=== PATIENT | female | born 1955 | race Caucasian/White ===

== ENCOUNTER → 2016-09-28 | Outpatient (REF) | payer OTHER ==
[~2016-09-28] MED LIST: /ADVA50050 INH; /METO25TA PO; /ONDA4TA OR; /PANT40TA PO; /VERA12TA PO; ABIL15TA OR; ABIL15TA PO; ABIL15TA2 PO; ABIL5TAB PO; ABIL5TAB5 PO; ACET-654 PO; ACET65TA OR; ALAV10TA PO; ALAV10TA10 PO; ALBU17IN INH; ALBU17IN2 INH; ALBU83IN IN; ALBU83IN INH; ALBUTEROL INH; ALDA25TA2 OR; ALDA25TA2 PO; ALDA50TA2 PO; ALPR0.5T3 OR; AMAR1TAB PO; AMBI10TA PO; AMBI5TAB OR; APRESOLINE PO; ASMA1AER3 INH; ASPI81CH32 PO; ASPI81TA45 OR; ASPI81TA7 PO; ATROVENT0.02% INH; BACIDCA PO; BACITAB PO; BACITAB3 PO; BACT2CRE EX; CALA120T2 OR; CALA120T2 PO; CALA180T PO; CALCCHW12 OR; CALCD50TA PO; CEPHULAC PO; CIPR500T4 OR; CLAR10CA3 PO; CLAR5CHW OR; CLON0.5T PO; CLOTR1CR TOP; COLA100C2 OR; COMBIN INH; COMBVENT INH; DOCU10CA PO; DOXY100C PO; DULC10SU2 PR; EUCECRE3 TOP; FERR325T OR; FERR325T3 PO; FLEEENE4 PR; FLEX10TA2 PO; FLEXERIL PO; FLON0.05; FLUO10CA8 PO; FLUO20CA8 PO; FLUO40CA57 PO; FLUT22IN INH; GABA-279 PO; GABA-283 PO; GABA300C3 PO; GLIM2TA PO; GLUC1INJ11 SC; GLUC4CHW PO; INSUDET SC; JANU100T PO; JANUVIA PO; K-TA10TA2 PO; KEFL500C OR; KEFL500C7 PO; KLON0.5T PO; KLOR1TAB69 PO; LACT10SO29 PO; LACT20EL PO; LASI20TA PO; LASI40TA OR; LASI40TA PO; LASI80TA PO; LEVA500T PO; LEVO25TA5 PO; LEVO50TA45 PO; LEVO750T33 PO; LIDO1DIS2 TD; LIPI20TA PO; LISI20TA5 OR; LORT1TAB2 PO; LOVE1INJ SC; MAGN400C PO; MAGN400C2 PO; MAGN64TASA PO; MENEST OR; MENEST PO; MICR10CA PO; MILKSUS OR; MILKSUS PO; MIRA33504 PO; MIRALEX PO; MORP10SO OR; MS C15TA5 OR; NEUR600T OR; NYAM10003 EXT; NYST10006 TOP; NYSTATIN POWDER TOP; NYSTATIN TOP; OMEP20TA7 OR; OXYC10TA12 OR; PERC5TAB6 PO; POTA20TA PO; PRIL20CA OR; PRIL20CA PO; PROA1AER INH; PROAAER INH; PROT1TAB2 PO; PROZ10CA PO; PROZ20CA OR; PROZ40CA PO; RANI300T PO; ROZEREM PO; SENO8.6T10 PO; SPIR50TA2 PO; STRI1AER2 INH; SYNT25TA PO; TIOT18INH INH; TIZA2CAP3 PO; TOUJ1.2I SC; TRAM50TA2 PO; TYLE325T5 PO; TYLE325T5 PR; TYLE500T78 PO; TYLE650T30 PO; ULTR50TA PO; VERA120C PO; VERA120T OR; VERA1TAB10 PO; VICODINES TAB OR; VITA100066 PO; VITA100T OR; VITA20008 PO; VITAMIN D50000 UNT OR; XANA0.5T OR; XIFA550T PO; XOPEAER INH; Xifaxan PO; ZANA2CAP PO; ZANA4CAP OR; ZANAFLEX PO; ZANT300T PO; ZOFR20TA PO; [UNRECOGNIZED DRUG - CODE] PO; [UNRECOGNIZED DRUG - CODE] TOP; [UNRECOGNIZED DRUG - CODE] TOP; [UNRECOGNIZED DRUG - OTHER] IV; [UNRECOGNIZED DRUG - OTHER] PO; [UNRECOGNIZED DRUG - OTHER] PO; [UNRECOGNIZED DRUG - SUPPLY]; cephulac PO; mycostatin TOP
[2016-09-28 15:54] LABS: ALBUMIN 2.8 GM/DL (3.2-5.2); ALBUMIN/GLOBULIN RATIO 0.56 (1.00-1.93); BILIRUBIN,TOTAL 0.9 MG/DL (0.2-1.0); CALCIUM LEVEL 8.8 MG/DL (8.8-10.2); CREATININE FOR GFR 1.07 MG/DL (0.55-1.02); FREE T4 1.24 NG/DL (0.76-1.46); GLOMERULAR FILTRATION RATE 55.5 (>45); MAGNESIUM LEVEL 1.6 MG/DL (1.8-2.4); PERCENT SATURATION 37.7 % (13.2-37.4); POTASSIUM SERUM 3.6 MEQ/L (3.5-5.1); TOTAL PROTEIN 7.8 GM/DL (6.4-8.2)
== END ==
LOC: M SFHCPLAZ 12:56
PROVIDERS: ATTEND Family Medicine
DX: I50.30 Unspecified diastolic (congestive) heart failure (principal); D50.8 Other iron deficiency anemias; E03.9 Hypothyroidism, unspecified

== ENCOUNTER 2016-10-11 22:31 | Emergency (ER) | payer OTHER ==
[~2016-10-11 22:31] MED LIST changes: +FLUO40CA PO; -FLUO40CA57 PO; +PRIL20CA9 PO
[2016-10-11] MEDS ORDERED: NORCO, ANEXSIA 5/325MG TABLET (HYDROcodone/ACETAMINOPHEN) As Ordered ONE (23:58)
[2016-10-12 00:41] LABS: BASO % 0.8 % (0.0-1.0); EOS # 0.2 K/mm3 (0.0-0.50); EOS % 2.9 % (0.0-3.0); LARGE UNSTAINED CELL # 0.2 K/mm3 (0.0-0.4); LARGE UNSTAINED CELL % 4.1 % (0.0-4.0); LYMPH # 1.5 K/mm3 (1.5-4.5); LYMPH % 25.3 % (24.0-44.0); MEAN CORPUSCULAR HEMOGLOBIN 27.7 pg (27.0-33.0); MEAN CORPUSCULAR HGB CONC 31.9 g/dl (32.0-36.5); MEAN CORPUSCULAR VOLUME 86.9 fl (80.0-96.0); MONO # 0.3 K/mm3 (0.0-0.8); MONO % 5.6 % (0.0-5.0); NEUTROPHILS # 3.6 K/mm3 (1.8-7.7); NEUTROPHILS % 61.3 % (36.0-66.0); PLATELET COUNT, AUTOMATED 182 k/mm3 (150-450); RED CELL DISTRIBUTION WIDTH 15.1 % (11.5-14.5); WHITE BLOOD COUNT 5.8 K/mm3 (4.0-10.0)
[2016-10-12 01:07] LABS: CALCIUM LEVEL 8.7 MG/DL (8.8-10.2); CREATININE FOR GFR 1.31 MG/DL (0.55-1.02); GLOMERULAR FILTRATION RATE 43.8 (>45); POTASSIUM SERUM 4.3 MEQ/L (3.5-5.1)
[2016-10-12] MEDS ORDERED: NITROFURANTOIN (MACROBID) 100 MG CAP As Ordered ONE (01:22)
--- NOTE | 2016-10-12 01:31 | EDDOCDS ---
Physician Documentation [facility] Name: Pat Klein Age: 61 yrs Sex: Female : 1955 Arrival Date: 10/11/2016 Time: 22:31 Bed I3 / M3 Private MD: Paul Torres Disposition: 10/12/16 01:20 Discharged to Home/Self Care. Impression: Contusion of left front wall of thorax - Rib Contusion, Urinary tract infection, site not specified. - Condition is Stable. - Discharge Instructions: Rib Contusion, Urinary Tract Infection, Prax-ug-Vomr. - Prescriptions for Macrobid 100 mg Oral Capsule - take 100 milligram by ORAL route every 12 hours for 10 days; 20 capsule. - Medication Reconciliation, Local Pharmacy Hours form. - Follow up: Paul Torres; When: 1 - 2 days; Reason: Recheck today's complaints, Continuance of care. Follow up: Emergency Department; Reason: Worsening of conditions. - Problem is new. - Symptoms have improved. Historical: - Allergies: Ciprofloxacin HCl; Ibuprofen; QUINOLONES; - Home Meds: 1. Aldactone 50 mg Oral tab 1 tab once daily 2. lactulose 10 gram/15 mL (15 mL) Oral soln 30 mL twice a day 3. Lasix 40 mg Oral tab 1 tab once daily 4. levothyroxine 50 mcg Oral tab 1 tab once daily 5. metoprolol succinate 50 mg Tb24 1 tab once daily 6. oxycodone-acetaminophen 7.5-325 mg Oral tab 1 tab for Pain 7. pantoprazole 40 mg oral TbEC 1 tab once daily 8. potassium chloride 10 mEq Oral cpER 2 caps four times a day 9. Prozac 20 mg Oral cap 3 caps once daily 10. Toujeo SoloStar 300 unit/mL (1.5 mL) subcutaneous inpn 17 unit daily 11. magnesium oxide 400 mg Oral cap twice a day - PMHx: Anemia; Anxiety; Chronic Back pain; chronic hip pain-right; COPD; Diabetes - IDDM: controlled; GERD; hepatic encephalopathy; Hypertension; Hypothyroidism; Venous Inssufficiency; - PSHx: Hysterectomy; - Social history: Smoking status: Patient states was never smoker of tobacco. No barriers to communication noted, The patient speaks fluent Lithuanian. - Family history: Not pertinent. - : The pt / caregiver states he / she is not on anticoagulants. Home medication list is obtained from the patient. - Exposure Risk Screening:: None identified. Vital Signs: 10/11 22:34 BP 111 / 56; Pulse 53; Resp 18 S; Temp 97.9(O); Pulse Ox 100% on R/A; Weight 115.21 kg gr2 / 253.99 lbs (R); Height 5 ft. 3 in. (160.02 cm) (R); Pain 9/10; 10/12 01:18 BP 118 / 57; Pulse 50; Resp 18; Temp 97.9; Pulse Ox 99% ; Pain 6/10; jlm 01:29 Pain 3/10; slm 10/11 22:34 Body Mass Index 44.99 (115.21 kg, 160.02 cm) gr2 MDM: 10/11 23:55 HYDROcodone-acetaminophen 5 mg-325 mg 2 tabs PO once ordered. mo1 23:56 CBC with Diff Ordered. EDMS 23:56 BMP Ordered. EDMS 23:56 UA Ordered. EDMS 23:57 Rib Unilat W/PA Chest Only Ordered. EDMS 10/12 00:31 Financial registration complete. [facility] 00:42 [facility] Payment Agreement was scanned into [employer] and attached to record. [facility] 00:44 CBC with Diff Reviewed. mo1 01:14 BMP Reviewed. ef1 01:14 UA Reviewed. ef1 01:20 Nitrofurantoin 100 mg PO once ordered. ef1 Administered Medications: 00:15 Drug: HYDROcodone-acetaminophen 2 tabs [hydrocodone 5 mg-acetaminophen 325 mg tablet (2 slm tabs)] Route: PO; 01:29 Follow up: Pain 3/10 Adult slm 01:29 Drug: Nitrofurantoin 100 mg Route: PO; slm Signatures: Dispatcher [employer] EDMS Genoveva Crystal PA-C PAKimberly ef1 Harpreet Lozano PA PA mo1 Tali Freeman LPN LPN slm [place], Sandra [facility] Glenny CrowderRN RN tm5 The chart was reviewed and I authenticate all verbal orders and agree with the evaluation and treatment provided.Attachments: 00:42 [facility] Payment Agreement [facility] MTDD
--- NOTE | 2016-10-12 01:31 | EDDOCDS ---
Nurse's Notes [facility] Name: Pat Klein Age: 61 yrs Sex: Female : 1955 Arrival Date: 10/11/2016 Time: 22:31 Bed I3 / M3 Private MD: Paul Torres Diagnosis: Contusion of left front wall of thorax-Rib Contusion;Urinary tract infection, site not specified Presentation: 10/11 22:41 Presenting complaint: Patient states: per pt she tripped & fell on 10/05/16, states pain tm5 to her neck, left shoulder & left ribs isn't getting any better, called her PCP today & she was told to come to ER for X-rays, denies LOC with fall. Adult Sepsis Screening: The patient does not have new or worsening altered mentation. Patient's respiratory rate is less than 22. Systolic blood pressure is greater than 100. Patient has a qSOFA score of 0- Negative Sepsis Screen. Suicide/Homicide risk assessment- the patient denies having any suicidal and/or homicidal ideations and does not present with any other emotional, behavioral or mental health complaints. Status: Patient is not a public health service officer or dependent. Transition of care: patient was not received from another setting of care. 22:41 Acuity: ANAND Level 4 tm5 22:41 Method Of Arrival: Wheelchair tm5 Triage Assessment: 22:45 General: Appears in no apparent distress, Behavior is appropriate for age, cooperative. tm5 Pain: Location: left shoulder, left ribs & neck Pain currently is 8 out of 10 on a pain scale. Quality of pain is described as aching. Pt Declines HIV testing. Neurological: Level of Consciousness is awake, alert, Oriented to person, place, time. Respiratory: Airway is patent Respiratory effort is even, unlabored, Respiratory pattern is regular, symmetrical. Derm: Skin is pink, warm & dry. normal. Musculoskeletal: Reports pain in posterior aspect of left shoulder. Injury Description: pt fell from standing. Historical: - Allergies: Ciprofloxacin HCl; Ibuprofen; QUINOLONES; - Home Meds: 1. Aldactone 50 mg Oral tab 1 tab once daily 2. lactulose 10 gram/15 mL (15 mL) Oral soln 30 mL twice a day 3. Lasix 40 mg Oral tab 1 tab once daily 4. levothyroxine 50 mcg Oral tab 1 tab once daily 5. metoprolol succinate 50 mg Tb24 1 tab once daily 6. oxycodone-acetaminophen 7.5-325 mg Oral tab 1 tab for Pain 7. pantoprazole 40 mg oral TbEC 1 tab once daily 8. potassium chloride 10 mEq Oral cpER 2 caps four times a day 9. Prozac 20 mg Oral cap 3 caps once daily 10. Toujeo SoloStar 300 unit/mL (1.5 mL) subcutaneous inpn 17 unit daily 11. magnesium oxide 400 mg Oral cap twice a day - PMHx: Anemia; Anxiety; Chronic Back pain; chronic hip pain-right; COPD; Diabetes - IDDM: controlled; GERD; hepatic encephalopathy; Hypertension; Hypothyroidism; Venous Inssufficiency; - PSHx: Hysterectomy; - Social history: Smoking status: Patient states was never smoker of tobacco. No barriers to communication noted, The patient speaks fluent Filipino. - Family history: Not pertinent. - : The pt / caregiver states he / she is not on anticoagulants. Home medication list is obtained from the patient. - Exposure Risk Screening:: None identified. Screenin:34 Infection Control. gr2 22:46 Screening information is obtained from the patient. Fall risk: At risk due to prior tm5 history of falls. Assistance ADL's: requires no assistance with activities of daily living. Abuse/DV Screen: The patient / caregiver reports he/she is: not in a situation that causes fear, pain or injury. Nutritional screening: No deficits noted. Advance Directives: Currently, there is a health care proxy, Anahi Ng. home support is adequate. Assessment: 10/12 00:35 General: Appears in no apparent distress, comfortable, Behavior is appropriate for age. af2 Neurological: Level of Consciousness is awake, alert. Respiratory: Airway is patent Respiratory effort is even, unlabored. Derm: Skin is pink, warm & dry. Musculoskeletal: Reports pain in left arm and posterior aspect of left shoulder. 01:29 Reassessment: Patient appears in no apparent distress at this time. Patient states slm symptoms have improved. Vital Signs: 10/11 22:34 BP 111 / 56; Pulse 53; Resp 18 S; Temp 97.9(O); Pulse Ox 100% on R/A; Weight 115.21 kg gr2 (R); Height 5 ft. 3 in. (160.02 cm) (R); Pain 9/10; 10/12 01:18 BP 118 / 57; Pulse 50; Resp 18; Temp 97.9; Pulse Ox 99% ; Pain 6/10; jlm 01:29 Pain 3/10; slm 10/11 22:34 Body Mass Index 44.99 (115.21 kg, 160.02 cm) gr2 Vitals: 10/11 22:34 Log In Time: October 11, 2016 at 22:34. gr2 ED Course: 22:33 Patient visited by Kayla Rivero. gr2 22:33 Paul Torres MD is Private Physician. gr2 22:33 Patient moved to Waiting gr2 22:37 Patient visited by Kayla Rivero. gr2 22:37 Patient moved to Pre RCE gr2 22:43 Triage Initiated tm5 22:45 Family accompanied patient. tm5 23:43 Patient moved to I3 / M3 nn1 23:44 Harpreet Lozano PA is PHCP. mo1 23:44 Chaim Hawk DO is Attending Physician. mo1 23:56 Patient visited by Harpreet Lozano PA. mo1 10/12 00:36 Patient visited by Stormy Viveros RN. af2 00:36 No IV's were initiated during this patient's visit. No procedures done that require af2 assistance. 00:36 UA Sent. af2 00:36 BMP Sent. af2 00:36 CBC with Diff Sent. af2 00:38 Tali Freeman LPN is Primary Nurse. slm 00:38 Patient visited by Tali Freeman LPN. slm 00:38 Labs drawn. (by ED staff). Sent per order to lab. Urine collected. Urine specimen sent slm to lab. 00:42 [facility] Payment Agreement was scanned into [employer] and attached to record. sl 00:44 PHCP role handed off by Harpreet Lozano PA ef1 00:44 Genoveva Crystal PA-C is PHCP. ef1 01:00 Patient visited by Genoveva Crystal PA-C. ef1 01:19 Patient visited by Diamond Lundberg, Seed Cleaner. jlm 01:20 Paul Torres MD is Referral Physician. ef1 01:30 Patient visited by Tali Freeman LPN. slm 01:30 The patient / caregiver is instructed regarding the plan of care and ED course. Patient slm has correct armband on for positive identification. Bed in low position. Call light in reach. Side rails up X 1. Administered Medications: 00:15 Drug: HYDROcodone-acetaminophen 2 tabs [hydrocodone 5 mg-acetaminophen 325 mg tablet (2 slm tabs)] Route: PO; :29 Follow up: Pain 11/30 Adult [facility] 01:29 Drug: Nitrofurantoin 100 mg Route: PO; [facility] Order Results: Lab Order: CBC with Diff; SPEC'M 10/12/16 00:23 Test: WHITE BLOOD COUNT; Value: 5.8; Range: 4.0-10.0; Units: K/mm3; Status: F Test: RED BLOOD COUNT; Value: 4.74; Range: 4.00-5.40; Units: M/mm3; Status: F Test: HEMOGLOBIN; Value: 13.2; Range: 12.0-16.0; Units: g/dl; Status: F Test: HEMATOCRIT; Value: 41.2; Range: 36.0-47.0; Units: %; Status: F Test: MEAN CORPUSCULAR VOLUME; Value: 86.9; Range: 80.0-96.0; Units: fl; Status: F Test: MEAN CORPUSCULAR HEMOGLOBIN; Value: 27.7; Range: 27.0-33.0; Units: pg; Status: F Test: MEAN CORPUSCULAR HGB CONC; Value: 31.9; Range: 32.0-36.5; Abnormal: Below low normal; Units: g/dl; Status: F Test: RED CELL DISTRIBUTION WIDTH; Value: 15.1; Range: 11.5-14.5; Abnormal: Above high normal; Units: %; Status: F Test: PLATELET COUNT, AUTOMATED; Value: 182; Range: 150-450; Units: k/mm3; Status: F Test: NEUTROPHILS %; Value: 61.3; Range: 36.0-66.0; Units: %; Status: F Test: LYMPH %; Value: 25.3; Range: 24.0-44.0; Units: %; Status: F Test: MONO %; Value: 5.6; Range: 0.0-5.0; Abnormal: Above high normal; Units: %; Status: F Test: EOS %; Value: 2.9; Range: 0.0-3.0; Units: %; Status: F Test: BASO %; Value: 0.8; Range: 0.0-1.0; Units: %; Status: F Test: LARGE UNSTAINED CELL %; Value: 4.1; Range: 0.0-4.0; Abnormal: Above high normal; Units: %; Status: F Test: NEUTROPHILS #; Value: 3.6; Range: 1.8-7.7; Units: K/mm3; Status: F Test: LYMPH #; Value: 1.5; Range: 1.5-4.5; Units: K/mm3; Status: F Test: MONO #; Value: 0.3; Range: 0.0-0.8; Units: K/mm3; Status: F Test: EOS #; Value: 0.2; Range: 0.0-0.50; Units: K/mm3; Status: F Test: BASO #; Value: 0.0; Range: 0.0-0.2; Units: K/mm3; Status: F Test: LARGE UNSTAINED CELL #; Value: 0.2; Range: 0.0-0.4; Units: K/mm3; Status: F Lab Order: [facility]; SPEC'M 10/12/16 00:23 Test: GLUCOSE, FASTING; Value: 103; Range: 80-110; Units: MG/DL; Status: F Test: BLOOD UREA NITROGEN; Value: 16; Range: 7-18; Units: MG/DL; Status: F Test: CREATININE FOR GFR; Value: 1.31; Range: 0.55-1.02; Abnormal: Above high normal; Units: MG/DL; Status: F Test: GLOMERULAR FILTRATION RATE; Value: 43.8; Range: >45; Abnormal: Below low normal; Status: F Test: SODIUM LEVEL; Value: 136; Range: 136-145; Units: MEQ/L; Status: F Test: POTASSIUM SERUM; Value: 4.3; Range: 3.5-5.1; Units: MEQ/L; Status: F Test: CHLORIDE LEVEL; Value: 99; Range: 98-107; Units: MEQ/L; Status: F Test: CARBON DIOXIDE LEVEL; Value: 29; Range: 21-32; Units: MEQ/L; Status: F Test: ANION GAP; Value: 8; Range: 8-16; Units: MEQ/L; Status: F Test: CALCIUM LEVEL; Value: 8.7; Range: 8.8-10.2; Abnormal: Below low normal; Units: MG/DL; Status: F Test Note: ; Units are mL/min/1.73 m2 Chronic Kidney Disease Staging per NKF: Stage I & II GFR >=60 Normal to Mildly Decreased Stage III GFR 30-59 Moderately Decreased Stage IV GFR 15-29 Severely Decreased Stage V GFR <15 Very Little GFR Left ESRD GFR <15 on MILLING MACHINE OPERATOR GEAR Lab Order: UA; SPEC'M 10/12/16 00:15 Test: APPEARANCE, URINE; Value: CLEAR; Range: CLEAR; Status: F Test: COLOR, URINE; Value: YELLOW; Range: YELLOW; Status: F Test: PH,URINE; Value: 6.0; Range: 5.0-9.0; Units: UNITS; Status: F Test: SPECIFIC GRAVITY URINE AUTO; Value: 1.010; Range: 1.002-1.035; Status: F Test: PROTEIN, URINE AUTO; Value: NEGATIVE; Range: NEGATIVE; Units: mg/dL; Status: F Test: GLUCOSE, URINE (UA) AUTO; Value: NEGATIVE; Range: NEGATIVE; Units: mg/dL; Status: F Test: KETONE, URINE AUTO; Value: NEGATIVE; Range: NEGATIVE; Units: mg/dL; Status: F Test: UROBILINOGEN, URINE AUTO; Value: 0.2; Range: 0.0-2.0; Units: mg/dL; Status: F Test: BILIRUBIN, URINE AUTO; Value: NEGATIVE; Range: NEGATIVE; Status: F Test: NITRITE, URINE AUTO; Value: NEGATIVE; Range: NEGATIVE; Status: F Test: LEUKOCYTE ESTERASE, URINE AUTO; Value: TRACE; Range: NEGATIVE; Abnormal: Above high normal; Status: F Test: BLOOD, URINE BLOOD; Value: NEGATIVE; Range: NEGATIVE; Status: F Test: WBC, URINE AUTO; Value: 4; Range: 0-3; Abnormal: Above high normal; Units: /HPF; Status: F Test: RBC, URINE AUTO; Value: 0; Range: 0-3; Units: /HPF; Status: F Test: BACTERIA, URINE AUTO; Value: 2+; Range: NEGATIVE; Abnormal: Above high normal; Status: F Test: SQUAMOUS EPITHELIAL CELL UR AU; Value: 2; Range: 0-6; Units: /HPF; Status: F Test: HYALINE CAST, URINE AUTO; Value: 0; Range: 0-1; Units: /LPF; Status: F Outcome: 01:20 Discharge ordered by Provider. ef1 01:29 Discharge Assessment: Patient awake, alert and oriented x 3. No cognitive and/or slm functional deficits noted. Patient verbalized understanding of disposition instructions. Patient awake and alert. patient administered narcotics - yes. Pt provided with safe discharge. Discharge Assessment:. The following High Risk Discharge criteria are identified: None. Condition: good. Discharge instructions given to patient, Instructed on discharge instructions, follow up and referral plans. medication usage, Demonstrated understanding of instructions, medications, Pt was receptive of discharge instructions/ teaching. Prescriptions given X 1. No special radiology studies were completed. Property :Personal belongings accompany Pt. 01:30 Patient left the ED. slm Signatures: Genoveva Crystal PA-C PAKimberly ef1 Kayla Rivero gr2 Harpreet Lozano PA PA mo1 Tali Freeman,JOHAN WEB UI DEVELOPER Diamond Hinkle, Seed Cleaner Unit Melissa Hough Stormy PelayoRN RN af2 Emma RudolphRN RN nn1 Glenny Crowedr,RN RN tm5 MTDD
--- NOTE | 2016-10-12 01:54 | REP ---
Clinical: Trauma. Technique: Frontal view of the chest with multiple views of the left hemithorax. Findings: Frontal view of the chest demonstrates no acute cardiopulmonary process. Multiple views of the left hemithorax demonstrates no obvious acute rib fracture or pathology. Impression: Normal left rib series Signed by Juan Duckworth MD 10/12/2016 01:45 A
--- NOTE | 2016-10-14 02:31 | EDDOCDS ---
Nurse's Notes [facility] Name: Pat Klein Age: 61 yrs Sex: Female : 1955 Arrival Date: 10/11/2016 Time: 22:31 Bed I3 / M3 Private MD: Paul Torres Diagnosis: Contusion of left front wall of thorax-Rib Contusion;Urinary tract infection, site not specified Presentation: 10/11 22:41 Presenting complaint: Patient states: per pt she tripped & fell on 10/05/16, states pain tm5 to her neck, left shoulder & left ribs isn't getting any better, called her PCP today & she was told to come to ER for X-rays, denies LOC with fall. Adult Sepsis Screening: The patient does not have new or worsening altered mentation. Patient's respiratory rate is less than 22. Systolic blood pressure is greater than 100. Patient has a qSOFA score of 0- Negative Sepsis Screen. Suicide/Homicide risk assessment- the patient denies having any suicidal and/or homicidal ideations and does not present with any other emotional, behavioral or mental health complaints. Status: Patient is not a social services analyst or dependent. Transition of care: patient was not received from another setting of care. 22:41 Acuity: ANAND Level 4 tm5 22:41 Method Of Arrival: Wheelchair tm5 Triage Assessment: 22:45 General: Appears in no apparent distress, Behavior is appropriate for age, cooperative. tm5 Pain: Location: left shoulder, left ribs & neck Pain currently is 8 out of 10 on a pain scale. Quality of pain is described as aching. Pt Declines HIV testing. Neurological: Level of Consciousness is awake, alert, Oriented to person, place, time. Respiratory: Airway is patent Respiratory effort is even, unlabored, Respiratory pattern is regular, symmetrical. Derm: Skin is pink, warm & dry. normal. Musculoskeletal: Reports pain in posterior aspect of left shoulder. Injury Description: pt fell from standing. Historical: - Allergies: Ciprofloxacin HCl; Ibuprofen; QUINOLONES; - Home Meds: 1. Aldactone 50 mg Oral tab 1 tab once daily 2. lactulose 10 gram/15 mL (15 mL) Oral soln 30 mL twice a day 3. Lasix 40 mg Oral tab 1 tab once daily 4. levothyroxine 50 mcg Oral tab 1 tab once daily 5. metoprolol succinate 50 mg Tb24 1 tab once daily 6. oxycodone-acetaminophen 7.5-325 mg Oral tab 1 tab for Pain 7. pantoprazole 40 mg oral TbEC 1 tab once daily 8. potassium chloride 10 mEq Oral cpER 2 caps four times a day 9. Prozac 20 mg Oral cap 3 caps once daily 10. Toujeo SoloStar 300 unit/mL (1.5 mL) subcutaneous inpn 17 unit daily 11. magnesium oxide 400 mg Oral cap twice a day - PMHx: Anemia; Anxiety; Chronic Back pain; chronic hip pain-right; COPD; Diabetes - IDDM: controlled; GERD; hepatic encephalopathy; Hypertension; Hypothyroidism; Venous Inssufficiency; - PSHx: Hysterectomy; - Social history: Smoking status: Patient states was never smoker of tobacco. No barriers to communication noted, The patient speaks fluent Albanian. - Family history: Not pertinent. - : The pt / caregiver states he / she is not on anticoagulants. Home medication list is obtained from the patient. - Exposure Risk Screening:: None identified. Screenin:34 Infection Control. gr2 22:46 Screening information is obtained from the patient. Fall risk: At risk due to prior tm5 history of falls. Assistance ADL's: requires no assistance with activities of daily living. Abuse/DV Screen: The patient / caregiver reports he/she is: not in a situation that causes fear, pain or injury. Nutritional screening: No deficits noted. Advance Directives: Currently, there is a health care proxy, Anahi Ng. home support is adequate. Assessment: 10/12 00:35 General: Appears in no apparent distress, comfortable, Behavior is appropriate for age. af2 Neurological: Level of Consciousness is awake, alert. Respiratory: Airway is patent Respiratory effort is even, unlabored. Derm: Skin is pink, warm & dry. Musculoskeletal: Reports pain in left arm and posterior aspect of left shoulder. 01:29 Reassessment: Patient appears in no apparent distress at this time. Patient states slm symptoms have improved. Vital Signs: 10/11 22:34 BP 111 / 56; Pulse 53; Resp 18 S; Temp 97.9(O); Pulse Ox 100% on R/A; Weight 115.21 kg gr2 (R); Height 5 ft. 3 in. (160.02 cm) (R); Pain 9/10; 10/12 01:18 BP 118 / 57; Pulse 50; Resp 18; Temp 97.9; Pulse Ox 99% ; Pain 6/10; jlm 01:29 Pain 3/10; slm 10/11 22:34 Body Mass Index 44.99 (115.21 kg, 160.02 cm) gr2 Vitals: 10/11 22:34 Log In Time: October 11, 2016 at 22:34. gr2 ED Course: 22:33 Patient visited by Kayla Rivero. gr2 22:33 Paul Torres MD is Private Physician. gr2 22:33 Patient moved to Waiting gr2 22:37 Patient visited by Kayla Rivero. gr2 22:37 Patient moved to Pre RCE gr2 22:43 Triage Initiated tm5 22:45 Family accompanied patient. tm5 23:43 Patient moved to I3 / M3 nn1 23:44 Harpreet Lozano PA is PHCP. mo1 23:44 Chaim Hawk DO is Attending Physician. mo1 23:56 Patient visited by Harpreet Lozano PA. mo1 10/12 00:36 Patient visited by Stormy Viveros RN. af2 00:36 No IV's were initiated during this patient's visit. No procedures done that require af2 assistance. 00:36 UA Sent. af2 00:36 BMP Sent. af2 00:36 CBC with Diff Sent. af2 00:38 Tali Freeman LPN is Primary Nurse. slm 00:38 Patient visited by Tali Freeman LPN. slm 00:38 Labs drawn. (by ED staff). Sent per order to lab. Urine collected. Urine specimen sent slm to lab. 00:42 [facility] [place] was [place] into [employer] and attached to record. sl 00:44 PHCP role handed off by Harpreet Lozano PA ef1 00:44 Genoveva Crystal PA-C is PHCP. ef1 01:00 Patient visited by Genoveva Crystal PA-C. ef1 01:19 Patient visited by Diamond Lundberg, Ophthalmic Lens Inspector. jlm 01:20 Paul Torres MD is Referral Physician. ef1 01:30 Patient visited by Tali Freeman LPN. slm 01:30 The patient / caregiver is instructed regarding the plan of care and ED course. Patient slm has correct armband on for positive identification. Bed in low position. Call light in reach. Side rails up X 1. 01:57 Rib Unilat W/PA Chest Only Returned. EDMS 09:57 T-Sheet-- Draft Copy was scanned into [employer] and attached to record. gb Administered Medications: 00:15 Drug: HYDROcodone-acetaminophen 2 tabs [hydrocodone 5 mg-acetaminophen 325 mg tablet (2 slm tabs)] Route: PO; 01:29 Follow up: Pain 11/30 Adult slm 01:29 Drug: Nitrofurantoin 100 mg Route: PO; slm Order Results: Lab Order: CBC with Diff; SPEC'M 10/12/16 00:23 Test: WHITE BLOOD COUNT; Value: 5.8; Range: 4.0-10.0; Units: K/mm3; Status: F Test: RED BLOOD COUNT; Value: 4.74; Range: 4.00-5.40; Units: M/mm3; Status: F Test: HEMOGLOBIN; Value: 13.2; Range: 12.0-16.0; Units: g/dl; Status: F Test: HEMATOCRIT; Value: 41.2; Range: 36.0-47.0; Units: %; Status: F Test: MEAN CORPUSCULAR VOLUME; Value: 86.9; Range: 80.0-96.0; Units: fl; Status: F Test: MEAN CORPUSCULAR HEMOGLOBIN; Value: 27.7; Range: 27.0-33.0; Units: pg; Status: F Test: MEAN CORPUSCULAR HGB CONC; Value: 31.9; Range: 32.0-36.5; Abnormal: Below low normal; Units: g/dl; Status: F Test: RED CELL DISTRIBUTION WIDTH; Value: 15.1; Range: 11.5-14.5; Abnormal: Above high normal; Units: %; Status: F Test: PLATELET COUNT, AUTOMATED; Value: 182; Range: 150-450; Units: k/mm3; Status: F Test: NEUTROPHILS %; Value: 61.3; Range: 36.0-66.0; Units: %; Status: F Test: LYMPH %; Value: 25.3; Range: 24.0-44.0; Units: %; Status: F Test: MONO %; Value: 5.6; Range: 0.0-5.0; Abnormal: Above high normal; Units: %; Status: F Test: EOS %; Value: 2.9; Range: 0.0-3.0; Units: %; Status: F Test: BASO %; Value: 0.8; Range: 0.0-1.0; Units: %; Status: F Test: LARGE UNSTAINED CELL %; Value: 4.1; Range: 0.0-4.0; Abnormal: Above high normal; Units: %; Status: F Test: NEUTROPHILS #; Value: 3.6; Range: 1.8-7.7; Units: K/mm3; Status: F Test: LYMPH #; Value: 1.5; Range: 1.5-4.5; Units: K/mm3; Status: F Test: MONO #; Value: 0.3; Range: 0.0-0.8; Units: K/mm3; Status: F Test: EOS #; Value: 0.2; Range: 0.0-0.50; Units: K/mm3; Status: F Test: BASO #; Value: 0.0; Range: 0.0-0.2; Units: K/mm3; Status: F Test: LARGE UNSTAINED CELL #; Value: 0.2; Range: 0.0-0.4; Units: K/mm3; Status: F Lab Order: [facility]; SPEC'M 10/12/16 00:23 Test: GLUCOSE, FASTING; Value: 103; Range: 80-110; Units: MG/DL; Status: F Test: BLOOD UREA NITROGEN; Value: 16; Range: 7-18; Units: MG/DL; Status: F Test: CREATININE FOR GFR; Value: 1.31; Range: 0.55-1.02; Abnormal: Above high normal; Units: MG/DL; Status: F Test: GLOMERULAR FILTRATION RATE; Value: 43.8; Range: >45; Abnormal: Below low normal; Status: F Test: SODIUM LEVEL; Value: 136; Range: 136-145; Units: MEQ/L; Status: F Test: POTASSIUM SERUM; Value: 4.3; Range: 3.5-5.1; Units: MEQ/L; Status: F Test: CHLORIDE LEVEL; Value: 99; Range: 98-107; Units: MEQ/L; Status: F Test: CARBON DIOXIDE LEVEL; Value: 29; Range: 21-32; Units: MEQ/L; Status: F Test: ANION GAP; Value: 8; Range: 8-16; Units: MEQ/L; Status: F Test: CALCIUM LEVEL; Value: 8.7; Range: 8.8-10.2; Abnormal: Below low normal; Units: MG/DL; Status: F Test Note: ; Units are mL/min/1.73 m2 Chronic Kidney Disease Staging per NKF: Stage I & II GFR >=60 Normal to Mildly Decreased Stage III GFR 30-59 Moderately Decreased Stage IV GFR 15-29 Severely Decreased Stage V GFR <15 Very Little GFR Left ESRD GFR <15 on [facility] TECHNICIAN Lab Order: UA; SPEC'M 10/12/16 00:15 Test: APPEARANCE, URINE; Value: CLEAR; Range: CLEAR; Status: F Test: COLOR, URINE; Value: YELLOW; Range: YELLOW; Status: F Test: PH,URINE; Value: 6.0; Range: 5.0-9.0; Units: UNITS; Status: F Test: SPECIFIC GRAVITY URINE AUTO; Value: 1.010; Range: 1.002-1.035; Status: F Test: PROTEIN, URINE AUTO; Value: NEGATIVE; Range: NEGATIVE; Units: mg/dL; Status: F Test: GLUCOSE, URINE (UA) AUTO; Value: NEGATIVE; Range: NEGATIVE; Units: mg/dL; Status: F Test: KETONE, URINE AUTO; Value: NEGATIVE; Range: NEGATIVE; Units: mg/dL; Status: F Test: UROBILINOGEN, URINE AUTO; Value: 0.2; Range: 0.0-2.0; Units: mg/dL; Status: F Test: BILIRUBIN, URINE AUTO; Value: NEGATIVE; Range: NEGATIVE; Status: F Test: NITRITE, URINE AUTO; Value: NEGATIVE; Range: NEGATIVE; Status: F Test: LEUKOCYTE ESTERASE, URINE AUTO; Value: TRACE; Range: NEGATIVE; Abnormal: Above high normal; Status: F Test: BLOOD, URINE BLOOD; Value: NEGATIVE; Range: NEGATIVE; Status: F Test: WBC, URINE AUTO; Value: 4; Range: 0-3; Abnormal: Above high normal; Units: /HPF; Status: F Test: RBC, URINE AUTO; Value: 0; Range: 0-3; Units: /HPF; Status: F Test: BACTERIA, URINE AUTO; Value: 2+; Range: NEGATIVE; Abnormal: Above high normal; Status: F Test: SQUAMOUS EPITHELIAL CELL UR AU; Value: 2; Range: 0-6; Units: /HPF; Status: F Test: HYALINE CAST, URINE AUTO; Value: 0; Range: 0-1; Units: /LPF; Status: F Radiology Order: Rib Unilat W/PA Chest Only Test: Rib Unilat W/PA Chest Only REASON FOR EXAMINATION: Trauma; Clinical: Trauma.; ; Technique: Frontal view of the chest with multiple views of the left; hemithorax.; ; Findings:; Frontal view of the chest demonstrates no acute cardiopulmonary process.; Multiple views of the left hemithorax demonstrates no obvious acute rib fracture; or pathology.; ; Impression:; Normal left rib series; ; ; Signed by; Juan Duckworth MD 10/12/2016 01:45 A; Outcome: 01:20 Discharge ordered by Provider. ef1 01:29 Discharge Assessment: Patient awake, alert and oriented x 3. No cognitive and/or slm functional deficits noted. Patient verbalized understanding of disposition instructions. Patient awake and alert. patient administered narcotics - yes. Pt provided with safe discharge. Discharge Assessment:. The following High Risk Discharge criteria are identified: None. Condition: good. Discharge instructions given to patient, Instructed on discharge instructions, follow up and referral plans. medication usage, Demonstrated understanding of instructions, medications, Pt was receptive of discharge instructions/ teaching. Prescriptions given X 1. No special radiology studies were completed. Property :Personal belongings accompany Pt. 01:30 Patient left the ED. slm Signatures: Dispatcher [employer] EDMS Deya Sahu, Tam Reg Genoveva Schaeffer PAMaheshC PAMaheshC ef1 Kayla Rivero gr2 Harpreet Lozano PA PA mo1 Tali Freeman,APARTMENT LEASING MANAGER APARTMENT LEASING MANAGER slDiamond Hinkle, Ophthalmic Lens Inspector Unit Melissa Hough Amber, RN RN af2 Emma Rudolph,RN RN nn1 Vel,Glenny,RN RN tm5 Chart Complete MTDD
--- NOTE | 2016-10-14 02:31 | EDDOCDS ---
Physician Documentation [facility] Name: Pat Klein Age: 61 yrs Sex: Female : 1955 Arrival Date: 10/11/2016 Time: 22:31 Bed I3 / M3 Private MD: Paul Torres Disposition: 10/12/16 01:20 Discharged to Home/Self Care. Impression: Contusion of left front wall of thorax - Rib Contusion, Urinary tract infection, site not specified. - Condition is Stable. - Discharge Instructions: Rib Contusion, Urinary Tract Infection, [id number]. - Prescriptions for Macrobid 100 mg Oral Capsule - take 100 milligram by ORAL route every 12 hours for 10 days; 20 capsule. - Medication Reconciliation, Local Pharmacy Hours form. - Follow up: Paul Torres; When: 1 - 2 days; Reason: Recheck today's complaints, Continuance of care. Follow up: Emergency Department; Reason: Worsening of conditions. - Problem is new. - Symptoms have improved. Historical: - Allergies: Ciprofloxacin HCl; Ibuprofen; QUINOLONES; - Home Meds: 1. Aldactone 50 mg Oral tab 1 tab once daily 2. lactulose 10 gram/15 mL (15 mL) Oral soln 30 mL twice a day 3. Lasix 40 mg Oral tab 1 tab once daily 4. levothyroxine 50 mcg Oral tab 1 tab once daily 5. metoprolol succinate 50 mg Tb24 1 tab once daily 6. oxycodone-acetaminophen 7.5-325 mg Oral tab 1 tab for Pain 7. pantoprazole 40 mg oral TbEC 1 tab once daily 8. potassium chloride 10 mEq Oral cpER 2 caps four times a day 9. Prozac 20 mg Oral cap 3 caps once daily 10. Toujeo SoloStar 300 unit/mL (1.5 mL) subcutaneous inpn 17 unit daily 11. magnesium oxide 400 mg Oral cap twice a day - PMHx: Anemia; Anxiety; Chronic Back pain; chronic hip pain-right; COPD; Diabetes - IDDM: controlled; GERD; hepatic encephalopathy; Hypertension; Hypothyroidism; Venous Inssufficiency; - PSHx: Hysterectomy; - Social history: Smoking status: Patient states was never smoker of tobacco. No barriers to communication noted, The patient speaks fluent Yoruba. - Family history: Not pertinent. - : The pt / caregiver states he / she is not on anticoagulants. Home medication list is obtained from the patient. - Exposure Risk Screening:: None identified. Vital Signs: 10/11 22:34 BP 111 / 56; Pulse 53; Resp 18 S; Temp 97.9(O); Pulse Ox 100% on R/A; Weight 115.21 kg gr2 / 253.99 lbs (R); Height 5 ft. 3 in. (160.02 cm) (R); Pain 9/10; 10/12 01:18 BP 118 / 57; Pulse 50; Resp 18; Temp 97.9; Pulse Ox 99% ; Pain 6/10; jlm 01:29 Pain 3/10; slm 10/11 22:34 Body Mass Index 44.99 (115.21 kg, 160.02 cm) gr2 MDM: 10/11 23:55 HYDROcodone-acetaminophen 5 mg-325 mg 2 tabs PO once ordered. mo1 23:56 CBC with Diff Ordered. EDMS 23:56 BMP Ordered. EDMS 23:56 UA Ordered. EDMS 23:57 Rib Unilat W/PA Chest Only Ordered. EDMS 10/12 00:31 Financial registration complete. slh 00:42 [place] [place] was [place] into [employer] and attached to record. slh 00:44 CBC with Diff Reviewed. mo1 01:14 BMP Reviewed. ef1 01:14 UA Reviewed. ef1 01:20 Nitrofurantoin 100 mg PO once ordered. ef1 09:57 T-Sheet-- Draft Copy was scanned into [employer] and attached to record. gb Administered Medications: 00:15 Drug: HYDROcodone-acetaminophen 2 tabs [hydrocodone 5 mg-acetaminophen 325 mg tablet (2 slm tabs)] Route: PO; 01:29 Follow up: Pain 3/10 Adult slm 01:29 Drug: Nitrofurantoin 100 mg Route: PO; slm Signatures: Dispatcher [employer] EDMS Deya Sahu, Genoveva Solares PA-C PA-C ef1 Harpreet Lozano PA PA mo1 Tali Freeman LPN LPN sl Melissa Blood [facility] Glenny Crowder,RN RN tm5 The chart was reviewed and I authenticate all verbal orders and agree with the evaluation and treatment provided.Attachments: 00:42 [facility] Payment Agreement [facility] 09:57 T-Sheet-- Draft Copy gb Chart Complete MTDD
--- NOTE | 2016-10-14 02:31 | EDDOCDS ---
Physician Documentation [facility] Name: Pat Klein Age: 61 yrs Sex: Female : 1955 Arrival Date: 10/11/2016 Time: 22:31 Bed I3 / M3 Private MD: Paul Torres Disposition: 10/12/16 01:20 Discharged to Home/Self Care. Impression: Contusion of left front wall of thorax - Rib Contusion, Urinary tract infection, site not specified. - Condition is Stable. - Discharge Instructions: Rib Contusion, Urinary Tract Infection, [id number]. - Prescriptions for Macrobid 100 mg Oral Capsule - take 100 milligram by ORAL route every 12 hours for 10 days; 20 capsule. - Medication Reconciliation, Local Pharmacy Hours form. - Follow up: Paul Torres; When: 1 - 2 days; Reason: Recheck today's complaints, Continuance of care. Follow up: Emergency Department; Reason: Worsening of conditions. - Problem is new. - Symptoms have improved. Historical: - Allergies: Ciprofloxacin HCl; Ibuprofen; QUINOLONES; - Home Meds: 1. Aldactone 50 mg Oral tab 1 tab once daily 2. lactulose 10 gram/15 mL (15 mL) Oral soln 30 mL twice a day 3. Lasix 40 mg Oral tab 1 tab once daily 4. levothyroxine 50 mcg Oral tab 1 tab once daily 5. metoprolol succinate 50 mg Tb24 1 tab once daily 6. oxycodone-acetaminophen 7.5-325 mg Oral tab 1 tab for Pain 7. pantoprazole 40 mg oral TbEC 1 tab once daily 8. potassium chloride 10 mEq Oral cpER 2 caps four times a day 9. Prozac 20 mg Oral cap 3 caps once daily 10. Toujeo SoloStar 300 unit/mL (1.5 mL) subcutaneous inpn 17 unit daily 11. magnesium oxide 400 mg Oral cap twice a day - PMHx: Anemia; Anxiety; Chronic Back pain; chronic hip pain-right; COPD; Diabetes - IDDM: controlled; GERD; hepatic encephalopathy; Hypertension; Hypothyroidism; Venous Inssufficiency; - PSHx: Hysterectomy; - Social history: Smoking status: Patient states was never smoker of tobacco. No barriers to communication noted, The patient speaks fluent Albanian. - Family history: Not pertinent. - : The pt / caregiver states he / she is not on anticoagulants. Home medication list is obtained from the patient. - Exposure Risk Screening:: None identified. Vital Signs: 10/11 22:34 BP 111 / 56; Pulse 53; Resp 18 S; Temp 97.9(O); Pulse Ox 100% on R/A; Weight 115.21 kg gr2 / 253.99 lbs (R); Height 5 ft. 3 in. (160.02 cm) (R); Pain 9/10; 10/12 01:18 BP 118 / 57; Pulse 50; Resp 18; Temp 97.9; Pulse Ox 99% ; Pain 6/10; jlm 01:29 Pain 3/10; slm 10/11 22:34 Body Mass Index 44.99 (115.21 kg, 160.02 cm) gr2 MDM: 10/11 23:55 HYDROcodone-acetaminophen 5 mg-325 mg 2 tabs PO once ordered. mo1 23:56 CBC with Diff Ordered. EDMS 23:56 BMP Ordered. EDMS 23:56 UA Ordered. EDMS 23:57 Rib Unilat W/PA Chest Only Ordered. EDMS 10/12 00:31 Financial registration complete. slh 00:42 [facility] [place] Payment Agreement was scanned into [employer] and attached to record. slh 00:44 CBC with Diff Reviewed. mo1 01:14 BMP Reviewed. ef1 01:14 UA Reviewed. ef1 01:20 Nitrofurantoin 100 mg PO once ordered. ef1 09:57 T-Sheet-- Draft Copy was scanned into [employer] and attached to record. gb Administered Medications: 00:15 Drug: HYDROcodone-acetaminophen 2 tabs [hydrocodone 5 mg-acetaminophen 325 mg tablet (2 slm tabs)] Route: PO; 01:29 Follow up: Pain 3/10 Adult slm 01:29 Drug: Nitrofurantoin 100 mg Route: PO; slm Signatures: Dispatcher [employer] EDMS Deya Sahu, Genoveva Solares PA-C PA-C ef1 Harpreet Lozano PA PA mo1 Tali Freeman LPN LPN sl Melissa Blood [facility] Glenny Crowder,RN RN tm5 The chart was reviewed and I authenticate all verbal orders and agree with the evaluation and treatment provided.Attachments: 00:42 [facility] Payment Agreement [facility] 09:57 T-Sheet-- Draft Copy gb Chart Complete MTDD
== END 2016-10-12 01:30 | disposition home or self-care (01) ==
LOC: M ED 22:31
DX: S20.219A Contusion of unspecified front wall of thorax, initial encounter (principal); W19.XXXA Unspecified fall, initial encounter; Y92.019 Unspecified place in single-family (private) house as the place of occurrence of the external cause; Y93.89 Activity, other specified; Y99.8 Other external cause status; N39.0 Urinary tract infection, site not specified; D64.9 Anemia, unspecified; F41.9 Anxiety disorder, unspecified; M54.9 Dorsalgia, unspecified; M25.551 Pain in right hip; J44.9 Chronic obstructive pulmonary disease, unspecified; E11.9 Type 2 diabetes mellitus without complications; K21.9 Gastro-esophageal reflux disease without esophagitis; I10 Essential (primary) hypertension; E03.9 Hypothyroidism, unspecified; I87.2 Venous insufficiency (chronic) (peripheral); Z79.899 Other long term (current) drug therapy; Z79.4 Long term (current) use of insulin; Z88.1 Allergy status to other antibiotic agents; Z88.6 Allergy status to analgesic agent

== ENCOUNTER 2016-10-15 02:18 | Inpatient (IN) | payer OTHER ==
[~2016-10-15] VITALS: Ht 160 cm; Wt 113.6 kg
[2016-10-15] MEDS ORDERED: MORPHINE 4 MG/ML 1ML SYRINGE As Ordered ONE (03:11)
[2016-10-15] MEDS ORDERED: TOPR50TA PO (05:58)
[2016-10-15] MEDS ORDERED: MAGN400T5 PO (05:58)
[2016-10-15] MEDS ORDERED: PROZ20CA11 PO (05:58)
[2016-10-15] MEDS ORDERED: K-TA10TA2 PO (05:58)
[2016-10-15] MEDS ORDERED: LEVO50TA5 PO (05:58)
[2016-10-15] MEDS ORDERED: LASI40TA PO (05:58)
[2016-10-15] MEDS ORDERED: TIZA4CAP3 PO (05:58)
[2016-10-15] MEDS ORDERED: TOUJ1.2I SC (05:58)
[2016-10-15] MEDS ORDERED: ALDA50TA2 PO (05:58)
[2016-10-15] MEDS ORDERED: GLUCOSE 4 GM CHEW TABLET PO PRN (06:15)
[2016-10-15] MEDS ORDERED: DEXTROSE 50% 50 ML SYRINGE IV PRN (06:15)
[2016-10-15] MEDS ORDERED: GLUCAGON FOR INJ 1 MG VIAL (J1610) SC PRN (06:15)
[2016-10-15] MEDS ORDERED: ONDANSETRON 4MG/2ML VIAL (J2405) IV PRN (06:15)
--- NOTE | 2016-10-15 06:48 | HPE ---
DATE OF ADMISSION: 10/15/2016 This is a patient of Dr. Paul Torres's as well as Dr. Worrell's. Chief complaint is "I fell." HISTORY OF PRESENT ILLNESS: This is a 61-year-old who has been feeling recently who was getting up off the toilet and her walker got stuck and she fell onto her right arm, which was fractured. She was brought to the hospital for evaluation. She had her arm splinted due to humeral fracture and was thought not to be able to use a walker safely at home where she lives alone and I was called for admission. 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 Past surgical history is notable for a total abdominal hysterectomy, bilateral salpingo-oophorectomy. Medications at home include: - Prozac 60 mg daily - Lasix 40 mg daily - lactulose 30 mg by mouth twice a day - Synthroid 50 mcg daily - magnesium oxide twice daily - metoprolol succinate 50 mg by mouth daily - Percocet 5/325 as needed for pain - Protonix 40 mg by mouth daily - potassium chloride 10 mEq by mouth twice a day - spironolactone 50 mg by mouth daily - tizanidine 4 mg by mouth three times a day - Toujeo SoloStar 17 units subcutaneous nightly She has ALLERGIES listed to IBUPROFEN and QUINOLONES. Socially, the patient lives independently. She is from [place]. She walks with a walker. Review of systems is notable for no headache, no visual changes, no runny nose, no sore throat. No neck pain. No chest pain. No shortness of breath. No orthopnea. No paroxysmal nocturnal dyspnea. No abdominal pain. She has alternating constipation and diarrhea. No focal weakness. She did have one seizure in 2011 of unknown etiology, although is unremarkable. On physical exam, blood pressure 140/74, pulse 46, respiratory rate 20, temperature 97.8, pulse oximetry 95% on room air. She is awake, appropriately interactive. Head is normocephalic. Pupils equal, round and react to light, anicteric, noninjected. Nasal septum is midline. Mucous membranes are tacky. Neck supple, thick. Breathing is symmetrical and rested. She is speaking in complete sentences. No accessory muscle use. No wheezes, rales or rhonchi. Heart is recovery room, is bradycardic with a rate of around 50 on my exam. Distal pulses 2+. Capillary refill is less than 2 seconds. Right arm is slinged. Abdomen is soft, doughy, nontender. There is no fluid wave. There is no significant lower extremity edema. She is moving lower extremities symmetrically. Facies are symmetrical. She has normal mood and affect. There are labs available for me to review, which include the following: White cell count 5.8, sodium 136, BUN 16, creatinine 1.31. Most recent hemoglobin A1c was 6.3. Though, these are labs from the . We will get new labs for today as it looks like she was in with a previous fall on the . There is no EKG for me to review. My assessment is as follows: This is a 61-year-old with right humeral fracture and will require a two midnight hospital stay. Plan will be as follows: 1. Ortho: Pain treatment will be Percocet for now. She has received some morphine in the emergency department. She may require more pain control but in the setting of cirrhosis we will be cautious. Ortho consult is deemed clinically indicated by the primary team. 2. Patient has history of congestive heart failure and hypertension. She is bradycardic. We will get an EKG, which will need to be reviewed this morning. We will put a hold parameters on her medications, including her metoprolol. Bradycardia could be a reason for fall, although this fall seems to be purely mechanical. 3. Patient has diabetes. Will be on sliding scale insulin. 4. Patient has cirrhosis with end-stage liver disease. 5. Patient has morbid obesity, which complicates care. 6. Deep venous thrombosis (DVT) prophylaxis will be heparin.
[2016-10-15 07:07] LABS: BASO % 0.3 % (0.0-1.0); EOS # 0.1 K/mm3 (0.0-0.50); LARGE UNSTAINED CELL # 0.2 K/mm3 (0.0-0.4); LARGE UNSTAINED CELL % 2.6 % (0.0-4.0); LYMPH # 0.8 K/mm3 (1.5-4.5); LYMPH % 10.7 % (24.0-44.0); MEAN CORPUSCULAR HEMOGLOBIN 28.3 pg (27.0-33.0); MEAN CORPUSCULAR HGB CONC 32.1 g/dl (32.0-36.5); MEAN CORPUSCULAR VOLUME 88.2 fl (80.0-96.0); MONO # 0.4 K/mm3 (0.0-0.8); MONO % 5.3 % (0.0-5.0); NEUTROPHILS # 6.3 K/mm3 (1.8-7.7); NEUTROPHILS % 80.1 % (36.0-66.0); PLATELET COUNT, AUTOMATED 163 k/mm3 (150-450); RED CELL DISTRIBUTION WIDTH 15.2 % (11.5-14.5); WHITE BLOOD COUNT 7.8 K/mm3 (4.0-10.0)
--- NOTE | 2016-10-15 07:25 | REP ---
Clinical: Trauma. Technique: AP, Y-view and lateral views of the right humerus. Findings: There is a transverse displaced fracture of the proximal humeral diaphysis. Degenerative changes at the acromioclavicular joint and elbow noted. Impression: Acute transverse displaced fracture at the proximal humeral diaphysis. Signed by Juan Duckworth MD 10/15/2016 07:16 A
[2016-10-15 07:33] LABS: ALBUMIN/GLOBULIN RATIO 0.54 (1.00-1.93); BILIRUBIN,TOTAL 0.7 MG/DL (0.2-1.0); CALCIUM LEVEL 9.1 MG/DL (8.8-10.2); CREATININE FOR GFR 1.27 MG/DL (0.55-1.02); GLOMERULAR FILTRATION RATE 45.4 (>45); POTASSIUM SERUM 4.2 MEQ/L (3.5-5.1); TOTAL PROTEIN 8.6 GM/DL (6.4-8.2)
[2016-10-15] MEDS ORDERED: PERCOCET 5MG/325MG TAB As Ordered ONE (07:44)
[2016-10-15 07:48] LABS: INR 1.14
--- NOTE | 2016-10-15 07:52 | EDDOCDS ---
Physician Documentation [facility] Name: Pat Klein Age: 61 yrs Sex: Female : 1955 Arrival Date: 10/15/2016 Time: 02:18 Bed 11 Private MD: Paul Torres Disposition: 10/15/16 05:29 Hospitalization ordered by Salvador Callejas for Inpatient Admission. Preliminary diagnosis are Limitation of activities due to disability, 2-part nondisplaced fracture of surgical neck of right humerus. - Bed requested for 4 [place]. - Status is Inpatient Admission. jmk - Condition is Stable. - Problem is new. - Symptoms are unchanged. Historical: - Allergies: Ciprofloxacin HCl; Ibuprofen; QUINOLONES; - Home Meds: 1. potassium chloride 15 mEq oral TbTQ 1 tab 4 times per day 2. Lasix 40 mg Oral tab 1 tab once daily 3. levothyroxine 50 mcg Oral tab 1 tab once daily 4. Aldactone 50 mg Oral tab 1 tab once daily 5. metoprolol succinate 50 mg Tb24 1 tab once daily 6. pantoprazole 40 mg oral TbEC 1 tab once daily 7. Prozac 20 mg Oral cap 3 caps once daily 8. lactulose 10 gram/15 mL (15 mL) Oral soln 30 mL twice a day 9. Toujeo SoloStar 300 unit/mL (1.5 mL) subcutaneous inpn 17 unit daily 10. oxycodone-acetaminophen 7.5-325 mg Oral tab 1 tab ran out today for Pain 11. magnesium oxide 400 mg Oral cap twice a day - PMHx: Anemia; Anxiety; Chronic Back pain; chronic hip pain-right; COPD; Diabetes - IDDM: controlled; GERD; hepatic encephalopathy; Hypertension; Hypothyroidism; Venous Inssufficiency; - PSHx: Hysterectomy; Cholecystectomy; - Social history: Smoking status: Patient states former smoker of tobacco. No barriers to communication noted, The patient speaks fluent [employer]. - Family history: Not pertinent. - : The pt / caregiver states he / she is not on anticoagulants. Home medication list is obtained from the patient, [employer] import data. - Exposure Risk Screening:: None identified. Vital Signs: 10/15 02:31 BP 129 / 65; Pulse 55; Resp 20; Temp 97.2(TE); Pulse Ox 99% on R/A; Weight 115.21 kg / thad 253.99 lbs (R); Height 5 ft. 3 in. (160.02 cm) (R); Pain 07/02; 03:17 Pulse 46 MON; Pulse Ox 98% ; mlc 03:44 Pulse 48 MON; Pulse Ox 95% ; mlc 03:44 BP 186 / 83 (auto/); mlc 03:45 Pulse 48 MON; Pulse Ox 98% ; mlc 03:49 BP 186 / 83; Pulse 49; Resp 20; Temp 97.8(TE); Pulse Ox 98% on R/A; Pain 06/02; thad 03:59 BP 132 / 73 (auto/); mlc 04:04 BP 104 / 52 (auto/); mlc 04:05 Pulse 50 MON; Pulse Ox 82% ; mlc 04:14 BP 98 / 54 (auto/); mlc 04:28 BP 90 / 51 (auto/); mlc 04:29 BP 90 / 52 (auto/); mlc 04:32 BP 92 / 51 (auto/); mlc 04:37 BP 89 / 50 (auto/); mlc 04:46 BP 143 / 60 (auto/); mlc 04:48 Pulse 46 MON; Pulse Ox 97% ; mlc 05:02 Pulse 48 MON; Pulse Ox 94% ; mlc 05:02 BP 120 / 57 (auto/); mlc 05:17 BP 140 / 74 (auto/); mlc 05:17 Pulse 46 MON; Pulse Ox 95% ; mlc 05:32 Pulse 46 MON; Pulse Ox 95% ; mlc 05:32 BP 148 / 72 (auto/); mlc 05:47 Pulse 48 MON; Pulse Ox 97% ; mlc 05:47 BP 146 / 70 (auto/); mlc 06:02 Pulse 48 MON; Pulse Ox 94% ; mlc 06:02 BP 157 / 74 (auto/); mlc 06:17 Pulse 48 MON; Pulse Ox 94% ; mlc 06:17 BP 165 / 74 (auto/); mlc 06:32 Pulse 48 MON; Pulse Ox 94% ; mlc 06:32 BP 144 / 65 (auto/); mlc 06:47 BP 111 / 55 (auto/); jmk 06:47 Pulse 50 MON; Pulse Ox 95% ; jmk 07:17 BP 188 / 84 (auto/); jmk 07:17 Pulse 48 MON; Pulse Ox 98% ; jmk 07:49 BP 154 / 69; Pulse 52; Resp 16; Temp 98.5; jmk 02:31 Body Mass Index 44.99 (115.21 kg, 160.02 cm) thad MDM: 02:45 morphine 4 mg IM once ordered. cs11 02:46 Humerus Ordered. EDMS 03:45 Shoulder Immobilizer ordered. cs11 04:38 Financial registration complete. [facility] 04:40 [facility] Payment Agreement was scanned into Numerous and attached to record. [facility] 05:30 CBC with Diff Ordered. EDMS 05:31 BED REQUEST+ADM ordered. EDMS 05:52 Admission / Observation Status ordered. EDMS 06:12 PHYSICAL THERAPY EVAL & TREAT ordered. EDMS 06:13 ELECTROCARDIOGRAM ADULT ordered. EDMS 06:13 CONSISTENT CARBOHYDRATES ordered. EDMS 06:13 COMPLETE COMPHRENSIVE METABOLI Ordered. EDMS 06:13 PROTHROMBIN TIME PROFILE\E\INR Ordered. EDMS 07:47 oxyCODONE-acetaminophen 5 mg-325 mg 1 tabs PO once ordered. tracey Administered Medications: 03:17 Drug: morphine 4 mg [morphine 4 mg/mL intravenous cartridge (1 mL)] Route: IM; Site: [facility] [place] left vastus lateralis; 07:48 Drug: oxyCODONE-acetaminophen 1 tabs [oxycodone-acetaminophen 5 mg-325 mg tablet (1 jmk tabs)] Route: PO; Signatures: Dispatcher [employer] EDMT Guido Pfeiffer,RN Valentín Melgar, DO DO cs11 Emily Mancera RN RN [facility] [place] [facility] J Luis Randhawa RN RN [facility] The chart was reviewed and I authenticate all verbal orders and agree with the evaluation and treatment provided.Corrections: (The following items were deleted from the chart) 06:55 05:30 BASIC METABOLIC PROFILE+LAB ordered. EDMS EDMS 06:55 06:13 COMPLETE BLOOD COUNT ordered. EDMS EDMS Attachments: 04:40 [facility] Payment Agreement [facility]
--- NOTE | 2016-10-15 07:52 | EDDOCDS ---
Nurse's Notes [facility] Name: Pat Klein Age: 61 yrs Sex: Female : 1955 Arrival Date: 10/15/2016 Time: 02:18 Bed 11 Private MD: Paul Torres Diagnosis: Limitation of activities due to disability;2-part nondisplaced fracture of surgical neck of right humerus Presentation: 10/15 02:26 Presenting complaint: EMS states: pt fell trying to get up from the toilet. hands mlc slipped from walker. right arm was trapped between door and walker. Adult Sepsis Screening: The patient does not have new or worsening altered mentation. Patient's respiratory rate is less than 22. Systolic blood pressure is greater than 100. Patient has a qSOFA score of 0- Negative Sepsis Screen. Suicide/Homicide risk assessment- the patient denies having any suicidal and/or homicidal ideations and does not present with any other emotional, behavioral or mental health complaints. Status: Patient is not a food service associate or dependent. Transition of care: patient was not received from another setting of care. 02:26 Acuity: ANAND Level 3 mlc 02:26 Method Of Arrival: Ambulance mlc Triage Assessment: 02:35 General: Appears uncomfortable, Behavior is cooperative. Pain: Location: anterior mlc aspect of right shoulder and right bicep Pain currently is 10 out of 10 on a pain scale. HIV screening NA for this visit Offered previously. The patient is triaged at the bedside. See Assessment in Nurses Notes section of ED record. Neurological: Level of Consciousness is awake, alert, obeys commands, Oriented to person, place, time. Respiratory: Airway is patent Respiratory effort is even, unlabored, Respiratory pattern is regular. Derm: Skin is normal. Musculoskeletal: Circulation, motion, and sensation intact Range of motion limited in right shoulder. Historical: - Allergies: Ciprofloxacin HCl; Ibuprofen; QUINOLONES; - Home Meds: 1. potassium chloride 15 mEq oral TbTQ 1 tab 4 times per day 2. Lasix 40 mg Oral tab 1 tab once daily 3. levothyroxine 50 mcg Oral tab 1 tab once daily 4. Aldactone 50 mg Oral tab 1 tab once daily 5. metoprolol succinate 50 mg Tb24 1 tab once daily 6. pantoprazole 40 mg oral TbEC 1 tab once daily 7. Prozac 20 mg Oral cap 3 caps once daily 8. lactulose 10 gram/15 mL (15 mL) Oral soln 30 mL twice a day 9. Toujeo SoloStar 300 unit/mL (1.5 mL) subcutaneous inpn 17 unit daily 10. oxycodone-acetaminophen 7.5-325 mg Oral tab 1 tab ran out today for Pain 11. magnesium oxide 400 mg Oral cap twice a day - PMHx: Anemia; Anxiety; Chronic Back pain; chronic hip pain-right; COPD; Diabetes - IDDM: controlled; GERD; hepatic encephalopathy; Hypertension; Hypothyroidism; Venous Inssufficiency; - PSHx: Hysterectomy; Cholecystectomy; - Social history: Smoking status: Patient states former smoker of tobacco. No barriers to communication noted, The patient speaks fluent Samoan. - Family history: Not pertinent. - : The pt / caregiver states he / she is not on anticoagulants. Home medication list is obtained from the patient, [employer] import data. - Exposure Risk Screening:: None identified. Screenin:24 Infection Control. ml3 02:37 Screening information is obtained from the patient. Fall risk: At risk due to prior mlc history of falls. Assistance ADL's: Requires assistance with meal preparation, this assistance is provided by family members, bathing, assistance is provided by family members, Home Health Aides, housework, assistance is provided by family members. Assistance ADL's: Requires assistance with medication administration, assistance is provided by family members. Abuse/DV Screen: The patient / caregiver reports he/she is: not in a situation that causes fear, pain or injury. Nutritional screening: No deficits noted. Advance Directives: Currently, there is a health care proxy, Anahi Ng, daughter. There is an active DNR order but there is no copy available at this time. home support is adequate. Assessment: 02:40 Reassessment: see triage assessment. mlc 03:18 General: Appears in no apparent distress, Behavior is cooperative, pt medicated per mlc order. resp easy/unlabored. . Derm: Bruising that is brown, green, on left knee. 04:07 General: Appears in no apparent distress, comfortable, Behavior is cooperative, pt able mlc to stand and sit in chair with staff assistance. . 04:52 General: pt resting back in bed, resp easy/unlabored. pt unsteady on feet while mlc pivoting back into bed. . 07:27 General: Appears Report has been recvd. Pt alert and oriented x 3. quietly resting in [facility] bed. Sling in place to right upper extremety. Pulse is intact STONE BANKER less than 2 sec. reports overall body aches. . awaiting admission/ bed avail.. 07:48 General: Appears medicated for 7-8/10 pain to right upper arm. Otherwise unchanged from [facility] prior note. Admitted. Vital Signs: 02:31 BP 129 / 65; Pulse 55; Resp 20; Temp 97.2(TE); Pulse Ox 99% on R/A; Weight 115.21 kg thad (R); Height 5 ft. 3 in. (160.02 cm) (R); Pain 10/10; 03:17 Pulse 46 MON; Pulse Ox 98% ; mlc 03:44 Pulse 48 MON; Pulse Ox 95% ; mlc 03:44 BP 186 / 83 (auto/); mlc 03:45 Pulse 48 MON; Pulse Ox 98% ; mlc 03:49 BP 186 / 83; Pulse 49; Resp 20; Temp 97.8(TE); Pulse Ox 98% on R/A; Pain 9/10; thad 03:59 BP 132 / 73 (auto/); mlc 04:04 BP 104 / 52 (auto/); mlc 04:05 Pulse 50 MON; Pulse Ox 82% ; mlc 04:14 BP 98 / 54 (auto/); mlc 04:28 BP 90 / 51 (auto/); mlc 04:29 BP 90 / 52 (auto/); mlc 04:32 BP 92 / 51 (auto/); mlc 04:37 BP 89 / 50 (auto/); mlc 04:46 BP 143 / 60 (auto/); mlc 04:48 Pulse 46 MON; Pulse Ox 97% ; mlc 05:02 Pulse 48 MON; Pulse Ox 94% ; mlc 05:02 BP 120 / 57 (auto/); mlc 05:17 BP 140 / 74 (auto/); mlc 05:17 Pulse 46 MON; Pulse Ox 95% ; mlc 05:32 Pulse 46 MON; Pulse Ox 95% ; mlc 05:32 BP 148 / 72 (auto/); mlc 05:47 Pulse 48 MON; Pulse Ox 97% ; mlc 05:47 BP 146 / 70 (auto/); mlc 06:02 Pulse 48 MON; Pulse Ox 94% ; mlc 06:02 BP 157 / 74 (auto/); mlc 06:17 Pulse 48 MON; Pulse Ox 94% ; mlc 06:17 BP 165 / 74 (auto/); mlc 06:32 Pulse 48 MON; Pulse Ox 94% ; mlc 06:32 BP 144 / 65 (auto/); mlc 06:47 BP 111 / 55 (auto/); jmk 06:47 Pulse 50 MON; Pulse Ox 95% ; jmk 07:17 BP 188 / 84 (auto/); jmk 07:17 Pulse 48 MON; Pulse Ox 98% ; jmk 07:49 BP 154 / 69; Pulse 52; Resp 16; Temp 98.5; jmk 02:31 Body Mass Index 44.99 (115.21 kg, 160.02 cm) thad Vitals: 02:35 Log In Time N/A - ambulance arrival. [facility] [place] Course: 02:19 Patient visited by Katie Joe, Tour Agent. ml3 02:19 Paul Torres MD is Private Physician. ml3 02:19 Patient moved to Waiting ml3 02:21 Emily Mancera RN is Primary Nurse. ml3 02:21 Patient moved to 11 ml3 02:31 Triage Initiated mlc 02:32 Patient visited by Clair Flores PCA. thad 02:32 Pt greeted and oriented to ED. Patient advised of names of staff involved in care, thad location of call bowser, wait times and NPO status. Patient has correct armband on for positive identification. Bed in low position. Call light in reach. Side rails up X2. Pulse ox on. NIBP on. 02:39 Patient visited by Emily Mancera RN. mlc 02:41 Valentín Mcdermott DO is Attending Physician. cs11 02:41 Patient visited by Valentín Mcdermott DO. cs11 02:47 Patient moved to Radiology maritza 03:17 The patient / caregiver is instructed regarding the plan of care and ED course. mlc 03:19 Patient visited by Emily Mancera RN. mlc 03:19 Patient moved to 11 mlc 03:46 Aron Berger is Referral Physician. cs11 03:49 Patient visited by Clair Flores PCA. thad 04:40 [facility] Payment Agreement was scanned into [email or web address] and attached to record. [facility] 04:51 Patient visited by Toño Van PCA. mdr 04:51 Diet: Patient given water. mdr 04:53 Patient visited by Emily Mancera RN. [facility] 05:27 Salvador Callejas MD is Hospitalizing Provider. cs11 07:07 Primary Nurse role handed off by Emily Mancera RN deg 07:29 Humerus Returned. EDMS 07:30 Patient visited by Guido Pfeiffer RN. jmk Administered Medications: 03:17 Drug: morphine 4 mg [morphine 4 mg/mL intravenous cartridge (1 mL)] Route: IM; [place] [facility] left vastus lateralis; 07:48 Drug: oxyCODONE-acetaminophen 1 tabs [oxycodone-acetaminophen 5 mg-325 mg tablet (1 jmk tabs)] Route: PO; Order Results: Lab Order: CBC with Diff; SPEC'M 10/15/16 06:48 Test: WHITE BLOOD COUNT; Value: 7.8; Range: 4.0-10.0; Units: K/mm3; Status: F Test: RED BLOOD COUNT; Value: 4.65; Range: 4.00-5.40; Units: M/mm3; Status: F Test: HEMOGLOBIN; Value: 13.2; Range: 12.0-16.0; Units: g/dl; Status: F Test: HEMATOCRIT; Value: 41.0; Range: 36.0-47.0; Units: %; Status: F Test: MEAN CORPUSCULAR VOLUME; Value: 88.2; Range: 80.0-96.0; Units: fl; Status: F Test: MEAN CORPUSCULAR HEMOGLOBIN; Value: 28.3; Range: 27.0-33.0; Units: pg; Status: F Test: MEAN CORPUSCULAR HGB CONC; Value: 32.1; Range: 32.0-36.5; Units: g/dl; Status: F Test: RED CELL DISTRIBUTION WIDTH; Value: 15.2; Range: 11.5-14.5; Abnormal: Above high normal; Units: %; Status: F Test: PLATELET COUNT, AUTOMATED; Value: 163; Range: 150-450; Units: k/mm3; Status: F Test: NEUTROPHILS %; Value: 80.1; Range: 36.0-66.0; Abnormal: Above high normal; Units: %; Status: F Test: LYMPH %; Value: 10.7; Range: 24.0-44.0; Abnormal: Below low normal; Units: %; Status: F Test: MONO %; Value: 5.3; Range: 0.0-5.0; Abnormal: Above high normal; Units: %; Status: F Test: EOS %; Value: 1.0; Range: 0.0-3.0; Units: %; Status: F Test: BASO %; Value: 0.3; Range: 0.0-1.0; Units: %; Status: F Test: LARGE UNSTAINED CELL %; Value: 2.6; Range: 0.0-4.0; Units: %; Status: F Test: NEUTROPHILS #; Value: 6.3; Range: 1.8-7.7; Units: K/mm3; Status: F Test: LYMPH #; Value: 0.8; Range: 1.5-4.5; Abnormal: Below low normal; Units: K/mm3; Status: F Test: MONO #; Value: 0.4; Range: 0.0-0.8; Units: K/mm3; Status: F Test: EOS #; Value: 0.1; Range: 0.0-0.50; Units: K/mm3; Status: F Test: BASO #; Value: 0.0; Range: 0.0-0.2; Units: K/mm3; Status: F Test: LARGE UNSTAINED CELL #; Value: 0.2; Range: 0.0-0.4; Units: K/mm3; Status: F Lab Order: COMPLETE COMPHRENSIVE METABOLI; SPEC'M 10/15/16 06:48 Test: GLUCOSE, FASTING; Value: 130; Range: 80-110; Abnormal: Above high normal; Units: MG/DL; Status: F Test: BLOOD UREA NITROGEN; Value: 18; Range: 7-18; Units: MG/DL; Status: F Test: CREATININE FOR GFR; Value: 1.27; Range: 0.55-1.02; Abnormal: Above high normal; Units: MG/DL; Status: F Test: GLOMERULAR FILTRATION RATE; Value: 45.4; Range: >45; Status: F Test: SODIUM LEVEL; Value: 138; Range: 136-145; Units: MEQ/L; Status: F Test: POTASSIUM SERUM; Value: 4.2; Range: 3.5-5.1; Units: MEQ/L; Status: F Test: CHLORIDE LEVEL; Value: 102; Range: 98-107; Units: MEQ/L; Status: F Test: CARBON DIOXIDE LEVEL; Value: 27; Range: 21-32; Units: MEQ/L; Status: F Test: ANION GAP; Value: 9; Range: 8-16; Units: MEQ/L; Status: F Test: CALCIUM LEVEL; Value: 9.1; Range: 8.8-10.2; Units: MG/DL; Status: F Test: AST/SGOT; Value: 36; Range: 15-37; Units: U/L; Status: F Test: ALT/SGPT; Value: 25; Range: 12-78; Units: U/L; Status: F Test: ALKALINE PHOSPHATASE; Value: 107; Range: 45-117; Units: U/L; Status: F Test: BILIRUBIN,TOTAL; Value: 0.7; Range: 0.2-1.0; Units: MG/DL; Status: F Test: TOTAL PROTEIN; Value: 8.6; Range: 6.4-8.2; Abnormal: Above high normal; Units: GM/DL; Status: F Test: ALBUMIN; Value: 3.0; Range: 3.2-5.2; Abnormal: Below low normal; Units: GM/DL; Status: F Test: ALBUMIN/GLOBULIN RATIO; Value: 0.54; Range: 1.00-1.93; Abnormal: Below low normal; Status: F Test Note: ; Units are mL/min/1.73 m2 Chronic Kidney Disease Staging per NKF: Stage I & II GFR >=60 Normal to Mildly Decreased Stage III GFR 30-59 Moderately Decreased Stage IV GFR 15-29 Severely Decreased Stage V GFR <15 Very Little GFR Left ESRD GFR <15 on DEPARTMENT MGR Lab Order: PROTHROMBIN TIME PROFILE\E\INR; SPEC'M 10/15/16 07:07 Test: PROTHROMBIN TIME; Value: 14.7; Range: 12.3-14.5; Abnormal: Above high normal; Units: SECONDS; Status: F Test: INR; Value: 1.14; Status: F Test Note: ; THERAPUTIC HUMAN INR VALUES INDICATIONS NORMAL RANGES PROPHYLAXIS/TREATMENT OF: VENOUS THROMBOSIS 2.0-3.0 PULMONARY EMBOLISM 2.0-3.0 PREVENTION OF SYSTEMIC EMBOLISM FROM: TISSUE HEART VALVES 2.0-3.0 ACUTE MYOCARDIAL INFARCTION 2.0-3.0 VALVULAR HEART DISEASE 2.0-3.0 ATRIAL FIBRILLATION 2.0-3.0 MECHANICAL VALVES(HIGH RISK) 2.5-3.5 RECURRENT MYOCARDIAL INFARCTION 2.5-3.5 Radiology Order: Humerus Test: Humerus REASON FOR EXAMINATION: Trauma; Clinical: Trauma.; ; Technique: AP, Y-view and lateral views of the right humerus.; ; Findings:; There is a transverse displaced fracture of the proximal humeral diaphysis.; Degenerative changes at the acromioclavicular joint and elbow noted.; ; Impression:; Acute transverse displaced fracture at the proximal humeral diaphysis.; ; ; Signed by; Juan Duckworth MD 10/15/2016 07:16 A; Outcome: 03:46 Discharge ordered by Provider. 11 05:29 Decision to Hospitalize by Provider. 11 07:49 Discharge Assessment: Patient awake, alert and oriented x 3. No cognitive and/or jmk functional deficits noted. Patient verbalized understanding of disposition instructions. patient administered narcotics - yes. Patient was admitted to the hospital or transferred to another facility. Admitted to Med/Surg accompanied by tech, via stretcher, with chart. The following High Risk Discharge criteria are identified: None. Condition: unchanged. No special radiology studies were completed. Admission hand-off: Report Faxed Fax receipt verified by laury PEARSON. Property :Personal belongings accompany Pt. 07:52 Patient left the ED. tracey Signatures: Dispatcher [employer] EDMS Nadia Orourke, Tour Agent Unit deg Guido Pfeiffer RN RN jmk Bartlett, Floyd fab Lopresti, Mary-Elizabeth, Tour Agent Unit ml3 Clair Flores, WEAVING PROFESSOR WEAVING PROFESSOR Valentín Garza, DO cs11 Emily Mancera RN RN mlc Hook, Sandra slh Rick, Mitchell, WEAVING PROFESSOR WEAVING PROFESSOR amy Corrections: (The following items were deleted from the chart) 07:49 07:27 General: Appears Report has been recvd. Pt alert and oriented x 3. quietly jmk resting in bed. Sling in place to right upper extremety. Pulse is intact STONE BANKER less than 2 sec. reports overall body aches. monitor is sr without ectopy. awaiting admission/ bed avail.. tracey MTDD
[2016-10-15 08:10] VITALS: BP 184/98
[2016-10-15] MEDS: METOPROLOL SUCC (TopROL XL) 50MG **XL** TAB PO SCH (08:25)
[2016-10-15] MEDS: FLUoxetine 20 MG CAP PO SCH (10:36)
[2016-10-15] MEDS: LACTULOSE 20 GM/30 ML SYRUP UD PO SCH ×2 (10:36→20:37)
[2016-10-15] MEDS: HEPARIN SOD (PORCINE) 5000 UNITS/ML VIAL SC SCH ×2 (10:37→20:38)
[2016-10-15] MEDS: HumaLOG INSULIN (NovoLOG) PER UNIT SC SCH ×4 (10:37→21:00)
[2016-10-15] MEDS: POTASSIUM CHLORIDE 10 MEQ SR TABLET PO SCH ×2 (10:38→20:38)
[2016-10-15] MEDS: FUROSEMIDE 40 MG TAB PO SCH (10:38)
[2016-10-15] MEDS: SPIRONOLACTONE 50 MG TAB PO SCH (10:38)
[2016-10-15] MEDS: MAGNESIUM OXIDE 400 MG TAB (MAG-OX) PO SCH ×2 (10:38→20:37)
[2016-10-15] MEDS: LEVOTHYROXINE 0.05 MG TAB (50 MCG) PO SCH (10:38)
[2016-10-15] MEDS: PANTOPRAZOLE 40MG TAB (PROTONIX) PO SCH (10:39)
[2016-10-15] MEDS: tiZANidine 4 MG TAB PO SCH ×3 (10:39→20:38)
--- NOTE | 2016-10-15 11:51 | IPNPDOC ---
Assessment/Plan Date Seen The patient was seen on 10/15/16. Family Medicine Attending Note: Patient seen and examined. I d/w LUIS Keith and I agree with her note below. Ortho consult pending and patient will likely need PT consult to evaluate whether she will be able to be discharged home. Problems Problems: (1) Right humeral fracture Status: Acute Response to Treatment: Stable Problem Specific Plan: Consult Specialist, Monitor Clinically Problem Text: I have placed a call to Dr Larson, orthopedist patient relations representative. Await a return call. Admitted d/t inability to ambulate with a walker with her R humerus fracture (2) Morbid obesity with BMI of 50.0-59.9, adult Status: Chronic Response to Treatment: Stable Problem Specific Plan: Monitor Clinically (3) End stage liver disease Status: Chronic Response to Treatment: Improving Problem Specific Plan: Monitor Clinically Problem Text: Cont home meds. (4) T2DM (type 2 diabetes mellitus) Status: Chronic Response to Treatment: Improving Problem Specific Plan: Monitor Clinically Problem Text: Cont home meds, also on SSI. (5) Accident due to mechanical fall without injury Status: Acute Problem Specific Plan: Monitor Clinically Problem Text: Fell while in [place]. Plan / VTE VTE Prophylaxis Ordered?: Yes Subjective Review of Systems CC/HPI Pt c/o R arm pain, she is discouraged this morning about her current situation. General: Denies: Fatigue Constitutional: Denies: Chills, Fever ENT: Denies: Head Aches Pulmonary: Denies: Cough, Dyspnea Cardiovascular: Denies: Chest Pain, Palpitations Gastrointestinal: Denies: Diarrhea, Nausea, Vomiting Neurological: Denies: Weakness Psych: Reports: Mood Normal Objective Physical Examination General Exam: Positive: Alert, No Acute Distress ENT Exam: Positive: Mucous membr. moist/pink Chest Exam: Positive: Clear to auscultation, Normal air movement Heart Exam: Positive: Normal S1, Normal S2, Rate Normal Abdomen Exam: Positive: Normal bowel sounds, Soft, Negative: Tenderness Extremity Exam: Positive: Other (R arm in sling), Negative: Edema (chronic venous insuff changes) Vital Signs/I&O Vital Signs Date Time Temp Pulse Resp B/P Pulse Ox O2 Delivery O2 Flow Rate FiO2 10/15/16 08:25 50 Laboratory Data Labs 24H Laboratory Tests 2 10/15/16 06:48: Blood Urea Nitrogen 18, Creatinine 1.27H, Sodium Level 138, Potassium Level 4.2 , Chloride Level 102, Carbon Dioxide Level 27, Calcium Level 9.1, Aspartate Amino Transf (AST/SGOT) 36, Alanine Aminotransferase (ALT/SGPT) 25, Alkaline Phosphatase 107, Total Bilirubin 0.7, Total Protein 8.6H, Albumin 3.0L, Albumin/ Globulin Ratio 0.54L, Anion Gap 9, White Blood Count 7.8, Red Blood Count 4.65, Hemoglobin 13.2, Hematocrit 41.0, Mean Corpuscular Volume 88.2, Mean Corpuscular Hemoglobin 28.3, Mean Corpuscular Hemoglobin Concent 32.1, Red Cell Distribution Width 15.2H, Platelet Count 163, Neutrophils (%) (Auto) 80.1H, Lymphocytes (%) (Auto) 10.7L, Monocytes (%) (Auto) 5.3H, Eosinophils (%) (Auto) 1.0, Basophils (%) (Auto) 0.3, Neutrophils # (Auto) 6.3, Lymphocytes # (Auto) 0.8L, Monocytes # (Auto) 0.4, Eosinophils # (Auto) 0.1, Basophils # (Auto) 0.0, Glomerular Filtration Rate 45.4, Large Unclassified Cells # 0.2, Large Unclassified Cells % 2.6 10/15/16 07:07: Prothromb Time International Ratio 1.14, Prothrombin Time 14.7H CBC/BMP Laboratory Tests 10/15/16 06:48 Calcium Level 9.1, Aspartate Amino Transf (AST/SGOT) 36, Alanine Aminotransferase (ALT/SGPT) 25, Alkaline Phosphatase 107, Total Bilirubin 0.7, Total Protein 8.6 H, Albumin 3.0 L, Red Blood Count 4.65, Mean Corpuscular Volume 88.2, Mean Corpuscular Hemoglobin 28.3, Mean Corpuscular Hemoglobin Concent 32.1, Red Cell Distribution Width 15.2 H, Neutrophils (%) (Auto) 80.1 H , Lymphocytes (%) (Auto) 10.7 L, Monocytes (%) (Auto) 5.3 H, Eosinophils (%) ( Auto) 1.0, Basophils (%) (Auto) 0.3, Neutrophils # (Auto) 6.3, Lymphocytes # ( Auto) 0.8 L, Monocytes # (Auto) 0.4, Eosinophils # (Auto) 0.1, Basophils # (Auto ) 0.0 TUNG MONTAÑO PA-C Oct 15, 2016 11:51 FRANCINE LUCAS MD Oct 15, 2016 19:18
[2016-10-15 14:00] VITALS: BP 101/59
[2016-10-15] MEDS: PERCOCET 5MG/325MG TAB PO PRN (17:13)
[2016-10-15 22:00] VITALS: BP 118/56
[2016-10-16] MEDS: LEVOTHYROXINE 0.05 MG TAB (50 MCG) PO SCH (05:47)
[2016-10-16] MEDS: PERCOCET 5MG/325MG TAB PO PRN ×4 (05:47→21:03)
[2016-10-16 06:00] VITALS: BP 136/63
[2016-10-16] MEDS: HumaLOG INSULIN (NovoLOG) PER UNIT SC SCH ×4 (07:30→20:57)
[2016-10-16] MEDS: METOPROLOL SUCC (TopROL XL) 50MG **XL** TAB PO SCH (09:31)
[2016-10-16] MEDS: tiZANidine 4 MG TAB PO SCH ×3 (09:31→21:03)
[2016-10-16] MEDS: PANTOPRAZOLE 40MG TAB (PROTONIX) PO SCH (09:32)
[2016-10-16] MEDS: HEPARIN SOD (PORCINE) 5000 UNITS/ML VIAL SC SCH ×2 (09:32→21:04)
[2016-10-16] MEDS: SPIRONOLACTONE 50 MG TAB PO SCH (09:32)
[2016-10-16] MEDS: FLUoxetine 20 MG CAP PO SCH (09:32)
[2016-10-16] MEDS: POTASSIUM CHLORIDE 10 MEQ SR TABLET PO SCH ×2 (09:32→21:03)
[2016-10-16] MEDS: LACTULOSE 20 GM/30 ML SYRUP UD PO SCH ×2 (09:32→21:02)
[2016-10-16] MEDS: MAGNESIUM OXIDE 400 MG TAB (MAG-OX) PO SCH ×2 (09:32→21:02)
[2016-10-16] MEDS: FUROSEMIDE 40 MG TAB PO SCH (09:33)
--- NOTE | 2016-10-16 10:29 | IPNPDOC ---
Assessment/Plan Date Seen The patient was seen on 10/16/16. Problems Problems: (1) Right humeral fracture Status: Acute Response to Treatment: Stable Problem Specific Plan: Consult Specialist, Monitor Clinically Problem Text: 10/15 I have placed a call to Dr Larson, orthopedist electronic induction hardener. Await a return call. Admitted d/t inability to ambulate with a walker with her R humerus fracture 10/16- ortho recommends sling, with NWB of RUE, can use HemiCane. F/u with Ortho in 7 -10 days (2) Morbid obesity with BMI of 50.0-59.9, adult Status: Chronic Response to Treatment: Stable Problem Specific Plan: Monitor Clinically (3) End stage liver disease Status: Chronic Response to Treatment: Improving Problem Specific Plan: Monitor Clinically Problem Text: Cont home meds. (4) T2DM (type 2 diabetes mellitus) Status: Chronic Response to Treatment: Improving Problem Specific Plan: Monitor Clinically Problem Text: Cont home meds, also on SSI. (5) Accident due to mechanical fall without injury Status: Acute Problem Specific Plan: Monitor Clinically Problem Text: Fell while [place]. Plan / VTE VTE Prophylaxis Ordered?: Yes Subjective Review of Systems CC/HPI Pt without new concerns. Pain is reasonable controlled. she is otherwise doing well. Ortho has seen her recommended sling and f/u in 7-10 days in the office. General: Denies: Fatigue Constitutional: Denies: Chills, Fever Pulmonary: Denies: Cough, Dyspnea Cardiovascular: Denies: Chest Pain, Palpitations Gastrointestinal: Denies: Diarrhea, Nausea, Vomiting Musculoskeletal: Denies: Neck Pain Neurological: Denies: Weakness Psych: Reports: Mood Normal Objective Physical Examination General Exam: Positive: Alert, No Acute Distress ENT Exam: Positive: Mucous membr. moist/pink Chest Exam: Positive: Clear to auscultation, Normal air movement Heart Exam: Positive: Normal S1, Normal S2, Rate Normal Abdomen Exam: Positive: Normal bowel sounds, Soft, Negative: Tenderness Extremity Exam: Positive: Other (R arm in sling), Negative: Edema (chronic venous insuff changes) Vital Signs/I&O Vital Signs Date Time Temp Pulse Resp B/P Pulse Ox O2 Delivery O2 Flow Rate FiO2 10/16/16 10:24 20 10/16/16 09:31 55 104/62 10/16/16 06:00 98.0 95 Room Air I&O- Last 24 Hours up to 6 AM 10/16/16 06:00 Intake Total 1680 ml Output Total 1600 ml Balance 80 ml Laboratory Data Labs 24H Laboratory Tests 2 10/15/16 12:12: Bedside Glucose (Misc Panel) 122H 10/15/16 16:35: Bedside Glucose (Misc Panel) 138H 10/15/16 20:51: Bedside Glucose (Misc Panel) 140H 10/16/16 06:37: Bedside Glucose (Misc Panel) 108 FSBS Laboratory Tests Test 10/15/16 12:12 10/15/16 16:35 10/15/16 20:51 10/16/16 06:37 Range/Units Bedside Glucose (Misc Panel) 122 138 140 108 80-115 MG/DL TUNG MONTAÑO PA-C Oct 16, 2016 10:29 Paul Torres M.D. Oct 16, 2016 17:53
[2016-10-16 14:00] VITALS: BP 105/53
[2016-10-16 22:00] VITALS: BP 118/57
[2016-10-17] MEDS: PERCOCET 5MG/325MG TAB PO PRN ×4 (03:10→18:53)
[2016-10-17] MEDS: LEVOTHYROXINE 0.05 MG TAB (50 MCG) PO SCH (05:36)
[2016-10-17 06:00] VITALS: BP 124/80
--- NOTE | 2016-10-17 08:52 | EDDOCDS ---
Physician Documentation [facility] Name: Pat Klein Age: 61 yrs Sex: Female : 1955 Arrival Date: 10/15/2016 Time: 02:18 Bed 11 Private MD: Paul Torres Disposition: 10/15/16 05:29 Hospitalization ordered by Salvador Callejas for Inpatient Admission. Preliminary diagnosis are Limitation of activities due to disability, 2-part nondisplaced fracture of surgical neck of right humerus. - Bed requested for 4 [place]. - Status is Inpatient Admission. jmk - Condition is Stable. - Problem is new. - Symptoms are unchanged. Historical: - Allergies: Ciprofloxacin HCl; Ibuprofen; QUINOLONES; - Home Meds: 1. potassium chloride 15 mEq oral TbTQ 1 tab 4 times per day 2. Lasix 40 mg Oral tab 1 tab once daily 3. levothyroxine 50 mcg Oral tab 1 tab once daily 4. Aldactone 50 mg Oral tab 1 tab once daily 5. metoprolol succinate 50 mg Tb24 1 tab once daily 6. pantoprazole 40 mg oral TbEC 1 tab once daily 7. Prozac 20 mg Oral cap 3 caps once daily 8. lactulose 10 gram/15 mL (15 mL) Oral soln 30 mL twice a day 9. Toujeo SoloStar 300 unit/mL (1.5 mL) subcutaneous inpn 17 unit daily 10. oxycodone-acetaminophen 7.5-325 mg Oral tab 1 tab ran out today for Pain 11. magnesium oxide 400 mg Oral cap twice a day - PMHx: Anemia; Anxiety; Chronic Back pain; chronic hip pain-right; COPD; Diabetes - IDDM: controlled; GERD; hepatic encephalopathy; Hypertension; Hypothyroidism; Venous Inssufficiency; - PSHx: Hysterectomy; Cholecystectomy; - Social history: Smoking status: Patient states former smoker of tobacco. No barriers to communication noted, The patient speaks fluent Irish. - Family history: Not pertinent. - : The pt / caregiver states he / she is not on anticoagulants. Home medication list is obtained from the patient, [employer] import data. - Exposure Risk Screening:: None identified. Vital Signs: 10/15 02:31 BP 129 / 65; Pulse 55; Resp 20; Temp 97.2(TE); Pulse Ox 99% on R/A; Weight 115.21 kg / thad 253.99 lbs (R); Height 5 ft. 3 in. (160.02 cm) (R); Pain 07/02; 03:17 Pulse 46 MON; Pulse Ox 98% ; mlc 03:44 Pulse 48 MON; Pulse Ox 95% ; mlc 03:44 BP 186 / 83 (auto/); mlc 03:45 Pulse 48 MON; Pulse Ox 98% ; mlc 03:49 BP 186 / 83; Pulse 49; Resp 20; Temp 97.8(TE); Pulse Ox 98% on R/A; Pain 06/02; thad 03:59 BP 132 / 73 (auto/); mlc 04:04 BP 104 / 52 (auto/); mlc 04:05 Pulse 50 MON; Pulse Ox 82% ; mlc 04:14 BP 98 / 54 (auto/); mlc 04:28 BP 90 / 51 (auto/); mlc 04:29 BP 90 / 52 (auto/); mlc 04:32 BP 92 / 51 (auto/); mlc 04:37 BP 89 / 50 (auto/); mlc 04:46 BP 143 / 60 (auto/); mlc 04:48 Pulse 46 MON; Pulse Ox 97% ; mlc 05:02 Pulse 48 MON; Pulse Ox 94% ; mlc 05:02 BP 120 / 57 (auto/); mlc 05:17 BP 140 / 74 (auto/); mlc 05:17 Pulse 46 MON; Pulse Ox 95% ; mlc 05:32 Pulse 46 MON; Pulse Ox 95% ; mlc 05:32 BP 148 / 72 (auto/); mlc 05:47 Pulse 48 MON; Pulse Ox 97% ; mlc 05:47 BP 146 / 70 (auto/); mlc 06:02 Pulse 48 MON; Pulse Ox 94% ; mlc 06:02 BP 157 / 74 (auto/); mlc 06:17 Pulse 48 MON; Pulse Ox 94% ; mlc 06:17 BP 165 / 74 (auto/); mlc 06:32 Pulse 48 MON; Pulse Ox 94% ; mlc 06:32 BP 144 / 65 (auto/); mlc 06:47 BP 111 / 55 (auto/); jmk 06:47 Pulse 50 MON; Pulse Ox 95% ; jmk 07:17 BP 188 / 84 (auto/); jmk 07:17 Pulse 48 MON; Pulse Ox 98% ; jmk 07:49 BP 154 / 69; Pulse 52; Resp 16; Temp 98.5; jmk 02:31 Body Mass Index 44.99 (115.21 kg, 160.02 cm) thad MDM: 02:45 morphine 4 mg IM once ordered. cs11 02:46 Humerus Ordered. EDMS 03:45 Shoulder Immobilizer ordered. cs11 04:38 Financial registration complete. [facility] 04:40 [facility] Payment Agreement was scanned into [employer] and attached to record. [facility] 05:30 CBC with Diff Ordered. EDMS 05:31 BED REQUEST+ADM ordered. EDMS 05:52 Admission / Observation Status ordered. EDMS 06:12 PHYSICAL THERAPY EVAL & TREAT ordered. EDMS 06:13 ELECTROCARDIOGRAM ADULT ordered. EDMS 06:13 CONSISTENT CARBOHYDRATES ordered. EDMS 06:13 COMPLETE COMPHRENSIVE METABOLI Ordered. EDMS 06:13 PROTHROMBIN TIME PROFILE\E\INR Ordered. EDMS 07:47 oxyCODONE-acetaminophen 5 mg-325 mg 1 tabs PO once ordered. [facility] 14:14 T-Sheet-- Draft Copy was scanned into [employer] and attached to record. gb Administered Medications: 03:17 Drug: morphine 4 mg [morphine 4 mg/mL intravenous cartridge (1 mL)] Route: IM; [place] [facility] [place]; 07:48 Drug: oxyCODONE-acetaminophen 1 tabs [oxycodone-acetaminophen 5 mg-325 mg tablet (1 jmk tabs)] Route: PO; Signatures: Dispatcher [employer] EDMS Guido Pfeiffer RN RN Deya Herrera, Reg Reg gb Valentín Mcdermott, DO DO cs11 Emily Mancera RN RN [facility] Melissa Blood [facility] J Luis Randhawa RN RN [facility] The chart was reviewed and I authenticate all verbal orders and agree with the evaluation and treatment provided.Corrections: (The following items were deleted from the chart) 06:55 05:30 BASIC METABOLIC PROFILE+LAB ordered. EDMS EDMS 06:55 06:13 COMPLETE BLOOD COUNT ordered. EDMS EDMS Attachments: 04:40 [facility] Payment Agreement [facility] 14:14 T-Sheet-- Draft Copy gb Chart Complete MTDD
--- NOTE | 2016-10-17 08:52 | EDDOCDS ---
Physician Documentation [facility] Name: Pat Klein Age: 61 yrs Sex: Female : 1955 Arrival Date: 10/15/2016 Time: 02:18 Bed 11 Private MD: Paul Torres Disposition: 10/15/16 05:29 Hospitalization ordered by Salvador Callejas for Inpatient Admission. Preliminary diagnosis are Limitation of activities due to disability, 2-part nondisplaced fracture of surgical neck of right humerus. - Bed requested for 4 [place]. - Status is Inpatient Admission. jmk - Condition is Stable. - Problem is new. - Symptoms are unchanged. Historical: - Allergies: Ciprofloxacin HCl; Ibuprofen; QUINOLONES; - Home Meds: 1. potassium chloride 15 mEq oral TbTQ 1 tab 4 times per day 2. Lasix 40 mg Oral tab 1 tab once daily 3. levothyroxine 50 mcg Oral tab 1 tab once daily 4. Aldactone 50 mg Oral tab 1 tab once daily 5. metoprolol succinate 50 mg Tb24 1 tab once daily 6. pantoprazole 40 mg oral TbEC 1 tab once daily 7. Prozac 20 mg Oral cap 3 caps once daily 8. lactulose 10 gram/15 mL (15 mL) Oral soln 30 mL twice a day 9. Toujeo SoloStar 300 unit/mL (1.5 mL) subcutaneous inpn 17 unit daily 10. oxycodone-acetaminophen 7.5-325 mg Oral tab 1 tab ran out today for Pain 11. magnesium oxide 400 mg Oral cap twice a day - PMHx: Anemia; Anxiety; Chronic Back pain; chronic hip pain-right; COPD; Diabetes - IDDM: controlled; GERD; hepatic encephalopathy; Hypertension; Hypothyroidism; Venous Inssufficiency; - PSHx: Hysterectomy; Cholecystectomy; - Social history: Smoking status: Patient states former smoker of tobacco. No barriers to communication noted, The patient speaks fluent Trinidadian. - Family history: Not pertinent. - : The pt / caregiver states he / she is not on anticoagulants. Home medication list is obtained from the patient, [email or web address] import data. - Exposure Risk Screening:: None identified. Vital Signs: 10/15 02:31 BP 129 / 65; Pulse 55; Resp 20; Temp 97.2(TE); Pulse Ox 99% on R/A; Weight 115.21 kg / thad 253.99 lbs (R); Height 5 ft. 3 in. (160.02 cm) (R); Pain 07/02; 03:17 Pulse 46 MON; Pulse Ox 98% ; mlc 03:44 Pulse 48 MON; Pulse Ox 95% ; mlc 03:44 BP 186 / 83 (auto/); mlc 03:45 Pulse 48 MON; Pulse Ox 98% ; mlc 03:49 BP 186 / 83; Pulse 49; Resp 20; Temp 97.8(TE); Pulse Ox 98% on R/A; Pain 06/02; thad 03:59 BP 132 / 73 (auto/); mlc 04:04 BP 104 / 52 (auto/); mlc 04:05 Pulse 50 MON; Pulse Ox 82% ; mlc 04:14 BP 98 / 54 (auto/); mlc 04:28 BP 90 / 51 (auto/); mlc 04:29 BP 90 / 52 (auto/); mlc 04:32 BP 92 / 51 (auto/); mlc 04:37 BP 89 / 50 (auto/); mlc 04:46 BP 143 / 60 (auto/); mlc 04:48 Pulse 46 MON; Pulse Ox 97% ; mlc 05:02 Pulse 48 MON; Pulse Ox 94% ; mlc 05:02 BP 120 / 57 (auto/); mlc 05:17 BP 140 / 74 (auto/); mlc 05:17 Pulse 46 MON; Pulse Ox 95% ; mlc 05:32 Pulse 46 MON; Pulse Ox 95% ; mlc 05:32 BP 148 / 72 (auto/); mlc 05:47 Pulse 48 MON; Pulse Ox 97% ; mlc 05:47 BP 146 / 70 (auto/); mlc 06:02 Pulse 48 MON; Pulse Ox 94% ; mlc 06:02 BP 157 / 74 (auto/); mlc 06:17 Pulse 48 MON; Pulse Ox 94% ; mlc 06:17 BP 165 / 74 (auto/); mlc 06:32 Pulse 48 MON; Pulse Ox 94% ; mlc 06:32 BP 144 / 65 (auto/); mlc 06:47 BP 111 / 55 (auto/); jmk 06:47 Pulse 50 MON; Pulse Ox 95% ; jmk 07:17 BP 188 / 84 (auto/); jmk 07:17 Pulse 48 MON; Pulse Ox 98% ; jmk 07:49 BP 154 / 69; Pulse 52; Resp 16; Temp 98.5; jmk 02:31 Body Mass Index 44.99 (115.21 kg, 160.02 cm) thad MDM: 02:45 morphine 4 mg IM once ordered. cs11 02:46 Humerus Ordered. EDMS 03:45 Shoulder Immobilizer ordered. cs11 04:38 Financial registration complete. [facility] 04:40 [facility] Payment Agreement was scanned into [employer] and attached to record. [facility] 05:30 CBC with Diff Ordered. EDMS 05:31 BED REQUEST+ADM ordered. EDMS 05:52 Admission / Observation Status ordered. EDMS 06:12 PHYSICAL THERAPY EVAL & TREAT ordered. EDMS 06:13 ELECTROCARDIOGRAM ADULT ordered. EDMS 06:13 CONSISTENT CARBOHYDRATES ordered. EDMS 06:13 COMPLETE COMPHRENSIVE METABOLI Ordered. EDMS 06:13 PROTHROMBIN TIME PROFILE\E\INR Ordered. EDMS 07:47 oxyCODONE-acetaminophen 5 mg-325 mg 1 tabs PO once ordered. [facility] 14:14 T-Sheet-- Draft Copy was scanned into [employer] and attached to record. gb Administered Medications: 03:17 Drug: morphine 4 mg [morphine 4 mg/mL intravenous cartridge (1 mL)] Route: IM; [place] [facility] [place]; 07:48 Drug: oxyCODONE-acetaminophen 1 tabs [oxycodone-acetaminophen 5 mg-325 mg tablet (1 jmk tabs)] Route: PO; Signatures: Dispatcher [employer] EDMS Guido Pfeiffer RN RN Deya Herrera, Reg Reg gb Valentín Mcdermott, DO DO cs11 Emily Mancera RN RN [facility] Melissa Blood [facility] J Luis Randhawa RN RN [facility] The chart was reviewed and I authenticate all verbal orders and agree with the evaluation and treatment provided.Corrections: (The following items were deleted from the chart) 06:55 05:30 BASIC METABOLIC PROFILE+LAB ordered. EDMS EDMS 06:55 06:13 COMPLETE BLOOD COUNT ordered. EDMS EDMS Attachments: 04:40 [facility] Payment Agreement [facility] 14:14 T-Sheet-- Draft Copy gb Chart Complete MTDD
--- NOTE | 2016-10-17 08:52 | EDDOCDS ---
Nurse's Notes [facility] Name: Pat Klein Age: 61 yrs Sex: Female : 1955 Arrival Date: 10/15/2016 Time: 02:18 Bed 11 Private MD: Paul Torres Diagnosis: Limitation of activities due to disability;2-part nondisplaced fracture of surgical neck of right humerus Presentation: 10/15 02:26 Presenting complaint: EMS states: pt fell trying to get up from the toilet. hands mlc slipped from walker. right arm was trapped between door and walker. Adult Sepsis Screening: The patient does not have new or worsening altered mentation. Patient's respiratory rate is less than 22. Systolic blood pressure is greater than 100. Patient has a qSOFA score of 0- Negative Sepsis Screen. Suicide/Homicide risk assessment- the patient denies having any suicidal and/or homicidal ideations and does not present with any other emotional, behavioral or mental health complaints. Status: Patient is not a supervisor home restoration service or dependent. Transition of care: patient was not received from another setting of care. 02:26 Acuity: ANAND Level 3 mlc 02:26 Method Of Arrival: Ambulance mlc Triage Assessment: 02:35 General: Appears uncomfortable, Behavior is cooperative. Pain: Location: anterior mlc aspect of right shoulder and right bicep Pain currently is 10 out of 10 on a pain scale. HIV screening NA for this visit Offered previously. The patient is triaged at the bedside. See Assessment in Nurses Notes section of ED record. Neurological: Level of Consciousness is awake, alert, obeys commands, Oriented to person, place, time. Respiratory: Airway is patent Respiratory effort is even, unlabored, Respiratory pattern is regular. Derm: Skin is normal. Musculoskeletal: Circulation, motion, and sensation intact Range of motion limited in right shoulder. Historical: - Allergies: Ciprofloxacin HCl; Ibuprofen; QUINOLONES; - Home Meds: 1. potassium chloride 15 mEq oral TbTQ 1 tab 4 times per day 2. Lasix 40 mg Oral tab 1 tab once daily 3. levothyroxine 50 mcg Oral tab 1 tab once daily 4. Aldactone 50 mg Oral tab 1 tab once daily 5. metoprolol succinate 50 mg Tb24 1 tab once daily 6. pantoprazole 40 mg oral TbEC 1 tab once daily 7. Prozac 20 mg Oral cap 3 caps once daily 8. lactulose 10 gram/15 mL (15 mL) Oral soln 30 mL twice a day 9. Toujeo SoloStar 300 unit/mL (1.5 mL) subcutaneous inpn 17 unit daily 10. oxycodone-acetaminophen 7.5-325 mg Oral tab 1 tab ran out today for Pain 11. magnesium oxide 400 mg Oral cap twice a day - PMHx: Anemia; Anxiety; Chronic Back pain; chronic hip pain-right; COPD; Diabetes - IDDM: controlled; GERD; hepatic encephalopathy; Hypertension; Hypothyroidism; Venous Inssufficiency; - PSHx: Hysterectomy; Cholecystectomy; - Social history: Smoking status: Patient states former smoker of tobacco. No barriers to communication noted, The patient speaks fluent French. - Family history: Not pertinent. - : The pt / caregiver states he / she is not on anticoagulants. Home medication list is obtained from the patient, Stupeflix import data. - Exposure Risk Screening:: None identified. Screenin:24 Infection Control. ml3 02:37 Screening information is obtained from the patient. Fall risk: At risk due to prior mlc history of falls. Assistance ADL's: Requires assistance with meal preparation, this assistance is provided by family members, bathing, assistance is provided by family members, Home Health Aides, housework, assistance is provided by family members. Assistance ADL's: Requires assistance with medication administration, assistance is provided by family members. Abuse/DV Screen: The patient / caregiver reports he/she is: not in a situation that causes fear, pain or injury. Nutritional screening: No deficits noted. Advance Directives: Currently, there is a health care proxy, Anahi Ng, daughter. There is an active DNR order but there is no copy available at this time. home support is adequate. Assessment: 02:40 Reassessment: see triage assessment. mlc 03:18 General: Appears in no apparent distress, Behavior is cooperative, pt medicated per mlc order. resp easy/unlabored. . Derm: Bruising that is brown, green, on left knee. 04:07 General: Appears in no apparent distress, comfortable, Behavior is cooperative, pt able mlc to stand and sit in chair with staff assistance. . 04:52 General: pt resting back in bed, resp easy/unlabored. pt unsteady on feet while mlc pivoting back into bed. . 07:27 General: Appears Report has been recvd. Pt alert and oriented x 3. quietly resting in [facility] bed. Sling in place to right upper extremety. Pulse is intact COAL LOADER less than 2 sec. reports overall body aches. . awaiting admission/ bed avail.. 07:48 General: Appears medicated for 7-8/10 pain to right upper arm. Otherwise unchanged from [facility] prior note. Admitted. Vital Signs: 02:31 BP 129 / 65; Pulse 55; Resp 20; Temp 97.2(TE); Pulse Ox 99% on R/A; Weight 115.21 kg thad (R); Height 5 ft. 3 in. (160.02 cm) (R); Pain 10/10; 03:17 Pulse 46 MON; Pulse Ox 98% ; mlc 03:44 Pulse 48 MON; Pulse Ox 95% ; mlc 03:44 BP 186 / 83 (auto/); mlc 03:45 Pulse 48 MON; Pulse Ox 98% ; mlc 03:49 BP 186 / 83; Pulse 49; Resp 20; Temp 97.8(TE); Pulse Ox 98% on R/A; Pain 9/10; thad 03:59 BP 132 / 73 (auto/); mlc 04:04 BP 104 / 52 (auto/); mlc 04:05 Pulse 50 MON; Pulse Ox 82% ; mlc 04:14 BP 98 / 54 (auto/); mlc 04:28 BP 90 / 51 (auto/); mlc 04:29 BP 90 / 52 (auto/); mlc 04:32 BP 92 / 51 (auto/); mlc 04:37 BP 89 / 50 (auto/); mlc 04:46 BP 143 / 60 (auto/); mlc 04:48 Pulse 46 MON; Pulse Ox 97% ; mlc 05:02 Pulse 48 MON; Pulse Ox 94% ; mlc 05:02 BP 120 / 57 (auto/); mlc 05:17 BP 140 / 74 (auto/); mlc 05:17 Pulse 46 MON; Pulse Ox 95% ; mlc 05:32 Pulse 46 MON; Pulse Ox 95% ; mlc 05:32 BP 148 / 72 (auto/); mlc 05:47 Pulse 48 MON; Pulse Ox 97% ; mlc 05:47 BP 146 / 70 (auto/); mlc 06:02 Pulse 48 MON; Pulse Ox 94% ; mlc 06:02 BP 157 / 74 (auto/); mlc 06:17 Pulse 48 MON; Pulse Ox 94% ; mlc 06:17 BP 165 / 74 (auto/); mlc 06:32 Pulse 48 MON; Pulse Ox 94% ; mlc 06:32 BP 144 / 65 (auto/); mlc 06:47 BP 111 / 55 (auto/); jmk 06:47 Pulse 50 MON; Pulse Ox 95% ; jmk 07:17 BP 188 / 84 (auto/); jmk 07:17 Pulse 48 MON; Pulse Ox 98% ; jmk 07:49 BP 154 / 69; Pulse 52; Resp 16; Temp 98.5; jmk 02:31 Body Mass Index 44.99 (115.21 kg, 160.02 cm) thad Vitals: 02:35 Log In Time N/A - ambulance [place] [facility] [place]: 02:19 Patient visited by Katie Joe, Landscape Foreman. ml3 02:19 Paul Torres MD is Private Physician. ml3 02:19 Patient moved to Waiting ml3 02:21 Emily Mancera RN is Primary Nurse. ml3 02:21 Patient moved to 11 ml3 02:31 Triage Initiated mlc 02:32 Patient visited by Clair Flores PCA. thad 02:32 Pt greeted and oriented to ED. Patient advised of names of staff involved in care, thad location of call bowser, wait times and NPO status. Patient has correct armband on for positive identification. Bed in low position. Call light in reach. Side rails up X2. Pulse ox on. NIBP on. 02:39 Patient visited by Emily Mancera RN. mlc 02:41 Valentín Mcdermott DO is Attending Physician. cs11 02:41 Patient visited by Valentín Mcdermott DO. cs11 02:47 Patient moved to Radiology maritza 03:17 The patient / caregiver is instructed regarding the plan of care and ED course. mlc 03:19 Patient visited by Emily Mancera RN. mlc 03:19 Patient moved to 11 mlc 03:46 Aron Berger is Referral Physician. cs11 03:49 Patient visited by Clair Flores PCA. thad 04:40 [place] Agreement was scanned into EveryScape and attached to record. [facility] 04:51 Patient visited by Toño Van PCA. mdr 04:51 Diet: Patient given water. mdr 04:53 Patient visited by Emily Mancera RN. [facility] 05:27 Salvador Callejas MD is Hospitalizing Provider. cs11 07:07 Primary Nurse role handed off by Emily Mancera RN deg 07:29 Humerus Returned. EDMS 07:30 Patient visited by Guido Pfeiffer RN. jmk 14:14 T-Sheet-- Draft Copy was scanned into EveryScape and attached to record. gb Administered Medications: 03:17 Drug: morphine 4 mg [morphine 4 mg/mL intravenous cartridge (1 mL)] Route: IM; [place] [facility] vastus lateralis; 07:48 Drug: oxyCODONE-acetaminophen 1 tabs [oxycodone-acetaminophen 5 mg-325 mg tablet (1 jmk tabs)] Route: PO; Order Results: Lab Order: CBC with Diff; SPEC'M 10/15/16 06:48 Test: WHITE BLOOD COUNT; Value: 7.8; Range: 4.0-10.0; Units: K/mm3; Status: F Test: RED BLOOD COUNT; Value: 4.65; Range: 4.00-5.40; Units: M/mm3; Status: F Test: HEMOGLOBIN; Value: 13.2; Range: 12.0-16.0; Units: g/dl; Status: F Test: HEMATOCRIT; Value: 41.0; Range: 36.0-47.0; Units: %; Status: F Test: MEAN CORPUSCULAR VOLUME; Value: 88.2; Range: 80.0-96.0; Units: fl; Status: F Test: MEAN CORPUSCULAR HEMOGLOBIN; Value: 28.3; Range: 27.0-33.0; Units: pg; Status: F Test: MEAN CORPUSCULAR HGB CONC; Value: 32.1; Range: 32.0-36.5; Units: g/dl; Status: F Test: RED CELL DISTRIBUTION WIDTH; Value: 15.2; Range: 11.5-14.5; Abnormal: Above high normal; Units: %; Status: F Test: PLATELET COUNT, AUTOMATED; Value: 163; Range: 150-450; Units: k/mm3; Status: F Test: NEUTROPHILS %; Value: 80.1; Range: 36.0-66.0; Abnormal: Above high normal; Units: %; Status: F Test: LYMPH %; Value: 10.7; Range: 24.0-44.0; Abnormal: Below low normal; Units: %; Status: F Test: MONO %; Value: 5.3; Range: 0.0-5.0; Abnormal: Above high normal; Units: %; Status: F Test: EOS %; Value: 1.0; Range: 0.0-3.0; Units: %; Status: F Test: BASO %; Value: 0.3; Range: 0.0-1.0; Units: %; Status: F Test: LARGE UNSTAINED CELL %; Value: 2.6; Range: 0.0-4.0; Units: %; Status: F Test: NEUTROPHILS #; Value: 6.3; Range: 1.8-7.7; Units: K/mm3; Status: F Test: LYMPH #; Value: 0.8; Range: 1.5-4.5; Abnormal: Below low normal; Units: K/mm3; Status: F Test: MONO #; Value: 0.4; Range: 0.0-0.8; Units: K/mm3; Status: F Test: EOS #; Value: 0.1; Range: 0.0-0.50; Units: K/mm3; Status: F Test: BASO #; Value: 0.0; Range: 0.0-0.2; Units: K/mm3; Status: F Test: LARGE UNSTAINED CELL #; Value: 0.2; Range: 0.0-0.4; Units: K/mm3; Status: F Lab Order: COMPLETE COMPHRENSIVE METABOLI; SPEC'M 10/15/16 06:48 Test: GLUCOSE, FASTING; Value: 130; Range: 80-110; Abnormal: Above high normal; Units: MG/DL; Status: F Test: BLOOD UREA NITROGEN; Value: 18; Range: 7-18; Units: MG/DL; Status: F Test: CREATININE FOR GFR; Value: 1.27; Range: 0.55-1.02; Abnormal: Above high normal; Units: MG/DL; Status: F Test: GLOMERULAR FILTRATION RATE; Value: 45.4; Range: >45; Status: F Test: SODIUM LEVEL; Value: 138; Range: 136-145; Units: MEQ/L; Status: F Test: POTASSIUM SERUM; Value: 4.2; Range: 3.5-5.1; Units: MEQ/L; Status: F Test: CHLORIDE LEVEL; Value: 102; Range: 98-107; Units: MEQ/L; Status: F Test: CARBON DIOXIDE LEVEL; Value: 27; Range: 21-32; Units: MEQ/L; Status: F Test: ANION GAP; Value: 9; Range: 8-16; Units: MEQ/L; Status: F Test: CALCIUM LEVEL; Value: 9.1; Range: 8.8-10.2; Units: MG/DL; Status: F Test: AST/SGOT; Value: 36; Range: 15-37; Units: U/L; Status: F Test: ALT/SGPT; Value: 25; Range: 12-78; Units: U/L; Status: F Test: ALKALINE PHOSPHATASE; Value: 107; Range: 45-117; Units: U/L; Status: F Test: BILIRUBIN,TOTAL; Value: 0.7; Range: 0.2-1.0; Units: MG/DL; Status: F Test: TOTAL PROTEIN; Value: 8.6; Range: 6.4-8.2; Abnormal: Above high normal; Units: GM/DL; Status: F Test: ALBUMIN; Value: 3.0; Range: 3.2-5.2; Abnormal: Below low normal; Units: GM/DL; Status: F Test: ALBUMIN/GLOBULIN RATIO; Value: 0.54; Range: 1.00-1.93; Abnormal: Below low normal; Status: F Test Note: ; Units are mL/min/1.73 m2 Chronic Kidney Disease Staging per NKF: Stage I & II GFR >=60 Normal to Mildly Decreased Stage III GFR 30-59 Moderately Decreased Stage IV GFR 15-29 Severely Decreased Stage V GFR <15 Very Little GFR Left ESRD GFR <15 on BRAND MGR Lab Order: PROTHROMBIN TIME PROFILE\E\INR; SPEC'M 10/15/16 07:07 Test: PROTHROMBIN TIME; Value: 14.7; Range: 12.3-14.5; Abnormal: Above high normal; Units: SECONDS; Status: F Test: INR; Value: 1.14; Status: F Test Note: ; THERAPUTIC HUMAN INR VALUES INDICATIONS NORMAL RANGES PROPHYLAXIS/TREATMENT OF: VENOUS THROMBOSIS 2.0-3.0 PULMONARY EMBOLISM 2.0-3.0 PREVENTION OF SYSTEMIC EMBOLISM FROM: TISSUE HEART VALVES 2.0-3.0 ACUTE MYOCARDIAL INFARCTION 2.0-3.0 VALVULAR HEART DISEASE 2.0-3.0 ATRIAL FIBRILLATION 2.0-3.0 MECHANICAL VALVES(HIGH RISK) 2.5-3.5 RECURRENT MYOCARDIAL INFARCTION 2.5-3.5 Radiology Order: Humerus Test: Humerus REASON FOR EXAMINATION: Trauma; Clinical: Trauma.; ; Technique: AP, Y-view and lateral views of the right humerus.; ; Findings:; There is a transverse displaced fracture of the proximal humeral diaphysis.; Degenerative changes at the acromioclavicular joint and elbow noted.; ; Impression:; Acute transverse displaced fracture at the proximal humeral diaphysis.; ; ; Signed by; Juan Duckworth MD 10/15/2016 07:16 A; Outcome: 03:46 Discharge ordered by Provider. cs11 05:29 Decision to Hospitalize by Provider. cs11 07:49 Discharge Assessment: Patient awake, alert and oriented x 3. No cognitive and/or jmk functional deficits noted. Patient verbalized understanding of disposition instructions. patient administered narcotics - yes. Patient was admitted to the hospital or transferred to another facility. Admitted to Med/Surg accompanied by tech, via stretcher, with chart. The following High Risk Discharge criteria are identified: None. Condition: unchanged. No special radiology studies were completed. Admission hand-off: Report Faxed Fax receipt verified by laury PEARSON. Property :Personal belongings accompany Pt. 07:52 Patient left the ED. tracey Signatures: Dispatcher [employer] EDMS Nadia Orourke, Landscape Foreman Unit deg Guido Pfeiffer RN RN Ronal Moseley Gloria, Tam Reg Katie Jason, Landscape Foreman Unit ml3 Clair Flores, MECHANICAL OXIDIZER MECHANICAL OXIDIZER Valentín Garza DO DO cs11 Emily Mancera RN RN mlc Hook, Sandra Toño Arzate, MECHANICAL OXIDIZER MECHANICAL OXIDIZER mdr Corrections: (The following items were deleted from the chart) 07:49 07:27 General: Appears Report has been recvd. Pt alert and oriented x 3. quietly jmk resting in bed. Sling in place to right upper extremety. Pulse is intact COAL LOADER less than 2 sec. reports overall body aches. monitor is sr without ectopy. awaiting admission/ bed avail.. tigrek Chart Complete MTDD
[2016-10-17] MEDS: METOPROLOL SUCC (TopROL XL) 50MG **XL** TAB PO SCH (09:00)
[2016-10-17] MEDS: LACTULOSE 20 GM/30 ML SYRUP UD PO SCH ×2 (09:10→20:56)
[2016-10-17] MEDS: HumaLOG INSULIN (NovoLOG) PER UNIT SC SCH ×4 (09:10→20:58)
[2016-10-17] MEDS: MAGNESIUM OXIDE 400 MG TAB (MAG-OX) PO SCH ×2 (09:11→20:56)
[2016-10-17] MEDS: HEPARIN SOD (PORCINE) 5000 UNITS/ML VIAL SC SCH ×2 (09:12→20:57)
[2016-10-17] MEDS: FUROSEMIDE 40 MG TAB PO SCH (09:12)
[2016-10-17] MEDS: FLUoxetine 20 MG CAP PO SCH (09:12)
[2016-10-17] MEDS: tiZANidine 4 MG TAB PO SCH ×3 (09:12→20:56)
[2016-10-17] MEDS: PANTOPRAZOLE 40MG TAB (PROTONIX) PO SCH (09:12)
[2016-10-17] MEDS: POTASSIUM CHLORIDE 10 MEQ SR TABLET PO SCH ×2 (09:12→20:56)
[2016-10-17] MEDS: SPIRONOLACTONE 50 MG TAB PO SCH (09:13)
--- NOTE | 2016-10-17 12:59 | DSES ---
DATE OF ADMISSION: 10/15/2016 DATE OF TRANSFER/DISCHARGE TO ALC STATUS: 10/17/2016 PRIMARY CARE PHYSICIAN: Dr. Paul Torres ATTENDING PHYSICIAN: Caryn Zeng DO HISTORY OF PRESENT ILLNESS: Pat Klein is a 61-year-old female patient of Dr. Torres who fell and injured her right arm. She was brought to the emergency department and an x-ray of the humerus showed acute transverse displaced fracture of the proximal humeral diaphysis. The patient was admitted. Orthopedics was consulted and the patient was seen by Dr. Larson who recommended a sling with non-weightbearing of right upper extremity. Orthopedics feels she can use a dorina cane. Plan is to followup with orthopedics in 7-10 days per their instruction. The patient is having difficulty caring for self with this acute injury and pain is not yet medically adequately controlled. Therefore, she will be placed in ALC status. She is getting pain control with Percocet. She is working with physical therapy. This will be continued while she is an ALC patient. The patient was also followed for end-stage liver disease, type 2 diabetes mellitus, congestive heart failure, sleep apnea, gastroesophageal reflux disease, chronic kidney disease. She was maintained on her outpatient medications. No other acute issues were noted. PHYSICAL EXAMINATION: VITALS: Temperature 98.7, pulse 51, respiratory rate 18, blood pressure 107/55, pulse oximetry 95%. GENERAL: The patient is alert, no acute distress. CHEST: Clear to auscultation bilaterally. HEART: Regular rate and rhythm. ABDOMEN: Obese. Positive bowel sounds. Soft, nontender. EXTREMITIES: Right upper extremity in a sling. No significant lower . Medications and discharge diagnoses to be included on final discharge summary.
--- NOTE | 2016-10-17 23:29 | CR ---
DATE OF CONSULTATION: 10/16/2016 Asked to see this patient to evaluate right humerus fracture. HISTORY: 61-year-old female who was at home with her daughter. She fell in the bathroom and injured the right shoulder. She complains of right shoulder pain. She denies numbness and tingling. She has been with sling since admission through the emergency room (ER). She was admitted to the hospitalist service. She has other medical issues. Her medical record was reviewed. Imaging studies reveal a right proximal humerus fracture with some apex anterior angulation but otherwise reasonable alignment. probably in some combination. CLINICAL EXAMINATION: She is alert and oriented. Mood and affect are slightly flat. Appears to be her stated age of 61. lower extremities. The extremities are warm. She has a palpable pulse in the right upper extremity above the wrist. There is tenderness at the shoulder. There is no tenderness at the elbow. The fingers are sensate. Appears to be an isolated injury one side appears to be uninvolved. IMPRESSION: Right proximal humerus fracture. RECOMMENDATIONS: I recommend treatment for the time being in the sling . I am optimistic with respect to management of this injury for this patient. I would recommend followup in our office in the next 5-10 days. Next, I talked with the patient about healing, and therapy. She may be doing pendulum exercises and elbow range of motion exercises. We talked about recovery. I spent approximately 25 minutes together with this patient, more than 50% of which was [id number] time. In addition, the patient's medical records and admission history and physical (H and P) were also reviewed by myself. For further details, please refer to the medical record. ALTAGRACIA
[2016-10-18] MEDS: PERCOCET 5MG/325MG TAB PO PRN ×5 (02:29→22:04)
[2016-10-18 06:00] VITALS: BP 139/62
[2016-10-18] MEDS: LEVOTHYROXINE 0.05 MG TAB (50 MCG) PO SCH (06:03)
[2016-10-18] MEDS: LACTULOSE 20 GM/30 ML SYRUP UD PO SCH ×2 (08:30→21:02)
[2016-10-18] MEDS: SPIRONOLACTONE 50 MG TAB PO SCH (08:30)
[2016-10-18] MEDS: FUROSEMIDE 40 MG TAB PO SCH (08:30)
[2016-10-18] MEDS: HumaLOG INSULIN (NovoLOG) PER UNIT SC SCH ×4 (08:30→20:57)
[2016-10-18] MEDS: tiZANidine 4 MG TAB PO SCH ×3 (08:31→21:02)
[2016-10-18] MEDS: POTASSIUM CHLORIDE 10 MEQ SR TABLET PO SCH ×2 (08:31→21:02)
[2016-10-18] MEDS: FLUoxetine 20 MG CAP PO SCH (08:31)
[2016-10-18] MEDS: PANTOPRAZOLE 40MG TAB (PROTONIX) PO SCH (08:31)
[2016-10-18] MEDS: HEPARIN SOD (PORCINE) 5000 UNITS/ML VIAL SC SCH ×2 (08:32→21:02)
[2016-10-18] MEDS: MAGNESIUM OXIDE 400 MG TAB (MAG-OX) PO SCH ×2 (08:32→21:02)
[2016-10-18] MEDS: METOPROLOL SUCC (TopROL XL) 50MG **XL** TAB PO SCH (08:32)
[2016-10-19] MEDS: PERCOCET 5MG/325MG TAB PO PRN ×5 (02:17→19:46)
[2016-10-19 06:10] VITALS: BP 140/67
[2016-10-19] MEDS: LEVOTHYROXINE 0.05 MG TAB (50 MCG) PO SCH (06:20)
[2016-10-19] MEDS: HumaLOG INSULIN (NovoLOG) PER UNIT SC SCH ×4 (09:00→20:33)
[2016-10-19] MEDS: LACTULOSE 20 GM/30 ML SYRUP UD PO SCH ×2 (09:00→20:38)
[2016-10-19] MEDS: FUROSEMIDE 40 MG TAB PO SCH (09:00)
[2016-10-19] MEDS: SPIRONOLACTONE 50 MG TAB PO SCH (09:00)
[2016-10-19] MEDS: METOPROLOL SUCC (TopROL XL) 50MG **XL** TAB PO SCH (09:00)
[2016-10-19] MEDS: HEPARIN SOD (PORCINE) 5000 UNITS/ML VIAL SC SCH ×2 (09:01→20:38)
[2016-10-19] MEDS: FLUoxetine 20 MG CAP PO SCH (09:01)
[2016-10-19] MEDS: MAGNESIUM OXIDE 400 MG TAB (MAG-OX) PO SCH ×2 (09:02→20:38)
[2016-10-19] MEDS: tiZANidine 4 MG TAB PO SCH ×3 (09:02→20:38)
[2016-10-19] MEDS: POTASSIUM CHLORIDE 10 MEQ SR TABLET PO SCH ×2 (09:02→20:38)
[2016-10-19] MEDS: PANTOPRAZOLE 40MG TAB (PROTONIX) PO SCH (09:02)
[2016-10-20] MEDS: PERCOCET 5MG/325MG TAB PO PRN ×6 (02:45→23:58)
[2016-10-20] MEDS: LEVOTHYROXINE 0.05 MG TAB (50 MCG) PO SCH (05:34)
[2016-10-20 06:05] VITALS: BP 122/86
[2016-10-20] MEDS: SPIRONOLACTONE 50 MG TAB PO SCH (08:44)
[2016-10-20] MEDS: FLUoxetine 20 MG CAP PO SCH (08:44)
[2016-10-20] MEDS: FUROSEMIDE 40 MG TAB PO SCH (08:44)
[2016-10-20] MEDS: HumaLOG INSULIN (NovoLOG) PER UNIT SC SCH ×4 (08:44→20:21)
[2016-10-20] MEDS: METOPROLOL SUCC (TopROL XL) 50MG **XL** TAB PO SCH (08:44)
[2016-10-20] MEDS: LACTULOSE 20 GM/30 ML SYRUP UD PO SCH ×2 (08:45→20:20)
[2016-10-20] MEDS: POTASSIUM CHLORIDE 10 MEQ SR TABLET PO SCH ×2 (08:45→20:20)
[2016-10-20] MEDS: tiZANidine 4 MG TAB PO SCH ×3 (08:45→20:20)
[2016-10-20] MEDS: PANTOPRAZOLE 40MG TAB (PROTONIX) PO SCH (08:45)
[2016-10-20] MEDS: MAGNESIUM OXIDE 400 MG TAB (MAG-OX) PO SCH ×2 (08:45→20:20)
[2016-10-20 09:45] VITALS: BP 141/52
[2016-10-20] MEDS: HEPARIN SOD (PORCINE) 5000 UNITS/ML VIAL SC SCH ×2 (10:36→20:20)
[2016-10-20 11:50] VITALS: BP_SYST 158; BP_SYST 194; BP_DIAS 64; BP_DIAS 83
[2016-10-21] MEDS: PERCOCET 5MG/325MG TAB PO PRN ×4 (04:22→17:36)
[2016-10-21] MEDS: LEVOTHYROXINE 0.05 MG TAB (50 MCG) PO SCH (05:58)
[2016-10-21 06:00] VITALS: BP 134/65
[2016-10-21] MEDS: LACTULOSE 20 GM/30 ML SYRUP UD PO SCH ×2 (08:30→19:56)
[2016-10-21] MEDS: HumaLOG INSULIN (NovoLOG) PER UNIT SC SCH ×4 (08:30→19:56)
[2016-10-21] MEDS: HEPARIN SOD (PORCINE) 5000 UNITS/ML VIAL SC SCH ×2 (08:30→19:56)
[2016-10-21] MEDS: tiZANidine 4 MG TAB PO SCH ×3 (08:31→19:56)
[2016-10-21] MEDS: FLUoxetine 20 MG CAP PO SCH (08:31)
[2016-10-21] MEDS: PANTOPRAZOLE 40MG TAB (PROTONIX) PO SCH (08:31)
[2016-10-21] MEDS: FUROSEMIDE 40 MG TAB PO SCH (08:31)
[2016-10-21] MEDS: SPIRONOLACTONE 50 MG TAB PO SCH (08:31)
[2016-10-21] MEDS: POTASSIUM CHLORIDE 10 MEQ SR TABLET PO SCH ×2 (08:31→19:56)
[2016-10-21] MEDS: METOPROLOL SUCC (TopROL XL) 50MG **XL** TAB PO SCH (08:32)
[2016-10-21] MEDS: MAGNESIUM OXIDE 400 MG TAB (MAG-OX) PO SCH ×2 (08:32→19:56)
[2016-10-21] MEDS: oxyCODONE 10 MG CR TAB PO SCH ×2 (10:26→19:55)
[2016-10-22] MEDS: PERCOCET 5MG/325MG TAB PO PRN ×5 (00:06→21:44)
[2016-10-22] MEDS: LEVOTHYROXINE 0.05 MG TAB (50 MCG) PO SCH (05:34)
[2016-10-22 06:00] VITALS: BP 121/60
[2016-10-22] MEDS: HumaLOG INSULIN (NovoLOG) PER UNIT SC SCH ×4 (08:10→21:00)
[2016-10-22] MEDS: LACTULOSE 20 GM/30 ML SYRUP UD PO SCH ×2 (08:10→20:06)
[2016-10-22] MEDS: oxyCODONE 10 MG CR TAB PO SCH ×2 (08:10→20:08)
[2016-10-22] MEDS: FLUoxetine 20 MG CAP PO SCH (08:11)
[2016-10-22] MEDS: SPIRONOLACTONE 50 MG TAB PO SCH (08:12)
[2016-10-22] MEDS: POTASSIUM CHLORIDE 10 MEQ SR TABLET PO SCH ×2 (08:12→20:07)
[2016-10-22] MEDS: FUROSEMIDE 40 MG TAB PO SCH (08:12)
[2016-10-22] MEDS: tiZANidine 4 MG TAB PO SCH ×3 (08:12→20:07)
[2016-10-22] MEDS: MAGNESIUM OXIDE 400 MG TAB (MAG-OX) PO SCH ×2 (08:12→20:07)
[2016-10-22] MEDS: PANTOPRAZOLE 40MG TAB (PROTONIX) PO SCH (08:12)
[2016-10-22] MEDS: HEPARIN SOD (PORCINE) 5000 UNITS/ML VIAL SC SCH ×2 (08:13→20:07)
[2016-10-22] MEDS: METOPROLOL SUCC (TopROL XL) 50MG **XL** TAB PO SCH (08:15)
[2016-10-22] MEDS ORDERED: D5W MINI IV SCH (14:00)
[2016-10-22] MEDS ORDERED: NAFCILLIN SOD IV SCH (14:00)
--- NOTE | 2016-10-22 14:00 | IPNPDOC ---
Assessment/Plan Date Seen The patient was seen on 10/22/16. Problems Problems: (1) Parotitis, acute Status: Acute Problem Text: Acute parotitis - per patient, symptoms started to develop 4 days ago but swelling and pain became much worse today. I transferred patient back to inpatient status on 10/22/16. Start Nafcillin 2 g Q6H and clindamycin 600 mg Q6H. Will check CBC and BMP stat with repeat labs in the morning. (2) Right humeral fracture Status: Acute Response to Treatment: Stable Problem Specific Plan: Consult Specialist, Monitor Clinically Problem Text: 10/15 I have placed a call to Dr Larson, orthopedist warehouse person. Await a return call. Admitted d/t inability to ambulate with a walker with her R humerus fracture 10/16- ortho recommends sling, with NWB of RUYue, can use HemiCane. F/u with Ortho in 7 -10 days 10/22: Ortho had recommended f/u within 7/10 days - as patient is still here, Kennel Worker will ask Ortho if they want to re-eval as an inpatient. (3) Morbid obesity with BMI of 50.0-59.9, adult Status: Chronic Response to Treatment: Stable Problem Specific Plan: Monitor Clinically (4) End stage liver disease Status: Chronic Response to Treatment: Improving Problem Specific Plan: Monitor Clinically Problem Text: Cont home meds. (5) T2DM (type 2 diabetes mellitus) Status: Chronic Response to Treatment: Improving Problem Specific Plan: Monitor Clinically Problem Text: Cont home meds, also on SSI. (6) Accident due to mechanical fall without injury Status: Acute Problem Specific Plan: Monitor Clinically Problem Text: Fell while in [place]. Plan / VTE VTE Prophylaxis Ordered?: Yes Subjective Review of Systems CC/HPI The patient is a 61-year-old female admitted with a reason for visit of Right Humeral Fracture. Events since last encounter I was called by nurse this afternoon because patient is c/o four days of worsening pain and swelling on the left side of her face. She states pain started over her left cheek and has spread down her neck and behind her left ear. She states she has pain in her ear canal and pain with chewing. She denies any discharge or foul taste in her mouth. General: Reports: Fatigue, Denies: Chills Constitutional: Denies: Chills, Fever ENT: Reports: Ear Pain (left ear pain) Skin: Reports: Rash (erythema over left cheek and neck) Pulmonary: Denies: Dyspnea Cardiovascular: Denies: Chest Pain, Palpitations Gastrointestinal: Denies: Abdominal Pain, Nausea, Vomiting Musculoskeletal: Reports: Neck Pain (pain in area of redness and swelling), Denies: Back Pain Neurological: Denies: Change in speech, Numbness, Weakness Psych: Reports: Mood Normal Objective Physical Examination General Exam: Positive: Alert, No Acute Distress ENT Exam: Positive: Mucous membr. moist/pink, Other ENT (Erythema, induration, tenderness, and swelling over left parotid gland with erythema spreading down left cheek and neck and under left ear; no drainage or swelling inside patient' s mouth), Pharynx Normal, Tongue Midline, Negative: Ext Auditory Canal Nml (left EAC is erythematous, swollen, and tender; TM cannot be visualized due to cerumen and swelling), Pharyngeal Edema Chest Exam: Positive: Clear to auscultation, Normal air movement Heart Exam: Positive: Normal S1, Normal S2, Rate Normal Abdomen Exam: Positive: Normal bowel sounds, Soft, Negative: Tenderness Extremity Exam: Positive: Other (R arm in sling), Negative: Edema (chronic venous insuff changes) Skin Exam: Positive: Rash (erythema over left parotid gland spreading down cheek, neck and behind left ear) Lymph Nodes: Enlarged: Left Neck Vital Signs/I&O Vital Signs Date Time Temp Pulse Resp B/P Pulse Ox O2 Delivery O2 Flow Rate FiO2 10/22/16 12:07 20 10/22/16 08:15 63 138/65 10/22/16 08:10 Room Air 10/22/16 06:00 98.8 93 I&O- Last 24 Hours up to 6 AM 10/22/16 06:00 Intake Total 1560 ml Output Total 1425 ml Balance 135 ml Laboratory Data Labs 24H Laboratory Tests 2 10/21/16 16:23: Bedside Glucose (Misc Panel) 117H 10/21/16 19:56: Bedside Glucose (Misc Panel) 131H 10/22/16 05:55: Bedside Glucose (Misc Panel) 138H 10/22/16 12:05: Bedside Glucose (Misc Panel) 151H FSBS Laboratory Tests Test 10/21/16 16:23 1/29/17 19:56 10/22/16 05:55 10/22/16 12:05 Range/Units Bedside Glucose (Misc Panel) 117 131 138 151 80-115 MG/DL FRANCINE LUCAS MD Oct 22, 2016 14:00
[2016-10-22 14:22] LABS: MEAN CORPUSCULAR HEMOGLOBIN 28.2 pg (27.0-33.0); MEAN CORPUSCULAR HGB CONC 32.1 g/dl (32.0-36.5); PLATELET COUNT, AUTOMATED 155 k/mm3 (150-450); RED CELL DISTRIBUTION WIDTH 16.7 % (11.5-14.5)
[2016-10-22 14:37] LABS: CREATININE FOR GFR 1.17 MG/DL (0.55-1.02); GLOMERULAR FILTRATION RATE 49.9 (>45); POTASSIUM SERUM 4.1 MEQ/L (3.5-5.1)
[2016-10-22] MEDS: CLINDAMYCIN 600 MG in APPROPRIATE DILUENT 1 EA IV SCH ×2 (14:38→20:07)
[2016-10-22 15:22] LABS: EOSINOPHILS 2 % (0-5)
[2016-10-22 15:23] LABS: ANISOCYTOSIS 1+
[2016-10-22] MEDS: NAFCILLIN SOD 2 GM in D5W MINI-BAG PLUS 100 ML IV SCH ×2 (15:53→21:43)
[2016-10-22 22:00] VITALS: BP 148/67
[2016-10-22] MEDS ORDERED: HYALURONIDASE 200 UNITS/ML VIAL (J3470) SC ONE (23:45)
[2016-10-23] MEDS: CLINDAMYCIN 600 MG in APPROPRIATE DILUENT 1 EA IV SCH ×4 (01:58→20:07)
[2016-10-23] MEDS: PERCOCET 5MG/325MG TAB PO PRN ×6 (01:59→23:04)
[2016-10-23] MEDS: NAFCILLIN SOD 2 GM in D5W MINI-BAG PLUS 100 ML IV SCH ×4 (03:04→22:38)
[2016-10-23] MEDS: LEVOTHYROXINE 0.05 MG TAB (50 MCG) PO SCH (06:00)
[2016-10-23 06:10] LABS: MEAN CORPUSCULAR HEMOGLOBIN 28.1 pg (27.0-33.0); MEAN CORPUSCULAR HGB CONC 32.1 g/dl (32.0-36.5); MEAN CORPUSCULAR VOLUME 87.7 fl (80.0-96.0); RED CELL DISTRIBUTION WIDTH 16.8 % (11.5-14.5); WHITE BLOOD COUNT 5.6 K/mm3 (4.0-10.0)
[2016-10-23 06:26] VITALS: BP 108/58
[2016-10-23 06:26] LABS: CALCIUM LEVEL 8.3 MG/DL (8.8-10.2); CREATININE FOR GFR 1.12 MG/DL (0.55-1.02); GLOMERULAR FILTRATION RATE 52.5 (>45); POTASSIUM SERUM 3.7 MEQ/L (3.5-5.1)
[2016-10-23] MEDS: oxyCODONE 10 MG CR TAB PO SCH ×2 (08:26→20:08)
[2016-10-23] MEDS: LACTULOSE 20 GM/30 ML SYRUP UD PO SCH ×2 (08:26→20:07)
[2016-10-23] MEDS: HEPARIN SOD (PORCINE) 5000 UNITS/ML VIAL SC SCH ×2 (08:27→20:07)
[2016-10-23] MEDS: PANTOPRAZOLE 40MG TAB (PROTONIX) PO SCH (08:27)
[2016-10-23] MEDS: FUROSEMIDE 40 MG TAB PO SCH (08:27)
[2016-10-23] MEDS: FLUoxetine 20 MG CAP PO SCH (08:27)
[2016-10-23] MEDS: POTASSIUM CHLORIDE 10 MEQ SR TABLET PO SCH ×2 (08:27→20:07)
[2016-10-23] MEDS: MAGNESIUM OXIDE 400 MG TAB (MAG-OX) PO SCH ×2 (08:28→20:07)
[2016-10-23] MEDS: tiZANidine 4 MG TAB PO SCH ×3 (08:28→20:07)
[2016-10-23] MEDS: HumaLOG INSULIN (NovoLOG) PER UNIT SC SCH ×4 (08:28→20:11)
[2016-10-23] MEDS: METOPROLOL SUCC (TopROL XL) 50MG **XL** TAB PO SCH (08:28)
[2016-10-23] MEDS: SPIRONOLACTONE 50 MG TAB PO SCH (08:28)
[2016-10-23 14:00] VITALS: BP 125/61
--- NOTE | 2016-10-23 15:41 | IPNPDOC ---
Assessment/Plan Date Seen The patient was seen on 10/23/16. Problems Problems: (1) Parotitis, acute Status: Acute Problem Text: Improved on abx. Did not see yesterday, but compared to prev note , seems to be receding. Could be due to obstructing stone. Will get u/s to eval for stone, as infection will not clear readily if bacteria are trapped. No purulent drainage in the mouth. - cont hot compresses - cont abx day 2 - sour lemon to help contract gland (2) Right humeral fracture Status: Acute Response to Treatment: Stable Problem Specific Plan: Consult Specialist, Monitor Clinically Problem Text: Admitted d/t inability to ambulate with a walker with her R humerus fracture. Ortho recommends sling, with NWB of RUYue, can use HemiCane. Will need followup the week of Oct 29. Pt not reporting pain today. Will plan on outpatient followup. (3) Morbid obesity with BMI of 50.0-59.9, adult Status: Chronic Response to Treatment: Stable Problem Specific Plan: Monitor Clinically (4) End stage liver disease Status: Chronic Response to Treatment: Improving Problem Specific Plan: Monitor Clinically Problem Text: Cont home meds. (5) T2DM (type 2 diabetes mellitus) Status: Chronic Response to Treatment: Improving Problem Specific Plan: Monitor Clinically Problem Text: Cont home meds, also on SSI. (6) Accident due to mechanical fall without injury Status: Acute Problem Specific Plan: Monitor Clinically Problem Text: Fell [place] Plan / VTE VTE Prophylaxis Ordered?: Yes Disposition PO abx 10/24 Subjective Review of Systems CC/HPI The patient is a 61-year-old female admitted with a reason for visit of Right Humeral Fracture. Events since last encounter Pt states she is better, but still having pain in her cheek. Denies fevers, chills, or sweats. Objective Physical Examination General Exam: Positive: Alert, No Acute Distress ENT Exam: Positive: Mucous membr. moist/pink, Other ENT (redness, hard induration, and pain of the L cheek, midly tender submandibular salivary gland on R), Pharynx Normal Chest Exam: Positive: Clear to auscultation, Normal air movement Heart Exam: Positive: Normal S1, Normal S2, Rate Normal Abdomen Exam: Positive: Normal bowel sounds, Soft, Negative: Tenderness Extremity Exam: Positive: Other (R arm in sling), Negative: Edema (chronic venous insuff changes) Skin Exam: Positive: Rash (erythema over left parotid gland spreading down cheek, neck and behind left ear) Lymph Nodes: Enlarged: Left Neck Vital Signs/I&O Vital Signs Date Time Temp Pulse Resp B/P Pulse Ox O2 Delivery O2 Flow Rate FiO2 10/23/16 14:55 18 Room Air 10/23/16 14:23 98.5 108 108/58 96 I&O- Last 24 Hours up to 6 AM 10/23/16 06:00 Intake Total 830 ml Output Total 200 ml Balance 630 ml Laboratory Data Labs 24H Laboratory Tests 2 10/22/16 16:47: Bedside Glucose (Misc Panel) 187H 10/22/16 20:27: Bedside Glucose (Misc Panel) 210H 10/23/16 05:40: Anion Gap 9, Blood Urea Nitrogen 17, Creatinine 1.12H, Sodium Level 137, Potassium Level 3.7, Chloride Level 102, Carbon Dioxide Level 26, Calcium Level 8.3L, Glomerular Filtration Rate 52.5 10/23/16 11:39: Bedside Glucose (Misc Panel) 245H CBC/BMP Laboratory Tests 10/23/16 05:40 Calcium Level 8.3 L, Red Blood Count 3.93 L, Mean Corpuscular Volume 87.7, Mean Corpuscular Hemoglobin 28.1, Mean Corpuscular Hemoglobin Concent 32.1, Red Cell Distribution Width 16.8 H FSBS Laboratory Tests Test 10/22/16 16:47 10/22/16 20:27 10/23/16 11:39 Range/Units Bedside Glucose (Misc Panel) 187 210 245 80-115 MG/DL GEOFF JONES MD Oct 23, 2016 15:41
--- NOTE | 2016-10-23 16:42 | REP ---
RIGHT HUMERUS: 10/23/2016: Comparison: 10/15/2016. Clinical history: Follow-up right humeral fracture. Two views are provided. There is a fracture of the proximal shaft of the right humerus with some angulation medially of the fracture apex. No gross dislocation of the humeral head. Alignment of the fracture fragments is fairly similar with some medial displacement and angulation of the fracture towards the midline. I do not see other fractures or interval change. Signed by Miek Richter MD 10/23/2016 06:02 P
--- NOTE | 2016-10-23 17:29 | REP ---
Left carotid ultrasound: Note from the supervisor microbiology technologists states that the left parotid appears larger than right. Ultrasonography of the left parotid identifies no calculus. However, there is a 2.1 x 1.3 x 1.8 cm sharply circumscribed hypoechoic mass. This could represent a cyst or a soft tissue mass. MRI follow-up might be considered. Impression: 2.1 cm hypoechoic mass versus cyst in the left carotid. No calculus is identified. Consider follow-up MRI. Signed by Jim Del Toro MD 10/23/2016 05:20 P
[2016-10-23 22:00] VITALS: BP 141/66
[2016-10-24] MEDS: CLINDAMYCIN 600 MG in APPROPRIATE DILUENT 1 EA IV SCH ×4 (02:15→20:08)
[2016-10-24] MEDS: PERCOCET 5MG/325MG TAB PO PRN ×4 (03:08→16:34)
[2016-10-24] MEDS: NAFCILLIN SOD 2 GM in D5W MINI-BAG PLUS 100 ML IV SCH ×4 (03:08→21:03)
[2016-10-24] MEDS: LEVOTHYROXINE 0.05 MG TAB (50 MCG) PO SCH (05:35)
[2016-10-24 06:00] VITALS: BP 142/78
[2016-10-24] MEDS: FLUoxetine 20 MG CAP PO SCH (08:27)
[2016-10-24] MEDS: LACTULOSE 20 GM/30 ML SYRUP UD PO SCH ×2 (08:28→20:08)
[2016-10-24] MEDS: HEPARIN SOD (PORCINE) 5000 UNITS/ML VIAL SC SCH ×2 (08:28→20:08)
[2016-10-24] MEDS: HumaLOG INSULIN (NovoLOG) PER UNIT SC SCH ×4 (08:28→20:41)
[2016-10-24] MEDS: MAGNESIUM OXIDE 400 MG TAB (MAG-OX) PO SCH ×2 (08:29→20:08)
[2016-10-24] MEDS: oxyCODONE 10 MG CR TAB PO SCH (08:29)
[2016-10-24] MEDS: tiZANidine 4 MG TAB PO SCH ×3 (08:29→20:09)
[2016-10-24] MEDS: POTASSIUM CHLORIDE 10 MEQ SR TABLET PO SCH ×2 (08:31→20:08)
[2016-10-24] MEDS: PANTOPRAZOLE 40MG TAB (PROTONIX) PO SCH (08:31)
[2016-10-24] MEDS: SPIRONOLACTONE 50 MG TAB PO SCH (08:32)
[2016-10-24] MEDS: METOPROLOL SUCC (TopROL XL) 50MG **XL** TAB PO SCH (08:32)
[2016-10-24] MEDS: FUROSEMIDE 40 MG TAB PO SCH (08:32)
--- NOTE | 2016-10-24 11:31 | IPNPDOC ---
Assessment/Plan Date Seen The patient was seen on 10/24/16. Attending Note: I saw and examined Ms. Klein today, and I discussed her care with Shelley CASTANON - I agree with her note below. Her neck appears improved today as compared to when I saw her on 10/22/16 with less erythema and tenderness. MRI showed A 19 x 17 x 14 mm oval well-defined encapsulated lesion in the left neck that is consistent with a small neck cyst and was seen on prior ultrasounds, though it has grown in size; per MRI read, it has nonaggressive features. Continue antibiotics for presumed parotiditis. The patient is c/o increased arm pain; her oxycontin was increased today starting with this evening's dose - will re-evaluate pain tomorrow. (KES) Problems Problems: (1) Parotitis, acute Status: Acute Problem Text: Improved on abx. Did not see yesterday, but compared to prev note , seems to be receding. Could be due to obstructing stone. Will get u/s to eval for stone, as infection will not clear readily if bacteria are trapped. No purulent drainage in the mouth. - cont hot compresses - cont abx day 2 - sour lemon to help contract gland 10/24 - still swollen and tneder. US reviewed - Get MRI to further evaluate ? carotid mass (2) Right humeral fracture Status: Acute Response to Treatment: Stable Problem Specific Plan: Consult Specialist, Monitor Clinically Problem Text: Admitted d/t inability to ambulate with a walker with her R humerus fracture. Ortho recommends sling, with NWB of RUE, can use HemiCane. Will need followup the week of Oct 29. Pt not reporting pain today. Will plan on outpatient followup. 10/24 - Pain not well controlled I will increase oxycontin to 20 BID. Continue Percocet prn (Patient has untreated RENEE so need to be careful with escalating doses of narcotics causing sedation/apnea) Ortho [id number] f/u x-ray of humerus yesterday and they will come back today to review this and see patient. (3) Morbid obesity with BMI of 50.0-59.9, adult Status: Chronic Response to Treatment: Stable Problem Specific Plan: Monitor Clinically (4) End stage liver disease Status: Chronic Response to Treatment: Stable, Improving Problem Specific Plan: Monitor Clinically Problem Text: Cont home meds. Continue to monitor labs (5) T2DM (type 2 diabetes mellitus) Status: Chronic Response to Treatment: Improving Problem Specific Plan: Monitor Clinically Problem Text: Cont home meds, also on SSI. (6) Accident due to mechanical fall without injury Status: Acute Problem Specific Plan: Monitor Clinically Problem Text: Fell while [place]. Plan / VTE VTE Prophylaxis Ordered?: Yes (SQ heparin) Disposition SNF once stable Subjective Review of Systems CC/HPI The patient is a 61-year-old female admitted with a reason for visit of Right Humeral Fracture. Events since last encounter C/O severe pain in her right arm and left face/neck. Percocet only controls her pain for an hour or so. Constitutional: Denies: Chills, Fever Pulmonary: Denies: Cough, Dyspnea Cardiovascular: Denies: Chest Pain, Orthopnea, Palpitations Gastrointestinal: Denies: Abdominal Pain, Constipation, Diarrhea, Nausea, Vomiting Objective Physical Examination General Exam: Positive: Alert, Mild Distress (reports pain) ENT Exam: Positive: Mucous membr. moist/pink, Other ENT (redness, hard induration, and pain of the L cheek, midly tender submandibular salivary gland on R), Pharynx Normal Chest Exam: Positive: Clear to auscultation, Normal air movement Heart Exam: Positive: Normal S1, Normal S2, Rate Normal Abdomen Exam: Positive: Normal bowel sounds, Soft, Negative: Tenderness Extremity Exam: Positive: Other (R arm in sling), Negative: Edema (chronic venous insuff changes) Skin Exam: Positive: Rash (erythema over left parotid gland spreading down cheek, neck and behind left ear) Lymph Nodes: Enlarged: Left Neck Vital Signs/I&O Vital Signs Date Time Temp Pulse Resp B/P Pulse Ox O2 Delivery O2 Flow Rate FiO2 10/24/16 09:20 20 10/24/16 08:32 55 104/53 10/24/16 08:30 Room Air 10/24/16 06:00 98.1 97 I&O- Last 24 Hours up to 6 AM 10/24/16 06:00 Intake Total 1470 ml Output Total 0 ml Balance 1470 ml Laboratory Data Labs 24H Laboratory Tests 2 10/23/16 11:39: Bedside Glucose (Misc Panel) 245H 10/23/16 16:44: Bedside Glucose (Misc Panel) 115 10/23/16 20:11: Bedside Glucose (Misc Panel) 201H 10/24/16 07:04: Bedside Glucose (Misc Panel) 138H FSBS Laboratory Tests Test 10/23/16 11:39 10/23/16 16:44 10/23/16 20:11 10/24/16 07:04 Range/Units Bedside Glucose (Misc Panel) 245 115 201 138 80-115 MG/DL SHELLEY JOSEPH PA-C Oct 24, 2016 11:31 FRANCINE LUCAS MD Oct 24, 2016 17:08
[2016-10-24 14:00] VITALS: BP 148/67
--- NOTE | 2016-10-24 16:06 | REP ---
MRI ORBIT/FACE/NECK WITHOUT AND WITH CONTRAST: 10/24/2016: Clinical history: Cystic mass adjacent to the left parotid gland on ultrasound. Comparison: MRI brain 05/25/2008, 09/19/2007, soft-tissue neck US 10/23/2016. Technique: Axial T1 and fat suppressed T2 with a coronal T1 sequences followed by infusion of 11.5 mL as of ProHance (half-dose for GFR less than 60) and a fat suppressed T1 sequence provided. The parotid glands are generally symmetric in size and with a few small nodes but no masses within. Submandibular glands symmetric and normal. Adjacent to the lateral pterygoid muscle and mandibular ramus, deep to the parotid and separate from the is an oval mass 17 x 14 x 19 mm. It is slightly hypointense to fat and hyperintense to muscle on T1, serially hyperintense to muscle on T2. On the fat suppressed T1 images, there was no evidence for enhancement. Review of previous studies and 2008 there is a 7 mm hyperintense focus in the same location most consistent with a small cyst. This has increased in size over the past decade. As a capsular margin does not invade the parotid or lateral pterygoid muscle. Impression: 1. A 19 x 17 x 14 mm oval well-defined encapsulated lesion in the left neck between the lateral pterygoid and parotid gland and adjacent to the ramus of the mandible. This is most consistent with a small neck cyst which has increased gradually in size since 2007 and was in fact also visible at 6.5 mm in 2006, so slowly progressive over a decade. This has non-aggressive features. I do not see other associated findings but it could be a branchial cleft cyst or other similar nonaggressive process. No other findings. Signed by Mike Richter MD 10/24/2016 04:50 P
[2016-10-24] MEDS: oxyCODONE 20 MG CR TAB PO SCH (20:10)
[2016-10-24 22:00] VITALS: BP 126/66
[2016-10-25] MEDS: CLINDAMYCIN 600 MG in APPROPRIATE DILUENT 1 EA IV SCH ×3 (02:19→15:21)
[2016-10-25] MEDS: NAFCILLIN SOD 2 GM in D5W MINI-BAG PLUS 100 ML IV SCH ×2 (03:04→11:13)
[2016-10-25] MEDS: PERCOCET 5MG/325MG TAB PO PRN ×3 (03:07→16:50)
[2016-10-25] MEDS: LEVOTHYROXINE 0.05 MG TAB (50 MCG) PO SCH (05:40)
[2016-10-25 06:00] VITALS: BP 134/63
[2016-10-25 06:31] LABS: MEAN CORPUSCULAR HEMOGLOBIN 28.3 pg (27.0-33.0); MEAN CORPUSCULAR HGB CONC 32.1 g/dl (32.0-36.5); MEAN CORPUSCULAR VOLUME 88.1 fl (80.0-96.0); RED CELL DISTRIBUTION WIDTH 15.9 % (11.5-14.5); WHITE BLOOD COUNT 4.4 K/mm3 (4.0-10.0)
[2016-10-25 06:48] LABS: ALBUMIN 2.3 GM/DL (3.2-5.2); ALBUMIN/GLOBULIN RATIO 0.45 (1.00-1.93); BILIRUBIN,TOTAL 1.1 MG/DL (0.2-1.0); CALCIUM LEVEL 8.3 MG/DL (8.8-10.2); CREATININE FOR GFR 1.18 MG/DL (0.55-1.02); GLOMERULAR FILTRATION RATE 49.4 (>45); POTASSIUM SERUM 3.6 MEQ/L (3.5-5.1); TOTAL PROTEIN 7.4 GM/DL (6.4-8.2)
[2016-10-25] MEDS: HumaLOG INSULIN (NovoLOG) PER UNIT SC SCH ×4 (08:10→20:57)
[2016-10-25 08:20] VITALS: BP 112/56
[2016-10-25] MEDS: METOPROLOL SUCC (TopROL XL) 50MG **XL** TAB PO SCH (09:00)
--- NOTE | 2016-10-25 09:47 | IPNPDOC ---
Assessment/Plan Date Seen The patient was seen on 10/25/16. Attending Note: I saw and examined Ms. Klein today; I d/w KINA Simpson and I agree with her note below. Patient's parotitis is much improved today - she has less erythema and less swelling over her left parotid gland and neck. Will stop IV antibiotics, start PO clindamycin for 6 additional days, and make ALC status. (KES) Problems Problems: (1) Parotitis, acute Status: Acute Problem Text: Improved on abx. Did not see yesterday, but compared to prev note , seems to be receding. Could be due to obstructing stone. Will get u/s to eval for stone, as infection will not clear readily if bacteria are trapped. No purulent drainage in the mouth. - cont hot compresses - cont abx day 2 - sour lemon to help contract gland 10/24 - still swollen and tneder. US reviewed - Get MRI to further evaluate ? carotid mass 10/25 - Improving - switch to oral CLinadamycin MRI neck reviewed - chronic cyst - very slowly progressively enlarged c/w 2006 (2) Right humeral fracture Status: Acute Response to Treatment: Stable Problem Specific Plan: Consult Specialist, Monitor Clinically Problem Text: Admitted d/t inability to ambulate with a walker with her R humerus fracture. Ortho recommends sling, with NWB of RUYue, can use HemiCane. Will need followup the week of Oct 29. Pt not reporting pain today. Will plan on outpatient followup. 10/24 - Pain not well controlled I will increase oxycontin to 20 BID. Continue Percocet prn (Patient has untreated RENEE so need to be careful with escalating doses of narcotics causing sedation/apnea) Ortho [id number] f/u x-ray of humerus yesterday and they will come back today to review this and see patient. (3) Morbid obesity with BMI of 50.0-59.9, adult Status: Chronic Response to Treatment: Stable Problem Specific Plan: Monitor Clinically (4) End stage liver disease Status: Chronic Response to Treatment: Stable, Improving Problem Specific Plan: Monitor Clinically Problem Text: Cont home meds. Continue to monitor labs (5) T2DM (type 2 diabetes mellitus) Status: Chronic Response to Treatment: Improving Problem Specific Plan: Monitor Clinically Problem Text: Cont home meds, also on SSI. (6) Accident due to mechanical fall without injury Status: Acute Problem Specific Plan: Monitor Clinically Problem Text: Fell [place] Plan / VTE VTE Prophylaxis Ordered?: Yes (SQ heparin) Disposition SNF today 10/25 Subjective Review of Systems CC/HPI The patient is a 61-year-old female admitted with a reason for visit of Right Humeral Fracture. Events since last encounter Less pain over left parotid and in neck today. Constitutional: Denies: Chills, Fever Pulmonary: Denies: Cough, Dyspnea Cardiovascular: Denies: Chest Pain, Orthopnea, Palpitations Gastrointestinal: Denies: Abdominal Pain, Constipation, Diarrhea, Nausea, Vomiting Objective Physical Examination General Exam: Positive: Alert (sitting up in chair today - looks much more comfortable), No Acute Distress ENT Exam: Positive: Mucous membr. moist/pink, Other ENT (redness, hard induration, and pain of the L cheek, midly tender submandibular salivary gland on R - less erytnma and swelling and tenderness today 10/25), Pharynx Normal Chest Exam: Positive: Clear to auscultation, Normal air movement Heart Exam: Positive: Normal S1, Normal S2, Rate Normal Abdomen Exam: Positive: Normal bowel sounds, Soft, Negative: Tenderness Extremity Exam: Positive: Edema (chronic venous insuff changes), Other (R arm in sling) Skin Exam: Positive: Rash (erythema over left parotid gland spreading down cheek, neck and behind left ear) Lymph Nodes: Enlarged: Left Neck Vital Signs/I&O Vital Signs Date Time Temp Pulse Resp B/P Pulse Ox O2 Delivery O2 Flow Rate FiO2 10/25/16 08:20 96.6 56 18 112/56 97 Room Air I&O- Last 24 Hours up to 6 AM 10/25/16 06:00 Intake Total 1410 ml Output Total 0 ml Balance 1410 ml Laboratory Data Labs 24H Laboratory Tests 2 10/24/16 11:21: Bedside Glucose (Misc Panel) 188H 10/24/16 17:06: Bedside Glucose (Misc Panel) 139H 10/24/16 20:33: Bedside Glucose (Misc Panel) 233H 10/25/16 06:06: Blood Urea Nitrogen 14, Creatinine 1.18H, Sodium Level 138, Potassium Level 3.6 , Chloride Level 104, Carbon Dioxide Level 24, Calcium Level 8.3L, Aspartate Amino Transf (AST/SGOT) 23, Alanine Aminotransferase (ALT/SGPT) 14, Alkaline Phosphatase 101, Total Bilirubin 1.1H, Total Protein 7.4, Albumin 2.3L, Albumin/ Globulin Ratio 0.45L, Anion Gap 10, Glomerular Filtration Rate 49.4 CBC/BMP Laboratory Tests 10/25/16 06:06 Calcium Level 8.3 L, Aspartate Amino Transf (AST/SGOT) 23, Alanine Aminotransferase (ALT/SGPT) 14, Alkaline Phosphatase 101, Total Bilirubin 1.1 H , Total Protein 7.4, Albumin 2.3 L, Red Blood Count 3.99 L, Mean Corpuscular Volume 88.1, Mean Corpuscular Hemoglobin 28.3, Mean Corpuscular Hemoglobin Concent 32.1, Red Cell Distribution Width 15.9 H FSBS Laboratory Tests Test 10/24/16 11:21 10/24/16 17:06 10/24/16 20:33 Range/Units Bedside Glucose (Misc Panel) 188 139 233 80-115 MG/DL ETHEL JOSEPH PA-C Oct 25, 2016 09:47 FRANCINE LUCAS MD Oct 25, 2016 15:55
--- NOTE | 2016-10-25 09:58 | IPNPDOC ---
Assessment/Plan Date Seen The patient was seen on 10/25/16. Attending Note: I saw and examined patient - will switch to PO clindamycin. Please see my note on previous note from today. (KES) Problems Problems: (1) Parotitis, acute Status: Acute Problem Text: Improved on abx. Did not see yesterday, but compared to prev note , seems to be receding. Could be due to obstructing stone. Will get u/s to eval for stone, as infection will not clear readily if bacteria are trapped. No purulent drainage in the mouth. - cont hot compresses - cont abx day 2 - sour lemon to help contract gland 10/24 - still swollen and tneder. US reviewed - Get MRI to further evaluate ? carotid mass 10/25 - Improving - PAtient allergic to Quinolones which makes switch to oral abx a challenge - Normally would switch to CLinda and CIpro (for Pseudomonas coverage) - I'm not sure if oral Flagyl would be an appropriate substitute. Could switch to Augmentin and Zyvox if not concerned about pseudomonas. D/W attending MRI neck reviewed - chronic cyst - very slowly progressively enlarged c/w 2006 (2) Right humeral fracture Status: Acute Response to Treatment: Stable Problem Specific Plan: Consult Specialist, Monitor Clinically Problem Text: Admitted d/t inability to ambulate with a walker with her R humerus fracture. Ortho recommends sling, with NWB of JORDAN, can use HemiCane. Will need followup the week of Oct 29. Pt not reporting pain today. Will plan on outpatient followup. 10/24 - Pain not well controlled I will increase oxycontin to 20 BID. Continue Percocet prn (Patient has untreated RENEE so need to be careful with escalating doses of narcotics causing sedation/apnea) Ortho [id number] f/u x-ray of humerus yesterday and they will come back today to review this and see patient. (3) Morbid obesity with BMI of 50.0-59.9, adult Status: Chronic Response to Treatment: Stable Problem Specific Plan: Monitor Clinically (4) End stage liver disease Status: Chronic Response to Treatment: Stable, Improving Problem Specific Plan: Monitor Clinically Problem Text: Cont home meds. Continue to monitor labs (5) T2DM (type 2 diabetes mellitus) Status: Chronic Response to Treatment: Improving Problem Specific Plan: Monitor Clinically Problem Text: Cont home meds, also on SSI. (6) Accident due to mechanical fall without injury Status: Acute Problem Specific Plan: Monitor Clinically Problem Text: Fell [place] Plan / VTE VTE Prophylaxis Ordered?: Yes (SQ heparin) Subjective Review of Systems CC/HPI The patient is a 61-year-old female admitted with a reason for visit of Right Humeral Fracture. Objective Physical Examination General Exam: Positive: Alert (sitting up in chair today - looks much more comfortable), No Acute Distress ENT Exam: Positive: Mucous membr. moist/pink, Other ENT (redness, hard induration, and pain of the L cheek, midly tender submandibular salivary gland on R - less erytnma and swelling and tenderness today /), Pharynx Normal Chest Exam: Positive: Clear to auscultation, Normal air movement Heart Exam: Positive: Normal S1, Normal S2, Rate Normal Abdomen Exam: Positive: Normal bowel sounds, Soft, Negative: Tenderness Extremity Exam: Positive: Edema (chronic venous insuff changes), Other (R arm in sling) Skin Exam: Positive: Rash (erythema over left parotid gland spreading down cheek, neck and behind left ear) Lymph Nodes: Enlarged: Left Neck Vital Signs/I&O Vital Signs Date Time Temp Pulse Resp B/P Pulse Ox O2 Delivery O2 Flow Rate FiO2 10/25/16 08:20 96.6 56 18 112/56 97 Room Air I&O- Last 24 Hours up to 6 AM 10/25/16 06:00 Intake Total 1410 ml Output Total 0 ml Balance 1410 ml Laboratory Data Labs 24H Laboratory Tests 2 10/24/16 11:21: Bedside Glucose (Misc Panel) 188H 10/24/16 17:06: Bedside Glucose (Misc Panel) 139H 10/24/16 20:33: Bedside Glucose (Misc Panel) 233H 10/25/16 06:06: Blood Urea Nitrogen 14, Creatinine 1.18H, Sodium Level 138, Potassium Level 3.6 , Chloride Level 104, Carbon Dioxide Level 24, Calcium Level 8.3L, Aspartate Amino Transf (AST/SGOT) 23, Alanine Aminotransferase (ALT/SGPT) 14, Alkaline Phosphatase 101, Total Bilirubin 1.1H, Total Protein 7.4, Albumin 2.3L, Albumin/ Globulin Ratio 0.45L, Anion Gap 10, Glomerular Filtration Rate 49.4 CBC/BMP Laboratory Tests 10/25/16 06:06 Calcium Level 8.3 L, Aspartate Amino Transf (AST/SGOT) 23, Alanine Aminotransferase (ALT/SGPT) 14, Alkaline Phosphatase 101, Total Bilirubin 1.1 H , Total Protein 7.4, Albumin 2.3 L, Red Blood Count 3.99 L, Mean Corpuscular Volume 88.1, Mean Corpuscular Hemoglobin 28.3, Mean Corpuscular Hemoglobin Concent 32.1, Red Cell Distribution Width 15.9 H FSBS Laboratory Tests Test 10/24/16 11:21 10/24/16 17:06 10/24/16 20:33 Range/Units Bedside Glucose (Misc Panel) 188 139 233 80-115 MG/DL ETHEL JOSEPH PA-C Oct 25, 2016 09:58 FRANCINE LUCAS MD Oct 25, 2016 15:57
[2016-10-25] MEDS: SPIRONOLACTONE 50 MG TAB PO SCH (10:59)
[2016-10-25] MEDS: tiZANidine 4 MG TAB PO SCH ×3 (10:59→21:48)
[2016-10-25] MEDS: POTASSIUM CHLORIDE 10 MEQ SR TABLET PO SCH ×2 (10:59→21:49)
[2016-10-25] MEDS: FLUoxetine 20 MG CAP PO SCH (10:59)
[2016-10-25] MEDS: MAGNESIUM OXIDE 400 MG TAB (MAG-OX) PO SCH ×2 (11:00→21:48)
[2016-10-25] MEDS: FUROSEMIDE 40 MG TAB PO SCH (11:00)
[2016-10-25] MEDS: PANTOPRAZOLE 40MG TAB (PROTONIX) PO SCH (11:00)
[2016-10-25] MEDS: HEPARIN SOD (PORCINE) 5000 UNITS/ML VIAL SC SCH ×2 (11:01→21:49)
[2016-10-25] MEDS: oxyCODONE 20 MG CR TAB PO SCH ×2 (11:04→21:49)
[2016-10-25] MEDS: LACTULOSE 20 GM/30 ML SYRUP UD PO SCH ×2 (11:05→21:00)
[2016-10-25 20:15] VITALS: BP 117/58
[2016-10-25] MEDS: CLINDAMYCIN 150 MG CAP PO SCH (21:48)
[2016-10-26] MEDS: PERCOCET 5MG/325MG TAB PO PRN ×4 (01:21→22:37)
[2016-10-26] MEDS: LEVOTHYROXINE 0.05 MG TAB (50 MCG) PO SCH (05:23)
[2016-10-26] MEDS: CLINDAMYCIN 150 MG CAP PO SCH ×3 (05:23→22:37)
[2016-10-26] MEDS: HEPARIN SOD (PORCINE) 5000 UNITS/ML VIAL SC SCH ×2 (08:25→20:30)
[2016-10-26] MEDS: LACTULOSE 20 GM/30 ML SYRUP UD PO SCH ×3 (08:25→20:34)
[2016-10-26] MEDS: HumaLOG INSULIN (NovoLOG) PER UNIT SC SCH ×4 (08:25→20:32)
[2016-10-26] MEDS: oxyCODONE 20 MG CR TAB PO SCH ×2 (08:25→20:30)
[2016-10-26] MEDS: FUROSEMIDE 40 MG TAB PO SCH (08:26)
[2016-10-26] MEDS: FLUoxetine 20 MG CAP PO SCH (08:26)
[2016-10-26] MEDS: MAGNESIUM OXIDE 400 MG TAB (MAG-OX) PO SCH ×2 (08:26→20:31)
[2016-10-26] MEDS: tiZANidine 4 MG TAB PO SCH ×3 (08:26→20:31)
[2016-10-26] MEDS: SPIRONOLACTONE 50 MG TAB PO SCH (08:26)
[2016-10-26] MEDS: METOPROLOL SUCC (TopROL XL) 50MG **XL** TAB PO SCH (08:29)
[2016-10-26] MEDS: POTASSIUM CHLORIDE 10 MEQ SR TABLET PO SCH ×2 (08:29→20:31)
[2016-10-26] MEDS: PANTOPRAZOLE 40MG TAB (PROTONIX) PO SCH (08:29)
[2016-10-26] MEDS: LIDOCAINE 5% (LIDODERM) PATCH TD SCH (23:21)
[2016-10-27] MEDS: PERCOCET 5MG/325MG TAB PO PRN ×5 (04:25→21:04)
[2016-10-27] MEDS: CLINDAMYCIN 150 MG CAP PO SCH ×3 (05:36→21:03)
[2016-10-27] MEDS: LEVOTHYROXINE 0.05 MG TAB (50 MCG) PO SCH (05:36)
[2016-10-27 06:00] VITALS: BP 113/54
[2016-10-27] MEDS: LACTULOSE 20 GM/30 ML SYRUP UD PO SCH ×2 (08:33→20:32)
[2016-10-27] MEDS: HumaLOG INSULIN (NovoLOG) PER UNIT SC SCH ×4 (08:33→20:35)
[2016-10-27] MEDS: oxyCODONE 20 MG CR TAB PO SCH ×2 (08:34→20:33)
[2016-10-27] MEDS: FLUoxetine 20 MG CAP PO SCH (08:34)
[2016-10-27] MEDS: MAGNESIUM OXIDE 400 MG TAB (MAG-OX) PO SCH ×2 (08:34→20:32)
[2016-10-27] MEDS: FUROSEMIDE 40 MG TAB PO SCH (08:34)
[2016-10-27] MEDS: SPIRONOLACTONE 50 MG TAB PO SCH (08:35)
[2016-10-27] MEDS: POTASSIUM CHLORIDE 10 MEQ SR TABLET PO SCH ×2 (08:35→20:32)
[2016-10-27] MEDS: tiZANidine 4 MG TAB PO SCH ×3 (08:35→20:32)
[2016-10-27] MEDS: PANTOPRAZOLE 40MG TAB (PROTONIX) PO SCH (08:36)
[2016-10-27] MEDS: **NOTE PATIENT COMMENT** MISC XX SCH (08:38)
[2016-10-27] MEDS: HEPARIN SOD (PORCINE) 5000 UNITS/ML VIAL SC SCH ×2 (08:38→20:32)
[2016-10-27] MEDS: METOPROLOL SUCC (TopROL XL) 50MG **XL** TAB PO SCH (08:38)
[2016-10-27] MEDS: LIDOCAINE 5% (LIDODERM) PATCH TD SCH (20:33)
[2016-10-28] MEDS: PERCOCET 5MG/325MG TAB PO PRN ×3 (01:07→13:00)
[2016-10-28] MEDS: CLINDAMYCIN 150 MG CAP PO SCH ×3 (05:10→21:47)
[2016-10-28] MEDS: LEVOTHYROXINE 0.05 MG TAB (50 MCG) PO SCH (05:56)
[2016-10-28] MEDS: HumaLOG INSULIN (NovoLOG) PER UNIT SC SCH ×2 (07:30→12:00)
[2016-10-28] MEDS: **NOTE PATIENT COMMENT** MISC XX SCH (09:00)
[2016-10-28] MEDS ORDERED: ONDANSETRON 4 MG ORAL DISINTEGRATING TAB (S0181) SL SCH (11:00)
[2016-10-28] MEDS ORDERED: ONDANSETRON 4 MG ORAL DISINTEGRATING TAB (S0181) SL PRN (11:15)
[2016-10-28 11:20] VITALS: BP 134/65
[2016-10-28] MEDS: FLUoxetine 20 MG CAP PO SCH (11:42)
[2016-10-28] MEDS: LACTULOSE 20 GM/30 ML SYRUP UD PO SCH ×2 (11:42→20:21)
[2016-10-28] MEDS: MAGNESIUM OXIDE 400 MG TAB (MAG-OX) PO SCH ×2 (11:43→20:19)
[2016-10-28] MEDS: HEPARIN SOD (PORCINE) 5000 UNITS/ML VIAL SC SCH ×2 (11:43→20:20)
[2016-10-28] MEDS: FUROSEMIDE 40 MG TAB PO SCH (11:43)
[2016-10-28] MEDS: oxyCODONE 20 MG CR TAB PO SCH (11:44)
[2016-10-28] MEDS: tiZANidine 4 MG TAB PO SCH ×3 (11:45→20:19)
[2016-10-28] MEDS: POTASSIUM CHLORIDE 10 MEQ SR TABLET PO SCH ×2 (11:45→20:19)
[2016-10-28] MEDS: PANTOPRAZOLE 40MG TAB (PROTONIX) PO SCH (11:45)
[2016-10-28] MEDS: SPIRONOLACTONE 50 MG TAB PO SCH (11:45)
[2016-10-28] MEDS: METOPROLOL SUCC (TopROL XL) 50MG **XL** TAB PO SCH (11:46)
[2016-10-28 12:12] LABS: MEAN CORPUSCULAR HEMOGLOBIN 28.6 pg (27.0-33.0); MEAN CORPUSCULAR HGB CONC 32.1 g/dl (32.0-36.5); RED CELL DISTRIBUTION WIDTH 16.7 % (11.5-14.5); WHITE BLOOD COUNT 3.3 K/mm3 (4.0-10.0)
[2016-10-28 12:29] LABS: ALBUMIN 2.6 GM/DL (3.2-5.2); ALBUMIN/GLOBULIN RATIO 0.49 (1.00-1.93); BILIRUBIN,TOTAL 0.8 MG/DL (0.2-1.0); CALCIUM LEVEL 8.7 MG/DL (8.8-10.2); CREATININE FOR GFR 1.05 MG/DL (0.55-1.02); GLOMERULAR FILTRATION RATE 56.5 (>45); TOTAL PROTEIN 7.9 GM/DL (6.4-8.2)
[2016-10-28] MEDS: ANALGESIC BALM CRM 120 GM TOP PRN ×2 (13:01→20:21)
--- NOTE | 2016-10-28 13:34 | IPNPDOC ---
Assessment/Plan Date Seen The patient was seen on 10/28/16. Problems Problems: (1) Nausea & vomiting Status: Acute Problem Text: No abd pain or tenderness, labs normal suspect this was from getting Clinda on empty stomach which nurses will avoid from now on continue Zofran prn (2) Parotitis, acute Status: Acute Problem Text: Improved on abx. Did not see yesterday, but compared to prev note , seems to be receding. Could be due to obstructing stone. Will get u/s to eval for stone, as infection will not clear readily if bacteria are trapped. No purulent drainage in the mouth. - cont hot compresses - cont abx day 2 - sour lemon to help contract gland 10/24 - still swollen and tneder. US reviewed - Get MRI to further evaluate ? carotid mass 10/25 - Improving - PAtient allergic to Quinolones which makes switch to oral abx a challenge - Normally would switch to CLinda and CIpro (for Pseudomonas coverage) - I'm not sure if oral Flagyl would be an appropriate substitute. Could switch to Augmentin and Zyvox if not concerned about pseudomonas. D/W attending MRI neck reviewed - chronic cyst - very slowly progressively enlarged c/w 10/28 - clinically resolving on oral clindamycin - Abx D#7/ (Nurse informed to give Clinda with food to avoid n/v) (3) Right humeral fracture Status: Acute Response to Treatment: Stable Problem Specific Plan: Consult Specialist, Monitor Clinically Problem Text: Admitted d/t inability to ambulate with a walker with her R humerus fracture. Ortho recommends sling, with NWB of JORDAN, can use HemiCane. Will need followup the week of Oct 29. Pt not reporting pain today. Will plan on outpatient followup. 10/24 - Pain not well controlled I will increase oxycontin to 20 BID. Continue Percocet prn (Patient has untreated RENEE so need to be careful with escalating doses of narcotics causing sedation/apnea) Ortho [id number] f/u x-ray of humerus yesterday and they will come back today to review this and see patient. 10/28 - patient continues to c/o pain in her right shoulder, but also left shoulder and neck Review of her chronic pain regimen at home shows that she was getting Oxycodone 5 mg 1 1/2 tab TID prn I will switch her regimen to this. I am hesitant to increase her pain meds d/t her h/o RENEE - untreated (noncompliant with CPAP) (4) T2DM (type 2 diabetes mellitus) Status: Chronic Response to Treatment: Improving Problem Specific Plan: Monitor Clinically Problem Text: Normally on Toujeo 17 units at home, but here she is only on SSI coverage and barely requiring any of that. Most days getting only 6 - 8 units of coverage I will start Lantus 5 units daily d/C SSI Monitor FSBS (5) Morbid obesity with BMI of 50.0-59.9, adult Status: Chronic Response to Treatment: Stable Problem Specific Plan: Monitor Clinically (6) End stage liver disease Status: Chronic Response to Treatment: Stable, Improving Problem Specific Plan: Monitor Clinically Problem Text: Cont home meds. Continue to monitor labs (7) Accident due to mechanical fall without injury Status: Acute Problem Specific Plan: Monitor Clinically Problem Text: Fell while in [place]. Plan / VTE VTE Prophylaxis Ordered?: Yes (SQ heparin) Subjective Review of Systems CC/HPI The patient is a 61-year-old female admitted with a reason for visit of Right Humeral Fracture. Events since last encounter Patient had vomiting x 2 this am - she thinks it was from taking the Clindamycin on an empty stomach this am. No abd pain. Normal BMs - loose d/t Lactulose Constitutional: Denies: Chills, Fever Pulmonary: Denies: Cough, Dyspnea Cardiovascular: Denies: Chest Pain, Orthopnea, Palpitations Gastrointestinal: Reports: Diarrhea (chronic - at baseline on lactulose), Nausea, Vomiting, Denies: Abdominal Pain Musculoskeletal: Reports: Neck Pain, Shoulder Pain (BL shoulder pain) Objective Physical Examination General Exam: Positive: Alert (sitting up in chair today - looks much more comfortable), No Acute Distress ENT Exam: Positive: Mucous membr. moist/pink, Other ENT (left parotid area without erythema warmth or swelling or tenderness - much improved), Pharynx Normal Chest Exam: Positive: Clear to auscultation, Normal air movement Heart Exam: Positive: Normal S1, Normal S2, Rate Normal Abdomen Exam: Positive: Normal bowel sounds, Soft, Negative: Tenderness Extremity Exam: Positive: Other (right arm in sling), Negative: Edema Lymph Nodes: Enlarged: Left Neck Vital Signs/I&O Vital Signs Date Time Temp Pulse Resp B/P Pulse Ox O2 Delivery O2 Flow Rate FiO2 10/28/16 13:00 16 Room Air 10/28/16 11:46 63 134/65 10/27/16 06:00 96.7 97 I&O- Last 24 Hours up to 6 AM 10/28/16 06:00 Intake Total 1020 ml Output Total 0 ml Balance 1020 ml Laboratory Data Labs 24H Laboratory Tests 2 10/27/16 16:48: Bedside Glucose (Misc Panel) 123H 10/27/16 20:35: Bedside Glucose (Misc Panel) 206H 10/28/16 06:12: Bedside Glucose (Misc Panel) 113 10/28/16 11:56: Bedside Glucose (Misc Panel) 96 10/28/16 11:58: Blood Urea Nitrogen 13, Creatinine 1.05H, Sodium Level 138, Potassium Level 4.0 , Chloride Level 104, Carbon Dioxide Level 25, Calcium Level 8.7L, Aspartate Amino Transf (AST/SGOT) 46H, Alanine Aminotransferase (ALT/SGPT) 23, Alkaline Phosphatase 122H, Total Bilirubin 0.8, Total Protein 7.9, Albumin 2.6L, Albumin/ Globulin Ratio 0.49L, Anion Gap 9, Glomerular Filtration Rate 56.5 CBC/BMP Laboratory Tests 10/28/16 11:58 Calcium Level 8.7 L, Aspartate Amino Transf (AST/SGOT) 46 H, Alanine Aminotransferase (ALT/SGPT) 23, Alkaline Phosphatase 122 H, Total Bilirubin 0.8 , Total Protein 7.9, Albumin 2.6 L, Red Blood Count 3.78 L, Mean Corpuscular Volume 89.0, Mean Corpuscular Hemoglobin 28.6, Mean Corpuscular Hemoglobin Concent 32.1, Red Cell Distribution Width 16.7 H FSBS Laboratory Tests Test 10/27/16 16:48 10/27/16 20:35 10/28/16 06:12 10/28/16 11:56 Range/Units Bedside Glucose (Misc Panel) 123 206 113 96 80-115 MG/DL ETHEL JOSEPH PA-C Oct 28, 2016 13:34
--- NOTE | 2016-10-28 14:53 | REP ---
CERVICAL SPINE SERIES: Three views. HISTORY: Neck pain after fall. FINDINGS: Lateral and swimmers lateral views show preserved vertebral body heights and normal alignment. There is some reversal and straightening of the normal cervical lordosis. No fracture or collapse is seen. AP view is unremarkable. There is some facet hypertrophy bilaterally. Degenerative disc changes are seen at C5-6. IMPRESSION: Mild degenerative spondylosis. Straightening. No traumatic abnormality seen. CT scanning is more sensitive than plain radiography for fracture. Signed by Roney Dorsey MD 10/28/2016 03:09 P
--- NOTE | 2016-10-28 14:54 | REP ---
LEFT SHOULDER: Four views. HISTORY: Left shoulder pain. FINDINGS: There is acromioclavicular joint osteoarthritic spurring. There is narrowing of the subacromial space indicating degeneration of the rotator cuff. Mild glenohumeral spurring is seen. No acute bony abnormality is seen. IMPRESSION: Degenerative tear rotator cuff. AC joint and glenohumeral joint osteoarthritis. No acute bony abnormality. Signed by Roney Dorsey MD 10/28/2016 03:09 P
[2016-10-28] MEDS: oxyCODONE 5MG TAB PO PRN (17:51)
[2016-10-28] MEDS: LEVEMIR (INSULIN DETEMIR) 1 UNITS/0.01ML SC SCH (20:20)
[2016-10-28] MEDS: LIDOCAINE 5% (LIDODERM) PATCH TD SCH (20:20)
[2016-10-28] MEDS ORDERED: oxyCODONE 5MG TAB PO ONE (22:45)
[2016-10-29] MEDS: ANALGESIC BALM CRM 120 GM TOP PRN ×3 (02:02→21:20)
[2016-10-29] MEDS: ACETAMINOPHEN TAB 650MG DOSE (2X325MG) PO PRN ×3 (02:02→21:19)
[2016-10-29] MEDS: LEVOTHYROXINE 0.05 MG TAB (50 MCG) PO SCH (05:39)
[2016-10-29] MEDS: CLINDAMYCIN 150 MG CAP PO SCH ×3 (05:40→21:17)
[2016-10-29 06:00] VITALS: BP 107/54
[2016-10-29] MEDS: oxyCODONE 5MG TAB PO PRN ×2 (07:18→16:25)
[2016-10-29] MEDS: METOPROLOL SUCC (TopROL XL) 50MG **XL** TAB PO SCH (09:00)
[2016-10-29] MEDS: **NOTE PATIENT COMMENT** MISC XX SCH (09:00)
[2016-10-29] MEDS: FLUoxetine 20 MG CAP PO SCH (09:35)
[2016-10-29] MEDS: LACTULOSE 20 GM/30 ML SYRUP UD PO SCH ×2 (09:36→21:16)
[2016-10-29] MEDS: MAGNESIUM OXIDE 400 MG TAB (MAG-OX) PO SCH ×2 (09:36→21:17)
[2016-10-29] MEDS: HEPARIN SOD (PORCINE) 5000 UNITS/ML VIAL SC SCH ×2 (09:36→21:17)
[2016-10-29] MEDS: POTASSIUM CHLORIDE 10 MEQ SR TABLET PO SCH ×2 (09:36→21:17)
[2016-10-29] MEDS: tiZANidine 4 MG TAB PO SCH ×3 (09:36→21:17)
[2016-10-29] MEDS: PANTOPRAZOLE 40MG TAB (PROTONIX) PO SCH (09:36)
[2016-10-29] MEDS: SPIRONOLACTONE 50 MG TAB PO SCH (09:37)
[2016-10-29] MEDS: FUROSEMIDE 40 MG TAB PO SCH (09:37)
[2016-10-29] MEDS: LIDOCAINE 5% (LIDODERM) PATCH TD SCH (21:16)
[2016-10-29] MEDS: LEVEMIR (INSULIN DETEMIR) 1 UNITS/0.01ML SC SCH (21:18)
[2016-10-29 22:00] VITALS: BP 101/51
[2016-10-30] MEDS: oxyCODONE 5MG TAB PO PRN ×2 (04:41→13:02)
[2016-10-30] MEDS: LEVOTHYROXINE 0.05 MG TAB (50 MCG) PO SCH (05:36)
[2016-10-30] MEDS: CLINDAMYCIN 150 MG CAP PO SCH (05:36)
[2016-10-30 06:00] VITALS: BP 131/63
[2016-10-30] MEDS: LACTULOSE 20 GM/30 ML SYRUP UD PO SCH (08:27)
[2016-10-30] MEDS: MAGNESIUM OXIDE 400 MG TAB (MAG-OX) PO SCH (08:27)
[2016-10-30 08:28] VITALS: BP 131/63
[2016-10-30] MEDS: FUROSEMIDE 40 MG TAB PO SCH (08:28)
[2016-10-30] MEDS: FLUoxetine 20 MG CAP PO SCH (08:28)
[2016-10-30] MEDS: POTASSIUM CHLORIDE 10 MEQ SR TABLET PO SCH (08:28)
[2016-10-30] MEDS: METOPROLOL SUCC (TopROL XL) 50MG **XL** TAB PO SCH (08:28)
[2016-10-30] MEDS: HEPARIN SOD (PORCINE) 5000 UNITS/ML VIAL SC SCH (08:29)
[2016-10-30] MEDS: SPIRONOLACTONE 50 MG TAB PO SCH (08:29)
[2016-10-30] MEDS: tiZANidine 4 MG TAB PO SCH (08:29)
[2016-10-30] MEDS: PANTOPRAZOLE 40MG TAB (PROTONIX) PO SCH (08:29)
[2016-10-30] MEDS: **NOTE PATIENT COMMENT** MISC XX SCH (08:29)
[2016-10-30] MEDS ORDERED: CLEO150C PO (09:59)
[2016-10-30] MEDS: ACETAMINOPHEN TAB 650MG DOSE (2X325MG) PO PRN (10:39)
[2016-10-30] MEDS ORDERED: LIDO4CRE4 EXT (12:44)
[2016-10-30] MEDS ORDERED: LIDO4CRE2 TOP (13:34)
== END 2016-10-30 13:03 | disposition home health service (06) | DRG 342 ==
LOC: M ED 02:18 → M ED INP 05:51 → M MSPAV 08:10
PROVIDERS: ADMIT Internal Medicine; ATTEND Family Medicine
DX: S42.321A Displaced transverse fracture of shaft of humerus, right arm, initial encounter for closed fracture (principal); D61.818 Other pancytopenia; K76.6 Portal hypertension; I13.0 Hypertensive heart and chronic kidney disease with heart failure and stage 1 through stage 4 chronic kidney disease, or unspecified chronic kidney disease; K74.60 Unspecified cirrhosis of liver; Z68.43 Body mass index [BMI] 50.0-59.9, adult; I50.32 Chronic diastolic (congestive) heart failure; N18.3 Chronic kidney disease, stage 3 (moderate); E66.01 Morbid (severe) obesity due to excess calories; E55.9 Vitamin D deficiency, unspecified; K72.90 Hepatic failure, unspecified without coma; W18.09XA Striking against other object with subsequent fall, initial encounter; Y93.E8 Activity, other personal hygiene; Y92.012 Bathroom of single-family (private) house as the place of occurrence of the external cause; I89.0 Lymphedema, not elsewhere classified; G47.33 Obstructive sleep apnea (adult) (pediatric); K11.21 Acute sialoadenitis; E78.5 Hyperlipidemia, unspecified; J44.9 Chronic obstructive pulmonary disease, unspecified; E11.9 Type 2 diabetes mellitus without complications; K21.9 Gastro-esophageal reflux disease without esophagitis; K44.9 Diaphragmatic hernia without obstruction or gangrene; M85.80 Other specified disorders of bone density and structure, unspecified site; J30.9 Allergic rhinitis, unspecified; Z90.710 Acquired absence of both cervix and uterus; Z79.891 Long term (current) use of opiate analgesic; Z79.899 Other long term (current) drug therapy

== ENCOUNTER 2016-12-28 11:06 | Observation (INO) | payer OTHER ==
[~2016-12-28] VITALS: Ht 167.6 cm; Wt 114.6 kg
[~2016-12-28 11:06] MED LIST changes: +CLEO150C PO; +GABA-282 PO; -GABA300C3 PO; +LEVO50TA5 PO; +LIDO4CRE2 TOP; +LIDO4CRE4 EXT; +MAGN400T5 PO; +PROZ20CA11 PO; +TIZA4CAP3 PO; +TOPR50TA PO
--- NOTE | 2016-12-28 12:24 | REP ---
Portable chest, single AP view, patient sitting: Comparison to 10/12/2016 and for 2015. The lung calderón are clear. The cardiac size is normal. The dudley, mediastinum, and bony thorax are unremarkable. Impression: Negative portable chest. No interval change Signed by Jim Del Toro MD 12/28/2016 12:16 P
[2016-12-28 12:47] LABS: BASO % 0.2 % (0.0-1.0); EOS # 0.1 K/mm3 (0.0-0.50); EOS % 1.3 % (0.0-3.0); LARGE UNSTAINED CELL # 0.1 K/mm3 (0.0-0.4); LARGE UNSTAINED CELL % 1.6 % (0.0-4.0); LYMPH % 16.5 % (24.0-44.0); MEAN CORPUSCULAR HEMOGLOBIN 29.3 pg (27.0-33.0); MEAN CORPUSCULAR HGB CONC 31.8 g/dl (32.0-36.5); MONO # 0.3 K/mm3 (0.0-0.8); MONO % 5.5 % (0.0-5.0); NEUTROPHILS # 4.2 K/mm3 (1.8-7.7); NEUTROPHILS % 74.8 % (36.0-66.0); PLATELET COUNT, AUTOMATED 152 k/mm3 (150-450); RED CELL DISTRIBUTION WIDTH 13.5 % (11.5-14.5); WHITE BLOOD COUNT 5.7 K/mm3 (4.0-10.0)
[2016-12-28 13:07] LABS: ALBUMIN 2.9 GM/DL (3.2-5.2); ALBUMIN/GLOBULIN RATIO 0.46 (1.00-1.93); ALKALINE PHOSPHATASE 129 U/L (45-117); ALT/SGPT 22 U/L (12-78); ANION GAP 7 MEQ/L (8-16); AST/SGOT 23 U/L (15-37); BILIRUBIN,DIRECT 0.3 MG/DL (0.0-0.2); BLOOD UREA NITROGEN 15 MG/DL (7-18); CALCIUM LEVEL 8.3 MG/DL (8.8-10.2); CARBON DIOXIDE LEVEL 25 MEQ/L (21-32); CHLORIDE LEVEL 103 MEQ/L (98-107); CREATININE FOR GFR 1.27 MG/DL (0.55-1.02); GLOMERULAR FILTRATION RATE 45.4 (>45); GLUCOSE, FASTING 215 MG/DL (80-110); POTASSIUM SERUM 3.8 MEQ/L (3.5-5.1); SODIUM LEVEL 135 MEQ/L (136-145); TOTAL PROTEIN 9.2 GM/DL (6.4-8.2)
[2016-12-28 13:16] LABS: BILIRUBIN,TOTAL 0.8 MG/DL (0.2-1.0)
[2016-12-28 14:11] LABS: ABG BASE EXCESS -0.1 (-2.0-2.0); ABG PARTIAL PRESSURE CO2 37.1 mmHg (35.0-45.0); ABG PARTIAL PRESSURE O2 85.6 mmHg (75.0-100.0); ABG STANDARD HCO3 24.4 MEQ/L (22.0-26.0); ABG TOTAL CO2 25.1 MEQ/L (23.0-31.0); ABG pH (ARTERIAL) 7.428 UNITS (7.350-7.450)
--- NOTE | 2016-12-28 14:13 | REP ---
THORACIC SPINE: AP and lateral view of the thoracic spine performed. There is no compression fracture. There is no malalignment with normal thoracic kyphosis. There is mild diffuse spurring. There is mild disc space narrowing and subchondral sclerosis at virtually all levels. The posterior elements are intact. IMPRESSION: Mild diffuse degenerative changes. No fracture or dislocation. Signed by Jim Calderon MD 12/28/2016 05:40 P
--- NOTE | 2016-12-28 14:15 | REP ---
LUMBOSACRAL SPINE: Five views of the lumbosacral spine performed. There is no compression fracture. There is normal lumbar lordosis with no spondylolysis or spondylolisthesis. There is mild diffuse spurring. There is mild disc space narrowing and subchondral sclerosis at all levels. The posterior elements are intact. IMPRESSION: Mild diffuse degenerative changes. No fracture or dislocation. Signed by Jim Calderon MD 12/28/2016 05:40 P
[2016-12-28] MEDS ORDERED: ONDANSETRON 4MG/2ML VIAL (J2405) IV PRN (15:45)
[2016-12-28] MEDS ORDERED: OXYC1TAB16 PO (15:54)
[2016-12-28] MEDS ORDERED: POTA20TA PO (15:54)
[2016-12-28] MEDS ORDERED: HYDR25T PO (15:54)
[2016-12-28 17:00] VITALS: BP 137/80
[2016-12-28] MEDS ORDERED: hydrOXYzine 25 MG TAB PO PRN (18:00)
[2016-12-28] MEDS ORDERED: LACTULOSE 20 GM/30 ML SYRUP UD PO ONE (18:15)
[2016-12-28] MEDS: LACTULOSE 20 GM/30 ML SYRUP UD PO SCH ×2 (18:43→21:32)
[2016-12-28] MEDS ORDERED: GLUCOSE 4 GM CHEW TABLET PO PRN (18:45)
[2016-12-28] MEDS ORDERED: GLUCAGON FOR INJ 1 MG VIAL (J1610) SC PRN (18:45)
[2016-12-28] MEDS ORDERED: DEXTROSE 50% 50 ML SYRINGE IV PRN (18:45)
[2016-12-28 19:18] LABS: CALCIUM LEVEL 7.8 MG/DL (8.8-10.2); CREATININE FOR GFR 1.24 MG/DL (0.55-1.02); GLOMERULAR FILTRATION RATE 46.7 (>45); MAGNESIUM LEVEL 2.1 MG/DL (1.8-2.4); POTASSIUM SERUM 4.2 MEQ/L (3.5-5.1)
--- NOTE | 2016-12-28 19:59 | HPE ---
DATE OF ADMISSION: 12/28/2016 PRIMARY CARE PHYSICIAN: Dr. Paul Torres. CHIEF COMPLAINT: Confusion and pain on the side. 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 with hepatic encephalopathy on chronic lactulose, pancytopenia secondary to end-stage liver disease, chronic lower extremity lymphedema, congestive heart failure (CHF), diastolic dysfunction, bilateral shoulder impingement, hypertension, obstructive sleep apnea (RENEE) on continuous positive airway pressure (CPAP), hyperlipidemia, chronic obstructive pulmonary disease (COPD), type 2 diabetes on insulin, reflux, hiatal hernia, schizoaffective disorder, vitamin D deficiency, osteopenia, allergic rhinitis, portal hypertension, chronic kidney disease stage III, baseline creatinine of 1.2 to 1.3, chronic narcotic use, presents to the emergency room brought in by family with 3-4 day history of ongoing confusion. According to the daughter, patient had initially complained of right-sided pain below the axilla, thought to be secondary to muscle pain from working with physical therapy. One of the aids had helped her and they held her right arm too harshly. She had been taking her prescribed pain medications for some time and has not had any new changes in her medications. According to the daughter, she has been increasingly confused and sleepy. She has been behaving strangely and saying things that were inappropriate. For example, the daughter said she had to go to the bathroom and the patient went to go put her shoes on. She would also ask the family why they were there and how they got there. Patient admits to having been confused and not remembering, not having a good recent memory. Her ammonia level was found to be elevated in the emergency room (ER) at 60. She is at baseline creatinine level. Blood gas appears to be normal, with CO2 level of 37, pH of 7.4. There are no focal deficits. Evaluation of the right axillary pain showed negative portable x-ray. There were no falls at home. No fracture or dislocation from thoracic and spinal x-rays, with multiple degenerative disc changes. Hospitalist service was called for admission for acute hepatic encephalopathy secondary to end-stage liver disease with elevated ammonia level. She otherwise denies any fever or chills, changes in appetite, changes in vision, vomiting, nausea, chest pain. She has chronic shortness of breath, has chronic obstructive pulmonary disease (COPD). Walks with a walker usually. She has been increasingly confused and disoriented. No constipation, dysuria, urgency, frequency, fever, chills, complaints of right-sided axillary pain improved with her home dose of medications. PAST MEDICAL HISTORY: 1. Morbid obesity. 2. End-stage liver disease from idiopathic cause with hepatic encephalopathy. 3. Pancytopenia secondary to end-stage liver disease. 4. Chronic lower extremity lymphedema. 5. Congestive heart failure (CHF). 6. Diastolic dysfunction. 7. Bilateral shoulder impingement. 8. Hypertension. 9. Obstructive sleep apnea (RENEE) on continuous positive airway pressure (CPAP) . 10. Hyperlipidemia. 11. Chronic obstructive pulmonary disease (COPD). 12. Type 2 diabetes on insulin. 13. Reflux. 14. Hiatal hernia. 15. Schizoaffective disorder. 16. Vitamin D deficiency. 17. Osteopenia. 18. Allergic rhinitis. 19. Portal hypertension. 20. Chronic kidney disease stage III. 21. Chronic narcotic use. 22. Hypothyroidism. PAST SURGICAL HISTORY: Total abdominal hysterectomy, bilateral salpingo-oophorectomy. HOME MEDICATIONS: - Prozac 60 mg daily - Lasix 40 mg daily - lactulose 30 mg twice a day - Synthroid 50 mcg daily - MagOx twice a day - metoprolol 50 mg daily - Percocet 5/325 mg as needed - Protonix 40 mg daily - potassium chloride 10 mEq twice a day - spironolactone 50 daily - tizanidine 4 mg three times a day - Toujeo 17 units subcutaneous twice a day ALLERGIES: IBUPROFEN, PENICILLIN, QUINOLONES. SOCIAL HISTORY: Lives independently in [place]. Walks with a walker. REVIEW OF SYSTEMS: A 12-point system negative aside from positive findings on history of presenting illness (HPI). PHYSICAL EXAMINATION: Blood pressure 137/80, temperature 98.1, pulse 53 sinus, respiratory 20, 97% on room air. GENERAL: She is oriented to person. Able to state her name, Pat Klein, date of 1955. She is disoriented to time and states that it is 11/1996. States that she is in [place]. Pupils are equally round and reactive. Extraocular muscles intact. Following commands. Normocephalic, atraumatic. Nasal septum is midline. Dry mucous membranes. Thick neck. Unable to assess jugular venous distention. No thyromegaly. LUNGS: Clear to auscultation. No wheezing, rales or rhonchi. HEART: S1, S2. Sinus rhythm. ABDOMEN: Soft, doughy, nontender. No fluid wave. EXTREMITIES: Thick and dusky on the right leg and 1+ pitting edema. Electrocardiogram (EKG): Sinus bradycardia, ventricular rate 52. Prolonged QT, 524, 505. LABORATORY DATA: White count 5.7, hemoglobin 12, hematocrit 38, platelet count 152. Sodium 135, potassium 3.8, chloride 103, bicarbonate 25, BUN 15, creatinine 1.27, glucose 215, calcium 8.3. Total bilirubin 0.8, direct bilirubin 0.3, AST 23, ALT 22, alkaline phosphatase 129, ammonia 60. Total CK 62, MB fraction 1. Troponin less than 0.02. Brain natriuretic peptide (BNP) 528. Total protein 9.2, albumin 2.9, lipase 99. IMAGING STUDIES: Lumbar/thoracic spine x-ray: No acute fracture or dislocation. Chest x-ray: Shows negative portable chest. No interval change. ASSESSMENT AND PLAN: This is a 61-year-old female with history of morbid obesity, end-stage liver disease, type 2 diabetes, pancytopenia, chronic lower extremity lymphedema, congestive heart failure (CHF), diastolic dysfunction, hypertension, sleep apnea on continuous positive airway pressure (CPAP), hyperlipidemia, chronic obstructive pulmonary disease (COPD), reflux, hiatal hernia, schizoaffective disorder, vitamin D deficiency, portal hypertension, chronic kidney disease stage III, and chronic narcotic use, presents with 3-4 day history of worsening confusion, as well as complaints of right flank and axillary pain. Evaluation included chest x-ray, which showed no acute findings, thoracic/lumbar spine x-ray, which was negative for acute fracture or dislocation. Patient had elevated ammonia level of 60, normal arterial blood gas, and glucose level of 215. Patient is admitted for acute hepatic encephalopathy for observation under Dr. Paul Torres/Dr. Neumann's service, [facility]. Patient will be treated for the following issues: 1. Acute hepatic encephalopathy secondary to end-stage liver disease from idiopathic cause. Patient will be given lactulose serially with repeat ammonia levels an neurologic checks, 2-3 bowel movements daily. 2. Abnormal EKG with prolonged QT. Will discontinue patient's Prozac for now. Avoid Zofran. Recheck 12-lead EKG. Monitor for electrolyte abnormalities. Keep potassium above 4, magnesium above 2, if possible. 3. History of congestive heart failure (CHF). Appears to be compensated. Continue spironolactone. Due to multiple doses of lactulose and possible dehydration with this, we will hold off on today's dose of Lasix. 4. End-stage liver disease with chronic pancytopenia. 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 Currently stable with normal platelets, white count and hemoglobin. 5. Chronic kidney disease, stage III. Avoid nephrotoxins. Check with all medications. Currently at baseline. Monitor input and output (I O) and daily weights. 6. Right-sided flank pain. Most likely musculoskeletal in nature. Cardiac markers, topical lidocaine. Avoid sedatives, opioids, narcotics, in light of patient's confusion. 7. Type2 diabetes. Resume consistent carbohydrate diet, sliding scale with coverage. If tolerating diet well, will continue with long-acting insulin. 8. Obstructive sleep apnea. Resume home continuous positive airway pressure (CPAP) . 9. Hyperlipidemia. Chronic. 10. Chronic obstructive pulmonary disease (COPD). Normal arterial blood gas. Nebulizer treatments as needed. 11. Reflux disease and hiatal hernia. Continue on proton pump inhibitor (PPI).
[2016-12-28] MEDS: HumaLOG INSULIN (NovoLOG) PER UNIT SC SCH (21:00)
[2016-12-28] MEDS ORDERED: tiZANidine 4 MG TAB PO SCH (21:00)
[2016-12-28] MEDS: LEVEMIR (INSULIN DETEMIR) 1 UNITS/0.01ML SC SCH (21:32)
[2016-12-28] MEDS: POTASSIUM CHLORIDE 10 MEQ SR TABLET PO SCH (21:33)
[2016-12-28] MEDS: LIDOCAINE 5% OINT 30 GM TOP SCH (21:33)
[2016-12-28] MEDS: MAGNESIUM OXIDE 400 MG TAB (MAG-OX) PO SCH (21:33)
[2016-12-28 22:00] VITALS: BP 164/77
[2016-12-29] MEDS: LACTULOSE 20 GM/30 ML SYRUP UD PO SCH ×2 (00:58→03:05)
[2016-12-29 05:17] LABS: BASO % 0.3 % (0.0-1.0); EOS % 0.8 % (0.0-3.0); LARGE UNSTAINED CELL # 0.1 K/mm3 (0.0-0.4); LYMPH # 1.2 K/mm3 (1.5-4.5); LYMPH % 18.4 % (24.0-44.0); MEAN CORPUSCULAR HEMOGLOBIN 29.5 pg (27.0-33.0); MEAN CORPUSCULAR HGB CONC 32.1 g/dl (32.0-36.5); MONO # 0.3 K/mm3 (0.0-0.8); NEUTROPHILS # 4.8 K/mm3 (1.8-7.7); NEUTROPHILS % 74.6 % (36.0-66.0); PLATELET COUNT, AUTOMATED 200 k/mm3 (150-450); RED CELL DISTRIBUTION WIDTH 13.6 % (11.5-14.5); WHITE BLOOD COUNT 6.4 K/mm3 (4.0-10.0)
[2016-12-29 05:37] LABS: ALBUMIN 2.6 GM/DL (3.2-5.2); ALBUMIN/GLOBULIN RATIO 0.48 (1.00-1.93); BILIRUBIN,TOTAL 0.8 MG/DL (0.2-1.0); CALCIUM LEVEL 8.1 MG/DL (8.8-10.2); CREATININE FOR GFR 1.25 MG/DL (0.55-1.02); GLOMERULAR FILTRATION RATE 46.2 (>45)
[2016-12-29] MEDS: LEVOTHYROXINE 0.05 MG TAB (50 MCG) PO SCH (05:57)
[2016-12-29 06:00] VITALS: BP 141/66
[2016-12-29] MEDS: HumaLOG INSULIN (NovoLOG) PER UNIT SC SCH ×4 (08:05→20:50)
[2016-12-29] MEDS: MAGNESIUM OXIDE 400 MG TAB (MAG-OX) PO SCH ×2 (08:05→20:48)
[2016-12-29] MEDS: SPIRONOLACTONE 50 MG TAB PO SCH (08:06)
[2016-12-29] MEDS: POTASSIUM CHLORIDE 10 MEQ SR TABLET PO SCH ×2 (08:06→20:48)
[2016-12-29] MEDS: PANTOPRAZOLE 40MG TAB (PROTONIX) PO SCH (08:06)
[2016-12-29] MEDS: METOPROLOL SUCC (TopROL XL) 50MG **XL** TAB PO SCH (08:06)
[2016-12-29] MEDS: LIDOCAINE 5% OINT 30 GM TOP SCH ×2 (08:07→20:50)
--- NOTE | 2016-12-29 08:28 | ECGEPIP ---
Stationary ECG Study [facility] - ED Test Date: 2016-12-28 Pat Name: HODAN FARFAN Department: Room: [place] [address] Gender: F [employer] Secretary: jeff : 1955 Requested By: Emerald Hernandez Order Number: [id number] Reading MD: Emerald Hernandez Measurements Intervals [place] Rate: 52 P: 51 MT: 151 QRS: 12 QRSD: 92 T: 37 QT: 524 QTc: 491 Interpretive Statements SINUS BRADYCARDIA PROLONGED QT INTERVAL CLINICAL CORRELATION SLOWER RATE/INCREASED QTC COMPARED 01/03/16 Electronically Signed On 12-29-2016 8:28:21 EDT by Emerald Hernandez
[2016-12-29] MEDS ORDERED: FUROSEMIDE 40 MG TAB PO SCH (09:00)
[2016-12-29] MEDS ORDERED: FLUoxetine 20 MG CAP PO SCH (09:00)
[2016-12-29 14:00] VITALS: BP 130/62
[2016-12-29] MEDS: PERCOCET 5MG/325MG TAB PO PRN ×2 (15:30→20:49)
--- NOTE | 2016-12-29 15:45 | IPNPDOC ---
Subjective Date Seen The patient was seen on 12/29/16. Subjective Chief Complaint/HPI The patient is a 61-year-old female admitted with a reason for visit of Acute Hepatic Encephalopathy. Events since last encounter Patient was admitted for 2016 for acute hepatic encephalopathy. Her ammonia remains elevated. Her mental status has improved. Patient states that she is having a lot of pain" my back in my joints." When asked to point where she's having the pain, she points to her right flank. On palpation of her right lower quadrant, right upper quadrant, and right flank, she moans in pain. She denies any urinary frequency, or burning with urination. She has no other complaints or concerns Constitutional: Reports: Other (+ pain), Denies: Chills, Fever, Malaise ENT: Denies: Head Aches Skin: Denies: Rash Pulmonary: Denies: Dyspnea Cardiovascular: Denies: Chest Pain, Palpitations Gastrointestinal: Reports: Abdominal Pain, Denies: Nausea, Vomiting Genitourinary: Reports: Other Symptoms (flank pain), Denies: Dysuria, Frequency Other systems 10 point review systems otherwise negative Objective Physical Examination General Exam: Positive: Alert, Cooperative, Other (moaning in bed) Eye Exam: Positive: Conjunctiva & lids normal, PERRLA, Negative: Sclera icteric ENT Exam: Positive: Atraumatic, Mucous membr. moist/pink Neck Exam: Positive: Supple, Negative: JVD, thyromegaly Chest Exam: Positive: Clear to auscultation, Diminished, Negative: Rales, Wheezing Heart Exam: Positive: Normal S1, Normal S2, Rate Normal, Regular Rhythm, Negative: Murmurs, Rubs Abdomen Exam: Positive: Normal bowel sounds, Soft, Tenderness (tenderness of right upper and lower quadrant), Negative: Hepatospenomegaly Extremity Exam: Positive: Normal pulses, Negative: Clubbing, Cyanosis, Edema Skin Exam: Positive: Nl turgor and temperature, Negative: Breakdown, Rash Neuro Exam: Positive: Normal Speech Psych Exam: Positive: Mental status NL, Oriented x 3 Assessment /Plan Assessment Patient is 61-year-old woman admitted for acute hepatic encephalopathy. Problems (1) Acute hepatic encephalopathy Status: Acute Response to Treatment: Improving Problem Text: Patient was admitted 12/28/2016 for acute hepatic encephalopathy. Ammonia on admission was 60, and his rising. Today ammonia levels are 65. Patient was initially started on lactulose. We'll add rifaximin, and continue to titrate lactulose to 4 loose stools daily. Mental status has cleared today. -Rifaximin 550 mg twice a day -Titrate lactulose to 4 loose stools daily -Recheck ammonia (2) Right flank pain Status: Acute Problem Text: Flank pain admission was attributed to musculoskeletal pains. However, patient continues to have significant left-sided flank pain. Will rule out stone. Pyelonephritis less likely as patient's white count is normal and she has no fever. -UA -Renal ultrasound (3) Prolonged Q-T interval on ECG Status: Acute Problem Text: Patient is found to have a prolonged QT interval on admission. Her SSRI was held. No concern for arrhythmia today. Recommend avoiding QT prolonging agents, such as Zofran, SSRIs, or macrolides. (4) Stage III chronic kidney disease Status: Chronic Response to Treatment: Stable Problem Text: Avoid nephrotoxic agents. Creatinine stable. (5) Insulin dependent diabetes mellitus Status: Chronic Response to Treatment: Stable Problem Text: Fasting glucose near target levels. -Continue Toujeo 17 units at bedtime -sliding scale insulin (6) RENEE on CPAP Status: Chronic Problem Text: Continue on CPAP (7) HLD (hyperlipidemia) Status: Acute Problem Text: Continue home statin (8) COPD (chronic obstructive pulmonary disease) Status: Chronic Problem Text: Not currently on controlling agents. No reported shortness of breath (9) Hiatal hernia with GERD Status: Acute Problem Text: Currently on PPI. No epigastric pain. (10) Mild diastolic dysfunction Status: Acute Problem Text: History of very mild grade 1 diastolic dysfunction. -Continue home spironolactone (11) End stage liver disease Status: Chronic Problem Text: Chronic, idiopathic end-stage liver disease. Patient follows with GI outpatient. Currently admitted for acute metabolic encephalopathy. No current concerns for SBP, as white count is normal, patient is afebrile. Plan/VTE VTE Prophylaxis Ordered?: Yes Disposition Pending resolution of elevated ammonia, workup of right flank pain VS, I&O, 24H, Fishbone Vital Signs/I&O Vital Signs Date Time Temp Pulse Resp B/P Pulse Ox O2 Delivery O2 Flow Rate FiO2 12/29/16 14:00 99.1 77 20 130/62 97 Room Air I&O- Last 24 Hours up to 6 AM 12/29/16 05:59 Intake Total 480 ml Output Total 0 ml Balance 480 ml Laboratory Data 24H LABS Laboratory Tests 2 12/28/16 18:51: Ammonia 60H, Anion Gap 8, Blood Urea Nitrogen 16, Creatinine 1.24H, Sodium Level 139, Potassium Level 4.2, Chloride Level 105, Carbon Dioxide Level 26, Calcium Level 7.8L, Glomerular Filtration Rate 46.7, Magnesium Level 2.1 12/28/16 20:53: Bedside Glucose (Misc Panel) 139H 12/28/16 23:39: Ammonia 65H 12/29/16 04:48: Anion Gap 7L, Blood Urea Nitrogen 12, Creatinine 1.25H, Sodium Level 140, Potassium Level 4.0, Chloride Level 107, Carbon Dioxide Level 26, Calcium Level 8.1L, Glomerular Filtration Rate 46.2, Aspartate Amino Transf (AST/SGOT) 27, Alanine Aminotransferase (ALT/SGPT) 21, Alkaline Phosphatase 114, Total Bilirubin 0.8, Total Protein 8.0, Albumin 2.6L, Albumin/Globulin Ratio 0.48L, White Blood Count 6.4, Red Blood Count 3.98L, Hemoglobin 11.7L, Hematocrit 36.6 , Mean Corpuscular Volume 92.0, Mean Corpuscular Hemoglobin 29.5, Mean Corpuscular Hemoglobin Concent 32.1, Red Cell Distribution Width 13.6, Platelet Count 200, Neutrophils (%) (Auto) 74.6H, Lymphocytes (%) (Auto) 18.4L, Monocytes (%) (Auto) 4.0, Eosinophils (%) (Auto) 0.8, Basophils (%) (Auto) 0.3, Neutrophils # (Auto) 4.8, Lymphocytes # (Auto) 1.2L, Monocytes # (Auto) 0.3, Eosinophils # (Auto) 0.0, Basophils # (Auto) 0.0, Large Unclassified Cells # 0.1 , Large Unclassified Cells % 2.0 12/29/16 11:35: Bedside Glucose (Misc Panel) 154H CBC/BMP Laboratory Tests 12/28/16 18:51 Calcium Level 7.8 L 12/29/16 04:48 Calcium Level 8.1 L, Aspartate Amino Transf (AST/SGOT) 27, Alanine Aminotransferase (ALT/SGPT) 21, Alkaline Phosphatase 114, Total Bilirubin 0.8, Total Protein 8.0, Albumin 2.6 L, Red Blood Count 3.98 L, Mean Corpuscular Volume 92.0, Mean Corpuscular Hemoglobin 29.5, Mean Corpuscular Hemoglobin Concent 32.1, Red Cell Distribution Width 13.6, Neutrophils (%) (Auto) 74.6 H, Lymphocytes (%) (Auto) 18.4 L, Monocytes (%) (Auto) 4.0, Eosinophils (%) (Auto) 0.8, Basophils (%) (Auto) 0.3, Neutrophils # (Auto) 4.8, Lymphocytes # (Auto) 1.2 L, Monocytes # (Auto) 0.3, Eosinophils # (Auto) 0.0, Basophils # (Auto) 0.0 GEOFF JONES MD Dec 29, 2016 15:45
[2016-12-29] MEDS ORDERED: NITROGLYCERIN 0.4 MG SUBL TABLET SL STA (19:50)
[2016-12-29] MEDS ORDERED: GI COCKTAIL 50ML BTL(HYOSCYAMINE/MAALOX/LIDOCAINE VISCOUS)(1:3:1) PO ONE (20:30)
[2016-12-29] MEDS ORDERED: LORazepam 0.5 MG TAB PO PRN (20:30)
[2016-12-29] MEDS: LEVEMIR (INSULIN DETEMIR) 1 UNITS/0.01ML SC SCH (20:49)
[2016-12-29] MEDS: rifAXIMin 550 MG TAB (XIFAXAN) PO SCH (20:49)
[2016-12-29] MEDS: HEPARIN SOD (PORCINE) 5000 UNITS/ML VIAL SQ SCH (21:00)
[2016-12-29] MEDS: BACTRIM 160MG/800MG DS TAB PO SCH (21:26)
[2016-12-29 22:00] VITALS: BP 166/72
[2016-12-30] MEDS: PERCOCET 5MG/325MG TAB PO PRN ×5 (01:15→21:42)
[2016-12-30] MEDS: LEVOTHYROXINE 0.05 MG TAB (50 MCG) PO SCH (05:31)
[2016-12-30] MEDS: HEPARIN SOD (PORCINE) 5000 UNITS/ML VIAL SQ SCH ×3 (05:31→21:41)
[2016-12-30 06:00] VITALS: BP 142/67
[2016-12-30 06:54] LABS: BASO % 0.4 % (0.0-1.0); EOS # 0.1 K/mm3 (0.0-0.50); EOS % 1.6 % (0.0-3.0); LARGE UNSTAINED CELL # 0.2 K/mm3 (0.0-0.4); LARGE UNSTAINED CELL % 3.7 % (0.0-4.0); LYMPH # 1.8 K/mm3 (1.5-4.5); LYMPH % 33.5 % (24.0-44.0); MEAN CORPUSCULAR HEMOGLOBIN 29.4 pg (27.0-33.0); MEAN CORPUSCULAR HGB CONC 31.6 g/dl (32.0-36.5); MEAN CORPUSCULAR VOLUME 92.9 fl (80.0-96.0); MONO # 0.3 K/mm3 (0.0-0.8); MONO % 6.4 % (0.0-5.0); NEUTROPHILS # 2.6 K/mm3 (1.8-7.7); NEUTROPHILS % 54.4 % (36.0-66.0); PLATELET COUNT, AUTOMATED 192 k/mm3 (150-450); RED CELL DISTRIBUTION WIDTH 13.8 % (11.5-14.5); WHITE BLOOD COUNT 4.8 K/mm3 (4.0-10.0)
[2016-12-30 07:08] LABS: CALCIUM LEVEL 7.6 MG/DL (8.8-10.2); CREATININE FOR GFR 1.19 MG/DL (0.55-1.02); GLOMERULAR FILTRATION RATE 48.9 (>45); POTASSIUM SERUM 4.1 MEQ/L (3.5-5.1)
[2016-12-30] MEDS: HumaLOG INSULIN (NovoLOG) PER UNIT SC SCH ×4 (07:30→20:14)
--- NOTE | 2016-12-30 07:45 | REP ---
RENAL ULTRASOUND COMPLETE: 12/29/2016. Clinical history: Increasing right flank pain. Rule out renal stone. Findings: Sonographic evaluation of the kidneys shows the right kidney to be 11.7 x 5.5 x 4.9 cm. It has cortical thickness and echogenicity which are normal. There is no hydronephrosis or stone visible. No cyst or solid mass. Left kidney is more challenging due to body habitus, some interposed bowel and poor patient tolerance. It appears to measure about 10.5 x 4.7 x 4.1 cm with questionable increased echogenicity in some areas, likely an artifact with the thickness of the cortex adequate and some sinus lipomatosis noted. No hydronephrosis or hydroureter evident. There does appear to be a duplicated collecting system. No definite stone or shadowing. Only the proximal course of the ureter on each side is visible at the renal pelvis and unremarkable. The bladder was not filled when the patient arrived and therefore, was seen in only a limited fashion, noncontributory. Impression: 1. No hydronephrosis, hydroureter or definite stone. Renal size adequate. No mass, cyst or other acute finding. Bladder not filled and could not be evaluated. Signed by Mike Richter MD 12/30/2016 08:34 A
[2016-12-30] MEDS: BACTRIM 160MG/800MG DS TAB PO SCH ×2 (09:35→20:13)
[2016-12-30] MEDS: POTASSIUM CHLORIDE 10 MEQ SR TABLET PO SCH ×2 (09:35→20:14)
[2016-12-30] MEDS: MAGNESIUM OXIDE 400 MG TAB (MAG-OX) PO SCH ×2 (09:35→20:13)
[2016-12-30] MEDS: PANTOPRAZOLE 40MG TAB (PROTONIX) PO SCH (09:35)
[2016-12-30] MEDS: rifAXIMin 550 MG TAB (XIFAXAN) PO SCH ×2 (09:35→20:13)
[2016-12-30] MEDS: METOPROLOL SUCC (TopROL XL) 50MG **XL** TAB PO SCH (09:36)
[2016-12-30] MEDS: SPIRONOLACTONE 50 MG TAB PO SCH (09:36)
[2016-12-30] MEDS: LIDOCAINE 5% OINT 30 GM TOP SCH ×2 (09:37→20:15)
--- NOTE | 2016-12-30 12:40 | IPNPDOC ---
Subjective Date Seen The patient was seen on 12/30/16. Subjective Chief Complaint/HPI The patient is a 61-year-old female admitted with a reason for visit of Acute Hepatic Encephalopathy. Events since last encounter Pt cont to c/o pain in her feet, leg, hip, and side. Still very anxious. Prosac was stopped on admission due concern with prolonged QT. Pt attributes much of her anxiety to the pain. Overnight, pt was c/o chest pain, but EKG was negative for any acute changes and troponin was negative x 3. Pt denies chest pain or difficulty breathing this AM. She wants to know when she will be ready to go home. Constitutional: Denies: Chills, Fever, Malaise Pulmonary: Denies: Cough, Dyspnea Cardiovascular: Reports: Chest Pain (overnight reported CP, but none today), Denies: Orthopnea, Palpitations Gastrointestinal: Reports: Nausea, Denies: Abdominal Pain, Constipation, Diarrhea, Vomiting Genitourinary: Reports: Other Symptoms (R flank pain), Denies: Dysuria, Frequency Other systems 10 pt ROS otherwise negative Objective Physical Examination General Exam: Positive: Alert, Cooperative, Other (moaning in bed) Eye Exam: Positive: Conjunctiva & lids normal, PERRLA, Negative: Sclera icteric ENT Exam: Positive: Atraumatic, Mucous membr. moist/pink Neck Exam: Positive: Supple, Negative: JVD, thyromegaly Chest Exam: Positive: Clear to auscultation, Diminished, Negative: Rales, Wheezing Heart Exam: Positive: Normal S1, Normal S2, Rate Normal, Regular Rhythm, Negative: Murmurs, Rubs Abdomen Exam: Positive: Normal bowel sounds, Soft, Tenderness (tenderness of right upper and lower quadrant), Negative: Hepatospenomegaly Extremity Exam: Positive: Normal pulses, Other (no redness or swelling of the feet; pain to manipulation of the tops of the feet), Negative: Clubbing, Cyanosis, Edema Skin Exam: Positive: Nl turgor and temperature, Negative: Breakdown, Rash Neuro Exam: Positive: Normal Speech Psych Exam: Positive: Mental status NL, Oriented x 3 Assessment /Plan Problems (1) Acute hepatic encephalopathy Status: Resolved Response to Treatment: Improving Problem Text: Patient was admitted 12/28/2016 for acute hepatic encephalopathy. Ammonia on admission was 60, and his rising. Today ammonia levels are 53. Patient was initially started on lactulose, and rifaximin was added due to continued high ammonia levels. Continue to titrate lactulose to 4 loose stools daily. Mental status cont to be clear. -Rifaximin 550 mg twice a day -Titrate lactulose to 4 loose stools daily -Recheck ammonia daily (2) Right flank pain Status: Acute Problem Text: Flank pain admission was attributed to musculoskeletal pains. However, patient continues to have significant left-sided flank pain. Will rule out stone. Pyelonephritis less likely as patient's white count is normal and she has no fever. UA was positive for WBCs, nitrites, and bacteria. U/S negative for stones or acute findings. Bactrim was started empirically. - cont bactrim - followup urine culture (3) Prolonged Q-T interval on ECG Status: Acute Problem Text: Patient is found to have a prolonged QT interval on admission. Her SSRI was held. No concern for arrhythmia today. Recommend avoiding QT prolonging agents, such as Zofran, SSRIs, or macrolides. - pt changed to effexor to avoid QT prolongation; alternatively can be changed to cymbalta if not tolerating effexor (4) Stage III chronic kidney disease Status: Chronic Response to Treatment: Stable Problem Text: Avoid nephrotoxic agents. Creatinine stable. (5) Insulin dependent diabetes mellitus Status: Chronic Response to Treatment: Stable Problem Text: Fasting glucose near target levels. -Continue Toujeo 17 units at bedtime -sliding scale insulin (6) RENEE on CPAP Status: Chronic Problem Text: Continue on CPAP (7) HLD (hyperlipidemia) Status: Acute Problem Text: Continue home statin (8) COPD (chronic obstructive pulmonary disease) Status: Chronic Problem Text: Not currently on controlling agents. No reported shortness of breath (9) Hiatal hernia with GERD Status: Acute Problem Text: Currently on PPI. No epigastric pain. (10) Mild diastolic dysfunction Status: Acute Problem Text: History of very mild grade 1 diastolic dysfunction. -Continue home spironolactone (11) End stage liver disease Status: Chronic Problem Text: Chronic, idiopathic end-stage liver disease. Patient follows with GI outpatient. Currently admitted for acute metabolic encephalopathy. No current concerns for SBP, as white count is normal, patient is afebrile. (12) Neuropathy Status: Acute Problem Text: May be related to diabetes. Pt has no hx of this. No swelling or redness on exam to suggest DVT. Skin is warm making vasc occlusion unlikely. - start gabapentin 200 mg TID Plan/VTE VTE Prophylaxis Ordered?: Yes Disposition Initiated discharge planning; may be ready for discharge 12/31/16 VS, I&O, 24H, Fishbone Vital Signs/I&O Vital Signs Date Time Temp Pulse Resp B/P Pulse Ox O2 Delivery O2 Flow Rate FiO2 12/30/16 10:30 18 12/30/16 09:36 75 164/74 12/30/16 09:35 Room Air 12/30/16 06:00 98.7 95 12/29/16 22:00 2.0 I&O- Last 24 Hours up to 6 AM 12/30/16 06:00 Intake Total 480 ml Output Total 0 ml Balance 480 ml Laboratory Data 24H LABS Laboratory Tests 2 12/29/16 16:40: Bedside Glucose (Misc Panel) 129H 12/29/16 17:03: Urine Amorphous Sediment , Urine Appearance CLOUDYH, Urine Color YELLOW, Urine pH 6.0, Urine Specific [place] 1.014, Urine Protein NEGATIVE, Urine Glucose (UA ) NEGATIVE, Urine Ketones NEGATIVE, Urine Urobilinogen 0.2, Urine Bilirubin NEGATIVE, Urine Leukocyte Esterase 3+H, Urine Bacteria (Auto) 3+H, Urine Blood 2 +H, Urine Calcium Carbonate Cryst(Auto) , Urine Calcium Oxalate Cryst (Auto) , Urine Calcium Phosphate Tari (Auto) , Urine Cellular Casts , Urine Cystine Crystals , Urine Granular Casts (Auto) , Urine Hyaline Casts (Auto) 0, Urine Leucine Crystals , Urine Mucus (Auto) SMALL, Urine Nitrite POSITIVE, Urine Oval Fat Bodies (Auto) , Urine RBC (Auto) 4H, Urine Renal Epithelial Cells , Urine Sperm (Auto) , Urine Squamous Epithelial Cells 2, Urine Transitional Epithelial Cells , Urine Trichomonas (Auto) , Urine Triple Phosphate Cryst (Auto) , Urine Tyrosine Crystals , Urine Uric Acid Crystals (Auto) , Urine WBC (Auto) 119H, Urine Waxy Casts (Auto) , Urine Yeast-Like Cells (Auto) 12/29/16 20:06: Bedside Glucose (Misc Panel) 121H 12/29/16 20:53: Troponin I < 0.02 12/30/16 00:24: Troponin I < 0.02 12/30/16 04:03: Troponin I < 0.02 12/30/16 06:33: Ammonia 53H, Anion Gap 8, White Blood Count 4.8, Red Blood Count 3.68L, Hemoglobin 10.8L, Hematocrit 34.2L, Mean Corpuscular Volume 92.9, Mean Corpuscular Hemoglobin 29.4, Mean Corpuscular Hemoglobin Concent 31.6L, Red Cell Distribution Width 13.8, Platelet Count 192, Neutrophils (%) (Auto) 54.4, Lymphocytes (%) (Auto) 33.5, Monocytes (%) (Auto) 6.4H, Eosinophils (%) (Auto) 1.6, Basophils (%) (Auto) 0.4, Neutrophils # (Auto) 2.6, Lymphocytes # (Auto) 1.8, Monocytes # (Auto) 0.3, Eosinophils # (Auto) 0.1, Basophils # (Auto) 0.0, Blood Urea Nitrogen 13, Creatinine 1.19H, Sodium Level 143, Potassium Level 4.1 , Chloride Level 112H, Carbon Dioxide Level 23, Calcium Level 7.6L, Glomerular Filtration Rate 48.9, Large Unclassified Cells # 0.2, Large Unclassified Cells % 3.7 CBC/BMP Laboratory Tests 12/30/16 06:33 Calcium Level 7.6 L, Red Blood Count 3.68 L, Mean Corpuscular Volume 92.9, Mean Corpuscular Hemoglobin 29.4, Mean Corpuscular Hemoglobin Concent 31.6 L, Red Cell Distribution Width 13.8, Neutrophils (%) (Auto) 54.4, Lymphocytes (%) (Auto ) 33.5, Monocytes (%) (Auto) 6.4 H, Eosinophils (%) (Auto) 1.6, Basophils (%) ( Auto) 0.4, Neutrophils # (Auto) 2.6, Lymphocytes # (Auto) 1.8, Monocytes # (Auto ) 0.3, Eosinophils # (Auto) 0.1, Basophils # (Auto) 0.0 Microbiology Microbiology 12/29/16 Urine Culture, Received Pending GEOFF JONES MD Dec 30, 2016 12:40
[2016-12-30 14:00] VITALS: BP 140/78
[2016-12-30] MEDS: VENLAFAXINE **XR** 37.5 MG CAPSULE PO SCH (14:06)
[2016-12-30] MEDS: GABAPENTIN 100 MG CAP PO SCH ×2 (17:01→20:13)
[2016-12-30] MEDS: LEVEMIR (INSULIN DETEMIR) 1 UNITS/0.01ML SC SCH (20:14)
--- NOTE | 2016-12-30 20:18 | ECGEPIP ---
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
--- NOTE | 2016-12-30 20:32 | ECGEPIP ---
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
--- NOTE | 2016-12-30 20:32 | ECGEPIP ---
Stationary ECG Study [facility] Test Date: 2016-12-30 Pat Name: HODAN FARFAN Department: Room: [place] [address] Gender: F Certified Nutritionist: [place] : 1955 Requested By: GEOFF Jaramillo Order Number: [id number] Reading MD: Kristie Pedraza Measurements Intervals [place] Rate: 74 P: 44 [place]: 131 QRS: 16 QRSD: 84 T: 29 QT: 422 QTc: 470 Interpretive Statements SINUS RHYTHM NO CHANGE 12/29/16 Electronically Signed On 12-30-2016 20:31:53 EDT by Kristie Pedraza
[2016-12-30 22:00] VITALS: BP 158/76
[2016-12-31] MEDS: PERCOCET 5MG/325MG TAB PO PRN ×2 (02:16→08:42)
[2016-12-31] MEDS: LEVOTHYROXINE 0.05 MG TAB (50 MCG) PO SCH (05:36)
[2016-12-31] MEDS: HEPARIN SOD (PORCINE) 5000 UNITS/ML VIAL SQ SCH (05:37)
[2016-12-31 06:00] VITALS: BP 158/75
[2016-12-31] MEDS: HumaLOG INSULIN (NovoLOG) PER UNIT SC SCH (07:30)
--- NOTE | 2016-12-31 07:35 | REP ---
AP PELVIS AND BILATERAL HIPS: 12/30/2016 COMPARISON: 01/01/2016 FINDINGS: AP PELVIS: Pelvic ring shows the SI joints symmetric and preserved. Symphysis pubis intact. Pelvic ring intact. Iliac wings without fracture or focal lesion. There is some minor acetabular roof spurring, left greater than right. Hip joint space preserved without significant narrowing pubic rami and symphysis pubis unremarkable. The left hip without fracture or focal lesion. The right hip has a blade paddle ORIF with intramedullary chandra fixation in the femoral shaft to its midportion with a single screw transfixing it. Essentially anatomic alignment with healing of the fracture site. RIGHT HIP: AP and frog-leg views show hardware without evidence of loosening or infection. The blade paddle device does not extend beyond the articular surface of the femoral head. There are no other findings. LEFT HIP: Minor degenerative changes of the hip without fracture, subluxation or focal bone lesion. IMPRESSION: Status post ORIF of the right hip with essentially anatomic alignment. Minor degenerative changes of both hips. No acute fracture. Signed by Mike Richter MD 12/31/2016 07:46 A
[2016-12-31] MEDS: SPIRONOLACTONE 50 MG TAB PO SCH (08:38)
[2016-12-31] MEDS: GABAPENTIN 100 MG CAP PO SCH (08:40)
[2016-12-31] MEDS: POTASSIUM CHLORIDE 10 MEQ SR TABLET PO SCH (08:40)
[2016-12-31 08:41] VITALS: BP 158/75
[2016-12-31] MEDS: rifAXIMin 550 MG TAB (XIFAXAN) PO SCH (08:41)
[2016-12-31] MEDS: METOPROLOL SUCC (TopROL XL) 50MG **XL** TAB PO SCH (08:41)
[2016-12-31 08:42] VITALS: BP 158/75
[2016-12-31] MEDS: MAGNESIUM OXIDE 400 MG TAB (MAG-OX) PO SCH (08:42)
[2016-12-31] MEDS: BACTRIM 160MG/800MG DS TAB PO SCH (08:42)
[2016-12-31] MEDS: PANTOPRAZOLE 40MG TAB (PROTONIX) PO SCH (08:42)
[2016-12-31] MEDS: LIDOCAINE 5% OINT 30 GM TOP SCH (08:43)
[2016-12-31] MEDS ORDERED: GABA-279 PO (10:11)
[2016-12-31] MEDS ORDERED: SMZ-800T PO (10:11)
[2016-12-31] MEDS ORDERED: VENL37CA PO (10:11)
[2016-12-31 10:15] LABS: BASO % 0.4 % (0.0-1.0); EOS # 0.1 K/mm3 (0.0-0.50); EOS % 2.4 % (0.0-3.0); LARGE UNSTAINED CELL # 0.1 K/mm3 (0.0-0.4); LARGE UNSTAINED CELL % 3.1 % (0.0-4.0); LYMPH # 1.5 K/mm3 (1.5-4.5); LYMPH % 31.5 % (24.0-44.0); MEAN CORPUSCULAR HEMOGLOBIN 29.4 pg (27.0-33.0); MEAN CORPUSCULAR HGB CONC 31.6 g/dl (32.0-36.5); MEAN CORPUSCULAR VOLUME 93.1 fl (80.0-96.0); MONO # 0.2 K/mm3 (0.0-0.8); MONO % 5.4 % (0.0-5.0); NEUTROPHILS # 2.5 K/mm3 (1.8-7.7); NEUTROPHILS % 57.2 % (36.0-66.0); PLATELET COUNT, AUTOMATED 165 k/mm3 (150-450); RED CELL DISTRIBUTION WIDTH 13.5 % (11.5-14.5); WHITE BLOOD COUNT 4.4 K/mm3 (4.0-10.0)
[2016-12-31] MEDS: VENLAFAXINE **XR** 37.5 MG CAPSULE PO SCH (10:34)
[2016-12-31 10:45] LABS: ALBUMIN 2.4 GM/DL (3.2-5.2); ALBUMIN/GLOBULIN RATIO 0.46 (1.00-1.93); BILIRUBIN,TOTAL 0.4 MG/DL (0.2-1.0); CALCIUM LEVEL 7.9 MG/DL (8.8-10.2); CREATININE FOR GFR 1.2 MG/DL (0.55-1.02); GLOMERULAR FILTRATION RATE 48.5 (>45); POTASSIUM SERUM 4.2 MEQ/L (3.5-5.1); TOTAL PROTEIN 7.6 GM/DL (6.4-8.2)
--- NOTE | 2016-12-31 15:12 | DSES ---
DATE OF ADMISSION: 12/28/2016 DATE OF DISCHARGE: 12/31/2016 PRIMARY CARE PROVIDER: Paul Torres MD HISTORY OF PRESENT ILLNESS: 61-year-old female who presented to [facility] emergency room for mental status changes and lethargy. Ammonia level was noted to be 60 in the emergency room and the patient was also noted to have an abnormal UA. HOSPITAL COURSE: The patient's urine culture returned positive for Klebsiella pneumoniae. The patient was placed on trimethoprim sulfamethizole and has been tolerating that well. Continues to complain of right flank pain, has passed physical therapy. As far as her physical function, ammonia levels have come down, labs have remained stable throughout hospitalization. The patient did have prolonged QT intervals on admission. Her Prozac was stopped. She was placed on Effexor 37.5 mg by mouth daily. The patient was also placed on gabapentin 200 mg by mouth three times a day secondary to her pain. The patient states her pain is worse with movement, including rolling over on her side as well as sitting up. It appears to be musculoskeletal in nature. Imaging completed includes a chest x-ray, thoracic spine, lumbar spine, renal ultrasound and hip/pelvis x-ray, all of which were negative. Intake and output have remained stable. Vital signs have remained stable. Blood pressures have been in the 150's over 70's. Apical heart rate 60-75 max. On physical exam today, the patient is in no acute distress, is resting comfortably. She is alert and oriented times three. Again, continues to complain of right lumbar/flank pain. Denies chest pain, headache, blurred vision, dizziness, or shortness of breath. On physical exam, vital signs are stable. She is afebrile. GENERAL: Patient is sitting, resting comfortably. She is alert and oriented times three. HEENT: Neck is supple without lymphadenopathy or jugular venous distention (JVD). CARDIOVASCULAR: Heart rate and rhythm are regular. PULMONARY: Lungs clear to auscultation bilaterally. ABDOMEN: Soft, nontender. MUSCULOSKELETAL: Patient does have a palpable knotted tender muscle to the midlumbar spine and is significantly tender, pinpoint to that area on palpation. Bilateral lower extremities +2 edema. NEURO: She is alert and oriented times three. No resting tremor is appreciated. ASSESSMENT: 1. Mental status changes with hyperammonemia which has resolved. 2. Urinary tract infection. 3. Right flank pain. 4. Lumbar spine strain. SECONDARY DIAGNOSES: Include: 1. Morbid obesity. 2. End stage liver disease. 3. Pancytopenia secondary to end stage liver disease. 4. Chronic lower extremity lymphedema. 5. Congestive heart failure (CHF). 6. Diastolic dysfunction. 7. Hypertension. 8. Obstructive sleep apnea (RENEE). 9. Hyperlipidemia. 10. Chronic obstructive pulmonary disease (COPD). 11. Type 2 diabetes. 12. Gastroesophageal reflux disease (GERD). 13. Schizoaffective disorder. 14. Vitamin D deficiency. 15. Osteopenia. 16. Allergic rhinitis. 17. Portal hypertension. 18. Chronic kidney disease stage III. 19. Hypothyroidism. PLAN: The patient will be discharged home. She will go home with home health services. She has physical therapy and nursing already established in the home through [facility]. She does live with her daughter who assists in her care. DIET: Carbohydrate consistent. ACTIVITY: As tolerated. She will followup with her primary care physician Dr. Paul Torres, or his PA Rosario Andrews within the next 5-7 days. MEDICATIONS: - furosemide 40 mg by mouth daily - gabapentin 100 mg two tablets three times a day - hydroxyzine 25 mg by mouth three times a day as needed - lactulose 10 gm/15 mL 30 mL by mouth twice a day - levothyroxine 15 mcg by mouth daily - MagOx 400 mg by mouth twice a day - metoprolol succinate 50 mg by mouth twice a day - oxycodone 10/325 one tablet by mouth every 4 hours as needed for pain - pantoprazole 40 mg by mouth daily - potassium chloride 20 mEq by mouth twice a day - spironolactone 50 mg by mouth daily - trimethoprim sulfamethizole one tablet by mouth twice a day. She was sent home with 7 more days to equal a 10 day course. - tizanidine 4 mg by mouth three times a day as needed for pain. This will help with her muscle tightness and strain in the lumbar and flank area - Toujeo SoloStar 30 units per mL, 17 units subcu at bedtime - venlafaxine 37.5 mg by mouth daily, 14 capsules were given and further dosing adjustment and titration can be determined by her primary care physician at followup. The patient is discharged in stable and satisfactory condition. No further questions at the time of discharge. Attending note: I saw and evaluated the patient on the day of discharge, and I agree with the discharge plan of care as discussed and documented above by Luisa Hopkins. Ben Candelario MD [facility] HOSPITALSofya
== END 2016-12-31 12:30 | disposition home or self-care (01) ==
LOC: M ED 13:19 → M ED INP 15:33 → M MSPAV 16:44
PROVIDERS: ADMIT General Practice; ATTEND Family Medicine
DX: R41.82 Altered mental status, unspecified (principal); E72.20 Disorder of urea cycle metabolism, unspecified; N39.0 Urinary tract infection, site not specified; B96.1 Klebsiella pneumoniae [K. pneumoniae] as the cause of diseases classified elsewhere; R10.9 Unspecified abdominal pain; S39.012A Strain of muscle, fascia and tendon of lower back, initial encounter; X58.XXXA Exposure to other specified factors, initial encounter; Y92.89 Other specified places as the place of occurrence of the external cause; Y93.89 Activity, other specified; Y99.8 Other external cause status; E66.01 Morbid (severe) obesity due to excess calories; K72.90 Hepatic failure, unspecified without coma; D61.818 Other pancytopenia; I89.0 Lymphedema, not elsewhere classified; I50.30 Unspecified diastolic (congestive) heart failure; I12.9 Hypertensive chronic kidney disease with stage 1 through stage 4 chronic kidney disease, or unspecified chronic kidney disease; G47.33 Obstructive sleep apnea (adult) (pediatric); E78.5 Hyperlipidemia, unspecified; J44.9 Chronic obstructive pulmonary disease, unspecified; E11.22 Type 2 diabetes mellitus with diabetic chronic kidney disease; K21.9 Gastro-esophageal reflux disease without esophagitis; F25.9 Schizoaffective disorder, unspecified; E55.9 Vitamin D deficiency, unspecified; M85.88 Other specified disorders of bone density and structure, other site; K76.6 Portal hypertension; N18.3 Chronic kidney disease, stage 3 (moderate); E03.9 Hypothyroidism, unspecified; R94.31 Abnormal electrocardiogram [ECG] [EKG]; K44.9 Diaphragmatic hernia without obstruction or gangrene; G62.9 Polyneuropathy, unspecified; M75.41 Impingement syndrome of right shoulder; M75.42 Impingement syndrome of left shoulder; Z79.899 Other long term (current) drug therapy; Z79.4 Long term (current) use of insulin; Z88.0 Allergy status to penicillin; Z88.8 Allergy status to other drugs, medicaments and biological substances

== ENCOUNTER 2017-01-02 17:16 | Emergency (ER) | payer OTHER ==
[~2017-01-02] VITALS: Ht 160 cm; Wt 112.5 kg
[~2017-01-02 17:16] MED LIST changes: +HYDR25T PO; +OXYC1TAB16 PO; +SMZ-800T PO; +VENL37CA PO
[2017-01-02 19:08] LABS: BASO % 0.5 % (0.0-1.0); EOS # 0.1 K/mm3 (0.0-0.50); EOS % 2.5 % (0.0-3.0); LARGE UNSTAINED CELL # 0.1 K/mm3 (0.0-0.4); LARGE UNSTAINED CELL % 2.6 % (0.0-4.0); LYMPH # 1.3 K/mm3 (1.5-4.5); LYMPH % 24.9 % (24.0-44.0); MEAN CORPUSCULAR HEMOGLOBIN 28.7 pg (27.0-33.0); MEAN CORPUSCULAR HGB CONC 30.8 g/dl (32.0-36.5); MEAN CORPUSCULAR VOLUME 93.3 fl (80.0-96.0); MONO # 0.3 K/mm3 (0.0-0.8); MONO % 5.6 % (0.0-5.0); NEUTROPHILS # 3.5 K/mm3 (1.8-7.7); NEUTROPHILS % 63.9 % (36.0-66.0); PLATELET COUNT, AUTOMATED 157 k/mm3 (150-450); RED CELL DISTRIBUTION WIDTH 13.7 % (11.5-14.5); WHITE BLOOD COUNT 5.4 K/mm3 (4.0-10.0)
[2017-01-02 19:13] LABS: INR 1.11
[2017-01-02 19:37] LABS: ALBUMIN 2.9 GM/DL (3.2-5.2); ALBUMIN/GLOBULIN RATIO 0.58 (1.00-1.93); BILIRUBIN,DIRECT 0.2 MG/DL (0.0-0.2); BILIRUBIN,TOTAL 0.3 MG/DL (0.2-1.0); CALCIUM LEVEL 8.4 MG/DL (8.8-10.2); CREATININE FOR GFR 1.69 MG/DL (0.55-1.02); GLOMERULAR FILTRATION RATE 32.6 (>45); POTASSIUM SERUM 5.1 MEQ/L (3.5-5.1); TOTAL PROTEIN 7.9 GM/DL (6.4-8.2)
[2017-01-02 20:18] VITALS: BP 145/63
== END 2017-01-02 20:19 | disposition home or self-care (01) ==
LOC: M ED 18:25
DX: K72.10 Chronic hepatic failure without coma (principal); E11.22 Type 2 diabetes mellitus with diabetic chronic kidney disease; J44.9 Chronic obstructive pulmonary disease, unspecified; N18.9 Chronic kidney disease, unspecified; G47.33 Obstructive sleep apnea (adult) (pediatric); F11.20 Opioid dependence, uncomplicated; Z87.891 Personal history of nicotine dependence; Z79.899 Other long term (current) drug therapy; Z79.2 Long term (current) use of antibiotics; Z79.4 Long term (current) use of insulin

== ENCOUNTER → 2017-01-07 | Outpatient (REF) | payer OTHER ==
[2017-01-07 15:45] LABS: VITAMIN B12 LEVEL 694 PG/ML (247-911)
[2017-01-07 15:48] LABS: ANION GAP 7 MEQ/L (8-16); BLOOD UREA NITROGEN 17 MG/DL (7-18); CALCIUM LEVEL 8.4 MG/DL (8.8-10.2); CARBON DIOXIDE LEVEL 25 MEQ/L (21-32); CHLORIDE LEVEL 105 MEQ/L (98-107); CREATININE FOR GFR 1.55 MG/DL (0.55-1.02); FREE T4 1.02 NG/DL (0.76-1.46); GLOMERULAR FILTRATION RATE 36.1 (>45); GLUCOSE, FASTING 138 MG/DL (80-110); SODIUM LEVEL 137 MEQ/L (136-145)
== END ==
LOC: M SFHCPLAZ 11:09
PROVIDERS: ATTEND Physician Assistant Medical
DX: R41.0 Disorientation, unspecified (principal); E03.9 Hypothyroidism, unspecified

== ENCOUNTER → 2017-01-16 | Outpatient (REF) | payer OTHER ==
[2017-01-16 11:18] LABS: BASO % 0.8 % (0.0-1.0); EOS # 0.1 K/mm3 (0.0-0.50); LARGE UNSTAINED CELL # 0.1 K/mm3 (0.0-0.4); LARGE UNSTAINED CELL % 3.4 % (0.0-4.0); LYMPH # 1.6 K/mm3 (1.5-4.5); LYMPH % 33.6 % (24.0-44.0); MEAN CORPUSCULAR HEMOGLOBIN 29.5 pg (27.0-33.0); MEAN CORPUSCULAR HGB CONC 31.8 g/dl (32.0-36.5); MEAN CORPUSCULAR VOLUME 92.5 fl (80.0-96.0); MONO # 0.2 K/mm3 (0.0-0.8); MONO % 5.2 % (0.0-5.0); NEUTROPHILS # 2.3 K/mm3 (1.8-7.7); NEUTROPHILS % 54.1 % (36.0-66.0); PLATELET COUNT, AUTOMATED 208 k/mm3 (150-450); RED CELL DISTRIBUTION WIDTH 13.3 % (11.5-14.5); WHITE BLOOD COUNT 4.3 K/mm3 (4.0-10.0)
[2017-01-16 11:46] LABS: ALBUMIN 2.7 GM/DL (3.2-5.2); ALBUMIN/GLOBULIN RATIO 0.54 (1.00-1.93); BILIRUBIN,TOTAL 0.3 MG/DL (0.2-1.0); CALCIUM LEVEL 8.6 MG/DL (8.8-10.2); CREATININE FOR GFR 1.37 MG/DL (0.55-1.02); GLOMERULAR FILTRATION RATE 41.6 (>45); POTASSIUM SERUM 4.7 MEQ/L (3.5-5.1); TOTAL PROTEIN 7.7 GM/DL (6.4-8.2)
== END ==
LOC: M SFHCPLAZ 09:32
PROVIDERS: ATTEND Family Medicine
DX: D50.8 Other iron deficiency anemias (principal); N18.3 Chronic kidney disease, stage 3 (moderate)

== ENCOUNTER 2017-01-26 21:09 | Inpatient (IN) | payer OTHER ==
[~2017-01-26] VITALS: Ht 165.1 cm; Wt 117.0 kg
[2017-01-26] MEDS ORDERED: ONDANSETRON 4MG/2ML VIAL (J2405) As Ordered ONE (21:21)
[2017-01-26] MEDS ORDERED: ONDANSETRON 4MG/2ML VIAL (J2405) IV ONE (21:30)
[2017-01-26] MEDS ORDERED: ACETAMINOPHEN 650 MG SUPP PR ONE (22:15)
[2017-01-26] MEDS ORDERED: CEFEPIME HCL 2 GM in D5W MINI-BAG PLUS 50 ML IV ONE (22:15)
[2017-01-26 22:20] LABS: BASO % 0.3 % (0.0-1.0); EOS # 0.1 K/mm3 (0.0-0.50); EOS % 0.7 % (0.0-3.0); LARGE UNSTAINED CELL # 0.2 K/mm3 (0.0-0.4); LARGE UNSTAINED CELL % 1.5 % (0.0-4.0); LYMPH # 1.3 K/mm3 (1.5-4.5); LYMPH % 8.7 % (24.0-44.0); MEAN CORPUSCULAR HEMOGLOBIN 29.2 pg (27.0-33.0); MEAN CORPUSCULAR HGB CONC 31.6 g/dl (32.0-36.5); MEAN CORPUSCULAR VOLUME 92.6 fl (80.0-96.0); MONO # 0.6 K/mm3 (0.0-0.8); MONO % 4.4 % (0.0-5.0); NEUTROPHILS # 10.7 K/mm3 (1.8-7.7); NEUTROPHILS % 84.4 % (36.0-66.0); PLATELET COUNT, AUTOMATED 148 k/mm3 (150-450); RED CELL DISTRIBUTION WIDTH 13.6 % (11.5-14.5); WHITE BLOOD COUNT 12.6 K/mm3 (4.0-10.0)
[2017-01-26 22:30] LABS: ALBUMIN 3.2 GM/DL (3.2-5.2); ALBUMIN/GLOBULIN RATIO 0.55 (1.00-1.93); BILIRUBIN,DIRECT 0.3 MG/DL (0.0-0.2); BILIRUBIN,TOTAL 0.7 MG/DL (0.2-1.0); CALCIUM LEVEL 8.7 MG/DL (8.8-10.2); CREATININE FOR GFR 1.56 MG/DL (0.55-1.02); GLOMERULAR FILTRATION RATE 35.8 (>45); POTASSIUM SERUM 3.8 MEQ/L (3.5-5.1)
[2017-01-26] MEDS ORDERED: NS 1,000 ML IV ONE (23:00)
--- NOTE | 2017-01-27 00:40 | REPUSA ---
CT of the chest without contrast Clinical statement: Shortness of breath. Technique: Multiple axial CT images were obtained with 5 mm cuts through the chest without administra tion of contrast. Coronal and sagittal reconstructions were also obtained. No comparison is available. Findings: There is no thoracic lymphadenopathy. The visualized portions of the thyroid gland is unrem arkable. There are no pericardial or pleural effusions. The lungs are clear. Limited imaging of the u pper abdomen does not demonstrate any acute abnormalities. There are no suspicious osseous lesions. Impression: Unremarkable CT examination of the chest.
[2017-01-27] MEDS ORDERED: GABA-282 PO (00:51)
[2017-01-27] MEDS ORDERED: SERT50TA PO (00:54)
[2017-01-27] MEDS ORDERED: DEXTROSE 50% 50 ML SYRINGE IV PRN (01:00)
[2017-01-27] MEDS ORDERED: hydrOXYzine 25 MG TAB PO PRN (01:00)
[2017-01-27] MEDS ORDERED: GLUCOSE 4 GM CHEW TABLET PO PRN (01:00)
[2017-01-27] MEDS ORDERED: GLUCAGON FOR INJ 1 MG VIAL (J1610) SC PRN (01:00)
[2017-01-27] MEDS: PERCOCET 5MG/325MG TAB PO PRN ×3 (01:40→12:38)
[2017-01-27 01:50] VITALS: BP 123/58
[2017-01-27 02:22] LABS: ABG BASE EXCESS 0.2 (-2.0-2.0); ABG PARTIAL PRESSURE CO2 35.8 mmHg (35.0-45.0); ABG PARTIAL PRESSURE O2 146.9 mmHg (75.0-100.0); ABG STANDARD HCO3 24.7 MEQ/L (22.0-26.0); ABG TOTAL CO2 25.1 MEQ/L (23.0-31.0); ABG pH (ARTERIAL) 7.444 UNITS (7.350-7.450)
[2017-01-27] MEDS ORDERED: NS 1,000 ML IV ONE (03:00)
[2017-01-27] MEDS: LEVOTHYROXINE 0.05 MG TAB (50 MCG) PO SCH (05:46)
[2017-01-27 06:00] VITALS: BP 130/61
[2017-01-27] MEDS: IPRATROPIUM 0.5MG/ALBUTEROL 2.5MG INH SOL UD 3ML (DUONEB)(J7620) NEB SCH ×3 (07:09→23:45)
[2017-01-27] MEDS: GABAPENTIN 300 MG CAP PO SCH ×2 (09:13→20:05)
[2017-01-27] MEDS: CEFTAROLINE FOSAMIL 600 MG in D5W MINI-BAG PLUS 50 ML IV SCH ×2 (09:13→20:06)
[2017-01-27] MEDS: ENOXAPARIN 30 MG/0.3 ML SYR (J1650) SC SCH (09:14)
[2017-01-27] MEDS: SERTRALINE HCL 50 MG TAB PO SCH (09:14)
[2017-01-27] MEDS: METOPROLOL SUCC (TopROL XL) 50MG **XL** TAB PO SCH (09:14)
[2017-01-27] MEDS: PANTOPRAZOLE 40MG TAB (PROTONIX) PO SCH (09:14)
[2017-01-27] MEDS: MAGNESIUM OXIDE 400 MG TAB (MAG-OX) PO SCH ×2 (09:14→20:06)
[2017-01-27] MEDS: HumaLOG INSULIN (NovoLOG) PER UNIT SC SCH ×3 (09:15→17:14)
[2017-01-27] MEDS: NS 1,000 ML IV SCH ×2 (10:00→20:10)
--- NOTE | 2017-01-27 10:38 | IPNPDOC ---
Subjective Date Seen The patient was seen on 01/27/17. Subjective Chief Complaint/HPI The patient is a 61-year-old female admitted with a reason for visit of Fever And Chills. General: Reports: Normal Appetite, Denies: Night Sweats Constitutional: Denies: Chills Eyes: Denies: Vision change ENT: Denies: Head Aches, Dysphagia Skin: Denies: Rash Pulmonary: Denies: Cough, Pleuritic Chest Pain Cardiovascular: Reports: Orthopnea, Paroxysmal Noc. Dyspnea, Edema, Other Symptoms, Denies: Chest Pain, Palpitations Objective Physical Examination General Exam: Positive: Alert, Cooperative, No Acute Distress, Mild Distress, Moderate Distress, Severe Distress, Other Eye Exam: Positive: PERRLA Neck Exam: Positive: Supple, Negative: thyromegaly Chest Exam: Positive: Clear to auscultation, Diminished, Negative: Rhonchi, Wheezing Heart Exam: Positive: Rate Normal, Negative: Murmurs Abdomen Exam: Positive: Normal bowel sounds, Soft, Negative: Tenderness Extremity Exam: Positive: Swelling Skin Exam: Positive: Other skin issue (hyperpigmentation likely from stasis dermatitis.) Neuro Exam: Positive: Other (left upper extremity shows a tremor; some cogwheel rigidity. no weakness. asterixis not observed.) Assessment /Plan Problems (1) Hepatic encephalopathy Status: Chronic Problem Specific Plan: Monitor Clinically, Repeat Labs, Repeat Tests Problem Text: on lactulose and xifaxan for control at home. contributor to recent admissions elevated lactic acid, not associated with evidence of shock, suspect secondary to chronic hepatic dysfunction (2) Fever and chills Onset Date: 09/03/2014 Status: Acute Response to Treatment: Improving Problem Specific Plan: Monitor Clinically, Repeat Labs Problem Text: Says she feels better. Temp is improved. No definite source. Possible spontaneous peritonitis. now on antibiotics. no paracentesis. lactic acid remains abnormal but chronic liver disease likely contributes. pressure and urine production normal. continue antibiotics. Plan/VTE VTE Prophylaxis Ordered?: Yes Plan IVF: Initiate Diagnostics: Check Labs, MRI (MRI of brain ordered due to new neuro finding) Anticipated Discharge: Home With Services VS, I&O, 24H, Fishbone Vital Signs/I&O Vital Signs Date Time Temp Pulse Resp B/P (MAP) Pulse Ox O2 Delivery O2 Flow Rate FiO2 01/27/17 09:14 85 142/73 5/7/17 06:45 16 01/27/17 06:00 100.1 94 01/27/17 02:30 Nasal Cannula 3.0 I&O- Last 24 Hours up to 6 AM 01/27/17 06:00 Intake Total 360 ml Output Total 250 ml Balance 110 ml Laboratory Data 24H LABS Laboratory Tests 2 01/26/17 21:44: White Blood Count 12.6H, Red Blood Count 4.02, Hemoglobin 11.7L, Hematocrit 37.2 , Mean Corpuscular Volume 92.6, Mean Corpuscular Hemoglobin 29.2, Mean Corpuscular Hemoglobin Concent 31.6L, Red Cell Distribution Width 13.6, Platelet Count 148L, Neutrophils (%) (Auto) 84.4H, Lymphocytes (%) (Auto) 8.7L, Monocytes (%) (Auto) 4.4, Eosinophils (%) (Auto) 0.7, Basophils (%) (Auto) 0.3, Neutrophils # (Auto) 10.7H, Lymphocytes # (Auto) 1.3L, Monocytes # (Auto) 0.6, Eosinophils # (Auto) 0.1, Basophils # (Auto) 0.0, Large Unclassified Cells % 1.5 , Large Unclassified Cells # 0.2, Urine Appearance HAZY, Urine Color YELLOW, Urine pH 5.0, Urine Specific [place] 1.011, Urine Protein 1+H, Urine Glucose (UA ) NEGATIVE, Urine Ketones NEGATIVE, Urine Urobilinogen 0.2, Urine Bilirubin NEGATIVE, Urine Leukocyte Esterase NEGATIVE, Urine Blood 2+H, Urine Nitrite NEGATIVE, Urine WBC (Auto) 2, Urine RBC (Auto) 11H, Urine Hyaline Casts (Auto) 1 , Urine Bacteria (Auto) 1+H, Urine Squamous Epithelial Cells 1, Urine Mucus ( Auto) SMALL, Urine Sperm (Auto) , Anion Gap 9, Glomerular Filtration Rate 35.8L , Lactic Acid Level 3.9*H, Calcium Level 8.7L, Aspartate Amino Transf (AST/SGOT ) 51H, Alanine Aminotransferase (ALT/SGPT) 27, Alkaline Phosphatase 115, Total Bilirubin 0.7, Direct Bilirubin 0.3H, Total Protein 9.0H, Albumin 3.2, Albumin/ Globulin Ratio 0.55L 01/26/17 21:45: Ammonia 58H 01/27/17 02:08: Blood Gas Bicarbonate Standard 24.7, Arterial Blood pH 7.444, Arterial Blood Partial Pressure CO2 35.8, Arterial Blood Partial Pressure O2 146.9H, Arterial Blood Total CO2 25.1, Arterial Blood HCO3 24.0, Arterial Blood Base Excess 0.2, Arterial Blood Oxygen Saturation 99.3H 01/27/17 04:05: Lactic Acid Level 2.1*H 01/27/17 07:26: Bedside Glucose (Misc Panel) 186H 01/27/17 08:35: Lactic Acid Followup at 4 Hours 3.1*H CBC/BMP Laboratory Tests 01/26/17 21:44 Red Blood Count 4.02, Mean Corpuscular Volume 92.6, Mean Corpuscular Hemoglobin 29.2, Mean Corpuscular Hemoglobin Concent 31.6 L, Red Cell Distribution Width 13.6, Neutrophils (%) (Auto) 84.4 H, Lymphocytes (%) (Auto) 8.7 L, Monocytes (% ) (Auto) 4.4, Eosinophils (%) (Auto) 0.7, Basophils (%) (Auto) 0.3, Neutrophils # (Auto) 10.7 H, Lymphocytes # (Auto) 1.3 L, Monocytes # (Auto) 0.6, Eosinophils # (Auto) 0.1, Basophils # (Auto) 0.0 Microbiology Microbiology 01/26/17 Blood Culture, Received Pending 01/26/17 Blood Culture, Received Pending 01/27/17 Influenza Virus Type A Antigen - Final, Complete 01/27/17 Influenza Virus Type B Antigen - Final, Complete 01/27/17 Respiratory Virus Panel (PCR) (PB) - Final, Complete 01/26/17 Urine Culture, Received Pending Rory Porter MD January 27, 2017 10:38
--- NOTE | 2017-01-27 11:20 | REP ---
PORTABLE CHEST: HISTORY: SIRS The interstitial markings are diffusely increased. The technique utilized in obtaining the radiograph has magnified the cardiac silhouette and accentuated the interstitial markings. The cardiomediastinal silhouette is unchanged. There is mild cardiomegaly suspected, however, technique as described above. There is no change in the osseous structures. IMPRESSION: Mild diffuse interstitial edema suspected on this portable exam. Signed by Nathaniel Iraheta DO 01/27/2017 01:32 P
[2017-01-27] MEDS: NYSTATIN 100,000 UNITS/GM TOPICAL PWD 15 GM TOP SCH ×2 (12:38→20:06)
[2017-01-27 14:00] VITALS: BP 144/75
--- NOTE | 2017-01-27 17:08 | HPE ---
DATE OF ADMISSION: 01/27/2017 PRIMARY CARE PROVIDER: Paul Torres MD CHIEF COMPLAINT: Chills and rigors at home, started around 4 p.m. on 01/26/2017. PAST MEDICAL HISTORY: 1. Cirrhosis of liver due to nonalcoholic steatohepatitis (MANZO). 2. Morbid obesity. 3. Obstructive sleep apnea (RENEE), not using any continuous positive airway pressure (CPAP). 4. Diabetes. 5. Hypertension. 6. Diastolic congestive heart failure (CHF). 7. History of hepatic encephalopathy and portal hypertension. 8. Chronic kidney disease (CKD) stage III. 9. Schizoaffective disorder. 10. Hypothyroidism. 11. Gastroesophageal reflux disease (GERD). 12. Hiatal hernia. 13. History of prolonged QTc. 14. Chronic obstructive pulmonary disease (COPD). 15. Chronic bilateral lower extremity venous stasis and chronic stasis ulcer. 16. Bilateral lower extremity lymphedema. 17. Bilateral shoulder impingement syndrome and chronic pain. 18. Hyperlipidemia. 19. Vitamin D deficiency. 20. Osteopenia. 21. Allergic rhinitis. 22. Portal hypertension. 23. Chronic narcotic use. 24. Pancytopenia due to end-stage liver disease. HISTORY OF PRESENT ILLNESS: This is a 61-year-old female with multiple medical comorbidities as mentioned above, was in her usual state of health yesterday when she suddenly developed an episode of rigors and chills at home at around 4 p.m. to 5 p.m. which was not improving, her lips became bluish, her fingertips became bluish, so was brought to the emergency room. She was brought into the emergency room by ambulance for fever and chills. She was vomiting copious amounts of undigested food and medications. In the emergency department (ED) she was noted to be febrile with a temperature of 102.3. She denied any cough or phlegm. Denied any sick contacts. Denied any abdominal pain, diarrhea. Denied any sore throat. As per patient's daughter, patient does have a chronic venous stasis ulcer, very superficial, on the right lower leg which has been draining persistently for the past few days. However, she feels that the drainage has improved now and there is no bad odor and the fluid is clear and serosanguineous. Denied any dysuria, any hematuria. Laboratory data in the ED was significant for a WBC of 12.6, a lactate of 3.9, so the patient was admitted to the hospital for fever and lactic acidosis and possible infection source, yet undetermined. PAST SURGICAL HISTORY: Total abdominal hysterectomy, bilateral salpingo-oophorectomy. ALLERGIES: IBUPROFEN, PENICILLIN, QUINOLONES. HOME MEDICATIONS: - Toujeo insulin 17 units at bedtime - tizanidine 4 mg by mouth three times a day - spironolactone 50 mg by mouth daily - Lasix 40 mg by mouth daily - potassium chloride 20 mEq by mouth twice a day - sertraline 50 mg by mouth daily - pantoprazole 40 mg by mouth daily - oxycodone/acetaminophen 10/325 one tablet by mouth every 6 hours as needed for pain - metoprolol succinate 50 mg by mouth daily - magnesium oxide 400 mg by mouth twice a day - Synthroid 50 mcg by mouth daily - hydroxyzine 25 mg by mouth three times a day as needed for itching - gabapentin 300 mg by mouth twice a day SOCIAL HISTORY: Patient lives with daughter. Walks with a walker. Eats normal food. Denies any alcohol or drug abuse. Denies any smoking. REVIEW OF SYSTEMS: All ten point review of systems negative except for those mentioned in history of present illness (HPI). PHYSICAL EXAMINATION: VITAL SIGNS: Temperature 102.3, pulse 104, respiratory rate 22, blood pressure 141/98, pulse oximetry 86% in room air which improved with 3 liters nasal cannula. GENERAL: Patient awake, but lethargic, but does answer questions, oriented to place and person. HEENT: Normocephalic, atraumatic. Moist mucous membranes. Anicteric eyes. CHEST: Clear to auscultation. CARDIOVASCULAR: S1, S2, regular, tachycardic. No rub, murmur, or gallop. ABDOMEN: Obese, soft, nontender. Bowel sounds present. EXTREMITIES: Trace edema. There is chronic venous stasis changes. There is a 1 x 1 cm superficial ulcer on the right leg which is draining serosanguineous fluid. LABORATORY DATA: WBC 12.6, hemoglobin 11.7, platelets 148, sodium 140, potassium 3.8, chloride 102, bicarbonate 29, BUN 22, creatinine 1.56, glucose 180, lactate 3.9, calcium 8.7. Liver function tests: AST 51, ALT 27, ammonia 58, total protein 9, albumin 3.2. Blood cultures have been drawn. Respiratory panel has been drawn. ASSESSMENT: This is a 61-year-old female admitted for fever. PLAN: 1. For fever we have not determined any source of infection yet, could be a viral syndrome. However, in view of the superficial ulcer and chronic venous stasis, we would cover for possible cellulitis with ceftaroline. Blood cultures have been ordered. Respiratory panel has been ordered. If anything comes back positive, will tailor antibiotics according to it. 2. Cirrhosis of liver due to nonalcoholic steatohepatitis (MANZO). Seems to be at baseline. Will hold Lasix and Aldactone at this point as patient is febrile and may be a little behind on the fluids. Ammonia level is at baseline. 3. Morbid obesity and obstructive sleep apnea (RENEE). Patient has not been using the continuous positive airway pressure (CPAP) for the past 1 year. Will check arterial blood gas (ABG). 4. Metabolic encephalopathy. Patient slightly lethargic on admission, possibly due to fever. Will rule out for infection. 5. Lactic acidosis. We do not have any source of infection yet and the lactic acidosis could be from increased rate of breathing. Patient also does have liver disease so she may also have a higher lactic acid at baseline. 6. Chronic kidney disease (CKD) stage III. Creatinine baseline is around 1.4 Creatinine is close to baseline. 7. Diastolic congestive heart failure. Patient appears to be euvolemic, not in any fluid overload at this point. Will continue to monitor. 8. Diabetes. Will place the patient on sliding scale insulin, Lispro. Will hold Lantus at present as patient is not eating anything by mouth. Once patient starts taking by mouth will restart Lantus. 9. Hypertension. Will continue with home medication. 10. Schizoaffective disorder. Will continue with home medication. 11. Chronic pain in the shoulders and back from degenerative disc disease and impingement. Will continue with Percocet one tablet as needed. Will hold tizanidine at present. 12. Gastroesophageal reflux disease (GERD). Will continue with pantoprazole. 13. Hypothyroidism. Will continue with Synthroid. 14. Chronic obstructive pulmonary disease (COPD). Will continue with nebulizers. 15. Deep venous thrombosis (DVT) prophylaxis has been ordered. 16. Gastrointestinal (GI) prophylaxis has been ordered.
[2017-01-27] MEDS: METOCLOPRAMIDE INJ 10MG/2ML VIAL (J2765) IV PRN (21:12)
[2017-01-27 22:00] VITALS: BP 170/69
[2017-01-28] MEDS: PERCOCET 5MG/325MG TAB PO PRN ×2 (02:39→08:30)
[2017-01-28 06:00] VITALS: BP 130/60
[2017-01-28] MEDS: LEVOTHYROXINE 0.05 MG TAB (50 MCG) PO SCH (06:14)
[2017-01-28 06:28] LABS: BASO % 0.2 % (0.0-1.0); EOS % 0.3 % (0.0-3.0); LARGE UNSTAINED CELL # 0.2 K/mm3 (0.0-0.4); LARGE UNSTAINED CELL % 1.5 % (0.0-4.0); LYMPH # 0.6 K/mm3 (1.5-4.5); LYMPH % 5.8 % (24.0-44.0); MEAN CORPUSCULAR HEMOGLOBIN 29.6 pg (27.0-33.0); MEAN CORPUSCULAR HGB CONC 31.9 g/dl (32.0-36.5); MEAN CORPUSCULAR VOLUME 92.7 fl (80.0-96.0); MONO # 0.4 K/mm3 (0.0-0.8); MONO % 3.4 % (0.0-5.0); NEUTROPHILS # 9.3 K/mm3 (1.8-7.7); NEUTROPHILS % 88.9 % (36.0-66.0); PLATELET COUNT, AUTOMATED 114 k/mm3 (150-450); RED CELL DISTRIBUTION WIDTH 13.8 % (11.5-14.5); WHITE BLOOD COUNT 10.5 K/mm3 (4.0-10.0)
[2017-01-28 06:47] LABS: CREATININE FOR GFR 1.31 MG/DL (0.55-1.02); GLOMERULAR FILTRATION RATE 43.8 (>45); POTASSIUM SERUM 3.9 MEQ/L (3.5-5.1)
[2017-01-28 06:57] LABS: CALCIUM LEVEL 7.1 MG/DL (8.8-10.2)
[2017-01-28 07:04] LABS: ERYTHROCYTE SEDIMENTATION RATE 52 mm/hr (0-30)
[2017-01-28] MEDS: IPRATROPIUM 0.5MG/ALBUTEROL 2.5MG INH SOL UD 3ML (DUONEB)(J7620) NEB SCH ×3 (08:08→23:09)
[2017-01-28] MEDS: CEFTAROLINE FOSAMIL 600 MG in D5W MINI-BAG PLUS 50 ML IV SCH (08:15)
[2017-01-28] MEDS: GABAPENTIN 300 MG CAP PO SCH ×2 (08:16→20:15)
[2017-01-28] MEDS: HumaLOG INSULIN (NovoLOG) PER UNIT SC SCH ×3 (08:16→17:46)
[2017-01-28] MEDS: MAGNESIUM OXIDE 400 MG TAB (MAG-OX) PO SCH ×2 (08:16→20:15)
[2017-01-28] MEDS: METOPROLOL SUCC (TopROL XL) 50MG **XL** TAB PO SCH (08:17)
[2017-01-28] MEDS: SERTRALINE HCL 50 MG TAB PO SCH (08:17)
[2017-01-28] MEDS: PANTOPRAZOLE 40MG TAB (PROTONIX) PO SCH (08:17)
[2017-01-28] MEDS: NYSTATIN 100,000 UNITS/GM TOPICAL PWD 15 GM TOP SCH ×2 (08:30→20:16)
--- NOTE | 2017-01-28 09:18 | IPNPDOC ---
Subjective Date Seen The patient was seen on 01/28/17. Subjective Chief Complaint/HPI The patient is a 61-year-old female admitted with a reason for visit of Fever And Chills. Events since last encounter Pt states she is about the same. Denies any new issues. Denies CP, SOB, Abd pain. Constitutional: Denies: Chills, Fever Pulmonary: Denies: Dyspnea Cardiovascular: Denies: Chest Pain Gastrointestinal: Denies: Abdominal Pain Objective Physical Examination General Exam: Positive: Alert, Cooperative, No Acute Distress, Mild Distress, Moderate Distress, Severe Distress, Other Eye Exam: Positive: PERRLA Neck Exam: Positive: Supple, Negative: thyromegaly Chest Exam: Positive: Clear to auscultation, Diminished, Negative: Rhonchi, Wheezing Heart Exam: Positive: Rate Normal, Negative: Murmurs Abdomen Exam: Positive: Normal bowel sounds, Soft, Negative: Tenderness Extremity Exam: Positive: Swelling Skin Exam: Positive: Other skin issue (hyperpigmentation likely from stasis dermatitis.) Neuro Exam: Positive: Other (left upper extremity shows a tremor; some cogwheel rigidity. no weakness. asterixis not observed.) Assessment /Plan Problems (1) Sepsis due to Streptococcus pyogenes Status: Acute Response to Treatment: Improving Problem Text: D2 ceftaroline 01/28 improved Tm 100.3 (102.3), WBC 10.5 (10.6) 01/29 check BCX for clearance 01/28 changed to cetriaxone (PCN-hives) and clinda, check TTE 01/26 BCX 09/24 S. pyogenes-favor 2 pharyngitis (patient has had sore throat ~3D) vs erysipelas (although no obvious sources on legs) (2) Hepatic encephalopathy Status: Chronic Problem Specific Plan: Monitor Clinically, Repeat Labs, Repeat Tests Problem Text: on lactulose and xifaxan for control at home. contributor to recent admissions elevated lactic acid, not associated with evidence of shock, suspect secondary to chronic hepatic dysfunction (3) CKD (chronic kidney disease) Status: Chronic Response to Treatment: Stable Problem Text: 01/28 at baseline 21/1.3, 3.9 (4) Diastolic CHF Status: Chronic Response to Treatment: Stable Problem Text: Stable off HD diuretic regimen Plan/VTE VTE Prophylaxis Ordered?: Yes Plan IVF: Initiate Diagnostics: Check Labs, MRI (MRI of brain ordered due to new neuro finding) Anticipated Discharge: Home With Services VS, I&O, 24H, Daryl Vital Signs/I&O Vital Signs Date Time Temp Pulse Resp B/P (MAP) Pulse Ox O2 Delivery O2 Flow Rate FiO2 01/28/17 08:30 20 Nasal Cannula 1.0 01/28/17 08:17 72 191/86 01/28/17 06:00 99.7 94 I&O- Last 24 Hours up to 6 AM 01/28/17 06:00 Intake Total 2960 ml Output Total 700 ml Balance 2260 ml Laboratory Data 24H LABS Laboratory Tests 2 01/27/17 20:36: Bedside Glucose (Misc Panel) 170H 01/28/17 06:08: White Blood Count 10.5H, Red Blood Count 3.48L, Hemoglobin 10.3L, Hematocrit 32.3L, Mean Corpuscular Volume 92.7, Mean Corpuscular Hemoglobin 29.6, Mean Corpuscular Hemoglobin Concent 31.9L, Red Cell Distribution Width 13.8, Platelet Count 114L, Neutrophils (%) (Auto) 88.9H, Lymphocytes (%) (Auto) 5.8L, Monocytes (%) (Auto) 3.4, Eosinophils (%) (Auto) 0.3, Basophils (%) (Auto) 0.2, Neutrophils # (Auto) 9.3H, Lymphocytes # (Auto) 0.6L, Monocytes # (Auto) 0.4, Eosinophils # (Auto) 0.0, Basophils # (Auto) 0.0, Large Unclassified Cells % 1.5 , Large Unclassified Cells # 0.2, Erythrocyte Sedimentation Rate 52H, Anion Gap 8, Glomerular Filtration Rate 43.8L, Blood Urea Nitrogen 21H, Creatinine 1.31H, Sodium Level 140, Potassium Level 3.9, Chloride Level 107, Carbon Dioxide Level 25, Calcium Level 7.1#L, C-Reactive Protein, Quantitative 15.20H 01/28/17 06:58: CBC/BMP Laboratory Tests 01/28/17 06:08 Red Blood Count 3.48 L, Mean Corpuscular Volume 92.7, Mean Corpuscular Hemoglobin 29.6, Mean Corpuscular Hemoglobin Concent 31.9 L, Red Cell Distribution Width 13.8, Neutrophils (%) (Auto) 88.9 H, Lymphocytes (%) (Auto) 5.8 L, Monocytes (%) (Auto) 3.4, Eosinophils (%) (Auto) 0.3, Basophils (%) (Auto ) 0.2, Neutrophils # (Auto) 9.3 H, Lymphocytes # (Auto) 0.6 L, Monocytes # (Auto ) 0.4, Eosinophils # (Auto) 0.0, Basophils # (Auto) 0.0, Calcium Level 7.1 #L Microbiology Microbiology 01/26/17 Blood Culture - Preliminary, Resulted No growth after 24 hours . All specim... 01/26/17 Blood Culture - Preliminary, Resulted Streptococcus Pyogenes Grp A 01/27/17 Influenza Virus Type A Antigen - Final, Complete 01/27/17 Influenza Virus Type B Antigen - Final, Complete 01/27/17 Respiratory Virus Panel (PCR) (PB) - Final, Complete 01/26/17 Urine Culture, Received Pending Elmer Pfeiffer January 28, 2017 09:18 Paul Torres M.D. January 28, 2017 16:05
[2017-01-28] MEDS: ENOXAPARIN 30 MG/0.3 ML SYR (J1650) SC SCH (10:58)
[2017-01-28] MEDS: NS 1,000 ML IV SCH ×2 (11:01→20:15)
--- NOTE | 2017-01-28 13:31 | REP ---
MRI study of the brain without IV contrast: History: New left upper extremity tremor. Comparison brain MRI study is from May 25, 2008. The history for the prior study was demyelinating disease. Technique: Axial and sagittal imaging planes are utilized for T1 and T2-weighted scans. Sequences include spin-echo, fast spin echo, FLAIR, and diffusion weighted sequences. MRI findings: No bony calvarial lesion is appreciated. Craniocervical junction and upper cervical cord are normal in appearance. There is no MR evidence of significant paranasal sinus disease. No intraorbital abnormality is appreciated. The bottom most slice on T2-weighted scans shows the top of the left neck cyst described in October 24, 2016 MRI study. The cystic component has increased in size since the 2007 prior exam from 7 mm to 18 mm. There is minimal diffuse cerebral atrophy. There are multiple foci of subcortical and periventricular T2 hyperintensity in the supratentorial brain bilaterally. These are nonspecific and essentially unchanged from the comparison study 2007. There is no evidence of intracranial hemorrhage. Diffusion weighted scan show no restricted diffusion to suggest acute ischemia or active MS plaquing. No T1 hypointensity is seen. No extra-axial fluid collection, mass, or midline shift is seen. Impression: No acute intracranial lesion. Numerous T2 hyperintense foci in the supratentorial brain again noted essentially stable from the 2007 prior exam. Signed by Roney Dorsey MD 01/28/2017 03:43 P
[2017-01-28 14:00] VITALS: BP 137/72
[2017-01-28] MEDS: CLINDAMYCIN 600 MG in APPROPRIATE DILUENT 1 EA IV SCH (16:25)
[2017-01-28] MEDS: ACETAMINOPHEN TAB 650MG DOSE (2X325MG) PO PRN (16:42)
[2017-01-28] MEDS: cefTRIAXone SOD 2 GM in D5W MINI-BAG PLUS 50 ML IV SCH (17:46)
[2017-01-28 22:00] VITALS: BP 163/73
[2017-01-29] VITALS (22 sets, daily range): BP systolic 110–194; BP diastolic 57–100; O2SAT 83–95
[2017-01-29] MEDS: CLINDAMYCIN 600 MG in APPROPRIATE DILUENT 1 EA IV SCH ×3 (00:10→16:23)
[2017-01-29] MEDS ORDERED: FUROSEMIDE 20 MG/2 ML VIAL (J1940) IV ONE (00:30)
[2017-01-29] MEDS: METOCLOPRAMIDE INJ 10MG/2ML VIAL (J2765) IV PRN ×2 (00:31→16:21)
[2017-01-29] MEDS: PERCOCET 5MG/325MG TAB PO PRN ×2 (00:49→17:47)
[2017-01-29] MEDS: ALBUTEROL SULFATE 2.5 MG/0.5 ML INH NEB SOLN NEB PRN ×3 (01:25→11:55)
[2017-01-29 03:17] LABS: ABG BASE EXCESS -0.9 (-2.0-2.0); ABG DEVICE NONREBREATH; ABG HCO3 24.3 MEQ/L (22.0-26.0); ABG PARTIAL PRESSURE CO2 42.1 mmHg (35.0-45.0); ABG PARTIAL PRESSURE O2 123.4 mmHg (75.0-100.0); ABG STANDARD HCO3 23.8 MEQ/L (22.0-26.0); ABG TOTAL CO2 25.6 MEQ/L (23.0-31.0); ABG pH (ARTERIAL) 7.379 UNITS (7.350-7.450)
[2017-01-29] MEDS ORDERED: ALPRAZolam 0.5 MG TAB PO ONE (03:30)
[2017-01-29] MEDS: LEVOTHYROXINE 0.05 MG TAB (50 MCG) PO SCH (05:07)
[2017-01-29] MEDS ORDERED: FUROSEMIDE 40 MG TAB PO ONE (05:45)
[2017-01-29 05:52] LABS: ABG BASE EXCESS -2.4 (-2.0-2.0); ABG DEVICE NONREBREATH; ABG HCO3 23.8 MEQ/L (22.0-26.0); ABG PARTIAL PRESSURE CO2 46.3 mmHg (35.0-45.0); ABG PARTIAL PRESSURE O2 52.8 mmHg (75.0-100.0); ABG STANDARD HCO3 22.2 MEQ/L (22.0-26.0); ABG TOTAL CO2 25.2 MEQ/L (23.0-31.0); ABG pH (ARTERIAL) 7.328 UNITS (7.350-7.450)
[2017-01-29 06:24] LABS: CALCIUM LEVEL 7.2 MG/DL (8.8-10.2); CREATININE FOR GFR 1.19 MG/DL (0.55-1.02); GLOMERULAR FILTRATION RATE 48.9 (>45); POTASSIUM SERUM 3.9 MEQ/L (3.5-5.1)
[2017-01-29] MEDS ORDERED: FUROSEMIDE 40 MG/4 ML VIAL (J1940) IV STA (06:24)
[2017-01-29 06:25] LABS: BASO % 0.2 % (0.0-1.0); EOS # 0.1 K/mm3 (0.0-0.50); EOS % 0.5 % (0.0-3.0); LARGE UNSTAINED CELL # 0.1 K/mm3 (0.0-0.4); LARGE UNSTAINED CELL % 1.1 % (0.0-4.0); LYMPH # 0.7 K/mm3 (1.5-4.5); LYMPH % 4.7 % (24.0-44.0); MEAN CORPUSCULAR HEMOGLOBIN 29.5 pg (27.0-33.0); MEAN CORPUSCULAR VOLUME 92.1 fl (80.0-96.0); MONO # 0.4 K/mm3 (0.0-0.8); MONO % 2.9 % (0.0-5.0); NEUTROPHILS % 90.7 % (36.0-66.0); PLATELET COUNT, AUTOMATED 109 k/mm3 (150-450); WHITE BLOOD COUNT 12.1 K/mm3 (4.0-10.0)
--- NOTE | 2017-01-29 06:30 | REPUSA ---
CLINICAL HISTORY: Shortness of breath. COMMENTS: Comparison to the prior exam on 01/27/2017. Significant increase in bilateral pulmonary infiltrates. The cardiac silhouette is enlarged. There is evidence for pulmonary venous congestion compatible with CHF. There is no definite radiographic evidence for a lung mass. Subacute healing fracture of the right humeral surgical neck. IMPRESSION: 1. Enlarged cardiac silhouette. 2. Significant increase in bilateral pulmonary infiltrates. Thank you for your kind referral of this patient.
[2017-01-29 07:17] LABS: ABG BASE EXCESS -0.4 (-2.0-2.0); ABG PARTIAL PRESSURE CO2 43.8 mmHg (35.0-45.0); ABG PARTIAL PRESSURE O2 67.5 mmHg (75.0-100.0); ABG STANDARD HCO3 24.1 MEQ/L (22.0-26.0); ABG TOTAL CO2 26.3 MEQ/L (23.0-31.0); ABG pH (ARTERIAL) 7.374 UNITS (7.350-7.450)
[2017-01-29] MEDS: HumaLOG INSULIN (NovoLOG) PER UNIT SC SCH ×3 (07:30→17:43)
--- NOTE | 2017-01-29 07:39 | IPNPDOC ---
Text Note Date of Service The patient was seen on 01/29/17. NOTE Family Medicine On-call/Interim management note: I was called throughout the night on Ms. Klein. Somewhere around midnight nursing reported that she was about 3400cc positive on her I/O and that she was having some increased difficulty breathing. I stopped the IV fluids that were still on and ordered 20mg if IV Lasix (which is a home medication that had thus far been held). I resumed her home dose scheduled for 9:00am the next morning. I requested a Zazueta catheter be placed for accurate I/O; this should be discontinued in no more than 2 days. I was called with continued dyspnea and increased work of breathing. She had put out about 400cc of urine from the Lasix that was given a little while earlier. I ordered an ABG. This returned 7.38/42/123 on 15L via non-rebreather mask. Nursing reported that there was increased anxiety so I ordered 0.5mg of alprazolam to see if this would help break the anxiety cycle. At roughly 5:00am I was called to let me know that the above interventions did not seem to work well. She continued to be more anxious, tachypenic and her oxygen saturations were in the high 80s despite 15L non-rebreather + 6L bleed in from a nasal canula. Total output was 1050cc at that point in time. A repeat ABG and portable CXR were ordered. Her Am Lasix was ordered to be given early. The repeat ABG showed 7.33/46/53 on the 15L via non-rebreather + 6L NC. The most concerning thing to me was the precipitous drop in oxygenation. I made the decision to transfer her to the ICU around 5:30am. I examined her around 6:00. She was tachypnic in the high 40s and had an air of fear/anxiety, moving restlessly in the bed. She had course crackles throughout the anterior and lateral lung calderón. The portable chest x-ray revealed extensive pulmonary infiltrates bilaterally. I spoke with the patient who affirmed she is Full Code and wants everything done to sustain her life including mechanical ventilation if needed. She requested that her daughter be notified that she was in the ICU; this had already been done by nursing. I ordered an additional 40mg IV Lasix to be given; this was roughly 5 hours after the previous dose of IV Lasix. I consulted Pulmonary/Critical Care and requested assistance in the unit as I feared she was in pending respiratory failure. Dr. Espinosa recommended she be changed to a high-flow face mask and agreed to see the patient right away. I saw the patient with him when he arrived. He has documented the remaining acute management. VS,Fishbone, I+O VS, Fishbone, I+O Laboratory Tests 01/29/17 05:47 Red Blood Count 3.86 L, Mean Corpuscular Volume 92.1, Mean Corpuscular Hemoglobin 29.5, Mean Corpuscular Hemoglobin Concent 32.0, Red Cell Distribution Width 14.0, Neutrophils (%) (Auto) 90.7 H, Lymphocytes (%) (Auto) 4.7 L, Monocytes (%) (Auto) 2.9, Eosinophils (%) (Auto) 0.5, Basophils (%) (Auto ) 0.2, Neutrophils # (Auto) 11.0 H, Lymphocytes # (Auto) 0.7 L, Monocytes # ( Auto) 0.4, Eosinophils # (Auto) 0.1, Basophils # (Auto) 0.0, Calcium Level 7.2 L Vital Signs Date Time Temp Pulse Resp B/P (MAP) Pulse Ox O2 Delivery O2 Flow Rate FiO2 01/29/17 05:44 106 44 01/29/17 05:39 80 01/29/17 05:17 99.0 154/98 (116) Non-Rebreather 15.0 01/29/17 01:56 100 I&O- Last 24 Hours up to 6 AM 01/29/17 05:59 Intake Total 3540 ml Output Total 1500 ml Balance 2040 ml Basilio Heard MD January 29, 2017 07:39
[2017-01-29] MEDS: IPRATROPIUM 0.5MG/ALBUTEROL 2.5MG INH SOL UD 3ML (DUONEB)(J7620) NEB SCH ×2 (07:44→15:22)
--- NOTE | 2017-01-29 08:37 | IPNPDOC ---
Subjective Date Seen The patient was seen on 01/29/17. Subjective Chief Complaint/HPI The patient is a 61-year-old female admitted with a reason for visit of Fever And Chills. Events since last encounter Pt feels a little better now. Still SOB but states breathing is a little better. Denies Pain. Constitutional: Denies: Chills, Fever Pulmonary: Reports: Dyspnea Cardiovascular: Denies: Chest Pain Gastrointestinal: Denies: Nausea, Vomiting, Abdominal Pain Objective Physical Examination General Exam: Positive: Alert, Cooperative, No Acute Distress, Mild Distress, Moderate Distress, Severe Distress, Other Eye Exam: Positive: PERRLA Neck Exam: Positive: Supple, Negative: thyromegaly Chest Exam: Positive: Diminished, Other (slight coarse crackles), Negative: Rhonchi, Wheezing Heart Exam: Positive: Rate Normal, Negative: Murmurs Abdomen Exam: Positive: Normal bowel sounds, Soft, Negative: Tenderness Extremity Exam: Positive: Swelling Skin Exam: Positive: Other skin issue (hyperpigmentation likely from stasis dermatitis.) Neuro Exam: Positive: Other (left upper extremity shows a tremor; some cogwheel rigidity. no weakness. asterixis not observed.) Assessment /Plan Problems (1) Dyspnea Status: Acute Problem Specific Plan: Consult Specialist, Monitor Clinically, Repeat Labs Problem Text: 01/29 - Pt was transferred to ICU early 01/[address] Heard. Pt was 3400cc positive on her I/O and increased difficulty breathing. IV fluids were stopped and IV Lasix 20 mg was given. Zazueta catheter was placed for accurate I/O and should be discontinued in no more than 2 days. ABG initially 7.38/42/123 on 15L via non-rebreather mask. Repeat ABG showed 7.33/46/53 on the 15L via non-rebreather + 6L NC. Portable chest x-ray revealed extensive pulmonary infiltrates bilaterally. Patient who affirmed she is Full Code. IV Lasix 40 mg given at 05:38 and 06:24. Pulmonary/Critical Care consulted and Dr. Espinosa recommended she be changed to a high-flow face mask. Repeat ABG 7.374/43.8/67.5 Echo ordered. Pt had positive blood cx for strep pyogenes x 1 and was negative x 1 CXR: Enlarged cardiac silhouette, Significant increase in bilateral pulmonary infiltrates. (2) Diastolic CHF Status: Chronic Problem Text: Getting Lasix for volume overload. (IVF was d/c'ed). Echo ordered. (3) Sepsis due to Streptococcus pyogenes Status: Acute Response to Treatment: Improving Problem Text: 01/29 - currently afebrile. Tmax was 100.9 at 01:41. Ceftriaxone and clinda started yesterday. Ceftaroline was d/c'ed yesterday. Echo ordered. Pt had positive blood cx for strep pyogenes x 1 and was negative x 1 01/28 improved Tm 100.3 (102.3), WBC 10.5 (10.6). D2 ceftaroline changed to cetriaxone (PCN-hives) and clinda, check TTE 01/26 BCX 1 S. pyogenes-favor 2 pharyngitis (patient has had sore throat ~3D) vs erysipelas (although no obvious sources on legs) (4) Hepatic encephalopathy Status: Chronic Problem Specific Plan: Monitor Clinically, Repeat Labs, Repeat Tests Problem Text: on lactulose and xifaxan for control at home. contributor to recent admissions elevated lactic acid, not associated with evidence of shock, suspect secondary to chronic hepatic dysfunction (5) CKD (chronic kidney disease) Status: Chronic Response to Treatment: Stable Problem Text: 01/29 - BUN 19/ Creat 1.19. Monitor closely as pt has been getting Lasix 01/28 at baseline 21/1.3, 3.9 Plan/VTE VTE Prophylaxis Ordered?: Yes Plan/Urinary Catheter Reason for insertion/continuin: Other-document below Plan IVF: Initiate Diagnostics: Check Labs, MRI (MRI of brain ordered due to new neuro finding) Anticipated Discharge: Home With Services VS, I&O, 24H, [facility] Vital Signs/I&O Vital Signs Date Time Temp Pulse Resp B/P (MAP) Pulse Ox O2 Delivery O2 Flow Rate FiO2 01/29/17 07:46 93 Aerosol Mask 80 01/29/17 07:43 40 01/29/17 07:18 105 144/75 (98) 01/29/17 06:20 99.6 01/29/17 05:17 15.0 I&O- Last 24 Hours up to 6 AM 01/29/17 06:00 Intake Total 2170 ml Output Total 1500 ml Balance 670 ml Laboratory Data 24H LABS Laboratory Tests 2 01/28/17 11:40: Bedside Glucose (Misc Panel) 213H 01/28/17 16:50: Bedside Glucose (Misc Panel) 222H 01/28/17 20:12: Bedside Glucose (Misc Panel) 254H 01/28/17 21:44: 01/29/17 02:14: Bedside Glucose (Misc Panel) 192H 01/29/17 03:00: Blood Gas Bicarbonate Standard 23.8, Arterial Blood pH 7.379, Arterial Blood Partial Pressure CO2 42.1, Arterial Blood Partial Pressure O2 123.4H, Arterial Blood Total CO2 25.6, Arterial Blood HCO3 24.3, Arterial Blood Base Excess -0.9 , Arterial Blood Oxygen Saturation 98.5, Arterial Blood Gas Respiration Rate 28 , Arterial Blood Gas Oximetry 96, Arterial Blood Gas Puncture Site LT RADIAL, Oxygen Delivery Device NONREBREATH 01/29/17 05:45: Blood Gas Bicarbonate Standard 22.2, Arterial Blood pH 7.328L, Arterial Blood Partial Pressure CO2 46.3H, Arterial Blood Partial Pressure O2 52.8L, Arterial Blood Total CO2 25.2, Arterial Blood HCO3 23.8, Arterial Blood Base Excess -2.4L , Arterial Blood Oxygen Saturation 84.6L, Arterial Blood Gas Respiration Rate 32 , Arterial Blood Gas Oximetry 90, Arterial Blood Gas Puncture Site LT RADIAL, Oxygen Delivery Device NONREBREATH 01/29/17 05:47: White Blood Count 12.1H, Red Blood Count 3.86L, Hemoglobin 11.4L, Hematocrit 35.5L, Mean Corpuscular Volume 92.1, Mean Corpuscular Hemoglobin 29.5, Mean Corpuscular Hemoglobin Concent 32.0, Red Cell Distribution Width 14.0, Platelet Count 109L, Neutrophils (%) (Auto) 90.7H, Lymphocytes (%) (Auto) 4.7L, Monocytes (%) (Auto) 2.9, Eosinophils (%) (Auto) 0.5, Basophils (%) (Auto) 0.2, Neutrophils # (Auto) 11.0H, Lymphocytes # (Auto) 0.7L, Monocytes # (Auto) 0.4, Eosinophils # (Auto) 0.1, Basophils # (Auto) 0.0, Large Unclassified Cells % 1.1 , Large Unclassified Cells # 0.1, Anion Gap 7L, Glomerular Filtration Rate 48.9 , Lactic Acid Level 1.7, Blood Urea Nitrogen 19H, Creatinine 1.19H, Sodium Level 137, Potassium Level 3.9, Chloride Level 104, Carbon Dioxide Level 26, Calcium Level 7.2L 01/29/17 07:15: Blood Gas Bicarbonate Standard 24.1, Arterial Blood pH 7.374, Arterial Blood Partial Pressure CO2 43.8, Arterial Blood Partial Pressure O2 67.5L, Arterial Blood Total CO2 26.3, Arterial Blood HCO3 25.0, Arterial Blood Base Excess -0.4 , Arterial Blood Oxygen Saturation 93.6L, Arterial Blood Gas Puncture Site RT RADIAL 01/29/17 07:59: CBC/BMP Laboratory Tests 01/29/17 05:47 Red Blood Count 3.86 L, Mean Corpuscular Volume 92.1, Mean Corpuscular Hemoglobin 29.5, Mean Corpuscular Hemoglobin Concent 32.0, Red Cell Distribution Width 14.0, Neutrophils (%) (Auto) 90.7 H, Lymphocytes (%) (Auto) 4.7 L, Monocytes (%) (Auto) 2.9, Eosinophils (%) (Auto) 0.5, Basophils (%) (Auto ) 0.2, Neutrophils # (Auto) 11.0 H, Lymphocytes # (Auto) 0.7 L, Monocytes # ( Auto) 0.4, Eosinophils # (Auto) 0.1, Basophils # (Auto) 0.0, Calcium Level 7.2 L Microbiology Microbiology 01/29/17 Blood Culture, Received Pending 01/29/17 Blood Culture, Received Pending 01/26/17 Blood Culture - Preliminary, Resulted No Growth after 48 hours. All Specime... 01/26/17 Blood Culture - Preliminary, Resulted Streptococcus Pyogenes Grp A 01/28/17 Group A Streptococcus Screen (PB) - Final, Resulted 01/28/17 Eye/Ear/Nose/Throat Culture, Resulted Pending 01/27/17 Influenza Virus Type A Antigen - Final, Complete 01/27/17 Influenza Virus Type B Antigen - Final, Complete 01/27/17 Respiratory Virus Panel (PCR) (PB) - Final, Complete 01/26/17 Urine Culture - Final, Complete Elmer Pfeiffer RPA-C January 29, 2017 08:36
[2017-01-29] MEDS: PANTOPRAZOLE 40MG TAB (PROTONIX) PO SCH (08:53)
[2017-01-29] MEDS: MAGNESIUM OXIDE 400 MG TAB (MAG-OX) PO SCH ×2 (08:53→20:44)
[2017-01-29] MEDS: ENOXAPARIN 30 MG/0.3 ML SYR (J1650) SC SCH (08:53)
[2017-01-29] MEDS: SERTRALINE HCL 50 MG TAB PO SCH (08:53)
[2017-01-29] MEDS: NYSTATIN 100,000 UNITS/GM TOPICAL PWD 15 GM TOP SCH ×2 (08:54→20:44)
[2017-01-29] MEDS: METOPROLOL SUCC (TopROL XL) 50MG **XL** TAB PO SCH (08:54)
[2017-01-29] MEDS: GABAPENTIN 300 MG CAP PO SCH ×2 (08:54→20:44)
[2017-01-29] MEDS ORDERED: FUROSEMIDE 40 MG TAB PO SCH (09:00)
--- NOTE | 2017-01-29 10:10 | CCN ---
DATE OF SERVICE: 01/29/2017 I was called to see this 61-year-old female for hypoxic respiratory failure admitted on 01/27/2017 with chills and rigors. She has had an extensive past medical history (hypertension, diabetes, congestive heart failure, chronic kidney disease, psychiatric disease, hypothyroidism, chronic obstructive pulmonary disease (COPD), hiatal hernia with reflux disease, narcotic abuse, and obstructive sleep apnea syndrome). Following admission to the hospital, her blood culture shows Streptococcus pyogenes, one of two, and she has been receiving appropriate antibiotics. She received fluids hydration and early this morning developed increasing tachypnea and oxygen need. Her oxygen therapy was increased, and she is now transferred to the intensive care unit in respiratory distress. Temperature is 99, pulse rate 106, respirations 44, blood pressure 154/48. HEENT: Her oral and nasal mucosa are pink. There is no stridor over the trachea. No adenopathy in her neck. Jugular veins are distended. Carotid upstroke sluggish. Heart sounds are regular without appreciable murmur quite distant. Difficult to appreciate over lung sounds. Breath sounds are bilateral rales. She is using accessory muscles to breathe. Abdomen is soft with intact bowel sounds. Extremities: Show edema, chronic skin changes. DIAGNOSTIC STUDIES: White cell count is 12.1, hemoglobin 11.4, hematocrit 35.5, platelet count 109,000 down from 114. Differential white cell count shows 90% neutrophils. Her sodium is 137, potassium 3.9, chloride 104, CO2 26, BUN 19, creatinine 1.1, glucose 182. Serum lactate is down to 1.7 from 3.1. Calcium is 7.2. Arterial blood gases show pH 7.32, pCO2 46, pO2 52, this on non-rebreather mask. Chest x-ray shows diffuse bilateral interstitial edema. The primary problem requiring critical attention is acute hypoxic respiratory failure. Suspect cardiogenic pulmonary edema, possible noncardiogenic pulmonary edema. Lasix has been administered. Will change to a high-flow oxygen system and check arterial blood gases and repeat a chest x-ray later this morning. If the A-a gradient is not improving, the patient will require intubation and central line placement for assessment of intravascular volume. If the chest x-ray fails to clear, will obtain an echocardiogram to evaluate her valves. Streptococcus pyogenes bacteremia. The patient has been on appropriate antibiotics with intravenous (IV) Rocephin based on the sensitivities. Obstructive sleep apnea syndrome. I will arrange for the patient to use continuous positive airway pressure (CPAP) at bedtime. The case was discussed with the attending physician at bedside. The patient's condition is critical. Intensive care unit (ICU) care is appropriate. Prognosis is guarded at this point. 82 minutes spent in the provision of bedside critical care and coordination.
--- NOTE | 2017-01-29 10:17 | REP ---
PORTABLE CHEST: AP portable view of the chest is performed and compared to prior study of the same day. Diffuse bilateral infiltrates appear slightly improved. Cardiomediastinal silhouette is largely obscured by the adjacent infiltrates. IMPRESSION: There appears to be mild improvement of diffuse dense bilateral infiltrates. Signed by Jim Calderon MD 01/29/2017 04:07 P
[2017-01-29] MEDS: ACETAMINOPHEN TAB 650MG DOSE (2X325MG) PO PRN (10:28)
[2017-01-29] MEDS: FUROSEMIDE 40 MG/4 ML VIAL (J1940) IV SCH ×2 (12:41→20:44)
[2017-01-29 12:59] LABS: ABG BASE EXCESS 1.4 (-2.0-2.0); ABG HCO3 26.8 MEQ/L (22.0-26.0); ABG PARTIAL PRESSURE CO2 45.4 mmHg (35.0-45.0); ABG PARTIAL PRESSURE O2 52.8 mmHg (75.0-100.0); ABG STANDARD HCO3 25.5 MEQ/L (22.0-26.0); ABG TOTAL CO2 28.2 MEQ/L (23.0-31.0); ABG pH (ARTERIAL) 7.389 UNITS (7.350-7.450)
[2017-01-29 15:32] LABS: ABG BASE EXCESS 1.6 (-2.0-2.0); ABG HCO3 26.4 MEQ/L (22.0-26.0); ABG PARTIAL PRESSURE CO2 42.1 mmHg (35.0-45.0); ABG PARTIAL PRESSURE O2 64.3 mmHg (75.0-100.0); ABG STANDARD HCO3 25.8 MEQ/L (22.0-26.0); ABG TOTAL CO2 27.7 MEQ/L (23.0-31.0); ABG pH (ARTERIAL) 7.415 UNITS (7.350-7.450)
[2017-01-29 17:42] LABS: ALBUMIN 2.2 GM/DL (3.2-5.2); CALCIUM LEVEL 6.9 MG/DL (8.8-10.2); CREATININE FOR GFR 1.23 MG/DL (0.55-1.02); GLOMERULAR FILTRATION RATE 47.1 (>45); PHOSPHORUS LEVEL 2.1 MG/DL (2.5-4.9); POTASSIUM SERUM 3.5 MEQ/L (3.5-5.1)
[2017-01-29] MEDS: cefTRIAXone SOD 2 GM in D5W MINI-BAG PLUS 50 ML IV SCH (17:43)
--- NOTE | 2017-01-29 19:03 | ECGEPIP ---
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
[2017-01-30] VITALS (27 sets, daily range): BP systolic 113–146; BP diastolic 56–78; O2SAT 90–95
[2017-01-30] MEDS: ACETAMINOPHEN 650 MG SUPP PR PRN ×2 (00:14→04:11)
[2017-01-30] MEDS: CLINDAMYCIN 600 MG in APPROPRIATE DILUENT 1 EA IV SCH ×2 (00:14→09:09)
[2017-01-30 01:30] LABS: ABG BASE EXCESS 4.1 (-2.0-2.0); ABG HCO3 28.4 MEQ/L (22.0-26.0); ABG PARTIAL PRESSURE CO2 41.5 mmHg (35.0-45.0); ABG PARTIAL PRESSURE O2 60.3 mmHg (75.0-100.0); ABG TOTAL CO2 29.7 MEQ/L (23.0-31.0); ABG pH (ARTERIAL) 7.453 UNITS (7.350-7.450)
[2017-01-30 05:04] LABS: BASO % 0.2 % (0.0-1.0); EOS # 0.1 K/mm3 (0.0-0.50); EOS % 0.9 % (0.0-3.0); LARGE UNSTAINED CELL # 0.1 K/mm3 (0.0-0.4); LARGE UNSTAINED CELL % 1.2 % (0.0-4.0); LYMPH # 0.6 K/mm3 (1.5-4.5); LYMPH % 4.8 % (24.0-44.0); MEAN CORPUSCULAR HEMOGLOBIN 29.5 pg (27.0-33.0); MEAN CORPUSCULAR HGB CONC 32.6 g/dl (32.0-36.5); MEAN CORPUSCULAR VOLUME 90.5 fl (80.0-96.0); MONO # 0.3 K/mm3 (0.0-0.8); MONO % 3.1 % (0.0-5.0); NEUTROPHILS % 89.9 % (36.0-66.0); PLATELET COUNT, AUTOMATED 116 k/mm3 (150-450); RED CELL DISTRIBUTION WIDTH 14.1 % (11.5-14.5); WHITE BLOOD COUNT 10.1 K/mm3 (4.0-10.0)
[2017-01-30 05:26] LABS: CALCIUM LEVEL 7.3 MG/DL (8.8-10.2); CREATININE FOR GFR 1.24 MG/DL (0.55-1.02); GLOMERULAR FILTRATION RATE 46.7 (>45); POTASSIUM SERUM 3.5 MEQ/L (3.5-5.1)
[2017-01-30] MEDS: LEVOTHYROXINE 0.05 MG TAB (50 MCG) PO SCH (06:00)
[2017-01-30 06:01] LABS: ABG BASE EXCESS 5.2 (-2.0-2.0); ABG HCO3 29.8 MEQ/L (22.0-26.0); ABG PARTIAL PRESSURE CO2 43.5 mmHg (35.0-45.0); ABG PARTIAL PRESSURE O2 76.4 mmHg (75.0-100.0); ABG STANDARD HCO3 29.1 MEQ/L (22.0-26.0); ABG TOTAL CO2 31.1 MEQ/L (23.0-31.0); ABG pH (ARTERIAL) 7.453 UNITS (7.350-7.450)
[2017-01-30] MEDS: METOCLOPRAMIDE INJ 10MG/2ML VIAL (J2765) IV PRN (06:15)
[2017-01-30] MEDS: HumaLOG INSULIN (NovoLOG) PER UNIT SC SCH ×4 (06:16→17:36)
[2017-01-30] MEDS: IPRATROPIUM 0.5MG/ALBUTEROL 2.5MG INH SOL UD 3ML (DUONEB)(J7620) NEB SCH ×4 (07:23→22:49)
--- NOTE | 2017-01-30 08:02 | IPNPDOC ---
Subjective Date Seen The patient was seen on 01/30/17. Subjective Chief Complaint/HPI The patient is a 61-year-old female admitted with a reason for visit of Fever And Chills. Events since last encounter Pt states she feels a little better today. Still SOB. Denies CP, Abd pain. Constitutional: Reports: Fever, Denies: Chills Pulmonary: Denies: Dyspnea Cardiovascular: Denies: Chest Pain Gastrointestinal: Denies: Nausea, Vomiting, Abdominal Pain Objective Physical Examination General Exam: Positive: Alert, Cooperative, No Acute Distress, Mild Distress, Moderate Distress, Severe Distress, Other Eye Exam: Positive: PERRLA Neck Exam: Positive: Supple, Negative: thyromegaly Chest Exam: Positive: Wheezing, Diminished, Negative: Rhonchi Heart Exam: Positive: Rate Normal, Negative: Murmurs Abdomen Exam: Positive: Normal bowel sounds, Soft, Negative: Tenderness Extremity Exam: Positive: Swelling Skin Exam: Positive: Other skin issue (hyperpigmentation likely from stasis dermatitis.) Neuro Exam: Positive: Other (left upper extremity shows a tremor; some cogwheel rigidity. no weakness. asterixis not observed.) Assessment /Plan Problems (1) Dyspnea Status: Acute Problem Specific Plan: Consult Specialist, Monitor Clinically, Repeat Labs Problem Text: 01/30 - Pt getting BiPap. Pulmonary following. Had been receiving Lasix. ECHO shows normal diastolic and systolic function with only mild valve degenerative changes, making Dx of CHF less likely, favor ARDS 01/29 - Pt was transferred to ICU early 01/[address] Heard. Pt was 3400cc positive on her I/O and increased difficulty breathing. IV fluids were stopped and IV Lasix 20 mg was given. Zazueta catheter was placed for accurate I/O and should be discontinued in no more than 2 days. ABG initially 7.38/42/123 on 15L via non-rebreather mask. Repeat ABG showed 7.33/46/53 on the 15L via non-rebreather + 6L NC. Portable chest x-ray revealed extensive pulmonary infiltrates bilaterally. Patient who affirmed she is Full Code. PO Lasix 40 mg given at 05:38 andIV Lasix 40 mg given at 06:24. Pulmonary/Critical Care consulted and Dr. Espinosa recommended she be changed to a high-flow face mask. Repeat ABG 7.374/43.8/67.5 Echo ordered. Pt had positive blood cx for strep pyogenes x 1 and was negative x 1 CXR: Enlarged cardiac silhouette, Significant increase in bilateral pulmonary infiltrates. (2) Diastolic CHF Status: Chronic Problem Text: 01/30 - Has been receiving IV Lasix. 01/29 - Getting Lasix for volume overload. (IVF was d/c'ed). Echo ordered. 01/30: ECHO shows normal EF and normal diastolic function with minimal degenerative valvular disease. Her pulmonary edema is more likely ARDS (3) Sepsis due to Streptococcus pyogenes Status: Acute Response to Treatment: Improving Problem Text: 01/30 - Current Temp is 100.0. Tmax 101.7. On IV Ceftriaxone and IV Clinda Day 3. Echo ordered and apparently done but report not yet available. Pt had positive blood cx for strep pyogenes x 1 and was negative x 1 01/29 - currently afebrile. Tmax was 100.9 at 01:41. Ceftriaxone and clinda started yesterday. Ceftaroline was d/c'ed yesterday. Echo ordered. Pt had positive blood cx for strep pyogenes x 1 and was negative x 1 01/28 improved Tm 100.3 (102.3), WBC 10.5 (10.6). D2 ceftaroline changed to cetriaxone (PCN-hives) and clinda, check TTE 01/26 BCX 1/2 S. pyogenes-favor 2 pharyngitis (patient has had sore throat ~3D) vs erysipelas (although no obvious sources on legs) (4) Hepatic encephalopathy Status: Chronic Problem Specific Plan: Monitor Clinically, Repeat Labs, Repeat Tests Problem Text: on lactulose and xifaxan for control at home. contributor to recent admissions elevated lactic acid, not associated with evidence of shock, suspect secondary to chronic hepatic dysfunction (5) CKD (chronic kidney disease) Status: Chronic Response to Treatment: Stable Problem Text: 01/30 - BUN 22/ Creat 1.24. Monitor closely as pt had been getting Lasix 01/29 - BUN 19/ Creat 1.19. Monitor closely as pt has been getting Lasix /8 at baseline 21/1.3, 3.9 Plan/VTE VTE Prophylaxis Ordered?: Yes Plan/Urinary Catheter Reason for insertion/continuin: Other-document below Plan IVF: Initiate Diagnostics: Check Labs, MRI (MRI of brain ordered due to new neuro finding) Anticipated Discharge: Home With Services VS, I&O, 24H, [facility] Vital Signs/I&O Vital Signs Date Time Temp Pulse Resp B/P (MAP) Pulse Ox O2 Delivery O2 Flow Rate FiO2 01/30/17 07:23 60 01/30/17 07:11 83 48 123/66 (85) 93 NIPPV (BIPAP/CPAP) 01/30/17 05:11 100.0 01/29/17 05:17 15.0 I&O- Last 24 Hours up to 6 AM 01/30/17 06:00 Intake Total 240 ml Output Total 5890 ml Balance -5650 ml Laboratory Data 24H LABS Laboratory Tests 2 01/29/17 07:59: B-Type Natriuretic Peptide 598H 01/29/17 11:20: Bedside Glucose (Misc Panel) 185H 01/29/17 12:13: Total Creatine Kinase 47, Creatine Kinase MB 1.0, Creatine Kinase MB Relative Index 2.12, Troponin I < 0.02 01/29/17 12:56: Blood Gas Bicarbonate Standard 25.5, Arterial Blood pH 7.389, Arterial Blood Partial Pressure CO2 45.4H, Arterial Blood Partial Pressure O2 52.8L, Arterial Blood Total CO2 28.2, Arterial Blood HCO3 26.8H, Arterial Blood Base Excess 1.4 , Arterial Blood Oxygen Saturation 87.5L, Arterial Blood Gas Puncture Site LT RADIAL 01/29/17 15:28: Blood Gas Bicarbonate Standard 25.8, Arterial Blood pH 7.415, Arterial Blood Partial Pressure CO2 42.1, Arterial Blood Partial Pressure O2 64.3L, Arterial Blood Total CO2 27.7, Arterial Blood HCO3 26.4H, Arterial Blood Base Excess 1.6 , Arterial Blood Oxygen Saturation 93.4L, Arterial Blood Gas Puncture Site RT RADIAL 01/29/17 17:14: Blood Urea Nitrogen 19H, Creatinine 1.23H, Sodium Level 140, Potassium Level 3.5 , Chloride Level 103, Carbon Dioxide Level 28, Anion Gap 9, Glomerular Filtration Rate 47.1, Calcium Level 6.9L, Phosphorus Level 2.1L, Total Creatine Kinase 46, Creatine Kinase MB 1.0, Creatine Kinase MB Relative Index 2.17, Troponin I < 0.02, Albumin 2.2#L 01/29/17 17:39: Bedside Glucose (Misc Panel) 133H 01/30/17 00:13: Bedside Glucose (Misc Panel) 144H 01/30/17 01:00: Blood Gas Bicarbonate Standard 28.0H, Arterial Blood pH 7.453H, Arterial Blood Partial Pressure CO2 41.5, Arterial Blood Partial Pressure O2 60.3L, Arterial Blood Total CO2 29.7, Arterial Blood HCO3 28.4H, Arterial Blood Base Excess 4.1H , Arterial Blood Oxygen Saturation 92.1L, Arterial Blood Gas Puncture Site LT RADIAL 01/30/17 04:53: White Blood Count 10.1H, Red Blood Count 3.85L, Hemoglobin 11.4L, Hematocrit 34.9L, Mean Corpuscular Volume 90.5, Mean Corpuscular Hemoglobin 29.5, Mean Corpuscular Hemoglobin Concent 32.6, Red Cell Distribution Width 14.1, Platelet Count 116L, Neutrophils (%) (Auto) 89.9H, Lymphocytes (%) (Auto) 4.8L, Monocytes (%) (Auto) 3.1, Eosinophils (%) (Auto) 0.9, Basophils (%) (Auto) 0.2, Neutrophils # (Auto) 9.0H, Lymphocytes # (Auto) 0.6L, Monocytes # (Auto) 0.3, Eosinophils # (Auto) 0.1, Basophils # (Auto) 0.0, Large Unclassified Cells % 1.2 , Large Unclassified Cells # 0.1, Anion Gap 7L, Glomerular Filtration Rate 46.7 , Blood Urea Nitrogen 22H, Creatinine 1.24H, Sodium Level 139, Potassium Level 3.5, Chloride Level 103, Carbon Dioxide Level 29, Calcium Level 7.3L 01/30/17 05:53: Blood Gas Bicarbonate Standard 29.1H, Arterial Blood pH 7.453H, Arterial Blood Partial Pressure CO2 43.5, Arterial Blood Partial Pressure O2 76.4, Arterial Blood Total CO2 31.1H, Arterial Blood HCO3 29.8H, Arterial Blood Base Excess 5.2H, Arterial Blood Oxygen Saturation 95.5 CBC/BMP Laboratory Tests 01/29/17 17:14 Anion Gap 9 01/30/17 04:53 Red Blood Count 3.85 L, Mean Corpuscular Volume 90.5, Mean Corpuscular Hemoglobin 29.5, Mean Corpuscular Hemoglobin Concent 32.6, Red Cell Distribution Width 14.1, Neutrophils (%) (Auto) 89.9 H, Lymphocytes (%) (Auto) 4.8 L, Monocytes (%) (Auto) 3.1, Eosinophils (%) (Auto) 0.9, Basophils (%) (Auto ) 0.2, Neutrophils # (Auto) 9.0 H, Lymphocytes # (Auto) 0.6 L, Monocytes # (Auto ) 0.3, Eosinophils # (Auto) 0.1, Basophils # (Auto) 0.0, Calcium Level 7.3 L Microbiology Microbiology 01/29/17 Blood Culture, Received Pending 01/29/17 Blood Culture - Preliminary, Resulted No growth after 24 hours . All specim... 01/26/17 Blood Culture - Preliminary, Resulted No Growth after 72 hours. All specime... 01/26/17 Blood Culture - Final, Complete Streptococcus Pyogenes Grp A 01/28/17 Group A Streptococcus Screen (PB) - Final, Complete 01/28/17 Eye/Ear/Nose/Throat Culture - Final, Complete 01/27/17 Influenza Virus Type A Antigen - Final, Complete 01/27/17 Influenza Virus Type B Antigen - Final, Complete 01/27/17 Respiratory Virus Panel (PCR) (PB) - Final, Complete 01/26/17 Urine Culture - Final, Complete Elmer Pfeiffer January 30, 2017 08:02 Rory Porter MD January 30, 2017 15:26
[2017-01-30] MEDS: ENOXAPARIN 30 MG/0.3 ML SYR (J1650) SC SCH (09:09)
[2017-01-30] MEDS: NYSTATIN 100,000 UNITS/GM TOPICAL PWD 15 GM TOP SCH ×2 (09:09→21:12)
[2017-01-30] MEDS: PANTOPRAZOLE 40MG TAB (PROTONIX) PO SCH (09:10)
[2017-01-30] MEDS: MAGNESIUM OXIDE 400 MG TAB (MAG-OX) PO SCH ×2 (09:10→21:12)
[2017-01-30] MEDS: GABAPENTIN 300 MG CAP PO SCH ×2 (09:10→21:12)
[2017-01-30] MEDS: SERTRALINE HCL 50 MG TAB PO SCH (09:10)
[2017-01-30] MEDS: METOPROLOL SUCC (TopROL XL) 50MG **XL** TAB PO SCH (09:11)
--- NOTE | 2017-01-30 11:08 | ECHO ---
DATE OF PROCEDURE: 01/29/2017 AGE: 61 GENDER: Female REFERRING PHYSICIAN: Dr. Paul Torres HEIGHT: 65 inches. WEIGHT: 264 pounds. BODY SURFACE AREA: 2.23 sq m. INPATIENT: Intensive care unit (ICU) Room 3209 INDICATION: Sepsis (streptococcus). MEASUREMENTS: 2D MEASUREMENTS: RV - 3.8 cm LV- 5.0 cm Septum - 1.1 cm Posterior wall - 1.0 cm Aortic root - 2.8 cm LA - 3.6 cm LVEF - 65% DOPPLER MEASUREMENTS: AV - 1.5 m/s LVOT - 0.9 m/s LVOT diameter - 1.8 cm MV-E: 110 A: 89 EA ratio 1.3 Early mitral deacceleration time 162 ms E-prime - 8 A-prime - 11 E/E prime ratio 14 PV - 0.9 m/s Pulmonary artery acceleration time 130 ms RVSP - 36 mmHg IVC - 1.5 cm COMMENTS: Normal sinus rhythm without intraventricular conduction disturbance. Technically challenging study in light of the patient's body habitus but diagnostically useful information was still obtained. Normal cardiac chamber sizes and wall thickness. On real-time imaging from the parasternal and apical projections, wall motion was symmetrical and normal to hyperkinetic. Slightly thickened mitral annulus but normal leaflet thickness and excursion with no posterior systolic buckling. Three equal size aortic cusps with marginal cusp edge thickening but adequate cusp separation. Normal aortic root size. No apparent intracardiac mass or pericardial effusion. Color flow Doppler study taken from the parasternal and apical projection showed very mild mitral and tricuspid but no aortic insufficiency. Guided continuous wave Doppler of her aortic valve showed a normal peak systolic velocity against LV outflow tract obstruction. Pulsed and continuous wave Doppler of her LV inflow tract taken from the apical four-chamber projection showed normal diastolic filling velocities and pattern against mitral stenosis or LV diastolic dysfunction. Pulsed and continuous wave Doppler of her pulmonary trunk showed a normal peak systolic velocity against RV outflow tract obstruction. Her pulmonary artery acceleration time was also normal against an elevated pulmonary vascular resistance. Guided continuous wave Doppler of her tricuspid valve allowed our estimation of her right ventricular systolic pressure (upper limits of normal to mildly increased). Normal IVC size and collapse against an elevated central venous pressure. CONCLUSIONS: Some mild degenerative changes of her mitral and aortic valvular apparatus without functional valvular abnormality. No clear sign of endocarditis. If this diagnosis is seriously suspect, a transesophageal echocardiogram would be advised. Otherwise essentially normal echocardiographic study.
[2017-01-30] MEDS ORDERED: SODIUM CHLORIDE 0.9% INJ 10 ML SYR IV PRN (11:45)
--- NOTE | 2017-01-30 11:49 | REP ---
Portable chest x-ray: Single view. History: Pulmonary edema. Comparison study January 29, 2017. Findings: EKG monitoring electrodes and oxygen delivery tubing are again seen. Heart is not felt to be enlarged. There is a diffuse alveolar opacification pattern present bilaterally and extensively. This is a little more prominent in the upper lobes than in the lower lobes. No significant change from yesterday's radiographs. Impression: Severe diffuse alveolar pulmonary edema pattern more prominent than on January 27, 2017 but unchanged from January 29, 2017. Signed by Roney Dorsey MD 01/30/2017 04:33 P
[2017-01-30] MEDS: ALBUTEROL SULFATE 2.5 MG/0.5 ML INH NEB SOLN NEB PRN (12:05)
[2017-01-30] MEDS: PERCOCET 5MG/325MG TAB PO PRN ×2 (12:17→18:24)
[2017-01-30] MEDS: cefTRIAXone SOD 2 GM in D5W MINI-BAG PLUS 50 ML IV SCH (17:34)
[2017-01-30] MEDS: SODIUM CHLORIDE 0.9% INJ 10 ML SYR IV SCH (17:36)
[2017-01-31] VITALS (38 sets, daily range): BP systolic 65–131; BP diastolic 35–84; O2SAT 85–95
[2017-01-31] MEDS: PERCOCET 5MG/325MG TAB PO PRN (01:55)
[2017-01-31] MEDS ORDERED: MIDAZOLAM INJ 5 MG/ML VIAL (J2250) As Ordered ONE ×2 (02:38→02:48)
[2017-01-31] MEDS ORDERED: PROPOFOL 1,000 MG/100 ML VIAL As Ordered ONE (02:52)
[2017-01-31] MEDS ORDERED: MORPHINE 2 MG/ML 1ML SYRINGE As Ordered ONE (03:02)
[2017-01-31] MEDS ORDERED: PROPOFOL 1,000 MG in APPROPRIATE DILUENT 1 EA IV SCH (03:07)
--- NOTE | 2017-01-31 03:24 | REP ---
Clinical: Endotracheal tube placement. Comparison: 01/30/2017. Findings: Endotracheal tube is approximately 2 cm above the raphael. Left PICC line identified with tip in the SVC. Visualized portions of the cardiac silhouette are grossly normal. Diffuse bilateral multifocal infiltrates are noted throughout the lung calderón. Layering effusions cannot be excluded. No pneumothorax. Skeletal structures intact. Impression: 1. Endotracheal tube approximately 2 cm above the raphael. 2. Diffuse bilateral multifocal infiltrates unchanged from prior examination. Signed by Juan Duckworth MD 01/31/2017 03:16 A
--- NOTE | 2017-01-31 03:26 | REP ---
Clinical: Hypoxemia. Comparison: 01/30/2017. Findings: Severe diffuse bilateral infiltrates/opacities are noted. Findings likely represent multifocal pneumonia and/or pulmonary edema. Effusions cannot be excluded. No obvious pneumothorax. The mediastinum and cardiac silhouette are incompletely evaluated due to overlying opacities. A left PICC line is identified with tip in the SVC. Fracture involving the proximal right humerus noted. Impression: Severe bilateral multifocal infiltrates/opacities. Signed by Juan Duckworth MD 01/31/2017 03:17 A
[2017-01-31] MEDS ORDERED: REFRIGERATOR IV KEYS XX PRN (03:30)
[2017-01-31] MEDS: MORPHINE 2 MG/ML 1ML SYRINGE IV PRN (03:40)
[2017-01-31] MEDS: MIDAZOLAM INJ 2 MG/2 ML VIAL (J2250) IV PRN ×2 (03:45→04:33)
[2017-01-31] MEDS: IPRATROPIUM 0.5MG/ALBUTEROL 2.5MG INH SOL UD 3ML (DUONEB)(J7620) NEB SCH ×6 (04:00→23:28)
[2017-01-31] MEDS: MORPHINE SULF IN 0.9% NACL 100 MG in APPROPRIATE DILUENT 1 EA IV SCH ×2 (04:01)
[2017-01-31] MEDS: MIDAZOLAM HCL 100 MG in D5W 80 ML IV SCH ×2 (04:03→13:36)
[2017-01-31 04:28] LABS: ABG BASE EXCESS 4.1 (-2.0-2.0); ABG HCO3 29.3 MEQ/L (22.0-26.0); ABG PARTIAL PRESSURE CO2 46.7 mmHg (35.0-45.0); ABG TOTAL CO2 30.7 MEQ/L (23.0-31.0); ABG pH (ARTERIAL) 7.415 UNITS (7.350-7.450)
[2017-01-31] MEDS ORDERED: MIDAZOLAM INJ 2 MG/2 ML VIAL (J2250) IV ONE (04:30)
[2017-01-31 05:27] LABS: BASO % 0.1 % (0.0-1.0); EOS # 0.1 K/mm3 (0.0-0.50); LARGE UNSTAINED CELL # 0.1 K/mm3 (0.0-0.4); LARGE UNSTAINED CELL % 0.6 % (0.0-4.0); LYMPH # 0.7 K/mm3 (1.5-4.5); MEAN CORPUSCULAR HEMOGLOBIN 29.6 pg (27.0-33.0); MEAN CORPUSCULAR HGB CONC 31.8 g/dl (32.0-36.5); MEAN CORPUSCULAR VOLUME 93.2 fl (80.0-96.0); MONO # 0.5 K/mm3 (0.0-0.8); MONO % 3.4 % (0.0-5.0); NEUTROPHILS # 12.5 K/mm3 (1.8-7.7); NEUTROPHILS % 89.9 % (36.0-66.0); PLATELET COUNT, AUTOMATED 151 k/mm3 (150-450); RED CELL DISTRIBUTION WIDTH 14.4 % (11.5-14.5); WHITE BLOOD COUNT 13.9 K/mm3 (4.0-10.0)
[2017-01-31 05:36] LABS: CALCIUM LEVEL 6.7 MG/DL (8.8-10.2); CREATININE FOR GFR 1.49 MG/DL (0.55-1.02); GLOMERULAR FILTRATION RATE 37.7 (>45); POTASSIUM SERUM 3.3 MEQ/L (3.5-5.1)
[2017-01-31] MEDS: VECURONIUM BROMIDE 50 MG in D5W 50 ML IV SCH ×2 (06:33→11:10)
[2017-01-31] MEDS: NOREPINEPHRINE BITARTRATE 8 MG in D5W 500 ML IV SCH ×2 (06:41→20:56)
[2017-01-31] MEDS: LEVOTHYROXINE 0.05 MG TAB (50 MCG) PO SCH (06:41)
[2017-01-31] MEDS: HumaLOG INSULIN (NovoLOG) PER UNIT SC SCH ×4 (06:41→17:41)
[2017-01-31] MEDS: SODIUM CHLORIDE 0.9% INJ 10 ML SYR IV SCH ×2 (06:42→17:41)
--- NOTE | 2017-01-31 07:32 | IPNPDOC ---
Subjective Date Seen The patient was seen on 01/31/17. Subjective Chief Complaint/HPI The patient is a 61-year-old female admitted with a reason for visit of Fever And Chills. Events since last encounter Pt is sleeping/sedated. General: Reports: ROS Unobtainable Objective Physical Examination General Exam: Positive: No Acute Distress, Negative: Alert Eye Exam: Positive: PERRLA Neck Exam: Positive: Supple, Negative: thyromegaly Chest Exam: Positive: Diminished Heart Exam: Positive: Rate Normal, Negative: Murmurs Abdomen Exam: Positive: Normal bowel sounds, Soft, Negative: Tenderness Extremity Exam: Positive: Swelling Skin Exam: Positive: Other skin issue (hyperpigmentation likely from stasis dermatitis.) Assessment /Plan Problems (1) Dyspnea Status: Acute Problem Specific Plan: Consult Specialist, Monitor Clinically, Repeat Labs Problem Text: 01/31 - Pt was placed on ventilator early this morning for worsening respiratory function. Dr Espinosa following. Likely ARDs from Strep. Getting IV Ceftriaxone. WBC up some to 13.9 but likely due to stress. Currently afebrile with Tmax 100.5 at 00:00. 01/30 - Pt getting BiPap. Pulmonary following. Had been receiving Lasix. ECHO shows normal diastolic and systolic function with only mild valve degenerative changes, making Dx of CHF less likely, favor ARDS 01/29 - Pt was transferred to ICU early 01/[address] Heard. Pt was 3400cc positive on her I/O and increased difficulty breathing. IV fluids were stopped and IV Lasix 20 mg was given. Zazueta catheter was placed for accurate I/O and should be discontinued in no more than 2 days. ABG initially 7.38/42/123 on 15L via non-rebreather mask. Repeat ABG showed 7.33/46/53 on the 15L via non-rebreather + 6L NC. Portable chest x-ray revealed extensive pulmonary infiltrates bilaterally. Patient who affirmed she is Full Code. PO Lasix 40 mg given at 05:38 andIV Lasix 40 mg given at 06:24. Pulmonary/Critical Care consulted and Dr. Espinosa recommended she be changed to a high-flow face mask. Repeat ABG 7.374/43.8/67.5 Echo ordered. Pt had positive blood cx for strep pyogenes x 1 and was negative x 1 CXR: Enlarged cardiac silhouette, Significant increase in bilateral pulmonary infiltrates. (2) Diastolic CHF Status: Chronic Problem Text: 01/31 - Off of Lasix. Creat up. Monitor. Worsening renal function not a good prognostic indicator 01/30 - Has been receiving IV Lasix.01/30: ECHO shows normal EF and normal diastolic function with minimal degenerative valvular disease. Her pulmonary edema is more likely ARDS 01/29 - Getting Lasix for volume overload. (IVF was d/c'ed). Echo ordered. (3) Sepsis due to Streptococcus pyogenes Status: Acute Response to Treatment: Improving Problem Text: 01/31 - Pt was placed on ventilator early this morning for worsening respiratory function. Dr Espinosa following. Likely ARDs from Strep. Getting IV Ceftriaxone. WBC up some to 13.9 but likely due to stress. Currently afebrile with Tmax 100.5 at 00:00. 01/30 - Current Temp is 100.0. Tmax 101.7. On IV Ceftriaxone and IV Clinda Day 3. Echo ordered and apparently done but report not yet available. Pt had positive blood cx for strep pyogenes x 1 and was negative x 1 01/29 - currently afebrile. Tmax was 100.9 at 01:41. Ceftriaxone and clinda started yesterday. Ceftaroline was d/c'ed yesterday. Echo ordered. Pt had positive blood cx for strep pyogenes x 1 and was negative x 1 01/28 improved Tm 100.3 (102.3), WBC 10.5 (10.6). D2 ceftaroline changed to cetriaxone (PCN-hives) and clinda, check TTE 01/26 BCX 1/2 S. pyogenes-favor 2 pharyngitis (patient has had sore throat ~3D) vs erysipelas (although no obvious sources on legs) (4) Hepatic encephalopathy Status: Chronic Problem Specific Plan: Monitor Clinically, Repeat Labs, Repeat Tests Problem Text: on lactulose and xifaxan for control at home. contributor to recent admissions elevated lactic acid, not associated with evidence of shock, suspect secondary to chronic hepatic dysfunction (5) CKD (chronic kidney disease) Status: Chronic Response to Treatment: Stable Problem Text: 01/31 - BUN 29/ Creat 1.49. 01/30 - BUN 22/ Creat 1.24. Monitor closely as pt had been getting Lasix 01/29 - BUN 19/ Creat 1.19. Monitor closely as pt has been getting Lasix 01/28 at baseline 21/1.3, 3.9 (6) Hypokalemia Status: Acute Problem Specific Plan: Monitor Clinically, Repeat Labs Problem Text: 01/31 - K 3.3. Give K run. Plan/VTE VTE Prophylaxis Ordered?: Yes Plan/Urinary Catheter Reason for insertion/continuin: Critical Pt monitoring Plan IVF: Initiate Respiratory: Other Respiratory (Intubated) Diagnostics: Check Labs, MRI (MRI of brain ordered due to new neuro finding) Anticipated Discharge: Home With Services VS, I&O, 24H, [facility] Vital Signs/I&O Vital Signs Date Time Temp Pulse Resp B/P (MAP) Pulse Ox O2 Delivery O2 Flow Rate FiO2 01/31/17 05:38 92 32 91 90 01/31/17 05:38 Ventilator 01/31/17 02:00 131/78 (95) 01/31/17 01:00 98.7 01/29/17 05:17 15.0 I&O- Last 24 Hours up to 6 AM 01/31/17 06:00 Intake Total 190 ml Output Total 965 ml Balance -775 ml Laboratory Data 24H LABS Laboratory Tests 2 01/30/17 11:10: Bedside Glucose (Misc Panel) 130H 01/30/17 17:29: Bedside Glucose (Misc Panel) 112 01/31/17 00:04: Bedside Glucose (Misc Panel) 98 01/31/17 04:26: Blood Gas Bicarbonate Standard 28.0H, Arterial Blood pH 7.415, Arterial Blood Partial Pressure CO2 46.7H, Arterial Blood Partial Pressure O2 67.0L, Arterial Blood Total CO2 30.7, Arterial Blood HCO3 29.3H, Arterial Blood Base Excess 4.1H , Arterial Blood Oxygen Saturation 92.8L, Arterial Blood Gas Puncture Site ART LINE 01/31/17 05:02: White Blood Count 13.9H, Red Blood Count 3.52L, Hemoglobin 10.4L, Hematocrit 32.8L, Mean Corpuscular Volume 93.2, Mean Corpuscular Hemoglobin 29.6, Mean Corpuscular Hemoglobin Concent 31.8L, Red Cell Distribution Width 14.4, Platelet Count 151, Neutrophils (%) (Auto) 89.9H, Lymphocytes (%) (Auto) 5.0L, Monocytes (%) (Auto) 3.4, Eosinophils (%) (Auto) 1.0, Basophils (%) (Auto) 0.1, Neutrophils # (Auto) 12.5H, Lymphocytes # (Auto) 0.7L, Monocytes # (Auto) 0.5, Eosinophils # (Auto) 0.1, Basophils # (Auto) 0.0, Large Unclassified Cells % 0.6 , Large Unclassified Cells # 0.1, Anion Gap 9, Glomerular Filtration Rate 37.7L , Blood Urea Nitrogen 29H, Creatinine 1.49H, Sodium Level 142, Potassium Level 3.3L, Chloride Level 104, Carbon Dioxide Level 29, Calcium Level 6.7L CBC/BMP Laboratory Tests 01/31/17 05:02 Red Blood Count 3.52 L, Mean Corpuscular Volume 93.2, Mean Corpuscular Hemoglobin 29.6, Mean Corpuscular Hemoglobin Concent 31.8 L, Red Cell Distribution Width 14.4, Neutrophils (%) (Auto) 89.9 H, Lymphocytes (%) (Auto) 5.0 L, Monocytes (%) (Auto) 3.4, Eosinophils (%) (Auto) 1.0, Basophils (%) (Auto ) 0.1, Neutrophils # (Auto) 12.5 H, Lymphocytes # (Auto) 0.7 L, Monocytes # ( Auto) 0.5, Eosinophils # (Auto) 0.1, Basophils # (Auto) 0.0, Calcium Level 6.7 L Microbiology Microbiology 01/29/17 Blood Culture - Preliminary, Resulted No growth after 24 hours . All specim... 01/29/17 Blood Culture - Preliminary, Resulted No Growth after 48 hours. All Specime... 01/26/17 Blood Culture - Preliminary, Resulted No Growth after 72 hours. All specime... 01/26/17 Blood Culture - Final, Complete Streptococcus Pyogenes Grp A 01/28/17 Group A Streptococcus Screen (PB) - Final, Complete 01/28/17 Eye/Ear/Nose/Throat Culture - Final, Complete 01/27/17 Influenza Virus Type A Antigen - Final, Complete 01/27/17 Influenza Virus Type B Antigen - Final, Complete 01/27/17 Respiratory Virus Panel (PCR) (PB) - Final, Complete 01/26/17 Urine Culture - Final, Complete Elmer Pfeiffer RPA-Joao January 31, 2017 07:32 Rory Porter MD January 31, 2017 14:52
[2017-01-31] MEDS ORDERED: KCL 10MEQ IN 100ML SWI (KRUN) 10 MEQ in APPROPRIATE DILUENT 1 EA IV ONE ×2 (08:00)
[2017-01-31 09:08] LABS: ABG PARTIAL PRESSURE CO2 50.9 mmHg (35.0-45.0); ABG PARTIAL PRESSURE O2 89.1 mmHg (75.0-100.0); ABG STANDARD HCO3 21.1 MEQ/L (22.0-26.0); ABG TOTAL CO2 24.5 MEQ/L (23.0-31.0); ABG pH (ARTERIAL) 7.272 UNITS (7.350-7.450)
[2017-01-31] MEDS: PANTOPRAZOLE 40MG INJ (PROTONIX) (C9113) IV SCH (09:08)
[2017-01-31] MEDS: ENOXAPARIN 30 MG/0.3 ML SYR (J1650) SC SCH (09:08)
[2017-01-31] MEDS: CHLORHEXIDINE GLUCONATE 0.12 % 15ML UDC (PERIDEX ORAL RINSE) MT SCH ×2 (09:08→20:29)
[2017-01-31] MEDS: NYSTATIN 100,000 UNITS/GM TOPICAL PWD 15 GM TOP SCH ×2 (09:09→20:30)
--- NOTE | 2017-01-31 10:30 | CCN ---
DATE: 01/30/2017 The patient is seen in the intensive care unit on noninvasive positive pressure ventilation. She is oxygenating better than she had been and her oxygenation status is improving slowly. She remains tachypneic, but admits to significant anxiety. Apparently, she suffered a similar episode in another hospital 1 year ago, had an aspiration event, required intubation and mechanical ventilatory support and is anxious about going the same route. She is sleeping at intervals and is much more comfortable with her breathing and tolerating the noninvasive positive pressure ventilation well. Her vital signs are temperature 98, pulse rate 83, respirations 40, blood pressure 116/65. Ins and outs for the past 24 hours 850 in and 6260 out. Since midnight, 100 in and 755 out. At bedside, she is ill-appearing and tachypneic, but able to respond to simple questions. Admits to being anxious. HEENT: Oral mucosa are pink. She is wearing a facial mask to deliver noninvasive positive pressure ventilation and there is minimal air leak. Neck is supple without meningismus. Jugular veins are not distended today. Heart sounds are regular. Somewhat distant breath sounds, coarse, diminished, but no focal sounds. Intermittent rales were appreciated. The chest is symmetric. Abdomen is soft. There are bowel sounds in the right lower quadrant. Extremities are cool. Pulses diminished, but palpable. DIAGNOSTIC STUDIES: Sodium is 139, potassium 3.5, chloride 103, CO2 29, BUN 22, creatinine 1.24, glucose 150. White cell count is 10.1, hemoglobin 11.4, hematocrit 34.9 and platelet count 116,000. Arterial blood gas shows pH 7.45, pCO2 43, pO2 is up to 76, and saturation 93%. Chest x-ray continues to show five lobed infiltrates, slow steady improvement is noted on comparing the images. Formal report is pending. Blood cultures have shown one of two positive for Strep pyogens. The primary problem requiring critical attention is acute hypoxic respiratory failure. Initial cardiogenic edema was addressed with diuretics. X-ray remains abnormal and her pO2 FIO2 ratio is still elevated. I am beginning to suspect a component of noncardiogenic pulmonary edema. As she is responding to noninvasive positive pressure ventilation, we will continue close monitoring of gas exchange and I will increase the PEEP slightly. Bacteremia with Strep pyogens on one out of two blood cultures. White cell count is down. She is still having some fevers. Her blood pressure has been good. I have reviewed this with the primary care service and will discontinue the clindamycin and continue with ceftriaxone that is more than sufficient coverage. An echocardiogram has been ordered, report is not present on the chart at this time. Chronic obstructive pulmonary disease. The patient is on beta agonist therapy. Deep vein thrombosis (DVT) prophylaxis is being addressed with sequential hose and subcutaneous heparin. Ulcer prophylaxis being addressed Protonix. The patient's condition is critical. Prognosis is guarded. I have updated the patient and her daughter at bedside. They are aware of her status at this point and the potential for deterioration requiring intubation and mechanical ventilatory support, but wish to avoid this if at all possible. We will continue maximal supportive care. 58 minutes was spent in the provision of bedside critical care and coordination.
[2017-01-31 10:58] LABS: ALBUMIN 1.8 GM/DL (3.2-5.2); ALBUMIN/GLOBULIN RATIO 0.42 (1.00-1.93); BILIRUBIN,TOTAL 0.8 MG/DL (0.2-1.0); CALCIUM LEVEL 6.6 MG/DL (8.8-10.2); CREATININE FOR GFR 1.84 MG/DL (0.55-1.02); GLOMERULAR FILTRATION RATE 29.6 (>45); PHOSPHORUS LEVEL 2.5 MG/DL (2.5-4.9); POTASSIUM SERUM 3.6 MEQ/L (3.5-5.1); TOTAL PROTEIN 6.1 GM/DL (6.4-8.2)
[2017-01-31] MEDS ORDERED: NS 500 ML IV ONE ×2 (11:45→20:45)
[2017-01-31 12:25] LABS: ABG BASE EXCESS -0.5 (-2.0-2.0); ABG HCO3 27.1 MEQ/L (22.0-26.0); ABG PARTIAL PRESSURE CO2 59.9 mmHg (35.0-45.0); ABG PARTIAL PRESSURE O2 102.3 mmHg (75.0-100.0); ABG TOTAL CO2 28.9 MEQ/L (23.0-31.0); ABG pH (ARTERIAL) 7.273 UNITS (7.350-7.450)
--- NOTE | 2017-01-31 16:35 | CCN ---
DATE: 01/31/2017 CRITICAL CARE NOTE: I was called to reevaluate this patient in the intensive care unit for falling oxygen saturations. She had been making slow and steady progress with regards to her oxygen needs but respiratory rate remained high. Nursing called to indicate a low saturation and oxygen was increased, a chest x-ray was ordered. On my arrival the patient was very tachypneic, confused, oxygen was up to 70% and saturations were just 90. At bedside her temperature is 98.7, maximum temperature (T-max) for the past 24 hours 100.5, pulse rate 99, respirations 58, blood pressure 131/75. Intake and output for the past 24 hours 240 in, 1505 out, since midnight zero in, 100 out. HEENT: There was no stridor. No adenopathy. Mucosa was moist. Neck was supple. Heart sounds regular without appreciable murmur. Breath sounds markedly diminished bilaterally with tight expiratory wheeze. Abdomen soft with bowel sounds in the right lower quadrant. Extremities show no edema. Pulses are palpable times four. Skin is warm and dry. We obtained a stat portable chest x-ray which now shows progressive progression of interstitial infiltrates from the prior film. The primary problem requiring critical attention is noncardiogenic pulmonary edema secondary to Streptococcus pyogens bacteremia. As the patient's lung function has deteriorated despite addressing fluid access earlier and her pO2 FIO2 ratio which had been responding to noninvasive positive pressure ventilation has now begun to reverse. Formal endotracheal tube intubation and mechanical ventilation will be necessary. We will plan to sedate her, begin initial mechanical ventilation with lung protective settings, and also initiate paralysis as current evidence suggests improved outcomes. Close followup of arterial blood gases will be necessary. I have updated the patient's daughters by phone who are aware of the decline in their mother's condition and critical nature of her illness. The patient's blood pressure fell with initiation of propofol. We will change her sedation to Versed in an effort to gain control of respiratory rate. The patient's condition is critical. Prognosis is poor. 2 hours and 8 minutes was spent in the provision of bedside critical care and coordination.
[2017-01-31] MEDS: cefTRIAXone SOD 2 GM in D5W MINI-BAG PLUS 50 ML IV SCH (17:41)
[2017-01-31 18:08] LABS: ABG BASE EXCESS 0.2 (-2.0-2.0); ABG PARTIAL PRESSURE O2 79.8 mmHg (75.0-100.0); ABG STANDARD HCO3 24.7 MEQ/L (22.0-26.0); ABG TOTAL CO2 28.7 MEQ/L (23.0-31.0); ABG pH (ARTERIAL) 7.317 UNITS (7.350-7.450)
--- NOTE | 2017-01-31 18:09 | REP ---
PICC LINE INSERTION WITH SITE-RITE: The procedure was performed under the direct supervision of Dr. Calderon. The risks and benefits of the procedure were explained to the patient and informed consent was obtained. The procedure was performed in the ICU at the bedside. The left basilic vein was localized using ultrasound guidance. The skin was prepped and draped in a sterile fashion. 2% Lidocaine was used as a local anesthetic. Using ultrasound guidance the basilic vein was cannulated and a 0.018 guidewire was inserted. The needle was removed and a 5.5-Peruvian dilator and peel-away sheath was inserted over the guidewire. A 5.5-Peruvian dual lumen catheter was cut to a length of 45 cm. The dilator was removed and the catheter was inserted over the guidewire. A portable chest x-ray was performed and the image demonstrates the tip of the catheter to be in the SVC. The peel-away sheath was removed and the catheter with flushed with heparinized saline as per hospital protocol. The catheter was affixed to the skin and a sterile dressing was applied. The patient tolerated the procedure well and there were no immediate complications. Reviewed by CHERI Melo 02/01/2017 05:00 PEdited and Signed by Jim Calderon MD 02/01/2017 07:54 P
[2017-01-31 19:08] LABS: ALBUMIN 1.7 GM/DL (3.2-5.2); CALCIUM LEVEL 6.4 MG/DL (8.8-10.2); CREATININE FOR GFR 2.01 MG/DL (0.55-1.02); GLOMERULAR FILTRATION RATE 26.7 (>45); PHOSPHORUS LEVEL 2.5 MG/DL (2.5-4.9); POTASSIUM SERUM 3.4 MEQ/L (3.5-5.1)
[2017-02-01] VITALS (29 sets, daily range): BP systolic 98–164; BP diastolic 43–72; O2SAT 91–97
[2017-02-01] MEDS: MIDAZOLAM HCL 100 MG in D5W 80 ML IV SCH (03:30)
[2017-02-01] MEDS: IPRATROPIUM 0.5MG/ALBUTEROL 2.5MG INH SOL UD 3ML (DUONEB)(J7620) NEB SCH ×6 (03:40→23:01)
[2017-02-01] MEDS: SODIUM CHLORIDE 0.9% INJ 10 ML SYR IV SCH ×2 (06:00→18:00)
[2017-02-01] MEDS: LEVOTHYROXINE 0.05 MG TAB (50 MCG) PO SCH (06:05)
[2017-02-01] MEDS: HumaLOG INSULIN (NovoLOG) PER UNIT SC SCH ×4 (06:06→18:00)
[2017-02-01] MEDS: MIDAZOLAM INJ 2 MG/2 ML VIAL (J2250) IV PRN ×5 (06:24→23:11)
[2017-02-01 06:43] LABS: ABG BASE EXCESS -0.4 (-2.0-2.0); ABG HCO3 25.9 MEQ/L (22.0-26.0); ABG PARTIAL PRESSURE O2 86.7 mmHg (75.0-100.0); ABG STANDARD HCO3 24.1 MEQ/L (22.0-26.0); ABG TOTAL CO2 27.4 MEQ/L (23.0-31.0); ABG pH (ARTERIAL) 7.332 UNITS (7.350-7.450)
[2017-02-01 06:50] LABS: BASO # 0.1 K/mm3 (0.0-0.2); BASO % 0.7 % (0.0-1.0); EOS # 0.4 K/mm3 (0.0-0.50); EOS % 4.6 % (0.0-3.0); LARGE UNSTAINED CELL # 0.2 K/mm3 (0.0-0.4); LARGE UNSTAINED CELL % 1.8 % (0.0-4.0); LYMPH # 1.7 K/mm3 (1.5-4.5); LYMPH % 15.8 % (24.0-44.0); MEAN CORPUSCULAR HEMOGLOBIN 29.5 pg (27.0-33.0); MEAN CORPUSCULAR VOLUME 92.3 fl (80.0-96.0); MONO # 0.3 K/mm3 (0.0-0.8); MONO % 3.1 % (0.0-5.0); NEUTROPHILS # 7.3 K/mm3 (1.8-7.7); PLATELET COUNT, AUTOMATED 200 k/mm3 (150-450); RED CELL DISTRIBUTION WIDTH 14.6 % (11.5-14.5); WHITE BLOOD COUNT 9.8 K/mm3 (4.0-10.0)
[2017-02-01 07:15] LABS: ALBUMIN 1.6 GM/DL (3.2-5.2); ALBUMIN/GLOBULIN RATIO 0.37 (1.00-1.93); BILIRUBIN,TOTAL 0.5 MG/DL (0.2-1.0); CALCIUM LEVEL 6.2 MG/DL (8.8-10.2); CREATININE FOR GFR 1.6 MG/DL (0.55-1.02); GLOMERULAR FILTRATION RATE 34.8 (>45); TOTAL PROTEIN 5.9 GM/DL (6.4-8.2)
[2017-02-01 07:50] LABS: PHOSPHORUS LEVEL 1.4 MG/DL (2.5-4.9); POTASSIUM SERUM 2.9 MEQ/L (3.5-5.1)
[2017-02-01] MEDS: MORPHINE SULF IN 0.9% NACL 100 MG in APPROPRIATE DILUENT 1 EA IV SCH ×2 (08:09)
[2017-02-01] MEDS: FLUTICASONE HFA 220 MCG 12 GM INHALER (FLOVENT) INH SCH ×2 (09:00→19:43)
[2017-02-01] MEDS: CHLORHEXIDINE GLUCONATE 0.12 % 15ML UDC (PERIDEX ORAL RINSE) MT SCH ×2 (09:56→21:38)
[2017-02-01] MEDS: PANTOPRAZOLE 40MG INJ (PROTONIX) (C9113) IV SCH (09:56)
[2017-02-01] MEDS: NYSTATIN 100,000 UNITS/GM TOPICAL PWD 15 GM TOP SCH ×2 (09:56→21:12)
[2017-02-01] MEDS: KCL 20MEQ IN 100ML SWI (KRUN) 20 MEQ in APPROPRIATE DILUENT 1 EA IV SCH ×6 (09:57→12:02)
--- NOTE | 2017-02-01 09:59 | REP ---
PORTABLE CHEST: AP portable view of the chest is performed and compared to a prior study of 01/31/2017. There appears to be mild improvement of diffuse bilateral infiltrates. Endotracheal tube has not definitely changed in position. There is now nasogastric tube present with the sideport in the stomach. Left arm PICC line is unchanged in position. IMPRESSION: There appears to be some improvement of diffuse bilateral infiltrates. Placement of nasogastric tube with sideport in the stomach. Endotracheal tube unchanged. Signed by Jim Calderon MD 02/01/2017 07:57 P
--- NOTE | 2017-02-01 10:02 | RO ---
DATE OF PROCEDURE: 01/31/2017 PREPROCEDURE DIAGNOSIS: Hypoxemia. POSTPROCEDURE DIAGNOSIS: Hypoxemia. PROCEDURE: Direct laryngoscopy with endotracheal tube intubation. DESCRIPTION OF PROCEDURE: The patient was seen in the intensive care unit hypoxemic in respiratory distress. Versed was given for sedation and a GlideScope was used to visualize the glottic structures. A #8 endotracheal tube was paired and placed through the vocal cords to a distance of 23 cm. The balloon was inflated. Good bilateral breath sounds were appreciated. CO2 was noted on the monitor and a postprocedure chest x-ray confirmed good placement. There were no complications. PREPROCEDURE DIAGNOSIS: Hypotension. POSTPROCEDURE DIAGNOSIS: Hypotension. PROCEDURE PERFORMED: Left radial arterial line placement. The patient was seen in the intensive care unit (ICU), critically ill. The skin overlying the left radial artery was prepped with ChloraPrep and draped in a sterile fashion. A #25 gauge needle as used to raise a skin wheal of 1% lidocaine. A #20 gauge needle was then placed in through the skin and in the left radial artery. Free return of arterial blood was obtained. A basket tipped guidewire was advanced and an anterior cath placed over the guidewire. The anterior cath was placed in place and connected to a pressure monitoring symptoms. Good waveform was appreciated on the monitor. The catheter was secured in position with a sterile dressing. No complications.
[2017-02-01] MEDS ORDERED: POTASSIUM PHOSPHATE INJ 18 MMOL in D5W 250 ML IV ONE (14:00)
[2017-02-01 14:44] LABS: ABG BASE EXCESS 0.4 (-2.0-2.0); ABG PARTIAL PRESSURE CO2 53.2 mmHg (35.0-45.0); ABG PARTIAL PRESSURE O2 58.5 mmHg (75.0-100.0); ABG STANDARD HCO3 24.7 MEQ/L (22.0-26.0); ABG TOTAL CO2 28.7 MEQ/L (23.0-31.0); ABG pH (ARTERIAL) 7.324 UNITS (7.350-7.450)
[2017-02-01] MEDS: NOREPINEPHRINE BITARTRATE 8 MG in D5W 500 ML IV SCH (15:03)
[2017-02-01] MEDS: NS 500 ML IV SCH ×2 (15:25→15:46)
[2017-02-01] MEDS: ENOXAPARIN 30 MG/0.3 ML SYR (J1650) SC SCH (15:44)
[2017-02-01] MEDS: cefTRIAXone SOD 2 GM in D5W MINI-BAG PLUS 50 ML IV SCH (18:00)
[2017-02-01] MEDS: MORPHINE 2 MG/ML 1ML SYRINGE IV PRN (21:11)
[2017-02-01] MEDS ORDERED: NS 500 ML IV ONE (21:30)
--- NOTE | 2017-02-01 22:07 | CCN ---
DATE: 02/01/2017 NOTE: Ms. Klein remains critically ill with acute respiratory distress syndrome (ARDS). 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 She had been paralyzed for the first 24 hours, which ended around 2 a.m. today. She is still heavily sedated. She will desaturate with movement and suctioning and slowly recovers. Overall, her oxygenation appears to be improved. She remains hypotensive and is requiring low dose of Levophed. Her urine output has been marginal overnight, and she did appear to respond to small fluid boluses. OBJECTIVE: PHYSICAL EXAMINATION: Ms. Klein is intubated and synchronous with the ventilator. VITAL SIGNS: Temperature 98.8 with a maximal temperature of 99.8, respiratory rate was initially 20 (set rate and now 20, new set rate), blood pressure was 111/48 with a mean arterial pressure (MAP) of 69, SpO2 95% on an FiO2 of 0.5. HEENT: Anicteric, pupils 2-3 mm and responsive. Nares: Moist mucosa. Oropharynx: Endotracheal (ET) tube and orogastric (OG) tube in place. Moist mucosa surrounding it. NECK: Supple without apparent jugular venous distention (JVD), thyromegaly, or masses. Trachea is midline. LYMPH NODE: Without cervical or supraclavicular lymphadenopathy. LUNGS: Symmetric excursion, mildly diminished air entry, expiratory wheeze heard on the left side anteriorly and posteriorly. No significant crackles or rhonchi. Prolonged expiratory phase and retractions. CARDIOVASCULAR: Regular rate and rhythm with a normal S1, S2. No murmur, rub, or gallop appreciated. ABDOMEN: Diminished but present bowel sounds, soft, nondistended. No hepatosplenomegaly or masses appreciated. EXTREMITIES: Warm and well perfused, without clubbing, cyanosis, or edema. Palpable pedal pulses bilaterally. SKIN: Notable for venous stasis changes of the lower extremities bilaterally. LABORATORY DATA: Chemistries this morning show sodium 143, potassium 2.9, chloride 105, bicarbonate 29, anion gap 9, BUN 37, creatinine 1.6 (decreased from 2.0), glucose 106, calcium 6.2, phosphorus 1.4. Total bilirubin 0.5, AST 33, ALT 12, alkaline phosphatase 82, LDH 498, CK 98, total protein 5.9, and albumin 1.6. CBC shows a hemoglobin of 10, hematocrit of 31.2, platelet count 200,000, white blood cell count 9800 with a differential 74% neutrophils, 15% lymphocytes, 3% monocytes. Yesterdays intake and output were 1095 in and 696 out, making a +399. Thus far today she has had 467 in and 587 out, making her -120. Weight 116.9 kg. I reviewed her chest x-ray as well as the report from earlier today. The chest x-ray shows the endotracheal tube in good position. Normal-appearing cardiac silhouette. There remain bilateral diffuse infiltrates with perhaps slight improvement. Arterial blood gas on pressure control of 18/12, a rate of 28, with an FiO2 of 0.5 was 7.33/50/87 with a measured saturation of 96%. IMPRESSION: 1. Acute respiratory distress syndrome, felt secondary to Streptococcus pyogenes sepsis. 2. Streptococcus pyogenes sepsis / SIRS. 3. Acute and chronic kidney failure. 4. Hypotension, felt in large part secondary to sedation and analgesics. There may also be a contribution from sepsis. 5. Chronic obstructive pulmonary disease, on bronchodilators. 6. Diabetes mellitus, on sliding-scale insulin. 7. Infectious disease, on ceftriaxone, day 5. 8. Deep vein thrombosis and stress ulcer prophylaxis in place. 9. Nutrition, currently nothing by mouth. RECOMMENDATIONS: 1. Will continue mechanical ventilator support. I will change her to a volume control method per the lung protective strategy. Her 6 mL/kg predicted tidal volume is 342 mL with her 8 mL/kg predicted body weight tidal volume in 456 mL. 2. Continue current antibiotic. 3. Will start tube feeds. 4. Will intermittently follow central venous pressure (CVP) to help guide fluid status. 5. We will replace electrolytes. PROGNOSIS: Guarded. CRITICAL CARE TIME: 50 minutes, not including procedure time. [facility]
[2017-02-01] MEDS: NS 1,000 ML IV SCH (22:11)
[2017-02-02] VITALS (30 sets, daily range): BP systolic 90–134; BP diastolic 39–63; O2SAT 89–94
[2017-02-02] MEDS: MIDAZOLAM INJ 2 MG/2 ML VIAL (J2250) IV PRN ×13 (00:10→23:40)
[2017-02-02] MEDS: HumaLOG INSULIN (NovoLOG) PER UNIT SC SCH ×5 (00:10→23:45)
[2017-02-02] MEDS: IPRATROPIUM 0.5MG/ALBUTEROL 2.5MG INH SOL UD 3ML (DUONEB)(J7620) NEB SCH ×6 (03:44→23:25)
[2017-02-02] MEDS: MORPHINE 2 MG/ML 1ML SYRINGE IV PRN (04:12)
[2017-02-02 05:52] LABS: ABG BASE EXCESS -1.3 (-2.0-2.0); ABG PARTIAL PRESSURE O2 66.7 mmHg (75.0-100.0); ABG STANDARD HCO3 23.3 MEQ/L (22.0-26.0); ABG TOTAL CO2 26.5 MEQ/L (23.0-31.0); ABG pH (ARTERIAL) 7.325 UNITS (7.350-7.450)
[2017-02-02] MEDS: SODIUM CHLORIDE 0.9% INJ 10 ML SYR IV SCH ×2 (06:00→18:00)
[2017-02-02 06:03] LABS: BASO # 0.1 K/mm3 (0.0-0.2); BASO % 0.5 % (0.0-1.0); EOS # 0.3 K/mm3 (0.0-0.50); EOS % 2.3 % (0.0-3.0); LARGE UNSTAINED CELL # 0.2 K/mm3 (0.0-0.4); LARGE UNSTAINED CELL % 1.7 % (0.0-4.0); LYMPH # 1.2 K/mm3 (1.5-4.5); LYMPH % 9.7 % (24.0-44.0); MEAN CORPUSCULAR HEMOGLOBIN 29.3 pg (27.0-33.0); MEAN CORPUSCULAR VOLUME 94.5 fl (80.0-96.0); MONO # 0.3 K/mm3 (0.0-0.8); MONO % 2.8 % (0.0-5.0); NEUTROPHILS # 9.8 K/mm3 (1.8-7.7); NEUTROPHILS % 82.9 % (36.0-66.0); PLATELET COUNT, AUTOMATED 220 k/mm3 (150-450); RED CELL DISTRIBUTION WIDTH 14.8 % (11.5-14.5); WHITE BLOOD COUNT 11.8 K/mm3 (4.0-10.0)
[2017-02-02 06:24] LABS: ALBUMIN 1.6 GM/DL (3.2-5.2); ALBUMIN/GLOBULIN RATIO 0.35 (1.00-1.93); BILIRUBIN,TOTAL 0.4 MG/DL (0.2-1.0); CALCIUM LEVEL 6.1 MG/DL (8.8-10.2); CREATININE FOR GFR 1.37 MG/DL (0.55-1.02); GLOMERULAR FILTRATION RATE 41.6 (>45); PHOSPHORUS LEVEL 2.2 MG/DL (2.5-4.9); POTASSIUM SERUM 3.9 MEQ/L (3.5-5.1); TOTAL PROTEIN 6.2 GM/DL (6.4-8.2)
[2017-02-02] MEDS: LEVOTHYROXINE 0.05 MG TAB (50 MCG) PO SCH (06:46)
[2017-02-02] MEDS ORDERED: PROPOFOL 1,000 MG/100 ML VIAL As Ordered ONE (06:57)
[2017-02-02] MEDS: PROPOFOL 1,000 MG in APPROPRIATE DILUENT 1 EA IV SCH ×5 (07:00→23:22)
[2017-02-02] MEDS: FLUTICASONE HFA 220 MCG 12 GM INHALER (FLOVENT) INH SCH ×2 (08:39→19:23)
[2017-02-02] MEDS: CHLORHEXIDINE GLUCONATE 0.12 % 15ML UDC (PERIDEX ORAL RINSE) MT SCH ×2 (08:58→21:06)
[2017-02-02] MEDS: ENOXAPARIN 30 MG/0.3 ML SYR (J1650) SC SCH (08:58)
[2017-02-02] MEDS: PANTOPRAZOLE 40MG INJ (PROTONIX) (C9113) IV SCH (08:58)
[2017-02-02] MEDS: NYSTATIN 100,000 UNITS/GM TOPICAL PWD 15 GM TOP SCH ×2 (08:59→21:06)
--- NOTE | 2017-02-02 10:13 | REP ---
PORTABLE CHEST: AP portable view of the chest is performed. Comparison 02/01/2017 as well as other prior exams. Diffuse bilateral infiltrates have not definitely changed. Endotracheal tube is seen with the tip approximately 3.3 cm above the raphael. Nasogastric tube is seen in the chest but distal aspect is not well visualized and I cannot determine if the distal end is in the stomach. Left arm PICC line is again noted. Signed by Jim Calderon MD 02/02/2017 07:45 P
[2017-02-02] MEDS: NS 1,000 ML IV SCH ×2 (10:27→16:45)
--- NOTE | 2017-02-02 12:14 | REP ---
PORTABLE CHEST: AP portable view of the chest was performed. Comparison same day at 4:40 a.m. There has been placement of a left central venous catheter and the tip is in the superior vena cava. Left arm PICC line remains in place as does an endotracheal tube and nasogastric tube. Diffuse bilateral infiltrates are unchanged. IMPRESSION: Placement of left central venous catheter with tip in the superior vena cava. No pneumothorax. Signed by iJm Calderon MD 02/02/2017 07:47 P
[2017-02-02] MEDS: ACETAMINOPHEN 650 MG SUPP PR PRN (12:19)
[2017-02-02] MEDS: methylPREDNISolone INJ 125 MG/2 ML VIAL (J2930) IV SCH ×2 (12:19→21:06)
[2017-02-02] MEDS ORDERED: NS 500 ML IV ONE (13:30)
[2017-02-02] MEDS: NS 500 ML IV SCH ×2 (16:43→16:45)
[2017-02-02] MEDS: cefTRIAXone SOD 2 GM in D5W MINI-BAG PLUS 50 ML IV SCH (18:36)
[2017-02-03] VITALS (31 sets, daily range): BP systolic 90–118; BP diastolic 42–56; O2SAT 91–96
[2017-02-03] MEDS: MIDAZOLAM INJ 2 MG/2 ML VIAL (J2250) IV PRN ×4 (02:24→06:38)
[2017-02-03] MEDS: PROPOFOL 1,000 MG in APPROPRIATE DILUENT 1 EA IV SCH ×7 (02:24→23:30)
[2017-02-03] MEDS: IPRATROPIUM 0.5MG/ALBUTEROL 2.5MG INH SOL UD 3ML (DUONEB)(J7620) NEB SCH ×6 (03:46→23:51)
[2017-02-03] MEDS: methylPREDNISolone INJ 125 MG/2 ML VIAL (J2930) IV SCH ×3 (04:30→20:05)
[2017-02-03] MEDS: SODIUM CHLORIDE 0.9% INJ 10 ML SYR IV SCH ×2 (05:22→17:53)
[2017-02-03] MEDS: LEVOTHYROXINE 0.05 MG TAB (50 MCG) PO SCH (05:25)
[2017-02-03 05:29] LABS: BASO # 0.1 K/mm3 (0.0-0.2); BASO % 0.4 % (0.0-1.0); EOS % 0.1 % (0.0-3.0); LARGE UNSTAINED CELL # 0.2 K/mm3 (0.0-0.4); LARGE UNSTAINED CELL % 0.9 % (0.0-4.0); LYMPH # 1.1 K/mm3 (1.5-4.5); LYMPH % 6.1 % (24.0-44.0); MEAN CORPUSCULAR HEMOGLOBIN 29.3 pg (27.0-33.0); MEAN CORPUSCULAR VOLUME 94.5 fl (80.0-96.0); MONO # 0.4 K/mm3 (0.0-0.8); MONO % 2.4 % (0.0-5.0); NEUTROPHILS # 14.1 K/mm3 (1.8-7.7); NEUTROPHILS % 90.1 % (36.0-66.0); PLATELET COUNT, AUTOMATED 222 k/mm3 (150-450); RED CELL DISTRIBUTION WIDTH 14.6 % (11.5-14.5); WHITE BLOOD COUNT 15.6 K/mm3 (4.0-10.0)
[2017-02-03] MEDS: MORPHINE 2 MG/ML 1ML SYRINGE IV PRN (05:47)
[2017-02-03 05:57] LABS: CALCIUM LEVEL 6.3 MG/DL (8.8-10.2); CREATININE FOR GFR 1.49 MG/DL (0.55-1.02); GLOMERULAR FILTRATION RATE 37.7 (>45); PHOSPHORUS LEVEL 3.2 MG/DL (2.5-4.9)
[2017-02-03 05:58] LABS: ALBUMIN 1.7 GM/DL (3.2-5.2); ALBUMIN/GLOBULIN RATIO 0.33 (1.00-1.93); BILIRUBIN,TOTAL 0.3 MG/DL (0.2-1.0); TOTAL PROTEIN 6.9 GM/DL (6.4-8.2)
[2017-02-03 06:09] LABS: POTASSIUM SERUM 5.1 MEQ/L (3.5-5.1)
[2017-02-03 06:14] LABS: ABG BASE EXCESS -2.6 (-2.0-2.0); ABG HCO3 25.3 MEQ/L (22.0-26.0); ABG PARTIAL PRESSURE CO2 59.9 mmHg (35.0-45.0); ABG PARTIAL PRESSURE O2 91.3 mmHg (75.0-100.0); ABG STANDARD HCO3 22.3 MEQ/L (22.0-26.0); ABG TOTAL CO2 27.1 MEQ/L (23.0-31.0)
[2017-02-03 06:15] LABS: ABG pH (ARTERIAL) 7.243 UNITS (7.350-7.450)
[2017-02-03] MEDS: HumaLOG INSULIN (NovoLOG) PER UNIT SC SCH ×2 (06:26→12:00)
[2017-02-03] MEDS: FLUTICASONE HFA 220 MCG 12 GM INHALER (FLOVENT) INH SCH ×2 (07:46→19:27)
[2017-02-03] MEDS: NS 1,000 ML IV SCH ×2 (08:59→22:20)
[2017-02-03] MEDS: NYSTATIN 100,000 UNITS/GM TOPICAL PWD 15 GM TOP SCH ×2 (09:05→20:07)
[2017-02-03] MEDS: CHLORHEXIDINE GLUCONATE 0.12 % 15ML UDC (PERIDEX ORAL RINSE) MT SCH ×2 (09:05→20:07)
[2017-02-03] MEDS: ENOXAPARIN 30 MG/0.3 ML SYR (J1650) SC SCH (09:05)
[2017-02-03] MEDS: PANTOPRAZOLE 40MG INJ (PROTONIX) (C9113) IV SCH (09:05)
--- NOTE | 2017-02-03 10:26 | REP ---
PORTABLE CHEST: AP portable view of the chest is performed and compared to prior study of 02/02/2017. Endotracheal tube appears unchanged in position. Nasogastric tube is seen traversing into the stomach. Left arm PICC line and central venous catheter are again noted. Diffuse bilateral infiltrates appear essentially unchanged. IMPRESSION: Stable exam. Signed by Jim Calderon MD 02/03/2017 07:53 P
--- NOTE | 2017-02-03 10:36 | CCN ---
DATE: 02/02/2017 NOTE: Ms. Klein remains critically ill with acute respiratory distress syndrome (ARDS). Over the course of last evening, she had some difficulty with synchronicity with the ventilator. She required repeated dosages of Versed. It was thought at one point that she might do better on pressure control, although when I changed over to that modality this morning her tidal volumes were 450-475, which is outside of the acceptable range for the lung protective low tidal strategy for ARDS. She had been able to be weaned off Levophed by 4:00 a.m. and had a reasonably good blood pressure so propofol was started, which she is tolerating well. After sedation, multiple mechanical ventilation manipulations were made at bedside and, as of this time, she appears to do best on PRVC. She had low urine output for a period of time last evening which responded to a fluid bolus and the starting of IV maintenance fluid. She was not tolerating tube feeds of any significance. Today, she has developed a temperature of 100.7. She has minimal secretions. OBJECTIVE/PHYSICAL EXAMINATION: GENERAL: Ms. Klein is intubated and relatively synchronous with the ventilator. She is using abdominal accessory muscles on exhalation and has suprasternal retractions on inhalation. She is diaphoretic. VITAL SIGNS: Temperature when I initially saw her was 98.9 and is now 100.7. Pulse has typically been in the 110s to 120s. Her current blood pressure is 102/55 with a mean arterial pressure (MAP) of 71. SpO2 has ranged from 88% to 90% on an FiO2 of 0.6. HEENT: Anicteric. Pupils 3 mm and reactive. Nares: Patent bilaterally, moist mucosa. Oropharynx: Endotracheal (ET) tube and orogastric (OG) tube in place with mildly dry mucosa. NECK: Supple. Without appreciable jugular venous distention (JVD) on a very difficult exam because of body habitus. Trachea is midline. No stridor. LYMPHS: Without cervical or supraclavicular lymphadenopathy. LUNGS: Symmetric excursion, fair to mildly diminished air entry. Again, there is predominantly left sided wheezing. There is scattered rhonchi. No significant crackles. Prolonged expiratory phase with abdominal muscle usage on exhalation. CARDIOVASCULAR: Tachycardia, regular rhythm, normal S1, S2. No murmur, rub, or gallop appreciated. ABDOMEN: Positive bowel sounds, soft, nondistended. No hepatosplenomegaly appreciated and difficult to examine. EXTREMITIES: Warm and well perfused, without clubbing, cyanosis, or significant edema. Palpable pedal pulses bilaterally. LABORATORY DATA: CBC from this morning showed a hemoglobin of 9.6, hematocrit 30.8, platelet count 220,000, white blood cell count 11,800, with a differential of 83% neutrophils, 10% lymphocytes and 3% monocytes. Chemistries showed sodium of 143, potassium 3.9, chloride 107, bicarbonate 25, anion gap 11, BUN 37, creatinine 1.4, glucose 150, calcium 6.1, phosphorus 2.2, total bilirubin 0.4, AST 38, ALT 12, alkaline phosphatase 85, LDH 519, CK 221, total protein 6.2, albumin 1.6. Repeat CK at noon was 298 with a CK-MB of 2.6 and a troponin I less than 0.2. Arterial blood gas this morning on PRVC with a rate of 20 and a PEEP of 12 with an FiO2 of 0.6 was 7.33/49/67 with a measured saturation of 92% and a base excess of -1.3. Yesterdays ins and outs were 2338 in and 1278 making her positive 1311. Thus far today, 1058 in and 400 out making her positive 658. Weight 117.6. I reviewed her chest x-ray as well as the report from earlier today. That x-ray showed normal appearing cardiac silhouette and normal mediastinal shadows. There remained diffuse alveolar and interstitial infiltrates that are not significantly changed compared to examination from yesterday. Endotracheal tube is in good position. IMPRESSION: 1. Acute respiratory distress syndrome felt secondary to Streptococcus pyogenes sepsis. 2. Streptococcus pyogenes sepsis / SIRS. 3. Acute and chronic renal failure, improving. 4. Chronic obstructive pulmonary disease, on bronchodilators and inhaled corticosteroids. I was able to clarify with one of her daughters that she can only walk 20-30 feet before having to stop because of dyspnea. While there may be multiple reasons for her dyspnea, I suspect that she has pretty significant lung disease and this is also consistent with what is being seen with mechanical ventilation. 5. Diabetes mellitus, on sliding-scale insulin. 6. Infectious disease, on ceftriaxone, day 6. 7. Deep vein thrombosis and stress ulcer prophylaxis in place. 8. Nutrition, only tolerating tube feeds at 25 mL an hour at the present time. RECOMMENDATIONS: 1. Will continue to use propofol for sedation. I am very reticent to use the Versed drip unless absolutely necessary as I suspect that she will require a significant amount of benzodiazepine and then, if she survives this illness, she will have increased risk for difficulties because of the time that will be needed for this drug to be metabolized. I would rather try her on propofol and temper it with Levophed if necessary. At the present time, she is tolerating propofol without any vasopressors. 2. At the present time, will continue on PRVC. Will need to continue to reassess her throughout the day as the best mode for her may change. However, I feel the most important factor is lung protective strategy with low tidal volumes. For her, her tidal volume should be less than 400 and closer to 350. 3. Given the severity of her COPD and has a prolonged expiratory phase, wheezing, significant accessory muscle usage and diaphoresis, will start corticosteroids as she appears to have a COPD exacerbation in addition to other difficulties. I recognize the risk in using systemic corticosteroids, but I feel the benefits outweigh the risks. 4. Will continue tube feeds at the present rate of 25 mL/hr as I feel that she should at least have "dribble feeds". Hopefully in the near future, we will be able to increase the amount that she tolerates. If not, we will need to consider TPN. 5. Continue with ceftriaxone. 6. Will discontinue the morphine drip and decreased the versed drip to a maximum of 2ml/hour. Prns will be used if that is not sufficient sedation. 7. Her daughter who is present was updated on the above. PROGNOSIS: Guarded. CRITICAL CARE TIME: 90 minutes, not including procedure time. MTDD
[2017-02-03 12:24] LABS: ABG BASE EXCESS -3.1 (-2.0-2.0); ABG HCO3 23.9 MEQ/L (22.0-26.0); ABG PARTIAL PRESSURE CO2 52.4 mmHg (35.0-45.0); ABG PARTIAL PRESSURE O2 71.6 mmHg (75.0-100.0); ABG STANDARD HCO3 21.8 MEQ/L (22.0-26.0); ABG TOTAL CO2 25.5 MEQ/L (23.0-31.0); ABG pH (ARTERIAL) 7.277 UNITS (7.350-7.450)
[2017-02-03] MEDS ORDERED: INSULIN IV RATE CHANGE DOCUMENTATION ML/HR XX SCH (12:45)
[2017-02-03] MEDS ORDERED: INSULIN HUMAN REGULAR 100 UNITS in NS 99 ML IV SCH (14:00)
[2017-02-03] MEDS: INSULIN HUMAN REGULAR 100 UNITS in NS 99 ML IV SCH (15:00)
[2017-02-03] MEDS: cefTRIAXone SOD 2 GM in D5W MINI-BAG PLUS 50 ML IV SCH (17:53)
[2017-02-03 18:08] LABS: CALCIUM LEVEL 6.3 MG/DL (8.8-10.2); CREATININE FOR GFR 1.56 MG/DL (0.55-1.02); GLOMERULAR FILTRATION RATE 35.8 (>45); MAGNESIUM LEVEL 2.6 MG/DL (1.8-2.4); POTASSIUM SERUM 4.8 MEQ/L (3.5-5.1)
[2017-02-03] MEDS: INSULIN IV RATE CHANGE DOCUMENTATION ML/HR XX SCH ×3 (18:14→22:26)
[2017-02-03] MEDS: NS 500 ML IV SCH ×2 (18:16)
--- NOTE | 2017-02-03 23:31 | CCN ---
DATE: 02/03/2017 NOTE: Ms. Klein remains critically ill with acute respiratory distress syndrome (ARDS) requiring mechanical ventilation. Her oxygenation needs have remained essentially unchanged. However, she has had worsened ventilation. She is not tolerating tube feeds. She has remained off vasopressors. She no longer has abdominal accessory muscle usage, suprasternal retractions,diaphoresis nor wheezes on examination after being started on Solu-Medrol. OBJECTIVE: PHYSICAL EXAMINATION: GENERAL: Ms. Klein is lying in bed, relatively synchronous with the ventilator (after being changed to pressure trigger). VITAL SIGNS: Temperature 99.8 with a maximum temperature (Tmax) of 100.8, heart rate 107, respiratory rate 32, blood pressure 100/51 with a mean arterial pressure (MAP) of 67, SpO2 96% on FiO2 of 0.6. HEENT: Anicteric, pupils 2-3 mm and reactive. Nares: Patent bilaterally with moist mucosa. Oropharynx: Endotracheal (ET) tube and orogastric (OG) tube in place. NECK: Supple, without thyromegaly or masses. Trachea is midline. LYMPHATICS: Without cervical or supraclavicular lymphadenopathy. LUNGS: Symmetric excursion. Mildly diminished but improved air entry. No wheeze, rhonchi, or significant crackle. Prolonged expiratory phase. CARDIOVASCULAR: Tachycardiac, regular rhythm. Normal S1, S2. No murmur, rub, or gallop appreciated. ABDOMEN: Positive bowel sounds. Soft, nondistended. No hepatosplenomegaly on difficult examination based on her body habitus. EXTREMITIES: Palpable pedal pulses bilaterally without clubbing or cyanosis. Increased edema particularly in her hands. LABORATORY DATA: CBC from this morning showed a hemoglobin of 9.0, hematocrit 28.9, platelet count 222,000, white blood cell count 15,600 with a differential of 90% neutrophils, 6% lymphocytes, 2% monocytes. Chemistries showed sodium 142, potassium 5.1, chloride 109, bicarbonate 26, anion gap 7, BUN 44, creatinine 1.49, glucose 235, calcium 6.3, phosphorus 3.2, total bilirubin 0.3, AST 49, ALT 11, alkaline phosphatase 84, LDH 582, CK 525, total protein 6.9, albumin 1.7. Yesterday's intake and output (I and O) showed 3976 in and 795 out, making her positive 3181. Thus far today, she has had 962 in and 445 out, making her positive 517. Weight 120.9 kg. Arterial blood gas on pressure-regulated volume control (PRVC) with a tidal volume of 350, rate of 28, PEEP of 12, and FiO2 of 0.6 was 7.24/60/91 with a measured saturation of 97% with a base excess of -2.6. I reviewed her chest x-ray as well as the report from earlier today. That x-ray showed the endotracheal tube to be in good position. There remain bilateral infiltrates that are essentially unchanged. The diaphragms remain sharp bilaterally. IMPRESSION: 1. Acute respiratory distress syndrome, felt secondary to Streptococcus pyogenes sepsis. 2. Acidemia, mixed. 3. Streptococcus pyogenes sepsis / SIRS, resolving. 4. Acute on chronic renal failure. 5. Chronic obstructive pulmonary disease (COPD) with probable exacerbation. On bronchodilators, inhaled corticosteroids, and systemic corticosteroids. 6. Diabetes mellitus. On sliding scale insulin. 7. Infectious disease. On ceftriaxone, day #7. 8. Deep venous thrombosis (DVT) and stress ulcer prophylaxis in place. 9. Nutrition. Tolerated up to 50 mL/hour but then had to be put on hold. RECOMMENDATIONS: 1. While permissive hypercapnia is acceptable, I would like to see her pH closer to at least 7.26 and, therefore, will adjust her ventilator. She will increase her tidal volume to 380, which is between 6 and 7 mL/kg of predicted body weight. Will also decrease her PEEP by 2, as her oxygenation has improved. 2. Will start on insulin drip. 3. We will recheck potassium later today. Suspect the increase is secondary to the acidemia. 4. Will slowly reintroduce tube feeds. If she does not start tolerating them in the next 24-48 hours, will need to consider total parenteral nutrition (TPN). 5. We will continue to wean oxygen. I prefer not to further decrease the PEEP until we are on an FiO2 of 0.4. ADDENDUM: With the above ventilator changes, her repeat arterial blood gas was 7.28/52/72 with a measured saturation of 93% and a base excess of -3.1. Her plateau pressures on these settings range from 24 to 27. PROGNOSIS: Guarded. CRITICAL CARE TIME: 50 minutes, not including procedure time. Edited: vikki 02/03/2017 1979 [email or web address]
[2017-02-04] VITALS (28 sets, daily range): BP systolic 108–156; BP diastolic 46–70; O2SAT 91–93
[2017-02-04] MEDS: PROPOFOL 1,000 MG in APPROPRIATE DILUENT 1 EA IV SCH ×2 (03:13→07:02)
[2017-02-04] MEDS: methylPREDNISolone INJ 125 MG/2 ML VIAL (J2930) IV SCH ×3 (03:13→19:52)
[2017-02-04] MEDS: IPRATROPIUM 0.5MG/ALBUTEROL 2.5MG INH SOL UD 3ML (DUONEB)(J7620) NEB SCH ×6 (03:53→23:05)
--- NOTE | 2017-02-04 05:19 | RO ---
DATE OF PROCEDURE: 02/02/2017 PREPROCEDURE DIAGNOSIS: Need for antibiotics and need for vascular access. POSTPROCEDURE DIAGNOSIS: Need for antibiotics and need for vascular access. PROCEDURE: Insertion of left subclavian central line. SURGEON: Jose M Shrestha MD [facility] SUPERVISOR: ANESTHESIA: DESCRIPTION OF PROCEDURE: Patient was prepped and draped in the usual sterile fashion and the left interventricular fossa was infiltrated with 1% xylocaine. The subclavian vein was found on the second pass. The vein was entered without difficulty. The tract was dilated and a triple lumen catheter was placed by Seldinger technique. The ports were aspirated and flushed without difficulty. The catheter was secured to the chest wall with two #3-0 silk sutures. The patient tolerated the procedure well and a chest x-ray is pending. [facility]
[2017-02-04] MEDS: LEVOTHYROXINE 0.05 MG TAB (50 MCG) PO SCH (05:21)
[2017-02-04] MEDS: SODIUM CHLORIDE 0.9% INJ 10 ML SYR IV SCH ×2 (05:22→18:00)
[2017-02-04 05:57] LABS: MEAN CORPUSCULAR HEMOGLOBIN 29.4 pg (27.0-33.0); RED CELL DISTRIBUTION WIDTH 14.8 % (11.5-14.5); WHITE BLOOD COUNT 18.3 K/mm3 (4.0-10.0)
[2017-02-04 05:59] LABS: ABG pH (ARTERIAL) 7.368 UNITS (7.350-7.450)
[2017-02-04 06:02] LABS: ABG BASE EXCESS -0.6 (-2.0-2.0); ABG HCO3 24.8 MEQ/L (22.0-26.0); ABG PARTIAL PRESSURE CO2 44.1 mmHg (35.0-45.0); ABG PARTIAL PRESSURE O2 79.2 mmHg (75.0-100.0); ABG TOTAL CO2 26.2 MEQ/L (23.0-31.0)
[2017-02-04] MEDS: INSULIN HUMAN REGULAR 100 UNITS in NS 99 ML IV SCH ×2 (06:02→17:53)
[2017-02-04 06:37] LABS: ALBUMIN 1.8 GM/DL (3.2-5.2); ALBUMIN/GLOBULIN RATIO 0.31 (1.00-1.93); BILIRUBIN,TOTAL 0.2 MG/DL (0.2-1.0); CALCIUM LEVEL 6.7 MG/DL (8.8-10.2); CREATININE FOR GFR 1.39 MG/DL (0.55-1.02); GLOMERULAR FILTRATION RATE 40.9 (>45); MAGNESIUM LEVEL 2.7 MG/DL (1.8-2.4); PHOSPHORUS LEVEL 2.3 MG/DL (2.5-4.9); POTASSIUM SERUM 4.4 MEQ/L (3.5-5.1); TOTAL PROTEIN 7.6 GM/DL (6.4-8.2)
[2017-02-04] MEDS: FLUTICASONE HFA 220 MCG 12 GM INHALER (FLOVENT) INH SCH ×2 (07:59→19:42)
[2017-02-04] MEDS: CHLORHEXIDINE GLUCONATE 0.12 % 15ML UDC (PERIDEX ORAL RINSE) MT SCH ×2 (08:56→19:52)
[2017-02-04] MEDS: ENOXAPARIN 30 MG/0.3 ML SYR (J1650) SC SCH (08:57)
[2017-02-04] MEDS: PANTOPRAZOLE 40MG INJ (PROTONIX) (C9113) IV SCH (08:57)
[2017-02-04] MEDS: NYSTATIN 100,000 UNITS/GM TOPICAL PWD 15 GM TOP SCH ×2 (08:57→19:52)
--- NOTE | 2017-02-04 09:33 | REP ---
PORTABLE CHEST: Single view. HISTORY: ARDS COMPARISON STUDY: February 03, 2017 at 04:45 a.m. FINDINGS: Endotracheal tube is in good position at the level of the proximal clavicles. An NG tube enters left upper quadrant of the abdomen. EKG electrodes and oxygen delivery tubing are seen. There is a diffuse mixed alveolar and interstitial pulmonary edema pattern in the lung calderón, which is essentially unchanged from the previous day's radiograph. No pleural effusion is seen. No new infiltrate is noted. Cardiomediastinal silhouette is unchanged. IMPRESSION: Diffuse advanced alveolar/interstitial edema pattern. No change from the previous day. Signed by Roney Dorsey MD 02/04/2017 12:17 P
[2017-02-04] MEDS ORDERED: FUROSEMIDE 40 MG/4 ML VIAL (J1940) IV ONE (13:00)
--- NOTE | 2017-02-04 13:11 | CCN ---
DATE: 02/04/2017 NOTE: Ms. Klein remains critically ill with acute hypoxemic respiratory failure secondary to acute respiratory distress syndrome (ARDS) which has led to mechanical ventilation. She is on the lung protective strategy with a tidal volume between 6 and 7 mL/kg of predicted body weight. Her etiology of her ARDS is thought to be Streptococcus pyogenes sepsis / SIRS. She also appears to have chronic obstructive pulmonary disease (COPD) exacerbation. Clinically, she appears to be doing better on systemic corticosteroid with less accessory muscle usage. Minimal secretions. She has remained off vasopressors. No new events overnight. She is now tolerating tube feeds at the goal of 75 mL/hr. She has been on a sedation holiday now for over 2 hours and appears comfortable, though she is not following any commands. OBJECTIVE/PHYSICAL EXAMINATION: GENERAL: Ms. Klein is intubated and relatively synchronous with the ventilator. VITAL SIGNS: Temperature 100.8 with a maximum temperature maximum temperature (Tmax) of 101.3. Respiratory rate 31, blood pressure 124/60 with a mean arterial pressure (MAP) of 81 with NIBP and 132/50 with a MAP of 70 on the arterial line. SpO2 91% on a FiO2 of 0.4. HEENT: Anicteric, pupils 4-5 mm and reactive. Nares: Patent bilaterally with moist mucosa. Oropharynx: Endotracheal (ET) tube and orogastric (OG) tube in place. Moist mucosa. NECK: Supple, without apparent jugular venous distention (JVD) and a difficult exam. Without thyromegaly or masses. Trachea is midline. LYMPHATICS: Without cervical or supraclavicular lymphadenopathy. LUNGS: Symmetric excursion, fair air entry, bibasilar fine crackles heard posteriorly. No wheeze or significant crackle. Prolonged expiratory phase. No significant accessory muscle usage. She occasionally uses supraclavicular sternal muscles on inspiration. CARDIOVASCULAR: Tachycardic, regular rhythm with a normal S1, S2. No murmur, rub or gallop appreciated. ABDOMEN: Normoactive bowel sounds. Soft, nondistended. No hepatosplenomegaly or masses appreciated. EXTREMITIES: Without clubbing or cyanosis. No significant edema in the lower extremities. She remains with edematous hands. Palpable pedal pulses bilaterally. LABORATORY DATA: CBC from this morning showed a hemoglobin 9.2, hematocrit 29.6 , platelet count 270,000, white blood cell count 18,300. Chemistry showed sodium 143, potassium 4.4, chloride 111, bicarbonate 24, anion gap 8, BUN 59, creatinine 1.4, glucose 128, calcium 6.7, phosphorus 2.3, magnesium 2.7, total bilirubin 0.2, AST 34, ALT 13, alkaline phosphatase 80, LDH 518, CK 242, total protein 7.8, albumin 1.8. Arterial blood gas this morning on pressure regulated volume control (PRVC) with a tidal volume of 380, rate of 28, PEEP of 10 and FiO2 of 0.45 was 7.37/44/79, measured saturation 97% an d a base excess of -0.6. Her plateau pressors are typically around 24. Yesterday's intake and output were 3122.4 in, 860 out, making her positive 2262.4. Thus far today, 139 in and 700 out, making her positive 691. Weight 122.7 kg. I reviewed her chest x-ray as well as the report from earlier today. That x-ray shows the endotracheal tube in good position. The diaphragms are still visible bilaterally. There remain diffuse alveolar/interstitial infiltrates. No significant change compared to the chest x-ray from yesterday. IMPRESSION: 1. Acute hypoxemic respiratory failure secondary to acute respiratory distress syndrome leading to mechanical ventilation. 2. Acute respiratory distress syndrome felt secondary to Streptococcus pyogenes sepsis / SIRS. 3. Streptococcus pyogenes sepsis. 4. Acute on chronic renal failure, improving. 5. Chronic obstructive pulmonary disease with presumed exacerbation, on bronchodilators, inhaled corticosteroids and systemic corticosteroids. 6. Diabetes mellitus, on insulin drip. 7. Infectious disease, on ceftriaxone day #8. 8. Deep venous thrombosis (DVT) and stress ulcer prophylaxis in place. 9. Nutrition, on full tube feeds. COMMENTS: 1. We will continue with the sedation holiday until she shows us that she requires sedation. When she does, I would prefer propofol but at a lower rate. I suspect some of her the difficulties coming out of the sedation holiday today are because of buildup of Versed from her previous drip. 2. We will continue with current antibiotic. 3. We will try to gently start diuresing. 4. We will replace electrolytes as necessary. PROGNOSIS: Guarded. CRITICAL CARE TIME: 40 minutes, not including procedure time. [facility]
[2017-02-04] MEDS ORDERED: POTASSIUM PHOSPHATE INJ 18 MMOL in D5W 250 ML IV ONE (14:00)
[2017-02-04] MEDS: NS 500 ML IV SCH ×2 (15:45→15:46)
[2017-02-04] MEDS: cefTRIAXone SOD 2 GM in D5W MINI-BAG PLUS 50 ML IV SCH (17:51)
[2017-02-04] MEDS: INSULIN IV RATE CHANGE DOCUMENTATION ML/HR XX SCH ×2 (17:59→18:59)
[2017-02-05] VITALS (31 sets, daily range): BP systolic 128–191; BP diastolic 58–84; O2SAT 92
[2017-02-05] MEDS: INSULIN IV RATE CHANGE DOCUMENTATION ML/HR XX SCH ×7 (02:12→23:03)
[2017-02-05] MEDS: INSULIN HUMAN REGULAR 100 UNITS in NS 99 ML IV SCH ×2 (03:11→22:13)
[2017-02-05] MEDS: IPRATROPIUM 0.5MG/ALBUTEROL 2.5MG INH SOL UD 3ML (DUONEB)(J7620) NEB SCH ×6 (03:40→23:22)
[2017-02-05] MEDS: methylPREDNISolone INJ 125 MG/2 ML VIAL (J2930) IV SCH ×3 (04:35→20:50)
[2017-02-05 05:30] LABS: MEAN CORPUSCULAR HEMOGLOBIN 29.8 pg (27.0-33.0); MEAN CORPUSCULAR HGB CONC 32.3 g/dl (32.0-36.5); MEAN CORPUSCULAR VOLUME 92.3 fl (80.0-96.0); RED CELL DISTRIBUTION WIDTH 15.2 % (11.5-14.5); WHITE BLOOD COUNT 15.6 K/mm3 (4.0-10.0)
[2017-02-05 05:37] LABS: ABG HCO3 23.8 MEQ/L (22.0-26.0); ABG PARTIAL PRESSURE CO2 35.2 mmHg (35.0-45.0); ABG PARTIAL PRESSURE O2 68.4 mmHg (75.0-100.0); ABG STANDARD HCO3 24.4 MEQ/L (22.0-26.0); ABG TOTAL CO2 24.8 MEQ/L (23.0-31.0); ABG pH (ARTERIAL) 7.447 UNITS (7.350-7.450)
[2017-02-05 05:50] LABS: ALBUMIN 1.9 GM/DL (3.2-5.2); ALBUMIN/GLOBULIN RATIO 0.33 (1.00-1.93); BILIRUBIN,TOTAL 0.4 MG/DL (0.2-1.0); CALCIUM LEVEL 7.3 MG/DL (8.8-10.2); CREATININE FOR GFR 1.25 MG/DL (0.55-1.02); GLOMERULAR FILTRATION RATE 46.2 (>45); MAGNESIUM LEVEL 2.7 MG/DL (1.8-2.4); PHOSPHORUS LEVEL 3.1 MG/DL (2.5-4.9); POTASSIUM SERUM 4.4 MEQ/L (3.5-5.1); TOTAL PROTEIN 7.7 GM/DL (6.4-8.2)
[2017-02-05] MEDS: SODIUM CHLORIDE 0.9% INJ 10 ML SYR IV SCH ×2 (05:53→17:01)
[2017-02-05] MEDS: LEVOTHYROXINE 0.05 MG TAB (50 MCG) PO SCH (05:53)
[2017-02-05] MEDS: FLUTICASONE HFA 220 MCG 12 GM INHALER (FLOVENT) INH SCH ×2 (07:39→20:23)
--- NOTE | 2017-02-05 08:30 | REP ---
PORTABLE CHEST X-RAY: CLINICAL: ARDS.. COMPARISON: 02/04/2017 FINDINGS: Endotracheal tube approximately 2.5 cm above the raphael. Nasogastric tube courses below the left hemidiaphragm. Left subclavian catheter with tip in the right atrium. Mediastinum and cardiac silhouette are relatively stable. Lung calderón demonstrate significant diffuse bilateral alveolar and interstitial infiltrates, unchanged from prior examination. No pneumothorax. Layering effusions cannot be excluded. Skeletal structures stable. IMPRESSION: Diffuse bilateral infiltrates consistent with ARDS. Signed by Juan Duckworth MD 02/05/2017 09:01 A
[2017-02-05] MEDS: CHLORHEXIDINE GLUCONATE 0.12 % 15ML UDC (PERIDEX ORAL RINSE) MT SCH ×2 (09:42→20:50)
[2017-02-05] MEDS: NYSTATIN 100,000 UNITS/GM TOPICAL PWD 15 GM TOP SCH ×2 (09:42→20:50)
[2017-02-05] MEDS: ENOXAPARIN 30 MG/0.3 ML SYR (J1650) SC SCH (09:42)
[2017-02-05] MEDS: PANTOPRAZOLE 40MG INJ (PROTONIX) (C9113) IV SCH (09:42)
[2017-02-05] MEDS ORDERED: FUROSEMIDE 40 MG/4 ML VIAL (J1940) IV ONE (10:00)
--- NOTE | 2017-02-05 11:00 | CCN ---
DATE OF VISIT: 02/05/2017 Ms. Klein remains critically ill with acute hypoxemic respiratory failure secondary to acute respiratory distress syndrome (ARDS), leading to mechanical ventilation. She remains off sedation (off sedation since 10 a.m. yesterday) with no need for as an needed sedation medication. She is opening her eyes to command this morning but not following any other commands. She remains with minimal secretions although they are starting to increase likely secondary to improved cough and change in ventilator pressures. She is tolerating tube feeds and remains off vasopressors. OBJECTIVE: GENERAL: Ms. Klein is intubated and synchronous with the ventilator. VITAL SIGNS: Temperature 99.2, temperature maximum (T-max) 100.5, blood pressure 150/69 arterial line), heart rate 122, respiratory rate 29, SpO2 91-93% on FiO2 of 0.4. HEENT: Anicteric, pupils 3 mm and reactive. Nares: Patent bilaterally, moist mucosa. Oropharynx: Endotracheal (ET) tube and orogastric (OG) tube in place. NECK: Supple, unable to appreciated jugular venous distention (JVD), without thyromegaly or masses. Trachea is midline. LYMPHATICS: Without cervical or supraclavicular lymphadenopathy. CHEST: Symmetric excursion, good air entry, diffuse rhonchi heard posteriorly. No significant crackles. NormaI inspiration to expiration (I:E). No accessory muscle use or retractions. CARDIOVASCULAR: Tachycardic, regular rhythm, normal S1, S2, no murmur, rub, or gallop appreciated. ABDOMEN: Positive bowel sounds, soft, nondistended, no hepatosplenomegaly or masses appreciated. Difficult examination secondary to body habitus. EXTREMITIES: Warm and well perfused, edema of the upper extremities without clubbing or cyanosis. Palpable pedal pulses bilaterally. LABORATORY DATA: CBC shows a hemoglobin 9.3, hematocrit 28.9, platelet count 280,000, white blood count 15,600. Electrolytes show sodium 147, potassium 4.4, chloride 112, bicarbonate 28, anion gap 6, BUN 69, creatinine 1.25, glucose 126, calcium 7.3, phosphorous 3.1, magnesium 2.7, total bilirubin 0.4, AST 50, ALT 19 , alkaline phosphatase 80, LDH 498, CK 239, albumin 1.9, total protein 7.7. Yesterdays intake and output (I and O) were 2901 in and 2900 making her positive Thus far today, she has 750 in and 910 out making her minus 160. [facility] with a tidal volume of 380, rate 20, and PEEP of 10, was 7.45/35/68 with a measured saturation 93%. Weight 122.9 kg. IMAGING: I reviewed her chest x-ray, as well as her report. X-ray showed normal appearing cardiac silhouette, pulmonary vascular shadows. ET tube in good position, unchanged bilateral alveolar/interstitial infiltrates. She remains with sharp hemidiaphragms. IMPRESSION: 1. Acute respiratory failure secondary to acute respiratory distress syndrome leading to mechanical ventilation. 2. Acute respiratory distress syndrome felt secondary to Staphylococcus pyogenes sepsis / SIRS. 3. Pyogenes sepsis, essentially resolving. 4. Acute on chronic renal insufficiency, improving. 5. Chronic pulmonary obstructive disease with presumed exacerbation and bronchodilators, inhaled corticosteroids and systemic corticosteroids. 6. Diabetes mellitus on insulin drip. 7. Infectious disease, on ceftriaxone day number 9. 8. Deep venous thrombosis (DVT) and stress ulcer prophylaxis placed. 9. Nutrition, on full tube feeds. RECOMMENDATIONS: 1. Will continue to maintain her off sedation until she clinically has an indication for this medication. I would prefer that if that is necessary, that we restart Propofol. 2. Will increase the free water in her tube feeds. 3. Will gently diurese. 4. Will decrease the PEEP and see if she tolerates this change in mean airway pressure. 5. Continue antibiotics. 6. We will continue to replace electrolytes as necessary. PROGNOSIS: Guarded. CRITICAL CARE TIME: 35 minutes on including procedure time. edited: 02/05/2017 1121 eugene FRIAS
[2017-02-05] MEDS: METOCLOPRAMIDE INJ 10MG/2ML VIAL (J2765) IV PRN (12:35)
[2017-02-05] MEDS: PROPOFOL 1,000 MG in APPROPRIATE DILUENT 1 EA IV SCH ×2 (12:52→21:19)
--- NOTE | 2017-02-05 13:47 | REP ---
Clinical: OGT placement. Comparison: 02/05/2017. Findings: Endotracheal tube is approximately 2 cm above the raphael. Orogastric tube courses below the diaphragm. Left PICC line with tip in the SVC. Left subclavian catheter terminates in the brachiocephalic vein. Lung calderón demonstrate diffuse bilateral alveolar and interstitial infiltrates unchanged from prior examination. Impression: Lines and tubes as described above. Diffuse bilateral infiltrates unchanged from prior examination. Signed by Juan Duckworth MD 02/05/2017 01:38 P
[2017-02-05] MEDS: NS 500 ML IV SCH ×2 (15:25)
[2017-02-05] MEDS: cefTRIAXone SOD 2 GM in D5W MINI-BAG PLUS 50 ML IV SCH (17:36)
[2017-02-05] MEDS: METOPROLOL TART 25 MG TABLET PO SCH (19:16)
[2017-02-06] VITALS (22 sets, daily range): BP systolic 124–181; BP diastolic 59–78; O2SAT 93–95
[2017-02-06] MEDS: INSULIN IV RATE CHANGE DOCUMENTATION ML/HR XX SCH ×7 (00:48→22:10)
[2017-02-06] MEDS: methylPREDNISolone INJ 125 MG/2 ML VIAL (J2930) IV SCH ×2 (03:45→20:27)
[2017-02-06] MEDS: PROPOFOL 1,000 MG in APPROPRIATE DILUENT 1 EA IV SCH (03:46)
[2017-02-06] MEDS: IPRATROPIUM 0.5MG/ALBUTEROL 2.5MG INH SOL UD 3ML (DUONEB)(J7620) NEB SCH ×5 (04:00→21:16)
[2017-02-06] MEDS: SODIUM CHLORIDE 0.9% INJ 10 ML SYR IV SCH ×2 (05:08→17:56)
[2017-02-06] MEDS: METOPROLOL TART 25 MG TABLET PO SCH ×5 (05:08→23:45)
[2017-02-06] MEDS: LEVOTHYROXINE 0.05 MG TAB (50 MCG) PO SCH (05:08)
[2017-02-06 05:36] LABS: MEAN CORPUSCULAR HEMOGLOBIN 29.4 pg (27.0-33.0); MEAN CORPUSCULAR HGB CONC 31.3 g/dl (32.0-36.5); MEAN CORPUSCULAR VOLUME 93.7 fl (80.0-96.0); RED CELL DISTRIBUTION WIDTH 15.2 % (11.5-14.5); WHITE BLOOD COUNT 17.5 K/mm3 (4.0-10.0)
[2017-02-06 05:52] LABS: ABG BASE EXCESS 1.1 (-2.0-2.0); ABG HCO3 25.4 MEQ/L (22.0-26.0); ABG PARTIAL PRESSURE O2 81.3 mmHg (75.0-100.0); ABG STANDARD HCO3 25.4 MEQ/L (22.0-26.0); ABG TOTAL CO2 26.6 MEQ/L (23.0-31.0); ABG pH (ARTERIAL) 7.431 UNITS (7.350-7.450)
[2017-02-06 05:57] LABS: ALBUMIN 2.1 GM/DL (3.2-5.2); ALBUMIN/GLOBULIN RATIO 0.39 (1.00-1.93); BILIRUBIN,TOTAL 0.4 MG/DL (0.2-1.0); CALCIUM LEVEL 7.4 MG/DL (8.8-10.2); CREATININE FOR GFR 1.01 MG/DL (0.55-1.02); GLOMERULAR FILTRATION RATE 59.1 (>45); MAGNESIUM LEVEL 2.7 MG/DL (1.8-2.4); PHOSPHORUS LEVEL 3.3 MG/DL (2.5-4.9); POTASSIUM SERUM 4.9 MEQ/L (3.5-5.1); TOTAL PROTEIN 7.5 GM/DL (6.4-8.2)
--- NOTE | 2017-02-06 07:42 | REP ---
Clinical: ARDS. Comparison: 02/05/2017. Findings: Endotracheal tube approximately 2.8 cm above the raphael. Nasogastric tube courses below left hemidiaphragm. Left-sided PICC line with tip in the SVC. Left subclavian catheter with tip in the SVC. Diffuse bilateral infiltrates unchanged from prior examination. Cannot exclude small layering effusions. No obvious pneumothorax. Skeletal structures stable. Impression: No change from prior examination. Diffuse infiltrates again noted. Signed by Juan Duckworth MD 02/06/2017 07:34 A
[2017-02-06] MEDS: FLUTICASONE HFA 220 MCG 12 GM INHALER (FLOVENT) INH SCH ×2 (07:57→21:16)
[2017-02-06] MEDS: CHLORHEXIDINE GLUCONATE 0.12 % 15ML UDC (PERIDEX ORAL RINSE) MT SCH ×2 (08:08→20:27)
[2017-02-06] MEDS: PANTOPRAZOLE 40MG INJ (PROTONIX) (C9113) IV SCH (08:08)
[2017-02-06] MEDS: NYSTATIN 100,000 UNITS/GM TOPICAL PWD 15 GM TOP SCH ×2 (08:08→20:27)
[2017-02-06] MEDS ORDERED: FUROSEMIDE 40 MG/4 ML VIAL (J1940) IV SCH (09:00)
[2017-02-06] MEDS: ENOXAPARIN 30 MG/0.3 ML SYR (J1650) SC SCH (10:06)
[2017-02-06] MEDS: INSULIN HUMAN REGULAR 100 UNITS in NS 99 ML IV SCH (10:40)
[2017-02-06 12:16] LABS: ABG BASE EXCESS 1.9 (-2.0-2.0); ABG HCO3 24.7 MEQ/L (22.0-26.0); ABG PARTIAL PRESSURE CO2 32.6 mmHg (35.0-45.0); ABG PARTIAL PRESSURE O2 68.5 mmHg (75.0-100.0); ABG STANDARD HCO3 26.1 MEQ/L (22.0-26.0); ABG TOTAL CO2 25.7 MEQ/L (23.0-31.0); ABG pH (ARTERIAL) 7.498 UNITS (7.350-7.450)
--- NOTE | 2017-02-06 12:21 | CCN ---
DATE: 02/06/2017 Ms. Klein remains critically ill with acute respiratory failure leading to mechanical ventilation. The failure was secondary to acute respiratory distress syndrome secondary to Staphylococcus pyogenes / SIRS. Yesterday, after she had been off sedation for probably close to 30 hours, she did have one episode of emesis after they turned her. She did not have any significant residual from her tube feeding; however, she was coughing and perhaps biting on the tube a little so sedation was restarted. Chest x-ray confirmed appropriate placement of the orogastric tube. She continues to tolerate full tube feeds. She remains off vasopressors. She has a good cough. Minimal thin secretions. OBJECTIVE: PHYSICAL EXAMINATION: VITAL SIGNS: Temperature 98.5 with a maximum temperature (t-max) of 99.3, blood pressure 169/72 with a mean arterial pressure of 104. Respiratory rate 28, pulse 97, SpO2 96% on FiO2 of 0.4. GENERAL: Anicteric. Pupils are reactive. Nares patent bilaterally with moist mucosa. Oropharynx: ET tube and OG tube in place with moist mucosa. NECK: Supple. Trachea is midline. LUNGS: Symmetric excursion. Good air entry. No significant rhonchi or wheezes. A few bibasilar crackles. Normal I:E. No accessory muscle usage or retractions. CARDIOVASCULAR: Regular rate and rhythm with a normal S1, S2. No murmur, rub or gallop appreciated. ABDOMEN: Positive bowel sounds. Soft, nondistended. No hepatosplenomegaly. Examination limited by body habitus. EXTREMITIES: Decreased peripheral edema, particularly in the upper extremities. Without clubbing or cyanosis. Palpable pedal pulses bilaterally. LABORATORY DATA: CBC shows a hemoglobin of 10.3, hematocrit 32.9, platelet count 302,000, white blood cell count 17,500. Chemistries show a sodium of 147, potassium 4.9, chloride 112, bicarbonate 28, anion gap 7, BUN 65, creatinine 1.01, glucose 112, calcium 7.4, phosphorous 3.3, magnesium 2.7, total bilirubin 0.4, AST 69, ALT 35, alkaline phosphatase 89, LDH 516, total CK 320, total protein 7.5, albumin 2.1. Yesterday input and output was 2519 in and 3885 out, making her negative 1366. Thus far today, she is 1118 in and 1190 out, making her negative 72. Since admission, [place] [address] [place] [address], making her positive 2419. Her weight is 120.3 kg. I reviewed her chest x-ray, as well as the report from earlier today. The x-ray showed normal appearing cardiac silhouette, pulmonary vascular shadows. Both hemidiaphragms remain visible. There are diffuse mixed alveolar interstitial infiltrates that are essentially unchanged. The endotracheal tube is in good position. IMPRESSION: 1. Acute respiratory failure on acute hypoxemic respiratory failure leading to mechanical ventilation secondary to ARDS. 2. ARDS felt secondary to Staphylococcus pyogenes sepsis / SIRS. 3. Staphylococcus pyogenes sepsis / SIRS, essentially resolved. 4. Chronic obstructive pulmonary disease (COPD) with presumed exacerbation, on bronchodilators, inhaled corticosteroids and systemic corticosteroids. 5. Diabetes mellitus, on insulin drip. 6. Infectious disease, on ceftriaxone, day #10. 7. Deep vein thrombosis (DVT) and stress ulcer prophylaxis have been placed. 8. Nutrition. On full tube feeds. RECOMMENDATIONS: 1. We put her propofol on hold to see how she clinically responds and to see if we can go further in terms of assessing her for extubation. 2. We will again gently diurese. 3. We will further increase her free water in her tube feeds. 4. At bedside, I decreased her PEEP to 5 and she did well with that change with no significant change in oxygenation. 5. She is now on a pressure support of 5/5, and we will reassess her later this morning when she is more awake to see if we could proceed with extubation. 6. Continue antibiotics. 7. We will decrease the Solu-Medrol dosage. 8. We will discontinue the arterial line at this time. PROGNOSIS: Guarded. Critical care time was 40 minutes, not including procedure time. MTDD
[2017-02-06] MEDS: NS 500 ML IV SCH ×2 (15:25)
[2017-02-06] MEDS: cefTRIAXone SOD 2 GM in D5W MINI-BAG PLUS 50 ML IV SCH (17:55)
[2017-02-07] VITALS (18 sets, daily range): BP systolic 161–184; BP diastolic 70–81; O2SAT 94–96
[2017-02-07] MEDS: INSULIN IV RATE CHANGE DOCUMENTATION ML/HR XX SCH ×5 (00:21→07:59)
[2017-02-07] MEDS: IPRATROPIUM 0.5MG/ALBUTEROL 2.5MG INH SOL UD 3ML (DUONEB)(J7620) NEB SCH ×6 (00:32→20:00)
[2017-02-07] MEDS: METOPROLOL TART 25 MG TABLET PO SCH ×4 (00:41→17:50)
[2017-02-07] MEDS: INSULIN HUMAN REGULAR 100 UNITS in NS 99 ML IV SCH (05:37)
[2017-02-07] MEDS: SODIUM CHLORIDE 0.9% INJ 10 ML SYR IV SCH ×2 (05:37→17:52)
[2017-02-07] MEDS: LEVOTHYROXINE 0.05 MG TAB (50 MCG) PO SCH (05:38)
[2017-02-07 05:59] LABS: MEAN CORPUSCULAR HEMOGLOBIN 29.5 pg (27.0-33.0); MEAN CORPUSCULAR VOLUME 92.2 fl (80.0-96.0); RED CELL DISTRIBUTION WIDTH 15.2 % (11.5-14.5); WHITE BLOOD COUNT 12.5 K/mm3 (4.0-10.0)
[2017-02-07 06:14] LABS: ABG PARTIAL PRESSURE O2 93.4 mmHg (75.0-100.0)
[2017-02-07 06:15] LABS: ABG BASE EXCESS 4.8 (-2.0-2.0); ABG HCO3 28.8 MEQ/L (22.0-26.0); ABG PARTIAL PRESSURE CO2 40.7 mmHg (35.0-45.0); ABG STANDARD HCO3 28.7 MEQ/L (22.0-26.0); ABG TOTAL CO2 30.1 MEQ/L (23.0-31.0); ABG pH (ARTERIAL) 7.468 UNITS (7.350-7.450)
[2017-02-07 06:18] LABS: ALBUMIN 1.9 GM/DL (3.2-5.2); ALBUMIN/GLOBULIN RATIO 0.34 (1.00-1.93); BILIRUBIN,TOTAL 0.4 MG/DL (0.2-1.0); CALCIUM LEVEL 8.2 MG/DL (8.8-10.2); CREATININE FOR GFR 1.01 MG/DL (0.55-1.02); GLOMERULAR FILTRATION RATE 59.1 (>45); PHOSPHORUS LEVEL 3.7 MG/DL (2.5-4.9); POTASSIUM SERUM 4.8 MEQ/L (3.5-5.1); TOTAL PROTEIN 7.5 GM/DL (6.4-8.2)
[2017-02-07] MEDS: methylPREDNISolone INJ 125 MG/2 ML VIAL (J2930) IV SCH (07:30)
[2017-02-07] MEDS: PANTOPRAZOLE 40MG INJ (PROTONIX) (C9113) IV SCH (08:00)
[2017-02-07] MEDS: CHLORHEXIDINE GLUCONATE 0.12 % 15ML UDC (PERIDEX ORAL RINSE) MT SCH (08:00)
[2017-02-07] MEDS: NYSTATIN 100,000 UNITS/GM TOPICAL PWD 15 GM TOP SCH ×2 (08:00→20:25)
[2017-02-07] MEDS: ENOXAPARIN 30 MG/0.3 ML SYR (J1650) SC SCH (08:00)
--- NOTE | 2017-02-07 08:48 | REP ---
Portable chest, 02/07/2017, 06:46 a.m., single frontal view: Comparison is 02/06/2017. Diffuse bilateral anterior stitch line of infiltrates are again identified, unchanged, compatible with the clinical history of ARDS. The endotracheal tube, left subclavian central venous catheter and left upper extremity PICC line remain in satisfactory locations, unchanged. The nasogastric tube tip is obscured in the upper abdomen by under penetrated radiographic technique. Signed by Jim Del Toro MD 02/07/2017 08:40 A
[2017-02-07] MEDS: FLUTICASONE HFA 220 MCG 12 GM INHALER (FLOVENT) INH SCH (09:26)
[2017-02-07] MEDS: MORPHINE 2 MG/ML 1ML SYRINGE IV PRN ×3 (10:58→21:07)
[2017-02-07] MEDS: HumaLOG INSULIN (NovoLOG) PER UNIT SC SCH ×3 (12:31→23:42)
--- NOTE | 2017-02-07 13:55 | CCN ---
DATE: 02/07/2017 Ms. Klein remains critically ill with acute hypoxemic respiratory failure leading to mechanical ventilation secondary to acute respiratory distress syndrome (ARDS). Overnight, she was kept off of sedation. In fact, she has been off sedation for over 24 hours. She was on pressure support with a PS of 5 and PEEP of 5 overnight and did well. She has a good cough. Minimal secretions. She is following commands, though she is very weak. She can squeeze our hands but cannot lift her arms off of the bed. She can wiggle her feet but not her toes and slightly lift her lower extremities up. She indicates that she is getting enough air and she indicates she feels she can breath without the tube. Tube feeds have been held since 6-o'clock this morning. She has remained off vasopressors. OBJECTIVE: Physical Examination: General: Ms. Klein initially was intubated and synchronous with the ventilator. Later she had a full face mask on and appeared comfortable with the device. Vital Signs: Temperature 99.1 with a T-max of 100.7, blood pressure 168/71 with a MAP of 103, pulse 90, respiratory rate 20, SpO2 94% and FiO2 of 0.4. HEENT: Anicteric. Pupils equal, round, and reactive to light and accommodation. Nares: Patent bilaterally. Moist mucosa. Oropharynx: ET tube and OG tube in place. Neck: Supple . Without thyromegaly or masses. Trachea is midline. Lymph: Without cervical or supraclavicular lymph adenopathy. Lungs: Symmetric excursion. Fair air entry. No wheeze, rhonchi or significant crackle in tidal excursion. Normal I/E. No accessory muscle use or retractions. Cardiovascular: Regular rate and rhythm with a normal S1, S2, no murmur, rub or gallop appreciated. Abdomen: Positive bowel sounds, soft, nondistended. She does not indicate any tenderness. Extremities: Continued edema but decreased in the upper extremities and her hands. No lower extremity edema. Palpable pedal pulses without cyanosis or clubbing. Venostasis changes in the lower extremities bilaterally. Laboratory Data: CBC from earlier today showed a hemoglobin of 10, hematocrit 31.2, platelet count 246,000, white blood cell count 12,500. Chemistries showed a sodium 149, potassium 4.8, chloride 113, bicarbonate 30, anion gap 6, BUN 64, creatinine 1.0, glucose 151, calcium 8.2, phosphorus 3.7, total bilirubin 0.4, AST 105, ALT 64, alkaline phosphatase 91, LDH 49, CK 39, total protein 7.5, albumin 1.9. Arterial blood gas this morning on a pressure support of 5, PEEP of 5, an FiO2 of 0.4 was 7.47,/41/93 with a measured saturation of 97.4 and a base excess of 4.8. I reviewed her chest x-ray as well as her report. That x-ray showed normal appearing cardiac silhouette and pulmonary vascular shadow. Normal appearing mediastinal region. Endotracheal tube is in good position. There remain diffuse mixed interstitial alveolar infiltrates that are unchanged. Yesterdays Input and output was 2307 in and 4235 out making her negative 1929. Thus far this admission, she is positive 496 mL. IMPRESSION: 1. Hypoxemia: Appropriately corrected on the ventilator. 2. Acute respiratory failure secondary to acute respiratory distress syndrome. 3. Acute respiratory distress syndrome felt secondary to Streptococcus pyogenes sepsis /SIRS. 4. Critical care myopathy. I suspect that this is critical care myopathy as her weakness tends to be more proximal. She also had an elevated CK, which the maximum value appears to be around 4 days after starting cortical steroids as expected. The CK has been elevated since then and would be expected to remain around the same level or slightly lower for up to two weeks. 5. COPD with presumed exacerbation: She has been on bronchodilators and inhaled cortical steroids and systemic cortical steroids. 6. Diabetes mellitus: On insulin drip. 7. Infectious disease: On ceftriaxone day 11 out of a planned 14. 8. Deep venous thrombosis and stress ulcer prophylaxis in place. 9. Nutrition: Previously on full tube feeds. RECOMMENDATION: 1. Ms. Klein has been on pressure support of 5/5 and has an acceptable arterial blood gas on these settings. Her rapid shallow breathing index is 26, which predicts success and we went ahead and extubated her today. Thus far, she is tolerating extubation. 2. Will plan to transition her from noninvasive mechanical ventilation to an aerosol mask. Also will plan on using bilevel with naps and nocturnally as I have a high suspicion for obstructive sleep apnea. 3. However, will place an NG tube today to low intermittent suction as I am very concerned with her ability to remove the mask should she experience emesis or have other difficulties given her critical care myopathy. 4. Eventually, will likely have to replace the NG tube with a more long-lasting kangaroo tube as I suspect that she will require prolonged tube feeds given her weakness. 5. As noted above, I suspect that she has critical care myopathy. Critical care neuropathy as well as a mixed disorder is in the differential. However, as the treatment is the same, I do not see a reason to more formerly categorize the deficit. 6. Physical therapy and occupational therapy have been consulted. 7. Will move her to a stretcher chair today. 8. Will stop the systemic corticosteroids as her exacerbation appears to have resolved. 9. Will discontinue her insulin drip and place her on sliding scale insulin. 10. Would recommend continuation of antibiotics to complete a course of 14 days. 11. Her daughter was updated on her condition and also the expectation that because of her weakness it may take weeks to months for her to recover. Apparently, she went through a similar process when she was last critically ill. PROGNOSIS: Guarded. Critical Care Time: 55 minutes not including procedure care. ALTAGRACIA
[2017-02-07] MEDS ORDERED: MORPHINE 2 MG/ML 1ML SYRINGE As Ordered ONE (17:40)
[2017-02-07] MEDS: cefTRIAXone SOD 2 GM in D5W MINI-BAG PLUS 50 ML IV SCH (17:52)
[2017-02-07] MEDS: BUDESONIDE 0.5 MG/2 ML INHALATION SUSPENSION INH SCH (20:06)
[2017-02-07] MEDS: FORMOTEROL FUMARATE 20 MCG/2 ML INHALATION SOLUTION (PERFOROMIST) INH SCH (20:06)
[2017-02-07] MEDS ORDERED: FLUTICASONE HFA 220 MCG 12 GM INHALER (FLOVENT) INH SCH (21:00)
[2017-02-08] VITALS (13 sets, daily range): BP systolic 128–179; BP diastolic 58–77
[2017-02-08] MEDS: MORPHINE 2 MG/ML 1ML SYRINGE IV PRN ×3 (00:44→05:30)
[2017-02-08] MEDS: IPRATROPIUM 0.5MG/ALBUTEROL 2.5MG INH SOL UD 3ML (DUONEB)(J7620) NEB SCH ×7 (00:58→23:20)
[2017-02-08 05:09] LABS: MEAN CORPUSCULAR HEMOGLOBIN 28.9 pg (27.0-33.0); MEAN CORPUSCULAR HGB CONC 30.2 g/dl (32.0-36.5); MEAN CORPUSCULAR VOLUME 95.8 fl (80.0-96.0); RED CELL DISTRIBUTION WIDTH 15.1 % (11.5-14.5); WHITE BLOOD COUNT 15.4 K/mm3 (4.0-10.0)
[2017-02-08] MEDS: LEVOTHYROXINE 0.05 MG TAB (50 MCG) PO SCH (05:41)
[2017-02-08] MEDS: METOPROLOL TART 25 MG TABLET PO SCH ×3 (05:42→17:37)
[2017-02-08 05:50] LABS: ALBUMIN 2.1 GM/DL (3.2-5.2); ALBUMIN/GLOBULIN RATIO 0.42 (1.00-1.93); ALKALINE PHOSPHATASE 81 U/L (45-117); ALT/SGPT 79 U/L (12-78); ANION GAP 6 MEQ/L (8-16); AST/SGOT 113 U/L (15-37); BILIRUBIN,TOTAL 0.7 MG/DL (0.2-1.0); BLOOD UREA NITROGEN 58 MG/DL (7-18); CALCIUM LEVEL 7.5 MG/DL (8.8-10.2); CARBON DIOXIDE LEVEL 31 MEQ/L (21-32); CHLORIDE LEVEL 116 MEQ/L (98-107); CHOLESTEROL LEVEL 149 MG/DL (< 200); GLOMERULAR FILTRATION RATE > 60.0 (>45); GLUCOSE, FASTING 175 MG/DL (80-110); MAGNESIUM LEVEL 2.6 MG/DL (1.8-2.4); PHOSPHORUS LEVEL 3.8 MG/DL (2.5-4.9); SODIUM LEVEL 153 MEQ/L (136-145); TOTAL PROTEIN 7.1 GM/DL (6.4-8.2); TRIGLYCERIDES LEVEL 141 MG/DL (<150)
[2017-02-08] MEDS: HumaLOG INSULIN (NovoLOG) PER UNIT SC SCH ×3 (05:59→17:37)
[2017-02-08] MEDS: SODIUM CHLORIDE 0.9% INJ 10 ML SYR IV SCH ×2 (06:00→17:36)
[2017-02-08] MEDS: BUDESONIDE 0.5 MG/2 ML INHALATION SUSPENSION INH SCH ×2 (08:00→20:54)
[2017-02-08] MEDS: FORMOTEROL FUMARATE 20 MCG/2 ML INHALATION SOLUTION (PERFOROMIST) INH SCH ×2 (08:00→20:54)
--- NOTE | 2017-02-08 08:09 | REP ---
Clinical: Follow up ARDS. Comparison: 02/07/2017. Findings: Endotracheal tube has been removed. Left PICC line in stable position extends to the SVC. The mediastinum and cardiac silhouette are normal. The lung calderón demonstrate improved aeration. Bilateral alveolar and interstitial infiltrates are again identified but improved from prior examination. No obvious effusion. No pneumothorax. Skeletal structures intact. Impression: Overall improved aeration with mildly decreased infiltrates. Signed by Juan Duckworth MD 02/08/2017 08:01 A
[2017-02-08] MEDS: PANTOPRAZOLE 40MG INJ (PROTONIX) (C9113) IV SCH (09:11)
[2017-02-08] MEDS: ENOXAPARIN 30 MG/0.3 ML SYR (J1650) SC SCH (09:12)
[2017-02-08] MEDS: NYSTATIN 100,000 UNITS/GM TOPICAL PWD 15 GM TOP SCH ×2 (09:12→21:56)
[2017-02-08] MEDS ORDERED: MORPHINE 2 MG/ML 1ML SYRINGE IV PRN (10:45)
--- NOTE | 2017-02-08 11:32 | IPNPDOC ---
Subjective Date Seen The patient was seen on 02/08/17. Subjective Chief Complaint/HPI The patient is a 61-year-old female admitted with a reason for visit of Fever And Chills. Events since last encounter Patient has been weaned off of ventilator and bipap. Is now stable on oxygen. has limited mobility due to presumed critical care myopathy. She is unable to answer questions. General: Reports: ROS Unobtainable Objective Physical Examination General Exam: Positive: No Acute Distress, Negative: Alert, Cooperative (does not follow commands) Eye Exam: Positive: PERRLA ENT Exam: Positive: Mucous membr. moist/pink Neck Exam: Positive: Supple, Negative: thyromegaly Chest Exam: Positive: Clear to auscultation, Diminished, Negative: Rales, Rhonchi, Wheezing Heart Exam: Positive: Rate Normal, Negative: Murmurs Abdomen Exam: Positive: Normal bowel sounds, Soft, Negative: Tenderness Extremity Exam: Positive: Other (skin darkening of the lower extremities bilaterally), Negative: Clubbing, Cyanosis, Edema Skin Exam: Positive: Other skin issue (hyperpigmentation likely from stasis dermatitis.) Neuro Exam: Positive: Other (awake, however does not answer questions appropriately; occasionally gives one word answers, will not track finger) Assessment /Plan Problems (1) Dyspnea Status: Acute Problem Specific Plan: Consult Specialist, Monitor Clinically, Repeat Labs Problem Text: 02/08/2017: resuming care from comfort advisor team. Oxygen needs well maintained via NC. 01/31 - Pt was placed on ventilator early this morning for worsening respiratory function. Dr Espinosa following. Likely ARDs from Strep. Getting IV Ceftriaxone. WBC up some to 13.9 but likely due to stress. Currently afebrile with Tmax 100.5 at 00:00. 01/30 - Pt getting BiPap. Pulmonary following. Had been receiving Lasix. ECHO shows normal diastolic and systolic function with only mild valve degenerative changes, making Dx of CHF less likely, favor ARDS 01/29 - Pt was transferred to ICU early 01/[address] Heard. Pt was 3400cc positive on her I/O and increased difficulty breathing. IV fluids were stopped and IV Lasix 20 mg was given. Zazueta catheter was placed for accurate I/O and should be discontinued in no more than 2 days. ABG initially 7.38/42/123 on 15L via non-rebreather mask. Repeat ABG showed 7.33/46/53 on the 15L via non-rebreather + 6L NC. Portable chest x-ray revealed extensive pulmonary infiltrates bilaterally. Patient who affirmed she is Full Code. PO Lasix 40 mg given at 05:38 andIV Lasix 40 mg given at 06:24. Pulmonary/Critical Care consulted and Dr. Espinosa recommended she be changed to a high-flow face mask. Repeat ABG 7.374/43.8/67.5 Echo ordered. Pt had positive blood cx for strep pyogenes x 1 and was negative x 1 CXR: Enlarged cardiac silhouette, Significant increase in bilateral pulmonary infiltrates. (2) Diastolic CHF Status: Chronic Problem Text: 02/08/2017: appears well compensated. 01/31 - Off of Lasix. Creat up. Monitor. Worsening renal function not a good prognostic indicator 01/30 - Has been receiving IV Lasix.01/30: ECHO shows normal EF and normal diastolic function with minimal degenerative valvular disease. Her pulmonary edema is more likely ARDS 01/29 - Getting Lasix for volume overload. (IVF was d/c'ed). Echo ordered. (3) Hepatic encephalopathy Status: Chronic Problem Specific Plan: Monitor Clinically, Repeat Labs, Repeat Tests Problem Text: 02/08/2017: REsumed Lactulose. Started at 15 ml po bid. Should maintain 2-3 BMs per day. on lactulose and xifaxan for control at home. contributor to recent admissions elevated lactic acid, not associated with evidence of shock, suspect secondary to chronic hepatic dysfunction (4) CKD (chronic kidney disease) Status: Chronic Response to Treatment: Stable Problem Text: 02/08/2017: Cr. 1.09. stable and at baseline. 01/31 - BUN 29/ Creat 1.49. 01/30 - BUN 22/ Creat 1.24. Monitor closely as pt had been getting Lasix 01/29 - BUN 19/ Creat 1.19. Monitor closely as pt has been getting Lasix / at baseline 21/1.3, 3.9 (5) Hypokalemia Status: Resolved Problem Specific Plan: Monitor Clinically, Repeat Labs Problem Text: 01/31 - K 3.3. Give K run. (6) Sepsis due to Streptococcus pyogenes Status: Resolved Response to Treatment: Improving Problem Text: 01/31 - Pt was placed on ventilator early this morning for worsening respiratory function. Dr Espinosa following. Likely ARDs from Strep. Getting IV Ceftriaxone. WBC up some to 13.9 but likely due to stress. Currently afebrile with Tmax 100.5 at 00:00. 01/30 - Current Temp is 100.0. Tmax 101.7. On IV Ceftriaxone and IV Clinda Day 3. Echo ordered and apparently done but report not yet available. Pt had positive blood cx for strep pyogenes x 1 and was negative x 1 01/29 - currently afebrile. Tmax was 100.9 at 01:41. Ceftriaxone and clinda started yesterday. Ceftaroline was d/c'ed yesterday. Echo ordered. Pt had positive blood cx for strep pyogenes x 1 and was negative x 1 01/28 improved Tm 100.3 (102.3), WBC 10.5 (10.6). D2 ceftaroline changed to cetriaxone (PCN-hives) and clinda, check TTE 01/26 BCX 1/2 S. pyogenes-favor 2 pharyngitis (patient has had sore throat ~3D) vs erysipelas (although no obvious sources on legs) Plan/VTE VTE Prophylaxis Ordered?: Yes Plan/Urinary Catheter Reason for insertion/continuin: Critical Pt monitoring Plan IVF: Initiate Respiratory: Other Respiratory (Intubated) Diagnostics: Check Labs, MRI (MRI of brain ordered due to new neuro finding) Anticipated Discharge: Home With Services Attending note: I saw and evaluated the patient, and agree with the plan of care as discussed and documented by Luisa Hopkins. Discussed the patient with Dr. Espinosa. Although the patient's symptoms are not entirely consistent with critical care polyneuropathy, he does not feel that she needs a head CT at this time. However , patient continues to be somewhat altered, and is not moving her extremities. Patellar and biceps reflexes are not enhanced. Ben Candelario MD VS, I&O, 24H, Fishbone Vital Signs/I&O Vital Signs Date Time Temp Pulse Resp B/P (MAP) Pulse Ox O2 Delivery O2 Flow Rate FiO2 02/08/17 08:00 35 02/08/17 05:42 80 143/61 02/08/17 05:40 14 02/08/17 04:00 98.9 96 02/08/17 00:00 NIPPV (BIPAP/CPAP) 02/07/17 16:00 10.0 I&O- Last 24 Hours up to 6 AM 02/08/17 06:00 Intake Total 20 ml Output Total 5850 ml Balance -5830 ml Laboratory Data 24H LABS Laboratory Tests 2 02/07/17 12:11: Bedside Glucose (Misc Panel) 185H 02/07/17 17:36: Bedside Glucose (Misc Panel) 177H 02/07/17 23:37: Bedside Glucose (Misc Panel) 167H 02/08/17 04:47: Anion Gap 6L, Glomerular Filtration Rate > 60.0, Blood Urea Nitrogen 58H, Creatinine 0.90, Sodium Level 153H, Potassium Level 5.0, Chloride Level 116H, Carbon Dioxide Level 31, Calcium Level 7.5L, Phosphorus Level 3.8, Aspartate Amino Transf (AST/SGOT) 113H, Alanine Aminotransferase (ALT/SGPT) 79H, Lactate Dehydrogenase 575H, Total Creatine Kinase 534H, Alkaline Phosphatase 81, Total Bilirubin 0.7#, Triglycerides Level 141, Cholesterol Level 149, Total Protein 7.1, Albumin 2.1L, Magnesium Level 2.6H, Albumin/Globulin Ratio 0.42L 02/08/17 09:11: Urine Random Osmolality 652, Osmolality 339H 02/08/17 10:43: Bedside Glucose (Misc Panel) 121H CBC/BMP Laboratory Tests 02/08/17 04:47 Red Blood Count 3.79 L, Mean Corpuscular Volume 95.8, Mean Corpuscular Hemoglobin 28.9, Mean Corpuscular Hemoglobin Concent 30.2 L, Red Cell Distribution Width 15.1 H, Calcium Level 7.5 L, Phosphorus Level 3.8, Aspartate Amino Transf (AST/SGOT) 113 H, Alanine Aminotransferase (ALT/SGPT) 79 H, Lactate Dehydrogenase 575 H, Total Creatine Kinase 534 H, Alkaline Phosphatase 81, Total Bilirubin 0.7 #, Triglycerides Level 141, Cholesterol Level 149, Total Protein 7.1, Albumin 2.1 L Microbiology Microbiology 01/29/17 Blood Culture - Final, Complete NO GROWTH AFTER 5 DAYS 01/29/17 Blood Culture - Final, Complete NO GROWTH AFTER 5 DAYS Argentina Hopkins February 08, 2017 11:32 BEN CANDELARIO MD February 08, 2017 13:25
[2017-02-08] MEDS: LACTULOSE 20 GM/30 ML SYRUP UD GT SCH ×2 (12:33→21:56)
--- NOTE | 2017-02-08 13:38 | REP ---
Clinical: Feeding tube placement. Comparison: 02/08/2017 at 06:48 a.m. Findings: A gastric tube is identified extending through the esophagus into the left upper abdomen. The bilateral lung calderón demonstrate diffuse infiltrates consistent with known ARDS. Left PICC line with tip in the SVC. Impression: Gastric tube in the left upper abdomen. Continued evidence for ARDS. Signed by Juan Duckworth MD 02/08/2017 01:29 P
[2017-02-08] MEDS: PERCOCET 5MG/325MG TAB PO PRN (21:57)
[2017-02-09] VITALS (23 sets, daily range): BP systolic 141–177; BP diastolic 65–77; O2SAT 94–99
[2017-02-09] MEDS: HumaLOG INSULIN (NovoLOG) PER UNIT SC SCH ×4 (00:20→18:20)
[2017-02-09] MEDS: PERCOCET 5MG/325MG TAB PO PRN ×2 (04:03→09:26)
[2017-02-09] MEDS: IPRATROPIUM 0.5MG/ALBUTEROL 2.5MG INH SOL UD 3ML (DUONEB)(J7620) NEB SCH ×6 (04:28→23:05)
[2017-02-09] MEDS: LEVOTHYROXINE 0.05 MG TAB (50 MCG) PO SCH (05:36)
[2017-02-09] MEDS: METOPROLOL TART 25 MG TABLET PO SCH ×4 (05:36→18:00)
[2017-02-09] MEDS: SODIUM CHLORIDE 0.9% INJ 10 ML SYR IV SCH ×2 (05:37→17:39)
[2017-02-09 05:41] LABS: MEAN CORPUSCULAR HEMOGLOBIN 29.4 pg (27.0-33.0); MEAN CORPUSCULAR HGB CONC 30.4 g/dl (32.0-36.5); MEAN CORPUSCULAR VOLUME 96.7 fl (80.0-96.0); RED CELL DISTRIBUTION WIDTH 15.1 % (11.5-14.5); WHITE BLOOD COUNT 11.1 K/mm3 (4.0-10.0)
[2017-02-09 05:55] LABS: ALBUMIN 2.1 GM/DL (3.2-5.2); ALBUMIN/GLOBULIN RATIO 0.45 (1.00-1.93); ALKALINE PHOSPHATASE 87 U/L (45-117); ALT/SGPT 87 U/L (12-78); ANION GAP 6 MEQ/L (8-16); AST/SGOT 98 U/L (15-37); BILIRUBIN,TOTAL 0.6 MG/DL (0.2-1.0); BLOOD UREA NITROGEN 48 MG/DL (7-18); CALCIUM LEVEL 8.1 MG/DL (8.8-10.2); CARBON DIOXIDE LEVEL 30 MEQ/L (21-32); CHLORIDE LEVEL 121 MEQ/L (98-107); CHOLESTEROL LEVEL 136 MG/DL (< 200); CREATININE FOR GFR 0.85 MG/DL (0.55-1.02); GLOMERULAR FILTRATION RATE > 60.0 (>45); GLUCOSE, FASTING 184 MG/DL (80-110); MAGNESIUM LEVEL 2.7 MG/DL (1.8-2.4); PHOSPHORUS LEVEL 3.5 MG/DL (2.5-4.9); POTASSIUM SERUM 4.3 MEQ/L (3.5-5.1); SODIUM LEVEL 157 MEQ/L (136-145); TOTAL PROTEIN 6.8 GM/DL (6.4-8.2); TRIGLYCERIDES LEVEL 152 MG/DL (<150)
--- NOTE | 2017-02-09 07:24 | REP ---
Clinical: Hypoxemia. Comparison: 02/08/2017. Findings: Nasogastric tube courses below left hemidiaphragm. Left PICC line in SVC. Diffuse bilateral infiltrates are similar to prior examination. No new acute process identified. Mediastinum and cardiac silhouette stable. No obvious effusion. No pneumothorax. Impression: No significant change from prior examination. Continued diffuse bilateral infiltrates noted. Signed by Juan Duckworth MD 02/09/2017 07:15 A
[2017-02-09] MEDS: LACTULOSE 20 GM/30 ML SYRUP UD GT SCH ×2 (08:16→20:59)
[2017-02-09] MEDS: NYSTATIN 100,000 UNITS/GM TOPICAL PWD 15 GM TOP SCH ×2 (08:17→21:34)
[2017-02-09] MEDS: BUDESONIDE 0.5 MG/2 ML INHALATION SUSPENSION INH SCH ×2 (08:32→20:14)
[2017-02-09] MEDS: FORMOTEROL FUMARATE 20 MCG/2 ML INHALATION SOLUTION (PERFOROMIST) INH SCH ×2 (08:32→20:14)
[2017-02-09] MEDS: D5W 1,000 ML IV SCH ×2 (09:27→17:39)
--- NOTE | 2017-02-09 10:39 | IPNPDOC ---
Subjective Date Seen The patient was seen on 02/09/17. Subjective Chief Complaint/HPI The patient is a 61-year-old female admitted with a reason for visit of Fever And Chills. Objective Physical Examination General Exam: Positive: No Acute Distress, Negative: Alert, Cooperative (does not follow commands) Eye Exam: Positive: PERRLA ENT Exam: Positive: Mucous membr. moist/pink Neck Exam: Positive: Supple, Negative: thyromegaly Chest Exam: Positive: Clear to auscultation, Diminished, Negative: Rales, Rhonchi, Wheezing Heart Exam: Positive: Rate Normal, Negative: Murmurs Abdomen Exam: Positive: Normal bowel sounds, Soft, Negative: Tenderness Extremity Exam: Positive: Other (skin darkening of the lower extremities bilaterally), Negative: Clubbing, Cyanosis, Edema Skin Exam: Positive: Other skin issue (hyperpigmentation likely from stasis dermatitis.) Neuro Exam: Positive: Other (awake, however does not answer questions appropriately; occasionally gives one word answers, will not track finger) Assessment /Plan Problems (1) Elevated CPK Problem Text: c generalized weakness and elevated AST>ALT, LDH 02/09 651-02/09 TSH 3.2, no obvious medication (x LD BB, Lovenox)/no seizure/ trauma, ? inflammatory-check w/u 02/08 534 02/01/17 98 (2) ARDS (adult respiratory distress syndrome) Problem Text: 2 S. pyogenes sepsis slowly improving (3) Diastolic CHF Status: Chronic Problem Text: Euvolemic off furosemide/maura 01/30 - Has been receiving IV Lasix.01/30: ECHO shows normal EF and normal diastolic function with minimal degenerative valvular disease. Her pulmonary edema is more likely ARDS (4) Hepatic encephalopathy Status: Chronic Problem Specific Plan: Monitor Clinically, Repeat Labs, Repeat Tests Problem Text: 02/09/17 + Xifaxan 02/08/2017: resumed Lactulose. Started at 15 ml po bid. Should maintain 2-3 BMs per day. on lactulose and xifaxan for control at home. contributor to recent admissions elevated lactic acid, not associated with evidence of shock, suspect secondary to chronic hepatic dysfunction (5) CKD (chronic kidney disease) Status: Chronic Response to Treatment: Stable Problem Text: at baseline cr 1.2-1.3, stable lytes (6) Sepsis due to Streptococcus pyogenes Status: Resolved Response to Treatment: Improving Problem Text: No recurrent sx 01/29/17 BCX -x2 s/p ceftrixone 11D-last dose 02/07/17 TTE s vegetation 01/26 BCX 1/2 S. pyogenes-favor 2 pharyngitis (patient has had sore throat ~3D) vs erysipelas (although no obvious sources on legs) (7) Hypernatremia Status: Acute Problem Text: favor 2 dehydration 02/09 157, + [id number] to TF 02/08 152 Plan/VTE VTE Prophylaxis Ordered?: Yes Plan/Urinary Catheter Reason for insertion/continuin: Critical Pt monitoring Plan IVF: Initiate Respiratory: Other Respiratory (Intubated) Diagnostics: Check Labs, MRI (MRI of brain ordered due to new neuro finding) Anticipated Discharge: Home With Services VS, I&O, 24H, [facility] Vital Signs/I&O Vital Signs Date Time Temp Pulse Resp B/P (MAP) Pulse Ox O2 Delivery O2 Flow Rate FiO2 02/09/17 09:26 22 96 Nasal Cannula 4.0 02/09/17 08:13 98.6 72 169/77 (107) 02/09/17 05:00 30 I&O- Last 24 Hours up to 6 AM 02/09/17 06:00 Intake Total 880 ml Output Total 1620 ml Balance -740 ml Laboratory Data 24H LABS Laboratory Tests 2 02/08/17 10:43: Bedside Glucose (Misc Panel) 121H 02/08/17 17:08: Bedside Glucose (Misc Panel) 144H 02/09/17 00:01: Bedside Glucose (Misc Panel) 214H 02/09/17 05:18: Anion Gap 6L, Glomerular Filtration Rate > 60.0, Blood Urea Nitrogen 48H, Creatinine 0.85, Sodium Level 157H, Potassium Level 4.3, Chloride Level 121H, Carbon Dioxide Level 30, Calcium Level 8.1L, Phosphorus Level 3.5, Aspartate Amino Transf (AST/SGOT) 98H, Alanine Aminotransferase (ALT/SGPT) 87H, Lactate Dehydrogenase 487H, Total Creatine Kinase 651H, Alkaline Phosphatase 87, Total Bilirubin 0.6, Triglycerides Level 152H, Cholesterol Level 136, Total Protein 6.8, Albumin 2.1L, Magnesium Level 2.7H, Albumin/Globulin Ratio 0.45L, Thyroid Stimulating Hormone (TSH) 3.190 02/09/17 05:20: Bedside Glucose (Misc Panel) 163H CBC/BMP Laboratory Tests 02/09/17 05:18 Red Blood Count 3.70 L, Mean Corpuscular Volume 96.7 H, Mean Corpuscular Hemoglobin 29.4, Mean Corpuscular Hemoglobin Concent 30.4 L, Red Cell Distribution Width 15.1 H, Calcium Level 8.1 L, Phosphorus Level 3.5, Aspartate Amino Transf (AST/SGOT) 98 H, Alanine Aminotransferase (ALT/SGPT) 87 H, Lactate Dehydrogenase 487 H, Total Creatine Kinase 651 H, Alkaline Phosphatase 87, Total Bilirubin 0.6, Triglycerides Level 152 H, Cholesterol Level 136, Total Protein 6.8, Albumin 2.1 L Paul Torres M.D. February 09, 2017 10:39
[2017-02-09] MEDS: ENOXAPARIN 30 MG/0.3 ML SYR (J1650) SC SCH (11:57)
[2017-02-09] MEDS: rifAXIMin 550 MG TAB (XIFAXAN) PO SCH ×2 (11:57→21:34)
[2017-02-09] MEDS: LIDOCAINE 5% (LIDODERM) PATCH TD SCH (17:38)
[2017-02-09 18:48] LABS: ALBUMIN 1.9 GM/DL (3.2-5.2); ANION GAP 6 MEQ/L (8-16); BLOOD UREA NITROGEN 39 MG/DL (7-18); CALCIUM LEVEL 7.6 MG/DL (8.8-10.2); CARBON DIOXIDE LEVEL 30 MEQ/L (21-32); CHLORIDE LEVEL 115 MEQ/L (98-107); CREATININE FOR GFR 0.75 MG/DL (0.55-1.02); GLOMERULAR FILTRATION RATE > 60.0 (>45); GLUCOSE, FASTING 189 MG/DL (80-110); PHOSPHORUS LEVEL 3.2 MG/DL (2.5-4.9); POTASSIUM SERUM 4.6 MEQ/L (3.5-5.1); SODIUM LEVEL 151 MEQ/L (136-145)
[2017-02-09] MEDS: **NOTE PATIENT COMMENT** MISC XX SCH (21:00)
[2017-02-10] VITALS (9 sets, daily range): BP systolic 128–160; BP diastolic 59–70; O2SAT 95
[2017-02-10] MEDS: METOPROLOL TART 25 MG TABLET PO SCH ×4 (00:25→18:00)
[2017-02-10] MEDS: HumaLOG INSULIN (NovoLOG) PER UNIT SC SCH ×4 (00:26→19:08)
[2017-02-10] MEDS: D5W 1,000 ML IV SCH ×2 (03:39→20:54)
[2017-02-10] MEDS: oxyCODONE 5MG TAB PO PRN ×2 (03:52→17:33)
[2017-02-10] MEDS: IPRATROPIUM 0.5MG/ALBUTEROL 2.5MG INH SOL UD 3ML (DUONEB)(J7620) NEB SCH ×5 (04:00→20:00)
[2017-02-10] MEDS: LEVOTHYROXINE 0.05 MG TAB (50 MCG) PO SCH (05:36)
[2017-02-10] MEDS: SODIUM CHLORIDE 0.9% INJ 10 ML SYR IV SCH ×2 (05:37→18:00)
[2017-02-10 05:57] LABS: MEAN CORPUSCULAR HEMOGLOBIN 29.6 pg (27.0-33.0); MEAN CORPUSCULAR HGB CONC 31.4 g/dl (32.0-36.5); MEAN CORPUSCULAR VOLUME 94.1 fl (80.0-96.0); RED CELL DISTRIBUTION WIDTH 14.9 % (11.5-14.5); WHITE BLOOD COUNT 9.9 K/mm3 (4.0-10.0)
[2017-02-10 06:05] LABS: ALBUMIN 1.9 GM/DL (3.2-5.2); ALBUMIN/GLOBULIN RATIO 0.46 (1.00-1.93); ALKALINE PHOSPHATASE 74 U/L (45-117); ALT/SGPT 79 U/L (12-78); ANION GAP 5 MEQ/L (8-16); AST/SGOT 98 U/L (15-37); BILIRUBIN,TOTAL 0.5 MG/DL (0.2-1.0); BLOOD UREA NITROGEN 32 MG/DL (7-18); CALCIUM LEVEL 7.4 MG/DL (8.8-10.2); CARBON DIOXIDE LEVEL 30 MEQ/L (21-32); CHLORIDE LEVEL 110 MEQ/L (98-107); CHOLESTEROL LEVEL 113 MG/DL (< 200); CREATININE FOR GFR 0.72 MG/DL (0.55-1.02); GLOMERULAR FILTRATION RATE > 60.0 (>45); GLUCOSE, FASTING 194 MG/DL (80-110); MAGNESIUM LEVEL 2.1 MG/DL (1.8-2.4); PHOSPHORUS LEVEL 2.8 MG/DL (2.5-4.9); POTASSIUM SERUM 4.7 MEQ/L (3.5-5.1); SODIUM LEVEL 145 MEQ/L (136-145); TRIGLYCERIDES LEVEL 141 MG/DL (<150)
--- NOTE | 2017-02-10 07:56 | REP ---
Clinical: Hypoxia. Comparison: 02/09/2017. Findings: Mediastinum and cardiac silhouette are stable and without cardiomegaly. Orogastric tube courses below left hemidiaphragm in satisfactory stable position. The lung calderón demonstrate diffuse bilateral alveolar and interstitial infiltrates unchanged from prior examination. No definite effusion. No pneumothorax. Skeletal structures stable. Impression: No change from prior examination. Continued diffuse infiltrates. Signed by Juan Duckworth MD 02/10/2017 07:47 A
[2017-02-10] MEDS: rifAXIMin 550 MG TAB (XIFAXAN) PO SCH ×2 (08:06→20:55)
[2017-02-10] MEDS: LACTULOSE 20 GM/30 ML SYRUP UD GT SCH ×2 (08:06→20:57)
[2017-02-10] MEDS: LIDOCAINE 5% (LIDODERM) PATCH TD SCH (08:06)
[2017-02-10] MEDS: NYSTATIN 100,000 UNITS/GM TOPICAL PWD 15 GM TOP SCH (08:07)
[2017-02-10] MEDS: ENOXAPARIN 30 MG/0.3 ML SYR (J1650) SC SCH (08:07)
[2017-02-10] MEDS: FORMOTEROL FUMARATE 20 MCG/2 ML INHALATION SOLUTION (PERFOROMIST) INH SCH ×2 (08:20→20:00)
[2017-02-10] MEDS: BUDESONIDE 0.5 MG/2 ML INHALATION SUSPENSION INH SCH ×2 (08:20→20:00)
[2017-02-10] MEDS: AQUAPHOR **100GM** OINT TOP SCH ×2 (09:00→21:01)
--- NOTE | 2017-02-10 11:17 | IPNPDOC ---
Subjective Date Seen The patient was seen on 02/10/17. Subjective Chief Complaint/HPI The patient is a 61-year-old female admitted with a reason for visit of Fever And Chills. Constitutional: Denies: Fever Eyes: Denies: Pain Pulmonary: Denies: Dyspnea Cardiovascular: Denies: Chest Pain Gastrointestinal: Denies: Nausea, Vomiting Neurological: Reports: Weakness (generalized) Objective Physical Examination General Exam: Positive: No Acute Distress, Negative: Alert, Cooperative (does not follow commands) Eye Exam: Positive: PERRLA ENT Exam: Positive: Mucous membr. moist/pink Neck Exam: Positive: Supple, Negative: thyromegaly Chest Exam: Positive: Clear to auscultation, Diminished, Negative: Rales, Rhonchi, Wheezing Heart Exam: Positive: Rate Normal, Negative: Murmurs Abdomen Exam: Positive: Normal bowel sounds, Soft, Negative: Tenderness Extremity Exam: Positive: Other (skin darkening of the lower extremities bilaterally), Negative: Clubbing, Cyanosis, Edema Skin Exam: Positive: Other skin issue (hyperpigmentation likely from stasis dermatitis.) Neuro Exam: Positive: Other (awake, however does not answer questions appropriately; occasionally gives one word answers, will not track finger), Negative: Strength at / X4 ext (/ BUE/LE strength) Assessment /Plan Problems (1) Elevated CPK Problem Text: c generalized weakness and elevated AST>ALT, LDH continue PT/OT, will need subacute rehab favor CIM/CIP 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 increased 2 increased mobility c PT 02/09 651-02/09 TSH 3.2, no obvious medication (x LD BB, Lovenox)/no seizure/ trauma 02/08 534 02/01/17 98 01/27/17 MRI brain NAD (2) ARDS (adult respiratory distress syndrome) Problem Text: 2 S. pyogenes sepsis-improving (3) Diastolic CHF Status: Chronic Problem Text: Euvolemic off furosemide/maura 01/30 - Has been receiving IV Lasix.01/30: ECHO shows normal EF and normal diastolic function with minimal degenerative valvular disease. Her pulmonary edema is more likely ARDS (4) Hepatic encephalopathy Status: Chronic Problem Specific Plan: Monitor Clinically, Repeat Labs, Repeat Tests Problem Text: 02/09/17 NH3 23, + Xifaxan 02/08/2017 + lactulose 15 ml po bid prn 2-3 BMs per day. (5) CKD (chronic kidney disease) Status: Chronic Response to Treatment: Stable Problem Text: at baseline cr 1.2-1.3, stable lytes (6) Sepsis due to Streptococcus pyogenes Status: Resolved Response to Treatment: Improving Problem Text: No recurrent sx-continue aggressive BLE wound care 01/29/17 BCX -x2 s/p ceftrixone 11D-last dose 02/07/17 TTE s vegetation 01/26 BCX 09/24 S. pyogenes-favor 2 pharyngitis (patient has had sore throat ~3D) vs erysipelas (although no obvious sources on legs) (7) Hypernatremia Status: Acute Problem Text: favor 2 dehydration 02/10 145-decreased to 40/H 02/09 157, + [id number] to TF 02/08 152 (8) Dysphagia Status: Acute Response to Treatment: Improving Problem Text: continue complete TF c free water for now favor 2 CIM/CIP 02/11 plan swallow eval Plan/VTE VTE Prophylaxis Ordered?: Yes Plan/Urinary Catheter Reason for insertion/continuin: Critical Pt monitoring Plan IVF: Initiate Respiratory: Other Respiratory (Intubated) Diagnostics: Check Labs, MRI (MRI of brain ordered due to new neuro finding) Anticipated Discharge: Home With Services Disposition SNF when stable VS, I&O, 24H, [facility] Vital Signs/I&O Vital Signs Date Time Temp Pulse Resp B/P (MAP) Pulse Ox O2 Delivery O2 Flow Rate FiO2 02/10/17 09:58 73 20 132/61 (84) 93 Nasal Cannula 4.0 02/10/17 07:58 98.0 02/10/17 03:52 93 I&O- Last 24 Hours up to 6 AM 02/10/17 05:59 Intake Total 5100 ml Output Total 1645 ml Balance 3455 ml Laboratory Data 24H LABS Laboratory Tests 2 02/09/17 11:33: Erythrocyte Sedimentation Rate 70H, Ammonia 23, Total Creatine Kinase 683H, Creatine Kinase MB 9.4H, Creatine Kinase MB Relative Index 1.37, Troponin I 0.04 , C-Reactive Protein, Quantitative 0.87H 02/09/17 11:42: Bedside Glucose (Misc Panel) 178H 02/09/17 17:36: Blood Urea Nitrogen 39H, Creatinine 0.75, Sodium Level 151H, Potassium Level 4.6 , Chloride Level 115H, Carbon Dioxide Level 30, Anion Gap 6L, Glomerular Filtration Rate > 60.0, Calcium Level 7.6L, Phosphorus Level 3.2, Albumin 1.9L 02/09/17 17:46: Bedside Glucose (Misc Panel) 169H 02/10/17 00:03: Bedside Glucose (Misc Panel) 180H 02/10/17 05:20: Bedside Glucose (Misc Panel) 180H 02/10/17 05:28: Anion Gap 5L, Glomerular Filtration Rate > 60.0, Blood Urea Nitrogen 32H, Creatinine 0.72, Sodium Level 145, Potassium Level 4.7, Chloride Level 110H, Carbon Dioxide Level 30, Calcium Level 7.4L, Phosphorus Level 2.8, Aspartate Amino Transf (AST/SGOT) 98H, Alanine Aminotransferase (ALT/SGPT) 79H, Lactate Dehydrogenase 446H, Total Creatine Kinase 980H, Alkaline Phosphatase 74, Total Bilirubin 0.5, Triglycerides Level 141, Cholesterol Level 113, Total Protein 6.0L, Albumin 1.9L, Magnesium Level 2.1, Albumin/Globulin Ratio 0.46L CBC/BMP Laboratory Tests 02/09/17 17:36 Anion Gap 6 L 02/10/17 05:28 Red Blood Count 3.41 L, Mean Corpuscular Volume 94.1, Mean Corpuscular Hemoglobin 29.6, Mean Corpuscular Hemoglobin Concent 31.4 L, Red Cell Distribution Width 14.9 H, Calcium Level 7.4 L, Phosphorus Level 2.8, Aspartate Amino Transf (AST/SGOT) 98 H, Alanine Aminotransferase (ALT/SGPT) 79 H, Lactate Dehydrogenase 446 H, Total Creatine Kinase 980 H, Alkaline Phosphatase 74, Total Bilirubin 0.5, Triglycerides Level 141, Cholesterol Level 113, Total Protein 6.0 L, Albumin 1.9 L Paul Torres M.D. February 10, 2017 11:17
[2017-02-10] MEDS: **NOTE PATIENT COMMENT** MISC XX SCH (21:00)
[2017-02-11] MEDS: NYSTATIN 100,000 UNITS/GM TOPICAL PWD 15 GM TOP SCH ×3 (00:53→21:39)
[2017-02-11] MEDS: oxyCODONE 5MG TAB PO PRN ×3 (00:55→18:30)
[2017-02-11] MEDS: HumaLOG INSULIN (NovoLOG) PER UNIT SC SCH ×5 (00:57→21:00)
[2017-02-11] MEDS: IPRATROPIUM 0.5MG/ALBUTEROL 2.5MG INH SOL UD 3ML (DUONEB)(J7620) NEB SCH ×6 (03:30→20:00)
[2017-02-11] MEDS: METOPROLOL TART 25 MG TABLET PO SCH ×4 (06:00→17:37)
[2017-02-11] MEDS: SODIUM CHLORIDE 0.9% INJ 10 ML SYR IV SCH ×2 (06:15→17:38)
[2017-02-11] MEDS: LEVOTHYROXINE 0.05 MG TAB (50 MCG) PO SCH (06:15)
[2017-02-11 06:28] LABS: MEAN CORPUSCULAR HEMOGLOBIN 29.3 pg (27.0-33.0); MEAN CORPUSCULAR HGB CONC 31.1 g/dl (32.0-36.5); MEAN CORPUSCULAR VOLUME 94.3 fl (80.0-96.0); RED CELL DISTRIBUTION WIDTH 14.9 % (11.5-14.5); WHITE BLOOD COUNT 8.1 K/mm3 (4.0-10.0)
[2017-02-11 06:55] LABS: ALBUMIN 1.8 GM/DL (3.2-5.2); ALBUMIN/GLOBULIN RATIO 0.44 (1.00-1.93); ALKALINE PHOSPHATASE 76 U/L (45-117); ALT/SGPT 84 U/L (12-78); ANION GAP 6 MEQ/L (8-16); AST/SGOT 124 U/L (15-37); BILIRUBIN,TOTAL 0.6 MG/DL (0.2-1.0); BLOOD UREA NITROGEN 26 MG/DL (7-18); CALCIUM LEVEL 7.8 MG/DL (8.8-10.2); CARBON DIOXIDE LEVEL 29 MEQ/L (21-32); CHLORIDE LEVEL 106 MEQ/L (98-107); CHOLESTEROL LEVEL 100 MG/DL (< 200); CREATININE FOR GFR 0.65 MG/DL (0.55-1.02); GLOMERULAR FILTRATION RATE > 60.0 (>45); GLUCOSE, FASTING 165 MG/DL (80-110); MAGNESIUM LEVEL 1.9 MG/DL (1.8-2.4); PHOSPHORUS LEVEL 3.6 MG/DL (2.5-4.9); POTASSIUM SERUM 4.8 MEQ/L (3.5-5.1); SODIUM LEVEL 141 MEQ/L (136-145); TOTAL PROTEIN 5.9 GM/DL (6.4-8.2); TRIGLYCERIDES LEVEL 139 MG/DL (<150)
[2017-02-11] MEDS: FORMOTEROL FUMARATE 20 MCG/2 ML INHALATION SOLUTION (PERFOROMIST) INH SCH ×2 (07:22→20:25)
[2017-02-11] MEDS: BUDESONIDE 0.5 MG/2 ML INHALATION SUSPENSION INH SCH ×2 (07:23→20:26)
[2017-02-11] MEDS: LACTULOSE 20 GM/30 ML SYRUP UD GT SCH ×2 (09:00→20:23)
--- NOTE | 2017-02-11 09:06 | REP ---
Clinical: Hypoxemia. Comparison: 02/10/2017. Findings: Mediastinum and cardiac silhouette are stable. Left PICC line with tip in the SVC. Orogastric tube courses below left hemidiaphragm. Diffuse bilateral infiltrates unchanged from prior examination. Impression: No change from prior examination. Diffuse infiltrates again noted. Signed by Juan Duckworth MD 02/11/2017 08:57 A
--- NOTE | 2017-02-11 09:58 | IPNPDOC ---
Subjective Date Seen The patient was seen on 02/11/17. Subjective Chief Complaint/HPI The patient is a 61-year-old female admitted with a reason for visit of Fever And Chills. Events since last encounter Pat this morning doesn't have any questions. Nursing reports that she has LUE swelling and edema that has worsened overnight. Question whether she also has increased weakness in the LUE. Reports that the pt also had difficulty turning her head to the L. General: Reports: Fatigue Constitutional: Denies: Chills, Fever Pulmonary: Denies: Dyspnea, Cough Cardiovascular: Denies: Chest Pain, Palpitations Gastrointestinal: Denies: Nausea, Vomiting, Diarrhea Neurological: Reports: Weakness Psych: Reports: Mood Normal Objective Physical Examination General Exam: Positive: No Acute Distress, Negative: Alert, Cooperative (does not follow commands) Eye Exam: Positive: PERRLA ENT Exam: Positive: Mucous membr. moist/pink Neck Exam: Positive: Supple, Negative: thyromegaly Chest Exam: Positive: Clear to auscultation, Diminished, Negative: Rales, Rhonchi, Wheezing Heart Exam: Positive: Rate Normal, Negative: Murmurs Abdomen Exam: Positive: Normal bowel sounds, Soft, Negative: Tenderness Extremity Exam: Positive: Edema (LLU 2-3 mm pitting edema), Other (skin darkening of the lower extremities bilaterally), Negative: Clubbing, Cyanosis Skin Exam: Positive: Other skin issue (hyperpigmentation likely from stasis dermatitis.) Neuro Exam: Positive: Other (awake, however does not answer questions appropriately; occasionally gives one word answers, will not track finger), Negative: Strength at 5/ X4 ext (3/5 BUE/LE strength) Assessment /Plan Problems (1) Elevated CPK Problem Text: c generalized weakness and elevated AST>ALT, LDH continue PT/OT, will need subacute rehab favor CIM/CIP 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 increased 2 increased mobility c PT 02/09 651-02/09 TSH 3.2, no obvious medication (x LD BB, Lovenox)/no seizure/ trauma 02/08 534 02/01/17 98 01/27/17 MRI brain NAD (2) Dysphagia Status: Acute Response to Treatment: Improving Problem Text: 02/11- Swallow eval this morning suggests pureed/honey thickened liquids 02/10 continue complete TF c free water for now favor 2 CIM/CIP (3) ARDS (adult respiratory distress syndrome) Problem Text: 2 S. pyogenes sepsis-improving (4) Diastolic CHF Status: Chronic Problem Text: 02/11- -remains Euvolemic off furosemide/maura - cont to monitor 01/30 - Has been receiving IV Lasix.01/30: ECHO shows normal EF and normal diastolic function with minimal degenerative valvular disease. Her pulmonary edema is more likely ARDS (5) Hepatic encephalopathy Status: Chronic Problem Specific Plan: Monitor Clinically, Repeat Labs, Repeat Tests Problem Text: 02/09/17 NH3 23, + Xifaxan 02/08/2017 + lactulose 15 ml po bid prn 2-3 BMs per day. (6) CKD (chronic kidney disease) Status: Chronic Response to Treatment: Stable Problem Text: at baseline cr 1.2-1.3, stable lytes (7) Sepsis due to Streptococcus pyogenes Status: Resolved Response to Treatment: Improving Problem Text: No recurrent sx-continue aggressive BLE wound care 01/29/17 BCX -x2 s/p ceftrixone 11D-last dose 02/07/17 TTE s vegetation 01/26 BCX 1/2 S. pyogenes-favor 2 pharyngitis (patient has had sore throat ~3D) vs erysipelas (although no obvious sources on legs) (8) Hypernatremia Status: Resolved Problem Text: favor 2 dehydration 02/10 145-decreased to 40/H 02/09 157, + [id number]/H to TF 02/08 152 Plan/VTE VTE Prophylaxis Ordered?: Yes Plan/Urinary Catheter Reason for insertion/continuin: Critical Pt monitoring Plan IVF: Initiate Respiratory: Other Respiratory (Intubated) Diagnostics: Check Labs, MRI (MRI of brain ordered due to new neuro finding) Anticipated Discharge: Home With Services Attending note: I saw and evaluated the patient, and agree with the plan of care as discussed and documented by Tung Montaño, with the following exceptions: Patient has elevated lactose dehydrogenase, elevated liver enzymes, elevated CPK, and muscle weakness. As she is currently on a medication which can induce myopathy, I have stopped her rifaximin. Additionally, patient is up greater than 3 L since admission, which may explain additional edema and hypoxia. Ordered Lasix IV to increase urinary output for elevated CPK and reduce body volume. Geoff Candelario MD VS, I&O, 24H, [facility] Vital Signs/I&O Vital Signs Date Time Temp Pulse Resp B/P (MAP) Pulse Ox O2 Delivery O2 Flow Rate FiO2 02/11/17 06:00 80 151/70 02/11/17 03:20 97 Nasal Cannula 4.0 02/11/17 01:25 18 02/10/17 14:00 97.6 02/10/17 03:52 93 I&O- Last 24 Hours up to 6 AM 02/11/17 05:59 Intake Total 2780 ml Output Total 995 ml Balance 1785 ml Laboratory Data 24H LABS Laboratory Tests 2 02/10/17 13:04: Bedside Glucose (Misc Panel) 141H 02/10/17 16:33: Bedside Glucose (Misc Panel) 156H 02/10/17 23:32: Bedside Glucose (Misc Panel) 185H 02/11/17 06:10: Anion Gap 6L, Glomerular Filtration Rate > 60.0, Blood Urea Nitrogen 26H, Creatinine 0.65, Sodium Level 141, Potassium Level 4.8, Chloride Level 106, Carbon Dioxide Level 29, Calcium Level 7.8L, Phosphorus Level 3.6#, Aspartate Amino Transf (AST/SGOT) 124H, Alanine Aminotransferase (ALT/SGPT) 84H, Lactate Dehydrogenase 402H, Total Creatine Kinase 1054H, Alkaline Phosphatase 76, Total Bilirubin 0.6, Triglycerides Level 139, Cholesterol Level 100, Total Protein 5.9L, Albumin 1.8L, Magnesium Level 1.9, Albumin/Globulin Ratio 0.44L 02/11/17 06:21: Bedside Glucose (Misc Panel) 152H CBC/BMP Laboratory Tests 02/11/17 06:10 Red Blood Count 3.25 L, Mean Corpuscular Volume 94.3, Mean Corpuscular Hemoglobin 29.3, Mean Corpuscular Hemoglobin Concent 31.1 L, Red Cell Distribution Width 14.9 H, Calcium Level 7.8 L, Phosphorus Level 3.6 #, Aspartate Amino Transf (AST/SGOT) 124 H, Alanine Aminotransferase (ALT/SGPT) 84 H, Lactate Dehydrogenase 402 H, Total Creatine Kinase 1054 H, Alkaline Phosphatase 76, Total Bilirubin 0.6, Triglycerides Level 139, Cholesterol Level 100, Total Protein 5.9 L, Albumin 1.8 L TUNG MONTAÑO PA-C February 11, 2017 09:58 GEOFF CANDELARIO MD February 11, 2017 16:58
[2017-02-11] MEDS: ENOXAPARIN 30 MG/0.3 ML SYR (J1650) SC SCH (10:32)
[2017-02-11] MEDS: rifAXIMin 550 MG TAB (XIFAXAN) PO SCH (10:33)
[2017-02-11] MEDS: AQUAPHOR **100GM** OINT TOP SCH ×2 (10:34→21:39)
[2017-02-11] MEDS: LIDOCAINE 5% (LIDODERM) PATCH TD SCH (10:35)
[2017-02-11 10:36] LABS: MEAN CORPUSCULAR HEMOGLOBIN 29.7 pg (27.0-33.0); MEAN CORPUSCULAR HGB CONC 32.2 g/dl (32.0-36.5); MEAN CORPUSCULAR VOLUME 92.3 fl (80.0-96.0); WHITE BLOOD COUNT 8.2 K/mm3 (4.0-10.0)
[2017-02-11 10:56] LABS: ALBUMIN 1.9 GM/DL (3.2-5.2); ALBUMIN/GLOBULIN RATIO 0.46 (1.00-1.93); ALKALINE PHOSPHATASE 81 U/L (45-117); ALT/SGPT 91 U/L (12-78); ANION GAP 8 MEQ/L (8-16); AST/SGOT 128 U/L (15-37); BILIRUBIN,TOTAL 0.5 MG/DL (0.2-1.0); BLOOD UREA NITROGEN 27 MG/DL (7-18); CALCIUM LEVEL 7.9 MG/DL (8.8-10.2); CARBON DIOXIDE LEVEL 28 MEQ/L (21-32); CHLORIDE LEVEL 105 MEQ/L (98-107); CREATININE FOR GFR 0.69 MG/DL (0.55-1.02); GLOMERULAR FILTRATION RATE > 60.0 (>45); GLUCOSE, FASTING 209 MG/DL (80-110); POTASSIUM SERUM 4.7 MEQ/L (3.5-5.1); SODIUM LEVEL 141 MEQ/L (136-145)
--- NOTE | 2017-02-11 12:01 | REP ---
CT HEAD WITHOUT CONTRAST: HISTORY: Weakness. COMPARISON: 06/26/2012. Areas of decreased attentuation are present in the periventricular white matter. This represents small vessel ischemic disease. There is no intraparenchymal hemorrhage, mass, or midline shift. The ventricular system and cortical sulci are dilated consistent with mild volume loss. There is no extracerebral collection. The visualized sinuses are clear. IMPRESSION: 1. Small vessel ischemic disease. 2. Mild volume loss. Signed by Robert Roach MD 02/11/2017 12:22 P
--- NOTE | 2017-02-11 12:53 | REP ---
Clinical: Left upper extremity swelling . Technique: Calderon scale and color Doppler evaluation using linear high frequency transducer. Findings: Ultrasound examination of the left lower extremity deep venous structures from the jugular, subclavian, axillary, brachial, and cephalic veins all demonstrate normal compressibility flow and wave patterns in response to respiration and augmentation. A small amount of nonocclusive thrombus in the mid basilic vein cannot be excluded. Impression: A very small amount of nonocclusive thrombus in the mid basilic vein cannot be excluded. The remainder of the examination is normal. I Signed by Juan Duckworth MD 02/11/2017 12:44 P
[2017-02-11 14:00] VITALS: BP 144/65
[2017-02-11] MEDS ORDERED: FUROSEMIDE 40 MG/4 ML VIAL (J1940) IV ONE (17:00)
[2017-02-11] MEDS ORDERED: DEXTROSE 50% 50 ML SYRINGE IV PRN (20:45)
[2017-02-11] MEDS ORDERED: GLUCAGON FOR INJ 1 MG VIAL (J1610) SC PRN (20:45)
[2017-02-11] MEDS ORDERED: GLUCOSE 4 GM CHEW TABLET PO PRN (20:45)
[2017-02-11] MEDS ORDERED: HumaLOG INSULIN (NovoLOG) PER UNIT SC SCH (21:00)
[2017-02-11] MEDS: **NOTE PATIENT COMMENT** MISC XX SCH (21:00)
[2017-02-11 22:00] VITALS: BP 135/64
[2017-02-12] MEDS: IPRATROPIUM 0.5MG/ALBUTEROL 2.5MG INH SOL UD 3ML (DUONEB)(J7620) NEB SCH ×6 (00:08→19:08)
[2017-02-12 06:00] VITALS: BP 138/65
[2017-02-12] MEDS: SODIUM CHLORIDE 0.9% INJ 10 ML SYR IV SCH (06:00)
[2017-02-12 06:51] LABS: ALBUMIN 1.9 GM/DL (3.2-5.2); ALBUMIN/GLOBULIN RATIO 0.39 (1.00-1.93); ALKALINE PHOSPHATASE 79 U/L (45-117); ALT/SGPT 96 U/L (12-78); ANION GAP 9 MEQ/L (8-16); AST/SGOT 123 U/L (15-37); BILIRUBIN,TOTAL 0.6 MG/DL (0.2-1.0); BLOOD UREA NITROGEN 21 MG/DL (7-18); CALCIUM LEVEL 8.4 MG/DL (8.8-10.2); CARBON DIOXIDE LEVEL 29 MEQ/L (21-32); CHLORIDE LEVEL 104 MEQ/L (98-107); CHOLESTEROL LEVEL 104 MG/DL (< 200); CREATININE FOR GFR 0.65 MG/DL (0.55-1.02); GLOMERULAR FILTRATION RATE > 60.0 (>45); GLUCOSE, FASTING 157 MG/DL (80-110); PHOSPHORUS LEVEL 3.6 MG/DL (2.5-4.9); SODIUM LEVEL 142 MEQ/L (136-145); TOTAL PROTEIN 6.8 GM/DL (6.4-8.2); TRIGLYCERIDES LEVEL 119 MG/DL (<150)
[2017-02-12 06:55] LABS: POTASSIUM SERUM 3.7 MEQ/L (3.5-5.1)
[2017-02-12] MEDS: LEVOTHYROXINE 0.05 MG TAB (50 MCG) PO SCH (07:11)
[2017-02-12] MEDS: METOPROLOL TART 25 MG TABLET PO SCH ×4 (07:37→17:46)
[2017-02-12] MEDS: FORMOTEROL FUMARATE 20 MCG/2 ML INHALATION SOLUTION (PERFOROMIST) INH SCH ×2 (07:40→20:11)
[2017-02-12] MEDS: BUDESONIDE 0.5 MG/2 ML INHALATION SUSPENSION INH SCH ×2 (07:40→20:11)
[2017-02-12 08:00] VITALS: BP 130/59
[2017-02-12] MEDS ORDERED: MAALOX 30 ML SUSP *UDC PO ONE (08:00)
[2017-02-12] MEDS: ENOXAPARIN 30 MG/0.3 ML SYR (J1650) SC SCH (08:08)
[2017-02-12] MEDS: HumaLOG INSULIN (NovoLOG) PER UNIT SC SCH ×4 (08:08→21:00)
[2017-02-12] MEDS: LACTULOSE 20 GM/30 ML SYRUP UD GT SCH ×2 (08:09→21:00)
[2017-02-12] MEDS: LIDOCAINE 5% (LIDODERM) PATCH TD SCH (08:10)
[2017-02-12] MEDS: NYSTATIN 100,000 UNITS/GM TOPICAL PWD 15 GM TOP SCH ×2 (08:12→21:00)
[2017-02-12] MEDS: oxyCODONE 5MG TAB PO PRN ×3 (08:22→23:01)
[2017-02-12] MEDS: PANTOPRAZOLE 40MG TAB (PROTONIX) PO SCH (08:22)
[2017-02-12] MEDS: AQUAPHOR **100GM** OINT TOP SCH ×2 (08:23→21:00)
[2017-02-12 08:24] LABS: AMYLASE 270 U/L (25-115)
--- NOTE | 2017-02-12 08:32 | IPNPDOC ---
Subjective Date Seen The patient was seen on 02/12/17. Subjective Chief Complaint/HPI The patient is a 61-year-old female admitted with a reason for visit of Fever And Chills. Events since last encounter Patient c/o epigastric pain this morning that came on after eating breakfast. No n/v, but reports heartburn and feeling theneed to belch. Denies CP or SOB. Had a large loose BM this am. JFW 1:30 PM: pt has no abd pain, n/v. Per dtr, "speech is not normal" for her Constitutional: Denies: Chills, Fever Pulmonary: Denies: Dyspnea, Cough Cardiovascular: Denies: Chest Pain, Palpitations Gastrointestinal: Reports: Abdominal Pain, Diarrhea, Denies: Nausea, Vomiting, Constipation Objective Physical Examination General Exam: Positive: Alert, Cooperative (alert, answers questions and follow commands), Mild Distress (appears mildly dyspneic) Chest Exam: Positive: Clear to auscultation, Diminished, Negative: Rales, Rhonchi, Wheezing Heart Exam: Positive: Rate Normal, Negative: Murmurs Abdomen Exam: Positive: Normal bowel sounds, Soft, Tenderness (Tender in epigastrum - reproduces patients pain. No guard or rebound) Extremity Exam: Positive: Edema (LLU 2-3 mm pitting edema), Negative: Clubbing, Cyanosis Skin Exam: Positive: Other skin issue (hyperpigmentation likely from stasis dermatitis.) Neuro Exam: Negative: Strength at 5/5 X4 ext (3/5 BUE/LE strength) Assessment /Plan Problems (1) Epigastric abdominal pain Status: Acute Problem Text: 02/12 - symptoms occurred after eating breakfast and seem consistent with dyspepsia. Start PPI. give Maalox. Check amylase and lipase and monitor symptoms for improvement JFW: amlyase high, check CT abd/pelvis, put on clears (2) Basilic vein thrombosis Status: Acute Problem Text: Had left arm swelling yesterday so Left UE Us done. Showed POSSIBLE very small non-occlusive thrombus mid basilic vein. She is already on Lovenox 30 daily for DVT prophylaxis. Will increase top 40 daily since no longer has TED and renal function is normal, but will need to D/W attending need to augment treatment further. 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 Swallow eval 02/11 suggested pureed/honey thickened liquids Was on tube feeds from 02/01 - 02/10 JFW: get MRI brain, speech abnl per dtr (5) ARDS (adult respiratory distress syndrome) Problem Text: 02/12 - Treated for 2 S. pyogenes sepsis-improving - No longer on antibiotics. Patient was intubated for several days during hospitalization. Now maintaining saturations with Oxygen via nasal cannula (6) Diastolic CHF Status: Chronic Problem Text: 02/12 - Lasix and Spironolactone remain on hold. Her CXR 02/11 - showed diffuse infiltreated unchanged, She has LE edema related to hypoalbuminemia from protein calorie malnutrition and cirrhosis and chronic venous insufficiency She will likely need her diuretics restarted I will restart Lasix 40 mg daily as per her usual HD. Continue to hold Spironolactone for now. (ECHO shows normal EF and normal diastolic function with minimal degenerative valvular disease) (7) Hepatic encephalopathy Status: Chronic Problem Specific Plan: Monitor Clinically, Repeat Labs, Repeat Tests Problem Text: 02/12 - last ammonia level checked 02/09 was normal. On Lactulose 15ml BID prn - has not gotten this since 02/10. Monitor ammonia level. Rifaximin was hled, but could restart if needed (8) CKD (chronic kidney disease) Status: Chronic Response to Treatment: Stable Problem Text: 02/12 at baseline cr 1.2-1.3, (9) Sepsis due to Streptococcus pyogenes Status: Resolved Response to Treatment: Improving Problem Text: No recurrent sx-continue aggressive BLE wound care 01/29/17 BCX -x2 s/p ceftrixone 11D-last dose 02/07/17 TTE s vegetation 01/26 BCX 1/2 S. pyogenes-favor 2 pharyngitis (patient has had sore throat ~3D) vs erysipelas (although no obvious sources on legs) Plan/VTE VTE Prophylaxis Ordered?: Yes (Lovenox) Plan/Urinary Catheter Reason for insertion/continuin: Critical Pt monitoring Plan IVF: Initiate Respiratory: Other Respiratory (Intubated) Diagnostics: Check Labs, MRI (MRI of brain ordered due to new neuro finding) Anticipated Discharge: Home With Services VS[facility] Vital Signs/I&O Vital Signs Date Time Temp Pulse Resp B/P (MAP) Pulse Ox O2 Delivery O2 Flow Rate FiO2 02/12/17 07:37 88 138/65 02/12/17 06:00 99.9 16 96 Nasal Cannula 2.0 02/10/17 03:52 93 I&O- Last 24 Hours up to 6 AM 02/12/17 06:00 Intake Total 830 ml Output Total 2725 ml Balance -1895 ml Laboratory Data 24H LABS Laboratory Tests 2 02/11/17 10:14: Anion Gap 8, Glomerular Filtration Rate > 60.0, Blood Urea Nitrogen 27H, Creatinine 0.69, Sodium Level 141, Potassium Level 4.7, Chloride Level 105, Carbon Dioxide Level 28, Calcium Level 7.9L, Aspartate Amino Transf (AST/SGOT) 128H, Alanine Aminotransferase (ALT/SGPT) 91H, Alkaline Phosphatase 81, Total Bilirubin 0.5, Total Protein 6.0L, Albumin 1.9L, Albumin/Globulin Ratio 0.46L 02/11/17 13:02: Bedside Glucose (Misc Panel) 167H 02/11/17 21:24: Bedside Glucose (Misc Panel) 191H 02/12/17 05:17: Bedside Glucose (Misc Panel) 147H 02/12/17 06:18: Anion Gap 9, Glomerular Filtration Rate > 60.0, Blood Urea Nitrogen 21H, Creatinine 0.65, Sodium Level 142, Potassium Level 3.7#, Chloride Level 104, Carbon Dioxide Level 29, Calcium Level 8.4L, Phosphorus Level 3.6, Aspartate Amino Transf (AST/SGOT) 123H, Alanine Aminotransferase (ALT/SGPT) 96H, Lactate Dehydrogenase 428H, Total Creatine Kinase 593H, Alkaline Phosphatase 79, Total Bilirubin 0.6, Triglycerides Level 119, Cholesterol Level 104, Total Protein 6.8 , Albumin 1.9L, Albumin/Globulin Ratio 0.39L CBC/BMP Laboratory Tests 02/11/17 10:14 Red Blood Count 3.33 L, Mean Corpuscular Volume 92.3, Mean Corpuscular Hemoglobin 29.7, Mean Corpuscular Hemoglobin Concent 32.2, Red Cell Distribution Width 15.0 H, Calcium Level 7.9 L, Aspartate Amino Transf (AST/SGOT ) 128 H, Alanine Aminotransferase (ALT/SGPT) 91 H, Alkaline Phosphatase 81, Total Bilirubin 0.5, Total Protein 6.0 L, Albumin 1.9 L 02/12/17 06:18 Calcium Level 8.4 L, Aspartate Amino Transf (AST/SGOT) 123 H, Alanine Aminotransferase (ALT/SGPT) 96 H, Alkaline Phosphatase 79, Total Bilirubin 0.6, Total Protein 6.8, Albumin 1.9 L, Phosphorus Level 3.6, Lactate Dehydrogenase 428 H, Total Creatine Kinase 593 H, Triglycerides Level 119, Cholesterol Level 104 ETHEL NEUMANN PA-C February 12, 2017 08:32 Alfred Neumann MD February 12, 2017 13:35
[2017-02-12] MEDS ORDERED: FUROSEMIDE 40 MG TAB PO SCH (09:00)
[2017-02-12 14:00] VITALS: BP 127/59
--- NOTE | 2017-02-12 16:49 | REP ---
Clinical: Pancreatitis. Technique: Axial noncontrast images from the lung bases to the pubic symphysis with coronal and sagittal re-formations. Comparison: 04/05/2011. Findings: Lung bases demonstrate diffuse bilateral alveolar and interstitial infiltrates (right greater than left). No pleural effusion. Mild hepatosplenomegaly cannot be excluded. The patient is status post cholecystectomy. The pancreas is normal and there is no evidence for peripancreatic inflammatory changes to suggest acute pancreatitis by CT dated bilateral adrenal glands and kidneys are normal. The enteric system is without obstruction or acute inflammatory process normal terminal ileum and appendix identified in the right lower quadrant. Few scattered colonic diverticula noted without acute diverticulitis. Pelvis demonstrates a Zazueta catheter in normal bladder. Evidence of prior hysterectomy. No ascites. No significant adenopathy. No obvious mass lesion. Abdominal aorta demonstrates very minimal atherosclerotic changes without aneurysm. Surrounding musculoskeletal structures demonstrate age-related changes. Impression: 1. Extensive bilateral pulmonary infiltrates without effusion. 2. Mild hepatosplenomegaly cannot be excluded. 3. Normal appearance of the pancreas and peripancreatic soft tissues without CT evidence for acute pancreatitis. 4. Few scattered colonic diverticula without acute diverticulitis. 5. No ascites, adenopathy, or obvious mass lesion. Signed by Juan Duckworth MD 02/12/2017 04:40 P
[2017-02-12 20:08] VITALS: O2SAT 98
[2017-02-12] MEDS: **NOTE PATIENT COMMENT** MISC XX SCH (21:00)
[2017-02-12 22:00] VITALS: BP 144/71
[2017-02-13 00:16] VITALS: O2SAT 94
[2017-02-13] MEDS: IPRATROPIUM 0.5MG/ALBUTEROL 2.5MG INH SOL UD 3ML (DUONEB)(J7620) NEB SCH ×7 (00:16→23:53)
[2017-02-13] MEDS: oxyCODONE 5MG TAB PO PRN ×3 (03:22→18:26)
[2017-02-13 03:31] VITALS: O2SAT 96
[2017-02-13] MEDS: METOPROLOL TART 25 MG TABLET PO SCH ×4 (05:58→18:24)
[2017-02-13] MEDS: LEVOTHYROXINE 0.05 MG TAB (50 MCG) PO SCH (05:58)
[2017-02-13 06:00] VITALS: BP 141/65
[2017-02-13 07:09] LABS: MEAN CORPUSCULAR HEMOGLOBIN 29.2 pg (27.0-33.0); MEAN CORPUSCULAR HGB CONC 31.7 g/dl (32.0-36.5); RED CELL DISTRIBUTION WIDTH 15.2 % (11.5-14.5); WHITE BLOOD COUNT 5.7 K/mm3 (4.0-10.0)
[2017-02-13] MEDS: BUDESONIDE 0.5 MG/2 ML INHALATION SUSPENSION INH SCH ×2 (07:18→19:56)
[2017-02-13] MEDS: FORMOTEROL FUMARATE 20 MCG/2 ML INHALATION SOLUTION (PERFOROMIST) INH SCH ×2 (07:18→19:56)
[2017-02-13 07:40] LABS: ALBUMIN 1.9 GM/DL (3.2-5.2); ALBUMIN/GLOBULIN RATIO 0.41 (1.00-1.93); ALKALINE PHOSPHATASE 71 U/L (45-117); ALT/SGPT 96 U/L (12-78); AMYLASE 160 U/L (25-115); ANION GAP 6 MEQ/L (8-16); AST/SGOT 95 U/L (15-37); BILIRUBIN,TOTAL 0.5 MG/DL (0.2-1.0); BLOOD UREA NITROGEN 15 MG/DL (7-18); CALCIUM LEVEL 8.3 MG/DL (8.8-10.2); CARBON DIOXIDE LEVEL 32 MEQ/L (21-32); CHLORIDE LEVEL 105 MEQ/L (98-107); CHOLESTEROL LEVEL 111 MG/DL (< 200); CREATININE FOR GFR 0.63 MG/DL (0.55-1.02); GLOMERULAR FILTRATION RATE > 60.0 (>45); GLUCOSE, FASTING 142 MG/DL (80-110); PHOSPHORUS LEVEL 3.1 MG/DL (2.5-4.9); POTASSIUM SERUM 3.8 MEQ/L (3.5-5.1); SODIUM LEVEL 143 MEQ/L (136-145); TOTAL PROTEIN 6.5 GM/DL (6.4-8.2); TRIGLYCERIDES LEVEL 147 MG/DL (<150)
--- NOTE | 2017-02-13 08:11 | IPNPDOC ---
Subjective Date Seen The patient was seen on 02/13/17. Subjective Chief Complaint/HPI The patient is a 61-year-old female admitted with a reason for visit of Fever And Chills. Events since last encounter NO further epigastric pain. tolerating clear liquids. No new complaints Constitutional: Denies: Chills, Fever Pulmonary: Denies: Dyspnea, Cough Cardiovascular: Denies: Chest Pain, Palpitations Gastrointestinal: Denies: Nausea, Vomiting, Abdominal Pain, Diarrhea, Constipation Objective Physical Examination General Exam: Positive: Alert (bright, alert and answers questions appropriately), Negative: No Acute Distress Chest Exam: Positive: Clear to auscultation, Diminished, Negative: Rales, Rhonchi, Wheezing Heart Exam: Positive: Rate Normal, Negative: Murmurs Abdomen Exam: Positive: Normal bowel sounds, Soft, Negative: Tenderness Extremity Exam: Positive: Edema (1 mm edema BL with venous stasis changes), Negative: Clubbing, Cyanosis Skin Exam: Positive: Other skin issue (hyperpigmentation likely from stasis dermatitis.) Neuro Exam: Negative: Strength at 5/ X4 ext (3/ BUE/LE strength) Assessment /Plan Problems (1) Epigastric abdominal pain Status: Acute Problem Text: 02/13 - Epigastric pain resolved with Maalox and initiation of PPI daily Although Amylase and Lipase were high, Ct abd/pelvis showed normal pancreas. 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 Swallow eval 02/11 suggested pureed/honey thickened liquids Was on tube feeds from 02/01 - 02/10 JFW: get MRI brain, speech abnl per dtr (5) ARDS (adult respiratory distress syndrome) Problem Text: 02/12 - Treated for 2 S. pyogenes sepsis-improving - No longer on antibiotics. Patient was intubated for several days during hospitalization. Now maintaining saturations with Oxygen via nasal cannula (6) Diastolic CHF Status: Chronic Problem Text: 02/13 - Restart Lasix 40 mg daily. Continue to hold Spironolactone for now. Her CXR 02/11 - showed diffuse infiltrates unchanged, She has LE edema related to hypoalbuminemia from protein calorie malnutrition and cirrhosis and chronic venous insufficiency (ECHO shows normal EF and normal diastolic function with minimal degenerative valvular disease) (7) Hepatic encephalopathy Status: Chronic Problem Specific Plan: Monitor Clinically, Repeat Labs, Repeat Tests Problem Text: 02/13 - last ammonia level checked 02/09 was normal. On Lactulose 15ml BID prn - has not gotten this since 02/10. check Ammonia level today. Rifaximin was held, but could restart if needed (8) CKD (chronic kidney disease) Status: Chronic Response to Treatment: Stable Problem Text: 02/12 at baseline cr 1.2-1.3, (9) Sepsis due to Streptococcus pyogenes Status: Resolved Response to Treatment: Improving Problem Text: No recurrent sx-continue aggressive BLE wound care 01/29/17 BCX -x2 s/p ceftrixone 11D-last dose 02/07/17 TTE s vegetation 01/26 BCX 1/2 S. pyogenes-favor 2 pharyngitis (patient has had sore throat ~3D) vs erysipelas (although no obvious sources on legs) (10) Diabetes type 2, controlled Status: Chronic Response to Treatment: Stable Problem Text: 02/13 - Normally on Toujeo 17 units daily at home Only getting about 12 units coverage here and hs coverage was held. Monitor BS trend and restart long acting insulin once eating better. Plan/VTE VTE Prophylaxis Ordered?: Yes (Lovenox) Plan/Urinary Catheter Reason for insertion/continuin: Critical Pt monitoring Plan IVF: Initiate Respiratory: Other Respiratory (Intubated) Diagnostics: Check Labs, MRI (MRI of brain ordered due to new neuro finding) Anticipated Discharge: Home With Services Disposition D/C fisher today. SNF tomorrow if eating well and remains stable VS, I&O, 24H, [facility] Vital Signs/I&O Vital Signs Date Time Temp Pulse Resp B/P (MAP) Pulse Ox O2 Delivery O2 Flow Rate FiO2 02/13/17 06:00 99.3 81 16 141/65 (90) 96 Nasal Cannula 2.0 02/10/17 03:52 93 I&O- Last 24 Hours up to 6 AM 02/13/17 06:00 Intake Total 1460 ml Output Total 1850 ml Balance -390 ml Laboratory Data 24H LABS Laboratory Tests 2 02/12/17 12:05: Bedside Glucose (Misc Panel) 185H 02/12/17 16:37: Bedside Glucose (Misc Panel) 165H 02/12/17 19:54: Bedside Glucose (Misc Panel) 175H 02/13/17 05:07: Bedside Glucose (Misc Panel) 149H 02/13/17 06:28: Anion Gap 6L, Glomerular Filtration Rate > 60.0, Blood Urea Nitrogen 15, Creatinine 0.63, Sodium Level 143, Potassium Level 3.8, Chloride Level 105, Carbon Dioxide Level 32, Calcium Level 8.3L, Phosphorus Level 3.1, Aspartate Amino Transf (AST/SGOT) 95H, Alanine Aminotransferase (ALT/SGPT) 96H, Lactate Dehydrogenase 370H, Total Creatine Kinase 369H, Alkaline Phosphatase 71, Total Bilirubin 0.5, Triglycerides Level 147, Cholesterol Level 111, Total Protein 6.5 , Albumin 1.9L, Albumin/Globulin Ratio 0.41L, Amylase Level 160H, Lipase 1951H CBC/BMP Laboratory Tests 02/13/17 06:28 Red Blood Count 3.28 L, Mean Corpuscular Volume 92.0, Mean Corpuscular Hemoglobin 29.2, Mean Corpuscular Hemoglobin Concent 31.7 L, Red Cell Distribution Width 15.2 H, Calcium Level 8.3 L, Phosphorus Level 3.1, Aspartate Amino Transf (AST/SGOT) 95 H, Alanine Aminotransferase (ALT/SGPT) 96 H, Lactate Dehydrogenase 370 H, Total Creatine Kinase 369 H, Alkaline Phosphatase 71, Total Bilirubin 0.5, Triglycerides Level 147, Cholesterol Level 111, Total Protein 6.5, Albumin 1.9 L ETHEL JOSEPH PA-C February 13, 2017 08:11
[2017-02-13] MEDS: ENOXAPARIN 30 MG/0.3 ML SYR (J1650) SC SCH (08:28)
[2017-02-13] MEDS: PANTOPRAZOLE 40MG TAB (PROTONIX) PO SCH (08:28)
[2017-02-13] MEDS: LIDOCAINE 5% (LIDODERM) PATCH TD SCH (08:29)
[2017-02-13] MEDS: LACTULOSE 20 GM/30 ML SYRUP UD GT SCH ×2 (08:29→20:46)
[2017-02-13] MEDS: AQUAPHOR **100GM** OINT TOP SCH ×2 (08:30→20:46)
[2017-02-13] MEDS: HumaLOG INSULIN (NovoLOG) PER UNIT SC SCH ×4 (08:30→20:40)
[2017-02-13] MEDS: NYSTATIN 100,000 UNITS/GM TOPICAL PWD 15 GM TOP SCH ×2 (08:30→20:46)
--- NOTE | 2017-02-13 10:01 | REP ---
MR BRAIN WITHOUT CONTRAST: HISTORY: Infarction. COMPARISON: MR 01/28/[address] 02/11/2017. The examination is available for review at 08:45 a.m. this date. Areas of increased signal intensity on T2-weighted images are present in the periventricular and subcortical white matter and genesis. This represents small vessel ischemic disease. There is no intraparenchymal hemorrhage, infarct mass or midline shift. The ventricular system and cortical sulci as well as subarachnoid space in the posterior fossa are dilated consistent with mild volume loss. There is no extracerebral collection. Mucosal thickening is present in the mastoid air cells. A cyst is present in the subcutaneous tissue anterior to the left temporomandibular joint and lateral to the left lateral pterygoid muscle. This measures 1.8 cm in width and is unchanged in size compared to the previous study. IMPRESSION: 1. Small vessel ischemic disease. 2. Mild volume loss. Signed by Robert Roach MD 02/13/2017 10:19 A
[2017-02-13] MEDS: **NOTE PATIENT COMMENT** MISC XX SCH (20:46)
[2017-02-13 22:00] VITALS: BP 141/65
[2017-02-13 23:53] VITALS: O2SAT 99
[2017-02-14] MEDS: METOPROLOL TART 25 MG TABLET PO SCH ×2 (01:04→06:00)
[2017-02-14] MEDS: oxyCODONE 5MG TAB PO PRN (01:04)
[2017-02-14] MEDS: IPRATROPIUM 0.5MG/ALBUTEROL 2.5MG INH SOL UD 3ML (DUONEB)(J7620) NEB SCH ×3 (02:59→11:24)
[2017-02-14 06:00] VITALS: BP 138/63
[2017-02-14] MEDS: LEVOTHYROXINE 0.05 MG TAB (50 MCG) PO SCH (06:43)
[2017-02-14] MEDS: FORMOTEROL FUMARATE 20 MCG/2 ML INHALATION SOLUTION (PERFOROMIST) INH SCH (07:24)
[2017-02-14] MEDS: BUDESONIDE 0.5 MG/2 ML INHALATION SUSPENSION INH SCH (07:24)
[2017-02-14 07:49] LABS: ALBUMIN 1.9 GM/DL (3.2-5.2); ALBUMIN/GLOBULIN RATIO 0.46 (1.00-1.93); ALKALINE PHOSPHATASE 77 U/L (45-117); ALT/SGPT 93 U/L (12-78); ANION GAP 6 MEQ/L (8-16); AST/SGOT 79 U/L (15-37); BILIRUBIN,TOTAL 0.4 MG/DL (0.2-1.0); BLOOD UREA NITROGEN 13 MG/DL (7-18); CALCIUM LEVEL 7.8 MG/DL (8.8-10.2); CARBON DIOXIDE LEVEL 30 MEQ/L (21-32); CHLORIDE LEVEL 108 MEQ/L (98-107); CREATININE FOR GFR 0.61 MG/DL (0.55-1.02); GLOMERULAR FILTRATION RATE > 60.0 (>45); GLUCOSE, FASTING 136 MG/DL (80-110); POTASSIUM SERUM 4.1 MEQ/L (3.5-5.1); SODIUM LEVEL 144 MEQ/L (136-145)
[2017-02-14] MEDS: PANTOPRAZOLE 40MG TAB (PROTONIX) PO SCH (08:28)
[2017-02-14] MEDS: ENOXAPARIN 30 MG/0.3 ML SYR (J1650) SC SCH (08:28)
[2017-02-14] MEDS: LACTULOSE 20 GM/30 ML SYRUP UD GT SCH (08:28)
[2017-02-14] MEDS: HumaLOG INSULIN (NovoLOG) PER UNIT SC SCH (08:28)
[2017-02-14] MEDS: LIDOCAINE 5% (LIDODERM) PATCH TD SCH (08:29)
[2017-02-14] MEDS: NYSTATIN 100,000 UNITS/GM TOPICAL PWD 15 GM TOP SCH (08:29)
[2017-02-14] MEDS: AQUAPHOR **100GM** OINT TOP SCH (08:29)
--- NOTE | 2017-02-14 08:29 | IPNPDOC ---
Subjective Date Seen The patient was seen on 02/14/17. Subjective Chief Complaint/HPI The patient is a 61-year-old female admitted with a reason for visit of Fever And Chills. Events since last encounter Feels well. Eating well. No abd pain. fisher d/c'd yesterday. Urinating without dysuria or difficulty Constitutional: Denies: Chills, Fever Pulmonary: Denies: Dyspnea, Cough Cardiovascular: Denies: Chest Pain Gastrointestinal: Denies: Nausea, Vomiting, Abdominal Pain, Diarrhea, Constipation Genitourinary: Denies: Dysuria Objective Physical Examination General Exam: Positive: Alert (bright, alert and answers questions appropriately), Negative: No Acute Distress Chest Exam: Positive: Clear to auscultation, Diminished, Negative: Rales, Rhonchi, Wheezing Heart Exam: Positive: Rate Normal, Negative: Murmurs Abdomen Exam: Positive: Normal bowel sounds, Soft, Negative: Tenderness Extremity Exam: Positive: Edema (1 mm edema BL with venous stasis changes), Negative: Clubbing, Cyanosis Skin Exam: Positive: Other skin issue (hyperpigmentation likely from stasis dermatitis.) Neuro Exam: Negative: Strength at 5/ X4 ext (3/5 BUE/LE strength) Assessment /Plan Problems (1) Diabetes type 2, controlled Status: Chronic Response to Treatment: Stable Problem Text: 02/14 - Normally on Toujeo 17 units daily at home Blood sugars are starting to come up now that eating more. Restart low dose Toujeo. (2) Diastolic CHF Status: Chronic Problem Text: 02/14 - Restart Lasix 40 mg daily. Continue to hold Spironolactone for now. Her CXR 02/11 - showed diffuse infiltrates unchanged, She has trace LE edema related to hypoalbuminemia from protein calorie malnutrition and cirrhosis and chronic venous insufficiency (ECHO shows normal EF and normal diastolic function with minimal degenerative valvular disease) (3) Hepatic encephalopathy Status: Chronic Problem Specific Plan: Monitor Clinically, Repeat Labs, Repeat Tests Problem Text: 02/14- ammonia level = 35. Up slightly but good mentation. On Lactulose 15ml BID prn - Has gotten this x 3 doses last 2 days, byjhon adams had not gotten it for 2 days. Monitor Ammonia trend (4) Epigastric abdominal pain Status: Resolved Problem Text: 02/13 - Epigastric pain resolved with Maalox and initiation of PPI daily Although Amylase and Lipase were high, Ct abd/pelvis showed normal pancreas. 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 Swallow eval 02/11 suggested pureed/honey thickened liquids Was on tube feeds from 02/01 - 02/10 JFW: get MRI brain, speech abnl per dtr (8) ARDS (adult respiratory distress syndrome) Problem Text: 02/12 - Treated for 2 S. pyogenes sepsis-improving - No longer on antibiotics. Patient was intubated for several days during hospitalization. Now maintaining saturations with Oxygen via nasal cannula (9) CKD (chronic kidney disease) Status: Chronic Response to Treatment: Stable Problem Text: 02/12 at baseline cr 1.2-1.3, (10) Sepsis due to Streptococcus pyogenes Status: Resolved Response to Treatment: Improving Problem Text: No recurrent sx-continue aggressive BLE wound care 01/29/17 BCX -x2 s/p ceftrixone 11D-last dose 02/07/17 TTE s vegetation 01/26 BCX 1/2 S. pyogenes-favor 2 pharyngitis (patient has had sore throat ~3D) vs erysipelas (although no obvious sources on legs) Plan/VTE VTE Prophylaxis Ordered?: Yes (Lovenox) Plan/Urinary Catheter Reason for insertion/continuin: Critical Pt monitoring Plan IVF: Initiate Respiratory: Other Respiratory (Intubated) Diagnostics: Check Labs, MRI (MRI of brain ordered due to new neuro finding) Anticipated Discharge: Home With Services Disposition Per Case management, [facility]. I will d/c tomorrow VS, I&O, 24H, [facility] Vital Signs/I&O Vital Signs Date Time Temp Pulse Resp B/P (MAP) Pulse Ox O2 Delivery O2 Flow Rate FiO2 02/14/17 06:00 98.1 82 16 138/63 (88) 97 Nasal Cannula 2.0 02/10/17 03:52 93 I&O- Last 24 Hours up to 6 AM 02/14/17 06:00 Intake Total 480 ml Output Total 225 ml Balance 255 ml Laboratory Data 24H LABS Laboratory Tests 2 02/13/17 08:30: Ammonia 35H 02/13/17 11:40: Bedside Glucose (Misc Panel) 208H 02/13/17 16:38: Bedside Glucose (Misc Panel) 141H 02/13/17 20:32: Bedside Glucose (Misc Panel) 219H 02/14/17 06:36: Anion Gap 6L, Glomerular Filtration Rate > 60.0, Blood Urea Nitrogen 13, Creatinine 0.61, Sodium Level 144, Potassium Level 4.1, Chloride Level 108H, Carbon Dioxide Level 30, Calcium Level 7.8L, Aspartate Amino Transf (AST/SGOT) 79H, Alanine Aminotransferase (ALT/SGPT) 93H, Alkaline Phosphatase 77, Total Bilirubin 0.4, Total Protein 6.0L, Albumin 1.9L, Albumin/Globulin Ratio 0.46L CBC/BMP Laboratory Tests 02/14/17 06:36 Calcium Level 7.8 L, Aspartate Amino Transf (AST/SGOT) 79 H, Alanine Aminotransferase (ALT/SGPT) 93 H, Alkaline Phosphatase 77, Total Bilirubin 0.4, Total Protein 6.0 L, Albumin 1.9 L ETHEL JOSEPH PA-C February 14, 2017 08:29
[2017-02-14] MEDS ORDERED: LIDO5TD TD (10:54)
[2017-02-14] MEDS ORDERED: INSUHUMDS SC ×2 (10:54)
[2017-02-14] MEDS ORDERED: AQUA100OI TOP (10:54)
[2017-02-14] MEDS ORDERED: LACT20EL GT (10:54)
[2017-02-14] MEDS ORDERED: METO25TAB PO (10:54)
[2017-02-14] MEDS ORDERED: OXYCO5TA PO (10:54)
[2017-02-14] MEDS ORDERED: IPRASOL4 NEB (10:54)
[2017-02-14] MEDS ORDERED: BUDE0.5S6 INH (10:54)
[2017-02-14] MEDS ORDERED: **Note Patient Comment XX (10:54)
[2017-02-14] MEDS ORDERED: PERF20NE2 INH (10:54)
[2017-02-14] MEDS ORDERED: NYST10PW TOP (10:54)
[2017-02-14] MEDS ORDERED: ALB2.5NEB NEB (10:54)
[2017-02-14] MEDS ORDERED: LOVE1INJ2 SC (10:54)
--- NOTE | 2017-02-14 11:54 | DSES ---
DATE OF ADMISSION: 01/27/2017 DATE OF DISCHARGE: BRIEF HISTORY AND PHYSICAL: Patient is a 61-year-old patient who presented with chills and rigors the day before admission. She had a fever of 102 in the emergency room. Denied shortness of breath, cough or abdominal pain. Past medical history is significant for cirrhosis due to nonalcoholic steatohepatitis, morbid obesity, obstructive sleep apnea not using C-PAP, diabetes, hypertension, diastolic congestive heart failure, history of hepatic encephalopathy and portal hypertension, chronic kidney disease stage 3, schizoaffective disorder, hypothyroidism, gastroesophageal reflux disease, hiatal hernia, history of prolonged QT, chronic obstructive pulmonary disease (COPD), chronic bilateral extremity venous stasis and chronic stasis ulcers, bilateral extremity lymphedema, bilateral shoulder impingement syndrome with chronic pain, hyperlipidemia, vitamin D deficiency, osteopenia, allergic rhinitis, portal hypertension, chronic narcotic use and pancytopenia due to end-stage liver disease. PERTINENT LABS ON ADMISSION: White count 12.6, hemoglobin 11.7, platelets 148,000, sodium 140, potassium 3.8, BUN 22, creatinine 1.56, glucose 180, AST 51, ALT 27, ammonia 58, albumin 3.2, lactic acid 3.9. HOSPITAL COURSE: 1. Patient was admitted for fever. Initially the source was unknown, though to be possibly viral versus related to superficial ulcer and venous stasis with possibly cellulitis. She was put on ceftaroline to cover for this. Blood culture grew Streptococcus Pyogenes. On 01/29/2017, she developed hypoxic respiratory failure felt to be related to cardiogenic pulmonary edema or possibly noncardiogenic pulmonary edema. Lasix was administered and ultimately she was placed on noninvasive positive pressure ventilation; however, she ultimately did require intubation on 01/31/2017 and it was felt that her respiratory failure was secondary to acute respiratory distress syndrome (ARDS). Tube feeds were initiated and she remained intubated for several days. She has since been extubated and is maintaining her oxygen saturations on 2 liters nasal cannula with a variety of nebulized bronchodilators and inhaled steroids, and her respiratory status has remained stable throughout the rest of her hospitalization. 2. Dysphagia. She was getting tube feeds while intubated. A swallowing eval was performed on 02/11 suggesting she would benefit from pureed and honey thickened liquids which she has been tolerating well. She did have an MRI of the brain that was performed on 02/11, did not show any acute disease. 3. Diabetes mellitus type 2. She is normally on Toujeo 17 units at home. Now that she is eating her sugars are starting to come up and we may want to restart a low dose of Toujeo eventually. At this point, she is on sliding scale coverage. 4. Diastolic congestive heart failure. She was diuresed early on and then her diuretics were held due to a decline in her renal function. Her renal function has normalized and it is likely that she will require restart of the Lasix, which I have ordered for her to initiate today upon her transfer. She will need monitoring of her renal function with the restart of her usual home dose Lasix. 5. Hepatic encephalopathy. Lactulose was started due to an elevated ammonia level and altered mental status. She is getting this on a as needed basis. Her ammonia level was normal, but it has trended back up slightly to 35 on the date of discharge, but her mental status she is alert and answering questions appropriately. She will continue the lactulose as written with a p.r.n. order and follow her mental status and ammonia level as needed. 6. Epigastric abdominal pain. She developed some epigastric pain on 02/13 with an elevation in her amylase and lipase; however, CT of the abdomen and pelvis showed a normal pancreas. Her diet was switched to clear liquids for a day. Amylase and lipase trended down. She was placed on a proton pump inhibitor (PPI) and given Maalox as needed. Her epigastric pain has completely resolved. 7. Basilic vein superficial thrombosis. She had swelling of the left arm despite being on Lovenox for DVT prophylaxis. Ultrasound showed superficial vein thrombosis in the basilic vein. Her dose of Lovenox was increased to 40 mg a day now that her renal function is normal. 8. Elevated CPK. Likely related to post ventilatory critical care myopathy with worsening after corticosteroids in a patient was cachectic myopathy. CPK was normalizing after she was out of the ICU. 9. Chronic kidney disease, renal function is stable. DISPOSITION: Patient is stable for transfer to [facility]. MEDICATIONS: - albuterol nebulizer every 2 hours as needed for shortness of breath - budesonide 0.5 mg twice a day - Aquaphor topically to her face wound twice a day - Lovenox 40 mg subcu daily - formoterol 20 mcg inhaled twice a day - sliding-scale insulin before meals and at bedtime per protocol - lactulose 15 mL twice a day - lidocaine patches daily - metoprolol 25 mg every 6 hours - nystatin powder topically twice a day - oxycodone 5 mg every 6 hours as needed for pain - Lasix 40 mg daily - levothyroxine 50 mcg daily - pantoprazole 40 mg daily DISCHARGE DIAGNOSES: 1. Sepsis secondary to Streptococcus Pyogenes. 2. Acute respiratory failure requiring intubation. 3. Acute respiratory distress syndrome. 4. Dysphagia. 5. Elevated CPK secondary to critical care myopathy. 6. Basilic vein superficial thrombus. 7. Hepatic encephalopathy. 8. Diastolic congestive heart failure. 9. Diabetes mellitus type 2. PROCEDURES PERFORMED: Include: 1. Direct laryngoscopy and endotracheal tube intubation on 01/31/2017. 2. Insertion of left subclavian central line on 02/02/2017.
== END 2017-02-14 12:00 | DRG 710 ==
LOC: EDBD 21:09 → M ED 22:02 → EEVIPCON 01-27 00:04 → M ED INP 01-27 00:04 → M MSPAV 01-27 01:50 → M ICU 01-29 06:02 → M MS5PR 02-10 12:00
PROVIDERS: ADMIT Internal Medicine Nephrology; ATTEND Family Medicine
PROC: 05HC33Z Insertion of Infusion Device into Left Basilic Vein, Percutaneous Approach (ICD-10-PCS; 2017-01-30)
PROC: 0BH18EZ Insertion of Endotracheal Airway into Trachea, Via Natural or Artificial Opening Endoscopic (ICD-10-PCS; principal; 2017-01-31)
PROC: 03HC3DZ Insertion of Intraluminal Device into Left Radial Artery, Percutaneous Approach (ICD-10-PCS; 2017-01-31)
PROC: 5A1955Z Respiratory Ventilation, Greater than 96 Consecutive Hours (ICD-10-PCS; 2017-01-31)
PROC: 05H633Z Insertion of Infusion Device into Left Subclavian Vein, Percutaneous Approach (ICD-10-PCS; 2017-02-02)
DX: A40.0 Sepsis due to streptococcus, group A (principal); J96.01 Acute respiratory failure with hypoxia; G72.81 Critical illness myopathy; G93.41 Metabolic encephalopathy; D61.818 Other pancytopenia; E87.0 Hyperosmolality and hypernatremia; K76.6 Portal hypertension; I13.0 Hypertensive heart and chronic kidney disease with heart failure and stage 1 through stage 4 chronic kidney disease, or unspecified chronic kidney disease; E87.2 Acidosis; I50.32 Chronic diastolic (congestive) heart failure; N18.3 Chronic kidney disease, stage 3 (moderate); J44.1 Chronic obstructive pulmonary disease with (acute) exacerbation; E46 Unspecified protein-calorie malnutrition; K74.60 Unspecified cirrhosis of liver; K75.81 Nonalcoholic steatohepatitis (NASH); E66.01 Morbid (severe) obesity due to excess calories; E55.9 Vitamin D deficiency, unspecified; L97.911 Non-pressure chronic ulcer of unspecified part of right lower leg limited to breakdown of skin; Z68.41 Body mass index [BMI] 40.0-44.9, adult; R13.10 Dysphagia, unspecified; I82.612 Acute embolism and thrombosis of superficial veins of left upper extremity; K72.90 Hepatic failure, unspecified without coma; G47.33 Obstructive sleep apnea (adult) (pediatric); E11.9 Type 2 diabetes mellitus without complications; F25.9 Schizoaffective disorder, unspecified; E03.9 Hypothyroidism, unspecified; K21.9 Gastro-esophageal reflux disease without esophagitis; K44.9 Diaphragmatic hernia without obstruction or gangrene; I87.2 Venous insufficiency (chronic) (peripheral); M75.41 Impingement syndrome of right shoulder; M75.42 Impingement syndrome of left shoulder; M19.011 Primary osteoarthritis, right shoulder; M19.012 Primary osteoarthritis, left shoulder; M85.80 Other specified disorders of bone density and structure, unspecified site; J30.9 Allergic rhinitis, unspecified; Z88.0 Allergy status to penicillin; Z88.6 Allergy status to analgesic agent; Z88.8 Allergy status to other drugs, medicaments and biological substances; Z79.4 Long term (current) use of insulin; Z79.891 Long term (current) use of opiate analgesic; Z88.1 Allergy status to other antibiotic agents; Z79.899 Other long term (current) drug therapy; J02.0 Streptococcal pharyngitis; R10.13 Epigastric pain

== ENCOUNTER → 2017-03-14 | Outpatient (REF) ==
[~2017-03-14] MED LIST changes: +**Note Patient Comment XX; +ALB2.5NEB NEB; +AQUA100OI TOP; +BUDE0.5S6 INH; +INSUHUMDS SC; +IPRASOL4 NEB; +LACT20EL GT; +LIDO5TD TD; +LOVE1INJ2 SC; +METO25TAB PO; +NYST10PW TOP; +OXYCO5TA PO; +PERF20NE2 INH; +SERT50TA PO
[2017-03-14 09:05] LABS: BASO # 0.1 K/mm3 (0.0-0.2); BASO % 1.2 % (0.0-1.0); EOS # 0.1 K/mm3 (0.0-0.50); EOS % 1.3 % (0.0-3.0); LARGE UNSTAINED CELL # 0.2 K/mm3 (0.0-0.4); LARGE UNSTAINED CELL % 3.2 % (0.0-4.0); LYMPH % 40.3 % (24.0-44.0); MEAN CORPUSCULAR HEMOGLOBIN 30.9 pg (27.0-33.0); MEAN CORPUSCULAR HGB CONC 33.1 g/dl (32.0-36.5); MEAN CORPUSCULAR VOLUME 93.6 fl (80.0-96.0); MONO # 0.3 K/mm3 (0.0-0.8); MONO % 5.6 % (0.0-5.0); NEUTROPHILS # 2.4 K/mm3 (1.8-7.7); NEUTROPHILS % 48.3 % (36.0-66.0); PLATELET COUNT, AUTOMATED 156 k/mm3 (150-450); RED CELL DISTRIBUTION WIDTH 15.2 % (11.5-14.5); WHITE BLOOD COUNT 4.9 K/mm3 (4.0-10.0)
[2017-03-14 09:26] LABS: ALBUMIN 2.6 GM/DL (3.2-5.2); ALBUMIN/GLOBULIN RATIO 0.63 (1.00-1.93); ALKALINE PHOSPHATASE 76 U/L (45-117); ALT/SGPT 31 U/L (12-78); ANION GAP 11 MEQ/L (8-16); AST/SGOT 41 U/L (15-37); BILIRUBIN,TOTAL 0.7 MG/DL (0.2-1.0); BLOOD UREA NITROGEN 11 MG/DL (7-18); CALCIUM LEVEL 8.5 MG/DL (8.8-10.2); CARBON DIOXIDE LEVEL 30 MEQ/L (21-32); CHLORIDE LEVEL 99 MEQ/L (98-107); CREATININE FOR GFR 0.92 MG/DL (0.55-1.02); GLOMERULAR FILTRATION RATE > 60.0 (>45); GLUCOSE, FASTING 96 MG/DL (80-110); POTASSIUM SERUM 2.8 MEQ/L (3.5-5.1); SODIUM LEVEL 140 MEQ/L (136-145); TOTAL PROTEIN 6.7 GM/DL (6.4-8.2)
== END ==
LOC: SKLAB7 08:00
PROVIDERS: ATTEND Family Medicine
DX: I50.9 Heart failure, unspecified (principal); D64.9 Anemia, unspecified; I63.40 Cerebral infarction due to embolism of unspecified cerebral artery

== ENCOUNTER → 2017-03-15 | Outpatient (REF) | LOC: SKLAB7 06:56 | PROVIDERS: ATTEND Family Medicine | DX: E87.6 Hypokalemia (principal) ==

== ENCOUNTER → 2017-03-29 | Outpatient (REF) ==
[~2017-03-29] MED LIST changes: -ABIL15TA2 PO; +ABIL1TAB11 PO; +ABIL1TAB12 PO; -ABIL5TAB5 PO; +ACET1TAB17 PO; +ARTI99.0 OU; -BACITAB3 PO; +HYDR-3363 PO; -HYDR25T PO; +INSULANT SC; +IPRASOL4 INH; +K-TA1TAB PO; +KEFL500C17 PO; -KEFL500C7 PO; +LACT10SO3 GT; +LACT10SO3 PO; -LACT20EL GT; +LEVA1TAB2 PO; -LEVA500T PO; +LEVAINH INH; +LEVO750T13 PO; -LEVO750T33 PO; +LIDO1OIN2 TOP; +MAGN500T5 PO; +METO1TAB87 PO; +METO25TA4 PO; -METO25TAB PO; +MULT1TAB10 PO; +NORT10CA2 PO; +OMEP40CA2 PO; +OXYC-517 PO; +PERC5TAB12 PO; -PERC5TAB6 PO; +POTA10CA PO; -PROA1AER INH; +PROAAER10 INH; -SMZ-800T PO; +SULF1TAB23 PO; +VENL37.52 PO; -VENL37CA PO; -XOPEAER INH; +ZYRT10CA PO
[2017-03-29 12:34] LABS: ANION GAP 8 MEQ/L (8-16); BLOOD UREA NITROGEN 11 MG/DL (7-18); CALCIUM LEVEL 8.7 MG/DL (8.8-10.2); CARBON DIOXIDE LEVEL 30 MEQ/L (21-32); CHLORIDE LEVEL 104 MEQ/L (98-107); CREATININE FOR GFR 0.87 MG/DL (0.55-1.02); GLOMERULAR FILTRATION RATE > 60.0 (>45); GLUCOSE, FASTING 182 MG/DL (80-110); POTASSIUM SERUM 3.2 MEQ/L (3.5-5.1); SODIUM LEVEL 142 MEQ/L (136-145)
== END ==
LOC: SKLAB7 11:17
PROVIDERS: ATTEND Family Medicine
DX: A40.0 Sepsis due to streptococcus, group A (principal)

== ENCOUNTER → 2017-04-04 | Outpatient (REF) | payer MEDICAID ==
[2017-04-04 19:00] LABS: BASO % 0.4 % (0.0-1.0); EOS # 0.1 K/mm3 (0.0-0.50); EOS % 2.4 % (0.0-3.0); LARGE UNSTAINED CELL # 0.1 K/mm3 (0.0-0.4); LARGE UNSTAINED CELL % 2.3 % (0.0-4.0); LYMPH # 1.4 K/mm3 (1.5-4.5); LYMPH % 27.9 % (24.0-44.0); MEAN CORPUSCULAR HEMOGLOBIN 30.4 pg (27.0-33.0); MEAN CORPUSCULAR HGB CONC 32.5 g/dl (32.0-36.5); MEAN CORPUSCULAR VOLUME 93.4 fl (80.0-96.0); MONO # 0.3 K/mm3 (0.0-0.8); MONO % 5.8 % (0.0-5.0); NEUTROPHILS # 2.8 K/mm3 (1.8-7.7); NEUTROPHILS % 61.1 % (36.0-66.0); PLATELET COUNT, AUTOMATED 170 k/mm3 (150-450); RED CELL DISTRIBUTION WIDTH 14.6 % (11.5-14.5); WHITE BLOOD COUNT 4.6 K/mm3 (4.0-10.0)
[2017-04-04 19:02] LABS: CALCIUM LEVEL 8.7 MG/DL (8.8-10.2); CREATININE FOR GFR 1.06 MG/DL (0.55-1.02); GLOMERULAR FILTRATION RATE 55.9 (>45); MAGNESIUM LEVEL 1.7 MG/DL (1.8-2.4); POTASSIUM SERUM 3.5 MEQ/L (3.5-5.1)
== END ==
LOC: M SFHCPLAZ 15:34
PROVIDERS: ATTEND Physician Assistant Medical
DX: L03.119 Cellulitis of unspecified part of limb (principal); N18.3 Chronic kidney disease, stage 3 (moderate)

== ENCOUNTER → 2017-04-11 | Outpatient (REF) | payer MEDICAID ==
[2017-04-11 18:21] LABS: ALBUMIN 3.1 GM/DL (3.2-5.2); ALBUMIN/GLOBULIN RATIO 0.66 (1.00-1.93); BILIRUBIN,TOTAL 0.5 MG/DL (0.2-1.0); CALCIUM LEVEL 9.2 MG/DL (8.8-10.2); CREATININE FOR GFR 1.02 MG/DL (0.55-1.02); GLOMERULAR FILTRATION RATE 58.5 (>45); MAGNESIUM LEVEL 2.2 MG/DL (1.8-2.4); POTASSIUM SERUM 3.9 MEQ/L (3.5-5.1); TOTAL PROTEIN 7.8 GM/DL (6.4-8.2)
== END ==
LOC: M SFHCPLAZ 14:19
PROVIDERS: ATTEND Physician Assistant Medical
DX: I50.30 Unspecified diastolic (congestive) heart failure (principal); R60.9 Edema, unspecified

== ENCOUNTER → 2017-04-17 | Outpatient (REF) | payer MEDICAID | LOC: M SFHCPLAZ 12:04 | PROVIDERS: ATTEND Physician Assistant Medical | DX: K72.90 Hepatic failure, unspecified without coma (principal) ==

== ENCOUNTER 2017-04-18 12:38 | Inpatient (IN) | payer MEDICAID ==
[~2017-04-18] VITALS: Ht 160 cm; Wt 109.5 kg
[~2017-04-18 12:38] MED LIST changes: -ARTI99.0 OU; -INSULANT SC; -IPRASOL4 INH; -K-TA1TAB PO; -LACT10SO3 PO; -LIDO1OIN2 TOP; -MAGN500T5 PO; -METO1TAB87 PO; -MULT1TAB10 PO; -NORT10CA2 PO; -OMEP40CA2 PO; -OXYC-517 PO; -POTA10CA PO; -ZYRT10CA PO
[2017-04-18] MEDS ORDERED: ZYRT10CA PO (13:06)
[2017-04-18 14:00] LABS: BASO % 0.5 % (0.0-1.0); EOS # 0.1 K/mm3 (0.0-0.50); LARGE UNSTAINED CELL # 0.1 K/mm3 (0.0-0.4); LARGE UNSTAINED CELL % 2.8 % (0.0-4.0); LYMPH # 1.5 K/mm3 (1.5-4.5); LYMPH % 37.2 % (24.0-44.0); MEAN CORPUSCULAR HEMOGLOBIN 29.6 pg (27.0-33.0); MEAN CORPUSCULAR HGB CONC 32.5 g/dl (32.0-36.5); MEAN CORPUSCULAR VOLUME 90.9 fl (80.0-96.0); MONO # 0.2 K/mm3 (0.0-0.8); MONO % 5.7 % (0.0-5.0); NEUTROPHILS % 50.9 % (36.0-66.0); PLATELET COUNT, AUTOMATED 185 k/mm3 (150-450); RED CELL DISTRIBUTION WIDTH 13.9 % (11.5-14.5); WHITE BLOOD COUNT 3.8 K/mm3 (4.0-10.0)
[2017-04-18 14:05] LABS: VENOUS BASE EXCESS 4.6 (-2.0-2.0); VENOUS O2 SATURATION 81.3 % (60.0-80.0); VENOUS PARTIAL PRESSURE O2 48.9 mmHg (30.0-50.0); VENOUS STANDARD HCO3 28.2 MEQ/L; VENOUS TOTAL CO2 32.6 MEQ/L (24.0-28.0)
[2017-04-18 14:20] LABS: INR 1.17
--- NOTE | 2017-04-18 14:21 | REP ---
CT of the brain without IV contrast: Comparisons are 02/11/2017 and 06/26/2012. There is no hemorrhage. There is no edema, mass effect or midline shift. There is decreased attenuation in the is subcortical white matter compatible with microvascular ischemia, unchanged. The cortical stripe is unremarkable. The ventricles and sulci are mildly enlarged compatible with mild diffuse volume loss, unchanged. Impression: There is no hemorrhage, acute infarct or mass. There is evidence for microvascular ischemia and mild chronic parenchymal volume loss. No significant change from the prior studies. Signed by Jim Del Toro MD 04/18/2017 02:12 P
--- NOTE | 2017-04-18 14:22 | REP ---
Portable chest, single AP view, the patient sitting, 01:59 p.m.: Comparison is 02/11/2017. There is diffuse bilateral interstitial coarsening, unchanged, compatible with chronic lung disease. The cardiac size is upper normal. The dudley, mediastinum, and bony thorax are unremarkable. There is a fracture in the surgical neck of the right humerus, unchanged. Impression: Chronic interstitial coarsening. No focal infiltrate, mass or effusion. Signed by Jim Del Toro MD 04/18/2017 02:14 P
[2017-04-18 14:42] LABS: ALBUMIN 2.7 GM/DL (3.2-5.2); ALKALINE PHOSPHATASE 66 U/L (45-117); ALT/SGPT 19 U/L (12-78); ANION GAP 9 MEQ/L (8-16); AST/SGOT 42 U/L (15-37); BILIRUBIN,DIRECT 0.2 MG/DL (0.0-0.2); BILIRUBIN,TOTAL 0.4 MG/DL (0.2-1.0); BLOOD UREA NITROGEN 15 MG/DL (7-18); CALCIUM LEVEL 8.9 MG/DL (8.8-10.2); CARBON DIOXIDE LEVEL 30 MEQ/L (21-32); CHLORIDE LEVEL 95 MEQ/L (98-107); CREATININE FOR GFR 1.17 MG/DL (0.55-1.02); GLOMERULAR FILTRATION RATE 49.9 (>45); GLUCOSE, FASTING 124 MG/DL (80-110); POTASSIUM SERUM 3.9 MEQ/L (3.5-5.1); SODIUM LEVEL 134 MEQ/L (136-145); TOTAL PROTEIN 7.2 GM/DL (6.4-8.2)
[2017-04-18] MEDS ORDERED: MULT1TAB10 PO (14:51)
[2017-04-18] MEDS ORDERED: K-TA1TAB PO (14:51)
[2017-04-18 14:53] LABS: METHADONE URINE NEGATIVE (NEGATIVE)
[2017-04-18] MEDS ORDERED: INSULANT SC (15:55)
[2017-04-18 16:00] LABS: MAGNESIUM LEVEL 1.8 MG/DL (1.8-2.4)
[2017-04-18] MEDS ORDERED: MAGN500T5 PO (16:58)
[2017-04-18] MEDS ORDERED: MILKSUS PO (16:58)
[2017-04-18] MEDS ORDERED: LACT10SO29 PO (16:58)
[2017-04-18] MEDS ORDERED: LIDO1OIN2 TOP (16:58)
[2017-04-18] MEDS ORDERED: OXYC-517 PO (16:58)
[2017-04-18] MEDS ORDERED: METO1TAB87 PO (16:58)
[2017-04-18] MEDS ORDERED: TYLE325T5 PO (16:58)
[2017-04-18] MEDS ORDERED: ARTI99.0 OU (16:58)
[2017-04-18] MEDS ORDERED: IPRASOL4 INH (16:58)
[2017-04-18] MEDS ORDERED: TIZA4CAP3 PO (16:58)
[2017-04-18] MEDS ORDERED: ZOFR20TA PO (16:58)
[2017-04-18] MEDS ORDERED: ALBU83IN INH (16:58)
[2017-04-18] MEDS ORDERED: HYDR-3363 PO (16:58)
[2017-04-18] MEDS ORDERED: OMEP40CA2 PO (16:58)
[2017-04-18] MEDS ORDERED: POLYVINYL ALCOHOL OPHTH SOLN 15 ML(LIQUITEARS) OU PRN (18:00)
[2017-04-18] MEDS ORDERED: MOM 30ML SUSPENSION UDC PO PRN (18:00)
[2017-04-18] MEDS ORDERED: METOPROLOL TART 25 MG TABLET PO SCH (18:00)
[2017-04-18] MEDS ORDERED: LACTULOSE 20 GM/30 ML SYRUP UD PO SCH (18:00)
[2017-04-18] MEDS ORDERED: ALBUTEROL SULFATE 2.5 MG/0.5 ML INH NEB SOLN INH PRN (18:00)
--- NOTE | 2017-04-18 18:40 | HPEPDOC ---
Medical History and Physical Date of Admission Apr 18, 2017 at 17:48 History and Physical PRIMARY CARE PROVIDER: Dr. Paul Torres ATTENDING: Dr. Rory Porter CHIEF COMPLAINT: Altered mental status HISTORY OF PRESENT ILLNESS: This is a 61-year-old female with known history of cirrhosis, hypothyroidism, schizophrenia, portal hypertension, hepatic encephalopathy, objective sleep apnea refusing to CPAP, CK D stage III, hypertension, hyperlipidemia, congestive heart failure, peripheral artery disease who presents complaining of altered mental status. He states she's been having trouble with word findings as well as her mentation over the past week. Patient has been seen by her primary doctor and has been placed on Keflex for lower extremity cellulitis. Patient states the area of erythema has significantly improved. Patient states she occasionally gets nauseous and has a nonproductive cough over otherwise feels well. Patient family have been concerned about her memory. PAST MEDICAL HISTORY: As per HPI PAST SURGICAL HISTORY: [place], bilateral SBO, cholecystectomy, ORIF right hip SOCIAL HISTORY: Denies tobacco, alcohol, illicit drug use. FAMILY HISTORY: Noncontributory ALLERGIES: Please see below. REVIEW OF SYSTEMS: HOME MEDICATIONS: Please see below. PHYSICAL EXAMINATION: Vitals: (see below) General: No acute distress, laying comfortably in bed. HEENT: Moist mucous membranes. Neck: No JVD or lymphadenopathy Cardiac: RRR, No murmurs Pulm: Diminished breath sounds bilateral bases. No wheezing, rhonchi Abd: NT/ND + BS. Obese Ext: 1+ pitting edema bilateral lower extremities. Distal pulses intact. No cyanosis. Chronic skin changes bilateral lower extremities. Neuro: Strength 5/5 BUE and BLE. CN 2-12 intact. F to N intact, although difficulty with the right upper extremity given her shoulder surgery in the past Negative Babinki. LABORATORY DATA: See below. IMAGING: CT Head 04/18/17 Impression: There is no hemorrhage, acute infarct or mass. There is evidence for microvascular ischemia and mild chronic parenchymal volume loss. No significant change from the prior studies. CXR 04/18/17 Impression: Chronic interstitial coarsening. No focal infiltrate, mass or effusion. MICROBIOLOGY: Please see below. ASSESSMENT/PLAN: 1. Altered mental status likely secondary to metabolic encephalopathy secondary to recent lower extremity cellulitis versus hepatic encephalopathy secondary to her underlying cirrhosis. Lactulose has been increased to 30 every 6 hours. We will continue doxycycline for 3 additional days. TSH, B12. CT head ago for acute pathology. If persistent consider MRI of the brain. 2. Lower extremity edema- does appear to be chronic. Lasix has been increased. 3. History of hypertension- continue home meds 4. History of CKD- creatinine at baseline. Avoid nephrotoxins. 5. Hypothyroidism- continue home meds 6. History of cirrhosis- with prior portal hypertension based on primary medical records. Diuretics have been increased. We'll need to have spironolactone considered as well. DVT prophylaxis- heparin subcutaneous Patient be signed out to Dr. German stevens and will be followed by the family medicine team. Vital Signs Vital Signs Date Time Temp Pulse Resp B/P (MAP) Pulse Ox O2 Delivery O2 Flow Rate FiO2 04/18/17 16:23 52 04/18/17 16:15 139/63 (88) 04/18/17 16:08 95 04/18/17 13:06 97.1 04/18/17 13:01 16 Room Air Laboratory Data Labs 24H Laboratory Tests 2 04/18/17 13:38: White Blood Count 3.8L, Red Blood Count 3.83L, Hemoglobin 11.3L, Hematocrit 34.8L, Mean Corpuscular Volume 90.9, Mean Corpuscular Hemoglobin 29.6, Mean Corpuscular Hemoglobin Concent 32.5, Red Cell Distribution Width 13.9, Platelet Count 185, Neutrophils (%) (Auto) 50.9, Lymphocytes (%) (Auto) 37.2, Monocytes ( %) (Auto) 5.7H, Eosinophils (%) (Auto) 3.0, Basophils (%) (Auto) 0.5, Neutrophils # (Auto) 2.0, Lymphocytes # (Auto) 1.5, Monocytes # (Auto) 0.2, Eosinophils # (Auto) 0.1, Basophils # (Auto) 0.0, Large Unclassified Cells % 2.8 , Large Unclassified Cells # 0.1, Prothrombin Time 15.1H, Prothromb Time International Ratio 1.17, Activated Partial Thromboplast Time 33.7, Urine Appearance CLEAR, Urine Color COLORLESS, Urine pH 7.0, Urine Specific [place] 1.003, Urine Protein NEGATIVE, Urine Glucose (UA) NEGATIVE, Urine Ketones NEGATIVE, Urine Urobilinogen 0.2, Urine Bilirubin NEGATIVE, Urine Leukocyte Esterase NEGATIVE, Urine Blood NEGATIVE, Urine Nitrite NEGATIVE, Urine WBC (Auto ) 0, Urine RBC (Auto) 0, Urine Hyaline Casts (Auto) 0, Urine Bacteria (Auto) NEGATIVE, Urine Squamous Epithelial Cells 0, Urine Sperm (Auto) , Blood Gas Bicarbonate Standard 28.2, Venous Blood pH 7.376, Venous Blood Partial Pressure CO2 54.0H, Venous Blood Partial Pressure O2 48.9, Venous Blood Total Carbon Dioxide 32.6H, Venous Blood HCO3 30.9H, Venous Blood Oxygen Saturation 81.3H, Venous Blood Base Excess 4.6H, Anion Gap 9, Glomerular Filtration Rate 49.9, Lactic Acid Level 1.8, Calcium Level 8.9, Magnesium Level 1.8, Aspartate Amino Transf (AST/SGOT) 42H, Alanine Aminotransferase (ALT/SGPT) 19, Alkaline Phosphatase 66, Total Bilirubin 0.4, Direct Bilirubin 0.2, Ammonia 38H, Total Creatine Kinase 49, Creatine Kinase MB 1.2, Creatine Kinase MB Relative Index 2.44, Troponin I < 0.02, B-Type Natriuretic Peptide 297H, Total Protein 7.2, Albumin 2.7L, Albumin/Globulin Ratio 0.60L, Thyroid Stimulating Hormone (TSH) 1.990, Salicylates Level < 1.7L, Urine Amphetamines Screen NEGATIVE, Urine Benzodiazepines Screen NEGATIVE, Urine Opiates Screen NEGATIVE, Urine Methadone Screen NEGATIVE, Acetaminophen Level < 2.0L, Urine Barbiturates Screen NEGATIVE , Urine Phencyclidine Screen NEGATIVE, Urine Cocaine Metabolite Screen NEGATIVE , Urine Cannabinoids Screen NEGATIVE, Ethyl Alcohol Level < 0.003 04/18/17 13:50: Bedside Glucose (Misc Panel) 121H CBC/BMP Laboratory Tests 04/18/17 13:38 Red Blood Count 3.83 L, Mean Corpuscular Volume 90.9, Mean Corpuscular Hemoglobin 29.6, Mean Corpuscular Hemoglobin Concent 32.5, Red Cell Distribution Width 13.9, Neutrophils (%) (Auto) 50.9, Lymphocytes (%) (Auto) 37.2, Monocytes (%) (Auto) 5.7 H, Eosinophils (%) (Auto) 3.0, Basophils (%) ( Auto) 0.5, Neutrophils # (Auto) 2.0, Lymphocytes # (Auto) 1.5, Monocytes # (Auto ) 0.2, Eosinophils # (Auto) 0.1, Basophils # (Auto) 0.0 Microbiology Microbiology 04/18/17 Blood Culture, Received Pending 04/18/17 Blood Culture, Received Pending 04/18/17 Urine Culture, Received Pending Home Medications Scheduled Albuterol/Ipratropium (Ipratropium [place]/Albut 0.5-2.5 (3) mg/3Ml) 1 Deidre Deidre, 1 DEIDRE INH BID Cetirizine HCl (Zyrtec Allergy) 10 Mg Cap, 10 MG PO DAILY Furosemide (Lasix) 40 Mg Tab, 40 MG PO BID Insulin Glargine (Lantus) 1 Units/0.01 Ml Susp, 10 UNITS SC QHS Lactulose (Lactulose) 10 Gm/15 Ml Deidre, 15 ML PO BID Levothyroxine Sodium (Synthroid) 50 Mcg Tab, 50 MCG PO DAILY Magnesium Oxide (Magnesium) 500 Mg Tab, 500 MG PO BID Metoprolol Tartrate (Metoprolol Tartrate) 25 Mg Tab, 25 MG PO Q6H 0600, 1200, 1800, 0000 Multivitamins (Multivitamin Adults) 1 Tab Tab, 1 TAB PO DAILY Omeprazole (Omeprazole) 40 Mg Cap, 40 MG PO DAILY Pantoprazole Sodium Sesquihydr (Protonix) 40 Mg Tab, 40 MG PO DAILY Potassium Chloride (K-Tab) 20 Meq Tab, 20 MEQ PO TID Scheduled PRN Acetaminophen (Tylenol) 325 Mg Tab, 650 MG PO Q4H PRN for PAIN Albuterol Sulfate (Albuterol Sulfate) 2.5 Mg/3 Ml Nebu, 2.5 MG INH Q2H PRN for SOB/WHEEZING Artificial Tears (Artificial Tears) 1.4 % Deidre, 1 DROP OU Q4H PRN for DRY EYES Hydroxyzine HCl (Hydroxyzine HCl) 25 Mg Tab, 25 MG PO TID PRN for ITCHING Lidocaine HCl (Lidocaine 5% Ointment) 1 Dose/35.44 Gm Oint, 1 DOSE TOP BID PRN for PAIN LUMBAR REGION Milk Of Magnesia (Milk of Magnesia) 1,200 Mg/15 Ml Farideh, 10 ML PO DAILY PRN for CONSTIPATION Ondansetron HCl (Zofran) 4 Mg Tab, 4 MG PO Q6H PRN for NAUSEA OR VOMITING Oxycodone HCl (Oxycodone HCl) 5 Mg Tab, 5 MG PO Q4H PRN for PAIN Tizanidine Hydrochloride (Tizanidine HCl) 4 Mg Cap, 4 MG PO TID PRN for SPASMS Allergies Coded Allergies: Quinolones (Verified Allergy, Severe, HIVES,DIFFICULTY BREATHING & CONFUSION WHILE ON CIPRO, 10/25/16) Ibuprofen (Verified Allergy, Intermediate, HIVES WITH IBUPROFEN ONLY, 06/28) IS ABLE TO TAKE BABY ASPIRIN Penicillins (Verified Allergy, Unknown, HIVES, 12/28/16) OSCAR VERMA MD Apr 18, 2017 18:40
--- NOTE | 2017-04-18 18:40 | REP ---
Bilateral lower extremity Duplex Doppler venous ultrasound: Real time compression and duplex Doppler interrogation of the bilateral lower extremity deep venous system is performed. Bilaterally, the common femoral, superficial femoral and popliteal veins are fully compressible with transducer pressure and demonstrate normal spontaneous and phasic flow, without evidence of deep venous thrombosis. Impression: No evidence of deep venous thrombosis of the bilateral lower extremity femoral popliteal venous system. Signed by Jim Calderon MD 04/18/2017 06:31 P
--- NOTE | 2017-04-18 19:12 | ECGEPIP ---
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
[2017-04-18 19:45] VITALS: BP 131/60
[2017-04-18] MEDS ORDERED: LEVEMIR (INSULIN DETEMIR) 1 UNITS/0.01ML SC SCH (21:00)
[2017-04-18] MEDS: POTASSIUM CHLORIDE 10 MEQ SR TABLET PO SCH (21:59)
[2017-04-18] MEDS: HEPARIN SOD (PORCINE) 5000 UNITS/ML VIAL SC SCH (22:00)
[2017-04-18] MEDS: FUROSEMIDE 40 MG/4 ML VIAL (J1940) IV SCH (22:00)
[2017-04-18] MEDS: ACETAMINOPHEN TAB 650MG DOSE (2X325MG) PO PRN (22:01)
[2017-04-18 23:57] VITALS: BP 104/51
[2017-04-19] MEDS: LACTULOSE 20 GM/30 ML SYRUP UD PO SCH ×5 (01:05→23:45)
[2017-04-19 04:04] VITALS: BP 112/54
[2017-04-19] MEDS: ACETAMINOPHEN TAB 650MG DOSE (2X325MG) PO PRN ×4 (04:13→22:31)
[2017-04-19 05:41] LABS: MEAN CORPUSCULAR HEMOGLOBIN 30.3 pg (27.0-33.0); MEAN CORPUSCULAR HGB CONC 33.6 g/dl (32.0-36.5); MEAN CORPUSCULAR VOLUME 90.4 fl (80.0-96.0); RED CELL DISTRIBUTION WIDTH 13.7 % (11.5-14.5); WHITE BLOOD COUNT 4.3 K/mm3 (4.0-10.0)
[2017-04-19 05:55] LABS: ALBUMIN 2.6 GM/DL (3.2-5.2); ALBUMIN/GLOBULIN RATIO 0.57 (1.00-1.93); BILIRUBIN,TOTAL 0.5 MG/DL (0.2-1.0); CALCIUM LEVEL 9.3 MG/DL (8.8-10.2); CREATININE FOR GFR 1.25 MG/DL (0.55-1.02); GLOMERULAR FILTRATION RATE 46.2 (>45); MAGNESIUM LEVEL 1.8 MG/DL (1.8-2.4); POTASSIUM SERUM 3.8 MEQ/L (3.5-5.1); TOTAL PROTEIN 7.2 GM/DL (6.4-8.2)
[2017-04-19] MEDS: LEVOTHYROXINE 50MCG TABLET (0.05MG) PO SCH (06:20)
[2017-04-19] MEDS: HEPARIN SOD (PORCINE) 5000 UNITS/ML VIAL SC SCH ×3 (06:20→21:18)
[2017-04-19 08:00] VITALS: BP 120/58
[2017-04-19] MEDS: POTASSIUM CHLORIDE 10 MEQ SR TABLET PO SCH ×3 (09:18→20:02)
[2017-04-19] MEDS: OMEPRAZOLE 20 MG CAP PO SCH (09:18)
[2017-04-19] MEDS: MULTIVITAMINS/MINERALS THERAP 1 TAB PO SCH (09:18)
[2017-04-19] MEDS: PANTOPRAZOLE 40MG TAB (PROTONIX) PO SCH (09:18)
[2017-04-19] MEDS: METOPROLOL TART 12.5 MG PER 1/2 TAB PO SCH ×2 (09:18→20:02)
[2017-04-19] MEDS: FUROSEMIDE 40 MG/4 ML VIAL (J1940) IV SCH (09:19)
[2017-04-19] MEDS: CETIRIZINE (ZyrTEC) 10 MG TAB PO SCH (09:37)
[2017-04-19 12:00] VITALS: BP 138/88
--- NOTE | 2017-04-19 12:48 | IPNPDOC ---
Subjective Date Seen The patient was seen on 04/19/17. Subjective Chief Complaint/HPI The patient is a 61-year-old female admitted with a reason for visit of Hepatic Encephalopathy. Events since last encounter She feels that her mental status is back to baseline, but c/o severe pain Constitutional: Denies: Chills, Fever Pulmonary: Denies: Dyspnea, Cough Cardiovascular: Denies: Chest Pain, Palpitations Gastrointestinal: Reports: Constipation, Denies: Nausea, Vomiting, Abdominal Pain Objective Physical Examination General Exam: Positive: Alert (sitting up in chair - no signs of distress upon my arrival), No Acute Distress Chest Exam: Positive: Clear to auscultation, Normal air movement Heart Exam: Positive: Rate Normal, Negative: Murmurs Abdomen Exam: Positive: Normal bowel sounds, Soft, Negative: Tenderness Extremity Exam: Negative: Edema Assessment /Plan Problems (1) Metabolic encephalopathy Response to Treatment: Improving Problem Text: Likely related to hepatic encephalopathy as well as excess narcotic Lactulose dose was increased and Oxycodone held Mental status has improved She is complaining of severe pain in her neck and legs which s the location of her chronic pain. She reports that at home she takes Percocet 5 mg tabs but over the last few days she was taking 10 mg at times although her script park snot say to take 10 mg. she was fired from the pain clinic for no-show per patient and Dr. Torres is arranging for her to see a pain specialist It should be noted that Dr. Torres's med list in w shows that she was on Oxycodone 5 mg q 6h prn. I will restart this and monitor mental status. I would not increase this. (2) Chronic pain Status: Chronic Problem Text: see above (3) Cirrhosis Status: Chronic Response to Treatment: Stable (4) Hepatic encephalopathy Status: Chronic Response to Treatment: Improving Problem Text: Lactulose dose increased (5) Diabetes type 2, controlled Status: Chronic Response to Treatment: Stable Problem Text: decrease Levemir to avoid hypoglycemia (6) RENEE on CPAP Status: Chronic (7) Diastolic CHF Status: Chronic Response to Treatment: Stable Problem Text: IV Lasix was initiated but creatinine went up. I will stop her Lasix for now since azotemia will worsen her hepatic encephalopathy (8) Acute kidney injury Response to Treatment: Worse Problem Text: stop IV Lasix Plan/VTE VTE Prophylaxis Ordered?: Yes (SQ heparin) VS, I&O, 24H, Fishbone Vital Signs/I&O Vital Signs Date Time Temp Pulse Resp B/P (MAP) Pulse Ox O2 Delivery O2 Flow Rate FiO2 04/19/17 09:18 69 120/58 04/19/17 08:00 97.6 18 97 Room Air I&O- Last 24 Hours up to 6 AM 04/19/17 06:00 Intake Total 700 ml Output Total 2650 ml Balance -1950 ml Laboratory Data 24H LABS Laboratory Tests 2 04/18/17 13:38: White Blood Count 3.8L, Red Blood Count 3.83L, Hemoglobin 11.3L, Hematocrit 34.8L, Mean Corpuscular Volume 90.9, Mean Corpuscular Hemoglobin 29.6, Mean Corpuscular Hemoglobin Concent 32.5, Red Cell Distribution Width 13.9, Platelet Count 185, Neutrophils (%) (Auto) 50.9, Lymphocytes (%) (Auto) 37.2, Monocytes ( %) (Auto) 5.7H, Eosinophils (%) (Auto) 3.0, Basophils (%) (Auto) 0.5, Neutrophils # (Auto) 2.0, Lymphocytes # (Auto) 1.5, Monocytes # (Auto) 0.2, Eosinophils # (Auto) 0.1, Basophils # (Auto) 0.0, Large Unclassified Cells % 2.8 , Large Unclassified Cells # 0.1, Prothrombin Time 15.1H, Prothromb Time International Ratio 1.17, Activated Partial Thromboplast Time 33.7, Urine Appearance CLEAR, Urine Color COLORLESS, Urine pH 7.0, Urine Specific [place] 1.003, Urine Protein NEGATIVE, Urine Glucose (UA) NEGATIVE, Urine Ketones NEGATIVE, Urine Urobilinogen 0.2, Urine Bilirubin NEGATIVE, Urine Leukocyte Esterase NEGATIVE, Urine Blood NEGATIVE, Urine Nitrite NEGATIVE, Urine WBC (Auto ) 0, Urine RBC (Auto) 0, Urine Hyaline Casts (Auto) 0, Urine Bacteria (Auto) NEGATIVE, Urine Squamous Epithelial Cells 0, Urine Sperm (Auto) , Blood Gas Bicarbonate Standard 28.2, Venous Blood pH 7.376, Venous Blood Partial Pressure CO2 54.0H, Venous Blood Partial Pressure O2 48.9, Venous Blood Total Carbon Dioxide 32.6H, Venous Blood HCO3 30.9H, Venous Blood Oxygen Saturation 81.3H, Venous Blood Base Excess 4.6H, Anion Gap 9, Glomerular Filtration Rate 49.9, Lactic Acid Level 1.8, Calcium Level 8.9, Magnesium Level 1.8, Aspartate Amino Transf (AST/SGOT) 42H, Alanine Aminotransferase (ALT/SGPT) 19, Alkaline Phosphatase 66, Total Bilirubin 0.4, Direct Bilirubin 0.2, Ammonia 38H, Total Creatine Kinase 49, Creatine Kinase MB 1.2, Creatine Kinase MB Relative Index 2.44, Troponin I < 0.02, B-Type Natriuretic Peptide 297H, Total Protein 7.2, Albumin 2.7L, Albumin/Globulin Ratio 0.60L, Thyroid Stimulating Hormone (TSH) 1.990, Salicylates Level < 1.7L, Urine Amphetamines Screen NEGATIVE, Urine Benzodiazepines Screen NEGATIVE, Urine Opiates Screen NEGATIVE, Urine Methadone Screen NEGATIVE, Acetaminophen Level < 2.0L, Urine Barbiturates Screen NEGATIVE , Urine Phencyclidine Screen NEGATIVE, Urine Cocaine Metabolite Screen NEGATIVE , Urine Cannabinoids Screen NEGATIVE, Ethyl Alcohol Level < 0.003 04/18/17 13:50: Bedside Glucose (Misc Panel) 121H 04/18/17 21:23: Bedside Glucose (Misc Panel) 116H 04/19/17 04:59: Anion Gap 9, Glomerular Filtration Rate 46.2, Calcium Level 9.3, Magnesium Level 1.8, Aspartate Amino Transf (AST/SGOT) 44H, Alanine Aminotransferase (ALT/ SGPT) 17, Alkaline Phosphatase 62, Total Bilirubin 0.5, Total Protein 7.2, Albumin 2.6L, Albumin/Globulin Ratio 0.57L, Blood Urea Nitrogen 18, Creatinine 1.25H, Sodium Level 141#, Potassium Level 3.8, Chloride Level 101, Carbon Dioxide Level 31 CBC/BMP Laboratory Tests 04/18/17 13:38 Red Blood Count 3.83 L, Mean Corpuscular Volume 90.9, Mean Corpuscular Hemoglobin 29.6, Mean Corpuscular Hemoglobin Concent 32.5, Red Cell Distribution Width 13.9, Neutrophils (%) (Auto) 50.9, Lymphocytes (%) (Auto) 37.2, Monocytes (%) (Auto) 5.7 H, Eosinophils (%) (Auto) 3.0, Basophils (%) ( Auto) 0.5, Neutrophils # (Auto) 2.0, Lymphocytes # (Auto) 1.5, Monocytes # (Auto ) 0.2, Eosinophils # (Auto) 0.1, Basophils # (Auto) 0.0 04/19/17 04:59 Red Blood Count 3.67 L, Mean Corpuscular Volume 90.4, Mean Corpuscular Hemoglobin 30.3, Mean Corpuscular Hemoglobin Concent 33.6, Red Cell Distribution Width 13.7, Calcium Level 9.3, Aspartate Amino Transf (AST/SGOT) 44 H, Alanine Aminotransferase (ALT/SGPT) 17, Alkaline Phosphatase 62, Total Bilirubin 0.5, Total Protein 7.2, Albumin 2.6 L Microbiology Microbiology 04/18/17 Blood Culture, Received Pending 04/18/17 Blood Culture, Received Pending 04/18/17 Urine Culture - Final, Complete Attending Note Attending Note patient with chronic pain and neuropathy. may improve with tricyclic antidepressant at low dose. would not go above 10mg or adjust upward very slowly due to chronic liver disease, with max dose of 25mg. ETHEL JOSEPH PA-C Apr 19, 2017 12:48 Rory Porter MD Apr 19, 2017 14:17
[2017-04-19] MEDS: oxyCODONE 5MG TAB PO PRN ×2 (14:16→19:44)
[2017-04-19 16:00] VITALS: BP 126/78
[2017-04-19 20:00] VITALS: BP 146/68
[2017-04-19] MEDS: NORTRIPTYLINE 10 MG CAP PO SCH (20:02)
[2017-04-19] MEDS: LEVEMIR (INSULIN DETEMIR) 1 UNITS/0.01ML SC SCH (21:19)
[2017-04-20] VITALS (7 sets, daily range): BP systolic 120–162; BP diastolic 52–83
[2017-04-20] MEDS: oxyCODONE 5MG TAB PO PRN ×4 (01:59→20:56)
[2017-04-20] MEDS: ACETAMINOPHEN TAB 650MG DOSE (2X325MG) PO PRN (04:56)
[2017-04-20 05:23] LABS: MEAN CORPUSCULAR HEMOGLOBIN 30.5 pg (27.0-33.0); MEAN CORPUSCULAR HGB CONC 33.7 g/dl (32.0-36.5); MEAN CORPUSCULAR VOLUME 90.4 fl (80.0-96.0); RED CELL DISTRIBUTION WIDTH 13.9 % (11.5-14.5); WHITE BLOOD COUNT 4.1 K/mm3 (4.0-10.0)
[2017-04-20 05:39] LABS: ALBUMIN 2.6 GM/DL (3.2-5.2); ALBUMIN/GLOBULIN RATIO 0.55 (1.00-1.93); BILIRUBIN,TOTAL 0.4 MG/DL (0.2-1.0); CALCIUM LEVEL 9.1 MG/DL (8.8-10.2); CREATININE FOR GFR 1.13 MG/DL (0.55-1.02); GLOMERULAR FILTRATION RATE 51.9 (>45); MAGNESIUM LEVEL 1.9 MG/DL (1.8-2.4); POTASSIUM SERUM 3.5 MEQ/L (3.5-5.1); TOTAL PROTEIN 7.3 GM/DL (6.4-8.2)
[2017-04-20] MEDS: LACTULOSE 20 GM/30 ML SYRUP UD PO SCH ×2 (05:42→12:08)
[2017-04-20] MEDS: HEPARIN SOD (PORCINE) 5000 UNITS/ML VIAL SC SCH ×3 (05:43→20:54)
[2017-04-20] MEDS: LEVOTHYROXINE 50MCG TABLET (0.05MG) PO SCH (05:43)
[2017-04-20] MEDS: ONDANSETRON 4MG/2ML VIAL (J2405) IV PRN (06:27)
[2017-04-20] MEDS: METOPROLOL TART 12.5 MG PER 1/2 TAB PO SCH ×2 (08:08→20:55)
[2017-04-20] MEDS: OMEPRAZOLE 20 MG CAP PO SCH (08:08)
[2017-04-20] MEDS: POTASSIUM CHLORIDE 10 MEQ SR TABLET PO SCH ×3 (08:09→20:54)
[2017-04-20] MEDS: CETIRIZINE (ZyrTEC) 10 MG TAB PO SCH (08:09)
[2017-04-20] MEDS: PANTOPRAZOLE 40MG TAB (PROTONIX) PO SCH (08:09)
[2017-04-20] MEDS: MULTIVITAMINS/MINERALS THERAP 1 TAB PO SCH (08:09)
[2017-04-20] MEDS: FUROSEMIDE 40 MG TAB PO SCH (17:17)
[2017-04-20] MEDS: ANALGESIC BALM CRM 120 GM TOP SCH (20:53)
[2017-04-20] MEDS: LACTULOSE 20 GM/30 ML SYRUP UD PO PRN (20:54)
[2017-04-20] MEDS: LEVEMIR (INSULIN DETEMIR) 1 UNITS/0.01ML SC SCH (20:54)
[2017-04-20] MEDS: NORTRIPTYLINE 10 MG CAP PO SCH (20:55)
[2017-04-21 02:00] VITALS: BP 121/61
--- NOTE | 2017-04-21 03:04 | IPNPDOC ---
Subjective Date Seen The patient was seen on 04/20/17. Subjective Chief Complaint/HPI The patient is a 61-year-old female admitted with a reason for visit of Hepatic Encephalopathy. Events since last encounter Patient complains of her lactulose, and inquires if the dosing can be adjusted. She notes copious loose stool. Constitutional: Denies: Chills, Fever Eyes: Reports: Vision change Pulmonary: Denies: Dyspnea, Cough Cardiovascular: Denies: Chest Pain, Palpitations Gastrointestinal: Reports: Abdominal Pain, Denies: Nausea, Vomiting Hematologic: Denies: Bruising, Bleeding Excessively Objective Physical Examination General Exam: Positive: Alert (sitting up in chair - no signs of distress upon my arrival), No Acute Distress Chest Exam: Positive: Clear to auscultation, Normal air movement Heart Exam: Positive: Rate Normal, Negative: Murmurs Abdomen Exam: Positive: Normal bowel sounds, Soft, Negative: Tenderness Extremity Exam: Negative: Edema Assessment /Plan Problems (1) Metabolic encephalopathy Response to Treatment: Improving Problem Text: Likely related to hepatic encephalopathy as well as excess narcotic Lactulose dose was increased and Oxycodone held Mental status has improved She is complaining of severe pain in her neck and legs which s the location of her chronic pain. She reports that at home she takes Percocet 5 mg tabs but over the last few days she was taking 10 mg at times although her script park snot say to take 10 mg. she was fired from the pain clinic for no-show per patient and Dr. Torres is arranging for her to see a pain specialist It should be noted that Dr. Torres's med list in [facility] shows that she was on Oxycodone 5 mg q 6h prn. I will restart this and monitor mental status. I would not increase this. (2) Chronic pain Status: Chronic Problem Text: see above (3) Cirrhosis Status: Chronic Response to Treatment: Stable (4) Hepatic encephalopathy Status: Chronic Response to Treatment: Improving Problem Text: Lactulose dose increased (5) Diabetes type 2, controlled Status: Chronic Response to Treatment: Stable Problem Text: decrease Levemir to avoid hypoglycemia (6) RENEE on CPAP Status: Chronic (7) Diastolic CHF Status: Chronic Response to Treatment: Stable Problem Text: IV Lasix was initiated but creatinine went up. I will stop her Lasix for now since azotemia will worsen her hepatic encephalopathy (8) Acute kidney injury Response to Treatment: Worse Problem Text: stop IV Lasix Plan/VTE VTE Prophylaxis Ordered?: Yes (SQ heparin) VS, I&O, 24H, Daryl Vital Signs/I&O Vital Signs Date Time Temp Pulse Resp B/P (MAP) Pulse Ox O2 Delivery O2 Flow Rate FiO2 04/21/17 02:00 99.3 73 20 121/61 (81) 94 Room Air I&O- Last 24 Hours up to 6 AM 04/21/17 06:00 Intake Total 1920 ml Output Total 2650 ml Balance -730 ml Laboratory Data 24H LABS Laboratory Tests 2 04/20/17 04:47: Anion Gap 10, Glomerular Filtration Rate 51.9, Blood Urea Nitrogen 19H, Creatinine 1.13H, Sodium Level 137, Potassium Level 3.5, Chloride Level 97L, Carbon Dioxide Level 30, Calcium Level 9.1, Aspartate Amino Transf (AST/SGOT) 33 , Alanine Aminotransferase (ALT/SGPT) 17, Alkaline Phosphatase 57, Total Bilirubin 0.4, Total Protein 7.3, Albumin 2.6L, Magnesium Level 1.9, Ammonia 45H , Albumin/Globulin Ratio 0.55L 04/20/17 19:42: Bedside Glucose (Misc Panel) 143H CBC/BMP Laboratory Tests 04/20/17 04:47 Red Blood Count 3.62 L, Mean Corpuscular Volume 90.4, Mean Corpuscular Hemoglobin 30.5, Mean Corpuscular Hemoglobin Concent 33.7, Red Cell Distribution Width 13.9, Calcium Level 9.1, Aspartate Amino Transf (AST/SGOT) 33 , Alanine Aminotransferase (ALT/SGPT) 17, Alkaline Phosphatase 57, Total Bilirubin 0.4, Total Protein 7.3, Albumin 2.6 L Microbiology Microbiology 04/18/17 Blood Culture - Preliminary, Resulted No Growth after 48 hours. All Specime... 04/18/17 Blood Culture - Preliminary, Resulted No Growth after 48 hours. All Specime... 04/18/17 Urine Culture - Final, Complete BRIE PAGE DO Apr 21, 2017 03:04
[2017-04-21] MEDS: oxyCODONE 5MG TAB PO PRN ×3 (03:15→22:54)
[2017-04-21] MEDS: LEVOTHYROXINE 50MCG TABLET (0.05MG) PO SCH (05:49)
[2017-04-21] MEDS: HEPARIN SOD (PORCINE) 5000 UNITS/ML VIAL SC SCH ×3 (05:50→21:33)
[2017-04-21 06:00] VITALS: BP 126/67
[2017-04-21 06:03] LABS: MEAN CORPUSCULAR HEMOGLOBIN 30.2 pg (27.0-33.0); MEAN CORPUSCULAR HGB CONC 33.3 g/dl (32.0-36.5); MEAN CORPUSCULAR VOLUME 90.7 fl (80.0-96.0); RED CELL DISTRIBUTION WIDTH 13.5 % (11.5-14.5); WHITE BLOOD COUNT 4.2 K/mm3 (4.0-10.0)
[2017-04-21 06:26] LABS: ALBUMIN 2.6 GM/DL (3.2-5.2); ALBUMIN/GLOBULIN RATIO 0.53 (1.00-1.93); BILIRUBIN,TOTAL 0.4 MG/DL (0.2-1.0); CALCIUM LEVEL 9.2 MG/DL (8.8-10.2); CREATININE FOR GFR 1.13 MG/DL (0.55-1.02); GLOMERULAR FILTRATION RATE 51.9 (>45); MAGNESIUM LEVEL 1.8 MG/DL (1.8-2.4); POTASSIUM SERUM 3.9 MEQ/L (3.5-5.1); TOTAL PROTEIN 7.5 GM/DL (6.4-8.2)
[2017-04-21] MEDS: ACETAMINOPHEN TAB 650MG DOSE (2X325MG) PO PRN (09:13)
[2017-04-21] MEDS: MULTIVITAMINS/MINERALS THERAP 1 TAB PO SCH (09:14)
[2017-04-21] MEDS: FUROSEMIDE 40 MG TAB PO SCH ×2 (09:14→16:36)
[2017-04-21] MEDS: CETIRIZINE (ZyrTEC) 10 MG TAB PO SCH (09:14)
[2017-04-21] MEDS: OMEPRAZOLE 20 MG CAP PO SCH (09:14)
[2017-04-21] MEDS: PANTOPRAZOLE 40MG TAB (PROTONIX) PO SCH (09:14)
[2017-04-21] MEDS: POTASSIUM CHLORIDE 10 MEQ SR TABLET PO SCH ×3 (09:15→21:32)
[2017-04-21] MEDS: METOPROLOL TART 12.5 MG PER 1/2 TAB PO SCH ×2 (09:16→21:34)
[2017-04-21] MEDS: ANALGESIC BALM CRM 120 GM TOP SCH ×3 (09:17→21:33)
[2017-04-21 10:00] VITALS: BP 145/93
[2017-04-21 14:00] VITALS: BP 153/74
[2017-04-21 18:00] VITALS: BP 154/81
--- NOTE | 2017-04-21 19:42 | IPNPDOC ---
Subjective Date Seen The patient was seen on 04/21/17. Subjective Chief Complaint/HPI The patient is a 61-year-old female admitted with a reason for visit of Hepatic Encephalopathy. Events since last encounter Ms. Klein is tolerating her lower dose of lactulose well. Today she complains of pain in her shoulders and neck; later admits to pain "everywhere." She further notes a bad headache, associated with nausea, earlier in the day; both symptoms were resolving by the time of our visit. One of her bowel movements earlier had some visible mucus. She is eager to go home. Constitutional: Denies: Chills, Fever ENT: Reports: Head Aches Skin: Denies: Rash Pulmonary: Denies: Dyspnea, Cough Cardiovascular: Denies: Chest Pain Gastrointestinal: Reports: Nausea, Diarrhea, Denies: Vomiting, Abdominal Pain, Constipation Genitourinary: Denies: Dysuria Hematologic: Denies: Bleeding Excessively Musculoskeletal: Reports: Neck Pain, Back Pain, Shoulder Pain Psych: Reports: Mood Normal Objective Physical Examination General Exam: Positive: Alert, No Acute Distress Chest Exam: Positive: Clear to auscultation, Normal air movement Heart Exam: Positive: Rate Normal, Negative: Murmurs Abdomen Exam: Positive: Normal bowel sounds, Soft, Negative: Tenderness Extremity Exam: Negative: Edema Neuro Exam: Positive: Normal Speech Psych Exam: Positive: Mental status NL, Mood NL Assessment /Plan Problems (1) Metabolic encephalopathy Status: Resolved Response to Treatment: Improving Problem Text: Likely related to hepatic encephalopathy as well as excess narcotic Lactulose dose was increased and Oxycodone held Mental status has improved She is complaining of severe pain in her neck and legs which s the location of her chronic pain. She reports that at home she takes Percocet 5 mg tabs but over the last few days she was taking 10 mg at times although her script park snot say to take 10 mg. she was fired from the pain clinic for no-show per patient and Dr. Torres is arranging for her to see a pain specialist It should be noted that Dr. Torres's med list in [facility] shows that she was on Oxycodone 5 mg q 6h prn. I will restart this and monitor mental status. I would not increase this. (2) Chronic pain Status: Chronic Problem Text: see above (3) Cirrhosis Status: Chronic Response to Treatment: Stable Problem Text: She is back on her home dose of Lasix as of yesterday, and is tolerating well (4) Hepatic encephalopathy Status: Chronic Response to Treatment: Improving Problem Text: Decreased her lactulose to the amount of lactulose necessary to cause 3 bowel movements daily (5) Diabetes type 2, controlled Status: Chronic Response to Treatment: Stable Problem Text: decrease Levemir to avoid hypoglycemia (6) RENEE on CPAP Status: Chronic (7) Diastolic CHF Status: Chronic Response to Treatment: Stable Problem Text: IV Lasix was initiated but creatinine went up. IV Lasix was held , and then her home PO Lasix was restarted. Stable now. (8) Acute kidney injury Status: Resolved Response to Treatment: Worse Problem Text: IV Lasix was held, with improvement in renal function Plan/VTE VTE Prophylaxis Ordered?: Yes (SQ heparin) VS, I&O, 24H, Fishbone Vital Signs/I&O Vital Signs Date Time Temp Pulse Resp B/P (MAP) Pulse Ox O2 Delivery O2 Flow Rate FiO2 04/21/17 18:00 99.9 76 20 154/81 (105) 94 Room Air I&O- Last 24 Hours up to 6 AM 04/21/17 06:00 Intake Total 2280 ml Output Total 3050 ml Balance -770 ml Laboratory Data 24H LABS Laboratory Tests 2 04/20/17 19:42: Bedside Glucose (Misc Panel) 143H 04/21/17 05:16: Anion Gap 10, Glomerular Filtration Rate 51.9, Blood Urea Nitrogen 14, Creatinine 1.13H, Sodium Level 138, Potassium Level 3.9, Chloride Level 100, Carbon Dioxide Level 28, Calcium Level 9.2, Aspartate Amino Transf (AST/SGOT) 33 , Alanine Aminotransferase (ALT/SGPT) 17, Alkaline Phosphatase 60, Total Bilirubin 0.4, Total Protein 7.5, Albumin 2.6L, Magnesium Level 1.8, Albumin/ Globulin Ratio 0.53L CBC/BMP Laboratory Tests 04/21/17 05:16 Red Blood Count 3.73 L, Mean Corpuscular Volume 90.7, Mean Corpuscular Hemoglobin 30.2, Mean Corpuscular Hemoglobin Concent 33.3, Red Cell Distribution Width 13.5, Calcium Level 9.2, Aspartate Amino Transf (AST/SGOT) 33 , Alanine Aminotransferase (ALT/SGPT) 17, Alkaline Phosphatase 60, Total Bilirubin 0.4, Total Protein 7.5, Albumin 2.6 L Microbiology Microbiology 04/18/17 Blood Culture - Preliminary, Resulted No Growth after 72 hours. All specime... 04/18/17 Blood Culture - Preliminary, Resulted No Growth after 72 hours. All specime... 04/18/17 Urine Culture - Final, Complete BRIE PAGE DO Apr 21, 2017 19:42
[2017-04-21] MEDS: NORTRIPTYLINE 10 MG CAP PO SCH (21:32)
[2017-04-21] MEDS: LEVEMIR (INSULIN DETEMIR) 1 UNITS/0.01ML SC SCH (21:34)
[2017-04-21 22:00] VITALS: BP 137/75
[2017-04-21] MEDS: ONDANSETRON 4MG/2ML VIAL (J2405) IV PRN (23:05)
[2017-04-22 02:00] VITALS: BP 143/72
[2017-04-22] MEDS: LEVOTHYROXINE 50MCG TABLET (0.05MG) PO SCH (05:06)
[2017-04-22] MEDS: HEPARIN SOD (PORCINE) 5000 UNITS/ML VIAL SC SCH ×3 (05:06→21:21)
[2017-04-22] MEDS: oxyCODONE 5MG TAB PO PRN ×3 (05:07→23:00)
[2017-04-22] MEDS: ONDANSETRON 4MG/2ML VIAL (J2405) IV PRN ×3 (05:41→22:54)
[2017-04-22 05:42] LABS: MEAN CORPUSCULAR HEMOGLOBIN 30.6 pg (27.0-33.0); MEAN CORPUSCULAR HGB CONC 34.1 g/dl (32.0-36.5); MEAN CORPUSCULAR VOLUME 89.7 fl (80.0-96.0); RED CELL DISTRIBUTION WIDTH 13.7 % (11.5-14.5); WHITE BLOOD COUNT 5.8 K/mm3 (4.0-10.0)
[2017-04-22 05:53] LABS: ALBUMIN 2.9 GM/DL (3.2-5.2); ALBUMIN/GLOBULIN RATIO 0.56 (1.00-1.93); BILIRUBIN,TOTAL 0.4 MG/DL (0.2-1.0); CALCIUM LEVEL 9.2 MG/DL (8.8-10.2); CREATININE FOR GFR 1.22 MG/DL (0.55-1.02); GLOMERULAR FILTRATION RATE 47.5 (>45); MAGNESIUM LEVEL 1.5 MG/DL (1.8-2.4); POTASSIUM SERUM 3.8 MEQ/L (3.5-5.1); TOTAL PROTEIN 8.1 GM/DL (6.4-8.2)
[2017-04-22 06:00] VITALS: BP 147/65
[2017-04-22] MEDS: METOPROLOL TART 12.5 MG PER 1/2 TAB PO SCH ×2 (09:58→21:20)
[2017-04-22] MEDS: FUROSEMIDE 40 MG TAB PO SCH ×2 (09:58→16:46)
[2017-04-22] MEDS: PANTOPRAZOLE 40MG TAB (PROTONIX) PO SCH (09:58)
[2017-04-22] MEDS: OMEPRAZOLE 20 MG CAP PO SCH (09:58)
[2017-04-22] MEDS: POTASSIUM CHLORIDE 10 MEQ SR TABLET PO SCH ×3 (09:59→21:19)
[2017-04-22] MEDS: CETIRIZINE (ZyrTEC) 10 MG TAB PO SCH (09:59)
[2017-04-22] MEDS: MULTIVITAMINS/MINERALS THERAP 1 TAB PO SCH (09:59)
[2017-04-22] MEDS: ANALGESIC BALM CRM 120 GM TOP SCH ×3 (10:01→21:21)
[2017-04-22] MEDS: LACTULOSE 20 GM/30 ML SYRUP UD PO PRN (10:15)
--- NOTE | 2017-04-22 11:34 | IPNPDOC ---
Subjective Date Seen The patient was seen on 04/22/17. Subjective Chief Complaint/HPI The patient is a 61-year-old female admitted with a reason for visit of Hepatic Encephalopathy. Events since last encounter Pt this morning c/o nausea with vomiting which worsened this morning. No BM yesterday or yet today. Did not tolerate breakfast. Nursing reports low Mag. General: Denies: Fatigue Constitutional: Denies: Chills, Fever Pulmonary: Denies: Dyspnea, Cough Cardiovascular: Denies: Chest Pain, Palpitations Gastrointestinal: Denies: Nausea, Vomiting Neurological: Denies: Weakness Psych: Reports: Mood Normal Objective Physical Examination General Exam: Positive: Alert, No Acute Distress Chest Exam: Positive: Clear to auscultation, Normal air movement Heart Exam: Positive: Rate Normal, Negative: Murmurs Abdomen Exam: Positive: Normal bowel sounds, Soft, Negative: Tenderness Extremity Exam: Negative: Edema Neuro Exam: Positive: Normal Speech Psych Exam: Positive: Mental status NL, Mood NL Assessment /Plan Problems (1) Fever Status: Acute Problem Text: 04/22 1400 101.9 h/o recurrent Gr A Strep sepsis (last 01/2017)-probable source of chronic BLE cellulitis; therefore, + cafazolin 1 TID, check BCX x 2, UCX cathed (2) Hepatic encephalopathy Status: Chronic Response to Treatment: Improving Problem Text: Mental status at baseline c adequate pain control 04/22 - She was given lactulose this am x1, non since once dose on 04/20, no BM yesterday, this could be cause of Nausea this am. Spoke with nursing, add back Xifaxan, lactulose needs to be 30 TID, HOLD for diarrhea, NOT prn constipation 04/21 Decreased her lactulose to the amount of lactulose necessary to cause 3 bowel movements daily 04/21 Likely related to hepatic encephalopathy as well as excess narcotic Lactulose dose was increased and Oxycodone held 04/20 NH3 45-baseline (3) Diabetes type 2, controlled Status: Chronic Response to Treatment: Stable Problem Text: decrease Levemir to avoid hypoglycemia (4) Chronic pain Status: Chronic Problem Text: see above (5) Cirrhosis Status: Chronic Response to Treatment: Stable Problem Text: She is back on her home dose of Lasix as of yesterday, and is tolerating well (6) RENEE on CPAP Status: Chronic (7) Diastolic CHF Status: Chronic Response to Treatment: Stable Problem Text: IV Lasix was initiated but creatinine went up. IV Lasix was held , and then her home PO Lasix was restarted. Stable now. (8) Acute kidney injury Status: Resolved Response to Treatment: Improving, Worse Problem Text: IV Lasix was held, with improvement in renal function Plan/VTE VTE Prophylaxis Ordered?: Yes (SQ heparin) VS, I&O, 24H, Fishbone Vital Signs/I&O Vital Signs Date Time Temp Pulse Resp B/P (MAP) Pulse Ox O2 Delivery O2 Flow Rate FiO2 04/22/17 06:00 99.3 86 20 147/65 (92) 96 Room Air I&O- Last 24 Hours up to 6 AM 04/22/17 06:00 Intake Total 2200 ml Output Total 2750 ml Balance -550 ml Laboratory Data 24H LABS Laboratory Tests 2 04/21/17 20:00: Bedside Glucose (Misc Panel) 145H 04/22/17 05:07: Anion Gap 11, Glomerular Filtration Rate 47.5, Blood Urea Nitrogen 14, Creatinine 1.22H, Sodium Level 134L, Potassium Level 3.8, Chloride Level 95L, Carbon Dioxide Level 28, Calcium Level 9.2, Aspartate Amino Transf (AST/SGOT) 37 , Alanine Aminotransferase (ALT/SGPT) 16, Alkaline Phosphatase 65, Total Bilirubin 0.4, Total Protein 8.1, Albumin 2.9L, Magnesium Level 1.5L, Albumin/ Globulin Ratio 0.56L CBC/BMP Laboratory Tests 04/22/17 05:07 Red Blood Count 4.13, Mean Corpuscular Volume 89.7, Mean Corpuscular Hemoglobin 30.6, Mean Corpuscular Hemoglobin Concent 34.1, Red Cell Distribution Width 13.7 , Calcium Level 9.2, Aspartate Amino Transf (AST/SGOT) 37, Alanine Aminotransferase (ALT/SGPT) 16, Alkaline Phosphatase 65, Total Bilirubin 0.4, Total Protein 8.1, Albumin 2.9 L Microbiology Microbiology 04/18/17 Blood Culture - Preliminary, Resulted No Growth after 72 hours. All specime... 04/18/17 Blood Culture - Preliminary, Resulted No Growth after 72 hours. All specime... 04/18/17 Urine Culture - Final, Complete TUNG MONTAÑO PA-C Apr 22, 2017 11:33 Paul Torres M.D. Apr 22, 2017 16:08
[2017-04-22] MEDS ORDERED: MAG SULF 1GM/100ML (MAG RUN) 1 GM in APPROPRIATE DILUENT 1 EA IV ONE (12:00)
[2017-04-22 14:00] VITALS: BP 159/73
[2017-04-22] MEDS: MAGNESIUM CHLORIDE 64 MG TABCR (SLO MAG) PO SCH (14:05)
[2017-04-22] MEDS: LACTULOSE 20 GM/30 ML SYRUP UD PO SCH ×3 (16:46→21:20)
[2017-04-22] MEDS: ACETAMINOPHEN TAB 650MG DOSE (2X325MG) PO PRN ×2 (16:47→21:38)
[2017-04-22] MEDS: ceFAZolin SOD 1 GM in D5W MINI-BAG PLUS 50 ML IV SCH (20:00)
[2017-04-22] MEDS: NORTRIPTYLINE 10 MG CAP PO SCH (21:20)
[2017-04-22] MEDS: rifAXIMin 550 MG TAB (XIFAXAN) PO SCH (21:20)
[2017-04-22] MEDS: LEVEMIR (INSULIN DETEMIR) 1 UNITS/0.01ML SC SCH (21:22)
[2017-04-22 22:00] VITALS: BP 121/59
[2017-04-23 02:00] VITALS: BP 117/61
[2017-04-23] MEDS: ceFAZolin SOD 1 GM in D5W MINI-BAG PLUS 50 ML IV SCH ×3 (04:18→19:46)
[2017-04-23] MEDS: ACETAMINOPHEN TAB 650MG DOSE (2X325MG) PO PRN (05:43)
[2017-04-23] MEDS: LEVOTHYROXINE 50MCG TABLET (0.05MG) PO SCH (05:43)
[2017-04-23] MEDS: HEPARIN SOD (PORCINE) 5000 UNITS/ML VIAL SC SCH ×2 (05:44→14:54)
[2017-04-23 06:00] VITALS: BP 131/63
[2017-04-23 06:40] LABS: ALBUMIN 2.7 GM/DL (3.2-5.2); ALBUMIN/GLOBULIN RATIO 0.52 (1.00-1.93); BILIRUBIN,TOTAL 0.4 MG/DL (0.2-1.0); CALCIUM LEVEL 8.7 MG/DL (8.8-10.2); CREATININE FOR GFR 1.34 MG/DL (0.55-1.02); GLOMERULAR FILTRATION RATE 42.7 (>45); MAGNESIUM LEVEL 1.9 MG/DL (1.8-2.4); POTASSIUM SERUM 3.8 MEQ/L (3.5-5.1); TOTAL PROTEIN 7.9 GM/DL (6.4-8.2)
[2017-04-23 07:12] LABS: MEAN CORPUSCULAR HEMOGLOBIN 30.2 pg (27.0-33.0); MEAN CORPUSCULAR HGB CONC 33.8 g/dl (32.0-36.5); MEAN CORPUSCULAR VOLUME 89.6 fl (80.0-96.0); RED CELL DISTRIBUTION WIDTH 13.9 % (11.5-14.5); WHITE BLOOD COUNT 3.2 K/mm3 (4.0-10.0)
[2017-04-23] MEDS: MAGNESIUM CHLORIDE 64 MG TABCR (SLO MAG) PO SCH (09:00)
[2017-04-23] MEDS: ANALGESIC BALM CRM 120 GM TOP SCH ×3 (09:00→20:00)
[2017-04-23] MEDS: OMEPRAZOLE 20 MG CAP PO SCH (09:47)
[2017-04-23] MEDS: PANTOPRAZOLE 40MG TAB (PROTONIX) PO SCH (09:47)
[2017-04-23] MEDS: MULTIVITAMINS/MINERALS THERAP 1 TAB PO SCH (09:48)
[2017-04-23] MEDS: CETIRIZINE (ZyrTEC) 10 MG TAB PO SCH (09:48)
[2017-04-23] MEDS: POTASSIUM CHLORIDE 10 MEQ SR TABLET PO SCH ×2 (09:48→15:14)
[2017-04-23] MEDS: rifAXIMin 550 MG TAB (XIFAXAN) PO SCH ×2 (09:48→19:58)
[2017-04-23] MEDS: FUROSEMIDE 40 MG TAB PO SCH (09:48)
[2017-04-23] MEDS: METOPROLOL TART 12.5 MG PER 1/2 TAB PO SCH ×2 (09:50→20:00)
[2017-04-23] MEDS: LACTULOSE 20 GM/30 ML SYRUP UD PO SCH ×3 (09:51→19:59)
[2017-04-23 10:00] VITALS: BP 107/57
--- NOTE | 2017-04-23 11:33 | IPNPDOC ---
Subjective Date Seen The patient was seen on 04/23/17. Subjective Chief Complaint/HPI The patient is a 61-year-old female admitted with a reason for visit of Hepatic Encephalopathy. Events since last encounter Pt developed N/v yesterday morning, followed by temp with txma 102.1, she cont to feel weak today, less nausea, no vomiting. Remains with low grade temp. She denies SOB/cough. Some nasal congestion. General: Reports: Fatigue Constitutional: Reports: Chills, Fever ENT: Denies: Head Aches, Ear Pain, Sinus Congestion, Sore Throat Pulmonary: Reports: Cough, Denies: Dyspnea Cardiovascular: Denies: Chest Pain, Palpitations Gastrointestinal: Reports: Nausea, Denies: Vomiting, Diarrhea Musculoskeletal: Reports: Back Pain Neurological: Reports: Weakness Psych: Reports: Mood Normal Objective Physical Examination General Exam: Positive: Alert, No Acute Distress ENT Exam: Positive: Mucous membr. moist/pink Chest Exam: Positive: Clear to auscultation, Normal air movement Heart Exam: Positive: Rate Normal, Negative: Murmurs Abdomen Exam: Positive: Normal bowel sounds, Soft, Negative: Tenderness Extremity Exam: Negative: Edema Neuro Exam: Positive: Normal Speech Psych Exam: Positive: Mental status NL, Mood NL Assessment /Plan Problems (1) Pancytopenia Status: Acute Problem Text: ? 2 infectious source, HIT 04/23 3.2K/11.7/86K (04/19 plt 181K); therefore, held heparin (2) Acute kidney injury Status: Resolved Response to Treatment: Improving, Worse Problem Text: 04/23 cr to 1.3, K 3.8, Na down to 133, SBP 110s on fur 40 BID, K 20 TID, Mg 64 QD ; therefore, held fur/decreased K to 20 QD (04/22 5 BMs, multiple today-NOT foul smelling ) baseline cr 1.0 (3) Fever Status: Acute Problem Text: D2 cefazolin 04/23 Tm 102 2300, patient tired from diarrhea but s pain-mabel no abdominal pain and no further nausea 04/22 1400 101.9 (new-onset) given h/o recurrent Gr A Strep sepsis (last 01/2017)- probable source of chronic BLE cellulitis; therefore, + cefazolin 1 TID, check BCX x 2, UCX cathed 04/23 CXR NAD 04/22 BCX P 04/22 UCX P (4) Hepatic encephalopathy Status: Chronic Response to Treatment: Improving Problem Text: Mental status at baseline c adequate pain control-NOT compliant c lactulose at home 04/23 NH3 25 04/22 - She was given lactulose this am x1, non since once dose on 04/20, no BM yesterday, this could be cause of Nausea this am. Spoke with nursing, add back Xifaxan, lactulose needs to be 30 TID, HOLD for diarrhea, NOT prn constipation 04/21 Decreased her lactulose to the amount of lactulose necessary to cause 3 bowel movements daily 04/21 Likely related to hepatic encephalopathy as well as excess narcotic Lactulose dose was increased and Oxycodone held 04/20 NH3 45-baseline (5) Diabetes type 2, controlled Status: Chronic Response to Treatment: Stable Problem Text: Good control on Levemir 6 qhs s hypos (HD Lantus 10 QHS) (6) Chronic pain Status: Chronic Problem Text: see above (7) Cirrhosis Status: Chronic Response to Treatment: Stable Problem Text: She is back on her home dose of Lasix as of yesterday, and is tolerating well (8) RENEE on CPAP Status: Chronic (9) Diastolic CHF Status: Chronic Response to Treatment: Stable Problem Text: as per TED Plan/VTE VTE Prophylaxis Ordered?: Yes (SQ heparin) VS, I&O, 24H, Fishbone Vital Signs/I&O Vital Signs Date Time Temp Pulse Resp B/P (MAP) Pulse Ox O2 Delivery O2 Flow Rate FiO2 04/23/17 09:50 80 133/64 04/23/17 06:00 100.1 24 93 Room Air I&O- Last 24 Hours up to 6 AM 04/23/17 06:00 Intake Total 1130 ml Output Total 700 ml Balance 430 ml Laboratory Data 24H LABS Laboratory Tests 2 04/23/17 05:50: Anion Gap 10, Glomerular Filtration Rate 42.7L, Blood Urea Nitrogen 17, Creatinine 1.34H, Sodium Level 133L, Potassium Level 3.8, Chloride Level 95L, Carbon Dioxide Level 28, Calcium Level 8.7L, Aspartate Amino Transf (AST/SGOT) 56H, Alanine Aminotransferase (ALT/SGPT) 22, Alkaline Phosphatase 65, Total Bilirubin 0.4, Total Protein 7.9, Albumin 2.7L, Magnesium Level 1.9, Ammonia 25 , Albumin/Globulin Ratio 0.52L CBC/BMP Laboratory Tests 04/23/17 05:50 Calcium Level 8.7 L, Aspartate Amino Transf (AST/SGOT) 56 H, Alanine Aminotransferase (ALT/SGPT) 22, Alkaline Phosphatase 65, Total Bilirubin 0.4, Total Protein 7.9, Albumin 2.7 L 04/23/17 06:55 Red Blood Count 3.87 L, Mean Corpuscular Volume 89.6, Mean Corpuscular Hemoglobin 30.2, Mean Corpuscular Hemoglobin Concent 33.8, Red Cell Distribution Width 13.9 Microbiology Microbiology 04/22/17 Blood Culture, Received Pending 04/22/17 Blood Culture, Received Pending 04/18/17 Blood Culture - Preliminary, Resulted No Growth after 72 hours. All specime... 04/18/17 Blood Culture - Preliminary, Resulted No Growth after 72 hours. All specime... 04/22/17 Urine Culture, Received Pending 04/18/17 Urine Culture - Final, Complete TUNG MONTAÑO PA-C Apr 23, 2017 11:33 Paul Torres M.D. Apr 23, 2017 16:07
[2017-04-23] MEDS: ONDANSETRON 4MG/2ML VIAL (J2405) IV PRN (11:52)
[2017-04-23] MEDS: oxyCODONE 5MG TAB PO PRN ×2 (11:55→19:58)
--- NOTE | 2017-04-23 13:49 | REP ---
PA and lateral chest: Comparisons are the portable chest examinations dated 04/18/2017 and 02/11/2070 and a remote PA and lateral plain film study dated 11/26/2015. There is a comparison chest CT dated 01/27/2017. There is chronic diffuse bilateral interstitial coarsening, unchanged from all prior studies, compatible with chronic lung disease. No superimposed acute infiltrates or effusions are identified. There are no masses or nodules. Cardiac size is normal. The dudley, mediastinum, and bony thorax are unremarkable except for an old right humeral neck fracture. Impression: Chronic diffuse interstitial coarsening. No new or acute cardiopulmonary findings. Signed by Jim Del Toro MD 04/23/2017 01:42 P
[2017-04-23 14:00] VITALS: BP 149/88
[2017-04-23 17:32] LABS: ADD MANUAL DIFFER YES; DIFF SLIDE NUMBER 296; MEAN CORPUSCULAR HEMOGLOBIN 29.8 pg (27.0-33.0); MEAN CORPUSCULAR HGB CONC 32.7 g/dl (32.0-36.5); RED CELL DISTRIBUTION WIDTH 13.8 % (11.5-14.5)
[2017-04-23 17:44] LABS: PLATELET COUNT, AUTOMATED 88 k/mm3 (150-450)
[2017-04-23 17:46] LABS: INR 1.27
[2017-04-23 18:22] LABS: BANDS 2 % (< 11)
[2017-04-23] MEDS: hydrOXYzine 25 MG TAB PO PRN (19:58)
[2017-04-23] MEDS: NORTRIPTYLINE 10 MG CAP PO SCH (19:58)
[2017-04-23] MEDS: LEVEMIR (INSULIN DETEMIR) 1 UNITS/0.01ML SC SCH (20:00)
[2017-04-23 22:00] VITALS: BP 138/76
[2017-04-24 02:00] VITALS: BP 124/61
[2017-04-24] MEDS: ceFAZolin SOD 1 GM in D5W MINI-BAG PLUS 50 ML IV SCH ×3 (03:02→21:38)
[2017-04-24] MEDS: oxyCODONE 5MG TAB PO PRN ×4 (03:03→21:35)
[2017-04-24] MEDS: LEVOTHYROXINE 50MCG TABLET (0.05MG) PO SCH (05:37)
[2017-04-24 06:00] VITALS: BP 121/62
[2017-04-24 06:34] LABS: BASO % 0.6 % (0.0-1.0); EOS % 1.3 % (0.0-3.0); LARGE UNSTAINED CELL # 0.3 K/mm3 (0.0-0.4); LARGE UNSTAINED CELL % 7.2 % (0.0-4.0); LYMPH # 1.5 K/mm3 (1.5-4.5); LYMPH % 33.2 % (24.0-44.0); MEAN CORPUSCULAR HEMOGLOBIN 30.3 pg (27.0-33.0); MEAN CORPUSCULAR HGB CONC 33.5 g/dl (32.0-36.5); MEAN CORPUSCULAR VOLUME 90.5 fl (80.0-96.0); MONO # 0.3 K/mm3 (0.0-0.8); MONO % 8.6 % (0.0-5.0); NEUTROPHILS # 1.8 K/mm3 (1.8-7.7); NEUTROPHILS % 49.1 % (36.0-66.0); PLATELET COUNT, AUTOMATED 100 k/mm3 (150-450); RED CELL DISTRIBUTION WIDTH 13.8 % (11.5-14.5); WHITE BLOOD COUNT 3.6 K/mm3 (4.0-10.0)
[2017-04-24 06:51] LABS: ALBUMIN 2.5 GM/DL (3.2-5.2); ALBUMIN/GLOBULIN RATIO 0.51 (1.00-1.93); BILIRUBIN,TOTAL 0.3 MG/DL (0.2-1.0); CALCIUM LEVEL 8.3 MG/DL (8.8-10.2); CREATININE FOR GFR 1.25 MG/DL (0.55-1.02); GLOMERULAR FILTRATION RATE 46.2 (>45); POTASSIUM SERUM 3.3 MEQ/L (3.5-5.1); TOTAL PROTEIN 7.4 GM/DL (6.4-8.2)
[2017-04-24] MEDS: LACTULOSE 20 GM/30 ML SYRUP UD PO SCH ×3 (09:00→21:00)
[2017-04-24] MEDS ORDERED: POTASSIUM CHLORIDE 10 MEQ SR TABLET PO SCH (09:00)
[2017-04-24] MEDS: OMEPRAZOLE 20 MG CAP PO SCH (09:32)
[2017-04-24] MEDS: PANTOPRAZOLE 40MG TAB (PROTONIX) PO SCH (09:33)
[2017-04-24] MEDS: MAGNESIUM CHLORIDE 64 MG TABCR (SLO MAG) PO SCH (09:33)
[2017-04-24] MEDS: rifAXIMin 550 MG TAB (XIFAXAN) PO SCH ×2 (09:34→21:36)
[2017-04-24] MEDS: ANALGESIC BALM CRM 120 GM TOP SCH ×3 (09:35→21:37)
[2017-04-24] MEDS: MULTIVITAMINS/MINERALS THERAP 1 TAB PO SCH (09:35)
[2017-04-24] MEDS: CETIRIZINE (ZyrTEC) 10 MG TAB PO SCH (09:35)
[2017-04-24] MEDS: METOPROLOL TART 12.5 MG PER 1/2 TAB PO SCH ×2 (09:37→21:35)
[2017-04-24 10:00] VITALS: BP 131/69
--- NOTE | 2017-04-24 11:48 | IPNPDOC ---
Subjective Date Seen The patient was seen on 04/24/17. Subjective Chief Complaint/HPI The patient is a 61-year-old female admitted with a reason for visit of Hepatic Encephalopathy. Events since last encounter Pt states she is about the same. Denies CP, SOB. Constitutional: Denies: Chills, Fever Pulmonary: Denies: Dyspnea Cardiovascular: Denies: Chest Pain, Palpitations Gastrointestinal: Denies: Nausea, Vomiting, Abdominal Pain Objective Physical Examination General Exam: Positive: Alert, No Acute Distress ENT Exam: Positive: Mucous membr. moist/pink Chest Exam: Positive: Clear to auscultation, Normal air movement Heart Exam: Positive: Rate Normal, Negative: Murmurs Abdomen Exam: Positive: Normal bowel sounds, Soft, Negative: Tenderness Extremity Exam: Negative: Edema Neuro Exam: Positive: Normal Speech Psych Exam: Positive: Mental status NL, Mood NL Assessment /Plan Problems (1) Pancytopenia Status: Acute Problem Text: Possibly due to infection - urine culture positive today (see below); HIT also possible 04/24 - WBC 3.6, Hgb 11.7, Plts 100 04/23 3.2K/11.7/86K (04/19 plt 181K); therefore, held heparin (2) Urinary tract infection Status: Acute Problem Text: Urine culture positive for 40,000 Klebsiella pneumoniae, sensitive to cefazolin, which she has been receiving for the past 2 days. WBCs decreased today - recheck tomorrow. (3) Acute kidney injury Status: Resolved Response to Treatment: Improving, Worse Problem Text: 04/24 - Creat 1.25, K 3.3, Na 137, Mg 2.0. Potassium 20 mEq increased from daily to BID dosing today. Furosemide remains on hold. (KES) 04/23 cr to 1.3, K 3.8, Na down to 133, SBP 110s on fur 40 BID, K 20 TID, Mg 64 QD ; therefore, held fur/decreased K to 20 QD (04/22 5 BMs, multiple today-NOT foul smelling ) baseline cr 1.0 (4) Fever Status: Acute Problem Text: 04/24 - Cefazolin D3. No fever in the last 24 hours. May be due to UTI - see below. 04/23 Tm 102 2300, patient tired from diarrhea but s pain-mabel no abdominal pain and no further nausea 04/22 1400 101.9 (new-onset) given h/o recurrent Gr A Strep sepsis (last 01/2017)- probable source of chronic BLE cellulitis; therefore, + cefazolin 1 TID, check BCX x 2, UCX cathed 04/23 CXR NAD 04/22 BCX P 04/22 UCX P (5) Hepatic encephalopathy Status: Chronic Response to Treatment: Improving Problem Text: Mental status is at baseline; taking lactulose here and tolerating well. Generally NOT compliant c lactulose at home 04/23 NH3 25 04/22 - She was given lactulose this am x1, non since once dose on 04/20, no BM yesterday, this could be cause of Nausea this am. Spoke with nursing, add back Xifaxan, lactulose needs to be 30 TID, HOLD for diarrhea, NOT prn constipation 04/21 Decreased her lactulose to the amount of lactulose necessary to cause 3 bowel movements daily 04/21 Likely related to hepatic encephalopathy as well as excess narcotic Lactulose dose was increased and Oxycodone held 04/20 NH3 45-baseline (6) Diabetes type 2, controlled Status: Chronic Response to Treatment: Stable Problem Text: Good control on Levemir 6 qhs s hypos (HD Lantus 10 QHS) (7) Chronic pain Status: Chronic Problem Text: see above (8) Cirrhosis Status: Chronic Response to Treatment: Stable Problem Text: Continue lactulose and rifaximin. (9) RENEE on CPAP Status: Chronic (10) Diastolic CHF Status: Chronic Response to Treatment: Stable Problem Text: as per TED Plan/VTE VTE Prophylaxis Ordered?: Yes (SQ heparin) Plan Family medicine attending note: I saw and examined Ms. Klein this afternoon; I discussed with KINA Topete and I agree with his note above with addition of problem#2 UTI. Patient's UTI has been covered by cefazolin, so will continue this for now - this could be the cause of her fever and leukopenia. She is feeling better today and platelets are improved today - will monitor overnight and recheck labs in the morning. (KES) VS, I&O, 24H, Fishbone Vital Signs/I&O Vital Signs Date Time Temp Pulse Resp B/P (MAP) Pulse Ox O2 Delivery O2 Flow Rate FiO2 04/24/17 10:04 17 04/24/17 09:37 66 121/62 04/24/17 09:34 Room Air 04/24/17 06:00 97.8 94 I&O- Last 24 Hours up to 6 AM 04/24/17 06:00 Intake Total 2380 ml Output Total 750 ml Balance 1630 ml Laboratory Data 24H LABS Laboratory Tests 2 04/23/17 16:55: Neutrophils 64, Band Neutrophils 2, Lymphocytes (Manual) 27, Monocytes (Manual) 6, Atypical Lymphocytes 1, Platelet Estimate DECREASED, Red Blood Cell Morphology NORMAL, Prothrombin Time 16.2H, Prothromb Time International Ratio 1.27, Activated Partial Thromboplast Time 38.4H, Fibrinogen 489H 04/24/17 06:19: White Blood Count 3.6L, Red Blood Count 3.87L, Hemoglobin 11.7L, Hematocrit 35.0L, Mean Corpuscular Volume 90.5, Mean Corpuscular Hemoglobin 30.3, Mean Corpuscular Hemoglobin Concent 33.5, Red Cell Distribution Width 13.8, Platelet Count 100L, Neutrophils (%) (Auto) 49.1, Lymphocytes (%) (Auto) 33.2, Monocytes (%) (Auto) 8.6H, Eosinophils (%) (Auto) 1.3, Basophils (%) (Auto) 0.6, Neutrophils # (Auto) 1.8, Lymphocytes # (Auto) 1.5, Monocytes # (Auto) 0.3, Eosinophils # (Auto) 0.0, Basophils # (Auto) 0.0, Large Unclassified Cells % 7.2H, Large Unclassified Cells # 0.3, Anion Gap 8, Glomerular Filtration Rate 46.2, Blood Urea Nitrogen 19H, Creatinine 1.25H, Sodium Level 137, Potassium Level 3.3L, Chloride Level 102, Carbon Dioxide Level 27, Calcium Level 8.3L, Aspartate Amino Transf (AST/SGOT) 50H, Alanine Aminotransferase (ALT/SGPT) 20, Alkaline Phosphatase 61, Total Bilirubin 0.3, Total Protein 7.4, Albumin 2.5L, Magnesium Level 2.0, Albumin/Globulin Ratio 0.51L CBC/BMP Laboratory Tests 04/23/17 16:55 Red Blood Count 4.38, Mean Corpuscular Volume 91.0, Mean Corpuscular Hemoglobin 29.8, Mean Corpuscular Hemoglobin Concent 32.7, Red Cell Distribution Width 13.8 04/24/17 06:19 Red Blood Count 3.87 L, Mean Corpuscular Volume 90.5, Mean Corpuscular Hemoglobin 30.3, Mean Corpuscular Hemoglobin Concent 33.5, Red Cell Distribution Width 13.8, Neutrophils (%) (Auto) 49.1, Lymphocytes (%) (Auto) 33.2, Monocytes (%) (Auto) 8.6 H, Eosinophils (%) (Auto) 1.3, Basophils (%) ( Auto) 0.6, Neutrophils # (Auto) 1.8, Lymphocytes # (Auto) 1.5, Monocytes # (Auto ) 0.3, Eosinophils # (Auto) 0.0, Basophils # (Auto) 0.0, Calcium Level 8.3 L, Aspartate Amino Transf (AST/SGOT) 50 H, Alanine Aminotransferase (ALT/SGPT) 20, Alkaline Phosphatase 61, Total Bilirubin 0.3, Total Protein 7.4, Albumin 2.5 L Microbiology Microbiology 04/22/17 Blood Culture - Preliminary, Resulted No growth after 24 hours . All specim... 04/22/17 Blood Culture - Preliminary, Resulted No growth after 24 hours . All specim... 04/18/17 Blood Culture - Final, Complete NO GROWTH AFTER 5 DAYS 04/18/17 Blood Culture - Final, Complete NO GROWTH AFTER 5 DAYS 04/22/17 Urine Culture - Final, Complete Klebsiella Pneumoniae 04/18/17 Urine Culture - Final, Complete Elmer Pfeiffer RPA-Joao Apr 24, 2017 11:48 FRANCINE LUCAS MD Apr 24, 2017 14:39
[2017-04-24 14:00] VITALS: BP 131/72
[2017-04-24] MEDS: LEVEMIR (INSULIN DETEMIR) 1 UNITS/0.01ML SC SCH (21:00)
[2017-04-24] MEDS: NORTRIPTYLINE 10 MG CAP PO SCH (21:35)
[2017-04-24] MEDS: POTASSIUM CHLORIDE 10 MEQ SR TABLET PO SCH (21:36)
[2017-04-24 22:00] VITALS: BP 138/68
[2017-04-25] VITALS (7 sets, daily range): BP systolic 122–148; BP diastolic 58–67
[2017-04-25] MEDS: hydrOXYzine 25 MG TAB PO PRN ×2 (03:15→22:02)
[2017-04-25] MEDS: oxyCODONE 5MG TAB PO PRN ×4 (03:15→23:08)
[2017-04-25] MEDS: ceFAZolin SOD 1 GM in D5W MINI-BAG PLUS 50 ML IV SCH ×3 (03:16→22:02)
[2017-04-25] MEDS: LEVOTHYROXINE 50MCG TABLET (0.05MG) PO SCH (06:00)
[2017-04-25 06:42] LABS: BASO % 0.5 % (0.0-1.0); EOS % 1.6 % (0.0-3.0); LARGE UNSTAINED CELL # 0.2 K/mm3 (0.0-0.4); LARGE UNSTAINED CELL % 6.5 % (0.0-4.0); LYMPH # 1.5 K/mm3 (1.5-4.5); MEAN CORPUSCULAR HEMOGLOBIN 29.8 pg (27.0-33.0); MEAN CORPUSCULAR HGB CONC 33.1 g/dl (32.0-36.5); MEAN CORPUSCULAR VOLUME 89.9 fl (80.0-96.0); MONO # 0.2 K/mm3 (0.0-0.8); MONO % 6.3 % (0.0-5.0); NEUTROPHILS # 1.5 K/mm3 (1.8-7.7); NEUTROPHILS % 45.1 % (36.0-66.0); RED CELL DISTRIBUTION WIDTH 13.7 % (11.5-14.5); WHITE BLOOD COUNT 3.2 K/mm3 (4.0-10.0)
[2017-04-25 06:49] LABS: PLATELET COUNT, AUTOMATED 95 k/mm3 (150-450)
[2017-04-25 07:11] LABS: ALBUMIN 2.3 GM/DL (3.2-5.2); ALBUMIN/GLOBULIN RATIO 0.49 (1.00-1.93); BILIRUBIN,TOTAL 0.2 MG/DL (0.2-1.0); CALCIUM LEVEL 8.1 MG/DL (8.8-10.2); CREATININE FOR GFR 1.15 MG/DL (0.55-1.02); GLOMERULAR FILTRATION RATE 50.9 (>45); MAGNESIUM LEVEL 2.1 MG/DL (1.8-2.4); POTASSIUM SERUM 3.8 MEQ/L (3.5-5.1)
[2017-04-25] MEDS: MULTIVITAMINS/MINERALS THERAP 1 TAB PO SCH (10:09)
[2017-04-25] MEDS: LACTULOSE 20 GM/30 ML SYRUP UD PO SCH ×3 (10:09→22:01)
[2017-04-25] MEDS: POTASSIUM CHLORIDE 10 MEQ SR TABLET PO SCH ×2 (10:09→22:02)
[2017-04-25] MEDS: MAGNESIUM CHLORIDE 64 MG TABCR (SLO MAG) PO SCH (10:10)
[2017-04-25] MEDS: METOPROLOL TART 12.5 MG PER 1/2 TAB PO SCH ×2 (10:10→22:04)
[2017-04-25] MEDS: PANTOPRAZOLE 40MG TAB (PROTONIX) PO SCH (10:10)
[2017-04-25] MEDS: rifAXIMin 550 MG TAB (XIFAXAN) PO SCH ×2 (10:11→22:02)
[2017-04-25] MEDS: OMEPRAZOLE 20 MG CAP PO SCH (10:11)
[2017-04-25] MEDS: ANALGESIC BALM CRM 120 GM TOP SCH ×3 (10:11→22:06)
[2017-04-25] MEDS: CETIRIZINE (ZyrTEC) 10 MG TAB PO SCH (10:11)
--- NOTE | 2017-04-25 11:20 | IPNPDOC ---
Subjective Date Seen The patient was seen on 04/25/17. Subjective Chief Complaint/HPI The patient is a 61-year-old female admitted with a reason for visit of Hepatic Encephalopathy. Events since last encounter Pt this morning is c/o pain in her L leg and buttocks. She states that the medication she is on just isn't working for her pain right now. She really wants to get home. General: Reports: Fatigue Constitutional: Denies: Chills, Fever Pulmonary: Denies: Dyspnea, Cough Cardiovascular: Denies: Chest Pain, Palpitations Gastrointestinal: Denies: Nausea, Vomiting, Constipation Neurological: Reports: Weakness Psych: Reports: Mood Normal Objective Physical Examination General Exam: Positive: Alert, No Acute Distress ENT Exam: Positive: Mucous membr. moist/pink Chest Exam: Positive: Clear to auscultation, Normal air movement Heart Exam: Positive: Rate Normal, Normal S1, Normal S2, Negative: Murmurs Abdomen Exam: Positive: Normal bowel sounds, Soft, Negative: Tenderness Extremity Exam: Negative: Edema Neuro Exam: Positive: Normal Speech Psych Exam: Positive: Mental status NL, Mood NL Assessment /Plan Problems (1) Chronic pain Status: Chronic Problem Text: mainly 2 lumbar DJD 04/11/17 [facility] referral faxed s response yet-will attempt to consult inpx to attempt interventional rx rather than using as much narcotics which contribute to patient's recurrent HE (2) Pancytopenia Status: Acute Problem Text: favor 2 infection, +/- HIT c baseline low 2 ESLD 04/25- worse today-3.2, 10.9, 95K 04/24 Possibly due to infection - urine culture positive today (see below); HIT also possible 04/24 - WBC 3.6, Hgb 11.7, Plts 100 04/23 3.2K/11.7/86K (04/19 plt 181K); therefore, held heparin (3) Urinary tract infection Status: Acute Problem Text: rx as per fever (4) Acute kidney injury Status: Resolved Response to Treatment: Improving, Worse Problem Text: 04/25 21/1.2, 3.8, 2.1 04/24 - Creat 1.25, K 3.3, Na 137, Mg 2.0. Potassium 20 mEq increased from daily to BID dosing today. Furosemide remains on hold. (KES) 04/23 cr to 1.3, K 3.8, Na down to 133, SBP 110s on fur 40 BID, K 20 TID, Mg 64 QD ; therefore, held fur/decreased K to 20 QD (04/22 5 BMs, multiple today-NOT foul smelling ) baseline cr 1.0 (5) Fever Status: Resolved Problem Text: 04/24 - Cefazolin D3. No fever in the last 24 hours. May be due to UTI - see below. 04/23 Tm 102 2300, patient tired from diarrhea but s pain-mabel no abdominal pain and no further nausea 04/22 1400 101.9 (new-onset) given h/o recurrent Gr A Strep sepsis (last 01/2017)- probable source of chronic BLE cellulitis; therefore, + cefazolin 1 TID, check BCX x 2, UCX cathed 04/23 CXR NAD 04/22 BCX P 04/22 UCX K. pneumonia 40K sens to cefazolin (6) Hepatic encephalopathy Status: Chronic Response to Treatment: Improving Problem Text: Mental status is at baseline; taking lactulose here and tolerating well. Generally NOT compliant c lactulose at home 04/23 NH3 25 04/22 - She was given lactulose this am x1, non since once dose on 04/20, no BM yesterday, this could be cause of Nausea this am. Spoke with nursing, add back Xifaxan, lactulose needs to be 30 TID, HOLD for diarrhea, NOT prn constipation 04/21 Decreased her lactulose to the amount of lactulose necessary to cause 3 bowel movements daily 04/21 Likely related to hepatic encephalopathy as well as excess narcotic Lactulose dose was increased and Oxycodone held 04/20 NH3 45-baseline (7) Diabetes type 2, controlled Status: Chronic Response to Treatment: Stable Problem Text: Good control on Levemir 6 qhs s hypos (HD Lantus 10 QHS) (8) Cirrhosis Status: Chronic Response to Treatment: Stable Problem Text: Continue lactulose and rifaximin. (9) RENEE on CPAP Status: Chronic (10) Diastolic CHF Status: Chronic Response to Treatment: Stable Problem Text: as per TED Plan/VTE VTE Prophylaxis Ordered?: Yes (SQ heparin) Plan Therapy: PT VS, I&O, 24H, Fishbone Vital Signs/I&O Vital Signs Date Time Temp Pulse Resp B/P (MAP) Pulse Ox O2 Delivery O2 Flow Rate FiO2 04/25/17 10:10 73 122/65 04/25/17 10:00 97.6 18 96 Room Air I&O- Last 24 Hours up to 6 AM 04/25/17 06:00 Intake Total 2240 ml Output Total 700 ml Balance 1540 ml Laboratory Data 24H LABS Laboratory Tests 2 04/24/17 20:46: Bedside Glucose (Misc Panel) 173H 04/25/17 05:45: White Blood Count 3.2L, Red Blood Count 3.67L, Hemoglobin 10.9L, Hematocrit 33.0L, Mean Corpuscular Volume 89.9, Mean Corpuscular Hemoglobin 29.8, Mean Corpuscular Hemoglobin Concent 33.1, Red Cell Distribution Width 13.7, Platelet Count 95L, Neutrophils (%) (Auto) 45.1, Lymphocytes (%) (Auto) 40.0, Monocytes ( %) (Auto) 6.3H, Eosinophils (%) (Auto) 1.6, Basophils (%) (Auto) 0.5, Neutrophils # (Auto) 1.5L, Lymphocytes # (Auto) 1.5, Monocytes # (Auto) 0.2, Eosinophils # (Auto) 0.0, Basophils # (Auto) 0.0, Large Unclassified Cells % 6.5H, Large Unclassified Cells # 0.2, Anion Gap 10, Glomerular Filtration Rate 50.9, Blood Urea Nitrogen 21H, Creatinine 1.15H, Sodium Level 139, Potassium Level 3.8, Chloride Level 105, Carbon Dioxide Level 24, Calcium Level 8.1L, Aspartate Amino Transf (AST/SGOT) 65H, Alanine Aminotransferase (ALT/SGPT) 21, Alkaline Phosphatase 63, Total Bilirubin 0.2, Total Protein 7.0, Albumin 2.3L, Magnesium Level 2.1, Albumin/Globulin Ratio 0.49L CBC/BMP Laboratory Tests 04/25/17 05:45 Red Blood Count 3.67 L, Mean Corpuscular Volume 89.9, Mean Corpuscular Hemoglobin 29.8, Mean Corpuscular Hemoglobin Concent 33.1, Red Cell Distribution Width 13.7, Neutrophils (%) (Auto) 45.1, Lymphocytes (%) (Auto) 40.0, Monocytes (%) (Auto) 6.3 H, Eosinophils (%) (Auto) 1.6, Basophils (%) ( Auto) 0.5, Neutrophils # (Auto) 1.5 L, Lymphocytes # (Auto) 1.5, Monocytes # ( Auto) 0.2, Eosinophils # (Auto) 0.0, Basophils # (Auto) 0.0, Calcium Level 8.1 L , Aspartate Amino Transf (AST/SGOT) 65 H, Alanine Aminotransferase (ALT/SGPT) 21 , Alkaline Phosphatase 63, Total Bilirubin 0.2, Total Protein 7.0, Albumin 2.3 L Microbiology Microbiology 04/22/17 Blood Culture - Preliminary, Resulted No Growth after 48 hours. All Specime... 04/22/17 Blood Culture - Preliminary, Resulted No Growth after 48 hours. All Specime... 04/18/17 Blood Culture - Final, Complete NO GROWTH AFTER 5 DAYS 04/18/17 Blood Culture - Final, Complete NO GROWTH AFTER 5 DAYS 04/22/17 Urine Culture - Final, Complete Klebsiella Pneumoniae 04/18/17 Urine Culture - Final, Complete TUNG MONTAÑO PA-C Apr 25, 2017 11:20 Paul Torres M.D. Apr 25, 2017 15:52
[2017-04-25] MEDS: NORTRIPTYLINE 10 MG CAP PO SCH (22:04)
[2017-04-25] MEDS: LEVEMIR (INSULIN DETEMIR) 1 UNITS/0.01ML SC SCH (22:05)
[2017-04-26] MEDS: LEVOTHYROXINE 50MCG TABLET (0.05MG) PO SCH (04:53)
[2017-04-26] MEDS: oxyCODONE 5MG TAB PO PRN ×3 (04:53→20:18)
[2017-04-26] MEDS: ceFAZolin SOD 1 GM in D5W MINI-BAG PLUS 50 ML IV SCH (04:54)
[2017-04-26] MEDS: ANALGESIC BALM CRM 120 GM TOP SCH ×3 (04:55→20:16)
[2017-04-26 06:00] VITALS: BP 145/76
[2017-04-26 06:53] LABS: BASO % 0.6 % (0.0-1.0); EOS # 0.1 K/mm3 (0.0-0.50); EOS % 2.6 % (0.0-3.0); LARGE UNSTAINED CELL # 0.2 K/mm3 (0.0-0.4); LARGE UNSTAINED CELL % 4.1 % (0.0-4.0); LYMPH # 1.6 K/mm3 (1.5-4.5); LYMPH % 41.5 % (24.0-44.0); MEAN CORPUSCULAR HEMOGLOBIN 30.3 pg (27.0-33.0); MEAN CORPUSCULAR HGB CONC 33.6 g/dl (32.0-36.5); MEAN CORPUSCULAR VOLUME 90.1 fl (80.0-96.0); MONO # 0.2 K/mm3 (0.0-0.8); MONO % 6.3 % (0.0-5.0); NEUTROPHILS # 1.6 K/mm3 (1.8-7.7); NEUTROPHILS % 44.9 % (36.0-66.0); PLATELET COUNT, AUTOMATED 123 k/mm3 (150-450); RED CELL DISTRIBUTION WIDTH 13.9 % (11.5-14.5); WHITE BLOOD COUNT 3.6 K/mm3 (4.0-10.0)
[2017-04-26 07:24] LABS: ALBUMIN 2.4 GM/DL (3.2-5.2); ALBUMIN/GLOBULIN RATIO 0.53 (1.00-1.93); ALKALINE PHOSPHATASE 68 U/L (45-117); ALT/SGPT 28 U/L (12-78); ANION GAP 9 MEQ/L (8-16); AST/SGOT 83 U/L (15-37); BILIRUBIN,TOTAL 0.2 MG/DL (0.2-1.0); BLOOD UREA NITROGEN 17 MG/DL (7-18); CALCIUM LEVEL 8.6 MG/DL (8.8-10.2); CARBON DIOXIDE LEVEL 24 MEQ/L (21-32); CHLORIDE LEVEL 106 MEQ/L (98-107); CREATININE FOR GFR 0.96 MG/DL (0.55-1.02); GLOMERULAR FILTRATION RATE > 60.0 (>45); GLUCOSE, FASTING 113 MG/DL (80-110); POTASSIUM SERUM 3.9 MEQ/L (3.5-5.1); SODIUM LEVEL 139 MEQ/L (136-145); TOTAL PROTEIN 6.9 GM/DL (6.4-8.2)
--- NOTE | 2017-04-26 08:54 | REP ---
MR LUMBAR SPINE WITHOUT CONTRAST: HISTORY: Back pain. COMPARISON: 08/29/2016 Decreased signal intensity is present in the L2-3 through L5-S1 intervertebral discs. The L2-3, L3-4 and L5-S1 intervertebral discs are decreased in height. These findings are consistent with disc degeneration. A small central disc protrusion is present at the T11-12 level. There is minimal effacement of the thecal sac without spinal cord compression. The T11 neural foramina are patent on sagittal images. There is no disc bulge or herniation at the L1-2 level. The L1 nerves exit the neural foramina without compression. A diffuse disc bulge is present at the L2-3 level. There is minimal compression of the thecal sac. The L2 nerves exit the neural foramina without compression. A diffuse disc bulge and small disc protrusion central and eccentric to the left are present at the L3-4 level. There is minimal compression of the thecal sac. There is hypertrophy of the posterior articulating facets. The L3 nerves exit the neural foramina without compression. A diffuse disc bulge is present at the L4-5 level. There is hypertrophy of the ligamenta flava and posterior articulating facets. These findings produce minimal central canal stenosis. The L4 nerves exit the neural foramina without compression. A diffuse disc bulge is present at the L5-S1 level. This abuts the thecal sac and S1 nerves. There is hypertrophy of the posterior articulating facets. The L5 nerves exit the neural foramina without compression. The conus medullaris is normal in appearance terminating at the level of the T12-L1 intervertebral disc. A hemangioma is present in the T12 vertebral body. Normal signal intensity is present in the lumbar vertebral bodies. IMPRESSION: 1. A diffuse disc bulge at the L2-3 level with minimal thecal sac compression. 2. Diffuse disc bulge and small disc protrusion at the L3-4 level with minimal thecal sac compression. 3. Minimal central canal stenosis at the L4-5 level secondary to disc bulge, ligamentous and facet hypertrophy. 4. Diffuse disc bulge at the L5-S1 level. This abuts the thecal sac and S1 nerves. There is no significant change compared to the previous study. Signed by Robert Roach MD 04/26/2017 09:29 A
[2017-04-26] MEDS: LACTULOSE 20 GM/30 ML SYRUP UD PO SCH ×3 (09:47→20:16)
[2017-04-26] MEDS: rifAXIMin 550 MG TAB (XIFAXAN) PO SCH ×2 (09:47→20:15)
[2017-04-26] MEDS: PANTOPRAZOLE 40MG TAB (PROTONIX) PO SCH (09:47)
[2017-04-26] MEDS: OMEPRAZOLE 20 MG CAP PO SCH (09:48)
[2017-04-26] MEDS: MULTIVITAMINS/MINERALS THERAP 1 TAB PO SCH (09:48)
[2017-04-26] MEDS: CETIRIZINE (ZyrTEC) 10 MG TAB PO SCH (09:48)
[2017-04-26] MEDS: POTASSIUM CHLORIDE 10 MEQ SR TABLET PO SCH ×2 (09:48→20:16)
[2017-04-26] MEDS: METOPROLOL TART 12.5 MG PER 1/2 TAB PO SCH ×2 (09:56→20:16)
[2017-04-26] MEDS: MAGNESIUM CHLORIDE 64 MG TABCR (SLO MAG) PO SCH (09:56)
--- NOTE | 2017-04-26 10:47 | IPNPDOC ---
Subjective Date Seen The patient was seen on 04/26/17. Subjective Chief Complaint/HPI The patient is a 61-year-old female admitted with a reason for visit of Hepatic Encephalopathy. Events since last encounter Pt c/o L sided leg and buttock pain, L sided low back pain. She has weakness assoc with this pain, although is safe for home per PT. She wants to get home JULISSA. Dr Torres has consult pending to Pain Clinic prior to d.c General: Denies: Fatigue Constitutional: Denies: Chills, Fever ENT: Denies: Head Aches Pulmonary: Denies: Dyspnea, Cough Cardiovascular: Denies: Chest Pain, Palpitations Gastrointestinal: Reports: Diarrhea, Denies: Nausea, Vomiting Psych: Reports: Mood Normal Objective Physical Examination General Exam: Positive: Alert, No Acute Distress ENT Exam: Positive: Mucous membr. moist/pink Chest Exam: Positive: Clear to auscultation, Normal air movement Heart Exam: Positive: Rate Normal, Normal S1, Normal S2, Negative: Murmurs Abdomen Exam: Positive: Normal bowel sounds, Soft, Negative: Tenderness Extremity Exam: Negative: Edema Neuro Exam: Positive: Normal Speech Psych Exam: Positive: Mental status NL, Mood NL Assessment /Plan Problems (1) Chronic pain Status: Chronic Problem Text: 04/26 - MRI L SPine with diffuse DDD, Disc bulges, Pain Clinic consult pending. 04/25 mainly 2 lumbar DJD 04/11/17 [facility] referral faxed s response yet-will attempt to consult inpx to attempt interventional rx rather than using as much narcotics which contribute to patient's recurrent HE (2) Pancytopenia Status: Acute Problem Text: 04/26 - Improved today. favor 2 infection, +/- HIT c baseline low 2 ESLD 04/25- worse today-3.2, 10.9, 95K 04/24 Possibly due to infection - urine culture positive today (see below); HIT also possible 04/24 - WBC 3.6, Hgb 11.7, Plts 100 04/23 3.2K/11.7/86K (04/19 plt 181K); therefore, held heparin (3) Urinary tract infection Status: Acute Problem Text: rx as per fever (4) Acute kidney injury Status: Resolved Response to Treatment: Improving, Worse Problem Text: 04/26 - improved today. BUN 17, Scr .96 04/25 21/1.2, 3.8, 2.1 04/24 - Creat 1.25, K 3.3, Na 137, Mg 2.0. Potassium 20 mEq increased from daily to BID dosing today. Furosemide remains on hold. (KES) 04/23 cr to 1.3, K 3.8, Na down to 133, SBP 110s on fur 40 BID, K 20 TID, Mg 64 QD ; therefore, held fur/decreased K to 20 QD (04/22 5 BMs, multiple today-NOT foul smelling ) baseline cr 1.0 (5) Fever Status: Resolved Problem Text: 04/26 - change to Keflex 500 mg po TID 04/24 - Cefazolin D3. No fever in the last 24 hours. May be due to UTI - see below. 04/23 Tm 102 2300, patient tired from diarrhea but s pain-mabel no abdominal pain and no further nausea 04/22 1400 101.9 (new-onset) given h/o recurrent Gr A Strep sepsis (last 01/2017)- probable source of chronic BLE cellulitis; therefore, + cefazolin 1 TID, check BCX x 2, UCX cathed 04/23 CXR NAD 04/22 BCX P 04/22 UCX K. pneumonia 40K sens to cefazolin (6) Hepatic encephalopathy Status: Chronic Response to Treatment: Improving Problem Text: Mental status is at baseline; taking lactulose here and tolerating well. Generally NOT compliant c lactulose at home 04/23 NH3 25 04/22 - She was given lactulose this am x1, non since once dose on 04/20, no BM yesterday, this could be cause of Nausea this am. Spoke with nursing, add back Xifaxan, lactulose needs to be 30 TID, HOLD for diarrhea, NOT prn constipation 04/21 Decreased her lactulose to the amount of lactulose necessary to cause 3 bowel movements daily 04/21 Likely related to hepatic encephalopathy as well as excess narcotic Lactulose dose was increased and Oxycodone held 04/20 NH3 45-baseline (7) Diabetes type 2, controlled Status: Chronic Response to Treatment: Stable Problem Text: Good control on Levemir 6 qhs s hypos (HD Lantus 10 QHS) (8) Cirrhosis Status: Chronic Response to Treatment: Stable Problem Text: Continue lactulose and rifaximin. (9) RENEE on CPAP Status: Chronic (10) Diastolic CHF Status: Chronic Response to Treatment: Stable Problem Text: as per TED Plan/VTE VTE Prophylaxis Ordered?: Yes (SQ heparin) Plan Therapy: PT VS, I&O, 24H, Fishbone Vital Signs/I&O Vital Signs Date Time Temp Pulse Resp B/P (MAP) Pulse Ox O2 Delivery O2 Flow Rate FiO2 04/26/17 09:56 71 142/61 04/26/17 06:00 97.8 16 95 Room Air I&O- Last 24 Hours up to 6 AM 04/26/17 06:00 Intake Total 3580 ml Output Total 2750 ml Balance 830 ml Laboratory Data 24H LABS Laboratory Tests 2 04/25/17 20:31: Bedside Glucose (Misc Panel) 122H 04/26/17 06:26: White Blood Count 3.6L, Red Blood Count 3.67L, Hemoglobin 11.1L, Hematocrit 33.1L, Mean Corpuscular Volume 90.1, Mean Corpuscular Hemoglobin 30.3, Mean Corpuscular Hemoglobin Concent 33.6, Red Cell Distribution Width 13.9, Platelet Count 123L, Neutrophils (%) (Auto) 44.9, Lymphocytes (%) (Auto) 41.5, Monocytes (%) (Auto) 6.3H, Eosinophils (%) (Auto) 2.6, Basophils (%) (Auto) 0.6, Neutrophils # (Auto) 1.6L, Lymphocytes # (Auto) 1.6, Monocytes # (Auto) 0.2, Eosinophils # (Auto) 0.1, Basophils # (Auto) 0.0, Large Unclassified Cells % 4.1H, Large Unclassified Cells # 0.2, Anion Gap 9, Glomerular Filtration Rate > 60.0, Blood Urea Nitrogen 17, Creatinine 0.96, Sodium Level 139, Potassium Level 3.9, Chloride Level 106, Carbon Dioxide Level 24, Calcium Level 8.6L, Aspartate Amino Transf (AST/SGOT) 83H, Alanine Aminotransferase (ALT/SGPT) 28, Alkaline Phosphatase 68, Total Bilirubin 0.2, Total Protein 6.9, Albumin 2.4L, Albumin/Globulin Ratio 0.53L CBC/BMP Laboratory Tests 04/26/17 06:26 Red Blood Count 3.67 L, Mean Corpuscular Volume 90.1, Mean Corpuscular Hemoglobin 30.3, Mean Corpuscular Hemoglobin Concent 33.6, Red Cell Distribution Width 13.9, Neutrophils (%) (Auto) 44.9, Lymphocytes (%) (Auto) 41.5, Monocytes (%) (Auto) 6.3 H, Eosinophils (%) (Auto) 2.6, Basophils (%) ( Auto) 0.6, Neutrophils # (Auto) 1.6 L, Lymphocytes # (Auto) 1.6, Monocytes # ( Auto) 0.2, Eosinophils # (Auto) 0.1, Basophils # (Auto) 0.0, Calcium Level 8.6 L , Aspartate Amino Transf (AST/SGOT) 83 H, Alanine Aminotransferase (ALT/SGPT) 28 , Alkaline Phosphatase 68, Total Bilirubin 0.2, Total Protein 6.9, Albumin 2.4 L Microbiology Microbiology 04/22/17 Blood Culture - Preliminary, Resulted No Growth after 72 hours. All specime... 04/22/17 Blood Culture - Preliminary, Resulted No Growth after 72 hours. All specime... 04/18/17 Blood Culture - Final, Complete NO GROWTH AFTER 5 DAYS 04/18/17 Blood Culture - Final, Complete NO GROWTH AFTER 5 DAYS 04/22/17 Urine Culture - Final, Complete Klebsiella Pneumoniae 04/18/17 Urine Culture - Final, Complete TUNG MONTAÑO PA-C Apr 26, 2017 10:47
[2017-04-26] MEDS: CEPHALEXIN 500 MG CAP PO SCH ×2 (13:38→21:05)
[2017-04-26 14:00] VITALS: BP 122/67
--- NOTE | 2017-04-26 17:50 | CR ---
DATE OF CONSULTATION: 04/26/2017 CHIEF COMPLAINT: 1. Low back pain. 2. Bilateral leg pain. HISTORY OF PRESENT ILLNESS: Pat Klein is a 61-year-old female who was admitted on 04/18/2017 for altered mental status with a diagnosis of hepatic encephalopathy. Suffers from chronic low back pain. There is history of noncompliance with narcotic pain medications. Rating pain level as an 8/10. Has had injections in the past at Dr. Worrell's office, last one being over a year ago. Reports some relief with her lower extremity pain after injections on past. Has multiple comorbidities. Reporting normal urination. Reporting normal bowel movements. Denies recent fever or illness. PAST MEDICAL HISTORY: Cirrhosis, hypothyroidism, schizophrenia, portal hypertension, hepatic encephalopathy, obstructive sleep apnea, refusing continuous positive airway pressure (CPAP), chronic kidney disease, stage III, hypertension, hyperlipidemia, congestive heart failure, peripheral artery disease. SURGICAL HISTORY: Total abdominal hysterectomy, bilateral salpingo-oophorectomy , cholecystectomy, open reduction internal fixation (ORIF) right hip 2016. SOCIAL HISTORY: Denies tobacco, alcohol or illicit drug use. FAMILY HISTORY: Noncontributory. PHYSICAL EXAMINATION: Awake, alert, pleasant. Vital signs: Temperature 97,7, pulse 64, respiratory rate 20, blood pressure 120/67, oxygen saturation is 98% in room air. Cardiac: S1, S2. Normal rate and rhythm. Respiratory: Lungs sounds are clear. Respirations nonlabored. Neuromuscular: Muscle strength over the lower extremities is 4/5. Reporting normal sensation to light touch lower extremities. Inspection of spine: Marked tenderness over LS axis and lumbar paraspinals. Marked tenderness noted over bilateral sacroiliac joint. DIAGNOSTIC DATA: MRI of the lumbar spine 04/25/2017: Diffuse disc bulging. Lumbar facet arthropathy. Showing diffuse disc bulge at L5-S1. This abuts the thecal sac and S1 nerves. ASSESSMENT: 1. Chronic low back pain. 2. Lumbar disc protrusion with radiculopathy. 3. Neuropathy. PLAN: Recommend trial of the lumbar epidural steroid injection (LESI). Of course, pain medications should be nonnarcotic if possible or in small amounts. This I will leave per primary care discretion after discussing with Dr. Torres. Orders preprocedure were given to the patient's primary nurse. We will see her at the pain center on 04/29/2017 at 9:00 a.m. Copy To: Dr. Torres. [facility] HOSPITALSofya
[2017-04-26] MEDS: LEVEMIR (INSULIN DETEMIR) 1 UNITS/0.01ML SC SCH (20:15)
[2017-04-26] MEDS: NORTRIPTYLINE 10 MG CAP PO SCH (20:15)
[2017-04-26 22:00] VITALS: BP 140/62
[2017-04-27 02:00] VITALS: BP 142/67
[2017-04-27] MEDS: oxyCODONE 5MG TAB PO PRN ×3 (02:44→22:19)
[2017-04-27] MEDS: LEVOTHYROXINE 50MCG TABLET (0.05MG) PO SCH (05:49)
[2017-04-27] MEDS: CEPHALEXIN 500 MG CAP PO SCH ×3 (05:49→22:08)
[2017-04-27 06:00] VITALS: BP 133/72
[2017-04-27 06:19] LABS: BASO % 0.7 % (0.0-1.0); EOS # 0.1 K/mm3 (0.0-0.50); EOS % 2.2 % (0.0-3.0); LARGE UNSTAINED CELL # 0.1 K/mm3 (0.0-0.4); LYMPH # 1.6 K/mm3 (1.5-4.5); LYMPH % 38.6 % (24.0-44.0); MEAN CORPUSCULAR HEMOGLOBIN 30.4 pg (27.0-33.0); MEAN CORPUSCULAR HGB CONC 33.5 g/dl (32.0-36.5); MEAN CORPUSCULAR VOLUME 90.7 fl (80.0-96.0); MONO # 0.3 K/mm3 (0.0-0.8); MONO % 7.4 % (0.0-5.0); NEUTROPHILS % 48.1 % (36.0-66.0); PLATELET COUNT, AUTOMATED 147 k/mm3 (150-450); RED CELL DISTRIBUTION WIDTH 13.8 % (11.5-14.5); WHITE BLOOD COUNT 4.2 K/mm3 (4.0-10.0)
[2017-04-27] MEDS: METOPROLOL TART 12.5 MG PER 1/2 TAB PO SCH ×2 (08:56→22:08)
[2017-04-27] MEDS: OMEPRAZOLE 20 MG CAP PO SCH (08:56)
[2017-04-27] MEDS: MULTIVITAMINS/MINERALS THERAP 1 TAB PO SCH (08:56)
[2017-04-27] MEDS: LACTULOSE 20 GM/30 ML SYRUP UD PO SCH ×3 (08:57→22:07)
[2017-04-27] MEDS: CETIRIZINE (ZyrTEC) 10 MG TAB PO SCH (08:57)
[2017-04-27] MEDS: MAGNESIUM CHLORIDE 64 MG TABCR (SLO MAG) PO SCH (08:57)
[2017-04-27] MEDS: POTASSIUM CHLORIDE 10 MEQ SR TABLET PO SCH ×2 (08:57→22:08)
[2017-04-27] MEDS: rifAXIMin 550 MG TAB (XIFAXAN) PO SCH ×2 (08:57→22:07)
[2017-04-27] MEDS: ANALGESIC BALM CRM 120 GM TOP SCH ×3 (08:57→22:10)
[2017-04-27] MEDS: PANTOPRAZOLE 40MG TAB (PROTONIX) PO SCH (08:57)
[2017-04-27 14:00] VITALS: BP 134/66
[2017-04-27 18:00] VITALS: BP 130/65
--- NOTE | 2017-04-27 20:33 | IPNPDOC ---
Subjective Date Seen The patient was seen on 04/27/17. Subjective Chief Complaint/HPI The patient is a 61-year-old female admitted with a reason for visit of Hepatic Encephalopathy. Events since last encounter States back pain is at baseline. Constitutional: Denies: Chills, Fever ENT: Denies: Head Aches Pulmonary: Denies: Dyspnea, Cough Cardiovascular: Denies: Chest Pain, Palpitations Gastrointestinal: Reports: Diarrhea (due to lactulose) Genitourinary: Denies: Dysuria Musculoskeletal: Reports: Back Pain (chronic) Objective Physical Examination General Exam: Positive: Alert, No Acute Distress ENT Exam: Positive: Mucous membr. moist/pink Chest Exam: Positive: Clear to auscultation, Normal air movement Heart Exam: Positive: Rate Normal, Normal S1, Normal S2, Negative: Murmurs Abdomen Exam: Positive: Normal bowel sounds, Soft, Negative: Tenderness Extremity Exam: Negative: Edema Neuro Exam: Positive: Normal Speech Psych Exam: Positive: Mental status NL, Mood NL Assessment /Plan Problems (1) Chronic pain Status: Chronic Problem Text: 04/27 Pain clinic plans to do a steroid injection on Saturday at 09: 00; pre-op orders were placed by Pain LINE OPERATOR. 04/26 - MRI L SPine with diffuse DDD, Disc bulges, Pain Clinic consult pending. 04/25 mainly 2 lumbar DJD 04/11/17 [facility] Pain Clinic referral faxed s response yet-will attempt to consult inpx to attempt interventional rx rather than using as much narcotics which contribute to patient's recurrent HE (2) Pancytopenia Status: Acute Problem Text: 04/27 - Continues to improve; monitor 04/26 - Improved today. favor 2 infection, +/- HIT c baseline low 2 ESLD 04/25- worse today-3.2, 10.9, 95K 04/24 Possibly due to infection - urine culture positive today (see below); HIT also possible 04/24 - WBC 3.6, Hgb 11.7, Plts 100 04/23 3.2K/11.7/86K (04/19 plt 181K); therefore, held heparin (3) Urinary tract infection Status: Acute Problem Text: rx as per fever (4) Acute kidney injury Status: Resolved Response to Treatment: Improving, Worse Problem Text: 04/26 - improved today. BUN 17, Scr .96 8/3 21/1.2, 3.8, 2.1 04/24 - Creat 1.25, K 3.3, Na 137, Mg 2.0. Potassium 20 mEq increased from daily to BID dosing today. Furosemide remains on hold. (KES) 04/23 cr to 1.3, K 3.8, Na down to 133, SBP 110s on fur 40 BID, K 20 TID, Mg 64 QD ; therefore, held fur/decreased K to 20 QD (04/22 5 BMs, multiple today-NOT foul smelling ) baseline cr 1.0 (5) Fever Status: Resolved Problem Text: 04/26 - change to Keflex 500 mg po TID 04/24 - Cefazolin D3. No fever in the last 24 hours. May be due to UTI - see below. 04/23 Tm 102 2300, patient tired from diarrhea but s pain-mabel no abdominal pain and no further nausea 04/22 1400 101.9 (new-onset) given h/o recurrent Gr A Strep sepsis (last 01/2017)- probable source of chronic BLE cellulitis; therefore, + cefazolin 1 TID, check BCX x 2, UCX cathed 04/23 CXR NAD 04/22 BCX P 04/22 UCX K. pneumonia 40K sens to cefazolin (6) Hepatic encephalopathy Status: Chronic Response to Treatment: Improving Problem Text: Mental status is at baseline; taking lactulose here and tolerating well. Generally NOT compliant c lactulose at home 04/23 NH3 25 04/22 - She was given lactulose this am x1, non since once dose on 04/20, no BM yesterday, this could be cause of Nausea this am. Spoke with nursing, add back Xifaxaaida, lactulose needs to be 30 TID, HOLD for diarrhea, NOT prn constipation 04/21 Decreased her lactulose to the amount of lactulose necessary to cause 3 bowel movements daily 04/21 Likely related to hepatic encephalopathy as well as excess narcotic Lactulose dose was increased and Oxycodone held 04/20 NH3 45-baseline (7) Diabetes type 2, controlled Status: Chronic Response to Treatment: Stable Problem Text: Good control on Levemir 6 qhs s hypos (HD Lantus 10 QHS) (8) Cirrhosis Status: Chronic Response to Treatment: Stable Problem Text: Continue lactulose and rifaximin. (9) RENEE on CPAP Status: Chronic (10) Diastolic CHF Status: Chronic Response to Treatment: Stable Problem Text: as per TED Plan/VTE VTE Prophylaxis Ordered?: Yes (SQ heparin) Plan Therapy: PT VS, I&O, 24H, Fishbone Vital Signs/I&O Vital Signs Date Time Temp Pulse Resp B/P (MAP) Pulse Ox O2 Delivery O2 Flow Rate FiO2 04/27/17 18:00 97.5 67 18 130/65 (86) 96 Room Air I&O- Last 24 Hours up to 6 AM 04/27/17 06:00 Intake Total 2460 ml Output Total 700 ml Balance 1760 ml Laboratory Data 24H LABS Laboratory Tests 2 04/27/17 05:49: White Blood Count 4.2, Red Blood Count 3.86L, Hemoglobin 11.7L, Hematocrit 35.0L , Mean Corpuscular Volume 90.7, Mean Corpuscular Hemoglobin 30.4, Mean Corpuscular Hemoglobin Concent 33.5, Red Cell Distribution Width 13.8, Platelet Count 147L, Neutrophils (%) (Auto) 48.1, Lymphocytes (%) (Auto) 38.6, Monocytes (%) (Auto) 7.4H, Eosinophils (%) (Auto) 2.2, Basophils (%) (Auto) 0.7, Neutrophils # (Auto) 2.0, Lymphocytes # (Auto) 1.6, Monocytes # (Auto) 0.3, Eosinophils # (Auto) 0.1, Basophils # (Auto) 0.0, Large Unclassified Cells % 3.0 , Large Unclassified Cells # 0.1 CBC/BMP Laboratory Tests 04/27/17 05:49 Red Blood Count 3.86 L, Mean Corpuscular Volume 90.7, Mean Corpuscular Hemoglobin 30.4, Mean Corpuscular Hemoglobin Concent 33.5, Red Cell Distribution Width 13.8, Neutrophils (%) (Auto) 48.1, Lymphocytes (%) (Auto) 38.6, Monocytes (%) (Auto) 7.4 H, Eosinophils (%) (Auto) 2.2, Basophils (%) ( Auto) 0.7, Neutrophils # (Auto) 2.0, Lymphocytes # (Auto) 1.6, Monocytes # (Auto ) 0.3, Eosinophils # (Auto) 0.1, Basophils # (Auto) 0.0 Microbiology Microbiology 04/22/17 Blood Culture - Final, Complete NO GROWTH AFTER 5 DAYS 04/22/17 Blood Culture - Final, Complete NO GROWTH AFTER 5 DAYS 04/18/17 Blood Culture - Final, Complete NO GROWTH AFTER 5 DAYS 04/18/17 Blood Culture - Final, Complete NO GROWTH AFTER 5 DAYS 04/22/17 Urine Culture - Final, Complete Klebsiella Pneumoniae 04/18/17 Urine Culture - Final, Complete FRANCINE LUCAS MD Apr 27, 2017 20:33
[2017-04-27] MEDS: LEVEMIR (INSULIN DETEMIR) 1 UNITS/0.01ML SC SCH (21:00)
[2017-04-27 22:00] VITALS: BP 141/68
[2017-04-27] MEDS: NORTRIPTYLINE 10 MG CAP PO SCH (22:07)
[2017-04-28 02:00] VITALS: BP 126/59
[2017-04-28] MEDS: oxyCODONE 5MG TAB PO PRN ×3 (04:10→15:42)
[2017-04-28] MEDS: LEVOTHYROXINE 50MCG TABLET (0.05MG) PO SCH (05:27)
[2017-04-28] MEDS: CEPHALEXIN 500 MG CAP PO SCH ×3 (05:28→21:14)
[2017-04-28 06:00] VITALS: BP 137/63
[2017-04-28 06:11] LABS: BASO % 0.4 % (0.0-1.0); EOS # 0.1 K/mm3 (0.0-0.50); LARGE UNSTAINED CELL # 0.1 K/mm3 (0.0-0.4); LARGE UNSTAINED CELL % 2.2 % (0.0-4.0); LYMPH # 1.9 K/mm3 (1.5-4.5); LYMPH % 35.2 % (24.0-44.0); MEAN CORPUSCULAR HEMOGLOBIN 29.7 pg (27.0-33.0); MEAN CORPUSCULAR HGB CONC 32.8 g/dl (32.0-36.5); MEAN CORPUSCULAR VOLUME 90.3 fl (80.0-96.0); MONO # 0.3 K/mm3 (0.0-0.8); MONO % 6.4 % (0.0-5.0); NEUTROPHILS # 2.8 K/mm3 (1.8-7.7); NEUTROPHILS % 53.9 % (36.0-66.0); PLATELET COUNT, AUTOMATED 165 k/mm3 (150-450); WHITE BLOOD COUNT 5.2 K/mm3 (4.0-10.0)
[2017-04-28] MEDS: MULTIVITAMINS/MINERALS THERAP 1 TAB PO SCH (09:55)
[2017-04-28] MEDS: LACTULOSE 20 GM/30 ML SYRUP UD PO SCH ×3 (09:55→21:00)
[2017-04-28] MEDS: OMEPRAZOLE 20 MG CAP PO SCH (09:56)
[2017-04-28] MEDS: CETIRIZINE (ZyrTEC) 10 MG TAB PO SCH (09:56)
[2017-04-28] MEDS: PANTOPRAZOLE 40MG TAB (PROTONIX) PO SCH (09:56)
[2017-04-28] MEDS: POTASSIUM CHLORIDE 10 MEQ SR TABLET PO SCH ×2 (09:56→21:13)
[2017-04-28] MEDS: METOPROLOL TART 12.5 MG PER 1/2 TAB PO SCH ×2 (09:57→21:13)
[2017-04-28] MEDS: rifAXIMin 550 MG TAB (XIFAXAN) PO SCH ×2 (09:57→21:13)
[2017-04-28] MEDS: ANALGESIC BALM CRM 120 GM TOP SCH ×3 (09:57→21:14)
[2017-04-28] MEDS: MAGNESIUM CHLORIDE 64 MG TABCR (SLO MAG) PO SCH (09:59)
[2017-04-28 10:00] VITALS: BP 156/90
[2017-04-28 14:00] VITALS: BP 163/92
--- NOTE | 2017-04-28 16:08 | IPNPDOC ---
Subjective Date Seen The patient was seen on 04/28/17. Subjective Chief Complaint/HPI The patient is a 61-year-old female admitted with a reason for visit of Hepatic Encephalopathy. Events since last encounter States back pain is still present and unchanged. Constitutional: Denies: Chills, Fever Pulmonary: Denies: Dyspnea, Cough Cardiovascular: Denies: Chest Pain Gastrointestinal: Reports: Diarrhea, Denies: Nausea, Vomiting, Abdominal Pain Musculoskeletal: Reports: Back Pain Objective Physical Examination General Exam: Positive: Alert, No Acute Distress ENT Exam: Positive: Mucous membr. moist/pink Chest Exam: Positive: Clear to auscultation, Normal air movement Heart Exam: Positive: Rate Normal, Normal S1, Normal S2, Negative: Murmurs Abdomen Exam: Positive: Normal bowel sounds, Soft, Negative: Tenderness Extremity Exam: Negative: Edema Neuro Exam: Positive: Normal Speech Psych Exam: Positive: Mental status NL, Mood NL Assessment /Plan Problems (1) Chronic pain Status: Chronic Problem Text: 04/28 Pain clinic plans to do a steroid injection on Saturday at 09: 00; pre-op orders were placed by Pain COPPER ETCHER. 04/26 - MRI L SPine with diffuse DDD, Disc bulges, Pain Clinic consult pending. 04/25 mainly 2 lumbar DJD 04/11/17 [facility] Pain Clinic referral faxed s response yet-will attempt to consult inpx to attempt interventional rx rather than using as much narcotics which contribute to patient's recurrent HE (2) Pancytopenia Status: Acute Problem Text: 04/28 - Continues to improve; monitor 04/26 - Improved today. favor 2 infection, +/- HIT c baseline low 2 ESLD 04/25- worse today-3.2, 10.9, 95K 04/24 Possibly due to infection - urine culture positive today (see below); HIT also possible 04/24 - WBC 3.6, Hgb 11.7, Plts 100 04/23 3.2K/11.7/86K (04/19 plt 181K); therefore, held heparin (3) Urinary tract infection Status: Acute Problem Text: rx as per fever (4) Acute kidney injury Status: Resolved Problem Text: 04/26 - improved today. BUN 17, Scr .96 04/25 21/1.2, 3.8, 2.1 04/24 - Creat 1.25, K 3.3, Na 137, Mg 2.0. Potassium 20 mEq increased from daily to BID dosing today. Furosemide remains on hold. (KES) 04/23 cr to 1.3, K 3.8, Na down to 133, SBP 110s on fur 40 BID, K 20 TID, Mg 64 QD ; therefore, held fur/decreased K to 20 QD (04/22 5 BMs, multiple today-NOT foul smelling ) baseline cr 1.0 (5) Fever Status: Resolved Problem Text: 04/26 - change to Keflex 500 mg po TID 04/24 - Cefazolin D3. No fever in the last 24 hours. May be due to UTI - see below. 04/23 Tm 102 2300, patient tired from diarrhea but s pain-mabel no abdominal pain and no further nausea 04/22 1400 101.9 (new-onset) given h/o recurrent Gr A Strep sepsis (last 01/2017)- probable source of chronic BLE cellulitis; therefore, + cefazolin 1 TID, check BCX x 2, UCX cathed 04/23 CXR NAD 04/22 BCX P 04/22 UCX K. pneumonia 40K sens to cefazolin (6) Hepatic encephalopathy Status: Chronic Response to Treatment: Improving Problem Text: Mental status is at baseline; taking lactulose here and tolerating well. Generally NOT compliant c lactulose at home 04/23 NH3 25 04/22 - She was given lactulose this am x1, non since once dose on 04/20, no BM yesterday, this could be cause of Nausea this am. Spoke with nursing, add back Xifaxan, lactulose needs to be 30 TID, HOLD for diarrhea, NOT prn constipation 04/21 Decreased her lactulose to the amount of lactulose necessary to cause 3 bowel movements daily 04/21 Likely related to hepatic encephalopathy as well as excess narcotic Lactulose dose was increased and Oxycodone held 04/20 NH3 45-baseline (7) Diabetes type 2, controlled Status: Chronic Response to Treatment: Stable Problem Text: Good control on Levemir 6 qhs s hypos (HD Lantus 10 QHS) (8) Cirrhosis Status: Chronic Response to Treatment: Stable Problem Text: Continue lactulose and rifaximin. (9) RENEE on CPAP Status: Chronic (10) Diastolic CHF Status: Chronic Response to Treatment: Stable Problem Text: as per TED Plan/VTE VTE Prophylaxis Ordered?: Yes (SQ heparin) Plan Therapy: PT VS, I&O, 24H, Fishbone Vital Signs/I&O Vital Signs Date Time Temp Pulse Resp B/P (MAP) Pulse Ox O2 Delivery O2 Flow Rate FiO2 04/28/17 15:42 20 04/28/17 14:00 98.3 80 163/92 (115) 94 Room Air I&O- Last 24 Hours up to 6 AM 04/28/17 06:00 Intake Total 3240 ml Output Total 900 ml Balance 2340 ml Laboratory Data 24H LABS Laboratory Tests 2 04/28/17 05:55: White Blood Count 5.2, Red Blood Count 3.71L, Hemoglobin 11.0L, Hematocrit 33.5L , Mean Corpuscular Volume 90.3, Mean Corpuscular Hemoglobin 29.7, Mean Corpuscular Hemoglobin Concent 32.8, Red Cell Distribution Width 14.0, Platelet Count 165, Neutrophils (%) (Auto) 53.9, Lymphocytes (%) (Auto) 35.2, Monocytes ( %) (Auto) 6.4H, Eosinophils (%) (Auto) 2.0, Basophils (%) (Auto) 0.4, Neutrophils # (Auto) 2.8, Lymphocytes # (Auto) 1.9, Monocytes # (Auto) 0.3, Eosinophils # (Auto) 0.1, Basophils # (Auto) 0.0, Large Unclassified Cells % 2.2 , Large Unclassified Cells # 0.1 CBC/BMP Laboratory Tests 04/28/17 05:55 Red Blood Count 3.71 L, Mean Corpuscular Volume 90.3, Mean Corpuscular Hemoglobin 29.7, Mean Corpuscular Hemoglobin Concent 32.8, Red Cell Distribution Width 14.0, Neutrophils (%) (Auto) 53.9, Lymphocytes (%) (Auto) 35.2, Monocytes (%) (Auto) 6.4 H, Eosinophils (%) (Auto) 2.0, Basophils (%) ( Auto) 0.4, Neutrophils # (Auto) 2.8, Lymphocytes # (Auto) 1.9, Monocytes # (Auto ) 0.3, Eosinophils # (Auto) 0.1, Basophils # (Auto) 0.0 Microbiology Microbiology 04/22/17 Blood Culture - Final, Complete NO GROWTH AFTER 5 DAYS 04/22/17 Blood Culture - Final, Complete NO GROWTH AFTER 5 DAYS 04/18/17 Blood Culture - Final, Complete NO GROWTH AFTER 5 DAYS 04/18/17 Blood Culture - Final, Complete NO GROWTH AFTER 5 DAYS 04/22/17 Urine Culture - Final, Complete Klebsiella Pneumoniae 04/18/17 Urine Culture - Final, Complete FRANCINE LUCAS MD Apr 28, 2017 16:08
[2017-04-28] MEDS: NORTRIPTYLINE 10 MG CAP PO SCH (21:14)
[2017-04-28] MEDS: LEVEMIR (INSULIN DETEMIR) 1 UNITS/0.01ML SC SCH (21:16)
[2017-04-28 22:00] VITALS: BP 155/70
[2017-04-29 02:00] VITALS: BP 136/77
[2017-04-29] MEDS: oxyCODONE 5MG TAB PO PRN ×3 (02:13→22:35)
[2017-04-29] MEDS: LEVOTHYROXINE 50MCG TABLET (0.05MG) PO SCH (05:51)
[2017-04-29] MEDS: CEPHALEXIN 500 MG CAP PO SCH ×3 (05:51→21:35)
[2017-04-29 06:00] VITALS: BP 141/56
[2017-04-29 06:06] LABS: BASO % 0.7 % (0.0-1.0); EOS # 0.1 K/mm3 (0.0-0.50); EOS % 2.5 % (0.0-3.0); LARGE UNSTAINED CELL # 0.1 K/mm3 (0.0-0.4); LARGE UNSTAINED CELL % 1.7 % (0.0-4.0); LYMPH # 1.6 K/mm3 (1.5-4.5); LYMPH % 30.7 % (24.0-44.0); MEAN CORPUSCULAR HEMOGLOBIN 29.6 pg (27.0-33.0); MEAN CORPUSCULAR HGB CONC 33.1 g/dl (32.0-36.5); MEAN CORPUSCULAR VOLUME 89.5 fl (80.0-96.0); MONO # 0.3 K/mm3 (0.0-0.8); MONO % 6.6 % (0.0-5.0); NEUTROPHILS # 2.9 K/mm3 (1.8-7.7); NEUTROPHILS % 57.8 % (36.0-66.0); PLATELET COUNT, AUTOMATED 190 k/mm3 (150-450); WHITE BLOOD COUNT 5.1 K/mm3 (4.0-10.0)
[2017-04-29 06:17] LABS: ANION GAP 7 MEQ/L (8-16); BLOOD UREA NITROGEN 13 MG/DL (7-18); CARBON DIOXIDE LEVEL 24 MEQ/L (21-32); CHLORIDE LEVEL 109 MEQ/L (98-107); CREATININE FOR GFR 0.89 MG/DL (0.55-1.02); GLOMERULAR FILTRATION RATE > 60.0 (>45); GLUCOSE, FASTING 72 MG/DL (80-110); POTASSIUM SERUM 3.8 MEQ/L (3.5-5.1); SODIUM LEVEL 140 MEQ/L (136-145)
[2017-04-29] MEDS ORDERED: oxyCODONE 5MG TAB As Ordered ONE (11:20)
[2017-04-29] MEDS ORDERED: ISOVUE-M 300 61% 15ML VIAL (Q9967) As Ordered ONE (11:26)
[2017-04-29] MEDS ORDERED: LIDOCAINE 1% SDV INJ 30 ML VIAL As Ordered ONE (11:26)
[2017-04-29] MEDS ORDERED: methylPREDNISolone SUSP 40 MG/ML (DEPO-medrol) VIAL (J1030) As Ordered ONE (11:26)
[2017-04-29] MEDS: MAGNESIUM CHLORIDE 64 MG TABCR (SLO MAG) PO SCH (13:43)
[2017-04-29] MEDS: LACTULOSE 20 GM/30 ML SYRUP UD PO SCH ×3 (13:43→21:00)
[2017-04-29] MEDS: MULTIVITAMINS/MINERALS THERAP 1 TAB PO SCH (13:43)
[2017-04-29] MEDS: PANTOPRAZOLE 40MG TAB (PROTONIX) PO SCH (13:44)
[2017-04-29] MEDS: OMEPRAZOLE 20 MG CAP PO SCH (13:44)
[2017-04-29] MEDS: rifAXIMin 550 MG TAB (XIFAXAN) PO SCH ×2 (13:44→21:35)
[2017-04-29] MEDS: POTASSIUM CHLORIDE 10 MEQ SR TABLET PO SCH ×2 (13:44→21:35)
[2017-04-29] MEDS: CETIRIZINE (ZyrTEC) 10 MG TAB PO SCH (13:44)
[2017-04-29] MEDS: ANALGESIC BALM CRM 120 GM TOP SCH ×3 (13:45→21:38)
[2017-04-29] MEDS: METOPROLOL TART 12.5 MG PER 1/2 TAB PO SCH ×2 (13:46→21:34)
[2017-04-29 14:00] VITALS: BP 139/64
--- NOTE | 2017-04-29 17:37 | REP ---
FLUOROSCOPIC GUIDANCE LUMBAR EPIDURAL INJECTION: 04/29/2017. Clinical history: Back pain. Findings: Three views for lumbar epidural steroid injection performed at the L3-4 disc level. Initial image shows needle to the right of the spinous process and lamina at this level. Second image shows epidural contrast adjacent and the third image shows a needle removed. Fluoroscopy time: 20 seconds. Signed by Mike Richter MD 04/30/2017 10:06 A
[2017-04-29] MEDS: NORTRIPTYLINE 10 MG CAP PO SCH (21:29)
[2017-04-29 21:34] VITALS: BP 134/82
[2017-04-29] MEDS: LEVEMIR (INSULIN DETEMIR) 1 UNITS/0.01ML SC SCH (21:37)
[2017-04-29 21:41] VITALS: BP 134/82
[2017-04-30] MEDS: hydrOXYzine 25 MG TAB PO PRN (00:31)
[2017-04-30 02:00] VITALS: BP 166/75
[2017-04-30] MEDS: oxyCODONE 5MG TAB PO PRN ×2 (04:46→12:08)
[2017-04-30] MEDS: CEPHALEXIN 500 MG CAP PO SCH ×2 (05:31→15:19)
[2017-04-30] MEDS: LEVOTHYROXINE 50MCG TABLET (0.05MG) PO SCH (05:31)
[2017-04-30 06:00] VITALS: BP 116/55
[2017-04-30 06:35] LABS: BASO % 0.1 % (0.0-1.0); EOS % 0.3 % (0.0-3.0); LARGE UNSTAINED CELL # 0.1 K/mm3 (0.0-0.4); LARGE UNSTAINED CELL % 0.7 % (0.0-4.0); LYMPH # 0.9 K/mm3 (1.5-4.5); LYMPH % 13.6 % (24.0-44.0); MEAN CORPUSCULAR HGB CONC 33.5 g/dl (32.0-36.5); MEAN CORPUSCULAR VOLUME 89.4 fl (80.0-96.0); MONO # 0.2 K/mm3 (0.0-0.8); MONO % 3.3 % (0.0-5.0); NEUTROPHILS # 5.4 K/mm3 (1.8-7.7); NEUTROPHILS % 81.9 % (36.0-66.0); PLATELET COUNT, AUTOMATED 222 k/mm3 (150-450); RED CELL DISTRIBUTION WIDTH 13.7 % (11.5-14.5); WHITE BLOOD COUNT 6.6 K/mm3 (4.0-10.0)
[2017-04-30] MEDS: POTASSIUM CHLORIDE 10 MEQ SR TABLET PO SCH (08:07)
[2017-04-30] MEDS: LACTULOSE 20 GM/30 ML SYRUP UD PO SCH ×2 (08:07→15:19)
[2017-04-30] MEDS: PANTOPRAZOLE 40MG TAB (PROTONIX) PO SCH (08:07)
[2017-04-30] MEDS: MAGNESIUM CHLORIDE 64 MG TABCR (SLO MAG) PO SCH (08:07)
[2017-04-30] MEDS: CETIRIZINE (ZyrTEC) 10 MG TAB PO SCH (08:08)
[2017-04-30] MEDS: ANALGESIC BALM CRM 120 GM TOP SCH ×2 (08:08→15:20)
[2017-04-30] MEDS: rifAXIMin 550 MG TAB (XIFAXAN) PO SCH (08:08)
[2017-04-30] MEDS: METOPROLOL TART 12.5 MG PER 1/2 TAB PO SCH (08:08)
[2017-04-30] MEDS: MULTIVITAMINS/MINERALS THERAP 1 TAB PO SCH (08:08)
[2017-04-30 10:00] VITALS: BP 140/88
[2017-04-30 14:00] VITALS: BP 145/80
[2017-04-30] MEDS ORDERED: NORT10CA2 PO (15:18)
[2017-04-30] MEDS ORDERED: METO1TAB87 PO (15:18)
[2017-04-30] MEDS ORDERED: POTA10CA PO (15:18)
[2017-04-30] MEDS ORDERED: LACT10SO3 PO (15:18)
[2017-04-30] MEDS ORDERED: XIFA550T PO (15:18)
--- NOTE | 2017-04-30 23:31 | IPNPDOC ---
Subjective Date Seen The patient was seen on 04/29/17. Subjective Chief Complaint/HPI The patient is a 61-year-old female admitted with a reason for visit of Hepatic Encephalopathy. Events since last encounter Patient complains of back pain, just status post epidural. She hopes to go home soon. States she has been trying to ambulate despite back pain. Constitutional: Denies: Chills, Fever Pulmonary: Denies: Dyspnea, Cough Cardiovascular: Denies: Chest Pain Gastrointestinal: Denies: Nausea, Vomiting, Diarrhea, Constipation Genitourinary: Denies: Dysuria Musculoskeletal: Reports: Back Pain Neurological: Denies: Weakness Psych: Reports: Mood Normal Objective Physical Examination General Exam: Positive: Alert, No Acute Distress ENT Exam: Positive: Mucous membr. moist/pink Chest Exam: Positive: Clear to auscultation, Normal air movement Heart Exam: Positive: Rate Normal, Normal S1, Normal S2, Negative: Murmurs Abdomen Exam: Positive: Normal bowel sounds, Soft, Negative: Tenderness Extremity Exam: Negative: Edema Neuro Exam: Positive: Normal Speech Psych Exam: Positive: Mental status NL, Mood NL Assessment /Plan Problems (1) Chronic pain Status: Chronic Problem Text: 04/29 -- epidural injection from pain management today. She is still uncomfortable but hopes for that to improve. 04/28 Pain clinic plans to do a steroid injection on Saturday at 09:00; pre-op orders were placed by Pain MEDICAL PRACTICE ADMINISTRATOR. 04/26 - MRI L SPine with diffuse DDD, Disc bulges, Pain Clinic consult pending. 04/25 mainly 2 lumbar DJD 04/11/17 [facility] Pain Clinic referral faxed s response yet-will attempt to consult inpx to attempt interventional rx rather than using as much narcotics which contribute to patient's recurrent HE (2) Pancytopenia Status: Acute Problem Text: 04/29 -- no longer pancytopenic, but simply mildly anemic 04/28 - Continues to improve; monitor 04/26 - Improved today. favor 2 infection, +/- HIT c baseline low 2 ESLD 04/25- worse today-3.2, 10.9, 95K 04/24 Possibly due to infection - urine culture positive today (see below); HIT also possible 04/24 - WBC 3.6, Hgb 11.7, Plts 100 04/23 3.2K/11.7/86K (04/19 plt 181K); therefore, held heparin (3) Urinary tract infection Status: Acute Problem Text: rx as per fever (4) Acute kidney injury Status: Resolved Problem Text: 04/26 - improved today. BUN 17, Scr .96 04/25 21/1.2, 3.8, 2.1 04/24 - Creat 1.25, K 3.3, Na 137, Mg 2.0. Potassium 20 mEq increased from daily to BID dosing today. Furosemide remains on hold. (KES) 04/23 cr to 1.3, K 3.8, Na down to 133, SBP 110s on fur 40 BID, K 20 TID, Mg 64 QD ; therefore, held fur/decreased K to 20 QD (04/22 5 BMs, multiple today-NOT foul smelling ) baseline cr 1.0 (5) Fever Status: Resolved Problem Text: 04/26 - change to Keflex 500 mg po TID 04/24 - Cefazolin D3. No fever in the last 24 hours. May be due to UTI - see below. 04/23 Tm 102 2300, patient tired from diarrhea but s pain-mbael no abdominal pain and no further nausea 04/22 1400 101.9 (new-onset) given h/o recurrent Gr A Strep sepsis (last 01/2017)- probable source of chronic BLE cellulitis; therefore, + cefazolin 1 TID, check BCX x 2, UCX cathed 04/23 CXR NAD 04/22 BCX P 04/22 UCX K. pneumonia 40K sens to cefazolin (6) Hepatic encephalopathy Status: Chronic Response to Treatment: Improving Problem Text: Mental status is at baseline; taking lactulose here and tolerating well. Generally NOT compliant c lactulose at home 04/23 NH3 25 04/22 - She was given lactulose this am x1, non since once dose on 04/20, no BM yesterday, this could be cause of Nausea this am. Spoke with nursing, add back Xifaxan, lactulose needs to be 30 TID, HOLD for diarrhea, NOT prn constipation 04/21 Decreased her lactulose to the amount of lactulose necessary to cause 3 bowel movements daily 04/21 Likely related to hepatic encephalopathy as well as excess narcotic Lactulose dose was increased and Oxycodone held 04/20 NH3 45-baseline (7) Diabetes type 2, controlled Status: Chronic Response to Treatment: Stable Problem Text: Good control on Levemir 6 qhs s hypos (HD Lantus 10 QHS) (8) Cirrhosis Status: Chronic Response to Treatment: Stable Problem Text: Continue lactulose and rifaximin. (9) RENEE on CPAP Status: Chronic (10) Diastolic CHF Status: Chronic Response to Treatment: Stable Problem Text: as per TED Plan/VTE VTE Prophylaxis Ordered?: Yes (SQ heparin) Plan Therapy: PT VS, I&O, 24H, Fishbone Vital Signs/I&O Vital Signs Date Time Temp Pulse Resp B/P (MAP) Pulse Ox O2 Delivery O2 Flow Rate FiO2 04/30/17 14:00 97.7 70 18 145/80 (101) 92 Room Air I&O- Last 24 Hours up to 6 AM 04/30/17 06:00 Intake Total 1420 ml Output Total 0 ml Balance 1420 ml Laboratory Data 24H LABS Laboratory Tests 2 04/30/17 05:46: White Blood Count 6.6, Red Blood Count 3.97L, Hemoglobin 11.9L, Hematocrit 35.5L , Mean Corpuscular Volume 89.4, Mean Corpuscular Hemoglobin 30.0, Mean Corpuscular Hemoglobin Concent 33.5, Red Cell Distribution Width 13.7, Platelet Count 222, Neutrophils (%) (Auto) 81.9H, Lymphocytes (%) (Auto) 13.6L, Monocytes (%) (Auto) 3.3, Eosinophils (%) (Auto) 0.3, Basophils (%) (Auto) 0.1, Neutrophils # (Auto) 5.4, Lymphocytes # (Auto) 0.9L, Monocytes # (Auto) 0.2, Eosinophils # (Auto) 0.0, Basophils # (Auto) 0.0, Large Unclassified Cells % 0.7 , Large Unclassified Cells # 0.1 CBC/BMP Laboratory Tests 04/30/17 05:46 Red Blood Count 3.97 L, Mean Corpuscular Volume 89.4, Mean Corpuscular Hemoglobin 30.0, Mean Corpuscular Hemoglobin Concent 33.5, Red Cell Distribution Width 13.7, Neutrophils (%) (Auto) 81.9 H, Lymphocytes (%) (Auto) 13.6 L, Monocytes (%) (Auto) 3.3, Eosinophils (%) (Auto) 0.3, Basophils (%) ( Auto) 0.1, Neutrophils # (Auto) 5.4, Lymphocytes # (Auto) 0.9 L, Monocytes # ( Auto) 0.2, Eosinophils # (Auto) 0.0, Basophils # (Auto) 0.0 Microbiology Microbiology 04/22/17 Blood Culture - Final, Complete NO GROWTH AFTER 5 DAYS 04/22/17 Blood Culture - Final, Complete NO GROWTH AFTER 5 DAYS 04/22/17 Urine Culture - Final, Complete Klebsiella Pneumoniae BRIE PAGE DO Apr 30, 2017 23:31
--- NOTE | 2017-05-01 00:09 | DS.PDOC ---
Discharge Summary General Date of Admission Apr 18, 2017 at 17:48 Date of Discharge 04/30/2017 Primary Care Physician: Paul Torres M.D. Attending Physician: BRIE PAGE DO Discharge Summary PROCEDURES PERFORMED DURING STAY: [None]. ADMITTING DIAGNOSES: 1. Altered mental status likely secondary to metabolic encephalopathy 2. Lower extremity edema 3. History of hypertension 4. History of CKD 5. Hypothyroidism 6. History of cirrhosis. DISCHARGE DIAGNOSES: 1. Hepatic encephalopathy 2. Chronic pain 3. Pancytopenia 4. UTI 5. history of cirrhosis 6. History of hypertension 7. Acute on chronic renal failure 8. type 2 diabetes mellitus 9. fever 10. obstructive sleep apnea 11. diastolic congestive heart failure 12. Hypothyroidism COMPLICATIONS/CHIEF COMPLAINT: Hepatic Encephalopathy. HPI: This is a 61-year-old female with known history of cirrhosis, hypothyroidism, schizophrenia, portal hypertension, hepatic encephalopathy, objective sleep apnea refusing to CPAP, CK D stage III, hypertension, hyperlipidemia, congestive heart failure, peripheral artery disease who presents complaining of altered mental status. He states she's been having trouble with word findings as well as her mentation over the past week. Patient has been seen by her primary doctor and has been placed on Keflex for lower extremity cellulitis. Patient states the area of erythema has significantly improved. HOSPITAL COURSE: Patient was admitted to the hospital and treated for hepatic encephalopathy with lactulose and rifaximin. Her mental status did improve, though she complained of diarrhea from the lactulose. She was found to have a UTI during her hospitalization, and received 5 days of Keflex prior to discharge. She did have a lot of trouble with chronic pain during her hospitalization, and ultimately had a lumbar epidural steroid injection 04/29. On 04/30/2017 she passed physical therapy and was eager for discharge home, and so she was discharged. DISCHARGE MEDICATIONS: Please see below. ALLERGIES: Please see below. PHYSICAL EXAMINATION ON DISCHARGE: VITAL SIGNS: Please see below. GENERAL: obese female in no acute distress HEENT: MMM, no conjunctivitis, sclera anicteric CARDIOVASCULAR EXAMINATION: regular, without murmurs, rubs or gallops RESPIRATORY EXAMINATION: clear ABDOMINAL EXAMINATION: BS +, soft, nontender-nondistended EXTREMITIES: trace edema SKIN: no breakdown LABORATORY DATA: Please see below. IMAGING: CT brain 04/18 showed There is no hemorrhage, acute infarct or mass. There is evidence for microvascular ischemia and mild chronic parenchymal volume loss. No significant change from the prior studies.. CXR upon admission showed Chronic interstitial coarsening. No focal infiltrate , mass or effusion. PROGNOSIS: fair ACTIVITY: [As tolerated]. DIET: consistent carbohydrate DISCHARGE PLAN: home DISPOSITION: 01 Home, Self-Care. DISCHARGE INSTRUCTIONS: 1. Take all medications as prescribed. 2. Contact the office with any problems or complaisnts ITEMS TO FOLLOWUP ON ON OUTPATIENT: 1. consistency of lactose dosing 2. . 3. . DISCHARGE CONDITION: [Stable]. TIME SPENT ON DISCHARGE: Greater than 15 minutes. Vital Signs/I&Os Vital Signs Date Time Temp Pulse Resp B/P (MAP) Pulse Ox O2 Delivery O2 Flow Rate FiO2 04/30/17 14:00 97.7 70 18 145/80 (101) 92 Room Air I&O- Last 24 Hours up to 6 AM 04/30/17 06:00 Intake Total 1420 ml Output Total 0 ml Balance 1420 ml Laboratory Data Labs 24H Laboratory Tests 2 04/30/17 05:46: White Blood Count 6.6, Red Blood Count 3.97L, Hemoglobin 11.9L, Hematocrit 35.5L , Mean Corpuscular Volume 89.4, Mean Corpuscular Hemoglobin 30.0, Mean Corpuscular Hemoglobin Concent 33.5, Red Cell Distribution Width 13.7, Platelet Count 222, Neutrophils (%) (Auto) 81.9H, Lymphocytes (%) (Auto) 13.6L, Monocytes (%) (Auto) 3.3, Eosinophils (%) (Auto) 0.3, Basophils (%) (Auto) 0.1, Neutrophils # (Auto) 5.4, Lymphocytes # (Auto) 0.9L, Monocytes # (Auto) 0.2, Eosinophils # (Auto) 0.0, Basophils # (Auto) 0.0, Large Unclassified Cells % 0.7 , Large Unclassified Cells # 0.1 CBC/BMP Laboratory Tests 04/30/17 05:46 Red Blood Count 3.97 L, Mean Corpuscular Volume 89.4, Mean Corpuscular Hemoglobin 30.0, Mean Corpuscular Hemoglobin Concent 33.5, Red Cell Distribution Width 13.7, Neutrophils (%) (Auto) 81.9 H, Lymphocytes (%) (Auto) 13.6 L, Monocytes (%) (Auto) 3.3, Eosinophils (%) (Auto) 0.3, Basophils (%) ( Auto) 0.1, Neutrophils # (Auto) 5.4, Lymphocytes # (Auto) 0.9 L, Monocytes # ( Auto) 0.2, Eosinophils # (Auto) 0.0, Basophils # (Auto) 0.0 Microbiology Microbiology 04/22/17 Blood Culture - Final, Complete NO GROWTH AFTER 5 DAYS 04/22/17 Blood Culture - Final, Complete NO GROWTH AFTER 5 DAYS 04/22/17 Urine Culture - Final, Complete Klebsiella Pneumoniae Discharge Medications Scheduled Albuterol/Ipratropium (Ipratropium [place]/Albut 0.5-2.5 (3) mg/3Ml) 1 Deidre Deidre, 1 DEIDRE INH BID, (Reported) Cetirizine HCl (Zyrtec Allergy) 10 Mg Cap, 10 MG PO DAILY, (Reported) Insulin Glargine (Lantus) 1 Units/0.01 Ml Susp, 10 UNITS SC QHS, (Reported) Lactulose (Lactulose) 10 Gm/15 Ml Deidre, 30 ML PO TID hold for diarrhea Levothyroxine Sodium (Synthroid) 50 Mcg Tab, 50 MCG PO DAILY, (Reported) Metoprolol Tartrate (Metoprolol Tartrate) 25 Mg Tab, 12.5 MG PO BID Multivitamins (Multivitamin Adults) 1 Tab Tab, 1 TAB PO DAILY, (Reported) Nortriptyline HCl (Nortriptyline HCl) 10 Mg Cap, 10 MG PO QHS Omeprazole (Omeprazole) 40 Mg Cap, 40 MG PO DAILY, (Reported) Pantoprazole Sodium Sesquihydr (Protonix) 40 Mg Tab, 40 MG PO DAILY, (Reported) Potassium Chloride (Klor-Con M10) 10 Meq Tabcr, 20 MEQ PO BID Rifaximin (Xifaxan) 550 Mg Tab, 550 MG PO BID Scheduled PRN Albuterol Sulfate (Albuterol Sulfate) 2.5 Mg/3 Ml Nebu, 2.5 MG INH Q2H PRN for SOB/WHEEZING, (Reported) Artificial Tears (Artificial Tears) 1.4 % Deidre, 1 DROP OU Q4H PRN for DRY EYES, ( Reported) Hydroxyzine HCl (Hydroxyzine HCl) 25 Mg Tab, 25 MG PO TID PRN for ITCHING, ( Reported) Lidocaine HCl (Lidocaine 5% Ointment) 1 Dose/35.44 Gm Oint, 1 DOSE TOP BID PRN for PAIN, (Reported) LUMBAR REGION Milk Of Magnesia (Milk of Magnesia) 1,200 Mg/15 Ml Farideh, 10 ML PO DAILY PRN for CONSTIPATION, (Reported) Ondansetron HCl (Zofran) 4 Mg Tab, 4 MG PO Q6H PRN for NAUSEA OR VOMITING, ( Reported) Oxycodone HCl (Oxycodone HCl) 5 Mg Tab, 5 MG PO Q4H PRN for PAIN, (Reported) Allergies Coded Allergies: Quinolones (Verified Allergy, Severe, HIVES,DIFFICULTY BREATHING & CONFUSION WHILE ON CIPRO, 10/25/16) Ibuprofen (Verified Allergy, Intermediate, HIVES WITH IBUPROFEN ONLY, 06/28) IS ABLE TO TAKE BABY ASPIRIN Penicillins (Verified Allergy, Unknown, HIVES, 12/28/16) BRIE PAGE DO May 01, 2017 00:09
== END 2017-04-30 16:37 | disposition home health service (06) | DRG 279 ==
LOC: M ED 12:38 → EDBD 12:38 → M ED INP 17:48 → M PCU 19:44 → M MSPAV 04-20 17:22
PROVIDERS: ADMIT Internal Medicine; ATTEND Family Medicine
PROC: 3E0R33Z Introduction of Anti-inflammatory into Spinal Canal, Percutaneous Approach (ICD-10-PCS; principal; 2017-04-29)
DX: K72.90 Hepatic failure, unspecified without coma (principal); D61.818 Other pancytopenia; N17.9 Acute kidney failure, unspecified; I13.0 Hypertensive heart and chronic kidney disease with heart failure and stage 1 through stage 4 chronic kidney disease, or unspecified chronic kidney disease; I50.32 Chronic diastolic (congestive) heart failure; K76.6 Portal hypertension; N18.3 Chronic kidney disease, stage 3 (moderate); E11.40 Type 2 diabetes mellitus with diabetic neuropathy, unspecified; N39.0 Urinary tract infection, site not specified; Z68.41 Body mass index [BMI] 40.0-44.9, adult; E03.9 Hypothyroidism, unspecified; F20.9 Schizophrenia, unspecified; G47.33 Obstructive sleep apnea (adult) (pediatric); I73.9 Peripheral vascular disease, unspecified; E66.9 Obesity, unspecified; K74.60 Unspecified cirrhosis of liver; M51.16 Intervertebral disc disorders with radiculopathy, lumbar region; G89.29 Other chronic pain; R50.9 Fever, unspecified; B96.1 Klebsiella pneumoniae [K. pneumoniae] as the cause of diseases classified elsewhere; Z91.14 Patient's other noncompliance with medication regimen; Z88.0 Allergy status to penicillin; Z79.891 Long term (current) use of opiate analgesic; Z88.6 Allergy status to analgesic agent; Z79.4 Long term (current) use of insulin; Z79.899 Other long term (current) drug therapy; Z88.1 Allergy status to other antibiotic agents

== ENCOUNTER → 2017-05-07 | Outpatient (REF) | payer MEDICAID ==
[~2017-05-07] MED LIST changes: +ARTI99.0 OU; +INSULANT SC; +IPRASOL4 INH; +K-TA1TAB PO; +LACT10SO3 PO; +LIDO1OIN2 TOP; +MAGN500T5 PO; +METO1TAB87 PO; +MULT1TAB10 PO; +NORT10CA2 PO; +OMEP40CA2 PO; +OXYC-517 PO; +POTA10CA PO; +ZYRT10CA PO
[2017-05-07 15:49] LABS: MEAN CORPUSCULAR HEMOGLOBIN 30.5 pg (27.0-33.0); MEAN CORPUSCULAR HGB CONC 33.4 g/dl (32.0-36.5); MEAN CORPUSCULAR VOLUME 91.5 fl (80.0-96.0); RED CELL DISTRIBUTION WIDTH 13.3 % (11.5-14.5); WHITE BLOOD COUNT 5.4 K/mm3 (4.0-10.0)
[2017-05-07 16:02] LABS: CALCIUM LEVEL 8.6 MG/DL (8.8-10.2); CREATININE FOR GFR 1.01 MG/DL (0.55-1.02); GLOMERULAR FILTRATION RATE 59.1 (>45); MAGNESIUM LEVEL 1.8 MG/DL (1.8-2.4); POTASSIUM SERUM 3.9 MEQ/L (3.5-5.1)
== END ==
LOC: M SFHCPLAZ 11:05
PROVIDERS: ATTEND Physician Assistant Medical
DX: K72.90 Hepatic failure, unspecified without coma (principal); I50.30 Unspecified diastolic (congestive) heart failure; N18.6 End stage renal disease

== ENCOUNTER → 2017-05-15 | Outpatient (REF) | payer MEDICAID ==
[2017-05-15 17:46] LABS: FREE T4 1.51 NG/DL (0.76-1.46)
== END ==
LOC: M SFHCPLAZ 10:29
PROVIDERS: ATTEND Physician Assistant Medical
DX: K72.90 Hepatic failure, unspecified without coma (principal); E03.9 Hypothyroidism, unspecified

== ENCOUNTER → 2017-05-23 | Outpatient (REF) | payer MEDICAID ==
[2017-05-23 13:11] LABS: MEAN CORPUSCULAR HEMOGLOBIN 29.9 pg (27.0-33.0); MEAN CORPUSCULAR HGB CONC 33.6 g/dl (32.0-36.5); MEAN CORPUSCULAR VOLUME 89.1 fl (80.0-96.0); RED CELL DISTRIBUTION WIDTH 13.2 % (11.5-14.5); WHITE BLOOD COUNT 5.8 K/mm3 (4.0-10.0)
[2017-05-23 13:26] LABS: ALBUMIN/GLOBULIN RATIO 0.63 (1.00-1.93); BILIRUBIN,TOTAL 0.5 MG/DL (0.2-1.0); CREATININE FOR GFR 1.27 MG/DL (0.55-1.02); GLOMERULAR FILTRATION RATE 45.4 (>45); MAGNESIUM LEVEL 1.6 MG/DL (1.8-2.4); TOTAL PROTEIN 7.8 GM/DL (6.4-8.2)
[2017-05-23 13:39] LABS: ERYTHROCYTE SEDIMENTATION RATE 66 mm/hr (0-30)
== END ==
LOC: M SFHCPLAZ 10:03
PROVIDERS: ATTEND Family Medicine
DX: I50.30 Unspecified diastolic (congestive) heart failure (principal)

== ENCOUNTER → 2017-05-28 | Outpatient (REF) | payer MEDICAID ==
[2017-05-28 15:58] LABS: MEAN CORPUSCULAR HEMOGLOBIN 29.3 pg (27.0-33.0); MEAN CORPUSCULAR HGB CONC 33.2 g/dl (32.0-36.5); MEAN CORPUSCULAR VOLUME 88.4 fl (80.0-96.0); RED CELL DISTRIBUTION WIDTH 13.2 % (11.5-14.5); WHITE BLOOD COUNT 6.3 K/mm3 (4.0-10.0)
[2017-05-28 16:03] LABS: CALCIUM LEVEL 9.5 MG/DL (8.8-10.2); CREATININE FOR GFR 1.24 MG/DL (0.55-1.02); GLOMERULAR FILTRATION RATE 46.7 (>45); MAGNESIUM LEVEL 1.9 MG/DL (1.8-2.4); PHOSPHORUS LEVEL 4.1 MG/DL (2.5-4.9); POTASSIUM SERUM 4.2 MEQ/L (3.5-5.1)
[2017-05-28 16:47] LABS: EOSINOPHILS 4 % (0-5); PLATELET CLUMPS MODERATE AMT
== END ==
LOC: M SFHCPLAZ 12:51
PROVIDERS: ATTEND Family Medicine
DX: I50.30 Unspecified diastolic (congestive) heart failure (principal); E11.69 Type 2 diabetes mellitus with other specified complication

== ENCOUNTER → 2017-06-21 | Outpatient (CLI) | payer MEDICAID ==
--- NOTE | 2017-07-03 01:14 | ECWPNPC ---
PATIENT NAME: HODAN FARFAN : 1955 GENDER: FEMALE VISIT DATE: 06/21/2017 DISCHARGE DATE: 06/21/17 1410 VISIT LOCKED DATE TIME: PHYSICIAN: CAMACHO HERNANDEZ PHYSICIAN PAGER NO: [phone] RESOURCE: CAMACHO HERNANDEZ REASON FOR APPOINTMENT 1. LOW BACK PAIN HISTORY OF PRESENT ILLNESS FALL RISK SCREENING: SCREENING :NO FALLS IN THE PAST YEAR 61 YEAR OLD FEMALE PATIENT WITH HISTORY OF CHRONIC LOW BACK PAIN. PATIENT DESCRIBES THE PAIN ACHING, THROBBING, TENDER, SORE AND A PAIN SCORE OF 6/10. PATIENT RECEIVED A LUMBAR EPIDURAL ON 04/29/17 AND REPORTS GETTING SEVERAL WEEKS OF OVER 50% RELIEF WITH INCREASED MOBILITY AND FUNCTIONALITY. CURRENTLY THE PATIENT IS USING GABAPENTIN, OXYCODONE, AND TIZANIDINE AND STATES THAT EVEN WITH THE MEDICATION SHE STILL HAS SEVERE PAIN. PATIENT DENIES UNEXPLAINABLE WEIGHT LOSS, FEVER, CHILLS, NEW CHANGES ON HER URINARY OR BOWEL CONTROL. PAIN SCREENING: PATIENT HAS A COMPLAINT OF ACUTE OR CHRONIC PAIN :YES CURRENT MEDICATIONS TAKING MAGNESIUM 500 MG TABLET 1 TABLET WITH A MEAL ORALLY ONCE A DAY, NOTES: 04/28 1000 TAKING MISC. DEVICES 30 GAUGE X 3/16 B-D AUTOSHIELD PEN NEEDLES DIRECTED INTRADERMALLY DAILY - ICD 10 E11.9 TAKING JOBST ACTIVE 15-20MMHG X-LARGE 0 MISCELLANEOUS DIRECTED - -, NOTES: TOO PAINFUL TO APPLY TAKING DEPEND PANT EXTRA LARGE DEPENDS MISCELLANEOUS HIP - 155 CM; WAIST - 146 CM ICD:N39.490 EVERY 2-4 HOURS NEEDED MDD: 5 BRIEFS TAKING ONE TOUCH DELICA 33 GAUGE DIRECTED E11.8; E11.9 TWICE A DAY BEFORE BREAKFAST AND DINNER TAKING ALBUTEROL SULFATE HFA 108 (90 BASE) MCG/ACT AEROSOL SOLUTION 2 PUFFS INHALATION EVERY 4 HOURS NEEDED, NOTES: > 3 DAYS TAKING ZOFRAN 4 MG TABLET 1 TAB ORALLY Q6H PRN NAUSEA, NOTES: NOT TAKING TAKING BD ULTRA-FINE LANCETS - MISCELLANEOUS DIRECTED USE BID FOR GLUCOSE MONITORING DX=E11.9 TAKING ATTENDS BRIEFS X-LARGE - MISCELLANEOUS DIRECTED QID DX N39.3 TAKING [facility] BLOOD GLUCOSE TEST STRIPS - STRIP DIRECTED IN VITRO BID TAKING HOSPITAL BED HOSPITAL BED SEMI-ELECTRIC WITH HEAVY DUTY MATTRESS WEIGHT :337 DX: J44.9, DX: M50.30 FOR LIFETIME USE AND PURCHASE TAKING COMPRESSION STOCKINGS 30-40MM/HG KNEE HIGH DIRECTED DX : B/L LOWER EXTREMITY LYMPHADEMA DAILY WHEN OUT OF BED TAKING INSULIN PEN NEEDLE 31G X 6 MM MISCELLANEOUS DIRECTED SQ DAILY BEFORE BEDTIME DX:E11.8 TAKING CETIRIZINE HCL 10 MG TABLET 1 TABLET ORALLY ONCE A DAY, NOTES: > 3 DAYS TAKING PROLIA 60 MG/ML SOLUTION SUBCUTANEOUS EVERY SIX MONTHS TAKING LEVOTHYROXINE SODIUM 50 MCG TABLET 1 CAPSULE ORALLY ONCE A DAY TAKING PROZAC 20 MG CAPSULE 3 CAPS ORALLY ONCE A DAY TAKING HYDROXYZINE HCL 25 MG TABLET 1 TABLET NEEDED ORALLY QHS PRN ITCH TAKING PROLIA 60MG/ML DIRECTED TAKING METOPROLOL SUCCINATE ER 50 MG TABLET EXTENDED RELEASE 24 HOUR 1/2 TABLET ORALLY TWICE A DAY TAKING DUONEB 0.5-2.5 (3) MG/3ML SOLUTION 3 ML INHALATION BID TAKING DESITIN 13 % CREAM 1 APPLICATION TO AFFECTED AREA EXTERNALLY Q2 HRS WITH BRIEF CHANGE TAKING HYDROPHOR - OINTMENT THIN LAYER OVER NON-SORE AREAS OF LEGS EXTERNALLY DAILY TAKING OMEPRAZOLE 40 MG CAPSULE DELAYED RELEASE 1 CAPSULE ORALLY ONCE A DAY TAKING XIFAXAN 550 MG TABLET 1 TABLET ORALLY TWICE A DAY TAKING LACTULOSE 10 GM/15ML SYRUP 15 ML ORALLY THREE TIMES A DAY TAKING NORTRIPTYLINE HCL 10 MG CAPSULE 1 CAPSULE ORALLY ONCE A DAY TAKING ONETOUCH VERIO - STRIP DIRECTED SUBCUTANEOUSLY AC BID TAKING LANTUS 100 UNIT/ML SOLUTION 10 UNITS SUBCUTANEOUS BEFORE BEDTIME TAKING SPIRONOLACTONE 50 MG TABLET 1 TAB ORALLY BID TAKING LASIX 40 MG TABLET 1 TABLET ORALLY BID TAKING TIZANIDINE HCL 4 MG TABLET 1 TABLET NEEDED ORALLY THREE TIMES A DAY PRN BACK SPASMS TAKING INCRUSE ELLIPTA 62.5 MCG/INH AEROSOL POWDER BREATH ACTIVATED 1 PUFF INHALATION ONCE A DAY TAKING ASMANEX 120 METERED DOSES 220 MCG/INH AEROSOL POWDER BREATH ACTIVATED 2 PUFFS INHALATION TWICE DAILY TAKING OXYCODONE HCL 5 MG TABLET 1 TABLET ORALLY EVERY 6 HRS PRN PAIN, MDD 4 TAKING GABAPENTIN 600 MG TABLET 1 TABLET ORALLY BID TAKING POTASSIUM CHLORIDE JYOTSNA ER 10 MEQ TABLET EXTENDED RELEASE 2 TABLETS WITH FOOD ORALLY TWICE DAILY TAKING KEFLEX 500 MG CAPSULE 1 CAPSULE ORALLY DAILY MEDICATION LIST REVIEWED AND RECONCILED WITH THE PATIENT PAST MEDICAL HISTORY OBESITY, MORBID CERVICAL/THORACIC/LUMBAR DJD-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 BARAHONA, [facility], [place] OBSTRUCTIVE SLEEP APNEA HYPERLIPIDEMIA 2B COPD-07/2011 FEV1 1.9L (71%)/RATIO 92% T2DM ID GERD/HIATAL HERNIA-SEEN BY APRIL 2011 UPPER GI WITH SMALL BOWEL FOLLOW-THROUGH SCHIZOAFFECTIVE DISORDER-SPELLED BY DR. OSBORNE NONALCOHOLIC FATTY LIVER DISEASE-SEEN BY MARCH 2011 CT-NORMAL WORKUP 2010--CHRONIC HEPATITIS GRADE 2/4 WITH GRADE 4/4 CIRRHOSIS BY LIVER BIOPSY JULY 2011 VASOMOTOR SYMPTOMS VITAMIN D DEFICIENCY ALLERGIC RHINITIS RECURRENT CANDIDAL DERMATITIS ANTERIOR ABDOMEN LEUKOPENIA, CHRONIC CHRONIC ANTERIOR ABDOMINAL WALL PANNICULITIS PORTAL VENOUS HYPERTENSION SEEN BY MARCH 2011 CT CKD III-12/2013 NORMAL B RENAL US CHF 2 DIASTOLIC DYSFUNCTION-01/2017 TTE-GUADALUPE C GRADE 1 DIASTOLIC DYSFUNCTION, VERY MILD MR/TR B SHOULDER IMPIGNMENT SYNDROME-09/2015 L SHOULDER XRAY C MILD AC ARTHRITIS//S/P R PROXIMAL HUMERUS FRACTURE S/P MECHANICAL [id number] PER HEBERT RECURRENT HEPATIC ENCEPHALOPATHY-01/2017 MRI BRAIN MILD /VOLUME LOSS ALLERGIES CIPRO: CONFUSION: SIDE EFFECTS DOXYCYCLINE HYCLATE: ITCHY: ALLERGY MOTRIN: HIVES: ALLERGY SURGICAL HISTORY [place]/BSO FOR NONCANCEROUS REASON-MAGDALENE 2002 EGD/[id number] GASTRITIS/PANDIVERTICULOSIS/LARGE HIATAL HERNIA/NEGATIVE SMALL BOWEL BIOPSY NOVEMBER 2009 NEGATIVE LUMBAR PUNCTURE FOR MS-LUDMILA JANUARY 2008 EGD-HIATAL HERNIA, NO EVIDENCE OF MASS AMPULLA OF VATER-ROHAN MARCH 2011 HARD PALATE EXCISIONAL BIOPSY-ULCERATED HEMANGIOMA-OPAL MARCH 2011 RIGHT HIP REPAIR AND FEMUR REPAIR FAMILY HISTORY FATHER: 70 YRS, DIAGNOSED WITH OTHER MOTHER: 60 YRS, DIAGNOSED WITH OTHER 2 BROTHER(S) , 4 SISTER(S) - HEALTHY. 3DAUGHTER(S) - HEALTHY. MOTHER- EMPHASEMAFATHER-COPD. SOCIAL HISTORY GENERAL: TOBACCO USE ARE YOU A:NONSMOKER BMI CARE GOAL FOLLOW-UP ABOVE NORMAL BMI FOLLOW-UPGIVING ENCOURAGEMENT TO EXERCISE ALCOHOL SCREENING DID YOU HAVE A DRINK CONTAINING ALCOHOL IN THE PAST YEAR?NO POINTS0 INTERPRETATIONNEGATIVE CAFFEINE OCCASIONAL ONLY. SEXUAL HX HAD SEX IN THE LAST 12 MONTHS (VAGINAL, ORAL, OR ANAL)?NO HAVE YOU EVER HAD AN STD?NO OCCUPATION: RETIRED. DIET: CARBOHYDRATE CONTROLLED. EXERCISE: NO REGULAR EXERCISE. MARITAL STATUS: SINGLE. SCIENTOLOGY [id number] JAINISM LANGUAGE LANGUAGES SPOKEN:[place] ISLANDER EDUCATION LEVEL OF EDUCATION:FINISHED HIGH SCHOOL LEARNING BARRIERS / SPECIAL NEEDS CHANGE FROM LAST VISIT?NO BARRIERS TO LEARNING?NO HEARING IMPAIRED?NO VISION IMPAIRED?YES :CORRECTIVE LENSES COGNITIVELY IMPAIRED?NO READINESS TO LEARN?YES LEARNING PREFERENCES?NO LEARNING CAPABILITIES PRESENT?YES EMOTIONAL BARRIERS?NO SPECIAL DEVICES?NO ACCOUNTING MACHINE MECHANIC NEEDED?NO PAIN CLINIC PFS, CLERGY, PUBLIC HEALTH REFERRALS HAS THE PATIENT BEEN EDUCATED REGARDING HIS/HER PLAN OF CARE?YES HAS THE PATIENT BEEN EDUCATED REGARDING PAIN, THE RISK FOR PAIN, THE IMPORTANCE OF EFFECTIVE PAIN MANAGEMENT, AND THE PAIN ASSESSMENT PROCESS?YES ADVANCE DIRECTIVES HEALTH CARE PROXY?NO WOULD YOU LIKE MORE INFORMATION?NO DO YOU HAVE A DNR?NO WOULD YOU LIKE MORE INFORMATION?NO LIVING WILL?NO WOULD YOU LIKE MORE INFORMATION?NO POWER OF PICKER OPERATOR?NO WOULD YOU LIKE MORE INFORMATION?NO TRAVEL OUTSIDE US: NO. HOUSING: [facility]. DOMESTIC VIOLENCE DO YOU FEEL SAFE IN YOUR ENVIRONMENT?YES LIVES WITH DAUGHTER WHO IS HCP05/2012-11/2013 RESIDED AT [facility] UNDER DR. SUGGS'S. HOSPITALIZATION/MAJOR DIAGNOSTIC PROCEDURE RECURRENT NAUSEA/VOMITING-NEGATIVE BLOOD CULTURE X2/NEGATIVE URINE CULTURE APRIL 05-2010 MS CHANGE 2 MEDICATIONS/HEPATIC ENCEPHALOPATHY-PEAK [id number] AMBIEN, VICODIN, ZANAFLEX/NEGATIVE UCX/BCX X2 01/29-02/06/2012 MS CHANGE 2 HEPATIC ENCEPHALOPATY-HEAD CT C MILD ATROPHY 02/2012 MS CHANGE 2 HEPATIC ENCEPHALOPATHY, INCREASED PERIPHERAL EDEMA 04/2012 MS CHANGE ? 2 HEPATIC ENCEPHALOPATHY VS 2 SCHIZOAFFECTIVE DISORDER-ADMISSION NH3 32, NEGATIVE HEAD CT, B12 LEVEL, SX RESOLVED IN HOURS 05/2012 SYMPTOMATIC HYPONATRIEMIA/HYPOKALEMIA (116, 2.9 ON ADMISSION) 2 ESLD/ASCITES C OVERDIURESIS-LASIX 40 BID AND SPIROLACTONE 50 BID HELD 12/30- LLE CELLULITIS-ONSET DAY OF ADMISSION-RXED C ZOSYN 7D THEN CEFTAROLINE 5D-04/25/1409/24 BCX K PNEUMONIA, 04/28/14 UCX NGCS, 05/04, , -BCX X 1 EACH DAY -, CXR C MILD B PVC, 04/25/2014 - LLE EVT US 04/25- LLE CELLULITIS WITH S. SIMULANS AND C- STAPH BCX 09/24, P. AERUGENOSA BY BCX 09/24 RXED C LEVAQUIN 10D, UCX NG, CT CHEST S/ C - 06/22-06/30/14 INCREASED BLE EDEMA =/- BLE CELLULITIS, ASX UCX C E. COLI ESBL (AFEBRILE, PRESENTING WBC 4.2) RXED C ZOSYN 3D THEN BACTRIM 2D, - BCX X 2, - CXR, - B TIB/FIB XRAY 09/03- LLE CELLULITIS/SIRS- -BCX X 2, -LLE DVT US, RXED C CEFAROLINE BUT D/MOUSTAPHA ON KEFLEX 500 BID, UCX NG, - MRSA SCREEN, ADMISSION WBC 14.3, CRP 7.9 11/14- LLE CELLULITIS-- BCX X 2, SCX C FEW COAG NEG STAPH, RX C CEFTAROLINE IV, D/MOUSTAPHA ON DOXY PO 03/10- LLE CELLULITIS/SIRS-RX C CEFTAROLINE-(ADMISSION WBC 17.9, D/C 5.8, NO CRP/ESR DONE, BCX - X 2) 04/23-03/07 LLE CELLULITIS/SIRS-BETH CHANGED CEFTAROLINE TO KEFLEX 500 QID AND RECOMMENDED 500 QD SUPPRESSION FAVORING RECURRENT MSSA, - NASAL SWAB MRSA SCREEN AND CULTURE, - BCX X2, -MRI L FOOT/THIGH, -LLE DVT US 06/15-06/23/15 ACUTE HYPOXIC RESPIRATORY FAILURE 2 ARDS FROM ASPIRATION PN/CARDIOGENIC SHOCK-ON MECHANICAL VENTILATION X 1W, RUE NONOCCLUSIVE CEPHALIC DVT-NOT TREATED/THEN TO [facility] UNTIL 07/05/1604/04-04/26/16 BROKEN SHOULDER- ALC FOR 2 WEEK 10/15-10/17/16 HEPATIC ENCEPHALOPATHY 01/02/17-01/04/17 HEPATIC ENCEPHALOPATHY, DECOMPENSATED CHF, UTI, - BLE DVT US 04/18-04/30/17 REVIEW OF SYSTEMS REVIEWED BY: PROVIDER: CAMACHO HERNANDEZ MD . CONSTITUTIONAL: ANY CHANGE IN YOUR MEDICAL CONDITION? NO . CHILLS NO . FEVER NO . INFECTION: DO YOU HAVE NEW INFECTIONS? NO . DO YOU HAVE HISTORY OF MRSA? NO . MUSCULOSKELETAL: ANY NEW PATTERNS OF PAIN OR NUMBNESS? NO . SYTEMIC LUPUS NO . GASTROENTEROLOGY: ANY NEW CHANGE IN BOWEL CONTROL? NO . BARRETTS ESOPHAGUS NO . CIRRHOSIS NO . HEPATITIS NO . LIVER FAILURE YES, HX OF HEPATIC ECNCEPHALOPATHY . ACID REFLUX NO . UNEXPLAINED WEIGHT LOSS NO . GENITOURINARY: ANY NEW CHANGE IN BLADDER CONTROL? NO . IS THERE A CHANCE YOU COULD BE ? NO . HEMATOLOGY/LYMPH: DO YOU TAKE ANY BLOOD THINNERS? (FOR EXAMPLE- COUMADIN, PLAVIX, AGGRENOX, PLATEL, PRADAXA, OR XARELTO) NO . WHEN WAS YOUR LAST DOSE? DATE: TIME: . LOW PLATELET COUNT NO . SICKLE CELL DISEASE NO . VON WILLIEBRANDS NO . FACTOR V LEIDEN NO . THALLASEMIA NO . ANEMIA NO . EASY BRUISING NO . NEUROLOGY: HAVE YOU FALLEN IN THE PAST 6 MONTHS? NO . ANY NEW EXTREMITY NUMBNESS OR WEAKNESS? NO . HEAD INJURY NO . DEMENTIA NO . CEREBRAL PALSY NO . MULTIPLE SCLEROSIS NO . DIZZINESS NO . HEADACHE NO . STROKES NO . VERTIGO NO . CARDIOLOGY: DO YOU HAVE A PACEMAKER OR DEFIBRILLATOR? NO . ANGINA NO . HEART ATTACK NO . HEART SURGERY NO . CONGESTIVE HEART FAILURE/FLUID OVERLOAD NO . CHEST PAIN NO . HIGH BLOOD PRESSURE NO . IRREGULAR HEART BEAT NO . RESPIRATORY: HAVE YOU BEEN SICK IN THE PAST WEEK? NO . FEVER NO . FLU LIKE SYMPTOMS? NO . CPAP NO . BYPAP NO . ASTHMA NO . EMPHYSEMA NO . CHRONIC LUNG DISEASES NO . SHORTNESS OF BREATH ON EXERTION NO . COUGH NO . SNORING NO . INTEGUMENTARY: DO YOU HAVE ANY RASHES OR OPEN SORES? NO . ALLERGIC/IMMUNO: ARE YOU ALLERGIC TO SHELLFISH OR IV DYE? NO . ANY NEW ALLERGIES? NO . PSYCHIATRIC: DO YOU HAVE THOUGHTS OF HURTING YOURSELF OR SOMEONE ELSE? NO . ARE YOU ABUSED, NEGLECTED, OR IN AN UNSAFE ENVIRONMENT? NO . ENDOCRINOLOGY: ARE YOU DIABETIC? YES . THYROID DISORDER HYPOTHYROID . OTHER: DO YOU NEED ANY PRESCRIPTIONS? NO . IF YES, PLEASE LIST: ____ . ANY NEW PROBLEMS WITH YOUR MEDICATIONS? NO . WHEN DID YOU LAST EAT? ____ . WHEN DID YOU LAST DRINK? ____ . WHAT DID YOU LAST DRINK? ____ . NAME OF PERSON DRIVING YOU HOME? ____ . DO YOU HAVE ANY OTHER QUESTIONS OR CONCERNS NO . VITAL SIGNS WT 255 LBS, HT 78 IN, BMI 29.46 INDEX, BP 121/71 MM HG, RR 92 /MIN, TEMP 97.2 F, OXYGEN SAT % 95, SAFE IN ENV? (Y/N) YES, REVIEWED BY: KG. EXAMINATION : PATIENT IS ALERT O X 3 AND COOPERATIVE. TENDERNESS IN THE LOWER BACK AND PARASPINAL MUSCLE GROUP. RIGHT LEG WEAKER THEN THE LEFT AT EXTENSION AND FLEXION. MRI OF THE LUMBAR SPINE DONE ON 04/25/17 SHOWS A DISC BULGE AT L2-L3 THROUGH L5-S1 WELL FACET HYPERTROPHY. ASSESSMENTS INTERVERTEBRAL DISC DISORDER WITH RADICULOPATHY OF LUMBAR REGION - M51.16 (PRIMARY) INTERVERTEBRAL DISC DISORDER WITH RADICULOPATHY OF LUMBOSACRAL REGION - M51.17 TREATMENT INTERVERTEBRAL DISC DISORDER WITH RADICULOPATHY OF LUMBAR REGION NOTES: WE DISCUSSED SEVERAL ISSUES WITH MRS. FARFAN'S PAIN MANAGEMENT CASE. AT THIS TIME I WOULD LIKE THE PATIENT TO INCREASE HER GABAPENTIN TO 3 TABLETS A DAY. IF THE PATIENT HAS ANY ADVERSE SIDE EFFECTS THE PATIENT WAS ADVISED TO DECREASE THE TABLETS. I WOULD LIKE TO SPEAK WITH THE PATIENT'S PRIMARY DOCTOR, DR. KELSEY TO FURTHER DISCUSS MEDICATION MANAGEMENT. INTERVENTIONS WILL NOT BE HELD AT THIS TIME SHE STATES THE LUMBAR EPIDURAL IS STILL GIVING HER RELIEF. PATIENT WILL RETURN TO THE CLINIC IN 2 MONTHS. INSTRUCTIONS WERE GIVEN, QUESTIONS WERE ANSWERED, PATIENT REPORTS UNDERSTANDING AND AGREES WITH THE PLAN. I, OSVALDO HERNANDEZ, DOCUMENTED THE ABOVE INFORMATION ACTING A SCRIBE FOR DR. HERNANDEZ. I HAVE REVIEWED THE ABOVE DOCUMENT, WRITTEN BY OSVALDO APONTE AND I VERIFY THAT IT IS ACCURATE. OTHERS CONTINUE GABAPENTIN TABLET, 600 MG, 1 TABLET, ORALLY FOR PAIN, THREE TIMES DAILY MDD3, 30 DAY(S), 90, REFILLS 1 PROCEDURE CODES FA211 ESTABILISHED PATIENT [facility] FACILITY CHARGE G8427 DOC MEDS VERIFIED W/PT OR RE S2643 PAIN ASSESS POS TOOL F/U PLAN DOC DISPOSITION & COMMUNICATION FOLLOW UP 3 WEEKS ELECTRONICALLY SIGNED BY CAMACHO HERNANDEZ MD ON 07/01/2017 AT 04:47 PM EDT DISCLAIMER : THIS IS A VISIT SUMMARY EXTRACTED FROM THE [employer] CHART. IT IS NOT A COPY OF THE [employer] PROGRESS NOTE. ALTAGRACIA
== END ==
LOC: M PAIN 13:30
PROVIDERS: ATTEND Anesthesiology
DX: M51.16 Intervertebral disc disorders with radiculopathy, lumbar region (principal); M51.17 Intervertebral disc disorders with radiculopathy, lumbosacral region; G89.29 Other chronic pain; E11.8 Type 2 diabetes mellitus with unspecified complications; I11.0 Hypertensive heart disease with heart failure; I50.30 Unspecified diastolic (congestive) heart failure; K21.9 Gastro-esophageal reflux disease without esophagitis; E03.9 Hypothyroidism, unspecified; J44.9 Chronic obstructive pulmonary disease, unspecified; N18.6 End stage renal disease; K72.90 Hepatic failure, unspecified without coma; D50.8 Other iron deficiency anemias; F25.1 Schizoaffective disorder, depressive type; M85.80 Other specified disorders of bone density and structure, unspecified site; Z79.4 Long term (current) use of insulin; Z79.891 Long term (current) use of opiate analgesic; Z79.899 Other long term (current) drug therapy

== ENCOUNTER → 2017-07-05 | Outpatient (REF) | payer MEDICAID ==
[2017-07-05 12:54] LABS: BASO % 0.5 % (0.0-1.0); EOS # 0.2 10^3/uL (0.0-0.50); EOS % 2.5 % (0.0-3.0); IMMATURE GRANULOCYTE % 0.2 % (0-0); LYMPH # 1.3 10^3/uL (1.5-4.5); LYMPH % 20.2 % (24.0-44.0); MEAN CORPUSCULAR HEMOGLOBIN 28.1 pg (27.0-33.0); MEAN CORPUSCULAR HGB CONC 32.4 g/dl (32.0-36.5); MEAN CORPUSCULAR VOLUME 86.6 fl (80.0-96.0); MONO # 0.5 10^3/uL (0.0-0.8); MONO % 7.8 % (0.0-5.0); NEUTROPHILS # 4.4 10^3/uL (1.8-7.7); NEUTROPHILS % 68.8 % (36.0-66.0); PLATELET COUNT, AUTOMATED 146 10^3/uL (150-450); RED CELL DISTRIBUTION WIDTH 14.7 % (11.5-14.5); WHITE BLOOD COUNT 6.4 10^3/uL (4.0-10.0)
[2017-07-05 13:02] LABS: ALBUMIN 2.8 GM/DL (3.2-5.2); ALBUMIN/GLOBULIN RATIO 0.65 (1.00-1.93); BILIRUBIN,TOTAL 0.7 MG/DL (0.2-1.0); CALCIUM LEVEL 8.9 MG/DL (8.8-10.2); CREATININE FOR GFR 1.13 MG/DL (0.55-1.02); GLOMERULAR FILTRATION RATE 51.9 (>45); POTASSIUM SERUM 4.4 MEQ/L (3.5-5.1); TOTAL PROTEIN 7.1 GM/DL (6.4-8.2)
[2017-07-05 13:03] LABS: PERCENT SATURATION 12.5 % (13.2-45.0)
== END ==
LOC: M SFHCPLAZ 09:11
PROVIDERS: ATTEND Family Medicine
DX: D50.8 Other iron deficiency anemias (principal); I50.30 Unspecified diastolic (congestive) heart failure

== ENCOUNTER → 2017-08-27 | Outpatient (CLI) | payer OTHER ==
[~2017-08-27] MED LIST changes: +ASMA220A; +FURO40TA2; +GABA-282; +INCR1INH; +MAG400TA; +METO1TAB7 PO
--- NOTE | 2017-09-11 01:26 | ECWPNPC ---
PATIENT NAME: HODAN FARFAN : 1955 GENDER: FEMALE VISIT DATE: 08/27/2017 DISCHARGE DATE: 08/27/17 1504 VISIT LOCKED DATE TIME: PHYSICIAN: CAMACHO HERNANDEZ PHYSICIAN PAGER NO: [phone] RESOURCE: CAMACHO HERNANDEZ REASON FOR APPOINTMENT 1. LOW BACK PAIN HISTORY OF PRESENT ILLNESS HISTORY OF PRESENT ILLNESS: PAIN THE PATIENT DESCRIBES THE PAIN... 61 YEAR OLD FEMALE PATIENT WITH HISTORY OF [place] LOW BACK PAIN. PATIENT DESCRIBES THE PAIN ACHING, SHARP, STABBING, THROBBING, SHOOTING, AND HAVING IT ALL THE TIME WITH PAIN SCORE OF 9/10. PATIENT RECEIVED A LUMBAR EPDIURAL ON 04/29/17 AND REPORTS HAVING OVER 50% PAIN RELIEF FOR OVER 3 MONTHS WITH INCREASED MOBILITY AND FUNCTIONALITY. PATIENT REPORTS SEEING DR. KHAN FROM [facility] TO FOLLOW UP WITH THE OPEN SORE ON THE LEGS. DR. KELSEY ALSO GAVE THE PATIENT AN ANTIOBIOTIC. PATIENT IS CURRENTLY USING GABAPENTIN, OXYCODONE, AND TIZANIDINE BUT STATES THAT THE PAIN IS STILL SEVERE. PATIENT STATES HER RIGHT LEG HURTS WORSE FROM THE LEFT BUT SHE HAS A TINGLY AND BURNING SENSATION IN BOTH FEET. PATIENT DENIES UNEXPLAINABLE WEIGHT LOSS, FEVER, CHILLS, NEW CHANGES ON HER URINARY OR BOWEL CONTROL. FALL RISK SCREENING: SCREENING :NO FALLS IN THE PAST YEAR CURRENT MEDICATIONS TAKING ATTENDS BRIEFS X-LARGE - MISCELLANEOUS DIRECTED QID DX N39.3 TAKING LEVOTHYROXINE SODIUM 50 MCG TABLET 1 CAPSULE ORALLY ONCE A DAY TAKING HYDROXYZINE HCL 25 MG TABLET 1 TABLET NEEDED ORALLY QHS PRN ITCH TAKING PROLIA 60MG/ML DIRECTED TAKING METOPROLOL SUCCINATE ER 50 MG TABLET EXTENDED RELEASE 24 HOUR 1/2 TABLET ORALLY TWICE A DAY TAKING KEFLEX 500 MG CAPSULE 1 CAPSULE ORALLY DAILY TAKING ASMANEX 120 METERED DOSES 220 MCG/INH AEROSOL POWDER BREATH ACTIVATED 2 PUFFS INHALATION TWICE DAILY TAKING INCRUSE ELLIPTA 62.5 MCG/INH AEROSOL POWDER BREATH ACTIVATED 1 PUFF INHALATION ONCE A DAY TAKING DUONEB 0.5-2.5 (3) MG/3ML SOLUTION 3 ML INHALATION BID TAKING DESITIN 13 % CREAM 1 APPLICATION TO AFFECTED AREA EXTERNALLY Q2 HRS WITH BRIEF CHANGE TAKING HYDROPHOR - OINTMENT THIN LAYER OVER NON-SORE AREAS OF LEGS EXTERNALLY DAILY TAKING OMEPRAZOLE 40 MG CAPSULE DELAYED RELEASE 1 CAPSULE ORALLY ONCE A DAY TAKING XIFAXAN 550 MG TABLET 1 TABLET ORALLY TWICE A DAY TAKING LACTULOSE 10 GM/15ML SYRUP 15 ML ORALLY THREE TIMES A DAY TAKING SPIRONOLACTONE 50 MG TABLET 1 TAB ORALLY BID TAKING POTASSIUM CHLORIDE JYOTSNA ER 10 MEQ TABLET EXTENDED RELEASE 2 TABLETS WITH FOOD ORALLY TWICE DAILY TAKING LASIX 40 MG TABLET 1 TABLET ORALLY BID TAKING JOBST ACTIVE 15-20MMHG X-LARGE 0 MISCELLANEOUS DIRECTED - -, NOTES: TOO PAINFUL TO APPLY TAKING ONE TOUCH DELICA 33 GAUGE DIRECTED E11.8; E11.9 TWICE A DAY BEFORE BREAKFAST AND DINNER TAKING ZOFRAN 4 MG TABLET 1 TAB ORALLY Q6H PRN NAUSEA, NOTES: NOT TAKING TAKING BD ULTRA-FINE LANCETS - MISCELLANEOUS DIRECTED USE BID FOR GLUCOSE MONITORING DX=E11.9 TAKING [facility] BLOOD GLUCOSE TEST STRIPS - STRIP DIRECTED IN VITRO BID TAKING HOSPITAL BED HOSPITAL BED SEMI-ELECTRIC WITH HEAVY DUTY MATTRESS WEIGHT :337 DX: J44.9, DX: M50.30 FOR LIFETIME USE AND PURCHASE TAKING INSULIN PEN NEEDLE 31G X 6 MM MISCELLANEOUS DIRECTED SQ DAILY BEFORE BEDTIME DX:E11.8 TAKING CETIRIZINE HCL 10 MG TABLET 1 TABLET ORALLY ONCE A DAY, NOTES: > 3 DAYS TAKING PROLIA 60 MG/ML SOLUTION SUBCUTANEOUS EVERY SIX MONTHS TAKING NYSTATIN CREAM 178192 UNITS/GM CREAM DIRECTED TOPICALLY BID X 10 DAYS WITH FLARES, NOTES: THIS IS A POWDER TAKING ROLLING WALKER 1 1 DIRECTED WITH 4 WHEELS AND A SEAT DAILY DX:M47.186 TAKING ALBUTEROL SULFATE HFA 108 (90 BASE) MCG/ACT AEROSOL SOLUTION 2 PUFFS INHALATION EVERY 4 HOURS NEEDED, NOTES: > 3 DAYS TAKING LANTUS 100 UNIT/ML SOLUTION 25 UNITS SUBCUTANEOUS BEFORE BEDTIME TAKING DEPEND PANT EXTRA LARGE DEPENDS MISCELLANEOUS SUPER ABSORBENT HIP - 155 CM; WAIST - 146 CM ICD:N39.490 EVERY 2-4 HOURS NEEDED MDD: 5 BRIEFS TAKING OXYCODONE HCL 5 MG TABLET 1 TABLET ORALLY EVERY 6 HRS PRN PAIN, MDD 4 TAKING TIZANIDINE HCL 4 MG TABLET 1 TABLET NEEDED ORALLY THREE TIMES A DAY PRN BACK SPASMS TAKING GABAPENTIN 600 MG TABLET 1 TABLET ORALLY FOR PAIN THREE TIMES DAILY MDD3 TAKING DULOXETINE HCL 30 MG CAPSULE DELAYED RELEASE PARTICLES 1 CAPSULE ORALLY TWICE A DAY TAKING PROZAC 20 MG CAPSULE 1 CAPSULE ORALLY ONCE A DAY TAKING ONETOUCH VERIO - STRIP DIRECTED SUBCUTANEOUSLY AC BID TAKING MAGNESIUM 500 MG TABLET 1 TABLET WITH A MEAL ORALLY BID, NOTES: 04/28 1000 NOT-TAKING COMPRESSION STOCKINGS 30-40MM/HG KNEE HIGH DIRECTED DX : B/L LOWER EXTREMITY LYMPHADEMA DAILY WHEN OUT OF BED DISCONTINUED MISC. DEVICES 30 GAUGE X 3/16 B-D AUTOSHIELD PEN NEEDLES DIRECTED INTRADERMALLY DAILY - ICD 10 E11.9 DISCONTINUED METOPROLOL SUCCINATE ER 50 MG TABLET EXTENDED RELEASE 24 HOUR 1/2 TABLET ORALLY Q6H DISCONTINUED XIFAXAN 550 MG TABLET 1 TABLET ORALLY TWICE A DAY DISCONTINUED LANTUS 100 UNIT/ML SOLUTION 25 UNITS SUBCUTANEOUS BEFORE BEDTIME MEDICATION LIST REVIEWED AND RECONCILED WITH THE PATIENT PAST MEDICAL HISTORY OBESITY, MORBID CERVICAL/THORACIC/LUMBAR DJD-L2-S1 DIFFUSE BULGES-AT L5/S1 ABUTTING TS, B S1 PERIPHERAL EDEMA-01/2011 [id number] 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 BARAHONA, [facility] [place] OBSTRUCTIVE SLEEP APNEA HYPERLIPIDEMIA 2B COPD-07/2011 FEV1 1.9L (71%)/RATIO 92% T2DM ID GERD/HIATAL HERNIA-SEEN BY APRIL 2011 UPPER GI WITH SMALL BOWEL FOLLOW-THROUGH SCHIZOAFFECTIVE DISORDER-SPELLED BY DR. OSBORNE NONALCOHOLIC FATTY LIVER DISEASE-SEEN BY MARCH 2011 CT-NORMAL WORKUP 2010--CHRONIC HEPATITIS GRADE 2/4 WITH GRADE 4/4 CIRRHOSIS BY LIVER BIOPSY JULY 2011 VASOMOTOR SYMPTOMS VITAMIN D DEFICIENCY ALLERGIC RHINITIS RECURRENT CANDIDAL DERMATITIS ANTERIOR ABDOMEN LEUKOPENIA, CHRONIC CHRONIC ANTERIOR ABDOMINAL WALL PANNICULITIS PORTAL VENOUS HYPERTENSION SEEN BY MARCH 2011 CT CKD III-12/2013 NORMAL B RENAL US CHF 2 DIASTOLIC DYSFUNCTION-01/2017 TTE-GUADALUPE C GRADE 1 DIASTOLIC DYSFUNCTION, VERY MILD MR/TR B SHOULDER IMPIGNMENT SYNDROME-09/2015 L SHOULDER XRAY C MILD AC ARTHRITIS//S/P R PROXIMAL HUMERUS FRACTURE S/P MECHANICAL PDYX-FBO-HOPQUTUE PER HEBERT RECURRENT HEPATIC ENCEPHALOPATHY-01/2017 MRI BRAIN MILD /VOLUME LOSS ALLERGIES CIPRO: CONFUSION: SIDE EFFECTS DOXYCYCLINE HYCLATE: ITCHY: ALLERGY MOTRIN: HIVES: ALLERGY SOCIAL HISTORY GENERAL: TOBACCO USE ARE YOU A:NONSMOKER BMI CARE GOAL FOLLOW-UP ABOVE NORMAL BMI FOLLOW-UPGIVING ENCOURAGEMENT TO EXERCISE ALCOHOL SCREENING DID YOU HAVE A DRINK CONTAINING ALCOHOL IN THE PAST YEAR?NO POINTS0 INTERPRETATIONNEGATIVE CAFFEINE OCCASIONAL ONLY. SEXUAL HX HAD SEX IN THE LAST 12 MONTHS (VAGINAL, ORAL, OR ANAL)?NO HAVE YOU EVER HAD AN STD?NO OCCUPATION: RETIRED. DIET: CARBOHYDRATE CONTROLLED. EXERCISE: NO REGULAR EXERCISE. MARITAL STATUS: SINGLE. NONDENOMINATIONAL [id number] SABIANIST LANGUAGE LANGUAGES SPOKEN:UGANDAN EDUCATION LEVEL OF EDUCATION:FINISHED HIGH SCHOOL LEARNING BARRIERS / SPECIAL NEEDS CHANGE FROM LAST VISIT?NO BARRIERS TO LEARNING?NO HEARING IMPAIRED?NO VISION IMPAIRED?YES :CORRECTIVE LENSES COGNITIVELY IMPAIRED?NO READINESS TO LEARN?YES LEARNING PREFERENCES?YES :DEMONSTRATION/VERBAL INSTRUCTION LEARNING CAPABILITIES PRESENT?YES EMOTIONAL BARRIERS?NO SPECIAL DEVICES?NO GRE INSTRUCTOR NEEDED?NO PAIN CLINIC PFS, CLERGY, PUBLIC HEALTH REFERRALS HAS THE PATIENT BEEN EDUCATED REGARDING HIS/HER PLAN OF CARE?YES HAS THE PATIENT BEEN EDUCATED REGARDING PAIN, THE RISK FOR PAIN, THE IMPORTANCE OF EFFECTIVE PAIN MANAGEMENT, AND THE PAIN ASSESSMENT PROCESS?YES REVIEWED BY: 08/27/17 1325 AD. ADVANCE DIRECTIVES HEALTH CARE PROXY?YES NAME OF HCP DAUGHTER-LIYAH LOCO CONTACT # FOR HCP [phone] DO YOU HAVE A COPY WITH YOU?NO INSTRUCTED TO BRING IN DO YOU HAVE A DNR?NO WOULD YOU LIKE MORE INFORMATION?NO LIVING WILL?NO WOULD YOU LIKE MORE INFORMATION?NO POWER OF UPKEEP WORKER?NO WOULD YOU LIKE MORE INFORMATION?NO TRAVEL OUTSIDE US: NO. HOUSING: LIVES WITH DAUGHTER IN APARTMENT.. DOMESTIC VIOLENCE DO YOU FEEL SAFE IN YOUR ENVIRONMENT?YES LIVES WITH DAUGHTER WHO IS HCP05/2012-11/2013 RESIDED AT [facility] UNDER DR. SUGGS'S. REVIEW OF SYSTEMS REVIEWED BY: PROVIDER: CAMACHO HERNANDEZ MD . CONSTITUTIONAL: ANY CHANGE IN YOUR MEDICAL CONDITION? NO . CHILLS NO . FEVER NO . INFECTION: DO YOU HAVE NEW INFECTIONS? NO . DO YOU HAVE HISTORY OF MRSA? NO . MUSCULOSKELETAL: ANY NEW PATTERNS OF PAIN OR NUMBNESS? YES, PAIN TOP OF BOTH LEGS AND THIGHS--RIGHT GREAT THAN LEFT. THIS HAS BEEN GOING ON FOR A COUPLE OF MONTHS NOW. NUMBNESS RIGHT FOOT FOR 2-3 MONTHS . GASTROENTEROLOGY: ANY NEW CHANGE IN BOWEL CONTROL? NO . GENITOURINARY: ANY NEW CHANGE IN BLADDER CONTROL? YES, SHE LEAKS URINE, HAS BEEN GOING ON FOR APPROX. 3 WEEKS . IS THERE A CHANCE YOU COULD BE ? NO . HEMATOLOGY/LYMPH: DO YOU TAKE ANY BLOOD THINNERS? (FOR EXAMPLE- COUMADIN, PLAVIX, AGGRENOX, PLATEL, PRADAXA, OR XARELTO) NO . WHEN WAS YOUR LAST DOSE? DATE: TIME: . NEUROLOGY: HAVE YOU FALLEN IN THE PAST 6 MONTHS? NO . ANY NEW EXTREMITY NUMBNESS OR WEAKNESS? YES, NUMBNESS RIGHT FOOT . CARDIOLOGY: DO YOU HAVE A PACEMAKER OR DEFIBRILLATOR? NO . RESPIRATORY: HAVE YOU BEEN SICK IN THE PAST WEEK? NO . FEVER NO . FLU LIKE SYMPTOMS? NO . COUGH NO . INTEGUMENTARY: DO YOU HAVE ANY RASHES OR OPEN SORES? NO . ALLERGIC/IMMUNO: ARE YOU ALLERGIC TO SHELLFISH OR IV DYE? NO . ANY NEW ALLERGIES? NO . PSYCHIATRIC: DO YOU HAVE THOUGHTS OF HURTING YOURSELF OR SOMEONE ELSE? NO . ARE YOU ABUSED, NEGLECTED, OR IN AN UNSAFE ENVIRONMENT? NO . ENDOCRINOLOGY: ARE YOU DIABETIC? YES FSBS 288 THIS A.M . OTHER: DO YOU NEED ANY PRESCRIPTIONS? NO . IF YES, PLEASE LIST: ____ . ANY NEW PROBLEMS WITH YOUR MEDICATIONS? NO . WHEN DID YOU LAST EAT? ____ . WHEN DID YOU LAST DRINK? ____ . WHAT DID YOU LAST DRINK? ____ . NAME OF PERSON DRIVING YOU HOME? ____ . DO YOU HAVE ANY OTHER QUESTIONS OR CONCERNS YES, DR. KELSEY WOULD LIKE DR. HERNANDEZ TO CALL HIM REGARDING PLAN OF CARE. SHE HAD A FLU VACCINE 07/21/17 . VITAL SIGNS WT 249.4 LBS, HT 78 IN, BMI 28.82 INDEX, BP 132/83 MM HG, HR 74 /MIN, RR 18 /MIN, TEMP 97.8 F, OXYGEN SAT % 98%, SAFE IN ENV? (Y/N) Y, NA INITIALS TL 1311, REVIEWED BY: AD. EXAMINATION : PATIENT IS ALERT O X 3 AND COOPERATIVE. TENDERNESS IN THE LOWER BACK AND PARASPINAL MUSCLE GROUP. RIGHT LEG WEAKER THEN THE LEFT AT EXTENSION AND FLEXION. LIMPING FROM THE RIGHT LEG. USING WALKER TO AMBULATE. REDNESS AND SWELLING OVER BOTH LEGS. MRI OF THE LUMBAR SPINE DONE ON 04/25/17 SHOWS A DISC BULGE AT L2-L3 THROUGH L5-S1 WELL FACET HYPERTROPHY. ASSESSMENTS INTERVERTEBRAL DISC DISORDER WITH RADICULOPATHY OF LUMBAR REGION - M51.16 (PRIMARY) INTERVERTEBRAL DISC DISORDER WITH RADICULOPATHY OF LUMBOSACRAL REGION - M51.17 HX IRON DEFICIENCY COPDCONGESTED HEART FAILUREAPATITE DYSFUNCTIONHISTORY MRSAINFLAMMATION/EDEMA IN BOTH LEGS. TREATMENT INTERVERTEBRAL DISC DISORDER WITH RADICULOPATHY OF LUMBAR REGION REFILL GABAPENTIN TABLET, 600 MG, 1 TABLET, ORALLY FOR PAIN, FOUR TIMES DAILY FOR PAIN MDD4, 30 DAY(S), 120, REFILLS 1 NOTES: WE DISCUSSED SEVERAL ISSUES WITH MRS. FARFAN'S PAIN MANAGEMENT CASE. AT THIS TIME THE PATIENT WILL INCREASE GABAPENTIN TO FOUR TIMES A DAY TO AID IN NEUROPATHIC PAIN RELIEF. PATIENT WILL CONTINUE TO USE THE OXYCODONE FOR THE SOMATIC PAIN. WE DISCUSSED MOVING FORWARD WITH A LUMBAR EPIDURAL DUE TO THE RADICULAR PAIN AFTER WE HAVE RECEIVED A CLEARANCE FOR THE COAGULATION DYSFUNCTION. I WOULD ALSO LIKE TO DISCUSS THE CASE WITH DR. KELSEY ABOUT POSSIBLE CELLULITIS AND POSSIBLE BACTERIAL-LEG INFECTION. I MAY DISCUSS THE CASE WITH DR. CAMPOS. PATIENT IS AWARE THAT SHE SHOULD CONTINUE TO TRY TO LOSE WEIGHT BY CHANGING EATING HABITS AND TRYING TO EXERCISE. PATIENT WILL FOLLOW UP IN 3 WEEKS. INSTRUCTIONS WERE GIVEN, QUESTIONS WERE ANSWERED, PATIENT REPORTS UNDERSTANDING AND AGREES WITH THE PLAN. I, OSVALDO HERNANDEZ, DOCUMENTED THE ABOVE INFORMATION ACTING A SCRIBE FOR DR. HERNANDEZ. I HAVE REVIEWED THE ABOVE DOCUMENT, WRITTEN BY OSVALDO APONTE AND I VERIFY THAT IT IS ACCURATE. PROCEDURE CODES FA211 ESTABILISHED PATIENT [facility] CHARGE G8427 DOC MEDS VERIFIED W/PT OR RE G5053 PAIN ASSESS POS TOOL F/U PLAN DOC DISPOSITION & COMMUNICATION FOLLOW UP 2 WEEKS ELECTRONICALLY SIGNED BY CAMACHO HERNANDEZ MD ON 09/10/2017 AT 07:05 PM EST DISCLAIMER : THIS IS A VISIT SUMMARY EXTRACTED FROM THE [facility] CHART. IT IS NOT A COPY OF THE [facility] PROGRESS NOTE. MTDD
== END ==
LOC: M PAIN 13:00
PROVIDERS: ATTEND Anesthesiology
DX: G89.29 Other chronic pain (principal); M51.16 Intervertebral disc disorders with radiculopathy, lumbar region; M51.17 Intervertebral disc disorders with radiculopathy, lumbosacral region; K72.90 Hepatic failure, unspecified without coma; I11.9 Hypertensive heart disease without heart failure; I50.30 Unspecified diastolic (congestive) heart failure; N18.3 Chronic kidney disease, stage 3 (moderate); J45.30 Mild persistent asthma, uncomplicated; E11.8 Type 2 diabetes mellitus with unspecified complications; E03.9 Hypothyroidism, unspecified; K21.9 Gastro-esophageal reflux disease without esophagitis; F25.1 Schizoaffective disorder, depressive type; D50.8 Other iron deficiency anemias; E78.2 Mixed hyperlipidemia; N18.6 End stage renal disease; Z88.1 Allergy status to other antibiotic agents; Z88.6 Allergy status to analgesic agent; Z88.8 Allergy status to other drugs, medicaments and biological substances; Z79.4 Long term (current) use of insulin; Z79.891 Long term (current) use of opiate analgesic; Z79.899 Other long term (current) drug therapy

== ENCOUNTER → 2017-08-28 | Outpatient (REF) | payer OTHER ==
[~2017-08-28] MED LIST changes: -ASMA220A; -FURO40TA2; -GABA-282; -INCR1INH; -MAG400TA; -METO1TAB7 PO
[2017-08-28 11:55] LABS: INR 1.15
[2017-08-28 12:42] LABS: ALBUMIN 2.9 GM/DL (3.2-5.2); ALBUMIN/GLOBULIN RATIO 0.52 (1.00-1.93); BILIRUBIN,TOTAL 0.4 MG/DL (0.2-1.0); CALCIUM LEVEL 9.1 MG/DL (8.8-10.2); CREATININE FOR GFR 1.1 MG/DL (0.55-1.02); GLOMERULAR FILTRATION RATE 53.6 (>45); TOTAL PROTEIN 8.5 GM/DL (6.4-8.2)
== END ==
LOC: M SFHCPLAZ 10:50
PROVIDERS: ATTEND Family Medicine
DX: K72.90 Hepatic failure, unspecified without coma (principal); E11.69 Type 2 diabetes mellitus with other specified complication

== ENCOUNTER → 2017-09-03 | Outpatient (CLI) | payer OTHER ==
--- NOTE | 2017-09-03 13:09 | REP ---
BILATERAL MAMMOGRAM: Bilateral mammography performed in the [facility] and CC projections and compared to multiple prior exams, the most recent of which is 09/03/2016. Mild scattered fibroglandular tissue is again noted with no new mass or architectural distortion. There are scattered benign secretory type calcifications diffusely bilaterally. However, there may be some increasing tiny clustered microcalcifications inferolaterally in the right breast. Recommend magnification views to further evaluate. IMPRESSION: BI-RADS/ACR category 0 mammogram, incomplete. Additional imaging and/or prior mammograms for comparison. ACR 0 incomplete. Possible clustered microcalcifications inferior lateral right breast. Recommend magnification views to further evaluate. This mammogram was interpreted with the aid of an FDA-approved computer-aided detection system. The patient states she has not had a clinical breast exam in over a year. The patient letter being requested is M0.
== END ==
LOC: M WHC 08:27
PROVIDERS: ATTEND Family Medicine
DX: R92.2 Inconclusive mammogram (principal)

== ENCOUNTER → 2017-09-09 | Outpatient (REF) | payer OTHER ==
[~2017-09-09] MED LIST changes: +ASMA220A; +FURO40TA2; +GABA-282; +INCR1INH; +MAG400TA; +METO1TAB7 PO
[2017-09-09 16:27] LABS: ALBUMIN 3.4 GM/DL (3.2-5.2); CALCIUM LEVEL 9.3 MG/DL (8.8-10.2); CREATININE FOR GFR 1.36 MG/DL (0.55-1.02); GLOMERULAR FILTRATION RATE 41.9 (>45); PERCENT SATURATION 13.9 % (13.2-45.0); PHOSPHORUS LEVEL 4.1 MG/DL (2.5-4.9); POTASSIUM SERUM 4.2 MEQ/L (3.5-5.1)
[2017-09-09 16:33] LABS: BASO % 0.4 % (0.0-1.0); EOS # 0.2 10^3/uL (0.0-0.50); EOS % 2.9 % (0.0-3.0); IMMATURE GRANULOCYTE % 0.2 % (0-0); LYMPH % 24.2 % (24.0-44.0); MEAN CORPUSCULAR HEMOGLOBIN 27.3 pg (27.0-33.0); MEAN CORPUSCULAR HGB CONC 32.7 g/dl (32.0-36.5); MEAN CORPUSCULAR VOLUME 83.4 fl (80.0-96.0); MONO # 0.5 10^3/uL (0.0-0.8); MONO % 5.9 % (0.0-5.0); NEUTROPHILS # 5.4 10^3/uL (1.8-7.7); NEUTROPHILS % 66.4 % (36.0-66.0); PLATELET COUNT, AUTOMATED 215 10^3/uL (150-450); RED CELL DISTRIBUTION WIDTH 14.6 % (11.5-14.5); WHITE BLOOD COUNT 8.2 10^3/uL (4.0-10.0)
== END ==
LOC: M SFHCPLAZ 13:52
PROVIDERS: ATTEND Family Medicine
DX: I50.30 Unspecified diastolic (congestive) heart failure (principal); D50.8 Other iron deficiency anemias

== ENCOUNTER 2017-09-12 15:51 | Emergency (ER) | payer MEDICAID, OTHER, SELFPAY ==
[~2017-09-12] VITALS: Ht 160 cm; Wt 112.7 kg
[~2017-09-12 15:51] MED LIST changes: -ASMA220A; -FURO40TA2; -GABA-282; -INCR1INH; -MAG400TA; -METO1TAB7 PO
[2017-09-12] MEDS ORDERED: METO1TAB7 PO (16:28)
[2017-09-12] MEDS ORDERED: SPIR50TA2 PO (16:28)
[2017-09-12] MEDS ORDERED: GABA-282 (16:28)
[2017-09-12] MEDS ORDERED: ASMA220A (16:28)
[2017-09-12] MEDS ORDERED: MAG400TA (16:28)
[2017-09-12] MEDS ORDERED: INCR1INH (16:28)
[2017-09-12] MEDS ORDERED: FURO40TA2 (16:28)
--- NOTE | 2017-09-12 17:50 | REP ---
CHEST, TWO VIEWS: Two views of the chest are performed and compared to prior study of 04/23/2017. There is mild diffuse interstitial fibrosis. There is no acute infiltrate. Heart is normal in size. Mediastinal silhouette is unchanged. There are mild degenerative changes of the spine. IMPRESSION: Mild stable chronic findings without acute infiltrate. Signed by Jim Calderon MD 09/12/2017 08:44 P
[2017-09-12 18:27] LABS: BASO % 0.5 % (0.0-1.0); EOS # 0.3 10^3/uL (0.0-0.50); EOS % 4.7 % (0.0-3.0); IMMATURE GRANULOCYTE % 0.5 % (0-0); LYMPH # 1.9 10^3/uL (1.5-4.5); LYMPH % 28.2 % (24.0-44.0); MEAN CORPUSCULAR HEMOGLOBIN 27.8 pg (27.0-33.0); MEAN CORPUSCULAR HGB CONC 32.6 g/dl (32.0-36.5); MEAN CORPUSCULAR VOLUME 85.4 fl (80.0-96.0); MONO # 0.4 10^3/uL (0.0-0.8); MONO % 6.2 % (0.0-5.0); NEUTROPHILS % 59.9 % (36.0-66.0); PLATELET COUNT, AUTOMATED 149 10^3/uL (150-450); RED CELL DISTRIBUTION WIDTH 14.6 % (11.5-14.5); VENOUS BASE EXCESS -2.4 (-2.0-2.0); VENOUS O2 SATURATION 59.2 % (60.0-80.0); VENOUS PARTIAL PRESSURE CO2 51.4 mmHg (38.0-50.0); VENOUS PARTIAL PRESSURE O2 34.1 mmHg (30.0-50.0); VENOUS STANDARD HCO3 21.6 MEQ/L; VENOUS TOTAL CO2 26.1 MEQ/L (24.0-28.0); WHITE BLOOD COUNT 6.6 10^3/uL (4.0-10.0)
[2017-09-12 18:55] LABS: ALBUMIN 3.1 GM/DL (3.2-5.2); ALBUMIN/GLOBULIN RATIO 0.55 (1.00-1.93); ALKALINE PHOSPHATASE 117 U/L (45-117); ALT/SGPT 25 U/L (12-78); ANION GAP 6 MEQ/L (8-16); AST/SGOT 36 U/L (7-37); BILIRUBIN,DIRECT 0.1 MG/DL (0.0-0.2); BILIRUBIN,TOTAL 0.5 MG/DL (0.2-1.0); BLOOD UREA NITROGEN 19 MG/DL (7-18); CARBON DIOXIDE LEVEL 30 MEQ/L (21-32); CHLORIDE LEVEL 97 MEQ/L (98-107); CREATININE FOR GFR 1.14 MG/DL (0.55-1.02); GLOMERULAR FILTRATION RATE 51.4 (>45); GLUCOSE, FASTING 292 MG/DL (80-110); POTASSIUM SERUM 4.6 MEQ/L (3.5-5.1); SODIUM LEVEL 133 MEQ/L (136-145); TOTAL PROTEIN 8.7 GM/DL (6.4-8.2)
[2017-09-12 18:59] LABS: FREE T4 0.99 NG/DL (0.76-1.46)
[2017-09-12] MEDS ORDERED: IPRATROPIUM 0.5MG/ALBUTEROL 2.5MG INH SOL UD 3ML (DUONEB)(J7620) NEB ONE (19:15)
[2017-09-12 20:20] VITALS: O2SAT 91
[2017-09-12 20:29] LABS: ABG BASE EXCESS 0.9 (-2.0-2.0); ABG HCO3 25.4 MEQ/L (22.0-26.0); ABG PARTIAL PRESSURE CO2 40.4 mmHg (35.0-45.0); ABG PARTIAL PRESSURE O2 102.7 mmHg (75.0-100.0); ABG STANDARD HCO3 25.3 MEQ/L (22.0-26.0); ABG TOTAL CO2 26.7 MEQ/L (23.0-31.0); ABG pH (ARTERIAL) 7.417 UNITS (7.350-7.450)
[2017-09-12 20:46] VITALS: BP 151/73
--- NOTE | 2017-09-13 16:45 | ECGEPIP ---
Stationary ECG Study [facility] - ED Test Date: 2017-09-12 Pat Name: HODAN FARFAN Department: Room: - Gender: F Divorce Attorney: ashleigh : 1955 Requested By: JEANMARIE Marie Order Number: [id number] Reading MD: Emerald Hernandez Measurements Intervals [place] Rate: 45 P: 41 GA: 142 QRS: 17 QRSD: 91 T: 29 QT: 506 QTc: 441 Interpretive Statements SINUS BRADYCARDIA Electronically Signed On 09-13-2017 16:45:30 EST by Emerald Hernandez
== END 2017-09-12 21:09 | disposition home or self-care (01) ==
LOC: EDBD 15:51 → M ED 15:51
DX: R73.9 Hyperglycemia, unspecified (principal); R00.1 Bradycardia, unspecified; R91.8 Other nonspecific abnormal finding of lung field; I25.10 Atherosclerotic heart disease of native coronary artery without angina pectoris; I13.10 Hypertensive heart and chronic kidney disease without heart failure, with stage 1 through stage 4 chronic kidney disease, or unspecified chronic kidney disease; J44.9 Chronic obstructive pulmonary disease, unspecified; N18.9 Chronic kidney disease, unspecified; E78.9 Disorder of lipoprotein metabolism, unspecified; K21.9 Gastro-esophageal reflux disease without esophagitis; E66.9 Obesity, unspecified; M19.90 Unspecified osteoarthritis, unspecified site; G47.33 Obstructive sleep apnea (adult) (pediatric); K74.60 Unspecified cirrhosis of liver; F25.9 Schizoaffective disorder, unspecified; Z79.899 Other long term (current) drug therapy; Z79.4 Long term (current) use of insulin; Z79.51 Long term (current) use of inhaled steroids; Z88.8 Allergy status to other drugs, medicaments and biological substances; Z88.0 Allergy status to penicillin; Z88.1 Allergy status to other antibiotic agents

== ENCOUNTER → 2017-10-01 | Outpatient (REF) | payer OTHER ==
[2017-10-01 12:08] LABS: BASO % 0.7 % (0.0-1.0); EOS # 0.1 10^3/uL (0.0-0.50); EOS % 2.6 % (0.0-3.0); HEMATOCRIT 37.6 % (36.0-47.0); HEMOGLOBIN 12.7 g/dl (12.0-16.0); IMMATURE GRANULOCYTE % 0.2 % (0-0); LYMPH # 1.7 10^3/uL (1.5-4.5); LYMPH % 31.3 % (24.0-44.0); MEAN CORPUSCULAR HEMOGLOBIN 28.3 pg (27.0-33.0); MEAN CORPUSCULAR HGB CONC 33.8 g/dl (32.0-36.5); MEAN CORPUSCULAR VOLUME 83.7 fl (80.0-96.0); MONO # 0.5 10^3/uL (0.0-0.8); MONO % 8.9 % (0.0-5.0); NEUTROPHILS % 56.3 % (36.0-66.0); PLATELET COUNT, AUTOMATED 186 10^3/uL (150-450); RED BLOOD COUNT 4.49 10^6/uL (4.00-5.40); RED CELL DISTRIBUTION WIDTH 14.1 % (11.5-14.5); WHITE BLOOD COUNT 5.4 10^3/uL (4.0-10.0)
[2017-10-01 13:02] LABS: ALBUMIN 3.2 GM/DL (3.2-5.2); ANION GAP 10 MEQ/L (8-16); BLOOD UREA NITROGEN 24 MG/DL (7-18); CALCIUM LEVEL 8.6 MG/DL (8.8-10.2); CARBON DIOXIDE LEVEL 26 MEQ/L (21-32); CHLORIDE LEVEL 96 MEQ/L (98-107); CREATININE FOR GFR 1.21 MG/DL (0.55-1.02); FERRITIN 84 NG/ML (8-252); GLUCOSE, FASTING 385 MG/DL (80-110); IRON (FE) 79 UG/DL (50-170); MAGNESIUM LEVEL 2.5 MG/DL (1.8-2.4); PERCENT SATURATION 21.3 % (13.2-45.0); PHOSPHORUS LEVEL 2.8 MG/DL (2.5-4.9); POTASSIUM SERUM 4.4 MEQ/L (3.5-5.1); SODIUM LEVEL 132 MEQ/L (136-145); TOTAL IRON BINDING CAPACITY 371 UG/DL (250-450)
== END ==
LOC: M SFHCPLAZ 10:27
DX: I50.30 Unspecified diastolic (congestive) heart failure (principal); D50.8 Other iron deficiency anemias
CPT/HCPCS: 83550

== ENCOUNTER 2017-10-03 15:23 | Emergency (ER) | payer MEDICAID, OTHER ==
[2017-10-03] MEDS: NS 1,000 ML IV ×4 (16:15→19:01)
[2017-10-03 17:00] LABS: VENOUS BASE EXCESS -2.1 (-2.0-2.0); VENOUS HCO3 23.8 MEQ/L (23.0-27.0); VENOUS O2 SATURATION 85.1 % (60.0-80.0); VENOUS PARTIAL PRESSURE CO2 45.2 mmHg (38.0-50.0); VENOUS PARTIAL PRESSURE O2 53.5 mmHg (30.0-50.0); VENOUS STANDARD HCO3 22.5 MEQ/L; VENOUS TOTAL CO2 25.2 MEQ/L (24.0-28.0)
[2017-10-03 17:03] LABS: BASO % 0.8 % (0.0-1.0); EOS # 0.1 10^3/uL (0.0-0.50); EOS % 2.2 % (0.0-3.0); HEMATOCRIT 35.1 % (36.0-47.0); HEMOGLOBIN 11.8 g/dl (12.0-16.0); IMMATURE GRANULOCYTE % 0.2 % (0-0); LYMPH # 1.2 10^3/uL (1.5-4.5); LYMPH % 25.2 % (24.0-44.0); MEAN CORPUSCULAR HEMOGLOBIN 28.3 pg (27.0-33.0); MEAN CORPUSCULAR HGB CONC 33.6 g/dl (32.0-36.5); MEAN CORPUSCULAR VOLUME 84.2 fl (80.0-96.0); MONO # 0.3 10^3/uL (0.0-0.8); MONO % 6.5 % (0.0-5.0); NEUTROPHILS # 3.2 10^3/uL (1.8-7.7); NEUTROPHILS % 65.1 % (36.0-66.0); PLATELET COUNT, AUTOMATED 147 10^3/uL (150-450); RED BLOOD COUNT 4.17 10^6/uL (4.00-5.40); RED CELL DISTRIBUTION WIDTH 14.1 % (11.5-14.5); WHITE BLOOD COUNT 4.9 10^3/uL (4.0-10.0)
[2017-10-03 17:16] LABS: ESTIMATED AVERAGE GLUCOSE 280 MG/DL (60-110); HEMOGLOBIN A1c 11.4 %
[2017-10-03 17:26] LABS: OSMOLALITY SERUM 301 MOSM/KG (280-301)
[2017-10-03 17:39] LABS: ALBUMIN/GLOBULIN RATIO 0.61 (1.00-1.93); ALKALINE PHOSPHATASE 111 U/L (45-117); ALT/SGPT 27 U/L (12-78); ANION GAP 8 MEQ/L (8-16); AST/SGOT 32 U/L (7-37); BILIRUBIN,DIRECT 0.2 MG/DL (0.0-0.2); BILIRUBIN,TOTAL 0.4 MG/DL (0.2-1.0); BLOOD UREA NITROGEN 18 MG/DL (7-18); CALCIUM LEVEL 9.1 MG/DL (8.8-10.2); CARBON DIOXIDE LEVEL 27 MEQ/L (21-32); CHLORIDE LEVEL 95 MEQ/L (98-107); CK-MB VALUE MASS 2.4 NG/ML (0.0-3.6); CPK CREATINE PHOSPHOKINASE 63 U/L (26-192); CREATININE FOR GFR 1.25 MG/DL (0.55-1.02); GLOMERULAR FILTRATION RATE 46.2 (>45); MAGNESIUM LEVEL 1.9 MG/DL (1.8-2.4); POTASSIUM SERUM 4.3 MEQ/L (3.5-5.1); SODIUM LEVEL 130 MEQ/L (136-145); TOTAL PROTEIN 7.9 GM/DL (6.4-8.2); TROPONIN I < 0.02 NG/ML (< 0.10)
[2017-10-03 17:40] LABS: ACETONE/KETONE 0.95 MG/DL (<2.81)
[2017-10-03 17:42] LABS: GLUCOSE, FASTING 469 MG/DL (80-110)
[2017-10-03 17:49] LABS: KETONE, URINE AUTO RFX NEGATIVE (NEGATIVE); LEUKOCYTE ESTERASE UR AUTO RFX NEGATIVE (NEGATIVE); MUCUS, URINE RFX SMALL (NEGATIVE); NITRITE, URINE AUTO RFX NEGATIVE (NEGATIVE); RBC, URINE AUTO RFX 3 /HPF (0-3); SPECIFIC GRAVITY UR AUTO RFX 1.012 (1.002-1.035); SQUAM EPITHELIAL CELL UR AURFX 0 /HPF (0-6); WBC, URINE AUTO RFX 1 /HPF (0-3)
[2017-10-03] MEDS: HumaLOG INSULIN (NovoLOG) PER UNIT SC ×4 (18:59→21:10)
[2017-10-03 20:20] LABS: BEDSIDE GLUCOSE 346 MG/DL (80-115)
[2017-10-03] MEDS: NS 500 ML IV ×2 (20:36)
[2017-10-03] MEDS: LEVEMIR (INSULIN DETEMIR) 1 UNITS/0.01ML SC ×2 (21:11)
== END 2017-10-03 22:04 | disposition home or self-care (01) ==
LOC: M ED 15:23
DX: E11.65 Type 2 diabetes mellitus with hyperglycemia (principal); I87.2 Venous insufficiency (chronic) (peripheral); I25.10 Atherosclerotic heart disease of native coronary artery without angina pectoris; I12.9 Hypertensive chronic kidney disease with stage 1 through stage 4 chronic kidney disease, or unspecified chronic kidney disease; N18.3 Chronic kidney disease, stage 3 (moderate); J44.9 Chronic obstructive pulmonary disease, unspecified; K21.9 Gastro-esophageal reflux disease without esophagitis; K75.81 Nonalcoholic steatohepatitis (NASH); K74.60 Unspecified cirrhosis of liver; F25.9 Schizoaffective disorder, unspecified; Z79.899 Other long term (current) drug therapy; Z79.51 Long term (current) use of inhaled steroids; Z79.4 Long term (current) use of insulin; Z88.8 Allergy status to other drugs, medicaments and biological substances; Z88.0 Allergy status to penicillin; Z88.1 Allergy status to other antibiotic agents; Z98.890 Other specified postprocedural states
CPT/HCPCS: 71045

== ENCOUNTER 2017-10-09 15:19 | Inpatient (IN) | payer OTHER ==
[2017-10-09 16:03] LABS: BASO % 0.9 % (0.0-1.0); EOS # 0.2 10^3/uL (0.0-0.50); EOS % 3.3 % (0.0-3.0); HEMATOCRIT 36.2 % (36.0-47.0); HEMOGLOBIN 12.2 g/dl (12.0-16.0); LYMPH # 1.6 10^3/uL (1.5-4.5); LYMPH % 34.6 % (24.0-44.0); MEAN CORPUSCULAR HEMOGLOBIN 28.7 pg (27.0-33.0); MEAN CORPUSCULAR HGB CONC 33.7 g/dl (32.0-36.5); MEAN CORPUSCULAR VOLUME 85.2 fl (80.0-96.0); MONO # 0.4 10^3/uL (0.0-0.8); MONO % 8.9 % (0.0-5.0); NEUTROPHILS # 2.4 10^3/uL (1.8-7.7); NEUTROPHILS % 52.3 % (36.0-66.0); PLATELET COUNT, AUTOMATED 165 10^3/uL (150-450); RED BLOOD COUNT 4.25 10^6/uL (4.00-5.40); RED CELL DISTRIBUTION WIDTH 14.2 % (11.5-14.5); WHITE BLOOD COUNT 4.6 10^3/uL (4.0-10.0)
[2017-10-09 16:31] LABS: ALBUMIN/GLOBULIN RATIO 0.58 (1.00-1.93); ALKALINE PHOSPHATASE 117 U/L (45-117); ALT/SGPT 27 U/L (12-78); ANION GAP 10 MEQ/L (8-16); AST/SGOT 38 U/L (7-37); BILIRUBIN,TOTAL 0.5 MG/DL (0.2-1.0); BLOOD UREA NITROGEN 21 MG/DL (7-18); CALCIUM LEVEL 9.1 MG/DL (8.8-10.2); CARBON DIOXIDE LEVEL 28 MEQ/L (21-32); CHLORIDE LEVEL 92 MEQ/L (98-107); CREATININE FOR GFR 1.24 MG/DL (0.55-1.02); GLOMERULAR FILTRATION RATE 46.5 (>45); POTASSIUM SERUM 4.6 MEQ/L (3.5-5.1); SODIUM LEVEL 130 MEQ/L (136-145); TOTAL PROTEIN 8.2 GM/DL (6.4-8.2)
[2017-10-09 16:34] LABS: GLUCOSE, FASTING 517 MG/DL (80-110)
[2017-10-09] MEDS: HumuLIN R (REGULAR) INSULIN (NovoLIN R) **100U/ML** PER UNIT IV ×2 (17:15→18:30)
[2017-10-09 17:18] LABS: VENOUS BASE EXCESS 6.1 (-2.0-2.0); VENOUS HCO3 32.6 MEQ/L (23.0-27.0); VENOUS O2 SATURATION 99.5 % (60.0-80.0); VENOUS PARTIAL PRESSURE O2 165.8 mmHg (30.0-50.0); VENOUS PH 7.391 UNITS (7.330-7.430); VENOUS STANDARD HCO3 30.1 MEQ/L; VENOUS TOTAL CO2 34.3 MEQ/L (24.0-28.0)
[2017-10-09 17:45] LABS: TROPONIN I < 0.02 NG/ML (< 0.10)
[2017-10-09 17:50] LABS: CPK CREATINE PHOSPHOKINASE 79 U/L (26-192); FREE T4 1.07 NG/DL (0.76-1.46); THYROID STIMULATING HORMONE 0.884 uIU/ML (0.358-3.740)
[2017-10-09 17:52] LABS: CK-MB VALUE MASS 1.8 NG/ML (0.0-3.6); MB/CK RELATIVE INDEX 2.27 (< OR =4)
[2017-10-09 18:10] LABS: OSMOLALITY SERUM 308 MOSM/KG (280-301)
[2017-10-09 18:12] LABS: BEDSIDE GLUCOSE 500 MG/DL (80-115)
[2017-10-09 18:55] LABS: KETONE, URINE AUTO RFX NEGATIVE (NEGATIVE); LEUKOCYTE ESTERASE UR AUTO RFX NEGATIVE (NEGATIVE); NITRITE, URINE AUTO RFX NEGATIVE (NEGATIVE); RBC, URINE AUTO RFX 1 /HPF (0-3); SPECIFIC GRAVITY UR AUTO RFX 1.005 (1.002-1.035); SQUAM EPITHELIAL CELL UR AURFX 0 /HPF (0-6); WBC, URINE AUTO RFX 0 /HPF (0-3)
[2017-10-09] MEDS ORDERED: DEXTROSE 50% 50 ML SYRINGE IV (19:45)
[2017-10-09] MEDS ORDERED: GLUCOSE 4 GM CHEW TABLET PO (19:45)
[2017-10-09] MEDS ORDERED: GLUCAGON FOR INJ 1 MG VIAL (J1610) SC (19:45)
[2017-10-09 20:49] LABS: AMMONIA 79 uMOL/L (<32)
[2017-10-09] MEDS: DOCUSATE SODIUM 100 MG CAP PO (21:00)
[2017-10-09] MEDS: HumaLOG INSULIN (NovoLOG) PER UNIT SC (21:00)
[2017-10-09 21:30] LABS: BEDSIDE GLUCOSE 181 MG/DL (80-115)
[2017-10-09] MEDS: LACTULOSE 20 GM/30 ML SYRUP UD PO (21:30)
[2017-10-09] MEDS: ACETAMINOPHEN TAB 650MG DOSE (2X325MG) PO (22:51)
[2017-10-10] MEDS ORDERED: POLYVINYL ALCOHOL OPHTH SOLN 15 ML(LIQUITEARS) OU (01:00)
[2017-10-10] MEDS ORDERED: MOM 30ML SUSPENSION UDC PO (01:00)
[2017-10-10] MEDS: LACTULOSE 20 GM/30 ML SYRUP UD PO ×3 (02:06→20:29)
[2017-10-10] MEDS: rifAXIMin 550 MG TAB (XIFAXAN) PO ×3 (02:06→20:29)
[2017-10-10 02:07] LABS: BEDSIDE GLUCOSE 257 MG/DL (80-115)
[2017-10-10] MEDS: METOPROLOL SUCC *XL* 25MG TAB (TopROL *XL*) PO ×3 (02:07→20:28)
[2017-10-10] MEDS: GABAPENTIN 300 MG CAP PO ×5 (02:07→20:28)
[2017-10-10] MEDS: DULoxetine 30 MG CAP (CYMBALTA) PO ×3 (02:07→20:28)
[2017-10-10] MEDS: oxyCODONE 5MG TAB PO ×4 (02:08→20:28)
[2017-10-10] MEDS: LEVEMIR (INSULIN DETEMIR) 1 UNITS/0.01ML SC ×2 (02:08→20:27)
[2017-10-10] MEDS: ACETAMINOPHEN TAB 650MG DOSE (2X325MG) PO ×2 (05:17→20:28)
[2017-10-10] MEDS: HEPARIN SOD (PORCINE) 5000 UNITS/ML VIAL SC ×3 (05:17→20:29)
[2017-10-10] MEDS ORDERED: LACTULOSE 20 GM/30 ML SYRUP UD PO (06:00)
[2017-10-10 06:59] LABS: HEMATOCRIT 37.8 % (36.0-47.0); HEMOGLOBIN 12.7 g/dl (12.0-16.0); MEAN CORPUSCULAR HEMOGLOBIN 28.5 pg (27.0-33.0); MEAN CORPUSCULAR HGB CONC 33.6 g/dl (32.0-36.5); MEAN CORPUSCULAR VOLUME 84.8 fl (80.0-96.0); PLATELET COUNT, AUTOMATED 173 10^3/uL (150-450); RED BLOOD COUNT 4.46 10^6/uL (4.00-5.40); RED CELL DISTRIBUTION WIDTH 14.1 % (11.5-14.5); WHITE BLOOD COUNT 5.9 10^3/uL (4.0-10.0)
[2017-10-10 07:19] LABS: ANION GAP 10 MEQ/L (8-16); BLOOD UREA NITROGEN 22 MG/DL (7-18); CALCIUM LEVEL 8.9 MG/DL (8.8-10.2); CARBON DIOXIDE LEVEL 28 MEQ/L (21-32); CHLORIDE LEVEL 100 MEQ/L (98-107); CREATININE FOR GFR 1.29 MG/DL (0.55-1.02); GLOMERULAR FILTRATION RATE 44.4 (>45); GLUCOSE, FASTING 255 MG/DL (80-110); POTASSIUM SERUM 3.4 MEQ/L (3.5-5.1); SODIUM LEVEL 138 MEQ/L (136-145)
[2017-10-10] MEDS: SPIRONOLACTONE 50 MG TAB PO ×2 (08:16→17:51)
[2017-10-10] MEDS: CETIRIZINE (ZyrTEC) 10 MG TAB PO (08:16)
[2017-10-10] MEDS: LEVOTHYROXINE 50MCG TABLET (0.05MG) PO (08:16)
[2017-10-10] MEDS: HumaLOG INSULIN (NovoLOG) PER UNIT SC ×4 (08:17→21:03)
[2017-10-10] MEDS: OMEPRAZOLE 20 MG CAP PO (08:17)
[2017-10-10] MEDS: DOCUSATE SODIUM 100 MG CAP PO ×2 (08:17→20:28)
[2017-10-10] MEDS: FUROSEMIDE 40 MG TAB PO (08:17)
[2017-10-10] MEDS: MAGNESIUM OXIDE 400 MG TAB (MAG-OX) PO (08:17)
[2017-10-10 11:13] LABS: BEDSIDE GLUCOSE 160 MG/DL (80-115)
[2017-10-10] MEDS: tiZANidine 4 MG TAB PO ×2 (14:18→21:22)
[2017-10-10 17:24] LABS: BEDSIDE GLUCOSE 276 MG/DL (80-115)
[2017-10-10] MEDS: LIDOCAINE 5% OINT 30 GM TOP (18:00)
[2017-10-10] MEDS: EUCERIN 120GM CREAM TOP (20:29)
[2017-10-10] MEDS: MUPIROCIN 2% OINT 22 GM TUBE TOP (20:30)
[2017-10-10 21:13] LABS: BEDSIDE GLUCOSE 427 MG/DL (80-115)
[2017-10-10] MEDS: ONDANSETRON 4MG/2ML VIAL (J2405) IV (21:22)
[2017-10-11] MEDS: ACETAMINOPHEN TAB 650MG DOSE (2X325MG) PO (02:51)
[2017-10-11] MEDS: oxyCODONE 5MG TAB PO ×3 (02:51→14:58)
[2017-10-11] MEDS: HEPARIN SOD (PORCINE) 5000 UNITS/ML VIAL SC ×3 (05:12→21:55)
[2017-10-11 07:33] LABS: HEMATOCRIT 37.1 % (36.0-47.0); HEMOGLOBIN 12.3 g/dl (12.0-16.0); MEAN CORPUSCULAR HEMOGLOBIN 28.5 pg (27.0-33.0); MEAN CORPUSCULAR HGB CONC 33.2 g/dl (32.0-36.5); MEAN CORPUSCULAR VOLUME 85.9 fl (80.0-96.0); PLATELET COUNT, AUTOMATED 171 10^3/uL (150-450); RED BLOOD COUNT 4.32 10^6/uL (4.00-5.40); RED CELL DISTRIBUTION WIDTH 14.2 % (11.5-14.5); WHITE BLOOD COUNT 5.1 10^3/uL (4.0-10.0)
[2017-10-11 07:48] LABS: AMMONIA 108 uMOL/L (<32)
[2017-10-11 07:53] LABS: ANION GAP 7 MEQ/L (8-16); BLOOD UREA NITROGEN 22 MG/DL (7-18); CARBON DIOXIDE LEVEL 31 MEQ/L (21-32); CHLORIDE LEVEL 98 MEQ/L (98-107); GLOMERULAR FILTRATION RATE 48.3 (>45); GLUCOSE, FASTING 249 MG/DL (80-110); MAGNESIUM LEVEL 2.2 MG/DL (1.8-2.4); POTASSIUM SERUM 3.7 MEQ/L (3.5-5.1); SODIUM LEVEL 136 MEQ/L (136-145)
[2017-10-11] MEDS: POTASSIUM CHLORIDE 10 MEQ SR TABLET PO (08:27)
[2017-10-11] MEDS: OMEPRAZOLE 20 MG CAP PO (08:27)
[2017-10-11] MEDS: MAGNESIUM OXIDE 400 MG TAB (MAG-OX) PO (08:27)
[2017-10-11] MEDS: LACTULOSE 20 GM/30 ML SYRUP UD PO ×2 (08:27→21:53)
[2017-10-11] MEDS: LEVOTHYROXINE 50MCG TABLET (0.05MG) PO (08:27)
[2017-10-11] MEDS: rifAXIMin 550 MG TAB (XIFAXAN) PO ×2 (08:27→21:53)
[2017-10-11] MEDS: DOCUSATE SODIUM 100 MG CAP PO ×2 (08:27→21:53)
[2017-10-11] MEDS: METOPROLOL SUCC *XL* 25MG TAB (TopROL *XL*) PO ×2 (08:28→20:56)
[2017-10-11] MEDS: FUROSEMIDE 40 MG TAB PO (08:28)
[2017-10-11] MEDS: CETIRIZINE (ZyrTEC) 10 MG TAB PO (08:28)
[2017-10-11] MEDS: SPIRONOLACTONE 50 MG TAB PO ×2 (08:28→18:36)
[2017-10-11] MEDS: tiZANidine 4 MG TAB PO ×3 (08:28→21:53)
[2017-10-11] MEDS: GABAPENTIN 300 MG CAP PO ×4 (08:28→21:53)
[2017-10-11] MEDS: DULoxetine 30 MG CAP (CYMBALTA) PO ×2 (08:28→21:53)
[2017-10-11] MEDS: HumaLOG INSULIN (NovoLOG) PER UNIT SC ×4 (08:29→21:54)
[2017-10-11] MEDS: MUPIROCIN 2% OINT 22 GM TUBE TOP ×4 (09:00→22:05)
[2017-10-11] MEDS: LIDOCAINE 5% OINT 30 GM TOP ×2 (09:00→21:57)
[2017-10-11 12:18] LABS: BEDSIDE GLUCOSE 297 MG/DL (80-115)
[2017-10-11] MEDS: hydrOXYzine 25 MG TAB PO ×2 (14:58→21:53)
[2017-10-11 18:09] LABS: BEDSIDE GLUCOSE 357 MG/DL (80-115)
[2017-10-11] MEDS: CEPHALEXIN 500 MG CAP PO ×2 (18:35→22:03)
[2017-10-11 20:23] LABS: BEDSIDE GLUCOSE 424 MG/DL (80-115)
[2017-10-11] MEDS ORDERED: HEPARIN SOD (PORCINE) 5000 UNITS/ML VIAL As Ordered (21:46)
[2017-10-11] MEDS: LEVEMIR (INSULIN DETEMIR) 1 UNITS/0.01ML SC (21:54)
[2017-10-12] MEDS: CEPHALEXIN 500 MG CAP PO ×4 (05:03→22:57)
[2017-10-12] MEDS: HEPARIN SOD (PORCINE) 5000 UNITS/ML VIAL SC ×4 (05:03→23:00)
[2017-10-12] MEDS: oxyCODONE 5MG TAB PO ×3 (05:04→18:46)
[2017-10-12 06:48] LABS: HEMOGLOBIN 11.8 g/dl (12.0-16.0); MEAN CORPUSCULAR HEMOGLOBIN 28.1 pg (27.0-33.0); MEAN CORPUSCULAR HGB CONC 32.8 g/dl (32.0-36.5); MEAN CORPUSCULAR VOLUME 85.7 fl (80.0-96.0); PLATELET COUNT, AUTOMATED 157 10^3/uL (150-450); RED CELL DISTRIBUTION WIDTH 14.3 % (11.5-14.5); WHITE BLOOD COUNT 4.2 10^3/uL (4.0-10.0)
[2017-10-12 07:02] LABS: AMMONIA 71 uMOL/L (<32)
[2017-10-12 07:07] LABS: ANION GAP 6 MEQ/L (8-16); BLOOD UREA NITROGEN 23 MG/DL (7-18); CARBON DIOXIDE LEVEL 32 MEQ/L (21-32); CHLORIDE LEVEL 99 MEQ/L (98-107); CREATININE FOR GFR 1.25 MG/DL (0.55-1.02); GLOMERULAR FILTRATION RATE 46.1 (>45); GLUCOSE, FASTING 289 MG/DL (80-110); SODIUM LEVEL 137 MEQ/L (136-145)
[2017-10-12] MEDS: HumaLOG INSULIN (NovoLOG) PER UNIT SC ×5 (08:14→23:01)
[2017-10-12] MEDS: rifAXIMin 550 MG TAB (XIFAXAN) PO ×3 (08:14→23:00)
[2017-10-12] MEDS: LACTULOSE 20 GM/30 ML SYRUP UD PO ×3 (08:14→22:59)
[2017-10-12] MEDS: DULoxetine 30 MG CAP (CYMBALTA) PO ×3 (08:15→22:59)
[2017-10-12] MEDS: DOCUSATE SODIUM 100 MG CAP PO ×3 (08:15→22:59)
[2017-10-12] MEDS: OMEPRAZOLE 20 MG CAP PO (08:15)
[2017-10-12] MEDS: LEVOTHYROXINE 50MCG TABLET (0.05MG) PO (08:15)
[2017-10-12] MEDS: tiZANidine 4 MG TAB PO ×2 (08:15→18:46)
[2017-10-12] MEDS: hydrOXYzine 25 MG TAB PO ×2 (08:15→18:46)
[2017-10-12] MEDS: GABAPENTIN 300 MG CAP PO ×5 (08:15→22:59)
[2017-10-12] MEDS: CETIRIZINE (ZyrTEC) 10 MG TAB PO (08:15)
[2017-10-12] MEDS: POTASSIUM CHLORIDE 10 MEQ SR TABLET PO (08:15)
[2017-10-12] MEDS: MAGNESIUM OXIDE 400 MG TAB (MAG-OX) PO (08:15)
[2017-10-12] MEDS: LEVEMIR (INSULIN DETEMIR) 1 UNITS/0.01ML SC ×3 (08:16→23:01)
[2017-10-12] MEDS: MUPIROCIN 2% OINT 22 GM TUBE TOP ×6 (08:16→23:06)
[2017-10-12] MEDS: LIDOCAINE 5% OINT 30 GM TOP ×2 (08:16→21:35)
[2017-10-12] MEDS: FUROSEMIDE 40 MG TAB PO (08:16)
[2017-10-12] MEDS: SPIRONOLACTONE 50 MG TAB PO ×2 (08:17→18:43)
[2017-10-12] MEDS: TUBERCULIN PPD 5 UNITS/0.1 ML ID (08:18)
[2017-10-12] MEDS: METOPROLOL SUCC *XL* 25MG TAB (TopROL *XL*) PO ×3 (08:19→22:58)
[2017-10-12 11:59] LABS: BEDSIDE GLUCOSE 225 MG/DL (80-115)
[2017-10-12 17:33] LABS: BEDSIDE GLUCOSE 205 MG/DL (80-115)
[2017-10-12 19:56] LABS: BEDSIDE GLUCOSE 277 MG/DL (80-115)
[2017-10-12] MEDS ORDERED: HEPARIN SOD (PORCINE) 5000 UNITS/ML VIAL As Ordered (21:22)
[2017-10-12] MEDS ORDERED: CEPHALEXIN 500 MG CAP As Ordered (21:23)
[2017-10-12] MEDS: ACETAMINOPHEN TAB 650MG DOSE (2X325MG) PO (23:02)
[2017-10-13] MEDS: HEPARIN SOD (PORCINE) 5000 UNITS/ML VIAL SC ×2 (06:01→14:21)
[2017-10-13] MEDS: tiZANidine 4 MG TAB PO ×3 (06:01→23:22)
[2017-10-13] MEDS: CEPHALEXIN 500 MG CAP PO ×3 (06:01→21:12)
[2017-10-13] MEDS: oxyCODONE 5MG TAB PO ×4 (06:02→23:20)
[2017-10-13 06:34] LABS: HEMATOCRIT 36.4 % (36.0-47.0); PLATELET COUNT, AUTOMATED 167 10^3/uL (150-450); RED BLOOD COUNT 4.28 10^6/uL (4.00-5.40); RED CELL DISTRIBUTION WIDTH 14.4 % (11.5-14.5); WHITE BLOOD COUNT 4.6 10^3/uL (4.0-10.0)
[2017-10-13 06:49] LABS: AMMONIA 99 uMOL/L (<32)
[2017-10-13 06:53] LABS: ANION GAP 7 MEQ/L (8-16); BLOOD UREA NITROGEN 23 MG/DL (7-18); CALCIUM LEVEL 9.1 MG/DL (8.8-10.2); CARBON DIOXIDE LEVEL 32 MEQ/L (21-32); CHLORIDE LEVEL 99 MEQ/L (98-107); CREATININE FOR GFR 1.23 MG/DL (0.55-1.02); GLOMERULAR FILTRATION RATE 46.9 (>45); GLUCOSE, FASTING 241 MG/DL (80-110); SODIUM LEVEL 138 MEQ/L (136-145)
[2017-10-13] MEDS: MAGNESIUM OXIDE 400 MG TAB (MAG-OX) PO (07:45)
[2017-10-13] MEDS: rifAXIMin 550 MG TAB (XIFAXAN) PO ×2 (07:46→21:12)
[2017-10-13] MEDS: DULoxetine 30 MG CAP (CYMBALTA) PO ×2 (07:46→21:12)
[2017-10-13] MEDS: DOCUSATE SODIUM 100 MG CAP PO ×2 (07:46→19:53)
[2017-10-13] MEDS: METOPROLOL SUCC *XL* 25MG TAB (TopROL *XL*) PO ×2 (07:46→21:12)
[2017-10-13] MEDS: CETIRIZINE (ZyrTEC) 10 MG TAB PO (07:46)
[2017-10-13] MEDS: OMEPRAZOLE 20 MG CAP PO (07:46)
[2017-10-13] MEDS: FUROSEMIDE 40 MG TAB PO (07:47)
[2017-10-13] MEDS: SPIRONOLACTONE 50 MG TAB PO ×2 (07:47→16:19)
[2017-10-13] MEDS: LEVOTHYROXINE 50MCG TABLET (0.05MG) PO (07:47)
[2017-10-13] MEDS: POTASSIUM CHLORIDE 10 MEQ SR TABLET PO (07:47)
[2017-10-13] MEDS: GABAPENTIN 300 MG CAP PO ×4 (07:47→21:12)
[2017-10-13] MEDS: LACTULOSE 20 GM/30 ML SYRUP UD PO ×2 (07:48→21:12)
[2017-10-13] MEDS: HumaLOG INSULIN (NovoLOG) PER UNIT SC ×4 (07:49→21:13)
[2017-10-13] MEDS: LEVEMIR (INSULIN DETEMIR) 1 UNITS/0.01ML SC ×2 (07:50→21:13)
[2017-10-13] MEDS: MUPIROCIN 2% OINT 22 GM TUBE TOP ×4 (07:51→21:14)
[2017-10-13] MEDS: LIDOCAINE 5% OINT 30 GM TOP ×2 (07:51→21:00)
[2017-10-13 11:38] LABS: BEDSIDE GLUCOSE 189 MG/DL (80-115)
[2017-10-13] MEDS: hydrOXYzine 25 MG TAB PO ×2 (11:50→16:19)
[2017-10-13] MEDS: ACETAMINOPHEN TAB 650MG DOSE (2X325MG) PO ×2 (11:51→16:21)
[2017-10-13 16:52] LABS: BEDSIDE GLUCOSE 204 MG/DL (80-115)
[2017-10-13] MEDS ORDERED: CEPHALEXIN 500 MG CAP As Ordered (21:00)
[2017-10-14 00:03] LABS: BEDSIDE GLUCOSE 255 MG/DL (80-115)
[2017-10-14] MEDS: oxyCODONE 5MG TAB PO ×3 (05:47→23:17)
[2017-10-14] MEDS: tiZANidine 4 MG TAB PO ×2 (05:47→23:17)
[2017-10-14] MEDS: CEPHALEXIN 500 MG CAP PO (05:47)
[2017-10-14 07:13] LABS: HEMATOCRIT 37.7 % (36.0-47.0); HEMOGLOBIN 12.3 g/dl (12.0-16.0); MEAN CORPUSCULAR HGB CONC 32.6 g/dl (32.0-36.5); MEAN CORPUSCULAR VOLUME 85.9 fl (80.0-96.0); PLATELET COUNT, AUTOMATED 172 10^3/uL (150-450); RED BLOOD COUNT 4.39 10^6/uL (4.00-5.40); RED CELL DISTRIBUTION WIDTH 14.5 % (11.5-14.5); WHITE BLOOD COUNT 4.3 10^3/uL (4.0-10.0)
[2017-10-14 07:33] LABS: ANION GAP 5 MEQ/L (8-16); BLOOD UREA NITROGEN 27 MG/DL (7-18); CALCIUM LEVEL 9.1 MG/DL (8.8-10.2); CARBON DIOXIDE LEVEL 32 MEQ/L (21-32); CHLORIDE LEVEL 100 MEQ/L (98-107); CREATININE FOR GFR 1.25 MG/DL (0.55-1.02); GLOMERULAR FILTRATION RATE 46.1 (>45); GLUCOSE, FASTING 196 MG/DL (80-110); MAGNESIUM LEVEL 2.1 MG/DL (1.8-2.4); POTASSIUM SERUM 3.9 MEQ/L (3.5-5.1); SODIUM LEVEL 137 MEQ/L (136-145)
[2017-10-14] MEDS: HumaLOG INSULIN (NovoLOG) PER UNIT SC ×4 (08:09→20:54)
[2017-10-14] MEDS: LEVEMIR (INSULIN DETEMIR) 1 UNITS/0.01ML SC ×2 (08:09→20:55)
[2017-10-14] MEDS: LACTULOSE 20 GM/30 ML SYRUP UD PO ×2 (08:09→20:55)
[2017-10-14] MEDS: POTASSIUM CHLORIDE 10 MEQ SR TABLET PO (08:10)
[2017-10-14] MEDS: rifAXIMin 550 MG TAB (XIFAXAN) PO ×2 (08:10→20:55)
[2017-10-14] MEDS: ACETAMINOPHEN TAB 650MG DOSE (2X325MG) PO (08:10)
[2017-10-14] MEDS: DOCUSATE SODIUM 100 MG CAP PO ×2 (08:10→20:55)
[2017-10-14] MEDS: GABAPENTIN 300 MG CAP PO ×4 (08:10→20:55)
[2017-10-14] MEDS: DULoxetine 30 MG CAP (CYMBALTA) PO ×2 (08:11→20:55)
[2017-10-14] MEDS: MAGNESIUM OXIDE 400 MG TAB (MAG-OX) PO (08:11)
[2017-10-14] MEDS: LEVOTHYROXINE 50MCG TABLET (0.05MG) PO (08:11)
[2017-10-14] MEDS: CETIRIZINE (ZyrTEC) 10 MG TAB PO (08:11)
[2017-10-14] MEDS: SPIRONOLACTONE 50 MG TAB PO ×2 (08:11→17:05)
[2017-10-14] MEDS: hydrOXYzine 25 MG TAB PO ×2 (08:11→17:03)
[2017-10-14] MEDS: METOPROLOL SUCC *XL* 25MG TAB (TopROL *XL*) PO ×2 (08:11→20:57)
[2017-10-14] MEDS: OMEPRAZOLE 20 MG CAP PO (08:11)
[2017-10-14] MEDS: MUPIROCIN 2% OINT 22 GM TUBE TOP ×3 (08:12→20:55)
[2017-10-14] MEDS: FUROSEMIDE 40 MG TAB PO (08:12)
[2017-10-14] MEDS: LIDOCAINE 5% OINT 30 GM TOP ×2 (08:13→20:55)
[2017-10-14] MEDS: PPD DOCUMENTATION ENTRY MISC XX (10:00)
[2017-10-14] MEDS ORDERED: oxyCODONE 5MG TAB As Ordered (12:42)
[2017-10-14] MEDS ORDERED: methylPREDNISolone SUSP 40 MG/ML (DEPO-medrol) VIAL (J1030) As Ordered (12:49)
[2017-10-14] MEDS ORDERED: ISOVUE-M 300 61% 15ML VIAL (Q9967) As Ordered (12:49)
[2017-10-14] MEDS ORDERED: LIDOCAINE 1% SDV INJ 30 ML VIAL As Ordered (12:49)
[2017-10-14 16:56] LABS: BEDSIDE GLUCOSE 254 MG/DL (80-115)
[2017-10-14 20:33] LABS: BEDSIDE GLUCOSE 256 MG/DL (80-115)
[2017-10-15] MEDS: oxyCODONE 5MG TAB PO ×3 (05:38→18:42)
[2017-10-15 07:13] LABS: HEMATOCRIT 38.7 % (36.0-47.0); HEMOGLOBIN 12.9 g/dl (12.0-16.0); MEAN CORPUSCULAR HEMOGLOBIN 28.7 pg (27.0-33.0); MEAN CORPUSCULAR HGB CONC 33.3 g/dl (32.0-36.5); MEAN CORPUSCULAR VOLUME 86.2 fl (80.0-96.0); PLATELET COUNT, AUTOMATED 178 10^3/uL (150-450); RED BLOOD COUNT 4.49 10^6/uL (4.00-5.40); RED CELL DISTRIBUTION WIDTH 14.5 % (11.5-14.5); WHITE BLOOD COUNT 5.8 10^3/uL (4.0-10.0)
[2017-10-15 07:23] LABS: ANION GAP 7 MEQ/L (8-16); BLOOD UREA NITROGEN 26 MG/DL (7-18); CALCIUM LEVEL 8.9 MG/DL (8.8-10.2); CARBON DIOXIDE LEVEL 28 MEQ/L (21-32); CHLORIDE LEVEL 99 MEQ/L (98-107); CREATININE FOR GFR 1.42 MG/DL (0.55-1.02); GLOMERULAR FILTRATION RATE 39.8 (>45); GLUCOSE, FASTING 336 MG/DL (70-100); POTASSIUM SERUM 4.3 MEQ/L (3.5-5.1); SODIUM LEVEL 134 MEQ/L (136-145)
[2017-10-15] MEDS: LACTULOSE 20 GM/30 ML SYRUP UD PO ×2 (08:41→19:58)
[2017-10-15] MEDS: POTASSIUM CHLORIDE 10 MEQ SR TABLET PO (08:42)
[2017-10-15] MEDS: HumaLOG INSULIN (NovoLOG) PER UNIT SC ×4 (08:42→21:14)
[2017-10-15] MEDS: GABAPENTIN 300 MG CAP PO ×4 (08:42→19:58)
[2017-10-15] MEDS: CETIRIZINE (ZyrTEC) 10 MG TAB PO (08:42)
[2017-10-15] MEDS: DOCUSATE SODIUM 100 MG CAP PO ×2 (08:42→19:58)
[2017-10-15] MEDS: LEVEMIR (INSULIN DETEMIR) 1 UNITS/0.01ML SC ×2 (08:43→19:59)
[2017-10-15] MEDS: SPIRONOLACTONE 50 MG TAB PO ×2 (08:43→18:42)
[2017-10-15] MEDS: OMEPRAZOLE 20 MG CAP PO (08:43)
[2017-10-15] MEDS: MAGNESIUM OXIDE 400 MG TAB (MAG-OX) PO (08:43)
[2017-10-15] MEDS: tiZANidine 4 MG TAB PO ×2 (08:43→18:42)
[2017-10-15] MEDS: LEVOTHYROXINE 50MCG TABLET (0.05MG) PO (08:43)
[2017-10-15] MEDS: FUROSEMIDE 40 MG TAB PO (08:43)
[2017-10-15] MEDS: DULoxetine 30 MG CAP (CYMBALTA) PO ×2 (08:43→19:58)
[2017-10-15] MEDS: rifAXIMin 550 MG TAB (XIFAXAN) PO ×2 (08:43→19:58)
[2017-10-15] MEDS: hydrOXYzine 25 MG TAB PO ×2 (08:44→18:42)
[2017-10-15] MEDS: ACETAMINOPHEN TAB 650MG DOSE (2X325MG) PO (08:44)
[2017-10-15] MEDS: METOPROLOL SUCC *XL* 25MG TAB (TopROL *XL*) PO ×2 (08:46→19:59)
[2017-10-15] MEDS: LIDOCAINE 5% OINT 30 GM TOP ×2 (08:47→20:00)
[2017-10-15] MEDS: MUPIROCIN 2% OINT 22 GM TUBE TOP ×2 (08:47→19:59)
[2017-10-15 13:23] LABS: BEDSIDE GLUCOSE 390 MG/DL (80-115)
[2017-10-15 17:23] LABS: BEDSIDE GLUCOSE 233 MG/DL (80-115)
[2017-10-15 21:19] LABS: BEDSIDE GLUCOSE 396 MG/DL (80-115)
[2017-10-16] MEDS: oxyCODONE 5MG TAB PO ×3 (02:37→17:52)
[2017-10-16] MEDS: tiZANidine 4 MG TAB PO ×3 (03:09→17:52)
[2017-10-16 07:19] LABS: HEMOGLOBIN 14.5 g/dl (12.0-16.0); MEAN CORPUSCULAR HEMOGLOBIN 28.1 pg (27.0-33.0); MEAN CORPUSCULAR VOLUME 85.3 fl (80.0-96.0); PLATELET COUNT, AUTOMATED 234 10^3/uL (150-450); RED BLOOD COUNT 5.16 10^6/uL (4.00-5.40); RED CELL DISTRIBUTION WIDTH 14.3 % (11.5-14.5); WHITE BLOOD COUNT 9.1 10^3/uL (4.0-10.0)
[2017-10-16 07:31] LABS: AMMONIA 60 uMOL/L (<32)
[2017-10-16 07:33] LABS: ANION GAP 11 MEQ/L (8-16); BLOOD UREA NITROGEN 29 MG/DL (7-18); CALCIUM LEVEL 9.8 MG/DL (8.8-10.2); CARBON DIOXIDE LEVEL 26 MEQ/L (21-32); CHLORIDE LEVEL 102 MEQ/L (98-107); CREATININE FOR GFR 1.34 MG/DL (0.55-1.02); GLOMERULAR FILTRATION RATE 42.5 (>45); GLUCOSE, FASTING 226 MG/DL (70-100); POTASSIUM SERUM 4.4 MEQ/L (3.5-5.1); SODIUM LEVEL 139 MEQ/L (136-145)
[2017-10-16] MEDS: LEVEMIR (INSULIN DETEMIR) 1 UNITS/0.01ML SC ×2 (08:15→20:36)
[2017-10-16] MEDS: GABAPENTIN 300 MG CAP PO ×4 (08:16→20:34)
[2017-10-16] MEDS: OMEPRAZOLE 20 MG CAP PO (08:16)
[2017-10-16] MEDS: POTASSIUM CHLORIDE 10 MEQ SR TABLET PO (08:16)
[2017-10-16] MEDS: LACTULOSE 20 GM/30 ML SYRUP UD PO ×2 (08:16→20:36)
[2017-10-16] MEDS: HumaLOG INSULIN (NovoLOG) PER UNIT SC ×4 (08:16→20:36)
[2017-10-16] MEDS: DULoxetine 30 MG CAP (CYMBALTA) PO ×2 (08:16→20:34)
[2017-10-16] MEDS: MAGNESIUM OXIDE 400 MG TAB (MAG-OX) PO (08:17)
[2017-10-16] MEDS: DOCUSATE SODIUM 100 MG CAP PO ×2 (08:17→20:34)
[2017-10-16] MEDS: SPIRONOLACTONE 50 MG TAB PO ×2 (08:17→17:52)
[2017-10-16] MEDS: LEVOTHYROXINE 50MCG TABLET (0.05MG) PO (08:17)
[2017-10-16] MEDS: rifAXIMin 550 MG TAB (XIFAXAN) PO ×2 (08:17→20:34)
[2017-10-16] MEDS: CETIRIZINE (ZyrTEC) 10 MG TAB PO (08:17)
[2017-10-16] MEDS: METOPROLOL SUCC *XL* 25MG TAB (TopROL *XL*) PO ×2 (08:17→20:35)
[2017-10-16] MEDS: FUROSEMIDE 40 MG TAB PO (08:18)
[2017-10-16] MEDS: MUPIROCIN 2% OINT 22 GM TUBE TOP ×2 (09:11→20:38)
[2017-10-16] MEDS: LIDOCAINE 5% OINT 30 GM TOP ×2 (10:04→20:37)
[2017-10-16 11:44] LABS: BEDSIDE GLUCOSE 312 MG/DL (80-115)
[2017-10-16] MEDS: hydrOXYzine 25 MG TAB PO ×2 (14:38→22:36)
[2017-10-16] MEDS: EUCERIN 120GM CREAM TOP (14:39)
[2017-10-16 17:22] LABS: BEDSIDE GLUCOSE 278 MG/DL (80-115)
[2017-10-16 20:28] LABS: BEDSIDE GLUCOSE 401 MG/DL (80-115)
[2017-10-17] MEDS: tiZANidine 4 MG TAB PO ×4 (02:03→23:11)
[2017-10-17] MEDS: oxyCODONE 5MG TAB PO ×4 (02:03→23:12)
[2017-10-17 06:17] LABS: BEDSIDE GLUCOSE 281 MG/DL (80-115)
[2017-10-17] MEDS: LACTULOSE 20 GM/30 ML SYRUP UD PO ×2 (08:51→20:08)
[2017-10-17] MEDS: LEVEMIR (INSULIN DETEMIR) 1 UNITS/0.01ML SC ×2 (08:51→20:08)
[2017-10-17] MEDS: HumaLOG INSULIN (NovoLOG) PER UNIT SC ×4 (08:51→20:08)
[2017-10-17] MEDS: FUROSEMIDE 40 MG TAB PO (08:52)
[2017-10-17] MEDS: rifAXIMin 550 MG TAB (XIFAXAN) PO ×2 (08:52→20:08)
[2017-10-17] MEDS: DOCUSATE SODIUM 100 MG CAP PO ×2 (08:52→20:08)
[2017-10-17] MEDS: OMEPRAZOLE 20 MG CAP PO (08:52)
[2017-10-17] MEDS: MAGNESIUM OXIDE 400 MG TAB (MAG-OX) PO (08:52)
[2017-10-17] MEDS: CETIRIZINE (ZyrTEC) 10 MG TAB PO (08:53)
[2017-10-17] MEDS: GABAPENTIN 300 MG CAP PO ×4 (08:53→20:08)
[2017-10-17] MEDS: SPIRONOLACTONE 50 MG TAB PO ×2 (08:53→16:56)
[2017-10-17] MEDS: METOPROLOL SUCC *XL* 25MG TAB (TopROL *XL*) PO ×2 (08:53→20:08)
[2017-10-17] MEDS: LEVOTHYROXINE 50MCG TABLET (0.05MG) PO (08:54)
[2017-10-17] MEDS: POTASSIUM CHLORIDE 10 MEQ SR TABLET PO (08:54)
[2017-10-17] MEDS: DULoxetine 30 MG CAP (CYMBALTA) PO ×2 (08:54→20:08)
[2017-10-17 11:28] LABS: BEDSIDE GLUCOSE 340 MG/DL (80-115)
[2017-10-17] MEDS: LIDOCAINE 5% OINT 30 GM TOP ×2 (12:48→20:12)
[2017-10-17] MEDS: MUPIROCIN 2% OINT 22 GM TUBE TOP ×2 (12:49→20:12)
[2017-10-17 16:41] LABS: BEDSIDE GLUCOSE 282 MG/DL (80-115)
[2017-10-17 19:48] LABS: BEDSIDE GLUCOSE 240 MG/DL (80-115)
[2017-10-18] MEDS: hydrOXYzine 25 MG TAB PO ×2 (03:31→12:29)
[2017-10-18 06:58] LABS: BEDSIDE GLUCOSE 270 MG/DL (80-115)
[2017-10-18] MEDS: LACTULOSE 20 GM/30 ML SYRUP UD PO ×2 (08:41→20:36)
[2017-10-18] MEDS: FUROSEMIDE 40 MG TAB PO (08:42)
[2017-10-18] MEDS: HumaLOG INSULIN (NovoLOG) PER UNIT SC ×4 (08:43→20:37)
[2017-10-18] MEDS: LEVEMIR (INSULIN DETEMIR) 1 UNITS/0.01ML SC ×2 (08:44→20:37)
[2017-10-18] MEDS: rifAXIMin 550 MG TAB (XIFAXAN) PO ×2 (08:45→20:36)
[2017-10-18] MEDS: DULoxetine 30 MG CAP (CYMBALTA) PO ×2 (08:45→20:36)
[2017-10-18] MEDS: METOPROLOL SUCC *XL* 25MG TAB (TopROL *XL*) PO ×2 (08:47→20:35)
[2017-10-18] MEDS: SPIRONOLACTONE 50 MG TAB PO ×2 (08:47→17:32)
[2017-10-18] MEDS: MAGNESIUM OXIDE 400 MG TAB (MAG-OX) PO (08:47)
[2017-10-18] MEDS: POTASSIUM CHLORIDE 10 MEQ SR TABLET PO (08:47)
[2017-10-18] MEDS: CETIRIZINE (ZyrTEC) 10 MG TAB PO (08:47)
[2017-10-18] MEDS: OMEPRAZOLE 20 MG CAP PO (08:48)
[2017-10-18] MEDS: DOCUSATE SODIUM 100 MG CAP PO ×2 (08:48→20:36)
[2017-10-18] MEDS: GABAPENTIN 300 MG CAP PO ×4 (08:48→20:36)
[2017-10-18] MEDS: LIDOCAINE 5% OINT 30 GM TOP ×2 (09:00→20:37)
[2017-10-18] MEDS: MUPIROCIN 2% OINT 22 GM TUBE TOP ×2 (09:00→20:37)
[2017-10-18] MEDS: LEVOTHYROXINE 50MCG TABLET (0.05MG) PO (09:00)
[2017-10-18] MEDS: oxyCODONE 5MG TAB PO ×3 (10:41→23:34)
[2017-10-18] MEDS: tiZANidine 4 MG TAB PO ×3 (10:41→23:34)
[2017-10-18 11:33] LABS: BEDSIDE GLUCOSE 302 MG/DL (80-115)
[2017-10-18 17:11] LABS: BEDSIDE GLUCOSE 228 MG/DL (80-115)
[2017-10-18 20:06] LABS: BEDSIDE GLUCOSE 383 MG/DL (80-115)
[2017-10-19] MEDS: hydrOXYzine 25 MG TAB PO ×2 (00:57→08:34)
[2017-10-19 07:38] LABS: BEDSIDE GLUCOSE 240 MG/DL (80-115)
[2017-10-19] MEDS: HumaLOG INSULIN (NovoLOG) PER UNIT SC ×4 (08:32→20:01)
[2017-10-19] MEDS: LACTULOSE 20 GM/30 ML SYRUP UD PO ×2 (08:32→20:00)
[2017-10-19] MEDS: LEVOTHYROXINE 50MCG TABLET (0.05MG) PO (08:33)
[2017-10-19] MEDS: LEVEMIR (INSULIN DETEMIR) 1 UNITS/0.01ML SC ×2 (08:33→20:01)
[2017-10-19] MEDS: FUROSEMIDE 40 MG TAB PO (08:33)
[2017-10-19] MEDS: GABAPENTIN 300 MG CAP PO ×4 (08:33→20:01)
[2017-10-19] MEDS: SPIRONOLACTONE 50 MG TAB PO ×2 (08:33→17:03)
[2017-10-19] MEDS: DOCUSATE SODIUM 100 MG CAP PO ×2 (08:33→20:01)
[2017-10-19] MEDS: OMEPRAZOLE 20 MG CAP PO (08:34)
[2017-10-19] MEDS: CETIRIZINE (ZyrTEC) 10 MG TAB PO (08:34)
[2017-10-19] MEDS: rifAXIMin 550 MG TAB (XIFAXAN) PO ×2 (08:34→20:01)
[2017-10-19] MEDS: DULoxetine 30 MG CAP (CYMBALTA) PO ×2 (08:34→20:01)
[2017-10-19] MEDS: METOPROLOL SUCC *XL* 25MG TAB (TopROL *XL*) PO ×2 (08:35→20:02)
[2017-10-19] MEDS: POTASSIUM CHLORIDE 10 MEQ SR TABLET PO (08:36)
[2017-10-19] MEDS: MAGNESIUM OXIDE 400 MG TAB (MAG-OX) PO (08:36)
[2017-10-19] MEDS: LIDOCAINE 5% OINT 30 GM TOP ×2 (11:00→20:03)
[2017-10-19] MEDS: MUPIROCIN 2% OINT 22 GM TUBE TOP ×2 (11:00→20:02)
[2017-10-19 11:49] LABS: BEDSIDE GLUCOSE 238 MG/DL (80-115)
[2017-10-19] MEDS: tiZANidine 4 MG TAB PO ×2 (12:03→20:01)
[2017-10-19] MEDS: oxyCODONE 5MG TAB PO ×2 (12:04→20:02)
[2017-10-19 16:46] LABS: BEDSIDE GLUCOSE 291 MG/DL (80-115)
[2017-10-19 20:00] LABS: BEDSIDE GLUCOSE 297 MG/DL (80-115)
[2017-10-20] MEDS: oxyCODONE 5MG TAB PO ×4 (02:28→21:51)
[2017-10-20] MEDS: hydrOXYzine 25 MG TAB PO ×2 (02:28→15:26)
[2017-10-20] MEDS: tiZANidine 4 MG TAB PO ×3 (02:28→21:51)
[2017-10-20 07:26] LABS: BEDSIDE GLUCOSE 265 MG/DL (80-115)
[2017-10-20] MEDS: rifAXIMin 550 MG TAB (XIFAXAN) PO ×2 (08:51→21:50)
[2017-10-20] MEDS: POTASSIUM CHLORIDE 10 MEQ SR TABLET PO (08:51)
[2017-10-20] MEDS: DOCUSATE SODIUM 100 MG CAP PO ×2 (08:52→21:50)
[2017-10-20] MEDS: LEVOTHYROXINE 50MCG TABLET (0.05MG) PO (08:52)
[2017-10-20] MEDS: MAGNESIUM OXIDE 400 MG TAB (MAG-OX) PO (08:52)
[2017-10-20] MEDS: METOPROLOL SUCC *XL* 25MG TAB (TopROL *XL*) PO ×2 (08:52→21:50)
[2017-10-20] MEDS: GABAPENTIN 300 MG CAP PO ×4 (08:52→21:50)
[2017-10-20] MEDS: DULoxetine 30 MG CAP (CYMBALTA) PO ×2 (08:52→21:50)
[2017-10-20] MEDS: FUROSEMIDE 40 MG TAB PO (08:52)
[2017-10-20] MEDS: CETIRIZINE (ZyrTEC) 10 MG TAB PO (08:52)
[2017-10-20] MEDS: SPIRONOLACTONE 50 MG TAB PO ×2 (08:52→17:50)
[2017-10-20] MEDS: LACTULOSE 20 GM/30 ML SYRUP UD PO ×2 (08:52→21:49)
[2017-10-20] MEDS: HumaLOG INSULIN (NovoLOG) PER UNIT SC ×4 (08:53→21:49)
[2017-10-20] MEDS: LEVEMIR (INSULIN DETEMIR) 1 UNITS/0.01ML SC ×2 (08:53→21:50)
[2017-10-20] MEDS: OMEPRAZOLE 20 MG CAP PO (08:54)
[2017-10-20] MEDS: LIDOCAINE 5% OINT 30 GM TOP ×2 (10:30→21:53)
[2017-10-20] MEDS: MUPIROCIN 2% OINT 22 GM TUBE TOP ×2 (10:30→21:57)
[2017-10-20 11:41] LABS: BEDSIDE GLUCOSE 266 MG/DL (80-115)
[2017-10-20 16:50] LABS: BEDSIDE GLUCOSE 255 MG/DL (80-115)
[2017-10-20 20:24] LABS: BEDSIDE GLUCOSE 296 MG/DL (80-115)
[2017-10-21 06:14] LABS: BEDSIDE GLUCOSE 227 MG/DL (80-115)
[2017-10-21] MEDS: LACTULOSE 20 GM/30 ML SYRUP UD PO ×2 (08:33→20:17)
[2017-10-21] MEDS: SPIRONOLACTONE 50 MG TAB PO ×2 (08:34→16:58)
[2017-10-21] MEDS: rifAXIMin 550 MG TAB (XIFAXAN) PO ×2 (08:34→20:17)
[2017-10-21] MEDS: tiZANidine 4 MG TAB PO ×2 (08:34→23:10)
[2017-10-21] MEDS: CETIRIZINE (ZyrTEC) 10 MG TAB PO (08:35)
[2017-10-21] MEDS: DOCUSATE SODIUM 100 MG CAP PO ×2 (08:35→20:17)
[2017-10-21] MEDS: OMEPRAZOLE 20 MG CAP PO (08:35)
[2017-10-21] MEDS: POTASSIUM CHLORIDE 10 MEQ SR TABLET PO (08:35)
[2017-10-21] MEDS: GABAPENTIN 300 MG CAP PO ×4 (08:36→20:17)
[2017-10-21] MEDS: LEVOTHYROXINE 50MCG TABLET (0.05MG) PO (08:36)
[2017-10-21] MEDS: DULoxetine 30 MG CAP (CYMBALTA) PO ×2 (08:36→20:17)
[2017-10-21] MEDS: METOPROLOL SUCC *XL* 25MG TAB (TopROL *XL*) PO ×2 (08:37→20:19)
[2017-10-21] MEDS: FUROSEMIDE 40 MG TAB PO (08:37)
[2017-10-21] MEDS: MAGNESIUM OXIDE 400 MG TAB (MAG-OX) PO (08:37)
[2017-10-21] MEDS: oxyCODONE 5MG TAB PO ×3 (08:38→23:11)
[2017-10-21] MEDS: HumaLOG INSULIN (NovoLOG) PER UNIT SC ×4 (08:39→20:18)
[2017-10-21] MEDS: LEVEMIR (INSULIN DETEMIR) 1 UNITS/0.01ML SC ×2 (08:39→20:18)
[2017-10-21] MEDS: MUPIROCIN 2% OINT 22 GM TUBE TOP ×2 (08:39→20:20)
[2017-10-21] MEDS: LIDOCAINE 5% OINT 30 GM TOP ×2 (08:40→20:20)
[2017-10-21] MEDS: EUCERIN 120GM CREAM TOP (08:40)
[2017-10-21 12:02] LABS: BEDSIDE GLUCOSE 245 MG/DL (80-115)
[2017-10-21 16:44] LABS: BEDSIDE GLUCOSE 198 MG/DL (80-115)
[2017-10-21] MEDS: hydrOXYzine 25 MG TAB PO (16:58)
[2017-10-21 20:14] LABS: BEDSIDE GLUCOSE 257 MG/DL (80-115)
[2017-10-21] MEDS: ACETAMINOPHEN TAB 650MG DOSE (2X325MG) PO (20:18)
[2017-10-22] MEDS: hydrOXYzine 25 MG TAB PO ×2 (02:06→11:32)
[2017-10-22] MEDS: ACETAMINOPHEN TAB 650MG DOSE (2X325MG) PO (02:06)
[2017-10-22] MEDS: oxyCODONE 5MG TAB PO ×3 (06:02→20:11)
[2017-10-22] MEDS: tiZANidine 4 MG TAB PO ×3 (06:02→20:11)
[2017-10-22 07:12] LABS: BEDSIDE GLUCOSE 234 MG/DL (80-115)
[2017-10-22] MEDS: SPIRONOLACTONE 50 MG TAB PO ×2 (08:46→17:31)
[2017-10-22] MEDS: DOCUSATE SODIUM 100 MG CAP PO ×2 (08:46→20:11)
[2017-10-22] MEDS: LEVOTHYROXINE 50MCG TABLET (0.05MG) PO (08:46)
[2017-10-22] MEDS: OMEPRAZOLE 20 MG CAP PO (08:46)
[2017-10-22] MEDS: POTASSIUM CHLORIDE 10 MEQ SR TABLET PO (08:46)
[2017-10-22] MEDS: rifAXIMin 550 MG TAB (XIFAXAN) PO ×2 (08:46→20:11)
[2017-10-22] MEDS: CETIRIZINE (ZyrTEC) 10 MG TAB PO (08:46)
[2017-10-22] MEDS: MAGNESIUM OXIDE 400 MG TAB (MAG-OX) PO (08:47)
[2017-10-22] MEDS: METOPROLOL SUCC *XL* 25MG TAB (TopROL *XL*) PO ×2 (08:47→20:12)
[2017-10-22] MEDS: GABAPENTIN 300 MG CAP PO ×4 (08:47→20:11)
[2017-10-22] MEDS: DULoxetine 30 MG CAP (CYMBALTA) PO ×2 (08:47→20:11)
[2017-10-22] MEDS: FUROSEMIDE 40 MG TAB PO (08:47)
[2017-10-22] MEDS: LACTULOSE 20 GM/30 ML SYRUP UD PO ×2 (08:47→20:10)
[2017-10-22] MEDS: HumaLOG INSULIN (NovoLOG) PER UNIT SC ×4 (08:48→21:00)
[2017-10-22] MEDS: LEVEMIR (INSULIN DETEMIR) 1 UNITS/0.01ML SC ×2 (08:48→20:12)
[2017-10-22] MEDS: LIDOCAINE 5% OINT 30 GM TOP (08:50)
[2017-10-22] MEDS: EUCERIN 120GM CREAM TOP (08:51)
[2017-10-22] MEDS: MUPIROCIN 2% OINT 22 GM TUBE TOP ×2 (08:51→20:12)
[2017-10-22 11:48] LABS: BEDSIDE GLUCOSE 255 MG/DL (80-115)
[2017-10-22 17:03] LABS: BEDSIDE GLUCOSE 169 MG/DL (80-115)
[2017-10-22 20:05] LABS: BEDSIDE GLUCOSE 243 MG/DL (80-115)
[2017-10-23] MEDS: tiZANidine 4 MG TAB PO ×3 (02:31→16:39)
[2017-10-23] MEDS: hydrOXYzine 25 MG TAB PO ×2 (02:32→10:03)
[2017-10-23] MEDS: oxyCODONE 5MG TAB PO ×3 (02:33→16:39)
[2017-10-23 06:55] LABS: BEDSIDE GLUCOSE 316 MG/DL (80-115)
[2017-10-23] MEDS: LEVEMIR (INSULIN DETEMIR) 1 UNITS/0.01ML SC ×2 (08:06→20:08)
[2017-10-23] MEDS: HumaLOG INSULIN (NovoLOG) PER UNIT SC ×4 (08:07→20:08)
[2017-10-23] MEDS: LACTULOSE 20 GM/30 ML SYRUP UD PO ×2 (08:11→20:07)
[2017-10-23] MEDS: GABAPENTIN 300 MG CAP PO ×4 (08:12→20:08)
[2017-10-23] MEDS: OMEPRAZOLE 20 MG CAP PO (08:12)
[2017-10-23] MEDS: POTASSIUM CHLORIDE 10 MEQ SR TABLET PO (08:12)
[2017-10-23] MEDS: CETIRIZINE (ZyrTEC) 10 MG TAB PO (08:13)
[2017-10-23] MEDS: DOCUSATE SODIUM 100 MG CAP PO ×2 (08:13→20:08)
[2017-10-23] MEDS: DULoxetine 30 MG CAP (CYMBALTA) PO ×2 (08:13→20:08)
[2017-10-23] MEDS: MAGNESIUM OXIDE 400 MG TAB (MAG-OX) PO (08:13)
[2017-10-23] MEDS: FUROSEMIDE 40 MG TAB PO (08:14)
[2017-10-23] MEDS: SPIRONOLACTONE 50 MG TAB PO ×2 (08:14→16:39)
[2017-10-23] MEDS: LEVOTHYROXINE 50MCG TABLET (0.05MG) PO (08:14)
[2017-10-23] MEDS: rifAXIMin 550 MG TAB (XIFAXAN) PO ×2 (08:14→20:08)
[2017-10-23] MEDS: METOPROLOL SUCC *XL* 25MG TAB (TopROL *XL*) PO ×2 (08:15→20:08)
[2017-10-23] MEDS: MUPIROCIN 2% OINT 22 GM TUBE TOP ×2 (08:15→20:09)
[2017-10-23] MEDS: LIDOCAINE 5% OINT 30 GM TOP (12:28)
[2017-10-23 12:29] LABS: BEDSIDE GLUCOSE 198 MG/DL (80-115)
[2017-10-23 17:58] LABS: BEDSIDE GLUCOSE 284 MG/DL (80-115)
[2017-10-23 19:51] LABS: BEDSIDE GLUCOSE 278 MG/DL (80-115)
[2017-10-24] MEDS: tiZANidine 4 MG TAB PO ×4 (00:16→19:49)
[2017-10-24] MEDS: oxyCODONE 5MG TAB PO ×4 (00:17→19:50)
[2017-10-24] MEDS: hydrOXYzine 25 MG TAB PO (05:31)
[2017-10-24 06:28] LABS: BEDSIDE GLUCOSE 295 MG/DL (80-115)
[2017-10-24] MEDS: HumaLOG INSULIN (NovoLOG) PER UNIT SC ×4 (08:30→20:03)
[2017-10-24] MEDS: LACTULOSE 20 GM/30 ML SYRUP UD PO ×2 (08:31→19:57)
[2017-10-24] MEDS: rifAXIMin 550 MG TAB (XIFAXAN) PO ×2 (08:31→19:48)
[2017-10-24] MEDS: MAGNESIUM OXIDE 400 MG TAB (MAG-OX) PO (08:32)
[2017-10-24] MEDS: FUROSEMIDE 40 MG TAB PO (08:32)
[2017-10-24] MEDS: CETIRIZINE (ZyrTEC) 10 MG TAB PO (08:32)
[2017-10-24] MEDS: LEVOTHYROXINE 50MCG TABLET (0.05MG) PO (08:32)
[2017-10-24] MEDS: OMEPRAZOLE 20 MG CAP PO (08:32)
[2017-10-24] MEDS: DOCUSATE SODIUM 100 MG CAP PO ×2 (08:32→19:48)
[2017-10-24] MEDS: GABAPENTIN 300 MG CAP PO ×4 (08:32→19:49)
[2017-10-24] MEDS: METOPROLOL SUCC *XL* 25MG TAB (TopROL *XL*) PO ×2 (08:33→19:48)
[2017-10-24] MEDS: POTASSIUM CHLORIDE 10 MEQ SR TABLET PO (08:33)
[2017-10-24] MEDS: DULoxetine 30 MG CAP (CYMBALTA) PO ×2 (08:33→19:48)
[2017-10-24] MEDS: SPIRONOLACTONE 50 MG TAB PO ×2 (08:33→17:29)
[2017-10-24] MEDS: LEVEMIR (INSULIN DETEMIR) 1 UNITS/0.01ML SC ×2 (08:34→20:02)
[2017-10-24] MEDS: MUPIROCIN 2% OINT 22 GM TUBE TOP ×2 (08:34→19:56)
[2017-10-24] MEDS: ACETAMINOPHEN TAB 650MG DOSE (2X325MG) PO (08:37)
[2017-10-24 11:49] LABS: BEDSIDE GLUCOSE 190 MG/DL (80-115)
[2017-10-24 17:01] LABS: BEDSIDE GLUCOSE 200 MG/DL (80-115)
[2017-10-24 20:05] LABS: BEDSIDE GLUCOSE 214 MG/DL (80-115)
[2017-10-25] MEDS: hydrOXYzine 25 MG TAB PO ×2 (01:09→15:33)
[2017-10-25] MEDS: tiZANidine 4 MG TAB PO ×3 (02:13→18:22)
[2017-10-25] MEDS: oxyCODONE 5MG TAB PO ×3 (02:13→15:34)
[2017-10-25] MEDS: HumaLOG INSULIN (NovoLOG) PER UNIT SC ×4 (07:35→20:13)
[2017-10-25 07:36] LABS: BEDSIDE GLUCOSE 235 MG/DL (80-115)
[2017-10-25] MEDS: SPIRONOLACTONE 50 MG TAB PO ×2 (08:28→18:22)
[2017-10-25] MEDS: LACTULOSE 20 GM/30 ML SYRUP UD PO ×2 (08:28→20:46)
[2017-10-25] MEDS: GABAPENTIN 300 MG CAP PO ×4 (08:29→20:46)
[2017-10-25] MEDS: rifAXIMin 550 MG TAB (XIFAXAN) PO ×2 (08:29→20:46)
[2017-10-25] MEDS: METOPROLOL SUCC *XL* 25MG TAB (TopROL *XL*) PO ×2 (08:29→20:47)
[2017-10-25] MEDS: DULoxetine 30 MG CAP (CYMBALTA) PO ×2 (08:29→20:46)
[2017-10-25] MEDS: OMEPRAZOLE 20 MG CAP PO (08:29)
[2017-10-25] MEDS: POTASSIUM CHLORIDE 10 MEQ SR TABLET PO (08:29)
[2017-10-25] MEDS: FUROSEMIDE 40 MG TAB PO (08:29)
[2017-10-25] MEDS: LEVOTHYROXINE 50MCG TABLET (0.05MG) PO (08:29)
[2017-10-25] MEDS: DOCUSATE SODIUM 100 MG CAP PO ×2 (08:29→20:46)
[2017-10-25] MEDS: MAGNESIUM OXIDE 400 MG TAB (MAG-OX) PO (08:30)
[2017-10-25] MEDS: CETIRIZINE (ZyrTEC) 10 MG TAB PO (08:30)
[2017-10-25] MEDS: LEVEMIR (INSULIN DETEMIR) 1 UNITS/0.01ML SC ×2 (08:35→20:47)
[2017-10-25] MEDS: MUPIROCIN 2% OINT 22 GM TUBE TOP ×2 (08:36→20:14)
[2017-10-25 12:31] LABS: BEDSIDE GLUCOSE 170 MG/DL (80-115)
[2017-10-25 17:35] LABS: BEDSIDE GLUCOSE 253 MG/DL (80-115)
[2017-10-25 20:19] LABS: BEDSIDE GLUCOSE 176 MG/DL (80-115)
[2017-10-26] MEDS: hydrOXYzine 25 MG TAB PO ×3 (00:23→17:41)
[2017-10-26] MEDS: tiZANidine 4 MG TAB PO ×3 (00:23→20:40)
[2017-10-26] MEDS: oxyCODONE 5MG TAB PO ×3 (00:24→17:41)
[2017-10-26 06:57] LABS: BEDSIDE GLUCOSE 125 MG/DL (80-115)
[2017-10-26] MEDS: HumaLOG INSULIN (NovoLOG) PER UNIT SC ×4 (08:54→20:38)
[2017-10-26] MEDS: LEVOTHYROXINE 50MCG TABLET (0.05MG) PO ×2 (08:55→09:00)
[2017-10-26] MEDS: DOCUSATE SODIUM 100 MG CAP PO ×2 (08:56→20:37)
[2017-10-26] MEDS: OMEPRAZOLE 20 MG CAP PO (08:56)
[2017-10-26] MEDS: LACTULOSE 20 GM/30 ML SYRUP UD PO ×2 (08:56→20:36)
[2017-10-26] MEDS: FUROSEMIDE 40 MG TAB PO (08:57)
[2017-10-26] MEDS: rifAXIMin 550 MG TAB (XIFAXAN) PO ×2 (08:57→20:37)
[2017-10-26] MEDS: GABAPENTIN 300 MG CAP PO ×4 (08:57→20:37)
[2017-10-26] MEDS: MAGNESIUM OXIDE 400 MG TAB (MAG-OX) PO (08:57)
[2017-10-26] MEDS: POTASSIUM CHLORIDE 10 MEQ SR TABLET PO (08:58)
[2017-10-26] MEDS: METOPROLOL SUCC *XL* 25MG TAB (TopROL *XL*) PO ×2 (08:58→20:38)
[2017-10-26] MEDS: DULoxetine 30 MG CAP (CYMBALTA) PO ×2 (08:59→20:37)
[2017-10-26] MEDS: SPIRONOLACTONE 50 MG TAB PO ×2 (09:00→17:40)
[2017-10-26] MEDS: CETIRIZINE (ZyrTEC) 10 MG TAB PO (09:00)
[2017-10-26] MEDS: MUPIROCIN 2% OINT 22 GM TUBE TOP ×2 (09:04→20:38)
[2017-10-26] MEDS: LEVEMIR (INSULIN DETEMIR) 1 UNITS/0.01ML SC ×2 (09:05→20:37)
[2017-10-26 11:52] LABS: BEDSIDE GLUCOSE 207 MG/DL (80-115)
[2017-10-26 17:23] LABS: BEDSIDE GLUCOSE 203 MG/DL (80-115)
[2017-10-26 20:37] LABS: BEDSIDE GLUCOSE 166 MG/DL (80-115)
[2017-10-27] MEDS: hydrOXYzine 25 MG TAB PO ×3 (00:34→21:04)
[2017-10-27] MEDS: oxyCODONE 5MG TAB PO ×4 (00:35→21:05)
[2017-10-27 06:51] LABS: BEDSIDE GLUCOSE 168 MG/DL (80-115)
[2017-10-27] MEDS: HumaLOG INSULIN (NovoLOG) PER UNIT SC ×4 (07:30→21:00)
[2017-10-27] MEDS: CETIRIZINE (ZyrTEC) 10 MG TAB PO (08:05)
[2017-10-27] MEDS: tiZANidine 4 MG TAB PO ×3 (08:05→21:05)
[2017-10-27] MEDS: SPIRONOLACTONE 50 MG TAB PO ×2 (08:05→17:00)
[2017-10-27] MEDS: MAGNESIUM OXIDE 400 MG TAB (MAG-OX) PO (08:05)
[2017-10-27] MEDS: DOCUSATE SODIUM 100 MG CAP PO ×2 (08:05→21:08)
[2017-10-27] MEDS: rifAXIMin 550 MG TAB (XIFAXAN) PO ×2 (08:05→21:08)
[2017-10-27] MEDS: DULoxetine 30 MG CAP (CYMBALTA) PO ×2 (08:05→21:08)
[2017-10-27] MEDS: OMEPRAZOLE 20 MG CAP PO (08:05)
[2017-10-27] MEDS: GABAPENTIN 300 MG CAP PO ×4 (08:05→21:08)
[2017-10-27] MEDS: METOPROLOL SUCC *XL* 25MG TAB (TopROL *XL*) PO ×2 (08:07→21:08)
[2017-10-27] MEDS: LACTULOSE 20 GM/30 ML SYRUP UD PO ×2 (08:08→21:07)
[2017-10-27] MEDS: FUROSEMIDE 40 MG TAB PO (08:09)
[2017-10-27] MEDS: POTASSIUM CHLORIDE 10 MEQ SR TABLET PO (08:09)
[2017-10-27] MEDS: LEVEMIR (INSULIN DETEMIR) 1 UNITS/0.01ML SC ×2 (08:10→21:00)
[2017-10-27] MEDS: MUPIROCIN 2% OINT 22 GM TUBE TOP ×2 (08:10→21:00)
[2017-10-27 09:19] LABS: BEDSIDE GLUCOSE 252 MG/DL (80-115)
[2017-10-27 12:06] LABS: BEDSIDE GLUCOSE 155 MG/DL (80-115)
[2017-10-27 17:47] LABS: BEDSIDE GLUCOSE 284 MG/DL (80-115)
[2017-10-27 20:33] LABS: BEDSIDE GLUCOSE 202 MG/DL (80-115)
[2017-10-27] MEDS: EUCERIN 120GM CREAM TOP (21:09)
[2017-10-28 05:52] LABS: BEDSIDE GLUCOSE 188 MG/DL (80-115)
[2017-10-28] MEDS: LEVOTHYROXINE 50MCG TABLET (0.05MG) PO (06:04)
[2017-10-28] MEDS: GABAPENTIN 300 MG CAP PO ×4 (08:14→20:31)
[2017-10-28] MEDS: MAGNESIUM OXIDE 400 MG TAB (MAG-OX) PO (08:14)
[2017-10-28] MEDS: DULoxetine 30 MG CAP (CYMBALTA) PO ×2 (08:14→20:31)
[2017-10-28] MEDS: LACTULOSE 20 GM/30 ML SYRUP UD PO ×3 (08:15→20:33)
[2017-10-28] MEDS: POTASSIUM CHLORIDE 10 MEQ SR TABLET PO (08:15)
[2017-10-28] MEDS: SPIRONOLACTONE 50 MG TAB PO ×2 (08:15→17:15)
[2017-10-28] MEDS: rifAXIMin 550 MG TAB (XIFAXAN) PO ×2 (08:15→20:31)
[2017-10-28] MEDS: FUROSEMIDE 40 MG TAB PO (08:15)
[2017-10-28] MEDS: DOCUSATE SODIUM 100 MG CAP PO ×2 (08:15→20:31)
[2017-10-28] MEDS: OMEPRAZOLE 20 MG CAP PO (08:15)
[2017-10-28] MEDS: CETIRIZINE (ZyrTEC) 10 MG TAB PO (08:15)
[2017-10-28] MEDS: LEVEMIR (INSULIN DETEMIR) 1 UNITS/0.01ML SC ×2 (08:16→20:32)
[2017-10-28] MEDS: METOPROLOL SUCC *XL* 25MG TAB (TopROL *XL*) PO ×2 (08:16→20:31)
[2017-10-28] MEDS: HumaLOG INSULIN (NovoLOG) PER UNIT SC ×4 (08:17→20:32)
[2017-10-28] MEDS: MUPIROCIN 2% OINT 22 GM TUBE TOP ×2 (08:17→20:32)
[2017-10-28] MEDS: hydrOXYzine 25 MG TAB PO ×2 (11:21→18:58)
[2017-10-28] MEDS: tiZANidine 4 MG TAB PO ×2 (11:21→18:58)
[2017-10-28] MEDS: oxyCODONE 5MG TAB PO ×2 (11:21→18:58)
[2017-10-28 12:20] LABS: BEDSIDE GLUCOSE 163 MG/DL (80-115)
[2017-10-28 17:21] LABS: BEDSIDE GLUCOSE 190 MG/DL (80-115)
[2017-10-28 20:18] LABS: BEDSIDE GLUCOSE 211 MG/DL (80-115)
[2017-10-29] MEDS: hydrOXYzine 25 MG TAB PO ×3 (01:08→23:03)
[2017-10-29] MEDS: tiZANidine 4 MG TAB PO ×4 (01:08→23:03)
[2017-10-29] MEDS: oxyCODONE 5MG TAB PO ×4 (01:09→23:03)
[2017-10-29] MEDS: LEVOTHYROXINE 50MCG TABLET (0.05MG) PO (06:18)
[2017-10-29 06:30] LABS: BEDSIDE GLUCOSE 219 MG/DL (80-115)
[2017-10-29] MEDS: HumaLOG INSULIN (NovoLOG) PER UNIT SC ×4 (08:32→20:54)
[2017-10-29] MEDS: LACTULOSE 20 GM/30 ML SYRUP UD PO ×2 (08:32→20:54)
[2017-10-29] MEDS: LEVEMIR (INSULIN DETEMIR) 1 UNITS/0.01ML SC ×2 (08:33→20:53)
[2017-10-29] MEDS: OMEPRAZOLE 20 MG CAP PO (08:34)
[2017-10-29] MEDS: DULoxetine 30 MG CAP (CYMBALTA) PO ×2 (08:34→20:53)
[2017-10-29] MEDS: DOCUSATE SODIUM 100 MG CAP PO ×2 (08:34→20:53)
[2017-10-29] MEDS: CETIRIZINE (ZyrTEC) 10 MG TAB PO (08:34)
[2017-10-29] MEDS: GABAPENTIN 300 MG CAP PO ×4 (08:34→20:53)
[2017-10-29] MEDS: MAGNESIUM OXIDE 400 MG TAB (MAG-OX) PO (08:34)
[2017-10-29] MEDS: SPIRONOLACTONE 50 MG TAB PO ×2 (08:34→17:27)
[2017-10-29] MEDS: FUROSEMIDE 40 MG TAB PO (08:34)
[2017-10-29] MEDS: rifAXIMin 550 MG TAB (XIFAXAN) PO ×2 (08:34→20:52)
[2017-10-29] MEDS: POTASSIUM CHLORIDE 10 MEQ SR TABLET PO (08:35)
[2017-10-29] MEDS: METOPROLOL SUCC *XL* 25MG TAB (TopROL *XL*) PO ×2 (08:35→20:54)
[2017-10-29] MEDS: MUPIROCIN 2% OINT 22 GM TUBE TOP ×2 (08:39→20:55)
[2017-10-29 12:30] LABS: BEDSIDE GLUCOSE 149 MG/DL (80-115)
[2017-10-29 17:17] LABS: BEDSIDE GLUCOSE 260 MG/DL (80-115)
[2017-10-29 20:35] LABS: BEDSIDE GLUCOSE 197 MG/DL (80-115)
[2017-10-30] MEDS: LEVOTHYROXINE 50MCG TABLET (0.05MG) PO (06:13)
[2017-10-30 07:31] LABS: BEDSIDE GLUCOSE 210 MG/DL (80-115)
[2017-10-30] MEDS: tiZANidine 4 MG TAB PO ×2 (09:11→18:20)
[2017-10-30] MEDS: oxyCODONE 5MG TAB PO ×2 (09:11→18:21)
[2017-10-30] MEDS: OMEPRAZOLE 20 MG CAP PO (09:11)
[2017-10-30] MEDS: HumaLOG INSULIN (NovoLOG) PER UNIT SC ×4 (09:11→21:00)
[2017-10-30] MEDS: CETIRIZINE (ZyrTEC) 10 MG TAB PO (09:12)
[2017-10-30] MEDS: DULoxetine 30 MG CAP (CYMBALTA) PO ×2 (09:12→21:29)
[2017-10-30] MEDS: FUROSEMIDE 40 MG TAB PO (09:12)
[2017-10-30] MEDS: hydrOXYzine 25 MG TAB PO ×2 (09:12→18:19)
[2017-10-30] MEDS: MAGNESIUM OXIDE 400 MG TAB (MAG-OX) PO (09:12)
[2017-10-30] MEDS: POTASSIUM CHLORIDE 10 MEQ SR TABLET PO (09:13)
[2017-10-30] MEDS: METOPROLOL SUCC *XL* 25MG TAB (TopROL *XL*) PO ×2 (09:13→21:30)
[2017-10-30] MEDS: GABAPENTIN 300 MG CAP PO ×4 (09:14→21:29)
[2017-10-30] MEDS: LACTULOSE 20 GM/30 ML SYRUP UD PO ×2 (09:14→21:30)
[2017-10-30] MEDS: LEVEMIR (INSULIN DETEMIR) 1 UNITS/0.01ML SC ×2 (09:14→21:31)
[2017-10-30] MEDS: SPIRONOLACTONE 50 MG TAB PO ×2 (09:14→18:19)
[2017-10-30] MEDS: DOCUSATE SODIUM 100 MG CAP PO ×2 (09:14→21:29)
[2017-10-30] MEDS: rifAXIMin 550 MG TAB (XIFAXAN) PO ×2 (09:14→21:30)
[2017-10-30] MEDS: MUPIROCIN 2% OINT 22 GM TUBE TOP ×2 (09:15→21:31)
[2017-10-30 12:18] LABS: BEDSIDE GLUCOSE 131 MG/DL (80-115)
[2017-10-30 16:56] LABS: BEDSIDE GLUCOSE 118 MG/DL (80-115)
[2017-10-30 20:15] LABS: BEDSIDE GLUCOSE 227 MG/DL (80-115)
[2017-10-30] MEDS: ACETAMINOPHEN TAB 650MG DOSE (2X325MG) PO (21:30)
[2017-10-31] MEDS: tiZANidine 4 MG TAB PO ×4 (00:43→21:38)
[2017-10-31] MEDS: oxyCODONE 5MG TAB PO ×4 (00:44→21:38)
[2017-10-31] MEDS: hydrOXYzine 25 MG TAB PO ×3 (00:44→14:30)
[2017-10-31] MEDS: LEVOTHYROXINE 50MCG TABLET (0.05MG) PO (05:45)
[2017-10-31 06:48] LABS: BEDSIDE GLUCOSE 287 MG/DL (80-115)
[2017-10-31] MEDS: LEVEMIR (INSULIN DETEMIR) 1 UNITS/0.01ML SC ×2 (09:00→21:40)
[2017-10-31] MEDS: MUPIROCIN 2% OINT 22 GM TUBE TOP ×2 (09:00→21:41)
[2017-10-31] MEDS: rifAXIMin 550 MG TAB (XIFAXAN) PO ×2 (09:17→21:38)
[2017-10-31] MEDS: DULoxetine 30 MG CAP (CYMBALTA) PO ×2 (09:17→21:38)
[2017-10-31] MEDS: GABAPENTIN 300 MG CAP PO ×4 (09:17→21:38)
[2017-10-31] MEDS: OMEPRAZOLE 20 MG CAP PO (09:17)
[2017-10-31] MEDS: MAGNESIUM OXIDE 400 MG TAB (MAG-OX) PO (09:17)
[2017-10-31] MEDS: CETIRIZINE (ZyrTEC) 10 MG TAB PO (09:17)
[2017-10-31] MEDS: DOCUSATE SODIUM 100 MG CAP PO ×2 (09:18→21:38)
[2017-10-31] MEDS: POTASSIUM CHLORIDE 10 MEQ SR TABLET PO (09:19)
[2017-10-31] MEDS: FUROSEMIDE 40 MG TAB PO (09:20)
[2017-10-31] MEDS: METOPROLOL SUCC *XL* 25MG TAB (TopROL *XL*) PO ×2 (09:20→21:38)
[2017-10-31] MEDS: SPIRONOLACTONE 50 MG TAB PO ×2 (09:20→17:24)
[2017-10-31] MEDS: HumaLOG INSULIN (NovoLOG) PER UNIT SC ×4 (09:22→21:00)
[2017-10-31] MEDS: LACTULOSE 20 GM/30 ML SYRUP UD PO ×2 (09:23→21:38)
[2017-10-31 12:43] LABS: BEDSIDE GLUCOSE 138 MG/DL (80-115)
[2017-10-31 17:12] LABS: BEDSIDE GLUCOSE 202 MG/DL (80-115)
[2017-10-31 20:09] LABS: BEDSIDE GLUCOSE 207 MG/DL (80-115)
[2017-11-01] MEDS: tiZANidine 4 MG TAB PO ×2 (05:49→21:42)
[2017-11-01] MEDS: LEVOTHYROXINE 50MCG TABLET (0.05MG) PO (05:49)
[2017-11-01] MEDS: hydrOXYzine 25 MG TAB PO ×3 (05:49→20:28)
[2017-11-01] MEDS: oxyCODONE 5MG TAB PO ×3 (05:49→20:29)
[2017-11-01 06:54] LABS: BEDSIDE GLUCOSE 295 MG/DL (80-115)
[2017-11-01] MEDS: LEVEMIR (INSULIN DETEMIR) 1 UNITS/0.01ML SC ×2 (08:56→20:31)
[2017-11-01] MEDS: LACTULOSE 20 GM/30 ML SYRUP UD PO ×2 (08:56→20:27)
[2017-11-01] MEDS: HumaLOG INSULIN (NovoLOG) PER UNIT SC ×5 (08:56→20:27)
[2017-11-01] MEDS: OMEPRAZOLE 20 MG CAP PO (08:57)
[2017-11-01] MEDS: MAGNESIUM OXIDE 400 MG TAB (MAG-OX) PO (08:57)
[2017-11-01] MEDS: POTASSIUM CHLORIDE 10 MEQ SR TABLET PO (08:57)
[2017-11-01] MEDS: DULoxetine 30 MG CAP (CYMBALTA) PO ×2 (08:57→20:29)
[2017-11-01] MEDS: GABAPENTIN 300 MG CAP PO ×4 (08:58→20:29)
[2017-11-01] MEDS: FUROSEMIDE 40 MG TAB PO (08:58)
[2017-11-01] MEDS: CETIRIZINE (ZyrTEC) 10 MG TAB PO (08:58)
[2017-11-01] MEDS: SPIRONOLACTONE 50 MG TAB PO ×2 (08:59→17:11)
[2017-11-01] MEDS: DOCUSATE SODIUM 100 MG CAP PO ×2 (08:59→20:29)
[2017-11-01] MEDS: METOPROLOL SUCC *XL* 25MG TAB (TopROL *XL*) PO ×2 (08:59→20:29)
[2017-11-01] MEDS: MUPIROCIN 2% OINT 22 GM TUBE TOP ×2 (09:00→20:31)
[2017-11-01] MEDS: rifAXIMin 550 MG TAB (XIFAXAN) PO ×2 (09:05→20:28)
[2017-11-01 11:45] LABS: BEDSIDE GLUCOSE 100 MG/DL (80-115)
[2017-11-01 17:28] LABS: BEDSIDE GLUCOSE 173 MG/DL (80-115)
[2017-11-01 20:21] LABS: BEDSIDE GLUCOSE 153 MG/DL (80-115)
[2017-11-02] MEDS: LEVOTHYROXINE 50MCG TABLET (0.05MG) PO (05:53)
[2017-11-02] MEDS: hydrOXYzine 25 MG TAB PO ×2 (05:53→20:48)
[2017-11-02] MEDS: tiZANidine 4 MG TAB PO ×3 (05:53→20:48)
[2017-11-02] MEDS: oxyCODONE 5MG TAB PO ×3 (05:53→20:48)
[2017-11-02 05:56] LABS: BEDSIDE GLUCOSE 194 MG/DL (80-115)
[2017-11-02] MEDS: DOCUSATE SODIUM 100 MG CAP PO ×2 (08:28→20:51)
[2017-11-02] MEDS: rifAXIMin 550 MG TAB (XIFAXAN) PO ×2 (08:28→20:49)
[2017-11-02] MEDS: DULoxetine 30 MG CAP (CYMBALTA) PO ×2 (08:28→20:48)
[2017-11-02] MEDS: MAGNESIUM OXIDE 400 MG TAB (MAG-OX) PO (08:28)
[2017-11-02] MEDS: POTASSIUM CHLORIDE 10 MEQ SR TABLET PO (08:28)
[2017-11-02] MEDS: LACTULOSE 20 GM/30 ML SYRUP UD PO ×2 (08:28→20:51)
[2017-11-02] MEDS: GABAPENTIN 300 MG CAP PO ×4 (08:28→20:48)
[2017-11-02] MEDS: OMEPRAZOLE 20 MG CAP PO (08:28)
[2017-11-02] MEDS: FUROSEMIDE 40 MG TAB PO (08:29)
[2017-11-02] MEDS: METOPROLOL SUCC *XL* 25MG TAB (TopROL *XL*) PO ×2 (08:29→20:49)
[2017-11-02] MEDS: CETIRIZINE (ZyrTEC) 10 MG TAB PO (08:29)
[2017-11-02] MEDS: SPIRONOLACTONE 50 MG TAB PO ×2 (08:29→16:41)
[2017-11-02] MEDS: HumaLOG INSULIN (NovoLOG) PER UNIT SC ×4 (08:31→20:23)
[2017-11-02] MEDS: LEVEMIR (INSULIN DETEMIR) 1 UNITS/0.01ML SC ×2 (08:31→20:50)
[2017-11-02] MEDS: MUPIROCIN 2% OINT 22 GM TUBE TOP ×2 (08:32→20:50)
[2017-11-02 12:20] LABS: BEDSIDE GLUCOSE 218 MG/DL (80-115)
[2017-11-02 16:17] LABS: BEDSIDE GLUCOSE 144 MG/DL (80-115)
[2017-11-02] MEDS: ONDANSETRON 4 MG TAB (S0181) PO (16:41)
[2017-11-02 20:21] LABS: BEDSIDE GLUCOSE 247 MG/DL (80-115)
[2017-11-03] MEDS: tiZANidine 4 MG TAB PO ×3 (04:40→20:12)
[2017-11-03] MEDS: hydrOXYzine 25 MG TAB PO ×3 (04:40→20:12)
[2017-11-03] MEDS: oxyCODONE 5MG TAB PO ×3 (04:41→20:12)
[2017-11-03] MEDS: LEVOTHYROXINE 50MCG TABLET (0.05MG) PO (05:57)
[2017-11-03] MEDS: HumaLOG INSULIN (NovoLOG) PER UNIT SC ×5 (08:12→20:13)
[2017-11-03] MEDS: MAGNESIUM OXIDE 400 MG TAB (MAG-OX) PO (08:13)
[2017-11-03] MEDS: LEVEMIR (INSULIN DETEMIR) 1 UNITS/0.01ML SC ×2 (08:13→20:13)
[2017-11-03] MEDS: DOCUSATE SODIUM 100 MG CAP PO ×2 (08:13→20:12)
[2017-11-03] MEDS: DULoxetine 30 MG CAP (CYMBALTA) PO ×2 (08:13→20:12)
[2017-11-03] MEDS: OMEPRAZOLE 20 MG CAP PO (08:13)
[2017-11-03] MEDS: rifAXIMin 550 MG TAB (XIFAXAN) PO ×2 (08:13→20:11)
[2017-11-03] MEDS: GABAPENTIN 300 MG CAP PO ×4 (08:13→20:12)
[2017-11-03] MEDS: CETIRIZINE (ZyrTEC) 10 MG TAB PO (08:14)
[2017-11-03] MEDS: SPIRONOLACTONE 50 MG TAB PO ×2 (08:14→17:19)
[2017-11-03] MEDS: POTASSIUM CHLORIDE 10 MEQ SR TABLET PO (08:14)
[2017-11-03] MEDS: FUROSEMIDE 40 MG TAB PO (08:14)
[2017-11-03] MEDS: LACTULOSE 20 GM/30 ML SYRUP UD PO ×3 (08:14→20:17)
[2017-11-03] MEDS: METOPROLOL SUCC *XL* 25MG TAB (TopROL *XL*) PO ×2 (08:17→20:11)
[2017-11-03] MEDS: MUPIROCIN 2% OINT 22 GM TUBE TOP ×2 (08:20→20:14)
[2017-11-03 08:41] LABS: BEDSIDE GLUCOSE 163 MG/DL (80-115)
[2017-11-03 12:25] LABS: BEDSIDE GLUCOSE 154 MG/DL (80-115)
[2017-11-03 17:20] LABS: BEDSIDE GLUCOSE 210 MG/DL (80-115)
[2017-11-03 20:33] LABS: BEDSIDE GLUCOSE 127 MG/DL (80-115)
[2017-11-04] MEDS: oxyCODONE 5MG TAB PO ×4 (02:42→22:07)
[2017-11-04] MEDS: tiZANidine 4 MG TAB PO ×4 (02:43→22:06)
[2017-11-04] MEDS: LEVOTHYROXINE 50MCG TABLET (0.05MG) PO (05:35)
[2017-11-04 06:48] LABS: BEDSIDE GLUCOSE 123 MG/DL (80-115)
[2017-11-04] MEDS: ONDANSETRON 4 MG TAB (S0181) PO (06:49)
[2017-11-04] MEDS: ACETAMINOPHEN TAB 650MG DOSE (2X325MG) PO (06:49)
[2017-11-04] MEDS: HumaLOG INSULIN (NovoLOG) PER UNIT SC ×4 (08:21→20:26)
[2017-11-04] MEDS: GABAPENTIN 300 MG CAP PO ×4 (08:22→20:22)
[2017-11-04] MEDS: SPIRONOLACTONE 50 MG TAB PO ×2 (08:22→17:18)
[2017-11-04] MEDS: CETIRIZINE (ZyrTEC) 10 MG TAB PO (08:22)
[2017-11-04] MEDS: LEVEMIR (INSULIN DETEMIR) 1 UNITS/0.01ML SC ×2 (08:22→20:26)
[2017-11-04] MEDS: MAGNESIUM OXIDE 400 MG TAB (MAG-OX) PO (08:22)
[2017-11-04] MEDS: rifAXIMin 550 MG TAB (XIFAXAN) PO ×2 (08:22→20:22)
[2017-11-04] MEDS: OMEPRAZOLE 20 MG CAP PO (08:22)
[2017-11-04] MEDS: DULoxetine 30 MG CAP (CYMBALTA) PO ×2 (08:22→20:22)
[2017-11-04] MEDS: LACTULOSE 20 GM/30 ML SYRUP UD PO ×2 (08:22→20:22)
[2017-11-04] MEDS: FUROSEMIDE 40 MG TAB PO (08:22)
[2017-11-04] MEDS: DOCUSATE SODIUM 100 MG CAP PO ×2 (08:23→20:22)
[2017-11-04] MEDS: POTASSIUM CHLORIDE 10 MEQ SR TABLET PO (08:23)
[2017-11-04] MEDS: METOPROLOL SUCC *XL* 25MG TAB (TopROL *XL*) PO ×2 (08:25→20:25)
[2017-11-04] MEDS: MUPIROCIN 2% OINT 22 GM TUBE TOP ×2 (08:33→20:26)
[2017-11-04] MEDS: hydrOXYzine 25 MG TAB PO ×2 (09:54→22:06)
[2017-11-04 11:58] LABS: BEDSIDE GLUCOSE 193 MG/DL (80-115)
[2017-11-04 17:21] LABS: BEDSIDE GLUCOSE 214 MG/DL (80-115)
[2017-11-04 20:02] LABS: BEDSIDE GLUCOSE 190 MG/DL (80-115)
[2017-11-05] MEDS: tiZANidine 4 MG TAB PO ×3 (05:28→20:04)
[2017-11-05] MEDS: hydrOXYzine 25 MG TAB PO ×2 (05:28→12:53)
[2017-11-05] MEDS: LEVOTHYROXINE 50MCG TABLET (0.05MG) PO (05:30)
[2017-11-05] MEDS: oxyCODONE 5MG TAB PO ×3 (05:30→20:06)
[2017-11-05 06:44] LABS: BEDSIDE GLUCOSE 154 MG/DL (80-115)
[2017-11-05] MEDS: DOCUSATE SODIUM 100 MG CAP PO ×2 (08:49→20:04)
[2017-11-05] MEDS: LACTULOSE 20 GM/30 ML SYRUP UD PO ×2 (08:49→20:04)
[2017-11-05] MEDS: MAGNESIUM OXIDE 400 MG TAB (MAG-OX) PO (08:49)
[2017-11-05] MEDS: rifAXIMin 550 MG TAB (XIFAXAN) PO ×2 (08:49→20:04)
[2017-11-05] MEDS: DULoxetine 30 MG CAP (CYMBALTA) PO ×2 (08:49→20:04)
[2017-11-05] MEDS: FUROSEMIDE 40 MG TAB PO (08:49)
[2017-11-05] MEDS: POTASSIUM CHLORIDE 10 MEQ SR TABLET PO (08:49)
[2017-11-05] MEDS: OMEPRAZOLE 20 MG CAP PO (08:49)
[2017-11-05] MEDS: METOPROLOL SUCC *XL* 25MG TAB (TopROL *XL*) PO ×2 (08:50→20:04)
[2017-11-05] MEDS: GABAPENTIN 300 MG CAP PO ×4 (08:50→20:04)
[2017-11-05] MEDS: SPIRONOLACTONE 50 MG TAB PO ×2 (08:50→17:33)
[2017-11-05] MEDS: CETIRIZINE (ZyrTEC) 10 MG TAB PO (08:50)
[2017-11-05] MEDS: HumaLOG INSULIN (NovoLOG) PER UNIT SC ×4 (08:51→20:06)
[2017-11-05] MEDS: MUPIROCIN 2% OINT 22 GM TUBE TOP ×2 (08:52→20:07)
[2017-11-05] MEDS: LEVEMIR (INSULIN DETEMIR) 1 UNITS/0.01ML SC ×2 (08:53→20:06)
[2017-11-05 12:24] LABS: BEDSIDE GLUCOSE 151 MG/DL (80-115)
[2017-11-05 17:05] LABS: BEDSIDE GLUCOSE 168 MG/DL (80-115)
[2017-11-05 20:01] LABS: BEDSIDE GLUCOSE 178 MG/DL (80-115)
[2017-11-06] MEDS: tiZANidine 4 MG TAB PO ×3 (03:48→20:06)
[2017-11-06] MEDS: hydrOXYzine 25 MG TAB PO ×3 (03:48→20:06)
[2017-11-06] MEDS: oxyCODONE 5MG TAB PO ×3 (03:49→20:09)
[2017-11-06] MEDS: LEVOTHYROXINE 50MCG TABLET (0.05MG) PO (05:40)
[2017-11-06 06:50] LABS: BEDSIDE GLUCOSE 163 MG/DL (80-115)
[2017-11-06] MEDS: METOPROLOL SUCC *XL* 25MG TAB (TopROL *XL*) PO ×2 (08:22→20:07)
[2017-11-06] MEDS: FUROSEMIDE 40 MG TAB PO (08:37)
[2017-11-06] MEDS: LACTULOSE 20 GM/30 ML SYRUP UD PO ×2 (08:37→20:06)
[2017-11-06] MEDS: rifAXIMin 550 MG TAB (XIFAXAN) PO ×2 (08:37→20:06)
[2017-11-06] MEDS: POTASSIUM CHLORIDE 10 MEQ SR TABLET PO (08:38)
[2017-11-06] MEDS: SPIRONOLACTONE 50 MG TAB PO ×2 (08:38→17:07)
[2017-11-06] MEDS: DULoxetine 30 MG CAP (CYMBALTA) PO ×2 (08:38→20:06)
[2017-11-06] MEDS: OMEPRAZOLE 20 MG CAP PO (08:38)
[2017-11-06] MEDS: MAGNESIUM OXIDE 400 MG TAB (MAG-OX) PO (08:38)
[2017-11-06] MEDS: ONDANSETRON 4 MG TAB (S0181) PO (08:38)
[2017-11-06] MEDS: GABAPENTIN 300 MG CAP PO ×4 (08:38→20:06)
[2017-11-06] MEDS: DOCUSATE SODIUM 100 MG CAP PO ×2 (08:38→20:06)
[2017-11-06] MEDS: CETIRIZINE (ZyrTEC) 10 MG TAB PO (08:38)
[2017-11-06] MEDS: HumaLOG INSULIN (NovoLOG) PER UNIT SC ×4 (08:39→19:54)
[2017-11-06] MEDS: LEVEMIR (INSULIN DETEMIR) 1 UNITS/0.01ML SC ×2 (08:40→20:09)
[2017-11-06] MEDS: MUPIROCIN 2% OINT 22 GM TUBE TOP ×2 (08:41→20:09)
[2017-11-06 11:58] LABS: BEDSIDE GLUCOSE 131 MG/DL (80-115)
[2017-11-06 17:07] LABS: BEDSIDE GLUCOSE 186 MG/DL (80-115)
[2017-11-06 19:59] LABS: BEDSIDE GLUCOSE 147 MG/DL (80-115)
[2017-11-07] MEDS: hydrOXYzine 25 MG TAB PO ×3 (03:30→21:24)
[2017-11-07] MEDS: tiZANidine 4 MG TAB PO ×4 (03:30→21:22)
[2017-11-07] MEDS: oxyCODONE 5MG TAB PO ×4 (03:31→21:24)
[2017-11-07] MEDS: LEVOTHYROXINE 50MCG TABLET (0.05MG) PO (05:35)
[2017-11-07 06:37] LABS: BEDSIDE GLUCOSE 100 MG/DL (80-115)
[2017-11-07] MEDS: HumaLOG INSULIN (NovoLOG) PER UNIT SC ×4 (07:01→20:51)
[2017-11-07] MEDS: LACTULOSE 20 GM/30 ML SYRUP UD PO ×2 (08:16→21:22)
[2017-11-07] MEDS: DULoxetine 30 MG CAP (CYMBALTA) PO ×2 (08:16→21:24)
[2017-11-07] MEDS: GABAPENTIN 300 MG CAP PO ×4 (08:17→21:22)
[2017-11-07] MEDS: SPIRONOLACTONE 50 MG TAB PO ×2 (08:17→17:27)
[2017-11-07] MEDS: rifAXIMin 550 MG TAB (XIFAXAN) PO ×2 (08:17→21:24)
[2017-11-07] MEDS: CETIRIZINE (ZyrTEC) 10 MG TAB PO (08:17)
[2017-11-07] MEDS: POTASSIUM CHLORIDE 10 MEQ SR TABLET PO (08:17)
[2017-11-07] MEDS: DOCUSATE SODIUM 100 MG CAP PO ×2 (08:17→21:24)
[2017-11-07] MEDS: OMEPRAZOLE 20 MG CAP PO (08:17)
[2017-11-07] MEDS: MAGNESIUM OXIDE 400 MG TAB (MAG-OX) PO (08:17)
[2017-11-07] MEDS: FUROSEMIDE 40 MG TAB PO (08:18)
[2017-11-07] MEDS: METOPROLOL SUCC *XL* 25MG TAB (TopROL *XL*) PO ×2 (08:18→21:24)
[2017-11-07] MEDS: MUPIROCIN 2% OINT 22 GM TUBE TOP ×2 (08:19→21:00)
[2017-11-07] MEDS: LEVEMIR (INSULIN DETEMIR) 1 UNITS/0.01ML SC ×2 (08:19→21:00)
[2017-11-07 12:05] LABS: BEDSIDE GLUCOSE 181 MG/DL (80-115)
[2017-11-07 17:30] LABS: BEDSIDE GLUCOSE 143 MG/DL (80-115)
[2017-11-07 20:29] LABS: BEDSIDE GLUCOSE 158 MG/DL (80-115)
[2017-11-08] MEDS: tiZANidine 4 MG TAB PO ×3 (04:41→20:46)
[2017-11-08] MEDS: hydrOXYzine 25 MG TAB PO ×3 (04:41→20:45)
[2017-11-08] MEDS: oxyCODONE 5MG TAB PO ×3 (04:42→20:46)
[2017-11-08] MEDS: LEVOTHYROXINE 50MCG TABLET (0.05MG) PO (06:14)
[2017-11-08 06:23] LABS: BEDSIDE GLUCOSE 86 MG/DL (80-115)
[2017-11-08] MEDS: HumaLOG INSULIN (NovoLOG) PER UNIT SC ×4 (07:25→20:45)
[2017-11-08] MEDS: LACTULOSE 20 GM/30 ML SYRUP UD PO ×3 (07:36→21:00)
[2017-11-08] MEDS: SPIRONOLACTONE 50 MG TAB PO ×2 (07:37→17:09)
[2017-11-08] MEDS: METOPROLOL SUCC *XL* 25MG TAB (TopROL *XL*) PO ×2 (07:37→20:46)
[2017-11-08] MEDS: rifAXIMin 550 MG TAB (XIFAXAN) PO ×2 (07:37→20:45)
[2017-11-08] MEDS: DOCUSATE SODIUM 100 MG CAP PO ×2 (07:37→20:45)
[2017-11-08] MEDS: OMEPRAZOLE 20 MG CAP PO (07:37)
[2017-11-08] MEDS: CETIRIZINE (ZyrTEC) 10 MG TAB PO (07:37)
[2017-11-08] MEDS: DULoxetine 30 MG CAP (CYMBALTA) PO ×2 (07:37→20:45)
[2017-11-08] MEDS: MAGNESIUM OXIDE 400 MG TAB (MAG-OX) PO (07:38)
[2017-11-08] MEDS: POTASSIUM CHLORIDE 10 MEQ SR TABLET PO (07:38)
[2017-11-08] MEDS: LEVEMIR (INSULIN DETEMIR) 1 UNITS/0.01ML SC ×2 (07:38→20:45)
[2017-11-08] MEDS: GABAPENTIN 300 MG CAP PO ×4 (07:38→20:47)
[2017-11-08] MEDS: FUROSEMIDE 40 MG TAB PO (07:38)
[2017-11-08] MEDS: MUPIROCIN 2% OINT 22 GM TUBE TOP ×2 (07:39→21:12)
[2017-11-08 11:26] LABS: BEDSIDE GLUCOSE 163 MG/DL (80-115)
[2017-11-08 16:50] LABS: BEDSIDE GLUCOSE 178 MG/DL (80-115)
[2017-11-08 20:26] LABS: BEDSIDE GLUCOSE 189 MG/DL (80-115)
[2017-11-09] MEDS: tiZANidine 4 MG TAB PO ×3 (04:01→18:03)
[2017-11-09] MEDS: hydrOXYzine 25 MG TAB PO ×3 (04:01→18:03)
[2017-11-09] MEDS: oxyCODONE 5MG TAB PO ×3 (04:02→18:06)
[2017-11-09] MEDS: LEVOTHYROXINE 50MCG TABLET (0.05MG) PO (06:25)
[2017-11-09 06:57] LABS: BEDSIDE GLUCOSE 120 MG/DL (80-115)
[2017-11-09] MEDS: HumaLOG INSULIN (NovoLOG) PER UNIT SC ×4 (07:30→20:34)
[2017-11-09] MEDS: LACTULOSE 20 GM/30 ML SYRUP UD PO ×2 (09:00→21:16)
[2017-11-09] MEDS: DOCUSATE SODIUM 100 MG CAP PO ×2 (09:00→21:17)
[2017-11-09] MEDS: MAGNESIUM OXIDE 400 MG TAB (MAG-OX) PO (09:09)
[2017-11-09] MEDS: SPIRONOLACTONE 50 MG TAB PO ×2 (09:09→18:03)
[2017-11-09] MEDS: CETIRIZINE (ZyrTEC) 10 MG TAB PO (09:09)
[2017-11-09] MEDS: GABAPENTIN 300 MG CAP PO ×4 (09:09→21:16)
[2017-11-09] MEDS: METOPROLOL SUCC *XL* 25MG TAB (TopROL *XL*) PO ×2 (09:09→21:17)
[2017-11-09] MEDS: OMEPRAZOLE 20 MG CAP PO (09:10)
[2017-11-09] MEDS: DULoxetine 30 MG CAP (CYMBALTA) PO ×3 (09:10→21:20)
[2017-11-09] MEDS: rifAXIMin 550 MG TAB (XIFAXAN) PO ×2 (09:10→21:16)
[2017-11-09] MEDS: FUROSEMIDE 40 MG TAB PO (09:10)
[2017-11-09] MEDS: POTASSIUM CHLORIDE 10 MEQ SR TABLET PO (09:10)
[2017-11-09] MEDS: MUPIROCIN 2% OINT 22 GM TUBE TOP ×2 (09:11→21:17)
[2017-11-09] MEDS: LEVEMIR (INSULIN DETEMIR) 1 UNITS/0.01ML SC ×2 (09:11→21:17)
[2017-11-09 12:03] LABS: BEDSIDE GLUCOSE 162 MG/DL (80-115)
[2017-11-09 17:31] LABS: BEDSIDE GLUCOSE 148 MG/DL (80-115)
[2017-11-09 20:41] LABS: BEDSIDE GLUCOSE 244 MG/DL (80-115)
[2017-11-10] MEDS: oxyCODONE 5MG TAB PO ×4 (01:19→23:41)
[2017-11-10] MEDS: tiZANidine 4 MG TAB PO ×4 (01:19→23:40)
[2017-11-10] MEDS: hydrOXYzine 25 MG TAB PO ×4 (01:19→23:40)
[2017-11-10] MEDS: LEVOTHYROXINE 50MCG TABLET (0.05MG) PO (05:34)
[2017-11-10 07:19] LABS: BEDSIDE GLUCOSE 65 MG/DL (80-115)
[2017-11-10 07:19] LABS: BEDSIDE GLUCOSE 109 MG/DL (80-115)
[2017-11-10] MEDS: HumaLOG INSULIN (NovoLOG) PER UNIT SC ×4 (07:37→21:16)
[2017-11-10] MEDS: rifAXIMin 550 MG TAB (XIFAXAN) PO ×2 (08:22→21:25)
[2017-11-10] MEDS: DULoxetine 30 MG CAP (CYMBALTA) PO ×3 (08:22→21:25)
[2017-11-10] MEDS: LACTULOSE 20 GM/30 ML SYRUP UD PO ×2 (08:22→21:25)
[2017-11-10] MEDS: GABAPENTIN 300 MG CAP PO ×4 (08:25→21:25)
[2017-11-10] MEDS: SPIRONOLACTONE 50 MG TAB PO ×2 (08:25→17:17)
[2017-11-10] MEDS: MAGNESIUM OXIDE 400 MG TAB (MAG-OX) PO (08:25)
[2017-11-10] MEDS: FUROSEMIDE 40 MG TAB PO (08:25)
[2017-11-10] MEDS: OMEPRAZOLE 20 MG CAP PO (08:25)
[2017-11-10] MEDS: DOCUSATE SODIUM 100 MG CAP PO ×2 (08:26→21:25)
[2017-11-10] MEDS: CETIRIZINE (ZyrTEC) 10 MG TAB PO (08:26)
[2017-11-10] MEDS: METOPROLOL SUCC *XL* 25MG TAB (TopROL *XL*) PO ×2 (08:26→21:27)
[2017-11-10] MEDS: POTASSIUM CHLORIDE 10 MEQ SR TABLET PO (08:26)
[2017-11-10] MEDS: MUPIROCIN 2% OINT 22 GM TUBE TOP ×2 (08:27→21:25)
[2017-11-10] MEDS: LEVEMIR (INSULIN DETEMIR) 1 UNITS/0.01ML SC ×2 (09:00→21:27)
[2017-11-10 11:14] LABS: BASO % 0.6 % (0.0-1.0); EOS # 0.1 10^3/uL (0.0-0.50); EOS % 2.9 % (0.0-3.0); HEMATOCRIT 42.2 % (36.0-47.0); IMMATURE GRANULOCYTE % 0.2 % (0-3.0); LYMPH # 1.5 10^3/uL (1.5-4.5); LYMPH % 31.9 % (24.0-44.0); MEAN CORPUSCULAR HEMOGLOBIN 28.7 pg (27.0-33.0); MEAN CORPUSCULAR HGB CONC 33.2 g/dl (32.0-36.5); MEAN CORPUSCULAR VOLUME 86.7 fl (80.0-96.0); MONO # 0.3 10^3/uL (0.0-0.8); MONO % 6.5 % (0.0-5.0); NEUTROPHILS # 2.8 10^3/uL (1.8-7.7); NEUTROPHILS % 57.9 % (36.0-66.0); PLATELET COUNT, AUTOMATED 186 10^3/uL (150-450); RED BLOOD COUNT 4.87 10^6/uL (4.00-5.40); WHITE BLOOD COUNT 4.8 10^3/uL (4.0-10.0)
[2017-11-10 11:28] LABS: AMMONIA 63 uMOL/L (<32)
[2017-11-10 11:44] LABS: ALBUMIN 3.6 GM/DL (3.2-5.2); ALBUMIN/GLOBULIN RATIO 0.77 (1.00-1.93); ALKALINE PHOSPHATASE 94 U/L (45-117); ALT/SGPT 37 U/L (12-78); ANION GAP 10 MEQ/L (8-16); AST/SGOT 43 U/L (7-37); BILIRUBIN,TOTAL 0.6 MG/DL (0.2-1.0); BLOOD UREA NITROGEN 31 MG/DL (7-18); CALCIUM LEVEL 9.2 MG/DL (8.8-10.2); CARBON DIOXIDE LEVEL 29 MEQ/L (21-32); CHLORIDE LEVEL 102 MEQ/L (98-107); GLUCOSE, FASTING 162 MG/DL (70-100); POTASSIUM SERUM 3.9 MEQ/L (3.5-5.1); SODIUM LEVEL 141 MEQ/L (136-145); TOTAL PROTEIN 8.3 GM/DL (6.4-8.2)
[2017-11-10 12:18] LABS: BEDSIDE GLUCOSE 174 MG/DL (80-115)
[2017-11-10 17:22] LABS: BEDSIDE GLUCOSE 162 MG/DL (80-115)
[2017-11-11] MEDS: LEVOTHYROXINE 50MCG TABLET (0.05MG) PO (05:04)
[2017-11-11] MEDS: tiZANidine 4 MG TAB PO ×3 (05:04→21:06)
[2017-11-11] MEDS: oxyCODONE 5MG TAB PO ×3 (05:05→21:07)
[2017-11-11] MEDS: rifAXIMin 550 MG TAB (XIFAXAN) PO ×2 (08:46→21:06)
[2017-11-11] MEDS: OMEPRAZOLE 20 MG CAP PO (08:46)
[2017-11-11] MEDS: DOCUSATE SODIUM 100 MG CAP PO ×2 (08:46→21:05)
[2017-11-11] MEDS: FUROSEMIDE 40 MG TAB PO (08:46)
[2017-11-11] MEDS: HumaLOG INSULIN (NovoLOG) PER UNIT SC ×4 (08:46→21:00)
[2017-11-11] MEDS: SPIRONOLACTONE 50 MG TAB PO ×2 (08:46→17:40)
[2017-11-11] MEDS: LEVEMIR (INSULIN DETEMIR) 1 UNITS/0.01ML SC ×2 (08:46→21:08)
[2017-11-11 08:47] LABS: BEDSIDE GLUCOSE 135 MG/DL (80-115)
[2017-11-11] MEDS: MAGNESIUM OXIDE 400 MG TAB (MAG-OX) PO (08:47)
[2017-11-11] MEDS: CETIRIZINE (ZyrTEC) 10 MG TAB PO (08:47)
[2017-11-11] MEDS: GABAPENTIN 300 MG CAP PO ×4 (08:47→21:06)
[2017-11-11] MEDS: POTASSIUM CHLORIDE 10 MEQ SR TABLET PO (08:47)
[2017-11-11] MEDS: MUPIROCIN 2% OINT 22 GM TUBE TOP ×2 (08:49→21:12)
[2017-11-11] MEDS: METOPROLOL SUCC *XL* 25MG TAB (TopROL *XL*) PO ×2 (08:49→21:00)
[2017-11-11] MEDS: LACTULOSE 20 GM/30 ML SYRUP UD PO ×2 (08:50→21:05)
[2017-11-11] MEDS: DULoxetine 30 MG CAP (CYMBALTA) PO ×3 (08:51→21:05)
[2017-11-11] MEDS: hydrOXYzine 25 MG TAB PO ×2 (13:52→21:06)
[2017-11-11 15:55] LABS: BEDSIDE GLUCOSE 197 MG/DL (80-115)
[2017-11-11 15:55] LABS: BEDSIDE GLUCOSE 198 MG/DL (80-115)
[2017-11-12] MEDS: oxyCODONE 5MG TAB PO ×2 (03:44→10:29)
[2017-11-12] MEDS: tiZANidine 4 MG TAB PO ×2 (03:45→10:30)
[2017-11-12] MEDS: LEVOTHYROXINE 50MCG TABLET (0.05MG) PO (06:02)
[2017-11-12] MEDS: METOPROLOL SUCC *XL* 25MG TAB (TopROL *XL*) PO (08:57)
[2017-11-12] MEDS: LEVEMIR (INSULIN DETEMIR) 1 UNITS/0.01ML SC (08:58)
[2017-11-12] MEDS: HumaLOG INSULIN (NovoLOG) PER UNIT SC (08:58)
[2017-11-12] MEDS: rifAXIMin 550 MG TAB (XIFAXAN) PO (08:58)
[2017-11-12] MEDS: CETIRIZINE (ZyrTEC) 10 MG TAB PO (08:58)
[2017-11-12] MEDS: GABAPENTIN 300 MG CAP PO (08:58)
[2017-11-12] MEDS: SPIRONOLACTONE 50 MG TAB PO (08:58)
[2017-11-12] MEDS: MAGNESIUM OXIDE 400 MG TAB (MAG-OX) PO (08:59)
[2017-11-12] MEDS: DULoxetine 30 MG CAP (CYMBALTA) PO (08:59)
[2017-11-12] MEDS: OMEPRAZOLE 20 MG CAP PO (08:59)
[2017-11-12] MEDS: POTASSIUM CHLORIDE 10 MEQ SR TABLET PO (08:59)
[2017-11-12] MEDS: DOCUSATE SODIUM 100 MG CAP PO (09:00)
[2017-11-12] MEDS: LACTULOSE 20 GM/30 ML SYRUP UD PO (09:00)
[2017-11-12] MEDS: FUROSEMIDE 40 MG TAB PO (09:00)
[2017-11-12] MEDS: MUPIROCIN 2% OINT 22 GM TUBE TOP (09:00)
[2017-11-12 09:13] LABS: BEDSIDE GLUCOSE 152 MG/DL (80-115)
[2017-11-12 09:13] LABS: BEDSIDE GLUCOSE 200 MG/DL (80-115)
[2017-11-12 09:14] LABS: BEDSIDE GLUCOSE 168 MG/DL (80-115)
[2017-11-12] MEDS: hydrOXYzine 25 MG TAB PO (10:30)
[2017-11-12 11:13] LABS: BEDSIDE GLUCOSE 186 MG/DL (80-115)
== END 2017-11-12 10:55 | disposition home or self-care (01) | DRG 420 ==
LOC: M MS5PR 10-10 00:15 → M MS4PR 10-15 21:30 → M MSPAV 11-08 22:45 → M ED 15:19 → M ED INP 19:44
PROC: 3E0R33Z Introduction of Anti-inflammatory into Spinal Canal, Percutaneous Approach (ICD-10-PCS; principal; 2017-10-14)
DX: E11.65 Type 2 diabetes mellitus with hyperglycemia (principal); I13.0 Hypertensive heart and chronic kidney disease with heart failure and stage 1 through stage 4 chronic kidney disease, or unspecified chronic kidney disease; I50.32 Chronic diastolic (congestive) heart failure; K72.10 Chronic hepatic failure without coma; E11.22 Type 2 diabetes mellitus with diabetic chronic kidney disease; N18.3 Chronic kidney disease, stage 3 (moderate); K74.60 Unspecified cirrhosis of liver; E11.51 Type 2 diabetes mellitus with diabetic peripheral angiopathy without gangrene; E11.42 Type 2 diabetes mellitus with diabetic polyneuropathy; I87.2 Venous insufficiency (chronic) (peripheral); E03.9 Hypothyroidism, unspecified; K76.0 Fatty (change of) liver, not elsewhere classified; E11.69 Type 2 diabetes mellitus with other specified complication; I48.0 Paroxysmal atrial fibrillation; M51.16 Intervertebral disc disorders with radiculopathy, lumbar region; R26.81 Unsteadiness on feet; F20.9 Schizophrenia, unspecified; G47.33 Obstructive sleep apnea (adult) (pediatric); E78.5 Hyperlipidemia, unspecified; Z91.11 Patient's noncompliance with dietary regimen; Z79.4 Long term (current) use of insulin; Z79.899 Other long term (current) drug therapy; Z88.0 Allergy status to penicillin; Z88.6 Allergy status to analgesic agent; Z88.8 Allergy status to other drugs, medicaments and biological substances

== ENCOUNTER → 2019-06-01 | Outpatient (REF) | payer MEDICAID ==
[~2019-06-01] MED LIST changes: -/ADVA50050 INH; -/METO25TA PO; -/ONDA4TA OR; -/PANT40TA PO; -ACET1TAB17 PO; +ACET1TAB55 PO; +ADVA1AER2 INH; -ARTI99.0 OU; +ARTIDRO2 OU; +ASMA220A INH; -ASPI81CH32 PO; +ASPI81CH33 PO; +Acetaminophen Tab PO; -CLON0.5T PO; +CLON0.5T8 PO; +CLOT1CRE27 TOP; -CLOTR1CR TOP; +DULO1CAP5 PO; +FURO40TA2 PO; +GABA-1171 PO; -GABA-279 PO; -GABA-282 PO; -GABA-283 PO; +GABA-843 PO; +GABA-845 PO; -GLIM2TA PO; +GLIM2TAB29 PO; -GLUC4CHW PO; +GLUC4CHW19 PO; +HYDR1CRE95 TOP; +INCR1INH INH; +IPRA0.00 INH; +IPRA0.00 NEB; -IPRASOL4 INH; -IPRASOL4 NEB; +KLOR10TA76 PO; +KLOR20TA42 PO; +LACT15SO PO; -LACT20EL PO; -LASI20TA PO; +LASI20TA3 PO; -LASI40TA PO; +LASI40TA9 PO; +LIDO5OIN28 TOP; +MAG400TA PO; +METO1TAB7 PO; +METO1TAB84 PO; +MILK120011 PO; +NYST-15 TOP; -NYST10PW TOP; +ONDA-1 OR; +OXYC10TA3 PO; -OXYC1TAB16 PO; -POTA10CA PO; +PROL60SO SC; +SERT-141 PO; -SERT50TA PO; -SPIR50TA2 PO; +SPIR50TA4 PO; -SULF1TAB23 PO; +SULF1TAB93 PO; +TIZA2CAP PO; -TIZA2CAP3 PO; +TIZA4CAP PO; -TIZA4CAP3 PO; +TRES1INJ; +Tizanidine; +VERA120T4 PO; -VERA1TAB10 PO; +ZANA4TAB PO; -ZOFR20TA PO; +ZOFR4TAB16 PO
[2019-06-01 15:56] LABS: BASO % 0.6 % (0.0-1.0); EOS # 0.1 10^3/uL (0.0-0.5); EOS % 1.7 % (0.0-3.0); HEMATOCRIT 45.6 % (36.0-47.0); LYMPH # 1.5 10^3/uL (1.5-5.0); LYMPH % 21.7 % (24.0-44.0); MEAN CORPUSCULAR HEMOGLOBIN 31.3 pg (27.0-33.0); MEAN CORPUSCULAR HGB CONC 32.9 g/dl (32.0-36.5); MONO # 0.7 10^3/uL (0.0-0.8); MONO % 9.7 % (0.0-5.0); NEUTROPHILS # 4.6 10^3/uL (1.5-8.5); PLATELET COUNT, AUTOMATED 209 10^3/uL (150-450)
[2019-06-01 16:12] LABS: ALBUMIN 3.7 GM/DL (3.2-5.2); BILIRUBIN,TOTAL 0.7 MG/DL (0.2-1.0); CHOLESTEROL RISK RATIO 3.244 (<5); CREATININE FOR GFR 1.44 MG/DL (0.55-1.30); FREE T4 1.12 NG/DL (0.76-1.46); MAGNESIUM LEVEL 2.1 MG/DL (1.8-2.4); POTASSIUM SERUM 3.8 MEQ/L (3.5-5.1); THYROID STIMULATING HORMONE 1.66 uIU/ML (0.358-3.740); TOTAL PROTEIN 8.9 GM/DL (6.4-8.2)
[2019-06-01 16:32] LABS: MAU/CREAT RATIO 142.1 MCG/MG (0.0-30.0)
== END ==
LOC: M SFHCPLAZ 12:07
PROVIDERS: ATTEND Nurse Practitioner Family
DX: K72.90 Hepatic failure, unspecified without coma (principal); I50.30 Unspecified diastolic (congestive) heart failure; I10 Essential (primary) hypertension; D50.8 Other iron deficiency anemias; E03.9 Hypothyroidism, unspecified; E11.69 Type 2 diabetes mellitus with other specified complication; E78.2 Mixed hyperlipidemia

== ENCOUNTER → 2019-06-08 | Outpatient (REF) | payer MEDICAID ==
[2019-06-08 13:21] LABS: ALBUMIN 3.1 GM/DL (3.2-5.2); CALCIUM LEVEL 9.2 MG/DL (8.8-10.2); CREATININE FOR GFR 1.57 MG/DL (0.55-1.30); GLOMERULAR FILTRATION RATE 35.3 (>45); MAGNESIUM LEVEL 1.4 MG/DL (1.8-2.4); PHOSPHORUS LEVEL 3.2 MG/DL (2.5-4.9); POTASSIUM SERUM 3.3 MEQ/L (3.5-5.1)
== END ==
LOC: M LAB REF 12:11
PROVIDERS: ATTEND Family Medicine
DX: I50.30 Unspecified diastolic (congestive) heart failure (principal)

== ENCOUNTER → 2019-07-10 | Outpatient (REF) | payer MEDICAID ==
[~2019-07-10] MED LIST changes: -OMEP40CA2 PO; +OMEP40CA97 PO
[2019-07-10 15:54] LABS: APPEARANCE, URINE CLEAR (CLEAR); BACTERIA, URINE AUTO NEGATIVE (NEGATIVE); BILIRUBIN, URINE AUTO NEGATIVE (NEGATIVE); BLOOD, URINE BLOOD NEGATIVE (NEGATIVE); COLOR, URINE YELLOW (YELLOW); GLUCOSE, URINE (UA) AUTO NEGATIVE (NEGATIVE); KETONE, URINE AUTO NEGATIVE (NEGATIVE); LEUKOCYTE ESTERASE, URINE AUTO NEGATIVE (NEGATIVE); NITRITE, URINE AUTO NEGATIVE (NEGATIVE); PROTEIN, URINE AUTO NEGATIVE (NEGATIVE); RBC, URINE AUTO 1 /HPF (0-3); SPECIFIC GRAVITY URINE AUTO 1.004 (1.002-1.035); SQUAMOUS EPITHELIAL CELL UR AU 0 /HPF (0-6); UROBILINOGEN, URINE AUTO 0.2 mg/dL (0.0-2.0); WBC, URINE AUTO 1 /HPF (0-3)
== END ==
LOC: M SFHCPLAZ 15:40
PROVIDERS: ATTEND Nurse Practitioner Family
DX: N39.0 Urinary tract infection, site not specified (principal)

== ENCOUNTER 2019-07-27 19:01 | Emergency (ER) | payer MEDICAID ==
[~2019-07-27] VITALS: Ht 160 cm; Wt 124.1 kg
[2019-07-27 19:09] VITALS: BP 155/89
[2019-07-27] MEDS ORDERED: FLUC100T (19:17)
[2019-07-27] MEDS ORDERED: BUPR10DI3 (19:17)
[2019-07-27] MEDS ORDERED: CEPH500C (19:17)
[2019-07-27] MEDS ORDERED: DOK1CAP7 PO (19:44)
[2019-07-27] MEDS ORDERED: TOUJ1.2I SC (19:44)
[2019-07-27] MEDS ORDERED: METO5TA PO (19:44)
[2019-07-27] MEDS ORDERED: TORS10TA3 PO (19:44)
[2019-07-27] MEDS ORDERED: FAMO1TAB11 PO (19:44)
[2019-07-27] MEDS ORDERED: NYST10CR TOP (19:44)
[2019-07-27] MEDS ORDERED: traMADol 50 MG TAB PO ONE (20:00)
[2019-07-27] MEDS ORDERED: METHOCARBAMOL 500 MG TAB PO ONE (20:00)
[2019-07-27] MEDS ORDERED: traMADol 50 MG TAB (BULK 4 TAB ED) PO ONE (22:30)
[2019-07-27] MEDS ORDERED: TRAM50TA2 PO (22:32)
[2019-07-27] MEDS ORDERED: BUPR10DI3 TD (22:32)
== END 2019-07-27 22:56 | disposition home or self-care (01) ==
LOC: M ED 19:01
DX: M54.9 Dorsalgia, unspecified (principal); G89.29 Other chronic pain; I50.9 Heart failure, unspecified; E11.22 Type 2 diabetes mellitus with diabetic chronic kidney disease; J44.9 Chronic obstructive pulmonary disease, unspecified; N18.3 Chronic kidney disease, stage 3 (moderate); Z87.891 Personal history of nicotine dependence; Z88.0 Allergy status to penicillin; Z88.6 Allergy status to analgesic agent; Z88.8 Allergy status to other drugs, medicaments and biological substances; Z79.899 Other long term (current) drug therapy; Z79.51 Long term (current) use of inhaled steroids; Z79.4 Long term (current) use of insulin

== ENCOUNTER 2019-08-05 20:01 | Inpatient (IN) | payer MEDICAID ==
[~2019-08-05] VITALS: Ht 160 cm; Wt 120.0 kg
[~2019-08-05 20:01] MED LIST changes: +BUPR10DI3; +BUPR10DI3 TD; +CEPH500C; +DOK1CAP7 PO; +FAMO1TAB11 PO; +FLUC100T; +METO5TA PO; +NYST10CR TOP; +TORS10TA3 PO
[2019-08-05] MEDS ORDERED: traMADol 50 MG TAB PO ONE (21:15)
[2019-08-05] MEDS ORDERED: BUTR10DI TOP (21:51)
[2019-08-05] MEDS ORDERED: XIFA550T PO (21:59)
[2019-08-05] MEDS ORDERED: POTA10CA32 PO (21:59)
[2019-08-05] MEDS ORDERED: GABA-843 PO (21:59)
[2019-08-05] MEDS ORDERED: SPIR50TA4 PO (21:59)
[2019-08-05] MEDS ORDERED: HYDR-3363 PO (21:59)
[2019-08-05] MEDS ORDERED: SPIR1CAP INH (21:59)
[2019-08-05] MEDS ORDERED: METO25TA4 PO (21:59)
[2019-08-05] MEDS ORDERED: TOUJ1.2I SC (21:59)
[2019-08-05] MEDS ORDERED: SYNT50TA PO (21:59)
[2019-08-05] MEDS ORDERED: TIZA4TAB4 PO (21:59)
[2019-08-05] MEDS ORDERED: FERR325T3 PO (21:59)
[2019-08-05] MEDS ORDERED: CETI10TA8 PO (22:00)
[2019-08-05] MEDS ORDERED: MAGN400T2 PO (22:00)
[2019-08-05] MEDS ORDERED: HYDR1CRE95 TOP (22:07)
[2019-08-05] MEDS ORDERED: LACT10SO29 PO (22:07)
[2019-08-05] MEDS ORDERED: OMEG10002 PO (22:07)
[2019-08-05] MEDS ORDERED: MOM30SS PO (22:07)
[2019-08-05] MEDS ORDERED: OMEP-221 PO (22:07)
[2019-08-05] MEDS ORDERED: ONDA4TAB5 PO (22:08)
[2019-08-06 00:08] LABS: BASO % 0.8 % (0.0-1.0); EOS # 0.1 10^3/uL (0.0-0.5); EOS % 2.4 % (0.0-3.0); HEMATOCRIT 43.6 % (36.0-47.0); HEMOGLOBIN 13.9 g/dl (12.0-15.5); LYMPH # 1.2 10^3/uL (1.5-5.0); LYMPH % 23.9 % (24.0-44.0); MEAN CORPUSCULAR HEMOGLOBIN 30.5 pg (27.0-33.0); MEAN CORPUSCULAR HGB CONC 31.9 g/dl (32.0-36.5); MEAN CORPUSCULAR VOLUME 95.6 fl (80.0-96.0); MONO # 0.5 10^3/uL (0.0-0.8); MONO % 9.3 % (0.0-5.0); NEUTROPHILS # 3.2 10^3/uL (1.5-8.5); NEUTROPHILS % 63.2 % (36.0-66.0); PLATELET COUNT, AUTOMATED 155 10^3/uL (150-450); RED BLOOD COUNT 4.56 10^6/uL (4.00-5.40)
[2019-08-06 00:10] LABS: ALBUMIN 2.9 GM/DL (3.2-5.2); ALT/SGPT 30 U/L (12-78); BILIRUBIN,DIRECT 0.2 MG/DL (0.0-0.2); BILIRUBIN,TOTAL 0.6 MG/DL (0.2-1.0); BLOOD UREA NITROGEN 18 MG/DL (7-18); C REACTIVE PROTEIN QUANTITATIV 2.85 MG/DL (0.00-0.30); CARBON DIOXIDE LEVEL 27 MEQ/L (21-32); CHLORIDE LEVEL 102 MEQ/L (98-107); CPK CREATINE PHOSPHOKINASE 476 U/L (26-192); CREATININE FOR GFR 1.38 MG/DL (0.55-1.30); GLUCOSE, FASTING 122 MG/DL (70-100); LIPASE 61 U/L (73-393); MB/CK RELATIVE INDEX 1.26 (< OR =4); POTASSIUM SERUM 3.8 MEQ/L (3.5-5.1); SODIUM LEVEL 140 MEQ/L (136-145); TOTAL PROTEIN 7.5 GM/DL (6.4-8.2); TROPONIN I < 0.02 NG/ML (< 0.10)
[2019-08-06 00:38] LABS: ERYTHROCYTE SEDIMENTATION RATE 51 mm/hr (0-30)
--- NOTE | 2019-08-06 00:38 | HPEPDOC ---
[facility] Medical History & Physical Date of Admission Aug 06, 2019 Date of Service: Aug 06, 2019 Primary Care Physician: Paul Torres M.D. Attending Physician: Paul Torres M.D. History and Physical TIME OF SERVICE: 3:10 AM CHIEF COMPLAINT: pain HISTORY OF PRESENT ILLNESS: This is a 63-year-old female who presents with complaints of back , leg , and foot pain which she attributes to her. taking her off of her pain meds last week. He came to the also because the pain was extreme and she "couldn't stand it". Associated symptoms include chills, nausea without vomiting, muscle aches, runny nose, and goosebump. Has a history of chronic constipation that resolved yesterday. She also has pain and redness of the skin at her lower abdomen; reports simply completing a course of antibiotics for cellulitis of the lower extremities. Per discussion with the ED provided the patient's daughter refused to take her home, so he requested admission for pain management. REVIEW OF SYSTEMS: 12 point review of systems negative except as listed in HPI PAST MEDICAL/ SURGICAL HISTORY: Liver cirrhosis , portal hypertension and history of hepatic encephalopathy Hypothyroidism IDDM Schizophrenia. Noncompliance with CPAP. CKD 3 Chronic hypertension Dyslipidemia. PAD COPD? CKD III Morbid obesity History of candidal dermatitis of the abdominal wall History of iron deficiency anemia Status post total abdominal hysterectomy Status post small bowel obstruction. Status post cholecystectomy Status post ORIF of the right hip SOCIAL HISTORY: She does not smoke. She does not use alcohol She lives alone FAMILY HISTORY: Diabetes ALLERGIES: Please see below. HOME MEDICATIONS: Please see below. PHYSICAL EXAMINATION: VITAL SIGNS: Please see below. GENERAL APPEARANCE: Well-nourished, well-developed, not in apparent distress HEENT: Normocephalic, atraumatic, mucous members moist and pink CARDIOVASCULAR: Regular rate and rhythm. No murmurs, rubs or gallops LUNGS: Clear to auscultation bilaterally on room air ABDOMEN: There is an area of redness that is warm with raised, thickened skin at the mid to lower abdomen. Patient reports that the series tender with palpation MUSCULOSKELETAL: Range of motion intact in all 4 extremities NEUROLOGICAL: Cranial nerves II-12 are grossly intact. Speech is not dysarthric PSYCHIATRIC: Alert and oriented, able to understand and follow commands LABORATORY DATA: See below. MICROBIOLOGY: Please see below. ASSESSMENT: Ms. Klein is a 63-year-old female with a past medical history of liver cirrhosis, hypothyroidism, IDDM, CKD 3, dyslipidemia, and morbid obesity who presents with complaints of diffuse pain in the setting of having her pain meds discontinued. PLAN: 1. Chronic lower back and lower extremity pain. She appears comfortable after receiving tramadol in the ED Plan: Admit to medical floor/ Tylenol when necessary/ give an additional dose of tramadol/ up titrate gabapentin /add lidocaine patche/ consider adding duloxetine and referral to pain meds specialist 2. Hypothyroidism Plan: Resume home meds 3. Schizophrenia. Plan: Resume home meds 4. CKD 3 At baseline 5. Chronic hypertension Plan: Resume home meds 6. IDDM Last A1c was 10 in May Plan: f/u Accu-Cheks/Resume home meds/sliding scale insulin/hypoglycemia protocol 7. Dyslipidemia. Plan: Resume home meds 8. PAD Plan: Resume home meds 9. COPD? Plan: Resume home meds 10. Morbid obesity BMI is 46.9 kg This complicates care Plan: bariatric mattress / she can f/u w her PCP for a referral to a social service manager 11.Candidal dermatitis of the abdominal wall Plan: hydrocortisone cream DVT prophylaxis with SCDs. Disposition: She declined halfway placement therefore, she'll likely go home in the morning Vital Signs Vital Signs Date Time Temp Pulse Resp B/P (MAP) Pulse Ox O2 Delivery O2 Flow Rate FiO2 08/05/19 23:01 65 18 94 Room Air 08/05/19 22:43 141/66 (91) 08/05/19 20:11 97.2 Laboratory Data Labs 24H Laboratory Tests 2 08/05/19 23:32: Immature Granulocyte % (Auto) 0.4, Neutrophils (%) (Auto) 63.2, Lymphocytes (%) (Auto) 23.9L, Monocytes (%) (Auto) 9.3H, Eosinophils (%) (Auto) 2.4, Basophils (%) (Auto) 0.8, Neutrophils # (Auto) 3.2, Lymphocytes # (Auto) 1.2L, Monocytes # (Auto) 0.5, Eosinophils # (Auto) 0.1, Basophils # (Auto) 0.0, Nucleated Red Blood Cells % (auto) 0.0, Anion Gap 11, Glomerular Filtration Rate 41.0L, Calcium Level 9.0, Total Bilirubin 0.6, Direct Bilirubin 0.2, Aspartate Amino Transf (AST/SGOT) 64H, Alanine Aminotransferase (ALT/SGPT) 30, Alkaline Phosphatase 115, Total Creatine Kinase 476H, Creatine Kinase MB 6.0H, Creatine Kinase MB Relative Index 1.26, Troponin I < 0.02, C-Reactive Protein, Quantitative 2.85H, Total Protein 7.5, Albumin 2.9L, Albumin/Globulin Ratio 0.63L, Lipase 61L CBC/BMP Laboratory Tests 08/05/19 23:32 Home Medications Scheduled Buprenorphine (Butrans) 10 Mcg/Hr Patch.tdwk, 1 PATCH TOP 1XWK SHOULD BE TAKEN OFF TONIGHT Cetirizine HCl (Cetirizine HCl) 10 Mg Tablet, 10 MG PO DAILY Denosumab Injection (Prolia) 60 Mg/Ml Alicia, 60 MG SC ASDIRECTED EVERY 6 MONTHS Famotidine (Famotidine) 20 Mg Tablet, 20 MG PO QHS Ferrous Sulfate (Ferrous Sulfate) 325 Mg Tablet.dr, 325 MG PO DAILY Gabapentin (Gabapentin) 300 Mg Capsule, 600 MG PO BID Insulin Glargine,Hum.rec.anlog (Toujeo Solostar) 300 Unit/1 Ml Insuln.pen, 80 UNITS SC DAILY Insulin Glargine,Hum.rec.anlog (Toujeo Solostar) 300 Unit/1 Ml Insuln.pen, 70 UNIT SC QHS Lactulose (Lactulose) 10 Gm/15 Ml Solution, 30 ML PO BID Levothyroxine Sodium (Synthroid) 50 Mcg Tablet, 50 MCG PO DAILY Magnesium Oxide (Magnesium Oxide) 400 Mg Tablet, 400 MG PO DAILY Metolazone (Metolazone) 5 Mg Tablet, 5 MG PO DAILY Metoprolol Tartrate (Metoprolol Tartrate) 25 Mg Tablet, 25 MG PO BID Mineral Oil/Petrolatum,White (Hydrocerin Cream) 113 Gm Cream..g., 1 APPLIC TOP DAILY APPLY TO AFFECTED AREA Nystatin (Nystatin) 15 Gm Cream..g., 1 APPLIC TOP BID APPLIED TO AFFECTED AREA Rolla-3/Dha/Epa/Fish Oil (Fish Oil 1,000 mg Softgel) 1 Each Capsule, 1 CAP PO DAILY Omeprazole (Omeprazole) 40 Mg Capsule.dr, 40 MG PO DAILY Potassium Chloride (Potassium Chloride) 10 Meq Capsule.er, 10 MEQ PO TID Rifaximin (Xifaxan) 550 Mg Tablet, 550 MG PO BID Spironolactone (Spironolactone) 50 Mg Tablet, 50 MG PO BID Tiotropium [place] (Spiriva) 18 Mcg Cap.w.dev, 1 CAP INH DAILY Torsemide (Torsemide) 10 Mg Tablet, 10 MG PO DAILY Scheduled PRN Docusate Sodium (Dok) 100 Mg Capsule, 100 MG PO DAILY PRN for CONSTIPATION Hydroxyzine HCl (Hydroxyzine HCl) 25 Mg Tablet, 25 MG PO TID PRN for ITCHING Milk Of Magnesia (Milk of Magnesia) 2,400 Mg/10 Ml Oral.susp, 10 ML PO DAILY PRN for CONSTIPATION Ondansetron HCl (Ondansetron HCl) 4 Mg Tablet, 4 MG PO Q6H PRN for NAUSEA OR VO MITING Tizanidine HCl (Tizanidine HCl) 4 Mg Tablet, 4 MG PO QID PRN for MUSCLE SPASMS Allergies Coded Allergies: Quinolones (Verified Allergy, Severe, HIVES, 07/27/19) Penicillins (Verified Allergy, Intermediate, HIVES, 07/27/19) ibuprofen (Verified Allergy, Intermediate, RASH, 07/27/19) A-FIB/CHADSVASC A-FIB History Current/History of A-Fib/PAF?: No Current PO Anticoag Therapy: MUSA Resendiz MD Aug 06, 2019 00:38
[2019-08-06] MEDS ORDERED: ACETAMINOPHEN TAB 650MG DOSE (2X325MG) PO PRN (01:30)
[2019-08-06] MEDS ORDERED: traMADol 50 MG TAB PO ONE (03:30)
[2019-08-06] MEDS ORDERED: MOM 30ML SUSPENSION UDC PO PRN (03:30)
[2019-08-06] MEDS ORDERED: DOCUSATE SODIUM 100 MG CAP PO PRN (03:30)
[2019-08-06] MEDS ORDERED: GLUCOSE 4 GM CHEW TABLET PO PRN (03:30)
[2019-08-06] MEDS ORDERED: GLUCAGON FOR INJ 1 MG VIAL (J1610) SC PRN (03:30)
[2019-08-06] MEDS ORDERED: DEXTROSE 50% 50 ML SYRINGE IV PRN (03:30)
[2019-08-06] MEDS ORDERED: CLINDAMYCIN 900 MG in IV 1 EA IV SCH (04:00)
[2019-08-06] MEDS: LEVOTHYROXINE 50MCG TABLET (0.05MG) PO SCH (06:13)
[2019-08-06] MEDS: TIOTROPIUM INHALER/CAPSULE (SPIRIVA) INH SCH (07:22)
[2019-08-06] MEDS: ACETAMINOPHEN TAB 650MG DOSE (2X325MG) PO PRN (07:26)
--- NOTE | 2019-08-06 07:28 | ECGEPIP ---
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
[2019-08-06] MEDS: HumaLOG INSULIN (NovoLOG) PER UNIT SC SCH ×4 (07:30→21:00)
[2019-08-06] MEDS: NYSTATIN CREAM 15 GM TOP SCH ×2 (09:00→21:05)
[2019-08-06] MEDS ORDERED: GABAPENTIN 300 MG CAP PO SCH (09:00)
--- NOTE | 2019-08-06 10:00 | IPNPDOC ---
Subjective Date Seen The patient was seen on 08/06/19. Subjective Chief Complaint/HPI back and leg pain. reports chronic low back pain. overall pain increased recently due to changes in medicine for pain control. Constitutional: Denies: Chills ENT: Denies: Head Aches Pulmonary: Denies: Dyspnea Cardiovascular: Denies: Chest Pain, Orthopnea Gastrointestinal: Denies: Nausea, Vomiting Hematologic: Denies: Bruising Neurological: Denies: Weakness Psych: Reports: Anxiety (seems anxious about control of discomfort. denies wish to or seek Hospice care, reports it was her daughter's idea) Objective Physical Examination General Exam: Positive: Alert, Cooperative Eye Exam: Positive: PERRLA; Negative: EOMI ENT Exam: Positive: Atraumatic Chest Exam: Positive: Clear to auscultation Heart Exam: Positive: Rate Normal, Regular Rhythm Abdomen Exam: Positive: Normal bowel sounds, Soft; Negative: Tenderness Extremity Exam: Positive: Normal pulses (DP pulses are strong bilaterally. ) Skin Exam: Positive: Other skin issue (hyperpigmentation lower extremities c/w stasis dermatitis. ulcers on left leg and right leg, tender lesion right irving with some induration. no active drainage. callus on medial right great toe with purple discoloration underlying. induration of skin of pannus, broadly. fissuring in skin fold, some weeping.also tender to touch) Neuro Exam: Positive: Normal Speech, Sensation Intact Psych Exam: Positive: Mental status NL Assessment /Plan Problems (1) Venous stasis dermatitis of both lower extremities Status: Chronic Problem Text: right irving is tender, somewhat indurated. cultures not useful from chronic surface wounds, will treat empirically with doxy for now. request Automobile Accessories Installer from PT. May benefit from Unna boots (2) Cellulitis of abdominal wall Status: Chronic Problem Text: very red, indurated, fissuring. will Rx for topical antibiotic (if tolerated) and antifungal. add doxy po (3) Low back pain Status: Chronic Problem Text: patient believed that she had imaging done in [place] in past 6 mos but search of [facility] showed no evidence of back imaging having been done with the past year. Will request CT lumbar spine Had been on Tramadol at 50 tid, but recently switched to Butrans patch which she affirmed was not helping her pain. So will resume Tramadol at 50 bid (safe limit for Chronic liver disease patient). If not adequate and no different path suggested by Lumbar imaging then consider pain specialty consult. (4) Cirrhosis Status: Chronic Response to Treatment: Stable Problem Specific Plan: Monitor Clinically Problem Text: will check PT/PTT to further gauge liver function. Etiology appears to be NAFLD. (5) Morbid obesity Status: Chronic Problem Text: patient been at rehab facility in [place] and was discharged home but clearly not thriving independently and seems like she should be NH. Long discussion with daughter who reports that Pat had told her that the Doctor's office had told her that she had end stage liver disease and that she should consider Hospice. There is nothing in the last few office visit notes resembling this discussion. What had happened was decision to stop tramadol and replace it with Butrans (which patient reported wasn't working) and refer her to Dr. Preston (appt scheduled for 08/14/19) Plan/VTE VTE Prophylaxis Ordered?: Yes Plan Anticipated Discharge: [facility] VS, I&O, [facility] Vital Signs/I&O Vital Signs Date Time Temp Pulse Resp B/P (MAP) Pulse Ox O2 Delivery O2 Flow Rate FiO2 08/06/19 06:32 98.1 08/06/19 06:22 89 22 168/88 (114) 99 Room Air Laboratory Data 24H LABS Laboratory Tests 2 08/05/19 23:32: Immature Granulocyte % (Auto) 0.4, Neutrophils (%) (Auto) 63.2, Lymphocytes (%) (Auto) 23.9L, Monocytes (%) (Auto) 9.3H, Eosinophils (%) (Auto) 2.4, Basophils (%) (Auto) 0.8, Neutrophils # (Auto) 3.2, Lymphocytes # (Auto) 1.2L, Monocytes # (Auto) 0.5, Eosinophils # (Auto) 0.1, Basophils # (Auto) 0.0, Nucleated Red Blood Cells % (auto) 0.0, Erythrocyte Sedimentation Rate 51H, Anion Gap 11, Glomerular Filtration Rate 41.0L, Calcium Level 9.0, Total Bilirubin 0.6, Direct Bilirubin 0.2, Aspartate Amino Transf (AST/SGOT) 64H, Alanine Aminotransferase (ALT/SGPT) 30, Alkaline Phosphatase 115, Total Creatine Kinase 476H, Creatine Kinase MB 6.0H, Creatine Kinase MB Relative Index 1.26, Troponin I < 0.02, C- Reactive Protein, Quantitative 2.85H, Total Protein 7.5, Albumin 2.9L, Albumin/Globulin Ratio 0.63L, Lipase 61L 08/06/19 05:45: Ammonia 33H CBC/BMP Laboratory Tests 08/05/19 23:32 Rory Porter MD Aug 06, 2019 10:00
[2019-08-06 10:03] LABS: INR 1.3; PARTIAL THROMBOPLASTIN TIME 26.3 SECONDS (25.0-38.4); PROTHROMBIN TIME 15.9 SECONDS (11.8-14.0)
[2019-08-06] MEDS: LIDOCAINE 5% (LIDODERM) PATCH TD SCH (10:40)
[2019-08-06] MEDS: HYDROCORTISONE 1% CREAM 30 GM TOP SCH (10:40)
[2019-08-06] MEDS: CETIRIZINE (ZyrTEC) 10 MG TAB PO SCH (10:42)
[2019-08-06] MEDS: GABAPENTIN 300 MG CAP PO SCH ×2 (10:42→21:04)
[2019-08-06] MEDS: OMEGA-3 1000MG CAPSULE PO SCH (10:42)
[2019-08-06] MEDS: metOLazone 5 MG TAB PO SCH (10:42)
[2019-08-06] MEDS: rifAXIMin 550 MG TAB (XIFAXAN) PO SCH ×2 (10:42→21:04)
[2019-08-06] MEDS: POTASSIUM CHLORIDE 10 MEQ SR TABLET PO SCH ×3 (10:42→21:04)
[2019-08-06] MEDS: LACTULOSE 20 GM/30 ML SYRUP UD PO SCH ×2 (10:42→21:04)
[2019-08-06] MEDS: TORSEMIDE 10 MG TABLET PO SCH (10:43)
[2019-08-06] MEDS: FERROUS SULFATE 325MG TAB PO SCH (10:43)
[2019-08-06] MEDS: MAGNESIUM OXIDE 400 MG TAB (MAG-OX) PO SCH (10:43)
[2019-08-06] MEDS: DOXYCYCLINE HYCLATE 100 MG TAB PO SCH ×2 (10:43→21:04)
[2019-08-06] MEDS: SPIRONOLACTONE 50 MG TAB PO SCH ×2 (10:43→21:03)
[2019-08-06] MEDS: OMEPRAZOLE 20 MG CAP PO SCH (10:44)
[2019-08-06] MEDS: ENOXAPARIN 40 MG/0.4 ML SYRINGE (J1650) SC SCH (10:44)
[2019-08-06] MEDS: METOPROLOL TART 25 MG TABLET PO SCH ×2 (10:44→21:04)
[2019-08-06] MEDS: LEVEMIR (INSULIN DETEMIR) 1 UNITS/0.01ML SC SCH ×2 (10:45→21:05)
--- NOTE | 2019-08-06 10:46 | REP ---
CT lumbar spine: 08/06/2019. Indication: Low back pain. Comparison: MRI lumbar spine dated 04/25/2017. Technique: Axial images of the lumbar spine were obtained without IV contrast with coronal and sagittal reconstructions provided. Findings: Chronic appearing superior L5 endplate compression fracture is present with mild retropulsion of the superior posterior cortex into the spinal canal. There is overall approximately 30% loss of craniocaudal height. No acute fractures are present. There is no evidence of acute subluxation or dislocation. Disc space narrowing is present most pronounced at L2/L3. No blastic or lytic lesions of the visualized osseous structures are present. Aortoiliac atherosclerotic disease is present. No acute paraspinal soft tissue abnormalities are detected. There is no evidence of focal disc herniation by this technique. The spinal canal and neural foramina appear patent throughout. Impression: No acute osseous injury of the lumbar spine. Chronic superior L5 endplate compression fracture. Electronically Signed by Bhargav Smith DO 08/06/2019 10:37 A
[2019-08-06] MEDS: CLINDAMYCIN TOP 1% SOLN 60 ML BTL TOP SCH ×2 (10:51→21:05)
[2019-08-06] MEDS: CLOTRIMAZOLE 1% TOPICAL CREAM 30GM TOP SCH ×2 (10:51→21:05)
[2019-08-06] MEDS: traMADol 50 MG TAB PO PRN ×2 (10:52→22:50)
[2019-08-06] MEDS: ONDANSETRON 4 MG TAB (S0181) PO PRN (13:39)
[2019-08-06] MEDS: tiZANidine 4 MG TAB PO PRN (13:39)
[2019-08-06 15:46] VITALS: BP 136/67
[2019-08-06 20:00] VITALS: BP 154/81
[2019-08-06] MEDS: FAMOTIDINE 20 MG TAB PO SCH (21:04)
[2019-08-06] MEDS: **NOTE PATIENT COMMENT** MISC XX SCH (21:06)
[2019-08-07] MEDS: LEVOTHYROXINE 50MCG TABLET (0.05MG) PO SCH (05:55)
[2019-08-07 05:56] VITALS: BP 153/91
[2019-08-07 06:45] LABS: HEMATOCRIT 42.3 % (36.0-47.0); HEMOGLOBIN 13.9 g/dl (12.0-15.5); MEAN CORPUSCULAR HEMOGLOBIN 31.1 pg (27.0-33.0); MEAN CORPUSCULAR HGB CONC 32.9 g/dl (32.0-36.5); MEAN CORPUSCULAR VOLUME 94.6 fl (80.0-96.0); PLATELET COUNT, AUTOMATED 182 10^3/uL (150-450); RED BLOOD COUNT 4.47 10^6/uL (4.00-5.40)
[2019-08-07 07:08] LABS: CALCIUM LEVEL 9.5 MG/DL (8.8-10.2); CREATININE FOR GFR 1.52 MG/DL (0.55-1.30); GLOMERULAR FILTRATION RATE 36.7 (>45); POTASSIUM SERUM 3.5 MEQ/L (3.5-5.1)
[2019-08-07] MEDS: TIOTROPIUM INHALER/CAPSULE (SPIRIVA) INH SCH (07:21)
[2019-08-07] MEDS: HYDROCORTISONE 1% CREAM 30 GM TOP SCH (09:10)
[2019-08-07] MEDS: CLINDAMYCIN TOP 1% SOLN 60 ML BTL TOP SCH ×2 (09:10→21:13)
[2019-08-07] MEDS: CLOTRIMAZOLE 1% TOPICAL CREAM 30GM TOP SCH ×2 (09:10→21:13)
[2019-08-07] MEDS: LIDOCAINE 5% (LIDODERM) PATCH TD SCH (09:10)
[2019-08-07] MEDS: ENOXAPARIN 40 MG/0.4 ML SYRINGE (J1650) SC SCH (09:11)
[2019-08-07] MEDS: NYSTATIN CREAM 15 GM TOP SCH ×2 (09:11→21:13)
[2019-08-07] MEDS: LACTULOSE 20 GM/30 ML SYRUP UD PO SCH ×2 (09:11→21:11)
[2019-08-07] MEDS: HumaLOG INSULIN (NovoLOG) PER UNIT SC SCH ×4 (09:12→21:00)
[2019-08-07] MEDS: LEVEMIR (INSULIN DETEMIR) 1 UNITS/0.01ML SC SCH ×2 (09:12→21:12)
[2019-08-07] MEDS: metOLazone 5 MG TAB PO SCH (09:12)
[2019-08-07] MEDS: POTASSIUM CHLORIDE 10 MEQ SR TABLET PO SCH ×3 (09:13→21:12)
[2019-08-07] MEDS: OMEPRAZOLE 20 MG CAP PO SCH (09:13)
[2019-08-07] MEDS: CETIRIZINE (ZyrTEC) 10 MG TAB PO SCH (09:14)
[2019-08-07] MEDS: METOPROLOL TART 25 MG TABLET PO SCH ×2 (09:14→21:12)
[2019-08-07] MEDS: tiZANidine 4 MG TAB PO PRN ×3 (09:14→17:33)
[2019-08-07] MEDS: rifAXIMin 550 MG TAB (XIFAXAN) PO SCH ×2 (09:14→21:11)
[2019-08-07] MEDS: OMEGA-3 1000MG CAPSULE PO SCH (09:14)
[2019-08-07] MEDS: MAGNESIUM OXIDE 400 MG TAB (MAG-OX) PO SCH (09:14)
[2019-08-07] MEDS: DOXYCYCLINE HYCLATE 100 MG TAB PO SCH ×2 (09:14→21:12)
[2019-08-07] MEDS: FERROUS SULFATE 325MG TAB PO SCH (09:14)
[2019-08-07] MEDS: TORSEMIDE 10 MG TABLET PO SCH (09:15)
[2019-08-07] MEDS: GABAPENTIN 300 MG CAP PO SCH ×2 (09:22→21:11)
[2019-08-07] MEDS: SPIRONOLACTONE 50 MG TAB PO SCH ×2 (09:22→21:11)
[2019-08-07] MEDS: MORPHINE 15 MG SA TAB PO SCH ×2 (09:22→21:11)
[2019-08-07] MEDS: DULoxetine 30 MG CAP (CYMBALTA) PO SCH (09:23)
--- NOTE | 2019-08-07 09:33 | IPNPDOC ---
Subjective Date Seen The patient was seen on 08/07/19. Subjective Chief Complaint/HPI still having a lot of low back pain. says the intervals with tramadol are too long. Dr Torres reports patient has a long history of what he considers to be drug seeking behavior and hx of becoming too sedated by combination effects of pain meds, psychotropics, and chronic liver disease with elevated ammonia levels. Constitutional: Denies: Chills ENT: Denies: Head Aches Pulmonary: Denies: Dyspnea, Cough Cardiovascular: Denies: Chest Pain Gastrointestinal: Denies: Nausea, Vomiting Genitourinary: Denies: Dysuria Musculoskeletal: Denies: Neck Pain Neurological: Denies: Weakness, Numbness Psych: Reports: Depression (she says she has been having increased crying spells lately.) Objective Physical Examination General Exam: Positive: Alert, Cooperative Eye Exam: Positive: PERRLA; Negative: EOMI ENT Exam: Positive: Atraumatic Chest Exam: Positive: Clear to auscultation Heart Exam: Positive: Rate Normal, Regular Rhythm Abdomen Exam: Positive: Normal bowel sounds, Soft; Negative: Tenderness Extremity Exam: Positive: Normal pulses (DP pulses are strong bilaterally. ) Skin Exam: Positive: Other skin issue (lower extremity lesions are stable, painful area on left irving is less indurated and less tender. skin of lower abdomen is much less red, some decrease in edema) Neuro Exam: Positive: Normal Speech, Sensation Intact Psych Exam: Positive: Mental status NL Assessment /Plan Problems (1) Venous stasis dermatitis of both lower extremities Status: Chronic Problem Text: 08/07: improvement noted. 08/06: right irving is tender, somewhat indurated. cultures not useful from chronic surface wounds, will treat empirically with doxy for now. request Data Manager from PT. May benefit from Unna boots (2) Cellulitis of abdominal wall Status: Chronic Problem Text: 08/07 significant improvement in redness, also less weeping. very red, indurated, fissuring. will Rx for topical antibiotic (if tolerated) and antifungal. add doxy po (3) Low back pain Status: Chronic Problem Text: 08/07: CT reviewed: L5 30% compression deformity of uncertain age, probably not recent, disc disease L2/3. No help from lidoderm patient believed that she had imaging done in [place] in past 6 mos but search of [facility] showed no evidence of back imaging having been done with the past year. Will request CT lumbar spine Had been on Tramadol at 50 tid, but recently switched to Butrans patch which she affirmed was not helping her pain. So will resume Tramadol at 50 bid (safe limit for Chronic liver disease patient). If not adequate and no different path suggested by Lumbar imaging then consider pain specialty consult. (4) Cirrhosis Status: Chronic Response to Treatment: Stable Problem Specific Plan: Monitor Clinically Problem Text: 08/07: PT slightly elevated but not enough to provide DVT prophylaxis. Will require continuation of ammonia control agents and caution with use of pain meds. will check PT/PTT to further gauge liver function. Etiology appears to be NAFLD. (5) Morbid obesity Status: Chronic Response to Treatment: Stable Problem Specific Plan: Monitor Clinically Problem Text: patient been at rehab facility in [place] and was discharged home but clearly not thriving independently and seems like she should be NH. Long discussion with daughter who reports that Pat had told her that the Doctor's office had told her that she had end stage liver disease and that she should consider Hospice. There is nothing in the last few office visit notes resembling this discussion. What had happened was decision to stop tramadol and replace it with Butrans (which patient reported wasn't working) and refer her to Dr. Preston (appt scheduled for 08/14/19) (6) T2DM (type 2 diabetes mellitus) Status: Chronic Response to Treatment: Stable Problem Text: continue current insulin schedule. (7) Stage III chronic kidney disease Status: Chronic Response to Treatment: Worse Problem Text: likely secondary to diabetes and need to use diuretics to control cirrhosis related edema. creatinine up a little from admission, will reduce metolazone dose. if climbing again will need to hold diuretics briefly. (8) Diastolic CHF Status: Resolved Response to Treatment: Stable Problem Text: This diagnosis may not be valid. Echo from [address] Betts showed normal EF at 65% and no diastolic dysfunction and minimal age related valvular changes. Plan/VTE VTE Prophylaxis Ordered?: Yes Plan Anticipated Discharge: Assisted VS, I&O, 24H, [facility] Vital Signs/I&O Vital Signs Date Time Temp Pulse Resp B/P (MAP) Pulse Ox O2 Delivery O2 Flow Rate FiO2 08/07/19 05:56 97.9 84 20 153/91 (111) 95 Room Air I&O- Last 24 Hours up to 6 AM 08/07/19 06:00 Intake Total 1620 ml Output Total 1600 ml Balance 20 ml Laboratory Data 24H LABS Laboratory Tests 2 08/06/19 09:17: Prothrombin Time 15.9H, Prothromb Time International Ratio 1.30, Activated Partial Thromboplast Time 26.3 08/06/19 13:09: Bedside Glucose (Misc Panel) 125H 08/06/19 17:26: Bedside Glucose (Misc Panel) 194H 08/06/19 20:01: Bedside Glucose (Misc Panel) 237H 08/07/19 06:15: Nucleated Red Blood Cells % (auto) 0.0, Anion Gap 7L, Glomerular Filtration Rate 36.7L, Calcium Level 9.5 CBC/BMP Laboratory Tests 08/07/19 06:15 Rory Porter MD Aug 07, 2019 09:27
[2019-08-07 15:38] VITALS: BP 111/61
--- NOTE | 2019-08-07 15:59 | CR.PDOC ---
[facility] Pain Clinic Consultation General Date of Consultation: 08/07/19 Chief Complaint The patient is a 63-year-old female admitted with a reason for visit of Abdominal Pain. History of Present Illness 63 year old female in with complaints of abdominal and low back pain. At home the patient had been on Tramadol 50mg as needed for pain. Yesterday the patient was on 50mg Tramadol BID and reported it was ineffective in managing her pain. Home Medications Scheduled Buprenorphine (Butrans) 10 Mcg/Hr Patch.tdwk, 1 PATCH TOP 1XWK, (Reported) SHOULD BE TAKEN OFF TONIGHT Cetirizine HCl (Cetirizine HCl) 10 Mg Tablet, 10 MG PO DAILY, (Reported) Denosumab Injection (Prolia) 60 Mg/Ml Alicia, 60 MG SC ASDIRECTED EVERY 6 MONTHS Famotidine (Famotidine) 20 Mg Tablet, 20 MG PO QHS, (Reported) Ferrous Sulfate (Ferrous Sulfate) 325 Mg Tablet.dr, 325 MG PO DAILY, (Reported) Gabapentin (Gabapentin) 300 Mg Capsule, 600 MG PO BID, (Reported) Insulin Glargine,Hum.rec.anlog (Toujeo Solostar) 300 Unit/1 Ml Insuln.pen, 80 UNITS SC DAILY, (Reported) Insulin Glargine,Hum.rec.anlog (Toujeo Solostar) 300 Unit/1 Ml Insuln.pen, 70 UNIT SC QHS, (Reported) Lactulose (Lactulose) 10 Gm/15 Ml Solution, 30 ML PO BID, (Reported) Levothyroxine Sodium (Synthroid) 50 Mcg Tablet, 50 MCG PO DAILY, (Reported) Magnesium Oxide (Magnesium Oxide) 400 Mg Tablet, 400 MG PO DAILY, (Reported) Metolazone (Metolazone) 5 Mg Tablet, 5 MG PO DAILY, (Reported) Metoprolol Tartrate (Metoprolol Tartrate) 25 Mg Tablet, 25 MG PO BID, (Reported) Mineral Oil/Petrolatum,White (Hydrocerin Cream) 113 Gm Cream..g., 1 APPLIC TOP DAILY, (Reported) APPLY TO AFFECTED AREA Nystatin (Nystatin) 15 Gm Cream..g., 1 APPLIC TOP BID, (Reported) APPLIED TO AFFECTED AREA [place]-3/Dha/Epa/Fish Oil (Fish Oil 1,000 mg Softgel) 1 Each Capsule, 1 CAP PO DAILY, (Reported) Omeprazole (Omeprazole) 40 Mg Capsule.dr, 40 MG PO DAILY, (Reported) Potassium Chloride (Potassium Chloride) 10 Meq Capsule.er, 10 MEQ PO TID, (Reported) Rifaximin (Xifaxan) 550 Mg Tablet, 550 MG PO BID, (Reported) Spironolactone (Spironolactone) 50 Mg Tablet, 50 MG PO BID, (Reported) Tiotropium [place] (Spiriva) 18 Mcg Cap.w.dev, 1 CAP INH DAILY, (Reported) Torsemide (Torsemide) 10 Mg Tablet, 10 MG PO DAILY, (Reported) Scheduled PRN Docusate Sodium (Dok) 100 Mg Capsule, 100 MG PO DAILY PRN for CONSTIPATION, (Reported) Hydroxyzine HCl (Hydroxyzine HCl) 25 Mg Tablet, 25 MG PO TID PRN for ITCHING, (Reported) Milk Of Magnesia (Milk of Magnesia) 2,400 Mg/10 Ml Oral.susp, 10 ML PO DAILY PRN for CONSTIPATION, (Reported) Ondansetron HCl (Ondansetron HCl) 4 Mg Tablet, 4 MG PO Q6H PRN for NAUSEA OR VOMITING, (Reported) Tizanidine HCl (Tizanidine HCl) 4 Mg Tablet, 4 MG PO QID PRN for MUSCLE SPASMS, (Reported) Allergies Coded Allergies: Quinolones (Verified Allergy, Severe, HIVES, 07/27/19) Penicillins (Verified Allergy, Intermediate, HIVES, 07/27/19) ibuprofen (Verified Allergy, Intermediate, RASH, 07/27/19) Social History Social History Denies tobacco, alcohol, or illicit substance abuse. Review of Systems Subjective Constitutional: Reports: chills; Denies: fever HEENT: Reports: head aches; Denies: vision problems Pulmonary: Denies: shortness of breath, difficulty breathing Cardiovascular: Denies: chest pain Gastrointestinal: Reports: abdominal pain; Denies: constipation, diarrhea Musculoskeletal: Reports: other (Low back pain ) Neurological: Reports: headache Physical Examination Physical Examination Vital Signs/I&O Vital Signs Date Time Temp Pulse Resp B/P (MAP) Pulse Ox O2 Delivery O2 Flow Rate FiO2 08/07/19 09:22 18 Room Air 08/07/19 09:14 84 153/91 08/07/19 05:56 97.9 95 I&O- Last 24 Hours up to 6 AM 08/07/19 06:00 Intake Total 1620 ml Output Total 1600 ml Balance 20 ml General Exam: Positive: alert (Alert when spoke to noted to somnolent on exam ), cooperative Chest Exam: Positive: Clear to auscultation Heart Exam: Positive: Regular rate and rhythm Inspection of spine Tender lumbar spine, surrounding skin shows no erythema, ecchymosis, increased warmth, and/or skin eruptions. Laboratory Data Labs 24H Laboratory Tests 2 08/06/19 17:26: Bedside Glucose (Misc Panel) 194H 08/06/19 20:01: Bedside Glucose (Misc Panel) 237H 08/07/19 06:15: Nucleated Red Blood Cells % (auto) 0.0, Anion Gap 7L, Glomerular Filtration Rate 36.7L, Calcium Level 9.5 08/07/19 11:25: Bedside Glucose (Misc Panel) 247H CBC/BMP Laboratory Tests 08/07/19 06:15 FSBS Laboratory Tests Test 08/06/19 17:26 08/06/19 20:01 08/07/19 11:25 Range/Units Bedside Glucose (Misc Panel) 194 237 247 80-115 MG/DL Assessment Given presenting symptoms and results of physical examination recommend Morphine 15mg IR (IR as patient appeared somnolent on exam) BID as needed for pain and continued use of Xanaflex. Recommendation and Plan Thank you , for allowing us to participate in the care of your patient. Should you have any questions we will be glad to discuss this with you at any time please contact us here at the pain center at [phone]. LETTY RUCKER Aug 07, 2019 15:59
[2019-08-07 20:12] VITALS: BP 117/64
[2019-08-07] MEDS: FAMOTIDINE 20 MG TAB PO SCH (21:11)
[2019-08-07] MEDS: **NOTE PATIENT COMMENT** MISC XX SCH (21:13)
[2019-08-07] MEDS: ONDANSETRON 4 MG TAB (S0181) PO PRN (22:56)
[2019-08-08] MEDS: tiZANidine 4 MG TAB PO PRN ×3 (00:38→17:18)
[2019-08-08] MEDS: hydrOXYzine 25 MG TAB PO PRN ×2 (00:38→20:39)
[2019-08-08] MEDS: ACETAMINOPHEN TAB 650MG DOSE (2X325MG) PO PRN (03:34)
[2019-08-08] MEDS: LEVOTHYROXINE 50MCG TABLET (0.05MG) PO SCH (05:34)
[2019-08-08 06:00] VITALS: BP 123/83
[2019-08-08] MEDS: HumaLOG INSULIN (NovoLOG) PER UNIT SC SCH ×4 (07:30→21:00)
[2019-08-08 07:56] LABS: HEMATOCRIT 40.9 % (36.0-47.0); MEAN CORPUSCULAR HEMOGLOBIN 30.6 pg (27.0-33.0); MEAN CORPUSCULAR HGB CONC 31.8 g/dl (32.0-36.5); MEAN CORPUSCULAR VOLUME 96.2 fl (80.0-96.0); PLATELET COUNT, AUTOMATED 142 10^3/uL (150-450); RED BLOOD COUNT 4.25 10^6/uL (4.00-5.40); WHITE BLOOD COUNT 5.9 10^3/uL (4.0-10.0)
[2019-08-08] MEDS: TIOTROPIUM INHALER/CAPSULE (SPIRIVA) INH SCH ×2 (08:00→14:02)
[2019-08-08] MEDS ORDERED: MORPHINE 30 MG TAB **MSIR PO SCH (09:00)
[2019-08-08 09:03] LABS: ALBUMIN 2.5 GM/DL (3.2-5.2); BILIRUBIN,TOTAL 0.9 MG/DL (0.2-1.0); CALCIUM LEVEL 8.9 MG/DL (8.8-10.2); CREATININE FOR GFR 1.36 MG/DL (0.55-1.30); GLOMERULAR FILTRATION RATE 41.7 (>45); POTASSIUM SERUM 3.6 MEQ/L (3.5-5.1); TOTAL PROTEIN 7.5 GM/DL (6.4-8.2)
[2019-08-08] MEDS: ENOXAPARIN 30 MG/0.3 ML SYR (J1650) SC SCH (09:25)
[2019-08-08] MEDS: LIDOCAINE 5% (LIDODERM) PATCH TD SCH (09:26)
[2019-08-08] MEDS: GABAPENTIN 300 MG CAP PO SCH ×2 (09:26→20:32)
[2019-08-08] MEDS: OMEPRAZOLE 20 MG CAP PO SCH (09:26)
[2019-08-08] MEDS: DULoxetine 30 MG CAP (CYMBALTA) PO SCH (09:26)
[2019-08-08] MEDS: TORSEMIDE 10 MG TABLET PO SCH (09:27)
[2019-08-08] MEDS: rifAXIMin 550 MG TAB (XIFAXAN) PO SCH ×2 (09:27→20:33)
[2019-08-08] MEDS: METOPROLOL TART 25 MG TABLET PO SCH ×2 (09:27→20:33)
[2019-08-08] MEDS: MAGNESIUM OXIDE 400 MG TAB (MAG-OX) PO SCH ×2 (09:27→20:32)
[2019-08-08] MEDS: metOLazone 2.5 MG TAB PO SCH (09:27)
[2019-08-08] MEDS: OMEGA-3 1000MG CAPSULE PO SCH (09:27)
[2019-08-08] MEDS: CETIRIZINE (ZyrTEC) 10 MG TAB PO SCH (09:27)
[2019-08-08] MEDS: POTASSIUM CHLORIDE 10 MEQ SR TABLET PO SCH ×3 (09:27→20:33)
[2019-08-08] MEDS: CLOTRIMAZOLE 1% TOPICAL CREAM 30GM TOP SCH ×2 (09:28→20:34)
[2019-08-08] MEDS: SPIRONOLACTONE 50 MG TAB PO SCH ×2 (09:28→20:32)
[2019-08-08] MEDS: HYDROCORTISONE 1% CREAM 30 GM TOP SCH (09:28)
[2019-08-08] MEDS: CLINDAMYCIN TOP 1% SOLN 60 ML BTL TOP SCH ×2 (09:28→20:33)
[2019-08-08] MEDS: DOXYCYCLINE HYCLATE 100 MG TAB PO SCH ×2 (09:28→20:32)
[2019-08-08] MEDS: FERROUS SULFATE 325MG TAB PO SCH (09:28)
[2019-08-08] MEDS: NYSTATIN CREAM 15 GM TOP SCH ×2 (09:29→20:34)
[2019-08-08] MEDS: LEVEMIR (INSULIN DETEMIR) 1 UNITS/0.01ML SC SCH ×2 (09:29→21:55)
[2019-08-08] MEDS: LACTULOSE 20 GM/30 ML SYRUP UD PO SCH ×2 (09:29→20:32)
[2019-08-08] MEDS: ONDANSETRON 4 MG TAB (S0181) PO PRN (10:16)
[2019-08-08] MEDS: MORPHINE 30 MG TAB **MSIR PO PRN ×2 (10:17→20:39)
[2019-08-08] MEDS ORDERED: MAG SULF 1GM/100ML (MAG RUN) 1 GM in IV 1 EA IV ONE ×2 (13:00→17:00)
--- NOTE | 2019-08-08 13:31 | IPNPDOC ---
Subjective Date Seen The patient was seen on 08/08/19. Subjective Chief Complaint/HPI still reports inadequate pain control but was dozing and looked comfortable on approach Constitutional: Denies: Chills ENT: Denies: Head Aches Skin: Reports: Other (no reported leg pain and no reported pain at abdominal skin.) Pulmonary: Denies: Dyspnea Cardiovascular: Denies: Palpitations Gastrointestinal: Denies: Nausea, Abdominal Pain Genitourinary: Denies: Dysuria Hematologic: Denies: Bruising Endocrine: Denies: Polydipsia Neurological: Denies: Weakness, Numbness Psych: Reports: Mood Normal Objective Physical Examination General Exam: Positive: Alert, Cooperative Eye Exam: Positive: PERRLA; Negative: EOMI ENT Exam: Positive: Atraumatic Chest Exam: Positive: Clear to auscultation Heart Exam: Positive: Rate Normal, Regular Rhythm Abdomen Exam: Positive: Normal bowel sounds, Soft; Negative: Tenderness Extremity Exam: Positive: Normal pulses (DP pulses are strong bilaterally. ) Skin Exam: Positive: Other skin issue (abdominal skin now near normal appearance. still open lesion right irving.) Neuro Exam: Positive: Normal Speech, Sensation Intact Psych Exam: Positive: Mental status NL Assessment /Plan Problems (1) Venous stasis dermatitis of both lower extremities Status: Chronic Problem Text: 08/08 stable. 08/07: improvement noted. 08/06: right irving is tender, somewhat indurated. cultures not useful from chronic surface wounds, will treat empirically with doxy for now. request Broomcorn Press Feeder from PT. May benefit from Unna boots (2) Cellulitis of abdominal wall Status: Chronic Problem Text: 08/08 continued improvement. 08/07 significant improvement in redness, also less weeping. very red, indurated, fissuring. will Rx for topical antibiotic (if tolerated) and antifungal. add doxy po (3) Low back pain Status: Chronic Problem Text: 08/08 appreciate input from Pain Clinic PAINTER BARREL. Suggested change to IR morphine which is reasonable since her liver disease will prolong effect of morphine due to slower clearance. Monitor for effect, balancing pain control requirements vs sedation. Challenging considering her chronic liver disease related hyperammonemia, psychotropic use, etc. 08/07: CT reviewed: L5 30% compression deformity of uncertain age, probably not recent, disc disease L2/3. No help from lidoderm patient believed that she had imaging done in [place] in past 6 mos but [facility] showed no evidence of back imaging having been done with the past year. Will request CT lumbar spine Had been on Tramadol at 50 tid, but recently switched to Butrans patch which she affirmed was not helping her pain. So will resume Tramadol at 50 bid (safe limit for Chronic liver disease patient). If not adequate and no different path suggested by Lumbar imaging then consider pain specialty consult. (4) Cirrhosis Status: Chronic Response to Treatment: Stable Problem Specific Plan: Monitor Clinically Problem Text: 08/07: PT slightly elevated but not enough to provide DVT pr ophylaxis. Will require continuation of ammonia control agents and caution with use of pain meds. will check PT/PTT to further gauge liver function. Etiology appears to be NAFLD. (5) Morbid obesity Status: Chronic Response to Treatment: Stable Problem Specific Plan: Monitor Clinically Problem Text: patient been at rehab facility in [place] and was discharged home but clearly not thriving independently and seems like she should be NH. Long discussion with daughter who reports that Pat had told her that the Doctor's office had told her that she had end stage liver disease and that she should consider Hospice. There is nothing in the last few office visit notes resembling this discussion. What had happened was decision to stop tramadol and replace it with Butrans (which patient reported wasn't working) and refer her to Dr. Preston (appt scheduled for 08/14/19) (6) T2DM (type 2 diabetes mellitus) Status: Chronic Response to Treatment: Stable Problem Text: 08/08 daytime glucoses are a little high, consider increase in daytime Levemir dose. continue current insulin schedule. (7) Stage III chronic kidney disease Status: Chronic Response to Treatment: Worse Problem Text: 08/08: improving, no increase edema yet, with reduction of metolazone dose. likely secondary to diabetes and need to use diuretics to control cirrhosis related edema. creatinine up a little from admission, will reduce metolazone dose. if climbing again will need to hold diuretics briefly. (8) Diastolic CHF Status: Resolved Response to Treatment: Stable Problem Text: This diagnosis may not be valid. Echo from [address] Betts showed normal EF at 65% and no diastolic dysfunction and minimal age related valvular changes. Plan/VTE VTE Prophylaxis Ordered?: Yes Plan Anticipated Discharge: Residential (patient is not receptive to this idea but would likely not be safe for her to use narcotic analgesics in unsupervised setting. memory lapses from hepatic encephalopathy and med effects could easily result in dosing errors) VS, I&O, 24H, Fishbone Vital Signs/I&O Vital Signs Date Time Temp Pulse Resp B/P (MAP) Pulse Ox O2 Delivery O2 Flow Rate FiO2 08/08/19 10:47 18 08/08/19 09:27 88 123/83 08/08/19 06:00 97.9 96 Room Air I&O- Last 24 Hours up to 6 AM 08/08/19 06:00 Intake Total 2820 ml Balance 2820 ml Laboratory Data 24H LABS Laboratory Tests 2 08/07/19 16:53: Bedside Glucose (Misc Panel) 215H 08/07/19 20:36: Bedside Glucose (Misc Panel) 217H 08/08/19 07:43: Nucleated Red Blood Cells % (auto) 0.0, Anion Gap 6L, Glomerular Filtration Rate 41.7L, Calcium Level 8.9, Magnesium Level 1.0L, Total Bilirubin 0.9, Aspartate Amino Transf (AST/SGOT) 69H, Alanine Aminotransferase (ALT/SGPT) 32, Alkaline Phosphatase 126H, Total Protein 7.5, Albumin 2.5L, Albumin/Globulin Ratio 0.50L 08/08/19 11:47: Bedside Glucose (Misc Panel) 142H CBC/BMP Laboratory Tests 08/08/19 07:43 Rory Porter MD Aug 08, 2019 13:31
[2019-08-08 14:00] VITALS: BP 117/62
[2019-08-08] MEDS: FAMOTIDINE 20 MG TAB PO SCH (20:32)
[2019-08-08] MEDS: **NOTE PATIENT COMMENT** MISC XX SCH (20:34)
[2019-08-08 22:00] VITALS: BP 136/77
[2019-08-09] MEDS: hydrOXYzine 25 MG TAB PO PRN ×2 (05:02→22:24)
[2019-08-09] MEDS: LEVOTHYROXINE 50MCG TABLET (0.05MG) PO SCH (05:02)
[2019-08-09] MEDS: tiZANidine 4 MG TAB PO PRN ×3 (05:02→22:24)
[2019-08-09 06:00] VITALS: BP 126/61
[2019-08-09 07:03] LABS: HEMOGLOBIN 13.5 g/dl (12.0-15.5); MEAN CORPUSCULAR HEMOGLOBIN 30.8 pg (27.0-33.0); MEAN CORPUSCULAR HGB CONC 32.1 g/dl (32.0-36.5); MEAN CORPUSCULAR VOLUME 95.7 fl (80.0-96.0); PLATELET COUNT, AUTOMATED 149 10^3/uL (150-450); RED BLOOD COUNT 4.39 10^6/uL (4.00-5.40); WHITE BLOOD COUNT 5.4 10^3/uL (4.0-10.0)
[2019-08-09] MEDS: HumaLOG INSULIN (NovoLOG) PER UNIT SC SCH ×5 (07:30→22:25)
[2019-08-09] MEDS: TIOTROPIUM INHALER/CAPSULE (SPIRIVA) INH SCH (07:41)
[2019-08-09 07:47] LABS: ALBUMIN 2.6 GM/DL (3.2-5.2); BILIRUBIN,TOTAL 1.4 MG/DL (0.2-1.0); CALCIUM LEVEL 8.4 MG/DL (8.8-10.2); CREATININE FOR GFR 1.49 MG/DL (0.55-1.30); GLOMERULAR FILTRATION RATE 37.5 (>45); POTASSIUM SERUM 3.3 MEQ/L (3.5-5.1); TOTAL PROTEIN 7.7 GM/DL (6.4-8.2)
[2019-08-09] MEDS: CLINDAMYCIN TOP 1% SOLN 60 ML BTL TOP SCH ×2 (08:18→22:25)
[2019-08-09] MEDS: NYSTATIN CREAM 15 GM TOP SCH ×2 (08:19→22:26)
[2019-08-09] MEDS: CLOTRIMAZOLE 1% TOPICAL CREAM 30GM TOP SCH ×2 (08:19→22:26)
[2019-08-09] MEDS: ENOXAPARIN 30 MG/0.3 ML SYR (J1650) SC SCH (08:19)
[2019-08-09] MEDS: HYDROCORTISONE 1% CREAM 30 GM TOP SCH ×2 (08:19→22:26)
[2019-08-09] MEDS: MAGNESIUM OXIDE 400 MG TAB (MAG-OX) PO SCH ×2 (08:20→22:23)
[2019-08-09] MEDS: DULoxetine 30 MG CAP (CYMBALTA) PO SCH (08:20)
[2019-08-09] MEDS: rifAXIMin 550 MG TAB (XIFAXAN) PO SCH ×2 (08:20→22:23)
[2019-08-09] MEDS: CETIRIZINE (ZyrTEC) 10 MG TAB PO SCH (08:20)
[2019-08-09] MEDS: OMEGA-3 1000MG CAPSULE PO SCH (08:20)
[2019-08-09] MEDS: GABAPENTIN 300 MG CAP PO SCH ×2 (08:20→22:23)
[2019-08-09] MEDS: LIDOCAINE 5% (LIDODERM) PATCH TD SCH (08:20)
[2019-08-09] MEDS: DOXYCYCLINE HYCLATE 100 MG TAB PO SCH ×2 (08:20→22:24)
[2019-08-09] MEDS: TORSEMIDE 10 MG TABLET PO SCH (08:21)
[2019-08-09] MEDS: metOLazone 2.5 MG TAB PO SCH (08:21)
[2019-08-09] MEDS: POTASSIUM CHLORIDE 10 MEQ SR TABLET PO SCH ×3 (08:21→22:23)
[2019-08-09] MEDS: OMEPRAZOLE 20 MG CAP PO SCH (08:21)
[2019-08-09] MEDS: FERROUS SULFATE 325MG TAB PO SCH (08:21)
[2019-08-09] MEDS: METOPROLOL TART 25 MG TABLET PO SCH ×2 (08:22→22:24)
[2019-08-09] MEDS: LEVEMIR (INSULIN DETEMIR) 1 UNITS/0.01ML SC SCH ×2 (08:22→22:22)
[2019-08-09] MEDS: SPIRONOLACTONE 50 MG TAB PO SCH ×2 (08:22→22:24)
[2019-08-09] MEDS: LACTULOSE 20 GM/30 ML SYRUP UD PO SCH ×2 (08:22→22:22)
[2019-08-09] MEDS ORDERED: MORPHINE 30 MG TAB **MSIR PO PRN (09:00)
[2019-08-09] MEDS ORDERED: POTASSIUM CHLORIDE 10 MEQ SR TABLET PO ONE (09:15)
[2019-08-09 09:31] LABS: MAGNESIUM LEVEL 1.4 MG/DL (1.8-2.4)
--- NOTE | 2019-08-09 09:45 | IPNPDOC ---
Subjective Date Seen The patient was seen on 08/09/19. Subjective Chief Complaint/HPI pain continues; improved by med but not always available when she asks for it. currently written as q12hrs, prn. She acknowledges now that the Butrans 10mcg patch had been helpful since she noticed increase in pain when she stopped using it. So she is interested in using this med again to enable adequate benson control when she goes home. She is advised that she can't go home with orally administered narcotic analgesics due to concern about sedation. She would like to try Butrans again,UNFORTUNATELY THIS AGENT IS NOT AVAILABLE FROM OUR [facility]. Constitutional: Denies: Chills ENT: Denies: Head Aches Skin: Reports: Rash (abdomen, itching some.) Pulmonary: Denies: Dyspnea Cardiovascular: Denies: Chest Pain, Palpitations Gastrointestinal: Denies: Nausea Hematologic: Denies: Bruising Musculoskeletal: Reports: Back Pain (chronic) Psych: Reports: Mood Normal Objective Physical Examination General Exam: Positive: Alert, Cooperative Eye Exam: Positive: PERRLA; Negative: EOMI ENT Exam: Positive: Atraumatic Chest Exam: Positive: Clear to auscultation Heart Exam: Positive: Rate Normal, Regular Rhythm Abdomen Exam: Positive: Normal bowel sounds, Soft; Negative: Tenderness Extremity Exam: Positive: Normal pulses (DP pulses are strong bilaterally. ) Skin Exam: Positive: Other skin issue (somewhat redder today with evidence of excoriation. she does admit to itching.) Neuro Exam: Positive: Normal Speech, Sensation Intact Psych Exam: Positive: Mental status NL Assessment /Plan Problems (1) Cirrhosis Status: Chronic Response to Treatment: Stable Problem Specific Plan: Monitor Clinically Problem Text: 08/07: PT slightly elevated but not enough to provide DVT prophylaxis. Will require continuation of ammonia control agents and caution with use of pain meds. will check PT/PTT to further gauge liver function. Etiology appears to be NAFLD. (2) Cellulitis of abdominal wall Status: Chronic Problem Text: 08/09 excoriations creating injury and risk for worsening. will add topical HC 1% cream, encourage nurses to offer hydroxyzine which is ordered. 08/08 continued improvement. 08/07 significant improvement in redness, also less weeping. very red, indurated, fissuring. will Rx for topical antibiotic (if tolerated) and antifungal. add doxy po (3) Venous stasis dermatitis of both lower extremities Status: Chronic Problem Text: 08/08 stable. 08/07: improvement noted. 08/06: right irving is tender, somewhat indurated. cultures not useful from chronic surface wounds, will treat empirically with doxy for now. request Tankroom Worker from PT. May benefit from Unna boots (4) Low back pain Status: Chronic Problem Text: 08/09 Patient would like to try butrans again but not available. will see if daughter can bring in product from home for pharmacy to ID for use. Otherwise she could get Rx at pharmacy again to bring in. 08/08 appreciate input from Pain Clinic JUNIOR ACCOUNTANT. Suggested change to IR morphine which is reasonable since her liver disease will prolong effect of morphine due to slower clearance. Monitor for effect, balancing pain control requirements vs sedation. Challenging considering her chronic liver disease related hyperammonemia, psychotropic use, etc. 08/07: CT reviewed: L5 30% compression deformity of uncertain age, probably not recent, disc disease L2/3. No help from lidoderm patient believed that she had imaging done in [place] in past 6 mos but search of [employer] showed no evidence of back imaging having been done with the past year. Will request CT lumbar spine Had been on Tramadol at 50 tid, but recently switched to Butrans patch which she affirmed was not helping her pain. So will resume Tramadol at 50 bid (safe limit for Chronic liver disease patient). If not adequate and no different path suggested by Lumbar imaging then consider pain specialty consult. (5) Morbid obesity Status: Chronic Response to Treatment: Stable Problem Specific Plan: Monitor Clinically Problem Text: 08/09: patient opposed to idea of placement. patient been at rehab facility in [place] and was discharged home but clearly not thriving independently and seems like she should be NH. Long discussion with daughter who reports that Pat had told her that the Doctor's office had told her that she had end stage liver disease and that she should consider Hospice. There is nothing in the last few office visit notes resembling this discussion. What had happened was decision to stop tramadol and replace it with Butrans (which patient reported wasn't working) and refer her to Dr. Preston (appt scheduled for 08/14/19) (6) T2DM (type 2 diabetes mellitus) Status: Chronic Response to Treatment: Stable Problem Specific Plan: Monitor Clinically Problem Text: 08/08 daytime glucoses are a little high, consider increase in daytime Levemir dose. continue current insulin schedule. (7) Stage III chronic kidney disease Status: Chronic Response to Treatment: Stable Problem Text: 08/09 creatinine slightly higher today. 08/08: improving, no increase edema yet, with reduction of metolazone dose. likely secondary to diabetes and need to use diuretics to control cirrhosis related edema. creatinine up a little from admission, will reduce metolazone dose. if climbing again will need to hold diuretics briefly. (8) Diastolic CHF Status: Resolved Response to Treatment: Stable Problem Text: This diagnosis may not be valid. Echo from [address] Betts showed normal EF at 65% and no diastolic dysfunction and minimal age related valvular changes. Plan/VTE VTE Prophylaxis Ordered?: Yes Plan Anticipated Discharge: Group Home ( if she does return home then she should not have narcotic oral meds due to hazard of unintentional overdose due to memory impairment.), Psych VS, I&O, 24H, Fishbone Vital Signs/I&O Vital Signs Date Time Temp Pulse Resp B/P (MAP) Pulse Ox O2 Delivery O2 Flow Rate FiO2 08/09/19 08:22 66 126/61 08/09/19 06:00 98.4 18 92 Room Air I&O- Last 24 Hours up to 6 AM 08/09/19 06:00 Intake Total 0 ml Output Total 2600 ml Balance -2600 ml Laboratory Data 24H LABS Laboratory Tests 2 08/08/19 11:47: Bedside Glucose (Misc Panel) 142H 08/08/19 17:22: Bedside Glucose (Misc Panel) 91 08/08/19 21:31: Bedside Glucose (Misc Panel) 123H 08/09/19 06:45: Nucleated Red Blood Cells % (auto) 0.0, Anion Gap 5L, Glomerular Filtration Rate 37.5L, Calcium Level 8.4L, Magnesium Level 1.4L, Total Bilirubin 1.4#H, Aspartate Amino Transf (AST/SGOT) 142H, Alanine Aminotransferase (ALT/SGPT) 66, Alkaline Phosphatase 172H, Total Protein 7.7, Albumin 2.6L, Albumin/Globulin Ratio 0.51L CBC/BMP Laboratory Tests 08/09/19 06:45 Rory Porter MD Aug 09, 2019 09:45
[2019-08-09 14:12] VITALS: BP 100/50
[2019-08-09 22:00] VITALS: BP 112/55
[2019-08-09] MEDS: FAMOTIDINE 20 MG TAB PO SCH (22:23)
[2019-08-09] MEDS: **NOTE PATIENT COMMENT** MISC XX SCH (22:27)
[2019-08-10] MEDS: ONDANSETRON 4 MG TAB (S0181) PO PRN (00:27)
[2019-08-10 06:00] VITALS: BP 115/65
[2019-08-10] MEDS: LEVOTHYROXINE 50MCG TABLET (0.05MG) PO SCH (06:46)
[2019-08-10] MEDS: TIOTROPIUM INHALER/CAPSULE (SPIRIVA) INH SCH (07:26)
[2019-08-10 07:30] LABS: HEMOGLOBIN 14.3 g/dl (12.0-15.5); MEAN CORPUSCULAR HEMOGLOBIN 30.6 pg (27.0-33.0); MEAN CORPUSCULAR HGB CONC 31.8 g/dl (32.0-36.5); MEAN CORPUSCULAR VOLUME 96.2 fl (80.0-96.0); PLATELET COUNT, AUTOMATED 170 10^3/uL (150-450); RED BLOOD COUNT 4.68 10^6/uL (4.00-5.40); WHITE BLOOD COUNT 5.3 10^3/uL (4.0-10.0)
[2019-08-10] MEDS: HumaLOG INSULIN (NovoLOG) PER UNIT SC SCH ×4 (07:30→21:57)
[2019-08-10 07:53] LABS: ALBUMIN 2.7 GM/DL (3.2-5.2); BILIRUBIN,TOTAL 0.7 MG/DL (0.2-1.0); CALCIUM LEVEL 8.8 MG/DL (8.8-10.2); CREATININE FOR GFR 1.6 MG/DL (0.55-1.30); GLOMERULAR FILTRATION RATE 34.5 (>45); POTASSIUM SERUM 3.6 MEQ/L (3.5-5.1); TOTAL PROTEIN 8.3 GM/DL (6.4-8.2)
[2019-08-10] MEDS ORDERED: BUPRENORPHINE 10 MCG/HR TD SCH (09:00)
[2019-08-10] MEDS: LIDOCAINE 5% (LIDODERM) PATCH TD SCH (09:34)
[2019-08-10] MEDS: LEVEMIR (INSULIN DETEMIR) 1 UNITS/0.01ML SC SCH ×2 (09:35→20:33)
[2019-08-10] MEDS: LACTULOSE 20 GM/30 ML SYRUP UD PO SCH ×2 (09:35→20:31)
[2019-08-10] MEDS: ENOXAPARIN 30 MG/0.3 ML SYR (J1650) SC SCH (09:35)
[2019-08-10] MEDS: GABAPENTIN 300 MG CAP PO SCH ×2 (09:36→20:32)
[2019-08-10] MEDS: metOLazone 2.5 MG TAB PO SCH (09:36)
[2019-08-10] MEDS: rifAXIMin 550 MG TAB (XIFAXAN) PO SCH ×2 (09:36→20:32)
[2019-08-10] MEDS: POTASSIUM CHLORIDE 10 MEQ SR TABLET PO SCH ×3 (09:36→20:32)
[2019-08-10] MEDS: OMEPRAZOLE 20 MG CAP PO SCH (09:36)
[2019-08-10] MEDS: TORSEMIDE 10 MG TABLET PO SCH (09:37)
[2019-08-10] MEDS: SPIRONOLACTONE 50 MG TAB PO SCH ×2 (09:37→20:31)
[2019-08-10] MEDS: DULoxetine 30 MG CAP (CYMBALTA) PO SCH (09:37)
[2019-08-10] MEDS: MAGNESIUM OXIDE 400 MG TAB (MAG-OX) PO SCH ×2 (09:37→20:32)
[2019-08-10] MEDS: OMEGA-3 1000MG CAPSULE PO SCH (09:38)
[2019-08-10] MEDS: METOPROLOL TART 25 MG TABLET PO SCH ×2 (09:38→20:32)
[2019-08-10] MEDS: FERROUS SULFATE 325MG TAB PO SCH (09:38)
[2019-08-10] MEDS: DOXYCYCLINE HYCLATE 100 MG TAB PO SCH ×3 (09:38→20:31)
[2019-08-10] MEDS: CLINDAMYCIN TOP 1% SOLN 60 ML BTL TOP SCH ×2 (09:39→20:33)
[2019-08-10] MEDS: CLOTRIMAZOLE 1% TOPICAL CREAM 30GM TOP SCH ×2 (09:40→20:33)
[2019-08-10] MEDS: NYSTATIN CREAM 15 GM TOP SCH ×2 (09:40→20:34)
[2019-08-10 14:00] VITALS: BP 145/80
[2019-08-10] MEDS: tiZANidine 4 MG TAB PO PRN ×2 (16:25→23:05)
--- NOTE | 2019-08-10 17:54 | DSES ---
DATE OF ADMISSION: 08/08/2019 DATE OF DISCHARGE: PRIMARY CARE PROVIDER: Dr. Paul Torres ATTENDING PHYSICIAN: Dr. Paul Torres HISTORY OF PRESENT ILLNESS: A 63-year-old female who presented to [facility] Emergency Department (ED) for complaints of back, leg, and foot pain. She felt that this was secondary to her pain medications being stopped. The pain became so extreme that the patient had difficulty tolerating even standing. Per ED and history and physical documentation from the hospitalist, the patient's daughter is declining to take her home. The patient has a noted abdominal wall cellulitis for which she is taking oral clindamycin which is showing improvement. She has been given some pain medications with some improvement and we plan on resuming the patient's Butrans patch today which did provide good improvement in the past. The patient is continuing on all of her routine medications. Vital signs have remained stable. Electrolytes are stable. Blood count is stable and showing no anemia. PHYSICAL EXAMINATION: Today, the patient does appear to be uncomfortable. Per physical therapy (PT), the patient does have limited mobility secondary to her pain. At this point, he is recommending rehabilitation versus long-term care. DISCHARGE DIAGNOSES: 1. Chronic pain to the lower back and bilateral lower extremities. 2. Schizophrenia. 3. Hypothyroidism. 4. Chronic kidney disease, stage III. 5. Chronic hypertension. 6. Insulin-dependent diabetes. 7. Dyslipidemia. 8. Peripheral artery disease. 9. Morbid obesity with a body mass index (BMI) of 46.9. 10. Abdominal wall cellulitis. PLAN: The patient will be transitioned to care home facility (SNF)/alternate level of care (ALC) status while we determine her disposition and continue with improving her mobility. Medications and further disposition will be documented at time of discharge.
[2019-08-10] MEDS: FAMOTIDINE 20 MG TAB PO SCH (20:31)
[2019-08-10] MEDS: **NOTE PATIENT COMMENT** MISC XX SCH (20:34)
[2019-08-10 20:35] VITALS: BP 145/80
[2019-08-10] MEDS ORDERED: ACETAMINOPHEN 500 MG TAB PO PRN (21:00)
[2019-08-11] MEDS: NORCO, ANEXSIA 5/325MG TABLET (HYDROcodone/ACETAMINOPHEN) PO PRN ×4 (02:51→21:57)
[2019-08-11 06:19] LABS: HEMATOCRIT 44.2 % (36.0-47.0); HEMOGLOBIN 14.1 g/dl (12.0-15.5); MEAN CORPUSCULAR HEMOGLOBIN 30.7 pg (27.0-33.0); MEAN CORPUSCULAR HGB CONC 31.9 g/dl (32.0-36.5); MEAN CORPUSCULAR VOLUME 96.1 fl (80.0-96.0); PLATELET COUNT, AUTOMATED 162 10^3/uL (150-450); WHITE BLOOD COUNT 5.3 10^3/uL (4.0-10.0)
[2019-08-11 06:39] VITALS: BP 138/75
[2019-08-11 06:55] LABS: ALBUMIN 2.5 GM/DL (3.2-5.2); BILIRUBIN,TOTAL 0.5 MG/DL (0.2-1.0); CALCIUM LEVEL 8.7 MG/DL (8.8-10.2); CREATININE FOR GFR 1.48 MG/DL (0.55-1.30); GLOMERULAR FILTRATION RATE 37.8 (>45); POTASSIUM SERUM 3.6 MEQ/L (3.5-5.1); TOTAL PROTEIN 8.2 GM/DL (6.4-8.2)
[2019-08-11] MEDS: LEVOTHYROXINE 50MCG TABLET (0.05MG) PO SCH (06:56)
[2019-08-11] MEDS: TIOTROPIUM INHALER/CAPSULE (SPIRIVA) INH SCH (07:41)
[2019-08-11] MEDS: LACTULOSE 20 GM/30 ML SYRUP UD PO SCH ×2 (08:22→21:58)
[2019-08-11] MEDS: ENOXAPARIN 30 MG/0.3 ML SYR (J1650) SC SCH (08:22)
[2019-08-11] MEDS: GABAPENTIN 300 MG CAP PO SCH ×2 (08:22→21:56)
[2019-08-11] MEDS: METOPROLOL TART 25 MG TABLET PO SCH ×2 (08:22→21:58)
[2019-08-11] MEDS: TORSEMIDE 10 MG TABLET PO SCH (08:22)
[2019-08-11] MEDS: rifAXIMin 550 MG TAB (XIFAXAN) PO SCH ×2 (08:22→21:58)
[2019-08-11] MEDS: OMEGA-3 1000MG CAPSULE PO SCH (08:23)
[2019-08-11] MEDS: MAGNESIUM OXIDE 400 MG TAB (MAG-OX) PO SCH ×2 (08:23→21:57)
[2019-08-11] MEDS: SPIRONOLACTONE 50 MG TAB PO SCH ×2 (08:23→21:56)
[2019-08-11] MEDS: DULoxetine 30 MG CAP (CYMBALTA) PO SCH (08:24)
[2019-08-11] MEDS: metOLazone 2.5 MG TAB PO SCH (08:24)
[2019-08-11] MEDS: HumaLOG INSULIN (NovoLOG) PER UNIT SC SCH ×4 (08:24→21:00)
[2019-08-11] MEDS: POTASSIUM CHLORIDE 10 MEQ SR TABLET PO SCH ×3 (08:24→21:58)
[2019-08-11] MEDS: FERROUS SULFATE 325MG TAB PO SCH (08:24)
[2019-08-11] MEDS: DOXYCYCLINE HYCLATE 100 MG TAB PO SCH ×2 (08:24→21:57)
[2019-08-11] MEDS: OMEPRAZOLE 20 MG CAP PO SCH (08:24)
[2019-08-11] MEDS: HYDROCORTISONE 1% CREAM 30 GM TOP SCH (08:25)
[2019-08-11] MEDS: LEVEMIR (INSULIN DETEMIR) 1 UNITS/0.01ML SC SCH ×2 (08:25→21:59)
[2019-08-11] MEDS: LIDOCAINE 5% (LIDODERM) PATCH TD SCH (08:25)
[2019-08-11] MEDS: CLINDAMYCIN TOP 1% SOLN 60 ML BTL TOP SCH ×2 (08:26→21:59)
[2019-08-11] MEDS: CLOTRIMAZOLE 1% TOPICAL CREAM 30GM TOP SCH ×2 (08:26→22:00)
[2019-08-11] MEDS: NYSTATIN CREAM 15 GM TOP SCH ×2 (08:27→21:00)
[2019-08-11 14:00] VITALS: BP 164/69
[2019-08-11 20:36] VITALS: BP 164/80
[2019-08-11] MEDS: FAMOTIDINE 20 MG TAB PO SCH (21:56)
[2019-08-11] MEDS: tiZANidine 4 MG TAB PO PRN (21:58)
[2019-08-11] MEDS: hydrOXYzine 25 MG TAB PO PRN (21:58)
[2019-08-11] MEDS: **NOTE PATIENT COMMENT** MISC XX SCH (22:00)
[2019-08-12] MEDS: LEVOTHYROXINE 50MCG TABLET (0.05MG) PO SCH (05:29)
[2019-08-12 06:00] VITALS: BP 138/71
[2019-08-12] MEDS: NORCO, ANEXSIA 5/325MG TABLET (HYDROcodone/ACETAMINOPHEN) PO PRN ×3 (06:27→20:40)
[2019-08-12] MEDS: hydrOXYzine 25 MG TAB PO PRN ×2 (06:28→18:54)
[2019-08-12] MEDS: tiZANidine 4 MG TAB PO PRN ×2 (06:28→18:54)
[2019-08-12 06:48] LABS: HEMATOCRIT 46.9 % (36.0-47.0); HEMOGLOBIN 15.1 g/dl (12.0-15.5); MEAN CORPUSCULAR HEMOGLOBIN 30.6 pg (27.0-33.0); MEAN CORPUSCULAR HGB CONC 32.2 g/dl (32.0-36.5); MEAN CORPUSCULAR VOLUME 95.1 fl (80.0-96.0); PLATELET COUNT, AUTOMATED 187 10^3/uL (150-450); RED BLOOD COUNT 4.93 10^6/uL (4.00-5.40); WHITE BLOOD COUNT 5.6 10^3/uL (4.0-10.0)
[2019-08-12 07:23] LABS: ALBUMIN 2.7 GM/DL (3.2-5.2); BILIRUBIN,TOTAL 0.4 MG/DL (0.2-1.0); CALCIUM LEVEL 9.3 MG/DL (8.8-10.2); CREATININE FOR GFR 1.69 MG/DL (0.55-1.30); GLOMERULAR FILTRATION RATE 32.4 (>45); POTASSIUM SERUM 3.8 MEQ/L (3.5-5.1); TOTAL PROTEIN 8.8 GM/DL (6.4-8.2)
[2019-08-12 08:40] VITALS: BP 130/80
[2019-08-12] MEDS: TIOTROPIUM INHALER/CAPSULE (SPIRIVA) INH SCH (08:44)
[2019-08-12] MEDS: TORSEMIDE 10 MG TABLET PO SCH (09:28)
[2019-08-12] MEDS: rifAXIMin 550 MG TAB (XIFAXAN) PO SCH ×2 (09:28→20:39)
[2019-08-12] MEDS: FERROUS SULFATE 325MG TAB PO SCH (09:28)
[2019-08-12] MEDS: DOXYCYCLINE HYCLATE 100 MG TAB PO SCH ×2 (09:28→20:40)
[2019-08-12] MEDS: POTASSIUM CHLORIDE 10 MEQ SR TABLET PO SCH ×3 (09:29→20:40)
[2019-08-12] MEDS: GABAPENTIN 300 MG CAP PO SCH ×2 (09:30→20:38)
[2019-08-12] MEDS: METOPROLOL TART 25 MG TABLET PO SCH ×2 (09:30→20:39)
[2019-08-12] MEDS ORDERED: ALBUTEROL SULFATE 2.5 MG/0.5 ML INH NEB SOLN NEB PRN (09:30)
[2019-08-12] MEDS: LACTULOSE 20 GM/30 ML SYRUP UD PO SCH ×2 (09:31→20:39)
[2019-08-12] MEDS: metOLazone 2.5 MG TAB PO SCH (09:31)
[2019-08-12] MEDS: OMEGA-3 1000MG CAPSULE PO SCH (09:31)
[2019-08-12] MEDS: DULoxetine 30 MG CAP (CYMBALTA) PO SCH (09:31)
[2019-08-12] MEDS: SPIRONOLACTONE 50 MG TAB PO SCH ×2 (09:32→20:38)
[2019-08-12] MEDS: OMEPRAZOLE 20 MG CAP PO SCH (09:32)
[2019-08-12] MEDS: LEVEMIR (INSULIN DETEMIR) 1 UNITS/0.01ML SC SCH ×2 (09:51→20:41)
[2019-08-12] MEDS: HumaLOG INSULIN (NovoLOG) PER UNIT SC SCH ×4 (09:51→20:41)
[2019-08-12] MEDS: ENOXAPARIN 30 MG/0.3 ML SYR (J1650) SC SCH (09:51)
[2019-08-12] MEDS: LIDOCAINE 5% (LIDODERM) PATCH TD SCH (09:52)
[2019-08-12] MEDS: HYDROCORTISONE 1% CREAM 30 GM TOP SCH (09:53)
[2019-08-12] MEDS: CLOTRIMAZOLE 1% TOPICAL CREAM 30GM TOP SCH ×2 (09:53→20:56)
[2019-08-12] MEDS: NYSTATIN CREAM 15 GM TOP SCH ×2 (09:54→20:56)
[2019-08-12] MEDS: CLINDAMYCIN TOP 1% SOLN 60 ML BTL TOP SCH ×2 (09:54→20:56)
[2019-08-12] MEDS: ONDANSETRON 4 MG TAB (S0181) PO PRN (11:00)
[2019-08-12] MEDS: MAGNESIUM OXIDE 400 MG TAB (MAG-OX) PO SCH ×2 (13:31→20:39)
[2019-08-12 14:00] VITALS: BP 134/78
[2019-08-12 20:01] VITALS: BP 132/76
[2019-08-12] MEDS: FAMOTIDINE 20 MG TAB PO SCH (20:39)
[2019-08-12] MEDS: **NOTE PATIENT COMMENT** MISC XX SCH (21:00)
[2019-08-13] MEDS: NORCO, ANEXSIA 5/325MG TABLET (HYDROcodone/ACETAMINOPHEN) PO PRN ×3 (05:32→18:04)
[2019-08-13] MEDS: LEVOTHYROXINE 50MCG TABLET (0.05MG) PO SCH (05:32)
[2019-08-13 05:57] VITALS: BP 120/74
[2019-08-13] MEDS: MAGNESIUM OXIDE 400 MG TAB (MAG-OX) PO SCH ×2 (06:00→17:11)
[2019-08-13] MEDS: HumaLOG INSULIN (NovoLOG) PER UNIT SC SCH ×4 (06:53→20:46)
[2019-08-13 07:23] LABS: HEMATOCRIT 48.5 % (36.0-47.0); HEMOGLOBIN 15.5 g/dl (12.0-15.5); MEAN CORPUSCULAR HEMOGLOBIN 30.8 pg (27.0-33.0); MEAN CORPUSCULAR VOLUME 96.4 fl (80.0-96.0); PLATELET COUNT, AUTOMATED 229 10^3/uL (150-450); RED BLOOD COUNT 5.03 10^6/uL (4.00-5.40); WHITE BLOOD COUNT 7.2 10^3/uL (4.0-10.0)
[2019-08-13] MEDS: TIOTROPIUM INHALER/CAPSULE (SPIRIVA) INH SCH (07:26)
[2019-08-13 07:45] LABS: ALBUMIN 2.8 GM/DL (3.2-5.2); BILIRUBIN,TOTAL 0.6 MG/DL (0.2-1.0); CALCIUM LEVEL 9.2 MG/DL (8.8-10.2); CREATININE FOR GFR 1.51 MG/DL (0.55-1.30); GLOMERULAR FILTRATION RATE 36.9 (>45); POTASSIUM SERUM 3.7 MEQ/L (3.5-5.1); TOTAL PROTEIN 8.7 GM/DL (6.4-8.2)
[2019-08-13 07:53] VITALS: BP 153/87
[2019-08-13 08:06] VITALS: BP 153/87
[2019-08-13] MEDS: SPIRONOLACTONE 50 MG TAB PO SCH ×2 (09:57→20:44)
[2019-08-13] MEDS: LACTULOSE 20 GM/30 ML SYRUP UD PO SCH ×2 (09:57→20:44)
[2019-08-13] MEDS: DULoxetine 30 MG CAP (CYMBALTA) PO SCH (09:58)
[2019-08-13] MEDS: TORSEMIDE 10 MG TABLET PO SCH (09:58)
[2019-08-13] MEDS: DOXYCYCLINE HYCLATE 100 MG TAB PO SCH ×2 (09:58→20:44)
[2019-08-13] MEDS: metOLazone 2.5 MG TAB PO SCH (09:58)
[2019-08-13] MEDS: OMEPRAZOLE 20 MG CAP PO SCH (09:59)
[2019-08-13] MEDS: METOPROLOL TART 25 MG TABLET PO SCH ×2 (09:59→20:50)
[2019-08-13] MEDS: rifAXIMin 550 MG TAB (XIFAXAN) PO SCH ×2 (10:00→20:45)
[2019-08-13] MEDS: POTASSIUM CHLORIDE 10 MEQ SR TABLET PO SCH ×3 (10:00→20:45)
[2019-08-13] MEDS: FERROUS SULFATE 325MG TAB PO SCH (10:00)
[2019-08-13] MEDS: GABAPENTIN 300 MG CAP PO SCH ×2 (10:00→20:44)
[2019-08-13] MEDS: OMEGA-3 1000MG CAPSULE PO SCH (10:01)
[2019-08-13] MEDS: LEVEMIR (INSULIN DETEMIR) 1 UNITS/0.01ML SC SCH ×2 (10:38→20:46)
[2019-08-13] MEDS: ENOXAPARIN 30 MG/0.3 ML SYR (J1650) SC SCH (10:38)
[2019-08-13] MEDS: LIDOCAINE 5% (LIDODERM) PATCH TD SCH (10:39)
[2019-08-13] MEDS: CLOTRIMAZOLE 1% TOPICAL CREAM 30GM TOP SCH ×2 (10:39→21:04)
[2019-08-13] MEDS: HYDROCORTISONE 1% CREAM 30 GM TOP SCH (10:40)
[2019-08-13] MEDS: NYSTATIN CREAM 15 GM TOP SCH ×2 (10:40→21:04)
[2019-08-13] MEDS: CLINDAMYCIN TOP 1% SOLN 60 ML BTL TOP SCH ×2 (10:40→21:04)
[2019-08-13 13:22] VITALS: BP 141/77
[2019-08-13] MEDS: FAMOTIDINE 20 MG TAB PO SCH (20:44)
[2019-08-13 20:59] VITALS: BP 151/72
[2019-08-13] MEDS: **NOTE PATIENT COMMENT** MISC XX SCH (21:04)
[2019-08-14] MEDS: NORCO, ANEXSIA 5/325MG TABLET (HYDROcodone/ACETAMINOPHEN) PO PRN ×3 (00:07→11:55)
[2019-08-14] MEDS: LEVOTHYROXINE 50MCG TABLET (0.05MG) PO SCH (05:36)
[2019-08-14] MEDS: MAGNESIUM OXIDE 400 MG TAB (MAG-OX) PO SCH (05:36)
[2019-08-14 06:02] LABS: HEMATOCRIT 48.9 % (36.0-47.0); HEMOGLOBIN 15.6 g/dl (12.0-15.5); MEAN CORPUSCULAR HGB CONC 31.9 g/dl (32.0-36.5); PLATELET COUNT, AUTOMATED 195 10^3/uL (150-450); RED BLOOD COUNT 5.04 10^6/uL (4.00-5.40); WHITE BLOOD COUNT 5.3 10^3/uL (4.0-10.0)
[2019-08-14 06:22] VITALS: BP 147/84
[2019-08-14 06:39] LABS: ALBUMIN 2.7 GM/DL (3.2-5.2); BILIRUBIN,TOTAL 0.4 MG/DL (0.2-1.0); CALCIUM LEVEL 9.6 MG/DL (8.8-10.2); CREATININE FOR GFR 1.53 MG/DL (0.55-1.30); GLOMERULAR FILTRATION RATE 36.4 (>45); POTASSIUM SERUM 3.7 MEQ/L (3.5-5.1); TOTAL PROTEIN 8.5 GM/DL (6.4-8.2)
[2019-08-14] MEDS: TIOTROPIUM INHALER/CAPSULE (SPIRIVA) INH SCH (08:35)
[2019-08-14] MEDS: CLINDAMYCIN TOP 1% SOLN 60 ML BTL TOP SCH (09:00)
[2019-08-14] MEDS: DULoxetine 30 MG CAP (CYMBALTA) PO SCH (09:04)
[2019-08-14] MEDS: LACTULOSE 20 GM/30 ML SYRUP UD PO SCH (09:04)
[2019-08-14] MEDS: ENOXAPARIN 30 MG/0.3 ML SYR (J1650) SC SCH (09:04)
[2019-08-14 09:05] VITALS: BP 147/84
[2019-08-14] MEDS: FERROUS SULFATE 325MG TAB PO SCH (09:05)
[2019-08-14] MEDS: TORSEMIDE 10 MG TABLET PO SCH (09:05)
[2019-08-14] MEDS: DOXYCYCLINE HYCLATE 100 MG TAB PO SCH (09:05)
[2019-08-14] MEDS: rifAXIMin 550 MG TAB (XIFAXAN) PO SCH (09:05)
[2019-08-14] MEDS: metOLazone 2.5 MG TAB PO SCH (09:05)
[2019-08-14] MEDS: OMEGA-3 1000MG CAPSULE PO SCH (09:05)
[2019-08-14] MEDS: METOPROLOL TART 25 MG TABLET PO SCH (09:05)
[2019-08-14] MEDS: GABAPENTIN 300 MG CAP PO SCH (09:06)
[2019-08-14] MEDS: OMEPRAZOLE 20 MG CAP PO SCH (09:06)
[2019-08-14] MEDS: SPIRONOLACTONE 50 MG TAB PO SCH (09:06)
[2019-08-14] MEDS: ONDANSETRON 4 MG TAB (S0181) PO PRN (09:06)
[2019-08-14] MEDS: POTASSIUM CHLORIDE 10 MEQ SR TABLET PO SCH (09:06)
[2019-08-14] MEDS: HumaLOG INSULIN (NovoLOG) PER UNIT SC SCH ×2 (09:07→11:54)
[2019-08-14] MEDS: LEVEMIR (INSULIN DETEMIR) 1 UNITS/0.01ML SC SCH (09:07)
[2019-08-14] MEDS: NYSTATIN CREAM 15 GM TOP SCH (09:08)
[2019-08-14] MEDS: CLOTRIMAZOLE 1% TOPICAL CREAM 30GM TOP SCH (09:08)
[2019-08-14] MEDS: HYDROCORTISONE 1% CREAM 30 GM TOP SCH (09:08)
[2019-08-14] MEDS: LIDOCAINE 5% (LIDODERM) PATCH TD SCH (09:08)
[2019-08-14] MEDS ORDERED: HYDR-3363 PO (12:34)
[2019-08-14] MEDS ORDERED: INSUDET SC ×2 (12:34)
[2019-08-14] MEDS ORDERED: TORS10TA3 PO (12:34)
[2019-08-14] MEDS ORDERED: CLOTR1CR TOP (12:34)
[2019-08-14] MEDS ORDERED: MAG400TA PO (12:34)
[2019-08-14] MEDS ORDERED: METO1TAB87 PO (12:34)
[2019-08-14] MEDS ORDERED: TIZA4TAB4 PO (12:34)
[2019-08-14] MEDS ORDERED: OMEP-218 PO (12:34)
[2019-08-14] MEDS ORDERED: ALB2.5NEB NEB (12:34)
[2019-08-14] MEDS ORDERED: GABA-843 PO (12:34)
[2019-08-14] MEDS ORDERED: LEVO50TA5 PO (12:34)
[2019-08-14] MEDS ORDERED: XIFA550T PO (12:34)
[2019-08-14] MEDS ORDERED: CLIN1SOL TOP (12:34)
[2019-08-14] MEDS ORDERED: ALDA50TA2 PO (12:34)
[2019-08-14] MEDS ORDERED: DOXY100T PO (12:34)
[2019-08-14] MEDS ORDERED: INSUHUMDS SC (12:34)
[2019-08-14] MEDS ORDERED: CYMB1CAP5 PO (12:34)
[2019-08-14] MEDS ORDERED: Patient Own Medication TD (12:34)
[2019-08-14] MEDS ORDERED: TIOT18INH INH (12:34)
[2019-08-14] MEDS ORDERED: Lactulose Syrup PO (12:34)
[2019-08-14] MEDS ORDERED: ONDA4TAB5 PO (12:34)
[2019-08-14] MEDS ORDERED: FAMO20TA PO (12:34)
[2019-08-14] MEDS ORDERED: METO25TA PO (12:34)
[2019-08-14] MEDS ORDERED: KLOR10TA76 PO (12:34)
[2019-08-14] MEDS ORDERED: LIDO5TD TD (12:34)
[2019-08-14] MEDS ORDERED: HYDR-4571 PO (12:34)
[2019-08-14] MEDS ORDERED: FERR325T18 PO (12:34)
--- NOTE | 2019-08-17 07:12 | DSES ---
DATE OF ADMISSION: 08/08/2019 DATE OF DISCHARGE: 08/14/2019 Patient was discharged on 08/14/2019. No change in her condition in the interval. Please see discharge summary, report #[id number]. DISCHARGE MEDICATIONS: - albuterol nebulized every 2 hours as needed - clindamycin 1% solution twice a day - clotrimazole cream twice a day - doxycycline 100 mg twice a day - duloxetine 30 mg daily - famotidine 20 mg nightly - ferrous sulfate 325 mg daily - gabapentin 600 mg twice a day - hydrocodone/acetaminophen 5/325 one every 6 hours as needed - hydroxyzine 25 mg three times a day as needed - detemir insulin 80 units in the morning and 70 units at bedtime - sliding scale of insulin before food (no nightly coverage ordered) - lactulose syrup 30 mL twice a day - levothyroxine 50 mcg daily - Lidoderm 5% patches daily - magnesium oxide 800 mg twice a day - metolazone 2.5 mg daily - metoprolol tartrate 25 mg twice a day - omeprazole 40 mg daily - Zofran 4 mg every 6 hours as needed - Butrans patch weekly - potassium chloride 10 mEq three times a day - rifaximin 550 mg twice a day - spironolactone 50 mg twice a day - Spiriva one inhalation daily - tizanidine 4 mg four times a day as needed muscle spasms - torsemide 10 mg daily
== END 2019-08-14 13:45 | DRG 347 ==
LOC: M ED 20:01 → M ED INP 20:02 → M MS5PR 08-06 07:01 → OBSVTOIN 08-08 13:22
PROVIDERS: ADMIT Internal Medicine; ATTEND Family Medicine
DX: M54.5 Low back pain (principal); E11.22 Type 2 diabetes mellitus with diabetic chronic kidney disease; Z68.42 Body mass index [BMI] 45.0-49.9, adult; F20.9 Schizophrenia, unspecified; E66.01 Morbid (severe) obesity due to excess calories; L03.311 Cellulitis of abdominal wall; K74.60 Unspecified cirrhosis of liver; N18.3 Chronic kidney disease, stage 3 (moderate); K76.0 Fatty (change of) liver, not elsewhere classified; G89.29 Other chronic pain; E03.9 Hypothyroidism, unspecified; I12.9 Hypertensive chronic kidney disease with stage 1 through stage 4 chronic kidney disease, or unspecified chronic kidney disease; E78.5 Hyperlipidemia, unspecified; I73.9 Peripheral vascular disease, unspecified; J44.9 Chronic obstructive pulmonary disease, unspecified; B37.9 Candidiasis, unspecified; Z90.79 Acquired absence of other genital organ(s); Z90.49 Acquired absence of other specified parts of digestive tract; Z79.4 Long term (current) use of insulin; Z79.51 Long term (current) use of inhaled steroids; Z79.891 Long term (current) use of opiate analgesic; Z79.899 Other long term (current) drug therapy; Z88.0 Allergy status to penicillin; Z88.8 Allergy status to other drugs, medicaments and biological substances; I87.2 Venous insufficiency (chronic) (peripheral); Z91.19 Patient's noncompliance with other medical treatment and regimen

== ENCOUNTER → 2019-08-17 | Outpatient (REF) ==
[~2019-08-17] MED LIST changes: +BUTR10DI TOP; +CETI10TA8 PO; +CLIN1SOL TOP; +CLOTR1CR TOP; +CYMB1CAP5 PO; +DOXY100T PO; +FAMO20TA PO; +FERR325T18 PO; +HYDR-4571 PO; +Lactulose Syrup PO; +MAGN400T2 PO; +METO25TA PO; +MOM30SS PO; +OMEG10002 PO; +OMEP-218 PO; +OMEP-221 PO; +ONDA4TAB5 PO; +POTA10CA32 PO; +Patient Own Medication TD; +SPIR1CAP INH; +SYNT50TA PO; +TIZA4TAB4 PO
[2019-08-17 08:53] LABS: ALBUMIN 3.1 GM/DL (3.2-5.2); BILIRUBIN,TOTAL 0.6 MG/DL (0.2-1.0); CALCIUM LEVEL 9.9 MG/DL (8.8-10.2); CREATININE FOR GFR 1.75 MG/DL (0.55-1.30); GLOMERULAR FILTRATION RATE 31.2 (>45); MAGNESIUM LEVEL 2.3 MG/DL (1.8-2.4); POTASSIUM SERUM 3.2 MEQ/L (3.5-5.1); THYROID STIMULATING HORMONE 1.76 uIU/ML (0.358-3.740); TOTAL PROTEIN 9.4 GM/DL (6.4-8.2)
[2019-08-17 08:59] LABS: HEMATOCRIT 52.4 % (36.0-47.0); HEMOGLOBIN 17.4 g/dl (12.0-15.5); MEAN CORPUSCULAR HEMOGLOBIN 31.1 pg (27.0-33.0); MEAN CORPUSCULAR HGB CONC 33.2 g/dl (32.0-36.5); MEAN CORPUSCULAR VOLUME 93.7 fl (80.0-96.0); PLATELET COUNT, AUTOMATED 238 10^3/uL (150-450); RED BLOOD COUNT 5.59 10^6/uL (4.00-5.40); WHITE BLOOD COUNT 7.4 10^3/uL (4.0-10.0)
[2019-08-17 10:21] LABS: HEMOGLOBIN A1c 7.9 %
== END ==
LOC: SKLAB7 07:11
PROVIDERS: ATTEND Family Medicine
DX: D64.9 Anemia, unspecified (principal); E03.9 Hypothyroidism, unspecified; E11.9 Type 2 diabetes mellitus without complications; K74.60 Unspecified cirrhosis of liver; E83.42 Hypomagnesemia

== ENCOUNTER → 2019-08-17 | Outpatient (REF) | payer MEDICAID, OTHER | LOC: SKLAB7 05:36 | PROVIDERS: ATTEND Family Medicine | DX: Z79.899 Other long term (current) drug therapy (principal) ==

== ENCOUNTER → 2019-08-18 | Outpatient (REF) ==
[~2019-08-18] MED LIST changes: +CLON0.5T2 PO; -CLON0.5T8 PO
[2019-08-18 08:32] LABS: ALBUMIN 3.2 GM/DL (3.2-5.2); CALCIUM LEVEL 9.4 MG/DL (8.8-10.2); CREATININE FOR GFR 1.81 MG/DL (0.55-1.30); PHOSPHORUS LEVEL 3.9 MG/DL (2.5-4.9); POTASSIUM SERUM 3.5 MEQ/L (3.5-5.1)
== END ==
LOC: SKLAB7 07:00
PROVIDERS: ATTEND Family Medicine
DX: N18.9 Chronic kidney disease, unspecified (principal)

== ENCOUNTER → 2019-08-19 | Outpatient (REF) ==
[2019-08-19 09:29] LABS: CALCIUM LEVEL 9.8 MG/DL (8.8-10.2); CREATININE FOR GFR 1.42 MG/DL (0.55-1.30); GLOMERULAR FILTRATION RATE 39.6 (>45); POTASSIUM SERUM 3.6 MEQ/L (3.5-5.1)
== END ==
LOC: SKLAB7 07:00
PROVIDERS: ATTEND Family Medicine
DX: K74.60 Unspecified cirrhosis of liver (principal); N18.9 Chronic kidney disease, unspecified

== ENCOUNTER → 2019-08-24 | Outpatient (REF) ==
[2019-08-24 08:11] LABS: CALCIUM LEVEL 8.9 MG/DL (8.8-10.2); CREATININE FOR GFR 1.52 MG/DL (0.55-1.30); GLOMERULAR FILTRATION RATE 36.7 (>45); POTASSIUM SERUM 3.6 MEQ/L (3.5-5.1)
== END ==
LOC: SKLAB7 08:00
PROVIDERS: ATTEND Family Medicine
DX: N18.9 Chronic kidney disease, unspecified (principal)

== ENCOUNTER → 2019-09-14 | Outpatient (REF) | payer MEDICAID ==
[~2019-09-14] MED LIST changes: +ACET-907 PO; +ALB2.5NEB INH; +BASA100I SC; +ENEMENE PR; +FAMO20TA4 PO; +FEOS200T2 PO; +FLUO10CA15 PO; -FLUO10CA8 PO; +FLUO20CA20 PO; -FLUO20CA8 PO; +GABA600T4 PO; +HYDR-3713 PO; +LIDO1PAD TOP; +ONDA-83 PO; -ONDA4TAB5 PO; +POTA10TA17 PO
== END ==
LOC: SKLAB7 07:00
PROVIDERS: ATTEND Family Medicine
DX: K74.60 Unspecified cirrhosis of liver (principal)

== ENCOUNTER 2019-09-15 18:42 | Emergency (ER) | payer MEDICAID ==
[~2019-09-15] VITALS: Ht 160 cm; Wt 110.9 kg
[~2019-09-15 18:42] MED LIST changes: -ACET-907 PO; -ALB2.5NEB INH; -BASA100I SC; -ENEMENE PR; -FAMO20TA4 PO; -FEOS200T2 PO; -GABA600T4 PO; -HYDR-3713 PO; -LIDO1PAD TOP; -ONDA-83 PO; +ONDA4TAB5 PO; -POTA10TA17 PO
[2019-09-15] MEDS ORDERED: TORS10TA3 PO (20:05)
[2019-09-15] MEDS ORDERED: MOM30SS PO (20:05)
[2019-09-15] MEDS ORDERED: HYDR-3713 PO (20:05)
[2019-09-15] MEDS ORDERED: BUTR10DI TOP (20:05)
[2019-09-15] MEDS ORDERED: DULC10SU2 PR (20:05)
[2019-09-15] MEDS ORDERED: METO1TAB87 PO (20:05)
[2019-09-15] MEDS ORDERED: ACET-907 PO (20:05)
[2019-09-15] MEDS ORDERED: ALB2.5NEB INH (20:05)
[2019-09-15] MEDS ORDERED: FEOS200T2 PO (20:05)
[2019-09-15] MEDS ORDERED: GABA600T4 PO (20:05)
[2019-09-15] MEDS ORDERED: CYMB1CAP5 PO (20:05)
[2019-09-15] MEDS ORDERED: LIDO1PAD TOP (20:05)
[2019-09-15] MEDS ORDERED: OMEP-218 PO (20:05)
[2019-09-15] MEDS ORDERED: ENEMENE PR (20:05)
[2019-09-15] MEDS ORDERED: LEVO50TA45 PO (20:05)
[2019-09-15] MEDS ORDERED: TIZA4CAP PO (20:05)
[2019-09-15] MEDS ORDERED: SPIR1CAP INH (20:05)
[2019-09-15] MEDS ORDERED: XIFA550T PO (20:05)
[2019-09-15] MEDS ORDERED: POTA10TA17 PO (20:05)
[2019-09-15] MEDS ORDERED: BASA100I SC ×2 (20:05)
[2019-09-15] MEDS ORDERED: SPIR50TA4 PO (20:05)
[2019-09-15] MEDS ORDERED: LACT10SO3 PO (20:05)
[2019-09-15] MEDS ORDERED: ZOFR4TAB16 PO (20:05)
[2019-09-15] MEDS ORDERED: FAMO20TA4 PO (20:05)
[2019-09-15] MEDS ORDERED: MAGN400T2 PO (20:05)
[2019-09-15 20:33] LABS: BASO % 0.3 % (0.0-1.0); EOS # 0.1 10^3/uL (0.0-0.5); HEMATOCRIT 47.8 % (36.0-47.0); HEMOGLOBIN 15.1 g/dl (12.0-15.5); LYMPH # 0.8 10^3/uL (1.5-5.0); LYMPH % 10.9 % (24.0-44.0); MEAN CORPUSCULAR HEMOGLOBIN 30.4 pg (27.0-33.0); MEAN CORPUSCULAR HGB CONC 31.6 g/dl (32.0-36.5); MEAN CORPUSCULAR VOLUME 96.4 fl (80.0-96.0); MONO # 0.5 10^3/uL (0.0-0.8); MONO % 6.5 % (0.0-5.0); NEUTROPHILS # 5.9 10^3/uL (1.5-8.5); NEUTROPHILS % 80.9 % (36.0-66.0); PLATELET COUNT, AUTOMATED 125 10^3/uL (150-450); RED BLOOD COUNT 4.96 10^6/uL (4.00-5.40); WHITE BLOOD COUNT 7.3 10^3/uL (4.0-10.0)
[2019-09-15 20:50] LABS: C REACTIVE PROTEIN QUANTITATIV 7.19 MG/DL (0.00-0.30); CALCIUM LEVEL 8.6 MG/DL (8.8-10.2); CREATININE FOR GFR 1.32 MG/DL (0.55-1.30); GLOMERULAR FILTRATION RATE 43.1 (>45); POTASSIUM SERUM 4.2 MEQ/L (3.5-5.1)
[2019-09-15] MEDS ORDERED: ceFAZolin SOD 1 GM in D5W MINI-BAG PLUS 50 ML IV ONE (21:00)
[2019-09-15 21:01] LABS: ERYTHROCYTE SEDIMENTATION RATE 29 mm/hr (0-30)
[2019-09-15] MEDS ORDERED: NORCO, ANEXSIA 5/325MG TABLET (HYDROcodone/ACETAMINOPHEN) PO ONE (21:30)
[2019-09-15] MEDS ORDERED: KEFL500C17 PO (21:48)
[2019-09-15 21:52] VITALS: BP 120/66
--- NOTE | 2019-09-16 08:17 | REP ---
Clinical: Left lower extremity pain and swelling . Technique: Calderon scale and color Doppler evaluation using linear high frequency transducer. Findings: Ultrasound examination of the left lower extremity deep venous structures from the common femoral vein to the popliteal vein demonstrates normal compressibility flow and wave patterns in response to respiration and augmentation. There is no evidence for deep venous thrombosis. Incidental left inguinal lymph node measuring 5.0 x 1.1 x 2.7 cm. Impression: No evidence for deep venous thrombosis. Electronically Signed by Juan Duckworth MD 09/16/2019 08:08 A
== END 2019-09-15 22:02 | disposition home or self-care (01) ==
LOC: M ED 18:42
DX: L03.116 Cellulitis of left lower limb (principal); I87.2 Venous insufficiency (chronic) (peripheral); J80 Acute respiratory distress syndrome; J44.9 Chronic obstructive pulmonary disease, unspecified; Z88.0 Allergy status to penicillin; Z88.1 Allergy status to other antibiotic agents; Z88.6 Allergy status to analgesic agent; Z79.899 Other long term (current) drug therapy; Z79.4 Long term (current) use of insulin; Z79.51 Long term (current) use of inhaled steroids
CPT/HCPCS: 80048; 85025; 85652; 86140; 93971; 96365; 99284; J0690

== ENCOUNTER → 2019-11-02 | Outpatient (CLI) | payer MEDICARE, MEDICAID ==
[~2019-11-02] MED LIST changes: +ACET-907 PO; +ALB2.5NEB INH; -ARTIDRO2 OU; +BASA100I SC; +CONRAY-43 43% 50ML VIAL (Q9960) As Ordered ONE; +ENEMENE PR; +FAMO20TA4 PO; +FEOS200T2 PO; +GABA600T4 PO; +HYDR-3713 PO; +LIDO1PAD TOP; +LIDOCAINE 1% MDV 20ML VIAL As Ordered ONE; +ONDA-83 PO; -ONDA4TAB5 PO; +POLYOPD OU; +POTA10TA17 PO; +TRIAMCINOLONE ACETONIDE SUSP 40 MG/ML VIAL (J3301) As Ordered ONE
--- NOTE | 2019-11-02 17:32 | REP ---
RIGHT SHOULDER INJECTION The procedure was performed under the direct supervision of Dr. Dorsey. The benefits and risks including but not limited to pain infection bleeding and anaphylaxis were explained to the patient and informed consent was obtained. The right glenohumeral joint space was localized using fluoroscopic guidance. The skin was prepped and draped in a sterile fashion. 1% lidocaine was used as a local anesthetic. Using fluoroscopic guidance a 22-gauge spinal needle was inserted and advanced into the joint. 0.5 ml of Conray 43 was injected to verify placement. 6 ml of a solution containing 5 ml of 1% lidocaine and 1 ml of Kenalog 40 mg injected. The needle was then removed. The patient tolerated the procedure well and there were no immediate complications. Less than 6 seconds of fluoroscopy time was utilized for this procedure. Electronically Signed by CHERI Melo 11/02/2019 04:18 P Electronically Signed by Roney Dorsey MD 11/02/2019 05:23 P
== END ==
LOC: M RADPRO 13:29
PROVIDERS: ATTEND Family Medicine
DX: M25.511 Pain in right shoulder (principal)
CPT/HCPCS: 20610; 77002; J3301; Q9960

== ENCOUNTER → 2019-11-12 | Outpatient (REF) | payer MEDICARE, MEDICAID ==
[~2019-11-12] MED LIST changes: -CONRAY-43 43% 50ML VIAL (Q9960) As Ordered ONE; -LIDOCAINE 1% MDV 20ML VIAL As Ordered ONE; -TRIAMCINOLONE ACETONIDE SUSP 40 MG/ML VIAL (J3301) As Ordered ONE
[2019-11-12 09:29] LABS: MAGNESIUM LEVEL 1.9 MG/DL (1.8-2.4); THYROID STIMULATING HORMONE 2.27 uIU/ML (0.358-3.740)
== END ==
LOC: SKLAB7 13:55
PROVIDERS: ATTEND Family Medicine
DX: E83.42 Hypomagnesemia (principal); E03.9 Hypothyroidism, unspecified

== ENCOUNTER → 2019-12-05 | Outpatient (REF) | payer MEDICARE, MEDICAID ==
[2019-12-05 08:04] LABS: BASO # 0.1 10^3/uL (0.0-0.2); BASO % 0.7 % (0.0-1.0); EOS # 0.2 10^3/uL (0.0-0.5); EOS % 1.7 % (0.0-3.0); HEMATOCRIT 44.5 % (36.0-47.0); HEMOGLOBIN 14.5 g/dl (12.0-15.5); LYMPH # 1.9 10^3/uL (1.5-5.0); LYMPH % 15.5 % (24.0-44.0); MEAN CORPUSCULAR HEMOGLOBIN 30.5 pg (27.0-33.0); MEAN CORPUSCULAR HGB CONC 32.6 g/dl (32.0-36.5); MEAN CORPUSCULAR VOLUME 93.5 fl (80.0-96.0); MONO # 0.8 10^3/uL (0.0-0.8); MONO % 6.6 % (0.0-5.0); NEUTROPHILS # 8.8 10^3/uL (1.5-8.5); PLATELET COUNT, AUTOMATED 275 10^3/uL (150-450); RED BLOOD COUNT 4.76 10^6/uL (4.00-5.40)
[2019-12-05 08:44] LABS: ERYTHROCYTE SEDIMENTATION RATE 44 mm/hr (0-30)
== END ==
LOC: SKLAB7 05:19
PROVIDERS: ATTEND Family Medicine
DX: L03.90 Cellulitis, unspecified (principal)

== ENCOUNTER → 2019-12-10 | Outpatient (REF) | payer MEDICARE, MEDICAID ==
[2019-12-10 08:57] LABS: HEMATOCRIT 42.3 % (36.0-47.0); HEMOGLOBIN 13.5 g/dl (12.0-15.5); MEAN CORPUSCULAR HEMOGLOBIN 30.1 pg (27.0-33.0); MEAN CORPUSCULAR HGB CONC 31.9 g/dl (32.0-36.5); MEAN CORPUSCULAR VOLUME 94.2 fl (80.0-96.0); PLATELET COUNT, AUTOMATED 247 10^3/uL (150-450); RED BLOOD COUNT 4.49 10^6/uL (4.00-5.40); WHITE BLOOD COUNT 7.3 10^3/uL (4.0-10.0)
[2019-12-10 09:21] LABS: ALBUMIN 2.6 GM/DL (3.2-5.2); BILIRUBIN,TOTAL 0.5 MG/DL (0.2-1.0); CALCIUM LEVEL 9.1 MG/DL (8.8-10.2); CREATININE FOR GFR 1.28 MG/DL (0.55-1.30); GLOMERULAR FILTRATION RATE 44.6 (>45); MAGNESIUM LEVEL 2.2 MG/DL (1.8-2.4); POTASSIUM SERUM 4.2 MEQ/L (3.5-5.1); TOTAL PROTEIN 7.3 GM/DL (6.4-8.2)
[2019-12-10 09:55] LABS: HEMOGLOBIN A1c 7.7 %
== END ==
LOC: SKLAB7 13:23
PROVIDERS: ATTEND Family Medicine
DX: D64.9 Anemia, unspecified (principal); K74.60 Unspecified cirrhosis of liver; E11.9 Type 2 diabetes mellitus without complications; E83.42 Hypomagnesemia

== ENCOUNTER → 2019-12-25 | Outpatient (CLI) | payer MEDICARE, MEDICAID ==
--- NOTE | 2020-01-10 23:45 | ECWPNPC ---
PATIENT NAME: HODAN FARFAN : 1955 GENDER: FEMALE VISIT DATE: 12/25/2019 DISCHARGE DATE: 12/25/19 1429 VISIT LOCKED DATE TIME: PHYSICIAN: CAMACHO HERNANDEZ MD PHYSICIAN PAGER NO: [phone] RESOURCE: CAMACHO HERNANDEZ MD REASON FOR APPOINTMENT 1. BACK PAIN/LESI-PREVIOUS PATIENT HISTORY OF PRESENT ILLNESS HISTORY OF PRESENT ILLNESS: PAIN THE PATIENT DESCRIBES THE PAIN... 64 YEAR OLD FEMALE PATIENT WITH A HISTORY OF CHRONIC LOW BACK PAIN. THE PATIENT DESCRIBES THE PAIN BURNING, STABBING, SHOOTING WITH A PAIN SCORE OF 6-9/10 DEPENDING ON PHYSICAL ACTIVITY. THE PATIENT STATES SHE HAS BEEN SUFFERING FROM HER PAIN FOR MANY YEARS AND IT IS AFFECTING HER ABILITY TO PERFORM HER DAILY ACTIVITIES SUCH WALKING AND ENJOYING DAILY LIVING. THE PATIENT IS LIVING AT [facility]. THE PATIENT IS USING BUTRANS PATCH AND OXYCODONE 10 MG NEEDED. THE PATIENT DENIES UNEXPLAINED WEIGHT LOSS, FEVER, CHILLS, NEW CHANGES IN HER URINARY OR BOWEL CONTROL. FALL RISK SCREENING: SCREENING :NO FALLS REPORTED IN THE LAST YEAR CURRENT MEDICATIONS TAKING WHEELCHAIR 1 MISCELLANEOUS DIRECTED M51.16 DAILY TAKING WHEELCHAIR _ MISCELLANEOUS DIRECTED D X: R27.0 DAILY, NOTES: COLE [phone] TAKING GLUCOMETER (VERIO IQ) 1 GLUCOMETER DIRECTED E11.8 FOUR TIMES DAILY TAKING BL LANCETS 1 1 LANCET E11.8 FOUR TIMES DAILY TAKING ONETOUCH VERIO 1 STRIP 1 STRIP E11.9 BID TAKING DEPEND PANT EXTRA LARGE DEPENDS MISCELLANEOUS SUPER ABSORBENT HIP - 155 CM; WAIST - 146 CM ICD:N39.490 EVERY 2-4 HOURS NEEDED MDD: 5 BRIEFS TAKING LEVOTHYROXINE SODIUM 50 MCG TABLET 1 CAPSULE ORALLY ONCE A DAY TAKING MAGNESIUM 400 MG CAPSULE 1 TABLET WITH A MEAL ORALLY ONCE A DAY TAKING SPIRONOLACTONE 50 MG TABLET 1 TAB ORALLY BID TAKING METOPROLOL TARTRATE 25 MG TABLET 1 TABLET WITH FOOD ORALLY TWICE A DAY TAKING SPIRIVA HANDIHALER 18 MCG CAPSULE 1 CAPSULE INHALATION ONCE A DAY TAKING INSULIN PEN NEEDLE 31G X 6 MM MISCELLANEOUS DIRECTED SQ DAILY BEFORE BEDTIME DX:E11.8 TAKING ONETOUCH VERIO - STRIP DIRECTED SUBCUTANEOUSLY AC BID TAKING TORSEMIDE 10 MG TABLET 1 TABLET ORALLY DAILY TAKING GABAPENTIN 300 MG CAPSULE 2 CAPSULE ORALLY BID TAKING DULOXETINE HCL 30 MG CAPSULE DELAYED RELEASE PARTICLES 1 CAPSULE ORALLY BID TAKING COLACE 100 MG CAPSULE 1 CAPSULE NEEDED ORALLY ONCE A DAY TAKING ROLLER WALKER 1 MISCELLANEOUS DIRECTED M47.816 DAILY TAKING COMPRESSION STOCKINGS 20-30 MMHG DIRECTED L03.116 DAILY TAKING BUTRANS 10 MCG/HR PATCH WEEKLY 1 PATCH TO SKIN TRANSDERMAL CHANGE PATCH EVERY 7 DAYS TAKING OXYCODONE HCL 10 MG TABLET 1 TABLET NEEDED ORALLY EVERY 6 HRS FOR PAIN TAKING LACTULOSE 20 GM/30ML SOLUTION 15 ML ORALLY ONCE A DAY TAKING LANTUS 100 UNIT/ML SOLUTION 70 UNITS DIRECTED SUBCUTANEOUS TAKING OMEPRAZOLE 20 MG CAPSULE DELAYED RELEASE 1 CAPSULE 30 MINUTES BEFORE MORNING MEAL ORALLY ONCE A DAY TAKING POTASSIUM CHLORIDE JYOTSNA ER 10 MEQ TABLET EXTENDED RELEASE 1 TABLET WITH FOOD ORALLY TWICE A DAY TAKING RIFAXIMIN 550 MG TABLET 1 TABLET ORALLY TWICE A DAY TAKING BENADRYL ALLERGY 25 MG CAPSULE 1 CAPSULE AT BEDTIME NEEDED ORALLY ONCE A DAY TAKING ONDANSETRON HCL 4 MG TABLET 1 TABLET ORALLY ONCE A DAY TAKING MILK OF MAGNESIA 2400 MG/30ML SUSPENSION 10 ML NEEDED ORALLY DAILY TAKING ACETAMINOPHEN 325 MG TABLET 2 TABLETS NEEDED ORALLY EVERY 4 HRS NOT-TAKING FAMOTIDINE 20 MG TABLET 1 TABLET AT BEDTIME ORALLY ONCE A DAY NOT-TAKING FERROUS SULFATE 325 (65 FE) MG TABLET 1 TABLET ORALLY ONCE A DAY NOT-TAKING XIFAXAN 550 MG TABLET 1 TABLET ORALLY TWICE A DAY NOT-TAKING TOUJEO SOLOSTAR 300 UNIT/ML SOLUTION PEN-INJECTOR DIRECTED SUBCUTANEOUS 80 UNITS IN AM 70 UNITS AT HS NOT-TAKING FISH OIL 1000 MG CAPSULE 1 CAPSULE ORALLY ONCE A DAY, NOTES: OTC NOT-TAKING KRISTALOSE 10 GM PACKET 1 PACKET ORALLY ONCE A DAY NOT-TAKING LIDODERM 5 % PATCH 1 PATCH REMOVE AFTER 12 HOURS EXTERNALLY ONCE A DAY NOT-TAKING TIZANIDINE HCL 4 MG TABLET 1 TABLET NEEDED ORALLY FOUR TIMES DAILY NOT-TAKING DIFLUCAN 100 MG TABLET 1 TABLET ORALLY BID NOT-TAKING HYDROXYZINE HCL 25 MG TABLET 1 TABLET NEEDED ORALLY EVERY 8 HRS NOT-TAKING NYSTATIN [id number] UNIT/GM CREAM 1 APPLICATION EXTERNALLY TWICE A DAY NOT-TAKING TRAMADOL HCL 50 MG TABLET 1 TABLET NEEDED ORALLY TID PRN PAIN NOT-TAKING KEFLEX 500 MG CAPSULE 1 CAPSULE ORALLY EVERY 12 HRS NOT-TAKING METOLAZONE 5 MG TABLET 1 TABLET ORALLY ONCE A DAY MEDICATION LIST REVIEWED AND RECONCILED WITH THE PATIENT PAST MEDICAL HISTORY OBESITY, MORBID CERVICAL/THORACIC/LUMBAR DJD-L2-S1 DIFFUSE BULGES-AT L5/S1 ABUTTING TS, B S1 PERIPHERAL EDEMA-01/2011 [id number] 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 BARAHONA, [facility], [place] OBSTRUCTIVE SLEEP APNEA HYPERLIPIDEMIA 2B COPD-07/2011 FEV1 1.9L (71%)/RATIO 92% T2DM ID GERD/HIATAL HERNIA-SEEN BY APRIL 2011 UPPER GI WITH SMALL BOWEL FOLLOW-THROUGH SCHIZOAFFECTIVE DISORDER-SPELLED BY DR. OSBORNE NONALCOHOLIC FATTY LIVER DISEASE-SEEN BY MARCH 2011 CT-NORMAL WORKUP 2010--CHRONIC HEPATITIS GRADE 2/4 WITH GRADE 4/4 CIRRHOSIS BY LIVER BIOPSY JULY 2011 VASOMOTOR SYMPTOMS VITAMIN D DEFICIENCY ALLERGIC RHINITIS RECURRENT CANDIDAL DERMATITIS ANTERIOR ABDOMEN LEUKOPENIA, CHRONIC CHRONIC ANTERIOR ABDOMINAL WALL PANNICULITIS PORTAL VENOUS HYPERTENSION SEEN BY MARCH 2011 CT CKD III-12/2013 NORMAL B RENAL US CHF 2 DIASTOLIC DYSFUNCTION-01/2017 TTE-GUADALUPE C GRADE 1 DIASTOLIC DYSFUNCTION, VERY MILD MR/TR B SHOULDER IMPIGNMENT SYNDROME-09/2015 L SHOULDER XRAY C MILD AC ARTHRITIS//S/P R PROXIMAL HUMERUS FRACTURE S/P MECHANICAL [id number] PER HEBERT RECURRENT HEPATIC ENCEPHALOPATHY-01/2017 MRI BRAIN MILD /VOLUME LOSS ASTHMA CELLULITIS HYPOTHYROIDISM ALLERGIES CIPRO: CONFUSION - SIDE EFFECTS DOXYCYCLINE HYCLATE: ITCHY - ALLERGY MOTRIN: HIVES - ALLERGY SURGICAL HISTORY LINCOLN/BSO FOR NONCANCEROUS REASON-MAGDALENE 2002 EGD/[id number] GASTRITIS/PANDIVERTICULOSIS/LARGE HIATAL HERNIA/NEGATIVE SMALL BOWEL BIOPSY NOVEMBER 2009 NEGATIVE LUMBAR PUNCTURE FOR MS-LUDMILA JANUARY 2008 EGD-HIATAL HERNIA, NO EVIDENCE OF MASS [place]ULLA OF VATER-March 2011 HARD PALATE EXCISIONAL BIOPSY-ULCERATED HEMANGIOMA-OPAL MARCH 2011 RIGHT HIP REPAIR AND FEMUR REPAIR BLOOD PRESSURE MARCH 2019 FAMILY HISTORY FATHER: 70 YRS, DIAGNOSED WITH OTHER SPECIFIED CONDITIONS INFLUENCING HEALTH STATUS MOTHER: 60 YRS, OTHER SPECIFIED CONDITIONS INFLUENCING HEALTH STATUS SIBLINGS: ALIVE, DIABETES, HYPERTENSION, UNSPECIFIED HEART DISEASE, UNSPECIFIED NONPSYCHOTIC MENTAL DISORDER FOLLOWING ORGANIC BRAIN DAMAGE DAUGHTER(S): ALIVE 2 BROTHER(S) , 4 SISTER(S) . 3DAUGHTER(S) - HEALTHY. MOTHER- EMPHASEMAFATHER-COPD. SOCIAL HISTORY GENERAL: TOBACCO USE ARE YOU A:NONSMOKER LATEX QUESTIONNAIRE LATEX ALLERGY : HAVE YOU EVER DEVELOPED ANY TYPE OF REACTION AFTER HANDLING LATEX PRODUCTS SUCH RUBBER GLOVES, CONDOMS, DIAPHRAGMS, BALLOONS, SOCKS, OR UNDERWEAR?NO ALLERGY TO SOME TAP - ONLY USES PAPER TAPE LATEX ALLERGY : HAVE YOU EVER DEVELOPED ANY TYPE OF REACTION DURING OR AFTER DENTAL APPOINTMENT, VAGINAL/RECTAL EXAMINATION, SURGICAL PROCEDURE, OR ANY OTHER EXPOSURE?NO LATEX RISK : HAVE YOU EVER HAD ANY DIFFICULTY BREATHING OR HIVES AFTER EATING OR HANDLING ANY FRUITS, OR VEGETABLES; SUCH KIWI, BANANAS, STONE FRUITS, OR CHESTNUTSNO LATEX RISK : DO YOU HAVE A PREVIOUS PERSONAL HISTORY OF MORE THAN NINE SURGERIES, SPINA BIFIDA, OR REPEATED CATHERIZATIONS? NO LATEX RISK : ARE YOU FREQUENTLY EXPOSED TO LATEX PRODUCTS IN YOUR OCCUPATION?NO DATE ASKED : 12/25/2019 BMI CARE GOAL FOLLOW-UP ABOVE NORMAL BMI FOLLOW-UPGIVING ENCOURAGEMENT TO EXERCISE ALCOHOL SCREENING DID YOU HAVE A DRINK CONTAINING ALCOHOL IN THE PAST YEAR?NO POINTS0 INTERPRETATIONNEGATIVE RECREATIONAL DRUG USE DRUG USE?NO CAFFEINE OCCASIONAL ONLY. SEXUAL HX HAD SEX IN THE LAST 12 MONTHS (VAGINAL, ORAL, OR ANAL)?NO HAVE YOU EVER HAD AN STD?NO CONFUCIANISM [id number] PRESYBETERIAN LANGUAGE LANGUAGES SPOKEN:EGYPTIAN EDUCATION LEVEL OF EDUCATION:FINISHED HIGH SCHOOL LEARNING BARRIERS / SPECIAL NEEDS CHANGE FROM LAST VISIT?NO BARRIERS TO LEARNING?NO HEARING IMPAIRED?NO VISION IMPAIRED?YES COGNITIVELY IMPAIRED?NO :CORRECTIVE LENSES READINESS TO LEARN?YES LEARNING PREFERENCES?YES :DEMONSTRATION/VERBAL INSTRUCTION LEARNING CAPABILITIES PRESENT?YES EMOTIONAL BARRIERS?NO SPECIAL DEVICES?NO MANAGER VALUATION NEEDED?NO DOMESTIC VIOLENCE DO YOU FEEL SAFE IN YOUR ENVIRONMENT?YES OCCUPATION: RETIRED. DIET: CARBOHYDRATE CONTROLLED. EXERCISE: NO REGULAR EXERCISE. MARITAL STATUS: SINGLE. OTHERS AT HOME: NONE. DAUGHTER LIVES NEAR BY.. NEW PATIENT PAIN DIARY TODAY'S VISITNOTES 12/25/2019 PATIENT DESCRIBES PAIN :BURNING, STABBING, SHOOTING FROM 0-10, WHAT LEVEL IS YOUR PAIN TODAY?9 PAIN CLINIC PFS, CLERGY, PUBLIC HEALTH REFERRALS HAS THE PATIENT BEEN EDUCATED REGARDING HIS/HER PLAN OF CARE?YES HAS THE PATIENT BEEN EDUCATED REGARDING PAIN, THE RISK FOR PAIN, THE IMPORTANCE OF EFFECTIVE PAIN MANAGEMENT, AND THE PAIN ASSESSMENT PROCESS?YES HOUSING: [facility] KEEP HOME. ADVANCE DIRECTIVE HEALTH CARE PROXY? YES, NAME OF HCP DAUGHTER-LIYAH LOCO, CONTACT # FOR HCP [phone], DO YOU HAVE A COPY WITH YOU? NO INSTRUCTED TO BRING IN, DO YOU HAVE A DNR? NO, WOULD YOU LIKE MORE INFORMATION? NO, LIVING WILL? NO, WOULD YOU LIKE MORE INFORMATION? NO, POWER OF PEANUT ROASTER? NO, WOULD YOU LIKE MORE INFORMATION? NO. HOSPITALIZATION/MAJOR DIAGNOSTIC PROCEDURE RECURRENT NAUSEA/VOMITING-NEGATIVE BLOOD CULTURE X2/NEGATIVE URINE CULTURE APRIL 05-2010 MS CHANGE 2 MEDICATIONS/HEPATIC ENCEPHALOPATHY-PEAK EF1-31-FTWOPMP AMBIEN, VICODIN, ZANAFLEX/NEGATIVE UCX/BCX X2 01/29-02/06/2012 MS CHANGE 2 HEPATIC ENCEPHALOPATY-HEAD CT C MILD ATROPHY 02/2012 MS CHANGE 2 HEPATIC ENCEPHALOPATHY, INCREASED PERIPHERAL EDEMA 04/2012 MS CHANGE ? 2 HEPATIC ENCEPHALOPATHY VS 2 SCHIZOAFFECTIVE DISORDER-ADMISSION NH3 32, NEGATIVE HEAD CT, B12 LEVEL, SX RESOLVED IN HOURS 05/2012 SYMPTOMATIC HYPONATRIEMIA/HYPOKALEMIA (116, 2.9 ON ADMISSION) 2 ESLD/ASCITES C OVERDIURESIS-LASIX 40 BID AND SPIROLACTONE 50 BID HELD 12/30- LLE CELLULITIS-ONSET DAY OF ADMISSION-RXED C ZOSYN 7D THEN CEFTAROLINE 5D-04/25/142 BCX K PNEUMONIA, 04/28/14 UCX NGCS, 05/04, , -BCX X 1 EACH DAY -, CXR C MILD B PVC, 04/25/2014 - LLE EVT US 04/25- LLE CELLULITIS WITH S. SIMULANS AND C- STAPH BCX 09/24, P. AERUGENOSA BY BCX 2 RXED C LEVAQUIN 10D, UCX NG, CT CHEST S/ C - 06/22-06/30/14 INCREASED BLE EDEMA =/- BLE CELLULITIS, ASX UCX C E. COLI ESBL (AFEBRILE, PRESENTING WBC 4.2) RXED C ZOSYN 3D THEN BACTRIM 2D, - BCX X 2, - CXR, - B TIB/FIB XRAY 09/03- LLE CELLULITIS/SIRS- -BCX X 2, -LLE DVT US, RXED C CEFAROLINE BUT D/MOUSTAPHA ON KEFLEX 500 BID, UCX NG, - MRSA SCREEN, ADMISSION WBC 14.3, CRP 7.9 11/14- LLE CELLULITIS-- BCX X 2, SCX C FEW COAG NEG STAPH, RX C CEFTAROLINE IV, D/MOUSTAPHA ON DOXY PO 03/10- LLE CELLULITIS/SIRS-RX C CEFTAROLINE-(ADMISSION WBC 17.9, D/C 5.8, NO CRP/ESR DONE, BCX - X 2) 04/23-03/07 LLE CELLULITIS/SIRS-BETH CHANGED CEFTAROLINE TO KEFLEX 500 QID AND RECOMMENDED 500 QD SUPPRESSION FAVORING RECURRENT MSSA, - NASAL SWAB MRSA SCREEN AND CULTURE, - BCX X2, -MRI L FOOT/THIGH, -LLE DVT US 06/15-06/23/15 ACUTE HYPOXIC RESPIRATORY FAILURE 2 ARDS FROM ASPIRATION PN/CARDIOGENIC SHOCK-ON MECHANICAL VENTILATION X 1W, RUE NONOCCLUSIVE CEPHALIC DVT-NOT TREATED/THEN TO [facility] UNTIL 07/05/1604/04-04/26/16 BROKEN SHOULDER- ALC FOR 2 WEEK 10/15-10/17/16 HEPATIC ENCEPHALOPATHY 01/02/17-01/04/17 HEPATIC ENCEPHALOPATHY, DECOMPENSATED CHF, UTI, - BLE DVT US 04/18-04/30/17 REVIEW OF SYSTEMS REVIEWED BY: PROVIDER: CAMACHO HERNANDEZ MD . CONSTITUTIONAL: ANY CHANGE IN YOUR MEDICAL CONDITION? NO . CHILLS NO . FEVER NO . INFECTION: DO YOU HAVE NEW INFECTIONS? YES, STATES CELLULITIS A FEW WEEKS AGO IN HER RIGHT LEG . DO YOU HAVE HISTORY OF MRSA? NO . MUSCULOSKELETAL: ANY NEW PATTERNS OF PAIN OR NUMBNESS? YES, PAIN ACROSS ENTIRE LOW BACK THAT RADIATES INTO BILATERAL LEGS . GASTROENTEROLOGY: ANY NEW CHANGE IN BOWEL CONTROL? NO . GENITOURINARY: ANY NEW CHANGE IN BLADDER CONTROL? YES, STATES URINARY FREQUENCY AND URGENCY . IS THERE A CHANCE YOU COULD BE ? NO . HEMATOLOGY/LYMPH: DO YOU TAKE ANY BLOOD THINNERS? (FOR EXAMPLE- COUMADIN, PLAVIX, AGGRENOX, PLATEL, PRADAXA, OR XARELTO) NO . WHEN WAS YOUR LAST DOSE? DATE: TIME: . NEUROLOGY: HAVE YOU FALLEN IN THE PAST 12 MONTHS? YES, STATES SHE THINKS SO . ANY NEW EXTREMITY NUMBNESS OR WEAKNESS? YES, STATES WEAKNESS AND NUMBNESS TO BILATERAL LEGS AND ARMS AND TO RIGHT HAND . CARDIOLOGY: DO YOU HAVE A PACEMAKER OR DEFIBRILLATOR? NO . RESPIRATORY: HAVE YOU BEEN SICK IN THE PAST WEEK? YES, STATES SHE HAS HAD A BIT OF A COLD WITH CHILLS AND FEVER . FEVER NO . FLU LIKE SYMPTOMS? NO . COUGH YES . INTEGUMENTARY: DO YOU HAVE ANY RASHES OR OPEN SORES? NO . ALLERGIC/IMMUNO: ARE YOU ALLERGIC TO IV DYE? NO . ANY NEW ALLERGIES? NO . PSYCHIATRIC: DO YOU HAVE THOUGHTS OF HURTING YOURSELF OR SOMEONE ELSE? YES, STATES THOUGHT OF HURTING HERSELF AT TIMES, STATES SHE WOULD NEVER DO IT, JUST HAS THOUGHTS. NOT CURRENTLY BEING TREATED BY PSYCH . ARE YOU ABUSED, NEGLECTED, OR IN AN UNSAFE ENVIRONMENT? NO . ENDOCRINOLOGY: ARE YOU DIABETIC? YES . OTHER: DO YOU NEED ANY PRESCRIPTIONS? NO . IF YES, PLEASE LIST: ____ . ANY NEW PROBLEMS WITH YOUR MEDICATIONS? NO . WHEN DID YOU LAST EAT? ____ . WHEN DID YOU LAST DRINK? ____ . WHAT DID YOU LAST DRINK? ____ . NAME OF PERSON DRIVING YOU HOME? ____ . DO YOU HAVE ANY OTHER QUESTIONS OR CONCERNS NO . VITAL SIGNS WT 267.6 LBS, HT 78 IN, BMI 30.92 INDEX, BP 162/75 MM HG, HR 86 /MIN, RR 18 /MIN, TEMP 97.9 F, OXYGEN SAT % 97%, SAFE IN ENV? (Y/N) YES, NA INITIALS AW 1308, REVIEWED BY: KAPIL. EXAMINATION GENERAL EXAMINATION: PATIENT IS ALERT, ORIENTED TIMES THREE AND COOPERATIVE. PATIENT IS IN WHEELCHAIR. HEART IS WITH REGULAR RHYTHM,NO MURMURS OR GALLOPS. LUNGS ARE CLEAR TO AUSCULTATION. PATIENT HAS DIFFICULTY STANDING. TENDERNESS IN THE LOW BACK AREA. PRESENCE OF BANDS OF TISSUE AND TRIGGER POINTS WITH RESTRICTION OF MOVEMENT OF THE LOW BACK. PAIN INCREASES OVER THE LUMBAR FACET JOINTS WITH EXTENSION AND LATERAL ROTATION OF THE BACK. MRI OF THE LUMBAR SPINE DONE ON 04/25/2017 SHOWS FACET ARTHROPATHY CHANGES AT MULTIPLE LEVELS. ASSESSMENTS SPONDYLOSIS WITHOUT MYELOPATHY OR RADICULOPATHY, LUMBAR REGION - M47.816 (PRIMARY) MYALGIA, OTHER SITE - M79.18 TREATMENT SPONDYLOSIS WITHOUT MYELOPATHY OR RADICULOPATHY, LUMBAR REGION CLINICAL NOTES: WE DISCUSSED SEVERAL ISSUES WITH MS. FARFAN'S PAIN MANAGEMENT CASE. I DISCUSSED WITH THE PATIENT THAT SHE IS A CANDIDATE FOR LOW BACK TRIGGER POINT INJECTION OR LUMBAR THERAPEUTIC FACET BLOCKS. THE PATIENT SAYS SHE WOULD PREFER A LUMBAR FACET BLOCK. DUE TO THE COVID-19 SITUATION, I ADVISED THE PATIENT THE PROCEDURE WILL HAVE TO BE POSTPONED. THE PATIENT UNDERSTOOD AND EXPRESSED THAT SHE CAN WAIT. THE PATIENT WILL HAVE A TELEPHONE FOLLOW UP VISIT WITH ME ON JANUARY 28 AT 10:15 A.M. TO DISCUSS FURTHER OPTIONS. THE PATIENT WAS ADVISED TO CALL IF SHE NEEDS TO BE SEEN SOONER OR NEEDS A TRIGGER POINT INJECTION WITH LOCAL ANESTHETICS. INSTRUCTIONS WERE GIVEN, QUESTIONS WERE ANSWERED, PATIENT REPORTS UNDERSTANDING AND AGREES WITH THE PLAN. I, HEYDI TRAN, DOCUMENTED THE ABOVE INFORMATION ACTING A SCRIBE FOR DR. HERNANDEZ. I HAVE REVIEWED THE ABOVE DOCUMENT, WRITTEN BY HEYDI APONTE AND I VERIFY THAT IT IS ACCURATE. DEAR ROBB KELSEY MD: THANK YOU FOR YOUR KIND REFERRAL OF HODAN FARFAN. IF YOU WANT TO DISCUSS HER CASE WITH ME PLEASE CALL ME AT THE PAIN CENTER AT [phone]. SINCERELY, CAMACHO HERNANDEZ MD PAIN MEDICINE . PROCEDURE CODES G8427 CURRENT MEDS W/DOSAGES DOCUMENTED G8730 PAIN ASSESS POS TOOL F/U PLAN DOC [id number] ESTABILISHED PATIENT [facility] FACILITY CHARGE DISPOSITION & COMMUNICATION FOLLOW UP JANUARY 28 @ 10:15 (SCHEDULED), 4 WEEKS (REASON: F/UP WITH DR Mc TELEPHONE VISIT; CONSIDER LTFB OR TPI, WAIT FOR NOW DUE TO COVID) ELECTRONICALLY SIGNED BY CAMACHO HERNANDEZ MD, MD ON 01/10/2020 AT 12:28 PM EDT DISCLAIMER : THIS IS A VISIT SUMMARY EXTRACTED FROM THE [employer] CHART. IT IS NOT A COPY OF THE [employer] PROGRESS NOTE. MTDD
== END ==
LOC: M PAIN 13:00
PROVIDERS: ATTEND Anesthesiology
DX: M47.816 Spondylosis without myelopathy or radiculopathy, lumbar region (principal); M79.18 Myalgia, other site; I10 Essential (primary) hypertension; E11.9 Type 2 diabetes mellitus without complications; E03.9 Hypothyroidism, unspecified; Z79.4 Long term (current) use of insulin; Z79.891 Long term (current) use of opiate analgesic; Z79.899 Other long term (current) drug therapy; Z88.1 Allergy status to other antibiotic agents; Z88.8 Allergy status to other drugs, medicaments and biological substances

== ENCOUNTER → 2020-01-29 | Outpatient (CLI) | payer MEDICAID ==
--- NOTE | 2020-02-02 04:19 | ECWPNPC ---
PATIENT NAME: HODAN FARFAN : 1955 GENDER: FEMALE VISIT DATE: 01/29/2020 DISCHARGE DATE: 01/29/20 1138 VISIT LOCKED DATE TIME: PHYSICIAN: CAMACHO HERNANDEZ MD PHYSICIAN PAGER NO: [phone] RESOURCE: CAMACHO HERNANDEZ MD REASON FOR APPOINTMENT 1. CONSIDER LTFB/TPI HISTORY OF PRESENT ILLNESS HISTORY OF PRESENT ILLNESS: PAIN THE PATIENT DESCRIBES THE PAIN... PERMISSION FROM PATIENT WAS RECEIVED TO DO TELEPHONE OFFICE VISIT. 64 YEAR OLD FEMALE PATIENT WITH A HISTORY OF CHRONIC PAIN IN MULTIPLE SITES. THE PATIENT DESCRIBES HER PAIN BURNING, HAVE IT ALL THE TIME, STABBING, SHOOTING WITH A PAIN SCORE OF 8-10/10 DEPENDING ON PHYSICAL ACTIVITY. THE PATIENT STATES HER PAIN IS MAINLY IN HER LOW BACK AND LEGS. THE PATIENT IS USING MULTIPLE MEDICATIONS, INCLUDING NARCOTICS, BUT HER PAIN PERSISTS. THE PATIENT DENIES UNEXPLAINED WEIGHT LOSS, FEVER, CHILLS, NEW CHANGES IN HER URINARY OR BOWEL CONTROL. FALL RISK SCREENING: SCREENING :NO FALLS REPORTED IN THE LAST YEAR CURRENT MEDICATIONS TAKING WHEELCHAIR 1 MISCELLANEOUS DIRECTED M51.16 DAILY TAKING WHEELCHAIR _ MISCELLANEOUS DIRECTED D X: R27.0 DAILY, NOTES: COLE [phone] TAKING GLUCOMETER (VERIO IQ) 1 GLUCOMETER DIRECTED E11.8 FOUR TIMES DAILY TAKING BL LANCETS 1 1 LANCET E11.8 FOUR TIMES DAILY TAKING ONETOUCH VERIO 1 STRIP 1 STRIP E11.9 BID TAKING DEPEND PANT EXTRA LARGE DEPENDS MISCELLANEOUS SUPER ABSORBENT HIP - 155 CM; WAIST - 146 CM ICD:N39.490 EVERY 2-4 HOURS NEEDED MDD: 5 BRIEFS TAKING LEVOTHYROXINE SODIUM 50 MCG TABLET 1 CAPSULE ORALLY ONCE A DAY TAKING MAGNESIUM 400 MG CAPSULE 1 TABLET WITH A MEAL ORALLY ONCE A DAY TAKING SPIRONOLACTONE 50 MG TABLET 1 TAB ORALLY BID TAKING METOPROLOL TARTRATE 25 MG TABLET 1 TABLET WITH FOOD ORALLY TWICE A DAY TAKING SPIRIVA HANDIHALER 18 MCG CAPSULE 1 CAPSULE INHALATION ONCE A DAY TAKING INSULIN PEN NEEDLE 31G X 6 MM MISCELLANEOUS DIRECTED SQ DAILY BEFORE BEDTIME DX:E11.8 TAKING ONETOUCH VERIO - STRIP DIRECTED SUBCUTANEOUSLY AC BID TAKING TORSEMIDE 10 MG TABLET 1 TABLET ORALLY BID TAKING GABAPENTIN 300 MG CAPSULE 2 CAPSULE ORALLY BID TAKING DULOXETINE HCL 30 MG CAPSULE DELAYED RELEASE PARTICLES 1 CAPSULE ORALLY BID TAKING COLACE 100 MG CAPSULE 1 CAPSULE NEEDED ORALLY ONCE A DAY TAKING ROLLER WALKER 1 MISCELLANEOUS DIRECTED M47.816 DAILY TAKING COMPRESSION STOCKINGS 20-30 MMHG DIRECTED L03.116 DAILY TAKING BUTRANS 10 MCG/HR PATCH WEEKLY 1 PATCH TO SKIN TRANSDERMAL CHANGE PATCH EVERY 7 DAYS TAKING LACTULOSE 20 GM/30ML SOLUTION 15 ML ORALLY TID TAKING LANTUS 100 UNIT/ML SOLUTION 60 IN THE AM AND 55 IN THE EVENING SUBCUTANEOUS TAKING OMEPRAZOLE 20 MG CAPSULE DELAYED RELEASE 1 CAPSULE 30 MINUTES BEFORE MORNING MEAL ORALLY ONCE A DAY TAKING POTASSIUM CHLORIDE JYOTSNA ER 10 MEQ TABLET EXTENDED RELEASE 1 TABLET WITH FOOD ORALLY THREE TIMES DAILY TAKING RIFAXIMIN 550 MG TABLET 1 TABLET ORALLY TWICE A DAY TAKING BENADRYL ALLERGY 25 MG CAPSULE 1 CAPSULE AT BEDTIME NEEDED ORALLY EVERY 6 HOURS PRN TAKING ONDANSETRON HCL 4 MG TABLET 1 TABLET ORALLY Q 6 HOURS PRN TAKING MILK OF MAGNESIA 2400 MG/30ML SUSPENSION 10 ML NEEDED ORALLY DAILY TAKING ACETAMINOPHEN 325 MG TABLET 2 TABLETS NEEDED ORALLY EVERY 4 HRS TAKING BUTRANS 15 MCG/HR PATCH WEEKLY 1 PATCH TO SKIN TRANSDERMAL WEEKLY, REMOVE OLD PATCH TAKING OXYCODONE HCL 15 MG TABLET 1 TABLET NEEDED ORALLY EVERY 4 HRS FOR PAIN MDD=6 TAKING BIOFREEZE EVERY 6 HOURS NEEDED NOT-TAKING FAMOTIDINE 20 MG TABLET 1 TABLET AT BEDTIME ORALLY ONCE A DAY NOT-TAKING FERROUS SULFATE 325 (65 FE) MG TABLET 1 TABLET ORALLY ONCE A DAY NOT-TAKING XIFAXAN 550 MG TABLET 1 TABLET ORALLY TWICE A DAY NOT-TAKING TOUJEO SOLOSTAR 300 UNIT/ML SOLUTION PEN-INJECTOR DIRECTED SUBCUTANEOUS 80 UNITS IN AM 70 UNITS AT HS NOT-TAKING FISH OIL 1000 MG CAPSULE 1 CAPSULE ORALLY ONCE A DAY, NOTES: OTC NOT-TAKING KRISTALOSE 10 GM PACKET 1 PACKET ORALLY ONCE A DAY NOT-TAKING LIDODERM 5 % PATCH 1 PATCH REMOVE AFTER 12 HOURS EXTERNALLY ONCE A DAY NOT-TAKING TIZANIDINE HCL 4 MG TABLET 1 TABLET NEEDED ORALLY FOUR TIMES DAILY NOT-TAKING DIFLUCAN 100 MG TABLET 1 TABLET ORALLY BID NOT-TAKING HYDROXYZINE HCL 25 MG TABLET 1 TABLET NEEDED ORALLY EVERY 8 HRS NOT-TAKING NYSTATIN [id number] UNIT/GM CREAM 1 APPLICATION EXTERNALLY TWICE A DAY NOT-TAKING TRAMADOL HCL 50 MG TABLET 1 TABLET NEEDED ORALLY TID PRN PAIN NOT-TAKING KEFLEX 500 MG CAPSULE 1 CAPSULE ORALLY EVERY 12 HRS NOT-TAKING METOLAZONE 5 MG TABLET 1 TABLET ORALLY ONCE A DAY PAST MEDICAL HISTORY OBESITY, MORBID CERVICAL/THORACIC/LUMBAR DJD-L2-S1 DIFFUSE BULGES-AT L5/S1 ABUTTING TS, B S1 PERIPHERAL EDEMA-01/2011 [id number] 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 BARAHONA, [facility], [place] OBSTRUCTIVE SLEEP APNEA HYPERLIPIDEMIA 2B COPD-07/2011 FEV1 1.9L (71%)/RATIO 92% T2DM ID GERD/HIATAL HERNIA-SEEN BY APRIL 2011 UPPER GI WITH SMALL BOWEL FOLLOW-THROUGH SCHIZOAFFECTIVE DISORDER-SPELLED BY DR. OSBORNE NONALCOHOLIC FATTY LIVER DISEASE-SEEN BY MARCH 2011 CT-NORMAL WORKUP 2010--CHRONIC HEPATITIS GRADE 2/4 WITH GRADE 4/4 CIRRHOSIS BY LIVER BIOPSY JULY 2011 VASOMOTOR SYMPTOMS VITAMIN D DEFICIENCY ALLERGIC RHINITIS RECURRENT CANDIDAL DERMATITIS ANTERIOR ABDOMEN LEUKOPENIA, CHRONIC CHRONIC ANTERIOR ABDOMINAL WALL PANNICULITIS PORTAL VENOUS HYPERTENSION SEEN BY MARCH 2011 CT CKD III-12/2013 NORMAL B RENAL US CHF 2 DIASTOLIC DYSFUNCTION-01/2017 TTE-GUADALUPE C GRADE 1 DIASTOLIC DYSFUNCTION, VERY MILD MR/TR B SHOULDER IMPIGNMENT SYNDROME-09/2015 L SHOULDER XRAY C MILD AC ARTHRITIS//S/P R PROXIMAL HUMERUS FRACTURE S/P MECHANICAL [id number] PER HEBERT RECURRENT HEPATIC ENCEPHALOPATHY-01/2017 MRI BRAIN MILD /VOLUME LOSS ASTHMA CELLULITIS HYPOTHYROIDISM ALLERGIES CIPRO: CONFUSION - SIDE EFFECTS DOXYCYCLINE HYCLATE: ITCHY - ALLERGY MOTRIN: HIVES - ALLERGY SURGICAL HISTORY LINCOLN/BSO FOR NONCANCEROUS REASON-MAGDALENE 2002 EGD/[id number] GASTRITIS/PANDIVERTICULOSIS/LARGE HIATAL HERNIA/NEGATIVE SMALL BOWEL BIOPSY NOVEMBER 2009 NEGATIVE LUMBAR PUNCTURE FOR MS-LUDMILA JANUARY 2008 EGD-HIATAL HERNIA, NO EVIDENCE OF MASS [place]A OF VATER-ROHAN MARCH 2011 HARD PALATE EXCISIONAL BIOPSY-ULCERATED HEMANGIOMA-OPAL MARCH 2011 RIGHT HIP REPAIR AND FEMUR REPAIR BLOOD PRESSURE MARCH 2019 FAMILY HISTORY FATHER: 70 YRS, DIAGNOSED WITH OTHER SPECIFIED CONDITIONS INFLUENCING HEALTH STATUS MOTHER: 60 YRS, OTHER SPECIFIED CONDITIONS INFLUENCING HEALTH STATUS SIBLINGS: ALIVE, DIABETES, HYPERTENSION, UNSPECIFIED HEART DISEASE, UNSPECIFIED NONPSYCHOTIC MENTAL DISORDER FOLLOWING ORGANIC BRAIN DAMAGE DAUGHTER(S): ALIVE 2 BROTHER(S) , 4 SISTER(S) . 3DAUGHTER(S) - HEALTHY. MOTHER- EMPHASEMAFATHER-COPD. SOCIAL HISTORY GENERAL: TOBACCO USE ARE YOU A:NONSMOKER LATEX QUESTIONNAIRE LATEX ALLERGY : HAVE YOU EVER DEVELOPED ANY TYPE OF REACTION AFTER HANDLING LATEX PRODUCTS SUCH RUBBER GLOVES, CONDOMS, DIAPHRAGMS, BALLOONS, SOCKS, OR UNDERWEAR?NO ALLERGY TO SOME TAP - ONLY USES PAPER TAPE LATEX ALLERGY : HAVE YOU EVER DEVELOPED ANY TYPE OF REACTION DURING OR AFTER DENTAL APPOINTMENT, VAGINAL/RECTAL EXAMINATION, SURGICAL PROCEDURE, OR ANY OTHER EXPOSURE?NO LATEX RISK : HAVE YOU EVER HAD ANY DIFFICULTY BREATHING OR HIVES AFTER EATING OR HANDLING ANY FRUITS, OR VEGETABLES; SUCH KIWI, BANANAS, STONE FRUITS, OR CHESTNUTSNO LATEX RISK : DO YOU HAVE A PREVIOUS PERSONAL HISTORY OF MORE THAN NINE SURGERIES, SPINA BIFIDA, OR REPEATED CATHERIZATIONS? NO LATEX RISK : ARE YOU FREQUENTLY EXPOSED TO LATEX PRODUCTS IN YOUR OCCUPATION?NO DATE ASKED : 01/29/2020 BMI CARE GOAL FOLLOW-UP ABOVE NORMAL BMI FOLLOW-UPGIVING ENCOURAGEMENT TO EXERCISE ALCOHOL SCREENING DID YOU HAVE A DRINK CONTAINING ALCOHOL IN THE PAST YEAR?NO POINTS0 INTERPRETATIONNEGATIVE RECREATIONAL DRUG USE DRUG USE?NO CAFFEINE OCCASIONAL ONLY. 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 HISTORY NEEDED?NO DOMESTIC VIOLENCE DO YOU FEEL SAFE IN YOUR ENVIRONMENT?YES OCCUPATION: RETIRED. DIET: CARBOHYDRATE CONTROLLED. EXERCISE: NO REGULAR EXERCISE. MARITAL STATUS: SINGLE. OTHERS AT HOME: NONE. DAUGHTER LIVES NEAR BY.. NEW PATIENT PAIN DIARY TODAY'S VISITNOTES 01/29/2020 PATIENT DESCRIBES PAIN :BURNING, HAVE IT ALL THE TIME, STABBING, SHOOTING FROM 0-10, WHAT LEVEL IS YOUR PAIN TODAY?10 PAIN CLINIC PFS, CLERGY, PUBLIC HEALTH REFERRALS HAS THE PATIENT BEEN EDUCATED REGARDING HIS/HER PLAN OF CARE?YES HAS THE PATIENT BEEN EDUCATED REGARDING PAIN, THE RISK FOR PAIN, THE IMPORTANCE OF EFFECTIVE PAIN MANAGEMENT, AND THE PAIN ASSESSMENT PROCESS?YES HOUSING: [facility] KEEP HOME. ADVANCE DIRECTIVE HEALTH CARE PROXY? YES, NAME OF HCP DAUGHTER-LIYAH LOCO, CONTACT # FOR HCP [phone], DO YOU HAVE A COPY WITH YOU? NO INSTRUCTED TO BRING IN, DO YOU HAVE A DNR? NO, WOULD YOU LIKE MORE INFORMATION? NO, LIVING WILL? NO, WOULD YOU LIKE MORE INFORMATION? NO, POWER OF CHAMBER MAGISTRATE? NO, WOULD YOU LIKE MORE INFORMATION? NO. HOSPITALIZATION/MAJOR DIAGNOSTIC PROCEDURE RECURRENT NAUSEA/VOMITING-NEGATIVE BLOOD CULTURE X2/NEGATIVE URINE CULTURE APRIL 05-2010 MS CHANGE 2 MEDICATIONS/HEPATIC ENCEPHALOPATHY-PEAK [id number] AMBIEN, VICODIN, ZANAFLEX/NEGATIVE UCX/BCX X2 01/29-02/06/2012 MS CHANGE 2 HEPATIC ENCEPHALOPATY-HEAD CT C MILD ATROPHY 02/2012 MS CHANGE 2 HEPATIC ENCEPHALOPATHY, INCREASED PERIPHERAL EDEMA 04/2012 MS CHANGE ? 2 HEPATIC ENCEPHALOPATHY VS 2 SCHIZOAFFECTIVE DISORDER-ADMISSION NH3 32, NEGATIVE HEAD CT, B12 LEVEL, SX RESOLVED IN HOURS 05/2012 SYMPTOMATIC HYPONATRIEMIA/HYPOKALEMIA (116, 2.9 ON ADMISSION) 2 ESLD/ASCITES C OVERDIURESIS-LASIX 40 BID AND SPIROLACTONE 50 BID HELD 12/30- LLE CELLULITIS-ONSET DAY OF ADMISSION-RXED C ZOSYN 7D THEN CEFTAROLINE 5D-04/25/14 1/2 BCX K PNEUMONIA, 04/28/14 UCX NGCS, 05/04, , -BCX X 1 EACH DAY -, CXR C MILD B PVC, 04/25/2014 - LLE EVT US 04/25- LLE CELLULITIS WITH S. SIMULANS AND C- STAPH BCX 09/24, P. AERUGENOSA BY BCX 2 RXED C LEVAQUIN 10D, UCX NG, CT CHEST S/ C - 06/22-06/30/14 INCREASED BLE EDEMA =/- BLE CELLULITIS, ASX UCX C E. COLI ESBL (AFEBRILE, PRESENTING WBC 4.2) RXED C ZOSYN 3D THEN BACTRIM 2D, - BCX X 2, - CXR, - B TIB/FIB XRAY 09/03- LLE CELLULITIS/SIRS- -BCX X 2, -LLE DVT US, RXED C CEFAROLINE BUT D/MOUSTAPHA ON KEFLEX 500 BID, UCX NG, - MRSA SCREEN, ADMISSION WBC 14.3, CRP 7.9 11/14- LLE CELLULITIS-- BCX X 2, SCX C FEW COAG NEG STAPH, RX C CEFTAROLINE IV, D/MOUSTAPHA ON DOXY PO 03/10- LLE CELLULITIS/SIRS-RX C CEFTAROLINE-(ADMISSION WBC 17.9, D/C 5.8, NO CRP/ESR DONE, BCX - X 2) 04/23-03/07 LLE CELLULITIS/SIRS-BETH CHANGED CEFTAROLINE TO KEFLEX 500 QID AND RECOMMENDED 500 QD SUPPRESSION FAVORING RECURRENT MSSA, - NASAL SWAB MRSA SCREEN AND CULTURE, - BCX X2, -MRI L FOOT/THIGH, -LLE DVT US 06/15-06/23/15 ACUTE HYPOXIC RESPIRATORY FAILURE 2 ARDS FROM ASPIRATION PN/CARDIOGENIC SHOCK-ON MECHANICAL VENTILATION X 1W, RUE NONOCCLUSIVE CEPHALIC DVT-NOT TREATED/THEN TO [facility] UNTIL 07/05/1604/04-04/26/16 BROKEN SHOULDER- ALC FOR 2 WEEK 10/15-10/17/16 HEPATIC ENCEPHALOPATHY 01/02/17-01/04/17 HEPATIC ENCEPHALOPATHY, DECOMPENSATED CHF, UTI, - BLE DVT US 04/18-04/30/17 REVIEW OF SYSTEMS REVIEWED BY: PROVIDER: CAMACHO HERNANDEZ MD . CONSTITUTIONAL: ANY CHANGE IN YOUR MEDICAL CONDITION? NO . CHILLS NO . FEVER NO . INFECTION: DO YOU HAVE NEW INFECTIONS? NO . DO YOU HAVE HISTORY OF MRSA? NO . MUSCULOSKELETAL: ANY NEW PATTERNS OF PAIN OR NUMBNESS? STATES PAIN IS MUCH WORSE . GASTROENTEROLOGY: ANY NEW CHANGE IN BOWEL CONTROL? NO . GENITOURINARY: ANY NEW CHANGE IN BLADDER CONTROL? NO . IS THERE A CHANCE YOU COULD BE ? NO . HEMATOLOGY/LYMPH: DO YOU TAKE ANY BLOOD THINNERS? (FOR EXAMPLE- COUMADIN, PLAVIX, AGGRENOX, PLATEL, PRADAXA, OR XARELTO) NO . WHEN WAS YOUR LAST DOSE? DATE: TIME: . NEUROLOGY: HAVE YOU FALLEN IN THE PAST 12 MONTHS? NO . ANY NEW EXTREMITY NUMBNESS OR WEAKNESS? NO . CARDIOLOGY: DO YOU HAVE A PACEMAKER OR DEFIBRILLATOR? NO . RESPIRATORY: HAVE YOU BEEN SICK IN THE PAST WEEK? NO . FEVER NO . FLU LIKE SYMPTOMS? NO . COUGH NO . INTEGUMENTARY: DO YOU HAVE ANY RASHES OR OPEN SORES? NO . ALLERGIC/IMMUNO: ARE YOU ALLERGIC TO IV DYE? NO . ANY NEW ALLERGIES? NO . PSYCHIATRIC: DO YOU HAVE THOUGHTS OF HURTING YOURSELF OR SOMEONE ELSE? NO . ARE YOU ABUSED, NEGLECTED, OR IN AN UNSAFE ENVIRONMENT? NO . ENDOCRINOLOGY: ARE YOU DIABETIC? YES . OTHER: DO YOU NEED ANY PRESCRIPTIONS? NO . IF YES, PLEASE LIST: ____ . ANY NEW PROBLEMS WITH YOUR MEDICATIONS? NO . WHEN DID YOU LAST EAT? ____ . WHEN DID YOU LAST DRINK? ____ . WHAT DID YOU LAST DRINK? ____ . NAME OF PERSON DRIVING YOU HOME? ____ . DO YOU HAVE ANY OTHER QUESTIONS OR CONCERNS YES- STATES THEY CAN'T GET HER PAIN UNDER CONTROL . EXAMINATION GENERAL EXAMINATION: TELEPHONE ENCOUNTER. PATIENT IS ALERT O X 3 AND COOPERATIVE. PATIENT BECAME UPSET OVER THE PHONE. ASSESSMENTS MYALGIA, OTHER SITE - M79.18 (PRIMARY) PAIN OF MULTIPLE SITES - R52 LUMBAGO WITH SCIATICA, LEFT SIDE - M54.42 LUMBAGO WITH SCIATICA, RIGHT SIDE - M54.41 OTHER CHRONIC PAIN - G89.29 TREATMENT MYALGIA, OTHER SITE CLINICAL NOTES: WE DISCUSSED SEVERAL ISSUES WITH MS. FARFAN'S PAIN MANAGEMENT CASE. I WOULD LIKE TO MOVE FORWARD WITH A LOW BACK TRIGGER POINT INJECTION AT THIS TIME. WE DISCUSSED THE BENEFITS, RISKS, AND ALTERNATIVES OF THE INJECTION AND THE PATIENT WOULD LIKE TO PROCEED. I AM LOOKING FOR LONG LASTING PAIN RELIEF FROM THIS INJECTION FOR THE PATIENT. I DISCUSSED WITH THE PATIENT ABOUT NOT USING STEROIDS AND ONLY A LOCAL ANESTHETIC DUE TO THE RISK OF IMMUNOSUPPRESSION FROM STEROIDS. I WOULD LIKE TO DISCUSS THE PATIENT'S CASE WITH DR. RAMON RUBIO NEXT WEEK WHEN AVAILABLE. I DISCUSSED THE PATIENT'S CASE WITH NURSE AMBRIZ TODAY. THE TOTAL TIME FOR TODAY'S TELEPHONE VISIT WAS 11 MINUTES. INSTRUCTIONS WERE GIVEN, QUESTIONS WERE ANSWERED, PATIENT REPORTS UNDERSTANDING AND AGREES WITH THE PLAN. I, HEYDI TRAN, DOCUMENTED THE ABOVE INFORMATION ACTING A SCRIBE FOR DR. HERNANDEZ. I HAVE REVIEWED THE ABOVE DOCUMENT, WRITTEN BY HEYDI APONTE AND I VERIFY THAT IT IS ACCURATE. . OTHERS NOTES: PAT[facility] PATIENT AND NURSE CONSENT TO TELEPHONE VISIT. VITAL SIGNS NOT OBTAINED DUE TO TELEPHONE VISIT. 01/29/2020 1027 NLJ. DISPOSITION & COMMUNICATION FOLLOW UP 1 WEEK (REASON: LB TPI NEXT WEEK) ELECTRONICALLY SIGNED BY CAMACHO HERNANDEZ MD, MD ON 02/01/2020 AT 09:31 AM EDT DISCLAIMER : THIS IS A VISIT SUMMARY EXTRACTED FROM THE [employer] CHART. IT IS NOT A COPY OF THE [employer] PROGRESS NOTE. ALTAGRACIA
== END ==
LOC: M PAIN 10:15
PROVIDERS: ATTEND Anesthesiology
DX: M79.18 Myalgia, other site (principal); M54.42 Lumbago with sciatica, left side; M54.41 Lumbago with sciatica, right side; E11.9 Type 2 diabetes mellitus without complications; Z79.4 Long term (current) use of insulin; Z79.891 Long term (current) use of opiate analgesic; Z79.899 Other long term (current) drug therapy; Z88.1 Allergy status to other antibiotic agents; Z88.8 Allergy status to other drugs, medicaments and biological substances

== ENCOUNTER → 2020-02-02 | Outpatient (REF) | payer MEDICARE, MEDICAID | LOC: SKLAB7 10:13 | PROVIDERS: ATTEND Internal Medicine | DX: Z03.818 Encounter for observation for suspected exposure to other biological agents ruled out (principal) ==

== ENCOUNTER → 2020-02-05 | Outpatient (CLI) | payer MEDICARE, MEDICAID ==
[~2020-02-05] MED LIST changes: +BUPIVACAINE HCL 0.25% 10ML VIAL As Ordered ONE; +BUPIVACAINE HCL 0.25% 30ML VIAL As Ordered ONE; +oxyCODONE 5MG TAB As Ordered ONE
--- NOTE | 2020-02-06 00:16 | ECWPNPC ---
PATIENT NAME: HODAN FARFAN : 1955 GENDER: FEMALE VISIT DATE: 02/05/2020 DISCHARGE DATE: 02/05/20 1133 VISIT LOCKED DATE TIME: PHYSICIAN: CAMACHO HERNANDEZ MD PHYSICIAN PAGER NO: [phone] RESOURCE: CAMACHO HERNANDEZ MD REASON FOR APPOINTMENT 1. LB TPI HISTORY OF PRESENT ILLNESS HISTORY OF PRESENT ILLNESS: 64-YEAR-OLD FEMALE PATIENT WITH A HISTORY OF CHRONIC LOW BACK PAIN. THE PATIENT DESCRIBES THE PAIN VERY SEVERE AND ACHING WITH A PAIN SCORE RANGING FROM 6-10/10 DEPENDING ON PHYSICAL ACTIVITY. THE PATIENT STATES THAT THE PAIN IS LOCATED IN THE RIGHT AND LEFT LOWER BACK. THE PATIENT STATES THAT THE PAIN MAKES IT HARD FOR HER TO MOVE AND IT AFFECTS HER ACTIVITIES OF DAILY ACTIVITIES. PATIENT DENIES UNEXPLAINABLE WEIGHT LOSS, FEVER, CHILLS, NEW CHANGES ON HER URINARY OR BOWEL CONTROL. PAIN THE PATIENT DESCRIBES THE PAIN... FALL RISK SCREENING: SCREENING :NO FALLS REPORTED IN THE LAST YEAR CURRENT MEDICATIONS TAKING WHEELCHAIR 1 MISCELLANEOUS DIRECTED M51.16 DAILY TAKING WHEELCHAIR _ MISCELLANEOUS DIRECTED D X: R27.0 DAILY, NOTES: COLE [phone] TAKING GLUCOMETER (VERIO IQ) 1 GLUCOMETER DIRECTED E11.8 FOUR TIMES DAILY TAKING BL LANCETS 1 1 LANCET E11.8 FOUR TIMES DAILY TAKING ONETOUCH VERIO 1 STRIP 1 STRIP E11.9 BID TAKING DEPEND PANT EXTRA LARGE DEPENDS MISCELLANEOUS SUPER ABSORBENT HIP - 155 CM; WAIST - 146 CM ICD:N39.490 EVERY 2-4 HOURS NEEDED MDD: 5 BRIEFS TAKING LEVOTHYROXINE SODIUM 50 MCG TABLET 1 CAPSULE ORALLY ONCE A DAY, NOTES: 02/05/2020 0800 TAKING MAGNESIUM 400 MG CAPSULE 1 TABLET WITH A MEAL ORALLY ONCE A DAY, NOTES: 02/05/2020 0400 TAKING SPIRONOLACTONE 50 MG TABLET 1 TAB ORALLY BID, NOTES: 02/05/2020 0800 TAKING METOPROLOL TARTRATE 25 MG TABLET 1 TABLET WITH FOOD ORALLY TWICE A DAY, NOTES: 02/05/2020 0800 TAKING SPIRIVA HANDIHALER 18 MCG CAPSULE 1 CAPSULE INHALATION ONCE A DAY, NOTES: 02/05/2020 0800 TAKING INSULIN PEN NEEDLE 31G X 6 MM MISCELLANEOUS DIRECTED SQ DAILY BEFORE BEDTIME DX:E11.8 TAKING ONETOUCH VERIO - STRIP DIRECTED SUBCUTANEOUSLY AC BID TAKING TORSEMIDE 10 MG TABLET 1 TABLET ORALLY BID, NOTES: 02/05/2020 0800 TAKING GABAPENTIN 300 MG CAPSULE 2 CAPSULE ORALLY BID, NOTES: 02/05/2020 08 TAKING DULOXETINE HCL 30 MG CAPSULE DELAYED RELEASE PARTICLES 1 CAPSULE ORALLY BID, NOTES: 02/05/2020 08 TAKING COLACE 100 MG CAPSULE 1 CAPSULE NEEDED ORALLY ONCE A DAY, NOTES: 02/04/2020 08 TAKING ROLLER WALKER 1 MISCELLANEOUS DIRECTED M47.816 DAILY TAKING COMPRESSION STOCKINGS 20-30 MMHG DIRECTED L03.116 DAILY TAKING LACTULOSE 20 GM/30ML SOLUTION 15 ML ORALLY TID, NOTES: 02/05/2020 08 TAKING LANTUS 100 UNIT/ML SOLUTION 60 IN THE AM AND 55 IN THE EVENING SUBCUTANEOUS , NOTES: 02/04/2020 08 TAKING OMEPRAZOLE 20 MG CAPSULE DELAYED RELEASE 1 CAPSULE 30 MINUTES BEFORE MORNING MEAL ORALLY ONCE A DAY, NOTES: 02/05/2020 08 TAKING POTASSIUM CHLORIDE JYOTSNA ER 10 MEQ TABLET EXTENDED RELEASE 1 TABLET WITH FOOD ORALLY THREE TIMES DAILY, NOTES: 02/05/2020 08 TAKING RIFAXIMIN 550 MG TABLET 1 TABLET ORALLY TWICE A DAY, NOTES: 02/05/2020 08 TAKING BENADRYL ALLERGY 25 MG CAPSULE 1 CAPSULE AT BEDTIME NEEDED ORALLY EVERY 6 HOURS PRN, NOTES: 02/04/2020 2100 TAKING ONDANSETRON HCL 4 MG TABLET 1 TABLET ORALLY Q 6 HOURS PRN, NOTES: PRN TAKING MILK OF MAGNESIA 2400 MG/30ML SUSPENSION 10 ML NEEDED ORALLY DAILY, NOTES: PRN TAKING ACETAMINOPHEN 325 MG TABLET 2 TABLETS NEEDED ORALLY EVERY 4 HRS, NOTES: PRN TAKING BUTRANS 15 MCG/HR PATCH WEEKLY 1 PATCH TO SKIN TRANSDERMAL WEEKLY, REMOVE OLD PATCH, NOTES: WEEKLY TAKING OXYCODONE HCL 15 MG TABLET 1 TABLET NEEDED ORALLY EVERY 4 HRS FOR PAIN MDD=6, NOTES: 02/05/2020 0025 AM TAKING BIOFREEZE EVERY 6 HOURS NEEDED, NOTES: PRN NOT-TAKING BUTRANS 10 MCG/HR PATCH WEEKLY 1 PATCH TO SKIN TRANSDERMAL CHANGE PATCH EVERY 7 DAYS NOT-TAKING FAMOTIDINE 20 MG TABLET 1 TABLET AT BEDTIME ORALLY ONCE A DAY NOT-TAKING FERROUS SULFATE 325 (65 FE) MG TABLET 1 TABLET ORALLY ONCE A DAY NOT-TAKING XIFAXAN 550 MG TABLET 1 TABLET ORALLY TWICE A DAY NOT-TAKING TOUJEO SOLOSTAR 300 UNIT/ML SOLUTION PEN-INJECTOR DIRECTED SUBCUTANEOUS 80 UNITS IN AM 70 UNITS AT HS NOT-TAKING FISH OIL 1000 MG CAPSULE 1 CAPSULE ORALLY ONCE A DAY, NOTES: OTC NOT-TAKING KRISTALOSE 10 GM PACKET 1 PACKET ORALLY ONCE A DAY NOT-TAKING LIDODERM 5 % PATCH 1 PATCH REMOVE AFTER 12 HOURS EXTERNALLY ONCE A DAY NOT-TAKING TIZANIDINE HCL 4 MG TABLET 1 TABLET NEEDED ORALLY FOUR TIMES DAILY NOT-TAKING DIFLUCAN 100 MG TABLET 1 TABLET ORALLY BID NOT-TAKING HYDROXYZINE HCL 25 MG TABLET 1 TABLET NEEDED ORALLY EVERY 8 HRS NOT-TAKING NYSTATIN [id number] UNIT/GM CREAM 1 APPLICATION EXTERNALLY TWICE A DAY NOT-TAKING TRAMADOL HCL 50 MG TABLET 1 TABLET NEEDED ORALLY TID PRN PAIN NOT-TAKING KEFLEX 500 MG CAPSULE 1 CAPSULE ORALLY EVERY 12 HRS NOT-TAKING METOLAZONE 5 MG TABLET 1 TABLET ORALLY ONCE A DAY MEDICATION LIST REVIEWED AND RECONCILED WITH THE PATIENT PAST MEDICAL HISTORY OBESITY, MORBID CERVICAL/THORACIC/LUMBAR DJD-L2-S1 DIFFUSE BULGES-AT L5/S1 ABUTTING TS, B S1 PERIPHERAL EDEMA-01/2011 [id number] 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 BARAHONA, [facility] [place] OBSTRUCTIVE SLEEP APNEA HYPERLIPIDEMIA 2B COPD-07/2011 FEV1 1.9L (71%)/RATIO 92% T2DM ID GERD/HIATAL HERNIA-SEEN BY APRIL 2011 UPPER GI WITH SMALL BOWEL FOLLOW-THROUGH SCHIZOAFFECTIVE DISORDER-SPELLED BY DR. OSBORNE NONALCOHOLIC FATTY LIVER DISEASE-SEEN BY MARCH 2011 CT-NORMAL WORKUP 2010--CHRONIC HEPATITIS GRADE 2/4 WITH GRADE 4/4 CIRRHOSIS BY LIVER BIOPSY JULY 2011 VASOMOTOR SYMPTOMS VITAMIN D DEFICIENCY ALLERGIC RHINITIS RECURRENT CANDIDAL DERMATITIS ANTERIOR ABDOMEN LEUKOPENIA, CHRONIC CHRONIC ANTERIOR ABDOMINAL WALL PANNICULITIS PORTAL VENOUS HYPERTENSION SEEN BY MARCH 2011 CT CKD III-12/2013 NORMAL B RENAL US CHF 2 DIASTOLIC DYSFUNCTION-01/2017 TTE-GUADALUPE C GRADE 1 DIASTOLIC DYSFUNCTION, VERY MILD MR/TR B SHOULDER IMPIGNMENT SYNDROME-09/2015 L SHOULDER XRAY C MILD AC ARTHRITIS//S/P R PROXIMAL HUMERUS FRACTURE S/P MECHANICAL [id number] PER HEBERT RECURRENT HEPATIC ENCEPHALOPATHY-01/2017 MRI BRAIN MILD /VOLUME LOSS ASTHMA CELLULITIS HYPOTHYROIDISM ALLERGIES CIPRO: CONFUSION - SIDE EFFECTS DOXYCYCLINE HYCLATE: ITCHY - ALLERGY MOTRIN: HIVES - ALLERGY SURGICAL HISTORY LINCOLN/BSO FOR NONCANCEROUS REASON-MAGDALENE 2002 EGD/[id number] GASTRITIS/PANDIVERTICULOSIS/LARGE HIATAL HERNIA/NEGATIVE SMALL BOWEL BIOPSY NOVEMBER 2009 NEGATIVE LUMBAR PUNCTURE FOR MS-LUDMILA JANUARY 2008 EGD-HIATAL HERNIA, NO EVIDENCE OF MASS [place]A OF VATER-ROHAN MARCH 2011 HARD PALATE EXCISIONAL BIOPSY-ULCERATED HEMANGIOMA-OPAL MARCH 2011 RIGHT HIP REPAIR AND FEMUR REPAIR BLOOD PRESSURE MARCH 2019 FAMILY HISTORY FATHER: 70 YRS, DIAGNOSED WITH OTHER SPECIFIED CONDITIONS INFLUENCING HEALTH STATUS MOTHER: 60 YRS, OTHER SPECIFIED CONDITIONS INFLUENCING HEALTH STATUS SIBLINGS: ALIVE, DIABETES, HYPERTENSION, UNSPECIFIED HEART DISEASE, UNSPECIFIED NONPSYCHOTIC MENTAL DISORDER FOLLOWING ORGANIC BRAIN DAMAGE DAUGHTER(S): ALIVE 2 BROTHER(S) , 4 SISTER(S) . 3DAUGHTER(S) - HEALTHY. MOTHER- EMPHASEMAFATHER-COPD. SOCIAL HISTORY GENERAL: TOBACCO USE ARE YOU A:NONSMOKER LATEX QUESTIONNAIRE LATEX ALLERGY : HAVE YOU EVER DEVELOPED ANY TYPE OF REACTION AFTER HANDLING LATEX PRODUCTS SUCH RUBBER GLOVES, CONDOMS, DIAPHRAGMS, BALLOONS, SOCKS, OR UNDERWEAR?NO ALLERGY TO SOME TAP - ONLY USES PAPER TAPE LATEX ALLERGY : HAVE YOU EVER DEVELOPED ANY TYPE OF REACTION DURING OR AFTER DENTAL APPOINTMENT, VAGINAL/RECTAL EXAMINATION, SURGICAL PROCEDURE, OR ANY OTHER EXPOSURE?NO DATE ASKED : 01/29/2020 LATEX RISK : HAVE YOU EVER HAD ANY DIFFICULTY BREATHING OR HIVES AFTER EATING OR HANDLING ANY FRUITS, OR VEGETABLES; SUCH KIWI, BANANAS, STONE FRUITS, OR CHESTNUTSNO LATEX RISK : DO YOU HAVE A PREVIOUS PERSONAL HISTORY OF MORE THAN NINE SURGERIES, SPINA BIFIDA, OR REPEATED CATHERIZATIONS? NO LATEX RISK : ARE YOU FREQUENTLY EXPOSED TO LATEX PRODUCTS IN YOUR OCCUPATION?NO BMI CARE GOAL FOLLOW-UP ABOVE NORMAL BMI FOLLOW-UPGIVING ENCOURAGEMENT TO EXERCISE ALCOHOL SCREENING DID YOU HAVE A DRINK CONTAINING ALCOHOL IN THE PAST YEAR?NO POINTS0 INTERPRETATIONNEGATIVE RECREATIONAL DRUG USE DRUG USE?NO CAFFEINE OCCASIONAL ONLY. SEXUAL HX HAD SEX IN THE LAST 12 MONTHS (VAGINAL, ORAL, OR ANAL)?NO HAVE YOU EVER HAD AN STD?NO CHURCH [id number] CHURCH LANGUAGE LANGUAGES SPOKEN:SENEGALESE EDUCATION LEVEL OF EDUCATION:FINISHED HIGH SCHOOL LEARNING BARRIERS / SPECIAL NEEDS CHANGE FROM LAST VISIT?NO BARRIERS TO LEARNING?NO HEARING IMPAIRED?NO VISION IMPAIRED?YES COGNITIVELY IMPAIRED?NO :CORRECTIVE LENSES READINESS TO LEARN?YES LEARNING PREFERENCES?YES :DEMONSTRATION/VERBAL INSTRUCTION LEARNING CAPABILITIES PRESENT?YES EMOTIONAL BARRIERS?NO SPECIAL DEVICES?NO PEST CONTROL WORKER NEEDED?NO DOMESTIC VIOLENCE DO YOU FEEL SAFE IN YOUR ENVIRONMENT?YES OCCUPATION: RETIRED. DIET: CARBOHYDRATE CONTROLLED. EXERCISE: NO REGULAR EXERCISE. MARITAL STATUS: SINGLE. OTHERS AT HOME: NONE. DAUGHTER LIVES NEAR BY.. NEW PATIENT PAIN DIARY TODAY'S VISITNOTES 02/05/2020 PATIENT DESCRIBES PAIN :BURNING, HAVE IT ALL THE TIME, STABBING, SHOOTING FROM 0-10, WHAT LEVEL IS YOUR PAIN TODAY?10 PRECIPITATING FACTORS LAYING IN BED ALLEVIATING FACTORS MEDS IMPACT ON FUNCTION YES PAIN CLINIC PFS, CLERGY, PUBLIC HEALTH REFERRALS HAS THE PATIENT BEEN EDUCATED REGARDING HIS/HER PLAN OF CARE?YES HAS THE PATIENT BEEN EDUCATED REGARDING PAIN, THE RISK FOR PAIN, THE IMPORTANCE OF EFFECTIVE PAIN MANAGEMENT, AND THE PAIN ASSESSMENT PROCESS?YES HOUSING: [facility] KEEP HOME. ADVANCE DIRECTIVE ADVANCE DIRECTIVE DISCUSSED WITH PATIENT:YES JENNA LOCO [phone] HOSPITALIZATION/MAJOR DIAGNOSTIC PROCEDURE RECURRENT NAUSEA/VOMITING-NEGATIVE BLOOD CULTURE X2/NEGATIVE URINE CULTURE APRIL 05-2010 MS CHANGE 2 MEDICATIONS/HEPATIC ENCEPHALOPATHY-PEAK [id number] AMBIEN, VICODIN, ZANAFLEX/NEGATIVE UCX/BCX X2 01/29-02/06/2012 MS CHANGE 2 HEPATIC ENCEPHALOPATY-HEAD CT C MILD ATROPHY 02/2012 MS CHANGE 2 HEPATIC ENCEPHALOPATHY, INCREASED PERIPHERAL EDEMA 04/2012 MS CHANGE ? 2 HEPATIC ENCEPHALOPATHY VS 2 SCHIZOAFFECTIVE DISORDER-ADMISSION NH3 32, NEGATIVE HEAD CT, B12 LEVEL, SX RESOLVED IN HOURS 05/2012 SYMPTOMATIC HYPONATRIEMIA/HYPOKALEMIA (116, 2.9 ON ADMISSION) 2 ESLD/ASCITES C OVERDIURESIS-LASIX 40 BID AND SPIROLACTONE 50 BID HELD 12/30- LLE CELLULITIS-ONSET DAY OF ADMISSION-RXED C ZOSYN 7D THEN CEFTAROLINE 5D-04/25/1409/24 BCX K PNEUMONIA, 04/28/14 UCX NGCS, 05/04, 13, 14-BCX X 1 EACH DAY -, CXR C MILD B PVC, 04/25/2014 - LLE EVT US 04/25- LLE CELLULITIS WITH S. SIMULANS AND C- STAPH BCX 09/24, P. AERUGENOSA BY BCX 09/24 RXED C LEVAQUIN 10D, UCX NG, CT CHEST S/ C - 06/22-06/30/14 INCREASED BLE EDEMA =/- BLE CELLULITIS, ASX UCX C E. COLI ESBL (AFEBRILE, PRESENTING WBC 4.2) RXED C ZOSYN 3D THEN BACTRIM 2D, - BCX X 2, - CXR, - B TIB/FIB XRAY 09/03- LLE CELLULITIS/SIRS- -BCX X 2, -LLE DVT US, RXED C CEFAROLINE BUT D/MOUSTAPHA ON KEFLEX 500 BID, UCX NG, - MRSA SCREEN, ADMISSION WBC 14.3, CRP 7.9 11/14- LLE CELLULITIS-- BCX X 2, SCX C FEW COAG NEG STAPH, RX C CEFTAROLINE IV, D/MOUSTAPHA ON DOXY PO 03/10- LLE CELLULITIS/SIRS-RX C CEFTAROLINE-(ADMISSION WBC 17.9, D/C 5.8, NO CRP/ESR DONE, BCX - X 2) 04/23-03/07 LLE CELLULITIS/SIRS-BETH CHANGED CEFTAROLINE TO KEFLEX 500 QID AND RECOMMENDED 500 QD SUPPRESSION FAVORING RECURRENT MSSA, - NASAL SWAB MRSA SCREEN AND CULTURE, - BCX X2, -MRI L FOOT/THIGH, -LLE DVT US 06/15-06/23/15 ACUTE HYPOXIC RESPIRATORY FAILURE 2 ARDS FROM ASPIRATION PN/CARDIOGENIC SHOCK-ON MECHANICAL VENTILATION X 1W, RUE NONOCCLUSIVE CEPHALIC DVT-NOT TREATED/THEN TO [facility] UNTIL 07/05/1604/04-04/26/16 BROKEN SHOULDER- ALC FOR 2 WEEK 10/15-10/17/16 HEPATIC ENCEPHALOPATHY 01/02/17-01/04/17 HEPATIC ENCEPHALOPATHY, DECOMPENSATED CHF, UTI, - BLE DVT US 04/18-04/30/17 REVIEW OF SYSTEMS REVIEWED BY: PROVIDER: CAMACHO HERNANDEZ MD . CONSTITUTIONAL: ANY CHANGE IN YOUR MEDICAL CONDITION? NO . CHILLS NO . FEVER NO . INFECTION: DO YOU HAVE NEW INFECTIONS? NO . DO YOU HAVE HISTORY OF MRSA? NO . MUSCULOSKELETAL: ANY NEW PATTERNS OF PAIN OR NUMBNESS? NO . GASTROENTEROLOGY: ANY NEW CHANGE IN BOWEL CONTROL? NO . GENITOURINARY: ANY NEW CHANGE IN BLADDER CONTROL? NO . IS THERE A CHANCE YOU COULD BE ? NO . HEMATOLOGY/LYMPH: DO YOU TAKE ANY BLOOD THINNERS? (FOR EXAMPLE- COUMADIN, PLAVIX, AGGRENOX, PLATEL, PRADAXA, OR XARELTO) NO . WHEN WAS YOUR LAST DOSE? DATE: TIME: . NEUROLOGY: HAVE YOU FALLEN IN THE PAST 12 MONTHS? NO . ANY NEW EXTREMITY NUMBNESS OR WEAKNESS? NO . CARDIOLOGY: DO YOU HAVE A PACEMAKER OR DEFIBRILLATOR? NO . RESPIRATORY: HAVE YOU BEEN SICK IN THE PAST WEEK? NO . FEVER NO . FLU LIKE SYMPTOMS? NO . COUGH NO . INTEGUMENTARY: DO YOU HAVE ANY RASHES OR OPEN SORES? YES, BLISTERS ON ABD AND LEFT LEG . ALLERGIC/IMMUNO: ARE YOU ALLERGIC TO IV DYE? NO . ANY NEW ALLERGIES? NO . PSYCHIATRIC: DO YOU HAVE THOUGHTS OF HURTING YOURSELF OR SOMEONE ELSE? NO . ARE YOU ABUSED, NEGLECTED, OR IN AN UNSAFE ENVIRONMENT? NO . ENDOCRINOLOGY: ARE YOU DIABETIC? YES- FSBS @10 AM 95 . OTHER: DO YOU NEED ANY PRESCRIPTIONS? NO . IF YES, PLEASE LIST: ____ . ANY NEW PROBLEMS WITH YOUR MEDICATIONS? NO . WHEN DID YOU LAST EAT? 02/05/2020 0400 . WHEN DID YOU LAST DRINK? 02/05/2020 0800 . WHAT DID YOU LAST DRINK? WATER . NAME OF PERSON DRIVING YOU HOME? [facility] . DO YOU HAVE ANY OTHER QUESTIONS OR CONCERNS NO . VITAL SIGNS WT 274.0 LBS, HT 78 IN, BMI 31.66 INDEX, BP 148/77 MM HG, HR 76 /MIN, RR 18 /MIN, TEMP 97.0 F, OXYGEN SAT % 96%, BLOOD GLUCOSE LEVEL 95@ 10 AM, SAFE IN ENV? (Y/N) YES, NA INITIALS AW 1014, REVIEWED BY: VAHID. EXAMINATION GENERAL EXAMINATION: THE PATIENT IS ALERT, ORIENTED TIMES THREE AND COOPERATIVE. THERE WAS TENDERNESS OF THE PARASPINOUS MUSCLE AND THERE WERE BANDS OF TISSUE WITH RESTRICTION OF MOVEMENT PRESENT IN THE TRIGGER POINTS. THE PATIENT IS SITTING IN A WHEELCHAIR. ASSESSMENTS MYALGIA, OTHER SITE - M79.18 (PRIMARY) TREATMENT MYALGIA, OTHER SITE CLINICAL NOTES: WE DISCUSSED SEVERAL ALTERNATIVES WITH MS. FARFAN REGARDING HER TREATMENT OPTIONS AND CARE. WE AGREED TO DO RIGHT AND LEFT LOWER BACK TRIGGER POINT INJECTIONS ON THE PATIENT TODAY. OTHERS CLINICAL NOTES: PRE SCREENING CALL DONE 02/04/20 EM. PROCEDURES PN TRIGGER POINT INJECTION NO STEROIDS DATE OF PROCEDURE : PRE PROCEDURE DIAGNOSIS 1. MYALGIA 2. PAIN AT BILATERAL LOWER BACK AREA POST PROCEDURE DIAGNOSIS 1. MYALGIA 2. PAIN AT BILATERAL LOWER BACK AREA PROCEDURE TRIGGER POINT INJECTION AT BILATERAL LOWER BACK AREA SURGEON DR. CAMACHO HERNANDEZ RIVETING MACHINE OPERATOR NONE ANESTHESIA LOCAL PRE PROCEDURE NOTE 64-YEAR-OLD PATIENT WITH HISTORY OF CHRONIC PAIN AT RIGHT AND LEFT LOWER BACK AREA. I EVALUATED THE PATIENT AND REVIEWED THE CHART. THERE IS EVIDENCE OF BANDS OF TISSUE WITH RESTRICTION OF MOVEMENT AND PRESENCE OF TRIGGER POINT AT THE RIGHT AND LEFT LOWER BACK AREA. I WENT OVER THE RISKS, ALTERNATIVES, AND BENEFITS ASSOCIATED WITH THIS PROCEDURE. THE PATIENT WOULD LIKE TO PROCEED AND GAVE CONSENT TO PERFORM THE PROCEDURE. THE PATIENT DENIES UNEXPLAINABLE WEIGHT LOSS, FEVER, CHILLS, OR NEW CHANGES IN URINARY OR BOWEL CONTROL. THE PATIENT IS COVID-19 NEGATIVE DESCRIPTION OF PROCEDURE THE PATIENT WAS BROUGHT TO THE PROCEDURE ROOM AND PLACED IN THE SITTING POSITION. THE AREA WAS CLEANED WITH ALCOHOL. THE PROCEDURE WAS DONE USING ASEPTIC STERILE TECHNIQUES. I CHECKED LATERALITY AND THE LEVEL WHERE THE PROCEDURE WAS GOING TO BE PERFORMED WITH THE PATIENT AND THE SUPPORTING STAFF AT THE MOMENT OF THE TIME OUT IN THE PROCEDURE ROOM. USING A 25-GAUGE NEEDLE, TRIGGER POINTS WERE INJECTED INTO THE RIGHT AND LEFT LOWER BACK AREA WITH A TOTAL OF 40 ML OF BUPIVACAINE 0.25%. AGREED WITH THE PATIENT THE PROCEDURE WAS DONE WITHOUT STEROIDS. THERE WAS NO EVIDENCE OF BLOOD, PARESTHESIA OR CEREBROSPINAL FLUID DURING THE PROCEDURE. THE PATIENT WAS SENT TO THE RECOVERY ROOM. THE PATIENT WAS MOVING THE EXTREMITIES AND DOING WELL. THERE WAS NO COMPLICATION DURING THE PROCEDURE POST PROCEDURE NOTE THE PATIENT WILL BE SEEN IN A FOLLOW UP IN THE NEXT FEW WEEKS. I AM LOOKING FOR LONG LASTING PAIN RELIEF FOR THE PATIENT WITH THIS INJECTION. INSTRUCTIONS WERE GIVEN, QUESTIONS WERE ANSWERED, AND THE PATIENT EXPRESSED UNDERSTANDING AND AGREED WITH THE PLAN. I, SYDNEY FAIRBANKS, DOCUMENTED THE ABOVE INFORMATION ACTING A SCRIBE FOR DR. HERNANDEZ. I HAVE REVIEWED THE ABOVE DOCUMENT, WRITTEN BY SYDNEY FAIRBANKS, POWER MARKETER, AND I VERIFY THAT IT IS ACCURATE PROCEDURE CODES 84554 INJ TRIGGER POINT 1/2 MUSCL DISPOSITION & COMMUNICATION FOLLOW UP F/UP WITH AIRCRAFT PART ASSEMBLER (REASON: POST TPI- DENIS LOWER BACK) ELECTRONICALLY SIGNED BY CAMACHO HERNANDEZ MD, MD ON 02/05/2020 AT 05:03 PM EDT DISCLAIMER : THIS IS A VISIT SUMMARY EXTRACTED FROM THE [employer] CHART. IT IS NOT A COPY OF THE [employer] PROGRESS NOTE. ALTAGRACIA
== END ==
LOC: M PAIN 10:15
PROVIDERS: ATTEND Anesthesiology
DX: M79.18 Myalgia, other site (principal); M54.5 Low back pain; E11.9 Type 2 diabetes mellitus without complications; I10 Essential (primary) hypertension; Z79.4 Long term (current) use of insulin; Z79.899 Other long term (current) drug therapy; Z88.1 Allergy status to other antibiotic agents; Z88.8 Allergy status to other drugs, medicaments and biological substances

== ENCOUNTER → 2020-02-09 | Outpatient (REF) ==
[~2020-02-09] MED LIST changes: -BUPIVACAINE HCL 0.25% 10ML VIAL As Ordered ONE; -BUPIVACAINE HCL 0.25% 30ML VIAL As Ordered ONE; -oxyCODONE 5MG TAB As Ordered ONE
== END ==
LOC: SKLAB7 14:28
PROVIDERS: ATTEND Family Medicine
DX: S31.109A Unspecified open wound of abdominal wall, unspecified quadrant without penetration into peritoneal cavity, initial encounter (principal)

== ENCOUNTER → 2020-02-16 | Outpatient (REF) | payer MEDICARE, MEDICAID ==
[~2020-02-16] MED LIST changes: -LACT10SO29 PO; +LACT20EL PO
[2020-02-16 10:32] LABS: CALCIUM LEVEL 8.8 MG/DL (8.8-10.2); CREATININE FOR GFR 1.7 MG/DL (0.55-1.30); GLOMERULAR FILTRATION RATE 32.1 (>45); POTASSIUM SERUM 3.9 MEQ/L (3.5-5.1)
== END ==
LOC: SKLAB5 08:23
PROVIDERS: ATTEND Family Medicine
DX: K74.60 Unspecified cirrhosis of liver (principal)

== ENCOUNTER → 2020-02-26 | Outpatient (CLI) | payer MEDICARE, MEDICAID ==
[~2020-02-26] MED LIST changes: +ASPI1CHW3 PO; +ASPI81TAEC PO; +ATOR40TA75 PO; +BIOF4GEL4 EXT; +CEPH500T PO; +CHERLOZ MT; +CLIN150C15 PO; +DIPH25CA32 PO; -FLUO10CA15 PO; +FLUO10CA16 PO; +GABA-282 PO; -GABA-843 PO; +HYDR1CAP25 PO; -MAG400TA PO; +MAGN400T35 PO; +MYLASSUD PO; +OXYC10TA12 PO; +PROP20TA72 PO; +RISATAB3 PO
--- NOTE | 2020-03-02 02:04 | ECWPNPC ---
PATIENT NAME: HODAN FARFAN : 1955 GENDER: FEMALE VISIT DATE: 02/26/2020 DISCHARGE DATE: 02/26/20 1229 VISIT LOCKED DATE TIME: PHYSICIAN: CAMACHO HERNANDEZ MD PHYSICIAN PAGER NO: [phone] RESOURCE: CAMACHO HERNANDEZ MD REASON FOR APPOINTMENT 1. POST TPI HISTORY OF PRESENT ILLNESS GENERAL: 64 YEAR OLD FEMALE PATIENT WITH A HISTORY OF CHRONIC LOW BACK PAIN. THE PATIENT DESCRIBES HER PAIN ACHING, CONTINUOUS, THROBBING, SHOOTING WITH A PAIN SCORE OF 6-9/10 DEPENDING ON PHYSICAL ACTIVITY. THE PATIENT STATES HER PAIN BEGINS IN HER LOW BACK AND RADIATES DOWN MAINLY THE BACK OF HER LEFT LEG. THE PATIENT RECEIVED A TRIGGER POINT INJECTION WITHOUT STEROIDS, THAT PROVIDED A FEW HOURS OF PAIN RELIEF FOR HER. THE PATIENT IS INTERESTED IN TRYING A TRIGGER POINT INJECTION WITH STEROIDS. THE PATIENT DENIES UNEXPLAINED WEIGHT LOSS, FEVER, CHILLS, NEW CHANGES IN HER URINARY OR BOWEL CONTROL. FALL RISK SCREENING: SCREENING :NO FALLS REPORTED IN THE LAST YEAR PAIN SCREENING: PATIENT HAS A COMPLAINT OF ACUTE OR CHRONIC PAIN :YES LOCATION OF PAIN:LOW BACK, LEG(S), LEFT HIP, RIGHT HIP INTENSITY OF PAIN (SCALE OF 1 TO 10):8 WHAT DOES YOUR PAIN FEEL LIKE:ACHING, CONTINOUS, THROBBING, SHOOTING DURATION:CONTINOUS PAIN IS INCREASED BY:ACTIVITIES SITTING PAIN IS DECREASED BY:OTHERS ELEVATION OF LEGS NURSING NOTE: -. PAIN CENTER INTAKE QUESTIONS: DO YOU HAVE A HISTORY OF MRSA? :YES STATES IS BEING TREATED WITH ANTIBIOTIC FOR CURRENT MRSA INFECTION ON ABDOMEN DO YOU TAKE A BLOOD THINNERS? :NO DO YOU HAVE ANY BLEEDING DISORDERS? :NO ANY NEW NUMBNESS OR WEAKNESS IN YOUR LEGS OR ARMS? :NO ANY PACEMAKER,DEFIBRILLATOR, OR DORSAL COLUMN STIMULATOR? :NO DO YOU HAVE ANY RASHES OR OPEN SORES? :YES LEFT LEG AND ABDOMEN ARE YOU ALLERGIC TO IV DYE? :NO ARE YOU DIABETIC? :YES ANY NEW PROBLEMS WITH YOUR MEDICATIONS? :NO HAVE YOU RECEIVED A VACCINE IN THE PAST 30 DAYS? :NO DO YOU PLAN TO RECEIVE A VACCINE IN THE NEXT 21 DAYS? :NO DO YOU NEED ANY PRESCRIPTION? :NO DO YOU TAKE ANY IMMUNOSUPPRESSIVE MEDICATIONS? :NO CURRENT MEDICATIONS TAKING WHEELCHAIR 1 MISCELLANEOUS DIRECTED M51.16 DAILY TAKING WHEELCHAIR _ MISCELLANEOUS DIRECTED D X: R27.0 DAILY, NOTES: COLE [phone] TAKING GLUCOMETER (VERIO IQ) 1 GLUCOMETER DIRECTED E11.8 FOUR TIMES DAILY TAKING BL LANCETS 1 1 LANCET E11.8 FOUR TIMES DAILY TAKING ONETOUCH VERIO 1 STRIP 1 STRIP E11.9 BID TAKING DEPEND PANT EXTRA LARGE DEPENDS MISCELLANEOUS SUPER ABSORBENT HIP - 155 CM; WAIST - 146 CM ICD:N39.490 EVERY 2-4 HOURS NEEDED MDD: 5 BRIEFS TAKING LEVOTHYROXINE SODIUM 50 MCG TABLET 1 CAPSULE ORALLY ONCE A DAY, NOTES: 02/05/2020 0800 TAKING MAGNESIUM 400 MG CAPSULE 1 TABLET WITH A MEAL ORALLY TWICE A DAY, NOTES: 02/05/2020 0400 TAKING SPIRONOLACTONE 50 MG TABLET 1 TAB ORALLY BID, NOTES: 02/05/2020 08 TAKING METOPROLOL TARTRATE 25 MG TABLET 1 TABLET WITH FOOD ORALLY TWICE A DAY, NOTES: 02/05/2020 08 TAKING SPIRIVA HANDIHALER 18 MCG CAPSULE 1 CAPSULE INHALATION ONCE A DAY, NOTES: 02/05/2020 08 TAKING INSULIN PEN NEEDLE 31G X 6 MM MISCELLANEOUS DIRECTED SQ DAILY BEFORE BEDTIME DX:E11.8 TAKING ONETOUCH VERIO - STRIP DIRECTED SUBCUTANEOUSLY AC BID TAKING TORSEMIDE 10 MG TABLET 1 TABLET ORALLY BID, NOTES: 02/05/2020 08 TAKING GABAPENTIN 600 MG TABLET 1 TABLET ORALLY BID, NOTES: 02/05/2020 08 TAKING DULOXETINE HCL 30 MG CAPSULE DELAYED RELEASE PARTICLES 1 CAPSULE ORALLY BID, NOTES: 02/05/2020 08 TAKING ROLLER WALKER 1 MISCELLANEOUS DIRECTED M47.816 DAILY TAKING COMPRESSION STOCKINGS 20-30 MMHG DIRECTED L03.116 DAILY TAKING LACTULOSE 20 GM/30ML SOLUTION 15 ML ORALLY TID, NOTES: 02/05/2020 08 TAKING LANTUS 100 UNIT/ML SOLUTION 60 IN THE AM AND 55 IN THE EVENING SUBCUTANEOUS , NOTES: 02/04/2020 08 TAKING OMEPRAZOLE 20 MG CAPSULE DELAYED RELEASE 1 CAPSULE 30 MINUTES BEFORE MORNING MEAL ORALLY ONCE A DAY, NOTES: 02/05/2020 08 TAKING POTASSIUM CHLORIDE JYOTSNA ER 10 MEQ TABLET EXTENDED RELEASE 1 TABLET WITH FOOD ORALLY THREE TIMES DAILY, NOTES: 02/05/2020 08 TAKING RIFAXIMIN 550 MG TABLET 1 TABLET ORALLY TWICE A DAY, NOTES: 02/05/2020 0800 TAKING ACETAMINOPHEN 325 MG TABLET 2 TABLETS NEEDED ORALLY EVERY 4 HRS, NOTES: PRN TAKING BENADRYL ALLERGY 25 MG CAPSULE 1 CAPSULE AT BEDTIME NEEDED ORALLY EVERY 6 HOURS PRN, NOTES: 02/04/2020 2100 TAKING ONDANSETRON HCL 4 MG TABLET 1 TABLET ORALLY Q 6 HOURS PRN, NOTES: PRN TAKING MILK OF MAGNESIA 2400 MG/30ML SUSPENSION 10 ML NEEDED ORALLY DAILY, NOTES: PRN TAKING BIOFREEZE EVERY 6 HOURS NEEDED, NOTES: PRN TAKING BUTRANS 15 MCG/HR PATCH WEEKLY 1 PATCH TO SKIN TRANSDERMAL WEEKLY, REMOVE OLD PATCH TAKING OXYCODONE HCL 15 MG TABLET 1 TABLET NEEDED ORALLY EVERY 4 HRS FOR PAIN MDD=6 TAKING BACTRIM DS 800-160 MG TABLET 1 TABLET ORALLY TWICE A DAY TAKING ALBUTEROL SULFATE (2.5 MG/3ML) 0.083% NEBULIZATION SOLUTION 3 ML NEEDED INHALATION EVERY 2 HRS TAKING ENEMA DISPOSABLE - ENEMA DIRECTED RECTAL TAKING GUAIASORB DM 10-100 MG/5ML LIQUID 10 ML NEEDED ORALLY EVERY 4 HRS TAKING COUGH DROPS MENTHOL - LOZENGE DIRECTED MOUTH/THROAT NEEDED EVERY HOUR NOT-TAKING COLACE 100 MG CAPSULE 1 CAPSULE NEEDED ORALLY ONCE A DAY, NOTES: 02/04/2020 0800 NOT-TAKING BUTRANS 10 MCG/HR PATCH WEEKLY 1 PATCH TO SKIN TRANSDERMAL CHANGE PATCH EVERY 7 DAYS NOT-TAKING FAMOTIDINE 20 MG TABLET 1 TABLET AT BEDTIME ORALLY ONCE A DAY NOT-TAKING FERROUS SULFATE 325 (65 FE) MG TABLET 1 TABLET ORALLY ONCE A DAY NOT-TAKING XIFAXAN 550 MG TABLET 1 TABLET ORALLY TWICE A DAY NOT-TAKING TOUJEO SOLOSTAR 300 UNIT/ML SOLUTION PEN-INJECTOR DIRECTED SUBCUTANEOUS 80 UNITS IN AM 70 UNITS AT HS NOT-TAKING FISH OIL 1000 MG CAPSULE 1 CAPSULE ORALLY ONCE A DAY, NOTES: OTC NOT-TAKING KRISTALOSE 10 GM PACKET 1 PACKET ORALLY ONCE A DAY NOT-TAKING LIDODERM 5 % PATCH 1 PATCH REMOVE AFTER 12 HOURS EXTERNALLY ONCE A DAY NOT-TAKING TIZANIDINE HCL 4 MG TABLET 1 TABLET NEEDED ORALLY FOUR TIMES DAILY NOT-TAKING DIFLUCAN 100 MG TABLET 1 TABLET ORALLY BID NOT-TAKING HYDROXYZINE HCL 25 MG TABLET 1 TABLET NEEDED ORALLY EVERY 8 HRS NOT-TAKING NYSTATIN [id number] UNIT/GM CREAM 1 APPLICATION EXTERNALLY TWICE A DAY NOT-TAKING TRAMADOL HCL 50 MG TABLET 1 TABLET NEEDED ORALLY TID PRN PAIN NOT-TAKING KEFLEX 500 MG CAPSULE 1 CAPSULE ORALLY EVERY 12 HRS NOT-TAKING METOLAZONE 5 MG TABLET 1 TABLET ORALLY ONCE A DAY MEDICATION LIST REVIEWED AND RECONCILED WITH THE PATIENT PAST MEDICAL HISTORY OBESITY, MORBID CERVICAL/THORACIC/LUMBAR DJD-L2-S1 DIFFUSE BULGES-AT L5/S1 ABUTTING TS, B S1 PERIPHERAL EDEMA-01/2011 FBE-[id number] 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 BARAHONA, [facility], [place] OBSTRUCTIVE SLEEP APNEA HYPERLIPIDEMIA 2B COPD-07/2011 FEV1 1.9L (71%)/RATIO 92% T2DM ID GERD/HIATAL HERNIA-SEEN BY APRIL 2011 UPPER GI WITH SMALL BOWEL FOLLOW-THROUGH SCHIZOAFFECTIVE DISORDER-SPELLED BY DR. OSBORNE NONALCOHOLIC FATTY LIVER DISEASE-SEEN BY MARCH 2011 CT-NORMAL WORKUP 2010--CHRONIC HEPATITIS GRADE 2/4 WITH GRADE 4/4 CIRRHOSIS BY LIVER BIOPSY JULY 2011 VASOMOTOR SYMPTOMS VITAMIN D DEFICIENCY ALLERGIC RHINITIS RECURRENT CANDIDAL DERMATITIS ANTERIOR ABDOMEN LEUKOPENIA, CHRONIC CHRONIC ANTERIOR ABDOMINAL WALL PANNICULITIS PORTAL VENOUS HYPERTENSION SEEN BY MARCH 2011 CT CKD III-12/2013 NORMAL B RENAL US CHF 2 DIASTOLIC DYSFUNCTION-01/2017 TTE-GUADALUPE C GRADE 1 DIASTOLIC DYSFUNCTION, VERY MILD MR/TR B SHOULDER IMPIGNMENT SYNDROME-09/2015 L SHOULDER XRAY C MILD AC ARTHRITIS//S/P R PROXIMAL HUMERUS FRACTURE S/P MECHANICAL EIHM-PAL-MDPLLOYN PER HEBERT RECURRENT HEPATIC ENCEPHALOPATHY-01/2017 MRI BRAIN MILD /VOLUME LOSS ASTHMA CELLULITIS HYPOTHYROIDISM MRSA (PER PT REPORT) ABDOMEN ALLERGIES CIPRO: CONFUSION - SIDE EFFECTS DOXYCYCLINE HYCLATE: ITCHY - ALLERGY MOTRIN: HIVES - ALLERGY SURGICAL HISTORY LINCOLN/BSO FOR NONCANCEROUS REASON-MAGDALENE 2002 EGD/NAPYHIRGWMY-[id number] GASTRITIS/PANDIVERTICULOSIS/LARGE HIATAL HERNIA/NEGATIVE SMALL BOWEL BIOPSY NOVEMBER 2009 NEGATIVE LUMBAR PUNCTURE FOR MS-LUDMILA JANUARY 2008 EGD-HIATAL HERNIA, NO EVIDENCE OF MASS AMPULLA OF VATER-ROHAN MARCH 2011 HARD PALATE EXCISIONAL BIOPSY-ULCERATED HEMANGIOMA-OPAL MARCH 2011 RIGHT HIP REPAIR AND FEMUR REPAIR BLOOD PRESSURE MARCH 2019 FAMILY HISTORY FATHER: 70 YRS, DIAGNOSED WITH OTHER SPECIFIED CONDITIONS INFLUENCING HEALTH STATUS MOTHER: 60 YRS, OTHER SPECIFIED CONDITIONS INFLUENCING HEALTH STATUS SIBLINGS: ALIVE, DIABETES, HYPERTENSION, UNSPECIFIED HEART DISEASE, UNSPECIFIED NONPSYCHOTIC MENTAL DISORDER FOLLOWING ORGANIC BRAIN DAMAGE DAUGHTER(S): ALIVE 2 BROTHER(S) , 4 SISTER(S) . 3DAUGHTER(S) - HEALTHY. MOTHER- EMPHASEMAFATHER-COPD. SOCIAL HISTORY GENERAL: TOBACCO USE ARE YOU A:NONSMOKER LATEX QUESTIONNAIRE LATEX ALLERGY : HAVE YOU EVER DEVELOPED ANY TYPE OF REACTION AFTER HANDLING LATEX PRODUCTS SUCH RUBBER GLOVES, CONDOMS, DIAPHRAGMS, BALLOONS, SOCKS, OR UNDERWEAR?NO ALLERGY TO SOME TAP - ONLY USES PAPER TAPE LATEX ALLERGY : HAVE YOU EVER DEVELOPED ANY TYPE OF REACTION DURING OR AFTER DENTAL APPOINTMENT, VAGINAL/RECTAL EXAMINATION, SURGICAL PROCEDURE, OR ANY OTHER EXPOSURE?NO DATE ASKED : 01/29/2020 LATEX RISK : HAVE YOU EVER HAD ANY DIFFICULTY BREATHING OR HIVES AFTER EATING OR HANDLING ANY FRUITS, OR VEGETABLES; SUCH KIWI, BANANAS, STONE FRUITS, OR CHESTNUTSNO LATEX RISK : DO YOU HAVE A PREVIOUS PERSONAL HISTORY OF MORE THAN NINE SURGERIES, SPINA BIFIDA, OR REPEATED CATHERIZATIONS? NO LATEX RISK : ARE YOU FREQUENTLY EXPOSED TO LATEX PRODUCTS IN YOUR OCCUPATION?NO BMI CARE GOAL FOLLOW-UP ABOVE NORMAL BMI FOLLOW-UPGIVING ENCOURAGEMENT TO EXERCISE ALCOHOL SCREENING DID YOU HAVE A DRINK CONTAINING ALCOHOL IN THE PAST YEAR?NO POINTS0 INTERPRETATIONNEGATIVE RECREATIONAL DRUG USE DRUG USE?NO DENIES 02/26/20 CAFFEINE OCCASIONAL ONLY. SEXUAL HX HAD SEX IN THE LAST 12 MONTHS (VAGINAL, ORAL, OR ANAL)?NO HAVE YOU EVER HAD AN STD?NO SCIENTOLOGIST [id number] RESTORATIONISM LANGUAGE LANGUAGES SPOKEN:TELUGU EDUCATION LEVEL OF EDUCATION:FINISHED HIGH SCHOOL LEARNING BARRIERS / SPECIAL NEEDS CHANGE FROM LAST VISIT?NO BARRIERS TO LEARNING?NO HEARING IMPAIRED?NO VISION IMPAIRED?YES COGNITIVELY IMPAIRED?NO :CORRECTIVE LENSES READINESS TO LEARN?YES LEARNING PREFERENCES?YES :DEMONSTRATION/VERBAL INSTRUCTION LEARNING CAPABILITIES PRESENT?YES EMOTIONAL BARRIERS?NO SPECIAL DEVICES?NO HEAVY EQUIPMENT SUPERVISOR NEEDED?NO DOMESTIC VIOLENCE DO YOU FEEL SAFE IN YOUR ENVIRONMENT?YES OCCUPATION: RETIRED. DIET: CARBOHYDRATE CONTROLLED. EXERCISE: NO REGULAR EXERCISE. MARITAL STATUS: SINGLE. OTHERS AT HOME: NONE. DAUGHTER LIVES NEAR BY.. NEW PATIENT PAIN DIARY TODAY'S VISITNOTES 02/26/2020 PATIENT DESCRIBES PAIN :BURNING, HAVE IT ALL THE TIME, STABBING, SHOOTING FROM 0-10, WHAT LEVEL IS YOUR PAIN TODAY?8 PRECIPITATING FACTORS LAYING IN BED ALLEVIATING FACTORS MEDS IMPACT ON FUNCTION YES PAIN CLINIC PFS, CLERGY, PUBLIC HEALTH REFERRALS HAS THE PATIENT BEEN EDUCATED REGARDING HIS/HER PLAN OF CARE?YES HAS THE PATIENT BEEN EDUCATED REGARDING PAIN, THE RISK FOR PAIN, THE IMPORTANCE OF EFFECTIVE PAIN MANAGEMENT, AND THE PAIN ASSESSMENT PROCESS?YES HOUSING: [employer] KEEP HOME. ADVANCE DIRECTIVE ADVANCE DIRECTIVE DISCUSSED WITH PATIENT:YES JENNA LOCO [phone] - PT STATES IS HER PIN PULLER BUT NOT HER HEALTH CARE PROXY HOSPITALIZATION/MAJOR DIAGNOSTIC PROCEDURE RECURRENT NAUSEA/VOMITING-NEGATIVE BLOOD CULTURE X2/NEGATIVE URINE CULTURE APRIL 05-2010 MS CHANGE 2 MEDICATIONS/HEPATIC ENCEPHALOPATHY-PEAK [id number] AMBIEN, VICODIN, ZANAFLEX/NEGATIVE UCX/BCX X2 01/29-02/06/2012 MS CHANGE 2 HEPATIC ENCEPHALOPATY-HEAD CT C MILD ATROPHY 02/2012 MS CHANGE 2 HEPATIC ENCEPHALOPATHY, INCREASED PERIPHERAL EDEMA 04/2012 MS CHANGE ? 2 HEPATIC ENCEPHALOPATHY VS 2 SCHIZOAFFECTIVE DISORDER-ADMISSION NH3 32, NEGATIVE HEAD CT, B12 LEVEL, SX RESOLVED IN HOURS 05/2012 SYMPTOMATIC HYPONATRIEMIA/HYPOKALEMIA (116, 2.9 ON ADMISSION) 2 ESLD/ASCITES C OVERDIURESIS-LASIX 40 BID AND SPIROLACTONE 50 BID HELD 12/30- LLE CELLULITIS-ONSET DAY OF ADMISSION-RXED C ZOSYN 7D THEN CEFTAROLINE 5D-04/25/142 BCX K PNEUMONIA, 04/28/14 UCX NGCS, 05/04, , -BCX X 1 EACH DAY -, CXR C MILD B PVC, 04/25/2014 - LLE EVT US 04/25- LLE CELLULITIS WITH S. SIMULANS AND C- STAPH BCX 09/24, P. AERUGENOSA BY BCX /2 RXED C LEVAQUIN 10D, UCX NG, CT CHEST S/ C - 06/22-06/30/14 INCREASED BLE EDEMA =/- BLE CELLULITIS, ASX UCX C E. COLI ESBL (AFEBRILE, PRESENTING WBC 4.2) RXED C ZOSYN 3D THEN BACTRIM 2D, - BCX X 2, - CXR, - B TIB/FIB XRAY 09/03- LLE CELLULITIS/SIRS- -BCX X 2, -LLE DVT US, RXED C CEFAROLINE BUT D/MOUSTAPHA ON KEFLEX 500 BID, UCX NG, - MRSA SCREEN, ADMISSION WBC 14.3, CRP 7.9 11/14- LLE CELLULITIS-- BCX X 2, SCX C FEW COAG NEG STAPH, RX C CEFTAROLINE IV, D/MOUSTAPHA ON DOXY PO 03/10- LLE CELLULITIS/SIRS-RX C CEFTAROLINE-(ADMISSION WBC 17.9, D/C 5.8, NO CRP/ESR DONE, BCX - X 2) 04/23-03/07 LLE CELLULITIS/SIRS-BETH CHANGED CEFTAROLINE TO KEFLEX 500 QID AND RECOMMENDED 500 QD SUPPRESSION FAVORING RECURRENT MSSA, - NASAL SWAB MRSA SCREEN AND CULTURE, - BCX X2, -MRI L FOOT/THIGH, -LLE DVT US 06/15-06/23/15 ACUTE HYPOXIC RESPIRATORY FAILURE 2 ARDS FROM ASPIRATION PN/CARDIOGENIC SHOCK-ON MECHANICAL VENTILATION X 1W, RUE NONOCCLUSIVE CEPHALIC DVT-NOT TREATED/THEN TO [facility] UNTIL 07/05/1604/04-04/26/16 BROKEN SHOULDER- ALC FOR 2 WEEK 10/15-10/17/16 HEPATIC ENCEPHALOPATHY 01/02/17-01/04/17 HEPATIC ENCEPHALOPATHY, DECOMPENSATED CHF, UTI, - BLE DVT US 04/18-04/30/17 REVIEW OF SYSTEMS CONSTITUTIONAL: ANY RECENT FEVER OR ILLNESS NO . CHILLS NO . GASTROENTEROLOGY: BOWEL INCONTINENCE NO . ANY NEW CHANGE IN BOWEL CONTROL? NO . ABDOMINAL PAIN YES . CONSTIPATION NO . GENITOURINARY: ANY NEW CHANGE IN BLADDER CONTROL? NO . IS THERE A CHANCE YOU COULD BE ? NO . URINARY INCONTINENCE NO . CARDIOLOGY: CHEST PRESSURE YES . CHEST PAIN PATIENT ADMITS . RESPIRATORY: COUGH YES . SHORTNESS OF BREATH ADMITS . VITAL SIGNS WT 268 LBS, HT 78 IN, BMI 30.97 INDEX, BP 128/72 MM HG, HR 68 /MIN, RR 18 /MIN, TEMP 98.2 F, OXYGEN SAT % 100%, NA INITIALS AW 1055, REVIEWED BY: LS. EXAMINATION GENERAL: PATIENT IS ALERT O X 3 AND COOPERATIVE. LUNGS CLEAR, TO AUSCULTATION. HEART: NO MURMURS OR GALLOPS; FACIAL CRANIAL NERVES ARE GROSSLY NORMAL. GOOD SYMMETRY OF FACIAL MUSCLE MOVEMENT. NORMAL VISUAL PEREZ. PATIENT IS IN A WHEELCHAIR. LEFT LEG IS A LITTLE WEAKER AT EXTENSION AND FLEXION. MODIFIED STRAIGHT LEG RAISE OF THE LEFT LEG IS POSITIVE AT APPROXIMATELY 70 DEGREES FOR RADICULOPATHY. MRI OF THE LUMBAR SPINE DONE ON 04/25/2017 SHOWS BULGING DISC AT L5-S1 AND CENTRAL CANAL STENOSIS AT L4-L5. TENDERNESS OVER THE PARASPINAL MUSCLE GROUP OF THE LOW BACK. PRESENCE OF BANDS OF TISSUE AND TRIGGER POINTS WITH RESTRICTION OF MOVEMENT OF THE LOW BACK. ASSESSMENTS MYALGIA, OTHER SITE - M79.18 (PRIMARY) OTHER CHRONIC PAIN - G89.29 LOW BACK PAIN - M54.5 INTERVERTEBRAL DISC DISORDERS WITH RADICULOPATHY, LUMBAR REGION - M51.16 TREATMENT MYALGIA, OTHER SITE CLINICAL NOTES: WE DISCUSSED SEVERAL ISSUES WITH MS. FARFAN'S PAIN MANAGEMENT CASE. I WOULD LIKE TO ORDER FOR A LUMBAR CT SINCE THE PATIENT'S LAST LUMBAR MRI WAS DONE IN 2017. THE PATIENT HAD PAST CLAUSTROPHOBIA ISSUES IN THE PAST WITH PERFORMING AN MRI, THEREFORE I WILL ORDER FOR A CT SCAN. THE PATIENT WILL FOLLOW UP IN SEVERAL WEEKS TO GO OVER THE CT RESULTS. I MAY CONSIDER A LUMBAR EPIDURAL IN THE FUTURE, DEPENDING ON THE NEW LUMBAR MRI RESULTS. DUE TO THE TRIGGER POINTS, BANDS OF TISSUE, AND RESTRICTION OF MOVEMENT, I WOULD LIKE TO MOVE FORWARD WITH A LOW BACK TRIGGER POINT INJECTION AT THIS TIME. WE DISCUSSED THE BENEFITS, RISKS, AND ALTERNATIVES OF THE INJECTION AND THE PATIENT WOULD LIKE TO PROCEED. I AM LOOKING FOR LONG LASTING PAIN RELIEF FROM THIS INJECTION FOR THE PATIENT. WE DISCUSSED THE CONCERNS OF STEROIDS POTENTIALLY CAUSING IMMUNOSUPPRESSION SHORT-TERM AND FURTHER COMPLICATIONS IF THEY COME IN CONTACT WITH COVID-19, SUCH WORSE SYMPTOMS OR . THE PATIENT UNDERSTANDS, WOULD LIKE TO PROCEED WITH THE PROCEDURE, AND AGREES HE/SHE WILL BE CAREFUL BY SELF ISOLATING FOR A WEEK OR MORE. INSTRUCTIONS WERE GIVEN, QUESTIONS WERE ANSWERED, PATIENT REPORTS UNDERSTANDING AND AGREES WITH THE PLAN. I, HEYDI TRAN, DOCUMENTED THE ABOVE INFORMATION ACTING A SCRIBE FOR DR. HERNANDEZ. I HAVE REVIEWED THE ABOVE DOCUMENT, WRITTEN BY HEYDI APONTE AND I VERIFY THAT IT IS ACCURATE. . LOW BACK PAIN [facility] CT SPINE, LUMBAR W/O [id number] PROCEDURE CODES FA211 ESTABILISHED PATIENT [employer] FACILITY CHARGE G3633 CURRENT MEDS W/DOSAGES DOCUMENTED G9241 PAIN ASSESS POS TOOL F/U PLAN DOC DISPOSITION & COMMUNICATION FOLLOW UP 2 WEEKS (REASON: ORDERING LS CT; LS TPI WITH STEROIDS) ELECTRONICALLY SIGNED BY CAMACHO HERNANDEZ MD, MD ON 03/01/2020 AT 06:05 PM EDT DISCLAIMER : THIS IS A VISIT SUMMARY EXTRACTED FROM THE [employer] CHART. IT IS NOT A COPY OF THE [employer] PROGRESS NOTE. MTDD
== END ==
LOC: M PAIN 11:00
PROVIDERS: ATTEND Anesthesiology
DX: M79.18 Myalgia, other site (principal); G89.29 Other chronic pain; M54.5 Low back pain; M51.16 Intervertebral disc disorders with radiculopathy, lumbar region

== ENCOUNTER → 2020-02-29 | Outpatient (REF) | payer MEDICARE, MEDICAID | LOC: SKLAB5 10:10 | PROVIDERS: ATTEND Family Medicine | DX: Z86.14 Personal history of Methicillin resistant Staphylococcus aureus infection (principal) ==

== ENCOUNTER → 2020-03-12 | Outpatient (REF) ==
[~2020-03-12] MED LIST changes: -ASPI1CHW3 PO; -ASPI81TAEC PO; -ATOR40TA75 PO; -BIOF4GEL4 EXT; -CEPH500T PO; -CHERLOZ MT; -CLIN150C15 PO; -DIPH25CA32 PO; +FLUO10CA15 PO; -FLUO10CA16 PO; -GABA-282 PO; +GABA-843 PO; -HYDR1CAP25 PO; +MAG400TA PO; -MAGN400T35 PO; -MYLASSUD PO; -OXYC10TA12 PO; -PROP20TA72 PO; -RISATAB3 PO
== END ==
LOC: SKLAB5 10:29
PROVIDERS: ATTEND Family Medicine
DX: Z11.59 Encounter for screening for other viral diseases (principal)

== ENCOUNTER → 2020-03-14 | Outpatient (REF) | payer MEDICARE, MEDICAID | LOC: SKLAB5 11:28 | PROVIDERS: ATTEND Family Medicine | DX: Z22.322 Carrier or suspected carrier of Methicillin resistant Staphylococcus aureus (principal) ==

== ENCOUNTER → 2020-03-15 | Outpatient (CLI) | payer MEDICARE, MEDICAID ==
--- NOTE | 2020-03-15 16:18 | REP ---
CT LUMBAR SPINE WITHOUT CONTRAST: HISTORY: Low back pain. Comparison lumbar spine CT study is from August 06, 2019. FINDINGS: There has been progressive loss of height and collapse of the superior endplate in the L5 vertebral body with mixed lytic and sclerotic healing changes. There is a vacuum phenomenon in the degenerated L4-5 disc and the changes are therefore not felt to be suspicious for discitis but rather healing compression fracture. There is retropulsion of the posterior cortex of the L5 vertebral body superiorly producing moderate central canal stenosis. The retropulsion measures 7.6 mm. In the midline, the bony spinal canal measures approximately 7 mm. There is diffuse disc bulging associated with this contributing to thecal sac compression as well. There appears to be disc bulging and foraminal narrowing on the right at 4-5 as well. There is approximately 30% loss of vertebral body height. Vertebral bodies are otherwise preserved. There are degenerative disc changes at the L3-4 and L2-3 with vacuum phenomenon and disc space narrowing at these two levels. The vacuum phenomenon were not present previously but the disc narrowing is unchanged. There is mild central canal stenosis at L3-4 and L2-3 due to diffuse disc bulging and developmentally short pedicles. No other foraminal narrowing is appreciated. IMPRESSION: Progressive collapse of the superior endplate of L5 with 7.6 mm retropulsion and moderate to severe central canal stenosis at L4-5. Degenerative disc disease L4-5, L3-4, and L2-3. Central canal stenosis L3-4 and L2-3. Electronically Signed by Roney Dorsey MD 03/15/2020 05:17 P
== END ==
LOC: M RAD 12:41
PROVIDERS: ATTEND Anesthesiology
DX: M51.26 Other intervertebral disc displacement, lumbar region (principal); M48.061 Spinal stenosis, lumbar region without neurogenic claudication; M51.36 Other intervertebral disc degeneration, lumbar region

== ENCOUNTER → 2020-03-15 | Outpatient (REF) | payer MEDICARE, MEDICAID ==
[2020-03-15 07:49] LABS: CALCIUM LEVEL 8.6 MG/DL (8.8-10.2); CREATININE FOR GFR 1.48 MG/DL (0.55-1.30); GLOMERULAR FILTRATION RATE 37.7 (>45); POTASSIUM SERUM 3.9 MEQ/L (3.5-5.1)
== END ==
LOC: SKLAB5 12:46
PROVIDERS: ATTEND Family Medicine
DX: L03.90 Cellulitis, unspecified (principal)

== ENCOUNTER → 2020-03-21 | Outpatient (REF) | payer MEDICARE, MEDICAID | LOC: SKLAB5 08:27 | PROVIDERS: ATTEND Family Medicine | DX: Z20.89 Contact with and (suspected) exposure to other communicable diseases (principal) ==

== ENCOUNTER → 2020-04-01 | Outpatient (CLI) | payer MEDICARE, MEDICAID ==
[~2020-04-01] MED LIST changes: +ASPI1CHW3 PO; +ASPI81TAEC PO; +ATOR40TA75 PO; +BIOF4GEL4 EXT; +CEPH500T PO; +CHERLOZ MT; +CLIN150C14 PO; +DIPH25CA32 PO; -FLUO10CA15 PO; +FLUO10CA16 PO; +HYDR1CAP25 PO; +MYLASSUD PO; +OXYC10TA12 PO; +PROP20TA72 PO; +RISATAB3 PO
--- NOTE | 2020-04-06 01:45 | ECWPNPC ---
PATIENT NAME: HODAN FARFAN : 1955 GENDER: FEMALE VISIT DATE: 04/01/2020 DISCHARGE DATE: 04/01/20 1300 VISIT LOCKED DATE TIME: PHYSICIAN: CAMACHO HERNANDEZ MD PHYSICIAN PAGER NO: [phone] RESOURCE: CAMACHO HERNANDEZ MD REASON FOR APPOINTMENT 1. CT RESULTS PAT DONE HISTORY OF PRESENT ILLNESS GENERAL: PERMISSION FROM PATIENT WAS RECEIVED TO DO TELEPHONE OFFICE VISIT. 64-YEAR-OLD FEMALE PATIENT WITH A HISTORY OF CHRONIC LOW BACK AND LEG PAIN. THE PATIENT RECEIVED SOME TRIGGER POINT INJECTIONS BUT THEY DID NOT HELP HER. THEY WERE DONE WITHOUT STEROIDS. SHE EXPRESSED THAT THIS CONDITION IS AFFECTING HER ABILITY TO MOVE AND SHE IS USING OPIOIDS TO CONTROL THE PAIN. THE PAIN IS MAINLY LOCATED IN THE BACK WITH RADIATATION TOWARDS THE LEFT LEG. SHE DID A CT OF THE LUMBAR SPINE WITHIN THE LAST FEW WEEKS. THE PATIENT ALSO STATED THAT SHE IS BEING TREATED FOR MRSA. SHE HAD AN INFECTION IN HER ABDOMEN. PATIENT DENIES UNEXPLAINABLE WEIGHT LOSS, FEVER, CHILLS, NEW CHANGES ON HER URINARY OR BOWEL CONTROL. FALL RISK SCREENING: SCREENING :NO FALLS REPORTED IN THE LAST YEAR PAIN SCREENING: PATIENT HAS A COMPLAINT OF ACUTE OR CHRONIC PAIN :YES LOCATION OF PAIN:LOW BACK INTENSITY OF PAIN (SCALE OF 1 TO 10):8 WHAT DOES YOUR PAIN FEEL LIKE:ACHING, BURNING, CONTINOUS, STABBING, THROBBING, SHOOTING NURSING NOTE: -. PAIN CENTER INTAKE QUESTIONS: DO YOU HAVE A HISTORY OF MRSA? :YES PT STATES THAT SHE HAS HX OF MRSA IN STOMACH, CURRENTLY BEING EVALUATED TO SEE IF MRSA HAS RESOLVED DO YOU TAKE A BLOOD THINNERS? :NO DO YOU HAVE ANY BLEEDING DISORDERS? :NO ANY NEW NUMBNESS OR WEAKNESS IN YOUR LEGS OR ARMS? :YES PT STATES THAT SHE HAS INCREASED WEAKNESS IN LEFT LEG ANY PACEMAKER,DEFIBRILLATOR, OR DORSAL COLUMN STIMULATOR? :NO DO YOU HAVE ANY RASHES OR OPEN SORES? :NO ARE YOU ALLERGIC TO IV DYE? :NO ARE YOU DIABETIC? :YES MANAGED WITH INSULIN ANY NEW PROBLEMS WITH YOUR MEDICATIONS? :NO HAVE YOU RECEIVED A VACCINE IN THE PAST 30 DAYS? :NO DO YOU PLAN TO RECEIVE A VACCINE IN THE NEXT 21 DAYS? :NO DO YOU NEED ANY PRESCRIPTION? :NO DO YOU TAKE ANY IMMUNOSUPPRESSIVE MEDICATIONS? :NO IS THERE A CHANCE YOU COULD BE ? :NO ARE YOU BREAST FEEDING? :NO CURRENT MEDICATIONS TAKING WHEELCHAIR 1 MISCELLANEOUS DIRECTED M51.16 DAILY TAKING WHEELCHAIR _ MISCELLANEOUS DIRECTED D X: R27.0 DAILY, NOTES: COLE [phone] TAKING GLUCOMETER (VERIO IQ) 1 GLUCOMETER DIRECTED E11.8 FOUR TIMES DAILY TAKING BL LANCETS 1 1 LANCET E11.8 FOUR TIMES DAILY TAKING ONETOUCH VERIO 1 STRIP 1 STRIP E11.9 BID TAKING DEPEND PANT EXTRA LARGE DEPENDS MISCELLANEOUS SUPER ABSORBENT HIP - 155 CM; WAIST - 146 CM ICD:N39.490 EVERY 2-4 HOURS NEEDED MDD: 5 BRIEFS TAKING LEVOTHYROXINE SODIUM 50 MCG TABLET 1 CAPSULE ORALLY ONCE A DAY TAKING MAGNESIUM 400 MG CAPSULE 1 TABLET WITH A MEAL ORALLY TWICE A DAY TAKING SPIRONOLACTONE 50 MG TABLET 1 TAB ORALLY BID TAKING METOPROLOL TARTRATE 25 MG TABLET 1 TABLET WITH FOOD ORALLY TWICE A DAY TAKING SPIRIVA HANDIHALER 18 MCG CAPSULE 1 CAPSULE INHALATION ONCE A DAY TAKING INSULIN PEN NEEDLE 31G X 6 MM MISCELLANEOUS DIRECTED SQ DAILY BEFORE BEDTIME DX:E11.8 TAKING ONETOUCH VERIO - STRIP DIRECTED SUBCUTANEOUSLY AC BID TAKING TORSEMIDE 10 MG TABLET 1 TABLET ORALLY BID TAKING GABAPENTIN 600 MG TABLET 1 TABLET ORALLY BID TAKING DULOXETINE HCL 30 MG CAPSULE DELAYED RELEASE PARTICLES 1 CAPSULE ORALLY BID TAKING ROLLER WALKER 1 MISCELLANEOUS DIRECTED M47.816 DAILY TAKING COMPRESSION STOCKINGS 20-30 MMHG DIRECTED L03.116 DAILY TAKING LACTULOSE 20 GM/30ML SOLUTION 15 ML ORALLY TID TAKING LANTUS 100 UNIT/ML SOLUTION 60 IN THE AM AND 55 IN THE EVENING SUBCUTANEOUS TAKING OMEPRAZOLE 40 MG CAPSULE DELAYED RELEASE 1 CAPSULE 30 MINUTES BEFORE MORNING MEAL ORALLY ONCE A DAY TAKING POTASSIUM CHLORIDE JYOTSNA ER 10 MEQ TABLET EXTENDED RELEASE 1 TABLET WITH FOOD ORALLY THREE TIMES DAILY TAKING RIFAXIMIN 550 MG TABLET 1 TABLET ORALLY TWICE A DAY TAKING ACETAMINOPHEN 325 MG TABLET 2 TABLETS NEEDED ORALLY EVERY 4 HRS TAKING BENADRYL ALLERGY 25 MG CAPSULE 1 CAPSULE AT BEDTIME NEEDED ORALLY EVERY 6 HOURS PRN TAKING ONDANSETRON HCL 4 MG TABLET 1 TABLET ORALLY Q 6 HOURS PRN, NOTES: PRN TAKING MILK OF MAGNESIA 2400 MG/30ML SUSPENSION 10 ML NEEDED ORALLY DAILY, NOTES: PRN TAKING BIOFREEZE EVERY 6 HOURS NEEDED, NOTES: PRN TAKING BACTRIM DS 800-160 MG TABLET 1 TABLET ORALLY TWICE A DAY TAKING ALBUTEROL SULFATE (2.5 MG/3ML) 0.083% NEBULIZATION SOLUTION 3 ML NEEDED INHALATION EVERY 2 HRS TAKING ENEMA DISPOSABLE - ENEMA DIRECTED RECTAL TAKING GUAIASORB DM 10-100 MG/5ML LIQUID 10 ML NEEDED ORALLY EVERY 4 HRS TAKING COUGH DROPS MENTHOL - LOZENGE DIRECTED MOUTH/THROAT NEEDED EVERY HOUR TAKING BUTRANS 15 MCG/HR PATCH WEEKLY 1 PATCH TO SKIN TRANSDERMAL WEEKLY, REMOVE OLD PATCH TAKING OXYCODONE HCL 15 MG TABLET 1 TABLET NEEDED ORALLY EVERY 4 HRS FOR PAIN MDD=6 NOT-TAKING COLACE 100 MG CAPSULE 1 CAPSULE NEEDED ORALLY ONCE A DAY, NOTES: 02/04/2020 0800 NOT-TAKING BUTRANS 10 MCG/HR PATCH WEEKLY 1 PATCH TO SKIN TRANSDERMAL CHANGE PATCH EVERY 7 DAYS NOT-TAKING FAMOTIDINE 20 MG TABLET 1 TABLET AT BEDTIME ORALLY ONCE A DAY NOT-TAKING FERROUS SULFATE 325 (65 FE) MG TABLET 1 TABLET ORALLY ONCE A DAY NOT-TAKING XIFAXAN 550 MG TABLET 1 TABLET ORALLY TWICE A DAY NOT-TAKING TOUJEO SOLOSTAR 300 UNIT/ML SOLUTION PEN-INJECTOR DIRECTED SUBCUTANEOUS 80 UNITS IN AM 70 UNITS AT HS NOT-TAKING FISH OIL 1000 MG CAPSULE 1 CAPSULE ORALLY ONCE A DAY, NOTES: OTC NOT-TAKING KRISTALOSE 10 GM PACKET 1 PACKET ORALLY ONCE A DAY NOT-TAKING LIDODERM 5 % PATCH 1 PATCH REMOVE AFTER 12 HOURS EXTERNALLY ONCE A DAY NOT-TAKING TIZANIDINE HCL 4 MG TABLET 1 TABLET NEEDED ORALLY FOUR TIMES DAILY NOT-TAKING DIFLUCAN 100 MG TABLET 1 TABLET ORALLY BID NOT-TAKING HYDROXYZINE HCL 25 MG TABLET 1 TABLET NEEDED ORALLY EVERY 8 HRS NOT-TAKING NYSTATIN [id number] UNIT/GM CREAM 1 APPLICATION EXTERNALLY TWICE A DAY NOT-TAKING TRAMADOL HCL 50 MG TABLET 1 TABLET NEEDED ORALLY TID PRN PAIN NOT-TAKING KEFLEX 500 MG CAPSULE 1 CAPSULE ORALLY EVERY 12 HRS NOT-TAKING METOLAZONE 5 MG TABLET 1 TABLET ORALLY ONCE A DAY MEDICATION LIST REVIEWED AND RECONCILED WITH THE PATIENT PAST MEDICAL HISTORY OBESITY, MORBID CERVICAL/THORACIC/LUMBAR DJD-L2-S1 DIFFUSE BULGES-AT L5/S1 ABUTTING TS, B S1 PERIPHERAL EDEMA-01/2011 [id number] 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 BARAHONA, [facility], [place] OBSTRUCTIVE SLEEP APNEA HYPERLIPIDEMIA 2B COPD-07/2011 FEV1 1.9L (71%)/RATIO 92% T2DM ID GERD/HIATAL HERNIA-SEEN BY APRIL 2011 UPPER GI WITH SMALL BOWEL FOLLOW-THROUGH SCHIZOAFFECTIVE DISORDER-SPELLED BY DR. OSBORNE NONALCOHOLIC FATTY LIVER DISEASE-SEEN BY MARCH 2011 CT-NORMAL WORKUP 2010--CHRONIC HEPATITIS GRADE 2/4 WITH GRADE 4/4 CIRRHOSIS BY LIVER BIOPSY JULY 2011 VASOMOTOR SYMPTOMS VITAMIN D DEFICIENCY ALLERGIC RHINITIS RECURRENT CANDIDAL DERMATITIS ANTERIOR ABDOMEN LEUKOPENIA, CHRONIC CHRONIC ANTERIOR ABDOMINAL WALL PANNICULITIS PORTAL VENOUS HYPERTENSION SEEN BY MARCH 2011 CT CKD III-12/2013 NORMAL B RENAL US CHF 2 DIASTOLIC DYSFUNCTION-01/2017 TTE-GUADALUPE C GRADE 1 DIASTOLIC DYSFUNCTION, VERY MILD MR/TR B SHOULDER IMPIGNMENT SYNDROME-09/2015 L SHOULDER XRAY C MILD AC ARTHRITIS//S/P R PROXIMAL HUMERUS FRACTURE S/P MECHANICAL [id number] PER HEBERT RECURRENT HEPATIC ENCEPHALOPATHY-01/2017 MRI BRAIN MILD /VOLUME LOSS ASTHMA CELLULITIS HYPOTHYROIDISM MRSA (PER PT REPORT) ABDOMEN ALLERGIES CIPRO: CONFUSION - SIDE EFFECTS DOXYCYCLINE HYCLATE: ITCHY - ALLERGY MOTRIN: HIVES - ALLERGY SURGICAL HISTORY [place]COLN/BSO FOR NONCANCEROUS REASON-MAGDALENE 2002 EGD/[id number] GASTRITIS/PANDIVERTICULOSIS/LARGE HIATAL HERNIA/NEGATIVE SMALL BOWEL BIOPSY NOVEMBER 2009 NEGATIVE LUMBAR PUNCTURE FOR MS-LUDMILA JANUARY 2008 EGD-HIATAL HERNIA, NO EVIDENCE OF MASS AMPULLA OF VATER-March 2011 HARD PALATE EXCISIONAL BIOPSY-ULCERATED HEMANGIOMA-OPAL MARCH 2011 RIGHT HIP REPAIR AND FEMUR REPAIR BLOOD PRESSURE MARCH 2019 FAMILY HISTORY FATHER: 70 YRS, DIAGNOSED WITH OTHER SPECIFIED CONDITIONS INFLUENCING HEALTH STATUS MOTHER: 60 YRS, OTHER SPECIFIED CONDITIONS INFLUENCING HEALTH STATUS SIBLINGS: ALIVE, HYPERTENSION, UNSPECIFIED HEART DISEASE, DIABETES, UNSPECIFIED NONPSYCHOTIC MENTAL DISORDER FOLLOWING ORGANIC BRAIN DAMAGE DAUGHTER(S): ALIVE 2 BROTHER(S) , 4 SISTER(S) . 3DAUGHTER(S) - HEALTHY. MOTHER- EMPHASEMAFATHER-COPD. SOCIAL HISTORY GENERAL: TOBACCO USE ARE YOU A:NONSMOKER LATEX QUESTIONNAIRE LATEX ALLERGY : HAVE YOU EVER DEVELOPED ANY TYPE OF REACTION AFTER HANDLING LATEX PRODUCTS SUCH RUBBER GLOVES, CONDOMS, DIAPHRAGMS, BALLOONS, SOCKS, OR UNDERWEAR?NO ALLERGY TO SOME TAP - ONLY USES PAPER TAPE LATEX ALLERGY : HAVE YOU EVER DEVELOPED ANY TYPE OF REACTION DURING OR AFTER DENTAL APPOINTMENT, VAGINAL/RECTAL EXAMINATION, SURGICAL PROCEDURE, OR ANY OTHER EXPOSURE?NO LATEX RISK : HAVE YOU EVER HAD ANY DIFFICULTY BREATHING OR HIVES AFTER EATING OR HANDLING ANY FRUITS, OR VEGETABLES; SUCH KIWI, BANANAS, STONE FRUITS, OR CHESTNUTSNO LATEX RISK : DO YOU HAVE A PREVIOUS PERSONAL HISTORY OF MORE THAN NINE SURGERIES, SPINA BIFIDA, OR REPEATED CATHERIZATIONS? NO LATEX RISK : ARE YOU FREQUENTLY EXPOSED TO LATEX PRODUCTS IN YOUR OCCUPATION?NO DATE ASKED : 04/01/2020 BMI CARE GOAL FOLLOW-UP ABOVE NORMAL BMI FOLLOW-UPGIVING ENCOURAGEMENT TO EXERCISE ALCOHOL SCREENING DID YOU HAVE A DRINK CONTAINING ALCOHOL IN THE PAST YEAR?NO POINTS0 INTERPRETATIONNEGATIVE RECREATIONAL DRUG USE DRUG USE?NO DENIES 02/26/20 CAFFEINE OCCASIONAL ONLY. SEXUAL HX HAD SEX IN THE LAST 12 MONTHS (VAGINAL, ORAL, OR ANAL)?NO HAVE YOU EVER HAD AN STD?NO PENTECOSTAL QUOBONDO36 MU-ISM LANGUAGE LANGUAGES SPOKEN:[place] EDUCATION LEVEL OF EDUCATION:FINISHED HIGH SCHOOL LEARNING BARRIERS / SPECIAL NEEDS CHANGE FROM LAST VISIT?NO BARRIERS TO LEARNING?NO HEARING IMPAIRED?NO VISION IMPAIRED?YES COGNITIVELY IMPAIRED?NO :CORRECTIVE LENSES READINESS TO LEARN?YES LEARNING PREFERENCES?YES :DEMONSTRATION/VERBAL INSTRUCTION LEARNING CAPABILITIES PRESENT?YES EMOTIONAL BARRIERS?NO SPECIAL DEVICES?NO FINGERNAIL SCULPTOR NEEDED?NO DOMESTIC VIOLENCE DO YOU FEEL SAFE IN YOUR ENVIRONMENT?YES OCCUPATION: RETIRED. DIET: CARBOHYDRATE CONTROLLED. EXERCISE: NO REGULAR EXERCISE. MARITAL STATUS: SINGLE. OTHERS AT HOME: NONE. DAUGHTER LIVES NEAR BY.. PAIN CLINIC PFS, CLERGY, PUBLIC HEALTH REFERRALS HAS THE PATIENT BEEN EDUCATED REGARDING HIS/HER PLAN OF CARE?YES HAS THE PATIENT BEEN EDUCATED REGARDING PAIN, THE RISK FOR PAIN, THE IMPORTANCE OF EFFECTIVE PAIN MANAGEMENT, AND THE PAIN ASSESSMENT PROCESS?YES HOUSING: [facility] KEEP HOME. ADVANCE DIRECTIVE ADVANCE DIRECTIVE DISCUSSED WITH PATIENT:YES JENNA LOCO [phone] - PT STATES IS HER CASINO FLOOR WALKER BUT NOT HER HEALTH CARE PROXY HOSPITALIZATION/MAJOR DIAGNOSTIC PROCEDURE RECURRENT NAUSEA/VOMITING-NEGATIVE BLOOD CULTURE X2/NEGATIVE URINE CULTURE APRIL 05-2010 MS CHANGE 2 MEDICATIONS/HEPATIC ENCEPHALOPATHY-PEAK [id number] AMBIEN, VICODIN, ZANAFLEX/NEGATIVE UCX/BCX X2 01/29-02/06/2012 MS CHANGE 2 HEPATIC ENCEPHALOPATY-HEAD CT C MILD ATROPHY 02/2012 MS CHANGE 2 HEPATIC ENCEPHALOPATHY, INCREASED PERIPHERAL EDEMA 04/2012 MS CHANGE ? 2 HEPATIC ENCEPHALOPATHY VS 2 SCHIZOAFFECTIVE DISORDER-ADMISSION NH3 32, NEGATIVE HEAD CT, B12 LEVEL, SX RESOLVED IN HOURS 05/2012 SYMPTOMATIC HYPONATRIEMIA/HYPOKALEMIA (116, 2.9 ON ADMISSION) 2 ESLD/ASCITES C OVERDIURESIS-LASIX 40 BID AND SPIROLACTONE 50 BID HELD 12/30- LLE CELLULITIS-ONSET DAY OF ADMISSION-RXED C ZOSYN 7D THEN CEFTAROLINE 5D-04/25/142 BCX K PNEUMONIA, 04/28/14 UCX NGCS, 05/04, , -BCX X 1 EACH DAY -, CXR C MILD B PVC, 04/25/2014 - LLE EVT US 04/25- LLE CELLULITIS WITH S. SIMULANS AND C- STAPH BCX 09/24, P. AERUGENOSA BY BCX 09/24 RXED C LEVAQUIN 10D, UCX NG, CT CHEST S/ C - 06/22-06/30/14 INCREASED BLE EDEMA =/- BLE CELLULITIS, ASX UCX C E. COLI ESBL (AFEBRILE, PRESENTING WBC 4.2) RXED C ZOSYN 3D THEN BACTRIM 2D, - BCX X 2, - CXR, - B TIB/FIB XRAY 09/03- LLE CELLULITIS/SIRS- -BCX X 2, -LLE DVT US, RXED C CEFAROLINE BUT D/MOUSTAPHA ON KEFLEX 500 BID, UCX NG, - MRSA SCREEN, ADMISSION WBC 14.3, CRP 7.9 11/14- LLE CELLULITIS-- BCX X 2, SCX C FEW COAG NEG STAPH, RX C CEFTAROLINE IV, D/MOUSTAPHA ON DOXY PO 03/10- LLE CELLULITIS/SIRS-RX C CEFTAROLINE-(ADMISSION WBC 17.9, D/C 5.8, NO CRP/ESR DONE, BCX - X 2) 04/23-03/07 LLE CELLULITIS/SIRS-BETH CHANGED CEFTAROLINE TO KEFLEX 500 QID AND RECOMMENDED 500 QD SUPPRESSION FAVORING RECURRENT MSSA, - NASAL SWAB MRSA SCREEN AND CULTURE, - BCX X2, -MRI L FOOT/THIGH, -LLE DVT US 06/15-06/23/15 ACUTE HYPOXIC RESPIRATORY FAILURE 2 ARDS FROM ASPIRATION PN/CARDIOGENIC SHOCK-ON MECHANICAL VENTILATION X 1W, RUE NONOCCLUSIVE CEPHALIC DVT-NOT TREATED/THEN TO [facility] UNTIL 07/05/1604/04-04/26/16 BROKEN SHOULDER- ALC FOR 2 WEEK 10/15-10/17/16 HEPATIC ENCEPHALOPATHY 01/02/17-01/04/17 HEPATIC ENCEPHALOPATHY, DECOMPENSATED CHF, UTI, - BLE DVT US 04/18-04/30/17 EXAMINATION GENERAL: THIS IS A VIRTUAL VISIT. THE PATIENT IS ALERT, ORIENTED TIMES THREE AND COOPERATIVE. CT OF THE SPINE THAT WAS PERFORMED ON 03/15/2020 SHOWS CENTRAL STENOSIS AT L4-L5 THAT IS SEVERE, SOME CENTRAL STENOSIS AT L3-L4. THE ENDPLATE OF L5 IS SHOWING SOME RETROPULSION THAT MEASURES 7.6 MM. THERE IS COLLAPSE OF THE VERTEBRAL BODY OF L5 WITH RETROPULSION INTO THE CANAL. THERE IS ALSO SOME FACET ARTHROPATHY. 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 FARFAN REGARDING HER TREATMENT OPTIONS AND CARE. THE PATIENT IS CURRENTLY BEING TREATED FOR MRSA FROM AN ABDOMINAL LESION THAT SHE HAS. AFTER THAT IS RESOLVED, THE PATIENT WILL CALL ME AND I WOULD LIKE TO SEE HER HERE IN THE FACILITY AT THE PAIN CENTER WHERE I WILL EXAMINE HER TO SEE IF WE WILL BE DOING A FACET BLOCK OR AN EPIDURAL. I WOULD LIKE TO SPEAK WITH THE RADIOLOGIST ABOUT THE CT SCAN THAT WAS DONE ON 03/15/2020. IDEALLY I WOULD HAVE AN MRI DONE, HOWEVER, THE PATIENT REPORTS THAT IT WOULD BE DIFFICULT FOR HER TO DO AN MRI. THE PATIENT HAS MULTIPLE MEDICAL CONDITIONS INCLUDING, COPD, SLEEP APNEA AND DIFFICULTY BREATHING. THE PATIENT USES A WHEELCHAIR TO AMBULATE, SO I WILL CONSIDER DOING A FACET BLOCK FIRST AND THEN DEPENDING ON THE RESULTS, CONSIDER DOING AN EPIDURAL. I WANT TO DISCUSS THIS WITH THE PATIENT AFTER I EXAMINE HER. WE TALKED ABOUT CONSIDERING DOING TRIGGER POINT INJECTIONS WITH STEROIDS BUT WE AGREED ON DOING WORKING DEEPER UNDER X-RAY. THE PATIENT AGREES SO I WILL BRING THE PATIENT IN FOR A PHYSICAL APPOINTMENT FOR AN EXAM. THE PATIENT KNOWS TO CALL THE OFFICE IF SHE HAS ANY QUESTIONS OR CONCERNS. THE PATIENT UNDERSTANDS AND IS IN AGREEMENT WITH THE TREATMENT PLAN. THE TOTAL TIME FOR THE TELEPHONE VISIT WAS 6 MINUTES. I, SYDNEY FAIRBANKS, DOCUMENTED THE ABOVE INFORMATION ACTING A SCRIBE FOR DR. HERNANDEZ. I HAVE REVIEWED THE ABOVE DOCUMENT, WRITTEN BY SYDNEY FAIRBANKS, MARKETING OPERATIONS SPECIALIST, AND I VERIFY THAT IT IS ACCURATE. DISPOSITION & COMMUNICATION FOLLOW UP F/UP DR. Mc (REASON: F/UP DR. Mc) ELECTRONICALLY SIGNED BY CAMACHO HERNANDEZ MD, ON 04/05/2020 AT 12:51 PM EDT DISCLAIMER : THIS IS A VISIT SUMMARY EXTRACTED FROM THE [email or web address] CHART. IT IS NOT A COPY OF THE [email or web address] PROGRESS NOTE. ALTAGRACIA
== END ==
LOC: M PAIN 14:15 → M TMPAIN 14:15
PROVIDERS: ATTEND Anesthesiology
DX: M48.061 Spinal stenosis, lumbar region without neurogenic claudication (principal); M48.50XA Collapsed vertebra, not elsewhere classified, site unspecified, initial encounter for fracture; M43.06 Spondylolysis, lumbar region; M51.16 Intervertebral disc disorders with radiculopathy, lumbar region

== ENCOUNTER → 2020-04-05 | Outpatient (REF) | payer MEDICARE, MEDICAID ==
[~2020-04-05] MED LIST changes: -ASPI1CHW3 PO; -ASPI81TAEC PO; -ATOR40TA75 PO; -BIOF4GEL4 EXT; -CEPH500T PO; -CHERLOZ MT; -CLIN150C14 PO; -DIPH25CA32 PO; +FLUO10CA15 PO; -FLUO10CA16 PO; -HYDR1CAP25 PO; -MYLASSUD PO; -OXYC10TA12 PO; -PROP20TA72 PO; -RISATAB3 PO
== END ==
LOC: SKLAB5 12:16
DX: R05 Cough (principal)

== ENCOUNTER → 2020-04-07 | Outpatient (REF) | payer MEDICARE, MEDICAID ==
[~2020-04-07] MED LIST changes: +ASPI1CHW3 PO; +ASPI81TAEC PO; +ATOR40TA75 PO; +BIOF4GEL4 EXT; +CEPH500T PO; +CHERLOZ MT; +CLIN150C14 PO; +DIPH25CA32 PO; -FLUO10CA15 PO; +FLUO10CA16 PO; +HYDR1CAP25 PO; +MYLASSUD PO; +OXYC10TA12 PO; +PROP20TA72 PO; +RISATAB3 PO
[2020-04-07 12:13] LABS: HEMATOCRIT 42.1 % (36.0-47.0); HEMOGLOBIN 13.1 g/dl (12.0-15.5); MEAN CORPUSCULAR HEMOGLOBIN 29.5 pg (27.0-33.0); MEAN CORPUSCULAR HGB CONC 31.1 g/dl (32.0-36.5); MEAN CORPUSCULAR VOLUME 94.8 fl (80.0-96.0); PLATELET COUNT, AUTOMATED 180 10^3/uL (150-450); RED BLOOD COUNT 4.44 10^6/uL (4.00-5.40); WHITE BLOOD COUNT 6.4 10^3/uL (4.0-10.0)
[2020-04-07 13:18] LABS: CALCIUM LEVEL 8.9 MG/DL (8.8-10.2); CREATININE FOR GFR 1.49 MG/DL (0.55-1.30); GLOMERULAR FILTRATION RATE 37.4 (>45); POTASSIUM SERUM 5.2 MEQ/L (3.5-5.1)
== END ==
LOC: SKLAB5 06:53
DX: I50.9 Heart failure, unspecified (principal)

== ENCOUNTER → 2020-04-08 | Outpatient (REF) | payer MEDICARE, MEDICAID ==
[~2020-04-08] MED LIST changes: -ASPI1CHW3 PO; -ASPI81TAEC PO; -ATOR40TA75 PO; -BIOF4GEL4 EXT; -CEPH500T PO; -CHERLOZ MT; -CLIN150C14 PO; -DIPH25CA32 PO; +FLUO10CA15 PO; -FLUO10CA16 PO; -HYDR1CAP25 PO; -MYLASSUD PO; -OXYC10TA12 PO; -PROP20TA72 PO; -RISATAB3 PO
[2020-04-08 08:27] LABS: CREATININE FOR GFR 1.29 MG/DL (0.55-1.30); GLOMERULAR FILTRATION RATE 44.2 (>45); POTASSIUM SERUM 3.6 MEQ/L (3.5-5.1)
== END ==
LOC: SKLAB5 07:49
DX: E87.5 Hyperkalemia (principal)

== ENCOUNTER → 2020-05-18 | Outpatient (REF) | payer MEDICARE, MEDICAID ==
[~2020-05-18] MED LIST changes: +ASPI1CHW3 PO; +ASPI81TAEC PO; +ATOR40TA75 PO; +BIOF4GEL4 EXT; +CEPH500T PO; +CHERLOZ MT; +CLIN150C14 PO; +DIPH25CA32 PO; -FLUO10CA15 PO; +FLUO10CA16 PO; +HYDR1CAP25 PO; +MYLASSUD PO; +OXYC10TA12 PO; +PROP20TA72 PO; +RISATAB3 PO
== END ==
LOC: SKLAB5 06:52
DX: Z11.59 Encounter for screening for other viral diseases (principal)

== ENCOUNTER → 2020-05-26 | Outpatient (REF) | payer MEDICARE, MEDICAID ==
[2020-05-26 11:01] LABS: HEMATOCRIT 42.4 % (36.0-47.0); HEMOGLOBIN 13.3 g/dl (12.0-15.5); MEAN CORPUSCULAR HGB CONC 31.4 g/dl (32.0-36.5); MEAN CORPUSCULAR VOLUME 95.5 fl (80.0-96.0); PLATELET COUNT, AUTOMATED 209 10^3/uL (150-450); RED BLOOD COUNT 4.44 10^6/uL (4.00-5.40); WHITE BLOOD COUNT 8.5 10^3/uL (4.0-10.0)
[2020-05-26 11:43] LABS: BILIRUBIN,TOTAL 0.6 MG/DL (0.2-1.0); CALCIUM LEVEL 8.9 MG/DL (8.8-10.2); CREATININE FOR GFR 1.41 MG/DL (0.55-1.30); GLOMERULAR FILTRATION RATE 39.8 (>45); MAGNESIUM LEVEL 2.1 MG/DL (1.8-2.4); POTASSIUM SERUM 3.9 MEQ/L (3.5-5.1); THYROID STIMULATING HORMONE 2.38 uIU/ML (0.358-3.740); TOTAL PROTEIN 8.5 GM/DL (6.4-8.2)
== END ==
LOC: SKLAB5 06:46
DX: E03.9 Hypothyroidism, unspecified (principal); I50.9 Heart failure, unspecified; N18.9 Chronic kidney disease, unspecified

== ENCOUNTER → 2020-06-07 | Outpatient (REF) | payer MEDICARE, MEDICAID ==
[2020-06-07 08:50] LABS: TOTAL PROTEIN 7.6 GM/DL (6.4-8.2)
[2020-06-07 10:57] LABS: HEMOGLOBIN A1c 6.9 %
[2020-06-07 13:21] LABS: ALBUMIN % 42.8 % (55.8-66.1); ALPHA-1-GLOBULIN % 4.2 % (2.9-4.9)
[2020-06-07 13:22] LABS: ALBUMIN 3.25 GM/DL (3.29-5.55); ALPHA-1-GLOBULINS 0.32 GM/DL (0.17-0.41); ALPHA-2-GLOBULINS 0.81 GM/DL (0.42-0.99); ALPHA-2-GLOBULINS % 10.6 % (7.1-11.8); BETA-1-GLOBULINS 0.45 GM/DL (0.28-0.60); BETA-1-GLOBULINS % 5.9 % (4.7-7.2); BETA-2-GLOBULINS 0.59 GM/DL (0.19-0.55); BETA-2-GLOBULINS % 7.7 % (3.2-6.5); GAMMA GLOBULIN % 28.8 % (11.1-18.8); GAMMA GLOBULINS 2.19 GM/DL (0.65-1.58)
== END ==
LOC: SKLAB5 12:30
DX: R79.89 Other specified abnormal findings of blood chemistry (principal); E83.42 Hypomagnesemia

== ENCOUNTER → 2020-06-08 | Outpatient (REF) | payer MEDICARE, MEDICAID | LOC: SKLAB5 12:26 | DX: Z11.59 Encounter for screening for other viral diseases (principal) ==

== ENCOUNTER → 2020-06-13 | Outpatient (CLI) | payer MEDICARE, MEDICAID ==
[~2020-06-13] MED LIST changes: -ASPI1CHW3 PO; +BUPIVACAINE HCL 0.25% 30ML VIAL As Ordered ONE; -CEPH500T PO; -CLIN150C14 PO; -HYDR1CAP25 PO; +ISOVUE-M 300 61% 15ML VIAL As Ordered ONE; +LIDOCAINE 1% SDV 30ML VIAL As Ordered ONE; -MYLASSUD PO; -PROP20TA72 PO; -RISATAB3 PO; +TRIAMCINOLONE ACETONIDE SUSP 40 MG/ML VIAL (J3301) As Ordered ONE
--- NOTE | 2020-06-23 12:35 | REP ---
C-ARM VIEWS LOWER LUMBAR SPINE CLINICAL HISTORY: Pain. Two C-arm views lower lumbar spine performed during bilateral facet injections by Dr. Bhatti. [place] are seen along the lower lumbar facet joints. 28 seconds of fluoroscopy time was utilized. ALTAGRACIA
== END ==
LOC: M PAIN 13:48
PROVIDERS: ATTEND Anesthesiology
DX: M47.816 Spondylosis without myelopathy or radiculopathy, lumbar region (principal); M47.817 Spondylosis without myelopathy or radiculopathy, lumbosacral region

== ENCOUNTER 2020-06-16 17:29 | Inpatient (IN) | payer MEDICARE, MEDICAID ==
[~2020-06-16] VITALS: Ht 160 cm; Wt 125.9 kg
[~2020-06-16 17:29] MED LIST changes: -ASPI81TAEC PO; -ATOR40TA75 PO; -BIOF4GEL4 EXT; -BUPIVACAINE HCL 0.25% 30ML VIAL As Ordered ONE; -CHERLOZ MT; -DIPH25CA32 PO; -ISOVUE-M 300 61% 15ML VIAL As Ordered ONE; -LIDOCAINE 1% SDV 30ML VIAL As Ordered ONE; -OXYC10TA12 PO; -TRIAMCINOLONE ACETONIDE SUSP 40 MG/ML VIAL (J3301) As Ordered ONE
--- NOTE | 2020-06-16 18:53 | REPVR ---
PROCEDURE INFORMATION: Exam: XR Chest, 1 View Exam date and time: 06/16/2020 5:40 PM Age: 64 years old Clinical indication: Chest pain TECHNIQUE: Imaging protocol: XR of the chest Views: 1 view. COMPARISON: AL PORTABLE CHEST X-RAY 10/03/2017 4:37 PM FINDINGS: Lungs: No focal lung consolidation. Stable central bronchial wall thickening. Pleural space: No pleural effusion. Heart/Mediastinum: No significant enlargement of the cardiomediastinal silhouette. Bones/joints: Prior right humeral fracture again noted. IMPRESSION: No acute findings. Electronically signed by: Rose Mauricio On 06/16/2020 18:53:08 PM
[2020-06-16 19:39] LABS: BASO % 0.3 % (0.0-1.0); EOS % 0.2 % (0.0-3.0); HEMATOCRIT 47.7 % (36.0-47.0); HEMOGLOBIN 15.1 g/dl (12.0-15.5); LYMPH # 1.2 10^3/uL (1.5-5.0); LYMPH % 10.2 % (24.0-44.0); MEAN CORPUSCULAR HEMOGLOBIN 29.5 pg (27.0-33.0); MEAN CORPUSCULAR HGB CONC 31.7 g/dl (32.0-36.5); MEAN CORPUSCULAR VOLUME 93.3 fl (80.0-96.0); MONO # 0.8 10^3/uL (0.0-0.8); NEUTROPHILS # 9.8 10^3/uL (1.5-8.5); PLATELET COUNT, AUTOMATED 267 10^3/uL (150-450); RED BLOOD COUNT 5.11 10^6/uL (4.00-5.40); WHITE BLOOD COUNT 11.9 10^3/uL (4.0-10.0)
[2020-06-16] MEDS ORDERED: GI COCKTAIL 50ML BTL(HYOSCYAMINE/MAALOX/LIDOCAINE VISCOUS)(1:3:1) PO ONE (19:45)
[2020-06-16 19:51] LABS: INR 1.03; PROTHROMBIN TIME 13.7 SECONDS (12.5-14.3)
[2020-06-16 19:52] LABS: PARTIAL THROMBOPLASTIN TIME 27.2 SECONDS (24.2-38.5)
--- NOTE | 2020-06-16 20:02 | REPVR ---
PROCEDURE INFORMATION: Exam: CT Head Without Contrast Exam date and time: 06/16/2020 7:39 PM Age: 64 years old Clinical indication: Weakness, facial; Additional info: Left facial droop TECHNIQUE: Imaging protocol: Computed tomography of the head without contrast. Radiation optimization: All CT scans at this facility use at least one of these dose optimization techniques: automated exposure control; mA and/or kV adjustment per patient size (includes targeted exams where dose is matched to clinical indication); or iterative reconstruction. COMPARISON: CT Head without contrast 10/09/2017 6:09 PM FINDINGS: Brain: There is no acute cortical infarction, intracranial hemorrhage or mass.There is mild diffuse heterogeneity of the white matter, most consistent with microangiopathy. Cerebral ventricles: The ventricles appear mildly enlarged, but not out of proportion to the degree of parenchymal volume loss. Bones/joints: Unremarkable. No acute fracture. Paranasal sinuses: There is no significant mucoperiosteal thickening or air-fluid levels in the paranasal sinuses. Mastoid air cells: The middle ear cavities and mastoid air cells are clear. Orbits: There is leftward gaze deviation during the scan. Soft tissues: Unremarkable. IMPRESSION: No acute intracranial findings. Electronically signed by: Rose Mauricio On 06/16/2020 20:02:21 PM
[2020-06-16 20:12] LABS: ALBUMIN 3.3 GM/DL (3.2-5.2); ALT/SGPT 27 U/L (12-78); BILIRUBIN,DIRECT 0.2 MG/DL (0.0-0.2); BILIRUBIN,TOTAL 0.3 MG/DL (0.2-1.0); BLOOD UREA NITROGEN 34 MG/DL (7-18); CALCIUM LEVEL 9.3 MG/DL (8.8-10.2); CARBON DIOXIDE LEVEL 31 MEQ/L (21-32); CHLORIDE LEVEL 101 MEQ/L (98-107); CK-MB VALUE MASS 1.1 NG/ML (<3.6); CPK CREATINE PHOSPHOKINASE 36 U/L (26-192); CREATININE FOR GFR 1.39 MG/DL (0.55-1.30); FREE T4 1.12 NG/DL (0.76-1.46); GLOMERULAR FILTRATION RATE 40.5 (>45); GLUCOSE, FASTING 136 MG/DL (70-100); LIPASE 102 U/L (73-393); MB/CK RELATIVE INDEX 3.06 (< OR =4); POTASSIUM SERUM 4.6 MEQ/L (3.5-5.1); SODIUM LEVEL 137 MEQ/L (136-145); TOTAL PROTEIN 8.8 GM/DL (6.4-8.2); TROPONIN I < 0.02 NG/ML (< 0.10)
--- NOTE | 2020-06-16 20:59 | ECGEPIP ---
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
[2020-06-16] MEDS ORDERED: LEVEMIR (INSULIN DETEMIR) 1 UNITS/0.01ML SC SCH (21:00)
[2020-06-16] MEDS: HumaLOG INSULIN (NovoLOG) PER UNIT SC SCH (21:00)
[2020-06-16] MEDS ORDERED: ASPIRIN 81 MG CHEW TABLET PO ONE (21:30)
[2020-06-16] MEDS ORDERED: LABETALOL 100MG/20ML VIAL IV STA (21:57)
[2020-06-16] MEDS ORDERED: DIPH25CA32 PO (22:25)
[2020-06-16] MEDS ORDERED: BIOF4GEL4 EXT (22:25)
[2020-06-16] MEDS ORDERED: INSULANT SC ×2 (22:25)
[2020-06-16] MEDS ORDERED: OMEP-221 PO (22:25)
[2020-06-16] MEDS ORDERED: ALBU83IN INH (22:25)
[2020-06-16] MEDS ORDERED: GABA-843 PO (22:25)
[2020-06-16] MEDS ORDERED: CHERLOZ MT (22:25)
[2020-06-16] MEDS ORDERED: OXYC10TA12 PO (22:25)
[2020-06-16] MEDS ORDERED: ALBUTEROL SULFATE 2.5 MG/0.5 ML INH NEB SOLN INH PRN (23:00)
[2020-06-16] MEDS ORDERED: ACETAMINOPHEN TAB 650MG DOSE (2X325MG) PO PRN (23:00)
--- NOTE | 2020-06-16 23:03 | IPNPDOC ---
Text Note Date of Service The patient was seen on 06/16/20. VS,Daryl, I+O VS, Mandobone, I+O Ms. Klein is a 64-year-old with history of diabetes, Bustamante, hypothyroidism, COPD, and RENEE who had chest pain and transient facial drop at 2PM which was about 5 hours prior to arrival in the ER; she will be admitted for evaluation of possible TIA and atypical chest pain. 1 Possible TIA -symptoms resolved -ABCD2 Score for risk of CVA after TIA = 3 points She received ASA in the ER Plan: admit to PCU / telemetry /fall precautions / f/u lipid panel for ACVD risk score & A1C / MRI brain, CTA head and neck, f/u Echo / / PT/OT consult / c/w ASA, statin /day time team may call Neurology 2 Atypical Chest pain Possibly 2/2 GERD Plan: telemetry /f/u serial trops, BNP /PPI 3 Morbid Obesity BMI 50 complicates care Plan: can f/u w PCP for sleep apnea screening and referral to bariatric surgeon rest per 's H&P MUSA GARCIA MD Jun 16, 2020 23:03
[2020-06-17] MEDS: DULoxetine 30 MG CAP (CYMBALTA) PO SCH ×3 (00:22→22:32)
[2020-06-17] MEDS: GABAPENTIN 300 MG CAP PO SCH ×4 (00:22→22:32)
[2020-06-17] MEDS ORDERED: GLUCAGON INJ 1MG VIAL SC PRN (00:30)
[2020-06-17] MEDS ORDERED: GLUCOSE 4GM CHEW TABLET PO PRN (00:30)
[2020-06-17] MEDS ORDERED: DEXTROSE 50% 50 ML SYRINGE IV PRN (00:30)
[2020-06-17] MEDS: oxyCODONE 5MG TAB PO PRN ×4 (00:38→22:33)
[2020-06-17] MEDS: METOPROLOL TART 25 MG TABLET PO SCH ×3 (00:39→22:32)
--- NOTE | 2020-06-17 02:30 | HPEPDOC ---
[facility] Medical History & Physical Date of Admission Jun 16, 2020 Date of Service: Jun 16, 2020 Attending Physician: MUSA GARCIA MD History and Physical CHIEF COMPLAINT: Chest pain, facial droop HISTORY OF PRESENT ILLNESS: Pat Klein is a 64 YO F resident of the [facility] who presented to the ED this afternoon with chief complaint of chest pain and shortness of breath that started around 1330 today. The patient described the pain as being located in the middle of her chest and radiating to her back and her shoulders. She denies any recent illnesses, changes to her medications, but does report she recently had a lower back steroid injection for chronic pain from the pain clinic. In addition, when she arrived to the ED she was found to have left-sided facial droop which at the time of my exam had resolved. The patient's left-sided facial droop was observed by the ED M.D. In addition, the patient was given GI cocktail in the ED and chest pain resolved. Troponins and EKG were found to be within normal limits. At the time of my interview the patient states she feels well and no longer has any chest pain or shortness of breath. PAST MEDICAL HISTORY: Hospitalizations for hepatic encephalopathy. BUSTAMANTE with cirrhosis. CHF with grade 2 diastolic dysfunction CKD 3 Recurrent abdominal wall cellulitis/panniculitis. Leukocytopenia Schizophrenia. IDDM2 COPD, unspecified degree Obstructive sleep apnea noncompliant with CPAP Hyperlipidemia. Hypertension. Chronic venous stasis ulcers on her legs. Morbidly obese Chronic low back pain, sees pain management Chronic neck pain PAST SURGICAL HISTORY: Right hip fracture and repair approximately 3 years ago. Hysterectomy with oophorectomy for benign reasons. EGD and colonoscopy about 9 years ago. Lesion excised from her hard palate which turned out to be an ulcerated hemangioma. SOCIAL HISTORY: Lives at [facility] Former smoker, quit >20 years ago Denies EtOH, Denies illicit drug use FAMILY HISTORY: noncontributory ALLERGIES: Please see below. REVIEW OF SYSTEMS: Constitutional: No Weight Change, No Fever, No Chills, No Night Sweats, No Fat igue, No Malaise ENT/Mouth: No Hearing Changes, No Ear Pain, No Nasal Congestion, No Sinus Pain, No Hoarseness, No sore throat, No Rhinorrhea, No Swallowing Difficulty Eyes: No Eye Pain, No Swelling, No Redness, No Foreign Body, No Discharge, No Vision Changes Cardiovascular: No Chest Pain, No SOB, No PND, No Dyspnea on Exertion, No Orthopnea, No Claudication, No Edema, No Palpitations Respiratory: No Cough, No Wheezing, No Smoke Exposure, No Dyspnea Gastrointestinal: No Nausea, No Vomiting, No Diarrhea, No Constipation, No Pain, No Heartburn, No Anorexia, No Dysphagia, No Hematochezia, No Melena, No Flatulence, No Jaundice Genitourinary: No Dysmenorrhea, No DUB, No Dyspareunia, No Dysuria Musculoskeletal: No Arthralgias, No Myalgias, No Joint Swelling, No Joint Stiffness, No Back Pain, No Neck Pain, No Injury History Skin: No Skin Lesions, No Pruritis, No Hair Changes, No Breast/Skin Changes, No Nipple Discharge Neuro: No Weakness, No Numbness, No Paresthesias, No Loss of Consciousness, No Syncope, No Dizziness, No Headache, No Coordination Changes, No Recent Falls Psych: No Anxiety/Panic, No Depression, No Insomnia, No Personality Changes, No Delusions Heme/Lymph: No Bruising, No Bleeding, No Transfusions History, No Lymphadenopathy Endocrine: No Polyuria, No Polydipsia, No Temperature Intolerance HOME MEDICATIONS: Please see below. VITAL SIGNS: see below GENERAL: [place] obese, alert and oriented, in no apparent distress, pleasant and conversant in full sentences. HEENT: PERRL, EOMI, Oral mucous membranes are moist without lesions. Normocephalic, atraumatic NECK: Difficult to determine whether the patient has JVD. No adenopathy is appreciated. No thyromegaly CHEST/LUNGS: Lungs are clear bilaterally without rhonchi, rales, or wheezes. There is no subcutaneous air appreciated. There is no tenderness to the chest wall. HEART: Regular rate and rhythm. No murmurs, rubs, or gallops are appreciated. Distal pulses are 1+. No carotid bruits appreciated. ABDOMEN: Obese, Soft, nontender, and nondistended. Bowel sounds are positive. No organomegaly is appreciated. No masses are appreciated. There are no peritoneal signs. There is no Pioneer sign. EXTREMITIES: There is evidence of chronic venous stasis and lower extremity bilaterally with trace pitting edema bilaterally. lower extremities are wrapped SKIN: The patients skin is warm and dry, without rashes or lesions. PSYCHIATRIC: AAO x 3, normal mood/affect NEUROLOGIC: The patient has 5/5 strength to the upper and lower extremities bilaterally. Sensation is intact throughout. Deep tendon reflexes are 2+ in all four extremities. There are no deficits to the cranial nerves. LABORATORY DATA: See below. IMAGING: CXR: FINDINGS: Lungs: No focal lung consolidation. Stable central bronchial wall thickening. Pleural space: No pleural effusion. Heart/Mediastinum: No significant enlargement of the cardiomediastinal silhouette. Bones/joints: Prior right humeral fracture again noted. IMPRESSION: No acute findings. CT HEAD WITHOUT CONTRAST: FINDINGS: Brain: There is no acute cortical infarction, intracranial hemorrhage or mass.There is mild diffuse heterogeneity of the white matter, most consistent with microangiopathy. Cerebral ventricles: The ventricles appear mildly enlarged, but not out of proportion to the degree of parenchymal volume loss. Bones/joints: Unremarkable. No acute fracture. Paranasal sinuses: There is no significant mucoperiosteal thickening or air-fluid levels in the paranasal sinuses. Mastoid air cells: The middle ear cavities and mastoid air cells are clear. Orbits: There is leftward gaze deviation during the scan. Soft tissues: Unremarkable. IMPRESSION: No acute intracranial findings. MICROBIOLOGY: Please see below. ASSESSMENT: This is a 64-year-old female with IDDM 2, BUSTAMANTE Cirrhosis who presents with chest pain and shortness of breath resolved with GI cocktail found to have left facial droop now resolved concerning for TIA. PLAN: 1. Left-sided facial droop concerning for TIA: symptoms lasted for approximately 2 hours per ED MD -Head CT negative for any abnormality -s/p ASA 325mg in ED, will need secondary prevention with ASA 81mg daily moving forward -Echo ordered and pending -Continuous telemetry -ECG within normal limits -If symptoms return, would recommend follow up MRI to be done in the AM. Will defer this decision to day team 2. Chest pain, most likely 2/2 GERD: -Cardiac workup negative: troponins negative (drawn 6h after onset of pain), no EKG changes, resolved with GI cocktail -continue daily Omeprazole 40mg 3. Severe asymptomatic hypertension: BP found to be in 190s systolic on admission. Likely 2/2 lack of proper-fitting BP cuff -Continue home BP meds: Metoprolol, Spironolactone 4. IDDM2: -Continue Levemir 60U daily, 55U QHS -SSI with hypoglycemic protocol 5. dCHF (last Echo 01/2017, LVEF 65%) -Appears euvolemic on exam -Continue Torsemide -Fluid restriction 2L/day 6. Chronic pain: -Continue Cymbalta -Continue Oxycodone DVT ppx: Heparin GI ppx: Omeprazole Vital Signs Vital Signs Date Time Temp Pulse Resp B/P (MAP) Pulse Ox O2 Delivery O2 Flow Rate FiO2 06/16/20 22:50 63 112/59 06/16/20 22:47 18 98 Room Air 06/16/20 18:16 97.5 Laboratory Data Labs 24H Laboratory Tests 2 06/16/20 19:30: Immature Granulocyte % (Auto) 0.3, Neutrophils (%) (Auto) 82.0H, Lymphocytes (%) (Auto) 10.2L, Monocytes (%) (Auto) 7.0H, Eosinophils (%) (Auto) 0.2, Basophils (%) (Auto) 0.3, Neutrophils # (Auto) 9.8H, Lymphocytes # (Auto) 1.2L, Monocytes # (Auto) 0.8, Eosinophils # (Auto) 0.0, Basophils # (Auto) 0.0, Nucleated Red Blood Cells % (auto) 0.0, Prothrombin Time 13.7, Prothromb Time International Ratio 1.03, Activated Partial Thromboplast Time 27.2, Anion Gap 5L, Glomerular Filtration Rate 40.5L, Calcium Level 9.3, Total Bilirubin 0.3, Direct Bilirubin 0.2, Aspartate Amino Transf (AST/SGOT) 32, Alanine Aminotransferase (ALT/SGPT) 27, Alkaline Phosphatase 140H, Total Creatine Kinase 36, Creatine Kinase MB 1.1, Creatine Kinase MB Relative Index 3.06, Troponin I < 0.02, Total Protein 8.8H, Albumin 3.3, Albumin/Globulin Ratio 0.6L, Lipase 102, Thyroid Stimulating Hormon e (TSH) 1.560, Free Thyroxine 1.12 CBC/BMP Laboratory Tests 06/16/20 19:30 Home Medications Scheduled Buprenorphine (Butrans) 10 Mcg/Hr Patch.tdwk, 1 PATCH TOP QWEEK EVERY SATURDAY Duloxetine Hcl (Cymbalta) 30 Mg Capsule.dr, 30 MG PO BID Gabapentin (Gabapentin) 300 Mg Capsule, 300 MG PO TID 0500, 1300, 2100 Insulin Glargine (Lantus) 100 Unit/1 Ml Vial, 60 UNITS SC DAILY Insulin Glargine (Lantus) 100 Unit/1 Ml Vial, 55 UNITS SC QHS Levothyroxine Sodium (Levoxyl) 50 Mcg Tablet, 50 MCG PO DAILY Metoprolol Tartrate (Metoprolol Tartrate) 25 Mg Tablet, 25 MG PO BID Omeprazole (Omeprazole) 40 Mg Capsule.dr, 40 MG PO DAILY Potassium Chloride (Potassium Chloride) 10 Meq Tab.er.prt, 10 MEQ PO TID Spironolactone (Spironolactone) 50 Mg Tablet, 50 MG PO BID 0800 & 1700 Tiotropium [place] (Spiriva) 18 Mcg Cap.w.dev, 1 INHALATION INH DAILY Torsemide (Torsemide) 10 Mg Tablet, 10 MG PO BID 0800 & 1400 Scheduled PRN Acetaminophen (Tylenol) 325 Mg Tablet, 650 MG PO Q4H PRN for PAIN / FEVER Albuterol Sulf (Albuterol Sulfate) 2.5 Mg/3 Ml Vial.neb, 2.5 MG INH Q2H PRN for SOB/WHEEZING Bisacodyl (Dulcolax) 10 Mg Supp.rect, 10 MG DE DAILY PRN for CONSTIPATION Diphenhydramine HCl (Diphenhydramine HCl) 25 Mg Capsule, 25 MG PO Q6H PRN for ITCHING Eucalyptus/Menthol (Cough Drops) 1 Each Lozenge, 1 LOZENGE MT Q1H PRN for COUGH Menthol (Biofreeze) 118 Ml Gel..ml., 1 DOSE EXT Q4H PRN for PAIN APPLY TO PAINFUL JOINTS AND MUSCLES Milk Of Magnesia (Milk of Magnesia) 2,400 Mg/10 Ml Oral.susp, 10 ML PO DAILY PRN for CONSTIPATION Ondansetron HCl (Zofran) 4 Mg Tablet, 4 MG PO Q6H PRN for NAUSEA Oxycodone HCl (Oxycodone HCl) 10 Mg Tablet, 10 MG PO Q4H PRN for PAIN LEVEL 7-10 Sodium Phosphate,Garza-Dibasic (Enema) 133 Ml Enema, 1 EMANUEL DE DAILY PRN for CONSTIPATION Allergies Coded Allergies: Quinolones (Verified Allergy, Severe, HIVES, 07/27/19) Penicillins (Verified Allergy, Intermediate, HIVES, 07/27/19) ibuprofen (Verified Allergy, Intermediate, RASH, 07/27/19) A-FIB/CHADSVASC A-FIB History Current/History of A-Fib/PAF?: No GME ATTESTATION GME ATTESTATION My faculty preceptor for this patient encounter was physically present during the encounter and was fully available. All aspects of the patient interview, examination, medical decision making process, and medical care plan development were reviewed and approved by the faculty preceptor. The faculty preceptor is aware and concurs with the plan as stated in the body of this note and will attest to such by his/her cosignature. ATTENDING NOTE I agree with the findings as documented with the following additions Ms. Klein is a 64-year-old with history of diabetes, Bustamante, hypothyroidism, COPD, and RENEE who had chest pain and transient facial drop at 2PM which was about 5 hours prior to arrival in the ER; she will be admitted for evaluation of possible TIA and atypical chest pain. 1 Possible TIA -symptoms resolved -ABCD2 Score for risk of CVA after TIA = 3 points She received ASA in the ER Plan: admit to PCU / telemetry /fall precautions / f/u lipid panel for ACVD risk score & A1C / MRI brain, CTA head and neck, f/u Echo / / PT/OT consult / c/w ASA, statin /day time team may call Neurology 2 Atypical Chest pain Possibly 2/2 GERD Plan: telemetry /f/u serial trops, BNP /PPI 3 Morbid Obesity BMI 50 complicates care Plan: can f/u w PCP for sleep apnea screening and referral to bariatric surgeon PATRICIA JANE MD Jun 16, 2020 23:22 MUSA GARCIA MD Jun 17, 2020 04:35
[2020-06-17 04:00] VITALS: BP 153/90
[2020-06-17] MEDS ORDERED: ISOVUE-370 76% 100ML VIAL As Ordered ONE ×2 (04:52→07:30)
[2020-06-17] MEDS: LEVOTHYROXINE 50MCG TABLET (0.05MG) PO SCH (05:10)
[2020-06-17 05:45] LABS: HEMOGLOBIN 14.3 g/dl (12.0-15.5); MEAN CORPUSCULAR HEMOGLOBIN 30.4 pg (27.0-33.0); MEAN CORPUSCULAR HGB CONC 31.8 g/dl (32.0-36.5); MEAN CORPUSCULAR VOLUME 95.7 fl (80.0-96.0); PLATELET COUNT, AUTOMATED 198 10^3/uL (150-450); WHITE BLOOD COUNT 9.6 10^3/uL (4.0-10.0)
[2020-06-17 06:12] LABS: HEMOGLOBIN A1c 6.7 %
[2020-06-17 06:26] LABS: BLOOD UREA NITROGEN 35 MG/DL (7-18); CALCIUM LEVEL 8.8 MG/DL (8.8-10.2); CARBON DIOXIDE LEVEL 24 MEQ/L (21-32); CHLORIDE LEVEL 106 MEQ/L (98-107); CHOLESTEROL LEVEL 120 MG/DL (<200); GLUCOSE, FASTING 116 MG/DL (70-100); HDL CHOLESTEROL 43 MG/DL (>40); LDL CHOLESTEROL 59 MG/DL (<100); MAGNESIUM LEVEL 2.2 MG/DL (1.8-2.4); NON-HDL-C 77 MG/DL; NT-PRO BNP 79 PG/ML (<125); POTASSIUM SERUM 5.6 MEQ/L (3.5-5.1); SODIUM LEVEL 136 MEQ/L (136-145); TRIGLYCERIDES LEVEL 88 MG/DL (<150); TROPONIN I < 0.02 NG/ML (< 0.10)
[2020-06-17] MEDS: HumaLOG INSULIN (NovoLOG) PER UNIT SC SCH ×4 (07:30→21:00)
[2020-06-17 08:00] VITALS: BP 124/80
[2020-06-17] MEDS: TIOTROPIUM INHALER/CAPSULE (SPIRIVA) INH SCH (08:07)
[2020-06-17] MEDS: TORSEMIDE 10 MG TABLET PO SCH ×2 (08:49→14:21)
[2020-06-17] MEDS: SPIRONOLACTONE 50 MG TAB PO SCH ×2 (08:50→17:00)
[2020-06-17] MEDS: OMEPRAZOLE 20 MG CAP PO SCH (08:50)
[2020-06-17] MEDS: DOCUSATE SODIUM 100 MG CAP PO SCH ×2 (08:51→21:00)
[2020-06-17] MEDS: ASPIRIN 81 MG ENTERIC TAB PO SCH (08:51)
[2020-06-17] MEDS: ATORVASTATIN 20 MG TAB PO SCH (08:51)
[2020-06-17] MEDS: HEPARIN SOD (PORCINE) 5000UNITS/ML 1ML VIAL/SYRINGE SC SCH ×2 (08:51→22:31)
[2020-06-17] MEDS ORDERED: LEVEMIR (INSULIN DETEMIR) 1 UNITS/0.01ML SC SCH ×2 (09:00→21:00)
--- NOTE | 2020-06-17 10:27 | REPVR ---
PROCEDURE INFORMATION: Exam: CT Angiography Neck With Contrast Exam date and time: 06/17/2020 9:39 AM Age: 64 years old Clinical indication: Other: Facial droop TECHNIQUE: Imaging protocol: Computed tomography angiography of the neck with intravenous contrast. 3D rendering (Not supervised by radiologist): MIP and/or 3D reconstructed images were created by the technologist. Radiation optimization: All CT scans at this facility use at least one of these dose optimization techniques: automated exposure control; mA and/or kV adjustment per patient size (includes targeted exams where dose is matched to clinical indication); or iterative reconstruction. Contrast material: ISOVUE 370; Contrast volume: 100 ml; Contrast route: INTRAVENOUS (IV); COMPARISON: No relevant prior studies available. FINDINGS: Right common carotid artery: No stenosis. No dissection or occlusion. Right internal carotid artery: No stenosis of the extracranial segment. No dissection or occlusion. Right external carotid artery: No occlusion or stenosis of the origin. Right vertebral artery: No stenosis. No dissection or occlusion. Left common carotid artery: No stenosis. No dissection or occlusion. Left internal carotid artery: No stenosis of the extracranial segment. No dissection or occlusion. Left external carotid artery: No occlusion or stenosis of the origin. Left vertebral artery: No stenosis. No dissection or occlusion. Bones/joints: No acute fracture. Soft tissues: Normal. No significant soft tissue swelling. Esophagus: The esophagus is distended with fluid and air. The cause for this is not determined on this exam. IMPRESSION: 1. No significant arterial stenosis or occlusion. 2. The esophagus is distended with fluid and air. The cause for this is not determined on this exam. Follow-up chest CT scan is recommended. Electronically signed by: Andres Perez On 06/17/2020 10:26:45 AM
--- NOTE | 2020-06-17 10:31 | REPVR ---
PROCEDURE INFORMATION: Exam: CT Angiography Head With Contrast Exam date and time: 06/17/2020 9:39 AM Age: 64 years old Clinical indication: Other: Facial droop TECHNIQUE: Imaging protocol: Computed tomography angiography of the head with intravenous contrast. 3D rendering (Not supervised by radiologist): MIP and/or 3D reconstructed images were created by the technologist. Radiation optimization: All CT scans at this facility use at least one of these dose optimization techniques: automated exposure control; mA and/or kV adjustment per patient size (includes targeted exams where dose is matched to clinical indication); or iterative reconstruction. Contrast material: ISOVUE 370; Contrast volume: 100 ml; Contrast route: INTRAVENOUS (IV); COMPARISON: CT Head without contrast 06/16/2020 7:36 PM FINDINGS: ANTERIOR CIRCULATION: Right internal carotid artery: Unremarkable. Intracranial segment is patent with no significant stenosis. No aneurysm. Right middle cerebral artery: Unremarkable. No occlusion or significant stenosis. No aneurysm. Right anterior cerebral artery: Unremarkable. No occlusion or significant stenosis. No aneurysm. Left internal carotid artery: Unremarkable. Intracranial segment is patent with no significant stenosis. No aneurysm. Left middle cerebral artery: Unremarkable. No occlusion or significant stenosis. No aneurysm. Left anterior cerebral artery: Unremarkable. No occlusion or significant stenosis. No aneurysm. POSTERIOR CIRCULATION: Right vertebral artery: Unremarkable. No occlusion or significant stenosis. No aneurysm. Left vertebral artery: Unremarkable. No occlusion or significant stenosis. No aneurysm. Basilar artery: Unremarkable. No occlusion or significant stenosis. No aneurysm. Right posterior cerebral artery: There is a origin of the right posterior cerebral artery. Left posterior cerebral artery: There is a origin of the left posterior cerebral artery. IMPRESSION: No large vessel stenosis or occlusion. Electronically signed by: Andres Perez On 06/17/2020 10:30:53 AM
[2020-06-17 12:00] VITALS: BP 135/76
[2020-06-17 12:49] LABS: BLOOD UREA NITROGEN 36 MG/DL (7-18); CALCIUM LEVEL 9.1 MG/DL (8.8-10.2); CARBON DIOXIDE LEVEL 28 MEQ/L (21-32); CHLORIDE LEVEL 102 MEQ/L (98-107); CREATININE FOR GFR 1.28 MG/DL (0.55-1.30); GLOMERULAR FILTRATION RATE 44.6 (>45); GLUCOSE, FASTING 149 MG/DL (70-100); SODIUM LEVEL 134 MEQ/L (136-145); TROPONIN I < 0.02 NG/ML (< 0.10)
[2020-06-17] MEDS ORDERED: FUROSEMIDE 40MG/4ML VIAL (J1940) IV ONE (14:00)
[2020-06-17 20:00] VITALS: BP 127/86
--- NOTE | 2020-06-17 21:01 | REPVR ---
PROCEDURE INFORMATION: Exam: MR Head Without Contrast Exam date and time: 06/17/2020 8:52 PM Age: 64 years old Clinical indication: Weakness, facial; Additional info: Transient facial droop and accelerated HTN TECHNIQUE: Imaging protocol: MR of the head without contrast. COMPARISON: CT Head without contrast 06/16/2020 7:36 PM FINDINGS: Brain: There is mild cerebral atrophy. Changes of chronic white matter microvascular disease are present. No signs of a recent infarction or hemorrhage. Cerebral ventricles: Normal. No ventriculomegaly. Bones/joints: Unremarkable. Paranasal sinuses: Normal as visualized. No acute sinusitis. Mastoid air cells: Normal as visualized. No mastoid effusion. Orbits: Unremarkable. Soft tissues: Unremarkable. IMPRESSION: Atrophy and chronic white matter changes. No acute intracranial abnormality. Electronically signed by: Wilfrid Rosas On 06/17/2020 21:00:45 PM
[2020-06-17 21:32] LABS: CALCIUM LEVEL 8.6 MG/DL (8.8-10.2); CREATININE FOR GFR 1.56 MG/DL (0.55-1.30); GLOMERULAR FILTRATION RATE 35.5 (>45); POTASSIUM SERUM 4.6 MEQ/L (3.5-5.1)
[2020-06-17] MEDS: LEVEMIR (INSULIN DETEMIR) 1 UNITS/0.01ML SC SCH (22:31)
--- NOTE | 2020-06-17 22:52 | IPNPDOC ---
Subjective Date Seen The patient was seen on 06/17/20. Subjective Chief Complaint/HPI Mrs. Klein is a 64 year old female from [facility] who initially had chest pain and SOB, but then found to have left sided facial droop which resolved. She was admitted for TIA work up. This morning, she denied any chest pain, dyspnea, abdominal pain, or dysuria. Constitutional: Denies: Chills, Fever Pulmonary: Denies: Dyspnea Cardiovascular: Denies: Chest Pain Gastrointestinal: Denies: Abdominal Pain Genitourinary: Denies: Dysuria Objective Physical Examination General Exam: Positive: Alert, Cooperative, No Acute Distress Eye Exam: Positive: EOMI; Negative: Sclera icteric ENT Exam: Positive: Atraumatic Neck Exam: Positive: Supple Chest Exam: Positive: Clear to auscultation Heart Exam: Positive: Rate Normal, Regular Rhythm Abdomen Exam: Positive: Normal bowel sounds, Soft; Negative: Tenderness Extremity Exam: Positive: Edema (bilateral pitting edema) Psych Exam: Positive: Mental status NL, Mood NL Assessment /Plan Assessment Mrs. Klein is a 64 year old female who is here for TIA symptoms. MRI was unremarkable. CT angio of the head and neck were unremarkable except for air and fluid in esophagus. Recommended CT chest for follow up. Atypical chest pain may be related to the air and fluid in esophagus. Otherwise, she has cleared PT and may go back when clinically stable. Plan/VTE VTE Prophylaxis Ordered?: Yes Plan 1. TIA - Had facial droop which resolved. - MRI negative, work up unremarkable - Continue aspirin and statin 2. Atypical chest pain - 2/2 GERD vs esophageal findings on CT neck. - Will obtain CT chest to evaluate 3. Hypertension - Continue metoprolol and spironolactone 4. DM type 2 - Sliding scale insulin and levemir 5. Diastolic CHF - Appears stable, continue torsemide - Continue fluid restriction. 6. Chronic pain - Continue cymbalta and oxycodone 7. Morbid obesity - BMI 50 - Can follow up with PCP for sleep apnea screening and referral to bariatric surgeon 8. Hyperkalemia - Potassium was elevated at 6 today. Obtained EKG which appeared NSR without QTc prolongation. - Gave lasix. Repeat BMP demonstrated potassium of 4.6. Continue to monitor 9. DVT ppx - Heparin VS, I&O, 24H, Fishbone Vital Signs/I&O Vital Signs Date Time Temp Pulse Resp B/P (MAP) Pulse Ox O2 Delivery O2 Flow Rate FiO2 06/17/20 22:33 18 Room Air 06/17/20 22:32 70 136/68 06/17/20 20:00 96.7 96 I&O- Last 24 Hours up to 6 AM 06/17/20 06:00 Intake Total 0 ml Output Total 600 ml Balance -600 ml Laboratory Data 24H LABS Laboratory Tests 2 06/17/20 00:20: Bedside Glucose (Misc Panel) 67L 06/17/20 05:25: Nucleated Red Blood Cells % (auto) 0.0, Erythrocyte Sedimentation Rate 49H, Anion Gap 6L, Glomerular Filtration Rate 48.0, Estimated Mean Plasma Glucose 146H, Hemoglobin A1c 6.7, Calcium Level 8.8, Magnesium Level 2.2, Troponin I < 0.02, XQ-Ots-[id number]-Type Natriuretic Peptide 79, Triglycerides Level 88, Total Cholesterol 120, LDL Cholesterol 59, Non-HDL Cholesterol (LDL + VLDL) 77, Total HDL Cholesterol 43, Cholesterol/HDL Ratio 2.790 06/17/20 11:47: Bedside Glucose (Misc Panel) 177H 06/17/20 12:13: Anion Gap 4L, Glomerular Filtration Rate 44.6L, Calcium Level 9.1, Troponin I < 0.02 06/17/20 18:03: Bedside Glucose (Misc Panel) 130H 06/17/20 21:03: Anion Gap 8, Glomerular Filtration Rate 35.5L, Calcium Level 8.6L 06/17/20 21:34: Bedside Glucose (Misc Panel) 229H CBC/BMP Laboratory Tests 06/17/20 05:25 06/17/20 12:13 06/17/20 21:03 RAMIN MARC DO Jun 17, 2020 22:52
[2020-06-18] VITALS: BP 140/82
[2020-06-18] MEDS: oxyCODONE 5MG TAB PO PRN ×3 (02:50→18:22)
[2020-06-18 04:00] VITALS: BP 136/67
[2020-06-18 05:06] LABS: HEMATOCRIT 41.5 % (36.0-47.0); HEMOGLOBIN 13.3 g/dl (12.0-15.5); MEAN CORPUSCULAR HEMOGLOBIN 29.9 pg (27.0-33.0); MEAN CORPUSCULAR VOLUME 93.3 fl (80.0-96.0); PLATELET COUNT, AUTOMATED 200 10^3/uL (150-450); RED BLOOD COUNT 4.45 10^6/uL (4.00-5.40); WHITE BLOOD COUNT 9.1 10^3/uL (4.0-10.0)
[2020-06-18 05:29] LABS: CALCIUM LEVEL 8.2 MG/DL (8.8-10.2); CREATININE FOR GFR 1.33 MG/DL (0.55-1.30); GLOMERULAR FILTRATION RATE 42.6 (>45)
[2020-06-18] MEDS: GABAPENTIN 300 MG CAP PO SCH ×3 (06:10→21:17)
[2020-06-18] MEDS: LEVOTHYROXINE 50MCG TABLET (0.05MG) PO SCH (06:10)
[2020-06-18] MEDS: TIOTROPIUM INHALER/CAPSULE (SPIRIVA) INH SCH (07:41)
[2020-06-18 08:00] VITALS: BP 136/69
--- NOTE | 2020-06-18 08:17 | REPVR ---
PROCEDURE INFORMATION: Exam: CT Chest Without Contrast Exam date and time: 06/18/2020 7:48 AM Age: 64 years old Clinical indication: Other: Esophagus with fluid and air TECHNIQUE: Imaging protocol: Computed tomography of the chest without contrast. 3D rendering (Not supervised by radiologist): MIP and/or 3D reconstructed images were created by the technologist. Radiation optimization: All CT scans at this facility use at least one of these dose optimization techniques: automated exposure control; mA and/or kV adjustment per patient size (includes targeted exams where dose is matched to clinical indication); or iterative reconstruction. COMPARISON: CT Chest without contrast 01/27/2017 12:19 AM FINDINGS: Lungs: Several scattered sub-6 mm pulmonary nodules are present measuring up to 4 mm, some which are stable although several are not appreciable on the most recent comparison CT. Mild reticular peripheral pulmonary fibrosis, without honeycombing. Pleural space: No pneumothorax. No pleural effusion. Heart: Aortic annular and coronary artery calcifications are present. Mediastinal space: Unremarkable non-contrast CT appearance of the esophagus. Aorta: Mild aortic and branch vessel atherosclerosis. Other arteries: There are likely 2 small peripherally calcified splenic artery aneurysms measuring up to 1.1 cm, not significantly changed. Lymph nodes: No enlarged lymph nodes. Liver: Mildly nodular contours to the liver suggesting underlying cirrhosis the umbilical vein appears widely recannulized. Gallbladder and bile ducts: Cholecystectomy changes. No biliary ductal dilation. Spleen: Mild splenomegaly. Bones/joints: No acute fracture. Soft tissues: Unremarkable. IMPRESSION: 1. Unremarkable non-contrast CT appearance of the esophagus. 2. There is likely hepatic cirrhosis , with evidence of portal hypertension. 3. Several small pulmonary nodules are present.For patients at low risk (minimal or absent history of smoking and of other known risk factors), no routine follow-up is indicated. For patients at high risk (history of smoking or of other known risk factors), consider optional CT Chest at 12 months. (Reference: Tom) REFERENCES: Tom H, et al. Guidelines for Management of Incidental Pulmonary Nodules Detected on CT Images: From the Fleischner Society 2017. Radiology. 2017;284(1):228-243. Electronically signed by: Fransisco Pablo On 06/18/2020 08:16:42 AM
[2020-06-18] MEDS: ATORVASTATIN 20 MG TAB PO SCH (08:35)
[2020-06-18] MEDS: DOCUSATE SODIUM 100 MG CAP PO SCH ×2 (08:35→21:00)
[2020-06-18] MEDS: METOPROLOL TART 25 MG TABLET PO SCH ×2 (08:35→21:18)
[2020-06-18] MEDS: ASPIRIN 81 MG ENTERIC TAB PO SCH (08:35)
[2020-06-18] MEDS: TORSEMIDE 10 MG TABLET PO SCH ×2 (08:36→13:33)
[2020-06-18] MEDS: OMEPRAZOLE 20 MG CAP PO SCH (08:36)
[2020-06-18] MEDS: SPIRONOLACTONE 50 MG TAB PO SCH ×2 (08:36→18:19)
[2020-06-18] MEDS: DULoxetine 30 MG CAP (CYMBALTA) PO SCH ×2 (08:36→21:18)
[2020-06-18] MEDS: HEPARIN SOD (PORCINE) 5000UNITS/ML 1ML VIAL/SYRINGE SC SCH ×2 (08:37→21:17)
[2020-06-18] MEDS: HumaLOG INSULIN (NovoLOG) PER UNIT SC SCH ×4 (08:38→21:26)
[2020-06-18] MEDS: LEVEMIR (INSULIN DETEMIR) 1 UNITS/0.01ML SC SCH ×2 (08:39→21:17)
--- NOTE | 2020-06-18 09:43 | ECGEPIP ---
[facility] Test Date: 2020-06-17 Pat Name: HODAN FARFAN Department: Room: [place] [address] Gender: Female Financial Services Director: MARINA : 1955 Requested By: RAMIN Marroquin Order Number: [id number] Reading MD: Steven Golden Measurements Intervals Hector Rate: 64 P: 32 KS: 142 QRS: 20 QRSD: 93 T: 58 QT: 412 QTc: 428 Interpretive Statements Normal sinus rhythm Normal EKG No significant change when compared to prior tracing of 06/16/2020 Electronically Signed on 06-18-2020 9:43:23 EDT by Steven Golden
[2020-06-18 12:00] VITALS: BP 164/91
[2020-06-18] MEDS: NYSTATIN 100,000 UNITS/GM TOPICAL PWD 15 GM TOP SCH ×2 (13:33→21:18)
[2020-06-18 16:00] VITALS: BP 161/80
[2020-06-18] MEDS: diphenhydrAMINE 25MG CAP PO PRN (18:22)
[2020-06-18 20:00] VITALS: BP 128/62
--- NOTE | 2020-06-18 20:10 | IPNPDOC ---
Subjective Date Seen The patient was seen on 06/18/20. Subjective Chief Complaint/HPI Mrs. Klein is a 64 year old female from [facility] who initially had chest pain and SOB, but then found to have left sided facial droop which resolved. Today did not see any facial droop. She complained of some abdominal pain which improves with bowel movement. Otherwise, she feels like she has a rash developing underneath abdominal fold. She denies any fever or chills, chest pain, dyspnea, or dysuria. Constitutional: Denies: Chills, Fever Pulmonary: Denies: Dyspnea Cardiovascular: Denies: Chest Pain Gastrointestinal: Reports: Abdominal Pain Genitourinary: Denies: Dysuria Objective Physical Examination General Exam: Positive: Alert, Cooperative, No Acute Distress Eye Exam: Positive: EOMI; Negative: Sclera icteric ENT Exam: Positive: Atraumatic Neck Exam: Positive: Supple Chest Exam: Positive: Clear to auscultation Heart Exam: Positive: Rate Normal, Regular Rhythm Abdomen Exam: Positive: Normal bowel sounds, Soft; Negative: Tenderness Extremity Exam: Positive: Edema (bilateral pitting edema) Psych Exam: Positive: Mental status NL, Mood NL Assessment /Plan Assessment Mrs. Klein is a 64 year old female who is here for TIA symptoms. MRI was unremarkable. CT angio of the head and neck were unremarkable except for air and fluid in esophagus. Atypical chest pain may be related to the air and fluid in esophagus. CT chest was unremarkable. Otherwise, she has cleared PT and may go back when clinically stable. Plan/VTE VTE Prophylaxis Ordered?: Yes Plan 1. TIA - Had facial droop which resolved. - MRI negative, work up unremarkable - Continue aspirin and statin 2. Atypical chest pain - 2/2 GERD vs esophageal findings on CT neck. CT chest was unremarkable 3. Hypertension - Continue metoprolol and spironolactone 4. DM type 2 - Sliding scale insulin and levemir 5. Diastolic CHF - Appears stable, continue torsemide - Continue fluid restriction. 6. Chronic pain - Continue cymbalta and oxycodone 7. Morbid obesity - BMI 50 - Can follow up with PCP for sleep apnea screening and referral to bariatric surgeon 8. Hyperkalemia - Potassium was elevated at 6 on 06/17/2020 Resolved, continue to monitor 9. DVT ppx - Heparin VS, I&O, 24H, Fishbone Vital Signs/I&O Vital Signs Date Time Temp Pulse Resp B/P (MAP) Pulse Ox O2 Delivery O2 Flow Rate FiO2 06/18/20 18:22 16 06/18/20 16:00 98.7 65 161/80 (107) 100 Room Air I&O- Last 24 Hours up to 6 AM 06/18/20 06:00 Intake Total 655 ml Output Total 720 ml Balance -65 ml Laboratory Data 24H LABS Laboratory Tests 2 06/17/20 21:03: Anion Gap 8, Glomerular Filtration Rate 35.5L, Calcium Level 8.6L 06/17/20 21:34: Bedside Glucose (Misc Panel) 229H 06/18/20 04:44: Anion Gap 6L, Glomerular Filtration Rate 42.6L, Calcium Level 8.2L, Nucleated Red Blood Cells % (auto) 0.0 06/18/20 11:59: Bedside Glucose (Misc Panel) 315H 06/18/20 17:52: Bedside Glucose (Misc Panel) 169H CBC/BMP Laboratory Tests 06/17/20 21:03 06/18/20 04:44 RAMIN MARC DO Jun 18, 2020 20:10
[2020-06-19] VITALS: BP 136/66
[2020-06-19] MEDS: oxyCODONE 5MG TAB PO PRN ×5 (00:55→18:23)
[2020-06-19 04:00] VITALS: BP 136/92
[2020-06-19 05:43] LABS: HEMATOCRIT 45.3 % (36.0-47.0); HEMOGLOBIN 13.4 g/dl (12.0-15.5); MEAN CORPUSCULAR HEMOGLOBIN 29.5 pg (27.0-33.0); MEAN CORPUSCULAR HGB CONC 29.6 g/dl (32.0-36.5); MEAN CORPUSCULAR VOLUME 99.6 fl (80.0-96.0); PLATELET COUNT, AUTOMATED 169 10^3/uL (150-450); RED BLOOD COUNT 4.55 10^6/uL (4.00-5.40); WHITE BLOOD COUNT 7.3 10^3/uL (4.0-10.0)
[2020-06-19] MEDS: GABAPENTIN 300 MG CAP PO SCH ×3 (06:09→21:16)
[2020-06-19] MEDS: LEVOTHYROXINE 50MCG TABLET (0.05MG) PO SCH (06:09)
[2020-06-19 06:13] LABS: CALCIUM LEVEL 8.3 MG/DL (8.8-10.2); CREATININE FOR GFR 1.32 MG/DL (0.55-1.30); POTASSIUM SERUM 3.9 MEQ/L (3.5-5.1)
[2020-06-19] MEDS: TIOTROPIUM INHALER/CAPSULE (SPIRIVA) INH SCH (07:08)
[2020-06-19 08:00] VITALS: BP 138/76
[2020-06-19] MEDS: diphenhydrAMINE 25MG CAP PO PRN (08:34)
[2020-06-19] MEDS: DOCUSATE SODIUM 100 MG CAP PO SCH ×2 (08:34→21:00)
[2020-06-19] MEDS: TORSEMIDE 10 MG TABLET PO SCH ×2 (08:34→13:02)
[2020-06-19] MEDS: ASPIRIN 81 MG ENTERIC TAB PO SCH (08:34)
[2020-06-19] MEDS: DULoxetine 30 MG CAP (CYMBALTA) PO SCH ×2 (08:34→21:16)
[2020-06-19] MEDS: METOPROLOL TART 25 MG TABLET PO SCH ×2 (08:34→21:16)
[2020-06-19] MEDS: SPIRONOLACTONE 50 MG TAB PO SCH ×2 (08:34→18:23)
[2020-06-19] MEDS: OMEPRAZOLE 20 MG CAP PO SCH (08:34)
[2020-06-19] MEDS: NYSTATIN 100,000 UNITS/GM TOPICAL PWD 15 GM TOP SCH ×2 (08:35→21:17)
[2020-06-19] MEDS: HEPARIN SOD (PORCINE) 5000UNITS/ML 1ML VIAL/SYRINGE SC SCH ×2 (08:35→21:16)
[2020-06-19] MEDS: ATORVASTATIN 20 MG TAB PO SCH (08:35)
[2020-06-19] MEDS: LEVEMIR (INSULIN DETEMIR) 1 UNITS/0.01ML SC SCH ×2 (08:37→21:15)
[2020-06-19] MEDS: HumaLOG INSULIN (NovoLOG) PER UNIT SC SCH ×4 (08:37→21:16)
[2020-06-19 16:00] VITALS: BP 145/68
--- NOTE | 2020-06-19 19:54 | IPNPDOC ---
Subjective Date Seen The patient was seen on 06/19/20. Subjective Chief Complaint/HPI Mrs. Klein is a 64 year old female from [facility] who initially had chest pain and SOB, but then found to have left sided facial droop which resolved. Today did not see any facial droop. Denies any fever or chills, dyspnea, or dysuria. Constitutional: Denies: Chills, Fever Pulmonary: Denies: Dyspnea Gastrointestinal: Reports: Abdominal Pain Genitourinary: Denies: Dysuria Objective Physical Examination General Exam: Positive: Alert, Cooperative, No Acute Distress Eye Exam: Positive: EOMI; Negative: Sclera icteric ENT Exam: Positive: Atraumatic Neck Exam: Positive: Supple Chest Exam: Positive: Clear to auscultation Heart Exam: Positive: Rate Normal, Regular Rhythm Abdomen Exam: Positive: Normal bowel sounds, Soft; Negative: Tenderness Extremity Exam: Positive: Edema (bilateral pitting edema) Psych Exam: Positive: Mental status NL, Mood NL Assessment /Plan Assessment Mrs. Klein is a 64 year old female who is here for TIA symptoms. MRI was unremarkable. CT angio of the head and neck were unremarkable except for air and fluid in esophagus. Atypical chest pain may be related to the air and fluid in esophagus. CT chest was unremarkable. Otherwise, she has cleared PT and may go back when clinically stable. Plan/VTE VTE Prophylaxis Ordered?: Yes Plan 1. TIA - Had facial droop which resolved. - MRI negative, work up unremarkable - Continue aspirin and statin 2. Atypical chest pain - 2/2 GERD vs esophageal findings on CT neck. CT chest was unremarkable - Most likely secondary to GERD 3. Hypertension - Continue metoprolol and spironolactone 4. DM type 2 - Sliding scale insulin and levemir 5. Diastolic CHF - Appears stable, continue torsemide - Continue fluid restriction. 6. Chronic pain - Continue cymbalta and oxycodone 7. Morbid obesity - BMI 50 - Can follow up with PCP for sleep apnea screening and referral to bariatric surgeon 8. Hyperkalemia - Potassium was elevated at 6 on 06/17/2020 Resolved, continue to monitor 9. GERD - Continue omeprazole 10. DVT ppx - Heparin Dispo: Return to [facility] VS, I&O, 24H, Fishbone Vital Signs/I&O Vital Signs Date Time Temp Pulse Resp B/P (MAP) Pulse Ox O2 Delivery O2 Flow Rate FiO2 9/27/20 18:23 16 06/19/20 16:00 97.0 62 145/68 (93) 96 Room Air I&O- Last 24 Hours up to 6 AM 06/19/20 05:59 Intake Total 1020 ml Output Total 0 ml Balance 1020 ml Laboratory Data 24H LABS Laboratory Tests 2 06/18/20 21:16: Bedside Glucose (Misc Panel) 262H 06/19/20 05:14: Nucleated Red Blood Cells % (auto) 0.0, Anion Gap 6L, Glomerular Filtration Rate 43.0L, Calcium Level 8.3L 06/19/20 11:39: Bedside Glucose (Misc Panel) 245H 06/19/20 17:07: Bedside Glucose (Misc Panel) 207H CBC/BMP Laboratory Tests 06/19/20 05:14 RAMIN MARC DO Jun 19, 2020 19:54
[2020-06-19 20:00] VITALS: BP 170/89
[2020-06-20] VITALS: BP 139/72
[2020-06-20] MEDS: oxyCODONE 5MG TAB PO PRN ×4 (00:07→12:17)
[2020-06-20] MEDS: diphenhydrAMINE 25MG CAP PO PRN ×2 (00:07→07:59)
[2020-06-20 04:00] VITALS: BP 171/81
[2020-06-20] MEDS ORDERED: amLODIPine 10 MG TAB PO ONE (04:00)
[2020-06-20] MEDS: GABAPENTIN 300 MG CAP PO SCH ×2 (05:14→12:17)
[2020-06-20] MEDS: LEVOTHYROXINE 50MCG TABLET (0.05MG) PO SCH (05:14)
[2020-06-20 05:25] VITALS: BP 140/78
[2020-06-20] MEDS ORDERED: NITROGLYCERIN 0.4 MG SUBL TABLET SL STA (05:55)
[2020-06-20 06:43] LABS: HEMATOCRIT 38.7 % (36.0-47.0); HEMOGLOBIN 12.2 g/dl (12.0-15.5); MEAN CORPUSCULAR HGB CONC 31.5 g/dl (32.0-36.5); MEAN CORPUSCULAR VOLUME 95.1 fl (80.0-96.0); PLATELET COUNT, AUTOMATED 149 10^3/uL (150-450); RED BLOOD COUNT 4.07 10^6/uL (4.00-5.40); WHITE BLOOD COUNT 8.4 10^3/uL (4.0-10.0)
[2020-06-20 06:57] LABS: BLOOD UREA NITROGEN 35 MG/DL (7-18); CALCIUM LEVEL 8.2 MG/DL (8.8-10.2); CARBON DIOXIDE LEVEL 26 MEQ/L (21-32); CHLORIDE LEVEL 105 MEQ/L (98-107); CREATININE FOR GFR 1.24 MG/DL (0.55-1.30); GLOMERULAR FILTRATION RATE 46.2 (>45); GLUCOSE, FASTING 123 MG/DL (70-100); POTASSIUM SERUM 4.3 MEQ/L (3.5-5.1); SODIUM LEVEL 140 MEQ/L (136-145)
--- NOTE | 2020-06-20 07:05 | ECHO ---
DATE OF PROCEDURE: 06/17/2020 Age: 64 Gender: Female Height: 63 inches Weight: 277 pounds Body surface area: 2.22 m2 PATIENT LOCATION: Inpatient progressive care unit (PCU), Room 3212 REFERRING PHYSICIAN: Moriah Barger MD. INDICATION: Transient ischemic attack (TIA) cardiac source of embolic material ? MEASUREMENTS: 2D Measurements: RV 3.8 cm LV 4.5 cm Septum 1.0 cm Posterior wall 1.0 cm Aortic Root 2.8 cm LA 3.8 cm LVEF 65% Doppler Measurements: AV 1.24 m/s LVOT 0.95 m/s LVOT diameter 1.8 cm MV-E 81, A 71, E/A ratio 1.1 Early mitral deceleration time 222 m/s E prime medial 7.6, A prime medial 8, E prime lateral 9.1 Average E/E prime ratio 9.7/PCWP 13.9 mmHg PV 0.95 m/s Pulmonary artery acceleration time 148 m/s PASP 16 mmHg IVC 1.6 cm COMMENTS: Sinus bradycardia without intraventricular conduction disturbance. Technically challenging study in light of the patients body habitus, but some diagnostically useful information was still obtained. M-mode and two-dimensional echocardiography was performed with pulsed, continuous wave, color flow, and tissue Doppler studies. Normal left ventricular size, wall thickness, and wall motion. Normal left atrial size and Doppler assessment of left ventricular (LV) diastolic function and current estimated mean left atrial pressure. Normal right heart chamber sizes and motion and estimated pulmonary artery pressure. Normal inferior vena cava (IVC) size and collapse against an elevated central venous pressure. Normal aortic dimensions. Normal appearing and functioning aortic valve. Normal appearing and functioning tricuspid valve with no more than trace insufficiency. Normal appearing tricuspid valve with very mild insufficiency. Unable to detect an intracardiac mass or pericardial effusion. If a cardiac source of embolic material is seriously suspect in light of the patients body habitus, it would be prudent to consider a transesophageal echocardiogram. [facility]PITALS[facility]
[2020-06-20] MEDS: TIOTROPIUM INHALER/CAPSULE (SPIRIVA) INH SCH (07:28)
[2020-06-20] MEDS: TORSEMIDE 10 MG TABLET PO SCH (07:47)
[2020-06-20] MEDS: OMEPRAZOLE 20 MG CAP PO SCH (07:47)
[2020-06-20] MEDS: DOCUSATE SODIUM 100 MG CAP PO SCH (07:47)
[2020-06-20] MEDS: ASPIRIN 81 MG ENTERIC TAB PO SCH (07:47)
[2020-06-20] MEDS: SPIRONOLACTONE 50 MG TAB PO SCH (07:47)
[2020-06-20] MEDS: DULoxetine 30 MG CAP (CYMBALTA) PO SCH (07:47)
[2020-06-20] MEDS: HumaLOG INSULIN (NovoLOG) PER UNIT SC SCH ×2 (07:47→12:18)
[2020-06-20 07:48] VITALS: BP 142/80
[2020-06-20] MEDS: METOPROLOL TART 25 MG TABLET PO SCH (07:48)
[2020-06-20] MEDS: ATORVASTATIN 20 MG TAB PO SCH (07:48)
[2020-06-20] MEDS: LEVEMIR (INSULIN DETEMIR) 1 UNITS/0.01ML SC SCH (07:49)
[2020-06-20] MEDS: HEPARIN SOD (PORCINE) 5000UNITS/ML 1ML VIAL/SYRINGE SC SCH (07:49)
[2020-06-20] MEDS: NYSTATIN 100,000 UNITS/GM TOPICAL PWD 15 GM TOP SCH (07:50)
[2020-06-20 08:00] VITALS: BP 159/77
[2020-06-20 08:27] VITALS: BP 142/80
--- NOTE | 2020-06-20 09:49 | REPVR ---
PROCEDURE INFORMATION: Exam: CT Abdomen And Pelvis Without Contrast Exam date and time: 06/20/2020 8:26 AM Age: 64 years old Clinical indication: Abdominal pain TECHNIQUE: Imaging protocol: Computed tomography of the abdomen and pelvis without contrast. Radiation optimization: All CT scans at this facility use at least one of these dose optimization techniques: automated exposure control; mA and/or kV adjustment per patient size (includes targeted exams where dose is matched to clinical indication); or iterative reconstruction. COMPARISON: CT ABD PELVIS W/O CONTRAST 02/12/2017 4:13 PM FINDINGS: Lungs: Areas of pleuroparenchymal scarring, thickening or pneumonitis lower lungs. Greatest involvement within the medial right lower lobe and right middle lobe. Mediastinal space: Air distention of the distal esophagus. Next lung pelvic anterior abdominal wall skin thickening. Liver: Diminutive size of the liver with slight nodular contour. Prominent anterior abdominal wall venous collateral vasculature. Gallbladder and bile ducts: Postoperative cholecystectomy. Pancreas: Atrophic appearance of the pancreas. Spleen: Normal. No splenomegaly. Adrenals: Normal. No mass. Kidneys and ureters: Normal. No hydronephrosis. Stomach and bowel: Moderate stool throughout the colon. Appendix: No evidence of appendicitis. Intraperitoneal space: Unremarkable. No free air. No significant fluid collection. Vasculature: Splenic artery calcifications with possible 2 areas of splenic artery aneurysmal dilatation adjacent to the spleen margin measuring 1.0 cm and additional area more medially measuring 1.4 cm. Trace calcification abdominal aorta. Lymph nodes: Unremarkable. No enlarged lymph nodes. Urinary bladder: Unremarkable as visualized. Reproductive: Postoperative hysterectomy. Bones/joints: Degenerative change of the spine. Marked compression deformity of L5 has occurred since the prior CT of 02/12/2017. There is retropulsion of the posterior L5 vertebral body fragment into the spinal canal. Likely anterior fragment. Intramedullary hardware positioning right femur. Soft tissues: Anterior lower abdominal wall pelvic skin thickening. IMPRESSION: 1. Diminutive hepatic size with slight nodular contour. Correlate for any history of cirrhosis. 2. Skin thickening of the anterior pelvic wall. 3. Compression deformity of L5 with retropulsion of posterior vertebral body margin. Compression age could be acute although is age indeterminate. correlate for any recent history of trauma. Electronically signed by: Tali Celestin On 06/20/2020 09:48:23 AM
[2020-06-20 11:04] LABS: TROPONIN I < 0.02 NG/ML (< 0.10)
[2020-06-20] MEDS ORDERED: NYST10006 TOP (11:38)
[2020-06-20] MEDS ORDERED: ASPI81TAEC PO (11:38)
[2020-06-20] MEDS ORDERED: ATOR40TA75 PO (11:38)
--- NOTE | 2020-06-20 20:40 | DS.PDOC ---
Discharge Summary General Date of Admission Jun 16, 2020 at 21:57 Date of Discharge 06/20/2020 Attending Physician: RAMIN MARC DO Discharge Summary PROCEDURES PERFORMED DURING STAY: None. ADMITTING DIAGNOSES: 1. TIA. 2. GERD 3. Hypertension 4. Diabetes 5. Diastolic CHF 6. Chronic pain 7. Morbid obesity DISCHARGE DIAGNOSES: 1. TIA 2. Atypical chest pain 3. Hypertension 4. Diabetes mellitus type 2 5. Diastolic CHF 6. Chronic pain 7. Morbid obesity 8. Hyperkalemia 9. GERD COMPLICATIONS/CHIEF COMPLAINT: Hypertensive Urgency. HISTORY OF PRESENT ILLNESS: Mrs. Klein is a 64-year-old female resident of [facility] with diabetes mellitus type 2, CHF, CAD, hypertension, and morbid obesity who presents to [facility] for chest discomfort. While in the ED, she was found to have left-sided facial droop. Troponins are negative and EKG was not suggestive of ACS. Patient was admitted for TIA workup HOSPITAL COURSE: Her MRI was negative for acute stroke. CT angiogram head and neck was negative for large vessel stenosis or occlusion. CT angiogram of the neck did demonstrate that the esophagus was distended with fluid in her. We then ordered a CT chest which the esophagus unremarkable. Otherwise early this morning, she had some chest discomfort. Repeat EKG was negative for ACS. Recheck troponins which was negative. She also had abdominal pain. CT of the abdomen and pelvis was obtained. Did not show cause of abdominal pain. Otherwise, patient denied any fever or chills, lightheadedness or dizziness, dyspnea, dysuria. She felt ready to return and subsequently was discharged back to [facility]. DISCHARGE MEDICATIONS: Please see below. ALLERGIES: Please see below. PHYSICAL EXAMINATION ON DISCHARGE: VITAL SIGNS: Please see below. GENERAL: Comfortable, in no apparent distress. HEENT: Head normocephalic/atraumatic, EOMI, sclera clear. NECK: Supple RESPIRATORY: Lungs clear to auscultation bilaterally, no rales, wheeze or rhonchi. CARDIOVASCULAR: Regular rate and rhythm. ABDOMEN: Soft, nontender, no guarding or rebound tenderness. Normal bowel adin nds. Obese with abdominal folds MUSCLE SKELETAL: Muscle strength 5/5 in all extremities. NEUROLOGICAL: CN 312 grossly intact, no focal deficits noted. PSYCHOLOGICAL: Normal mood and affect LABORATORY DATA: Please see below. IMAGING: MRI of the head: Atrophy and chronic white matter changes. No acute intracranial abnormality. CT angiogram of the head: No large vessel stenosis or occlusion. CT angiogram of the neck: 1. No significant arterial stenosis or occlusion. 2. The esophagus is distended with fluid and air. The cause for this is not determined on this exam. Follow-up chest CT scan is recommended. CT of the chest: 1. Unremarkable non-contrast CT appearance of the esophagus. 2. There is likely hepatic cirrhosis , with evidence of portal hypertension. 3. Several small pulmonary nodules are present. CT of abdomen and pelvis: 1. Diminutive hepatic size with slight nodular contour. Correlate for any history of cirrhosis. 2. Skin thickening of the anterior pelvic wall. 3. Compression deformity of L5 with retropulsion of posterior vertebral body margin. Compression age could be acute although is age indeterminate. correlate for any recent history of trauma. PROGNOSIS: Stable ACTIVITY: As tolerated. DIET: Carbohydrate consistent DISCHARGE PLAN: To return to [facility] DISPOSITION: [facility]. DISCHARGE INSTRUCTIONS: 1. Follow-up with her PCP within a week DISCHARGE CONDITION: Stable Total time spent on discharge planning, stretched summary, and med reconciliation 35 minutes Vital Signs/I&Os Vital Signs Date Time Temp Pulse Resp B/P (MAP) Pulse Ox O2 Delivery O2 Flow Rate FiO2 06/20/20 12:17 20 Room Air 06/20/20 12:00 98.3 71 94 06/20/20 08:27 142/80 (100) I&O- Last 24 Hours up to 6 AM 06/20/20 06:00 Intake Total 1420 ml Output Total 0 ml Balance 1420 ml Laboratory Data Labs 24H Laboratory Tests 2 06/20/20 06:18: Nucleated Red Blood Cells % (auto) 0.0, Anion Gap 9, Glomerular Filtration Rate 46.2, Calcium Level 8.2L, Troponin I < 0.02 06/20/20 10:30: Coronavirus (COVID-19)(PCR) NEGATIVE 06/20/20 12:12: Bedside Glucose (Misc Panel) 209H CBC/BMP Laboratory Tests 06/20/20 06:18 FSBS Laboratory Tests Test 06/20/20 12:12 Range/Units Bedside Glucose (Misc Panel) 209 80-115 MG/DL Discharge Medications Scheduled Aspirin (Aspirin EC) 81 Mg Tablet.dr, 81 MG PO DAILY Atorvastatin Calcium (Atorvastatin Calcium) 40 Mg Tablet, 40 MG PO DAILY Buprenorphine (Butrans) 10 Mcg/Hr Patch.tdwk, 1 PATCH TOP QWEEK, (Reported) EVERY SATURDAY Duloxetine Hcl (Cymbalta) 30 Mg Capsule.dr, 30 MG PO BID, (Reported) Gabapentin (Gabapentin) 300 Mg Capsule, 300 MG PO TID, (Reported) 0500, 1300, 2100 Insulin Glargine (Lantus) 100 Unit/1 Ml Vial, 60 UNITS SC DAILY, (Reported) Insulin Glargine (Lantus) 100 Unit/1 Ml Vial, 55 UNITS SC QHS, (Reported) Levothyroxine Sodium (Levoxyl) 50 Mcg Tablet, 50 MCG PO DAILY, (Reported) Metoprolol Tartrate (Metoprolol Tartrate) 25 Mg Tablet, 25 MG PO BID, (Reported) Nystatin (Nystop) 60 Gm Powder, 0 DOSE TOP BID Apply under abdominal fold Omeprazole (Omeprazole) 40 Mg Capsule.dr, 40 MG PO DAILY, (Reported) Potassium Chloride (Potassium Chloride) 10 Meq Tab.er.prt, 10 MEQ PO TID, (Reported) Spironolactone (Spironolactone) 50 Mg Tablet, 50 MG PO BID, (Reported) 0800 & 1700 Tiotropium [place] (Spiriva) 18 Mcg Cap.w.dev, 1 INHALATION INH DAILY, (Reported) Torsemide (Torsemide) 10 Mg Tablet, 10 MG PO BID, (Reported) 0800 & 1400 Scheduled PRN Acetaminophen (Tylenol) 325 Mg Tablet, 650 MG PO Q4H PRN for PAIN / FEVER, (Reported) Albuterol Sulf (Albuterol Sulfate) 2.5 Mg/3 Ml Vial.neb, 2.5 MG INH Q2H PRN for SOB/WHEEZING, (Reported) Bisacodyl (Dulcolax) 10 Mg Supp.rect, 10 MG MN DAILY PRN for CONSTIPATION, (Reported) Diphenhydramine HCl (Diphenhydramine HCl) 25 Mg Capsule, 25 MG PO Q6H PRN for ITCHING, (Reported) Eucalyptus/Menthol (Cough Drops) 1 Each Lozenge, 1 LOZENGE MT Q1H PRN for COUGH, (Reported) Menthol (Biofreeze) 118 Ml Gel..ml., 1 DOSE EXT Q4H PRN for PAIN, (Reported) APPLY TO PAINFUL JOINTS AND MUSCLES Milk Of Magnesia (Milk of Magnesia) 2,400 Mg/10 Ml Oral.susp, 10 ML PO DAILY PRN for CONSTIPATION, (Reported) Ondansetron HCl (Zofran) 4 Mg Tablet, 4 MG PO Q6H PRN for NAUSEA, (Reported) Oxycodone HCl (Oxycodone HCl) 10 Mg Tablet, 10 MG PO Q4H PRN for PAIN LEVEL 7- 10, (Reported) Sodium Phosphate,Tama-Dibasic (Enema) 133 Ml Enema, 1 EMANUEL MN DAILY PRN for CONSTIPATION, (Reported) Allergies Coded Allergies: Quinolones (Verified Allergy, Severe, HIVES, 07/27/19) Penicillins (Verified Allergy, Intermediate, HIVES, 07/27/19) ibuprofen (Verified Allergy, Intermediate, RASH, 07/27/19) RAMIN MARC DO Jun 20, 2020 20:40
[2020-06-22] MEDS ORDERED: BUPRENORPHINE 10 MCG/HR TOP SCH (09:00)
--- NOTE | 2020-06-24 00:26 | ECGEPIP ---
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
== END 2020-06-20 12:55 | DRG 69 ==
LOC: M ED 17:29 → M ED INP 21:57 → ENRESERV 22:35 → M PCU 23:55
PROVIDERS: ADMIT Internal Medicine; ATTEND Internal Medicine
DX: G45.9 Transient cerebral ischemic attack, unspecified (principal); I50.32 Chronic diastolic (congestive) heart failure; I13.0 Hypertensive heart and chronic kidney disease with heart failure and stage 1 through stage 4 chronic kidney disease, or unspecified chronic kidney disease; Z68.43 Body mass index [BMI] 50.0-59.9, adult; M47.816 Spondylosis without myelopathy or radiculopathy, lumbar region; M47.817 Spondylosis without myelopathy or radiculopathy, lumbosacral region; K74.60 Unspecified cirrhosis of liver; K75.81 Nonalcoholic steatohepatitis (NASH); N18.3 Chronic kidney disease, stage 3 (moderate); E11.22 Type 2 diabetes mellitus with diabetic chronic kidney disease; Z66 Do not resuscitate; E87.5 Hyperkalemia; J44.9 Chronic obstructive pulmonary disease, unspecified; G47.33 Obstructive sleep apnea (adult) (pediatric); E78.5 Hyperlipidemia, unspecified; I87.2 Venous insufficiency (chronic) (peripheral); E66.01 Morbid (severe) obesity due to excess calories; Z87.891 Personal history of nicotine dependence; R29.810 Facial weakness; K21.9 Gastro-esophageal reflux disease without esophagitis; Z79.4 Long term (current) use of insulin; Z79.899 Other long term (current) drug therapy; R07.89 Other chest pain

== ENCOUNTER → 2020-06-23 | Outpatient (CLI) | payer MEDICARE, MEDICAID ==
[~2020-06-23] MED LIST changes: +ASPI1CHW3 PO; +ASPI81TAEC PO; +ATOR40TA75 PO; +BIOF4GEL4 EXT; +CEPH500T PO; +CHERLOZ MT; +CLIN150C14 PO; +DIPH25CA32 PO; +HYDR1CAP25 PO; +MYLASSUD PO; +OXYC10TA12 PO; +PROP20TA72 PO; +RISATAB3 PO
--- NOTE | 2020-06-29 11:42 | ECWPNPC ---
PATIENT NAME: HODAN FARFAN : 1955 GENDER: FEMALE VISIT DATE: 06/23/2020 DISCHARGE DATE: 06/23/20 164 VISIT LOCKED DATE TIME: PHYSICIAN: CAMACHO HERNANDEZ MD PHYSICIAN PAGER NO: INACTIVE RESOURCE: CAMACHO HERNANDEZ MD REASON FOR APPOINTMENT 1. POST BILATERAL LUMBAR FACET BLK HISTORY OF PRESENT ILLNESS DEPRESSION SCREENING: PHQ-2 (2015 EDITION) LITTLE INTEREST OR PLEASURE IN DOING THINGS?NOT AT ALL FEELING DOWN, DEPRESSED, OR HOPELESS?NOT AT ALL TOTAL SCORE0 64-YEAR-OLD FEMALE PATIENT WITH A HISTORY OF CHRONIC LOW BACK AND LEG PAIN. THE PATIENT DESCRIBES THE PAIN ACHING, TENDER, THROBBING AND CONTINUOUS WITH A PAIN SCORE RANGING FROM 6-9/10 DEPENDING ON PHYSICAL ACTIVITY IN THE BACK AND MAINLY TOWARDS THE LEFT LEG. THE PATIENT HAD A LUMBAR FACET BLOCK THERAPEUTIC AND SHE STATES THAT IT HELPED WITH HER BACK PAIN BUT NOT HER LEG PAIN. THE PATIENT HAD A CEREBROVASCULAR EVENT RECENTLY. THERE ARE MULTIPLE STUDIES THAT WERE DONE AND THE PATIENT FEELS THAT SHE HAD A MINI STROKE. HER MEDICATIONS ARE THE SAME BUT THEY ADDED A BABY ASPIRIN. PATIENT DENIES UNEXPLAINABLE WEIGHT LOSS, FEVER, CHILLS, NEW CHANGES ON HER URINARY OR BOWEL CONTROL. GENERAL: -. FALL RISK SCREENING: SCREENING :NO FALLS REPORTED IN THE LAST YEAR PAIN SCREENING: PATIENT HAS A COMPLAINT OF ACUTE OR CHRONIC PAIN :YES LOCATION OF PAIN:LOW BACK, LEFT HIP, RIGHT HIP, LEG(S) INTENSITY OF PAIN (SCALE OF 1 TO 10):7 WHAT DOES YOUR PAIN FEEL LIKE:ACHING, CONTINOUS, TENDER, THROBBING DURATION:CONTINOUS, ALL DAY PAIN IS INCREASED BY:OTHERS PROLONGED SITTING PAIN IS DECREASED BY:OTHERS LAYING DOWN ON SIDE NURSING NOTE: -. PAIN CENTER INTAKE QUESTIONS: DO YOU HAVE A HISTORY OF MRSA? :YES IN STOMACH, 2 MONTHS AGO, RESOLVED DO YOU TAKE A BLOOD THINNERS? :NO DO YOU HAVE ANY BLEEDING DISORDERS? :NO ANY NEW NUMBNESS OR WEAKNESS IN YOUR LEGS OR ARMS? :YES NUMBNESS AND WEAKNESS IN LEFT LEG ANY PACEMAKER,DEFIBRILLATOR, OR DORSAL COLUMN STIMULATOR? :NO DO YOU HAVE ANY RASHES OR OPEN SORES? :YES OPEN SORES ON BOTH LEGS, ULCER, OPEN AREAS, DRY DRESSING IN PLACE ARE YOU ALLERGIC TO IV DYE? :NO ARE YOU DIABETIC? :YES MANAGED WITH INSULIN ANY NEW PROBLEMS WITH YOUR MEDICATIONS? :NO HAVE YOU RECEIVED A VACCINE IN THE PAST 30 DAYS? :NO DO YOU PLAN TO RECEIVE A VACCINE IN THE NEXT 21 DAYS? :YES IF SO WHAT VACCINE AND WHEN? EXPECTING TO GET FLU SHOT IN NEXT FEW WEEKS DO YOU NEED ANY PRESCRIPTION? :NO DO YOU TAKE ANY IMMUNOSUPPRESSIVE MEDICATIONS? :NO IS THERE A CHANCE YOU COULD BE ? :NO ARE YOU BREAST FEEDING? :NO CURRENT MEDICATIONS TAKING WHEELCHAIR 1 MISCELLANEOUS DIRECTED M51.16 DAILY TAKING WHEELCHAIR _ MISCELLANEOUS DIRECTED D X: R27.0 DAILY, NOTES: COLE [phone] TAKING GLUCOMETER (VERIO IQ) 1 GLUCOMETER DIRECTED E11.8 FOUR TIMES DAILY TAKING BL LANCETS 1 1 LANCET E11.8 FOUR TIMES DAILY TAKING ONETOUCH VERIO 1 STRIP 1 STRIP E11.9 BID TAKING DEPEND PANT EXTRA LARGE DEPENDS MISCELLANEOUS SUPER ABSORBENT HIP - 155 CM; WAIST - 146 CM ICD:N39.490 EVERY 2-4 HOURS NEEDED MDD: 5 BRIEFS TAKING LEVOTHYROXINE SODIUM 50 MCG TABLET 1 CAPSULE ORALLY ONCE A DAY TAKING MAGNESIUM 400 MG CAPSULE 1 TABLET WITH A MEAL ORALLY TWICE A DAY TAKING SPIRONOLACTONE 50 MG TABLET 1 TAB ORALLY BID TAKING METOPROLOL TARTRATE 25 MG TABLET 1 TABLET WITH FOOD ORALLY TWICE A DAY TAKING SPIRIVA HANDIHALER 18 MCG CAPSULE 1 CAPSULE INHALATION ONCE A DAY TAKING INSULIN PEN NEEDLE 31G X 6 MM MISCELLANEOUS DIRECTED SQ DAILY BEFORE BEDTIME DX:E11.8 TAKING ONETOUCH VERIO - STRIP DIRECTED SUBCUTANEOUSLY AC BID TAKING TORSEMIDE 10 MG TABLET 1 TABLET ORALLY BID TAKING GABAPENTIN 600 MG TABLET 1 TABLET ORALLY BID TAKING DULOXETINE HCL 30 MG CAPSULE DELAYED RELEASE PARTICLES 1 CAPSULE ORALLY BID TAKING ROLLER WALKER 1 MISCELLANEOUS DIRECTED M47.816 DAILY TAKING COMPRESSION STOCKINGS 20-30 MMHG DIRECTED L03.116 DAILY TAKING LACTULOSE 20 GM/30ML SOLUTION 15 ML ORALLY TID TAKING LANTUS 100 UNIT/ML SOLUTION 60 IN THE AM AND 55 IN THE EVENING SUBCUTANEOUS TAKING OMEPRAZOLE 40 MG CAPSULE DELAYED RELEASE 1 CAPSULE 30 MINUTES BEFORE MORNING MEAL ORALLY ONCE A DAY TAKING POTASSIUM CHLORIDE JYOTSNA ER 10 MEQ TABLET EXTENDED RELEASE 1 TABLET WITH FOOD ORALLY THREE TIMES DAILY TAKING RIFAXIMIN 550 MG TABLET 1 TABLET ORALLY TWICE A DAY TAKING ACETAMINOPHEN 325 MG TABLET 2 TABLETS NEEDED ORALLY EVERY 4 HRS TAKING BENADRYL ALLERGY 25 MG CAPSULE 1 CAPSULE AT BEDTIME NEEDED ORALLY EVERY 6 HOURS PRN TAKING ONDANSETRON HCL 4 MG TABLET 1 TABLET ORALLY Q 6 HOURS PRN, NOTES: PRN TAKING MILK OF MAGNESIA 2400 MG/30ML SUSPENSION 10 ML NEEDED ORALLY DAILY, NOTES: PRN TAKING BIOFREEZE EVERY 6 HOURS NEEDED, NOTES: PRN TAKING BACTRIM DS 800-160 MG TABLET 1 TABLET ORALLY TWICE A DAY TAKING ALBUTEROL SULFATE (2.5 MG/3ML) 0.083% NEBULIZATION SOLUTION 3 ML NEEDED INHALATION EVERY 2 HRS TAKING ENEMA DISPOSABLE - ENEMA DIRECTED RECTAL TAKING GUAIASORB DM 10-100 MG/5ML LIQUID 10 ML NEEDED ORALLY EVERY 4 HRS TAKING COUGH DROPS MENTHOL - LOZENGE DIRECTED MOUTH/THROAT NEEDED EVERY HOUR TAKING BUTRANS 15 MCG/HR PATCH WEEKLY 1 PATCH TO SKIN TRANSDERMAL WEEKLY, REMOVE OLD PATCH TAKING OXYCODONE HCL 15 MG TABLET 1 TABLET NEEDED ORALLY EVERY 4 HRS FOR PAIN MDD=6 NOT-TAKING COLACE 100 MG CAPSULE 1 CAPSULE NEEDED ORALLY ONCE A DAY, NOTES: 02/04/2020 0800 NOT-TAKING BUTRANS 10 MCG/HR PATCH WEEKLY 1 PATCH TO SKIN TRANSDERMAL CHANGE PATCH EVERY 7 DAYS NOT-TAKING FAMOTIDINE 20 MG TABLET 1 TABLET AT BEDTIME ORALLY ONCE A DAY NOT-TAKING FERROUS SULFATE 325 (65 FE) MG TABLET 1 TABLET ORALLY ONCE A DAY NOT-TAKING XIFAXAN 550 MG TABLET 1 TABLET ORALLY TWICE A DAY NOT-TAKING TOUJEO SOLOSTAR 300 UNIT/ML SOLUTION PEN-INJECTOR DIRECTED SUBCUTANEOUS 80 UNITS IN AM 70 UNITS AT HS NOT-TAKING FISH OIL 1000 MG CAPSULE 1 CAPSULE ORALLY ONCE A DAY, NOTES: OTC NOT-TAKING KRISTALOSE 10 GM PACKET 1 PACKET ORALLY ONCE A DAY NOT-TAKING LIDODERM 5 % PATCH 1 PATCH REMOVE AFTER 12 HOURS EXTERNALLY ONCE A DAY NOT-TAKING TIZANIDINE HCL 4 MG TABLET 1 TABLET NEEDED ORALLY FOUR TIMES DAILY NOT-TAKING DIFLUCAN 100 MG TABLET 1 TABLET ORALLY BID NOT-TAKING HYDROXYZINE HCL 25 MG TABLET 1 TABLET NEEDED ORALLY EVERY 8 HRS NOT-TAKING NYSTATIN [id number] UNIT/GM CREAM 1 APPLICATION EXTERNALLY TWICE A DAY NOT-TAKING TRAMADOL HCL 50 MG TABLET 1 TABLET NEEDED ORALLY TID PRN PAIN NOT-TAKING KEFLEX 500 MG CAPSULE 1 CAPSULE ORALLY EVERY 12 HRS NOT-TAKING METOLAZONE 5 MG TABLET 1 TABLET ORALLY ONCE A DAY MEDICATION LIST REVIEWED AND RECONCILED WITH THE PATIENT PAST MEDICAL HISTORY OBESITY, MORBID CERVICAL/THORACIC/LUMBAR DJD-L2-S1 DIFFUSE BULGES-AT L5/S1 ABUTTING TS, B S1 PERIPHERAL EDEMA-01/2011 [id number] 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 BARAHONA, [facility] [place] OBSTRUCTIVE SLEEP APNEA HYPERLIPIDEMIA 2B COPD-07/2011 FEV1 1.9L (71%)/RATIO 92% T2DM ID GERD/HIATAL HERNIA-SEEN BY APRIL 2011 UPPER GI WITH SMALL BOWEL FOLLOW-THROUGH SCHIZOAFFECTIVE DISORDER-SPELLED BY DR. OSBORNE NONALCOHOLIC FATTY LIVER DISEASE-SEEN BY MARCH 2011 CT-NORMAL WORKUP 2010--CHRONIC HEPATITIS GRADE 2/4 WITH GRADE 4/4 CIRRHOSIS BY LIVER BIOPSY JULY 2011 VASOMOTOR SYMPTOMS VITAMIN D DEFICIENCY ALLERGIC RHINITIS RECURRENT CANDIDAL DERMATITIS ANTERIOR ABDOMEN LEUKOPENIA, CHRONIC CHRONIC ANTERIOR ABDOMINAL WALL PANNICULITIS PORTAL VENOUS HYPERTENSION SEEN BY MARCH 2011 CT CKD III-12/2013 NORMAL B RENAL US CHF 2 DIASTOLIC DYSFUNCTION-01/2017 TTE-GUADALUPE C GRADE 1 DIASTOLIC DYSFUNCTION, VERY MILD MR/TR B SHOULDER IMPIGNMENT SYNDROME-09/2015 L SHOULDER XRAY C MILD AC ARTHRITIS//S/P R PROXIMAL HUMERUS FRACTURE S/P MECHANICAL [id number] PER HEBERT RECURRENT HEPATIC ENCEPHALOPATHY-01/2017 MRI BRAIN MILD /VOLUME LOSS ASTHMA CELLULITIS HYPOTHYROIDISM MRSA (PER PT REPORT) ABDOMEN 06/16/2020 CHEST PAIN, HEAVINESS, SOB, ADMITTED TO [facility], DX TIA ALLERGIES CIPRO: CONFUSION - SIDE EFFECTS DOXYCYCLINE HYCLATE: ITCHY - ALLERGY MOTRIN: HIVES - ALLERGY SURGICAL HISTORY LINCOLN/BSO FOR NONCANCEROUS REASON-MAGDALENE 2002 EGD/[id number] GASTRITIS/PANDIVERTICULOSIS/LARGE HIATAL HERNIA/NEGATIVE SMALL BOWEL BIOPSY NOVEMBER 2009 NEGATIVE LUMBAR PUNCTURE FOR MS-LUDMILA JANUARY 2008 EGD-HIATAL HERNIA, NO EVIDENCE OF MASS AMPULLA OF VATER-ROHAN MARCH 2011 HARD PALATE EXCISIONAL BIOPSY-ULCERATED HEMANGIOMA-OPAL MARCH 2011 RIGHT HIP REPAIR AND FEMUR REPAIR BLOOD PRESSURE MARCH 2019 FAMILY HISTORY FATHER: 70 YRS, DIAGNOSED WITH OTHER SPECIFIED CONDITIONS INFLUENCING HEALTH STATUS MOTHER: 60 YRS, OTHER SPECIFIED CONDITIONS INFLUENCING HEALTH STATUS SIBLINGS: ALIVE, HYPERTENSION, UNSPECIFIED HEART DISEASE, DIABETES, UNSPECIFIED NONPSYCHOTIC MENTAL DISORDER FOLLOWING ORGANIC BRAIN DAMAGE DAUGHTER(S): ALIVE 2 BROTHER(S) , 4 SISTER(S) . 3DAUGHTER(S) - HEALTHY. MOTHER- EMPHASEMAFATHER-COPD BROTHER - OPEN HEART SURGERY. SOCIAL HISTORY GENERAL: TOBACCO USE ARE YOU A:NONSMOKER LATEX QUESTIONNAIRE LATEX ALLERGY : HAVE YOU EVER DEVELOPED ANY TYPE OF REACTION AFTER HANDLING LATEX PRODUCTS SUCH RUBBER GLOVES, CONDOMS, DIAPHRAGMS, BALLOONS, SOCKS, OR UNDERWEAR?NO ALLERGY TO SOME TAP - ONLY USES PAPER TAPE LATEX ALLERGY : HAVE YOU EVER DEVELOPED ANY TYPE OF REACTION DURING OR AFTER DENTAL APPOINTMENT, VAGINAL/RECTAL EXAMINATION, SURGICAL PROCEDURE, OR ANY OTHER EXPOSURE?NO LATEX RISK : HAVE YOU EVER HAD ANY DIFFICULTY BREATHING OR HIVES AFTER EATING OR HANDLING ANY FRUITS, OR VEGETABLES; SUCH KIWI, BANANAS, STONE FRUITS, OR CHESTNUTSNO LATEX RISK : DO YOU HAVE A PREVIOUS PERSONAL HISTORY OF MORE THAN NINE SURGERIES, SPINA BIFIDA, OR REPEATED CATHERIZATIONS? NO LATEX RISK : ARE YOU FREQUENTLY EXPOSED TO LATEX PRODUCTS IN YOUR OCCUPATION?NO DATE ASKED : 06/23/2020 BMI CARE GOAL FOLLOW-UP ABOVE NORMAL BMI FOLLOW-UPGIVING ENCOURAGEMENT TO EXERCISE ALCOHOL SCREENING DID YOU HAVE A DRINK CONTAINING ALCOHOL IN THE PAST YEAR?NO POINTS0 INTERPRETATIONNEGATIVE RECREATIONAL DRUG USE DRUG USE?NO CAFFEINE OCCASIONAL ONLY. SEXUAL HX HAD SEX IN THE LAST 12 MONTHS (VAGINAL, ORAL, OR ANAL)?NO HAVE YOU EVER HAD AN STD?NO BAPTIST [id number] MORMONISM LANGUAGE LANGUAGES SPOKEN:AZERI EDUCATION LEVEL OF EDUCATION:FINISHED HIGH SCHOOL LEARNING BARRIERS / SPECIAL NEEDS CHANGE FROM LAST VISIT?NO BARRIERS TO LEARNING?NO HEARING IMPAIRED?NO VISION IMPAIRED?YES COGNITIVELY IMPAIRED?NO :CORRECTIVE LENSES READINESS TO LEARN?YES LEARNING PREFERENCES?YES :DEMONSTRATION/VERBAL INSTRUCTION LEARNING CAPABILITIES PRESENT?YES EMOTIONAL BARRIERS?NO SPECIAL DEVICES?NO ENGINE ROOM HELPER NEEDED?NO DOMESTIC VIOLENCE DO YOU FEEL SAFE IN YOUR ENVIRONMENT?YES OCCUPATION: RETIRED. DIET: CARBOHYDRATE CONTROLLED. EXERCISE: NO REGULAR EXERCISE. MARITAL STATUS: SINGLE. OTHERS AT HOME: NONE. DAUGHTER LIVES NEAR BY.. PAIN CLINIC PFS, CLERGY, PUBLIC HEALTH REFERRALS HAS THE PATIENT BEEN EDUCATED REGARDING HIS/HER PLAN OF CARE?YES HAS THE PATIENT BEEN EDUCATED REGARDING PAIN, THE RISK FOR PAIN, THE IMPORTANCE OF EFFECTIVE PAIN MANAGEMENT, AND THE PAIN ASSESSMENT PROCESS?YES HOUSING: [facility] KEEP HOME. ADVANCE DIRECTIVE ADVANCE DIRECTIVE DISCUSSED WITH PATIENT:YES PT STATES THAT SHE DOES NOT HAVE HCP AT THIS TIME, DECLINES ASSISTANCE WITH PAPERWORK. DS HOSPITALIZATION/MAJOR DIAGNOSTIC PROCEDURE RECURRENT NAUSEA/VOMITING-NEGATIVE BLOOD CULTURE X2/NEGATIVE URINE CULTURE APRIL 05-2010 MS CHANGE 2 MEDICATIONS/HEPATIC ENCEPHALOPATHY-PEAK [id number]-[id number] AMBIEN, VICODIN, ZANAFLEX/NEGATIVE UCX/BCX X2 01/29-02/06/2012 MS CHANGE 2 HEPATIC ENCEPHALOPATY-HEAD CT C MILD ATROPHY 02/2012 MS CHANGE 2 HEPATIC ENCEPHALOPATHY, INCREASED PERIPHERAL EDEMA 04/2012 MS CHANGE ? 2 HEPATIC ENCEPHALOPATHY VS 2 SCHIZOAFFECTIVE DISORDER-ADMISSION NH3 32, NEGATIVE HEAD CT, B12 LEVEL, SX RESOLVED IN HOURS 05/2012 SYMPTOMATIC HYPONATRIEMIA/HYPOKALEMIA (116, 2.9 ON ADMISSION) 2 ESLD/ASCITES C OVERDIURESIS-LASIX 40 BID AND SPIROLACTONE 50 BID HELD 12/30- LLE CELLULITIS-ONSET DAY OF ADMISSION-RXED C ZOSYN 7D THEN CEFTAROLINE 5D-04/25/1409/24 BCX K PNEUMONIA, 04/28/14 UCX NGCS, 05/04, , -BCX X 1 EACH DAY -, CXR C MILD B PVC, 04/25/2014 - LLE EVT US 04/25- LLE CELLULITIS WITH S. SIMULANS AND C- STAPH BCX 09/24, P. AERUGENOSA BY BCX 09/24 RXED C LEVAQUIN 10D, UCX NG, CT CHEST S/ C - 06/22-06/30/14 INCREASED BLE EDEMA =/- BLE CELLULITIS, ASX UCX C E. COLI ESBL (AFEBRILE, PRESENTING WBC 4.2) RXED C ZOSYN 3D THEN BACTRIM 2D, - BCX X 2, - CXR, - B TIB/FIB XRAY 09/03- LLE CELLULITIS/SIRS- -BCX X 2, -LLE DVT US, RXED C CEFAROLINE BUT D/MOUSTAPHA ON KEFLEX 500 BID, UCX NG, - MRSA SCREEN, ADMISSION WBC 14.3, CRP 7.9 11/14- LLE CELLULITIS-- BCX X 2, SCX C FEW COAG NEG STAPH, RX C CEFTAROLINE IV, D/MOUSTAPHA ON DOXY PO 03/10- LLE CELLULITIS/SIRS-RX C CEFTAROLINE-(ADMISSION WBC 17.9, D/C 5.8, NO CRP/ESR DONE, BCX - X 2) 04/23-03/07 LLE CELLULITIS/SIRS-BETH CHANGED CEFTAROLINE TO KEFLEX 500 QID AND RECOMMENDED 500 QD SUPPRESSION FAVORING RECURRENT MSSA, - NASAL SWAB MRSA SCREEN AND CULTURE, - BCX X2, -MRI L FOOT/THIGH, -LLE DVT US 06/15-06/23/15 ACUTE HYPOXIC RESPIRATORY FAILURE 2 ARDS FROM ASPIRATION PN/CARDIOGENIC SHOCK-ON MECHANICAL VENTILATION X 1W, RUE NONOCCLUSIVE CEPHALIC DVT-NOT TREATED/THEN TO [facility] UNTIL 07/05/1604/04-04/26/16 BROKEN SHOULDER- ALC FOR 2 WEEK 10/15-10/17/16 HEPATIC ENCEPHALOPATHY 01/02/17-01/04/17 HEPATIC ENCEPHALOPATHY, DECOMPENSATED CHF, UTI, - BLE DVT US 04/18-04/30/17 REVIEW OF SYSTEMS CONSTITUTIONAL: ANY RECENT FEVER NO . CHILLS NO . WEIGHT CHANGE OF UNKNOWN REASONS NO . GASTROENTEROLOGY: NEW UNEXPLAINABLE CHANGES IN BOWEL CONTROL NO . CONSTIPATION NO . GENITOURINARY: ANY NEW CHANGE IN BLADDER CONTROL? NO . NEUROLOGY: NEW ONSET DIZZINESS OR NEUROLOGICAL CHANGES NOT MENTIONED NO . NEW NUMBNESS OR PAIN PATTERNS NOT MENTIONED AND PERTINENT TO TODAY'S VISIT NO . CARDIOLOGY: NEW CHEST PRESSURE NO . NEW CHEST PAIN NO . RESPIRATORY: UNEXPLAINABLE COUGH NO . NEW SHORTNESS OF BREATH NO . HISTORY OF MRSA, SOME ULCERS OF THE LOWER EXTREMITIES, HISTORY OF CEREBROVASCULAR EVENT. VITAL SIGNS WT 268 LBS, HT 78 IN, BMI 30.97 INDEX, BP 136/70 MM HG, HR 65 /MIN, RR 18 /MIN, TEMP 97.6 F, OXYGEN SAT % 96%, NA INITIALS AW 1507, REVIEWED BY: DS. EXAMINATION GENERAL EXAMINATION: THE PATIENT IS ALERT, ORIENTED TIMES THREE AND COOPERATIVE. HEART SHOWS REGULAR RHYTHM, NO MURMURS AND NO GALLOPS. LUNGS ARE CLEAR TO AUSCULTATION. THE PATIENT IS SITTING IN A WHEEL CHAIR. SHE IS LIMPING FROM HER LEFT LEG. THE LEFT LEG IS WEAKER THAN THE RIGHT LEG ON FLEXION AND EXTENSION. STRAIGHT LEG RAISE IS POSITIVE ON THE LEFT AT [address] OF THE LUMBAR SPINE DATED 03/15/2020 SHOWS SOME BULGING DISC, SEVERE CANAL STENOSIS AND A 7.6 MM RETROPULSION AT L5. THE PATIENT HAD SEVERAL STUDIES PERFORMED AFTER A CEREBROVASCULAR EVENT INCLUDING BRAIN STUDIES AND A CT OF THE ABDOMEN. ASSESSMENTS INTERVERTEBRAL DISC DISORDERS WITH RADICULOPATHY, LUMBAR REGION - M51.16 (PRIMARY) TREATMENT INTERVERTEBRAL DISC DISORDERS WITH RADICULOPATHY, LUMBAR REGION CLINICAL NOTES: WE DISCUSSED SEVERAL ALTERNATIVES WITH MS. FARFAN REGARDING HER TREATMENT OPTIONS AND CARE. I HAD A CONVERSION WITH DR. BOWMAN ABOUT THE CT SCAN OF THE LUMBAR SPINE DONE IN FEBRUARY 2020 WHICH SHOWS A FRACTURE AND ALSO THERE IS A VACUUM PHENOMENON AT L4-L5. THERE IS ALSO A MENTION OF DISCITIS. I WOULD LIKE TO GET AN MRI OF THE LUMBAR SPINE WITH AND WITHOUT CONTRAST. THE ISSUE WITH THE CONTRAST IS HER RENAL FUNCTION SO I WILL TALK WITH HER PRIMARY CARE PHYSICIAN. IF SHE CANNOT HAVE AN MRI WITH CONTRAST, THEN WE CAN DO AN MRI WITHOUT CONTRAST AND A NEW CT AND THEN WE CAN COMPARE THE NEW CT AND THE CT FROM FEBRUARY. IF WE DO THE STUDY AND WE ARE ABLE TO DO AN EPIDURAL, THEN I WOULD LIKE TO DO AN EPIDURAL AT L4-L5 WHERE THE SEVERE STENOSIS IS. AN ALTERNATIVE IS AT L5-S1 WITH A CATHETER UP TO L4-L5. I WILL RETURN HER BACK TO [facility] AND I WILL REACH OUT TO HER PRIMARY. WE WILL DO AN EPIDURAL IF THERE IS NO DISCITIS FOUND. THE PATIENT UNDERSTANDS AND IS IN AGREEMENT WITH THE TREATMENT PLAN. I, SYDNEY FAIRBANKS, DOCUMENTED THE ABOVE INFORMATION ACTING A SCRIBE FOR DR. HERNANDEZ. I HAVE REVIEWED THE ABOVE DOCUMENT, WRITTEN BY SYDNEY FAIRBANKS, HRBP, AND I VERIFY THAT IT IS ACCURATE. PROCEDURE CODES FA211 ESTABILISHED PATIENT [facility] FACILITY CHARGE [id number] OFFICE/OUTPATIENT VISIT EST DISPOSITION & COMMUNICATION FOLLOW UP FOLLOW WITH DR. Mc IN 1 MONTH (REASON: FUP ABOUT MRI) ELECTRONICALLY SIGNED BY CAMACHO HERNANDEZ MD, MD ON 06/29/2020 AT 11:41 AM EDT DISCLAIMER : THIS IS A VISIT SUMMARY EXTRACTED FROM THE [employer] CHART. IT IS NOT A COPY OF THE [employer] PROGRESS NOTE. MTDD
--- NOTE | 2020-06-29 11:44 | ECWPNPC ---
PATIENT NAME: HODAN FARFAN : 1955 GENDER: FEMALE VISIT DATE: 06/23/2020 DISCHARGE DATE: 06/23/20 164 VISIT LOCKED DATE TIME: PHYSICIAN: CAMACHO HERNANDEZ MD PHYSICIAN PAGER NO: INACTIVE RESOURCE: CAMACHO HERNANDEZ MD REASON FOR APPOINTMENT 1. POST BILATERAL LUMBAR FACET BLK HISTORY OF PRESENT ILLNESS DEPRESSION SCREENING: PHQ-2 (2015 EDITION) LITTLE INTEREST OR PLEASURE IN DOING THINGS?NOT AT ALL FEELING DOWN, DEPRESSED, OR HOPELESS?NOT AT ALL TOTAL SCORE0 64-YEAR-OLD FEMALE PATIENT WITH A HISTORY OF CHRONIC LOW BACK AND LEG PAIN. THE PATIENT DESCRIBES THE PAIN ACHING, TENDER, THROBBING AND CONTINUOUS WITH A PAIN SCORE RANGING FROM 6-9/10 DEPENDING ON PHYSICAL ACTIVITY IN THE BACK AND MAINLY TOWARDS THE LEFT LEG. THE PATIENT HAD A LUMBAR FACET BLOCK THERAPEUTIC AND SHE STATES THAT IT HELPED WITH HER BACK PAIN BUT NOT HER LEG PAIN. THE PATIENT HAD A CEREBROVASCULAR EVENT RECENTLY. THERE ARE MULTIPLE STUDIES THAT WERE DONE AND THE PATIENT FEELS THAT SHE HAD A MINI STROKE. HER MEDICATIONS ARE THE SAME BUT THEY ADDED A BABY ASPIRIN. PATIENT DENIES UNEXPLAINABLE WEIGHT LOSS, FEVER, CHILLS, NEW CHANGES ON HER URINARY OR BOWEL CONTROL. GENERAL: -. FALL RISK SCREENING: SCREENING :NO FALLS REPORTED IN THE LAST YEAR PAIN SCREENING: PATIENT HAS A COMPLAINT OF ACUTE OR CHRONIC PAIN :YES LOCATION OF PAIN:LOW BACK, LEFT HIP, RIGHT HIP, LEG(S) INTENSITY OF PAIN (SCALE OF 1 TO 10):7 WHAT DOES YOUR PAIN FEEL LIKE:ACHING, CONTINOUS, TENDER, THROBBING DURATION:CONTINOUS, ALL DAY PAIN IS INCREASED BY:OTHERS PROLONGED SITTING PAIN IS DECREASED BY:OTHERS LAYING DOWN ON SIDE NURSING NOTE: -. PAIN CENTER INTAKE QUESTIONS: DO YOU HAVE A HISTORY OF MRSA? :YES IN STOMACH, 2 MONTHS AGO, RESOLVED DO YOU TAKE A BLOOD THINNERS? :NO DO YOU HAVE ANY BLEEDING DISORDERS? :NO ANY NEW NUMBNESS OR WEAKNESS IN YOUR LEGS OR ARMS? :YES NUMBNESS AND WEAKNESS IN LEFT LEG ANY PACEMAKER,DEFIBRILLATOR, OR DORSAL COLUMN STIMULATOR? :NO DO YOU HAVE ANY RASHES OR OPEN SORES? :YES OPEN SORES ON BOTH LEGS, ULCER, OPEN AREAS, DRY DRESSING IN PLACE ARE YOU ALLERGIC TO IV DYE? :NO ARE YOU DIABETIC? :YES MANAGED WITH INSULIN ANY NEW PROBLEMS WITH YOUR MEDICATIONS? :NO HAVE YOU RECEIVED A VACCINE IN THE PAST 30 DAYS? :NO DO YOU PLAN TO RECEIVE A VACCINE IN THE NEXT 21 DAYS? :YES IF SO WHAT VACCINE AND WHEN? EXPECTING TO GET FLU SHOT IN NEXT FEW WEEKS DO YOU NEED ANY PRESCRIPTION? :NO DO YOU TAKE ANY IMMUNOSUPPRESSIVE MEDICATIONS? :NO IS THERE A CHANCE YOU COULD BE ? :NO ARE YOU BREAST FEEDING? :NO CURRENT MEDICATIONS TAKING WHEELCHAIR 1 MISCELLANEOUS DIRECTED M51.16 DAILY TAKING WHEELCHAIR _ MISCELLANEOUS DIRECTED D X: R27.0 DAILY, NOTES: COLE [phone] TAKING GLUCOMETER (VERIO IQ) 1 GLUCOMETER DIRECTED E11.8 FOUR TIMES DAILY TAKING BL LANCETS 1 1 LANCET E11.8 FOUR TIMES DAILY TAKING ONETOUCH VERIO 1 STRIP 1 STRIP E11.9 BID TAKING DEPEND PANT EXTRA LARGE DEPENDS MISCELLANEOUS SUPER ABSORBENT HIP - 155 CM; WAIST - 146 CM ICD:N39.490 EVERY 2-4 HOURS NEEDED MDD: 5 BRIEFS TAKING LEVOTHYROXINE SODIUM 50 MCG TABLET 1 CAPSULE ORALLY ONCE A DAY TAKING MAGNESIUM 400 MG CAPSULE 1 TABLET WITH A MEAL ORALLY TWICE A DAY TAKING SPIRONOLACTONE 50 MG TABLET 1 TAB ORALLY BID TAKING METOPROLOL TARTRATE 25 MG TABLET 1 TABLET WITH FOOD ORALLY TWICE A DAY TAKING SPIRIVA HANDIHALER 18 MCG CAPSULE 1 CAPSULE INHALATION ONCE A DAY TAKING INSULIN PEN NEEDLE 31G X 6 MM MISCELLANEOUS DIRECTED SQ DAILY BEFORE BEDTIME DX:E11.8 TAKING ONETOUCH VERIO - STRIP DIRECTED SUBCUTANEOUSLY AC BID TAKING TORSEMIDE 10 MG TABLET 1 TABLET ORALLY BID TAKING GABAPENTIN 600 MG TABLET 1 TABLET ORALLY BID TAKING DULOXETINE HCL 30 MG CAPSULE DELAYED RELEASE PARTICLES 1 CAPSULE ORALLY BID TAKING ROLLER WALKER 1 MISCELLANEOUS DIRECTED M47.816 DAILY TAKING COMPRESSION STOCKINGS 20-30 MMHG DIRECTED L03.116 DAILY TAKING LACTULOSE 20 GM/30ML SOLUTION 15 ML ORALLY TID TAKING LANTUS 100 UNIT/ML SOLUTION 60 IN THE AM AND 55 IN THE EVENING SUBCUTANEOUS TAKING OMEPRAZOLE 40 MG CAPSULE DELAYED RELEASE 1 CAPSULE 30 MINUTES BEFORE MORNING MEAL ORALLY ONCE A DAY TAKING POTASSIUM CHLORIDE JYOTSNA ER 10 MEQ TABLET EXTENDED RELEASE 1 TABLET WITH FOOD ORALLY THREE TIMES DAILY TAKING RIFAXIMIN 550 MG TABLET 1 TABLET ORALLY TWICE A DAY TAKING ACETAMINOPHEN 325 MG TABLET 2 TABLETS NEEDED ORALLY EVERY 4 HRS TAKING BENADRYL ALLERGY 25 MG CAPSULE 1 CAPSULE AT BEDTIME NEEDED ORALLY EVERY 6 HOURS PRN TAKING ONDANSETRON HCL 4 MG TABLET 1 TABLET ORALLY Q 6 HOURS PRN, NOTES: PRN TAKING MILK OF MAGNESIA 2400 MG/30ML SUSPENSION 10 ML NEEDED ORALLY DAILY, NOTES: PRN TAKING BIOFREEZE EVERY 6 HOURS NEEDED, NOTES: PRN TAKING BACTRIM DS 800-160 MG TABLET 1 TABLET ORALLY TWICE A DAY TAKING ALBUTEROL SULFATE (2.5 MG/3ML) 0.083% NEBULIZATION SOLUTION 3 ML NEEDED INHALATION EVERY 2 HRS TAKING ENEMA DISPOSABLE - ENEMA DIRECTED RECTAL TAKING GUAIASORB DM 10-100 MG/5ML LIQUID 10 ML NEEDED ORALLY EVERY 4 HRS TAKING COUGH DROPS MENTHOL - LOZENGE DIRECTED MOUTH/THROAT NEEDED EVERY HOUR TAKING BUTRANS 15 MCG/HR PATCH WEEKLY 1 PATCH TO SKIN TRANSDERMAL WEEKLY, REMOVE OLD PATCH TAKING OXYCODONE HCL 15 MG TABLET 1 TABLET NEEDED ORALLY EVERY 4 HRS FOR PAIN MDD=6 NOT-TAKING COLACE 100 MG CAPSULE 1 CAPSULE NEEDED ORALLY ONCE A DAY, NOTES: 02/04/2020 0800 NOT-TAKING BUTRANS 10 MCG/HR PATCH WEEKLY 1 PATCH TO SKIN TRANSDERMAL CHANGE PATCH EVERY 7 DAYS NOT-TAKING FAMOTIDINE 20 MG TABLET 1 TABLET AT BEDTIME ORALLY ONCE A DAY NOT-TAKING FERROUS SULFATE 325 (65 FE) MG TABLET 1 TABLET ORALLY ONCE A DAY NOT-TAKING XIFAXAN 550 MG TABLET 1 TABLET ORALLY TWICE A DAY NOT-TAKING TOUJEO SOLOSTAR 300 UNIT/ML SOLUTION PEN-INJECTOR DIRECTED SUBCUTANEOUS 80 UNITS IN AM 70 UNITS AT HS NOT-TAKING FISH OIL 1000 MG CAPSULE 1 CAPSULE ORALLY ONCE A DAY, NOTES: OTC NOT-TAKING KRISTALOSE 10 GM PACKET 1 PACKET ORALLY ONCE A DAY NOT-TAKING LIDODERM 5 % PATCH 1 PATCH REMOVE AFTER 12 HOURS EXTERNALLY ONCE A DAY NOT-TAKING TIZANIDINE HCL 4 MG TABLET 1 TABLET NEEDED ORALLY FOUR TIMES DAILY NOT-TAKING DIFLUCAN 100 MG TABLET 1 TABLET ORALLY BID NOT-TAKING HYDROXYZINE HCL 25 MG TABLET 1 TABLET NEEDED ORALLY EVERY 8 HRS NOT-TAKING NYSTATIN [id number] UNIT/GM CREAM 1 APPLICATION EXTERNALLY TWICE A DAY NOT-TAKING TRAMADOL HCL 50 MG TABLET 1 TABLET NEEDED ORALLY TID PRN PAIN NOT-TAKING KEFLEX 500 MG CAPSULE 1 CAPSULE ORALLY EVERY 12 HRS NOT-TAKING METOLAZONE 5 MG TABLET 1 TABLET ORALLY ONCE A DAY MEDICATION LIST REVIEWED AND RECONCILED WITH THE PATIENT PAST MEDICAL HISTORY OBESITY, MORBID CERVICAL/THORACIC/LUMBAR DJD-L2-S1 DIFFUSE BULGES-AT L5/S1 ABUTTING TS, B S1 PERIPHERAL EDEMA-01/2011 [id number] 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 BARAHONA, [facility], [place] OBSTRUCTIVE SLEEP APNEA HYPERLIPIDEMIA 2B COPD-07/2011 FEV1 1.9L (71%)/RATIO 92% T2DM ID GERD/HIATAL HERNIA-SEEN BY APRIL 2011 UPPER GI WITH SMALL BOWEL FOLLOW-THROUGH SCHIZOAFFECTIVE DISORDER-SPELLED BY DR. OSBORNE NONALCOHOLIC FATTY LIVER DISEASE-SEEN BY MARCH 2011 CT-NORMAL WORKUP 2010--CHRONIC HEPATITIS GRADE 2/4 WITH GRADE 4/4 CIRRHOSIS BY LIVER BIOPSY JULY 2011 VASOMOTOR SYMPTOMS VITAMIN D DEFICIENCY ALLERGIC RHINITIS RECURRENT CANDIDAL DERMATITIS ANTERIOR ABDOMEN LEUKOPENIA, CHRONIC CHRONIC ANTERIOR ABDOMINAL WALL PANNICULITIS PORTAL VENOUS HYPERTENSION SEEN BY MARCH 2011 CT CKD III-12/2013 NORMAL B RENAL US CHF 2 DIASTOLIC DYSFUNCTION-01/2017 TTE-GUADALUPE C GRADE 1 DIASTOLIC DYSFUNCTION, VERY MILD MR/TR B SHOULDER IMPIGNMENT SYNDROME-09/2015 L SHOULDER XRAY C MILD AC ARTHRITIS//S/P R PROXIMAL HUMERUS FRACTURE S/P MECHANICAL [id number] PER HEBERT RECURRENT HEPATIC ENCEPHALOPATHY-01/2017 MRI BRAIN MILD /VOLUME LOSS ASTHMA CELLULITIS HYPOTHYROIDISM MRSA (PER PT REPORT) ABDOMEN 06/16/2020 CHEST PAIN, HEAVINESS, SOB, ADMITTED TO [facility], DX TIA ALLERGIES CIPRO: CONFUSION - SIDE EFFECTS DOXYCYCLINE HYCLATE: ITCHY - ALLERGY MOTRIN: HIVES - ALLERGY SURGICAL HISTORY LINCOLN/BSO FOR NONCANCEROUS REASON-MAGDALENE 2002 EGD/[id number]-HXOD GASTRITIS/PANDIVERTICULOSIS/LARGE HIATAL HERNIA/NEGATIVE SMALL BOWEL BIOPSY NOVEMBER 2009 NEGATIVE LUMBAR PUNCTURE FOR MS-LUDMILA JANUARY 2008 EGD-HIATAL HERNIA, NO EVIDENCE OF MASS AMPULLA OF VATER-ROHAN MARCH 2011 HARD PALATE EXCISIONAL BIOPSY-ULCERATED HEMANGIOMA-OPAL MARCH 2011 RIGHT HIP REPAIR AND FEMUR REPAIR BLOOD PRESSURE MARCH 2019 FAMILY HISTORY FATHER: 70 YRS, DIAGNOSED WITH OTHER SPECIFIED CONDITIONS INFLUENCING HEALTH STATUS MOTHER: 60 YRS, OTHER SPECIFIED CONDITIONS INFLUENCING HEALTH STATUS SIBLINGS: ALIVE, HYPERTENSION, UNSPECIFIED HEART DISEASE, DIABETES, UNSPECIFIED NONPSYCHOTIC MENTAL DISORDER FOLLOWING ORGANIC BRAIN DAMAGE DAUGHTER(S): ALIVE 2 BROTHER(S) , 4 SISTER(S) . 3DAUGHTER(S) - HEALTHY. MOTHER- EMPHASEMAFATHER-COPD BROTHER - OPEN HEART SURGERY. SOCIAL HISTORY GENERAL: TOBACCO USE ARE YOU A:NONSMOKER LATEX QUESTIONNAIRE LATEX ALLERGY : HAVE YOU EVER DEVELOPED ANY TYPE OF REACTION AFTER HANDLING LATEX PRODUCTS SUCH RUBBER GLOVES, CONDOMS, DIAPHRAGMS, BALLOONS, SOCKS, OR UNDERWEAR?NO ALLERGY TO SOME TAP - ONLY USES PAPER TAPE LATEX ALLERGY : HAVE YOU EVER DEVELOPED ANY TYPE OF REACTION DURING OR AFTER DENTAL APPOINTMENT, VAGINAL/RECTAL EXAMINATION, SURGICAL PROCEDURE, OR ANY OTHER EXPOSURE?NO LATEX RISK : HAVE YOU EVER HAD ANY DIFFICULTY BREATHING OR HIVES AFTER EATING OR HANDLING ANY FRUITS, OR VEGETABLES; SUCH KIWI, BANANAS, STONE FRUITS, OR CHESTNUTSNO LATEX RISK : DO YOU HAVE A PREVIOUS PERSONAL HISTORY OF MORE THAN NINE SURGERIES, SPINA BIFIDA, OR REPEATED CATHERIZATIONS? NO LATEX RISK : ARE YOU FREQUENTLY EXPOSED TO LATEX PRODUCTS IN YOUR OCCUPATION?NO DATE ASKED : 06/23/2020 BMI CARE GOAL FOLLOW-UP ABOVE NORMAL BMI FOLLOW-UPGIVING ENCOURAGEMENT TO EXERCISE ALCOHOL SCREENING DID YOU HAVE A DRINK CONTAINING ALCOHOL IN THE PAST YEAR?NO POINTS0 INTERPRETATIONNEGATIVE RECREATIONAL DRUG USE DRUG USE?NO CAFFEINE OCCASIONAL ONLY. SEXUAL HX HAD SEX IN THE LAST 12 MONTHS (VAGINAL, ORAL, OR ANAL)?NO HAVE YOU EVER HAD AN STD?NO CAODAISM [id number] YARSANISM LANGUAGE LANGUAGES SPOKEN:POLISH EDUCATION LEVEL OF EDUCATION:FINISHED HIGH SCHOOL LEARNING BARRIERS / SPECIAL NEEDS CHANGE FROM LAST VISIT?NO BARRIERS TO LEARNING?NO HEARING IMPAIRED?NO VISION IMPAIRED?YES COGNITIVELY IMPAIRED?NO :CORRECTIVE LENSES READINESS TO LEARN?YES LEARNING PREFERENCES?YES :DEMONSTRATION/VERBAL INSTRUCTION LEARNING CAPABILITIES PRESENT?YES EMOTIONAL BARRIERS?NO SPECIAL DEVICES?NO ELECTRICAL CAD TECHNICIAN NEEDED?NO DOMESTIC VIOLENCE DO YOU FEEL SAFE IN YOUR ENVIRONMENT?YES OCCUPATION: RETIRED. DIET: CARBOHYDRATE CONTROLLED. EXERCISE: NO REGULAR EXERCISE. MARITAL STATUS: SINGLE. OTHERS AT HOME: NONE. DAUGHTER LIVES NEAR BY.. PAIN CLINIC PFS, CLERGY, PUBLIC HEALTH REFERRALS HAS THE PATIENT BEEN EDUCATED REGARDING HIS/HER PLAN OF CARE?YES HAS THE PATIENT BEEN EDUCATED REGARDING PAIN, THE RISK FOR PAIN, THE IMPORTANCE OF EFFECTIVE PAIN MANAGEMENT, AND THE PAIN ASSESSMENT PROCESS?YES HOUSING: [facility] K[facility] HOME. ADVANCE DIRECTIVE ADVANCE DIRECTIVE DISCUSSED WITH PATIENT:YES PT STATES THAT SHE DOES NOT HAVE HCP AT THIS TIME, DECLINES ASSISTANCE WITH PAPERWORK. DS HOSPITALIZATION/MAJOR DIAGNOSTIC PROCEDURE RECURRENT NAUSEA/VOMITING-NEGATIVE BLOOD CULTURE X2/NEGATIVE URINE CULTURE APRIL 05-2010 MS CHANGE 2 MEDICATIONS/HEPATIC ENCEPHALOPATHY-PEAK [id number] AMBIEN, VICODIN, ZANAFLEX/NEGATIVE UCX/BCX X2 01/29-02/06/2012 MS CHANGE 2 HEPATIC ENCEPHALOPATY-HEAD CT C MILD ATROPHY 02/2012 MS CHANGE 2 HEPATIC ENCEPHALOPATHY, INCREASED PERIPHERAL EDEMA 04/2012 MS CHANGE ? 2 HEPATIC ENCEPHALOPATHY VS 2 SCHIZOAFFECTIVE DISORDER-ADMISSION NH3 32, NEGATIVE HEAD CT, B12 LEVEL, SX RESOLVED IN HOURS 05/2012 SYMPTOMATIC HYPONATRIEMIA/HYPOKALEMIA (116, 2.9 ON ADMISSION) 2 ESLD/ASCITES C OVERDIURESIS-LASIX 40 BID AND SPIROLACTONE 50 BID HELD 12/30- LLE CELLULITIS-ONSET DAY OF ADMISSION-RXED C ZOSYN 7D THEN CEFTAROLINE 5D-04/25/1409/24 BCX K PNEUMONIA, 04/28/14 UCX NGCS, 05/04, , -BCX X 1 EACH DAY -, CXR C MILD B PVC, 04/25/2014 - LLE EVT US 04/25- LLE CELLULITIS WITH S. SIMULANS AND C- STAPH BCX 09/24, P. AERUGENOSA BY BCX 09/24 RXED C LEVAQUIN 10D, UCX NG, CT CHEST S/ C - 06/22-06/30/14 INCREASED BLE EDEMA =/- BLE CELLULITIS, ASX UCX C E. COLI ESBL (AFEBRILE, PRESENTING WBC 4.2) RXED C ZOSYN 3D THEN BACTRIM 2D, - BCX X 2, - CXR, - B TIB/FIB XRAY 09/03- LLE CELLULITIS/SIRS- -BCX X 2, -LLE DVT US, RXED C CEFAROLINE BUT D/MOUSTAPHA ON KEFLEX 500 BID, UCX NG, - MRSA SCREEN, ADMISSION WBC 14.3, CRP 7.9 11/14- LLE CELLULITIS-- BCX X 2, SCX C FEW COAG NEG STAPH, RX C CEFTAROLINE IV, D/MOUSTAPHA ON DOXY PO 03/10- LLE CELLULITIS/SIRS-RX C CEFTAROLINE-(ADMISSION WBC 17.9, D/C 5.8, NO CRP/ESR DONE, BCX - X 2) 04/23-03/07 LLE CELLULITIS/SIRS-BETH CHANGED CEFTAROLINE TO KEFLEX 500 QID AND RECOMMENDED 500 QD SUPPRESSION FAVORING RECURRENT MSSA, - NASAL SWAB MRSA SCREEN AND CULTURE, - BCX X2, -MRI L FOOT/THIGH, -LLE DVT US 06/15-06/23/15 ACUTE HYPOXIC RESPIRATORY FAILURE 2 ARDS FROM ASPIRATION PN/CARDIOGENIC SHOCK-ON MECHANICAL VENTILATION X 1W, RUE NONOCCLUSIVE CEPHALIC DVT-NOT TREATED/THEN TO [facility] UNTIL 07/05/1604/04-04/26/16 BROKEN SHOULDER- ALC FOR 2 WEEK 10/15-10/17/16 HEPATIC ENCEPHALOPATHY 01/02/17-01/04/17 HEPATIC ENCEPHALOPATHY, DECOMPENSATED CHF, UTI, - BLE DVT US 04/18-04/30/17 REVIEW OF SYSTEMS CONSTITUTIONAL: ANY RECENT FEVER NO . CHILLS NO . WEIGHT CHANGE OF UNKNOWN REASONS NO . GASTROENTEROLOGY: NEW UNEXPLAINABLE CHANGES IN BOWEL CONTROL NO . CONSTIPATION NO . GENITOURINARY: ANY NEW CHANGE IN BLADDER CONTROL? NO . NEUROLOGY: NEW ONSET DIZZINESS OR NEUROLOGICAL CHANGES NOT MENTIONED NO . NEW NUMBNESS OR PAIN PATTERNS NOT MENTIONED AND PERTINENT TO TODAY'S VISIT NO . CARDIOLOGY: NEW CHEST PRESSURE NO . NEW CHEST PAIN NO . RESPIRATORY: UNEXPLAINABLE COUGH NO . NEW SHORTNESS OF BREATH NO . HISTORY OF MRSA, SOME ULCERS OF THE LOWER EXTREMITIES, HISTORY OF CEREBROVASCULAR EVENT. VITAL SIGNS WT 268 LBS, HT 78 IN, BMI 30.97 INDEX, BP 136/70 MM HG, HR 65 /MIN, RR 18 /MIN, TEMP 97.6 F, OXYGEN SAT % 96%, NA INITIALS AW 1507, REVIEWED BY: DS. EXAMINATION GENERAL EXAMINATION: THE PATIENT IS ALERT, ORIENTED TIMES THREE AND COOPERATIVE. HEART SHOWS REGULAR RHYTHM, NO MURMURS AND NO GALLOPS. LUNGS ARE CLEAR TO AUSCULTATION. THE PATIENT IS SITTING IN A WHEEL CHAIR. SHE IS LIMPING FROM HER LEFT LEG. THE LEFT LEG IS WEAKER THAN THE RIGHT LEG ON FLEXION AND EXTENSION. STRAIGHT LEG RAISE IS POSITIVE ON THE LEFT AT [address] OF THE LUMBAR SPINE DATED 03/15/2020 SHOWS SOME BULGING DISC, SEVERE CANAL STENOSIS AND A 7.6 MM RETROPULSION AT L5. THE PATIENT HAD SEVERAL STUDIES PERFORMED AFTER A CEREBROVASCULAR EVENT INCLUDING BRAIN STUDIES AND A CT OF THE ABDOMEN. ASSESSMENTS INTERVERTEBRAL DISC DISORDERS WITH RADICULOPATHY, LUMBAR REGION - M51.16 (PRIMARY) TREATMENT INTERVERTEBRAL DISC DISORDERS WITH RADICULOPATHY, LUMBAR REGION CLINICAL NOTES: WE DISCUSSED SEVERAL ALTERNATIVES WITH MS. FARFAN REGARDING HER TREATMENT OPTIONS AND CARE. I HAD A CONVERSION WITH DR. BOWMAN ABOUT THE CT SCAN OF THE LUMBAR SPINE DONE IN FEBRUARY 2020 WHICH SHOWS A FRACTURE AND ALSO THERE IS A VACUUM PHENOMENON AT L4-L5. THERE IS ALSO A MENTION OF DISCITIS. I WOULD LIKE TO GET AN MRI OF THE LUMBAR SPINE WITH AND WITHOUT CONTRAST. THE ISSUE WITH THE CONTRAST IS HER RENAL FUNCTION SO I WILL TALK WITH HER PRIMARY CARE PHYSICIAN. IF SHE CANNOT HAVE AN MRI WITH CONTRAST, THEN WE CAN DO AN MRI WITHOUT CONTRAST AND A NEW CT AND THEN WE CAN COMPARE THE NEW CT AND THE CT FROM FEBRUARY. IF WE DO THE STUDY AND WE ARE ABLE TO DO AN EPIDURAL, THEN I WOULD LIKE TO DO AN EPIDURAL AT L4-L5 WHERE THE SEVERE STENOSIS IS. AN ALTERNATIVE IS AT L5-S1 WITH A CATHETER UP TO L4-L5. I WILL RETURN HER BACK TO [facility] AND I WILL REACH OUT TO HER PRIMARY. WE WILL DO AN EPIDURAL IF THERE IS NO DISCITIS FOUND. THE PATIENT UNDERSTANDS AND IS IN AGREEMENT WITH THE TREATMENT PLAN. I, SYDNEY FAIRBANKS, DOCUMENTED THE ABOVE INFORMATION ACTING A SCRIBE FOR DR. HERNANDEZ. I HAVE REVIEWED THE ABOVE DOCUMENT, WRITTEN BY SYDNEY FAIRBANKS, DESK LIEUTENANT, AND I VERIFY THAT IT IS ACCURATE. PROCEDURE CODES FA211 ESTABILISHED PATIENT [facility] CHARGE [id number] OFFICE/OUTPATIENT VISIT EST DISPOSITION & COMMUNICATION FOLLOW UP FOLLOW WITH DR. Mc IN 1 MONTH (REASON: FUP ABOUT MRI) ELECTRONICALLY SIGNED BY CAMACHO HERNANDEZ MD, MD ON 06/29/2020 AT 11:41 AM EDT DISCLAIMER : THIS IS A VISIT SUMMARY EXTRACTED FROM THE [employer] CHART. IT IS NOT A COPY OF THE [employer] PROGRESS NOTE. MTDD
--- NOTE | 2020-06-29 11:46 | ECWPNPC ---
PATIENT NAME: HODAN FARFAN : 1955 GENDER: FEMALE VISIT DATE: 06/23/2020 DISCHARGE DATE: 06/23/20 164 VISIT LOCKED DATE TIME: PHYSICIAN: CAMACHO HERNANDEZ MD PHYSICIAN PAGER NO: INACTIVE RESOURCE: CAMACHO HERNANDEZ MD REASON FOR APPOINTMENT 1. POST BILATERAL LUMBAR FACET BLK HISTORY OF PRESENT ILLNESS DEPRESSION SCREENING: PHQ-2 (2015 EDITION) LITTLE INTEREST OR PLEASURE IN DOING THINGS?NOT AT ALL FEELING DOWN, DEPRESSED, OR HOPELESS?NOT AT ALL TOTAL SCORE0 64-YEAR-OLD FEMALE PATIENT WITH A HISTORY OF CHRONIC LOW BACK AND LEG PAIN. THE PATIENT DESCRIBES THE PAIN ACHING, TENDER, THROBBING AND CONTINUOUS WITH A PAIN SCORE RANGING FROM 6-9/10 DEPENDING ON PHYSICAL ACTIVITY IN THE BACK AND MAINLY TOWARDS THE LEFT LEG. THE PATIENT HAD A LUMBAR FACET BLOCK THERAPEUTIC AND SHE STATES THAT IT HELPED WITH HER BACK PAIN BUT NOT HER LEG PAIN. THE PATIENT HAD A CEREBROVASCULAR EVENT RECENTLY. THERE ARE MULTIPLE STUDIES THAT WERE DONE AND THE PATIENT FEELS THAT SHE HAD A MINI STROKE. HER MEDICATIONS ARE THE SAME BUT THEY ADDED A BABY ASPIRIN. PATIENT DENIES UNEXPLAINABLE WEIGHT LOSS, FEVER, CHILLS, NEW CHANGES ON HER URINARY OR BOWEL CONTROL. GENERAL: -. FALL RISK SCREENING: SCREENING :NO FALLS REPORTED IN THE LAST YEAR PAIN SCREENING: PATIENT HAS A COMPLAINT OF ACUTE OR CHRONIC PAIN :YES LOCATION OF PAIN:LOW BACK, LEFT HIP, RIGHT HIP, LEG(S) INTENSITY OF PAIN (SCALE OF 1 TO 10):7 WHAT DOES YOUR PAIN FEEL LIKE:ACHING, CONTINOUS, TENDER, THROBBING DURATION:CONTINOUS, ALL DAY PAIN IS INCREASED BY:OTHERS PROLONGED SITTING PAIN IS DECREASED BY:OTHERS LAYING DOWN ON SIDE NURSING NOTE: -. PAIN CENTER INTAKE QUESTIONS: DO YOU HAVE A HISTORY OF MRSA? :YES IN STOMACH, 2 MONTHS AGO, RESOLVED DO YOU TAKE A BLOOD THINNERS? :NO DO YOU HAVE ANY BLEEDING DISORDERS? :NO ANY NEW NUMBNESS OR WEAKNESS IN YOUR LEGS OR ARMS? :YES NUMBNESS AND WEAKNESS IN LEFT LEG ANY PACEMAKER,DEFIBRILLATOR, OR DORSAL COLUMN STIMULATOR? :NO DO YOU HAVE ANY RASHES OR OPEN SORES? :YES OPEN SORES ON BOTH LEGS, ULCER, OPEN AREAS, DRY DRESSING IN PLACE ARE YOU ALLERGIC TO IV DYE? :NO ARE YOU DIABETIC? :YES MANAGED WITH INSULIN ANY NEW PROBLEMS WITH YOUR MEDICATIONS? :NO HAVE YOU RECEIVED A VACCINE IN THE PAST 30 DAYS? :NO DO YOU PLAN TO RECEIVE A VACCINE IN THE NEXT 21 DAYS? :YES IF SO WHAT VACCINE AND WHEN? EXPECTING TO GET FLU SHOT IN NEXT FEW WEEKS DO YOU NEED ANY PRESCRIPTION? :NO DO YOU TAKE ANY IMMUNOSUPPRESSIVE MEDICATIONS? :NO IS THERE A CHANCE YOU COULD BE ? :NO ARE YOU BREAST FEEDING? :NO CURRENT MEDICATIONS TAKING WHEELCHAIR 1 MISCELLANEOUS DIRECTED M51.16 DAILY TAKING WHEELCHAIR _ MISCELLANEOUS DIRECTED D X: R27.0 DAILY, NOTES: COLE [phone] TAKING GLUCOMETER (VERIO IQ) 1 GLUCOMETER DIRECTED E11.8 FOUR TIMES DAILY TAKING BL LANCETS 1 1 LANCET E11.8 FOUR TIMES DAILY TAKING ONETOUCH VERIO 1 STRIP 1 STRIP E11.9 BID TAKING DEPEND PANT EXTRA LARGE DEPENDS MISCELLANEOUS SUPER ABSORBENT HIP - 155 CM; WAIST - 146 CM ICD:N39.490 EVERY 2-4 HOURS NEEDED MDD: 5 BRIEFS TAKING LEVOTHYROXINE SODIUM 50 MCG TABLET 1 CAPSULE ORALLY ONCE A DAY TAKING MAGNESIUM 400 MG CAPSULE 1 TABLET WITH A MEAL ORALLY TWICE A DAY TAKING SPIRONOLACTONE 50 MG TABLET 1 TAB ORALLY BID TAKING METOPROLOL TARTRATE 25 MG TABLET 1 TABLET WITH FOOD ORALLY TWICE A DAY TAKING SPIRIVA HANDIHALER 18 MCG CAPSULE 1 CAPSULE INHALATION ONCE A DAY TAKING INSULIN PEN NEEDLE 31G X 6 MM MISCELLANEOUS DIRECTED SQ DAILY BEFORE BEDTIME DX:E11.8 TAKING ONETOUCH VERIO - STRIP DIRECTED SUBCUTANEOUSLY AC BID TAKING TORSEMIDE 10 MG TABLET 1 TABLET ORALLY BID TAKING GABAPENTIN 600 MG TABLET 1 TABLET ORALLY BID TAKING DULOXETINE HCL 30 MG CAPSULE DELAYED RELEASE PARTICLES 1 CAPSULE ORALLY BID TAKING ROLLER WALKER 1 MISCELLANEOUS DIRECTED M47.816 DAILY TAKING COMPRESSION STOCKINGS 20-30 MMHG DIRECTED L03.116 DAILY TAKING LACTULOSE 20 GM/30ML SOLUTION 15 ML ORALLY TID TAKING LANTUS 100 UNIT/ML SOLUTION 60 IN THE AM AND 55 IN THE EVENING SUBCUTANEOUS TAKING OMEPRAZOLE 40 MG CAPSULE DELAYED RELEASE 1 CAPSULE 30 MINUTES BEFORE MORNING MEAL ORALLY ONCE A DAY TAKING POTASSIUM CHLORIDE JYOTSNA ER 10 MEQ TABLET EXTENDED RELEASE 1 TABLET WITH FOOD ORALLY THREE TIMES DAILY TAKING RIFAXIMIN 550 MG TABLET 1 TABLET ORALLY TWICE A DAY TAKING ACETAMINOPHEN 325 MG TABLET 2 TABLETS NEEDED ORALLY EVERY 4 HRS TAKING BENADRYL ALLERGY 25 MG CAPSULE 1 CAPSULE AT BEDTIME NEEDED ORALLY EVERY 6 HOURS PRN TAKING ONDANSETRON HCL 4 MG TABLET 1 TABLET ORALLY Q 6 HOURS PRN, NOTES: PRN TAKING MILK OF MAGNESIA 2400 MG/30ML SUSPENSION 10 ML NEEDED ORALLY DAILY, NOTES: PRN TAKING BIOFREEZE EVERY 6 HOURS NEEDED, NOTES: PRN TAKING BACTRIM DS 800-160 MG TABLET 1 TABLET ORALLY TWICE A DAY TAKING ALBUTEROL SULFATE (2.5 MG/3ML) 0.083% NEBULIZATION SOLUTION 3 ML NEEDED INHALATION EVERY 2 HRS TAKING ENEMA DISPOSABLE - ENEMA DIRECTED RECTAL TAKING GUAIASORB DM 10-100 MG/5ML LIQUID 10 ML NEEDED ORALLY EVERY 4 HRS TAKING COUGH DROPS MENTHOL - LOZENGE DIRECTED MOUTH/THROAT NEEDED EVERY HOUR TAKING BUTRANS 15 MCG/HR PATCH WEEKLY 1 PATCH TO SKIN TRANSDERMAL WEEKLY, REMOVE OLD PATCH TAKING OXYCODONE HCL 15 MG TABLET 1 TABLET NEEDED ORALLY EVERY 4 HRS FOR PAIN MDD=6 NOT-TAKING COLACE 100 MG CAPSULE 1 CAPSULE NEEDED ORALLY ONCE A DAY, NOTES: 02/04/2020 0800 NOT-TAKING BUTRANS 10 MCG/HR PATCH WEEKLY 1 PATCH TO SKIN TRANSDERMAL CHANGE PATCH EVERY 7 DAYS NOT-TAKING FAMOTIDINE 20 MG TABLET 1 TABLET AT BEDTIME ORALLY ONCE A DAY NOT-TAKING FERROUS SULFATE 325 (65 FE) MG TABLET 1 TABLET ORALLY ONCE A DAY NOT-TAKING XIFAXAN 550 MG TABLET 1 TABLET ORALLY TWICE A DAY NOT-TAKING TOUJEO SOLOSTAR 300 UNIT/ML SOLUTION PEN-INJECTOR DIRECTED SUBCUTANEOUS 80 UNITS IN AM 70 UNITS AT HS NOT-TAKING FISH OIL 1000 MG CAPSULE 1 CAPSULE ORALLY ONCE A DAY, NOTES: OTC NOT-TAKING KRISTALOSE 10 GM PACKET 1 PACKET ORALLY ONCE A DAY NOT-TAKING LIDODERM 5 % PATCH 1 PATCH REMOVE AFTER 12 HOURS EXTERNALLY ONCE A DAY NOT-TAKING TIZANIDINE HCL 4 MG TABLET 1 TABLET NEEDED ORALLY FOUR TIMES DAILY NOT-TAKING DIFLUCAN 100 MG TABLET 1 TABLET ORALLY BID NOT-TAKING HYDROXYZINE HCL 25 MG TABLET 1 TABLET NEEDED ORALLY EVERY 8 HRS NOT-TAKING NYSTATIN 205596 UNIT/GM CREAM 1 APPLICATION EXTERNALLY TWICE A DAY NOT-TAKING TRAMADOL HCL 50 MG TABLET 1 TABLET NEEDED ORALLY TID PRN PAIN NOT-TAKING KEFLEX 500 MG CAPSULE 1 CAPSULE ORALLY EVERY 12 HRS NOT-TAKING METOLAZONE 5 MG TABLET 1 TABLET ORALLY ONCE A DAY MEDICATION LIST REVIEWED AND RECONCILED WITH THE PATIENT PAST MEDICAL HISTORY OBESITY, MORBID CERVICAL/THORACIC/LUMBAR DJD-L2-S1 DIFFUSE BULGES-AT L5/S1 ABUTTING TS, B S1 PERIPHERAL EDEMA-01/2011 [id number] 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 BARAHONA, [facility], [place] OBSTRUCTIVE SLEEP APNEA HYPERLIPIDEMIA 2B COPD-07/2011 FEV1 1.9L (71%)/RATIO 92% T2DM ID GERD/HIATAL HERNIA-SEEN BY APRIL 2011 UPPER GI WITH SMALL BOWEL FOLLOW-THROUGH SCHIZOAFFECTIVE DISORDER-SPELLED BY DR. OSBORNE NONALCOHOLIC FATTY LIVER DISEASE-SEEN BY MARCH 2011 CT-NORMAL WORKUP 2010--CHRONIC HEPATITIS GRADE 2/4 WITH GRADE 4/4 CIRRHOSIS BY LIVER BIOPSY JULY 2011 VASOMOTOR SYMPTOMS VITAMIN D DEFICIENCY ALLERGIC RHINITIS RECURRENT CANDIDAL DERMATITIS ANTERIOR ABDOMEN LEUKOPENIA, CHRONIC CHRONIC ANTERIOR ABDOMINAL WALL PANNICULITIS PORTAL VENOUS HYPERTENSION SEEN BY MARCH 2011 CT CKD III-12/2013 NORMAL B RENAL US CHF 2 DIASTOLIC DYSFUNCTION-01/2017 TTE-GUADALUPE C GRADE 1 DIASTOLIC DYSFUNCTION, VERY MILD MR/TR B SHOULDER IMPIGNMENT SYNDROME-09/2015 L SHOULDER XRAY C MILD AC ARTHRITIS//S/P R PROXIMAL HUMERUS FRACTURE S/P MECHANICAL [id number] PER HEBERT RECURRENT HEPATIC ENCEPHALOPATHY-01/2017 MRI BRAIN MILD /VOLUME LOSS ASTHMA CELLULITIS HYPOTHYROIDISM MRSA (PER PT REPORT) ABDOMEN 06/16/2020 CHEST PAIN, HEAVINESS, SOB, ADMITTED TO [facility], DX TIA ALLERGIES CIPRO: CONFUSION - SIDE EFFECTS DOXYCYCLINE HYCLATE: ITCHY - ALLERGY MOTRIN: HIVES - ALLERGY SURGICAL HISTORY LINCOLN/BSO FOR NONCANCEROUS REASON-MAGDALENE 2002 EGD/[id number] GASTRITIS/PANDIVERTICULOSIS/LARGE HIATAL HERNIA/NEGATIVE SMALL BOWEL BIOPSY NOVEMBER 2009 NEGATIVE LUMBAR PUNCTURE FOR MS-LUDMILA JANUARY 2008 EGD-HIATAL HERNIA, NO EVIDENCE OF MASS AMPULLA OF VATER-ROHAN MARCH 2011 HARD PALATE EXCISIONAL BIOPSY-ULCERATED HEMANGIOMA-OPAL MARCH 2011 RIGHT HIP REPAIR AND FEMUR REPAIR BLOOD PRESSURE MARCH 2019 FAMILY HISTORY FATHER: 70 YRS, DIAGNOSED WITH OTHER SPECIFIED CONDITIONS INFLUENCING HEALTH STATUS MOTHER: 60 YRS, OTHER SPECIFIED CONDITIONS INFLUENCING HEALTH STATUS SIBLINGS: ALIVE, HYPERTENSION, UNSPECIFIED HEART DISEASE, DIABETES, UNSPECIFIED NONPSYCHOTIC MENTAL DISORDER FOLLOWING ORGANIC BRAIN DAMAGE DAUGHTER(S): ALIVE 2 BROTHER(S) , 4 SISTER(S) . 3DAUGHTER(S) - HEALTHY. MOTHER- EMPHASEMAFATHER-COPD BROTHER - OPEN HEART SURGERY. SOCIAL HISTORY GENERAL: TOBACCO USE ARE YOU A:NONSMOKER LATEX QUESTIONNAIRE LATEX ALLERGY : HAVE YOU EVER DEVELOPED ANY TYPE OF REACTION AFTER HANDLING LATEX PRODUCTS SUCH RUBBER GLOVES, CONDOMS, DIAPHRAGMS, BALLOONS, SOCKS, OR UNDERWEAR?NO ALLERGY TO SOME TAP - ONLY USES PAPER TAPE LATEX ALLERGY : HAVE YOU EVER DEVELOPED ANY TYPE OF REACTION DURING OR AFTER DENTAL APPOINTMENT, VAGINAL/RECTAL EXAMINATION, SURGICAL PROCEDURE, OR ANY OTHER EXPOSURE?NO LATEX RISK : HAVE YOU EVER HAD ANY DIFFICULTY BREATHING OR HIVES AFTER EATING OR HANDLING ANY FRUITS, OR VEGETABLES; SUCH KIWI, BANANAS, STONE FRUITS, OR CHESTNUTSNO LATEX RISK : DO YOU HAVE A PREVIOUS PERSONAL HISTORY OF MORE THAN NINE SURGERIES, SPINA BIFIDA, OR REPEATED CATHERIZATIONS? NO LATEX RISK : ARE YOU FREQUENTLY EXPOSED TO LATEX PRODUCTS IN YOUR OCCUPATION?NO DATE ASKED : 06/23/2020 BMI CARE GOAL FOLLOW-UP ABOVE NORMAL BMI FOLLOW-UPGIVING ENCOURAGEMENT TO EXERCISE ALCOHOL SCREENING DID YOU HAVE A DRINK CONTAINING ALCOHOL IN THE PAST YEAR?NO POINTS0 INTERPRETATIONNEGATIVE RECREATIONAL DRUG USE DRUG USE?NO CAFFEINE OCCASIONAL ONLY. SEXUAL HX HAD SEX IN THE LAST 12 MONTHS (VAGINAL, ORAL, OR ANAL)?NO HAVE YOU EVER HAD AN STD?NO BUDDHISM [id number] ANGLICAN LANGUAGE LANGUAGES SPOKEN:GEORGIAN EDUCATION LEVEL OF EDUCATION:FINISHED HIGH SCHOOL LEARNING BARRIERS / SPECIAL NEEDS CHANGE FROM LAST VISIT?NO BARRIERS TO LEARNING?NO HEARING IMPAIRED?NO VISION IMPAIRED?YES COGNITIVELY IMPAIRED?NO :CORRECTIVE LENSES READINESS TO LEARN?YES LEARNING PREFERENCES?YES :DEMONSTRATION/VERBAL INSTRUCTION LEARNING CAPABILITIES PRESENT?YES EMOTIONAL BARRIERS?NO SPECIAL DEVICES?NO SURGERY TEACHER NEEDED?NO DOMESTIC VIOLENCE DO YOU FEEL SAFE IN YOUR ENVIRONMENT?YES OCCUPATION: RETIRED. DIET: CARBOHYDRATE CONTROLLED. EXERCISE: NO REGULAR EXERCISE. MARITAL STATUS: SINGLE. OTHERS AT HOME: NONE. DAUGHTER LIVES NEAR BY.. PAIN CLINIC PFS, CLERGY, PUBLIC HEALTH REFERRALS HAS THE PATIENT BEEN EDUCATED REGARDING HIS/HER PLAN OF CARE?YES HAS THE PATIENT BEEN EDUCATED REGARDING PAIN, THE RISK FOR PAIN, THE IMPORTANCE OF EFFECTIVE PAIN MANAGEMENT, AND THE PAIN ASSESSMENT PROCESS?YES HOUSING: [facility] KEEP HOME. ADVANCE DIRECTIVE ADVANCE DIRECTIVE DISCUSSED WITH PATIENT:YES PT STATES THAT SHE DOES NOT HAVE HCP AT THIS TIME, DECLINES ASSISTANCE WITH PAPERWORK. DS HOSPITALIZATION/MAJOR DIAGNOSTIC PROCEDURE RECURRENT NAUSEA/VOMITING-NEGATIVE BLOOD CULTURE X2/NEGATIVE URINE CULTURE APRIL 05-2010 MS CHANGE 2 MEDICATIONS/HEPATIC ENCEPHALOPATHY-PEAK SX3-17-DNDIXDE AMBIEN, VICODIN, ZANAFLEX/NEGATIVE UCX/BCX X2 01/29-02/06/2012 MS CHANGE 2 HEPATIC ENCEPHALOPATY-HEAD CT C MILD ATROPHY 02/2012 MS CHANGE 2 HEPATIC ENCEPHALOPATHY, INCREASED PERIPHERAL EDEMA 04/2012 MS CHANGE ? 2 HEPATIC ENCEPHALOPATHY VS 2 SCHIZOAFFECTIVE DISORDER-ADMISSION NH3 32, NEGATIVE HEAD CT, B12 LEVEL, SX RESOLVED IN HOURS 05/2012 SYMPTOMATIC HYPONATRIEMIA/HYPOKALEMIA (116, 2.9 ON ADMISSION) 2 ESLD/ASCITES C OVERDIURESIS-LASIX 40 BID AND SPIROLACTONE 50 BID HELD 12/30- LLE CELLULITIS-ONSET DAY OF ADMISSION-RXED C ZOSYN 7D THEN CEFTAROLINE 5D-04/25/1409/24 BCX K PNEUMONIA, 04/28/14 UCX NGCS, 05/04, , -BCX X 1 EACH DAY -, CXR C MILD B PVC, 04/25/2014 - LLE EVT US 04/25- LLE CELLULITIS WITH S. SIMULANS AND C- STAPH BCX 09/24, P. AERUGENOSA BY BCX 09/24 RXED C LEVAQUIN 10D, UCX NG, CT CHEST S/ C - 06/22-06/30/14 INCREASED BLE EDEMA =/- BLE CELLULITIS, ASX UCX C E. COLI ESBL (AFEBRILE, PRESENTING WBC 4.2) RXED C ZOSYN 3D THEN BACTRIM 2D, - BCX X 2, - CXR, - B TIB/FIB XRAY 09/03- LLE CELLULITIS/SIRS- -BCX X 2, -LLE DVT US, RXED C CEFAROLINE BUT D/MOUSTAPHA ON KEFLEX 500 BID, UCX NG, - MRSA SCREEN, ADMISSION WBC 14.3, CRP 7.9 11/14- LLE CELLULITIS-- BCX X 2, SCX C FEW COAG NEG STAPH, RX C CEFTAROLINE IV, D/MOUSTAPHA ON DOXY PO 03/10- LLE CELLULITIS/SIRS-RX C CEFTAROLINE-(ADMISSION WBC 17.9, D/C 5.8, NO CRP/ESR DONE, BCX - X 2) 04/23-03/07 LLE CELLULITIS/SIRS-BETH CHANGED CEFTAROLINE TO KEFLEX 500 QID AND RECOMMENDED 500 QD SUPPRESSION FAVORING RECURRENT MSSA, - NASAL SWAB MRSA SCREEN AND CULTURE, - BCX X2, -MRI L FOOT/THIGH, -LLE DVT US 06/15-06/23/15 ACUTE HYPOXIC RESPIRATORY FAILURE 2 ARDS FROM ASPIRATION PN/CARDIOGENIC SHOCK-ON MECHANICAL VENTILATION X 1W, RUE NONOCCLUSIVE CEPHALIC DVT-NOT TREATED/THEN TO [facility] UNTIL 07/05/1604/04-04/26/16 BROKEN SHOULDER- ALC FOR 2 WEEK 10/15-10/17/16 HEPATIC ENCEPHALOPATHY 01/02/17-01/04/17 HEPATIC ENCEPHALOPATHY, DECOMPENSATED CHF, UTI, - BLE DVT US 04/18-04/30/17 REVIEW OF SYSTEMS CONSTITUTIONAL: ANY RECENT FEVER NO . CHILLS NO . WEIGHT CHANGE OF UNKNOWN REASONS NO . GASTROENTEROLOGY: NEW UNEXPLAINABLE CHANGES IN BOWEL CONTROL NO . CONSTIPATION NO . GENITOURINARY: ANY NEW CHANGE IN BLADDER CONTROL? NO . NEUROLOGY: NEW ONSET DIZZINESS OR NEUROLOGICAL CHANGES NOT MENTIONED NO . NEW NUMBNESS OR PAIN PATTERNS NOT MENTIONED AND PERTINENT TO TODAY'S VISIT NO . CARDIOLOGY: NEW CHEST PRESSURE NO . NEW CHEST PAIN NO . RESPIRATORY: UNEXPLAINABLE COUGH NO . NEW SHORTNESS OF BREATH NO . HISTORY OF MRSA, SOME ULCERS OF THE LOWER EXTREMITIES, HISTORY OF CEREBROVASCULAR EVENT. VITAL SIGNS WT 268 LBS, HT 78 IN, BMI 30.97 INDEX, BP 136/70 MM HG, HR 65 /MIN, RR 18 /MIN, TEMP 97.6 F, OXYGEN SAT % 96%, NA INITIALS AW 1507, REVIEWED BY: DS. EXAMINATION GENERAL EXAMINATION: THE PATIENT IS ALERT, ORIENTED TIMES THREE AND COOPERATIVE. HEART SHOWS REGULAR RHYTHM, NO MURMURS AND NO GALLOPS. LUNGS ARE CLEAR TO AUSCULTATION. THE PATIENT IS SITTING IN A WHEEL CHAIR. SHE IS LIMPING FROM HER LEFT LEG. THE LEFT LEG IS WEAKER THAN THE RIGHT LEG ON FLEXION AND EXTENSION. STRAIGHT LEG RAISE IS POSITIVE ON THE LEFT AT [address] OF THE LUMBAR SPINE DATED 03/15/2020 SHOWS SOME BULGING DISC, SEVERE CANAL STENOSIS AND A 7.6 MM RETROPULSION AT L5. THE PATIENT HAD SEVERAL STUDIES PERFORMED AFTER A CEREBROVASCULAR EVENT INCLUDING BRAIN STUDIES AND A CT OF THE ABDOMEN. ASSESSMENTS INTERVERTEBRAL DISC DISORDERS WITH RADICULOPATHY, LUMBAR REGION - M51.16 (PRIMARY) TREATMENT INTERVERTEBRAL DISC DISORDERS WITH RADICULOPATHY, LUMBAR REGION CLINICAL NOTES: WE DISCUSSED SEVERAL ALTERNATIVES WITH MS. FARFAN REGARDING HER TREATMENT OPTIONS AND CARE. I HAD A CONVERSION WITH DR. BOWMAN ABOUT THE CT SCAN OF THE LUMBAR SPINE DONE IN FEBRUARY 2020 WHICH SHOWS A FRACTURE AND ALSO THERE IS A VACUUM PHENOMENON AT L4-L5. THERE IS ALSO A MENTION OF DISCITIS. I WOULD LIKE TO GET AN MRI OF THE LUMBAR SPINE WITH AND WITHOUT CONTRAST. THE ISSUE WITH THE CONTRAST IS HER RENAL FUNCTION SO I WILL TALK WITH HER PRIMARY CARE PHYSICIAN. IF SHE CANNOT HAVE AN MRI WITH CONTRAST, THEN WE CAN DO AN MRI WITHOUT CONTRAST AND A NEW CT AND THEN WE CAN COMPARE THE NEW CT AND THE CT FROM FEBRUARY. IF WE DO THE STUDY AND WE ARE ABLE TO DO AN EPIDURAL, THEN I WOULD LIKE TO DO AN EPIDURAL AT L4-L5 WHERE THE SEVERE STENOSIS IS. AN ALTERNATIVE IS AT L5-S1 WITH A CATHETER UP TO L4-L5. I WILL RETURN HER BACK TO [facility] AND I WILL REACH OUT TO HER PRIMARY. WE WILL DO AN EPIDURAL IF THERE IS NO DISCITIS FOUND. THE PATIENT UNDERSTANDS AND IS IN AGREEMENT WITH THE TREATMENT PLAN. I, SYDNEY FAIRBANKS, DOCUMENTED THE ABOVE INFORMATION ACTING A SCRIBE FOR DR. HERNANDEZ. I HAVE REVIEWED THE ABOVE DOCUMENT, WRITTEN BY SYDNEY FAIRBANKS, PREPARED FOODS ASSOCIATE, AND I VERIFY THAT IT IS ACCURATE. PROCEDURE CODES FA211 ESTABILISHED PATIENT [facility] CHARGE [id number] OFFICE/OUTPATIENT VISIT EST DISPOSITION & COMMUNICATION FOLLOW UP FOLLOW WITH DR. Mc IN 1 MONTH (REASON: FUP ABOUT MRI) ELECTRONICALLY SIGNED BY CAMACHO HERNANDEZ MD, MD ON 06/29/2020 AT 11:41 AM EDT DISCLAIMER : THIS IS A VISIT SUMMARY EXTRACTED FROM THE AF83 CHART. IT IS NOT A COPY OF THE AF83 PROGRESS NOTE. MTDD
== END ==
LOC: M PAIN 15:00
PROVIDERS: ATTEND Anesthesiology
DX: M51.16 Intervertebral disc disorders with radiculopathy, lumbar region (principal); G89.29 Other chronic pain; Z86.14 Personal history of Methicillin resistant Staphylococcus aureus infection; I10 Essential (primary) hypertension; G47.33 Obstructive sleep apnea (adult) (pediatric); E78.5 Hyperlipidemia, unspecified; J44.9 Chronic obstructive pulmonary disease, unspecified; E11.9 Type 2 diabetes mellitus without complications; K21.9 Gastro-esophageal reflux disease without esophagitis; E03.9 Hypothyroidism, unspecified; Z86.59 Personal history of other mental and behavioral disorders; Z88.1 Allergy status to other antibiotic agents; Z88.6 Allergy status to analgesic agent; Z79.4 Long term (current) use of insulin; Z79.899 Other long term (current) drug therapy

== ENCOUNTER → 2020-06-29 | Outpatient (CLI) | payer MEDICARE, MEDICAID ==
[~2020-06-29] MED LIST changes: +ISOVUE-300 61% 50ML VIAL As Ordered ONE; +LIDOCAINE 1% MDV 20ML VIAL As Ordered ONE; +TRIAMCINOLONE ACETONIDE SUSP 40 MG/ML VIAL (J3301) As Ordered ONE
--- NOTE | 2020-07-04 10:05 | REP ---
RIGHT SHOULDER INTRAARTICULAR JOINT INJECTION This procedure was performed by CHERI Orozco, under the direct supervision of Dr. Calderon. The risks and benefits of the procedure were explained to the patient and an informed consent was obtained both verbally and written. Directly prior to the start of the procedure, a formal time-out was completed in the procedure room. The right glenohumeral joint space was localized using fluoroscopic guidance. The skin was prepped and draped in a sterile fashion. 5 mL of 1% Lidocaine 10 mg/mL was used as a local anesthetic. Using fluoroscopic guidance, a 22-gauge spinal needle was inserted and advanced into the right glenohumeral joint space. 0.5 mL of Isovue-300 was injected to verify placement. 6 mL of a solution containing 5 mL 1% Lidocaine 10 mg/mL and 1 mL of Kenalog 40 mg/mL was injected into the joint. The needle was removed and hemostasis was achieved. The patient tolerated the procedure well and there were no immediate complications. 0.1 minutes of fluoroscopy time was utilized for this procedure. ALTAGRACIA
== END ==
LOC: M RADPRO 12:21
PROVIDERS: ATTEND Physician Assistant
DX: M19.011 Primary osteoarthritis, right shoulder (principal)
CPT/HCPCS: 20610; 77002; J3301; Q9967

== ENCOUNTER 2020-07-08 21:30 | Emergency (ER) | payer MEDICARE, MEDICAID ==
[~2020-07-08] VITALS: Ht 160 cm; Wt 126.4 kg
[~2020-07-08 21:30] MED LIST changes: -ASPI1CHW3 PO; -CEPH500T PO; -CLIN150C14 PO; -HYDR1CAP25 PO; -MYLASSUD PO; -PROP20TA72 PO; -RISATAB3 PO
[2020-07-08] MEDS ORDERED: cefTRIAXone SOD 1 GM in D5W MINI-BAG PLUS 50 ML IV ONE (22:00)
[2020-07-09 00:59] VITALS: BP 128/73
== END 2020-07-09 01:32 | disposition home or self-care (01) ==
LOC: M ED 21:30
DX: I87.2 Venous insufficiency (chronic) (peripheral) (principal); I87.8 Other specified disorders of veins; E11.9 Type 2 diabetes mellitus without complications; I50.30 Unspecified diastolic (congestive) heart failure; F20.9 Schizophrenia, unspecified; G47.33 Obstructive sleep apnea (adult) (pediatric); E07.9 Disorder of thyroid, unspecified; Z86.73 Personal history of transient ischemic attack (TIA), and cerebral infarction without residual deficits; K21.9 Gastro-esophageal reflux disease without esophagitis; E66.01 Morbid (severe) obesity due to excess calories; Z68.42 Body mass index [BMI] 45.0-49.9, adult; Z88.0 Allergy status to penicillin; Z88.6 Allergy status to analgesic agent; Z88.1 Allergy status to other antibiotic agents; Z79.2 Long term (current) use of antibiotics; Z79.899 Other long term (current) drug therapy; Z79.82 Long term (current) use of aspirin; Z79.4 Long term (current) use of insulin; I89.1 Lymphangitis
CPT/HCPCS: 36415; 80048; 85025; 85652; 86140; 87040; 96365; 99284; J0696

== ENCOUNTER → 2020-07-08 | Outpatient (REF) | payer MEDICARE, MEDICAID ==
[~2020-07-08] MED LIST changes: -ISOVUE-300 61% 50ML VIAL As Ordered ONE; -LIDOCAINE 1% MDV 20ML VIAL As Ordered ONE; -TRIAMCINOLONE ACETONIDE SUSP 40 MG/ML VIAL (J3301) As Ordered ONE
[2020-07-08 10:57] LABS: BASO % 0.5 % (0.0-1.0); EOS # 0.2 10^3/uL (0.0-0.5); EOS % 2.4 % (0.0-3.0); HEMOGLOBIN 13.1 g/dl (12.0-15.5); LYMPH # 1.1 10^3/uL (1.5-5.0); LYMPH % 13.2 % (24.0-44.0); MEAN CORPUSCULAR HEMOGLOBIN 29.4 pg (27.0-33.0); MEAN CORPUSCULAR VOLUME 92.1 fl (80.0-96.0); MONO # 0.6 10^3/uL (0.0-0.8); MONO % 6.4 % (0.0-5.0); NEUTROPHILS # 6.6 10^3/uL (1.5-8.5); NEUTROPHILS % 76.8 % (36.0-66.0); PLATELET COUNT, AUTOMATED 190 10^3/uL (150-450); RED BLOOD COUNT 4.45 10^6/uL (4.00-5.40); WHITE BLOOD COUNT 8.6 10^3/uL (4.0-10.0)
[2020-07-08 11:27] LABS: C REACTIVE PROTEIN QUANTITATIV 5.04 MG/DL (0.00-0.30); CALCIUM LEVEL 8.8 MG/DL (8.8-10.2); CREATININE FOR GFR 1.36 MG/DL (0.55-1.30); GLOMERULAR FILTRATION RATE 41.5 (>45); POTASSIUM SERUM 4.7 MEQ/L (3.5-5.1)
[2020-07-08 13:53] LABS: ERYTHROCYTE SEDIMENTATION RATE 65 mm/hr (0-30)
== END ==
LOC: SKLAB5 09:42
DX: I89.1 Lymphangitis (principal)

== ENCOUNTER → 2020-07-10 | Outpatient (REF) | payer MEDICARE, MEDICAID ==
[~2020-07-10] MED LIST changes: +ASPI1CHW3 PO; +CEPH500T PO; +CLIN150C14 PO; +HYDR1CAP25 PO; +MYLASSUD PO; +PROP20TA72 PO; +RISATAB3 PO
--- NOTE | 2020-07-10 10:00 | REPVR ---
PROCEDURE INFORMATION: Exam: XR Chest, 1 View Exam date and time: 07/10/2020 9:22 AM Age: 64 years old Clinical indication: Other: Abnormal sounds; Additional info: Abnormal lung sounds TECHNIQUE: Imaging protocol: XR of the chest Views: 1 view. COMPARISON: CT Chest without contrast 06/18/2020 7:44 AM FINDINGS: Lungs: Unremarkable. No consolidation. Pleural space: Unremarkable. No pleural effusion. No pneumothorax. Heart/Mediastinum: Unremarkable. No cardiomegaly. Bones/joints: Mild deformity of the proximal humerus probably related to chronic fracture deformity. Underlying bone heterogeneity probably related to bone demineralization. IMPRESSION: No acute findings. Electronically signed by: Tali Celestin On 07/10/2020 10:00:18 AM
[2020-07-10 11:08] LABS: HEMATOCRIT 37.8 % (36.0-47.0); HEMOGLOBIN 11.7 g/dl (12.0-15.5); MEAN CORPUSCULAR HEMOGLOBIN 29.7 pg (27.0-33.0); MEAN CORPUSCULAR VOLUME 95.9 fl (80.0-96.0); PLATELET COUNT, AUTOMATED 144 10^3/uL (150-450); RED BLOOD COUNT 3.94 10^6/uL (4.00-5.40); WHITE BLOOD COUNT 4.8 10^3/uL (4.0-10.0)
[2020-07-10 11:33] LABS: CALCIUM LEVEL 7.8 MG/DL (8.8-10.2); CREATININE FOR GFR 1.42 MG/DL (0.55-1.30); GLOMERULAR FILTRATION RATE 39.5 (>45); POTASSIUM SERUM 4.3 MEQ/L (3.5-5.1)
== END ==
LOC: SKLAB5 08:26 → M LAB 08:26
PROVIDERS: ATTEND Family Medicine
DX: R09.89 Other specified symptoms and signs involving the circulatory and respiratory systems (principal); M89.9 Disorder of bone, unspecified

== ENCOUNTER → 2020-07-11 | Outpatient (REF) | payer MEDICARE, MEDICAID | LOC: SKLAB5 12:05 | DX: J40 Bronchitis, not specified as acute or chronic (principal) ==

== ENCOUNTER → 2020-07-20 | Outpatient (REF) | payer MEDICARE, MEDICAID, OTHER ==
[~2020-07-20] MED LIST changes: -ASPI1CHW3 PO; -CEPH500T PO; -CLIN150C14 PO; -HYDR1CAP25 PO; -MYLASSUD PO; -PROP20TA72 PO; -RISATAB3 PO
[2020-07-21 19:07] LABS: ANTI-MITOCHONDRIAL ANTIBODY <20.0 Units (0.0-20.0); ANTINUCLEAR ANTIBODIES DIRECT Negative (Negative); LIVER-KIDNEY MICROSOMAL ABY <20.1 Units (0.0-20.0); TISSUE TRANSGLUTAMINASE IgA <2 U/mL (0-3)
== END ==
LOC: SKLAB5 07:31
DX: E88.09 Other disorders of plasma-protein metabolism, not elsewhere classified (principal)

== ENCOUNTER 2020-07-28 13:38 | Inpatient (IN) | payer MEDICARE, MEDICAID ==
[~2020-07-28] VITALS: Ht 160 cm; Wt 131.8 kg
[~2020-07-28 13:38] MED LIST changes: -ASPI1CHW3 PO; -CEPH500T PO; -CLIN150C14 PO; -HYDR1CAP25 PO; -MYLASSUD PO; -PROP20TA72 PO; -RISATAB3 PO
[2020-07-28 14:44] LABS: BASO % 0.3 % (0.0-1.0); EOS # 0.1 10^3/uL (0.0-0.5); EOS % 0.8 % (0.0-3.0); HEMATOCRIT 39.2 % (36.0-47.0); HEMOGLOBIN 12.2 g/dl (12.0-15.5); LYMPH # 1.2 10^3/uL (1.5-5.0); LYMPH % 10.7 % (24.0-44.0); MEAN CORPUSCULAR HEMOGLOBIN 29.5 pg (27.0-33.0); MEAN CORPUSCULAR HGB CONC 31.1 g/dl (32.0-36.5); MEAN CORPUSCULAR VOLUME 94.7 fl (80.0-96.0); MONO # 0.9 10^3/uL (0.0-0.8); MONO % 8.5 % (0.0-5.0); NEUTROPHILS # 8.7 10^3/uL (1.5-8.5); NEUTROPHILS % 79.2 % (36.0-66.0); PLATELET COUNT, AUTOMATED 182 10^3/uL (150-450); RED BLOOD COUNT 4.14 10^6/uL (4.00-5.40)
[2020-07-28] MEDS ORDERED: ASPI1CHW3 PO (14:46)
[2020-07-28] MEDS ORDERED: XIFA550T PO (14:46)
[2020-07-28] MEDS ORDERED: HYDR1CAP25 PO (14:46)
[2020-07-28] MEDS ORDERED: CEPH500T PO (14:46)
[2020-07-28] MEDS ORDERED: ATOR40TA75 PO (14:46)
[2020-07-28] MEDS ORDERED: MYLASSUD PO (14:46)
[2020-07-28] MEDS ORDERED: PROP20TA72 PO (14:46)
[2020-07-28 15:07] LABS: ALBUMIN 2.5 GM/DL (3.2-5.2); BILIRUBIN,TOTAL 1.2 MG/DL (0.2-1.0); CALCIUM LEVEL 8.5 MG/DL (8.8-10.2); CREATININE FOR GFR 1.27 MG/DL (0.55-1.30); TOTAL PROTEIN 7.2 GM/DL (6.4-8.2)
[2020-07-28] MEDS ORDERED: CLINDAMYCIN 900 MG in IV 1 EA IV ONE (15:15)
[2020-07-28] MEDS ORDERED: GLUCAGON INJ 1MG VIAL SC PRN (16:00)
[2020-07-28] MEDS ORDERED: FLEET ENEMA PR PRN (16:00)
[2020-07-28] MEDS ORDERED: diphenhydrAMINE 25MG CAP PO PRN (16:00)
[2020-07-28] MEDS ORDERED: GLUCOSE 4GM CHEW TABLET PO PRN (16:00)
[2020-07-28] MEDS ORDERED: DEXTROSE 50% 50 ML SYRINGE IV PRN (16:00)
[2020-07-28] MEDS ORDERED: MOM 30ML SUSPENSION UDC PO PRN (16:00)
[2020-07-28] MEDS ORDERED: BISACODYL 10 MG SUPP PR PRN (16:00)
[2020-07-28] MEDS ORDERED: ALBUTEROL SULFATE 2.5 MG/0.5 ML INH NEB SOLN INH PRN (16:15)
--- NOTE | 2020-07-28 16:16 | HPEPDOC ---
[facility] Medical History & Physical Date of Admission Jul 28, 2020 Date of Service: Jul 28, 2020 History and Physical Chief complaint: Who presented to the ER with left swelling. 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 Patient is a resident of [facility] and was experiencing left cheek swelling and pain for the last 4 days. Patient reported that shes been having difficulty chewing her food. Report some difficulty with swallowing solids and very little difficulty with liquids. Patient denies any fevers or chills. Denies any chest pain, shortness of breath. Denies any change from baseline cough. Patient has experience some nausea. Denies any vomiting, abdominal pain. She does occasionally experience constipation. Her last bowel movement was yesterday. Patient denies any urinary discomfort. Patient has reported an increase in her weight. 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, Chronic diastolic CHF (Grade 2), IDDM2, COPD, RENEE (non- compliant with CPAP), CKD3, Recurrent abdominal wall cellulitis / panniculitis, Schizophrenia, Chronic venous stasis ulcers, Morbid obesity, Chronic low back / neck pain Past Surgical History: Right hip fracture and repair Hysterectomy and oophorectomy EGD and colonoscopy Lesion excised from hard palate which turned out to be an ulcerated hemangioma Allergies: See below Medications: See below Family History: - No history of malignancies Social History: - Denies the use of alcohol or illicit drugs; patient quit smoking greater than 20 years ago - Denies recent travel or sick contacts - Lives at [facility] - 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; 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 Review of Systems: 10 point review of systems complete, all negative otherwise stated in HPI Physical exam: - Vitals: BP [128/73], HR [68], RR [20], Sat [100%RA], Temp [97.4F] - General: Lying in bed, No acute distress, Speaking in full sentences, AAOx3 - HEENT: PERRLA, left cheek with erythema, warmth and tenderness, palpable induration noted - CVS: RRR, +S1S2 - Lungs: Fair air entry bilaterally, No wheezing / rales / rhonchi - Abdomen: Soft, Non-distended, Non-tender - Extremities: No lower extremity edema, No calf tenderness - Neuro: No focal motor or sensory deficit - Skin: No visible rashes Assessment and Plan: Left masseter muscle fluid collection, possible abscess - Patient has reported worsening left cheek pain and swelling - Hemodynamically stable and afebrile - Mild leukocytosis with neutrophil predominance; no lactic acidosis - Blood cultures pending - CT neck 07/27: 1. 2.6 cm low-density intramuscular lesion within the left masseter muscle consistent with abscess. This is new from the recent study 06/17/2020. There is surrounding edema in the left parotid and left facial soft tissues. No adenopathy seen. 2. Dilated upper thoracic and cervical esophagus filled with fluid and some air question gastroesophageal reflux. Otherwise negative. - Will check MRSA screen - Will start Clindamycin - c/w continuous pulse oximetry - Clear liquid diet for now; speech and swallow evaluation in AM - Discussed with Dr. 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 - Appears to be compensated - Will continue with rifaximin, propranolol, torsemide, spironolactone - c/w bowel regimen as ordered Chronic diastolic CHF (Grade 2) - No evidence of exacerbation - c/w Torsemide and Spironolactone with hold parameters IDDM2 with Neuropathy - c/w adjusted dose of long acting insulin - c/w ISS - Will reduce dose of Gabapentin COPD - No evidence of exacerbation - c/w inhaled therapy as ordered RENEE - non-compliant with CPAP - Will allow intubation use of home CPAP, if available - c/w RENEE protocol DLP - c/w Atorvastatin Hypothyroidism - c/w levothyroxine CKD3 - Creatinine appears to be better than baseline Schizophrenia / Anxiety - c/w Hydroxyzine, Duloxetine Recurrent abdominal wall cellulitis / panniculitis / Chronic venous stasis ulcers - Appears to be unchanged Morbid obesity - Complicating medical care Chronic low back / neck pain - c/w outpatient home regimen GERD - c/w Omeprazole DVT prophylaxis - Will start Heparin Code status: - DNR / DNI Vital Signs Vital Signs Date Time Temp Pulse Resp B/P (MAP) Pulse Ox O2 Delivery O2 Flow Rate FiO2 11/5/20 14:02 Room Air 07/28/20 14:00 68 20 175/88 94 Laboratory Data Labs 24H Laboratory Tests 2 07/28/20 14:31: Immature Granulocyte % (Auto) 0.5, Neutrophils (%) (Auto) 79.2H, Lymphocytes (%) (Auto) 10.7L, Monocytes (%) (Auto) 8.5H, Eosinophils (%) (Auto) 0.8, Basophils (%) (Auto) 0.3, Neutrophils # (Auto) 8.7H, Lymphocytes # (Auto) 1.2L, Monocytes # (Auto) 0.9H, Eosinophils # (Auto) 0.1, Basophils # (Auto) 0.0, Nucleated Red Blood Cells % (auto) 0.0, Anion Gap 4L, Glomerular Filtration Rate 45.0, Lactic Acid Level 1.5, Calcium Level 8.5L, Total Bilirubin 1.2H, Aspartate Amino Transf (AST/SGOT) 25, Alanine Aminotransferase (ALT/SGPT) 25, Alkaline Phosphatase 140H, Total Protein 7.2, Albumin 2.5L, Albumin/Globulin Ratio 0.5L CBC/BMP Laboratory Tests 07/28/20 14:31 Microbiology Microbiology 07/28/20 Blood Culture, Received Pending 07/28/20 Blood Culture, Received Pending Home Medications Scheduled Aluminum/Magnesium/Simeth (Mag-Al Plus Suspension) 30 Ml Oral.susp, 30 ML PO AC Aspirin (Aspirin) 81 Mg Tab.chew, 81 MG PO DAILY Atorvastatin Calcium (Atorvastatin Calcium) 40 Mg Tablet, 40 MG PO DAILY Buprenorphine (Butrans) 10 Mcg/Hr Patch.tdwk, 1 PATCH TOP QWEEK EVERY SATURDAY Cephalexin (Cephalexin) 500 Mg Tablet, 500 MG PO QID STARTED 07/28/20 FOR 7 DAYS Duloxetine Hcl (Cymbalta) 30 Mg Capsule.dr, 30 MG PO BID Gabapentin (Gabapentin) 300 Mg Capsule, 300 MG PO TID 0500, 1300, 2100 Insulin Glargine (Lantus) 100 Unit/1 Ml Vial, 60 UNITS SC DAILY Insulin Glargine (Lantus) 100 Unit/1 Ml Vial, 55 UNITS SC QHS Levothyroxine Sodium (Levoxyl) 50 Mcg Tablet, 50 MCG PO DAILY Omeprazole (Omeprazole) 40 Mg Capsule.dr, 40 MG PO DAILY Potassium Chloride (Potassium Chloride) 10 Meq Tab.er.prt, 10 MEQ PO TID Propranolol HCl (Propranolol HCl) 20 Mg Tablet, 20 MG PO BID Rifaximin (Xifaxan) 550 Mg Tablet, 550 MG PO BID Spironolactone (Spironolactone) 50 Mg Tablet, 50 MG PO BID 0800 & 1700 Tiotropium [place] (Spiriva) 18 Mcg Cap.w.dev, 1 INHALATION INH DAILY Torsemide (Torsemide) 10 Mg Tablet, 10 MG PO BID 0800 & 1400 Scheduled PRN Acetaminophen (Tylenol) 325 Mg Tablet, 650 MG PO Q4H PRN for PAIN / FEVER Albuterol Sulf (Albuterol Sulfate) 2.5 Mg/3 Ml Vial.neb, 2.5 MG INH Q2H PRN for SOB/WHEEZING Bisacodyl (Dulcolax) 10 Mg Supp.rect, 10 MG GA DAILY PRN for CONSTIPATION Diphenhydramine HCl (Diphenhydramine HCl) 25 Mg Capsule, 25 MG PO Q6H PRN for ITCHING Eucalyptus/Menthol (Cough Drops) 1 Each Lozenge, 1 LOZENGE MT Q1H PRN for COUGH Hydroxyzine Pamoate (Hydroxyzine Pamoate) 25 Mg Capsule, 25 MG PO QID PRN for ANXIETY Menthol (Biofreeze) 118 Ml Gel..ml., 1 DOSE EXT Q4H PRN for PAIN APPLY TO PAINFUL JOINTS AND MUSCLES Milk Of Magnesia (Milk of Magnesia) 2,400 Mg/10 Ml Oral.susp, 10 ML PO DAILY PRN for CONSTIPATION Ondansetron HCl (Zofran) 4 Mg Tablet, 4 MG PO Q6H PRN for NAUSEA Oxycodone HCl (Oxycodone HCl) 10 Mg Tablet, 10 MG PO Q4H PRN for PAIN LEVEL 7-10 Sodium Phosphate,[place]-Dibasic (Enema) 133 Ml Enema, 1 EMANUEL GA DAILY PRN for CONSTIPATION Allergies Coded Allergies: Penicillins (Verified Allergy, Intermediate, HIVES, 07/27/19) Quinolones (Verified Allergy, Intermediate, HIVES, 07/08/20) ibuprofen (Verified Allergy, Mild, RASH, 07/08/20) RACIEL GARCIA MD Jul 28, 2020 16:16
[2020-07-28] MEDS: LACTOBACILLUS ACIDOPHILUS CAP (BACID) PO SCH (17:47)
[2020-07-28] MEDS: MAALOX 30 ML SUSP *UDC PO SCH (17:48)
[2020-07-28] MEDS: SPIRONOLACTONE 50 MG TAB PO SCH (17:48)
[2020-07-28] MEDS: oxyCODONE 5MG TAB PO PRN (17:48)
[2020-07-28] MEDS: HumaLOG INSULIN (NovoLOG) PER UNIT SC SCH ×2 (18:28→21:00)
[2020-07-28 19:53] VITALS: BP 165/74
[2020-07-28 21:00] VITALS: O2SAT 93
[2020-07-28] MEDS: LEVEMIR (INSULIN DETEMIR) 1 UNITS/0.01ML SC SCH (21:00)
[2020-07-28] MEDS: rifAXIMin 550 MG TAB (XIFAXAN) PO SCH (21:33)
[2020-07-28] MEDS: GABAPENTIN 100 MG CAP PO SCH (21:34)
[2020-07-28] MEDS: ACETAMINOPHEN TAB 650MG DOSE (2X325MG) PO PRN (21:34)
[2020-07-28] MEDS: DULoxetine 30 MG CAP (CYMBALTA) PO SCH (21:34)
[2020-07-28] MEDS: HEPARIN SOD (PORCINE) 5000UNITS/ML 1ML VIAL/SYRINGE SC SCH (21:40)
[2020-07-28] MEDS: PROPRANOLOL 20 MG TAB PO SCH (21:52)
[2020-07-28] MEDS: CLINDAMYCIN 900 MG in IV 1 EA IV SCH (23:30)
[2020-07-29] MEDS: oxyCODONE 5MG TAB PO PRN ×4 (03:22→21:29)
[2020-07-29] MEDS: GABAPENTIN 100 MG CAP PO SCH ×3 (05:08→21:29)
[2020-07-29] MEDS: LEVOTHYROXINE 50MCG TABLET (0.05MG) PO SCH (05:08)
[2020-07-29] MEDS: HEPARIN SOD (PORCINE) 5000UNITS/ML 1ML VIAL/SYRINGE SC SCH ×3 (05:09→21:26)
[2020-07-29 06:04] VITALS: BP 143/87
[2020-07-29 06:08] LABS: BASO % 0.3 % (0.0-1.0); EOS # 0.1 10^3/uL (0.0-0.5); HEMATOCRIT 39.1 % (36.0-47.0); HEMOGLOBIN 12.2 g/dl (12.0-15.5); LYMPH # 1.2 10^3/uL (1.5-5.0); LYMPH % 12.9 % (24.0-44.0); MEAN CORPUSCULAR HEMOGLOBIN 29.2 pg (27.0-33.0); MEAN CORPUSCULAR HGB CONC 31.2 g/dl (32.0-36.5); MEAN CORPUSCULAR VOLUME 93.5 fl (80.0-96.0); MONO # 0.7 10^3/uL (0.0-0.8); MONO % 7.8 % (0.0-5.0); NEUTROPHILS # 6.9 10^3/uL (1.5-8.5); NEUTROPHILS % 77.1 % (36.0-66.0); PLATELET COUNT, AUTOMATED 191 10^3/uL (150-450); RED BLOOD COUNT 4.18 10^6/uL (4.00-5.40)
[2020-07-29 06:36] LABS: CALCIUM LEVEL 8.7 MG/DL (8.8-10.2); CREATININE FOR GFR 1.02 MG/DL (0.55-1.30); GLOMERULAR FILTRATION RATE 57.9 (>45); MAGNESIUM LEVEL 2.2 MG/DL (1.8-2.4); POTASSIUM SERUM 3.9 MEQ/L (3.5-5.1)
[2020-07-29] MEDS: HumaLOG INSULIN (NovoLOG) PER UNIT SC SCH ×4 (07:30→21:00)
[2020-07-29] MEDS: TIOTROPIUM INHALER/CAPSULE (SPIRIVA) INH SCH (07:54)
[2020-07-29] MEDS: DULoxetine 30 MG CAP (CYMBALTA) PO SCH ×2 (09:01→21:29)
[2020-07-29] MEDS: CLINDAMYCIN 900 MG in IV 1 EA IV SCH ×2 (09:01→15:00)
[2020-07-29] MEDS: rifAXIMin 550 MG TAB (XIFAXAN) PO SCH ×2 (09:01→21:28)
[2020-07-29] MEDS: TORSEMIDE 10 MG TABLET PO SCH ×2 (09:01→17:43)
[2020-07-29] MEDS: LACTOBACILLUS ACIDOPHILUS CAP (BACID) PO SCH ×3 (09:01→17:43)
[2020-07-29] MEDS: ATORVASTATIN 20 MG TAB PO SCH (09:01)
[2020-07-29] MEDS: OMEPRAZOLE 20 MG CAP PO SCH (09:02)
[2020-07-29] MEDS: MAALOX 30 ML SUSP *UDC PO SCH ×3 (09:02→17:43)
[2020-07-29] MEDS: SPIRONOLACTONE 50 MG TAB PO SCH ×2 (09:02→17:43)
[2020-07-29] MEDS: ASPIRIN 81 MG CHEW TABLET PO SCH (09:02)
[2020-07-29] MEDS: LEVEMIR (INSULIN DETEMIR) 1 UNITS/0.01ML SC SCH ×2 (09:02→21:27)
[2020-07-29] MEDS: PROPRANOLOL 20 MG TAB PO SCH ×2 (09:04→21:28)
--- NOTE | 2020-07-29 11:12 | IPNPDOC ---
Text Note Date of Service The patient was seen on 07/29/20. 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 Patient is a resident of [facility] and was experiencing left cheek swelling and pain for the last 4 days. Patient reported that shes been having difficulty chewing her food. Report some diffic ulty with swallowing solids and very little difficulty with liquids. Patient was admitted to the hospital service for further evaluation and treatment. ENT was called on consultation. Patient was seen and examined at the bedside. Patient reports that her left cheek pain is doing slightly better. Denies any chest pain, shortness breath, palpitations, nausea, vomiting, abdominal pain, diarrhea, or urinary discomfort. Objective: Vitals (See below) General: Lying in bed, appears to be comfortable, AAOx3 HEENT: L cheek swelling; no erythema / warmth / drainage CVS: +S1S2 Lungs: Fair air entry b/l, no appreciable wheezing, rhonchi or rales Abdomen: Soft, ND, NT, Multiple abdominal healing lesions Extremities: Chronic venosus stasis ulcers, - Calf tenderness Assessment and plan: Left masseter muscle fluid collection, less likely 2/2 abscess - Patient has reported worsening left cheek pain and swelling; has had some improvement this morning - Hemodynamically stable and afebrile - s/p leukocytosis with neutrophil predominance; no lactic acidosis - Blood cultures 07/28: Pending - CT neck 07/27: 1. 2.6 cm low-density intramuscular lesion within the left masseter muscle consistent with abscess. This is new from the recent study 06/17/2020. There is surrounding edema in the left parotid and left facial soft tissues. No adenopathy seen. 2. Dilated upper thoracic and cervical esophagus filled with fluid and some air question gastroesophageal reflux. Otherwise negative. - MRSA screen pending - c/w Clindamycin (Day #2) - c/w continuous pulse oximetry - Clear liquid diet for now; speech and swallow evaluation today - Dr. 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 - Appears to be compensated - c/w rifaximin, propranolol, torsemide, spironolactone - c/w bowel regimen as ordered Chronic diastolic CHF (Grade 2) - No evidence of exacerbation - c/w Torsemide and Spironolactone with hold parameters IDDM2 with Neuropathy - c/w adjusted dose of long acting insulin - c/w ISS - c/w reduced dose of Gabapentin COPD - No evidence of exacerbation - c/w inhaled therapy as ordered RENEE - non-compliant with CPAP - Will allow intubation use of home CPAP, if available - c/w RENEE protocol DLP - c/w Atorvastatin Hypothyroidism - c/w levothyroxine CKD3 - Creatinine appears to be better than baseline Schizophrenia / Anxiety - c/w Hydroxyzine, Duloxetine Recurrent abdominal wall cellulitis / panniculitis / Chronic venous stasis ulcers - Appears to be unchanged Morbid obesity - Complicating medical care Chronic low back / neck pain - c/w outpatient home regimen GERD - c/w Omeprazole DVT prophylaxis - c/w Heparin Code status: - DNR / DNI VS,Daryl, I+O VS, Daryl, I+O Laboratory Tests 07/28/20 14:31 07/29/20 05:40 Vital Signs Date Time Temp Pulse Resp B/P (MAP) Pulse Ox O2 Delivery O2 Flow Rate FiO2 07/29/20 09:04 64 144/81 07/29/20 08:50 18 07/29/20 06:04 99.3 94 Room Air I&O- Last 24 Hours up to 6 AM 07/29/20 06:00 Intake Total 590 ml Balance 590 ml RACIEL GARCIA MD Jul 29, 2020 11:12
[2020-07-29] MEDS: ACETAMINOPHEN TAB 650MG DOSE (2X325MG) PO PRN (12:31)
[2020-07-29] MEDS: ONDANSETRON 4MG/2ML VIAL IV PRN (17:43)
[2020-07-29 20:34] VITALS: BP 115/63
[2020-07-29 22:44] VITALS: O2SAT 95
[2020-07-30] MEDS: CLINDAMYCIN 900 MG in IV 1 EA IV SCH ×2 (00:23→09:24)
[2020-07-30] MEDS: oxyCODONE 5MG TAB PO PRN ×5 (02:19→21:51)
[2020-07-30 04:24] VITALS: BP 151/85
[2020-07-30] MEDS: LEVOTHYROXINE 50MCG TABLET (0.05MG) PO SCH (05:06)
[2020-07-30] MEDS: HEPARIN SOD (PORCINE) 5000UNITS/ML 1ML VIAL/SYRINGE SC SCH ×3 (05:06→21:23)
[2020-07-30] MEDS: GABAPENTIN 100 MG CAP PO SCH ×3 (05:06→21:25)
[2020-07-30] MEDS: ONDANSETRON 4MG/2ML VIAL IV PRN (05:14)
[2020-07-30 06:42] LABS: BASO % 0.4 % (0.0-1.0); EOS # 0.1 10^3/uL (0.0-0.5); EOS % 1.4 % (0.0-3.0); HEMATOCRIT 38.2 % (36.0-47.0); LYMPH # 0.9 10^3/uL (1.5-5.0); LYMPH % 9.6 % (24.0-44.0); MEAN CORPUSCULAR HEMOGLOBIN 29.2 pg (27.0-33.0); MEAN CORPUSCULAR HGB CONC 31.4 g/dl (32.0-36.5); MEAN CORPUSCULAR VOLUME 92.9 fl (80.0-96.0); MONO # 0.8 10^3/uL (0.0-0.8); MONO % 8.3 % (0.0-5.0); NEUTROPHILS # 7.2 10^3/uL (1.5-8.5); NEUTROPHILS % 79.6 % (36.0-66.0); PLATELET COUNT, AUTOMATED 195 10^3/uL (150-450); RED BLOOD COUNT 4.11 10^6/uL (4.00-5.40); WHITE BLOOD COUNT 9.1 10^3/uL (4.0-10.0)
[2020-07-30 07:09] LABS: CALCIUM LEVEL 8.4 MG/DL (8.8-10.2); CREATININE FOR GFR 1.11 MG/DL (0.55-1.30); GLOMERULAR FILTRATION RATE 52.5 (>45); POTASSIUM SERUM 3.6 MEQ/L (3.5-5.1)
[2020-07-30] MEDS: HumaLOG INSULIN (NovoLOG) PER UNIT SC SCH ×4 (07:30→21:00)
[2020-07-30] MEDS: TIOTROPIUM INHALER/CAPSULE (SPIRIVA) INH SCH (08:00)
[2020-07-30] MEDS ORDERED: CLIN150C14 PO (08:41)
[2020-07-30] MEDS ORDERED: RISATAB3 PO (08:41)
--- NOTE | 2020-07-30 08:52 | REP ---
INDICATION: Evaluate fluid collection of L jaw. COMPARISON: CT without contrast 07/28/2020, CT angio neck 06/17/2020 TECHNIQUE: Axial images through the neck soft tissues with coronal and sagittal reconstructions. Bemdo-aq-hzem from above the hard palate to the aortic arch. FINDINGS: This study again shows soft tissue swelling of the subcutaneous tissues of the left side of the face involving the region about the parotid gland extending inferiorly to the left submandibular region and gland. There is a 2.9 by 2.6 x 2.2 cm hypodense oval lesion within the left masseter muscle spanning the muscle. It does not show air bubbles within. It does show some enlargement from the previous study there is more edema in the subcutaneous soft tissues. I do not see any similar findings on the right normal appearing parotid gland the left parotid shows some edema. There are a few small nodes adjacent to the masseter and parotid on the left. This likely represents reactive adenopathy. The left submandibular gland has become somewhat edematous compared to the previous study but without a gross abscess. Patient is edentulous. Bone windows show the mandible without destructive lesion or erosion in this area. Mastoids and sinuses without acute findings. Nasopharyngeal, oropharyngeal, hypopharyngeal and tracheal airways were unremarkable. Larynx grossly intact. There is a gaseous distention of the esophagus without air-fluid level on today's study. Spondylosis in the cervical spine is unchanged. Orbits and contents symmetric. No mass of the tongue or tongue base. Thyroid lobes symmetric. Lung apices with some underlying fibrosis. IMPRESSION: 1. Slight enlargement of the intramuscular abscess noted in the left masseter muscle measuring 2.9 by 2.6 x 2.2 cm today. Previously 2.6 x 2.2 x 2 cm. Increasing subcutaneous edema small reactive nodes in the subcutaneous tissues about the left parotid and now extending down to the submandibular gland with slight edema around the submandibular gland as well. No involvement of the lateral pterygoid, bony destructive changes or other acute finding. 2. Other chronic changes, including cervical spondylosis, are stable. <Electronically signed by Mike Richter > 07/30/20 [id number]
[2020-07-30] MEDS: LEVEMIR (INSULIN DETEMIR) 1 UNITS/0.01ML SC SCH ×2 (09:00→21:24)
[2020-07-30] MEDS: SPIRONOLACTONE 50 MG TAB PO SCH ×2 (09:24→16:40)
[2020-07-30] MEDS: ATORVASTATIN 20 MG TAB PO SCH (09:24)
[2020-07-30] MEDS: ASPIRIN 81 MG CHEW TABLET PO SCH (09:24)
[2020-07-30] MEDS: MAALOX 30 ML SUSP *UDC PO SCH ×4 (09:24→17:44)
[2020-07-30] MEDS: LACTOBACILLUS ACIDOPHILUS CAP (BACID) PO SCH ×3 (09:24→17:44)
[2020-07-30] MEDS: OMEPRAZOLE 20 MG CAP PO SCH (09:25)
[2020-07-30] MEDS: PROPRANOLOL 20 MG TAB PO SCH ×2 (09:25→21:24)
[2020-07-30] MEDS: DULoxetine 30 MG CAP (CYMBALTA) PO SCH ×2 (09:25→21:24)
[2020-07-30] MEDS: rifAXIMin 550 MG TAB (XIFAXAN) PO SCH ×2 (09:25→21:24)
[2020-07-30] MEDS: TORSEMIDE 10 MG TABLET PO SCH ×2 (09:26→16:40)
[2020-07-30] MEDS: ACETAMINOPHEN TAB 650MG DOSE (2X325MG) PO PRN ×2 (09:29→16:31)
--- NOTE | 2020-07-30 09:44 | DS.PDOC ---
Discharge Summary General Date of Admission Jul 28, 2020 at 15:48 Date of Discharge 07/30/2020 Discharge Summary PROCEDURES PERFORMED DURING STAY: [None]. 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 Patient is a resident of [facility] and was experiencing left cheek swelling and pain for the last 4 days. Patient reported that shes been having difficulty chewing her food. Report some difficulty with swallowing solids and very little difficulty with liquids. Patient was admitted to the hospital service for further evaluation and treatment. ENT was called on consultation. HOSPITAL COURSE: Left masseter muscle fluid collection, less likely 2/2 abscess - Patient has reported worsening left cheek pain and swelling; has had some improvement compared to yesterday - Hemodynamically stable and afebrile - Continuous pulse oximetry has not revealed any hypoxia - s/p leukocytosis with neutrophil predominance; no lactic acidosis - Blood cultures 07/28: Negative at 24 hours - CT neck 07/27: 1. 2.6 cm low-density intramuscular lesion within the left masseter muscle consistent with abscess. This is new from the recent study 06/17/2020. There is surrounding edema in the left parotid and left facial soft tissues. No adenopathy seen. 2. Dilated upper thoracic and cervical esophagus filled with fluid and some air question gastroesophageal reflux. Otherwise negative. - Patient had left masseter muscle aspirated without any removal of fluid by ENT; reported to be unlikely an abscess - MRSA screen positive in the past - Will adjust to oral dosing; s/p Clindamycin IV (Day #3) - Diet has been advanced based on speech therapy recommendations - Dr. 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 - Appears to be compensated - c/w rifaximin, propranolol, torsemide, spironolactone - c/w bowel regimen as ordered Chronic diastolic CHF (Grade 2) - No evidence of exacerbation - c/w Torsemide and Spironolactone with hold parameters IDDM2 with Neuropathy - c/w adjusted dose of long acting insulin - c/w ISS - c/w reduced dose of Gabapentin COPD - No evidence of exacerbation - c/w inhaled therapy as ordered RENEE - non-compliant with CPAP - Will allow use of home CPAP, if available - c/w RENEE protocol DLP - c/w Atorvastatin Hypothyroidism - c/w levothyroxine CKD3 - Creatinine appears to be better than baseline Schizophrenia / Anxiety - c/w Hydroxyzine, Duloxetine Recurrent abdominal wall cellulitis / panniculitis / Chronic venous stasis ulcers - Hx of MRSA infection - Appears to be unchanged Morbid obesity - BMI of 51.5 - Complicating medical care Chronic low back / neck pain - c/w outpatient home regimen; will resume Buprenorphine on discharge GERD - c/w Omeprazole DVT prophylaxis - c/w Heparin DISCHARGE MEDICATIONS: Please see below. ALLERGIES: Please see below. PHYSICAL EXAMINATION ON DISCHARGE: Vitals (See below) General: Lying in bed, appears to be comfortable, AAOx3 HEENT: L cheek swelling; no erythema / warmth / drainage CVS: +S1S2 Lungs: Fair air entry b/l, no appreciable wheezing, rhonchi or rales Abdomen: Soft, ND, NT, Multiple abdominal healing lesions Extremities: Chronic venosus stasis ulcers, - Calf tenderness LABORATORY DATA: Please see below. ACTIVITY: [As tolerated]. DISCHARGE PLAN: Follow up with ENT and PCP on Saturday Remain compliant with treatment plan and medications Return to the ER if you experience any problems DISPOSITION: [facility] CODE STATUS: - DNR / DNI DISCHARGE CONDITION: [Stable]. TIME SPENT ON DISCHARGE: 35 minutes Vital Signs/I&Os Vital Signs Date Time Temp Pulse Resp B/P (MAP) Pulse Ox O2 Delivery O2 Flow Rate FiO2 07/30/20 09:25 66 137/73 07/30/20 07:30 17 07/30/20 04:24 98.6 96 Room Air I&O- Last 24 Hours up to 6 AM 07/30/20 06:00 Intake Total 1000 ml Output Total 1000 ml Balance 0 ml Laboratory Data Labs 24H Laboratory Tests 2 07/29/20 11:20: Bedside Glucose (Misc Panel) 110 07/29/20 16:51: Bedside Glucose (Misc Panel) 117H 07/29/20 20:44: Bedside Glucose (Misc Panel) 160H 07/30/20 06:30: Immature Granulocyte % (Auto) 0.7, Neutrophils (%) (Auto) 79.6H, Lymphocytes (%) (Auto) 9.6L, Monocytes (%) (Auto) 8.3H, Eosinophils (%) (Auto) 1.4, Basophils (%) (Auto) 0.4, Neutrophils # (Auto) 7.2, Lymphocytes # (Auto) 0.9L, Monocytes # (Auto) 0.8, Eosinophils # (Auto) 0.1, Basophils # (Auto) 0.0, Nucleated Red Blood Cells % (auto) 0.0, Anion Gap 5L, Glomerular Filtration Rate 52.5, Calcium Level 8.4L, Magnesium Level 2.0 CBC/BMP Laboratory Tests 07/30/20 06:30 FSBS Laboratory Tests Test 07/29/20 11:20 07/29/20 16:51 07/29/20 20:44 Range/Units Bedside Glucose (Misc Panel) 110 117 160 80-115 MG/DL Microbiology Microbiology 07/28/20 Blood Culture - Preliminary, Resulted No growth after 24 hours . All specim... 07/28/20 Blood Culture - Preliminary, Resulted No growth after 24 hours . All specim... Discharge Medications Scheduled Aluminum/Magnesium/Simeth (Mag-Al Plus Suspension) 30 Ml Oral.susp, 30 ML PO AC, (Reported) Aspirin (Aspirin) 81 Mg Tab.chew, 81 MG PO DAILY, (Reported) Atorvastatin Calcium (Atorvastatin Calcium) 40 Mg Tablet, 40 MG PO DAILY, (Reported) Buprenorphine (Butrans) 10 Mcg/Hr Patch.tdwk, 1 PATCH TOP QWEEK, (Reported) EVERY SATURDAY Clindamycin Hcl (Clindamycin HCl) 150 Mg Capsule, 3 CAP PO TID Duloxetine Hcl (Cymbalta) 30 Mg Capsule.dr, 30 MG PO BID, (Reported) Gabapentin (Gabapentin) 300 Mg Capsule, 300 MG PO TID, (Reported) 0500, 1300, 2100 Insulin Glargine (Lantus) 100 Unit/1 Ml Vial, 60 UNITS SC DAILY, (Reported) Insulin Glargine (Lantus) 100 Unit/1 Ml Vial, 55 UNITS SC QHS, (Reported) L.acidoph/L.bulg/B.bif/S.therm (Leny-Bid Caplet) 1 Each Tablet, 1 EA PO WM Levothyroxine Sodium (Levoxyl) 50 Mcg Tablet, 50 MCG PO DAILY, (Reported) Omeprazole (Omeprazole) 40 Mg Capsule.dr, 40 MG PO DAILY, (Reported) Potassium Chloride (Potassium Chloride) 10 Meq Tab.er.prt, 10 MEQ PO TID, (Reported) Propranolol HCl (Propranolol HCl) 20 Mg Tablet, 20 MG PO BID, (Reported) Rifaximin (Xifaxan) 550 Mg Tablet, 550 MG PO BID, (Reported) Spironolactone (Spironolactone) 50 Mg Tablet, 50 MG PO BID, (Reported) 0800 & 1700 Tiotropium [place] (Spiriva) 18 Mcg Cap.w.dev, 1 INHALATION INH DAILY, (Reported) Torsemide (Torsemide) 10 Mg Tablet, 10 MG PO BID, (Reported) 0800 & 1400 Scheduled PRN Acetaminophen (Tylenol) 325 Mg Tablet, 650 MG PO Q4H PRN for PAIN / FEVER, (Reported) Albuterol Sulf (Albuterol Sulfate) 2.5 Mg/3 Ml Vial.neb, 2.5 MG INH Q2H PRN for SOB/WHEEZING, (Reported) Bisacodyl (Dulcolax) 10 Mg Supp.rect, 10 MG IN DAILY PRN for CONSTIPATION, (Reported) Diphenhydramine HCl (Diphenhydramine HCl) 25 Mg Capsule, 25 MG PO Q6H PRN for ITCHING, (Reported) Eucalyptus/Menthol (Cough Drops) 1 Each Lozenge, 1 LOZENGE MT Q1H PRN for COUGH, (Reported) Hydroxyzine Pamoate (Hydroxyzine Pamoate) 25 Mg Capsule, 25 MG PO QID PRN for ANXIETY, (Reported) Menthol (Biofreeze) 118 Ml Gel..ml., 1 DOSE EXT Q4H PRN for PAIN, (Reported) APPLY TO PAINFUL JOINTS AND MUSCLES Milk Of Magnesia (Milk of Magnesia) 2,400 Mg/10 Ml Oral.susp, 10 ML PO DAILY PRN for CONSTIPATION, (Reported) Ondansetron HCl (Zofran) 4 Mg Tablet, 4 MG PO Q6H PRN for NAUSEA, (Reported) Oxycodone HCl (Oxycodone HCl) 10 Mg Tablet, 10 MG PO Q4H PRN for PAIN LEVEL 7- 10, (Reported) Sodium Phosphate,[place]-Dibasic (Enema) 133 Ml Enema, 1 EMANUEL IN DAILY PRN for CONSTIPATION, (Reported) Allergies Coded Allergies: Penicillins (Verified Allergy, Intermediate, HIVES, 07/27/19) Quinolones (Verified Allergy, Intermediate, HIVES, 07/08/20) ibuprofen (Verified Allergy, Mild, RASH, 07/08/20) RACIEL GARCIA MD Jul 30, 2020 09:44
[2020-07-30] MEDS ORDERED: PILL CUTTER 1 EACH XX PRN (11:00)
[2020-07-30 11:10] LABS: C REACTIVE PROTEIN QUANTITATIV 13.4 MG/DL (0.00-0.30)
[2020-07-30 11:10] LABS: C REACTIVE PROTEIN QUANTITATIV 12.5 MG/DL (0.00-0.30)
[2020-07-30] MEDS: CLINDAMYCIN 150MG CAPSULE PO SCH ×3 (11:26→21:24)
[2020-07-30] MEDS: hydrOXYzine 25 MG TAB PO PRN (21:25)
[2020-07-31] MEDS: ACETAMINOPHEN TAB 650MG DOSE (2X325MG) PO PRN ×2 (00:10→13:18)
[2020-07-31] MEDS: oxyCODONE 5MG TAB PO PRN (02:16)
[2020-07-31] MEDS: GABAPENTIN 100 MG CAP PO SCH ×3 (05:35→21:24)
[2020-07-31] MEDS: LEVOTHYROXINE 50MCG TABLET (0.05MG) PO SCH (05:35)
[2020-07-31] MEDS: HEPARIN SOD (PORCINE) 5000UNITS/ML 1ML VIAL/SYRINGE SC SCH ×3 (05:35→21:25)
[2020-07-31 06:00] VITALS: BP 165/79
[2020-07-31 07:23] LABS: BASO # 0.1 10^3/uL (0.0-0.2); BASO % 0.4 % (0.0-1.0); EOS # 0.1 10^3/uL (0.0-0.5); EOS % 0.7 % (0.0-3.0); HEMATOCRIT 41.8 % (36.0-47.0); HEMOGLOBIN 13.2 g/dl (12.0-15.5); LYMPH # 0.9 10^3/uL (1.5-5.0); LYMPH % 8.1 % (24.0-44.0); MEAN CORPUSCULAR HEMOGLOBIN 29.3 pg (27.0-33.0); MEAN CORPUSCULAR HGB CONC 31.6 g/dl (32.0-36.5); MEAN CORPUSCULAR VOLUME 92.9 fl (80.0-96.0); MONO # 1.1 10^3/uL (0.0-0.8); MONO % 9.5 % (0.0-5.0); NEUTROPHILS # 9.2 10^3/uL (1.5-8.5); NEUTROPHILS % 80.7 % (36.0-66.0); PLATELET COUNT, AUTOMATED 172 10^3/uL (150-450); WHITE BLOOD COUNT 11.5 10^3/uL (4.0-10.0)
[2020-07-31] MEDS: HumaLOG INSULIN (NovoLOG) PER UNIT SC SCH ×4 (07:30→21:00)
[2020-07-31 07:59] LABS: CALCIUM LEVEL 8.7 MG/DL (8.8-10.2); CREATININE FOR GFR 1.25 MG/DL (0.55-1.30); GLOMERULAR FILTRATION RATE 45.8 (>45); MAGNESIUM LEVEL 2.1 MG/DL (1.8-2.4); POTASSIUM SERUM 3.7 MEQ/L (3.5-5.1)
[2020-07-31 08:04] VITALS: BP 138/73
[2020-07-31] MEDS: TIOTROPIUM INHALER/CAPSULE (SPIRIVA) INH SCH (08:39)
[2020-07-31] MEDS: MAALOX 30 ML SUSP *UDC PO SCH ×3 (09:00→17:34)
[2020-07-31] MEDS: MEROPENEM INJ 1 GM in IV 1 EA IV SCH ×2 (09:00→16:33)
[2020-07-31] MEDS: rifAXIMin 550 MG TAB (XIFAXAN) PO SCH ×2 (09:00→21:11)
[2020-07-31] MEDS: MORPHINE 2 MG/ML 1ML VIAL (J2270) IV PRN ×2 (09:00→13:12)
[2020-07-31] MEDS: DULoxetine 30 MG CAP (CYMBALTA) PO SCH ×2 (09:00→21:11)
[2020-07-31] MEDS: LEVEMIR (INSULIN DETEMIR) 1 UNITS/0.01ML SC SCH ×2 (09:00→21:25)
[2020-07-31] MEDS: ATORVASTATIN 20 MG TAB PO SCH (09:01)
[2020-07-31] MEDS: LACTOBACILLUS ACIDOPHILUS CAP (BACID) PO SCH ×3 (09:01→17:34)
[2020-07-31] MEDS: OMEPRAZOLE 20 MG CAP PO SCH (09:01)
--- NOTE | 2020-07-31 09:01 | IPNPDOC ---
Text Note Date of Service The patient was seen on 07/31/20. 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 Patient is a resident of [facility] and was experiencing left cheek swelling and pain for the last 4 days. Patient reported that shes been having difficulty chewing her food. Report some diffic ulty with swallowing solids and very little difficulty with liquids. Patient was admitted to the hospital service for further evaluation and treatment. ENT was called on consultation. Patient was seen and examined at the bedside. Patient reports that her left cheek appears to be worsening. Shouldn't reports pain is progressing down to her chin. Patient reports no significant shortness of breath, chest pain or palpitations. Has not experience any nausea, vomiting, abdominal pain or diarrhea. Objective: Vitals (See below) General: Lying in bed, reports pain in L check, AAOx3 HEENT: Left cheek with swelling, warmth and mild erythema can be noted, tracking down to her chin CVS: +S1S2 Lungs: Fair air entry b/l, no appreciable wheezing or rhonchi, crackles bilaterally Abdomen: Soft, nondistended and nontender, obese, Multiple abdominal healing lesions Extremities: No pitting edema, Chronic venosus stasis ulcers, - Calf tenderness Imaging: - CT neck 07/27: 1. 2.6 cm low-density intramuscular lesion within the left masseter muscle consistent with abscess. This is new from the recent study 06/17/2020. There is surrounding edema in the left parotid and left facial soft tissues. No adenopathy seen. 2. Dilated upper thoracic and cervical esophagus filled with fluid and some air question gastroesophageal reflux. Otherwise negative. - CT neck 07/30: 1. Slight enlargement of the intramuscular abscess noted in the left masseter muscle measuring 2.9 by 2.6 x 2.2 cm today. Previously 2.6 x 2.2 x 2 cm. Increasing subcutaneous edema small reactive nodes in the subcutaneous tissues about the left parotid and now extending down to the submandibular gland with slight edema around the submandibular gland as well. No involvement of the lateral pterygoid, bony destructive changes or other acute finding. 2. Other chronic changes, including cervical spondylosis, are stable. Assessment and plan: Left masseter muscle fluid collection, less likely 2/2 abscess - Morning patient has reported progression of her symptoms - Physical with evidence of cellulitis - Hemodynamically stable and afebrile - Continuous pulse oximetry has not revealed any hypoxia - Leukocytosis this morning; CRP trending up / No lactic acidosis - Blood cultures 07/28: Negative at 48 hours - Will check MRSA screen again / Will check anti-streptolysin antibodies - Imaging noted to have progression - Patient had left masseter muscle aspirated without any removal of fluid by ENT; reported to be unlikely an abscess - MRSA screen positive in the past - Will advance antibiotics to broad spectrum with Vancomycin and Zosyn; Will DC Clindamycin (Antibiotic day #4) - Diet has been advanced based on speech therapy recommendations - Dr. 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 - Appears to be compensated - c/w rifaximin, propranolol, torsemide, spironolactone - c/w bowel regimen as ordered Chronic diastolic CHF (Grade 2) - Mild crackles noted bilaterally - Will check CXR - c/w Torsemide and Spironolactone with hold parameters IDDM2 with Neuropathy - c/w adjusted dose of long acting insulin - c/w ISS - c/w reduced dose of Gabapentin COPD - No evidence of exacerbation - c/w inhaled therapy as ordered RENEE - non-compliant with CPAP - Will allow use of home CPAP, if available - c/w RENEE protocol DLP - c/w Atorvastatin Hypothyroidism - c/w levothyroxine CKD3 - Creatinine appears to be better than baseline Schizophrenia / Anxiety - c/w Hydroxyzine, Duloxetine Recurrent abdominal wall cellulitis / panniculitis / Chronic venous stasis ulcers - Hx of MRSA infection - Appears to be unchanged Morbid obesity - BMI of 51.5 - Complicating medical care Chronic low back / neck pain - c/w outpatient home regimen; will resume Buprenorphine on discharge GERD - c/w Omeprazole DVT prophylaxis - c/w Heparin Code Status: - DNR / DNI Disposition: - Will advance antibiotics - Will have ENT re-evaluate VS,Fishbone, I+O VS, Fishbone, I+O Laboratory Tests 07/31/20 07:15 Vital Signs Date Time Temp Pulse Resp B/P (MAP) Pulse Ox O2 Delivery O2 Flow Rate FiO2 07/31/20 08:04 73 22 138/73 (94) 96 07/31/20 06:00 98.4 Room Air I&O- Last 24 Hours up to 6 AM 07/31/20 06:00 Intake Total 960 ml Output Total 650 ml Balance 310 ml RACIEL GARCIA MD Jul 31, 2020 09:01
[2020-07-31] MEDS: PROPRANOLOL 20 MG TAB PO SCH ×2 (09:02→21:24)
[2020-07-31] MEDS: ASPIRIN 81 MG CHEW TABLET PO SCH (09:02)
--- NOTE | 2020-07-31 09:30 | REP ---
INDICATION: Crackles. COMPARISON: AP chest 07/10/2020, CT 06/18/2020 TECHNIQUE: AP portable erect chest. FINDINGS: The lung calderón are less well inflated than on the previous study. Some patchy subsegmental atelectasis or early infiltrate just above the left diaphragm. Mild prominence of interstitial markings throughout. No gross cardiomegaly but some venous hypertension suggested. No visible effusion, dense consolidation with air bronchograms, widening of the mediastinum or aortic abnormality. Airway intact. There is dilated esophagus filled with air in the upper chest. Bones show degenerative changes in the spine and posttraumatic changes in the proximal right humerus, stable. IMPRESSION: 1. Some patchy subsegmental atelectasis or early infiltrate just above the left diaphragm. 0 levels of lung inflation with some underlying interstitial the changes and venous hypertension. No edema or definite effusion. 2. Heart size normal for this degree of inflation and portable technique. 3. The aorta is unchanged without gross aneurysm. 4. Air distention of the upper esophagus. 5. Degenerative changes in the spine and posttraumatic changes right shoulder, stable. <Electronically signed by Mike Richter > 07/31/20 [id number]
--- NOTE | 2020-07-31 10:18 | IPNPDOC ---
Text Note Date of Service The patient was seen on 07/31/20. NOTE Patient appears to be worsening on antibiotic therapy Exam shows extenstion of induration and tenderness externally There is no intraoral swelling. I cannot appreciated any fluctuance but it may be that this is beneath the Parotid gland and not palpable. The CT suggests this too. But it is an unusual presentation. I would consider CT guided needle aspiration of this CT lesion as it is not clear that this has liquified yet and is drainable. If this is not possible, then will consider taking her to OR to explore the neck and drain it. She should be made NPO after MN She should continue IV abx Let me know what CT Radiology says about the needle aspiration procedure. VS,Daryl, I+O VS, Pke, I+O Laboratory Tests 07/31/20 07:15 Vital Signs Date Time Temp Pulse Resp B/P (MAP) Pulse Ox O2 Delivery O2 Flow Rate FiO2 07/31/20 09:02 73 138/73 07/31/20 09:00 14 07/31/20 08:04 96 07/31/20 06:00 98.4 Room Air I&O- Last 24 Hours up to 6 AM 07/31/20 06:00 Intake Total 960 ml Output Total 650 ml Balance 310 ml DARIEL VERA MD Jul 31, 2020 10:18
[2020-07-31] MEDS: VANCOMYCIN HCL 1,000 MG, VIAL MATE ADAPTER 1 EACH in D5W 250 ML IV SCH ×2 (10:58→17:34)
[2020-07-31] MEDS: dexameTHASONE 4 MG/ML 1ML VIAL (J1100 PER 1MG) IV SCH ×2 (16:33→21:26)
[2020-07-31] MEDS: MORPHINE 4 MG/ML 1ML VIAL/SYRINGE (J2270) IV PRN ×2 (16:34→21:27)
[2020-07-31] MEDS: SPIRONOLACTONE 50 MG TAB PO SCH (16:34)
[2020-07-31] MEDS: TORSEMIDE 10 MG TABLET PO SCH (16:35)
[2020-07-31 22:00] VITALS: BP 148/86
[2020-08-01] MEDS: MEROPENEM INJ 1 GM in IV 1 EA IV SCH ×3 (00:32→16:52)
[2020-08-01] MEDS: MORPHINE 4 MG/ML 1ML VIAL/SYRINGE (J2270) IV PRN ×4 (00:33→22:40)
[2020-08-01] MEDS: VANCOMYCIN HCL 1,000 MG, VIAL MATE ADAPTER 1 EACH in D5W 250 ML IV SCH ×2 (01:37→09:41)
[2020-08-01] MEDS: dexameTHASONE 4 MG/ML 1ML VIAL (J1100 PER 1MG) IV SCH ×4 (05:05→22:39)
[2020-08-01] MEDS: GABAPENTIN 100 MG CAP PO SCH ×3 (05:05→22:32)
[2020-08-01] MEDS: LEVOTHYROXINE 50MCG TABLET (0.05MG) PO SCH (05:06)
[2020-08-01] MEDS: HEPARIN SOD (PORCINE) 5000UNITS/ML 1ML VIAL/SYRINGE SC SCH ×3 (05:06→22:39)
[2020-08-01 06:00] VITALS: BP 166/82
[2020-08-01] MEDS: TIOTROPIUM INHALER/CAPSULE (SPIRIVA) INH SCH (07:22)
[2020-08-01 08:34] LABS: BASO % 0.2 % (0.0-1.0); HEMATOCRIT 40.8 % (36.0-47.0); HEMOGLOBIN 13.2 g/dl (12.0-15.5); LYMPH # 0.7 10^3/uL (1.5-5.0); LYMPH % 4.6 % (24.0-44.0); MEAN CORPUSCULAR HEMOGLOBIN 29.7 pg (27.0-33.0); MEAN CORPUSCULAR HGB CONC 32.4 g/dl (32.0-36.5); MEAN CORPUSCULAR VOLUME 91.9 fl (80.0-96.0); MONO # 0.2 10^3/uL (0.0-0.8); MONO % 1.4 % (0.0-5.0); NEUTROPHILS # 13.1 10^3/uL (1.5-8.5); NEUTROPHILS % 92.9 % (36.0-66.0); PLATELET COUNT, AUTOMATED 220 10^3/uL (150-450); RED BLOOD COUNT 4.44 10^6/uL (4.00-5.40); WHITE BLOOD COUNT 14.1 10^3/uL (4.0-10.0)
[2020-08-01] MEDS: MAALOX 30 ML SUSP *UDC PO SCH ×3 (08:57→16:51)
[2020-08-01] MEDS: SPIRONOLACTONE 50 MG TAB PO SCH ×2 (08:57→16:51)
[2020-08-01] MEDS: ASPIRIN 81 MG CHEW TABLET PO SCH (08:57)
[2020-08-01] MEDS: LACTOBACILLUS ACIDOPHILUS CAP (BACID) PO SCH ×3 (08:57→17:26)
[2020-08-01] MEDS: PROPRANOLOL 20 MG TAB PO SCH ×2 (08:57→22:36)
[2020-08-01] MEDS: ATORVASTATIN 20 MG TAB PO SCH (08:57)
[2020-08-01] MEDS: OMEPRAZOLE 20 MG CAP PO SCH (08:58)
[2020-08-01] MEDS: TORSEMIDE 10 MG TABLET PO SCH ×2 (08:58→16:52)
[2020-08-01] MEDS: DULoxetine 30 MG CAP (CYMBALTA) PO SCH ×2 (08:58→22:37)
[2020-08-01] MEDS: rifAXIMin 550 MG TAB (XIFAXAN) PO SCH ×2 (08:58→22:32)
[2020-08-01] MEDS: HumaLOG INSULIN (NovoLOG) PER UNIT SC SCH ×4 (08:59→21:00)
[2020-08-01] MEDS: LEVEMIR (INSULIN DETEMIR) 1 UNITS/0.01ML SC SCH ×2 (08:59→22:39)
[2020-08-01 09:01] LABS: C REACTIVE PROTEIN QUANTITATIV 17.7 MG/DL (0.00-0.30); CALCIUM LEVEL 8.9 MG/DL (8.8-10.2); CREATININE FOR GFR 1.09 MG/DL (0.55-1.30); GLOMERULAR FILTRATION RATE 53.6 (>45); MAGNESIUM LEVEL 2.6 MG/DL (1.8-2.4); POTASSIUM SERUM 4.2 MEQ/L (3.5-5.1)
[2020-08-01 10:33] LABS: VANCOMYCIN LEVEL TROUGH 29.8 UG/ML (10.0-20.0)
[2020-08-01] MEDS ORDERED: MIDAZOLAM INJ 2MG/2ML VIAL (J2250 PER 1MG) As Ordered ONE (10:51)
[2020-08-01] MEDS ORDERED: fentaNYL 100 MCG/2 ML INJECTION (J3010) As Ordered ONE ×2 (10:51→12:12)
[2020-08-01] MEDS ORDERED: ROCURONIUM BROMIDE 50 MG/5 ML VIAL As Ordered ONE (10:52)
[2020-08-01] MEDS ORDERED: LIDOCAINE 2% 100MG/5ML SDV (FOR ANES.) As Ordered ONE (10:52)
[2020-08-01] MEDS ORDERED: dexameTHASONE 4 MG/ML 1ML VIAL (J1100 PER 1MG) As Ordered ONE (10:52)
[2020-08-01] MEDS ORDERED: ONDANSETRON 4MG/2ML VIAL As Ordered ONE (10:52)
[2020-08-01] MEDS ORDERED: propofoL 200 MG/20 ML VIAL As Ordered ONE (10:52)
[2020-08-01] MEDS ORDERED: LIDOCAINE W/EPINEPHRINE 1% 20ML VIAL As Ordered ONE (11:10)
[2020-08-01] MEDS ORDERED: ACETAMINOPHEN 1000MG 100ML IV BTL (OFIRMEV) (J0131 PER 10MG) As Ordered ONE (12:13)
[2020-08-01] MEDS ORDERED: SUGAMMADEX SODIUM 500 MG/5 ML VIAL (BRIDION) As Ordered ONE (12:21)
[2020-08-01] MEDS ORDERED: oxyCODONE 5MG TAB PO PRN (13:00)
[2020-08-01] MEDS ORDERED: LR 1,000 ML IV SCH (13:00)
[2020-08-01] MEDS ORDERED: ONDANSETRON 4MG/2ML VIAL IV PRN (13:00)
[2020-08-01] MEDS ORDERED: fentaNYL 100 MCG/2 ML INJECTION (J3010) IV PRN (13:00)
[2020-08-01 14:30] VITALS: BP 122/75
--- NOTE | 2020-08-01 16:26 | IPNPDOC ---
Text Note Date of Service The patient was seen on 08/01/20. 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 Patient is a resident of [facility] and was experiencing left cheek swelling and pain for the last 4 days. Patient reported that shes been having difficulty chewing her food. Report some difficulty with swallowing solids and very little difficulty with liquids. Patient was admitted to the hospital service for further evaluation and treatment. ENT was called on consultation. Patient seen today at bed side. She reports still having pain and tenderness, noted some erythema in the region. She reports her pain radiating to her is less then yesterday. She denies having shortness of breath, chest pain, palpitations, nausea, vomiting, diarrhea. But reports having mild abdominal pain. Objective: Vitals: General: Patient was awake,alert and oriented, Lying in bed, she reports pain in left cheek. HEENT: Swelling in the left cheek and pain and tenderness on palpation over the cheek lateral neck extending to the back of neck. She denies any radiation of pain today. Cardiovascular: S1, S2, normal rhythm, no murmur, rub, or gallop. Respiratory: Chest is clear to auscultation bilaterally, No rhonchi, wheezes or rubs. Abdomen: Soft, bowel sounds positive, no bruits. mild Tenderness on palpation. Extremities: No edema, ulcers noted on left leg, reports to have tenderness on palpation. Central nervous system (INDIGO MIXER): Awake, alert and fully oriented. Skin: Have ulceration and pigmentation in her b\l legs. Imaging: Portable Cxray, 07/31/2020: SOme pathcy subsegmental atelectasis or early infilt ration just above the left diaphragm. 0 level of lung inflation with some underlying interstitial the changes and venous hypertension. No edema or definite effusion. Heart sounds normal for this degree of inflation and portable technique.The aorta is unchanged without gross aneurysm. Air distention of the upper esophagus. Degenerative changes in the spine and posttraumatic changes right shoulder, stable. CT neck without contrast: 07/30/2020: reported as slight enlargement of the intramuscular abscess reported in the left masseter muscle measuring 2.9X 2.6X 2.2 cm today. perviously 2.6 X 2.2 X 2cm. increasing subcutaneous edema small reactive nodes in the subcutaneous tissue above the left parotid and now extending down to the submandibular gland with slight edema around the submandibular gland as well. No involvement of the lateral pterygoid, bony destructive changes or other acute finding. Other chronic changes, including cervical spondylosis, are stable. Assessment: 64-year-old female with multiple comorbidities coming from [facility] for left side cheek pain. On further imaging found her to have left masseter intramuscular abscess. Left masseter muscles abscess/ fluid collection: - Patient reports to be in pain and mild erythema. - IR was consulted to drain the fluid/abscess if that is not possible then ENT , Dr. Ruiz will take her to surgery and will try to drain. - Patient has leukocytosis 14.1, CRP 17.7( yesterday 15) - Will continue vancomycin and meropenem day 2. Her vancomycin trough was high so we'll hold vancomycin for now. She has a history of MRSA positive. -Blood cultures 07/28 negative at 48 hours. - Lactic acid yesterday was 1.4, anti-streptolysin O antibody 162. - Patient was taken to surgery by ENT for needle aspiration, incision and dra luis of the left parotid abscess and a drain placed. And aspirated content was sent to Gram stain and culture. 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 Chronic diastolic CHF, grade 2: - Mild crackles noted bilaterally. - Continue torsemide and spironolactone with holding parameters. - Continue aspirin 81 mg IDDM2 with neuropathy: - Continue adjusting dose of long-acting insulin. - C/W ISS - C/W reduced dose of gabapentin COPD: - No evidence of exacerbation - Continue inhaled therapy as ordered. RENEE: - Non-compliant with CPAP. - will allow use of home CPAP, if avaliable. - C/W RENEE protocol. Dyslipidemia: - Continue atorvastatin Hypothyroidism: - Continue levothyroxine CKD 3: - Creatinine appears to be better than baseline. Schizophrenia/anxiety: - Continue hydroxyzine and duloxetine. Recurrent abdominal wall cellulitis/plan cellulitis/chronic venous stasis ulcers: - History of MRSA infection - Appears to be unchanged Morbid obesity: - BMI of 51.5 - Complicating medical care Chronic low back pain/neck pain: - Continue outpatient wound care, will resume buprenorphine on discharge. GERD Continue omeprazole DVT prophylaxis: Continue heparin VS,Fishbone, I+O VS, Fishbone, I+O Laboratory Tests 08/01/20 08:10 Vital Signs Date Time Temp Pulse Resp B/P (MAP) Pulse Ox O2 Delivery O2 Flow Rate FiO2 08/01/20 08:57 60 166/82 08/01/20 06:00 99.4 20 94 Room Air I&O- Last 24 Hours up to 6 AM 08/01/20 06:00 Intake Total 1800 ml Output Total 100 ml Balance 1700 ml GME ATTESTATION GME ATTESTATION My faculty preceptor for this patient encounter was physically present during the encounter and was fully available. All aspects of the patient interview, examination, medical decision making process, and medical care plan development were reviewed and approved by the faculty preceptor. The faculty preceptor is aware and concurs with the plan as stated in the body of this note and will attest to such by his/her cosignature. ATTENDING NOTE I, Charissa Ellison, have independently examined this patient and performed my own physical exam, as well as reviewed the documentation and edited where necessary. I have discussed in detail with the resident / student the findings and plan of treatment as documented by the resident / student and edited their note. I agree with their findings and treatment plan and have edited their documentation. I will continue to follow the patient during this hospital stay. Sterling Man MD Aug 01, 2020 11:11 CHARISSA ELLISON MD Aug 01, 2020 17:32
[2020-08-01 21:00] VITALS: O2SAT 97
[2020-08-01 22:00] VITALS: BP 130/77
[2020-08-02] MEDS: ACETAMINOPHEN TAB 650MG DOSE (2X325MG) PO PRN ×2 (00:28→21:16)
[2020-08-02] MEDS: MEROPENEM INJ 1 GM in IV 1 EA IV SCH ×3 (00:28→16:53)
[2020-08-02] MEDS: dexameTHASONE 4 MG/ML 1ML VIAL (J1100 PER 1MG) IV SCH ×4 (05:07→21:20)
[2020-08-02] MEDS: HEPARIN SOD (PORCINE) 5000UNITS/ML 1ML VIAL/SYRINGE SC SCH ×3 (05:08→21:17)
[2020-08-02] MEDS: LEVOTHYROXINE 50MCG TABLET (0.05MG) PO SCH (05:08)
[2020-08-02] MEDS: GABAPENTIN 100 MG CAP PO SCH ×3 (05:08→21:16)
[2020-08-02] MEDS: MORPHINE 4 MG/ML 1ML VIAL/SYRINGE (J2270) IV PRN ×5 (05:08→21:21)
[2020-08-02 06:00] VITALS: BP 129/70
[2020-08-02 07:05] LABS: BASO % 0.2 % (0.0-1.0); HEMATOCRIT 39.2 % (36.0-47.0); HEMOGLOBIN 12.7 g/dl (12.0-15.5); LYMPH # 0.7 10^3/uL (1.5-5.0); LYMPH % 4.8 % (24.0-44.0); MEAN CORPUSCULAR HGB CONC 32.4 g/dl (32.0-36.5); MEAN CORPUSCULAR VOLUME 92.7 fl (80.0-96.0); MONO # 0.4 10^3/uL (0.0-0.8); MONO % 2.7 % (0.0-5.0); NEUTROPHILS # 14.1 10^3/uL (1.5-8.5); NEUTROPHILS % 91.3 % (36.0-66.0); PLATELET COUNT, AUTOMATED 243 10^3/uL (150-450); RED BLOOD COUNT 4.23 10^6/uL (4.00-5.40); WHITE BLOOD COUNT 15.4 10^3/uL (4.0-10.0)
--- NOTE | 2020-08-02 07:26 | RO ---
DATE OF OPERATION: 08/01/2020 PREOPERATIVE DIAGNOSIS: Parotid and masseter muscle abscess. POSTOPERATIVE DIAGNOSIS: Parotid and masseter muscle abscess. PROCEDURE: Needle localization of masseter abscess with incision and drainage and placement of drain into abscess cavity. INDICATIONS: This is a 64-year-old custodial patient with diabetes who has been admitted to the hospital with progressive swelling of the left parotid facial region. Three days ago in the office, an attempt to needle aspiration of the area seen on CT was unsuccessful. She was placed on IV antibiotics and seemed to be doing well initially; but ultimately, developed increasing swelling, pain, and leukocytosis. Repeat CT scanning demonstrated the persistence of what appeared to be a soft tissue abscess really in the masseter muscle more than the parotid gland. In addition, there was edema and swelling over the parotid gland and subcutaneous tissues. DESCRIPTION OF PROCEDURE: Satisfactory general endotracheal anesthesia administered. The head and neck were prepped and draped in the usual sterile fashion. With an 18-gauge needle and 10 mL syringe, several attempts were made to localize this abscess. Since it was really beneath the parotid gland per se, approaching it from anteriorly and superiorly the needle was placed through the skin and through the parotid gland, which was easy to palpate and then finally after several attempts, one pass of the needle did localize the return of pus into the syringe and a total of 6.5 mL of pus was evacuated. The needle was left in place and its orientation was observed, and a 15-blade was used to make an incision over the needle and then, the subcutaneous tissue was divided sharply. Using a blunt hemostat, the area was carefully dissected and spread. Bipolar cautery was used to coagulate the small vessels encountered. This was carried down to the anterior border of the ascending ramus of the mandible and then using that as a landmark, hemostat was gently teased inferiorly along the mandible with the release of some more pus. A [place] drain was then placed 0.25 size and hemostat then replaced back down into the trace, which had been created previously. This was sewn in place with 2-0 silk suture. A pressure dressing was applied to the gland with a mastoid type dressing. She tolerated the procedure well and was sent to recovery in satisfactory condition. She will be seen back in the office after she is discharged from the hospital. She will be followed in the hospital. ALTAGRACIA
[2020-08-02 07:30] LABS: C REACTIVE PROTEIN QUANTITATIV 10.9 MG/DL (0.00-0.30); CALCIUM LEVEL 8.6 MG/DL (8.8-10.2); CREATININE FOR GFR 1.16 MG/DL (0.55-1.30); GLOMERULAR FILTRATION RATE 49.9 (>45); MAGNESIUM LEVEL 2.5 MG/DL (1.8-2.4); POTASSIUM SERUM 4.4 MEQ/L (3.5-5.1)
[2020-08-02] MEDS: TIOTROPIUM INHALER/CAPSULE (SPIRIVA) INH SCH (07:38)
[2020-08-02] MEDS: MAALOX 30 ML SUSP *UDC PO SCH ×3 (08:02→18:04)
[2020-08-02] MEDS: ATORVASTATIN 20 MG TAB PO SCH (08:04)
[2020-08-02] MEDS: OMEPRAZOLE 20 MG CAP PO SCH (08:04)
[2020-08-02] MEDS: ASPIRIN 81 MG CHEW TABLET PO SCH (08:04)
[2020-08-02] MEDS: LACTOBACILLUS ACIDOPHILUS CAP (BACID) PO SCH ×3 (08:04→18:04)
[2020-08-02] MEDS: PROPRANOLOL 20 MG TAB PO SCH ×2 (08:04→21:16)
[2020-08-02] MEDS: SPIRONOLACTONE 50 MG TAB PO SCH ×2 (08:05→18:04)
[2020-08-02] MEDS: HumaLOG INSULIN (NovoLOG) PER UNIT SC SCH ×4 (08:05→21:17)
[2020-08-02] MEDS: TORSEMIDE 10 MG TABLET PO SCH ×2 (08:05→18:00)
[2020-08-02] MEDS: rifAXIMin 550 MG TAB (XIFAXAN) PO SCH ×2 (08:05→21:16)
[2020-08-02] MEDS: DULoxetine 30 MG CAP (CYMBALTA) PO SCH ×2 (08:05→21:16)
[2020-08-02] MEDS: LEVEMIR (INSULIN DETEMIR) 1 UNITS/0.01ML SC SCH ×2 (08:06→21:18)
[2020-08-02] MEDS: VANCOMYCIN HCL 1,000 MG, VIAL MATE ADAPTER 1 EACH in D5W 250 ML IV SCH (10:15)
--- NOTE | 2020-08-02 12:51 | IPNPDOC ---
Text Note Date of Service The patient was seen on 08/02/20. NOTE POD #1 Drainage of subParotid abcess Clinically improved Afebrile Less swelling and pain No trouble swallowing Exam wound much less swollen and tender No erytyema Drain in place. Improved. Continue IV Abx for 24 hours more pending C and S then switch to PO Drain out in AM. VS,Fishbone, I+O VS, Fishbone, I+O Laboratory Tests 08/02/20 06:55 Vital Signs Date Time Temp Pulse Resp B/P (MAP) Pulse Ox O2 Delivery O2 Flow Rate FiO2 08/02/20 09:25 16 08/02/20 08:04 55 129/70 08/02/20 06:00 98.5 94 Room Air I&O- Last 24 Hours up to 6 AM 08/02/20 05:59 Intake Total 1540 ml Output Total 400 ml Balance 1140 ml DARIEL VERA MD Aug 02, 2020 12:51
[2020-08-02 14:00] VITALS: BP 112/58
--- NOTE | 2020-08-02 16:39 | IPNPDOC ---
Text Note Date of Service The patient was seen on 08/02/20. 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 Patient is a resident of [facility] and was experiencing left cheek swelling and pain for the last 4 days. Patient reported that shes been having difficulty chewing her food. Report some difficulty with swallowing solids and very little difficulty with liquids. Patient was admitted to the hospital service for further evaluation and treatment. ENT was called on consultation. Patient seen on bedside. Patient's reports to and still in pain but less than yesterday, she has a Beata drain in place following the surgery yesterday. She reports to have pain to mild touch her left cheek and also on her neck. She denies having shortness of breath, chest pain or palpitation, nausea, vomiting, diarrhea, , abdominal pain. Objective: General: Patient was awake,alert and oriented, Lying in bed, still has pain on left cheek, but decreased from yesterday. HEENT: She reports to have mild pain in her left cheek and neck region on palpation. She denies any radiation of pain. Cardiovascular: S1, S2, normal rhythm, no murmur, rub, or gallop. Respiratory: Chest is clear to auscultation bilaterally, No rhonchi, wheezes or rubs. Abdomen: Soft, bowel sounds positive, no bruits. Extremities: No edema, ulcers noted on legs, reports to have tenderness on palpation. Central nervous system (ORDNANCE ENGINEER): Awake, alert and fully oriented. Skin: Have ulceration and pigmentation in her b\l legs. Imaging: Portable Cxray, 07/31/2020: SOme pathcy subsegmental atelectasis or early infiltration just above the left diaphragm. 0 level of lung inflation with some underlying interstitial the changes and venous hypertension. No edema or definite effusion. Heart sounds normal for this degree of inflation and portable technique.The aorta is unchanged without gross aneurysm. Air distention of the upper esophagus. Degenerative changes in the spine and posttraumatic changes right shoulder, stable. CT neck without contrast: 07/30/2020: reported as slight enlargement of the intramuscular abscess reported in the left masseter muscle measuring 2.9X 2.6X 2.2 cm today. perviously 2.6 X 2.2 X 2cm. increasing subcutaneous edema small reactive nodes in the subcutaneous tissue above the left parotid and now extending down to the submandibular gland with slight edema around the submandibular gland as well. No involvement of the lateral pterygoid, bony destructive changes or other acute finding. Other chronic changes, including cervical spondylosis, are stable. Assessment: 64-year-old female with multiple comorbidities coming from [facility] for left side cheek pain. On further imaging found her to have left masseter intramuscular abscess. Left Parotid/ masseter muscle abscesses: -Patient had a surgery done by Dr. Ruiz ENT and drained the abscess and placed a Beata drain. - Appreciate their input and Continue to follow ENT recommendations. - Will continue IV antibiotics vancomycin and meropenem day 3. Patient has a history of MRSA positive. - Gram stain from the abscess showed staph aureus, we will wait for the cultures and sensitivity to go back to switch her antibiotics to oral based on her sensitivity. - Anaerobic cultures still pending, based on the cultures switching her antibiotics. -Blood cultures on 07/28/2020 were negative. - Leukocytosis WBC 15.4, her CRP is 10.9 came down from 17.7 - Patient's pro-calcitonin was negative. - Patient's pain is managed with Tylenol and morphine. 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 Chronic diastolic CHF, grade 2: - Will continue torsemide 10 mg and spironolactone 50 mg with holding parameters. -Will Continue aspirin 81 mg, atorvastatin 40 mg IDDM 2 with neuropathy: - Patient is on insulin sliding scale - Continue reduced dose of gabapentin 100 MG. - Patient is on 40 units of Levemir COPD: - No evidence of exacerbation - Continue Proventil, Spiriva, Decadron 6 mg RENEE: - Noncompliant with CPAP at home - Patient is not using CPAP at the hospital as she was having pain in her face. - Continue RENEE protocol Dyslipidemia: - Will continue atorvastatin 40 MG Hypothyroidism; - Will continue levothyroxine 50 MCG CKD 3: - Her creatinine today is 1.16 seems to be her baseline Schizophrenia/anxiety: -Will continue hydroxyzine and duloxetine Morbid obesity: -Patient BMI is 51.5, complicating medical care. GERD: Continue omeprazole 40 MG DVT prophylaxis: - Continue heparin 5000 units subcutaneous Attending Note: Patient seen and examined independently. Agree with resident's note. VS,Fishbone, I+O VS, Fishbone, I+O Laboratory Tests 08/02/20 06:55 Vital Signs Date Time Temp Pulse Resp B/P (MAP) Pulse Ox O2 Delivery O2 Flow Rate FiO2 08/02/20 14:00 97.2 79 20 112/58 (76) 96 Room Air I&O- Last 24 Hours up to 6 AM 08/02/20 06:00 Intake Total 1840 ml Output Total 400 ml Balance 1440 ml Sterling Man MD Aug 02, 2020 16:39 ELIZABETH CUMMINGS MD Aug 02, 2020 17:35
[2020-08-02 20:54] VITALS: BP 143/95
[2020-08-02] MEDS: ONDANSETRON 4MG/2ML VIAL IV PRN (21:21)
[2020-08-02] MEDS: hydrOXYzine 25 MG TAB PO PRN (21:31)
[2020-08-02 23:57] VITALS: O2SAT 97
[2020-08-03] MEDS: MEROPENEM INJ 1 GM in IV 1 EA IV SCH ×4 (00:42→23:25)
[2020-08-03] MEDS: MORPHINE 4 MG/ML 1ML VIAL/SYRINGE (J2270) IV PRN ×4 (00:46→21:09)
[2020-08-03] MEDS: dexameTHASONE 4 MG/ML 1ML VIAL (J1100 PER 1MG) IV SCH ×4 (04:46→21:00)
[2020-08-03] MEDS: GABAPENTIN 100 MG CAP PO SCH ×3 (04:46→21:00)
[2020-08-03] MEDS: LEVOTHYROXINE 50MCG TABLET (0.05MG) PO SCH (04:46)
[2020-08-03] MEDS: HEPARIN SOD (PORCINE) 5000UNITS/ML 1ML VIAL/SYRINGE SC SCH ×3 (04:47→21:02)
[2020-08-03 04:50] VITALS: BP 144/87
[2020-08-03 07:05] LABS: BASO % 0.1 % (0.0-1.0); HEMATOCRIT 41.4 % (36.0-47.0); HEMOGLOBIN 13.3 g/dl (12.0-15.5); LYMPH # 0.7 10^3/uL (1.5-5.0); LYMPH % 5.4 % (24.0-44.0); MEAN CORPUSCULAR HEMOGLOBIN 29.8 pg (27.0-33.0); MEAN CORPUSCULAR HGB CONC 32.1 g/dl (32.0-36.5); MEAN CORPUSCULAR VOLUME 92.6 fl (80.0-96.0); MONO # 0.3 10^3/uL (0.0-0.8); MONO % 2.5 % (0.0-5.0); NEUTROPHILS # 11.2 10^3/uL (1.5-8.5); PLATELET COUNT, AUTOMATED 234 10^3/uL (150-450); RED BLOOD COUNT 4.47 10^6/uL (4.00-5.40); WHITE BLOOD COUNT 12.3 10^3/uL (4.0-10.0)
[2020-08-03 07:51] LABS: C REACTIVE PROTEIN QUANTITATIV 5.85 MG/DL (0.00-0.30); CALCIUM LEVEL 8.8 MG/DL (8.8-10.2); CREATININE FOR GFR 1.25 MG/DL (0.55-1.30); GLOMERULAR FILTRATION RATE 45.8 (>45); MAGNESIUM LEVEL 2.5 MG/DL (1.8-2.4); POTASSIUM SERUM 4.6 MEQ/L (3.5-5.1)
[2020-08-03] MEDS: TIOTROPIUM INHALER/CAPSULE (SPIRIVA) INH SCH (08:00)
[2020-08-03] MEDS: rifAXIMin 550 MG TAB (XIFAXAN) PO SCH ×2 (08:23→21:00)
[2020-08-03] MEDS: SPIRONOLACTONE 50 MG TAB PO SCH ×2 (08:23→17:43)
[2020-08-03] MEDS: LACTOBACILLUS ACIDOPHILUS CAP (BACID) PO SCH ×3 (08:23→17:43)
[2020-08-03] MEDS: OMEPRAZOLE 20 MG CAP PO SCH (08:23)
[2020-08-03] MEDS: ASPIRIN 81 MG CHEW TABLET PO SCH (08:23)
[2020-08-03] MEDS: DULoxetine 30 MG CAP (CYMBALTA) PO SCH ×2 (08:23→21:00)
[2020-08-03] MEDS: MAALOX 30 ML SUSP *UDC PO SCH ×3 (08:23→17:43)
[2020-08-03] MEDS: ATORVASTATIN 20 MG TAB PO SCH (08:23)
[2020-08-03] MEDS: TORSEMIDE 10 MG TABLET PO SCH ×2 (08:24→17:47)
[2020-08-03] MEDS: PROPRANOLOL 20 MG TAB PO SCH ×2 (08:24→21:00)
[2020-08-03] MEDS: LEVEMIR (INSULIN DETEMIR) 1 UNITS/0.01ML SC SCH ×2 (08:25→21:01)
[2020-08-03] MEDS: HumaLOG INSULIN (NovoLOG) PER UNIT SC SCH ×4 (08:25→21:01)
[2020-08-03] MEDS: VANCOMYCIN HCL 1,000 MG, VIAL MATE ADAPTER 1 EACH in D5W 250 ML IV SCH (10:45)
[2020-08-03] MEDS ORDERED: SULF1TAB93 PO (12:10)
[2020-08-03 14:00] VITALS: BP 116/67
--- NOTE | 2020-08-03 18:18 | DS.PDOC ---
Discharge Summary General Date of Admission Jul 28, 2020 at 15:48 Date of Discharge 08/03/2020 Primary Care Physician: Tammi Kelsey DO Attending Physician: ELIZABETH CUMMINGS MD Discharge Summary PROCEDURES PERFORMED DURING STAY: None. 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 HISTORY OF PRESENT ILLNESS: The shunt is a 64-year-old female with a past medical history of cirrhosis 2/2 Bustamante, chronic diastolic CHF grade 2, IDDM 2, COPD, RENEE noncompliant with CPAP, CKD3, recurrent abdominal wall cellulitis/ and cellulitis, schizophrenia, no stasis ulcers who presented to the ER with left cheek pain. Patient is a resident of [facility] and was experiencing left cheek pain and swelling since last 4 days. She reports that she had difficulty in chewing the food, swallowing solids and very little difficulty with liquids. Patient was admitted to the hospital service for further evaluation and treatment. ENT was consulted. HOSPITAL COURSE: After admission to the hospital, ENT physician Dr. Ruiz aspir ated without removal of any fluid. Later patient reports that her pain has increased and her swelling has increased. Later IR was consulted for drainage of the collection/abscess which was unsuccessful and later taken to surgery in order to drain the abscess. Dr. Ruiz ENT card to the surgery and drain the abscess and placed a Beata drain, she was on IV antibiotics during the course of hospital stay. And the collection was sent for cultures, and reported back as MRSA positive, no anaerobic growth. Which was sensitive to Bactrim. DISCHARGE MEDICATIONS: Please see below. ALLERGIES: Please see below. PHYSICAL EXAMINATION ON DISCHARGE: VITAL SIGNS: Please see below. General: Patient was awake,alert and oriented, Lying in bed, still has pain on left cheek, but decreased from yesterday. HEENT: She reports to have mild pain in her left cheek and neck region on palpation. She denies any radiation of pain. Cardiovascular: S1, S2, normal rhythm, no murmur, rub, or gallop. Respiratory: Chest is clear to auscultation bilaterally, No rhonchi, wheezes or rubs. Abdomen: Soft, bowel sounds positive, no bruits. Extremities: No edema, ulcers noted on legs, reports to have tenderness on pa lpation. Central nervous system ([employer]): Awake, alert and fully oriented. Skin: Have ulceration and pigmentation in her b\l legs. LABORATORY DATA: Please see below. Imaging: Portable Cxray, 07/31/2020: SOme pathcy subsegmental atelectasis or early infiltration just above the left diaphragm. 0 level of lung inflation with some underlying interstitial the changes and venous hypertension. No edema or definite effusion. Heart sounds normal for this degree of inflation and portable technique.The aorta is unchanged without gross aneurysm. Air distention of the upper esophagus. Degenerative changes in the spine and posttraumatic changes right shoulder, stable. CT neck without contrast: 07/30/2020: reported as slight enlargement of the intramuscular abscess reported in the left masseter muscle measuring 2.9X 2.6X 2.2 cm today. perviously 2.6 X 2.2 X 2cm. increasing subcutaneous edema small r eactive nodes in the subcutaneous tissue above the left parotid and now extending down to the submandibular gland with slight edema around the submandibular gland as well. No involvement of the lateral pterygoid, bony destructive changes or other acute finding. Other chronic changes, including cervical spondylosis, are stable. PROGNOSIS: Good ACTIVITY: As tolerated. DIET: 2 g sodium diet, diabetic diet DISCHARGE PLAN: Discharge to [facility] DISPOSITION: . DISCHARGE INSTRUCTIONS: 1. Follow with PCP in 3-5 days. 2. Follow-up with ENT Dr. Ruiz in 3-5 days. 3. Patient is being discharged on Bactrim DS twice a day for 7 days. Follow with ENT for further management. ITEMS TO FOLLOWUP ON ON OUTPATIENT: 1. Follow with PCP in 3-5 days 2. Follow with ENT Dr. Ruiz in 3-5 days. DISCHARGE CONDITION: Stable. TIME SPENT ON DISCHARGE: Greater than 30 minutes. Vital Signs/I&Os Vital Signs Date Time Temp Pulse Resp B/P (MAP) Pulse Ox O2 Delivery O2 Flow Rate FiO2 08/03/20 17:44 18 08/03/20 14:00 98.4 63 116/67 (83) 92 Room Air I&O- Last 24 Hours up to 6 AM 08/03/20 06:00 Intake Total 1010 ml Output Total 1050 ml Balance -40 ml Laboratory Data Labs 24H Laboratory Tests 2 08/02/20 20:55: Bedside Glucose (Misc Panel) 411H 08/03/20 06:42: Immature Granulocyte % (Auto) 1.0, Neutrophils (%) (Auto) 91.0H, Lymphocytes (%) (Auto) 5.4L, Monocytes (%) (Auto) 2.5, Eosinophils (%) (Auto) 0.0, Basophils (%) (Auto) 0.1, Neutrophils # (Auto) 11.2H, Lymphocytes # (Auto) 0.7L, Monocytes # (Auto) 0.3, Eosinophils # (Auto) 0.0, Basophils # (Auto) 0.0, Nucleated Red Blood Cells % (auto) 0.0, Anion Gap 5L, Glomerular Filtration Rate 45.8, Calcium Level 8.8, Magnesium Level 2.5H, C-Reactive Protein, Quantitative 5.85H 08/03/20 09:13: Vancomycin Level Trough 16.8 08/03/20 11:28: Bedside Glucose (Misc Panel) 402H 08/03/20 16:15: Bedside Glucose (Misc Panel) 413H CBC/BMP Laboratory Tests 08/03/20 06:42 FSBS Laboratory Tests Test 08/02/20 20:55 08/03/20 11:28 08/03/20 16:15 Range/Units Bedside Glucose (Misc Panel) 411 402 413 80-115 MG/DL Microbiology Microbiology 08/01/20 Gram Stain - Final, Complete 08/01/20 Abscess Culture - Final, Complete Staph.aureus Methicillin Resis 08/01/20 Anaerobic Culture - Final, Complete 07/28/20 Blood Culture - Final, Complete NO GROWTH AFTER 5 DAYS 07/28/20 Blood Culture - Final, Complete NO GROWTH AFTER 5 DAYS Discharge Medications Scheduled Aluminum/Magnesium/Simeth (Mag-Al Plus Suspension) 30 Ml Oral.susp, 30 ML PO AC, (Reported) Aspirin (Aspirin) 81 Mg Tab.chew, 81 MG PO DAILY, (Reported) Atorvastatin Calcium (Atorvastatin Calcium) 40 Mg Tablet, 40 MG PO DAILY, (Reported) Buprenorphine (Butrans) 10 Mcg/Hr Patch.tdwk, 1 PATCH TOP QWEEK, (Reported) EVERY SATURDAY Duloxetine Hcl (Cymbalta) 30 Mg Capsule.dr, 30 MG PO BID, (Reported) Gabapentin (Gabapentin) 300 Mg Capsule, 300 MG PO TID, (Reported) 0500, 1300, 2100 Insulin Glargine (Lantus) 100 Unit/1 Ml Vial, 60 UNITS SC DAILY, (Reported) Insulin Glargine (Lantus) 100 Unit/1 Ml Vial, 55 UNITS SC QHS, (Reported) L.acidoph/L.bulg/B.bif/S.therm (Leny-Bid Caplet) 1 Each Tablet, 1 EA PO WM Levothyroxine Sodium (Levoxyl) 50 Mcg Tablet, 50 MCG PO DAILY, (Reported) Omeprazole (Omeprazole) 40 Mg Capsule.dr, 40 MG PO DAILY, (Reported) Potassium Chloride (Potassium Chloride) 10 Meq Tab.er.prt, 10 MEQ PO TID, (Repo rted) Propranolol HCl (Propranolol HCl) 20 Mg Tablet, 20 MG PO BID, (Reported) Rifaximin (Xifaxan) 550 Mg Tablet, 550 MG PO BID, (Reported) Spironolactone (Spironolactone) 50 Mg Tablet, 50 MG PO BID, (Reported) 0800 & 1700 Sulfamethoxazole/Trimethoprim (Sulfamethoxazole-Tmp Ds Tablet) 1 Each Tablet, 1 TAB PO BID for abscess Tiotropium [place] (Spiriva) 18 Mcg Cap.w.dev, 1 INHALATION INH DAILY, (Reported) Torsemide (Torsemide) 10 Mg Tablet, 10 MG PO BID, (Reported) 0800 & 1400 Scheduled PRN Acetaminophen (Tylenol) 325 Mg Tablet, 650 MG PO Q4H PRN for PAIN / FEVER, (Reported) Albuterol Sulf (Albuterol Sulfate) 2.5 Mg/3 Ml Vial.neb, 2.5 MG INH Q2H PRN for SOB/WHEEZING, (Reported) Bisacodyl (Dulcolax) 10 Mg Supp.rect, 10 MG MO DAILY PRN for CONSTIPATION, (Reported) Diphenhydramine HCl (Diphenhydramine HCl) 25 Mg Capsule, 25 MG PO Q6H PRN for ITCHING, (Reported) Eucalyptus/Menthol (Cough Drops) 1 Each Lozenge, 1 LOZENGE MT Q1H PRN for COUGH, (Reported) Hydroxyzine Pamoate (Hydroxyzine Pamoate) 25 Mg Capsule, 25 MG PO QID PRN for ANXIETY, (Reported) Menthol (Biofreeze) 118 Ml Gel..ml., 1 DOSE EXT Q4H PRN for PAIN, (Reported) APPLY TO PAINFUL JOINTS AND MUSCLES Milk Of Magnesia (Milk of Magnesia) 2,400 Mg/10 Ml Oral.susp, 10 ML PO DAILY PRN for CONSTIPATION, (Reported) Ondansetron HCl (Zofran) 4 Mg Tablet, 4 MG PO Q6H PRN for NAUSEA, (Reported) Oxycodone HCl (Oxycodone HCl) 10 Mg Tablet, 10 MG PO Q4H PRN for PAIN LEVEL 7- 10, (Reported) Sodium Phosphate,[place]-Dibasic (Enema) 133 Ml Enema, 1 EMANUEL MO DAILY PRN for CONSTIPATION, (Reported) Allergies Coded Allergies: Penicillins (Verified Allergy, Intermediate, HIVES, 07/27/19) Quinolones (Verified Allergy, Intermediate, HIVES, 07/08/20) ibuprofen (Verified Allergy, Mild, RASH, 07/08/20) Sterling aMn MD Aug 03, 2020 18:18
[2020-08-03 22:00] VITALS: BP 167/91
[2020-08-03 23:09] VITALS: O2SAT 95
[2020-08-04] MEDS: MORPHINE 4 MG/ML 1ML VIAL/SYRINGE (J2270) IV PRN ×2 (03:26→07:53)
[2020-08-04] MEDS: dexameTHASONE 4 MG/ML 1ML VIAL (J1100 PER 1MG) IV SCH ×2 (03:26→08:26)
[2020-08-04] MEDS: HEPARIN SOD (PORCINE) 5000UNITS/ML 1ML VIAL/SYRINGE SC SCH (05:23)
[2020-08-04] MEDS: GABAPENTIN 100 MG CAP PO SCH (05:23)
[2020-08-04] MEDS: LEVOTHYROXINE 50MCG TABLET (0.05MG) PO SCH (05:23)
[2020-08-04 06:00] VITALS: BP 157/87
[2020-08-04 06:17] LABS: BASO % 0.1 % (0.0-1.0); HEMATOCRIT 41.7 % (36.0-47.0); HEMOGLOBIN 13.6 g/dl (12.0-15.5); LYMPH # 0.7 10^3/uL (1.5-5.0); LYMPH % 6.7 % (24.0-44.0); MEAN CORPUSCULAR HEMOGLOBIN 30.2 pg (27.0-33.0); MEAN CORPUSCULAR HGB CONC 32.6 g/dl (32.0-36.5); MEAN CORPUSCULAR VOLUME 92.5 fl (80.0-96.0); MONO # 0.3 10^3/uL (0.0-0.8); MONO % 3.1 % (0.0-5.0); NEUTROPHILS # 9.5 10^3/uL (1.5-8.5); NEUTROPHILS % 88.6 % (36.0-66.0); PLATELET COUNT, AUTOMATED 223 10^3/uL (150-450); RED BLOOD COUNT 4.51 10^6/uL (4.00-5.40); WHITE BLOOD COUNT 10.8 10^3/uL (4.0-10.0)
[2020-08-04 06:50] LABS: C REACTIVE PROTEIN QUANTITATIV 3.41 MG/DL (0.00-0.30); CALCIUM LEVEL 8.7 MG/DL (8.8-10.2); CREATININE FOR GFR 1.27 MG/DL (0.55-1.30); MAGNESIUM LEVEL 2.3 MG/DL (1.8-2.4); POTASSIUM SERUM 5.2 MEQ/L (3.5-5.1)
[2020-08-04] MEDS: MAALOX 30 ML SUSP *UDC PO SCH (08:26)
[2020-08-04] MEDS: HumaLOG INSULIN (NovoLOG) PER UNIT SC SCH (08:26)
[2020-08-04 08:27] VITALS: BP 157/87
[2020-08-04] MEDS: TORSEMIDE 10 MG TABLET PO SCH (08:27)
[2020-08-04] MEDS: DULoxetine 30 MG CAP (CYMBALTA) PO SCH (08:27)
[2020-08-04] MEDS: ATORVASTATIN 20 MG TAB PO SCH (08:27)
[2020-08-04] MEDS: SPIRONOLACTONE 50 MG TAB PO SCH (08:27)
[2020-08-04] MEDS: PROPRANOLOL 20 MG TAB PO SCH (08:27)
[2020-08-04] MEDS: rifAXIMin 550 MG TAB (XIFAXAN) PO SCH (08:27)
[2020-08-04] MEDS: LACTOBACILLUS ACIDOPHILUS CAP (BACID) PO SCH (08:28)
[2020-08-04] MEDS: OMEPRAZOLE 20 MG CAP PO SCH (08:28)
[2020-08-04] MEDS: ASPIRIN 81 MG CHEW TABLET PO SCH (08:28)
[2020-08-04] MEDS: TIOTROPIUM INHALER/CAPSULE (SPIRIVA) INH SCH (08:46)
[2020-08-04] MEDS: LEVEMIR (INSULIN DETEMIR) 1 UNITS/0.01ML SC SCH (08:52)
[2020-08-04] MEDS ORDERED: oxyCODONE 5MG TAB PO ONE (11:15)
[2020-08-04] MEDS ORDERED: ACETAMINOPHEN TAB 650MG DOSE (2X325MG) PO PRN (11:30)
[2020-08-04] MEDS ORDERED: PERCOCET 5MG/325MG TAB PO PRN (11:30)
== END 2020-08-04 11:35 | DRG 558 ==
LOC: M ED 13:38 → M ED INP 15:48 → ENRESERV 16:35 → M MS5PR 17:39
PROVIDERS: ADMIT Internal Medicine; ATTEND Internal Medicine
PROC: 0C9 Mouth and Throat, Drainage (ICD-10-PCS; principal; 2020-08-01 08:00)
DX: M60.08 Infective myositis, other site (principal); I50.32 Chronic diastolic (congestive) heart failure; Z68.43 Body mass index [BMI] 50.0-59.9, adult; L97.929 Non-pressure chronic ulcer of unspecified part of left lower leg with unspecified severity; L97.919 Non-pressure chronic ulcer of unspecified part of right lower leg with unspecified severity; K12.2 Cellulitis and abscess of mouth; K74.60 Unspecified cirrhosis of liver; K75.81 Nonalcoholic steatohepatitis (NASH); E11.22 Type 2 diabetes mellitus with diabetic chronic kidney disease; J44.9 Chronic obstructive pulmonary disease, unspecified; Z66 Do not resuscitate; M79.3 Panniculitis, unspecified; G47.33 Obstructive sleep apnea (adult) (pediatric); N18.30 Chronic kidney disease, stage 3 unspecified; E11.40 Type 2 diabetes mellitus with diabetic neuropathy, unspecified; K21.9 Gastro-esophageal reflux disease without esophagitis; F20.9 Schizophrenia, unspecified; F41.9 Anxiety disorder, unspecified; I87.2 Venous insufficiency (chronic) (peripheral); E66.01 Morbid (severe) obesity due to excess calories; Z87.891 Personal history of nicotine dependence; Z79.82 Long term (current) use of aspirin; Z79.4 Long term (current) use of insulin; Z79.899 Other long term (current) drug therapy; Z88.0 Allergy status to penicillin; Z88.1 Allergy status to other antibiotic agents; Z88.6 Allergy status to analgesic agent; Z20.828 Contact with and (suspected) exposure to other viral communicable diseases

== ENCOUNTER → 2020-07-28 | Outpatient (REF) | payer MEDICARE, MEDICAID, OTHER ==
[~2020-07-28] MED LIST changes: +ASPI1CHW3 PO; +CEPH500T PO; +CLIN150C14 PO; +HYDR1CAP25 PO; +MYLASSUD PO; +PROP20TA72 PO; +RISATAB3 PO
[2020-07-28 09:08] LABS: HEMATOCRIT 38.5 % (36.0-47.0); MEAN CORPUSCULAR HEMOGLOBIN 29.5 pg (27.0-33.0); MEAN CORPUSCULAR HGB CONC 31.2 g/dl (32.0-36.5); MEAN CORPUSCULAR VOLUME 94.6 fl (80.0-96.0); PLATELET COUNT, AUTOMATED 177 10^3/uL (150-450); RED BLOOD COUNT 4.07 10^6/uL (4.00-5.40); WHITE BLOOD COUNT 10.5 10^3/uL (4.0-10.0)
[2020-07-28 09:33] LABS: ALBUMIN 2.3 GM/DL (3.2-5.2); BILIRUBIN,TOTAL 1.1 MG/DL (0.2-1.0); CALCIUM LEVEL 8.4 MG/DL (8.8-10.2); CREATININE FOR GFR 1.11 MG/DL (0.55-1.30); GLOMERULAR FILTRATION RATE 52.5 (>45); MAGNESIUM LEVEL 2.1 MG/DL (1.8-2.4); POTASSIUM SERUM 4.7 MEQ/L (3.5-5.1); TOTAL PROTEIN 6.7 GM/DL (6.4-8.2)
== END ==
LOC: SKLAB5 08:25
DX: J44.9 Chronic obstructive pulmonary disease, unspecified (principal); E11.9 Type 2 diabetes mellitus without complications; K76.9 Liver disease, unspecified

== ENCOUNTER → 2020-07-28 | Outpatient (CLI) | payer MEDICARE, OTHER ==
--- NOTE | 2020-07-28 11:07 | REP ---
INDICATION: ? PARATIDITIS (?) FILE RM. COMPARISON: Comparison is made with images obtained as part of CT angiography of the neck from June 17, 2020.. TECHNIQUE: Helical scanning is acquired. 3 mm axial images re-formatted. Coronal and sagittal MPR images are generated. FINDINGS: The upper thoracic and cervical esophagus are dilated and filled with air and fluid. This is unchanged from June 17, 2020. Question reflux. Patient is edentulous. There is subcutaneous facial swelling along the anteroinferior margin of the left parotid gland, along the left platysma muscle, and left masseter muscle. There is a 2.2 by 2.6 by 2.0 cm rounded low-density area within the masseter muscle itself on the left side in front of the left mandibular condyle and extending lateral to the coronoid process in the masseter muscle. There is surrounding edema and this is a new finding compared with the study done 6 weeks ago 06/17/2020. The edema surrounding this suggests aim intra muscular abscess in the left masseter muscle. The left lateral pterygoid and the inferior aspect of the left temporalis muscle do not appear to be involved. No bony destructive lesion is seen. The visualized paranasal sinuses are clear. No other mass or adenopathy is seen. IMPRESSION: 1. 2.6 cm low-density intramuscular lesion within the left masseter muscle consistent with abscess. This is new from the recent study 06/17/2020. There is surrounding edema in the left parotid and left facial soft tissues. No adenopathy seen. 2. Dilated upper thoracic and cervical esophagus filled with fluid and some air question gastroesophageal reflux. Otherwise negative. <Electronically signed by Javier Dorsey > 07/28/20 3600
== END ==
LOC: M RAD 09:32
DX: K11.20 Sialoadenitis, unspecified (principal); J44.9 Chronic obstructive pulmonary disease, unspecified; E11.9 Type 2 diabetes mellitus without complications; K76.9 Liver disease, unspecified

== ENCOUNTER → 2020-08-17 | Outpatient (REF) ==
[~2020-08-17] MED LIST changes: +ASPI1CHW3 PO; +CEPH500T PO; +CLIN150C14 PO; +HYDR1CAP25 PO; +MYLASSUD PO; +PROP20TA72 PO; +RISATAB3 PO
== END ==
LOC: SKLAB5 08:00
DX: Z20.828 Contact with and (suspected) exposure to other viral communicable diseases (principal)

== ENCOUNTER → 2020-08-24 | Outpatient (REF) | LOC: SKLAB5 08:00 | DX: Z20.828 Contact with and (suspected) exposure to other viral communicable diseases (principal) ==

== ENCOUNTER → 2020-08-31 | Outpatient (REF) | payer MEDICARE, MEDICAID, OTHER | LOC: SKLAB5 06:53 | PROVIDERS: ATTEND Family Medicine | DX: Z20.828 Contact with and (suspected) exposure to other viral communicable diseases (principal) ==

== ENCOUNTER → 2020-09-01 | Outpatient (REF) | payer MEDICARE, MEDICAID, OTHER ==
[2020-09-01 09:25] LABS: CREATININE FOR GFR 1.21 MG/DL (0.55-1.30); GLOMERULAR FILTRATION RATE 47.5 (>45)
== END ==
LOC: SKLAB5 07:57
DX: M51.16 Intervertebral disc disorders with radiculopathy, lumbar region (principal)

== ENCOUNTER → 2020-09-02 | Outpatient (CLI) | payer MEDICARE, MEDICAID ==
[~2020-09-02] MED LIST changes: +PROHANCE 279.3MG/ML 15ML VIAL As Ordered ONE
--- NOTE | 2020-09-02 15:47 | REPVR ---
PROCEDURE INFORMATION: Exam: MR Lumbar Spine Without and With Contrast. Exam date and time: 09/02/2020 3:01 PM Age: 64 years old Clinical indication: Low back pain; Patient HX: Lbp; Additional info: Intravertebral disc disorder L region w/ radiculopathy TECHNIQUE: Imaging protocol: Multiplanar magnetic resonance images of the lumbar spine without and with intravenous contrast. Contrast material: PROHANCE; Contrast volume: 10 ml; Contrast route: INTRAVENOUS (IV); COMPARISON: MRI-Spine, L.S. without con 04/25/2017 7:02 PM FINDINGS: Vertebrae: There is a compression fracture of the L5 vertebral body 50% with edema noted involving the superior endplate. There there is enhancement of the superior portion of the L5 vertebral body indicating this is possibly an acute to subacute fracture. Spinal cord: Normal signal. No cord compression. Discs/Spinal canal/Neural foramina: L1/2: No acute abnormality. L2/3: There is a broad-based central disc protrusion. There is no evidence of spinal stenosis. The foramina are mild to moderately narrowed bilaterally due to spurring. L3/4: There is a broad-based central disc protrusion. The foramina demonstrate a foraminal protrusion on the right with mild to moderate narrowing. The left foramina is moderately narrowed due to spurring. There is spinal stenosis at 8.5 mm. L4/5: There is spinal stenosis severe at 5 mm. There is posterior indentation upon the thecal sac due to the posterosuperior compressed L5 vertebral body endplate. The foramina demonstrates a foraminal protrusion on the right with moderate to severe narrowing. The foramina on the left demonstrates moderate narrowing due to spurring. There is severe ligamentum flavum hypertrophy. L5/S1: There is no spinal stenosis. There is no disc protrusion or extrusion. The foramina mildly narrowed due to spurring bilaterally. Soft tissues: Unremarkable. IMPRESSION: New compression fracture L5 with endplate edema. Severe spinal stenosis L4/5 with mild to moderate spinal stenosis L3/4. Foraminal narrowing as above. The Electronically signed by: Frantz Cuellar On 09/02/2020 15:46:51 PM
== END ==
LOC: M RAD 13:31
PROVIDERS: ATTEND Anesthesiology
DX: M48.061 Spinal stenosis, lumbar region without neurogenic claudication (principal); M51.16 Intervertebral disc disorders with radiculopathy, lumbar region
CPT/HCPCS: 72158; A9576

== ENCOUNTER → 2020-09-07 | Outpatient (REF) | payer MEDICARE, MEDICAID ==
[~2020-09-07] MED LIST changes: -PROHANCE 279.3MG/ML 15ML VIAL As Ordered ONE
== END ==
LOC: SKLAB5 09:23
DX: Z20.828 Contact with and (suspected) exposure to other viral communicable diseases (principal)

== ENCOUNTER → 2020-09-14 | Outpatient (REF) | payer MEDICARE, MEDICAID, OTHER | LOC: SKLAB5 06:12 | DX: Z20.828 Contact with and (suspected) exposure to other viral communicable diseases (principal) ==

== ENCOUNTER → 2020-09-21 | Outpatient (REF) | payer MEDICARE, MEDICAID, OTHER | LOC: SKLAB5 06:42 | DX: Z20.828 Contact with and (suspected) exposure to other viral communicable diseases (principal) ==

== ENCOUNTER → 2020-09-28 | Outpatient (REF) | payer MEDICARE, MEDICAID, OTHER | LOC: SKLAB5 07:12 | DX: Z11.52 Encounter for screening for COVID-19 (principal) ==

== ENCOUNTER → 2020-09-30 | Outpatient (CLI) | payer MEDICARE, OTHER ==
--- NOTE | 2020-09-30 13:56 | REP ---
INDICATION: LEFT LEG ADEMA AND PAIN, RO DVT COMPARISON: None. TECHNIQUE: Calderon scale and color Doppler evaluation left lower extremity using linear high frequency transducer. FINDINGS: Ultrasound examination of the left lower extremity deep venous structures from the common femoral vein to the popliteal vein demonstrates normal compressibility flow and wave patterns in response to respiration and augmentation. There is no evidence for deep venous thrombosis. IMPRESSION: No evidence for deep venous thrombosis. <Electronically signed by Juan Duckworth > 09/30/20 [id number]
== END ==
LOC: M RAD 13:04
PROVIDERS: ATTEND Student in an Organized Health Care Education/Training Program
DX: R60.0 Localized edema (principal); M79.605 Pain in left leg; M25.462 Effusion, left knee; M25.562 Pain in left knee

== ENCOUNTER → 2020-09-30 | Outpatient (REF) | payer MEDICARE, MEDICAID, OTHER ==
--- NOTE | 2020-09-30 12:59 | REP ---
INDICATION: PAIN,EDEMA COMPARISON: None. TECHNIQUE: AP, lateral, bilateral oblique and sunrise views. FINDINGS: The osseous structures and joint spaces are intact and normal. There is no evidence for acute fracture or dislocation. No joint effusion is appreciated. Surrounding soft tissues are unremarkable. No subcutaneous emphysema or radiodense foreign body. No significant degenerative changes noted. IMPRESSION: Essentially normal age-appropriate appearance to the left knee. <Electronically signed by Juan Duckworth > 09/30/20 [id number]
== END ==
LOC: SKLAB5 12:15
DX: M25.462 Effusion, left knee (principal); M25.562 Pain in left knee

== ENCOUNTER → 2020-10-04 | Outpatient (CLI) | payer MEDICARE, MEDICAID ==
[~2020-10-04] MED LIST changes: -CLIN150C14 PO; +CLIN150C15 PO; +GABA-282 PO; -GABA-843 PO
--- NOTE | 2020-10-05 23:52 | ECWPNPC ---
PATIENT NAME: HODAN FARFAN : 1955 GENDER: FEMALE VISIT DATE: 10/04/2020 DISCHARGE DATE: 10/04/20 1554 VISIT LOCKED DATE TIME: PHYSICIAN: CAMACHO HERNANDEZ MD PHYSICIAN PAGER NO: INACTIVE RESOURCE: CAMACHO HERNANDEZ MD REASON FOR APPOINTMENT 1. MRI REVIEW [phone] HISTORY OF PRESENT ILLNESS GENERAL: 64-YEAR-OLD FEMALE PATIENT WITH A HISTORY OF CHRONIC BACK AND BILATERAL LEG PAIN. THE PATIENT DESCRIBES THE PAIN BURNING, CONTINUOUS, STABBING AND THROBBING WITH A PAIN SCORE RANGING FROM 6-10/10 IN THE BACK WITH RADIATION TO BOTH LEGS BUT MAINLY THE LEFT LEG. THE PATIENT IS IN A WHEELCHAIR. SHE CANNOT MOVE. SHE IS USING NARCOTICS TO HELP CONTROL THE PAIN. THE PATIENT REPORTS THAT SHE CAN STAND FROM THE WHEELCHAIR BUT WITH DIFFICULTY. THE PATIENT REPORTS HAVING SWELLING OVER THE LEFT LEG. THEY DID STUDIES LOOKING FOR DVT WITH NO FINDINGS. I DO NOT SEE ANY CONTRAINDICATIONS FOR INJECTIONS. FALL RISK SCREENING: SCREENING :NO FALLS REPORTED IN THE LAST YEAR PAIN SCREENING: PATIENT HAS A COMPLAINT OF ACUTE OR CHRONIC PAIN :YES LOCATION OF PAIN:LOW BACK, LEFT HIP, RIGHT HIP, LEG(S) INTENSITY OF PAIN (SCALE OF 1 TO 10):8 WHAT DOES YOUR PAIN FEEL LIKE:BURNING, CONTINOUS, STABBING, THROBBING DURATION:CONTINOUS, ALL DAY, AWAKENS FROM SLEEP PAIN IS INCREASED BY:OTHERS PROLONGED SITTING PAIN IS DECREASED BY:OTHERS LAYING DOWN HELPS PAIN "LET UP SOME" TREATMENT/MEDICATIONS USED TO MANAGE PAIN:OTC PAIN RELIEVERS, NSAIDS, TOPICAL CORTICOSTEROIDS, OPIOIDS, CORTICOSTEROIDS, PHYSICAL THERAPY PAIN HAS INTERFERED WITH THE FOLLOWING:MOOD, WALKING ABILITY, SLEEP, ENJOYMENT OF LIFE, TOILETING, FOOD PREPARATION PLAN/GOALS/TREATMENT/INTERVENTION/FOLLOW UP:SEE PLAN PAIN CENTER INTAKE QUESTIONS: DO YOU HAVE A HISTORY OF MRSA? :YES H/O ABD. WOUND WITH MRSA 08/12 DO YOU TAKE A BLOOD THINNERS? :NO DO YOU HAVE ANY BLEEDING DISORDERS? :NO ANY NEW NUMBNESS OR WEAKNESS IN YOUR LEGS OR ARMS? :YES INCREASED WEAKNESS OF RIGHT ARM/HAND (MILD STROKE A COUPLE MONTHS AGO) PATIENT DOESNT REMEMBER WHICH SIDE IT AFFECTED. ANY PACEMAKER,DEFIBRILLATOR, OR DORSAL COLUMN STIMULATOR? :NO DO YOU HAVE ANY RASHES OR OPEN SORES? :YES LOWER LEGS NOTED TO HAVE APPARENT HYPERPIGMENTED APPEARANCE, OPEN SCABBED OVER AREAS NOTED TO LEFT LOWER LEG. ARE YOU ALLERGIC TO IV DYE? :NO ARE YOU DIABETIC? :YES 159 AM (09/30/20) ANY NEW PROBLEMS WITH YOUR MEDICATIONS? :NO HAVE YOU RECEIVED A VACCINE IN THE PAST 30 DAYS? :YES IF SO WHAT VACCINE AND WHEN? COVID VACCINE (09/26 OR 09/27 PER STAFF) DO YOU PLAN TO RECEIVE A VACCINE IN THE NEXT 21 DAYS? :NO DO YOU NEED ANY PRESCRIPTION? :NO DO YOU TAKE ANY IMMUNOSUPPRESSIVE MEDICATIONS? :NO IS THERE A CHANCE YOU COULD BE ? :NO ARE YOU BREAST FEEDING? :NO CURRENT MEDICATIONS TAKING WHEELCHAIR 1 MISCELLANEOUS DIRECTED M51.16 DAILY TAKING WHEELCHAIR _ MISCELLANEOUS DIRECTED D X: R27.0 DAILY, NOTES: COLE [phone] TAKING GLUCOMETER (VERIO IQ) 1 GLUCOMETER DIRECTED E11.8 FOUR TIMES DAILY TAKING BL LANCETS 1 1 LANCET E11.8 FOUR TIMES DAILY TAKING ONETOUCH VERIO 1 STRIP 1 STRIP E11.9 BID TAKING DEPEND PANT EXTRA LARGE DEPENDS MISCELLANEOUS SUPER ABSORBENT HIP - 155 CM; WAIST - 146 CM ICD:N39.490 EVERY 2-4 HOURS NEEDED MDD: 5 BRIEFS TAKING LEVOTHYROXINE SODIUM 50 MCG TABLET 1 CAPSULE ORALLY ONCE A DAY TAKING MAGNESIUM 400 MG CAPSULE 1 TABLET WITH A MEAL ORALLY TWICE A DAY TAKING SPIRONOLACTONE 50 MG TABLET 1 TAB ORALLY BID TAKING METOPROLOL TARTRATE 25 MG TABLET 1 TABLET WITH FOOD ORALLY TWICE A DAY TAKING SPIRIVA HANDIHALER 18 MCG CAPSULE 1 CAPSULE INHALATION ONCE A DAY TAKING INSULIN PEN NEEDLE 31G X 6 MM MISCELLANEOUS DIRECTED SQ DAILY BEFORE BEDTIME DX:E11.8 TAKING ONETOUCH VERIO - STRIP DIRECTED SUBCUTANEOUSLY AC BID TAKING TORSEMIDE 10 MG TABLET 1 TABLET ORALLY BID TAKING GABAPENTIN 600 MG TABLET 1 TABLET ORALLY BID TAKING DULOXETINE HCL 30 MG CAPSULE DELAYED RELEASE PARTICLES 1 CAPSULE ORALLY BID TAKING ROLLER WALKER 1 MISCELLANEOUS DIRECTED M47.816 DAILY TAKING COMPRESSION STOCKINGS 20-30 MMHG DIRECTED L03.116 DAILY TAKING LACTULOSE 20 GM/30ML SOLUTION 15 ML ORALLY TID TAKING LANTUS 100 UNIT/ML SOLUTION 60 IN THE AM AND 55 IN THE EVENING SUBCUTANEOUS TAKING OMEPRAZOLE 40 MG CAPSULE DELAYED RELEASE 1 CAPSULE 30 MINUTES BEFORE MORNING MEAL ORALLY ONCE A DAY TAKING POTASSIUM CHLORIDE JYOTSNA ER 10 MEQ TABLET EXTENDED RELEASE 1 TABLET WITH FOOD ORALLY THREE TIMES DAILY TAKING RIFAXIMIN 550 MG TABLET 1 TABLET ORALLY TWICE A DAY TAKING ACETAMINOPHEN 325 MG TABLET 2 TABLETS NEEDED ORALLY EVERY 4 HRS TAKING BENADRYL ALLERGY 25 MG CAPSULE 1 CAPSULE AT BEDTIME NEEDED ORALLY EVERY 6 HOURS PRN TAKING ONDANSETRON HCL 4 MG TABLET 1 TABLET ORALLY Q 6 HOURS PRN, NOTES: PRN TAKING MILK OF MAGNESIA 2400 MG/30ML SUSPENSION 10 ML NEEDED ORALLY DAILY, NOTES: PRN TAKING BIOFREEZE EVERY 6 HOURS NEEDED, NOTES: PRN TAKING ALBUTEROL SULFATE (2.5 MG/3ML) 0.083% NEBULIZATION SOLUTION 3 ML NEEDED INHALATION EVERY 2 HRS TAKING ENEMA DISPOSABLE - ENEMA DIRECTED RECTAL TAKING COUGH DROPS MENTHOL - LOZENGE DIRECTED MOUTH/THROAT NEEDED EVERY HOUR TAKING BUTRANS 15 MCG/HR PATCH WEEKLY 1 PATCH TO SKIN TRANSDERMAL WEEKLY, REMOVE OLD PATCH TAKING OXYCODONE HCL 10 MG TABLET 1 TABLET NEEDED, MDD OF 4 TABS ORALLY EVERY 6 HRS FOR PAIN MDD=6 NOT-TAKING BACTRIM DS 800-160 MG TABLET 1 TABLET ORALLY TWICE A DAY NOT-TAKING GUAIASORB DM 10-100 MG/5ML LIQUID 10 ML NEEDED ORALLY EVERY 4 HRS NOT-TAKING COLACE 100 MG CAPSULE 1 CAPSULE NEEDED ORALLY ONCE A DAY, NOTES: 02/04/2020 0800 NOT-TAKING BUTRANS 10 MCG/HR PATCH WEEKLY 1 PATCH TO SKIN TRANSDERMAL CHANGE PATCH EVERY 7 DAYS NOT-TAKING FAMOTIDINE 20 MG TABLET 1 TABLET AT BEDTIME ORALLY ONCE A DAY NOT-TAKING FERROUS SULFATE 325 (65 FE) MG TABLET 1 TABLET ORALLY ONCE A DAY NOT-TAKING XIFAXAN 550 MG TABLET 1 TABLET ORALLY TWICE A DAY NOT-TAKING TOUJEO SOLOSTAR 300 UNIT/ML SOLUTION PEN-INJECTOR DIRECTED SUBCUTANEOUS 80 UNITS IN AM 70 UNITS AT HS NOT-TAKING FISH OIL 1000 MG CAPSULE 1 CAPSULE ORALLY ONCE A DAY, NOTES: OTC NOT-TAKING KRISTALOSE 10 GM PACKET 1 PACKET ORALLY ONCE A DAY NOT-TAKING LIDODERM 5 % PATCH 1 PATCH REMOVE AFTER 12 HOURS EXTERNALLY ONCE A DAY NOT-TAKING TIZANIDINE HCL 4 MG TABLET 1 TABLET NEEDED ORALLY FOUR TIMES DAILY NOT-TAKING DIFLUCAN 100 MG TABLET 1 TABLET ORALLY BID NOT-TAKING HYDROXYZINE HCL 25 MG TABLET 1 TABLET NEEDED ORALLY EVERY 8 HRS NOT-TAKING NYSTATIN 205838 UNIT/GM CREAM 1 APPLICATION EXTERNALLY TWICE A DAY NOT-TAKING TRAMADOL HCL 50 MG TABLET 1 TABLET NEEDED ORALLY TID PRN PAIN NOT-TAKING KEFLEX 500 MG CAPSULE 1 CAPSULE ORALLY EVERY 12 HRS NOT-TAKING METOLAZONE 5 MG TABLET 1 TABLET ORALLY ONCE A DAY MEDICATION LIST REVIEWED AND RECONCILED WITH THE PATIENT PAST MEDICAL HISTORY OBESITY, MORBID CERVICAL/THORACIC/LUMBAR DJD-L2-S1 DIFFUSE BULGES-AT L5/S1 ABUTTING TS, B S1 PERIPHERAL EDEMA-01/2011 [id number] 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 BARAHONA, [facility] [place], [place] OBSTRUCTIVE SLEEP APNEA HYPERLIPIDEMIA 2B COPD-07/2011 FEV1 1.9L (71%)/RATIO 92% T2DM ID GERD/HIATAL HERNIA-SEEN BY APRIL 2011 UPPER GI WITH SMALL BOWEL FOLLOW-THROUGH SCHIZOAFFECTIVE DISORDER-SPELLED BY DR. OSBORNE NONALCOHOLIC FATTY LIVER DISEASE-SEEN BY MARCH 2011 CT-NORMAL WORKUP 2010--CHRONIC HEPATITIS GRADE 2/4 WITH GRADE 4/4 CIRRHOSIS BY LIVER BIOPSY JULY 2011 VASOMOTOR SYMPTOMS VITAMIN D DEFICIENCY ALLERGIC RHINITIS RECURRENT CANDIDAL DERMATITIS ANTERIOR ABDOMEN LEUKOPENIA, CHRONIC CHRONIC ANTERIOR ABDOMINAL WALL PANNICULITIS PORTAL VENOUS HYPERTENSION SEEN BY MARCH 2011 CT CKD III-12/2013 NORMAL B RENAL US CHF 2 DIASTOLIC DYSFUNCTION-01/2017 TTE-GUADALUPE C GRADE 1 DIASTOLIC DYSFUNCTION, VERY MILD MR/TR B SHOULDER IMPIGNMENT SYNDROME-09/2015 L SHOULDER XRAY C MILD AC ARTHRITIS//S/P R PROXIMAL HUMERUS FRACTURE S/P MECHANICAL UPWB-TUD-APQUIAKN PER HEBERT RECURRENT HEPATIC ENCEPHALOPATHY-01/2017 MRI BRAIN MILD /VOLUME LOSS ASTHMA CELLULITIS HYPOTHYROIDISM MRSA (PER PT REPORT) ABDOMEN 06/16/2020 CHEST PAIN, HEAVINESS, SOB, ADMITTED TO [facility], DX TIA ALLERGIES CIPRO: CONFUSION - SIDE EFFECTS DOXYCYCLINE HYCLATE: ITCHY - ALLERGY MOTRIN: HIVES - ALLERGY SURGICAL HISTORY LINCOLN/BSO FOR NONCANCEROUS REASON-MAGDALENE 2002 EGD/[id number] GASTRITIS/PANDIVERTICULOSIS/LARGE HIATAL HERNIA/NEGATIVE SMALL BOWEL BIOPSY NOVEMBER 2009 NEGATIVE LUMBAR PUNCTURE FOR MS-LUDMILA JANUARY 2008 EGD-HIATAL HERNIA, NO EVIDENCE OF MASS AMPULLA OF VATER-ROHAN MARCH 2011 HARD PALATE EXCISIONAL BIOPSY-ULCERATED HEMANGIOMA-OPAL MARCH 2011 RIGHT HIP REPAIR AND FEMUR REPAIR BLOOD PRESSURE MARCH 2019 CYSTS REMOVED FROM LOWER JAW FAMILY HISTORY FATHER: 70 YRS, DIAGNOSED WITH OTHER SPECIFIED CONDITIONS INFLUENCING HEALTH STATUS MOTHER: 60 YRS, OTHER SPECIFIED CONDITIONS INFLUENCING HEALTH STATUS SIBLINGS: ALIVE, HYPERTENSION, UNSPECIFIED HEART DISEASE, DIABETES, UNSPECIFIED NONPSYCHOTIC MENTAL DISORDER FOLLOWING ORGANIC BRAIN DAMAGE DAUGHTER(S): ALIVE 2 BROTHER(S) , 4 SISTER(S) . 3DAUGHTER(S) - HEALTHY. MOTHER- EMPHASEMAFATHER-COPD BROTHER - OPEN HEART SURGERY. SOCIAL HISTORY GENERAL: TOBACCO USE ARE YOU A:NONSMOKER LATEX QUESTIONNAIRE LATEX ALLERGY : HAVE YOU EVER DEVELOPED ANY TYPE OF REACTION AFTER HANDLING LATEX PRODUCTS SUCH RUBBER GLOVES, CONDOMS, DIAPHRAGMS, BALLOONS, SOCKS, OR UNDERWEAR?NO ALLERGY TO SOME TAPE - ONLY USES PAPER TAPE LATEX ALLERGY : HAVE YOU EVER DEVELOPED ANY TYPE OF REACTION DURING OR AFTER DENTAL APPOINTMENT, VAGINAL/RECTAL EXAMINATION, SURGICAL PROCEDURE, OR ANY OTHER EXPOSURE?NO LATEX RISK : HAVE YOU EVER HAD ANY DIFFICULTY BREATHING OR HIVES AFTER EATING OR HANDLING ANY FRUITS, OR VEGETABLES; SUCH KIWI, BANANAS, STONE FRUITS, OR CHESTNUTSNO LATEX RISK : DO YOU HAVE A PREVIOUS PERSONAL HISTORY OF MORE THAN NINE SURGERIES, SPINA BIFIDA, OR REPEATED CATHERIZATIONS? NO LATEX RISK : ARE YOU FREQUENTLY EXPOSED TO LATEX PRODUCTS IN YOUR OCCUPATION?NO DATE ASKED : 10/04/2020 LUNG CANCER SCREENING SMOKING STATUS:NON SMOKER BMI CARE GOAL FOLLOW-UP ABOVE NORMAL BMI FOLLOW-UPGIVING ENCOURAGEMENT TO EXERCISE ALCOHOL SCREENING DID YOU HAVE A DRINK CONTAINING ALCOHOL IN THE PAST YEAR?NO POINTS0 INTERPRETATIONNEGATIVE RECREATIONAL DRUG USE DRUG USE?NO CAFFEINE OCCASIONAL ONLY. SEXUAL HX HAD SEX IN THE LAST 12 MONTHS (VAGINAL, ORAL, OR ANAL)?NO HAVE YOU EVER HAD AN STD?NO CONFUCIANIST [id number] ISLAM LANGUAGE LANGUAGES SPOKEN:GREEK EDUCATION LEVEL OF EDUCATION:FINISHED HIGH SCHOOL LEARNING BARRIERS / SPECIAL NEEDS CHANGE FROM LAST VISIT?NO BARRIERS TO LEARNING?NO HEARING IMPAIRED?NO VISION IMPAIRED?YES COGNITIVELY IMPAIRED?NO :CORRECTIVE LENSES READINESS TO LEARN?YES LEARNING PREFERENCES?YES :DEMONSTRATION/VERBAL INSTRUCTION LEARNING CAPABILITIES PRESENT?YES EMOTIONAL BARRIERS?NO SPECIAL DEVICES?NO K 8 SCHOOL PRINCIPAL NEEDED?NO DOMESTIC VIOLENCE DO YOU FEEL SAFE IN YOUR ENVIRONMENT?YES OCCUPATION: RETIRED. DIET: CARBOHYDRATE CONTROLLED. EXERCISE: NO REGULAR EXERCISE. MARITAL STATUS: SINGLE. OTHERS AT HOME: NONE. DAUGHTER LIVES NEAR BY.. PAIN CLINIC PFS, CLERGY, PUBLIC HEALTH REFERRALS HAS THE PATIENT BEEN EDUCATED REGARDING HIS/HER PLAN OF CARE?YES HAS THE PATIENT BEEN EDUCATED REGARDING PAIN, THE RISK FOR PAIN, THE IMPORTANCE OF EFFECTIVE PAIN MANAGEMENT, AND THE PAIN ASSESSMENT PROCESS?YES HOUSING: [place] KEEP HOME. ADVANCE DIRECTIVE ADVANCE DIRECTIVE DISCUSSED WITH PATIENT:YES PT STATES THAT SHE DOES NOT HAVE HCP AT THIS TIME, DECLINES ASSISTANCE WITH PAPERWORK. HOSPITALIZATION/MAJOR DIAGNOSTIC PROCEDURE RECURRENT NAUSEA/VOMITING-NEGATIVE BLOOD CULTURE X2/NEGATIVE URINE CULTURE APRIL 05-2010 MS CHANGE 2 MEDICATIONS/HEPATIC ENCEPHALOPATHY-PEAK [id number] AMBIEN, VICODIN, ZANAFLEX/NEGATIVE UCX/BCX X2 01/29-02/06/2012 MS CHANGE 2 HEPATIC ENCEPHALOPATY-HEAD CT C MILD ATROPHY 02/2012 MS CHANGE 2 HEPATIC ENCEPHALOPATHY, INCREASED PERIPHERAL EDEMA 04/2012 MS CHANGE ? 2 HEPATIC ENCEPHALOPATHY VS 2 SCHIZOAFFECTIVE DISORDER-ADMISSION NH3 32, NEGATIVE HEAD CT, B12 LEVEL, SX RESOLVED IN HOURS 05/2012 SYMPTOMATIC HYPONATRIEMIA/HYPOKALEMIA (116, 2.9 ON ADMISSION) 2 ESLD/ASCITES C OVERDIURESIS-LASIX 40 BID AND SPIROLACTONE 50 BID HELD 12/30- LLE CELLULITIS-ONSET DAY OF ADMISSION-RXED C ZOSYN 7D THEN CEFTAROLINE 5D-04/25/142 BCX K PNEUMONIA, 04/28/14 UCX NGCS, 05/04, , -BCX X 1 EACH DAY -, CXR C MILD B PVC, 04/25/2014 - LLE EVT US 04/25- LLE CELLULITIS WITH S. SIMULANS AND C- STAPH BCX 2, P. AERUGENOSA BY BCX 2 RXED C LEVAQUIN 10D, UCX NG, CT CHEST S/ C - 06/22-06/30/14 INCREASED BLE EDEMA =/- BLE CELLULITIS, ASX UCX C E. COLI ESBL (AFEBRILE, PRESENTING WBC 4.2) RXED C ZOSYN 3D THEN BACTRIM 2D, - BCX X 2, - CXR, - B TIB/FIB XRAY 09/03-16/14 LLE CELLULITIS/SIRS- -BCX X 2, -LLE DVT US, RXED C CEFAROLINE BUT D/MOUSTAPHA ON KEFLEX 500 BID, UCX NG, - MRSA SCREEN, ADMISSION WBC 14.3, CRP 7.9 11/14- LLE CELLULITIS-- BCX X 2, SCX C FEW COAG NEG STAPH, RX C CEFTAROLINE IV, D/MOUSTAPHA ON DOXY PO 03/10- LLE CELLULITIS/SIRS-RX C CEFTAROLINE-(ADMISSION WBC 17.9, D/C 5.8, NO CRP/ESR DONE, BCX - X 2) 04/23-03/07 LLE CELLULITIS/SIRS-BETH CHANGED CEFTAROLINE TO KEFLEX 500 QID AND RECOMMENDED 500 QD SUPPRESSION FAVORING RECURRENT MSSA, - NASAL SWAB MRSA SCREEN AND CULTURE, - BCX X2, -MRI L FOOT/THIGH, -LLE DVT US 06/15-06/23/15 ACUTE HYPOXIC RESPIRATORY FAILURE 2 ARDS FROM ASPIRATION PN/CARDIOGENIC SHOCK-ON MECHANICAL VENTILATION X 1W, RUE NONOCCLUSIVE CEPHALIC DVT-NOT TREATED/THEN TO [facility] UNTIL 07/05/1604/04-04/26/16 BROKEN SHOULDER- ALC FOR 2 WEEK 10/15-10/17/16 HEPATIC ENCEPHALOPATHY 01/02/17-01/04/17 HEPATIC ENCEPHALOPATHY, DECOMPENSATED CHF, UTI, - BLE DVT US 04/18-04/30/17 REVIEW OF SYSTEMS CONSTITUTIONAL: ANY RECENT FEVER NO . CHILLS YES, OCCASIONAL . WEIGHT CHANGE OF UNKNOWN REASONS NO . GASTROENTEROLOGY: NEW UNEXPLAINABLE CHANGES IN BOWEL CONTROL NO . CONSTIPATION YES . GENITOURINARY: ANY NEW CHANGE IN BLADDER CONTROL? NO . NEUROLOGY: NEW ONSET DIZZINESS OR NEUROLOGICAL CHANGES NOT MENTIONED NO . NEW NUMBNESS OR PAIN PATTERNS NOT MENTIONED AND PERTINENT TO TODAY'S VISIT NO . CARDIOLOGY: NEW CHEST PRESSURE NO . NEW CHEST PAIN NO . RESPIRATORY: UNEXPLAINABLE COUGH NO . NEW SHORTNESS OF BREATH NO . VITAL SIGNS WT 286.4 LBS, HT 78 IN, BMI 33.09 INDEX, BP 152/74 MM HG, HR 76 /MIN, RR 18 /MIN, TEMP 97.6 F, OXYGEN SAT % 98% RA, BLOOD GLUCOSE LEVEL 135 AT NOON, SAFE IN ENV? (Y/N) YES, NA INITIALS MT, REVIEWED BY: Clint TABOR RN. EXAMINATION GENERAL EXAMINATION: THE PATIENT IS ALERT, ORIENTED TIMES THREE AND COOPERATIVE. LUNGS ARE CLEAR TO AUSCULTATION. HEART SHOWS REGULAR RHYTHM, NO MURMURS AND NO GALLOPS. THE LEFT LEG IS WEAKER THAN THE RIGHT LEG ON FLEXION AND EXTENSION. STRAIGHT LEG RAISE IS POSITIVE FOR RADICULOPATHY AT 50 DEGREES. MRI OF THE LUMBAR SPINE DATED 09/02/2020 SHOWS SOME SPINAL STENOSIS AT L4-L5 AND BULGING DISC AT L3-L4. ASSESSMENTS INTERVERTEBRAL DISC DISORDERS WITH RADICULOPATHY, LUMBAR REGION - M51.16 (PRIMARY) LUMBAR VERTEBRAL FRACTURE - S32.009A, L5 TREATMENT INTERVERTEBRAL DISC DISORDERS WITH RADICULOPATHY, LUMBAR REGION NOTES: 10/04/20 1615 [facility] 5TH FLOOR ADVISED OF PATIENT'S REPORTED "CHILLS," TELEPHONE ENCOUNTER CREATED. [facility] EDUCATED ON PRE PROCEDURE INSTRUCTIONS FOR LUMBAR EPIDURAL STEROID INJECTION AND HANDOUT, PATIENT VERBALIZES UNDERSTANDING. Clint TABOR RN BSN. CLINICAL NOTES: I DISCUSSED ALTERNATIVES WITH MS. FARFAN. IN REGARDS TO THE CHILLS, WE WILL CALL TO THE FLOOR AND INFORM THE STAFF SO THEY CAN LET HER PRIMARY KNOW. I DO NOT SEE A REASON FOR THE CHILLS BUT I WOULD STILL LIKE THEM TO KNOW. I AM GOING TO REQUEST AUTHORIZATION FOR A LUMBAR EPIDURAL STEROID INJECTION AT L5-S1, BOOK AFTER APPROVED. THE PATIENT REPORTS UNDERSTANDING AND AGREES WITH THE PLAN. I, SYDNEY FAIRBANKS, DOCUMENTED THE ABOVE INFORMATION ACTING A SCRIBE FOR DR. HERNANDEZ. I HAVE REVIEWED THE ABOVE DOCUMENT, WRITTEN BY SYDNEY FAIRBANKS, GRAIN OILSEED OR PASTURE FARM WORKER, AND I VERIFY THAT IT IS ACCURATE. PROCEDURE CODES FA211 ESTABILISHED PATIENT [facility] FACILITY CHARGE [id number] OFFICE/OUTPATIENT VISIT EST DISPOSITION & COMMUNICATION FOLLOW UP REQUEST AUTH FOR LUMBAR EPIDURAL STEROID INJECTION (REASON: REQUEST AUTH FOR LUMBAR EPIDURAL STEROID INJECTION) ELECTRONICALLY SIGNED BY CAMACHO HERNANDEZ MD, MD ON 10/05/2020 AT 09:27 AM EST DISCLAIMER : THIS IS A VISIT SUMMARY EXTRACTED FROM THE [employer] CHART. IT IS NOT A COPY OF THE [employer] PROGRESS NOTE. [facility]
== END ==
LOC: M PAIN 15:00
PROVIDERS: ATTEND Anesthesiology
DX: M51.16 Intervertebral disc disorders with radiculopathy, lumbar region (principal); S32.009A Unspecified fracture of unspecified lumbar vertebra, initial encounter for closed fracture; G89.29 Other chronic pain; E11.9 Type 2 diabetes mellitus without complications; G47.33 Obstructive sleep apnea (adult) (pediatric); J44.9 Chronic obstructive pulmonary disease, unspecified; K21.9 Gastro-esophageal reflux disease without esophagitis; E03.9 Hypothyroidism, unspecified; Z86.14 Personal history of Methicillin resistant Staphylococcus aureus infection; Z86.59 Personal history of other mental and behavioral disorders; Z88.1 Allergy status to other antibiotic agents; Z88.6 Allergy status to analgesic agent; Z79.4 Long term (current) use of insulin; Z79.899 Other long term (current) drug therapy

== ENCOUNTER → 2020-10-05 | Outpatient (REF) | payer MEDICARE | LOC: SKLAB5 07:08 | PROVIDERS: ATTEND Internal Medicine | DX: Z20.822 Contact with and (suspected) exposure to COVID-19 (principal) ==

== ENCOUNTER → 2020-10-12 | Outpatient (REF) | payer MEDICARE, MEDICAID, OTHER ==
[~2020-10-12] MED LIST changes: -MAG400TA PO; +MAGN400T35 PO
== END ==
LOC: SKLAB5 07:28
PROVIDERS: ATTEND Internal Medicine
DX: Z20.822 Contact with and (suspected) exposure to COVID-19 (principal)

== ENCOUNTER → 2020-10-14 | Outpatient (CLI) | payer MEDICARE, MEDICAID ==
--- NOTE | 2020-10-14 10:59 | REP ---
INDICATION: LEFT SIDE PARATIDITIS. COMPARISON: Comparison soft tissue neck CT study July 30, 2020.. TECHNIQUE: Helical scanning is acquired and 2 mm axial images re-formatted. Coronal MPR images are generated and reviewed. FINDINGS: Preliminary senior process analyst images are unremarkable. The maxillary sinuses are clear. Ethmoid, frontal, and sphenoid sinuses are clear. Mastoid aeration is normal and symmetric. There is some vascular calcification bilaterally in the carotid siphons and in the distal vertebral arteries. No intraorbital mass or fluid collection is seen. Visualized intracranial structures show minimal volume loss. There is an area of dermal thickening and indentation and a fibrotic appearing tract in the underlying subcutaneous muscle at the superior margin of the left parotid gland consistent with a draining fistula or scar from a previous drainage site. This subcutaneous tract like structure is a new finding compared to the July 30, 2020 study. This is at the level where prior study showed a abscess in the masseter muscle on the left. This intramuscular fluid collection and inflammation has resolved. No abnormal fluid collection is apparent on this noncontrast study. The left parotid gland swelling has improved compared to the July 30, 2020 study. No new fluid collection is seen. No mass or adenopathy is observed. There is no bony destructive lesion or erosive change. IMPRESSION: The previously noted abscess in the left masseter muscle appears to have resolved. The inflammatory edema in the left parotid gland is improved. There is a subcutaneous tract adjacent to the left masseter muscle on the left consistent with a fibrotic tract or fistulous tract. This extends to the overlying dermis. Does not contain visible air. <Electronically signed by Javier Dorsey > 10/14/20 [id number]
== END ==
LOC: M RAD 08:49
PROVIDERS: ATTEND Student in an Organized Health Care Education/Training Program
DX: K11.8 Other diseases of salivary glands (principal)

== ENCOUNTER → 2020-10-19 | Outpatient (REF) | payer MEDICARE, MEDICAID | LOC: SKLAB5 06:49 | PROVIDERS: ATTEND Internal Medicine | DX: Z20.822 Contact with and (suspected) exposure to COVID-19 (principal) ==

== ENCOUNTER → 2020-10-26 | Outpatient (REF) | payer MEDICARE, MEDICAID ==
[~2020-10-26] MED LIST changes: +MAG400TA PO; -MAGN400T35 PO
== END ==
LOC: SKLAB5 07:30
PROVIDERS: ATTEND Internal Medicine
DX: Z20.822 Contact with and (suspected) exposure to COVID-19 (principal)

== ENCOUNTER → 2020-10-27 | Outpatient (REF) | payer MEDICARE, MEDICAID, OTHER ==
[~2020-10-27] MED LIST changes: -MAG400TA PO; +MAGN400T35 PO
[2020-10-27 11:52] LABS: HEMATOCRIT 38.6 % (36.0-47.0); HEMOGLOBIN 11.9 g/dl (12.0-15.5); MEAN CORPUSCULAR HEMOGLOBIN 28.2 pg (27.0-33.0); MEAN CORPUSCULAR HGB CONC 30.8 g/dl (32.0-36.5); MEAN CORPUSCULAR VOLUME 91.5 fl (80.0-96.0); PLATELET COUNT, AUTOMATED 182 10^3/uL (150-450); RED BLOOD COUNT 4.22 10^6/uL (4.00-5.40); WHITE BLOOD COUNT 6.5 10^3/uL (4.0-10.0)
[2020-10-27 12:47] LABS: ALBUMIN 2.8 GM/DL (3.2-5.2); BILIRUBIN,TOTAL 0.3 MG/DL (0.2-1.0); CALCIUM LEVEL 9.3 MG/DL (8.8-10.2); CREATININE FOR GFR 1.23 MG/DL (0.55-1.30); GLOMERULAR FILTRATION RATE 46.5 (>45); MAGNESIUM LEVEL 2.1 MG/DL (1.8-2.4); POTASSIUM SERUM 3.7 MEQ/L (3.5-5.1); TOTAL PROTEIN 7.4 GM/DL (6.4-8.2)
== END ==
LOC: SKLAB5 10:33
DX: N28.9 Disorder of kidney and ureter, unspecified (principal); Z20.822 Contact with and (suspected) exposure to COVID-19
CPT/HCPCS: 36415; 80053; 82140; 83735; 85027; U0002

== ENCOUNTER → 2020-11-01 | Outpatient (CLI) | payer MEDICARE, MEDICAID ==
[~2020-11-01] MED LIST changes: +ISOVUE-M 300 61% 15ML VIAL As Ordered ONE; +LIDOCAINE 1% SDV 30ML VIAL As Ordered ONE; +methylPREDNISolone SUSP 40MG/ML 1ML VIAL (DEPO MEDROL) As Ordered ONE
--- NOTE | 2020-11-01 11:26 | REP ---
INDICATION: CHRONIC PAIN. COMPARISON: None. TECHNIQUE: Intraoperative fluoroscopic imaging using portable C-arm technique. FINDINGS: Multiple images demonstrate catheter and contrast overlying the lumbar epidural space. Total fluoroscopic time 12 seconds. IMPRESSION: Status post lumbar injection. <Electronically signed by Juan Duckworth > 11/01/20 1128
--- NOTE | 2020-11-02 03:37 | ECWPNPC ---
PATIENT NAME: HODAN FARFAN : 1955 GENDER: FEMALE VISIT DATE: 11/01/2020 DISCHARGE DATE: 11/01/20 1134 VISIT LOCKED DATE TIME: PHYSICIAN: CAMACHO HERNANDEZ MD PHYSICIAN PAGER NO: INACTIVE RESOURCE: CAMACHO HERNANDEZ MD REASON FOR APPOINTMENT 1. LUMBAR EPIDURAL STEROID INJECTION HISTORY OF PRESENT ILLNESS GENERAL: -. FALL RISK SCREENING: SCREENING :ONE FALL WITHOUT INJURY IN THE PAST YEAR PAIN SCREENING: PATIENT HAS A COMPLAINT OF ACUTE OR CHRONIC PAIN :YES LOCATION OF PAIN:LOW BACK, LEG(S) INTENSITY OF PAIN (SCALE OF 1 TO 10):8 WHAT DOES YOUR PAIN FEEL LIKE: NOT SURE DURATION:CONTINOUS, CONSTANT PAIN IS INCREASED BY: NOTHING PAIN IS DECREASED BY:OTHERS LAYING DOWN TREATMENT/MEDICATIONS USED TO MANAGE PAIN:OPIOIDS LEVEL OF RELIEF FROM PAIN TREATMENTS IN THE PAST:25% PAIN HAS INTERFERED WITH THE FOLLOWING:BATHING/DRESSING, WALKING ABILITY, HOUSEWORK, SLEEP, TRANSPORTATION, TOILETING NURSING NOTE: -. PAIN CENTER INTAKE QUESTIONS: DO YOU HAVE A HISTORY OF MRSA? :YES WOUNDS, ABD 2020 AND CURRENTLY DO YOU TAKE A BLOOD THINNERS? :NO DO YOU HAVE ANY BLEEDING DISORDERS? :NO ANY NEW NUMBNESS OR WEAKNESS IN YOUR LEGS OR ARMS? :NO ANY PACEMAKER,DEFIBRILLATOR, OR DORSAL COLUMN STIMULATOR? :NO DO YOU HAVE ANY RASHES OR OPEN SORES? :YES LEGS ARE YOU ALLERGIC TO IV DYE? :NO ARE YOU DIABETIC? :YES ANY NEW PROBLEMS WITH YOUR MEDICATIONS? :NO HAVE YOU RECEIVED A VACCINE IN THE PAST 30 DAYS? :YES IF SO WHAT VACCINE AND WHEN? COVID #2 10/18/20 DO YOU PLAN TO RECEIVE A VACCINE IN THE NEXT 21 DAYS? :NO DO YOU TAKE ANY IMMUNOSUPPRESSIVE MEDICATIONS? :NO ANY HISTORY OF SEIZURES? :NO ANY HISTORY OF CARDIAC ISSUES OR EVENTS? :NO DO YOU HAVE SLEEP APNEA? :NO ANY RECENT HEAD INJURY? :NO DO YOU HAVE ANY NEW INFECTIONS? :NO IS THERE A CHANCE YOU COULD BE ? :NO ARE YOU BREAST FEEDING? :NO WHEN DID YOU LAST EAT? : -10/31/20 WHEN DID YOU LAST DRINK? : --11/01/20 WHAT DID YOU LAST DRINK? : WATER NAME OF PERSON DRIVING YOU HOME? : WHEELCHAIR THROUGH [place] DO YOU HAVE ANY OTHER QUESTIONS OR CONCERNS? : - CURRENT MEDICATIONS TAKING WHEELCHAIR 1 MISCELLANEOUS DIRECTED M51.16 DAILY TAKING WHEELCHAIR _ MISCELLANEOUS DIRECTED D X: R27.0 DAILY, NOTES: COLE [phone] TAKING GLUCOMETER (VERIO IQ) 1 GLUCOMETER DIRECTED E11.8 FOUR TIMES DAILY TAKING BL LANCETS 1 1 LANCET E11.8 FOUR TIMES DAILY TAKING ONETOUCH VERIO 1 STRIP 1 STRIP E11.9 BID TAKING DEPEND PANT EXTRA LARGE DEPENDS MISCELLANEOUS SUPER ABSORBENT HIP - 155 CM; WAIST - 146 CM ICD:N39.490 EVERY 2-4 HOURS NEEDED MDD: 5 BRIEFS TAKING LEVOTHYROXINE SODIUM 50 MCG TABLET 1 CAPSULE ORALLY ONCE A DAY TAKING SPIRONOLACTONE 50 MG TABLET 1 TAB ORALLY BID TAKING SPIRIVA HANDIHALER 18 MCG CAPSULE 1 CAPSULE INHALATION ONCE A DAY TAKING INSULIN PEN NEEDLE 31G X 6 MM MISCELLANEOUS DIRECTED SQ DAILY BEFORE BEDTIME DX:E11.8 TAKING ONETOUCH VERIO - STRIP DIRECTED SUBCUTANEOUSLY AC BID TAKING TORSEMIDE 10 MG TABLET 1 TABLET ORALLY BID TAKING GABAPENTIN 600 MG TABLET 1 TABLET ORALLY BID TAKING DULOXETINE HCL 30 MG CAPSULE DELAYED RELEASE PARTICLES 1 CAPSULE ORALLY BID TAKING ROLLER WALKER 1 MISCELLANEOUS DIRECTED M47.816 DAILY TAKING COMPRESSION STOCKINGS 20-30 MMHG DIRECTED L03.116 DAILY TAKING LANTUS 100 UNIT/ML SOLUTION 60 IN THE AM AND 55 IN THE EVENING SUBCUTANEOUS , NOTES: 10/31/20 TAKING OMEPRAZOLE 40 MG CAPSULE DELAYED RELEASE 1 CAPSULE 30 MINUTES BEFORE MORNING MEAL ORALLY ONCE A DAY TAKING POTASSIUM CHLORIDE JYOTSNA ER 10 MEQ TABLET EXTENDED RELEASE 1 TABLET WITH FOOD ORALLY THREE TIMES DAILY TAKING RIFAXIMIN 550 MG TABLET 1 TABLET ORALLY TWICE A DAY TAKING ACETAMINOPHEN 325 MG TABLET 2 TABLETS NEEDED ORALLY EVERY 4 HRS TAKING BENADRYL ALLERGY 25 MG CAPSULE 1 CAPSULE AT BEDTIME NEEDED ORALLY EVERY 6 HOURS PRN TAKING ONDANSETRON HCL 4 MG TABLET 1 TABLET ORALLY Q 6 HOURS PRN, NOTES: PRN TAKING MILK OF MAGNESIA 2400 MG/30ML SUSPENSION 10 ML NEEDED ORALLY DAILY, NOTES: PRN TAKING BIOFREEZE EVERY 6 HOURS NEEDED, NOTES: PRN TAKING ALBUTEROL SULFATE (2.5 MG/3ML) 0.083% NEBULIZATION SOLUTION 3 ML NEEDED INHALATION EVERY 2 HRS TAKING ENEMA DISPOSABLE - ENEMA DIRECTED RECTAL TAKING COUGH DROPS MENTHOL - LOZENGE DIRECTED MOUTH/THROAT NEEDED EVERY HOUR TAKING OXYCODONE HCL 10 MG TABLET 1 TABLET NEEDED, MDD OF 4 TABS ORALLY EVERY 6 HRS FOR PAIN MDD=6, NOTES: 10/31/20 TAKING FENTANYL 12 MCG/HR PATCH 72 HOUR 1 PATCH TO SKIN TRANSDERMAL EVERY 3 DAYS, NOTES: 10/31/20 NOT-TAKING MAGNESIUM 400 MG CAPSULE 1 TABLET WITH A MEAL ORALLY TWICE A DAY NOT-TAKING METOPROLOL TARTRATE 25 MG TABLET 1 TABLET WITH FOOD ORALLY TWICE A DAY, NOTES: 10/31/20 NOT-TAKING LACTULOSE 20 GM/30ML SOLUTION 15 ML ORALLY TID NOT-TAKING BUTRANS 15 MCG/HR PATCH WEEKLY 1 PATCH TO SKIN TRANSDERMAL WEEKLY, REMOVE OLD PATCH NOT-TAKING BACTRIM DS 800-160 MG TABLET 1 TABLET ORALLY TWICE A DAY NOT-TAKING GUAIASORB DM 10-100 MG/5ML LIQUID 10 ML NEEDED ORALLY EVERY 4 HRS NOT-TAKING COLACE 100 MG CAPSULE 1 CAPSULE NEEDED ORALLY ONCE A DAY, NOTES: 02/04/2020 0800 NOT-TAKING BUTRANS 10 MCG/HR PATCH WEEKLY 1 PATCH TO SKIN TRANSDERMAL CHANGE PATCH EVERY 7 DAYS NOT-TAKING FAMOTIDINE 20 MG TABLET 1 TABLET AT BEDTIME ORALLY ONCE A DAY NOT-TAKING FERROUS SULFATE 325 (65 FE) MG TABLET 1 TABLET ORALLY ONCE A DAY NOT-TAKING XIFAXAN 550 MG TABLET 1 TABLET ORALLY TWICE A DAY NOT-TAKING TOUJEO SOLOSTAR 300 UNIT/ML SOLUTION PEN-INJECTOR DIRECTED SUBCUTANEOUS 80 UNITS IN AM 70 UNITS AT HS NOT-TAKING FISH OIL 1000 MG CAPSULE 1 CAPSULE ORALLY ONCE A DAY, NOTES: OTC NOT-TAKING KRISTALOSE 10 GM PACKET 1 PACKET ORALLY ONCE A DAY NOT-TAKING LIDODERM 5 % PATCH 1 PATCH REMOVE AFTER 12 HOURS EXTERNALLY ONCE A DAY NOT-TAKING TIZANIDINE HCL 4 MG TABLET 1 TABLET NEEDED ORALLY FOUR TIMES DAILY NOT-TAKING DIFLUCAN 100 MG TABLET 1 TABLET ORALLY BID NOT-TAKING HYDROXYZINE HCL 25 MG TABLET 1 TABLET NEEDED ORALLY EVERY 8 HRS NOT-TAKING NYSTATIN [id number] UNIT/GM CREAM 1 APPLICATION EXTERNALLY TWICE A DAY NOT-TAKING TRAMADOL HCL 50 MG TABLET 1 TABLET NEEDED ORALLY TID PRN PAIN NOT-TAKING KEFLEX 500 MG CAPSULE 1 CAPSULE ORALLY EVERY 12 HRS NOT-TAKING METOLAZONE 5 MG TABLET 1 TABLET ORALLY ONCE A DAY MEDICATION LIST REVIEWED AND RECONCILED WITH THE PATIENT PAST MEDICAL HISTORY OBESITY, MORBID CERVICAL/THORACIC/LUMBAR DJD-L2-S1 DIFFUSE BULGES-AT L5/S1 ABUTTING TS, B S1 PERIPHERAL EDEMA-01/2011 [id number] 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 BARAHONA, [facility], [place] OBSTRUCTIVE SLEEP APNEA HYPERLIPIDEMIA 2B COPD-07/2011 FEV1 1.9L (71%)/RATIO 92% T2DM ID GERD/HIATAL HERNIA-SEEN BY APRIL 2011 UPPER GI WITH SMALL BOWEL FOLLOW-THROUGH SCHIZOAFFECTIVE DISORDER-SPELLED BY DR. OSBORNE NONALCOHOLIC FATTY LIVER DISEASE-SEEN BY MARCH 2011 CT-NORMAL WORKUP 2010--CHRONIC HEPATITIS GRADE 2/4 WITH GRADE 4/4 CIRRHOSIS BY LIVER BIOPSY JULY 2011 VASOMOTOR SYMPTOMS VITAMIN D DEFICIENCY ALLERGIC RHINITIS RECURRENT CANDIDAL DERMATITIS ANTERIOR ABDOMEN LEUKOPENIA, CHRONIC CHRONIC ANTERIOR ABDOMINAL WALL PANNICULITIS PORTAL VENOUS HYPERTENSION SEEN BY MARCH 2011 CT CKD III-12/2013 NORMAL B RENAL US CHF 2 DIASTOLIC DYSFUNCTION-01/2017 TTE-GUADALUPE C GRADE 1 DIASTOLIC DYSFUNCTION, VERY MILD MR/TR B SHOULDER IMPIGNMENT SYNDROME-09/2015 L SHOULDER XRAY C MILD AC ARTHRITIS//S/P R PROXIMAL HUMERUS FRACTURE S/P MECHANICAL [id number] PER HEBERT RECURRENT HEPATIC ENCEPHALOPATHY-01/2017 MRI BRAIN MILD /VOLUME LOSS ASTHMA CELLULITIS HYPOTHYROIDISM MRSA (PER PT REPORT) ABDOMEN 06/16/2020 CHEST PAIN, HEAVINESS, SOB, ADMITTED TO [facility], DX TIA ALLERGIES CIPRO: CONFUSION - SIDE EFFECTS DOXYCYCLINE HYCLATE: ITCHY - ALLERGY MOTRIN: HIVES - ALLERGY SOCIAL HISTORY GENERAL: TOBACCO USE ARE YOU A:NONSMOKER LATEX QUESTIONNAIRE LATEX ALLERGY : HAVE YOU EVER DEVELOPED ANY TYPE OF REACTION AFTER HANDLING LATEX PRODUCTS SUCH RUBBER GLOVES, CONDOMS, DIAPHRAGMS, BALLOONS, SOCKS, OR UNDERWEAR?NO ALLERGY TO SOME TAPE - ONLY USES PAPER TAPE LATEX ALLERGY : HAVE YOU EVER DEVELOPED ANY TYPE OF REACTION DURING OR AFTER DENTAL APPOINTMENT, VAGINAL/RECTAL EXAMINATION, SURGICAL PROCEDURE, OR ANY OTHER EXPOSURE?NO LATEX RISK : HAVE YOU EVER HAD ANY DIFFICULTY BREATHING OR HIVES AFTER EATING OR HANDLING ANY FRUITS, OR VEGETABLES; SUCH KIWI, BANANAS, STONE FRUITS, OR CHESTNUTSNO LATEX RISK : DO YOU HAVE A PREVIOUS PERSONAL HISTORY OF MORE THAN NINE SURGERIES, SPINA BIFIDA, OR REPEATED CATHERIZATIONS? NO LATEX RISK : ARE YOU FREQUENTLY EXPOSED TO LATEX PRODUCTS IN YOUR OCCUPATION?NO DATE ASKED : 10/04/2020 LUNG CANCER SCREENING SMOKING STATUS:NON SMOKER BMI CARE GOAL FOLLOW-UP ABOVE NORMAL BMI FOLLOW-UPGIVING ENCOURAGEMENT TO EXERCISE ALCOHOL SCREENING DID YOU HAVE A DRINK CONTAINING ALCOHOL IN THE PAST YEAR?NO POINTS0 INTERPRETATIONNEGATIVE RECREATIONAL DRUG USE DRUG USE?NO CAFFEINE OCCASIONAL ONLY. SEXUAL HX HAD SEX IN THE LAST 12 MONTHS (VAGINAL, ORAL, OR ANAL)?NO HAVE YOU EVER HAD AN STD?NO SIKH [id number] [employer]ODOO LANGUAGE LANGUAGES SPOKEN:SWEDISH EDUCATION LEVEL OF EDUCATION:FINISHED HIGH SCHOOL LEARNING BARRIERS / SPECIAL NEEDS CHANGE FROM LAST VISIT?NO BARRIERS TO LEARNING?NO HEARING IMPAIRED?NO VISION IMPAIRED?YES COGNITIVELY IMPAIRED?NO :CORRECTIVE LENSES READINESS TO LEARN?YES LEARNING PREFERENCES?YES :DEMONSTRATION/VERBAL INSTRUCTION LEARNING CAPABILITIES PRESENT?YES EMOTIONAL BARRIERS?NO SPECIAL DEVICES?NO FOREIGN SERVICE OFFICER NEEDED?NO DOMESTIC VIOLENCE DO YOU FEEL SAFE IN YOUR ENVIRONMENT?YES OCCUPATION: RETIRED. DIET: CARBOHYDRATE CONTROLLED. EXERCISE: NO REGULAR EXERCISE. MARITAL STATUS: SINGLE. OTHERS AT HOME: NONE. DAUGHTER LIVES NEAR BY.. - HAS THE PATIENT BEEN EDUCATED REGARDING HIS/HER PLAN OF CARE?YES HAS THE PATIENT BEEN EDUCATED REGARDING PAIN, THE RISK FOR PAIN, THE IMPORTANCE OF EFFECTIVE PAIN MANAGEMENT, AND THE PAIN ASSESSMENT PROCESS?YES HOUSING: [facility] KEEP HOME. ADVANCE DIRECTIVE ADVANCE DIRECTIVE DISCUSSED WITH PATIENT:YES PT STATES THAT SHE DOES NOT HAVE HCP AT THIS TIME, DECLINES ASSISTANCE WITH PAPERWORK. VITAL SIGNS WT 283.4 LBS, HT 78 IN, BMI 32.75 INDEX, BP 166/93 MM HG, HR 78 /MIN, RR 18 /MIN, TEMP 98.1 F, OXYGEN SAT % 95%, SAFE IN ENV? (Y/N) YES, NA INITIALS ND 08:30, REVIEWED BY: JACQUELINE. EXAMINATION GENERAL EXAMINATION: THE PATIENT IS ALERT, ORIENTED TIMES THREE AND COOPERATIVE. LUNGS ARE CLEAR TO AUSCULTATION. HEART SHOWS REGULAR RHYTHM, NO MURMURS AND NO GALLOPS. ASSESSMENTS INTERVERTEBRAL DISC DISORDERS WITH RADICULOPATHY, LUMBOSACRAL REGION - M51.17 (PRIMARY) TREATMENT INTERVERTEBRAL DISC DISORDERS WITH RADICULOPATHY, LUMBOSACRAL REGION LAB: FINGERSTICK BLOOD SUGAR (ORDERED FOR 11/01/2020) LIYAH VALERO 11/01/2020 09:23:33 AM - FSBS 68 [facility] FLUORO GUIDE SPINE INJECTION (PAIN)[id number] SALINE LOCKMEGANDANILO 11/01/2020 9:29:57 AM > 22G IV ACCESS OBTAINED IN LEFT WRIST ON FIRST ATTEMPT. PATIENT TOLERATED WELL. COMPLETION OF PROCEDURAL VISIT WHEN MEETS CRITERIADANILO GUZMAN 11/01/2020 11:43:08 AM > CRITERIA MET OTHERS NOTES: Yue MORGAN, ADDICTION NURSE. PROCEDURES PAIN NURSING RECORD PROCEDURE IN ROOM 1015, PHYSICIAN IN ROOM 1042, START 1048, FINISH 1055, PHYSICIAN OUT OF ROOM 1058, OUT OF ROOM 1105, ECG NORMAL SINUS, PATIENT SHIELDED YES, SAFETY STRAP YES, PREP BETADINE BY JACQUELINE, DRESSING TEGADERM BY DR HERNANDEZ LOC: 1. ALERT, ORIENTED, [facility] 11/01/2020 10:34:28 AM > RESP: 1. REGULAR, NO DYSPNEA, [facility] 11/01/2020 10:34:34 AM > COLOR: 1. PINK, [facility] 11/01/2020 10:34:40 AM > SKIN: 1. WARM, DRY, [facility] 11/01/2020 10:34:51 AM > POSITION: 1. PRONE, [facility] 11/01/2020 10:34:58 AM > VITALS: [facility] 11/01/2020 10:35:25 AM > 72 HR, 100%, 156/89 [facility] 11/01/2020 1045 AM >75HR,100% ,156/89 , [facility] 11/01/2020 10:56:16 AM > , [facility] 11/01/2020 10:56:22 AM > 75HR, 98%, 146/98 EXIT VITALS HR 79, 94%, 123/86 NOTES Daphne GUZMAN RN COMPLETION OF PROCEDURE APPOINTMENT: POST PAIN 1, DRESSING SITE DRY AND INTACT MID BACK LUMBAR, IV DISCONTINUED, SITE CLEAR, CATHETER INTACT, GAIT WHEELCHAIR, TEACHING COMPLETED, PATIENT ACKNOWLEDGES UNDERSTANDING YES REPORT TO FREDIS PEARSON AT [facility] @ 1115., PROCEDURE APPOINTMENT COMPLETED AT 1135 : CRITERIA MET PRE PROCEDURE DIAGNOSIS LUMBOSACRAL DISC DISORDER WITH RADICULOPATHY POST PROCEDURE DIAGNOSIS LUMBOSACRAL DISC DISORDER WITH RADICULOPATHY PROCEDURE LUMBAR EPIDURAL STEROID INJECTION UNDER FLUOROSCOPIC GUIDANCE SURGEON DR. CAMACHO HERNANDEZ TIMBER TREATING TANK OPERATOR NONE ANESTHESIA LOCAL PRE PROCEDURE NOTE THE PATIENT HAS A HISTORY OF CHRONIC LOW BACK PAIN. I EVALUATED THE PATIENT AND REVIEWED THE CHART. I WENT OVER THE RISKS, ALTERNATIVES, AND BENEFITS ASSOCIATED WITH THIS PROCEDURE. THE PATIENT WOULD LIKE TO PROCEED AND GIVE CONSENT TO PERFORMED THE PROCEDURE. THE PATIENT DENIES UNEXPLAINABLE WEIGHT LOSS, FEVER, CHILLS, OR NEW CHANGES IN URINARY OR BOWEL CONTROL. THE PATIENT IS COVID-19 NEGATIVE DESCRIPTION OF PROCEDURE THE PATIENT WAS BROUGHT TO THE PROCEDURE ROOM AND PLACED IN THE PRONE POSITION. THE LUMBOSACRAL AREA WAS CLEANED WITH BETADINE SOLUTION AND DRAPED ASEPTICALLY. THE PROCEDURE WAS DONE UNDER STERILE CONDITIONS. A TIMEOUT WAS PERFORMED WHERE THE CONSENTED SITE WAS VERIFIED WITH EVERYONE IN THE ROOM. UNDER FLUOROSCOPIC GUIDANCE, THE TARGET POINT WAS SELECTED AT THE INTERLAMINAR LEVEL OF L5-S1. I CONFIRMED AGAIN THE SITE OF THE TARGET. LIDOCAINE WAS USED TO NUMB THE SKIN AND THE SUBCUTANEOUS TISSUE BELOW IT. EPIDURAL TUOHY NEEDLE, 17-GAUGE, WAS ADVANCED UNDER FLUOROSCOPIC GUIDANCE AND FOLLOWING PATIENT FEEDBACK UNTIL THE EPIDURAL SPACE WAS REACHED 8 CM DEEP INTO THE SKIN BY THE LOSS OF RESISTANCE TECHNIQUE. ISOVUE-M DYE 30%, 0.25 ML, WAS INJECTED SHOWING ADEQUATE SPREAD OF THE DYE. THEN, A SOLUTION OF 3 ML OF NORMAL SALINE WITH DEPO-MEDROL 40 MG WAS INJECTED SLOWLY FOLLOWING PATIENT FEEDBACK. THE MEDICATIONS WERE VERIFIED WITH THE NURSE. THERE WAS NO EVIDENCE OF BLOOD, PARESTHESIA OR CEREBROSPINAL FLUID DURING THE PROCEDURE. THE PATIENT WAS SENT TO THE RECOVERY ROOM. THE PATIENT WAS MOVING THE EXTREMITIES AND DOING WELL. THERE WERE NO COMPLICATIONS DURING THE PROCEDURE. ESTIMATED BLOOD LOSS WAS LESS THAN 5 ML. FLUOROSCOPY TIME WAS 12 SECONDS POST PROCEDURE NOTE WITH A SMALL AMOUNT OF VOLUME, SHE WAS FEELING THE SENSATION DOWN HER LEGS. THE PATIENT WILL BE SEEN IN A FOLLOW UP IN THE NEXT FEW WEEKS. I AM LOOKING FOR LONG LASTING RELIEF FOR THE PATIENT WITH THIS INTERVENTION. INSTRUCTIONS WERE GIVEN, QUESTIONS WERE ANSWERED, AND THE PATIENT EXPRESSED UNDERSTANDING AND AGREES WITH THE PLAN. I, SYDNEY FAIRBANKS, DOCUMENTED THE ABOVE INFORMATION ACTING A SCRIBE FOR DR. HERNANDEZ. I HAVE REVIEWED THE ABOVE DOCUMENT, WRITTEN BY SYDNEY FAIRBANKS, THREAD MARKER, AND I VERIFY THAT IT IS ACCURATE PROCEDURE CODES 69808 LUMBAR/SACRAL W/ IMAGING DISPOSITION & COMMUNICATION FOLLOW UP FOLLOW UP WITH PHOTOGRAPHER NEWS (REASON: POST LUMBAR EPIDURAL STEROID INJECTION) ELECTRONICALLY SIGNED BY CAMACHO HERNANDEZ MD, MD ON 11/01/2020 AT 04:41 PM EST DISCLAIMER : THIS IS A VISIT SUMMARY EXTRACTED FROM THE [employer] PTY CHART. IT IS NOT A COPY OF THE [employer] PTY PROGRESS NOTE. ALTAGRACIA
== END ==
LOC: M PAIN 08:30
PROVIDERS: ATTEND Anesthesiology
DX: M51.17 Intervertebral disc disorders with radiculopathy, lumbosacral region (principal); D50.9 Iron deficiency anemia, unspecified; I12.9 Hypertensive chronic kidney disease with stage 1 through stage 4 chronic kidney disease, or unspecified chronic kidney disease; G47.33 Obstructive sleep apnea (adult) (pediatric); E78.5 Hyperlipidemia, unspecified; J44.9 Chronic obstructive pulmonary disease, unspecified; E11.22 Type 2 diabetes mellitus with diabetic chronic kidney disease; K21.9 Gastro-esophageal reflux disease without esophagitis; K76.0 Fatty (change of) liver, not elsewhere classified; E55.9 Vitamin D deficiency, unspecified; N18.4 Chronic kidney disease, stage 4 (severe); E03.9 Hypothyroidism, unspecified; Z79.4 Long term (current) use of insulin; Z79.891 Long term (current) use of opiate analgesic; Z79.899 Other long term (current) drug therapy; Z88.1 Allergy status to other antibiotic agents; Z88.6 Allergy status to analgesic agent
CPT/HCPCS: 62323; J1030; Q9967

== ENCOUNTER → 2020-11-02 | Outpatient (REF) | payer MEDICARE, MEDICAID, OTHER ==
[~2020-11-02] MED LIST changes: -ISOVUE-M 300 61% 15ML VIAL As Ordered ONE; -LIDOCAINE 1% SDV 30ML VIAL As Ordered ONE; -methylPREDNISolone SUSP 40MG/ML 1ML VIAL (DEPO MEDROL) As Ordered ONE
== END ==
LOC: SKLAB5 06:32
PROVIDERS: ATTEND Internal Medicine
DX: Z20.822 Contact with and (suspected) exposure to COVID-19 (principal)

== ENCOUNTER → 2020-11-09 | Outpatient (REF) | payer MEDICARE, MEDICAID, OTHER | LOC: SKLAB5 06:45 | PROVIDERS: ATTEND Internal Medicine | DX: Z11.52 Encounter for screening for COVID-19 (principal) ==

== ENCOUNTER → 2020-11-16 | Outpatient (REF) | payer MEDICARE, MEDICAID, OTHER ==
[~2020-11-16] MED LIST changes: +ASPI-569 PO; -ASPI81TAEC PO; +DEXT4TAB2 PO; -GLUC4CHW19 PO
== END ==
LOC: SKLAB5 07:18
PROVIDERS: ATTEND Internal Medicine
DX: Z20.822 Contact with and (suspected) exposure to COVID-19 (principal)

== ENCOUNTER → 2020-11-18 | Outpatient (CLI) | payer MEDICARE, MEDICAID ==
[~2020-11-18] MED LIST changes: -ASPI-569 PO; +ASPI81TAEC PO; -DEXT4TAB2 PO; +GLUC4CHW19 PO
--- NOTE | 2020-11-22 05:58 | ECWPNPC ---
PATIENT NAME: HODAN FARFAN : 1955 GENDER: FEMALE VISIT DATE: 11/18/2020 DISCHARGE DATE: 11/18/20 161 VISIT LOCKED DATE TIME: PHYSICIAN: CAMACHO HERNANDEZ MD PHYSICIAN PAGER NO: INACTIVE RESOURCE: CAMACHO HERNANDEZ MD REASON FOR APPOINTMENT 1. POST LUMBAR EPIDURAL STEROID INJECTION HISTORY OF PRESENT ILLNESS GENERAL: 65-YEAR-OLD FEMALE PATIENT WITH A HISTORY OF CHRONIC LOW BACK AND MAINLY LEFT LEG PAIN. THE PATIENT DESCRIBES THE PAIN CONSTANT, ACHING AND SEVERE WITH A PAIN SCORE RANGING FROM 7-10/10 IN THE BACK WITH RADIATION TO MAINLY THE LEFT LEG. THE PAIN IS FORWARD THE LEFT BUTTOCK AND THE LEG. WE DID AN EPIDURAL THAT UNFORTUNATELY DID NOT HELP HER. SHE IS USING NARCOTICS FOR HER PAIN. FALL RISK SCREENING: SCREENING :NO FALLS REPORTED IN THE LAST YEAR PAIN SCREENING: PATIENT HAS A COMPLAINT OF ACUTE OR CHRONIC PAIN :YES LOCATION OF PAIN:LOW BACK, LEG(S) INTENSITY OF PAIN (SCALE OF 1 TO 10):9 WHAT DOES YOUR PAIN FEEL LIKE:SHARP, STABBING, THROBBING DURATION:CONTINOUS, CONSTANT PAIN IS INCREASED BY:ACTIVITIES PAIN IS DECREASED BY: NOTHING NURSING NOTE: -. PAIN CENTER INTAKE QUESTIONS: DO YOU HAVE A HISTORY OF MRSA? :YES TO STOMACH 7 MONTHS AGO DO YOU TAKE A BLOOD THINNERS? :NO DO YOU HAVE ANY BLEEDING DISORDERS? :NO ANY NEW NUMBNESS OR WEAKNESS IN YOUR LEGS OR ARMS? :YES LEGS AND FEET ANY PACEMAKER,DEFIBRILLATOR, OR DORSAL COLUMN STIMULATOR? :NO DO YOU HAVE ANY RASHES OR OPEN SORES? :NO ARE YOU ALLERGIC TO IV DYE? :NO ARE YOU DIABETIC? :YES ANY NEW PROBLEMS WITH YOUR MEDICATIONS? :NO HAVE YOU RECEIVED A VACCINE IN THE PAST 30 DAYS? :NO RECEIVED COVID VACCINE #2 ABOUT A MONTH AGO. DO YOU PLAN TO RECEIVE A VACCINE IN THE NEXT 21 DAYS? :NO DO YOU NEED ANY PRESCRIPTION? :NO DO YOU TAKE ANY IMMUNOSUPPRESSIVE MEDICATIONS? :NO IS THERE A CHANCE YOU COULD BE ? :NO ARE YOU BREAST FEEDING? :NO CURRENT MEDICATIONS TAKING WHEELCHAIR 1 MISCELLANEOUS DIRECTED M51.16 DAILY TAKING WHEELCHAIR _ MISCELLANEOUS DIRECTED D X: R27.0 DAILY, NOTES: COLE [phone] TAKING GLUCOMETER (VERIO IQ) 1 GLUCOMETER DIRECTED E11.8 FOUR TIMES DAILY TAKING BL LANCETS 1 1 LANCET E11.8 FOUR TIMES DAILY TAKING ONETOUCH VERIO 1 STRIP 1 STRIP E11.9 BID TAKING DEPEND PANT EXTRA LARGE DEPENDS MISCELLANEOUS SUPER ABSORBENT HIP - 155 CM; WAIST - 146 CM ICD:N39.490 EVERY 2-4 HOURS NEEDED MDD: 5 BRIEFS TAKING LEVOTHYROXINE SODIUM 50 MCG TABLET 1 CAPSULE ORALLY ONCE A DAY TAKING SPIRONOLACTONE 50 MG TABLET 1 TAB ORALLY BID TAKING SPIRIVA HANDIHALER 18 MCG CAPSULE 1 CAPSULE INHALATION ONCE A DAY TAKING INSULIN PEN NEEDLE 31G X 6 MM MISCELLANEOUS DIRECTED SQ DAILY BEFORE BEDTIME DX:E11.8 TAKING ONETOUCH VERIO - STRIP DIRECTED SUBCUTANEOUSLY AC BID TAKING TORSEMIDE 10 MG TABLET 1 TABLET ORALLY BID TAKING GABAPENTIN 600 MG TABLET 1 TABLET ORALLY BID TAKING DULOXETINE HCL 30 MG CAPSULE DELAYED RELEASE PARTICLES 1 CAPSULE ORALLY BID TAKING ROLLER WALKER 1 MISCELLANEOUS DIRECTED M47.816 DAILY TAKING COMPRESSION STOCKINGS 20-30 MMHG DIRECTED L03.116 DAILY TAKING LANTUS 100 UNIT/ML SOLUTION 60 IN THE AM AND 55 IN THE EVENING SUBCUTANEOUS TAKING OMEPRAZOLE 40 MG CAPSULE DELAYED RELEASE 1 CAPSULE 30 MINUTES BEFORE MORNING MEAL ORALLY ONCE A DAY TAKING POTASSIUM CHLORIDE JYOTSNA ER 10 MEQ TABLET EXTENDED RELEASE 1 TABLET WITH FOOD ORALLY THREE TIMES DAILY TAKING ACETAMINOPHEN 325 MG TABLET 2 TABLETS NEEDED ORALLY EVERY 4 HRS TAKING BENADRYL ALLERGY 25 MG CAPSULE 1 CAPSULE AT BEDTIME NEEDED ORALLY EVERY 6 HOURS PRN TAKING ONDANSETRON HCL 4 MG TABLET 1 TABLET ORALLY Q 6 HOURS PRN TAKING MILK OF MAGNESIA 2400 MG/30ML SUSPENSION 10 ML NEEDED ORALLY DAILY TAKING BIOFREEZE EVERY 6 HOURS NEEDED TAKING ALBUTEROL SULFATE (2.5 MG/3ML) 0.083% NEBULIZATION SOLUTION 3 ML NEEDED INHALATION EVERY 2 HRS TAKING ENEMA DISPOSABLE - ENEMA DIRECTED RECTAL TAKING COUGH DROPS MENTHOL - LOZENGE DIRECTED MOUTH/THROAT NEEDED EVERY HOUR TAKING FENTANYL 12 MCG/HR PATCH 72 HOUR 1 PATCH TO SKIN TRANSDERMAL EVERY 3 DAYS TAKING OXYCODONE HCL 5 MG TABLET 1 TABLET NEEDED, MDD OF 4 TABS ORALLY EVERY 4 HOURS NEEDED TAKING XIFAXAN 550 MG TABLET 1 TABLET ORALLY TWICE A DAY TAKING PROPRANOLOL HCL 20 MG TABLET 1 TABLET ORALLY BID TAKING LIPITOR 40 MG TABLET 1 TABLET ORALLY ONCE A DAY TAKING ASPIR-81 NOT-TAKING RIFAXIMIN 550 MG TABLET 1 TABLET ORALLY TWICE A DAY NOT-TAKING MAGNESIUM 400 MG CAPSULE 1 TABLET WITH A MEAL ORALLY TWICE A DAY NOT-TAKING METOPROLOL TARTRATE 25 MG TABLET 1 TABLET WITH FOOD ORALLY TWICE A DAY, NOTES: 10/31/20 NOT-TAKING LACTULOSE 20 GM/30ML SOLUTION 15 ML ORALLY TID NOT-TAKING BUTRANS 15 MCG/HR PATCH WEEKLY 1 PATCH TO SKIN TRANSDERMAL WEEKLY, REMOVE OLD PATCH NOT-TAKING BACTRIM DS 800-160 MG TABLET 1 TABLET ORALLY TWICE A DAY NOT-TAKING GUAIASORB DM 10-100 MG/5ML LIQUID 10 ML NEEDED ORALLY EVERY 4 HRS NOT-TAKING COLACE 100 MG CAPSULE 1 CAPSULE NEEDED ORALLY ONCE A DAY, NOTES: 02/04/2020 0800 NOT-TAKING BUTRANS 10 MCG/HR PATCH WEEKLY 1 PATCH TO SKIN TRANSDERMAL CHANGE PATCH EVERY 7 DAYS NOT-TAKING FAMOTIDINE 20 MG TABLET 1 TABLET AT BEDTIME ORALLY ONCE A DAY NOT-TAKING FERROUS SULFATE 325 (65 FE) MG TABLET 1 TABLET ORALLY ONCE A DAY NOT-TAKING XIFAXAN 550 MG TABLET 1 TABLET ORALLY TWICE A DAY NOT-TAKING TOUJEO SOLOSTAR 300 UNIT/ML SOLUTION PEN-INJECTOR DIRECTED SUBCUTANEOUS 80 UNITS IN AM 70 UNITS AT HS NOT-TAKING FISH OIL 1000 MG CAPSULE 1 CAPSULE ORALLY ONCE A DAY, NOTES: OTC NOT-TAKING KRISTALOSE 10 GM PACKET 1 PACKET ORALLY ONCE A DAY NOT-TAKING LIDODERM 5 % PATCH 1 PATCH REMOVE AFTER 12 HOURS EXTERNALLY ONCE A DAY NOT-TAKING TIZANIDINE HCL 4 MG TABLET 1 TABLET NEEDED ORALLY FOUR TIMES DAILY NOT-TAKING DIFLUCAN 100 MG TABLET 1 TABLET ORALLY BID NOT-TAKING HYDROXYZINE HCL 25 MG TABLET 1 TABLET NEEDED ORALLY EVERY 8 HRS NOT-TAKING NYSTATIN 080014 UNIT/GM CREAM 1 APPLICATION EXTERNALLY TWICE A DAY NOT-TAKING TRAMADOL HCL 50 MG TABLET 1 TABLET NEEDED ORALLY TID PRN PAIN NOT-TAKING KEFLEX 500 MG CAPSULE 1 CAPSULE ORALLY EVERY 12 HRS NOT-TAKING METOLAZONE 5 MG TABLET 1 TABLET ORALLY ONCE A DAY MEDICATION LIST REVIEWED AND RECONCILED WITH THE PATIENT PAST MEDICAL HISTORY OBESITY, MORBID CERVICAL/THORACIC/LUMBAR DJD-L2-S1 DIFFUSE BULGES-AT L5/S1 ABUTTING TS, B S1 PERIPHERAL EDEMA-01/2011 [id number] 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 BARAHONA, [facility], [place] OBSTRUCTIVE SLEEP APNEA HYPERLIPIDEMIA 2B COPD-07/2011 FEV1 1.9L (71%)/RATIO 92% T2DM ID GERD/HIATAL HERNIA-SEEN BY APRIL 2011 UPPER GI WITH SMALL BOWEL FOLLOW-THROUGH SCHIZOAFFECTIVE DISORDER-SPELLED BY DR. OSBORNE NONALCOHOLIC FATTY LIVER DISEASE-SEEN BY MARCH 2011 CT-NORMAL WORKUP 2010--CHRONIC HEPATITIS GRADE 2/4 WITH GRADE 4/4 CIRRHOSIS BY LIVER BIOPSY JULY 2011 VASOMOTOR SYMPTOMS VITAMIN D DEFICIENCY ALLERGIC RHINITIS RECURRENT CANDIDAL DERMATITIS ANTERIOR ABDOMEN LEUKOPENIA, CHRONIC CHRONIC ANTERIOR ABDOMINAL WALL PANNICULITIS PORTAL VENOUS HYPERTENSION SEEN BY MARCH 2011 CT CKD III-12/2013 NORMAL B RENAL US CHF 2 DIASTOLIC DYSFUNCTION-01/2017 TTE-GUADALUPE C GRADE 1 DIASTOLIC DYSFUNCTION, VERY MILD MR/TR B SHOULDER IMPIGNMENT SYNDROME-09/2015 L SHOULDER XRAY C MILD AC ARTHRITIS//S/P R PROXIMAL HUMERUS FRACTURE S/P MECHANICAL [id number] PER [facility]BERT RECURRENT HEPATIC ENCEPHALOPATHY-01/2017 MRI BRAIN MILD /VOLUME LOSS ASTHMA CELLULITIS HYPOTHYROIDISM MRSA (PER PT REPORT) ABDOMEN 06/16/2020 CHEST PAIN, HEAVINESS, SOB, ADMITTED TO [facility], DX TIA ALLERGIES CIPRO: CONFUSION - SIDE EFFECTS DOXYCYCLINE HYCLATE: ITCHY - ALLERGY MOTRIN: HIVES - ALLERGY SOCIAL HISTORY GENERAL: TOBACCO USE ARE YOU A:NONSMOKER LATEX QUESTIONNAIRE LATEX ALLERGY : HAVE YOU EVER DEVELOPED ANY TYPE OF REACTION AFTER HANDLING LATEX PRODUCTS SUCH RUBBER GLOVES, CONDOMS, DIAPHRAGMS, BALLOONS, SOCKS, OR UNDERWEAR?NO ALLERGY TO SOME TAPE - ONLY USES PAPER TAPE LATEX ALLERGY : HAVE YOU EVER DEVELOPED ANY TYPE OF REACTION DURING OR AFTER DENTAL APPOINTMENT, VAGINAL/RECTAL EXAMINATION, SURGICAL PROCEDURE, OR ANY OTHER EXPOSURE?NO DATE ASKED : 10/04/2020 LATEX RISK : HAVE YOU EVER HAD ANY DIFFICULTY BREATHING OR HIVES AFTER EATING OR HANDLING ANY FRUITS, OR VEGETABLES; SUCH KIWI, BANANAS, STONE FRUITS, OR CHESTNUTSNO LATEX RISK : DO YOU HAVE A PREVIOUS PERSONAL HISTORY OF MORE THAN NINE SURGERIES, SPINA BIFIDA, OR REPEATED CATHERIZATIONS? NO LATEX RISK : ARE YOU FREQUENTLY EXPOSED TO LATEX PRODUCTS IN YOUR OCCUPATION?NO LUNG CANCER SCREENING SMOKING STATUS:NON SMOKER BMI CARE GOAL FOLLOW-UP ABOVE NORMAL BMI FOLLOW-UPGIVING ENCOURAGEMENT TO EXERCISE ALCOHOL SCREENING DID YOU HAVE A DRINK CONTAINING ALCOHOL IN THE PAST YEAR?NO POINTS0 INTERPRETATIONNEGATIVE RECREATIONAL DRUG USE DRUG USE?NO CAFFEINE OCCASIONAL ONLY. SEXUAL HX HAD SEX IN THE LAST 12 MONTHS (VAGINAL, ORAL, OR ANAL)?NO HAVE YOU EVER HAD AN STD?NO ANABAPTISM [id number] ALEVISM LANGUAGE LANGUAGES SPOKEN:SURINAMESE EDUCATION LEVEL OF EDUCATION:FINISHED HIGH SCHOOL LEARNING BARRIERS / SPECIAL NEEDS CHANGE FROM LAST VISIT?NO BARRIERS TO LEARNING?NO HEARING IMPAIRED?NO VISION IMPAIRED?YES COGNITIVELY IMPAIRED?NO :CORRECTIVE LENSES READINESS TO LEARN?YES LEARNING PREFERENCES?YES :DEMONSTRATION/VERBAL INSTRUCTION LEARNING CAPABILITIES PRESENT?YES EMOTIONAL BARRIERS?NO SPECIAL DEVICES?NO CUTTING AND CREASING PRESS OPERATOR NEEDED?NO DOMESTIC VIOLENCE DO YOU FEEL SAFE IN YOUR ENVIRONMENT?YES OCCUPATION: RETIRED. DIET: CARBOHYDRATE CONTROLLED. EXERCISE: NO REGULAR EXERCISE. MARITAL STATUS: SINGLE. OTHERS AT HOME: NONE. DAUGHTER LIVES NEAR BY.. - HAS THE PATIENT BEEN EDUCATED REGARDING HIS/HER PLAN OF CARE?YES HAS THE PATIENT BEEN EDUCATED REGARDING PAIN, THE RISK FOR PAIN, THE IMPORTANCE OF EFFECTIVE PAIN MANAGEMENT, AND THE PAIN ASSESSMENT PROCESS?YES HOUSING: [facility] KEEP HOME. ADVANCE DIRECTIVE ADVANCE DIRECTIVE DISCUSSED WITH PATIENT:YES PT STATES THAT SHE DOES NOT HAVE HCP AT THIS TIME, DECLINES ASSISTANCE WITH PAPERWORK. REVIEW OF SYSTEMS CONSTITUTIONAL: ANY RECENT FEVER NO . CHILLS NO . WEIGHT CHANGE OF UNKNOWN REASONS NO . GASTROENTEROLOGY: NEW UNEXPLAINABLE CHANGES IN BOWEL CONTROL NO . CONSTIPATION NO . GENITOURINARY: ANY NEW CHANGE IN BLADDER CONTROL? NO . NEUROLOGY: NEW ONSET DIZZINESS OR NEUROLOGICAL CHANGES NOT MENTIONED NO . NEW NUMBNESS OR PAIN PATTERNS NOT MENTIONED AND PERTINENT TO TODAY'S VISIT NO . CARDIOLOGY: NEW CHEST PRESSURE NO . PATIENT DENIES NO . RESPIRATORY: UNEXPLAINABLE COUGH NO . NEW SHORTNESS OF BREATH NO . VITAL SIGNS WT 288.6 LBS, HT 78 IN, BMI 33.35 INDEX, BP 129/70 MM HG, HR 74 /MIN, RR 18 /MIN, TEMP 97.0 F, OXYGEN SAT % 94%, SAFE IN ENV? (Y/N) Y, NA INITIALS AW 1453, REVIEWED BY: EM. EXAMINATION GENERAL EXAMINATION: THE PATIENT IS ALERT, ORIENTED TIMES THREE AND COOPERATIVE. SHE IS IN A WHEELCHAIR. LUNGS ARE CLEAR TO AUSCULTATION. HEART SHOWS REGULAR RHYTHM, NO MURMURS AND NO GALLOPS. STRAIGHT LEG RAISE IS POSITIVE FOR RADICULOPATHY ON THE LEFT AT 30 DEGREES. MRI OF THE LUMBOSACRAL SPINE DATED 09/02/2020 SHOWS BULGING DISC AT L4-L5 AND L3-L4. ALSO, SHE HAS A NEW COMPRESSION FRACTURE AT L5. ASSESSMENTS OTHER CHRONIC PAIN - G89.29 INTERVERTEBRAL DISC DISORDERS WITH RADICULOPATHY, LUMBAR REGION - M51.16 LUMBAR SPINAL STENOSIS - M48.061 COMPRESSION FRACTURE OF L5 VERTEBRA - S32.050A TREATMENT OTHER CHRONIC PAIN PAIN PROCEDURE LOGDATE OF PROCEDURE11/01/20PROCEDURE:LUMBAR EPIDURAL STEROID INJECTIONAMOUNT OF PRE SEDATENONERESULT:NOT MUCH RELIEF NOTES: TRANSFORAMINAL EPIDURAL INJECTION DOCUMENT PRINTED AND REVIEWED WITH PT. Yue MARTINEZ RN BSN. INTERVERTEBRAL DISC DISORDERS WITH RADICULOPATHY, LUMBAR REGION CLINICAL NOTES: I DISCUSSED ALTERNATIVES WITH MS. FARFAN. THE LAST EPIDURAL THROUGH THE INTRALAMINAR APPROACH DID NOT HELP HER. I FEEL THAT DOING A TRANSFORAMINAL EPIDURAL WILL HELP IT IS MORE SPECIFIC AND GOES TO THE ROOT OF THE NERVE. I WILL REQUEST AUTHORIZATION FOR A LEFT TRANSFORAMAINAL EPIDURAL STEROID INJECTION L3-L4, L4-L5, L5-S1. WHEN I PERFORMED THE PROCEDURE, THE PATIENT TOLERATED A VERY SMALL ABOUT OF FLUID IN THE SPINE, SO I FEEL THAT SHE MAY BE A CANDIDATE FOR MILD. WE ALSO NEED TO ATTEND TO THE COMPRESSION FRACTURE AT L5 THAT MAY BE CAUSING SOME PROBLEMS. THE PATIENT REPORTS UNDERSTANDING AND AGREES WITH THE PLAN. I, SYDNEY FAIRBANKS, DOCUMENTED THE ABOVE INFORMATION ACTING A SCRIBE FOR DR. HERNANDEZ. I HAVE REVIEWED THE ABOVE DOCUMENT, WRITTEN BY SYDNEY FAIRBANKS, TAKE OUT WAITRESS, AND I VERIFY THAT IT IS ACCURATE . PROCEDURE CODES FA211 ESTABILISHED PATIENT [facility] FACILITY CHARGE 19643 OFFICE/OUTPATIENT VISIT EST DISPOSITION & COMMUNICATION FOLLOW UP REQUEST AUTH FOR LEFT TRANSFORAMINAL EPIDURAL STEROID INJECTION L3-L4, L4-L5, L5-S1 (REASON: REQUEST AUTH FOR LEFT TRANSFORAMINAL EPIDURAL STEROID INJECTION L3-L4, L4-L5, L5-S1) ELECTRONICALLY SIGNED BY CAMACHO HERNANDEZ MD, MD ON 11/21/2020 AT 04:34 PM EST DISCLAIMER : THIS IS A VISIT SUMMARY EXTRACTED FROM THE [employer] CHART. IT IS NOT A COPY OF THE [employer] PROGRESS NOTE. AL[place]IA
== END ==
LOC: M PAIN 14:45
PROVIDERS: ATTEND Anesthesiology
DX: G89.29 Other chronic pain (principal); M51.16 Intervertebral disc disorders with radiculopathy, lumbar region; M48.061 Spinal stenosis, lumbar region without neurogenic claudication; S32.050A Wedge compression fracture of fifth lumbar vertebra, initial encounter for closed fracture; E66.01 Morbid (severe) obesity due to excess calories; M51.27 Other intervertebral disc displacement, lumbosacral region; D50.9 Iron deficiency anemia, unspecified; I13.2 Hypertensive heart and chronic kidney disease with heart failure and with stage 5 chronic kidney disease, or end stage renal disease; G47.33 Obstructive sleep apnea (adult) (pediatric); J44.9 Chronic obstructive pulmonary disease, unspecified; E11.22 Type 2 diabetes mellitus with diabetic chronic kidney disease; K21.9 Gastro-esophageal reflux disease without esophagitis; E55.9 Vitamin D deficiency, unspecified; N18.4 Chronic kidney disease, stage 4 (severe); I50.32 Chronic diastolic (congestive) heart failure; J45.909 Unspecified asthma, uncomplicated; E03.9 Hypothyroidism, unspecified; Z79.4 Long term (current) use of insulin; Z79.82 Long term (current) use of aspirin; Z79.899 Other long term (current) drug therapy; Z88.1 Allergy status to other antibiotic agents; Z88.5 Allergy status to narcotic agent; Z88.8 Allergy status to other drugs, medicaments and biological substances; Z68.33 Body mass index [BMI] 33.0-33.9, adult; X58.XXXA Exposure to other specified factors, initial encounter; Y92.9 Unspecified place or not applicable

== ENCOUNTER → 2020-11-23 | Outpatient (REF) | payer MEDICARE, MEDICAID ==
[~2020-11-23] MED LIST changes: +ASPI-569 PO; -ASPI81TAEC PO; +DEXT4TAB2 PO; -GLUC4CHW19 PO
== END ==
LOC: SKLAB5 08:00
PROVIDERS: ATTEND Internal Medicine
DX: Z20.822 Contact with and (suspected) exposure to COVID-19 (principal)

== ENCOUNTER → 2020-11-24 | Outpatient (REF) | payer MEDICARE, MEDICAID, OTHER | LOC: SKLAB5 06:43 | DX: E03.9 Hypothyroidism, unspecified (principal) ==

== ENCOUNTER → 2020-11-28 | Outpatient (CLI) | payer MEDICARE, MEDICAID ==
--- NOTE | 2020-12-01 01:26 | ECWPNPC ---
PATIENT NAME: HODAN FARFAN : 1955 GENDER: FEMALE VISIT DATE: 11/28/2020 DISCHARGE DATE: 11/28/20 1427 VISIT LOCKED DATE TIME: PHYSICIAN: CAMACHO HERNANDEZ MD PHYSICIAN PAGER NO: INACTIVE RESOURCE: CAMACHO HERNANDEZ MD REASON FOR APPOINTMENT 1. LEFT TRANSFORAMINAL EPIDURAL STEROID INJECTION L3-L4, L4-L5, L5-S1 HISTORY OF PRESENT ILLNESS GENERAL: 65 YEAR-OLD FEMALE PATIENT WITH A HISTORY OF CHRONIC LOW BACK AND LEG PAIN. THE PATIENT DESCRIBES THE PAIN ACHING AND SEVERE WITH A PAIN SCORE RANGING FROM 6-10/10 PAIN IN THE BACK WITH RADIATION TO MAINLY THE LEFT LEG. FALL RISK SCREENING: SCREENING : NO FALLS REPORTED IN THE LAST YEAR. PAIN SCREENING: PATIENT HAS A COMPLAINT OF ACUTE OR CHRONIC PAIN :YES LOCATION OF PAIN:LOW BACK, RIGHT HIP, LEG(S) INTENSITY OF PAIN (SCALE OF 1 TO 10):7 WHAT DOES YOUR PAIN FEEL LIKE:ACHING DURATION:CONSTANT NURSING NOTE: -. PAIN CENTER INTAKE QUESTIONS: DO YOU HAVE A HISTORY OF MRSA? :YES ABDOMINAL ULCERS- RESOLVED DO YOU TAKE A BLOOD THINNERS? :NO DO YOU HAVE ANY BLEEDING DISORDERS? :NO ANY NEW NUMBNESS OR WEAKNESS IN YOUR LEGS OR ARMS? :NO ANY PACEMAKER,DEFIBRILLATOR, OR DORSAL COLUMN STIMULATOR? :NO DO YOU HAVE ANY RASHES OR OPEN SORES? :YES BILAT LOWER LEG ULCERATIONS ARE YOU ALLERGIC TO IV DYE? :NO ARE YOU DIABETIC? :YES ANY NEW PROBLEMS WITH YOUR MEDICATIONS? :NO HAVE YOU RECEIVED A VACCINE IN THE PAST 30 DAYS? :NO DO YOU PLAN TO RECEIVE A VACCINE IN THE NEXT 21 DAYS? :NO DO YOU TAKE ANY IMMUNOSUPPRESSIVE MEDICATIONS? :NO ANY HISTORY OF SEIZURES? :NO ANY HISTORY OF CARDIAC ISSUES OR EVENTS? :NO DO YOU HAVE ANY KIDNEY OR LIVER DISEASE? :YES CKD STAGE III DO YOU HAVE SLEEP APNEA? :NO ANY RECENT HEAD INJURY? :NO DO YOU HAVE ANY NEW INFECTIONS? :NO IS THERE A CHANCE YOU COULD BE ? :NO ARE YOU BREAST FEEDING? :NO WHEN DID YOU LAST EAT? : - WHEN DID YOU LAST DRINK? : - WHAT DID YOU LAST DRINK? : - NAME OF PERSON DRIVING YOU HOME? : -AIDE- CALL EXT [id number] DO YOU HAVE ANY OTHER QUESTIONS OR CONCERNS? : - ALLERGIES NO[ALLERGIES VERIFIED] REVIEW OF SYSTEMS CONSTITUTIONAL: ANY RECENT FEVER NO . CHILLS NO . WEIGHT CHANGE OF UNKNOWN REASONS NO . GASTROENTEROLOGY: NEW UNEXPLAINABLE CHANGES IN BOWEL CONTROL NO . CONSTIPATION NO . GENITOURINARY: ANY NEW CHANGE IN BLADDER CONTROL? NO . NEUROLOGY: NEW ONSET DIZZINESS OR NEUROLOGICAL CHANGES NOT MENTIONED PATIENT FEELING DIZZY AND VISION GOING DARK . NEW NUMBNESS OR PAIN PATTERNS NOT MENTIONED AND PERTINENT TO TODAY'S VISIT NO . CARDIOLOGY: NEW CHEST PRESSURE NO . PATIENT DENIES NO . RESPIRATORY: UNEXPLAINABLE COUGH NO . NEW SHORTNESS OF BREATH NO . VITAL SIGNS WT 280 LBS, HT 78 IN, BMI 32.35 INDEX, BP 148/85 MM HG, HR 67 /MIN, RR 18 /MIN, TEMP 98.1 F, OXYGEN SAT % 93%, SAFE IN ENV? (Y/N) YES, REVIEWED BY: JAVIER RN. EXAMINATION GENERAL EXAMINATION: THE PATIENT IS ALERT, ORIENTED TIMES THREE AND COOPERATIVE. LUNGS ARE CLEAR TO AUSCULTATION. HEART SHOWS REGULAR RHYTHM, NO MURMURS AND NO GALLOPS. THE PATIENT LOOKS TIRED. ASSESSMENTS INTERVERTEBRAL DISC DISORDERS WITH RADICULOPATHY, LUMBAR REGION - M51.16 (PRIMARY) INTERVERTEBRAL DISC DISORDERS WITH RADICULOPATHY, LUMBOSACRAL REGION - M51.17 TREATMENT INTERVERTEBRAL DISC DISORDERS WITH RADICULOPATHY, LUMBAR REGION LAB: FINGERSTICK BLOOD SUGAR (ORDERED FOR 11/28/2020) SYDNEY FAIRBANKS 11/28/2020 01:56:38 PM - REPEAT [facility] CLINICAL NOTES: I DISCUSSED ALTERNATIVES WITH MS. FARFAN. THE PATIENT STATED SHE FELT WEAK AND CLAMMY. WE DID A BLOOD SUGAR AND IT WAS 51. WE GAVE HER SOME CRACKERS, JUICE AND SKYLAR JAYY. SHE STARTED TO FEEL BETTER. WE ARE GOING TO RESCHEDULE THE PATIENT. THE PATIENT SHOULD BE BOOKED IN THE MORNINGS. OTHERS CLINICAL NOTES: PAT DONE WITH MICHEL MARTIN AT [facility]. SHE WILL SEND PATIENT MAR WITH PACKET. PROCEDURES PAIN NURSING RECORD NOTES PATIENT ARRIVED VIA WHEELCHAIR AT 1330. PATIENT ALERT AND ORIENTED. AFTER VITALS SIGNS WERE OBTAINED BY WAXER TENDER, PATIENT STATED SHE "FELT WEAK AND CLAMMY". V/S 98.1-67-18 148/85 93% ON R/A. FSBS CHECKED=55. DR HERNANDEZ AT BEDSIDE TO ASSESS PATIENT. PATIENT STATED " THINGS WERE GOING BLACK" AND WAS ASSISTED TO STRETCHER BY 3 STAFF MEMBERS. 1340 PATIENT GIVEN 225 CC OF SKYLAR JAYY, 240CC OF OJ, AND JULIANA CRACKERS. V/S 133/74 HR [address] HERNANDEZ AT BEDSIDE. PATIENT STATES SHE FEELS BETTER. 1400 V/S 103/57 HR 63 16 96% R/A. FSBS 91. SKIN DRY AND PATIENT STATES SHE FEELS BETTER AND DENIES WEAKNESS CURRENTLY. DR HERNANDEZ UPDATED AND AGREED WITH RETURNING PATIENT TO [facility]. 1410 I CALLED REPORT TO [facility] 5TH FLOOR, BRIE BASS LPN WITH EVENTS AT PAIN MANAGEMENT. I ADVISED BRIE HERNANDEZ WOULD LIKE PCP TO ASSESS PATIENT AT [facility], AND TO RESCHEDU;LE PATIENT FOR CABLE REELER TRANSFORAMINAL. 1420 PATIENT RETURNED TO [facility] 5TH FLOOR VIA WHEELCHAIR/[facility] STAFF MEMBER. PATIENT ALERT AND ORIENTED. PATIENT DENIES WEAKNESS. SKIN WARM AND DRY, PROCEDURE CODES 17321 OFFICE/OUTPATIENT VISIT EST DISPOSITION & COMMUNICATION FOLLOW UP PLEASE RESCHEDULE PATIENT FOR A MORNING PROCEDURE, APPROVED BY DR. HERNANDEZ, PATIENT DID NOT FEEL WELL. (REASON: LEFT TRANSFORAMINAL EPIDURAL STEROID INJECTION L3-L4, L4-L5, L5-S1) ELECTRONICALLY SIGNED BY CAMACHO HERNANDEZ MD, MD ON 11/30/2020 AT 12:23 PM EST DISCLAIMER : THIS IS A VISIT SUMMARY EXTRACTED FROM THE [employer] CHART. IT IS NOT A COPY OF THE [employer] PROGRESS NOTE. [facility]
== END ==
LOC: M PAIN 13:20
PROVIDERS: ATTEND Anesthesiology
DX: M51.16 Intervertebral disc disorders with radiculopathy, lumbar region (principal); M51.17 Intervertebral disc disorders with radiculopathy, lumbosacral region; E16.2 Hypoglycemia, unspecified; Z53.20 Procedure and treatment not carried out because of patient's decision for unspecified reasons

== ENCOUNTER → 2020-11-30 | Outpatient (REF) | payer MEDICARE, MEDICAID, OTHER | LOC: SKLAB5 06:41 | PROVIDERS: ATTEND Internal Medicine | DX: Z20.822 Contact with and (suspected) exposure to COVID-19 (principal) ==

== ENCOUNTER → 2020-12-01 | Outpatient (REF) | payer MEDICARE, MEDICAID ==
[2020-12-01 09:32] LABS: FREE T4 1.15 NG/DL (0.76-1.46); THYROID STIMULATING HORMONE 1.8 uIU/ML (0.358-3.740)
[2020-12-01 10:48] LABS: HEMOGLOBIN A1c 7.5 %
== END ==
LOC: SKLAB5 08:30
DX: E11.9 Type 2 diabetes mellitus without complications (principal); G89.29 Other chronic pain

== ENCOUNTER → 2020-12-07 | Outpatient (REF) | payer MEDICARE, MEDICAID, OTHER | LOC: SKLAB5 07:13 | PROVIDERS: ATTEND Internal Medicine | DX: Z20.822 Contact with and (suspected) exposure to COVID-19 (principal) ==

== ENCOUNTER → 2020-12-09 | Outpatient (CLI) | payer MEDICARE, MEDICAID ==
--- NOTE | 2020-12-09 08:35 | REP ---
INDICATION: CIRRHOSIS COMPARISON: None. TECHNIQUE: Real time lópez scale ultrasound examination using curved array transducer. FINDINGS: Liver is hyperechoic with coarsened echotexture and subtle irregular contour consistent with cirrhosis. No focal hepatic lesion identified. Incidental recanalized umbilical vein noted. Visualized portions of the pancreas are normal. The patient is status post cholecystectomy. No biliary ductal dilatation is appreciated and the common bile duct measures 6.5 mm diameter. Right kidney is normal in reniform shape without hydronephrosis and measures 11.8 x 5.4 x 5.5 cm. No ascites in the visualized right upper quadrant. IMPRESSION: Changes consistent with cirrhosis and possible early portal hypertension. <Electronically signed by Juan Duckworth > 12/09/20 0831
== END ==
LOC: M RAD 06:56
PROVIDERS: ATTEND Student in an Organized Health Care Education/Training Program
DX: K74.60 Unspecified cirrhosis of liver (principal)

== ENCOUNTER → 2020-12-12 | Outpatient (CLI) | payer MEDICARE, MEDICAID ==
[~2020-12-12] MED LIST changes: +BUPIVACAINE HCL 0.25% 30ML VIAL As Ordered ONE; +ISOVUE-M 300 61% 15ML VIAL As Ordered ONE; +LIDOCAINE 1% SDV 30ML VIAL As Ordered ONE; +dexameTHASONE 10MG/1ML VIAL PRES.FREE (J1100 PER 1MG) As Ordered ONE
--- NOTE | 2020-12-12 11:36 | REP ---
INDICATION: LEFT TRANSFORAMINAL STEROID INJECTION. COMPARISON: None. TECHNIQUE: Multiple C-arm views lower lumbar spine performed. FINDINGS: [place] are seen along the lower lumbar spine. Small amount of contrast is injected. IMPRESSION: 72 seconds fluoroscopy time utilized. <Electronically signed by Jim Calderon > 12/12/20 [id number]
--- NOTE | 2020-12-13 01:43 | ECWPNPC ---
PATIENT NAME: HODAN FARFAN : 1955 GENDER: FEMALE VISIT DATE: 12/12/2020 DISCHARGE DATE: 12/12/20 1058 VISIT LOCKED DATE TIME: PHYSICIAN: CAMACHO HERNANDEZ MD PHYSICIAN PAGER NO: INACTIVE RESOURCE: CAMACHO HERNANDEZ MD REASON FOR APPOINTMENT 1. LEFT TRANSFORAMINAL EPIDURAL STEROID INJECTION L3-L4, L4-L5 HISTORY OF PRESENT ILLNESS GENERAL: -. FALL RISK SCREENING: SCREENING : NO FALLS REPORTED IN THE LAST YEAR. PAIN SCREENING: PATIENT HAS A COMPLAINT OF ACUTE OR CHRONIC PAIN :YES LOWER BACK RADIATING TO LEFT LEG, RIGHT HIP INTENSITY OF PAIN (SCALE OF 1 TO 10):5 WHAT DOES YOUR PAIN FEEL LIKE:ACHING, BURNING, CONTINOUS, THROBBING DURATION:CONSTANT NURSING NOTE: -. PAIN CENTER INTAKE QUESTIONS: DO YOU HAVE A HISTORY OF MRSA? :YES DO YOU TAKE A BLOOD THINNERS? :NO DO YOU HAVE ANY BLEEDING DISORDERS? :NO ANY NEW NUMBNESS OR WEAKNESS IN YOUR LEGS OR ARMS? :YES ANY PACEMAKER,DEFIBRILLATOR, OR DORSAL COLUMN STIMULATOR? :NO DO YOU HAVE ANY RASHES OR OPEN SORES? :NO ARE YOU ALLERGIC TO IV DYE? :NO ARE YOU DIABETIC? :YES ANY NEW PROBLEMS WITH YOUR MEDICATIONS? :NO HAVE YOU RECEIVED A VACCINE IN THE PAST 30 DAYS? :NO DO YOU PLAN TO RECEIVE A VACCINE IN THE NEXT 21 DAYS? :NO DO YOU TAKE ANY IMMUNOSUPPRESSIVE MEDICATIONS? :NO ANY HISTORY OF SEIZURES? :NO ANY HISTORY OF CARDIAC ISSUES OR EVENTS? :NO DO YOU HAVE ANY KIDNEY OR LIVER DISEASE? :NO DO YOU HAVE SLEEP APNEA? :YES DO YOU WEAR A CPAP?NO ANY RECENT HEAD INJURY? :NO DO YOU HAVE ANY NEW INFECTIONS? :NO IS THERE A CHANCE YOU COULD BE ? :NO ARE YOU BREAST FEEDING? :NO WHEN DID YOU LAST EAT? : 12/11/20 1800 WHEN DID YOU LAST DRINK? : 12/12/20 0600 WHAT DID YOU LAST DRINK? : -WATER NAME OF PERSON DRIVING YOU HOME? : -[facility] RESIDENT DO YOU HAVE ANY OTHER QUESTIONS OR CONCERNS? : - CURRENT MEDICATIONS TAKING WHEELCHAIR 1 MISCELLANEOUS DIRECTED M51.16 DAILY TAKING WHEELCHAIR _ MISCELLANEOUS DIRECTED D X: R27.0 DAILY, NOTES: COLE [phone] TAKING GLUCOMETER (VERIO IQ) 1 GLUCOMETER DIRECTED E11.8 FOUR TIMES DAILY TAKING BL LANCETS 1 1 LANCET E11.8 FOUR TIMES DAILY TAKING ONETOUCH VERIO 1 STRIP 1 STRIP E11.9 BID TAKING DEPEND PANT EXTRA LARGE DEPENDS MISCELLANEOUS SUPER ABSORBENT HIP - 155 CM; WAIST - 146 CM ICD:N39.490 EVERY 2-4 HOURS NEEDED MDD: 5 BRIEFS TAKING LEVOTHYROXINE SODIUM 50 MCG TABLET 1 CAPSULE ORALLY ONCE A DAY TAKING SPIRONOLACTONE 50 MG TABLET 1 TAB ORALLY BID TAKING SPIRIVA HANDIHALER 18 MCG CAPSULE 1 CAPSULE INHALATION ONCE A DAY TAKING INSULIN PEN NEEDLE 31G X 6 MM MISCELLANEOUS DIRECTED SQ DAILY BEFORE BEDTIME DX:E11.8 TAKING ONETOUCH VERIO - STRIP DIRECTED SUBCUTANEOUSLY AC BID TAKING TORSEMIDE 10 MG TABLET 1 TABLET ORALLY BID TAKING GABAPENTIN 300 MG CAPSULE 1 TABLET ORALLY TID TAKING DULOXETINE HCL 30 MG CAPSULE DELAYED RELEASE PARTICLES 1 CAPSULE ORALLY BID TAKING ROLLER WALKER 1 MISCELLANEOUS DIRECTED M47.816 DAILY TAKING COMPRESSION STOCKINGS 20-30 MMHG DIRECTED L03.116 DAILY TAKING OMEPRAZOLE 40 MG CAPSULE DELAYED RELEASE 1 CAPSULE 30 MINUTES BEFORE MORNING MEAL ORALLY ONCE A DAY TAKING POTASSIUM CHLORIDE JYOTSNA ER 10 MEQ TABLET EXTENDED RELEASE 1 TABLET WITH FOOD ORALLY THREE TIMES DAILY TAKING ACETAMINOPHEN 325 MG TABLET 2 TABLETS NEEDED ORALLY EVERY 4 HRS TAKING BENADRYL ALLERGY 25 MG CAPSULE 1 CAPSULE AT BEDTIME NEEDED ORALLY EVERY 6 HOURS PRN TAKING ONDANSETRON HCL 4 MG TABLET 1 TABLET ORALLY Q 6 HOURS PRN TAKING MILK OF MAGNESIA 2400 MG/30ML SUSPENSION 10 ML NEEDED ORALLY DAILY TAKING BIOFREEZE EVERY 6 HOURS NEEDED TAKING ENEMA DISPOSABLE - ENEMA DIRECTED RECTAL TAKING COUGH DROPS MENTHOL - LOZENGE DIRECTED MOUTH/THROAT NEEDED EVERY HOUR TAKING FENTANYL 12 MCG/HR PATCH 72 HOUR 1 PATCH TO SKIN TRANSDERMAL EVERY 3 DAYS TAKING OXYCODONE HCL 5 MG TABLET 1 TABLET NEEDED, MDD OF 4 TABS ORALLY EVERY 4 HOURS NEEDED TAKING XIFAXAN 550 MG TABLET 1 TABLET ORALLY TWICE A DAY TAKING PROPRANOLOL HCL 20 MG TABLET 1 TABLET ORALLY BID TAKING LIPITOR 40 MG TABLET 1 TABLET ORALLY ONCE A DAY TAKING ASPIR-81 TAKING FENTANYL 25 MCG/HR PATCH 72 HOUR 1 PATCH TO SKIN TRANSDERMAL EVERY 3 DAYS TAKING TRULICITY 0.75 MG/0.5ML SOLUTION PEN-INJECTOR DIRECTED SUBCUTANEOUS TAKING LEVEMIR 100 UNIT/ML SOLUTION DIRECTED SUBCUTANEOUS NOT-TAKING LANTUS 100 UNIT/ML SOLUTION 60 IN THE AM AND 55 IN THE EVENING SUBCUTANEOUS NOT-TAKING ALBUTEROL SULFATE (2.5 MG/3ML) 0.083% NEBULIZATION SOLUTION 3 ML NEEDED INHALATION EVERY 2 HRS NOT-TAKING RIFAXIMIN 550 MG TABLET 1 TABLET ORALLY TWICE A DAY NOT-TAKING MAGNESIUM 400 MG CAPSULE 1 TABLET WITH A MEAL ORALLY TWICE A DAY NOT-TAKING METOPROLOL TARTRATE 25 MG TABLET 1 TABLET WITH FOOD ORALLY TWICE A DAY, NOTES: 10/31/20 NOT-TAKING LACTULOSE 20 GM/30ML SOLUTION 15 ML ORALLY TID NOT-TAKING BUTRANS 15 MCG/HR PATCH WEEKLY 1 PATCH TO SKIN TRANSDERMAL WEEKLY, REMOVE OLD PATCH NOT-TAKING BACTRIM DS 800-160 MG TABLET 1 TABLET ORALLY TWICE A DAY NOT-TAKING GUAIASORB DM 10-100 MG/5ML LIQUID 10 ML NEEDED ORALLY EVERY 4 HRS NOT-TAKING COLACE 100 MG CAPSULE 1 CAPSULE NEEDED ORALLY ONCE A DAY, NOTES: 02/04/2020 0800 NOT-TAKING BUTRANS 10 MCG/HR PATCH WEEKLY 1 PATCH TO SKIN TRANSDERMAL CHANGE PATCH EVERY 7 DAYS NOT-TAKING FAMOTIDINE 20 MG TABLET 1 TABLET AT BEDTIME ORALLY ONCE A DAY NOT-TAKING FERROUS SULFATE 325 (65 FE) MG TABLET 1 TABLET ORALLY ONCE A DAY NOT-TAKING XIFAXAN 550 MG TABLET 1 TABLET ORALLY TWICE A DAY NOT-TAKING TOUJEO SOLOSTAR 300 UNIT/ML SOLUTION PEN-INJECTOR DIRECTED SUBCUTANEOUS 80 UNITS IN AM 70 UNITS AT HS NOT-TAKING FISH OIL 1000 MG CAPSULE 1 CAPSULE ORALLY ONCE A DAY, NOTES: OTC NOT-TAKING KRISTALOSE 10 GM PACKET 1 PACKET ORALLY ONCE A DAY NOT-TAKING LIDODERM 5 % PATCH 1 PATCH REMOVE AFTER 12 HOURS EXTERNALLY ONCE A DAY NOT-TAKING TIZANIDINE HCL 4 MG TABLET 1 TABLET NEEDED ORALLY FOUR TIMES DAILY NOT-TAKING DIFLUCAN 100 MG TABLET 1 TABLET ORALLY BID NOT-TAKING HYDROXYZINE HCL 25 MG TABLET 1 TABLET NEEDED ORALLY EVERY 8 HRS NOT-TAKING NYSTATIN [id number] UNIT/GM CREAM 1 APPLICATION EXTERNALLY TWICE A DAY NOT-TAKING TRAMADOL HCL 50 MG TABLET 1 TABLET NEEDED ORALLY TID PRN PAIN NOT-TAKING KEFLEX 500 MG CAPSULE 1 CAPSULE ORALLY EVERY 12 HRS NOT-TAKING METOLAZONE 5 MG TABLET 1 TABLET ORALLY ONCE A DAY PAST MEDICAL HISTORY OBESITY, MORBID CERVICAL/THORACIC/LUMBAR DJD-L2-S1 DIFFUSE BULGES-AT L5/S1 ABUTTING TS, B S1 PERIPHERAL EDEMA-01/2011 [id number] 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 BARAHONA, [facility], [place] OBSTRUCTIVE SLEEP APNEA HYPERLIPIDEMIA 2B COPD-07/2011 FEV1 1.9L (71%)/RATIO 92% T2DM ID GERD/HIATAL HERNIA-SEEN BY APRIL 2011 UPPER GI WITH SMALL BOWEL FOLLOW-THROUGH SCHIZOAFFECTIVE DISORDER-SPELLED BY DR. OSBORNE NONALCOHOLIC FATTY LIVER DISEASE-SEEN BY MARCH 2011 CT-NORMAL WORKUP 2010--CHRONIC HEPATITIS GRADE 2/4 WITH GRADE 4/4 CIRRHOSIS BY LIVER BIOPSY JULY 2011 VASOMOTOR SYMPTOMS VITAMIN D DEFICIENCY ALLERGIC RHINITIS RECURRENT CANDIDAL DERMATITIS ANTERIOR ABDOMEN LEUKOPENIA, CHRONIC CHRONIC ANTERIOR ABDOMINAL WALL PANNICULITIS PORTAL VENOUS HYPERTENSION SEEN BY MARCH 2011 CT CKD III-12/2013 NORMAL B RENAL US CHF 2 DIASTOLIC DYSFUNCTION-01/2017 TTE-GUADALUPE C GRADE 1 DIASTOLIC DYSFUNCTION, VERY MILD MR/TR B SHOULDER IMPIGNMENT SYNDROME-09/2015 L SHOULDER XRAY C MILD AC ARTHRITIS//S/P R PROXIMAL HUMERUS FRACTURE S/P MECHANICAL [id number] PER HEBERT RECURRENT HEPATIC ENCEPHALOPATHY-01/2017 MRI BRAIN MILD /VOLUME LOSS ASTHMA CELLULITIS HYPOTHYROIDISM MRSA (PER PT REPORT) ABDOMEN 06/16/2020 CHEST PAIN, HEAVINESS, SOB, ADMITTED TO [facility], DX TIA ALLERGIES CIPRO: CONFUSION - SIDE EFFECTS DOXYCYCLINE HYCLATE: ITCHY - ALLERGY MOTRIN: HIVES - ALLERGY VITAL SIGNS WT 280 LBS, HT 78 IN, BMI 32.35 INDEX, BP 150/91 MM HG, HR 83 /MIN, RR 18 /MIN, TEMP 97.0 F, OXYGEN SAT % 93%, NA INITIALS SC 08:44. ASSESSMENTS INTERVERTEBRAL DISC DISORDERS WITH RADICULOPATHY, LUMBAR REGION - M51.16 (PRIMARY) TREATMENT INTERVERTEBRAL DISC DISORDERS WITH RADICULOPATHY, LUMBAR REGION [facility] FLUORO GUIDE SPINE INJECTION (PAIN)[id number] COMPLETION OF PROCEDURAL VISIT WHEN MEETS CRITERIADANILO GUZMAN 12/12/2020 10:59:30 AM > CRITERIA MET AT 1056 CLINICAL NOTES: NURSE TO NURSE REPORT CALLED TO RENEE SAMUELS RN. SPECIAL ATTENTION IS GIVEN TO PATIENT MAY HAVE DIFFICULTY WITH AMBULATION AND TRANSFERS FOR TWO DAYS. CAMILA @ 1051 . OTHERS NOTES: 12/08/20 1517 PAT COMPLETED WITH NURSE AT [facility] [id number]. [employer]. PROCEDURES PAIN NURSING RECORD PROCEDURE IN ROOM 0951, PHYSICIAN IN ROOM 0959, START 1003, FINISH 1024, PHYSICIAN OUT OF ROOM 1027, OUT OF ROOM 1037, ECG NORMAL SINUS, PATIENT SHIELDED YES, SAFETY STRAP N/A, PREP BETADINE BY LIYAH PEARSON, DRESSING TEGADERM BY DR HERNANDEZ LOC: 1. ALERT, ORIENTED [facility] 12/12/2020 10:03:25 AM > RESP: 1. REGULAR, NO DYSPNEA [facility]GAN,[facility] 12/12/2020 10:03:47 AM > COLOR: 1. PINK [facility] 12/12/2020 10:03:59 AM > SKIN: 1. WARM, DRY [facility]GAN,[facility] 12/12/2020 10:04:03 AM > POSITION: 1. PRONE [facility] 12/12/2020 10:04:08 AM > VITALS: 137/91, 74 HR, 96%, R16 @1003 1 37/84,HR 80, 97%, R16 EMGAN,[facility] 12/12/2020 10:24:11 AM > 144/92, HR 86, 95%, R16 ME[facility] 12/12/2020 @1059 AM > NOTES Daphne GZUMAN RN COMPLETION OF PROCEDURE APPOINTMENT: POST PAIN 4, DRESSING SITE DRY AND INTACT LOW BACK, IV N/A, GAIT WHEELCHAIR, TEACHING COMPLETED, PATIENT ACKNOWLEDGES UNDERSTANDING YES PATIENT STATES UNDERSTANDING PN LUMBAR TRANSFORAMINAL BLOCKS PRE PROCEDURE DIAGNOSIS LUMBAR DISC DISORDER WITH RADICULOPATHY POST PROCEDURE DIAGNOSIS LUMBAR DISC DISORDER WITH RADICULOPATHY PROCEDURE LEFT L3-L4 AND LEFT L4-L5 TRANSFORAMINAL EPIDURAL STEROID INJECTION UNDER FLUOROSCOPIC GUIDANCE SURGEON DR CAMACHO HERNANDEZ LAST INSERTER NONE ANESTHESIA LOCAL PRE PROCEDURE NOTE THE PATIENT WITH HISTORY OF CHRONIC LOW BACK PAIN. I EVALUATED THE PATIENT AND REVIEWED THE CHART. I WENT OVER THE RISKS, ALTERNATIVES, AND BENEFITS ASSOCIATED WITH THIS PROCEDURE. THE PATIENT WOULD LIKE TO PROCEED AND GIVE CONSENT TO PERFORMED THE PROCEDURE. THE PATIENT DENIES UNEXPLAINABLE WEIGHT LOSS, FEVER, CHILLS, OR CHANGES IN URINARY OR BOWEL CONTROL. THE PATIENT IS COVID-19 NEGATIVE DESCRIPTION OF PROCEDURE THE PATIENT WAS BROUGHT TO THE PROCEDURE ROOM AND PLACED IN THE PRONE POSITION. THE LUMBOSACRAL AREA WAS CLEANED WITH BETADINE SOLUTION AND DRAPED ASEPTICALLY. THE PROCEDURE WAS DONE UNDER STERILE CONDITIONS. A TIMEOUT WAS PERFORMED WHERE THE CONSENTED SITE WAS VERIFIED WITH EVERYONE IN THE ROOM. UNDER FLUOROSCOPIC GUIDANCE, THE TARGET POINT WAS SELECTED AT THE LEFT TRANSFORAMINAL OPENING OF L3 AND THE LEFT TRANSFORAMINAL OPENING OF L4. TARGET POINT WAS SELECTED AFTER LATERAL ROTATION AND TILT OF THE MAGNIFIER OF THE C-ARM. I CONFIRMED AGAIN THE SITE OF TARGET. LIDOCAINE 0.5% WAS USED TO NUMB THE SKIN AND THE SUBCUTANEOUS TISSUE BELOW IT. AN EPIMED INTRODUCER, 18-GAUGE, WAS ADVANCED UNTIL I WENT CLOSE TO THE SELECTED TRANSFORAMINAL OPENINGS. AFTER PROPER POSITION OF THE NEEDLES WAS ACHIEVED, A 22-GAUGE, EPIMED NEEDLE, WAS PLACED INSIDE OF THE INTRODUCER AND ADVANCED TO THE TRANSFORAMINAL OPENING OF THE SELECTED SITES. WHEN PROPER POSITION OF THE NEEDLE WAS ACHIEVED, ISOVUE-M DYE 30%, 0.25 ML, WAS INJECTED SHOWING ADEQUATE SPREAD OF THE DYE. THIS WAS DONE UNDER DIGITAL SUBTRACTION AND ANGIOGRAPHY. THERE WAS NO VASCULAR UPDATE. THEN, A SOLUTION OF 2 ML OF BUPIVACAINE 0.25% AND DEXAMETHASONE 5 MG WAS INJECTED AT EACH SITE. THE MEDICATION WAS VERIFIED WITH THE NURSE. THERE WAS NO EVIDENCE OF BLOOD, PARESTHESIA OR CEREBROSPINAL FLUID DURING THE PROCEDURE. THE PATIENT WAS SENT TO THE RECOVERY ROOM. THE PATIENT WAS MOVING THE EXTREMITIES AND DOING WELL. THERE WAS NO COMPLICATION DURING THE PROCEDURE. ESTIMATED BLOOD LOSS WAS LESS THAN 5 ML. FLUOROSCOPY TIME WAS 1 MINUTE 24 SECONDS POST PROCEDURE NOTE THE PROCEDURE DONE WAS DISCUSSED WITH THE PATIENT. THE PATIENT WILL BE SEEN IN A FOLLOW UP IN THE NEXT FEW WEEKS. I AM LOOKING FOR LONG LASTING PAIN RELIEF FOR THE PATIENT WITH THIS INTERVENTION. INSTRUCTIONS WERE GIVEN, QUESTIONS WERE ANSWERED, AND THE PATIENT EXPRESSED UNDERSTANDING AND AGREES WITH THE PLAN. I, SYDNEY FAIRBANKS, DOCUMENTED THE ABOVE INFORMATION ACTING A SCRIBE FOR DR. HERNANDEZ. I HAVE REVIEWED THE ABOVE DOCUMENT, WRITTEN BY SYDNEY FAIRBANKS, WIND TECHNICIAN, AND I VERIFY THAT IT IS ACCURATE PROCEDURE CODES 50598 INJ FORAMEN EPIDURAL L/S, [place]IFI[place]: [place] [address] INJ FORAMEN EPIDURAL ADD-ON, MODIFIERS: LT DISPOSITION & COMMUNICATION FOLLOW UP TELEPHONE DR. Mc NEXT WEEK (REASON: POST LEFT TRANSFORAMINAL EPIDURAL STEROID INJECTION L3-L4, L4-L5) ELECTRONICALLY SIGNED BY CAMACHO HERNANDEZ MD, MD ON 12/12/2020 AT 04:06 PM EDT DISCLAIMER : THIS IS A VISIT SUMMARY EXTRACTED FROM THE [employer] CHART. IT IS NOT A COPY OF THE [employer] PROGRESS NOTE. ALTAGRACIA
== END ==
LOC: M PAIN 08:30
PROVIDERS: ATTEND Anesthesiology
DX: M51.16 Intervertebral disc disorders with radiculopathy, lumbar region (principal); E66.01 Morbid (severe) obesity due to excess calories; D50.9 Iron deficiency anemia, unspecified; I13.0 Hypertensive heart and chronic kidney disease with heart failure and stage 1 through stage 4 chronic kidney disease, or unspecified chronic kidney disease; G47.33 Obstructive sleep apnea (adult) (pediatric); E78.5 Hyperlipidemia, unspecified; J44.9 Chronic obstructive pulmonary disease, unspecified; E11.22 Type 2 diabetes mellitus with diabetic chronic kidney disease; I50.32 Chronic diastolic (congestive) heart failure; K44.9 Diaphragmatic hernia without obstruction or gangrene; F25.9 Schizoaffective disorder, unspecified; E55.9 Vitamin D deficiency, unspecified; N18.30 Chronic kidney disease, stage 3 unspecified; K76.6 Portal hypertension; E03.9 Hypothyroidism, unspecified; Z79.891 Long term (current) use of opiate analgesic; Z79.4 Long term (current) use of insulin; Z79.899 Other long term (current) drug therapy; Z88.1 Allergy status to other antibiotic agents; Z88.6 Allergy status to analgesic agent
CPT/HCPCS: 64483; 64484; J1100; Q9967

== ENCOUNTER → 2020-12-23 | Outpatient (CLI) | payer MEDICARE, MEDICAID ==
[~2020-12-23] MED LIST changes: -BUPIVACAINE HCL 0.25% 30ML VIAL As Ordered ONE; -ISOVUE-M 300 61% 15ML VIAL As Ordered ONE; -LIDOCAINE 1% SDV 30ML VIAL As Ordered ONE; -dexameTHASONE 10MG/1ML VIAL PRES.FREE (J1100 PER 1MG) As Ordered ONE
--- NOTE | 2020-12-28 00:47 | ECWPNPC ---
PATIENT NAME: HODAN FARFAN : 1955 GENDER: FEMALE VISIT DATE: 12/23/2020 DISCHARGE DATE: 12/23/2045 VISIT LOCKED DATE TIME: PHYSICIAN: CAMACHO HERNANDEZ MD PHYSICIAN PAGER NO: INACTIVE RESOURCE: CAMACHO HERNANDEZ MD REASON FOR APPOINTMENT 1. POST LEFT TRANSFORAMINAL EPIDURAL STEROID INJECTION L3-L4, L4-L5, L5-S1 HISTORY OF PRESENT ILLNESS GENERAL: PERMISSION FROM PATIENT WAS RECEIVED TO DO TELEPHONE OFFICE VISIT. 65-YEAR-OLD FEMALE PATIENT WITH A HISTORY OF CHRONIC LOW BACK AND LEG PAIN. THE PATIENT DESCRIBES THE PAIN ACHING AND CONSTANT WITH A PAIN SCORE RANGING FROM 6-8/10 OVER THE RIGHT SIDE. WE DID THE INJECTION OVER THE LEFT SAID AND THAT IS HELPING AND NOW HER PAIN IS OVER THE RIGHT SIDE. THE PATIENT IS NOW INTERESTED IN AN INJECTION OVER THE RIGHT SIDE. FALL RISK SCREENING: SCREENING : ONE FALL REPORTED IN THE LAST YEAR WITHOUT INJURY. PAIN SCREENING: PATIENT HAS A COMPLAINT OF ACUTE OR CHRONIC PAIN :YES LOCATION OF PAIN:BOTH SHOULDERS, MID BACK, LOW BACK INTENSITY OF PAIN (SCALE OF 1 TO 10):8 WHAT DOES YOUR PAIN FEEL LIKE:ACHING DURATION:CONTINOUS, CONSTANT PAIN IS INCREASED BY:ACTIVITIES PAIN IS DECREASED BY:USE OF PAIN MEDICATIONS NURSING NOTE: -. PAIN CENTER INTAKE QUESTIONS: DO YOU HAVE A HISTORY OF MRSA? :YES STOMACH WOUNDS POSITIVE, LAST TEST FALL 2019 DO YOU TAKE A BLOOD THINNERS? :NO DO YOU HAVE ANY BLEEDING DISORDERS? :NO ANY NEW NUMBNESS OR WEAKNESS IN YOUR LEGS OR ARMS? :NO ANY PACEMAKER,DEFIBRILLATOR, OR DORSAL COLUMN STIMULATOR? :NO DO YOU HAVE ANY RASHES OR OPEN SORES? :YES BILAT LEGS SORES ARE YOU ALLERGIC TO IV DYE? :NO ARE YOU DIABETIC? :YES ANY NEW PROBLEMS WITH YOUR MEDICATIONS? :NO HAVE YOU RECEIVED A VACCINE IN THE PAST 30 DAYS? :NO DO YOU PLAN TO RECEIVE A VACCINE IN THE NEXT 21 DAYS? :NO DO YOU NEED ANY PRESCRIPTION? :NO DO YOU TAKE ANY IMMUNOSUPPRESSIVE MEDICATIONS? :NO DO YOU HAVE ANY KIDNEY OR LIVER DISEASE? :NO IS THERE A CHANCE YOU COULD BE ? :NO ARE YOU BREAST FEEDING? :NO CURRENT MEDICATIONS TAKING WHEELCHAIR 1 MISCELLANEOUS DIRECTED M51.16 DAILY TAKING WHEELCHAIR _ MISCELLANEOUS DIRECTED D X: R27.0 DAILY, NOTES: COLE [phone] TAKING GLUCOMETER (VERIO IQ) 1 GLUCOMETER DIRECTED E11.8 FOUR TIMES DAILY TAKING BL LANCETS 1 1 LANCET E11.8 FOUR TIMES DAILY TAKING ONETOUCH VERIO 1 STRIP 1 STRIP E11.9 BID TAKING DEPEND PANT EXTRA LARGE DEPENDS MISCELLANEOUS SUPER ABSORBENT HIP - 155 CM; WAIST - 146 CM ICD:N39.490 EVERY 2-4 HOURS NEEDED MDD: 5 BRIEFS TAKING LEVOTHYROXINE SODIUM 50 MCG TABLET 1 CAPSULE ORALLY ONCE A DAY TAKING SPIRONOLACTONE 50 MG TABLET 1 TAB ORALLY BID TAKING SPIRIVA HANDIHALER 18 MCG CAPSULE 1 CAPSULE INHALATION ONCE A DAY TAKING INSULIN PEN NEEDLE 31G X 6 MM MISCELLANEOUS DIRECTED SQ DAILY BEFORE BEDTIME DX:E11.8 TAKING ONETOUCH VERIO - STRIP DIRECTED SUBCUTANEOUSLY AC BID TAKING TORSEMIDE 10 MG TABLET 1 TABLET ORALLY BID TAKING GABAPENTIN 300 MG CAPSULE 1 TABLET ORALLY TID TAKING DULOXETINE HCL 30 MG CAPSULE DELAYED RELEASE PARTICLES 1 CAPSULE ORALLY BID TAKING ROLLER WALKER 1 MISCELLANEOUS DIRECTED M47.816 DAILY TAKING COMPRESSION STOCKINGS 20-30 MMHG DIRECTED L03.116 DAILY TAKING OMEPRAZOLE 40 MG CAPSULE DELAYED RELEASE 1 CAPSULE 30 MINUTES BEFORE MORNING MEAL ORALLY ONCE A DAY TAKING POTASSIUM CHLORIDE JYOTSNA ER 10 MEQ TABLET EXTENDED RELEASE 1 TABLET WITH FOOD ORALLY THREE TIMES DAILY TAKING ACETAMINOPHEN 325 MG TABLET 2 TABLETS NEEDED ORALLY EVERY 4 HRS TAKING BENADRYL ALLERGY 25 MG CAPSULE 1 CAPSULE AT BEDTIME NEEDED ORALLY EVERY 6 HOURS PRN TAKING ONDANSETRON HCL 4 MG TABLET 1 TABLET ORALLY Q 6 HOURS PRN TAKING MILK OF MAGNESIA 2400 MG/30ML SUSPENSION 10 ML NEEDED ORALLY DAILY TAKING BIOFREEZE EVERY 6 HOURS NEEDED TAKING ENEMA DISPOSABLE - ENEMA DIRECTED RECTAL TAKING COUGH DROPS MENTHOL - LOZENGE DIRECTED MOUTH/THROAT NEEDED EVERY HOUR TAKING XIFAXAN 550 MG TABLET 1 TABLET ORALLY TWICE A DAY TAKING PROPRANOLOL HCL 20 MG TABLET 1 TABLET ORALLY BID TAKING LIPITOR 40 MG TABLET 1 TABLET ORALLY ONCE A DAY TAKING ASPIR-81 TAKING FENTANYL 25 MCG/HR PATCH 72 HOUR 1 PATCH TO SKIN TRANSDERMAL EVERY 3 DAYS TAKING TRULICITY 0.75 MG/0.5ML SOLUTION PEN-INJECTOR DIRECTED SUBCUTANEOUS TAKING LEVEMIR 100 UNIT/ML SOLUTION DIRECTED SUBCUTANEOUS TAKING OXYCODONE HCL 5 MG TABLET 1 TABLET NEEDED, MDD OF 4 TABS ORALLY EVERY 4 HOURS NEEDED TAKING ROLLING WALKER 1 1 DIRECTED , NOTES: PINK OR PURPLE NOT-TAKING FENTANYL 12 MCG/HR PATCH 72 HOUR 1 PATCH TO SKIN TRANSDERMAL EVERY 3 DAYS NOT-TAKING LANTUS 100 UNIT/ML SOLUTION 60 IN THE AM AND 55 IN THE EVENING SUBCUTANEOUS NOT-TAKING ALBUTEROL SULFATE (2.5 MG/3ML) 0.083% NEBULIZATION SOLUTION 3 ML NEEDED INHALATION EVERY 2 HRS NOT-TAKING RIFAXIMIN 550 MG TABLET 1 TABLET ORALLY TWICE A DAY NOT-TAKING MAGNESIUM 400 MG CAPSULE 1 TABLET WITH A MEAL ORALLY TWICE A DAY NOT-TAKING METOPROLOL TARTRATE 25 MG TABLET 1 TABLET WITH FOOD ORALLY TWICE A DAY, NOTES: 10/31/20 NOT-TAKING LACTULOSE 20 GM/30ML SOLUTION 15 ML ORALLY TID NOT-TAKING BUTRANS 15 MCG/HR PATCH WEEKLY 1 PATCH TO SKIN TRANSDERMAL WEEKLY, REMOVE OLD PATCH NOT-TAKING BACTRIM DS 800-160 MG TABLET 1 TABLET ORALLY TWICE A DAY NOT-TAKING GUAIASORB DM 10-100 MG/5ML LIQUID 10 ML NEEDED ORALLY EVERY 4 HRS NOT-TAKING COLACE 100 MG CAPSULE 1 CAPSULE NEEDED ORALLY ONCE A DAY, NOTES: 02/04/2020 0800 NOT-TAKING BUTRANS 10 MCG/HR PATCH WEEKLY 1 PATCH TO SKIN TRANSDERMAL CHANGE PATCH EVERY 7 DAYS NOT-TAKING FAMOTIDINE 20 MG TABLET 1 TABLET AT BEDTIME ORALLY ONCE A DAY NOT-TAKING FERROUS SULFATE 325 (65 FE) MG TABLET 1 TABLET ORALLY ONCE A DAY NOT-TAKING XIFAXAN 550 MG TABLET 1 TABLET ORALLY TWICE A DAY NOT-TAKING TOUJEO SOLOSTAR 300 UNIT/ML SOLUTION PEN-INJECTOR DIRECTED SUBCUTANEOUS 80 UNITS IN AM 70 UNITS AT HS NOT-TAKING FISH OIL 1000 MG CAPSULE 1 CAPSULE ORALLY ONCE A DAY, NOTES: OTC NOT-TAKING KRISTALOSE 10 GM PACKET 1 PACKET ORALLY ONCE A DAY NOT-TAKING LIDODERM 5 % PATCH 1 PATCH REMOVE AFTER 12 HOURS EXTERNALLY ONCE A DAY NOT-TAKING TIZANIDINE HCL 4 MG TABLET 1 TABLET NEEDED ORALLY FOUR TIMES DAILY NOT-TAKING DIFLUCAN 100 MG TABLET 1 TABLET ORALLY BID NOT-TAKING HYDROXYZINE HCL 25 MG TABLET 1 TABLET NEEDED ORALLY EVERY 8 HRS NOT-TAKING NYSTATIN 171097 UNIT/GM CREAM 1 APPLICATION EXTERNALLY TWICE A DAY NOT-TAKING TRAMADOL HCL 50 MG TABLET 1 TABLET NEEDED ORALLY TID PRN PAIN NOT-TAKING KEFLEX 500 MG CAPSULE 1 CAPSULE ORALLY EVERY 12 HRS NOT-TAKING METOLAZONE 5 MG TABLET 1 TABLET ORALLY ONCE A DAY MEDICATION LIST REVIEWED AND RECONCILED WITH THE PATIENT PAST MEDICAL HISTORY OBESITY, MORBID CERVICAL/THORACIC/LUMBAR DJD-L2-S1 DIFFUSE BULGES-AT L5/S1 ABUTTING TS, B S1 PERIPHERAL EDEMA-01/2011 [id number] 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 BARAHONA, [facility], [place] OBSTRUCTIVE SLEEP APNEA HYPERLIPIDEMIA 2B COPD-07/2011 FEV1 1.9L (71%)/RATIO 92% T2DM ID GERD/HIATAL HERNIA-SEEN BY APRIL 2011 UPPER GI WITH SMALL BOWEL FOLLOW-THROUGH SCHIZOAFFECTIVE DISORDER-SPELLED BY DR. OSBORNE NONALCOHOLIC FATTY LIVER DISEASE-SEEN BY MARCH 2011 CT-NORMAL WORKUP 2010--CHRONIC HEPATITIS GRADE 2/4 WITH GRADE 4/4 CIRRHOSIS BY LIVER BIOPSY JULY 2011 VASOMOTOR SYMPTOMS VITAMIN D DEFICIENCY ALLERGIC RHINITIS RECURRENT CANDIDAL DERMATITIS ANTERIOR ABDOMEN LEUKOPENIA, CHRONIC CHRONIC ANTERIOR ABDOMINAL WALL PANNICULITIS PORTAL VENOUS HYPERTENSION SEEN BY MARCH 2011 CT CKD III-12/2013 NORMAL B RENAL US CHF 2 DIASTOLIC DYSFUNCTION-01/2017 TTE-GUADALUPE C GRADE 1 DIASTOLIC DYSFUNCTION, VERY MILD MR/TR B SHOULDER IMPIGNMENT SYNDROME-09/2015 L SHOULDER XRAY C MILD AC ARTHRITIS//S/P R PROXIMAL HUMERUS FRACTURE S/P MECHANICAL [id number] PER [facility]ERT RECURRENT HEPATIC ENCEPHALOPATHY-01/2017 MRI BRAIN MILD /VOLUME LOSS ASTHMA CELLULITIS HYPOTHYROIDISM MRSA (PER PT REPORT) ABDOMEN 06/16/2020 CHEST PAIN, HEAVINESS, SOB, ADMITTED TO [facility], DX TIA ALLERGIES CIPRO: CONFUSION - SIDE EFFECTS DOXYCYCLINE HYCLATE: ITCHY - ALLERGY MOTRIN: HIVES - ALLERGY SOCIAL HISTORY GENERAL: TOBACCO USE ARE YOU A:NONSMOKER LATEX QUESTIONNAIRE LATEX ALLERGY : HAVE YOU EVER DEVELOPED ANY TYPE OF REACTION AFTER HANDLING LATEX PRODUCTS SUCH RUBBER GLOVES, CONDOMS, DIAPHRAGMS, BALLOONS, SOCKS, OR UNDERWEAR?NO ALLERGY TO SOME TAPE - ONLY USES PAPER TAPE LATEX ALLERGY : HAVE YOU EVER DEVELOPED ANY TYPE OF REACTION DURING OR AFTER DENTAL APPOINTMENT, VAGINAL/RECTAL EXAMINATION, SURGICAL PROCEDURE, OR ANY OTHER EXPOSURE?NO DATE ASKED : 10/04/2020 LATEX RISK : HAVE YOU EVER HAD ANY DIFFICULTY BREATHING OR HIVES AFTER EATING OR HANDLING ANY FRUITS, OR VEGETABLES; SUCH KIWI, BANANAS, STONE FRUITS, OR CHESTNUTSNO LATEX RISK : DO YOU HAVE A PREVIOUS PERSONAL HISTORY OF MORE THAN NINE SURGERIES, SPINA BIFIDA, OR REPEATED CATHERIZATIONS? NO LATEX RISK : ARE YOU FREQUENTLY EXPOSED TO LATEX PRODUCTS IN YOUR OCCUPATION?NO LUNG CANCER SCREENING SMOKING STATUS:NON SMOKER BMI CARE GOAL FOLLOW-UP ABOVE NORMAL BMI FOLLOW-UPGIVING ENCOURAGEMENT TO EXERCISE ALCOHOL SCREENING DID YOU HAVE A DRINK CONTAINING ALCOHOL IN THE PAST YEAR?NO POINTS0 INTERPRETATIONNEGATIVE RECREATIONAL DRUG USE DRUG USE?NO CAFFEINE OCCASIONAL ONLY. SEXUAL HX HAD SEX IN THE LAST 12 MONTHS (VAGINAL, ORAL, OR ANAL)?NO HAVE YOU EVER HAD AN STD?NO GNOSTICISM [id number] CONFUCIANIST LANGUAGE LANGUAGES SPOKEN:SAMMARINESE EDUCATION LEVEL OF EDUCATION:FINISHED HIGH SCHOOL LEARNING BARRIERS / SPECIAL NEEDS CHANGE FROM LAST VISIT?NO BARRIERS TO LEARNING?NO HEARING IMPAIRED?NO VISION IMPAIRED?YES COGNITIVELY IMPAIRED?NO :CORRECTIVE LENSES READINESS TO LEARN?YES LEARNING PREFERENCES?YES :DEMONSTRATION/VERBAL INSTRUCTION LEARNING CAPABILITIES PRESENT?YES EMOTIONAL BARRIERS?NO SPECIAL DEVICES?NO COMPOSITE SCIENCE TEACHER NEEDED?NO DOMESTIC VIOLENCE DO YOU FEEL SAFE IN YOUR ENVIRONMENT?YES OCCUPATION: RETIRED. DIET: CARBOHYDRATE CONTROLLED. EXERCISE: NO REGULAR EXERCISE. MARITAL STATUS: SINGLE. OTHERS AT HOME: NONE. DAUGHTER LIVES NEAR BY.. - HAS THE PATIENT BEEN EDUCATED REGARDING HIS/HER PLAN OF CARE?YES HAS THE PATIENT BEEN EDUCATED REGARDING PAIN, THE RISK FOR PAIN, THE IMPORTANCE OF EFFECTIVE PAIN MANAGEMENT, AND THE PAIN ASSESSMENT PROCESS?YES HOUSING: CONFUCIANISM KEEP HOME. ADVANCE DIRECTIVE ADVANCE DIRECTIVE DISCUSSED WITH PATIENT:YES PT STATES THAT SHE DOES NOT HAVE HCP AT THIS TIME, DECLINES ASSISTANCE WITH PAPERWORK. REVIEW OF SYSTEMS CONSTITUTIONAL: ANY RECENT FEVER NO . CHILLS NO . WEIGHT CHANGE OF UNKNOWN REASONS NO . GASTROENTEROLOGY: NEW UNEXPLAINABLE CHANGES IN BOWEL CONTROL NO . CONSTIPATION NO . GENITOURINARY: ANY NEW CHANGE IN BLADDER CONTROL? NO . NEUROLOGY: NEW ONSET DIZZINESS OR NEUROLOGICAL CHANGES NOT MENTIONED NO . NEW NUMBNESS OR PAIN PATTERNS NOT MENTIONED AND PERTINENT TO TODAY'S VISIT NO . CARDIOLOGY: NEW CHEST PRESSURE NO . PATIENT DENIES NO HISTORY OF HIGH BLOOD PRESSURE . RESPIRATORY: UNEXPLAINABLE COUGH NO . NEW SHORTNESS OF BREATH NO HISTORY OF COPD . EXAMINATION GENERAL EXAMINATION: THE PATIENT IS ALERT, ORIENTED TIMES THREE AND COOPERATIVE. THIS IS A TELEPHONE VISIT. MRI OF THE LUMBAR SPINE DATED 07/2020 SHOWS BULGING DISC AT L3-L4 AND L4-L5 WITH SEVERE STENOSIS AT L4-L5. ASSESSMENTS OTHER CHRONIC PAIN - G89.29 INTERVERTEBRAL DISC DISORDERS WITH RADICULOPATHY, LUMBAR REGION - M51.16 INTERVERTEBRAL DISC DISORDERS WITH RADICULOPATHY, LUMBOSACRAL REGION - M51.17 SPINAL STENOSIS, LUMBAR REGION WITH NEUROGENIC CLAUDICATION - M48.062 TREATMENT OTHER CHRONIC PAIN PAIN PROCEDURE LOGDATE OF PROCEDURE12/12/20PROCEDURE:LEFT L3-L4 AND L4-L5 TRANSFORAMINAL EPIDURAL STEROID INJECTIONRESULT:DOING WELL NOTES: PAT DONE 12/23/20 1345 [address] JUAN SHOE STICKS REPAIRER. NO VITAL SIGNS TAKEN FOR TELEPHONE VISIT. EM. INTERVERTEBRAL DISC DISORDERS WITH RADICULOPATHY, LUMBAR REGION CLINICAL NOTES: I WOULD LIKE TO SEE THE PATIENT IN CLINIC FOR A PHYSICAL EXAMINATION AND I MAY DO A RIGHT TRANSFORAMINAL L3-L4, L4-L5 THAT DAY DEPENDING ON THE PHYSICAL EXAMINATION. THE PATIENT MAY BE A CANDIDATE FOR A MILD VERSES A VERTIFLEX. TOTAL TIME FOR THIS VISIT WAS 12 MINUTES. THE PATIENT REPORTS UNDERSTANDING AND AGREES WITH THE PLAN. I, SYDNEY FAIRBANKS, DOCUMENTED THE ABOVE INFORMATION ACTING A SCRIBE FOR DR. HERNANDEZ. I HAVE REVIEWED THE ABOVE DOCUMENT, WRITTEN BY SYDNEY FAIRBANKS, HEALTH COORDINATOR, AND I VERIFY THAT IT IS ACCURATE. PROCEDURE CODES 63619 TELEMEDICINE PHONE E/M BY PHYS 11-20 MIN DISPOSITION & COMMUNICATION FOLLOW UP BOOK A RIGHT TRANSFORAMINAL L3-L4, L4-L5. PATIENT NEEDS PHYSICAL EXAMINATION THAT DAY (REASON: BOOK A RIGHT TRANSFORAMINAL L3-L4, L4-L5. PATIENT NEEDS PHYSICAL EXAMINATION THAT DAY) ELECTRONICALLY SIGNED BY CAMACHO HERNANDEZ MD, MD ON 12/27/2020 AT 03:20 PM EDT DISCLAIMER : THIS IS A VISIT SUMMARY EXTRACTED FROM THE [employer] CHART. IT IS NOT A COPY OF THE [employer] PROGRESS NOTE. MTDD
== END ==
LOC: M PAIN 14:30
PROVIDERS: ATTEND Anesthesiology
DX: G89.29 Other chronic pain (principal); M51.16 Intervertebral disc disorders with radiculopathy, lumbar region; M51.17 Intervertebral disc disorders with radiculopathy, lumbosacral region; M48.062 Spinal stenosis, lumbar region with neurogenic claudication; M48.061 Spinal stenosis, lumbar region without neurogenic claudication; E66.01 Morbid (severe) obesity due to excess calories; M51.27 Other intervertebral disc displacement, lumbosacral region; D50.9 Iron deficiency anemia, unspecified; I13.2 Hypertensive heart and chronic kidney disease with heart failure and with stage 5 chronic kidney disease, or end stage renal disease; G47.33 Obstructive sleep apnea (adult) (pediatric); J44.9 Chronic obstructive pulmonary disease, unspecified; E11.22 Type 2 diabetes mellitus with diabetic chronic kidney disease; K21.9 Gastro-esophageal reflux disease without esophagitis; E55.9 Vitamin D deficiency, unspecified; N18.4 Chronic kidney disease, stage 4 (severe); I50.32 Chronic diastolic (congestive) heart failure; J45.909 Unspecified asthma, uncomplicated; E03.9 Hypothyroidism, unspecified; Z79.4 Long term (current) use of insulin; Z79.82 Long term (current) use of aspirin; Z79.899 Other long term (current) drug therapy; Z88.1 Allergy status to other antibiotic agents; Z88.5 Allergy status to narcotic agent; Z88.8 Allergy status to other drugs, medicaments and biological substances; Z68.33 Body mass index [BMI] 33.0-33.9, adult

== ENCOUNTER → 2020-12-23 | Outpatient (REF) | payer MEDICARE, MEDICAID | LOC: SKLAB5 06:56 | PROVIDERS: ATTEND Internal Medicine | DX: Z20.822 Contact with and (suspected) exposure to COVID-19 (principal) ==

== ENCOUNTER → 2020-12-24 | Outpatient (REF) | payer MEDICARE, MEDICAID ==
--- NOTE | 2020-12-24 16:19 | REP ---
INDICATION: LT HIP PAIN SHOOTING TO NECK. COMPARISON: 04/10/2013. TECHNIQUE: AP and frogleg views. FINDINGS: Mineralization and joint space are normal. There is no fracture or dislocation. There are calcifications inferiorly in the pelvis, likely phleboliths. There is a calcification in left buttocks, likely injection granuloma, unchanged. There is no flattening or deformity of the femoral head. IMPRESSION: Essentially negative left hip. If symptoms persist or worsen consider MRI. <Electronically signed by Jim Del Toro > 12/24/20 [id number]
--- NOTE | 2020-12-24 16:22 | REP ---
INDICATION: LT HIP PAIN SHOOTING TO NECK. COMPARISON: PA and lateral chest dated 09/12/2017. TECHNIQUE: Upright PA and lateral chest. FINDINGS: There is mild chronic diffuse interstitial coarsening, compatible with chronic lung disease. The lung calderón are otherwise clear. Cardiac size is normal. The dudley, mediastinum, and skeletal structures are unremarkable and unchanged. An old left humeral neck fracture is again noted. IMPRESSION: Chronic mild interstitial coarsening compatible with chronic lung disease. No acute cardiopulmonary findings. <Electronically signed by Jim Del Toro > 12/24/20 3937
== END ==
LOC: SKLAB5 15:25
PROVIDERS: ATTEND Student in an Organized Health Care Education/Training Program
DX: M25.552 Pain in left hip (principal); M54.2 Cervicalgia

== ENCOUNTER → 2020-12-27 | Outpatient (REF) | payer MEDICARE, MEDICAID ==
[2020-12-27 09:03] LABS: CHOLESTEROL RISK RATIO 1.809 (<5)
== END ==
LOC: SKLAB5 07:33
DX: E78.5 Hyperlipidemia, unspecified (principal)

== ENCOUNTER → 2021-01-02 | Outpatient (CLI) | payer MEDICARE, MEDICAID ==
[~2021-01-02] MED LIST changes: -DEXT4TAB2 PO; +SFHGLU4TA PO
--- NOTE | 2021-01-02 15:17 | REP ---
INDICATION: INCREASED SWELLING/PAIN, R/O DVT. COMPARISON: Not applicable TECHNIQUE: Multiple ultrasonographic images of the deep venous structures of the left thigh were obtained from the common femoral vein to the popliteal vein along with Doppler interrogation and color flow Doppler images. FINDINGS: There is no abnormal echogenic material seen within any of the visualized deep venous structures that would suggest acute thrombosis. Coaptation is unremarkable throughout. Doppler interrogation shows an expected response to respiratory variability and augmentation. The color flow images show what appears to be a normal vascular pattern throughout. IMPRESSION: There is no ultrasonographic evidence of deep venous thrombosis involving any of the visualized deep venous structures of the left thigh, as described above. <Electronically signed by Nathaniel Iraheta > 01/02/21 [id number]
== END ==
LOC: M RAD 14:43
PROVIDERS: ATTEND Student in an Organized Health Care Education/Training Program
DX: M79.605 Pain in left leg (principal); M79.89 Other specified soft tissue disorders

== ENCOUNTER → 2021-01-12 | Outpatient (REF) | payer MEDICARE, MEDICAID ==
[~2021-01-12] MED LIST changes: +BACTDSTA PO; +GABA-283 PO; -GABA-845 PO; -SULF1TAB93 PO
== END ==
LOC: SKLAB5 08:01
PROVIDERS: ATTEND Internal Medicine
DX: Z20.822 Contact with and (suspected) exposure to COVID-19 (principal)

== ENCOUNTER → 2021-01-16 | Outpatient (CLI) | payer MEDICARE, MEDICAID ==
--- NOTE | 2021-01-16 14:35 | REP ---
INDICATION: DYSPREA. COMPARISON: Multiple the latest 12/24/2020 TECHNIQUE: PA and lateral views FINDINGS: The cardiomediastinal silhouette is stable. The heart is not enlarged. Since the last examination a diffuse increase in the interstitial markings has developed along with potential early airspace opacities as well. There is minimal bilateral CP angle blunting which has developed. IMPRESSION: Findings as described above suggestive of pulmonary edema superimposed upon chronic fibrotic changes. <Electronically signed by Nathaniel Iraheta > 01/16/21 [id number]
== END ==
LOC: M RAD 12:32
DX: R06.09 Other forms of dyspnea (principal)

== ENCOUNTER → 2021-01-16 | Outpatient (REF) | payer MEDICARE, MEDICAID, OTHER ==
[~2021-01-16] MED LIST changes: -BACTDSTA PO; -GABA-283 PO; +GABA-845 PO; +SULF1TAB93 PO
== END ==
LOC: SKLAB5 08:50
DX: Z53.8 Procedure and treatment not carried out for other reasons (principal)

== ENCOUNTER → 2021-01-17 | Outpatient (REF) | payer MEDICARE, MEDICAID ==
[2021-01-17 14:07] LABS: HEMATOCRIT 35.9 % (36.0-47.0); HEMOGLOBIN 10.9 g/dl (12.0-15.5); MEAN CORPUSCULAR HEMOGLOBIN 25.3 pg (27.0-33.0); MEAN CORPUSCULAR HGB CONC 30.4 g/dl (32.0-36.5); MEAN CORPUSCULAR VOLUME 83.3 fl (80.0-96.0); PLATELET COUNT, AUTOMATED 177 10^3/uL (150-450); RED BLOOD COUNT 4.31 10^6/uL (4.00-5.40); WHITE BLOOD COUNT 8.7 10^3/uL (4.0-10.0)
[2021-01-17 14:24] LABS: CALCIUM LEVEL 8.4 MG/DL (8.8-10.2); CREATININE FOR GFR 1.05 MG/DL (0.55-1.30); GLOMERULAR FILTRATION RATE 55.8 (>45); POTASSIUM SERUM 4.2 MEQ/L (3.5-5.1)
== END ==
LOC: SKLAB5 12:29
DX: I50.9 Heart failure, unspecified (principal); D64.9 Anemia, unspecified

== ENCOUNTER → 2021-01-26 | Outpatient (REF) | payer MEDICARE, MEDICAID ==
[~2021-01-26] MED LIST changes: +BACTDSTA PO; +BUSP5TA PO; +FERR324T21 PO; +GABA-283 PO; -GABA-845 PO; +KAOP262S PO; +LISI-898 PO; +NEOM500T PO; +OMEP40CA4 PO; -OMEP40CA97 PO; +SENN-80 PO; -SULF1TAB93 PO; +TRUL10IN SC; +[UNRECOGNIZED DRUG - CODE] PO
[2021-01-26 09:15] LABS: HEMATOCRIT 31.7 % (36.0-47.0); HEMOGLOBIN 9.6 g/dl (12.0-15.5); MEAN CORPUSCULAR HEMOGLOBIN 24.9 pg (27.0-33.0); MEAN CORPUSCULAR HGB CONC 30.3 g/dl (32.0-36.5); MEAN CORPUSCULAR VOLUME 82.1 fl (80.0-96.0); PLATELET COUNT, AUTOMATED 227 10^3/uL (150-450); RED BLOOD COUNT 3.86 10^6/uL (4.00-5.40); WHITE BLOOD COUNT 10.2 10^3/uL (4.0-10.0)
[2021-01-26 09:45] LABS: CREATININE FOR GFR 1.13 MG/DL (0.55-1.30); GLOMERULAR FILTRATION RATE 51.3 (>45); POTASSIUM SERUM 4.3 MEQ/L (3.5-5.1)
[2021-01-26 09:46] LABS: ALBUMIN 2.5 GM/DL (3.2-5.2); BILIRUBIN,TOTAL 0.5 MG/DL (0.2-1.0); CALCIUM LEVEL 8.5 MG/DL (8.8-10.2); MAGNESIUM LEVEL 2.1 MG/DL (1.8-2.4); TOTAL PROTEIN 6.9 GM/DL (6.4-8.2)
== END ==
LOC: SKLAB5 06:00
DX: D64.9 Anemia, unspecified (principal); N18.9 Chronic kidney disease, unspecified

== ENCOUNTER → 2021-02-08 | Outpatient (REF) | payer MEDICARE, MEDICAID ==
[~2021-02-08] MED LIST changes: -BUSP5TA PO; -FERR324T21 PO; -KAOP262S PO; -LISI-898 PO; -NEOM500T PO; -OMEP40CA4 PO; +OMEP40CA97 PO; -SENN-80 PO; -TRUL10IN SC; -[UNRECOGNIZED DRUG - CODE] PO
--- NOTE | 2021-02-08 14:47 | REP ---
INDICATION: SOB. COMPARISON: Multiple the latest 01/16/2021 a two view exam TECHNIQUE: Portable FINDINGS: The technique utilized in obtaining the radiograph has magnified the cardiac silhouette and attenuated the interstitial markings. The cardiomediastinal silhouette lung calderón are essentially unchanged. No acute patchy parenchymal opacities or pleural effusions have developed. Scattered reticulonodular densities are again noted accentuated by technique IMPRESSION: Suspect chronic lung field changes accentuated by technique. Superimposed mild interstitial edema cannot be ruled out on this portable exam. Consider PA and lateral views of the chest <Electronically signed by Nathaniel Iraheta > 02/08/21 0412
== END ==
LOC: SKLAB5 13:58
DX: R91.8 Other nonspecific abnormal finding of lung field (principal)

== ENCOUNTER → 2021-02-09 | Outpatient (REF) | payer MEDICARE, MEDICAID ==
[2021-02-09 09:54] LABS: HEMATOCRIT 27.8 % (36.0-47.0); HEMOGLOBIN 8.2 g/dl (12.0-15.5); MEAN CORPUSCULAR HGB CONC 29.5 g/dl (32.0-36.5); MEAN CORPUSCULAR VOLUME 81.5 fl (80.0-96.0); PLATELET COUNT, AUTOMATED 256 10^3/uL (150-450); RED BLOOD COUNT 3.41 10^6/uL (4.00-5.40); WHITE BLOOD COUNT 6.8 10^3/uL (4.0-10.0)
[2021-02-09 10:25] LABS: CALCIUM LEVEL 8.4 MG/DL (8.8-10.2); CREATININE FOR GFR 1.15 MG/DL (0.55-1.30); GLOMERULAR FILTRATION RATE 50.3 (>45); POTASSIUM SERUM 4.6 MEQ/L (3.5-5.1)
== END ==
LOC: SKLAB5 07:14
DX: I50.9 Heart failure, unspecified (principal)

== ENCOUNTER → 2021-02-11 | Outpatient (REF) | payer MEDICARE, MEDICAID | LOC: SKLAB5 17:15 | DX: K92.2 Gastrointestinal hemorrhage, unspecified (principal) ==

== ENCOUNTER → 2021-02-12 | Outpatient (CLI) | payer MEDICARE, MEDICAID | LOC: SKLAB5 23:26 | DX: D64.9 Anemia, unspecified (principal) ==

== ENCOUNTER → 2021-02-14 | Outpatient (REF) | payer MEDICARE, MEDICAID, OTHER ==
[2021-02-14 08:37] LABS: HEMATOCRIT 28.7 % (36.0-47.0); HEMOGLOBIN 8.6 g/dl (12.0-15.5); MEAN CORPUSCULAR HEMOGLOBIN 23.7 pg (27.0-33.0); MEAN CORPUSCULAR VOLUME 79.1 fl (80.0-96.0); PLATELET COUNT, AUTOMATED 265 10^3/uL (150-450); RED BLOOD COUNT 3.63 10^6/uL (4.00-5.40); WHITE BLOOD COUNT 8.5 10^3/uL (4.0-10.0)
[2021-02-14 09:21] LABS: PERCENT SATURATION 5.8 % (13.2-45.0)
== END ==
LOC: SKLAB5 11:23
DX: D64.9 Anemia, unspecified (principal)

== ENCOUNTER → 2021-02-17 | Outpatient (REF) | payer MEDICARE, MEDICAID ==
[2021-02-17 09:49] LABS: HEMATOCRIT 29.1 % (36.0-47.0); HEMOGLOBIN 8.6 g/dl (12.0-15.5); MEAN CORPUSCULAR HEMOGLOBIN 23.4 pg (27.0-33.0); MEAN CORPUSCULAR HGB CONC 29.6 g/dl (32.0-36.5); MEAN CORPUSCULAR VOLUME 79.1 fl (80.0-96.0); PLATELET COUNT, AUTOMATED 213 10^3/uL (150-450); RED BLOOD COUNT 3.68 10^6/uL (4.00-5.40); WHITE BLOOD COUNT 8.3 10^3/uL (4.0-10.0)
[2021-02-17 10:15] LABS: CALCIUM LEVEL 9.3 MG/DL (8.8-10.2); CREATININE FOR GFR 1.63 MG/DL (0.55-1.30); GLOMERULAR FILTRATION RATE 33.6 (>45); POTASSIUM SERUM 3.7 MEQ/L (3.5-5.1)
== END ==
LOC: SKLAB5 11:24
DX: K74.60 Unspecified cirrhosis of liver (principal)

== ENCOUNTER → 2021-02-21 | Outpatient (REF) | payer MEDICARE, MEDICAID ==
[2021-02-21 13:11] LABS: ALBUMIN 2.8 GM/DL (3.2-5.2); ALT/SGPT 29 U/L (12-78); BILIRUBIN,DIRECT < 0.1 MG/DL (0.0-0.2); BILIRUBIN,TOTAL 0.8 MG/DL (0.2-1.0); TOTAL PROTEIN 8.5 GM/DL (6.4-8.2)
== END ==
LOC: SKLAB5 11:17
DX: R41.0 Disorientation, unspecified (principal); K74.60 Unspecified cirrhosis of liver

== ENCOUNTER → 2021-02-27 | Outpatient (REF) | payer MEDICARE, MEDICAID ==
[2021-02-27 10:47] LABS: CREATININE FOR GFR 1.78 MG/DL (0.55-1.30); GLOMERULAR FILTRATION RATE 30.4 (>45); POTASSIUM SERUM 4.6 MEQ/L (3.5-5.1)
== END ==
LOC: SKLAB5 08:58
DX: R41.0 Disorientation, unspecified (principal)

== ENCOUNTER → 2021-02-28 | Outpatient (REF) | payer MEDICARE, MEDICAID ==
[2021-02-28 15:10] LABS: BASO % 0.4 % (0.0-1.0); EOS % 0.2 % (0.0-3.0); HEMATOCRIT 28.8 % (36.0-47.0); HEMOGLOBIN 8.7 g/dl (12.0-15.5); LYMPH % 8.8 % (24.0-44.0); MEAN CORPUSCULAR HEMOGLOBIN 24.8 pg (27.0-33.0); MEAN CORPUSCULAR HGB CONC 30.2 g/dl (32.0-36.5); MEAN CORPUSCULAR VOLUME 82.1 fl (80.0-96.0); MONO # 0.8 10^3/uL (0.0-0.8); MONO % 7.2 % (2.0-8.0); NEUTROPHILS # 9.2 10^3/uL (1.5-8.5); NEUTROPHILS % 82.6 % (36.0-66.0); PLATELET COUNT, AUTOMATED 143 10^3/uL (150-450); RED BLOOD COUNT 3.51 10^6/uL (4.00-5.40); WHITE BLOOD COUNT 11.2 10^3/uL (4.0-10.0)
[2021-02-28 15:49] LABS: CALCIUM LEVEL 7.4 MG/DL (8.8-10.2); CREATININE FOR GFR 1.41 MG/DL (0.55-1.30); GLOMERULAR FILTRATION RATE 39.7 (>45); POTASSIUM SERUM 3.3 MEQ/L (3.5-5.1)
== END ==
LOC: SKLAB5 14:13
PROVIDERS: ATTEND Internal Medicine
DX: L03.90 Cellulitis, unspecified (principal); Z79.899 Other long term (current) drug therapy

== ENCOUNTER → 2021-03-02 | Outpatient (REF) | payer MEDICARE, MEDICAID ==
[2021-03-02 11:52] LABS: CALCIUM LEVEL 7.7 MG/DL (8.8-10.2); CREATININE FOR GFR 1.39 MG/DL (0.55-1.30); GLOMERULAR FILTRATION RATE 40.4 (>45); POTASSIUM SERUM 3.7 MEQ/L (3.5-5.1)
== END ==
LOC: SKLAB5 06:44
PROVIDERS: ATTEND Internal Medicine
DX: I50.9 Heart failure, unspecified (principal); E87.6 Hypokalemia

== ENCOUNTER → 2021-03-06 | Outpatient (CLI) | payer MEDICARE, MEDICAID ==
[~2021-03-06] MED LIST changes: +OMEP40CA4 PO; -OMEP40CA97 PO
--- NOTE | 2021-03-06 14:22 | REP ---
INDICATION: DENIS LEG ULCERS. COMPARISON: None. TECHNIQUE: Real time calderon scale and Duplex Doppler evaluation of the left lower extremity arterial vasculature using linear high frequency transducer. Patient refused evaluation of the right lower extremity arterial vasculature. FINDINGS: Moderate diffuse plaquing is noted. There are diffuse monophasic waveforms. Tibioperoneal trunk and proximal posterior tibial artery not well visualized due to body habitus. There is no definite hemodynamically significant stenosis of the left lower extremity arterial structures. PSV(cm/sec) Common iliac artery: 164 centimeter/second External iliac artery: 113 centimeter/second Common femoral artery: 237 cm/s Profunda femoris artery: 194 cm/s Proximal superficial femoral artery: 213 cm/s Mid superficial femoral artery: 176 cm/s Distal superficial femoral artery: 80 cm/s Popliteal artery: 95 cm/s Proximal BRANDON: 85 cm/s Tibioperoneal trunk: Not visualized Proximal REFINED SYRUP OPERATOR: Not visualized Distal REFINED SYRUP OPERATOR: 39 cm/s Distal BRANDON: 37 cm/s IMPRESSION: No Duplex Doppler sonographic evidence of hemodynamically significant stenosis of the left lower extremity arterial system. Moderate diffuse plaque with monophasic waveforms. The patient declined evaluation of the right lower extremity arterial vasculature. <Electronically signed by Jim Calderon > 03/06/21 [id number]
== END ==
LOC: M RAD 11:58
PROVIDERS: ATTEND Surgery
DX: L97.812 Non-pressure chronic ulcer of other part of right lower leg with fat layer exposed (principal); L97.822 Non-pressure chronic ulcer of other part of left lower leg with fat layer exposed

== ENCOUNTER → 2021-03-06 | Outpatient (REF) | payer MEDICARE, MEDICAID ==
[2021-03-06 15:46] LABS: CALCIUM LEVEL 7.5 MG/DL (8.8-10.2); CREATININE FOR GFR 1.48 MG/DL (0.55-1.30); GLOMERULAR FILTRATION RATE 37.6 (>45)
[2021-03-06 18:03] LABS: CALCIUM LEVEL 8.2 MG/DL (8.8-10.2); CREATININE FOR GFR 1.44 MG/DL (0.55-1.30); GLOMERULAR FILTRATION RATE 38.8 (>45); POTASSIUM SERUM 5.5 MEQ/L (3.5-5.1)
== END ==
LOC: SKLAB5 16:38
DX: L03.90 Cellulitis, unspecified (principal)

== ENCOUNTER → 2021-03-14 | Outpatient (POV) | payer MEDICARE, MEDICAID ==
[~2021-03-14] VITALS: Ht 160 cm; Wt 114.1 kg
[2021-03-14 13:40] VITALS: BP 116/85
--- NOTE | 2021-03-15 15:07 | IRCOV ---
[facility] IR Consult Office Visit IR Consult Office Visit DATE: Mar 14, 2021 REASON FOR CONSULTATION/CHIEF COMPLAINT: Nonhealing bilateral lower extremity ulcers. HISTORY OF PRESENT ILLNESS: 65-year-old female with diabetes and hypertension, complaining of decade long history of bilateral lower extremity ulcers. These are located on the shins. There are not healing. She denies pain associated with ulcers. She had no prior venous workup or intervention. She denies prior varicose veins. Patient denies intermittent claudication. She does report pain in the legs at night with elevation, left worse than right. She is referred by wound care for arterial evaluation prior to high-grade compression therapy for her venous ulcers. Patient denies chest pain, shortness of breath, orthopnea or paroxysmal nocturnal dyspnea. She does suffer with anxiety. Patient denies prior DVT. ALLERGIES: Please see below. HOME MEDICATIONS: Please see below. PAST MEDICAL HISTORY: Morbid obesity Disc disease Anemia Hypertension RENEE Hyperlipidemia COPD Diabetes Schizoaffective disorder Nonalcoholic fatty liver disease Cirrhosis Vasomotor symptoms Vitamin D deficiency Portal venous hypertension Chronic kidney disease CHF Arthritis Hypothyroidism Anxiety disorder Atrial fibrillation Chronic venous insufficiency PAST SURGICAL HISTORY: Hysterectomy FAMILY HISTORY: Noncontributory. SOCIAL HISTORY: Nonsmoker. Denies alcohol or drugs. REVIEW OF SYSTEMS: Otherwise negative. PHYSICAL EXAMINATION: VITAL SIGNS: Please see below. GENERAL APPEARANCE: Appears well. Comfortable at rest. HEENT: No scleral icterus. RESPIRATORY: Normal breathing at rest. CARDIOVASCULAR: Normal rate. ABDOMEN: Soft nontender. EXTREMITIES: Left lower extremity: No edema. Skin is dry, scaly, thickened with reddish-brown discoloration. Wounds on anterior tibia. skin warm to touch. Femoral pulse +. Sensation intact. Motor 5 out of 5. Right lower extremity: No edema. Skin is dry scaly thickened with reddish-brown discoloration. Wounds on anterior tibia. skin warm to touch. Femoral pulse 1+. Sensation intact. Motor 5 out of 5. NEUROLOGICAL: Alert and oriented. PSYCHIATRIC: Appropriate to circumstance. LABORATORY DATA: 02/28/2021 hemoglobin 8.7 hematocrit 28.8 WBC 11.2 platelets 143 03/09/2021 sodium 137 potassium 4.1 BUN 21 creatinine 1.27 GFR 44.8 hemoglobin A1c in November was 7.5 LDL 22 in December 2020 Imaging: I personally reviewed the left lower extremity arterial ultrasound performed 03/06/2021. Atherosclerotic plaque with monophasic waveform groin to ankle. ASSESSMENT/PLAN: 65-year-old female with bilateral lower extremity venous ulcers and skin changes in keeping with venous hypertension. I've ordered bilateral lower extremity venous reflux study to evaluate for saphenous vein incompetency. She also suffers with left greater than right lower extremity rest pain and has abnormal arterial ultrasound. We discussed the risks and benefits of angiography and intervention and patient is willing to proceed. We'll schedule the patient for left lower extremity angiography and further intervention if appropriate I spent 30 minutes reviewing patient's records, imaging and in consultation with the patient. Thank you for this referral. Cc Dr. Pleitez Allergies Coded Allergies: Penicillins (Verified Allergy, Intermediate, HIVES, 07/27/19) Quinolones (Verified Allergy, Intermediate, HIVES, 07/08/20) ibuprofen (Verified Allergy, Mild, RASH, 07/08/20) Home Medications Scheduled Aluminum/Magnesium/Simeth (Mag-Al Plus Suspension), 30 ML PO AC, (Reported) Aspirin (Aspirin), 81 MG PO DAILY, (Reported) Atorvastatin Calcium (Atorvastatin Calcium), 40 MG PO DAILY, (Reported) Buprenorphine (Butrans), 1 PATCH TOP QWEEK, (Reported) Duloxetine Hcl (Cymbalta), 30 MG PO BID, (Reported) Gabapentin (Gabapentin), 300 MG PO TID, (Reported) Insulin Glargine (Lantus), 60 UNITS SC DAILY, (Reported) Insulin Glargine (Lantus), 55 UNITS SC QHS, (Reported) L.acidoph/L.bulg/B.bif/S.therm (Leny-Bid Caplet), 1 EA PO WM Levothyroxine Sodium (Levoxyl), 50 MCG PO DAILY, (Reported) Omeprazole (Omeprazole), 40 MG PO DAILY, (Reported) Potassium Chloride (Potassium Chloride), 10 MEQ PO TID, (Reported) Propranolol HCl (Propranolol HCl), 20 MG PO BID, (Reported) Rifaximin (Xifaxan), 550 MG PO BID, (Reported) Spironolactone (Spironolactone), 50 MG PO BID, (Reported) Sulfamethoxazole/Trimethoprim (Sulfamethoxazole-Tmp Ds Tablet), 1 TAB PO BID Tiotropium Seltzer (Spiriva), 1 INHALATION INH DAILY, (Reported) Torsemide (Torsemide), 10 MG PO BID, (Reported) Scheduled PRN Acetaminophen (Tylenol), 650 MG PO Q4H PRN for PAIN / FEVER, (Reported) Albuterol Sulf (Albuterol Sulfate), 2.5 MG INH Q2H PRN for SOB/WHEEZING, (Reported) Bisacodyl (Dulcolax), 10 MG CO DAILY PRN for CONSTIPATION, (Reported) Diphenhydramine HCl (Diphenhydramine HCl), 25 MG PO Q6H PRN for ITCHING, (Reported) Eucalyptus/Menthol (Cough Drops), 1 LOZENGE MT Q1H PRN for COUGH, (Reported) Hydroxyzine Pamoate (Hydroxyzine Pamoate), 25 MG PO QID PRN for ANXIETY, (Reported) Menthol (Biofreeze), 1 DOSE EXT Q4H PRN for PAIN, (Reported) Milk Of Magnesia (Milk of Magnesia), 10 ML PO DAILY PRN for CONSTIPATION, (Reported) Ondansetron HCl (Zofran), 4 MG PO Q6H PRN for NAUSEA, (Reported) Oxycodone HCl (Oxycodone HCl), 10 MG PO Q4H PRN for PAIN LEVEL 7-10, (Reported) Sodium Phosphate,[place]-Dibasic (Enema), 1 EMANUEL CO DAILY PRN for CONSTIPATION, (Reported) VS, I&O, 24H, Fishbone Vital Signs/I&O Vital Signs Date Time Temp Pulse Resp B/P (MAP) Pulse Ox O2 Delivery O2 Flow Rate FiO2 03/14/21 13:40 97.3 81 20 116/85 (95) 98 Room Air VETO ORDOÑEZ MD Mar 15, 2021 15:07
== END ==
LOC: M IRPOV 13:09
PROVIDERS: ATTEND Radiology Diagnostic Radiology
DX: E11.59 Type 2 diabetes mellitus with other circulatory complications (principal); E11.622 Type 2 diabetes mellitus with other skin ulcer; L97.819 Non-pressure chronic ulcer of other part of right lower leg with unspecified severity; L97.919 Non-pressure chronic ulcer of unspecified part of right lower leg with unspecified severity; M79.604 Pain in right leg; M79.605 Pain in left leg; I10 Essential (primary) hypertension; G47.33 Obstructive sleep apnea (adult) (pediatric); E78.5 Hyperlipidemia, unspecified; J44.9 Chronic obstructive pulmonary disease, unspecified; F25.9 Schizoaffective disorder, unspecified; K76.0 Fatty (change of) liver, not elsewhere classified; K74.60 Unspecified cirrhosis of liver; E55.9 Vitamin D deficiency, unspecified; N18.9 Chronic kidney disease, unspecified; I50.9 Heart failure, unspecified; K76.6 Portal hypertension; M12.9 Arthropathy, unspecified; E03.9 Hypothyroidism, unspecified; F41.9 Anxiety disorder, unspecified; I48.91 Unspecified atrial fibrillation; I87.2 Venous insufficiency (chronic) (peripheral); Z88.0 Allergy status to penicillin; Z88.6 Allergy status to analgesic agent; Z88.8 Allergy status to other drugs, medicaments and biological substances; Z90.710 Acquired absence of both cervix and uterus; Z79.899 Other long term (current) drug therapy

== ENCOUNTER → 2021-03-16 | Outpatient (REF) | payer MEDICARE, MEDICAID ==
[2021-03-16 10:07] LABS: ALBUMIN 2.9 GM/DL (3.2-5.2); CREATININE FOR GFR 1.4 MG/DL (0.55-1.30); GLOMERULAR FILTRATION RATE 40.1 (>45); PHOSPHORUS LEVEL 3.7 MG/DL (2.5-4.9); POTASSIUM SERUM 3.8 MEQ/L (3.5-5.1)
== END ==
LOC: SKLAB5 11:24
DX: I50.9 Heart failure, unspecified (principal)

== ENCOUNTER → 2021-03-23 | Outpatient (REF) | payer MEDICARE, MEDICAID ==
[2021-03-23 10:19] LABS: ALBUMIN 2.7 GM/DL (3.2-5.2); CALCIUM LEVEL 9.1 MG/DL (8.8-10.2); CREATININE FOR GFR 1.35 MG/DL (0.55-1.30); GLOMERULAR FILTRATION RATE 41.8 (>45); PHOSPHORUS LEVEL 3.6 MG/DL (2.5-4.9); POTASSIUM SERUM 3.5 MEQ/L (3.5-5.1)
== END ==
LOC: SKLAB5 08:50
DX: I50.9 Heart failure, unspecified (principal)

== ENCOUNTER → 2021-03-28 | Outpatient (REF) | payer MEDICARE, MEDICAID | LOC: SKLAB5 08:01 | DX: E03.9 Hypothyroidism, unspecified (principal) ==

== ENCOUNTER → 2021-03-29 | Outpatient (CLI) | payer MEDICARE, MEDICAID ==
--- NOTE | 2021-03-29 14:53 | REP ---
INDICATION: DENIS LEG VERNOUS INSUFFANCY W/ ULCER COMPARISON: None. TECHNIQUE: Calderon scale and color Doppler evaluation using linear high frequency transducer. FINDINGS: Ultrasound examination of the right and left lower extremity deep venous structures from the common femoral vein through the popliteal veins demonstrates normal compressibility flow and wave patterns in response to respiration and augmentation. There is no evidence for deep venous thrombosis. Evaluation below the level of the popliteal veins bilaterally was incomplete due to subcutaneous edema, body habitus and superficial wounds. Right lower extremity demonstrates reflux in the greater saphenous vein measuring 4 mm diameter and reflux duration between 5.6 and 6.2 seconds from proximal to distal. The proximal/mid greater saphenous vein than demonstrates branching pattern to multiple varicosities including varicosities that demonstrate reflux of 7.4 seconds duration. Reflux through the common femoral vein is also identified of approximately 5.7 seconds duration. Left lower extremity demonstrates reflux through the proximal greater saphenous vein measuring 5 mm diameter and 6.2 seconds duration, mid greater saphenous vein measuring 6 mm diameter and reflux duration 6.7 seconds, and distal greater saphenous vein measuring 4 mm diameter and 5.1 seconds duration. Multiple varicosities of the greater saphenous vein are identified including varicosities with reflux at 4.5 seconds duration. Reflux through the common femoral vein at 4.2 seconds duration and proximal superficial femoral vein at 1.8 seconds duration also noted. IMPRESSION: 1. No evidence for deep venous thrombosis through the right and left common femoral vein through popliteal veins. Bilateral calf veins could not be assessed due to multiple factors. 2. Bilateral reflux and varicosities as described above. <Electronically signed by Juan Duckworth > 03/29/21 [id number]
== END ==
LOC: M RAD 13:03
PROVIDERS: ATTEND Radiology Diagnostic Radiology
DX: I87.2 Venous insufficiency (chronic) (peripheral) (principal); I83.011 Varicose veins of right lower extremity with ulcer of thigh; I83.012 Varicose veins of right lower extremity with ulcer of calf; E11.9 Type 2 diabetes mellitus without complications

== ENCOUNTER → 2021-03-29 | Outpatient (REF) | payer MEDICARE, MEDICAID ==
[2021-03-29 17:34] LABS: CREATININE, URINE < 13.0 MG/DL; MALB URINE SIEMENS 5.5 MG/L
== END ==
LOC: SKLAB5 07:22
DX: E11.9 Type 2 diabetes mellitus without complications (principal)

== ENCOUNTER → 2021-03-31 | Outpatient (REF) | payer MEDICARE, MEDICAID ==
[2021-03-31 13:51] LABS: BASO % 0.5 % (0.0-1.0); EOS # 0.3 10^3/uL (0.0-0.5); EOS % 3.5 % (0.0-3.0); HEMATOCRIT 35.8 % (36.0-47.0); HEMOGLOBIN 10.8 g/dl (12.0-15.5); LYMPH # 1.7 10^3/uL (1.5-5.0); LYMPH % 22.8 % (24.0-44.0); MEAN CORPUSCULAR HEMOGLOBIN 23.9 pg (27.0-33.0); MEAN CORPUSCULAR HGB CONC 30.2 g/dl (32.0-36.5); MEAN CORPUSCULAR VOLUME 79.2 fl (80.0-96.0); MONO # 0.6 10^3/uL (0.0-0.8); MONO % 8.1 % (2.0-8.0); NEUTROPHILS # 4.8 10^3/uL (1.5-8.5); NEUTROPHILS % 64.8 % (36.0-66.0); PLATELET COUNT, AUTOMATED 185 10^3/uL (150-450); RED BLOOD COUNT 4.52 10^6/uL (4.00-5.40); WHITE BLOOD COUNT 7.4 10^3/uL (4.0-10.0)
== END ==
LOC: SKLAB5 10:26
DX: K11.20 Sialoadenitis, unspecified (principal)

== ENCOUNTER → 2021-03-31 | Outpatient (CLI) | payer MEDICARE, MEDICAID ==
[~2021-03-31] MED LIST changes: +ISOVUE-370 76% 100ML VIAL As Ordered ONE
--- NOTE | 2021-03-31 12:49 | REP ---
INDICATION: ABS MASSERTITIS / W/ LT SUBMANDIBULAR PAIN SWELLIN. History of left masseter muscle abscess and parotitis. Developed left submandibular pain and swelling. COMPARISON: Comparison is made with prior CT studies of the maxillofacial region and neck dated October 14, 2020, July 30, 2020, and July 28, 2020.. TECHNIQUE: Helical scanning is acquired following the intravenous injection of 75 mL of Isovue 370. 3 mm axial images re-formatted. Coronal and sagittal MPR images are provided. FINDINGS: The previously noted fibrotic tract between the left masseter muscle and the overlying dermis is again seen essentially unchanged from the most recent prior study of October 14 2020. The previously noted masseter muscle collection and is no longer apparent. Parotid glands are normal and symmetric. The submandibular glands are normal in size and symmetric as well. No inflammatory changes are noted in the lower neck or submandibular region. Thyroid lobes are unremarkable. No vascular abnormality is seen. There is no evidence of adenopathy. The patient is edentulous. The paranasal sinuses are clear. No intraorbital lesion is seen. The visualized intracranial structures are unremarkable. IMPRESSION: There is a curvilinear area of fibrosis extending between the left lateral skin and the underlying left posterior masseter muscle. No collection is seen. This is unchanged from the most recent prior study of 14 October 2020. No new inflammatory changes are seen. <Electronically signed by Javier Dorsey > 03/31/21 [id number]
== END ==
LOC: M RAD 11:27
PROVIDERS: ATTEND Nurse Practitioner Family
DX: K13.79 Other lesions of oral mucosa (principal)
CPT/HCPCS: 70487; Q9967

== ENCOUNTER → 2021-04-09 | Outpatient (REF) | payer MEDICARE, MEDICAID ==
[~2021-04-09] MED LIST changes: +BUSP5TA PO; +FERR324T21 PO; -ISOVUE-370 76% 100ML VIAL As Ordered ONE; +KAOP262S PO; +LISI-898 PO; +NEOM500T PO; +SENN-80 PO; +TRUL10IN SC; +[UNRECOGNIZED DRUG - CODE] PO
[2021-04-09 08:15] LABS: HEMATOCRIT 35.8 % (36.0-47.0); HEMOGLOBIN 11.1 g/dl (12.0-15.5); MEAN CORPUSCULAR HEMOGLOBIN 24.4 pg (27.0-33.0); MEAN CORPUSCULAR VOLUME 78.9 fl (80.0-96.0); PLATELET COUNT, AUTOMATED 206 10^3/uL (150-450); RED BLOOD COUNT 4.54 10^6/uL (4.00-5.40); WHITE BLOOD COUNT 8.1 10^3/uL (4.0-10.0)
== END ==
LOC: SKLAB5 10:33
DX: I73.9 Peripheral vascular disease, unspecified (principal)

== ENCOUNTER → 2021-04-10 | Outpatient (CLI) | payer MEDICARE, MEDICAID ==
[~2021-04-10] MED LIST changes: +DEXTROSE 50% 50 ML SYRINGE As Ordered ONE; +ISOVUE-300 61% 50ML VIAL As Ordered ONE; +ISOVUE-370 76% 100ML VIAL As Ordered ONE; +LIDOCAINE 1% MDV 20ML VIAL As Ordered ONE; +MIDAZOLAM INJ 2MG/2ML VIAL (J2250 PER 1MG) As Ordered ONE; +NS 1,000 ML IV SCH; +diphenhydrAMINE 50MG/ML VIAL (J1200) As Ordered ONE; +fentaNYL 100 MCG/2 ML INJECTION (J3010) As Ordered ONE
[2021-04-10 08:33] LABS: HEMOGLOBIN 11.2 g/dl (12.0-15.5); MEAN CORPUSCULAR HEMOGLOBIN 23.9 pg (27.0-33.0); MEAN CORPUSCULAR HGB CONC 30.3 g/dl (32.0-36.5); MEAN CORPUSCULAR VOLUME 78.9 fl (80.0-96.0); PLATELET COUNT, AUTOMATED 210 10^3/uL (150-450); RED BLOOD COUNT 4.69 10^6/uL (4.00-5.40)
--- NOTE | 2021-04-10 08:35 | IRHP ---
[facility] IR Pre-Procedure H & P General Procedure: Same Day Surgery Interval History and Physical I have seen the patient and reviewed last H & P performed within 30 days. There is no significant interval change. History of Present Illness Chief Complaint The patient is a 65-year-old female admitted with a reason for visit of Lt Leg Pad. PRE-PROCEDURE DIAGNOSIS: PAD HEART: normal rate. LUNGS: normal breathing at rest. ASA Classification ASA Classification: III-Severe systemic dis. Mallampati Score: II NPO: Yes Problems with prior sedation: No Obstructive Sleep Apnea: No Plan moderate sedation Allergies Coded Allergies: Penicillins (Verified Allergy, Intermediate, HIVES, 07/27/19) Quinolones (Verified Allergy, Intermediate, HIVES, 07/08/20) ibuprofen (Verified Allergy, Mild, RASH, 07/08/20) Home Medications Scheduled Aluminum/Magnesium/Simeth (Mag-Al Plus Suspension), 30 ML PO AC, (Reported) Aspirin (Aspirin), 81 MG PO DAILY, (Reported) Atorvastatin Calcium (Atorvastatin Calcium), 40 MG PO DAILY, (Reported) Buprenorphine (Butrans), 1 PATCH TOP QWEEK, (Reported) Duloxetine Hcl (Cymbalta), 30 MG PO BID, (Reported) Gabapentin (Gabapentin), 300 MG PO TID, (Reported) Insulin Glargine (Lantus), 60 UNITS SC DAILY, (Reported) Insulin Glargine (Lantus), 55 UNITS SC QHS, (Reported) L.acidoph/L.bulg/B.bif/S.therm (Leny-Bid Caplet), 1 EA PO WM Levothyroxine Sodium (Levoxyl), 50 MCG PO DAILY, (Reported) Omeprazole (Omeprazole), 40 MG PO DAILY, (Reported) Potassium Chloride (Potassium Chloride), 10 MEQ PO TID, (Reported) Propranolol HCl (Propranolol HCl), 20 MG PO BID, (Reported) Rifaximin (Xifaxan), 550 MG PO BID, (Reported) Spironolactone (Spironolactone), 50 MG PO BID, (Reported) Sulfamethoxazole/Trimethoprim (Sulfamethoxazole-Tmp Ds Tablet), 1 TAB PO BID Tiotropium [place] (Spiriva), 1 INHALATION INH DAILY, (Reported) Torsemide (Torsemide), 10 MG PO BID, (Reported) Scheduled PRN Acetaminophen (Tylenol), 650 MG PO Q4H PRN for PAIN / FEVER, (Reported) Albuterol Sulf (Albuterol Sulfate), 2.5 MG INH Q2H PRN for SOB/WHEEZING, (Rep orted) Bisacodyl (Dulcolax), 10 MG MS DAILY PRN for CONSTIPATION, (Reported) Diphenhydramine HCl (Diphenhydramine HCl), 25 MG PO Q6H PRN for ITCHING, (Reported) Eucalyptus/Menthol (Cough Drops), 1 LOZENGE MT Q1H PRN for COUGH, (Reported) Hydroxyzine Pamoate (Hydroxyzine Pamoate), 25 MG PO QID PRN for ANXIETY, (Reported) Menthol (Biofreeze), 1 DOSE EXT Q4H PRN for PAIN, (Reported) Milk Of Magnesia (Milk of Magnesia), 10 ML PO DAILY PRN for CONSTIPATION, (Reported) Ondansetron HCl (Zofran), 4 MG PO Q6H PRN for NAUSEA, (Reported) Oxycodone HCl (Oxycodone HCl), 10 MG PO Q4H PRN for PAIN LEVEL 7-10, (Reported) Sodium Phosphate,[place]-Dibasic (Enema), 1 EMANUEL MS DAILY PRN for CONSTIPATION, (Reported) VS, I&O, 24H, Fishbone Vital Signs/I&O Vital Signs Date Time Temp Pulse Resp B/P (MAP) Pulse Ox O2 Delivery O2 Flow Rate FiO2 04/10/21 07:58 97.8 80 18 96 Room Air Laboratory Data 24H LABS Laboratory Tests 2 04/10/21 08:13: Nucleated Red Blood Cells % (auto) 0.0 CBC/BMP Laboratory Tests 04/10/21 08:13 VETO ORDOÑEZ MD Apr 10, 2021 08:35
[2021-04-10 09:03] LABS: CALCIUM LEVEL 9.5 MG/DL (8.8-10.2); CREATININE FOR GFR 1.35 MG/DL (0.55-1.30); GLOMERULAR FILTRATION RATE 41.8 (>45); POTASSIUM SERUM 3.7 MEQ/L (3.5-5.1)
[2021-04-10 13:40] VITALS: BP 112/64
--- NOTE | 2021-04-10 15:58 | REP ---
INDICATION: WITH CONTRACT, BILATERAL LOWER EXT RUN OFF. COMPARISON: None. TECHNIQUE: Helical scanning is acquired following the intravenous injection of I did aided contrast, 100 mL of intravenous Isovue 370. I am informed that the IV site in the antecubital fossa limited the flow rate and pressure in the pressure injection. As a result, intravascular arterial labeling is rather poor on this post-contrast study. A different IV site was utilized for the last 45 cc of contrast in the study was attempted to be Ree acquired but this acquisition shows suboptimal contrast labeling as well. 3 mm axial images are re-formatted. Coronal and sagittal MPR and coronal MIP images are generated. 3D imaging could not be rendered due to poor contrast opacification. FINDINGS: As above, for technical reasons, there is poor intravascular opacification of the arterial tree. There is some atherosclerotic calcification of the suprarenal and infrarenal abdominal aorta which is normal in caliber. There is edema surrounding the common femoral and proximal superficial femoral artery consistent with puncture site. There is a prominent venous collateral vessel coursing from the common femoral vein through the hypogastric vein to the umbilical vein and from there into the liver, this raises the question of portal hypertension. There are few lymph nodes in the right groin and left groin. [place] artifact from right hip orthopedic pinning further limits visualization of the lumen of the right femoral veins. No aneurysm is seen. In the calves there is bilateral venous opacification on the repeat CT acquisition due to the IV site issues. IMPRESSION: Suboptimal contrast opacification of the arterial tree due to difficulties with the IV site. <Electronically signed by Javier Dorsey > 04/10/21 [id number]
--- NOTE | 2021-04-12 09:37 | IRPON ---
IR Postoperative Note Date Of Procedure: Apr 10, 2021 Time Of Procedure: 16:00 IR Postoperative Note IR Ultrasound-guided right common femoral artery access. IR Attempted left lower extremity angiogram. IR Right SFA angiogram IR Moderate sedation. Clinical Information:Nonhealing bilateral left greater than right lower extremity wounds. Physician: Dr. Horton. Procedure: The patient was advised of the benefits, risks, and alternatives of the procedure and informed consent was obtained. A time out was performed with verification of the patient's name, MRN, site of procedure, and type of procedure to be performed. The patient was positioned in the supine position on the angiographic table. The site was prepped and draped in the usual sterile fashion. Moderate sedation was performed by the physician including the presence of an independent trained RN, who assisted in monitoring the patient's level of consciousness and physiological status. Following the administration of fentanyl and Versed, the physician spent 45 minutes of continuous [id number] time with the patient. A thread dresser radiograph reveals hardware in the right hip. Ultrasound of the right groin demonstrates significant pannus and adipose tissue. The pannus was retracted using a retraction system. Repeat ultrasound of the right groin demonstrates the common femoral artery is too high and deep due to overlying pannus. Lidocaine was used for local anesthesia. Under ultrasound guidance, micropuncture needle was used to try to access the right common femoral artery, however the needle was not long enough. Repeat attempt was made to try to access the right common femoral artery in a steep fashion. An angiogram was performed and this demonstrates access of the right superficial femoral artery and unsuccessful access of the right common femoral artery. The proximal and mid right superficial femoral artery and profunda femoris is patent. Superficial femoral artery access and upsize is not suitable for percutaneous left lower extremity angiography and/or intervention due to risk of ps eudoaneurysm and hematoma. The needle was removed, pressure held and hemostasis achieved. A sterile dressing was applied to the site. The patient tolerated the procedure well and was returned to the PRU in stable condition. EBL: < 5 mL. Complications:None. Impression: 1. Unable to access right common femoral artery due to significant overlying adipose tissue and pannus, despite retraction of pannus and steep percutaneous angle of access. 2. I'll obtain a CTA with bilateral lower extremity runoff to evaluate the extent of her arterial disease. She may then need a cut down for further intervention. Thank you for this referral. Cc VETO Lang MD Apr 12, 2021 09:37
== END ==
LOC: M IRPRO 07:48
PROVIDERS: ATTEND Radiology Diagnostic Radiology
DX: I70.239 Atherosclerosis of native arteries of right leg with ulceration of unspecified site (principal); E65 Localized adiposity; Z79.4 Long term (current) use of insulin; Z79.82 Long term (current) use of aspirin; Z79.899 Other long term (current) drug therapy; Z88.0 Allergy status to penicillin; Z88.1 Allergy status to other antibiotic agents; Z88.6 Allergy status to analgesic agent

== ENCOUNTER → 2021-04-13 | Outpatient (CLI) | payer MEDICARE, MEDICAID ==
[~2021-04-13] MED LIST changes: -DEXTROSE 50% 50 ML SYRINGE As Ordered ONE; -ISOVUE-300 61% 50ML VIAL As Ordered ONE; -LIDOCAINE 1% MDV 20ML VIAL As Ordered ONE; -MIDAZOLAM INJ 2MG/2ML VIAL (J2250 PER 1MG) As Ordered ONE; -NS 1,000 ML IV SCH; -diphenhydrAMINE 50MG/ML VIAL (J1200) As Ordered ONE; -fentaNYL 100 MCG/2 ML INJECTION (J3010) As Ordered ONE
--- NOTE | 2021-04-13 15:30 | REP ---
INDICATION: PAD. COMPARISON: CT angio 04/10/2021 (technically suboptimal) TECHNIQUE: Bolus of 100 mL Isovue 370 with axial imaging from the lower chest through the feet. Coronal and sagittal reconstructions, curved reformats, 3D MIP reformats are performed according to our CT angio abdominal aorta and runoff protocol. Orthopedic metal artifact reduction algorithm was utilized due to right hip ORIF. FINDINGS: Vascular: Abdominal aorta shows some atherosclerotic calcification. There is no aneurysm or dissection. Takeoff of the celiac axis and SMA appears without significant stenosis. Some minor plaque in the proximal SMA but without significant stenosis. Atherosclerotic plaque at the origin of the right main renal artery noted without significant stenosis. Left main renal artery unremarkable. The aortic bifurcation and proximal common iliac arteries are without significant stenosis. The external iliac arteries appear symmetric and without significant stenosis or aneurysm. Takeoffs of the internal iliac arteries show some atherosclerotic plaque but no significant stenosis or aneurysm. Lower extremity runoff: Right lower extremity shows the common femoral artery with some minor plaque. Superficial femoral artery shows some scattered plaque proximally without tight stenosis. The profunda was also intact. Course of the SFA through the thigh showed some scattered small areas of plaque and mild stenosis without vessel cut off or aneurysm. The distal SFA and popliteal artery as well as tibioperoneal trunk grossly intact. A runoff arteriogram on the calf when viewed on the axial source images show the posterior and anterior tibial vessels reaching the ankle and the peroneal artery disappears at the ankle joint. Left lower extremity shows a common femoral with minimal plaque takeoff of the profunda femoral artery, also intact. I do not see significant stenosis proximal SFA. Mid SFA has some scattered plaque, minimal stenosis. Mild stenosis distally in the SFA. The popliteal artery was grossly intact. Tibioperoneal trunk shows some mild atherosclerotic plaque and stenosis. The anterior and posterior tibial and peroneal arteries are seen in the calf. Both tibial arteries reach the ankle and the peroneal artery disappears at the level of the ankle. Nonvascular: CT abdomen pelvis: Lung bases show fibrotic and atelectatic changes in lower lung zones no effusion or dense consolidation. Liver is not enlarged. No focal hepatic mass. Hepatic contour slightly lobulated. Spleen appears mildly prominent. There is no focal splenic lesion or ascites. Small hiatal hernia. Gallbladder surgically absent. Adrenal glands normal. Pancreas without mass or adjacent inflammatory change. Kidneys show no hydronephrosis or stone. Few small periaortic and mesenteric nodes are seen without pathologic sized retroperitoneal or mesenteric lymphadenopathy. Small bowel loops and colon are without acute inflammatory process. There is recanalization of the umbilical vein consistent with chronic liver disease. Bladder shows no mass, wall thickening or stone. Uterus absent. The vaginal cuff intact. Some scattered diverticula in the colon without diverticulitis in the pelvis. No pelvic mass or free fluid. No adnexal mass or lymphadenopathy. No ventral or inguinal hernia. Some nodes at the inguinal regions but also vascular channels. Bones show degenerative changes in the lower lumbar spine. There is an intramedullary chandra and blade paddle device from prior ORIF right hip. Hip joint spaces show some degenerative changes. Pelvis without acute finding. Lower extremity. Soft tissues of the lower legs show subcutaneous edema from the knee to the foot bilaterally in a symmetric fashion. IMPRESSION: 1. The abdominal aorta without aneurysm or dissection. Some mild stenosis of the SMA distal to its takeoff with no origin stenosis for SMA or celiac axis and mild plaque at the origin of the right main renal artery. The common femoral arteries up through to the common iliac arteries show no significant stenosis or aneurysm. 2. Bilateral runoff arteriography shows scattered plaques with mild stenosis only in SFA without vessel cut off or occlusion. The runoff to the calves on both sides with 2 vessels reaching below the ankle as the right and left sided anterior and posterior tibial arteries. 3. Abdominopelvic CT shows evidence of chronic liver disease. There is no other significant or acute finding. <Electronically signed by Mike Richter > 04/13/21 [id number]
== END ==
LOC: M RAD 13:34
PROVIDERS: ATTEND Radiology Diagnostic Radiology
DX: I73.9 Peripheral vascular disease, unspecified (principal); I71.4 Abdominal aortic aneurysm, without rupture; D64.9 Anemia, unspecified
CPT/HCPCS: 36415; 75635; 80048; 83550; Q9967

== ENCOUNTER → 2021-04-13 | Outpatient (REF) | payer MEDICARE, MEDICAID ==
[~2021-04-13] MED LIST changes: -ISOVUE-370 76% 100ML VIAL As Ordered ONE
[2021-04-13 11:36] LABS: CALCIUM LEVEL 8.7 MG/DL (8.8-10.2); CREATININE FOR GFR 1.27 MG/DL (0.55-1.30); GLOMERULAR FILTRATION RATE 44.8 (>45); PERCENT SATURATION 12.2 % (13.2-45.0); POTASSIUM SERUM 3.2 MEQ/L (3.5-5.1)
== END ==
LOC: SKLAB5 08:59
DX: D64.9 Anemia, unspecified (principal)

== ENCOUNTER → 2021-04-27 | Outpatient (REF) | payer MEDICARE, MEDICAID ==
[2021-04-27 11:40] LABS: HEMATOCRIT 34.3 % (36.0-47.0); HEMOGLOBIN 10.5 g/dl (12.0-15.5); MEAN CORPUSCULAR HEMOGLOBIN 24.4 pg (27.0-33.0); MEAN CORPUSCULAR HGB CONC 30.6 g/dl (32.0-36.5); MEAN CORPUSCULAR VOLUME 79.8 fl (80.0-96.0); PLATELET COUNT, AUTOMATED 187 10^3/uL (150-450); WHITE BLOOD COUNT 5.3 10^3/uL (4.0-10.0)
[2021-04-27 12:15] LABS: ALBUMIN 2.5 GM/DL (3.2-5.2); BILIRUBIN,TOTAL 0.4 MG/DL (0.2-1.0); CALCIUM LEVEL 8.6 MG/DL (8.8-10.2); CREATININE FOR GFR 1.69 MG/DL (0.55-1.30); GLOMERULAR FILTRATION RATE 32.2 (>45); MAGNESIUM LEVEL 1.9 MG/DL (1.8-2.4); POTASSIUM SERUM 3.5 MEQ/L (3.5-5.1); TOTAL PROTEIN 6.3 GM/DL (6.4-8.2)
[2021-04-27 12:18] LABS: HEMOGLOBIN A1c 6.4 %
== END ==
LOC: SKLAB5 09:13
DX: E87.6 Hypokalemia (principal); Z79.899 Other long term (current) drug therapy

== ENCOUNTER → 2021-05-25 | Outpatient (REF) | payer MEDICARE, MEDICAID ==
[~2021-05-25] MED LIST changes: -CLIN150C15 PO; +CLIN150C17 PO; +DOK1CAP4 PO; -DOK1CAP7 PO; -DOXY100C PO; +DOXY100C3 PO
== END ==
LOC: SKLAB5 06:00
PROVIDERS: ATTEND Internal Medicine
DX: E03.9 Hypothyroidism, unspecified (principal)

== ENCOUNTER → 2021-06-05 | Outpatient (REF) | payer MEDICARE, MEDICAID ==
[~2021-06-05] MED LIST changes: -KLOR10TA76 PO; -KLOR20TA42 PO; +POTA-136 PO; +POTA-141 PO; -VERA120T4 PO; +VERA120T77 PO
[2021-06-05 12:47] LABS: CREATININE FOR GFR 1.37 MG/DL (0.55-1.30); GLOMERULAR FILTRATION RATE 41.1 (>45); POTASSIUM SERUM 3.1 MEQ/L (3.5-5.1)
== END ==
LOC: SKLAB5 12:52
PROVIDERS: ATTEND Internal Medicine
DX: R60.9 Edema, unspecified (principal)

== ENCOUNTER → 2021-06-08 | Outpatient (REF) | payer MEDICARE, MEDICAID ==
[2021-06-08 11:01] LABS: ALBUMIN 2.4 GM/DL (3.2-5.2); BILIRUBIN,TOTAL 0.4 MG/DL (0.2-1.0); CALCIUM LEVEL 8.1 MG/DL (8.8-10.2); CREATININE FOR GFR 1.39 MG/DL (0.55-1.30); GLOMERULAR FILTRATION RATE 40.4 (>45); POTASSIUM SERUM 3.4 MEQ/L (3.5-5.1); THYROID STIMULATING HORMONE 1.99 uIU/ML (0.358-3.740); TOTAL PROTEIN 6.6 GM/DL (6.4-8.2)
== END ==
LOC: SKLAB5 08:35
PROVIDERS: ATTEND Internal Medicine
DX: N18.9 Chronic kidney disease, unspecified (principal); K74.60 Unspecified cirrhosis of liver; R60.0 Localized edema

== ENCOUNTER → 2021-07-11 | Outpatient (REF) | payer MEDICARE, MEDICAID ==
[~2021-07-11] MED LIST changes: +VERA120T71 PO; -VERA120T77 PO
== END ==
LOC: SKLAB5 10:41
PROVIDERS: ATTEND Internal Medicine
DX: Z20.822 Contact with and (suspected) exposure to COVID-19 (principal)

== ENCOUNTER → 2021-07-13 | Outpatient (REF) | payer MEDICARE, MEDICAID | LOC: SKLAB5 09:26 | PROVIDERS: ATTEND Internal Medicine | DX: Z20.822 Contact with and (suspected) exposure to COVID-19 (principal) ==

== ENCOUNTER → 2021-07-17 | Outpatient (REF) | payer MEDICARE, MEDICAID | LOC: SKLAB5 06:19 | PROVIDERS: ATTEND Internal Medicine | DX: Z20.822 Contact with and (suspected) exposure to COVID-19 (principal) ==

== ENCOUNTER → 2021-07-20 | Outpatient (REF) | payer MEDICARE, MEDICAID | LOC: SKLAB5 06:16 | PROVIDERS: ATTEND Internal Medicine | DX: Z20.822 Contact with and (suspected) exposure to COVID-19 (principal) ==

== ENCOUNTER → 2021-07-24 | Outpatient (REF) | payer MEDICARE, MEDICAID | LOC: SKLAB5 05:35 | PROVIDERS: ATTEND Internal Medicine | DX: Z20.822 Contact with and (suspected) exposure to COVID-19 (principal) ==

== ENCOUNTER → 2021-07-27 | Outpatient (REF) | payer MEDICARE, MEDICAID | LOC: SKLAB5 10:56 | PROVIDERS: ATTEND Internal Medicine | DX: Z20.822 Contact with and (suspected) exposure to COVID-19 (principal) ==

== ENCOUNTER → 2021-07-27 | Outpatient (REF) | payer MEDICARE, MEDICAID ==
[2021-07-27 11:18] LABS: HEMATOCRIT 35.3 % (36.0-47.0); HEMOGLOBIN 11.4 g/dl (12.0-15.5); MEAN CORPUSCULAR HEMOGLOBIN 28.6 pg (27.0-33.0); MEAN CORPUSCULAR HGB CONC 32.3 g/dl (32.0-36.5); MEAN CORPUSCULAR VOLUME 88.5 fl (80.0-96.0); PLATELET COUNT, AUTOMATED 152 10^3/uL (150-450); RED BLOOD COUNT 3.99 10^6/uL (4.00-5.40); WHITE BLOOD COUNT 5.1 10^3/uL (4.0-10.0)
[2021-07-27 11:40] LABS: ALBUMIN 2.9 GM/DL (3.2-5.2); BILIRUBIN,TOTAL 0.5 MG/DL (0.2-1.0); CALCIUM LEVEL 9.3 MG/DL (8.8-10.2); CREATININE FOR GFR 1.48 MG/DL (0.55-1.30); GLOMERULAR FILTRATION RATE 37.6 (>45); MAGNESIUM LEVEL 1.9 MG/DL (1.8-2.4); POTASSIUM SERUM 3.6 MEQ/L (3.5-5.1); TOTAL PROTEIN 8.3 GM/DL (6.4-8.2)
== END ==
LOC: SKLAB5 10:57
PROVIDERS: ATTEND Internal Medicine
DX: N18.9 Chronic kidney disease, unspecified (principal)

== ENCOUNTER → 2021-08-02 | Outpatient (REF) | payer MEDICARE, MEDICAID | LOC: SKLAB5 13:33 | PROVIDERS: ATTEND Internal Medicine | DX: Z20.822 Contact with and (suspected) exposure to COVID-19 (principal) ==

== ENCOUNTER → 2021-08-09 | Outpatient (REF) | payer MEDICARE, MEDICAID | LOC: SKLAB5 07:54 | PROVIDERS: ATTEND Internal Medicine | DX: Z20.822 Contact with and (suspected) exposure to COVID-19 (principal) ==

== ENCOUNTER → 2021-08-29 | Outpatient (REF) | payer MEDICARE, MEDICAID ==
[~2021-08-29] MED LIST changes: +CETI-25 PO; -CETI10TA8 PO; -FLUC100T; +FLUC100T3; +FLUO-96 PO; -FLUO10CA16 PO; +FLUO10CA18 PO; -FLUO20CA20 PO; -LISI-898 PO; +LISI5TAB11 PO; +OMEP-173 PO; -OMEP-218 PO; -OMEP-221 PO; +OMEP40CA5 PO; +TIZA10TA PO; -TIZA4TAB4 PO
== END ==
LOC: SKLAB5 10:56
PROVIDERS: ATTEND Internal Medicine
DX: Z20.822 Contact with and (suspected) exposure to COVID-19 (principal)

== ENCOUNTER → 2021-09-06 | Outpatient (REF) | payer MEDICARE, MEDICAID ==
[~2021-09-06] MED LIST changes: -CETI-25 PO; +CETI10TA8 PO; +FLUC100T; -FLUC100T3; -FLUO-96 PO; +FLUO10CA16 PO; -FLUO10CA18 PO; +FLUO20CA20 PO; +LISI-898 PO; -LISI5TAB11 PO; -OMEP-173 PO; +OMEP-218 PO; +OMEP-221 PO; -OMEP40CA5 PO; -TIZA10TA PO; +TIZA4TAB4 PO
== END ==
LOC: SKLAB5 13:46
PROVIDERS: ATTEND Internal Medicine
DX: Z20.822 Contact with and (suspected) exposure to COVID-19 (principal)

== ENCOUNTER → 2021-09-06 | Outpatient (REF) | payer MEDICARE, MEDICAID ==
[2021-09-06 10:20] LABS: HEMATOCRIT 37.2 % (36.0-47.0); HEMOGLOBIN 11.8 g/dl (12.0-15.5); MEAN CORPUSCULAR HEMOGLOBIN 29.1 pg (27.0-33.0); MEAN CORPUSCULAR HGB CONC 31.7 g/dl (32.0-36.5); MEAN CORPUSCULAR VOLUME 91.9 fl (80.0-96.0); PLATELET COUNT, AUTOMATED 146 10^3/uL (150-450); RED BLOOD COUNT 4.05 10^6/uL (4.00-5.40); WHITE BLOOD COUNT 5.1 10^3/uL (4.0-10.0)
[2021-09-06 10:46] LABS: CALCIUM LEVEL 8.7 MG/DL (8.8-10.2); CREATININE FOR GFR 1.44 MG/DL (0.55-1.30); GLOMERULAR FILTRATION RATE 38.8 (>45); POTASSIUM SERUM 3.5 MEQ/L (3.5-5.1); THYROID STIMULATING HORMONE 1.12 uIU/ML (0.358-3.740)
== END ==
LOC: SKLAB5 07:29
PROVIDERS: ATTEND Internal Medicine
DX: K74.60 Unspecified cirrhosis of liver (principal); F32.A Depression, unspecified; M62.830 Muscle spasm of back; N18.9 Chronic kidney disease, unspecified; Z20.822 Contact with and (suspected) exposure to COVID-19
CPT/HCPCS: 36415; 80048; 84443; 85027; U0002

== ENCOUNTER → 2021-09-13 | Outpatient (REF) | payer MEDICARE, MEDICAID | LOC: SKLAB5 14:33 | PROVIDERS: ATTEND Internal Medicine | DX: Z20.822 Contact with and (suspected) exposure to COVID-19 (principal) ==

== ENCOUNTER → 2021-09-19 | Outpatient (REF) | payer MEDICARE, MEDICAID ==
[~2021-09-19] MED LIST changes: +CETI-25 PO; -CETI10TA8 PO; -FLUC100T; +FLUC100T3; +FLUO-96 PO; -FLUO10CA16 PO; +FLUO10CA18 PO; -FLUO20CA20 PO; -LISI-898 PO; +LISI5TAB11 PO; +OMEP-173 PO; -OMEP-218 PO; -OMEP-221 PO; +OMEP40CA5 PO; +TIZA10TA PO; -TIZA4TAB4 PO
== END ==
LOC: SKLAB5 09:54
PROVIDERS: ATTEND Internal Medicine
DX: Z20.822 Contact with and (suspected) exposure to COVID-19 (principal)

== ENCOUNTER → 2021-09-20 | Outpatient (REF) | payer MEDICARE, MEDICAID ==
[~2021-09-20] MED LIST changes: -CETI-25 PO; +CETI10TA8 PO; +FLUC100T; -FLUC100T3; -FLUO-96 PO; +FLUO10CA16 PO; -FLUO10CA18 PO; +FLUO20CA20 PO; +LISI-898 PO; -LISI5TAB11 PO; -OMEP-173 PO; +OMEP-218 PO; +OMEP-221 PO; -OMEP40CA5 PO; -TIZA10TA PO; +TIZA4TAB4 PO
== END ==
LOC: SKLAB5 11:39
PROVIDERS: ATTEND Internal Medicine
DX: Z20.822 Contact with and (suspected) exposure to COVID-19 (principal)

== ENCOUNTER → 2021-09-27 | Outpatient (REF) | payer MEDICARE, MEDICAID ==
[~2021-09-27] MED LIST changes: +CETI-25 PO; -CETI10TA8 PO; +FLUO-96 PO; -FLUO10CA16 PO; +FLUO10CA18 PO; -FLUO20CA20 PO; -LISI-898 PO; +LISI5TAB11 PO; +OMEP-173 PO; -OMEP-218 PO; -OMEP-221 PO; +OMEP40CA5 PO; +TIZA10TA PO; -TIZA4TAB4 PO
== END ==
LOC: SKLAB5 06:32
PROVIDERS: ATTEND Internal Medicine
DX: Z20.822 Contact with and (suspected) exposure to COVID-19 (principal)

== ENCOUNTER → 2021-10-16 | Outpatient (REF) | payer MEDICARE, MEDICAID ==
[2021-10-16 15:51] LABS: HEMATOCRIT 37.5 % (36.0-47.0); HEMOGLOBIN 11.9 g/dl (12.0-15.5); MEAN CORPUSCULAR HEMOGLOBIN 29.2 pg (27.0-33.0); MEAN CORPUSCULAR HGB CONC 31.7 g/dl (32.0-36.5); MEAN CORPUSCULAR VOLUME 91.9 fl (80.0-96.0); PLATELET COUNT, AUTOMATED 121 10^3/uL (150-450); RED BLOOD COUNT 4.08 10^6/uL (4.00-5.40); WHITE BLOOD COUNT 6.6 10^3/uL (4.0-10.0)
[2021-10-16 16:13] LABS: CALCIUM LEVEL 9.1 MG/DL (8.8-10.2); CREATININE FOR GFR 1.23 MG/DL (0.55-1.30); GLOMERULAR FILTRATION RATE 46.4 (>45); POTASSIUM SERUM 3.9 MEQ/L (3.5-5.1)
== END ==
LOC: SKLAB5 13:33
PROVIDERS: ATTEND Internal Medicine
DX: R06.02 Shortness of breath (principal); M25.552 Pain in left hip

== ENCOUNTER → 2021-11-06 | Outpatient (REF) | payer MEDICARE, MEDICAID ==
[~2021-11-06] MED LIST changes: -FLUC100T; +FLUC100T3
[2021-11-06 16:20] LABS: HEMATOCRIT 42.2 % (36.0-47.0); HEMOGLOBIN 13.4 g/dl (12.0-15.5); MEAN CORPUSCULAR HEMOGLOBIN 28.9 pg (27.0-33.0); MEAN CORPUSCULAR HGB CONC 31.8 g/dl (32.0-36.5); MEAN CORPUSCULAR VOLUME 91.1 fl (80.0-96.0); PLATELET COUNT, AUTOMATED 174 10^3/uL (150-450); RED BLOOD COUNT 4.63 10^6/uL (4.00-5.40); WHITE BLOOD COUNT 7.8 10^3/uL (4.0-10.0)
[2021-11-06 16:42] LABS: CALCIUM LEVEL 9.4 MG/DL (8.8-10.2); CREATININE FOR GFR 1.65 MG/DL (0.55-1.30); POTASSIUM SERUM 4.3 MEQ/L (3.5-5.1)
== END ==
LOC: SKLAB5 15:01
PROVIDERS: ATTEND Internal Medicine
DX: J98.11 Atelectasis (principal); R06.02 Shortness of breath

== ENCOUNTER → 2021-11-13 | Outpatient (REF) | payer MEDICARE, MEDICAID | LOC: SKLAB5 08:06 | PROVIDERS: ATTEND Internal Medicine | DX: M25.512 Pain in left shoulder (principal) ==

== ENCOUNTER → 2021-12-04 | Outpatient (CLI) | payer MEDICARE, MEDICAID | LOC: M RAD 12:11 | PROVIDERS: ATTEND Nurse Practitioner Adult Health | DX: M79.605 Pain in left leg (principal) ==

== ENCOUNTER → 2021-12-07 | Outpatient (REF) | payer MEDICARE, MEDICAID ==
[2021-12-07 11:57] LABS: HEMATOCRIT 34.9 % (36.0-47.0); MEAN CORPUSCULAR HEMOGLOBIN 29.4 pg (27.0-33.0); MEAN CORPUSCULAR HGB CONC 31.5 g/dl (32.0-36.5); MEAN CORPUSCULAR VOLUME 93.3 fl (80.0-96.0); PLATELET COUNT, AUTOMATED 147 10^3/uL (150-450); RED BLOOD COUNT 3.74 10^6/uL (4.00-5.40); WHITE BLOOD COUNT 6.8 10^3/uL (4.0-10.0)
[2021-12-07 12:53] LABS: ALBUMIN 2.3 GM/DL (3.2-5.2); BILIRUBIN,TOTAL 0.5 MG/DL (0.2-1.0); CALCIUM LEVEL 8.3 MG/DL (8.8-10.2); CREATININE FOR GFR 1.52 MG/DL (0.55-1.30); GLOMERULAR FILTRATION RATE 36.3 (>45); POTASSIUM SERUM 4.4 MEQ/L (3.5-5.1); TOTAL PROTEIN 7.5 GM/DL (6.4-8.2)
[2021-12-07 13:20] LABS: PTH INTACT 132.3 PG/ML (18.5-88.0); TOTAL 25(OH) VITAMIN D 47.8 NG/ML (30.0-100.0)
== END ==
LOC: SKLAB5 07:59
PROVIDERS: ATTEND Internal Medicine
DX: I50.9 Heart failure, unspecified (principal); R63.5 Abnormal weight gain; Z13.29 Encounter for screening for other suspected endocrine disorder; Z79.899 Other long term (current) drug therapy

== ENCOUNTER → 2021-12-11 | Outpatient (REF) | payer MEDICARE, MEDICAID ==
[2021-12-11 07:42] LABS: MEAN CORPUSCULAR HEMOGLOBIN 29.5 pg (27.0-33.0); MEAN CORPUSCULAR HGB CONC 31.6 g/dl (32.0-36.5); MEAN CORPUSCULAR VOLUME 93.4 fl (80.0-96.0); PLATELET COUNT, AUTOMATED 219 10^3/uL (150-450); RED BLOOD COUNT 4.07 10^6/uL (4.00-5.40)
[2021-12-11 07:58] LABS: CALCIUM LEVEL 9.1 MG/DL (8.8-10.2); CREATININE FOR GFR 1.43 MG/DL (0.55-1.30); POTASSIUM SERUM 3.4 MEQ/L (3.5-5.1)
== END ==
LOC: SKLAB5 07:00
PROVIDERS: ATTEND Internal Medicine
DX: I50.9 Heart failure, unspecified (principal); N18.9 Chronic kidney disease, unspecified

== ENCOUNTER → 2021-12-12 | Outpatient (POV) | payer MEDICARE, MEDICAID ==
[~2021-12-12] VITALS: Ht 160 cm; Wt 124.5 kg
[2021-12-12 09:50] VITALS: BP 141/90
== END ==
LOC: M IRPOV 09:33
PROVIDERS: ATTEND Radiology Diagnostic Radiology
DX: I87.2 Venous insufficiency (chronic) (peripheral) (principal); R60.0 Localized edema; Z88.0 Allergy status to penicillin; Z88.1 Allergy status to other antibiotic agents; Z88.6 Allergy status to analgesic agent

== ENCOUNTER → 2021-12-13 | Outpatient (CLI) | payer MEDICARE, MEDICAID ==
[~2021-12-13] MED LIST changes: +ISOVUE-300 61% 50ML VIAL As Ordered ONE; +LIDOCAINE 1% MDV 20ML VIAL As Ordered ONE; +TRIAMCINOLONE ACETONIDE SUSP 40 MG/ML VIAL (J3301) As Ordered ONE
== END ==
LOC: M RADPRO 09:17
PROVIDERS: ATTEND Physician Assistant
DX: M16.12 Unilateral primary osteoarthritis, left hip (principal)
CPT/HCPCS: 20610; 77002; J3301; Q9967

== ENCOUNTER → 2021-12-22 | Outpatient (CLI) | payer MEDICARE, MEDICAID ==
[~2021-12-22] MED LIST changes: -ISOVUE-300 61% 50ML VIAL As Ordered ONE; -LIDOCAINE 1% MDV 20ML VIAL As Ordered ONE; -TRIAMCINOLONE ACETONIDE SUSP 40 MG/ML VIAL (J3301) As Ordered ONE
== END ==
LOC: M RAD 11:31
PROVIDERS: ATTEND Radiology Diagnostic Radiology
DX: I83.893 Varicose veins of bilateral lower extremities with other complications (principal)

== ENCOUNTER → 2022-01-04 | Outpatient (REF) | payer MEDICARE, MEDICAID ==
[2022-01-04 11:52] LABS: HEMATOCRIT 35.1 % (36.0-47.0); HEMOGLOBIN 11.4 g/dl (12.0-15.5); MEAN CORPUSCULAR HEMOGLOBIN 30.4 pg (27.0-33.0); MEAN CORPUSCULAR HGB CONC 32.5 g/dl (32.0-36.5); MEAN CORPUSCULAR VOLUME 93.6 fl (80.0-96.0); PLATELET COUNT, AUTOMATED 101 10^3/uL (150-450); RED BLOOD COUNT 3.75 10^6/uL (4.00-5.40); WHITE BLOOD COUNT 7.6 10^3/uL (4.0-10.0)
[2022-01-04 12:07] LABS: APPEARANCE, URINE CLOUDY (CLEAR); BACTERIA, URINE AUTO 1+ (NEGATIVE); BILIRUBIN, URINE AUTO NEGATIVE (NEGATIVE); BLOOD, URINE BLOOD NEGATIVE (NEGATIVE); COLOR, URINE YELLOW (YELLOW); GLUCOSE, URINE (UA) AUTO NEGATIVE (NEGATIVE); KETONE, URINE AUTO NEGATIVE (NEGATIVE); LEUKOCYTE ESTERASE, URINE AUTO 3+ (NEGATIVE); NITRITE, URINE AUTO POSITIVE (NEGATIVE); PROTEIN, URINE AUTO NEGATIVE (NEGATIVE); RBC, URINE AUTO 2 /HPF (0-3); SPECIFIC GRAVITY URINE AUTO 1.011 (1.002-1.035); SQUAMOUS EPITHELIAL CELL UR AU 7 /HPF (0-6); WBC, URINE AUTO 39 /HPF (0-3)
[2022-01-04 12:22] LABS: CALCIUM LEVEL 7.7 MG/DL (8.8-10.2); CREATININE FOR GFR 1.28 MG/DL (0.55-1.30); GLOMERULAR FILTRATION RATE 44.3 (>45); POTASSIUM SERUM 3.9 MEQ/L (3.5-5.1)
[2022-01-04 12:34] LABS: CHOLESTEROL RISK RATIO 1.833 (<5)
== END ==
LOC: SKLAB5 10:29
PROVIDERS: ATTEND Internal Medicine
DX: R50.9 Fever, unspecified (principal); R09.02 Hypoxemia; J84.9 Interstitial pulmonary disease, unspecified; Z79.899 Other long term (current) drug therapy

== ENCOUNTER → 2022-01-08 | Outpatient (REF) | payer MEDICARE, MEDICAID | LOC: SKLAB5 10:07 | PROVIDERS: ATTEND Internal Medicine | DX: Z20.822 Contact with and (suspected) exposure to COVID-19 (principal) ==

== ENCOUNTER → 2022-02-08 | Outpatient (REF) | payer MEDICARE, MEDICAID ==
[2022-02-08 11:21] LABS: HEMATOCRIT 43.2 % (36.0-47.0); HEMOGLOBIN 13.8 g/dl (12.0-15.5); MEAN CORPUSCULAR HEMOGLOBIN 30.6 pg (27.0-33.0); MEAN CORPUSCULAR HGB CONC 31.9 g/dl (32.0-36.5); MEAN CORPUSCULAR VOLUME 95.8 fl (80.0-96.0); PLATELET COUNT, AUTOMATED 172 10^3/uL (150-450); RED BLOOD COUNT 4.51 10^6/uL (4.00-5.40); WHITE BLOOD COUNT 6.8 10^3/uL (4.0-10.0)
[2022-02-08 11:38] LABS: HEMOGLOBIN A1c 8.1 %
[2022-02-08 12:04] LABS: PHOSPHORUS LEVEL 2.7 MG/DL (2.5-4.9)
[2022-02-08 12:13] LABS: PTH INTACT 327.1 PG/ML (18.5-88.0)
[2022-02-08 12:22] LABS: CALCIUM LEVEL 8.5 MG/DL (8.8-10.2); CREATININE FOR GFR 1.25 MG/DL (0.55-1.30); GLOMERULAR FILTRATION RATE 45.5 (>45); POTASSIUM SERUM 3.5 MEQ/L (3.5-5.1); THYROID STIMULATING HORMONE 1.81 uIU/ML (0.358-3.740)
== END ==
LOC: SKLAB5 12:50
PROVIDERS: ATTEND Internal Medicine
DX: E11.22 Type 2 diabetes mellitus with diabetic chronic kidney disease (principal); D64.9 Anemia, unspecified; E03.9 Hypothyroidism, unspecified; Z79.899 Other long term (current) drug therapy

== ENCOUNTER → 2022-02-09 | Outpatient (REF) | payer MEDICARE, MEDICAID | LOC: SKLAB5 10:53 | PROVIDERS: ATTEND Nurse Practitioner Adult Health | DX: Z01.818 Encounter for other preprocedural examination (principal); Z20.822 Contact with and (suspected) exposure to COVID-19 ==

== ENCOUNTER → 2022-02-22 | Outpatient (REF) | payer MEDICARE, MEDICAID ==
[~2022-02-22] MED LIST changes: +ALBU2.5V10 INH
[2022-02-22 13:22] LABS: HEMATOCRIT 41.7 % (36.0-47.0); HEMOGLOBIN 13.6 g/dl (12.0-15.5); MEAN CORPUSCULAR HGB CONC 32.6 g/dl (32.0-36.5); PLATELET COUNT, AUTOMATED 158 10^3/uL (150-450); RED BLOOD COUNT 4.39 10^6/uL (4.00-5.40); WHITE BLOOD COUNT 11.4 10^3/uL (4.0-10.0)
[2022-02-22 13:49] LABS: CALCIUM LEVEL 8.3 MG/DL (8.8-10.2); CREATININE FOR GFR 1.35 MG/DL (0.55-1.30); GLOMERULAR FILTRATION RATE 41.6 (>45); POTASSIUM SERUM 4.4 MEQ/L (3.5-5.1)
[2022-02-22 13:57] LABS: APPEARANCE, URINE CLEAR (CLEAR); BACTERIA, URINE AUTO NEGATIVE (NEGATIVE); BILIRUBIN, URINE AUTO NEGATIVE (NEGATIVE); BLOOD, URINE BLOOD NEGATIVE (NEGATIVE); COLOR, URINE YELLOW (YELLOW); GLUCOSE, URINE (UA) AUTO 1+ mg/dL (NEGATIVE); KETONE, URINE AUTO NEGATIVE (NEGATIVE); LEUKOCYTE ESTERASE, URINE AUTO NEGATIVE (NEGATIVE); NITRITE, URINE AUTO NEGATIVE (NEGATIVE); PROTEIN, URINE AUTO NEGATIVE (NEGATIVE); RBC, URINE AUTO 1 /HPF (0-3); SPECIFIC GRAVITY URINE AUTO 1.012 (1.002-1.035); SQUAMOUS EPITHELIAL CELL UR AU 2 /HPF (0-6); UROBILINOGEN, URINE AUTO 0.2 mg/dL (0.0-2.0); WBC, URINE AUTO 8 /HPF (0-3)
== END ==
LOC: SKLAB5 11:29
PROVIDERS: ATTEND Nurse Practitioner Adult Health
DX: R06.2 Wheezing (principal); R30.0 Dysuria; N18.9 Chronic kidney disease, unspecified

== ENCOUNTER → 2022-02-26 | Outpatient (REF) | payer MEDICARE, MEDICAID ==
[2022-02-26 09:23] LABS: HEMATOCRIT 42.5 % (36.0-47.0); HEMOGLOBIN 13.5 g/dl (12.0-15.5); MEAN CORPUSCULAR HEMOGLOBIN 30.8 pg (27.0-33.0); MEAN CORPUSCULAR HGB CONC 31.8 g/dl (32.0-36.5); PLATELET COUNT, AUTOMATED 164 10^3/uL (150-450); RED BLOOD COUNT 4.38 10^6/uL (4.00-5.40); WHITE BLOOD COUNT 5.1 10^3/uL (4.0-10.0)
[2022-02-26 09:53] LABS: CALCIUM LEVEL 9.2 MG/DL (8.8-10.2); CREATININE FOR GFR 1.28 MG/DL (0.55-1.30); GLOMERULAR FILTRATION RATE 44.3 (>45); POTASSIUM SERUM 4.1 MEQ/L (3.5-5.1)
== END ==
LOC: SKLAB5 09:46
PROVIDERS: ATTEND Nurse Practitioner Adult Health
DX: E87.1 Hypo-osmolality and hyponatremia (principal)

== ENCOUNTER → 2022-03-06 | Outpatient (CLI) | payer MEDICARE, MEDICAID | LOC: M PAIN 08:30 | PROVIDERS: ATTEND Nurse Practitioner Family | DX: M54.2 Cervicalgia (principal); G89.29 Other chronic pain; E11.9 Type 2 diabetes mellitus without complications; D50.9 Iron deficiency anemia, unspecified; G47.33 Obstructive sleep apnea (adult) (pediatric); J44.9 Chronic obstructive pulmonary disease, unspecified; K21.9 Gastro-esophageal reflux disease without esophagitis; E55.9 Vitamin D deficiency, unspecified; E03.9 Hypothyroidism, unspecified; Z86.14 Personal history of Methicillin resistant Staphylococcus aureus infection; Z86.59 Personal history of other mental and behavioral disorders; Z88.0 Allergy status to penicillin; Z88.1 Allergy status to other antibiotic agents; Z88.6 Allergy status to analgesic agent; Z79.4 Long term (current) use of insulin; Z79.82 Long term (current) use of aspirin; Z79.899 Other long term (current) drug therapy ==

== ENCOUNTER → 2022-03-07 | Outpatient (REF) | payer MEDICARE, MEDICAID ==
[2022-03-07 13:19] LABS: HEMATOCRIT 40.4 % (36.0-47.0); HEMOGLOBIN 12.9 g/dl (12.0-15.5); MEAN CORPUSCULAR HEMOGLOBIN 30.3 pg (27.0-33.0); MEAN CORPUSCULAR HGB CONC 31.9 g/dl (32.0-36.5); MEAN CORPUSCULAR VOLUME 94.8 fl (80.0-96.0); PLATELET COUNT, AUTOMATED 170 10^3/uL (150-450); RED BLOOD COUNT 4.26 10^6/uL (4.00-5.40); WHITE BLOOD COUNT 5.5 10^3/uL (4.0-10.0)
[2022-03-07 13:46] LABS: CALCIUM LEVEL 9.1 MG/DL (8.8-10.2); CREATININE FOR GFR 1.42 MG/DL (0.55-1.30); GLOMERULAR FILTRATION RATE 39.3 (>45); POTASSIUM SERUM 4.3 MEQ/L (3.5-5.1)
== END ==
LOC: SKLAB5 12:03
PROVIDERS: ATTEND Nurse Practitioner Adult Health
DX: R06.02 Shortness of breath (principal); I50.9 Heart failure, unspecified; J84.10 Pulmonary fibrosis, unspecified; Z87.81 Personal history of (healed) traumatic fracture

== ENCOUNTER → 2022-03-27 | Outpatient (REF) | payer MEDICARE, MEDICAID ==
[2022-03-27 10:29] LABS: HEMATOCRIT 37.2 % (36.0-47.0); MEAN CORPUSCULAR HEMOGLOBIN 30.2 pg (27.0-33.0); MEAN CORPUSCULAR HGB CONC 32.3 g/dl (32.0-36.5); MEAN CORPUSCULAR VOLUME 93.5 fl (80.0-96.0); PLATELET COUNT, AUTOMATED 126 10^3/uL (150-450); RED BLOOD COUNT 3.98 10^6/uL (4.00-5.40)
[2022-03-27 11:01] LABS: CALCIUM LEVEL 8.6 MG/DL (8.8-10.2); CREATININE FOR GFR 1.29 MG/DL (0.55-1.30); GLOMERULAR FILTRATION RATE 43.9 (>45); POTASSIUM SERUM 4.2 MEQ/L (3.5-5.1)
== END ==
LOC: SKLAB5 09:43
PROVIDERS: ATTEND Nurse Practitioner Adult Health
DX: R06.2 Wheezing (principal); R06.02 Shortness of breath; I50.9 Heart failure, unspecified

== ENCOUNTER → 2022-03-28 | Outpatient (CLI) | payer MEDICARE, MEDICAID | LOC: M PLAIMG 10:49 | PROVIDERS: ATTEND Internal Medicine | DX: M50.21 Other cervical disc displacement, high cervical region (principal); M50.222 Other cervical disc displacement at C5-C6 level; M50.223 Other cervical disc displacement at C6-C7 level ==

== ENCOUNTER → 2022-04-16 | Outpatient (CLI) | payer MEDICARE, MEDICAID ==
[~2022-04-16] MED LIST changes: -ASMA220A INH; +LEVO1TAB40 PO; -LEVO750T13 PO; +MOME220A INH; +NYST-13 TOP; -NYST10CR TOP; +POTA-150 PO; -POTA10TA17 PO
== END ==
LOC: M PAIN 11:30
PROVIDERS: ATTEND Nurse Practitioner Family
DX: M79.10 Myalgia, unspecified site (principal); E66.01 Morbid (severe) obesity due to excess calories; M51.36 Other intervertebral disc degeneration, lumbar region; M51.34 Other intervertebral disc degeneration, thoracic region; M51.26 Other intervertebral disc displacement, lumbar region; M50.30 Other cervical disc degeneration, unspecified cervical region; D50.9 Iron deficiency anemia, unspecified; I13.0 Hypertensive heart and chronic kidney disease with heart failure and stage 1 through stage 4 chronic kidney disease, or unspecified chronic kidney disease; G47.33 Obstructive sleep apnea (adult) (pediatric); E78.5 Hyperlipidemia, unspecified; J44.9 Chronic obstructive pulmonary disease, unspecified; E11.22 Type 2 diabetes mellitus with diabetic chronic kidney disease; K21.9 Gastro-esophageal reflux disease without esophagitis; K44.9 Diaphragmatic hernia without obstruction or gangrene; F25.9 Schizoaffective disorder, unspecified; K76.0 Fatty (change of) liver, not elsewhere classified; E55.9 Vitamin D deficiency, unspecified; J45.909 Unspecified asthma, uncomplicated; D72.819 Decreased white blood cell count, unspecified; B37.2 Candidiasis of skin and nail; M79.3 Panniculitis, unspecified; K76.6 Portal hypertension; N18.30 Chronic kidney disease, stage 3 unspecified; I50.32 Chronic diastolic (congestive) heart failure; E03.9 Hypothyroidism, unspecified; Z86.14 Personal history of Methicillin resistant Staphylococcus aureus infection; M17.12 Unilateral primary osteoarthritis, left knee; F41.9 Anxiety disorder, unspecified; I48.91 Unspecified atrial fibrillation; I87.2 Venous insufficiency (chronic) (peripheral); M25.511 Pain in right shoulder; M25.512 Pain in left shoulder; R10.13 Epigastric pain; E87.6 Hypokalemia; Z68.31 Body mass index [BMI] 31.0-31.9, adult; Z79.82 Long term (current) use of aspirin; Z79.4 Long term (current) use of insulin; Z79.899 Other long term (current) drug therapy; Z79.890 Hormone replacement therapy; Z79.891 Long term (current) use of opiate analgesic; Z88.1 Allergy status to other antibiotic agents; Z88.0 Allergy status to penicillin; Z88.6 Allergy status to analgesic agent

== ENCOUNTER → 2022-04-17 | Outpatient (REF) | payer MEDICARE, MEDICAID ==
[~2022-04-17] MED LIST changes: +ASMA220A INH; -LEVO1TAB40 PO; +LEVO750T13 PO; -MOME220A INH; -NYST-13 TOP; +NYST10CR TOP; -POTA-150 PO; +POTA10TA17 PO
== END ==
LOC: SKLAB5 15:01
PROVIDERS: ATTEND Nurse Practitioner Adult Health
DX: J98.4 Other disorders of lung (principal)

== ENCOUNTER → 2022-04-22 | Outpatient (REF) | payer MEDICARE, MEDICAID ==
[~2022-04-22] MED LIST changes: -ASMA220A INH; +LEVO1TAB40 PO; -LEVO750T13 PO; +MOME220A INH; +NYST-13 TOP; -NYST10CR TOP; +POTA-150 PO; -POTA10TA17 PO
== END ==
LOC: SKLAB5 10:52
PROVIDERS: ATTEND Nurse Practitioner Adult Health
DX: Z01.818 Encounter for other preprocedural examination (principal); Z20.822 Contact with and (suspected) exposure to COVID-19; Z53.8 Procedure and treatment not carried out for other reasons

== ENCOUNTER → 2022-05-24 | Outpatient (REF) | payer MEDICARE, MEDICAID ==
[2022-05-24 15:28] LABS: HEMOGLOBIN 12.1 g/dl (12.0-15.5); MEAN CORPUSCULAR HEMOGLOBIN 30.7 pg (27.0-33.0); MEAN CORPUSCULAR HGB CONC 31.8 g/dl (32.0-36.5); MEAN CORPUSCULAR VOLUME 96.4 fl (80.0-96.0); PLATELET COUNT, AUTOMATED 120 10^3/uL (150-450); RED BLOOD COUNT 3.94 10^6/uL (4.00-5.40); WHITE BLOOD COUNT 3.9 10^3/uL (4.0-10.0)
[2022-05-24 16:09] LABS: ALBUMIN 2.3 GM/DL (3.2-5.2); BILIRUBIN,DIRECT 0.3 MG/DL (0.0-0.2); BILIRUBIN,TOTAL 0.7 MG/DL (0.2-1.0); CALCIUM LEVEL 8.9 MG/DL (8.8-10.2); CREATININE FOR GFR 1.28 MG/DL (0.55-1.30); GLOMERULAR FILTRATION RATE 44.3 (>45); POTASSIUM SERUM 3.8 MEQ/L (3.5-5.1); TOTAL PROTEIN 6.7 GM/DL (6.4-8.2)
[2022-05-24 19:04] LABS: APPEARANCE, URINE MANUAL CLEAR (CLEAR); COLOR, URINE MANUAL YELLOW (YELLOW)
[2022-05-24 19:10] LABS: BILIRUBIN, URINE MANUAL NEGATIVE (NEGATIVE); BLOOD URINE MANUAL NEGATIVE (NEGATIVE); GLUCOSE, URINE (UA) MANUAL NEGATIVE (NEGATIVE); KETONE, URINE MANUAL NEGATIVE (NEGATIVE); LEUKOCYTE ESTERASE, URINE MAN POSITIVE (NEGATIVE); NITRITE, URINE MANUAL POSITIVE (NEGATIVE); PROTEIN, URINE MANUAL NEGATIVE (NEGATIVE); UROBILINOGEN, URINE MANUAL NORMAL (NORMAL)
[2022-05-24 19:19] LABS: BACTERIA, URINE LARGE AMOUNT; HYALINE CAST, URINE NONE SEEN /lpf (0-1); RBC, URINE NONE SEEN /hpf (0-3); SQUAMOUS EPITHELIAL CELL URINE NONE SEEN /hpf (SMALL AMT)
== END ==
LOC: SKLAB5 14:36
PROVIDERS: ATTEND Internal Medicine
DX: K74.60 Unspecified cirrhosis of liver (principal); R30.0 Dysuria; R53.83 Other fatigue

== ENCOUNTER → 2022-05-29 | Outpatient (POV) | payer MEDICARE, MEDICAID ==
[~2022-05-29] VITALS: Ht 160 cm; Wt 122.7 kg
[2022-05-29 09:50] VITALS: BP 101/58
== END ==
LOC: M IRPOV 09:39
PROVIDERS: ATTEND Radiology Diagnostic Radiology
DX: Z48.812 Encounter for surgical aftercare following surgery on the circulatory system (principal); R60.0 Localized edema; I87.312 Chronic venous hypertension (idiopathic) with ulcer of left lower extremity; Z88.0 Allergy status to penicillin; Z88.1 Allergy status to other antibiotic agents; Z88.6 Allergy status to analgesic agent

== ENCOUNTER → 2022-06-06 | Outpatient (REF) | payer MEDICARE, MEDICAID | LOC: SKLAB5 04:19 | PROVIDERS: ATTEND Nurse Practitioner Adult Health | DX: D64.9 Anemia, unspecified (principal) ==

== ENCOUNTER → 2022-06-14 | Outpatient (REF) | payer MEDICARE, MEDICAID | LOC: SKLAB5 10:44 | PROVIDERS: ATTEND Nurse Practitioner Adult Health | DX: E11.9 Type 2 diabetes mellitus without complications (principal) ==

== ENCOUNTER → 2022-06-25 | Outpatient (REF) | payer MEDICARE, MEDICAID | LOC: SKLAB5 09:19 | PROVIDERS: ATTEND Nurse Practitioner Adult Health | DX: Z12.11 Encounter for screening for malignant neoplasm of colon (principal) ==

== ENCOUNTER → 2022-06-26 | Outpatient (REF) | payer MEDICARE, MEDICAID ==
[2022-06-26 11:45] LABS: HEMATOCRIT 36.2 % (36.0-47.0); HEMOGLOBIN 11.4 g/dl (12.0-15.5); MEAN CORPUSCULAR HEMOGLOBIN 31.8 pg (27.0-33.0); MEAN CORPUSCULAR HGB CONC 31.5 g/dl (32.0-36.5); MEAN CORPUSCULAR VOLUME 100.8 fl (80.0-96.0); PLATELET COUNT, AUTOMATED 104 10^3/uL (150-450); RED BLOOD COUNT 3.59 10^6/uL (4.00-5.40); WHITE BLOOD COUNT 4.8 10^3/uL (4.0-10.0)
[2022-06-26 12:34] LABS: CALCIUM LEVEL 9.8 MG/DL (8.8-10.2); CREATININE FOR GFR 1.6 MG/DL (0.55-1.30); GLOMERULAR FILTRATION RATE 34.2 (>45); POTASSIUM SERUM 3.3 MEQ/L (3.5-5.1)
== END ==
LOC: SKLAB5 10:47
PROVIDERS: ATTEND Nurse Practitioner Adult Health
DX: I50.9 Heart failure, unspecified (principal)

== ENCOUNTER → 2022-06-26 | Outpatient (REF) | payer MEDICARE, MEDICAID | LOC: SKLAB5 09:07 | PROVIDERS: ATTEND Nurse Practitioner Adult Health | DX: Z12.11 Encounter for screening for malignant neoplasm of colon (principal); Z53.8 Procedure and treatment not carried out for other reasons ==

== ENCOUNTER → 2022-06-27 | Outpatient (REF) | payer MEDICARE, MEDICAID ==
[2022-06-27 09:03] LABS: CALCIUM LEVEL 9.1 MG/DL (8.8-10.2); CREATININE FOR GFR 1.74 MG/DL (0.55-1.30); GLOMERULAR FILTRATION RATE 31.1 (>45); POTASSIUM SERUM 3.4 MEQ/L (3.5-5.1)
== END ==
LOC: SKLAB5 08:16
PROVIDERS: ATTEND Nurse Practitioner Adult Health
DX: E87.6 Hypokalemia (principal)

== ENCOUNTER → 2022-06-29 | Outpatient (REF) | LOC: SKLAB5 12:45 | PROVIDERS: ATTEND Internal Medicine | DX: Z13.818 Encounter for screening for other digestive system disorders (principal) ==

== ENCOUNTER → 2022-07-03 | Outpatient (REF) | payer MEDICARE, MEDICAID | LOC: SKLAB5 14:32 | PROVIDERS: ATTEND Nurse Practitioner Adult Health | DX: N18.9 Chronic kidney disease, unspecified (principal); Z53.8 Procedure and treatment not carried out for other reasons ==

== ENCOUNTER → 2022-07-03 | Outpatient (REF) | payer MEDICARE, MEDICAID ==
[2022-07-03 08:43] LABS: CALCIUM LEVEL 8.8 MG/DL (8.8-10.2); CREATININE FOR GFR 1.38 MG/DL (0.55-1.30); GLOMERULAR FILTRATION RATE 40.6 (>45); POTASSIUM SERUM 3.1 MEQ/L (3.5-5.1)
== END ==
LOC: SKLAB5 09:18
PROVIDERS: ATTEND Nurse Practitioner
DX: E87.6 Hypokalemia (principal)

== ENCOUNTER → 2022-07-09 | Outpatient (REF) | payer MEDICARE, MEDICAID ==
[2022-07-09 08:20] LABS: CALCIUM LEVEL 7.5 MG/DL (8.8-10.2); CREATININE FOR GFR 1.33 MG/DL (0.55-1.30); GLOMERULAR FILTRATION RATE 42.4 (>45); POTASSIUM SERUM 3.5 MEQ/L (3.5-5.1)
== END ==
LOC: SKLAB5 09:28
PROVIDERS: ATTEND Nurse Practitioner
DX: N18.9 Chronic kidney disease, unspecified (principal)

== ENCOUNTER → 2022-07-12 | Outpatient (REF) | payer MEDICARE, MEDICAID ==
[2022-07-12 13:16] LABS: HEMATOCRIT 38.2 % (36.0-47.0); HEMOGLOBIN 12.2 g/dl (12.0-15.5); MEAN CORPUSCULAR HEMOGLOBIN 31.4 pg (27.0-33.0); MEAN CORPUSCULAR HGB CONC 31.9 g/dl (32.0-36.5); MEAN CORPUSCULAR VOLUME 98.5 fl (80.0-96.0); PLATELET COUNT, AUTOMATED 130 10^3/uL (150-450); RED BLOOD COUNT 3.88 10^6/uL (4.00-5.40); WHITE BLOOD COUNT 4.2 10^3/uL (4.0-10.0)
[2022-07-12 13:44] LABS: CALCIUM LEVEL 8.7 MG/DL (8.8-10.2); CREATININE FOR GFR 1.32 MG/DL (0.55-1.30); GLOMERULAR FILTRATION RATE 42.7 (>45); POTASSIUM SERUM 3.3 MEQ/L (3.5-5.1)
== END ==
LOC: SKLAB5 11:44
PROVIDERS: ATTEND Nurse Practitioner Adult Health
DX: J06.9 Acute upper respiratory infection, unspecified (principal); Z20.822 Contact with and (suspected) exposure to COVID-19

== ENCOUNTER → 2022-07-13 | Outpatient (REF) | payer MEDICARE, MEDICAID ==
[2022-07-13 09:47] LABS: CALCIUM LEVEL 7.9 MG/DL (8.8-10.2); CREATININE FOR GFR 1.3 MG/DL (0.55-1.30); GLOMERULAR FILTRATION RATE 43.5 (>45); POTASSIUM SERUM 4.1 MEQ/L (3.5-5.1)
== END ==
LOC: SKLAB5 07:00
PROVIDERS: ATTEND Nurse Practitioner Adult Health
DX: U07.1 COVID-19 (principal)

== ENCOUNTER → 2022-07-16 | Outpatient (REF) | payer MEDICARE, MEDICAID ==
[2022-07-16 08:33] LABS: HEMATOCRIT 37.1 % (36.0-47.0); MEAN CORPUSCULAR HEMOGLOBIN 31.3 pg (27.0-33.0); MEAN CORPUSCULAR HGB CONC 32.3 g/dl (32.0-36.5); MEAN CORPUSCULAR VOLUME 96.6 fl (80.0-96.0); PLATELET COUNT, AUTOMATED 122 10^3/uL (150-450); RED BLOOD COUNT 3.84 10^6/uL (4.00-5.40); WHITE BLOOD COUNT 4.6 10^3/uL (4.0-10.0)
[2022-07-16 09:20] LABS: ALBUMIN 2.4 GM/DL (3.2-5.2); BILIRUBIN,TOTAL 0.6 MG/DL (0.2-1.0); CALCIUM LEVEL 8.3 MG/DL (8.8-10.2); CREATININE FOR GFR 1.35 MG/DL (0.55-1.30); GLOMERULAR FILTRATION RATE 41.6 (>45); TOTAL PROTEIN 7.6 GM/DL (6.4-8.2)
== END ==
LOC: SKLAB5 12:01
PROVIDERS: ATTEND Nurse Practitioner Adult Health
DX: U07.1 COVID-19 (principal); Z79.899 Other long term (current) drug therapy

== ENCOUNTER → 2022-07-19 | Outpatient (REF) | payer MEDICARE, MEDICAID ==
[2022-07-19 09:23] LABS: HEMATOCRIT 37.6 % (36.0-47.0); HEMOGLOBIN 12.2 g/dl (12.0-15.5); MEAN CORPUSCULAR HEMOGLOBIN 31.1 pg (27.0-33.0); MEAN CORPUSCULAR HGB CONC 32.4 g/dl (32.0-36.5); MEAN CORPUSCULAR VOLUME 95.9 fl (80.0-96.0); RED BLOOD COUNT 3.92 10^6/uL (4.00-5.40); WHITE BLOOD COUNT 4.5 10^3/uL (4.0-10.0)
[2022-07-19 09:46] LABS: CALCIUM LEVEL 7.8 MG/DL (8.8-10.2); CREATININE FOR GFR 1.48 MG/DL (0.55-1.30); GLOMERULAR FILTRATION RATE 37.4 (>45); POTASSIUM SERUM 4.6 MEQ/L (3.5-5.1)
[2022-07-19 09:57] LABS: PLATELET COUNT, AUTOMATED 91 10^3/uL (150-450)
== END ==
LOC: SKLAB5 08:55
PROVIDERS: ATTEND Nurse Practitioner Adult Health
DX: U07.1 COVID-19 (principal); Z79.899 Other long term (current) drug therapy

== ENCOUNTER → 2022-07-23 | Outpatient (REF) | payer MEDICARE, MEDICAID ==
[2022-07-23 08:12] LABS: HEMATOCRIT 35.4 % (36.0-47.0); HEMOGLOBIN 11.6 g/dl (12.0-15.5); MEAN CORPUSCULAR HEMOGLOBIN 31.3 pg (27.0-33.0); MEAN CORPUSCULAR HGB CONC 32.8 g/dl (32.0-36.5); MEAN CORPUSCULAR VOLUME 95.4 fl (80.0-96.0); RED BLOOD COUNT 3.71 10^6/uL (4.00-5.40); WHITE BLOOD COUNT 5.1 10^3/uL (4.0-10.0)
[2022-07-23 08:37] LABS: ALBUMIN 2.4 GM/DL (3.2-5.2); BILIRUBIN,TOTAL 0.7 MG/DL (0.2-1.0); CALCIUM LEVEL 8.2 MG/DL (8.8-10.2); CREATININE FOR GFR 1.41 MG/DL (0.55-1.30); GLOMERULAR FILTRATION RATE 39.6 (>45); PLATELET COUNT, AUTOMATED 89 10^3/uL (150-450); POTASSIUM SERUM 3.7 MEQ/L (3.5-5.1); TOTAL PROTEIN 7.2 GM/DL (6.4-8.2)
== END ==
LOC: SKLAB5 08:41
PROVIDERS: ATTEND Nurse Practitioner Adult Health
DX: U07.1 COVID-19 (principal); Z79.899 Other long term (current) drug therapy

== ENCOUNTER → 2022-07-26 | Outpatient (REF) | payer MEDICARE, MEDICAID ==
[2022-07-26 07:26] LABS: HEMOGLOBIN 11.4 g/dl (12.0-15.5); MEAN CORPUSCULAR HEMOGLOBIN 30.4 pg (27.0-33.0); MEAN CORPUSCULAR HGB CONC 31.7 g/dl (32.0-36.5); PLATELET COUNT, AUTOMATED 102 10^3/uL (150-450); RED BLOOD COUNT 3.75 10^6/uL (4.00-5.40); WHITE BLOOD COUNT 6.5 10^3/uL (4.0-10.0)
[2022-07-26 08:21] LABS: ALBUMIN 2.4 GM/DL (3.2-5.2); BILIRUBIN,TOTAL 0.7 MG/DL (0.2-1.0); CALCIUM LEVEL 8.6 MG/DL (8.8-10.2); CREATININE FOR GFR 1.3 MG/DL (0.55-1.30); GLOMERULAR FILTRATION RATE 43.5 (>45); POTASSIUM SERUM 3.4 MEQ/L (3.5-5.1); TOTAL PROTEIN 7.1 GM/DL (6.4-8.2)
== END ==
LOC: SKLAB5 08:32
PROVIDERS: ATTEND Nurse Practitioner Adult Health
DX: E87.6 Hypokalemia (principal)

== ENCOUNTER → 2022-08-06 | Outpatient (CLI) | payer MEDICARE, MEDICAID ==
[~2022-08-06] MED LIST changes: +BUPIVACAINE HCL 0.25% 10ML VIAL As Ordered ONE; +BUPIVACAINE HCL 0.25% 30ML VIAL As Ordered ONE; +TRIAMCINOLONE ACETONIDE SUSP 40 MG/ML VIAL (J3301) As Ordered ONE
== END ==
LOC: M PAIN 10:30
PROVIDERS: ATTEND Anesthesiology
DX: M79.12 Myalgia of auxiliary muscles, head and neck (principal); E66.01 Morbid (severe) obesity due to excess calories; M50.30 Other cervical disc degeneration, unspecified cervical region; M51.36 Other intervertebral disc degeneration, lumbar region; M51.34 Other intervertebral disc degeneration, thoracic region; D50.9 Iron deficiency anemia, unspecified; R60.0 Localized edema; I13.0 Hypertensive heart and chronic kidney disease with heart failure and stage 1 through stage 4 chronic kidney disease, or unspecified chronic kidney disease; G47.33 Obstructive sleep apnea (adult) (pediatric); E78.5 Hyperlipidemia, unspecified; J44.9 Chronic obstructive pulmonary disease, unspecified; E11.22 Type 2 diabetes mellitus with diabetic chronic kidney disease; K21.9 Gastro-esophageal reflux disease without esophagitis; K44.9 Diaphragmatic hernia without obstruction or gangrene; F25.9 Schizoaffective disorder, unspecified; K76.0 Fatty (change of) liver, not elsewhere classified; E55.9 Vitamin D deficiency, unspecified; J45.909 Unspecified asthma, uncomplicated; D72.819 Decreased white blood cell count, unspecified; K76.6 Portal hypertension; M79.3 Panniculitis, unspecified; I50.32 Chronic diastolic (congestive) heart failure; E03.9 Hypothyroidism, unspecified; F41.9 Anxiety disorder, unspecified; M17.12 Unilateral primary osteoarthritis, left knee; I48.91 Unspecified atrial fibrillation; I87.2 Venous insufficiency (chronic) (peripheral); E87.6 Hypokalemia; Z68.42 Body mass index [BMI] 45.0-49.9, adult; Z88.1 Allergy status to other antibiotic agents; Z88.6 Allergy status to analgesic agent; Z88.0 Allergy status to penicillin; Z79.890 Hormone replacement therapy; Z79.891 Long term (current) use of opiate analgesic; Z79.899 Other long term (current) drug therapy; Z79.82 Long term (current) use of aspirin; Z79.4 Long term (current) use of insulin
CPT/HCPCS: 20553; J3301

== ENCOUNTER → 2022-08-10 | Outpatient (REF) | payer MEDICARE, MEDICAID ==
[~2022-08-10] MED LIST changes: -BUPIVACAINE HCL 0.25% 10ML VIAL As Ordered ONE; -BUPIVACAINE HCL 0.25% 30ML VIAL As Ordered ONE; -TRIAMCINOLONE ACETONIDE SUSP 40 MG/ML VIAL (J3301) As Ordered ONE
[2022-08-10 08:03] LABS: HEMATOCRIT 32.6 % (36.0-47.0); HEMOGLOBIN 10.6 g/dl (12.0-15.5); MEAN CORPUSCULAR HEMOGLOBIN 30.6 pg (27.0-33.0); MEAN CORPUSCULAR HGB CONC 32.5 g/dl (32.0-36.5); MEAN CORPUSCULAR VOLUME 94.2 fl (80.0-96.0); RED BLOOD COUNT 3.46 10^6/uL (4.00-5.40); WHITE BLOOD COUNT 4.4 10^3/uL (4.0-10.0)
[2022-08-10 08:06] LABS: PLATELET COUNT, AUTOMATED 96 10^3/uL (150-450)
[2022-08-10 08:51] LABS: CALCIUM LEVEL 8.8 MG/DL (8.3-10.6); CREATININE FOR GFR 1.18 MG/DL (0.55-1.30); GLOMERULAR FILTRATION RATE 48.6 (>45); POTASSIUM SERUM 3.1 MMOL/L (3.5-5.1)
[2022-08-10 09:18] LABS: HEMOGLOBIN A1c 10.1 % (4.0-6.0)
== END ==
LOC: SKLAB5 11:41
PROVIDERS: ATTEND Nurse Practitioner Adult Health
DX: E11.22 Type 2 diabetes mellitus with diabetic chronic kidney disease (principal); D63.1 Anemia in chronic kidney disease; N18.9 Chronic kidney disease, unspecified

== ENCOUNTER → 2022-08-13 | Outpatient (REF) | payer MEDICARE, MEDICAID ==
[~2022-08-13] MED LIST changes: -ASMA1AER3 INH; +DIPH-435 PO; -DIPH25CA32 PO; +MOME13HF5 INH; -POTA10CA32 PO; +POTA10CA33 PO
[2022-08-13 08:04] LABS: CREATININE FOR GFR 1.27 MG/DL (0.55-1.30); GLOMERULAR FILTRATION RATE 44.7 (>45); POTASSIUM SERUM 4.2 MMOL/L (3.5-5.1)
== END ==
LOC: SKLAB5 10:04
PROVIDERS: ATTEND Nurse Practitioner Adult Health
DX: E87.6 Hypokalemia (principal)

== ENCOUNTER → 2022-08-23 | Outpatient (CLI) | payer MEDICARE, MEDICAID ==
[~2022-08-23] MED LIST changes: +ASMA1AER3 INH; -DIPH-435 PO; +DIPH25CA32 PO; -MOME13HF5 INH; +POTA10CA32 PO; -POTA10CA33 PO
== END ==
LOC: M RAD 12:06
PROVIDERS: ATTEND Physician Assistant
DX: L97.822 Non-pressure chronic ulcer of other part of left lower leg with fat layer exposed (principal); L97.812 Non-pressure chronic ulcer of other part of right lower leg with fat layer exposed

== ENCOUNTER → 2022-08-27 | Outpatient (REF) | payer MEDICARE, MEDICAID ==
[2022-08-27 08:40] LABS: HEMATOCRIT 36.9 % (36.0-47.0); HEMOGLOBIN 11.8 g/dl (12.0-15.5); MEAN CORPUSCULAR HEMOGLOBIN 29.9 pg (27.0-33.0); MEAN CORPUSCULAR VOLUME 93.7 fl (80.0-96.0); PLATELET COUNT, AUTOMATED 113 10^3/uL (150-450); RED BLOOD COUNT 3.94 10^6/uL (4.00-5.40); WHITE BLOOD COUNT 5.3 10^3/uL (4.0-10.0)
[2022-08-27 09:07] LABS: ALBUMIN 2.4 G/DL (3.2-5.2); BILIRUBIN,TOTAL 0.6 MG/DL (0.3-1.2); CALCIUM LEVEL 8.4 MG/DL (8.3-10.6); CREATININE FOR GFR 1.27 MG/DL (0.55-1.30); GLOMERULAR FILTRATION RATE 44.7 (>45); POTASSIUM SERUM 3.7 MMOL/L (3.5-5.1); TOTAL PROTEIN 6.9 G/DL (5.7-8.2)
== END ==
LOC: SKLAB5 07:52
PROVIDERS: ATTEND Internal Medicine
DX: R53.83 Other fatigue (principal); R53.1 Weakness

== ENCOUNTER → 2022-08-29 | Outpatient (CLI) | payer MEDICARE, MEDICAID | LOC: M RAD 16:02 | PROVIDERS: ATTEND Internal Medicine | DX: M25.512 Pain in left shoulder (principal) ==

== ENCOUNTER → 2022-08-29 | Outpatient (REF) | payer MEDICARE, MEDICAID | LOC: SKLAB5 15:28 | PROVIDERS: ATTEND Nurse Practitioner Adult Health | DX: M79.622 Pain in left upper arm (principal); Z53.8 Procedure and treatment not carried out for other reasons ==

== ENCOUNTER → 2022-09-11 | Outpatient (CLI) | payer MEDICARE, MEDICAID ==
[~2022-09-11] MED LIST changes: -POTA10CA32 PO; +POTA10CA33 PO
== END ==
LOC: M PAIN 14:30
PROVIDERS: ATTEND Anesthesiology
DX: M79.18 Myalgia, other site (principal); G89.29 Other chronic pain; E11.9 Type 2 diabetes mellitus without complications; I10 Essential (primary) hypertension; G47.33 Obstructive sleep apnea (adult) (pediatric); J44.9 Chronic obstructive pulmonary disease, unspecified; K21.9 Gastro-esophageal reflux disease without esophagitis; E55.9 Vitamin D deficiency, unspecified; E03.9 Hypothyroidism, unspecified; Z86.14 Personal history of Methicillin resistant Staphylococcus aureus infection; Z86.59 Personal history of other mental and behavioral disorders; Z88.0 Allergy status to penicillin; Z88.1 Allergy status to other antibiotic agents; Z88.6 Allergy status to analgesic agent; E66.01 Morbid (severe) obesity due to excess calories; Z68.42 Body mass index [BMI] 45.0-49.9, adult; Z79.4 Long term (current) use of insulin; Z79.51 Long term (current) use of inhaled steroids; Z79.82 Long term (current) use of aspirin; Z79.899 Other long term (current) drug therapy

== ENCOUNTER → 2022-10-02 | Outpatient (POV) | payer MEDICARE, MEDICAID ==
[~2022-10-02] VITALS: Ht 160 cm; Wt 121.8 kg
[~2022-10-02] MED LIST changes: -ASMA1AER3 INH; +DIPH-435 PO; -DIPH25CA32 PO; +MOME13HF5 INH
[2022-10-02 08:16] VITALS: BP 140/78
== END ==
LOC: M IRPOV 07:55
PROVIDERS: ATTEND Radiology Diagnostic Radiology
DX: R60.0 Localized edema (principal); L97.929 Non-pressure chronic ulcer of unspecified part of left lower leg with unspecified severity; Z88.0 Allergy status to penicillin; Z88.1 Allergy status to other antibiotic agents; Z88.6 Allergy status to analgesic agent

== ENCOUNTER → 2022-10-17 | Outpatient (REF) | payer MEDICARE, MEDICAID | LOC: M SFHCWOUN 16:14 | PROVIDERS: ATTEND Physician Assistant | DX: L97.822 Non-pressure chronic ulcer of other part of left lower leg with fat layer exposed (principal) ==

== ENCOUNTER → 2022-10-22 | Outpatient (CLI) | payer MEDICARE, MEDICAID | LOC: M RAD 09:56 | PROVIDERS: ATTEND Nurse Practitioner Family | DX: R91.8 Other nonspecific abnormal finding of lung field (principal) ==

== ENCOUNTER → 2022-10-26 | Outpatient (REF) | payer MEDICARE, MEDICAID | LOC: SKLAB5 14:26 | PROVIDERS: ATTEND Nurse Practitioner Adult Health | DX: M25.512 Pain in left shoulder (principal) ==

== ENCOUNTER → 2022-11-05 | Outpatient (REF) | payer MEDICARE, MEDICAID ==
[2022-11-05 14:23] LABS: CALCIUM LEVEL 8.5 MG/DL (8.3-10.6); CREATININE FOR GFR 1.03 MG/DL (0.55-1.30); GLOMERULAR FILTRATION RATE 56.7 (>45); POTASSIUM SERUM 3.9 MMOL/L (3.5-5.1)
== END ==
LOC: SKLAB5 13:04
PROVIDERS: ATTEND Nurse Practitioner Adult Health
DX: N18.9 Chronic kidney disease, unspecified (principal)

== ENCOUNTER → 2022-11-08 | Outpatient (REF) | payer MEDICARE, MEDICAID ==
[2022-11-08 10:52] LABS: CALCIUM LEVEL 8.6 MG/DL (8.3-10.6); CREATININE FOR GFR 1.09 MG/DL (0.55-1.30); GLOMERULAR FILTRATION RATE 53.1 (>45); POTASSIUM SERUM 3.7 MMOL/L (3.5-5.1)
== END ==
LOC: SKLAB5 07:00
PROVIDERS: ATTEND Nurse Practitioner Adult Health
DX: N18.9 Chronic kidney disease, unspecified (principal)

== ENCOUNTER → 2022-11-14 | Outpatient (REF) | payer MEDICARE, MEDICAID ==
[2022-11-14 07:56] LABS: CALCIUM LEVEL 8.9 MG/DL (8.3-10.6); CREATININE FOR GFR 1.06 MG/DL (0.55-1.30); GLOMERULAR FILTRATION RATE 54.9 (>45); POTASSIUM SERUM 4.1 MMOL/L (3.5-5.1)
== END ==
LOC: SKLAB5 12:27
PROVIDERS: ATTEND Nurse Practitioner Adult Health
DX: E11.9 Type 2 diabetes mellitus without complications (principal)

== ENCOUNTER → 2022-11-16 | Outpatient (CLI) | payer MEDICARE, MEDICAID ==
[~2022-11-16] MED LIST changes: +GASTROGRAFIN SOLUTION 30ML As Ordered ONE; +ISOVUE-370 76% 100ML VIAL As Ordered ONE
== END ==
LOC: M RAD 14:01
PROVIDERS: ATTEND Nurse Practitioner Adult Health
DX: R10.9 Unspecified abdominal pain (principal)
CPT/HCPCS: 74177; Q9963; Q9967

== ENCOUNTER → 2022-11-27 | Outpatient (POV) | payer MEDICARE, MEDICAID ==
[~2022-11-27] VITALS: Ht 160 cm; Wt 118.5 kg
[~2022-11-27] MED LIST changes: -GASTROGRAFIN SOLUTION 30ML As Ordered ONE; -ISOVUE-370 76% 100ML VIAL As Ordered ONE
[2022-11-27 13:30] VITALS: BP 127/68
== END ==
LOC: M IRPOV 12:47
PROVIDERS: ATTEND Radiology Diagnostic Radiology
DX: L97.819 Non-pressure chronic ulcer of other part of right lower leg with unspecified severity (principal); L97.829 Non-pressure chronic ulcer of other part of left lower leg with unspecified severity; I87.2 Venous insufficiency (chronic) (peripheral); E66.9 Obesity, unspecified; R60.0 Localized edema; Z88.0 Allergy status to penicillin; Z88.6 Allergy status to analgesic agent; Z88.8 Allergy status to other drugs, medicaments and biological substances

== ENCOUNTER → 2022-11-28 | Outpatient (REF) | payer MEDICARE, MEDICAID | LOC: SKLAB5 15:13 | PROVIDERS: ATTEND Nurse Practitioner Adult Health | DX: M25.512 Pain in left shoulder (principal); Z53.8 Procedure and treatment not carried out for other reasons ==

== ENCOUNTER → 2022-11-28 | Outpatient (CLI) | payer MEDICARE, MEDICAID | LOC: M RAD 15:42 | PROVIDERS: ATTEND Internal Medicine | DX: M25.512 Pain in left shoulder (principal) ==

== ENCOUNTER → 2022-11-29 | Outpatient (CLI) | payer MEDICARE, MEDICAID | LOC: M RAD 14:06 | PROVIDERS: ATTEND Internal Medicine | DX: M25.512 Pain in left shoulder (principal) ==

== ENCOUNTER → 2022-12-11 | Outpatient (CLI) | payer MEDICARE, MEDICAID ==
[~2022-12-11] MED LIST changes: +ISOVUE-370 76% 100ML VIAL As Ordered ONE
== END ==
LOC: M RAD 14:13
PROVIDERS: ATTEND Radiology Diagnostic Radiology
DX: I73.9 Peripheral vascular disease, unspecified (principal)
CPT/HCPCS: 75635; Q9967

== ENCOUNTER → 2022-12-17 | Outpatient (CLI) | payer MEDICARE, MEDICAID ==
[~2022-12-17] MED LIST changes: -ISOVUE-370 76% 100ML VIAL As Ordered ONE
== END ==
LOC: M RAD 08:26
PROVIDERS: ATTEND Nurse Practitioner Adult Health
DX: S02.2XXA Fracture of nasal bones, initial encounter for closed fracture (principal); J32.3 Chronic sphenoidal sinusitis; W19.XXXA Unspecified fall, initial encounter; Y92.129 Unspecified place in nursing home as the place of occurrence of the external cause; Y93.9 Activity, unspecified; Y99.9 Unspecified external cause status

== ENCOUNTER 2022-12-29 23:12 | Inpatient (IN) | payer MEDICARE, MEDICAID ==
[~2022-12-29] VITALS: Ht 160 cm; Wt 125.0 kg
[~2022-12-29 23:12] MED LIST changes: +ARTIDRO4 OU; +ASPI-655 PO; -ASPI1CHW3 PO; -POLYOPD OU; +SENN-186 PO; -SENN-80 PO
[2022-12-30 00:33] LABS: ALBUMIN 1.9 G/DL (3.2-5.2); BASO % 1.2 % (0.0-1.0); BILIRUBIN,TOTAL 0.6 MG/DL (0.3-1.2); CALCIUM LEVEL 7.9 MG/DL (8.3-10.6); CREATININE FOR GFR 1.1 MG/DL (0.55-1.30); EOS # 0.1 10^3/uL (0.0-0.5); EOS % 3.8 % (0.0-3.0); GLOMERULAR FILTRATION RATE 52.6 (>45); HEMATOCRIT 32.6 % (36.0-47.0); HEMOGLOBIN 10.5 g/dl (12.0-15.5); LYMPH % 27.9 % (24.0-44.0); MEAN CORPUSCULAR HEMOGLOBIN 29.3 pg (27.0-33.0); MEAN CORPUSCULAR HGB CONC 32.2 g/dl (32.0-36.5); MEAN CORPUSCULAR VOLUME 91.1 fl (80.0-96.0); MONO # 0.2 10^3/uL (0.0-0.8); NEUTROPHILS % 59.2 % (36.0-66.0); PLATELET COUNT, AUTOMATED 151 10^3/uL (150-450); POTASSIUM SERUM 3.4 MMOL/L (3.5-5.1); RED BLOOD COUNT 3.58 10^6/uL (4.00-5.40); WHITE BLOOD COUNT 3.4 10^3/uL (4.0-10.0)
[2022-12-30] MEDS ORDERED: ISOVUE-370 76% 100ML VIAL As Ordered ONE (00:35)
[2022-12-30 00:41] LABS: RSV AMPLIFICATION NEGATIVE (NEGATIVE)
[2022-12-30] MEDS ORDERED: NS 500 ML IV ONE ×2 (01:10→06:05)
[2022-12-30] MEDS ORDERED: VANCOMYCIN HCL 1,500 MG in IV FLUID PLACE HOLDER 1 EA IV ONE (02:25)
[2022-12-30] MEDS ORDERED: VANCOMYCIN HCL 750 MG, VIAL MATE ADAPTER 1 EACH in D5W 250 ML IV ONE ×6 (03:00)
[2022-12-30] MEDS ORDERED: TORS20TA2 PO (03:47)
[2022-12-30] MEDS ORDERED: SALI0.6530 NARES (03:47)
[2022-12-30] MEDS ORDERED: GABA-282 PO (03:47)
[2022-12-30] MEDS ORDERED: ONDA4TAB6 PO (03:47)
[2022-12-30] MEDS ORDERED: CAPS0.022 TOP (03:47)
[2022-12-30] MEDS ORDERED: ERGO500029 PO (03:47)
[2022-12-30] MEDS ORDERED: COMBAER6 INH (03:47)
[2022-12-30] MEDS ORDERED: TRUL0.5I SC (03:47)
[2022-12-30] MEDS ORDERED: CETI-24 PO (03:47)
[2022-12-30] MEDS ORDERED: CERA453C2 TP (03:47)
[2022-12-30] MEDS ORDERED: DICL20GE TP (03:47)
[2022-12-30] MEDS ORDERED: XIFA550T PO (03:47)
[2022-12-30] MEDS ORDERED: ANOR1AER PO (03:47)
[2022-12-30] MEDS ORDERED: OXYC-517 PO (03:47)
[2022-12-30] MEDS ORDERED: TUMS500C PO (03:47)
[2022-12-30] MEDS ORDERED: ESOM0.1C PO (03:47)
[2022-12-30] MEDS ORDERED: PROL60SO SC (03:47)
[2022-12-30] MEDS ORDERED: ATOR1TAB21 PO (03:47)
[2022-12-30] MEDS ORDERED: GUAI100L6 PO (03:47)
[2022-12-30] MEDS ORDERED: NYST1POW9 TOP (03:47)
[2022-12-30] MEDS ORDERED: HYDR2.5C TOP (03:47)
[2022-12-30] MEDS ORDERED: TIZA1TAB12 PO (03:47)
[2022-12-30] MEDS ORDERED: METO25TA4 PO (03:47)
[2022-12-30] MEDS ORDERED: AVEELOT TOP (03:47)
[2022-12-30] MEDS ORDERED: IPRA0.00 INH (03:47)
[2022-12-30] MEDS ORDERED: ROPI2TAB3 PO (03:47)
[2022-12-30] MEDS ORDERED: BENG1CRE TOP (03:47)
[2022-12-30] MEDS ORDERED: ARTIDRO4 OU (03:47)
[2022-12-30] MEDS ORDERED: HOME MED LIST COMPLETE! XX SCH (03:50)
[2022-12-30] MEDS ORDERED: GLUCAGON INJ 1MG VIAL SC PRN (04:15)
[2022-12-30] MEDS ORDERED: GLUCOSE 4GM CHEW TABLET PO PRN (04:15)
[2022-12-30] MEDS ORDERED: IPRATROPIUM 0.5MG/ALBUTEROL 2.5MG INH SOL UD 3ML (DUONEB) INH PRN (04:15)
[2022-12-30] MEDS ORDERED: BISACODYL 10MG SUPP PR PRN (04:15)
[2022-12-30] MEDS ORDERED: DEXTROSE 50% 50ML SYRINGE IV PRN (04:15)
[2022-12-30 05:33] LABS: BASO % 0.9 % (0.0-1.0); EOS # 0.1 10^3/uL (0.0-0.5); EOS % 3.5 % (0.0-3.0); HEMATOCRIT 33.8 % (36.0-47.0); HEMOGLOBIN 10.8 g/dl (12.0-15.5); LYMPH # 1.1 10^3/uL (1.5-5.0); LYMPH % 30.9 % (24.0-44.0); MEAN CORPUSCULAR HEMOGLOBIN 29.3 pg (27.0-33.0); MEAN CORPUSCULAR VOLUME 91.6 fl (80.0-96.0); MONO # 0.2 10^3/uL (0.0-0.8); MONO % 6.7 % (2.0-8.0); NEUTROPHILS % 57.4 % (36.0-66.0); PLATELET COUNT, AUTOMATED 148 10^3/uL (150-450); RED BLOOD COUNT 3.69 10^6/uL (4.00-5.40); WHITE BLOOD COUNT 3.4 10^3/uL (4.0-10.0)
[2022-12-30 05:43] LABS: ERYTHROCYTE SEDIMENTATION RATE > 130 mm/hr (0-30)
[2022-12-30 05:45] VITALS: BP 146/82
[2022-12-30 05:51] LABS: C REACTIVE PROTEIN QUANTITATIV 2.5 MG/DL (<1.0)
[2022-12-30 05:52] LABS: CALCIUM LEVEL 7.7 MG/DL (8.3-10.6); CREATININE FOR GFR 1.01 MG/DL (0.55-1.30); POTASSIUM SERUM 3.5 MMOL/L (3.5-5.1)
[2022-12-30] MEDS: LEVOTHYROXINE 50MCG TABLET (0.05MG) PO SCH (06:04)
[2022-12-30] MEDS ORDERED: MORPHINE 2 MG/ML 1ML VIAL IV ONE (07:40)
[2022-12-30 08:01] LABS: INR 1.22; PROTHROMBIN TIME 15.7 SECONDS (12.5-14.5)
[2022-12-30] MEDS: ATORVASTATIN 20 MG TAB PO SCH (08:34)
[2022-12-30] MEDS: TORSEMIDE 20 MG TAB PO SCH ×2 (08:34→18:54)
[2022-12-30] MEDS: ACETAMINOPHEN TAB 650MG DOSE (2X325MG) PO PRN ×2 (08:34→20:43)
[2022-12-30] MEDS: rifAXIMin 550 MG TAB (XIFAXAN) PO SCH ×2 (08:34→20:41)
[2022-12-30] MEDS: POTASSIUM CHLORIDE 10MEQ SR TABLET PO SCH ×2 (08:34→20:43)
[2022-12-30] MEDS: GABAPENTIN 300 MG CAP PO SCH ×2 (08:35→20:41)
[2022-12-30] MEDS: SENNA 8.6 MG TAB (SENOKOT) PO SCH (08:35)
[2022-12-30] MEDS: METOPROLOL TART 25 MG TABLET PO SCH ×2 (08:35→20:41)
[2022-12-30] MEDS: CETIRIZINE (ZyrTEC) 10 MG TAB PO SCH (08:35)
[2022-12-30] MEDS: FERROUS GLUCONATE 324 MG TAB PO SCH (08:35)
[2022-12-30] MEDS: ASPIRIN 81MG CHEW TABLET PO SCH (08:35)
[2022-12-30] MEDS: DULoxetine 30MG CAPSULE (CYMBALTA) PO SCH ×2 (08:35→20:41)
[2022-12-30] MEDS: oxyCODONE 5MG TAB PO PRN ×2 (08:36→18:59)
[2022-12-30] MEDS: INSULIN LISPRO (NovoLOG) PER UNIT SC SCH ×4 (08:36→20:42)
[2022-12-30] MEDS: SODIUM CHLORIDE NASAL 0.65% SPRAY BTL (OCEAN) SCH ×3 (08:37→20:42)
[2022-12-30] MEDS: ANUSOL HC CREAM 30GM TOP SCH (08:38)
[2022-12-30] MEDS: CAPSAICIN 0.025% CR 60 GM TOP SCH ×2 (08:38→20:45)
[2022-12-30] MEDS: NYSTATIN 100,000 UNITS/GM TOPICAL PWD 15GM TOP SCH ×2 (08:38→20:42)
[2022-12-30] MEDS ORDERED: VANCOMYCIN HCL 750 MG, VIAL MATE ADAPTER 1 EACH in D5W 250 ML IV SCH ×2 (09:00→10:00)
[2022-12-30] MEDS ORDERED: LEVEMIR (INSULIN DETEMIR) 1 UNITS/0.01ML SC SCH (09:00)
[2022-12-30] MEDS ORDERED: MORPHINE 4 MG/ML 1ML VIAL IV ONE (13:20)
[2022-12-30 14:00] VITALS: BP 107/65
[2022-12-30 19:50] VITALS: BP 148/82
[2022-12-30] MEDS: ADVAIR HFA 115/21MCG INHALER INH SCH (20:27)
[2022-12-30] MEDS: rOPINIRole 2MG TAB PO SCH (20:41)
[2022-12-30] MEDS: MORPHINE 2 MG/ML 1ML VIAL IV PRN (22:55)
[2022-12-31] MEDS: oxyCODONE 5MG TAB PO PRN ×3 (01:01→17:11)
[2022-12-31] MEDS: MORPHINE 2 MG/ML 1ML VIAL IV PRN ×2 (03:01→21:06)
[2022-12-31] MEDS ORDERED: hydrOXYzine 50 MG TAB PO ONE (04:00)
[2022-12-31 04:21] VITALS: BP 152/81
[2022-12-31] MEDS: LEVOTHYROXINE 50MCG TABLET (0.05MG) PO SCH (05:54)
[2022-12-31] MEDS: ACETAMINOPHEN TAB 650MG DOSE (2X325MG) PO PRN ×2 (05:55→13:17)
[2022-12-31] MEDS ORDERED: LIDOCAINE 1% MDV 20ML VIAL SC ONE (06:00)
[2022-12-31 06:31] LABS: BASO % 0.6 % (0.0-1.0); EOS # 0.1 10^3/uL (0.0-0.5); EOS % 3.2 % (0.0-3.0); HEMATOCRIT 35.7 % (36.0-47.0); HEMOGLOBIN 11.4 g/dl (12.0-15.5); LYMPH # 0.8 10^3/uL (1.5-5.0); MEAN CORPUSCULAR HEMOGLOBIN 29.2 pg (27.0-33.0); MEAN CORPUSCULAR HGB CONC 31.9 g/dl (32.0-36.5); MEAN CORPUSCULAR VOLUME 91.3 fl (80.0-96.0); MONO # 0.2 10^3/uL (0.0-0.8); MONO % 6.2 % (2.0-8.0); NEUTROPHILS # 2.3 10^3/uL (1.5-8.5); PLATELET COUNT, AUTOMATED 152 10^3/uL (150-450); RED BLOOD COUNT 3.91 10^6/uL (4.00-5.40); WHITE BLOOD COUNT 3.4 10^3/uL (4.0-10.0)
[2022-12-31 06:59] LABS: CALCIUM LEVEL 7.8 MG/DL (8.3-10.6); CREATININE FOR GFR 1.03 MG/DL (0.55-1.30); GLOMERULAR FILTRATION RATE 56.7 (>45); POTASSIUM SERUM 3.9 MMOL/L (3.5-5.1)
[2022-12-31] MEDS: ADVAIR HFA 115/21MCG INHALER INH SCH ×2 (07:57→20:20)
[2022-12-31] MEDS ORDERED: LEVEMIR (INSULIN DETEMIR) 1 UNITS/0.01ML SC SCH ×2 (09:00)
[2022-12-31] MEDS: ANUSOL HC CREAM 30GM TOP SCH (09:00)
[2022-12-31] MEDS: METOPROLOL TART 25 MG TABLET PO SCH ×2 (09:00→21:13)
[2022-12-31] MEDS: POTASSIUM CHLORIDE 10MEQ SR TABLET PO SCH ×2 (09:16→21:13)
[2022-12-31] MEDS: ASPIRIN 81MG CHEW TABLET PO SCH (09:17)
[2022-12-31] MEDS: SENNA 8.6 MG TAB (SENOKOT) PO SCH (09:17)
[2022-12-31] MEDS: rifAXIMin 550 MG TAB (XIFAXAN) PO SCH ×2 (09:17→21:12)
[2022-12-31] MEDS: INSULIN LISPRO (NovoLOG) PER UNIT SC SCH ×4 (09:17→22:54)
[2022-12-31] MEDS: CETIRIZINE (ZyrTEC) 10 MG TAB PO SCH (09:18)
[2022-12-31] MEDS: DULoxetine 30MG CAPSULE (CYMBALTA) PO SCH ×2 (09:18→21:12)
[2022-12-31] MEDS: GABAPENTIN 300 MG CAP PO SCH ×2 (09:18→21:12)
[2022-12-31] MEDS: ATORVASTATIN 20 MG TAB PO SCH (09:19)
[2022-12-31] MEDS: SODIUM CHLORIDE NASAL 0.65% SPRAY BTL (OCEAN) SCH ×3 (09:19→21:14)
[2022-12-31] MEDS: TORSEMIDE 20 MG TAB PO SCH ×2 (09:19→17:11)
[2022-12-31] MEDS: FERROUS GLUCONATE 324 MG TAB PO SCH (09:19)
[2022-12-31] MEDS: NYSTATIN 100,000 UNITS/GM TOPICAL PWD 15GM TOP SCH ×2 (09:20→21:14)
[2022-12-31] MEDS: CAPSAICIN 0.025% CR 60 GM TOP SCH ×2 (09:20→21:14)
[2022-12-31 16:00] VITALS: BP 112/56
[2022-12-31] MEDS: rOPINIRole 2MG TAB PO SCH (21:12)
[2022-12-31 22:00] VITALS: BP 121/61
[2023-01-01] MEDS: oxyCODONE 5MG TAB PO PRN ×4 (00:20→22:47)
[2023-01-01] MEDS: LIDOCAINE 5% (LIDODERM) PATCH TD PRN (02:26)
[2023-01-01] MEDS: LEVOTHYROXINE 50MCG TABLET (0.05MG) PO SCH (05:35)
[2023-01-01] MEDS: MORPHINE 2 MG/ML 1ML VIAL IV PRN (05:44)
[2023-01-01 06:00] VITALS: BP 121/72
[2023-01-01 06:04] LABS: BASO % 0.4 % (0.0-1.0); EOS # 0.2 10^3/uL (0.0-0.5); EOS % 3.2 % (0.0-3.0); HEMATOCRIT 36.2 % (36.0-47.0); HEMOGLOBIN 11.5 g/dl (12.0-15.5); LYMPH % 21.6 % (24.0-44.0); MEAN CORPUSCULAR HEMOGLOBIN 29.1 pg (27.0-33.0); MEAN CORPUSCULAR HGB CONC 31.8 g/dl (32.0-36.5); MEAN CORPUSCULAR VOLUME 91.6 fl (80.0-96.0); MONO # 0.4 10^3/uL (0.0-0.8); MONO % 8.1 % (2.0-8.0); NEUTROPHILS # 3.1 10^3/uL (1.5-8.5); NEUTROPHILS % 66.5 % (36.0-66.0); PLATELET COUNT, AUTOMATED 166 10^3/uL (150-450); RED BLOOD COUNT 3.95 10^6/uL (4.00-5.40); WHITE BLOOD COUNT 4.7 10^3/uL (4.0-10.0)
[2023-01-01 06:30] LABS: CALCIUM LEVEL 8.3 MG/DL (8.3-10.6); GLOMERULAR FILTRATION RATE 58.7 (>45)
[2023-01-01] MEDS: INSULIN LISPRO (NovoLOG) PER UNIT SC SCH ×4 (08:19→21:00)
[2023-01-01] MEDS: ASPIRIN 81MG CHEW TABLET PO SCH (08:20)
[2023-01-01] MEDS: SENNA 8.6 MG TAB (SENOKOT) PO SCH (08:20)
[2023-01-01] MEDS: GABAPENTIN 300 MG CAP PO SCH (08:20)
[2023-01-01] MEDS: LEVEMIR (INSULIN DETEMIR) 1 UNITS/0.01ML SC SCH (08:20)
[2023-01-01] MEDS: POTASSIUM CHLORIDE 10MEQ SR TABLET PO SCH ×2 (08:20→20:52)
[2023-01-01] MEDS: ATORVASTATIN 20 MG TAB PO SCH (08:20)
[2023-01-01] MEDS: FERROUS GLUCONATE 324 MG TAB PO SCH (08:20)
[2023-01-01] MEDS: rifAXIMin 550 MG TAB (XIFAXAN) PO SCH ×2 (08:20→20:53)
[2023-01-01] MEDS: TORSEMIDE 20 MG TAB PO SCH ×2 (08:21→16:19)
[2023-01-01] MEDS: CETIRIZINE (ZyrTEC) 10 MG TAB PO SCH (08:21)
[2023-01-01] MEDS: SODIUM CHLORIDE NASAL 0.65% SPRAY BTL (OCEAN) SCH ×3 (08:21→21:07)
[2023-01-01] MEDS: DULoxetine 30MG CAPSULE (CYMBALTA) PO SCH ×2 (08:21→20:53)
[2023-01-01] MEDS: NYSTATIN 100,000 UNITS/GM TOPICAL PWD 15GM TOP SCH ×2 (08:21→21:07)
[2023-01-01] MEDS: CAPSAICIN 0.025% CR 60 GM TOP SCH ×2 (08:22→21:07)
[2023-01-01] MEDS: METOPROLOL TART 25 MG TABLET PO SCH ×2 (08:25→20:53)
[2023-01-01] MEDS: ADVAIR HFA 115/21MCG INHALER INH SCH ×2 (08:33→20:21)
[2023-01-01] MEDS: ANUSOL HC CREAM 30GM TOP SCH (09:00)
[2023-01-01] MEDS ORDERED: methylPREDNISolone 40MG 1ML VIAL IV ONE (10:00)
[2023-01-01] MEDS: ACETAMINOPHEN 325 MG TAB PO SCH ×3 (12:20→23:36)
[2023-01-01 14:00] VITALS: BP 117/71
[2023-01-01] MEDS ORDERED: INSULIN LISPRO (NovoLOG) PER UNIT SC STA ×3 (16:37→22:35)
[2023-01-01] MEDS ORDERED: INSULIN LISPRO (NovoLOG) PER UNIT SC ONE ×2 (19:10→20:40)
[2023-01-01] MEDS ORDERED: SODIUM CHLORIDE 0.9% 1000ML IV ONE (19:10)
[2023-01-01 19:36] LABS: CALCIUM LEVEL 7.8 MG/DL (8.3-10.6); CREATININE FOR GFR 1.14 MG/DL (0.55-1.30); GLOMERULAR FILTRATION RATE 50.5 (>45)
[2023-01-01] MEDS: rOPINIRole 2MG TAB PO SCH (20:49)
[2023-01-01] MEDS: GABAPENTIN 400MG CAP PO SCH (20:49)
[2023-01-01] MEDS: NS 1,000 ML IV SCH (20:56)
[2023-01-01 21:00] VITALS: BP 121/69
[2023-01-01] MEDS ORDERED: GABAPENTIN 300 MG CAP PO SCH (21:00)
[2023-01-01] MEDS ORDERED: HumuLIN R (REGULAR) INSULIN (NovoLIN R) **100U/ML** PER UNIT SC STA (22:53)
[2023-01-02] MEDS ORDERED: INSULIN LISPRO (NovoLOG) PER UNIT SC ONE (00:40)
[2023-01-02] MEDS: NS 1,000 ML IV SCH (03:51)
[2023-01-02 06:00] VITALS: BP 118/69
[2023-01-02] MEDS: oxyCODONE 5MG TAB PO PRN ×3 (06:00→16:07)
[2023-01-02] MEDS: LEVOTHYROXINE 50MCG TABLET (0.05MG) PO SCH (06:00)
[2023-01-02] MEDS: ACETAMINOPHEN 325 MG TAB PO SCH ×4 (06:01→23:04)
[2023-01-02 06:23] LABS: BASO % 0.2 % (0.0-1.0); EOS % 0.1 % (0.0-3.0); HEMATOCRIT 34.1 % (36.0-47.0); HEMOGLOBIN 11.2 g/dl (12.0-15.5); LYMPH % 11.4 % (24.0-44.0); MEAN CORPUSCULAR HEMOGLOBIN 30.1 pg (27.0-33.0); MEAN CORPUSCULAR HGB CONC 32.8 g/dl (32.0-36.5); MEAN CORPUSCULAR VOLUME 91.7 fl (80.0-96.0); MONO # 0.5 10^3/uL (0.0-0.8); MONO % 6.3 % (2.0-8.0); NEUTROPHILS # 6.8 10^3/uL (1.5-8.5); NEUTROPHILS % 81.5 % (36.0-66.0); PLATELET COUNT, AUTOMATED 168 10^3/uL (150-450); RED BLOOD COUNT 3.72 10^6/uL (4.00-5.40); WHITE BLOOD COUNT 8.4 10^3/uL (4.0-10.0)
[2023-01-02 06:40] LABS: CALCIUM LEVEL 7.7 MG/DL (8.3-10.6); CREATININE FOR GFR 1.18 MG/DL (0.55-1.30); GLOMERULAR FILTRATION RATE 48.5 (>45); POTASSIUM SERUM 3.8 MMOL/L (3.5-5.1)
[2023-01-02] MEDS: ADVAIR HFA 115/21MCG INHALER INH SCH ×2 (08:14→21:14)
[2023-01-02] MEDS: LEVEMIR (INSULIN DETEMIR) 1 UNITS/0.01ML SC SCH ×2 (08:25→22:00)
[2023-01-02] MEDS: SENNA 8.6 MG TAB (SENOKOT) PO SCH (08:26)
[2023-01-02] MEDS: INSULIN LISPRO (NovoLOG) PER UNIT SC SCH ×6 (08:26→22:00)
[2023-01-02] MEDS: rifAXIMin 550 MG TAB (XIFAXAN) PO SCH ×2 (08:27→22:05)
[2023-01-02] MEDS: POTASSIUM CHLORIDE 10MEQ SR TABLET PO SCH ×2 (08:27→22:11)
[2023-01-02] MEDS: ATORVASTATIN 20 MG TAB PO SCH (08:27)
[2023-01-02] MEDS: GABAPENTIN 400MG CAP PO SCH ×2 (08:27→22:05)
[2023-01-02] MEDS: ASPIRIN 81MG CHEW TABLET PO SCH (08:28)
[2023-01-02] MEDS: CETIRIZINE (ZyrTEC) 10 MG TAB PO SCH (08:28)
[2023-01-02] MEDS: ANUSOL HC CREAM 30GM TOP SCH (08:28)
[2023-01-02] MEDS: FERROUS GLUCONATE 324 MG TAB PO SCH (08:28)
[2023-01-02] MEDS: CAPSAICIN 0.025% CR 60 GM TOP SCH ×2 (08:28→21:57)
[2023-01-02] MEDS: DULoxetine 30MG CAPSULE (CYMBALTA) PO SCH ×2 (08:28→22:06)
[2023-01-02] MEDS: NYSTATIN 100,000 UNITS/GM TOPICAL PWD 15GM TOP SCH ×2 (08:28→22:11)
[2023-01-02] MEDS: SODIUM CHLORIDE NASAL 0.65% SPRAY BTL (OCEAN) SCH ×3 (08:28→21:58)
[2023-01-02] MEDS: TORSEMIDE 20 MG TAB PO SCH ×2 (08:29→16:48)
[2023-01-02] MEDS: METOPROLOL TART 25 MG TABLET PO SCH ×2 (08:29→22:05)
[2023-01-02 09:01] LABS: HEMOGLOBIN A1c 11.8 % (4.0-6.0)
[2023-01-02] MEDS: LIDOCAINE 5% (LIDODERM) PATCH TD PRN (10:06)
[2023-01-02] MEDS: CALCIUM CARBONATE 500 MG CHEW U/D PO PRN (10:07)
[2023-01-02 14:00] VITALS: BP 115/52
[2023-01-02] MEDS: POLYVINYL ALCOHOL OPHTH SOLN 15ML (LIQUITEARS) OU PRN ×2 (16:05→21:58)
[2023-01-02] MEDS: METAMUCIL (PSYLLIUM) PACKET PO SCH (17:35)
[2023-01-02] MEDS ORDERED: NALOXONE 2MG/2ML SYRINGE PRN (17:35)
[2023-01-02] MEDS: MIRALAX *UNIT DOSE* 17GM PACKET PO SCH (17:35)
[2023-01-02 20:00] VITALS: BP 120/65
[2023-01-02] MEDS: rOPINIRole 2MG TAB PO SCH (22:22)
[2023-01-03] MEDS: oxyCODONE 5MG TAB PO PRN ×2 (00:38→21:51)
[2023-01-03] MEDS: CALCIUM CARBONATE 500 MG CHEW U/D PO PRN (02:49)
[2023-01-03] MEDS ORDERED: INSULIN LISPRO (NovoLOG) PER UNIT SC ONE (04:05)
[2023-01-03] MEDS: ACETAMINOPHEN 325 MG TAB PO SCH ×4 (05:11→23:49)
[2023-01-03] MEDS: LEVOTHYROXINE 50MCG TABLET (0.05MG) PO SCH (05:12)
[2023-01-03 06:00] VITALS: BP 110/55
[2023-01-03 06:07] LABS: BASO % 0.9 % (0.0-1.0); EOS # 0.2 10^3/uL (0.0-0.5); HEMATOCRIT 32.4 % (36.0-47.0); HEMOGLOBIN 10.2 g/dl (12.0-15.5); LYMPH # 1.1 10^3/uL (1.5-5.0); LYMPH % 25.6 % (24.0-44.0); MEAN CORPUSCULAR HEMOGLOBIN 29.2 pg (27.0-33.0); MEAN CORPUSCULAR HGB CONC 31.5 g/dl (32.0-36.5); MEAN CORPUSCULAR VOLUME 92.8 fl (80.0-96.0); MONO # 0.2 10^3/uL (0.0-0.8); MONO % 5.6 % (2.0-8.0); NEUTROPHILS # 2.7 10^3/uL (1.5-8.5); NEUTROPHILS % 63.7 % (36.0-66.0); PLATELET COUNT, AUTOMATED 121 10^3/uL (150-450); RED BLOOD COUNT 3.49 10^6/uL (4.00-5.40); WHITE BLOOD COUNT 4.3 10^3/uL (4.0-10.0)
[2023-01-03 06:37] LABS: CALCIUM LEVEL 7.8 MG/DL (8.3-10.6); CREATININE FOR GFR 1.07 MG/DL (0.55-1.30); GLOMERULAR FILTRATION RATE 54.3 (>45); POTASSIUM SERUM 3.9 MMOL/L (3.5-5.1)
[2023-01-03 08:36] VITALS: O2SAT 96
[2023-01-03] MEDS: ADVAIR HFA 115/21MCG INHALER INH SCH ×2 (08:36→21:02)
[2023-01-03] MEDS: METOPROLOL TART 25 MG TABLET PO SCH ×2 (09:00→21:00)
[2023-01-03] MEDS: FLEET OIL RETENTION ENEMA PR SCH (09:00)
[2023-01-03] MEDS: ANUSOL HC CREAM 30GM TOP SCH (09:00)
[2023-01-03] MEDS: CAPSAICIN 0.025% CR 60 GM TOP SCH ×2 (09:00→21:47)
[2023-01-03] MEDS: MIRALAX *UNIT DOSE* 17GM PACKET PO SCH ×2 (09:01→21:44)
[2023-01-03] MEDS: NYSTATIN 100,000 UNITS/GM TOPICAL PWD 15GM TOP SCH ×2 (09:01→21:47)
[2023-01-03] MEDS: METAMUCIL (PSYLLIUM) PACKET PO SCH ×2 (09:01→21:51)
[2023-01-03] MEDS: LEVEMIR (INSULIN DETEMIR) 1 UNITS/0.01ML SC SCH ×3 (09:02→21:45)
[2023-01-03] MEDS: POLYVINYL ALCOHOL OPHTH SOLN 15ML (LIQUITEARS) OU PRN ×2 (09:02→17:54)
[2023-01-03] MEDS: SODIUM CHLORIDE NASAL 0.65% SPRAY BTL (OCEAN) SCH ×3 (09:02→21:45)
[2023-01-03] MEDS: INSULIN LISPRO (NovoLOG) PER UNIT SC SCH ×7 (09:03→21:46)
[2023-01-03] MEDS: DULoxetine 30MG CAPSULE (CYMBALTA) PO SCH ×2 (09:04→21:44)
[2023-01-03] MEDS: rifAXIMin 550 MG TAB (XIFAXAN) PO SCH ×2 (09:04→21:46)
[2023-01-03] MEDS: FERROUS GLUCONATE 324 MG TAB PO SCH (09:04)
[2023-01-03] MEDS: ATORVASTATIN 20 MG TAB PO SCH (09:04)
[2023-01-03] MEDS: ASPIRIN 81MG CHEW TABLET PO SCH (09:05)
[2023-01-03] MEDS: CETIRIZINE (ZyrTEC) 10 MG TAB PO SCH (09:05)
[2023-01-03] MEDS: POTASSIUM CHLORIDE 10MEQ SR TABLET PO SCH ×2 (09:05→21:45)
[2023-01-03] MEDS: GABAPENTIN 400MG CAP PO SCH ×2 (09:05→21:44)
[2023-01-03] MEDS: SENNA 8.6 MG TAB (SENOKOT) PO SCH (09:05)
[2023-01-03] MEDS: TORSEMIDE 20 MG TAB PO SCH ×2 (09:08→17:52)
[2023-01-03 14:00] VITALS: BP 105/57
[2023-01-03] MEDS: rOPINIRole 2MG TAB PO SCH (21:46)
[2023-01-03 22:00] VITALS: BP 118/68
[2023-01-04] MEDS: LEVOTHYROXINE 50MCG TABLET (0.05MG) PO SCH (05:04)
[2023-01-04] MEDS: ACETAMINOPHEN 325 MG TAB PO SCH ×3 (05:08→17:44)
[2023-01-04 05:59] VITALS: BP 130/70
[2023-01-04 06:11] LABS: BASO % 0.7 % (0.0-1.0); EOS # 0.2 10^3/uL (0.0-0.5); HEMATOCRIT 33.5 % (36.0-47.0); HEMOGLOBIN 10.3 g/dl (12.0-15.5); LYMPH # 1.1 10^3/uL (1.5-5.0); LYMPH % 26.1 % (24.0-44.0); MEAN CORPUSCULAR HEMOGLOBIN 29.3 pg (27.0-33.0); MEAN CORPUSCULAR HGB CONC 30.7 g/dl (32.0-36.5); MEAN CORPUSCULAR VOLUME 95.2 fl (80.0-96.0); MONO # 0.4 10^3/uL (0.0-0.8); MONO % 9.2 % (2.0-8.0); NEUTROPHILS # 2.4 10^3/uL (1.5-8.5); NEUTROPHILS % 58.8 % (36.0-66.0); PLATELET COUNT, AUTOMATED 126 10^3/uL (150-450); RED BLOOD COUNT 3.52 10^6/uL (4.00-5.40)
[2023-01-04 06:35] LABS: CALCIUM LEVEL 7.8 MG/DL (8.3-10.6); CREATININE FOR GFR 1.13 MG/DL (0.55-1.30); POTASSIUM SERUM 4.5 MMOL/L (3.5-5.1)
[2023-01-04] MEDS: ADVAIR HFA 115/21MCG INHALER INH SCH ×2 (07:33→21:16)
[2023-01-04] MEDS: METOPROLOL TART 25 MG TABLET PO SCH ×2 (09:00→21:00)
[2023-01-04] MEDS ORDERED: DULAGLUTIDE 1.5 MG SQ SCH (09:00)
[2023-01-04] MEDS: FLEET OIL RETENTION ENEMA PR SCH (09:00)
[2023-01-04] MEDS: ANUSOL HC CREAM 30GM TOP SCH (09:00)
[2023-01-04] MEDS: INSULIN LISPRO (NovoLOG) PER UNIT SC SCH ×7 (09:35→21:00)
[2023-01-04] MEDS: LEVEMIR (INSULIN DETEMIR) 1 UNITS/0.01ML SC SCH ×2 (09:36→22:01)
[2023-01-04] MEDS: MIRALAX *UNIT DOSE* 17GM PACKET PO SCH ×2 (09:36→22:00)
[2023-01-04] MEDS: DULoxetine 30MG CAPSULE (CYMBALTA) PO SCH ×2 (09:37→21:57)
[2023-01-04] MEDS: DAPAGLIFLOZIN PROPANEDIOL 10MG TABLET (FARXIGA) PO SCH (09:37)
[2023-01-04] MEDS: rifAXIMin 550 MG TAB (XIFAXAN) PO SCH ×2 (09:37→22:01)
[2023-01-04] MEDS: POTASSIUM CHLORIDE 10MEQ SR TABLET PO SCH ×2 (09:37→21:59)
[2023-01-04] MEDS: SENNA 8.6 MG TAB (SENOKOT) PO SCH (09:37)
[2023-01-04] MEDS: ATORVASTATIN 20 MG TAB PO SCH (09:38)
[2023-01-04] MEDS: FERROUS GLUCONATE 324 MG TAB PO SCH (09:38)
[2023-01-04] MEDS: ASPIRIN 81MG CHEW TABLET PO SCH (09:38)
[2023-01-04] MEDS: METAMUCIL (PSYLLIUM) PACKET PO SCH ×2 (09:38→21:00)
[2023-01-04] MEDS: GABAPENTIN 400MG CAP PO SCH ×2 (09:38→21:57)
[2023-01-04] MEDS: TORSEMIDE 20 MG TAB PO SCH ×2 (09:38→17:44)
[2023-01-04] MEDS: SODIUM CHLORIDE NASAL 0.65% SPRAY BTL (OCEAN) SCH ×3 (09:39→22:03)
[2023-01-04] MEDS: NYSTATIN 100,000 UNITS/GM TOPICAL PWD 15GM TOP SCH ×2 (09:40→22:03)
[2023-01-04] MEDS: CAPSAICIN 0.025% CR 60 GM TOP SCH ×2 (09:40→22:03)
[2023-01-04] MEDS: CALCIUM CARBONATE 500 MG CHEW U/D PO PRN (12:45)
[2023-01-04 14:00] VITALS: BP 124/70
[2023-01-04 20:50] VITALS: BP 126/71
[2023-01-04] MEDS: oxyCODONE 5MG TAB PO PRN (22:02)
[2023-01-05] MEDS: rOPINIRole 2MG TAB PO SCH ×2 (01:04→21:00)
[2023-01-05] MEDS: ACETAMINOPHEN 325 MG TAB PO SCH ×4 (01:05→18:03)
[2023-01-05] MEDS: LEVOTHYROXINE 50MCG TABLET (0.05MG) PO SCH (05:27)
[2023-01-05 06:00] VITALS: BP 141/70
[2023-01-05 06:37] LABS: EOS # 0.2 10^3/uL (0.0-0.5); EOS % 4.3 % (0.0-3.0); HEMATOCRIT 33.2 % (36.0-47.0); HEMOGLOBIN 10.5 g/dl (12.0-15.5); LYMPH % 24.7 % (24.0-44.0); MEAN CORPUSCULAR HEMOGLOBIN 29.3 pg (27.0-33.0); MEAN CORPUSCULAR HGB CONC 31.6 g/dl (32.0-36.5); MEAN CORPUSCULAR VOLUME 92.7 fl (80.0-96.0); MONO # 0.3 10^3/uL (0.0-0.8); MONO % 6.8 % (2.0-8.0); NEUTROPHILS # 2.5 10^3/uL (1.5-8.5); NEUTROPHILS % 62.4 % (36.0-66.0); PLATELET COUNT, AUTOMATED 133 10^3/uL (150-450); RED BLOOD COUNT 3.58 10^6/uL (4.00-5.40)
[2023-01-05 06:56] LABS: C REACTIVE PROTEIN QUANTITATIV 1.1 MG/DL (<1.0)
[2023-01-05 06:57] LABS: CALCIUM LEVEL 8.1 MG/DL (8.3-10.6); CREATININE FOR GFR 0.99 MG/DL (0.55-1.30); GLOMERULAR FILTRATION RATE 59.4 (>45)
[2023-01-05 07:26] LABS: ERYTHROCYTE SEDIMENTATION RATE 85 mm/hr (0-30)
[2023-01-05] MEDS: ADVAIR HFA 115/21MCG INHALER INH SCH ×2 (07:41→21:11)
[2023-01-05] MEDS: FLEET OIL RETENTION ENEMA PR SCH (09:00)
[2023-01-05] MEDS: ANUSOL HC CREAM 30GM TOP SCH (09:00)
[2023-01-05] MEDS: POTASSIUM CHLORIDE 10MEQ SR TABLET PO SCH ×2 (09:50→22:07)
[2023-01-05] MEDS: DAPAGLIFLOZIN PROPANEDIOL 10MG TABLET (FARXIGA) PO SCH (09:50)
[2023-01-05] MEDS: ASPIRIN 81MG CHEW TABLET PO SCH (09:50)
[2023-01-05] MEDS: SENNA 8.6 MG TAB (SENOKOT) PO SCH (09:50)
[2023-01-05] MEDS: TORSEMIDE 20 MG TAB PO SCH ×2 (09:50→18:03)
[2023-01-05] MEDS: rifAXIMin 550 MG TAB (XIFAXAN) PO SCH ×2 (09:50→22:07)
[2023-01-05] MEDS: DULoxetine 30MG CAPSULE (CYMBALTA) PO SCH ×2 (09:50→22:07)
[2023-01-05] MEDS: FERROUS GLUCONATE 324 MG TAB PO SCH (09:50)
[2023-01-05] MEDS: GABAPENTIN 400MG CAP PO SCH ×2 (09:51→22:07)
[2023-01-05] MEDS: MIRALAX *UNIT DOSE* 17GM PACKET PO SCH ×2 (09:51→22:07)
[2023-01-05] MEDS: ATORVASTATIN 20 MG TAB PO SCH (09:51)
[2023-01-05] MEDS: LEVEMIR (INSULIN DETEMIR) 1 UNITS/0.01ML SC SCH ×2 (09:51→22:08)
[2023-01-05] MEDS: METOPROLOL TART 25 MG TABLET PO SCH ×2 (09:51→21:00)
[2023-01-05] MEDS: METAMUCIL (PSYLLIUM) PACKET PO SCH ×2 (09:52→21:00)
[2023-01-05] MEDS: INSULIN LISPRO (NovoLOG) PER UNIT SC SCH ×7 (09:52→21:00)
[2023-01-05] MEDS: CAPSAICIN 0.025% CR 60 GM TOP SCH ×2 (09:53→22:09)
[2023-01-05] MEDS: NYSTATIN 100,000 UNITS/GM TOPICAL PWD 15GM TOP SCH ×2 (09:53→22:08)
[2023-01-05] MEDS: SODIUM CHLORIDE NASAL 0.65% SPRAY BTL (OCEAN) SCH ×3 (09:53→22:09)
[2023-01-05] MEDS: CALCIUM CARBONATE 500 MG CHEW U/D PO PRN (10:52)
[2023-01-05] MEDS: oxyCODONE 5MG TAB PO PRN ×2 (11:57→18:08)
[2023-01-05] MEDS ORDERED: CALCIUM CARBONATE 500 MG CHEW U/D PO PRN (12:05)
[2023-01-05] MEDS: OMEPRAZOLE 20MG CAP PO SCH (12:31)
[2023-01-05 13:51] VITALS: BP 138/77
[2023-01-05] MEDS: HEPARIN SOD (PORCINE) 5000UNITS/ML 1ML VIAL/SYRINGE SQ SCH ×2 (14:38→22:06)
[2023-01-05 21:00] VITALS: BP 102/56
[2023-01-05] MEDS: POLYVINYL ALCOHOL OPHTH SOLN 15ML (LIQUITEARS) OU PRN (22:08)
[2023-01-06] MEDS: oxyCODONE 5MG TAB PO PRN ×3 (01:01→15:53)
[2023-01-06 05:20] VITALS: BP 126/68
[2023-01-06] MEDS: LEVOTHYROXINE 50MCG TABLET (0.05MG) PO SCH (05:42)
[2023-01-06] MEDS: ACETAMINOPHEN 325 MG TAB PO SCH ×4 (05:43→18:12)
[2023-01-06] MEDS: HEPARIN SOD (PORCINE) 5000UNITS/ML 1ML VIAL/SYRINGE SQ SCH ×3 (05:43→22:32)
[2023-01-06 06:33] LABS: BASO % 1.1 % (0.0-1.0); EOS # 0.2 10^3/uL (0.0-0.5); EOS % 4.9 % (0.0-3.0); HEMOGLOBIN 10.3 g/dl (12.0-15.5); LYMPH # 0.9 10^3/uL (1.5-5.0); LYMPH % 23.6 % (24.0-44.0); MEAN CORPUSCULAR HEMOGLOBIN 29.1 pg (27.0-33.0); MEAN CORPUSCULAR HGB CONC 31.2 g/dl (32.0-36.5); MEAN CORPUSCULAR VOLUME 93.2 fl (80.0-96.0); MONO # 0.2 10^3/uL (0.0-0.8); MONO % 6.3 % (2.0-8.0); NEUTROPHILS # 2.3 10^3/uL (1.5-8.5); NEUTROPHILS % 63.6 % (36.0-66.0); PLATELET COUNT, AUTOMATED 110 10^3/uL (150-450); RED BLOOD COUNT 3.54 10^6/uL (4.00-5.40); WHITE BLOOD COUNT 3.7 10^3/uL (4.0-10.0)
[2023-01-06 07:05] LABS: C REACTIVE PROTEIN QUANTITATIV 1.4 MG/DL (<1.0)
[2023-01-06 07:06] LABS: CALCIUM LEVEL 7.8 MG/DL (8.3-10.6); CREATININE FOR GFR 1.1 MG/DL (0.55-1.30); GLOMERULAR FILTRATION RATE 52.6 (>45); POTASSIUM SERUM 4.1 MMOL/L (3.5-5.1)
[2023-01-06 07:29] LABS: ERYTHROCYTE SEDIMENTATION RATE 116 mm/hr (0-30)
[2023-01-06] MEDS: ADVAIR HFA 115/21MCG INHALER INH SCH ×2 (07:50→21:04)
[2023-01-06] MEDS: ANUSOL HC CREAM 30GM TOP SCH (09:00)
[2023-01-06] MEDS: FLEET OIL RETENTION ENEMA PR SCH (09:00)
[2023-01-06] MEDS: METAMUCIL (PSYLLIUM) PACKET PO SCH ×2 (09:00→21:00)
[2023-01-06] MEDS: MIRALAX *UNIT DOSE* 17GM PACKET PO SCH ×2 (10:04→22:34)
[2023-01-06] MEDS: OMEPRAZOLE 20MG CAP PO SCH (10:05)
[2023-01-06] MEDS: POTASSIUM CHLORIDE 10MEQ SR TABLET PO SCH ×2 (10:05→22:33)
[2023-01-06] MEDS: SENNA 8.6 MG TAB (SENOKOT) PO SCH (10:06)
[2023-01-06] MEDS: rifAXIMin 550 MG TAB (XIFAXAN) PO SCH ×2 (10:06→22:33)
[2023-01-06] MEDS: ASPIRIN 81MG CHEW TABLET PO SCH (10:06)
[2023-01-06] MEDS: DAPAGLIFLOZIN PROPANEDIOL 10MG TABLET (FARXIGA) PO SCH (10:06)
[2023-01-06] MEDS: TORSEMIDE 20 MG TAB PO SCH ×2 (10:06→18:13)
[2023-01-06] MEDS: DULoxetine 30MG CAPSULE (CYMBALTA) PO SCH ×2 (10:06→22:33)
[2023-01-06] MEDS: METOPROLOL TART 25 MG TABLET PO SCH ×2 (10:06→21:00)
[2023-01-06] MEDS: GABAPENTIN 400MG CAP PO SCH ×2 (10:07→22:33)
[2023-01-06] MEDS: FERROUS GLUCONATE 324 MG TAB PO SCH (10:07)
[2023-01-06] MEDS: ATORVASTATIN 20 MG TAB PO SCH (10:07)
[2023-01-06] MEDS: CAPSAICIN 0.025% CR 60 GM TOP SCH ×2 (10:09→22:36)
[2023-01-06] MEDS: INSULIN LISPRO (NovoLOG) PER UNIT SC SCH ×7 (10:10→21:00)
[2023-01-06] MEDS: LEVEMIR (INSULIN DETEMIR) 1 UNITS/0.01ML SC SCH ×2 (10:10→22:35)
[2023-01-06] MEDS: NYSTATIN 100,000 UNITS/GM TOPICAL PWD 15GM TOP SCH ×2 (10:10→22:35)
[2023-01-06] MEDS: SODIUM CHLORIDE NASAL 0.65% SPRAY BTL (OCEAN) SCH ×3 (10:10→21:00)
[2023-01-06 14:00] VITALS: BP 94/47
[2023-01-06] MEDS: rOPINIRole 2MG TAB PO SCH (22:33)
[2023-01-07] MEDS: oxyCODONE 5MG TAB PO PRN ×3 (01:09→23:49)
[2023-01-07 05:39] VITALS: BP 115/71
[2023-01-07] MEDS: ACETAMINOPHEN 325 MG TAB PO SCH ×5 (05:53→22:17)
[2023-01-07] MEDS: HEPARIN SOD (PORCINE) 5000UNITS/ML 1ML VIAL/SYRINGE SQ SCH ×3 (05:53→22:19)
[2023-01-07] MEDS: LEVOTHYROXINE 50MCG TABLET (0.05MG) PO SCH (05:53)
[2023-01-07 06:13] LABS: BASO % 0.8 % (0.0-1.0); EOS # 0.2 10^3/uL (0.0-0.5); EOS % 4.8 % (0.0-3.0); HEMATOCRIT 35.2 % (36.0-47.0); HEMOGLOBIN 10.7 g/dl (12.0-15.5); LYMPH # 0.9 10^3/uL (1.5-5.0); LYMPH % 23.3 % (24.0-44.0); MEAN CORPUSCULAR HEMOGLOBIN 29.2 pg (27.0-33.0); MEAN CORPUSCULAR HGB CONC 30.4 g/dl (32.0-36.5); MEAN CORPUSCULAR VOLUME 95.9 fl (80.0-96.0); MONO # 0.3 10^3/uL (0.0-0.8); MONO % 7.1 % (2.0-8.0); NEUTROPHILS # 2.5 10^3/uL (1.5-8.5); NEUTROPHILS % 63.5 % (36.0-66.0); PLATELET COUNT, AUTOMATED 107 10^3/uL (150-450); RED BLOOD COUNT 3.67 10^6/uL (4.00-5.40)
[2023-01-07 06:32] LABS: ERYTHROCYTE SEDIMENTATION RATE 112 mm/hr (0-30)
[2023-01-07 06:34] LABS: CALCIUM LEVEL 7.7 MG/DL (8.3-10.6); CREATININE FOR GFR 1.33 MG/DL (0.55-1.30); GLOMERULAR FILTRATION RATE 42.2 (>45); POTASSIUM SERUM 4.2 MMOL/L (3.5-5.1)
[2023-01-07] MEDS ORDERED: INSULIN LISPRO (NovoLOG) PER UNIT SC SCH (07:30)
[2023-01-07] MEDS: ADVAIR HFA 115/21MCG INHALER INH SCH ×2 (07:52→21:28)
[2023-01-07 09:00] LABS: C REACTIVE PROTEIN QUANTITATIV 1.5 MG/DL (<1.0)
[2023-01-07] MEDS: FLEET OIL RETENTION ENEMA PR SCH (09:00)
[2023-01-07] MEDS: METOPROLOL TART 25 MG TABLET PO SCH ×2 (09:00→22:24)
[2023-01-07] MEDS: ANUSOL HC CREAM 30GM TOP SCH (09:00)
[2023-01-07] MEDS: CAPSAICIN 0.025% CR 60 GM TOP SCH ×2 (09:00→22:21)
[2023-01-07] MEDS: METAMUCIL (PSYLLIUM) PACKET PO SCH ×2 (09:13→21:00)
[2023-01-07] MEDS: MIRALAX *UNIT DOSE* 17GM PACKET PO SCH ×2 (09:13→22:18)
[2023-01-07] MEDS: LEVEMIR (INSULIN DETEMIR) 1 UNITS/0.01ML SC SCH ×2 (09:14→22:16)
[2023-01-07] MEDS: INSULIN LISPRO (NovoLOG) PER UNIT SC SCH ×6 (09:14→21:00)
[2023-01-07] MEDS: DULoxetine 30MG CAPSULE (CYMBALTA) PO SCH ×2 (09:15→22:17)
[2023-01-07] MEDS: TORSEMIDE 20 MG TAB PO SCH ×2 (09:15→17:25)
[2023-01-07] MEDS: GABAPENTIN 400MG CAP PO SCH ×2 (09:15→22:16)
[2023-01-07] MEDS: POTASSIUM CHLORIDE 10MEQ SR TABLET PO SCH ×2 (09:15→22:18)
[2023-01-07] MEDS: OMEPRAZOLE 20MG CAP PO SCH (09:16)
[2023-01-07] MEDS: SENNA 8.6 MG TAB (SENOKOT) PO SCH (09:16)
[2023-01-07] MEDS: ASPIRIN 81MG CHEW TABLET PO SCH (09:16)
[2023-01-07] MEDS: DAPAGLIFLOZIN PROPANEDIOL 10MG TABLET (FARXIGA) PO SCH (09:16)
[2023-01-07] MEDS: rifAXIMin 550 MG TAB (XIFAXAN) PO SCH ×2 (09:16→22:17)
[2023-01-07] MEDS: FERROUS GLUCONATE 324 MG TAB PO SCH (09:16)
[2023-01-07] MEDS: ATORVASTATIN 20 MG TAB PO SCH (09:16)
[2023-01-07] MEDS: NYSTATIN 100,000 UNITS/GM TOPICAL PWD 15GM TOP SCH ×2 (09:17→21:00)
[2023-01-07] MEDS: POLYVINYL ALCOHOL OPHTH SOLN 15ML (LIQUITEARS) OU PRN ×2 (09:17→17:21)
[2023-01-07] MEDS: SODIUM CHLORIDE NASAL 0.65% SPRAY BTL (OCEAN) SCH ×3 (09:17→21:00)
[2023-01-07 14:00] VITALS: BP 142/78
[2023-01-07 20:00] VITALS: BP 112/60
[2023-01-07] MEDS: rOPINIRole 2MG TAB PO SCH (22:17)
[2023-01-08] MEDS: LEVOTHYROXINE 50MCG TABLET (0.05MG) PO SCH (05:21)
[2023-01-08] MEDS: HEPARIN SOD (PORCINE) 5000UNITS/ML 1ML VIAL/SYRINGE SQ SCH ×2 (05:22→12:26)
[2023-01-08] MEDS: ACETAMINOPHEN 325 MG TAB PO SCH ×2 (05:22→12:26)
[2023-01-08 06:00] VITALS: BP 119/62
[2023-01-08 06:12] LABS: BASO % 0.5 % (0.0-1.0); EOS # 0.1 10^3/uL (0.0-0.5); EOS % 3.5 % (0.0-3.0); HEMATOCRIT 31.1 % (36.0-47.0); HEMOGLOBIN 9.9 g/dl (12.0-15.5); LYMPH # 0.8 10^3/uL (1.5-5.0); LYMPH % 21.4 % (24.0-44.0); MEAN CORPUSCULAR HGB CONC 31.8 g/dl (32.0-36.5); MEAN CORPUSCULAR VOLUME 94.2 fl (80.0-96.0); MONO # 0.3 10^3/uL (0.0-0.8); MONO % 8.3 % (2.0-8.0); NEUTROPHILS # 2.4 10^3/uL (1.5-8.5); NEUTROPHILS % 65.5 % (36.0-66.0); PLATELET COUNT, AUTOMATED 108 10^3/uL (150-450); WHITE BLOOD COUNT 3.7 10^3/uL (4.0-10.0)
[2023-01-08 06:36] LABS: CALCIUM LEVEL 7.6 MG/DL (8.3-10.6); CREATININE FOR GFR 1.18 MG/DL (0.55-1.30); GLOMERULAR FILTRATION RATE 48.5 (>45); POTASSIUM SERUM 4.2 MMOL/L (3.5-5.1)
[2023-01-08 08:00] VITALS: BP 118/68
[2023-01-08] MEDS: ADVAIR HFA 115/21MCG INHALER INH SCH (08:48)
[2023-01-08] MEDS: MIRALAX *UNIT DOSE* 17GM PACKET PO SCH (08:53)
[2023-01-08] MEDS: METAMUCIL (PSYLLIUM) PACKET PO SCH (08:54)
[2023-01-08] MEDS: TORSEMIDE 20 MG TAB PO SCH (08:55)
[2023-01-08] MEDS: DAPAGLIFLOZIN PROPANEDIOL 10MG TABLET (FARXIGA) PO SCH (08:55)
[2023-01-08] MEDS: DULoxetine 30MG CAPSULE (CYMBALTA) PO SCH (08:55)
[2023-01-08] MEDS: rifAXIMin 550 MG TAB (XIFAXAN) PO SCH (08:56)
[2023-01-08] MEDS: SENNA 8.6 MG TAB (SENOKOT) PO SCH (08:56)
[2023-01-08] MEDS: POTASSIUM CHLORIDE 10MEQ SR TABLET PO SCH (08:56)
[2023-01-08] MEDS: GABAPENTIN 400MG CAP PO SCH (08:57)
[2023-01-08] MEDS: METOPROLOL TART 25 MG TABLET PO SCH ×3 (08:59→09:14)
[2023-01-08] MEDS: OMEPRAZOLE 20MG CAP PO SCH (09:00)
[2023-01-08] MEDS: ATORVASTATIN 20 MG TAB PO SCH (09:00)
[2023-01-08] MEDS: ASPIRIN 81MG CHEW TABLET PO SCH (09:00)
[2023-01-08] MEDS: FLEET OIL RETENTION ENEMA PR SCH (09:00)
[2023-01-08] MEDS: FERROUS GLUCONATE 324 MG TAB PO SCH (09:00)
[2023-01-08] MEDS: LEVEMIR (INSULIN DETEMIR) 1 UNITS/0.01ML SC SCH (09:01)
[2023-01-08] MEDS: INSULIN LISPRO (NovoLOG) PER UNIT SC SCH ×4 (09:02→12:26)
[2023-01-08] MEDS: SODIUM CHLORIDE NASAL 0.65% SPRAY BTL (OCEAN) SCH (09:04)
[2023-01-08] MEDS: NYSTATIN 100,000 UNITS/GM TOPICAL PWD 15GM TOP SCH (09:05)
[2023-01-08] MEDS: CAPSAICIN 0.025% CR 60 GM TOP SCH (09:06)
[2023-01-08] MEDS: ANUSOL HC CREAM 30GM TOP SCH (09:07)
[2023-01-08 09:14] VITALS: BP 118/68
[2023-01-08] MEDS: POLYVINYL ALCOHOL OPHTH SOLN 15ML (LIQUITEARS) OU PRN (09:23)
[2023-01-08] MEDS: oxyCODONE 5MG TAB PO PRN (11:26)
[2023-01-08] MEDS ORDERED: INSUDET SC (11:48)
[2023-01-08] MEDS ORDERED: MIRA1POW3 PO (11:49)
[2023-01-08] MEDS ORDERED: META1POW PO (11:49)
[2023-01-08] MEDS ORDERED: INSUHUMDS SC (11:49)
[2023-01-08] MEDS ORDERED: GABA-283 PO (11:49)
[2023-01-08] MEDS ORDERED: OXYC-517 PO (11:49)
[2023-01-08] MEDS ORDERED: FARX1TAB3 PO (11:49)
[2023-01-08 11:56] VITALS: BP 118/69
== END 2023-01-08 13:34 | DRG 605 ==
LOC: M ED 23:12 → M ED INP 12-30 04:14 → ENRESERV 12-30 05:04 → M MSPAV 12-30 05:40
PROVIDERS: ADMIT Internal Medicine; ATTEND Internal Medicine Nephrology
PROC: 0Y9F0ZZ Drainage of Right Knee Region, Open Approach (ICD-10-PCS; principal; 2022-12-31)
DX: S80.01XA Contusion of right knee, initial encounter (principal); I50.32 Chronic diastolic (congestive) heart failure; L97.929 Non-pressure chronic ulcer of unspecified part of left lower leg with unspecified severity; I13.0 Hypertensive heart and chronic kidney disease with heart failure and stage 1 through stage 4 chronic kidney disease, or unspecified chronic kidney disease; D61.818 Other pancytopenia; N18.30 Chronic kidney disease, stage 3 unspecified; J44.9 Chronic obstructive pulmonary disease, unspecified; M54.9 Dorsalgia, unspecified; G89.29 Other chronic pain; E66.01 Morbid (severe) obesity due to excess calories; K75.81 Nonalcoholic steatohepatitis (NASH); S02.2XXA Fracture of nasal bones, initial encounter for closed fracture; W06.XXXA Fall from bed, initial encounter; Y92.29 Other specified public building as the place of occurrence of the external cause; S81.011A Laceration without foreign body, right knee, initial encounter; R26.89 Other abnormalities of gait and mobility; K21.9 Gastro-esophageal reflux disease without esophagitis; E78.5 Hyperlipidemia, unspecified; E03.9 Hypothyroidism, unspecified; G47.00 Insomnia, unspecified; I87.2 Venous insufficiency (chronic) (peripheral); D50.9 Iron deficiency anemia, unspecified; I73.9 Peripheral vascular disease, unspecified; E11.51 Type 2 diabetes mellitus with diabetic peripheral angiopathy without gangrene; E11.22 Type 2 diabetes mellitus with diabetic chronic kidney disease; F41.9 Anxiety disorder, unspecified; E11.65 Type 2 diabetes mellitus with hyperglycemia; K59.09 Other constipation; G47.33 Obstructive sleep apnea (adult) (pediatric); G25.81 Restless legs syndrome; E21.3 Hyperparathyroidism, unspecified; Z86.73 Personal history of transient ischemic attack (TIA), and cerebral infarction without residual deficits; E26.1 Secondary hyperaldosteronism; Z90.49 Acquired absence of other specified parts of digestive tract; Z90.79 Acquired absence of other genital organ(s); Z79.891 Long term (current) use of opiate analgesic; E87.6 Hypokalemia; B37.2 Candidiasis of skin and nail; Z66 Do not resuscitate; Z88.8 Allergy status to other drugs, medicaments and biological substances; Z79.4 Long term (current) use of insulin; Z79.899 Other long term (current) drug therapy; Z88.6 Allergy status to analgesic agent; Z88.0 Allergy status to penicillin; Z79.82 Long term (current) use of aspirin; Z79.890 Hormone replacement therapy

== ENCOUNTER → 2023-01-11 | Outpatient (REF) | payer MEDICARE, MEDICAID ==
[~2023-01-11] MED LIST changes: +ANOR1AER PO; +ATOR1TAB21 PO; +AVEELOT TOP; +BENG1CRE TOP; +CAPS0.022 TOP; +CERA453C2 TP; +CETI-24 PO; +COMBAER6 INH; +DICL20GE TP; +ERGO500029 PO; +ESOM0.1C PO; +FARX1TAB3 PO; +GUAI100L6 PO; +HYDR2.5C TOP; +META1POW PO; +MIRA1POW3 PO; +NYST1POW9 TOP; +ONDA4TAB6 PO; +ROPI2TAB3 PO; +SALI0.6530 NARES; +TIZA1TAB12 PO; +TORS20TA2 PO; +TRUL0.5I SC; +TUMS500C PO
[2023-01-11 09:59] LABS: CHOLESTEROL RISK RATIO 2.25 (<5); HDL CHOLESTEROL 38.5 MG/DL (>40); LDL CHOLESTEROL 34.1 MG/DL (<100); NON-HDL-C 48.5 MG/DL
== END ==
LOC: SKLAB5 09:35
PROVIDERS: ATTEND Nurse Practitioner Adult Health
DX: E78.5 Hyperlipidemia, unspecified (principal)

== ENCOUNTER → 2023-02-08 | Outpatient (REF) | payer MEDICARE, MEDICAID ==
[2023-02-08 10:37] LABS: HEMATOCRIT 36.8 % (36.0-47.0); HEMOGLOBIN 11.8 g/dl (12.0-15.5); MEAN CORPUSCULAR HEMOGLOBIN 30.3 pg (27.0-33.0); MEAN CORPUSCULAR HGB CONC 32.1 g/dl (32.0-36.5); MEAN CORPUSCULAR VOLUME 94.6 fl (80.0-96.0); PLATELET COUNT, AUTOMATED 144 10^3/uL (150-450); RED BLOOD COUNT 3.89 10^6/uL (4.00-5.40); WHITE BLOOD COUNT 4.9 10^3/uL (4.0-10.0)
[2023-02-08 11:02] LABS: CALCIUM LEVEL 8.6 MG/DL (8.3-10.6); CREATININE FOR GFR 1.18 MG/DL (0.55-1.30); GLOMERULAR FILTRATION RATE 48.5 (>45); PHOSPHORUS LEVEL 3.9 MG/DL (2.4-5.1); POTASSIUM SERUM 3.6 MMOL/L (3.5-5.1); PTH INTACT 65.5 PG/ML (18.5-88.0)
[2023-02-08 11:03] LABS: THYROID STIMULATING HORMONE 1.666 uIU/ML (0.55-4.78); TOTAL 25(OH) VITAMIN D 45.5 NG/ML (20.0-100.0)
[2023-02-08 11:20] LABS: HEMOGLOBIN A1c 8.3 % (4.0-6.0)
== END ==
LOC: SKLAB5 11:25
PROVIDERS: ATTEND Nurse Practitioner Adult Health
DX: E03.9 Hypothyroidism, unspecified (principal); N18.9 Chronic kidney disease, unspecified; E11.22 Type 2 diabetes mellitus with diabetic chronic kidney disease; D63.1 Anemia in chronic kidney disease; Z79.899 Other long term (current) drug therapy

== ENCOUNTER → 2023-02-15 | Outpatient (CLI) | payer MEDICARE, MEDICAID | LOC: M RAD 16:00 | PROVIDERS: ATTEND Internal Medicine | DX: R06.02 Shortness of breath (principal) ==

== ENCOUNTER → 2023-02-15 | Outpatient (REF) | payer MEDICARE, MEDICAID ==
[2023-02-15 16:22] LABS: HEMATOCRIT 35.6 % (36.0-47.0); HEMOGLOBIN 11.5 g/dl (12.0-15.5); MEAN CORPUSCULAR HEMOGLOBIN 30.3 pg (27.0-33.0); MEAN CORPUSCULAR HGB CONC 32.3 g/dl (32.0-36.5); MEAN CORPUSCULAR VOLUME 93.7 fl (80.0-96.0); PLATELET COUNT, AUTOMATED 105 10^3/uL (150-450)
[2023-02-15 16:53] LABS: CALCIUM LEVEL 7.8 MG/DL (8.3-10.6); CREATININE FOR GFR 1.47 MG/DL (0.55-1.30); GLOMERULAR FILTRATION RATE 37.6 (>45); POTASSIUM SERUM 3.8 MMOL/L (3.5-5.1)
== END ==
LOC: SKLAB5 15:19
PROVIDERS: ATTEND Nurse Practitioner Adult Health
DX: I50.9 Heart failure, unspecified (principal); N18.9 Chronic kidney disease, unspecified; J98.4 Other disorders of lung

== ENCOUNTER → 2023-02-18 | Outpatient (REF) ==
[2023-02-18 12:01] LABS: APPEARANCE, URINE CLOUDY (CLEAR); BACTERIA, URINE AUTO 1+ (NEGATIVE); BILIRUBIN, URINE AUTO NEGATIVE (NEGATIVE); BLOOD, URINE BLOOD NEGATIVE (NEGATIVE); COLOR, URINE YELLOW (YELLOW); GLUCOSE, URINE (UA) AUTO 1+ mg/dL (NEGATIVE); KETONE, URINE AUTO NEGATIVE (NEGATIVE); LEUKOCYTE ESTERASE, URINE AUTO 3+ (NEGATIVE); NITRITE, URINE AUTO NEGATIVE (NEGATIVE); PROTEIN, URINE AUTO NEGATIVE (NEGATIVE); RBC, URINE AUTO 3 /HPF (0-3); SPECIFIC GRAVITY URINE AUTO 1.014 (1.002-1.035); SQUAMOUS EPITHELIAL CELL UR AU 0 /HPF (0-6); UROBILINOGEN, URINE AUTO 0.2 mg/dL (0.0-2.0); WBC, URINE AUTO 168 /HPF (0-3)
== END ==
LOC: SKLAB5 11:46
PROVIDERS: ATTEND Internal Medicine
DX: R50.9 Fever, unspecified (principal)

== ENCOUNTER → 2023-02-19 | Outpatient (REF) | payer MEDICARE, MEDICAID ==
[2023-02-19 09:30] LABS: HEMATOCRIT 34.3 % (36.0-47.0); HEMOGLOBIN 11.1 g/dl (12.0-15.5); MEAN CORPUSCULAR HEMOGLOBIN 29.6 pg (27.0-33.0); MEAN CORPUSCULAR HGB CONC 32.4 g/dl (32.0-36.5); MEAN CORPUSCULAR VOLUME 91.5 fl (80.0-96.0); PLATELET COUNT, AUTOMATED 148 10^3/uL (150-450); RED BLOOD COUNT 3.75 10^6/uL (4.00-5.40); WHITE BLOOD COUNT 9.3 10^3/uL (4.0-10.0)
[2023-02-19 09:46] LABS: CALCIUM LEVEL 7.6 MG/DL (8.3-10.6); CREATININE FOR GFR 1.4 MG/DL (0.55-1.30); GLOMERULAR FILTRATION RATE 39.8 (>45); POTASSIUM SERUM 3.6 MMOL/L (3.5-5.1)
== END ==
LOC: SKLAB5 08:19
PROVIDERS: ATTEND Nurse Practitioner
DX: R50.9 Fever, unspecified (principal)

== ENCOUNTER → 2023-03-18 | Outpatient (REF) | payer MEDICARE, MEDICAID ==
[~2023-03-18] MED LIST changes: -K-TA10TA2 PO; +POTA-165 PO; -POTA10CA33 PO; +POTA10CA60 PO
== END ==
LOC: SKLAB5 14:05
PROVIDERS: ATTEND Nurse Practitioner Adult Health
DX: M25.512 Pain in left shoulder (principal)

== ENCOUNTER → 2023-04-22 | Outpatient (REF) ==
[~2023-04-22] MED LIST changes: -ROPI2TAB3 PO; +ROPI2TAB46 PO
== END ==
LOC: SKLAB5 20:14
PROVIDERS: ATTEND Internal Medicine
DX: R46.4 Slowness and poor responsiveness (principal)

== ENCOUNTER → 2023-04-22 | Outpatient (REF) | payer MEDICARE, MEDICAID ==
[~2023-04-22] MED LIST changes: -GABA-283 PO; +GABA-284 PO
[2023-04-22 16:35] LABS: CALCIUM LEVEL 8.9 MG/DL (8.3-10.6); CREATININE FOR GFR 1.7 MG/DL (0.55-1.30); GLOMERULAR FILTRATION RATE 31.8 (>45); POTASSIUM SERUM 5.1 MMOL/L (3.5-5.1)
[2023-04-22 17:03] LABS: HEMATOCRIT 41.4 % (36.0-47.0); HEMOGLOBIN 12.7 g/dl (12.0-15.5); MEAN CORPUSCULAR HEMOGLOBIN 28.5 pg (27.0-33.0); MEAN CORPUSCULAR HGB CONC 30.7 g/dl (32.0-36.5); MEAN CORPUSCULAR VOLUME 92.8 fl (80.0-96.0); PLATELET COUNT, AUTOMATED 153 10^3/uL (150-450); RED BLOOD COUNT 4.46 10^6/uL (4.00-5.40); WHITE BLOOD COUNT 20.7 10^3/uL (4.0-10.0)
[2023-04-22 20:48] LABS: APPEARANCE, URINE HAZY (CLEAR); BACTERIA, URINE AUTO 1+ (NEGATIVE); BILIRUBIN, URINE AUTO NEGATIVE (NEGATIVE); BLOOD, URINE BLOOD 1+ (NEGATIVE); COLOR, URINE YELLOW (YELLOW); GLUCOSE, URINE (UA) AUTO 1+ mg/dL (NEGATIVE); KETONE, URINE AUTO NEGATIVE (NEGATIVE); LEUKOCYTE ESTERASE, URINE AUTO 3+ (NEGATIVE); NITRITE, URINE AUTO NEGATIVE (NEGATIVE); PROTEIN, URINE AUTO NEGATIVE (NEGATIVE); RBC, URINE AUTO 3 /HPF (0-3); SQUAMOUS EPITHELIAL CELL UR AU 1 /HPF (0-6); UROBILINOGEN, URINE AUTO 0.2 mg/dL (0.0-2.0); WBC, URINE AUTO 129 /HPF (0-3)
== END ==
LOC: SKLAB5 15:03
PROVIDERS: ATTEND Nurse Practitioner Adult Health
DX: R46.4 Slowness and poor responsiveness (principal)

== ENCOUNTER → 2023-04-22 | Outpatient (CLI) | payer MEDICARE, MEDICAID ==
[~2023-04-22] MED LIST changes: +GABA-283 PO; -GABA-284 PO
== END ==
LOC: M RAD 16:00
PROVIDERS: ATTEND Internal Medicine
DX: M19.019 Primary osteoarthritis, unspecified shoulder (principal); R46.4 Slowness and poor responsiveness

== ENCOUNTER → 2023-04-23 | Outpatient (REF) | payer MEDICARE, MEDICAID ==
[~2023-04-23] MED LIST changes: -GABA-283 PO; +GABA-284 PO
== END ==
LOC: SKLAB5 11:48
PROVIDERS: ATTEND Nurse Practitioner
DX: D72.829 Elevated white blood cell count, unspecified (principal)

== ENCOUNTER → 2023-04-24 | Outpatient (REF) | payer MEDICARE, MEDICAID ==
[~2023-04-24] MED LIST changes: +ALLE1TAB23 PO; +BUPR300T92 PO; +CLEO300C2 PO; +CLOB5CR TOP; +MIRA3350 PO; +OYST500T92 PO; +SENN1TAB41 PO
[2023-04-24 06:10] LABS: HEMATOCRIT 36.4 % (36.0-47.0); HEMOGLOBIN 11.6 g/dl (12.0-15.5); MEAN CORPUSCULAR HEMOGLOBIN 28.5 pg (27.0-33.0); MEAN CORPUSCULAR HGB CONC 31.9 g/dl (32.0-36.5); MEAN CORPUSCULAR VOLUME 89.4 fl (80.0-96.0); PLATELET COUNT, AUTOMATED 124 10^3/uL (150-450); RED BLOOD COUNT 4.07 10^6/uL (4.00-5.40); WHITE BLOOD COUNT 10.9 10^3/uL (4.0-10.0)
[2023-04-24 06:26] LABS: CALCIUM LEVEL 8.1 MG/DL (8.3-10.6); CREATININE FOR GFR 1.47 MG/DL (0.55-1.30); GLOMERULAR FILTRATION RATE 37.6 (>45); POTASSIUM SERUM 4.5 MMOL/L (3.5-5.1)
== END ==
LOC: SKLAB5 04-23 09:36
PROVIDERS: ATTEND Nurse Practitioner Adult Health
DX: N18.9 Chronic kidney disease, unspecified (principal); D72.829 Elevated white blood cell count, unspecified

== ENCOUNTER → 2023-04-30 | Outpatient (REF) | payer MEDICARE, MEDICAID ==
[~2023-04-30] MED LIST changes: -ALLE1TAB23 PO; -BUPR300T92 PO; -CLEO300C2 PO; -CLOB5CR TOP; -MIRA3350 PO; -OYST500T92 PO; -SENN1TAB41 PO
[2023-04-30 08:40] LABS: HEMATOCRIT 39.9 % (36.0-47.0); MEAN CORPUSCULAR HEMOGLOBIN 28.2 pg (27.0-33.0); MEAN CORPUSCULAR HGB CONC 30.1 g/dl (32.0-36.5); MEAN CORPUSCULAR VOLUME 93.9 fl (80.0-96.0); PLATELET COUNT, AUTOMATED 170 10^3/uL (150-450); RED BLOOD COUNT 4.25 10^6/uL (4.00-5.40); WHITE BLOOD COUNT 10.7 10^3/uL (4.0-10.0)
[2023-04-30 08:59] LABS: BILIRUBIN,TOTAL 0.6 MG/DL (0.3-1.2); CREATININE FOR GFR 2.19 MG/DL (0.55-1.30); GLOMERULAR FILTRATION RATE 23.8 (>45); POTASSIUM SERUM 4.8 MMOL/L (3.5-5.1); TOTAL PROTEIN 8.1 G/DL (5.7-8.2)
== END ==
LOC: SKLAB5 07:21
PROVIDERS: ATTEND Internal Medicine
DX: R41.82 Altered mental status, unspecified (principal); Z79.899 Other long term (current) drug therapy

== ENCOUNTER → 2023-04-30 | Outpatient (REF) | payer MEDICARE, MEDICAID | LOC: SKLAB5 07:46 | PROVIDERS: ATTEND Internal Medicine | DX: I10 Essential (primary) hypertension (principal); Z53.8 Procedure and treatment not carried out for other reasons ==

== ENCOUNTER → 2023-05-01 | Outpatient (REF) | payer MEDICARE, MEDICAID ==
[~2023-05-01] MED LIST changes: +ALLE1TAB23 PO; +BUPR300T92 PO; +CLEO300C2 PO; +CLOB5CR TOP; +MIRA3350 PO; +OYST500T92 PO; +SENN1TAB41 PO
[2023-05-01 09:18] LABS: HEMATOCRIT 36.3 % (36.0-47.0); MEAN CORPUSCULAR HEMOGLOBIN 28.4 pg (27.0-33.0); MEAN CORPUSCULAR HGB CONC 30.3 g/dl (32.0-36.5); MEAN CORPUSCULAR VOLUME 93.6 fl (80.0-96.0); PLATELET COUNT, AUTOMATED 133 10^3/uL (150-450); RED BLOOD COUNT 3.88 10^6/uL (4.00-5.40); WHITE BLOOD COUNT 12.2 10^3/uL (4.0-10.0)
[2023-05-01 09:37] LABS: CALCIUM LEVEL 8.2 MG/DL (8.3-10.6); CREATININE FOR GFR 1.97 MG/DL (0.55-1.30); GLOMERULAR FILTRATION RATE 26.8 (>45)
== END ==
LOC: SKLAB5 09:27
PROVIDERS: ATTEND Nurse Practitioner Adult Health
DX: N17.9 Acute kidney failure, unspecified (principal)

== ENCOUNTER → 2023-05-01 | Outpatient (CLI) | payer MEDICARE, MEDICAID ==
[~2023-05-01] MED LIST changes: -ALLE1TAB23 PO; -BUPR300T92 PO; -CLEO300C2 PO; -CLOB5CR TOP; -MIRA3350 PO; -OYST500T92 PO; -SENN1TAB41 PO
== END ==
LOC: M RAD 14:14
PROVIDERS: ATTEND Internal Medicine
DX: R05.1 Acute cough (principal)

== ENCOUNTER → 2023-05-01 | Outpatient (REF) | payer MEDICARE, MEDICAID | LOC: SKLAB5 09:29 | PROVIDERS: ATTEND Nurse Practitioner Adult Health | DX: R09.89 Other specified symptoms and signs involving the circulatory and respiratory systems (principal); Z53.8 Procedure and treatment not carried out for other reasons ==

== ENCOUNTER → 2023-05-02 | Outpatient (REF) | payer MEDICARE, MEDICAID ==
[~2023-05-02] MED LIST changes: +ALLE1TAB23 PO; +BUPR300T92 PO; +CLEO300C2 PO; +CLOB5CR TOP; +MIRA3350 PO; +OYST500T92 PO; +SENN1TAB41 PO
[2023-05-02 08:21] LABS: HEMATOCRIT 34.7 % (36.0-47.0); HEMOGLOBIN 10.8 g/dl (12.0-15.5); MEAN CORPUSCULAR HEMOGLOBIN 28.1 pg (27.0-33.0); MEAN CORPUSCULAR HGB CONC 31.1 g/dl (32.0-36.5); MEAN CORPUSCULAR VOLUME 90.4 fl (80.0-96.0); PLATELET COUNT, AUTOMATED 120 10^3/uL (150-450); RED BLOOD COUNT 3.84 10^6/uL (4.00-5.40); WHITE BLOOD COUNT 8.8 10^3/uL (4.0-10.0)
[2023-05-02 08:48] LABS: CALCIUM LEVEL 7.8 MG/DL (8.3-10.6); CREATININE FOR GFR 1.77 MG/DL (0.55-1.30); GLOMERULAR FILTRATION RATE 30.4 (>45); POTASSIUM SERUM 3.8 MMOL/L (3.5-5.1)
== END ==
LOC: SKLAB5 13:30
PROVIDERS: ATTEND Nurse Practitioner Adult Health
DX: N17.9 Acute kidney failure, unspecified (principal)

== ENCOUNTER → 2023-05-03 | Outpatient (REF) | payer MEDICARE, MEDICAID ==
[2023-05-03 07:15] LABS: HEMOGLOBIN 12.1 g/dl (12.0-15.5); MEAN CORPUSCULAR HEMOGLOBIN 28.1 pg (27.0-33.0); MEAN CORPUSCULAR VOLUME 90.7 fl (80.0-96.0); PLATELET COUNT, AUTOMATED 154 10^3/uL (150-450); WHITE BLOOD COUNT 12.3 10^3/uL (4.0-10.0)
[2023-05-03 07:44] LABS: CALCIUM LEVEL 7.7 MG/DL (8.3-10.6); CREATININE FOR GFR 1.54 MG/DL (0.55-1.30); GLOMERULAR FILTRATION RATE 35.7 (>45); POTASSIUM SERUM 4.8 MMOL/L (3.5-5.1)
== END ==
LOC: SKLAB5 11:09
PROVIDERS: ATTEND Nurse Practitioner Adult Health
DX: J44.9 Chronic obstructive pulmonary disease, unspecified (principal); N17.9 Acute kidney failure, unspecified; R91.8 Other nonspecific abnormal finding of lung field

== ENCOUNTER 2023-05-04 14:18 | Inpatient (IN) | payer MEDICARE, MEDICAID ==
[~2023-05-04] VITALS: Ht 160 cm; Wt 115.3 kg
[~2023-05-04 14:18] MED LIST changes: -ALLE1TAB23 PO; -BUPR300T92 PO; -CLEO300C2 PO; -CLOB5CR TOP; -MIRA3350 PO; -OYST500T92 PO; -SENN1TAB41 PO
[2023-05-04] MEDS ORDERED: BOOSTRIX VACCINE (TETANUS/DIPHTH/ACEL. PERTUSSIS) 0.5ML SYR IM.IMMUN ONE (15:10)
[2023-05-04] MEDS ORDERED: DERMABOND TOPICAL SKIN ADHESIVE TOP ONE (15:15)
[2023-05-04] MEDS ORDERED: MEROPENEM INJ 1 GM in IV 1 EA IV ONE (15:15)
[2023-05-04] MEDS ORDERED: DEXTROSE 50% 50ML SYRINGE IV STA (15:35)
[2023-05-04] MEDS ORDERED: DEXTROSE 50% 50ML SYRINGE As Ordered ONE (15:36)
[2023-05-04 15:37] LABS: VENOUS BASE EXCESS 2.3 (-2.0-2.0); VENOUS HCO3 28.4 MMOL/L (23.0-27.0); VENOUS O2 SATURATION 68.7 % (60.0-80.0); VENOUS PARTIAL PRESSURE CO2 49.7 mmHg (38.0-50.0); VENOUS PARTIAL PRESSURE O2 37.2 mmHg (30.0-50.0); VENOUS PH 7.375 UNITS (7.330-7.430); VENOUS STANDARD HCO3 25.8 MMOL/L; VENOUS TOTAL CO2 29.9 MMOL/L (24.0-28.0)
[2023-05-04 15:52] LABS: BASO # 0.1 10^3/uL (0.0-0.2); BASO % 0.4 % (0.0-1.0); EOS # 0.3 10^3/uL (0.0-0.5); EOS % 2.2 % (0.0-3.0); HEMATOCRIT 40.4 % (36.0-47.0); HEMOGLOBIN 12.8 g/dl (12.0-15.5); LYMPH % 7.6 % (24.0-44.0); MEAN CORPUSCULAR HEMOGLOBIN 28.3 pg (27.0-33.0); MEAN CORPUSCULAR HGB CONC 31.7 g/dl (32.0-36.5); MEAN CORPUSCULAR VOLUME 89.4 fl (80.0-96.0); MONO # 0.9 10^3/uL (0.0-0.8); MONO % 6.5 % (2.0-8.0); NEUTROPHILS # 11.4 10^3/uL (1.5-8.5); NEUTROPHILS % 82.8 % (36.0-66.0); PLATELET COUNT, AUTOMATED 165 10^3/uL (150-450); RED BLOOD COUNT 4.52 10^6/uL (4.00-5.40); WHITE BLOOD COUNT 13.8 10^3/uL (4.0-10.0)
[2023-05-04 16:13] LABS: ALBUMIN 1.6 G/DL (3.2-5.2); BILIRUBIN,DIRECT 0.6 MG/DL (<0.4); BILIRUBIN,TOTAL 1.1 MG/DL (0.3-1.2); CALCIUM LEVEL 7.8 MG/DL (8.3-10.6); CREATININE FOR GFR 1.37 MG/DL (0.55-1.30); GLOMERULAR FILTRATION RATE 40.8 (>45); POTASSIUM SERUM 4.3 MMOL/L (3.5-5.1); TOTAL PROTEIN 8.2 G/DL (5.7-8.2)
[2023-05-04 16:15] LABS: THYROID STIMULATING HORMONE 1.417 uIU/ML (0.55-4.78)
[2023-05-04] MEDS ORDERED: IPRATROPIUM 0.5MG/ALBUTEROL 2.5MG INH SOL UD 3ML (DUONEB) NEB SCH (16:40)
[2023-05-04] MEDS ORDERED: methylPREDNISolone 125MG 2ML VIAL IV ONE (16:40)
[2023-05-04] MEDS ORDERED: ONDANSETRON 4MG 2ML VIAL IV PRN (17:00)
[2023-05-04] MEDS ORDERED: GLUCAGON INJ 1MG VIAL SC PRN (17:05)
[2023-05-04] MEDS ORDERED: GLUCOSE 4GM CHEW TABLET PO PRN (17:05)
[2023-05-04] MEDS ORDERED: DEXTROSE 50% 50ML SYRINGE IV PRN (17:05)
[2023-05-04] MEDS: IPRATROPIUM 0.5MG/ALBUTEROL 2.5MG INH SOL UD 3ML (DUONEB) NEB PRN (17:13)
[2023-05-04] MEDS: IPRATROPIUM 0.5MG/ALBUTEROL 2.5MG INH SOL UD 3ML (DUONEB) NEB SCH (17:13)
[2023-05-04] MEDS: INSULIN LISPRO (NovoLOG) PER UNIT SC SCH (17:30)
[2023-05-04 17:56] LABS: ERYTHROCYTE SEDIMENTATION RATE > 130 mm/hr (0-30)
[2023-05-04 18:02] LABS: C REACTIVE PROTEIN QUANTITATIV 21.6 MG/DL (<1.0)
[2023-05-04 18:07] LABS: PROCALCITONIN 0.44 ng/ml
[2023-05-04] MEDS ORDERED: INSUDET SC (19:42)
[2023-05-04] MEDS ORDERED: CLOB5CR TOP (19:42)
[2023-05-04] MEDS ORDERED: OXYC-517 PO (19:42)
[2023-05-04] MEDS ORDERED: OYST500T92 PO (19:42)
[2023-05-04] MEDS ORDERED: GUAI100L6 PO (19:42)
[2023-05-04] MEDS ORDERED: BUPR300T92 PO (19:42)
[2023-05-04] MEDS ORDERED: DOXY100T PO (19:42)
[2023-05-04] MEDS ORDERED: SENN1TAB41 PO (19:42)
[2023-05-04] MEDS ORDERED: ALLE1TAB23 PO (19:42)
[2023-05-04] MEDS ORDERED: MIRA3350 PO (19:42)
[2023-05-04] MEDS ORDERED: CLEO300C2 PO (19:42)
[2023-05-04] MEDS ORDERED: GABA-1171 PO (19:42)
[2023-05-04] MEDS ORDERED: HOME MED LIST COMPLETE! XX SCH (19:50)
[2023-05-04] MEDS: ACETAMINOPHEN TAB 650MG DOSE (2X325MG) PO PRN (20:19)
[2023-05-04] MEDS: LACTOBACILLUS ACIDOPHILUS CAP (BACID) PO SCH ×2 (20:45→22:44)
[2023-05-04] MEDS ORDERED: DOXYCYCLINE HYCLATE 100MG TABLET PO SCH (21:00)
[2023-05-04] MEDS ORDERED: INSULIN LISPRO (NovoLOG) PER UNIT SC SCH (21:00)
[2023-05-04] MEDS ORDERED: HALOPERIDOL 5MG/ML 1ML VIAL IV ONE (22:00)
[2023-05-04 22:16] VITALS: BP 118/76; TEMP 97; O2SAT 91
[2023-05-04] MEDS ORDERED: LORazepam 2 MG/ML 1ML VIAL IV ONE (22:30)
[2023-05-04 22:42] VITALS: BP 117/73; TEMP 97.7; O2SAT 93
[2023-05-04] MEDS: guaiFENesin ER 600 MG TAB PO SCH (22:44)
[2023-05-04] MEDS ORDERED: LORazepam 2 MG/ML 1ML VIAL IM STA (23:10)
[2023-05-05] MEDS ORDERED: D5W/0.45% SODIUM CHLORIDE 1,000 ML IV SCH (00:25)
[2023-05-05] MEDS ORDERED: ACETAMINOPHEN 1000MG 100ML IV BAG IV ONE (01:00)
[2023-05-05] MEDS ORDERED: LORazepam 2 MG/ML 1ML VIAL IV ONE (04:00)
[2023-05-05] MEDS ORDERED: MEROPENEM INJ 1 GM in IV 1 EA IV SCH (04:00)
[2023-05-05] MEDS ORDERED: DOXYCYCLINE HYCLATE 100 MG in D5W MINI-BAG PLUS 100 ML IV SCH (05:00)
[2023-05-05 05:50] LABS: BASO % 0.2 % (0.0-1.0); HEMATOCRIT 35.7 % (36.0-47.0); HEMOGLOBIN 11.2 g/dl (12.0-15.5); LYMPH # 0.6 10^3/uL (1.5-5.0); LYMPH % 5.8 % (24.0-44.0); MEAN CORPUSCULAR HEMOGLOBIN 27.9 pg (27.0-33.0); MEAN CORPUSCULAR HGB CONC 31.4 g/dl (32.0-36.5); MONO # 0.3 10^3/uL (0.0-0.8); MONO % 2.6 % (2.0-8.0); NEUTROPHILS # 9.5 10^3/uL (1.5-8.5); NEUTROPHILS % 90.8 % (36.0-66.0); PLATELET COUNT, AUTOMATED 147 10^3/uL (150-450); RED BLOOD COUNT 4.01 10^6/uL (4.00-5.40); WHITE BLOOD COUNT 10.4 10^3/uL (4.0-10.0)
[2023-05-05 06:14] LABS: CALCIUM LEVEL 7.1 MG/DL (8.3-10.6); CREATININE FOR GFR 1.38 MG/DL (0.55-1.30); GLOMERULAR FILTRATION RATE 40.5 (>45); POTASSIUM SERUM 4.4 MMOL/L (3.5-5.1)
[2023-05-05] MEDS: INSULIN LISPRO (NovoLOG) PER UNIT SC SCH (07:30)
[2023-05-05] MEDS: LACTOBACILLUS ACIDOPHILUS CAP (BACID) PO SCH (08:57)
[2023-05-05] MEDS: guaiFENesin ER 600 MG TAB PO SCH (08:58)
[2023-05-05] MEDS: ACETAMINOPHEN TAB 650MG DOSE (2X325MG) PO PRN (08:59)
[2023-05-05] MEDS: IPRATROPIUM 0.5MG/ALBUTEROL 2.5MG INH SOL UD 3ML (DUONEB) NEB SCH (08:59)
[2023-05-05] MEDS ORDERED: methylPREDNISolone 125MG 2ML VIAL IV ONE (09:35)
[2023-05-05] MEDS ORDERED: LORazepam 2 MG/ML 1ML VIAL IV STA (11:19)
[2023-05-05] MEDS ORDERED: LORazepam 2 MG/ML 1ML VIAL IV PRN (11:20)
[2023-05-05] MEDS ORDERED: MORPHINE 10 MG/ML 1ML VIAL IV ONE (11:20)
[2023-05-05] MEDS: IPRATROPIUM 0.5MG/ALBUTEROL 2.5MG INH SOL UD 3ML (DUONEB) NEB PRN ×2 (11:26→11:47)
[2023-05-05] MEDS ORDERED: HALOPERIDOL 5MG/ML 1ML VIAL IV PRN (11:30)
[2023-05-05] MEDS: SCOPOLAMINE 1MG TRANSDERMAL PATCH TOP SCH (11:47)
[2023-05-05] MEDS ORDERED: IPRATROPIUM 0.5MG/ALBUTEROL 2.5MG INH SOL UD 3ML (DUONEB) NEB SCH (12:00)
[2023-05-05] MEDS: MORPHINE SULF IN 0.9% NACL 100 MG in IV 1 EA IV SCH ×2 (12:06)
[2023-05-05] MEDS: LORazepam 2 MG/ML 1ML VIAL IV PRN ×3 (13:29→20:45)
[2023-05-05] MEDS ORDERED: methylPREDNISolone 125MG 2ML VIAL IV SCH (16:00)
[2023-05-06] MEDS: LORazepam 2 MG/ML 1ML VIAL IV PRN ×6 (00:18→22:04)
[2023-05-06] MEDS: MORPHINE SULF IN 0.9% NACL 100 MG in IV 1 EA IV SCH ×2 (09:52)
[2023-05-07] MEDS: MORPHINE SULF IN 0.9% NACL 100 MG in IV 1 EA IV SCH ×2 (04:48)
[2023-05-07] MEDS: ATROPINE SULFATE 1% OPHTH SOLN 2ML BTL SL PRN ×2 (17:39→20:20)
[2023-05-07] MEDS: LORazepam 2 MG/ML 1ML VIAL IV PRN ×4 (17:40→23:57)
[2023-05-08] MEDS: MORPHINE SULF IN 0.9% NACL 100 MG in IV 1 EA IV SCH ×2 (00:39)
[2023-05-08] MEDS: LORazepam 2 MG/ML 1ML VIAL IV PRN ×2 (03:29→06:05)
[2023-05-08] MEDS: ATROPINE SULFATE 1% OPHTH SOLN 2ML BTL SL PRN ×2 (06:05→08:26)
[2023-05-08] MEDS: SCOPOLAMINE 1MG TRANSDERMAL PATCH TOP SCH (08:25)
== END 2023-05-08 10:30 | disposition expired | DRG 871 ==
LOC: M ED 14:18 → EDBD 14:18 → M ED INP 16:55 → ENRESERV 20:44 → M MSPAV 21:23
PROVIDERS: ADMIT General Practice; ATTEND Family Medicine
DX: A41.9 Sepsis, unspecified organism (principal); J15.6 Pneumonia due to other Gram-negative bacteria; J96.01 Acute respiratory failure with hypoxia; G93.41 Metabolic encephalopathy; I50.32 Chronic diastolic (congestive) heart failure; L97.929 Non-pressure chronic ulcer of unspecified part of left lower leg with unspecified severity; I13.0 Hypertensive heart and chronic kidney disease with heart failure and stage 1 through stage 4 chronic kidney disease, or unspecified chronic kidney disease; J44.0 Chronic obstructive pulmonary disease with (acute) lower respiratory infection; J44.1 Chronic obstructive pulmonary disease with (acute) exacerbation; Z66 Do not resuscitate; N18.30 Chronic kidney disease, stage 3 unspecified; M54.9 Dorsalgia, unspecified; G89.29 Other chronic pain; E66.01 Morbid (severe) obesity due to excess calories; K75.81 Nonalcoholic steatohepatitis (NASH); S01.112A Laceration without foreign body of left eyelid and periocular area, initial encounter; W06.XXXA Fall from bed, initial encounter; Y92.9 Unspecified place or not applicable; K21.9 Gastro-esophageal reflux disease without esophagitis; E78.5 Hyperlipidemia, unspecified; E03.9 Hypothyroidism, unspecified; G47.00 Insomnia, unspecified; D50.9 Iron deficiency anemia, unspecified; I87.8 Other specified disorders of veins; I73.9 Peripheral vascular disease, unspecified; F41.9 Anxiety disorder, unspecified; K59.09 Other constipation; M81.0 Age-related osteoporosis without current pathological fracture; E11.622 Type 2 diabetes mellitus with other skin ulcer; E11.22 Type 2 diabetes mellitus with diabetic chronic kidney disease; E11.649 Type 2 diabetes mellitus with hypoglycemia without coma; E11.51 Type 2 diabetes mellitus with diabetic peripheral angiopathy without gangrene; G47.33 Obstructive sleep apnea (adult) (pediatric); G25.81 Restless legs syndrome; E21.3 Hyperparathyroidism, unspecified; Z90.49 Acquired absence of other specified parts of digestive tract; Z90.79 Acquired absence of other genital organ(s); Z79.82 Long term (current) use of aspirin; Z79.2 Long term (current) use of antibiotics; Z79.4 Long term (current) use of insulin; Z79.890 Hormone replacement therapy; Z79.891 Long term (current) use of opiate analgesic; Z79.899 Other long term (current) drug therapy; Z88.0 Allergy status to penicillin; Z88.6 Allergy status to analgesic agent; Z88.8 Allergy status to other drugs, medicaments and biological substances

== ENCOUNTER → 2023-05-07 | Outpatient (REF) | payer MEDICARE, MEDICAID ==
[~2023-05-07] MED LIST changes: +ALLE1TAB23 PO; +BUPR300T92 PO; +CLEO300C2 PO; +CLOB5CR TOP; +MIRA3350 PO; +OYST500T92 PO; +SENN1TAB41 PO
== END ==
LOC: SKLAB5 13:50
PROVIDERS: ATTEND Nurse Practitioner Adult Health
DX: N18.9 Chronic kidney disease, unspecified (principal); Z53.8 Procedure and treatment not carried out for other reasons